=== PATIENT | male | born 1950 | race Caucasian/White ===

== ENCOUNTER 2018-06-22 08:58 | Emergency (ER) | payer MEDICARE ==
[~2018-06-22] VITALS: Ht 177.8 cm; Wt 89.4 kg
--- OUTSIDE RECORDS SUMMARY | ~2018-06-22 | XMS | Encounter Summary ---
Demographics + + + | Address | [address] | | | [place] [address] | + + + | Home Phone | | + + + | Preferred Language | Unknown | + + + | Marital Status | Single | + + + | Spiritism Affiliation | Unknown | + + + | Race | Unknown | + + + | Ethnic Group | Unknown | + + + Author + + + | Author | [facility] | | | and Jadenana | + + + | Organization | [facility] | | | and Jadenana | + + + | Address | Unknown | + + + | Phone | Unavailable | + + + Support + + +---------+ + | Name | Relationship | Address | Phone | + + +---------+ + | Triny Wu | ECON | Unknown | | + + +---------+ + Care Team Providers + +------+ + | Care Strap Cutter Name | Role | Phone | + +------+ + | Lexie Cagle | PCP | | | CHAINSTITCH FELLED SEAM OPERATOR | | | + +------+ + Reason for Visit Auth/Cert +--------+--------+ + + + + | Status | Reason | Specialty | Diagnoses / | Referred By | Referred To | | | | | Procedures | Contact | Contact | +--------+--------+ + + + + | | | | Diagnoses | | Dom, | | | | | Neurogenic | | Michael Tidwell, | | | | | bladder | | MD Padmini ARNOLD | | | | | (N31.9) | | [address] [place] | | | | | Procedures | | [place] | | | | | [place] | | [address] Phone: | | | | | INCISE/DRAIN | | [phone] | | | | | BLADDER | | Fax: | | | | | | | [phone] | +--------+--------+ + + + + Encounter Details +--------+ + + + + | Date | Type | Department | Care Team | Description | +--------+ + + + + | 06/20/ | Anesthesia | [facility] | Demarcus Veloz MD | | | 2019 | Event | [facility] | [address] | | | | | [address] | [place] | | | | | [place]CI[place] | [address] | | | | | [address] | | | | | | [phone] | | | +--------+ + + + + Anesthesia Record + + + + + | Procedure Name | Responsible | Anesthesia Start | Anesthesia Stop Time | | | Anesthesiologist | Time | | + + + + + | Cystoscopy, | Demarcus Veloz MD | 06/20/1816 | 06/20/18 0949 | | suprapubic catheter | | | | | placement (N/A | | | | | Bladder) | | | | + + + + + +----+---+ + + | Da | T | Event | Comment | | te | i | | | | | m | | | | | e | | | +----+---+ + + | 03 | 0 | An Checkout | Pre-use anesthesia machine/equipment checkout. | | /2 | 9 | | | | 7/ | 1 | | | | 20 | 6 | | | | 19 | | | | +----+---+ + + | | 0 | An Start | | | | 9 | Data | | | | 1 | | | | | 6 | | | +----+---+ + + | | 0 | An Start | Reassessment prior to anesthesia induction/procedure. | | | 9 | | | | | 1 | | | | | 6 | | | +----+---+ + + | | 0 | Antibiotic | | | | 9 | Given | | | | 1 | | | | | 6 | | | +----+---+ + + | | 0 | Preoxygenat | | | | 9 | ed | | | | 1 | | | | | 8 | | | +----+---+ + + | | 0 | An | | | | 9 | Induction | | | | 2 | | | | | 0 | | | +----+---+ + + | | 0 | An | | | | 9 | Intubation | | | | 2 | | | | | 1 | | | +----+---+ + + | | 0 | First | | | | 9 | Inc/Proc St | | | | 3 | | | | | 3 | | | +----+---+ + + | | 0 | Pre-Procedu | | | | 9 | ral Timeout | | | | 3 | Completed | | | | 5 | | | +----+---+ + + | | 0 | Breathing | | | | 9 | Spontaneous | | | | 3 | ly | | | | 8 | | | +----+---+ + + | | 0 | Extubated | | | | 9 | Deep | | | | 4 | | | | | 6 | | | +----+---+ + + | | 0 | an stop | | | | 9 | data | | | | 4 | | | | | 6 | | | +----+---+ + + | | 0 | An Stop | Patient handed off to recovery nurse. | | | 4 | | | | | 9 | | | +----+---+ + + +------+ | Meds | +------+ + +---------+ | Name | Total | + +---------+ | ondansetron | 4 mg | + +---------+ | dexamethasone | 10 mg | + +---------+ | fentaNYL injection (2 mL) | 100 mcg | + +---------+ | ceFAZolin | 2 g | + +---------+ | lactated ringers (LR) infusion | 0 mL | + +---------+ + + | Name | + + | N2O Flow Rate (L/Min) | + + | O2 Flow Rate (L/Min) | + + | Insp O2 | + + | Exp SEV | + + | Air Flow Rate (L/Min) | + + + + | No blood administrations on file. | + + +--------+ + + + | Type | Details | Placement | Removal | +--------+ + + + | Urethr | 04/19/18; 1338; indicated due to | 04/19/181338 by | | | al | specific surgical procedure; | Yaz Ayala RN | | | Cathet | Smallest Catheter, Perineum | | | | er | cleaned, Second person present; | | | | | All elements; Bag positioned | | | | | below the bladder; indwelling | | | | | single lumen catheter; latex; 18; | | | | | None; 1; 10; 10; other (see | | | | | comments) (Patient under general | | | | | anesthesia); drainage bag to | | | | | dependent drainage | | | +--------+ + + + | Urethr | 06/20/18; 924; indicated due to | 06/20/18924 by | | | al | specific surgical procedure; All | Misael Lee RN | | | Cathet | elements; All elements; All | | | | er | elements; indwelling double lumen | | | | | catheter; latex; 16; None; 1; | | | | | 10; 10; other (see comments); | | | | | drainage bag to dependent | | | | | drainage; GENERAL ANEST | | | +--------+ + + + | Wound | 06/20/18; 953; Incision; | 03/27/19 0954 by | | | | Bilateral; abdomen | Misael Lee RN | | +--------+ + + + | Periph | 06/20/18; 0837; Right; Forearm; | 06/20/18 0837 by | 06/20/18 1140 by | | eral | [id number]-mxc-[id number] catheter system; | Cate De Paz RN | Ramirez Hirsch RN | | IV | 20 gauge; 1; upper forearm; | | | | | distraction, intradermal | | | | | injection, tolerated well, | | | | | appears comfortable; 06/20/18; | | | | | 1140 | | | +--------+ + + + | Airway | Placement Date: 06/20/18; | 06/20/18920 by | 06/20/18945 by | | | Placement Time: 920 (created via | Demarcus Veloz MD | Demarcus Veloz MD | | | procedure documentation); | | | | | Attempts: 1; Airway Type: | | | | | laryngeal mask; Size: 4; Trauma: | | | | | none; Placement Check: exhaled | | | | | CO2 detection device, bilateral | | | | | chest rise; Removal Date: | | | | | 06/20/18; Removal Time: 945 | | | +--------+ + + + in this encounter Social History + +-------+ +--------+------+ | Tobacco [...] + +---------+ + | Alcohol Use | Drinks/We | oz/Week | Comments | | | ek | | | + + +---------+ + | No | | | | + + +---------+ + + + + | Sex Assigned at | Date Recorded | | | | + + + | Not on file | | + + + as of this encounter Plan of Treatment +--------+---------+ + + + | Date | Type | Specialty | Care Team | Description | +--------+---------+ + + + | 07/04/ | Office | Urology | Michael Fernandes | | | 2018 | Visit | | [address] | | | | | | [place] | | | | | | [id number] | | | | | | | | +--------+---------+ + + + | 07/04/ | Office | Internal Medicine | Lexie Cagle | | | 2018 | Visit | | [address] | | | | | | [place] [address] | | | | | | [place] [address] | | | | | | [phone] | | | | | | | | +--------+---------+ + + + as of this encounter Results Anesthesia Airway Note (06/20/2018 0929) + + + | Narrative | Performed At | + + + | Demarcus Veloz MD 06/20/2018 9:31 Anesthesia Airway | | | Placement 06/20/2018 9:21 Preprocedure check: patient identified, | | | oxygen, airway assessed, patient reassessment prior to induction, | | | airway equipment checked and suction Attempts: 1 Airway type: | | | laryngeal mask Size: 4 Cuffed: cuffed Trauma: none Tube placement | | | verification: bilateral chest rise and carbon dioxide detection | | | Performing provider: DEMARCUS VELOZ Electronically Signed by: | | | Demarcus Veloz | | | MD Esparzag | | | date/time: 06/20/2018 9:29 | | + + + + + | Procedure Note | + + | Demarcus Veloz MD - 06/20/2018 0929 PDT Anesthesia Airway Placement06/20/2018 | | 9:21Preprocedure check: patient identified, oxygen, airway assessed, patient | | reassessment prior to induction, airway equipment checked and suctionAttempts: 1Airway | | type: laryngeal maskSize: 4Cuffed: cuffedTrauma: noneTube placement verification: | | bilateral chest rise and carbon dioxide detectionPerforming provider: DEMARCUS VELOZ | | WElectronically Signed by: MD Sherice Mack date/time: | | 06/20/2018 9:29 | |Cuffed: cuffed | |Trauma: none | |Tube placement verification: bilateral chest rise and carbon dioxide detection | |Performing provider: DEMARCUS VELOZ | | | | | |Electronically Signed by: MD Sherice Mack date/time: 06/20 9:29 | | | + + in this encounter Visit Diagnoses Not on filein this encounter Administered Medications + +--------+ +------+------+------+ | Medication Order | MAR | Action | Dose | Rate | Site | | | Action | Date | | | | + +--------+ +------+------+------+ | ceFAZolin (ANCEF, KEFZOL) | Given | | 2 g | | | | injection Intravenous, PRN, | | 9 9:16 | | | | | Starting 06/20/18 at 0916, | | PDT | | | | | Anesthesia Intra-op | | | | | | + +--------+ +------+------+------+ +---+---+ | | | +---+---+ + +-------+ +-------+---+---+ | dexamethasone (PF) 10 mg/mL | Given | | 10 mg | | | | injection Intravenous, PRN, | | 9 9:28 | | | | | Starting 06/20/18 at 0928, | | PDT | | | | | Anesthesia Intra-op | | | | | | + +-------+ +-------+---+---+ +---+---+ | | | +---+---+ + +-------+ +---------+---+---+ | fentaNYL (PF) injection | Given | | 100 mcg | | | | Intravenous, PRN, Pain, Starting | | 9 9:27 | | | | | 06/20/18 at 0927, Anesthesia | | PDT | | | | | Intra-op | | | | | | + +-------+ +---------+---+---+ +---+---+ | | | +---+---+ + +---------+ +---+---+---+ | lactated ringers (LR) infusion | New Bag | | | | | | at 10-100 mL/hr, Intravenous, | | 9 9:16 | | | | | CONTINUOUS, Starting Mon06/20/18 | | PDT | | | | | at 0900, TKO. | | | | | | + +---------+ +---+---+---+ +---+---+ | | | +---+---+ + +-------+ +------+---+---+ | ondansetron (ZOFRAN) injection | Given | | 4 mg | | | | Intravenous, PRN, Nausea, | | 9 9:28 | | | | | Vomiting, Starting Mon06/20/18 at | | PDT | | | | | 0928, Anesthesia Intra-op | | | | | | + +-------+ +------+---+---+ +---+---+ | | | +---+---+ in this encounter"
--- OUTSIDE RECORDS SUMMARY | ~2018-06-22 | XMS | Encounter Summary ---
Demographics + + + | Address | [address] | | | [place] [address] | + + + | Home Phone | | + + + | Preferred Language | Unknown | + + + | Marital Status | Single | + + + | Worship Affiliation | Unknown | + + + | Race | Unknown | + + + | Ethnic Group | Unknown | + + + Author + + + | Author | [facility] | | | and Jadenana | + + + | Organization | [facility] | | | and Jadenana [...] Team Providers + +------+ + | Care Design Engineer Products Name | Role | Phone | + +------+ + | No, Physician | PCP | Unavailable | + +------+ + Encounter Details +--------+ + + + + | Date | Type | Department | Care Team | Description | +--------+ + + + + | 04/09/ | Episode | [facility] | Manju Mccartney | | | 2019 | Changes | [address] | | | | | [place] | | | | | | [address] | | | | | | [phone] | | | +--------+ + + + [...] [place] | | | | | | [id number] | | | | | | | | +--------+---------+ + + + | 07/04/ | Office | Internal Medicine | Lexie Cagle | | | 2018 | Visit | | [address] | | | | | | [place] | | | | | | [place] [address] | | | | | | [phone] | | | | | | | | +--------+---------+ + + + as of this encounter Visit Diagnoses Not on filein this encounter"
--- OUTSIDE RECORDS SUMMARY | ~2018-06-22 | XMS | Encounter Summary ---
Demographics + + + | Address | [address] | | | [place] [address] | + + + | Home Phone | | + + + | Preferred Language | Unknown | + + + | Marital Status | Single | + + + | Alevism Affiliation | Unknown | + + + | Race | Unknown | + + + | Ethnic Group | Unknown | + + + Author + + + | Author | [facility] | | | and Jadenana | + + + | Organization | [facility] | | | and Jadenana [...] Team Providers + +------+ + | Care Rolfer Name | Role | Phone | + +------+ + | Lexie Cagle | PCP | | | ENROLLMENT MANAGEMENT VICE PRESIDENT | | | + +------+ + Reason for Visit + + + | Reason | Comments | + + + | Surgery Appointment | | + + + Encounter Details +--------+ + + + + | Date | Type | Department | Care Team | Description | +--------+ + + + + | 05/02/ | Telephone | [facility] | Michael Fernandes | Surgery Appointment | | 2019 | | [address] | MD [address] | | | | | [place], [place] | [place], [place] | | | | | [address] | [address] | | | | | [phone] | | | +--------+ + + + [...] Description | +--------+---------+ + + + | // | Office | Urology | Spendlove, Michael | | | 2018 | Visit | | MD [address] | | | | | | [place] | | | | | | [address] | | | | | | | | +--------+---------+ + + + | 07/04/ | Office | Internal Medicine | Lexie Cagle | | | 2018 | Visit | | [address] | | | | | | [place] | | | | | | [place] [address] | | | | | | [phone] | | | | | | | | +--------+---------+ + + + as of this encounter Visit Diagnoses Not on filein this encounter"
--- OUTSIDE RECORDS SUMMARY | ~2018-06-22 | XMS | Encounter Summary ---
Demographics + + + | Address | [address] | | | [place] [address] | + + + | Home Phone | | + + + | Preferred Language | Unknown | + + + | Marital Status | Single | + + + | Spiritism Affiliation | Unknown | + + + | Race | Unknown | + + + | Ethnic Group | Unknown | + + + Author + + + | Author | [facility] | | | and Jadenana | + + + | Organization | [facility] | | | and Jadenana [...] Team Providers + +------+ + | Care Curing Room Worker Name | Role | Phone | + +------+ + | Lexie Cagle | PCP | | | SUPERINTENDENT LAUNDRY | | | + +------+ + Reason for Visit + + + | Reason | Comments | + + + | Post-op Question | | + + + Encounter Details +--------+ + + + + | Date | Type | Department | Care Team | Description | +--------+ + + + + | 04/23/ | Telephone | [facility] | Michael Fernandes | Post-op Question | | 2019 | | [address] | MD [address] | | | | | [place], [place] | [facility], [place] | | | | | [address] | [address] | | | | | [phone] | | | +--------+ + + + [...] Urology | Michael Fernandes | | | 2019 | Visit | | MD [address] | | | | | | [place] | | | | | | [address] | | | | | | | | +--------+---------+ + + + | 07/04/ | Office | Internal Medicine | Lexie Cagle | | | 2018 | Visit | | [address] | | | | | | [place] | | | | | | [place] [address] | | | | | | [phone] | | | | | | | | +--------+---------+ + + + as of this encounter Visit Diagnoses Not on filein this encounter"
--- OUTSIDE RECORDS SUMMARY | ~2018-06-22 | XMS | Encounter Summary ---
Demographics + + + | Address | [address] | | | [place] [address] | + + + | Home Phone | | + + + | Preferred Language | Unknown | + + + | Marital Status | Single | + + + | Voodoo Affiliation | CONFUCIANIST | + + + | Race | White | + + + | Ethnic Group | Not or | + + + Author + + + | Author | [facility] | + + + | Organization | [facility] | + + + | Address | Unknown | + + + | Phone | Unavailable | + + + Support + + +---------+ + | Name | Relationship | Address | Phone | + + +---------+ + | Theodore Marquez | ECON | Unknown | | + + +---------+ + Care Team Providers + +------+ + | Care Operations Support Manager Name | Role | Phone | + +------+ + | Jose Hameed MD | PCP | | + +------+ + Reason for Visit + + + | Reason | Comments | + + + | Scheduling | | + + + Encounter Details +--------+ + + + + | Date | Type | Department | Care Team | Description | +--------+ + + + + | 05/03/ | Telephone | Hematology/Medical | [place], | Scheduling | | 2019 | | [facility]cology at [place] | MD Colleen Nguyen | | | | | [facility] | [address] [place], | | | | | [address] | [place] [address] | | | | | Mailcode: [id number] | [phone] | | | | | [facility] | | | | | | and | | | | | | [place], [place] | | | | | | [address] | | | | | | [phone] | | | +--------+ + + + [...] | +--------+ + + + + | 07/25/ | Office | Neurology | Christian Maldonado MD | | | 2019 | Visit | | [address] | | | | | | [place], | | | | | | [place] [address] | | | | | | [phone] | | | | | | | | +--------+ + + + + | 09/21/ | Office | Ophthalmology | Ethel Romo MD | | | 2018 | Visit | | [address] | | | | | | [place] | | | | | | [address] | | | | | | [phone] | | | | | | | | +--------+ + + + + | 11/20/ | Appointment | Hematology & | Lucho Pittman [address] | | | 2019 | | Oncology | [place] | | | | | | [place] [address] | | +--------+ + + + + as of this encounter Visit Diagnoses Not on filein this encounter"
--- OUTSIDE RECORDS SUMMARY | ~2018-06-22 | XMS | Encounter Summary ---
Demographics + + + | Address | [address] | | | [place] [address] | + + + | Home Phone | | + + + | Preferred Language | Unknown | + + + | Marital Status | Single | + + + | Sikh Affiliation | Unknown | + + + | Race | Unknown | + + + | Ethnic Group | Unknown | + + + Author + + + | Author | [facility] | | | and Jadenana | + + + | Organization | [facility] | | | and [...] Team Providers + +------+ + | Care Sql Programmer Name | Role | Phone | + +------+ + | Lexie Cagle | PCP | | | PERSONAL SECRETARY | | | + +------+ + Reason for Visit + + + | Reason | Comments | + + + | Lab Order | | + + + Encounter Details +--------+ + + + + | Date | Type | Department | Care Team | Description | +--------+ + + + + | 06/01/ | Telephone | [facility] [place] [facility] | Lexie Cagle | Lab Order | | 2019 | | MEDICINE [address] | Arleen PERSONAL SECRETARY [address] | | | | | [address] [place] | [address] [place] | | | | | [place] [address] | [place] [address] | | | | | [phone] | [phone] | | | | | | | [...] | 2018 | Visit | | MD [address]admin[address] | | | | | | ST [place] | | | | | | [address] | | | | | | | | +--------+---------+ + + + | 07/04/ | Office | Internal Medicine | Lexie Cagle | | | 2019 | Visit | | [address] | | | | | | [place] | | | | | | [place] [address] | | | | | | [phone] | | | | | | | | +--------+---------+ + + + as of this encounter Visit Diagnoses Not on filein this encounter"
--- OUTSIDE RECORDS SUMMARY | ~2018-06-22 | XMS | Encounter Summary ---
Demographics + + + | Address | [address] | | | [place] [address] | + + + | Home Phone | | + + + | Preferred Language | Unknown | + + + | Marital Status | Single | + + + | Mu-Ism Affiliation | Unknown | + + + | Race | Unknown | + + + | Ethnic Group | Unknown | + + + Author + + + | Author | [facility] | | | and Jadenana | + + + | Organization | [facility] | | | and Jadenana [...] Team Providers + +------+ + | Care Logistics Engineering Manager Name | Role | Phone | + +------+ + | Lexie Cagle | PCP | | | LEAD JAVA SOFTWARE ENGINEER | | | + +------+ + Encounter Details +--------+ + + + + | Date | Type | Department | Care Team | Description | +--------+ + + + + | 06/20/ | Procedure | [facility] | | | | 2018 | Pass | [facility] | | | | | | [address] | | | | | | [place] | | | | | | [address] | | | | | | [phone] | | | +--------+ + + + [...] [place] | | | | | | [address] | | | | | | | | +--------+---------+ + + + | 07/04/ | Office | Internal Medicine | Lexie Cagle | | | 2018 | Visit | | [address] | | | | | | [place] | | | | | | [place] [address] | | | | | | [phone] | | | | | | | | +--------+---------+ + + + as of this encounter Visit Diagnoses Not on filein this encounter"
--- OUTSIDE RECORDS SUMMARY | ~2018-06-22 | XMS | Encounter Summary ---
Demographics + + + | Address | [address] | | | [place] [address] | + + + | Home Phone | | + + + | Preferred Language | Unknown | + + + | Marital Status | Single | + + + | Mandaen Affiliation | Unknown | + + + | Race | Unknown | + + + | Ethnic Group | Unknown | + + + Author + + + | Author | [facility] | | | and Jaden[place] | + + + | Organization | [facility] [...] Team Providers + +------+ + | Care Contracting Support Specialist Name | Role | Phone | + +------+ + | Lexie Cagle | PCP | | | CONCERT SINGER | | | + +------+ + Reason for Visit + + + | Reason | Comments | + + + | Follow-up | | + + + | Neurogenic Bladder | | + + + Encounter Details +--------+---------+ + + + | Date | Type | Department | Care Team | Description | +--------+---------+ + + + | 06/07/ | Office | [facility] UROLOGY | Michael Fernandes | Pyuria (Primary Dx); | | 2018 | Visit | [address] | MD Yaw [address] | Neurogenic bladder; | | | | [place], [place] | [place], [place] | Urinary | | | | [address] | [address] | incontinence without | | | | [phone] | | sensory awareness | +--------+---------+ + [...] + + + as of this encounter Last Filed Vital Signs + + + + | Vital Sign | Reading | Time Taken | + + + + | Blood Pressure | 122/60 | 06/07/2018 1352 PDT | + + + + | Pulse | - | - | + + + + | Temperature | - | - | + + + + | Respiratory Rate | - | - | + + + + | Oxygen Saturation | - | - | + + + + | Inhaled Oxygen | - | - | | Concentration | | | + + + + | Weight | 90.5 kg (199 lb 8.3 | 06/07/2018 1352 PDT | | | oz) | | + + + + | Height | 177.8 cm (5' 10") | 06/07/2018 1352 PDT | + + + + | Body Mass Index | 28.63 | 06/07/2018 1352 PDT | + + + + in this encounter Instructions Patient Instructions - Manju Mccartney RN - 06/07/2018 1330 PDTPreoperative Instruction s Your surgery with Dr. Fernandes has been scheduled for June 20, 2018 at 10:45 AM at [facility]. Please report to the Surgery and [...] you home after surgery. Call us at [phone] with any questions. [x] Pain management booklet provided to patient. in this encounter Progress Notes Michael Fernandes MD - 06/07/2018 1330 PDTFormatting of this note may be different fr om the original. Chief Complaint Patient presents with [...] bulking agent; Surgeon: Gina Fernandes MD; Location: [facility] MAIN OR GASTRIC BYPASS SURGERY 2001 2 x KNEE SURGERY Bilateral LAP BAND 2010 urinary stimulator 2005 Family History: Family History Problem Relation Age [...] UA, POC Negative Negative, 100 mg/dL Specific [place], UA, POC 1.020 1.001 - 1.030 Blood, [...] have not thoroughly proofread this note, and aitchbone breaker errors are very likely to occur. CC: Lexie Cagle APRN in this encounter Plan of Treatment +--------+---------+ + + + | Date | Type | Specialty | Care Team | Description | +--------+---------+ + + + | 07/04/ | Office | Urology | Michael Fernandes | | | 2018 | Visit | | MD Yaw [address] [place] [address] | | | | | | [place], [place] | | | | | | [address] | | | | | | | | +--------+---------+ + + + | 07/04/ | Office | Internal Medicine | Lexie Cagle | | | 2018 | Visit | | [address] | | | | | | [address] | | | | | | [place] [address] | | | | | | [phone] | | | | | | | | +--------+---------+ + + + as of this encounter Procedures + +--------+ + + + | Procedure Name | Priori | Date/Time | Associated Diagnosis | Comments | | | ty | | | | + +--------+ + + + | POCT URINALYSIS | Routin | 06/07/2018 | Pyuria | Results for this | | | e | 1354 PDT | | procedure are in the | | | | | | results section. | + +--------+ + + + | URINALYSIS, | AMPARO | 06/07/2018 | Pyuria | Results for this | | MICROSCOPIC ONLY, | | 1353 PDT | | procedure are in the | | WITH CULTURE IF | | | | results section. | | INDICATED | | | | | + +--------+ + + + in this encounter Results POCT Urinalysis Dipstick Automated (06/07/2018 1354) + + + + + | Component | Value | Ref Range | Performed At | + + + + + | Color, UA, POC | Dark Yellow (A) | Yellow, Light Yellow | | + + + + + | Clarity, UA, POC | Slightly Cloudy | | | + + + + + | Glucose, UA, POC | Negative | Negative | | + + + + + | Bilirubin, UA, POC | Negative | Negative | | + + + + + | Ketones, UA, POC | Negative | Negative, 100 mg/dL | | + + + + + | Specific [place], | 1.020 | 1.001 - 1.030 | | | UA, POC | | | | + + + + + | Blood, UA, POC | Negative | Negative | | + + + + + | pH, UA, POC | 5.5 | 5.0, 6.0, 7.0, 8.0, | | | | | 5.5, 6.5, 7.5 | | + + + + + | Protein, UA, POC | Negative | Negative | | + + + + + | Urobilinogen, UA, | 0.2 | 0.2, Negative, | | | POC | | Normal, < 0.2 mg/dL, | | | | | 1 mg/dL, < 0.2 | | | | | E.U./dl, 1.0 | | | | | E.U./dL, 0.2 mg/dL | | + + + + + | Nitrite, UA, POC | Positive (A) | Negative | | + + + + + | Leukocyte Esterase, | Trace (A) | Negative | | | UA, POC | | | | + + + + + | Reducing Substances, | | | | | Urine | | | | + + + + + | Ictotest | | Negative | | + + + + + | Remark | | | | + + + + + + + | Specimen | + + | Urine | + + Urinalysis, Microscopic Only, with Culture if Indicated (06/07/20181352) + + + + + | Component | Value | Ref Range | Performed At | + + + + + | WBC UA | 5-10 (A) | 0 - 2 /HPF | [facility] | | [facility] - | | | | | [facility] | + + + + + | RBC UA | 0-2 | 0 - 2 /HPF | [facility] | | | | | [facility] | + + + + + | SQUAMOUS EPITHELIAL | 0-2 | 0 - 2 /LPF | [facility] | | UA | | | [facility] | | | | | [facility] | + + + + + | BACTERIA UA | 4+ (A) | Negative /HPF | [facility] | | | | [facility] | [facility] | | | | | [facility] | + + + + + | HYALINE CASTS UA | 0-2 | 0 - 2 /LPF | [facility] - | | | | | [facility] | + + + + + | URINE COMMENT | Urine Culture Not | | [facility] | | | Indicated | | [facility] | [facility] - | | | | | [facility] | + + + + + + + | Specimen | + + | Urine - Urine, Clean | | Catch | + + + + + + + | Performing | Address | City/State/Zipcode | Phone Number | | Organization | | | | + + + + + | [facility] | [address] | [place] | [phone] | | [facility] | | [address] | | | - LABORATORY | | | | + + + + + in this encounter Visit Diagnoses + + | Diagnosis | + + | Pyuria - Primary | + + | Other nonspecific finding on examination of urine | + + | Neurogenic bladder | + + | Neurogenic bladder, NOS | + + | Urinary incontinence without sensory awareness | + + | Incontinence without sensory awareness | + +
--- OUTSIDE RECORDS SUMMARY | ~2018-06-22 | XMS | Encounter Summary ---
Demographics + + + | Address | [address] | | | [place] [address] | + + + | Home Phone | | + + + | Preferred Language | Unknown | + + + | Marital Status | Single | + + + | Amish Affiliation | DRUZE | + + + | Race | White | + + + | Ethnic Group | Not or | + + + Author + + + | Author | [facility] | + + + | Organization | [facility] | + + + | Address | Unknown | + + + | Phone | Unavailable | + + + Support + + +---------+ + | Name | Relationship | Address | Phone | + + +---------+ + | Theodore Marquez | ECON | Unknown | | + + +---------+ + Care Team Providers + +------+ + | Care Base Filler Operator Name | Role | Phone | + +------+ + | Jose Hameed MD | PCP | | + +------+ + Reason for Visit + + + | Reason | Comments | + + + | Immunotherapy | Ocrevus | + + + Encounter Details +--------+ + + + + | Date | Type | Department | Care Team | Description | +--------+ + + + + | 06/05/ | Hospital | Hematology/Medical | [address], [address] | | | 2019 | Encounter | Oncology at [facility] | Martín James [place], | | | | | [address] | [place] [address] | | | | | Mailcode: CH7M | | | | | | [facility] | | | | | | and Healing, 7th | | | | | | Floor [place], [place] | | | | | | [address] | | | | | | [phone] | | | +--------+ + + + [...] + + + | Blood Pressure | 136/90 | 06/05/2018 3:25 PM PDT | + + + + | Pulse | 78 | 06/05/2018 3:25 PM PDT | + + + + | Temperature | 37.3 C (99.2 F) | 06/05/2018 3:25 PM PDT | + + + + | Respiratory Rate | 14 | 06/05/2018 2:18 PM PDT | + + + + | Oxygen Saturation | 96% | 06/05/2018 3:25 PM PDT | + + + + | Inhaled Oxygen | - | - | | Concentration | | | + + + + | Weight | 88.6 kg (195 lb 4.8 | 06/05/2018 10:30 AM PDT | | | oz) | | + + + + | Height | - | - | + + + + | Body Mass Index | 28.02 | 06/05/2018 10:30 AM PDT | + + + + in this encounter Medications at Time of Discharge + + +---------+---------+ + + | Medication | Sig. | Disp. | Refills | Start | End Date | | | | | | Date | | + + +---------+---------+ + + | Cholecalciferol, | Take 5,000 Units by | | | | | | Vitamin D3, (VITAMIN | mouth once daily. | | | | | | D3) 5,000 unit oral | | | | | | | tablet | | | | | | + + +---------+---------+ + + | cyanocobalamin | Inject into the | | | 12/24/19 | | | 1,000 mcg/mL | muscle (IM). | | | 14 | | | injection solution | | | | | | + + +---------+---------+ + + | gabapentin 300 mg | Take 1 capsule by | 90 | 1 | 11/17/19 | | | oral | mouth three times | capsule | | 16 | | | capsuleIndications: | daily. Indications: | | | | | | Neuropathic Pain | NEUROPATHIC PAIN | | | | | + + +---------+---------+ + + | iron sucrose 100 | Every other month | | | 11/13/19 | | | mg iron/5 mL | | | | 15 | | | intravenous solution | | | | | | + + +---------+---------+ + + | metoprolol | Take by mouth two | | | 09/14/19 | | | tartrate 25 mg oral | times daily. | | | 18 | | | tablet | | | | | | + + +---------+---------+ + + | modafinil 200 mg | Take 1 tablet by | 60 | 5 | 05/10/19 | | | oral tablet | mouth two times | tablet | | 18 | | | | daily. | | | | | + + +---------+---------+ + + | NaCl 0.9 % solp | Inject into the | | | | | | 500 mL with iron | vein (IV) once. | | | | | | dextran 100 mg/2 mL | Every 2 months | | | | | | (50 mg/mL) soln | | | | | | + + +---------+---------+ + + | ONABOTULINUMTOXINA | by injection route | | | | | | (BOTOX INJ) | as needed | | | | | | | (neurogenic | | | | | | | bladder). | | | | | + + +---------+---------+ + + | oxyCODONE, | Take 5 mg by mouth | | | | | | immediate release, 5 | every six hours as | | | | | | mg oral tablet | needed. | | | | | + + +---------+---------+ + + | polyethylene | Mix in liquid and | | | 12/28/19 | | | glycol 17 gram/dose | drink. | | | 18 | | | oral powder | | | | | | + + +---------+---------+ + + | rOPINIRole 2 mg | Take 2 mg by mouth | | | 01/17/20 | | | oral tablet | once daily in the | | | 14 | | | | evening. | | | | | + + +---------+---------+ + + | senna (SENNA) 8.6 | Take by mouth. | | | 12/28/19 | | | mg oral tablet | | | | 18 | | + + +---------+---------+ + + | warfarin 5 mg oral | Take 5 mg by mouth | | | 12/13/19 | | | tablet | once daily. | | | 18 | | + + +---------+---------+ + + as of this encounter Progress Notes Екатерина Aldana RN - 06/05/2018 10:21 AM PDTPt here for Q 6 month Ocrevus infusion. Hep B not detected in lab draw 09/19/2016. PIV placed 22a in right forearm; no labs ordered or draw n. Pt reports no s/s of infection such as as fever, chills, antibiotic use. Pt premedicated with IV solumedrol, PO claritin and tylenol. Ocrevus infused with 0.2micron inline filter; t itrated per orders and protocol. VS monitored throughout. Pt tolerated without incident. PIV dc'd intact. Pt Alert & Oriented x3, No acute distress, Mood & affect appropriate and Rece nt & remote memory intact and discharged ambulatory and instructions have been provided. Refer to MAR and Onc Lines and Transfusions doc flowsheet for treatment details. in this encounter Plan of Treatment +--------+ + + + + | Date | Type | Specialty | Care Team | Description | +--------+ + + + + | 07/25/ | Office | Neurology | Mass, Christian, MD | | | 2019 | Visit | | [address] | | | | | | [place], | | | | | | [place] [address] | | | | | | [phone] | | | | | | | | +--------+ + + + + | 09/21/ | Office | Ophthalmology | Ethel Romo MD | | | 2019 | Visit | | [address] | | | | | | [place] | | | | | | [address] | | | | | | [phone] | | | | | | | | +--------+ + + + + | 11/20/ | Appointment | Hematology & | [address], Hem [address] | | | 2018 | | Oncology | [place], | | | | | | [place] [address] | | +--------+ + + + + as of this encounter Visit Diagnoses + + | Diagnosis | + + | Multiple sclerosis (HCC) | + + | Multiple sclerosis | + + Administered Medications + +--------+ +--------+------+------+ | Medication Order | MAR | Action | Dose | Rate | Site | | | Action | Date | | | | + +--------+ +--------+------+------+ | acetaminophen (TYLENOL) tablet | Given | | 650 mg | | | | 650 mg 650 mg, oral, ONCE, 1 | | 9 10:47 | | | | | dose, 06/05/18 at 1030 | | PDT | | | | + +--------+ +--------+------+------+ +---+---+ | | | +---+---+ + +-------+ +-------+---+---+ | loratadine (CLARITIN) tablet 10 | Given | | 10 mg | | | | mg 10 mg, oral, NEEDED, 1 | | 9 10:47 | | | | | dose, Starting Mon06/05/18 at | | PDT | | | | | 1024, Until Mon06/05/18 at 1047, | | | | | | | Give instead of diphenhydrAMINE | | | | | | | 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 | | | | | | + +-------+ +-------+---+---+ +---+---+ | | | +---+---+ + +-------+ +--------+---+---+ | methylPREDNISolone sod succ | Given | | 100 mg | | | | (PF) (SOLU-MEDROL) injection 100 | | 9 10:50 | | | | | mg 100 mg, intravenous, ONCE, 1 | | PDT | | | | | dose, Mon06/05/18 at 1030 | | | | | | + +-------+ +--------+---+---+ +---+---+ | | | +---+---+ + +---------+ +--------+ +---+ | ocrelizumab (OCREVUS) 600 mg in | New Bag | | 600 mg | 40 mL/hr | | | NaCl 0.9 % (NS) IV 600 mg, | | 9 11:34 | | | | | intravenous, ONCE, 1 dose, Tue | | PDT | | | | | 06/05/18 at 1030 | | | | | | + +---------+ +--------+ +---+ +---+---+ | | | +---+---+ in this encounter"
--- OUTSIDE RECORDS SUMMARY | ~2018-06-22 | XMS | Encounter Summary ---
Demographics + + + | Address | [address] | | | [place] [address] | + + + | Home Phone | | + + + | Preferred Language | Unknown | + + + | Marital Status | Single | + + + | Spiritism Affiliation | SPIRITISM | + + + | Race | White | + + + | Ethnic Group | Not or | + + + Author + + + | Author | [facility] | + + + | Organization | [facility] | + + + | Address | Unknown | + + + | Phone | Unavailable | + + + Support + + +---------+ + | Name | Relationship | Address | Phone | + + +---------+ + | Theodore Marquez | ECON | Unknown | | + + +---------+ + Care Team Providers + +------+ + | Care Shot Core Drill Operator Name | Role | Phone | + +------+ + | Jose Hameed MD | PCP | | + +------+ + Encounter Details +--------+ + + + + | Date | Type | Department | Care Team | Description | +--------+ + + + + | 05/03/ | Upset Welding Machine Operator | Hematology/Medical | [place], | | | 2019 | | Oncology at [place] | MD Colleen Nguyen | | | | | for [facility] & Healing | [address] [place], | | | | | [address] | [place] [address] | | | | | Mailcode: CHKatlyn | [phone] | | | | | [facility] | | | | | | and Healing, 7th | | | | | | Floor [place], [place] | | | | | | [address] | | | | | | [phone] | | | +--------+ + + + [...] | Christian Maldonado MD | | | 2018 | Visit | | [address] | | | | | | [place] | | | | | | [place] [address] | | | | | | [phone] | | | | | | | | +--------+ + + + + | 09/21/ | Office | Ophthalmology | Ethel Romo MD | | | 2019 | Visit | | [address] | | | | | | [place], [place] | | | | | | [address] | | | | | | [phone] | | | | | | | | +--------+ + + + + | 11/20/ | Appointment | Hematology & | Otu, Hem [address] | | | 2018 | | Oncology | [place] | | | | | | [place] [address] | | +--------+ + + + + as of this encounter Visit Diagnoses Not on filein this encounter"
--- OUTSIDE RECORDS SUMMARY | ~2018-06-22 | XMS | Encounter Summary ---
Demographics + + + | Address | [address] | | | [place] [address] | + + + | Home Phone | | + + + | Preferred Language | Unknown | + + + | Marital Status | Single | + + + | Christianity Affiliation | Unknown | + + + | Race | Unknown | + + + | Ethnic Group | Unknown | + + + Author + + + | Author | [facility] | | | and Jadenana | + + + | Organization | [facility] | | | and Jadenana [...] Team Providers + +------+ + | Care Shingler Name | Role | Phone | + +------+ + | Lexie Cagle | PCP | | | WELL SHOOTER | | | + +------+ + Reason for Visit + + + | Reason | Comments | + + + | Neurogenic Bladder | | + + + Encounter Details +--------+ + + + + | Date | Type | Department | Care Team | Description | +--------+ + + + + | 04/20/ | Clinical | [facility] | CalvinKendy parsonshua | Neurogenic bladder | | 2019 | Support | [address] | MD [address] | (Primary Dx) | | | | [address] | [facility] [address] | | | | | [address] | [address] | | | | | [phone] | | | +--------+ + + + [...] + + + as of this encounter Progress Rekha Banegas RN - 04/20/2018 1030 PSTPatient presents to clinic for catheter removal PO D #1. Dark yellow clear urine draining into bag. 18F chapa catheter removed without difficul ty. Patient self caths and will do so when he gets home to [place]. Patient denies pain at this time only some irritation of the tip of his penis. Pt will return for post op appointm ent and will call us with any questions or concerns in the meantime......................... ....................Rekha Wilson RN on 04/20/18 at 12:11 in this encounter Plan of Treatment +--------+---------+ + + + | Date | Type | Specialty | Care Team | Description | +--------+---------+ + + + | 07/04/ | Office | Urology | Michael Fernandes | | | 2018 | Visit | | [address] | | | | | [place] | | | | | | [address] | | | | | | | | +--------+---------+ + + + | 07/04/ | Office | Internal Medicine | Lexie Cagle | | | 2018 | Visit | | [address] | | | | | | [address] | | | | | | [place] [address] | | | | | | [phone] | | | | | | | | +--------+---------+ + + + as of this encounter Visit Diagnoses + + | Diagnosis | + + | Neurogenic bladder - Primary | + + | Neurogenic bladder, NOS | + +"
--- OUTSIDE RECORDS SUMMARY | ~2018-06-22 | XMS | Encounter Summary ---
Demographics + + + | Address | [address] | | | [place] [address] | + + + | Home Phone | | + + + | Preferred Language | Unknown | + + + | Marital Status | Single | + + + | Moravian Affiliation | BAPTISM | + + + | Race | White | + + + | Ethnic Group | Not or | + + + Author + + + | Author | [facility] | + + + | Organization | [facility] | + + + | Address | Unknown | + + + | Phone | Unavailable | + + + Support + + +---------+ + | Name | Relationship | Address | Phone | + + +---------+ + | Theodore Marquez | ECON | Unknown | | + + +---------+ + Care Team Providers + +------+ + | Care Professional Organizer Name | Role | Phone | + [...] | 2019 | Encounter | Oncology at [facility] | [address] [place], | | | | | [address] | [place] [address] | | | | | Mailcode: CH7M | | | | | | [facility] | | | | | | and Healing, 7th | | | | | | Floor [place], [place] | | | | | | [address] | | | | | | [phone] | | | +--------+ + + + [...] | | | | | | [place] [address] | | | | | | [phone] | | | | | | | | +--------+ + + + + | 09/21/ | Office | Ophthalmology | Ethel Romo MD | | | 2019 | Visit | | [address] | | | | | | [place] | | | | | | [address] | | | | | | [phone] | | | | | | | | +--------+ + + + + | 11/20/ | Appointment | Hematology & | [address], [address] | | | 2018 | | Oncology | [place], | | | | | | [place] [address] | | +--------+ + + + + [...] | 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
--- OUTSIDE RECORDS SUMMARY | ~2018-06-22 | XMS | Encounter Summary ---
Demographics + + + | Address | [address] | | | [place] [address] | + + + | Home Phone | | + + + | Preferred Language | Unknown | + + + | Marital Status | Single | + + + | Episcopal Affiliation | Unknown | + + + | Race | Unknown | + + + | Ethnic Group | Unknown | + + + Author + + + | Author | [facility] | | | and Jadenana | + + + | Organization | [facility] | | | and [...] Team Providers + +------+ + | Care Nematology Teacher Name | Role | Phone | + +------+ + | Lexie Cagle | PCP | | | TUBING SUPERVISOR | | | + +------+ + [...] [place] | | | | | [place] | | [address] Phone: | | | | | INCISE/DRAIN | | [phone] | | | | | BLADDER | | Fax: | | | | | | | [phone] | +--------+--------+ + + + + Encounter Details +--------+ + + + + | Date | Type | Department | Care Team | Description | +--------+ + + + + | 06/20/ | Hospital | [facility] | Michael Fernandes | Neurogenic bladder; | | 2019 | Encounter | MED CTR OR INTRA OP | MD [address] | Urge incontinence | | | | [address] | [place], [place] | | | | | [place], [place] | [address] | | | | | [address] | | | | | | [phone] | | | +--------+ + + + [...] | Blood Pressure | 127/77 | 06/20/2018 1030 PDT | + + + + | Pulse | 68 | 06/20/20180 PDT | + + + + | Temperature | 36.2 C (97.2 F) | 06/20/2018 0948 PDT | + + + + | Respiratory Rate | 14 | 06/20/20181029 PDT | + + + + | Oxygen Saturation | 97% | 06/20/20181029 PDT | + + + + | Inhaled Oxygen | - | - | | Concentration | | | + + + + | Weight | 90.6 kg (199 lb 11.8 | 06/20/2018731 PDT | | | oz) | | + + + + | Height | 177.8 cm (5' 10") | 06/20/2018731 PDT | + + + + | Body Mass Index | 28.66 | 06/20/2018731 PDT | + + + + in this encounter Discharge Instructions Ramirez Hirsch RN - 06/20/2018Anil/Ashley in the office July 04July shower tomorrow, replace sterile dressings if needed May use leg bagin this encounter Medications at Time of Discharge + + +--------+---------+ + + | Medication | Sig. | Disp. | Refills | Start | End Date | | | | | | Date | | + + +--------+---------+ + + | DULoxetine | Take 90 mg by mouth | | | 03/30/19 | | | (CYMBALTA) [address] | Daily. | | | 19 | | | capsule | | | | | | + + +--------+---------+ + + | Ergocalciferol | daily | | | | | | (VITAMIN D2) 2000 | | | | | | | units TABS | | | | | | + + +--------+---------+ + + | | Take 1-2 tablets by | 15 | 0 | 06/21/19 | | | HYDROcodone-acetamin | mouth every 4 hours | tablet | | 19 | 9 | | ophen (NORCO) 5-325 | as needed for Pain | | | | | | mg per tablet | for up to 3 days. | | | | | + + +--------+---------+ + + | rOPINIRole | Take 1 tablet by | 90 | 1 | 06/02/19 | | | (REQUIP) 2 MG | mouth nightly. | tablet | | 19 | | | tabletIndications: | | | | | | | RLS (restless legs | | | | | | | syndrome) | | | | | | + + +--------+---------+ + + | traZODone | Take 1 tablet by | 30 | 0 | 06/02/19 | | | (DESYREL) 100 mg | mouth nightly. | tablet | | 19 | | | tabletIndications: | | | | | | | Anxiety associated | | | | | | | with depression | | | | | | + + +--------+---------+ + + as of this encounter Plan [...] [place] | | | | | | [id number] | | | | | | | | +--------+---------+ + + + | 07/04/ | Office | Internal Medicine | Lexie Cagle | | | 2019 | Visit | | [address] | | | | | | [address] | | | | | | [place] [address] | | | | | | [phone] | | | | | | | | +--------+---------+ + + + as of this encounter Procedures + +--------+ + + + | Procedure Name | Priori | Date/Time | Associated Diagnosis | Comments | | | ty | | | | + +--------+ + + + | INSERT SUPRAPUBIC | | 06/20/2018 | Neurogenic bladder | | | CATHETER | | 0855 PDT | (N31.9) | | + +--------+ + + + in this encounter Visit Diagnoses + + | Diagnosis | + + | Neurogenic bladder | + + | Neurogenic bladder, NOS | + + | Urge incontinence | + + Admitting Diagnoses + + | Diagnosis | + + | Neurogenic bladder (N31.9) | + + Administered Medications + +--------+---------+------+------+------+ | Medication Order [...] 8 hours after | | | pre-op dose. | | + +---+ | | | [...] or COPD | | | or current smoking. | | + +---+ | | | + +---+ | atropine 0.1 mg/mL syringe 0.5 | | | mg 0.5 mg, Intravenous, PRN, | | | Bradycardia, For HR < 40, | | | Starting 06/20/18 at 0942, For | | | 2 doses, May repeat one time | | | after 1 min. | | + +---+ | | | [...] once | | | blood glucose > 70. | | + +---+ | | | [...] | | | once blood glucose > 70. | | + +---+ | | | + +---+ | ePHEDrine 50 mg/mL injection 5 | | | mg 5 mg, Intravenous, EVERY 5 | | | MIN PRN, if SBP <90., Starting | | | 06/20/18 at 0942, Hold if HR > | | | 100. Maximum total dose 20mg. | | + +---+ | | | + +---+ + +---------+ +-----+-------+---+ | ertapenem (INVanz) 1 g in | New Bag | | 1 g | 100 | | | sodium chloride 0.9% 50 mL IVPB | | 9 11:20 | | mL/hr | | | 1 g, Intravenous, Administer over | | PDT | | | | | 30 Minutes, ONCE, Mon06/20/18 at | | | | | | | 1130, For 1 dose, Activate | | | | | | | system and mix before use. | | | | | | + [...] | hydromorphone if morphine | | | ineffective. | | + +---+ | | | [...] interval. Use | | | Pasero Sedation Scale. | | + +---+ | | | [...] use hydromorphone if morphine | | | ineffective. | | + +---+ | | | [...] | | | Administer with food or snack | | + +---+ | | | [...] interval. Use Pasero | | | Sedation Scale. | | + +---+ | | | + +---+ in this encounter
--- OUTSIDE RECORDS SUMMARY | ~2018-06-22 | XMS | Encounter Summary ---
Demographics + + + | Address | [address] | | | [place] [address] | + + + | Home Phone | | + + + | Preferred Language | Unknown | + + + | Marital Status | Single | + + + | Anglican Affiliation | Unknown | + + + | Race | Unknown | + + + | Ethnic Group | Unknown | + + + Author + + + | Author | [facility] | | | and Jadenana | + + + | Organization | [facility] | | | and Jadenana [...] Team Providers + +------+ + | Care Servicing Manager Name | Role | Phone | + +------+ + | No, Physician | PCP | Unavailable | + +------+ + Encounter Details +--------+ + + + + | Date | Type | Department | Care Team | Description | +--------+ + + + + | 04/19/ | Anesthesia | [facility] | Parker Hendricks | | | 2019 | Event | MED CTR OR INTRA OP | MD Chuckie [address] | | | | | [address] | [address] [place] | | | | | [place] | [address] | | | | | [address] | | | | | | [phone] | | | +--------+ + + + + Anesthesia Record + + + + + | Procedure Name | Responsible | Anesthesia Start | Anesthesia Stop Time | | | Anesthesiologist | Time | | + + + + + | Cystoscopy, bladder | Parker Hendricks, | 04/19/18 1246 | 04/19/18 1353 | | Botox, injection of | MD | | | | urethral bulking | | | | | agent (N/A Bladder) | | | | + + + + + +----+---+ + + | Da | T | Event | Comment | | te | i | | | | | m | | | | | e | | | +----+---+ + + | 01 | 1 | An Checkout | Pre-use anesthesia machine/equipment checkout. | | /2 | 2 | | | | 4/ | 3 | | | | 20 | 1 | | | | 19 | | | | +----+---+ + + | | 1 | An Start | Versed 2 mg IV in SDS 7 then to OR 6 with sedated patient. | | | 2 | | Reassessment prior to anesthesia induction/procedure. | | | 4 | | | | | 6 | | | +----+---+ + + | | 1 | an eneida now | | | | 2 | | | | | 4 | | | | | 7 | | | +----+---+ + + | | 1 | Antibiotic | | | | 2 | Given | | | | 4 | | | | | 8 | | | +----+---+ + + | | 1 | Preoxygenat | | | | 2 | ed | | | | 5 | | | | | 2 | | | +----+---+ + + | | 1 | An | | | | 2 | Induction | | | | 5 | | | | | 5 | | | +----+---+ + + | | 1 | An | | | | 2 | Intubation | | | | 5 | | | | | 6 | | | +----+---+ + + | | 1 | AN Bite | | | | 2 | Block | | | | 5 | | | | | 6 | | | +----+---+ + + | | 1 | [place] | | | | 2 | 43-degrees | | | | 5 | | | | | 8 | | | +----+---+ + + | | 1 | Pre-Procedu | | | | 3 | ral Timeout | | | | 0 | Completed | | | | 1 | | | +----+---+ + + | | 1 | First | | | | 3 | Inc/Proc St | | | | 1 | | | | | 0 | | | +----+---+ + + | | 1 | [place] off | | | | 3 | | | | | 5 | | | | | 1 | | | +----+---+ + + | | 1 | Extubated | | | | 3 | Awake | | | | 5 | | | | | 1 | | | +----+---+ + + | | 1 | An Stop | Patient handed off to recovery nurse. | | | 5 | | | | | 3 | | | +----+---+ + + +------+ | Meds | +------+ + + + | Name | Total | + + + | midazolam | 2 mg | + + + | propofol | 150 mg | + + + | propofol | 196.51 mg | + + + | lidocaine 2% (PF) | 60 mg | + + + | HYDROmorphone | 1.5 mg | + + + | ertapenem (INVanz) 1 g in sodium | 1 g | | chloride 0.9% 50 mL IVPB | | + + + | ePHEDrine (AKOVAZ) injection 50 | 20 mg | | mg/mL | | + + + | lactated ringers (LR) infusion | 400 mL | + + + + + | Name | + + [...] + + + | Urethr | 04/19/18; 1339; indicated due to | 04/19/18 1339 by | | | al | specific [...] +--------+ + + + | Periph | 04/19/18; 1231; Right; | 04/19/18 1231 by | 04/19/18 1513 by Cricket | | eral | Antecubital; [id number] | Bernadette Holland, | Nik Kathleen RN | | IV | catheter system; 20 gauge; | RN | | | | Hematology; 2; left forearm, left | | | | | AC; distraction, intradermal | | | | | injection, tolerated well; | | | | | 04/19/18; 1513 | | | +--------+ + + + | Airway | Placement Date: 04/19/18; | 04/19/18 1256 by | 04/19/18 1351 by | | | Placement Time: 1256; Mask | Parker Hendricks, | Parker Hendricks, | | | Ventilation: EZ; Airway Type: | MD | MD | | | laryngeal mask, non-disposable; | | | | | Size: 5; Tube Reference Point: | | | | | secure and patent; Trauma: none; | | | | | Placement Check: breath sounds | | | | | equal bilaterally, bilateral | | | | | chest rise, exhaled CO2 detection | | | | | device; Removal Date: 04/19/18; | | | | | Removal Time: 1351 | | | +--------+ + + + | Wound | 04/19/18; 1307; Incision; | 04/19/18 1307 by | 04/19/18 1513 by Cricket | | | Bilateral; penis; 04/19/18; 1513 | Yaz Ayala RN | Nik Kathleen RN | +--------+ + + + in this [...] [place] | | | | | | [address] | | | | | | | | +--------+---------+ + + + | 07/04/ | Office | Internal Medicine | Lexie Cagle | | | 2018 | Visit | | [address] | | | | | | [address] | | | | | | [place] [address] | | | | | | [phone] | | | | | | | | +--------+---------+ + + + as of this encounter Visit Diagnoses Not on filein this encounter Administered Medications + +--------+ +-------+------+------+ | Medication Order | MAR | Action | Dose | Rate | Site | | | Action | Date | | | | + +--------+ +-------+------+------+ | ePHEDrine (AKOVAZ) 50 mg/mL | Given | | 10 mg | | | | injection Intravenous, PRN, | | 9 13:10 | | | | | Starting [facility] 04/19/18 at 1312, | | PST | | | | | Anesthesia Intra-op | | | | | | + +--------+ +-------+------+------+ +-------+ +-------+---+---+ | Given | | 10 mg | | | | | 9 13:12 | | | | | | PST | | | | +-------+ +-------+---+---+ +---+---+ | | | +---+---+ + +---------+ +-----+---+---+ | ertapenem (INVanz) 1 g in | New Bag | | 1 g | | | | sodium chloride 0.9% 50 mL IVPB | | 9 12:48 | | | | | 1 g, Intravenous, Administer over | | PST | | | | | 30 Minutes, Prior to Incision, | | | | | | | Starting [facility] 04/19/18 at 0319, For | | | | | | | 1 dose, Activate system and mix | | | | | | | before use. | | | | | | + +---------+ +-----+---+---+ +---+---+ | | | +---+---+ + +-------+ +--------+---+---+ | HYDROmorphone (DILAUDID) 2 | Given | | 0.5 mg | | | | mg/mL injection Intravenous, | | 9 13:00 | | | | | PRN, Pain, Starting [facility] 04/19/18 | | PST | | | | | at 1300, Anesthesia Intra-op | | | | | | + +-------+ +--------+---+---+ +-------+ +--------+---+---+ | Given | | 0.5 mg | | | | | 9 13:23 | | | | | | PST | | | | +-------+ +--------+---+---+ | Given | | 0.5 mg | | | | | 9 13:34 | | | | | | PST | | | | +-------+ +--------+---+---+ +---+---+ | | | +---+---+ + +-------+ +-------+---+---+ | lidocaine (PF) 2% injection | Given | | 60 mg | | | | PRN, Starting [facility] 04/19/18 at | | 9 12:55 | | | | | 1255, Anesthesia Intra-op | | PST | | | | + +-------+ +-------+---+---+ +---+---+ | | | +---+---+ + +-------+ +------+---+---+ | midazolam (VERSED) 1 mg/mL | Given | | 2 mg | | | | injection Intravenous, PRN, | | 9 12:45 | | | | | Anxiety, Starting Jemma 04/19/18 at | | PST | | | | | 1245, Anesthesia Intra-op | | | | | | + +-------+ +------+---+---+ +---+---+ | | | +---+---+ + +-------+ +--------+---+---+ | propofol (DIPRIVAN) injection | Given | | 150 mg | | | | Intravenous, PRN, Starting Jemma | | 9 12:55 | | | | | 04/19/18 at 1255, Anesthesia | | PST | | | | | Intra-op | | | | | | + +-------+ +--------+---+---+ +---+---+ | | | +---+---+ + +---------+ + +-------+---+ | propofol (DIPRIVAN) injection | New Bag | | 50 | 27.4 | | | Intravenous, CONTINUOUS PRN, | | 9 13:02 | mcg/kg/m | mL/hr | | | Starting Jemma 04/19/18 at 1302, | | PST | in | | | | Anesthesia Intra-op | | | | | | + +---------+ + +-------+---+ +---+---+ | | | +---+---+ in this encounter"
--- OUTSIDE RECORDS SUMMARY | ~2018-06-22 | XMS | Encounter Summary ---
Demographics + + + | Address | [address] | | | [place] [address] | + + + | Home Phone | | + + + | Preferred Language | Unknown | + + + | Marital Status | Single | + + + | Hinduism Affiliation | Unknown | + + + | Race | Unknown | + + + | Ethnic Group | Unknown | + + + Author + + + | Author | [facility] | | | and Jadenana | + + + | Organization | [facility] | | | and Jadenana [...] Team Providers + +------+ + | Care Dress Fitter Name | Role | Phone | + +------+ + | Lexie Cagle | PCP | | | FITNESS SALES CONSULTANT | | | + +------+ + Encounter Details +--------+ + + + + | Date | Type | Department | Care Team | Description | +--------+ + + + + | 06/01/ | Hospital | [facility] | Lexie Cagle | Acute pain of left | | 2019 | Encounter | [facility] [place] [facility] | [address] | knee; Chronic pain | | | | [address] [place] | [address] [place] | of right knee | | | | [place], [place] | [place] [address] | | | | | [address] | [phone] | | | | | [phone] | | | +--------+ + + + [...] + + + as of this encounter Medications at Time of Discharge + + +---------+---------+ + + | Medication | Sig. | Disp. | Refills | Start | End Date | | | | | | Date | | + + +---------+---------+ + + | DULoxetine | Take 90 mg by mouth | | | 03/30/19 | | | (CYMBALTA) [address] | Daily. | | | 19 | | | capsule | | | | | | + + +---------+---------+ + + | Ergocalciferol | daily | | | | | | (VITAMIN D2) 1999 | | | | | | | units TABS | | | | | | + + +---------+---------+ + + | | Take 1-2 tablets [...] + + +---------+---------+ + + | rOPINIRole | Take 1 tablet by | 90 | 1 | 06/02/19 | | | (REQUIP) 2 MG | mouth nightly. | tablet | | 19 | | | tabletIndications: | | | | | | | RLS (restless legs | | | | | | | syndrome) | | | | | | + + +---------+---------+ + + | traZODone | Take 1 tablet by | 30 | 0 | 06/02/19 | | | (DESYREL) 100 mg | mouth nightly. | tablet | | 19 | | | tabletIndications: | | | | | | | Anxiety associated | | | | | | | with depression | | | | | | + + +---------+---------+ + + | celecoxib | Take 1 [...] + +---------+---------+ + + | cyanocobalamin | 1,000 mcg. | | | | | | (VITAMIN B-12) 1,000 | | | | | 9 | | mcg/mL injection | | | | | | + + +---------+---------+ + + | OXYBUTYNIN | Take 1 tablet by | | | 07/05/19 | | | CHLORIDE PO | mouth. Patient | | | 15 | 9 | | | taking 15 mg daily | | | | | + + +---------+---------+ + + as of this encounter Plan of Treatment +--------+---------+ + + + | Date | Type | Specialty | Care Team | Description | +--------+---------+ + + + | 07/04/ | Office | Urology | Michael Fernandes | | | 2019 | Visit | | [address] | | | | | | [facility] [place] | | | | | | [address] | | | | | | | | +--------+---------+ + + + | 07/04/ | Office | Internal Medicine | Lexie Cagle | | | 2019 | Visit | | [address] | | | | | | [address] [place] | | | | | | [place] [address] | | | | | | [phone] | | | | | | | [...] this | | VW | e | 1509 PST | right knee | procedure are in the | | | | | | results section. | + +--------+ + + + | XR KNEE LEFT 1 - 2 | Routin | 06/01/2018 | Acute pain of left | Results for this | | VW | e | 1509 PST | knee | procedure are in the | | | | | | results section. | + +--------+ + + + in this encounter Results XR Knee Right 1 - 2 Vw (06/01/2018 1509) + + + | Narrative | Performed [...] | Meet, Rad Results In - 06/01/2018 1518 PST XR KNEE RIGHT 1 - 2 [...] Knee Left 1 - 2 Vw (06/01/2018 1509) + + + | Narrative | Performed [...] of left knee. Dictated and Signed by: | | | Damon Shore MD Electronically signed: 06/01/2018 3:15 PM | | + + + + + | Procedure Note | + + | Meet, Rad Results In - 06/01/2018 1518 PST XR KNEE LEFT 1 - 2 [...] | | | + +---------+ + + in this encounter Visit Diagnoses + + | Diagnosis | + + | Acute pain of left knee | + + | Chronic pain of right knee | + +"
--- OUTSIDE RECORDS SUMMARY | ~2018-06-22 | XMS | Clinical Summary ---
Demographics + + + | Address | [address] | | | [place] [address] | + + + | Home Phone | | + + + | Preferred Language | Unknown | + + + | Marital Status | Single | + + + | Congregation Affiliation | Unknown | + + + | Race | Unknown | + + + | Ethnic Group | Unknown | + + + Author + + + | Author | [facility] | | | and Jadenana | + + + | Organization | [facility] | | | and Jadenana [...] Team Providers + +------+ + | Care Marketing Services Coordinator Name | Role | Phone | + +------+ + | Lexie Cagle | PP | | | ACID CRANE OPERATOR | | | + +------+ + Allergies No Known Allergies Current Medications + + +---------+---------+------+------+-------+ | Prescription | Sig. | Disp. | Refills | Star | End | Statu | | | | | | t | Date | s | | | | | | Date | | | + + +---------+---------+------+------+-------+ | DULoxetine | Take 90 mg by mouth | | | 01/0 | | Activ | | (CYMBALTA) [address] | Daily. | | | 4/20 | | e | | capsule | | | | 19 | | | + + +---------+---------+------+------+-------+ | Ergocalciferol | daily | | | | | Activ | | (VITAMIN D2) 1999 | | | | | | e | | units TABS | | | | | | | + + +---------+---------+------+------+-------+ | traZODone | Take 1 tablet by | 30 | 0 | 03/0 | | Activ | | (DESYREL) 100 mg | mouth nightly. | tablet | | 11/13 | | e | | tabletIndications: | | | | 19 | | | | Anxiety associated | | | | | | | | with depression | | | | | | | + + +---------+---------+------+------+-------+ | rOPINIRole | Take 1 tablet by | 90 | 1 | 03/0 | | Activ | | (REQUIP) 2 MG | mouth nightly. | tablet | | 20 | | e | | tabletIndications: | | | | 19 | | | | RLS (restless legs | | | | | | | | syndrome) | | | | | | | + + +---------+---------+------+------+-------+ | | Take 1-2 tablets by | 15 | 0 | 03/2 | 03/3 | Activ | | HYDROcodone-acetamin | mouth every 4 hours | tablet | | /20 | 0/20 | e | | ophen (NORCO) 5-325 | as needed for Pain | | | 19 | 19 | | | mg per tablet | for up to 3 days. | | | | | | + + +---------+---------+------+------+-------+ | traZODone | Take 100 mg by mouth | | | 01/0 | 03/0 | Disco | | (DESYREL) 100 mg | nightly. | | | 07/14 | 8/20 | ntinu | | tablet | | | | 19 | 19 | ed | + + +---------+---------+------+------+-------+ | OXYBUTYNIN | Take 1 tablet by | | | 04/1 | 03/2 | Disco | | CHLORIDE PO | mouth. Patient | | | 0/20 | 6/20 | ntinu | | | taking 15 mg daily | | | 15 | 19 | ed | + + +---------+---------+------+------+-------+ | | Take 1-2 tablets by | 10 | 0 | 01/2 | 03/0 | Disco | | HYDROcodone-acetamin | mouth every 4 hours | tablet | | 4/20 | 8/20 | ntinu | | ophen (NORCO) 5-325 | as needed for Pain. | | | 19 | 19 | ed | | mg per tablet | | | | | | | + + +---------+---------+------+------+-------+ | cyanocobalamin | 1,000 mcg. | | | | 03/2 | Disco | | (VITAMIN B-12) 1,000 | | | | | 6/20 | ntinu | | mcg/mL injection | | | | | 19 | ed | + + +---------+---------+------+------+-------+ | econazole 1% cream | econazole 1 % | | | | 03/0 | Disco | | | topical cream | | | | 8/20 | ntinu | | | | | | | 19 | ed | + + +---------+---------+------+------+-------+ | rOPINIRole | Take 2 mg by mouth | | | | 03/0 | Disco | | (REQUIP) 2 MG tablet | as needed. | | | | 8/20 | ntinu | | | | | | | 19 | ed | + + +---------+---------+------+------+-------+ | celecoxib | Take 1 capsule by | 60 | 2 | 03/0 | 03/2 | Disco | | (CELEBREX) 100 mg | mouth Twice daily | capsule | | 8/20 | 6/20 | ntinu | | capsuleIndications: | as needed for Pain. | | | 19 | 19 | ed | | Acute pain of left | | | | | | | | knee, Chronic pain | | | | | | | | of right knee, Left | | | | | | | | hand pain | | | | | | | + + +---------+---------+------+------+-------+ Active Problems + + + | Problem | Noted Date | + + + | H/O Kidney stones | 04/03/2018 | + + + + + | Overview: Overview: Chronic; noted incidentally on 10/2017 | | ultrasound (also remote h/o kidney stone) | + + + + + | Disi (dorsal intercalated segment instability), left | 12/21/2017 | + + + + + | Overview: Overview: | | Added automatically from request for surgery [id number] | + + + + + | Scapholunate dissociation of left wrist | 12/21/2017 | + + + + + | Overview: Overview: | | Added automatically from request for surgery [id number] | + + + + + | RLQ abdominal pain | 12/07/2017 | + + + + + | Overview: Overview: History of Present Illness (12/07/2017)ER | | f/u after 2 -3 wks of recurring RLQ abd pain.Pt was asx'atic by | | time he was in ER 12/03/2017 but pain does get severe.Urinalysis & | | culture from ER grew 40,000 cfu/ml Streptococcus agalactiae, | | Group B, beta hemolytic He has been started on PCN(he was treated | | with PCN for same bacterial infection last month.He underwent | | abd CT a few days prior to ER visit as part of evaluation of | | hypoglycemia (where labs pointed towards concern for an | | insulinoma after a routine chem panel revealed a mid-30's | | glucose. CT revealed no pancrease pathology but did | | show:Nonobstructing calculus in the lower pole of the right | | kidney measuring 1.2 x 0.7 cm.PMH:--kidney stone--MS w/ | | neurogenic bladderLast Assessment & Plan: DDX includes | | intermittently obstructing kidney stone.Less likely: ischemic | | bowel.Recommendations include: --See urologist adele--Consider GI | | consult | | | |Last Assessment & Plan: | |DDX includes intermittently obstructing kidney stone. | |Less likely: ischemic bowel. | | | |Recommendations include: | |--See urologist adele | |--Consider GI consult | + + + + + | Acute cystitis without hematuria | 11/10/2017 | + + + + + | Overview: Overview: | | 11/10/2017 UTI: strep agalacticae | | PCN started | + + + + + | Opiate overdose (HCC) | 09/28/2017 | + + + + + | Overview: Overview: | | ER visit 09/13/2017 for intentional OD due to depression. | | | | Overview: | | ER visit 09/13/2017 for intentional OD due to depression. | + + + + + | Skin lesion | 09/28/2017 | + + + + + | Overview: Overview: History of Present Illness (09/28/2017)Skin | | lesion on left neck region x 2 yrsLast Assessment & Plan: Please | | make appointment for consultation with dermatology (call them in | | a week if you have not heard from them; see referral). | | | |Last Assessment & Plan: | |Please make appointment for consultation with dermatology | |(call them in a week if you have not heard from them; see referral). | + + + + + | Paroxysmal atrial fibrillation (HCC) | 09/18/2017 | + + + + + | Overview: Overview: Onset 08/2017Ris assessment: | | [id number] = 1; 08/2017Unaffordable treatment: Eliquis | | (fatigue)Past treatment: metoprolol for rate controlCurrent | | treatment:--rate control: No rx--stroke prevention meds: | | Warfarin--rhythm control:Followed by cardiologyHistory of Present | | Illness (12/07/2017)Pt is being transition from Eliquis to | | Warfarin. Pt states today the reason is cost.Last Assessment & | | Plan: Referral sent to ACCOverview: Onset 08/2017Risk assessment: | | [id number] = 1; 08/2017Unaffordable treatment: Eliquis | | (fatigue)Past treatment: metoprolol for rate controlCurrent | | treatment:--rate control: No rx--stroke prevention meds: | | Warfarin--rhythm control:Followed by cardiologyHistory of Present | | Illness (12/07/2017)Pt is being transition from Eliquis to | | Warfarin. Pt states today the reason is cost.Last Assessment & | | Plan: Referral sent to [facility] | |Referral sent to [facility] | | | |Overview: | |Onset 08/2017 | |Risk assessment: [id number] = 1; 08/2017 | |Unaffordable treatment: Eliquis (fatigue) | |Past treatment: metoprolol for rate control | |Current treatment: | |--rate control: No rx | |--stroke prevention meds: Warfarin | |--rhythm control: | |Followed by cardiology | | | |History of Present Illness (12/07/2017) | |Pt is being transition from Eliquis to Warfarin. Pt states today the reason is cost. | | | |Last Assessment & Plan: | |Referral sent to [facility] | + + + + + | Chronic right-sided low back pain without sciatica | 06/29/2017 | + + + + + | Overview: Overview: History of Present Illness | | (06/29/2017)Persisting low back painLast Assessment & Plan: Please | | make appointment for consultation with tube wrapper (call them in | | a week if you have not heard from them; see referral). | | | |Last Assessment & Plan: | |Please make appointment for consultation with tube wrapper | |(call them in a week if you have not heard from them; see referral). | + + + + + | History of pyelonephritis | 01/26/2017 | + + + | Recurrent UTI | 01/26/2017 | + + + + + | Overview: Overview: | | | | History of Present Illness (01/26/2017) | | Recent pyelonephritis. | | +neurogenic bladder from MS requiring self-cath | | +fatigue currently but no fever | | | | Last Assessment & Plan: | | R/O recurrent UTI | + + +-------+ + | Tired | 01/26/2017 | +-------+ + + + | Overview: Overview: History of Present Illness | | (06/29/2017)Chronic fatigue much worse over the last couple | | months.He relates it to - timing-vitale - the start of Eliquis.His | | machine sander has suggested trying to change to warfarin.His | | metoprolol has been stopped by cardiology (bradycardia)He had | | recent cbc done [facility] which ruled out anemiaHe went | | off his provigil (for chronic fatigue) several months ago (well | | before onset of this worsening of his fatigue).He does not feel | | his chronic depression is worse (and he just saw his psychiatrist | | who feels the same).Last Assessment & Plan: Possible causes | | include medication side effect (not common side effect with | | Eliquis thought), thyroid disorder or urinary tract | | infection.Recommendations include: Go ahead with plan to change | | anticoagulation regimen from Eliquis to WafarinI'll check labs | | today to look for other causesLet me know if not improving with | | the medicine change | |Let me know if not improving with the medicine change | + + + + + | Change in bowel habits | 07/20/2016 | + + + | Acute pain of left knee | 06/28/2016 | + + + + + | Overview: Last Assessment & Plan: | | Start straight leg raise exercises | | Please start physical therapy. | | Call them in a few days if you have not heard from them | | (see referral for contact information). | + + + + + | Hypoglycemia | 03/18/2016 | + + + + + | Overview: Overview: Recurring; likely due to poor eating and | | bariatric surgery.Glu = 30's; 10/2017; w/ elevated levels of | | insulin, c-peptide; neg insulin antibody.Abd CT negHistory of | | Present Illness (12/07/2017)Evaluation of spontaneous hypoglycemia | | pointed towards insulinoma but recent abd CT did not reveal any | | pancrease mass.I have recommended a glucometer to measureLast | | Assessment & Plan: Pt will monitor glucose, especially when | | feeling tired.Follow-up depends upon those results. | |I have recommended a glucometer to measure | | | |Last Assessment & Plan: | |Pt will monitor glucose, especially when feeling tired. | |Follow-up depends upon those results. | + + + + + | Left hand pain | 03/18/2016 | + + + + + | Overview: Overview: History of Present Illness | | (06/29/2017)Persisting left arm pain since 2015He has not wanted to | | do PT07/26/2017 Update: hand surgeon's note:I believe on his left | | wrist he appears to have findings consistent with de Quervain's | | disease as well as CMC joint arthritis. Primary concerning pain | | and discomfort as well as the symptoms all appear to be related | | to his de Quervain's tendinitis and I recommend a steroid | | injection and treatment of this area first. I then recommended | | follow-up in 1 month for reevaluation and consideration for trial | | steroid injection of the left thumb carpometacarpal joint. In | | addition I also recommended x-rays of both hands to help stage | | the degenerative conditions present in either hand.Last | | Assessment & Plan: Please make appointment for consultation with | | hand specialist (call them in a week if you have not heard from | | them; see referral). | + + + + + | Overweight (BMI 25.0-29.9) | 03/18/2016 | + + + + + | Overview: Overview: Formatting of this note may be different | | from the original.ChronicComorbidities: OSAPast treatment: | | bariatric surg x 2 (Benito-en-Y in 2001 in [place]; lap band in 2012 | | in [place], [place]; Dr. Fountain)History of Present | | Illness (11/09/2017)11/09/2017 Body mass index is 28.57 kg/m .Wt | | Readings from Last 3 Encounters: 11/09/17 90.3 kg (199 lb 1.6 oz) | | 10/11/17 89.8 kg (198 lb) 09/28/17 88.7 kg (195 lb 8 oz) | |11/09/2017 Body mass index is 28.57 kg/m . | | | |Wt Readings from Last 3 Encounters: | |11/09/17 90.3 kg (199 lb 1.6 oz) | |10/11/17 89.8 kg (198 lb) | |09/28/17 88.7 kg (195 lb 8 oz) | + + + + + | Vitamin D deficiency | 03/14/2016 | + + + | Psychophysiological insomnia | 01/19/2016 | + + + + + | Overview: Overview: | | Chronic | | Comorbidities: RLS, MS and chronic fatigue on Provigil | | Current treatment: Trazodone | + + + + + | Obstructive sleep apnea on CPAP | 12/29/2015 | + + + + + | Overview: Non-Compliant on CPAP, therefore, Untreated CHRISTEN | + + + + + | Macrocytosis | 10/06/2015 | + + + + + | Overview: Overview: | | Chronic | | Evaluation: Nl folate; B12; no alcohol | + + + + + | Chronic fatigue disorder | 10/05/2015 | + + + + + | Overview: Overview: Chronic (started 2014)Evaluation: Nl | | cbc, cmp, tsh, B12, testosterone, neg ACTH-stim | | testComorbidities: Depression, MS, sleep apneaUnaffordable | | treatment: Provigil Followed by Dr. Maldonado, neurologyLast | | Assessment & Plan: Let's rule out adrenal insufficiency | | (ACTH-stimulation test).Meanwhile, follow-up with:1) neurologist | | regarding MS, etc.2) psychiatrist and psychologist3) try to | | clarify timing-vitale whether the timing of the Ropinirole dose | | change | |Meanwhile, follow-up with: | |1) neurologist regarding MS, etc. | |2) psychiatrist and psychologist | |3) try to clarify timing-vitale whether the timing of the Ropinirole dose change | + + + + + | Neurogenic bladder | 06/17/2015 | + + + + + | Overview: MS as cause, treated with Botox injections | + + + + + | RLS (restless legs syndrome) | 06/17/2015 | + + + + + | Overview: Overview: ChronicEtiology: MS, iron defCurrent | | treatment: Requip, IronHistory of Present Illness | | (06/29/2017)Persisting but stableLast Assessment & Plan: This is | | well controlled. Please continue your Requip at 3mg nightly | | | |History of Present Illness (06/29/2017) | |Persisting but stable | | | |Last Assessment & Plan: | |This is well controlled. 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 | + + + | B12 deficiency | 11/12/2014 | + + + + + | Overview: Overview: ChronicEtiology: Gastric bypassCurrent | | treatment: B12 injections at [facility] once a month | |Etiology: Gastric bypass | |Current treatment: B12 injections at [facility] once a month | + + + + + | Intertriginous candidiasis | 07/03/2014 | + + + | LAP-BAND surgery status | 07/03/2014 | + + + | Color blindness, 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 | + + + | Senile nuclear sclerosis | 04/08/2014 | + + + | Backache | 03/12/2014 | + + + | Calculus of kidney | 03/10/2014 | + + + | Constipation | 03/10/2014 | + + + | Radiculopathy, lumbosacral region | 03/10/2014 | + + + + + | Overview: Overview: | | Chronic | | Comorbidities: MS | | Past treatment: lumbar surg 02/07 | | Spinal cord stimulator (2014; replaced 10/2016) | | Current treatment: Gabapentin | | | | 06/28/2016 (PCP OV Note) | | History of Present Illness | | Recent flare of pain due to fall; now back to baseline | | | | Assessment & Plan | | Stable now; continue gabapentin | | | | Last Assessment & Plan: | + + + + + | Nephrolithiasis | 03/10/2014 | + + + | Thoracic or lumbosacral neuritis or radiculitis | 03/10/2014 | + + + | Anxiety associated with depression | 02/19/2014 | + + + | Iron malabsorption | 12/30/2013 | + + + + + | Overview: Overview: | | Chronic | | Etiology: gastric bypass; 12/30/2013: | | Current treatment: iron infusions | | Followed by Dr. Lloyd, heme/onc | | | | Last Assessment & Plan: | | See above | + + + + + | Osteoporosis | 12/30/2013 | + + + + + | Overview: Overview: Chronic Etiology: gastric bypass, vit D | | defComorbidities: MSCurrent treatment: Reclast annual infusion | | starting 1999Surveillance DEXA t-score (-) 2.8; | | (PCP OV Note)History of Present Illness Pt reports new symptoms: | | NoTolerating above regimen: YesPt feels risk of falling is: | | ModerateLast Assessment & Plan: Pertinent history and current | | treatment plan Chronic Etiology: gastric bypass, vit D defCurrent | | treatment: Reclast annual infusion starting 1999History of | | Present Illness:Has been tolerating current regimen. He reports | | he has not had a DEXA in 6 yrs.No fragility fracturesAssessment & | | Plan:Asx'atic. Check surveillance DEXA.Consider Vit D level as | | well.Continue walking. | | | |Last Assessment & Plan: | |Pertinent history and current treatment plan | |Chronic | |Etiology: gastric bypass, vit D def | |Current treatment: Reclast annual infusion starting 1999 | | | |History of Present Illness: | |Has been tolerating current regimen. He reports he has not had a DEXA in 6 yrs. | |No fragility fractures | | | |Assessment & Plan: | |Asx'atic. Check surveillance DEXA. | |Consider Vit D level as well. | |Continue walking. | | | | | + + + + + | H/O Benito-en-Y gastric bypass | 12/23/2013 | + + + + + | Overview: Overview: Done x 2 (Benito-en-Y in 2001 in [facility]; and | | lap band in 2013 in [place], [place]; | | Essie)Complications: dumping syndromeCurrent treatment: | | B12 injection and iron infusion q2 mo'sFollow[address] by Dr. Wade at | | [facility] Assessment & Plan: | | | |Last Assessment & Plan: | + + + + + | Mild episode of recurrent major depressive disorder (HCC) | 12/23/2013 | + + + + + | Overview: Overview: Chronic Failed treatment: Mendoza, | | EffexorCurrent treatment: BupropionPreviously followed by | | Teena Mora, Dr. Joya De La O, PhDHistory of Present Illness | | (09/28/2017)Intentional opiate overdose 09/13/2017 for which he was | | taken to ER.He was under a lot of stress.No physical | | repercussions/complications of the ODHe had self-stopped his | | anti-depression regimen.He is feeling signifnicantly better and | | "want(s) to live". Has followed up with psychologistLast | | Assessment & Plan: Stabilized.Recommendations include: Please | | continue close follow-up with your psychologistOverview: Chronic | | Failed treatment: Cymbalta, EffexorCurrent treatment: | | BupropionPreviously followed by Dr. Morgan M.D., Dr. Hinosn | | Jairon, PhDHistory of Present Illness (09/28/2017)Intentional | | opiate overdose 09/13/2017 for which he was taken to ER.He was | | under a lot of stress.No physical repercussions/complications of | | the ODHe had self-stopped his anti-depression regimen.He is | | feeling signifnicantly better and "want(s) to live". Has | | followed up with psychologistLast Assessment & Plan: | | Stabilized.Recommendations include: Please continue close | | follow-up with your psychologist | |Chronic | |Failed treatment: Cymbalta, Effexor | |Current treatment: Bupropion | |Previously followed by Dr. Morgan M.D., Dr. Joya De La O, PhD | | | |History of Present Illness (09/28/2017) | |Intentional opiate overdose 09/13/2017 for which he was taken to ER. | |He was under a lot of stress. | |No physical repercussions/complications of the OD | |He had self-stopped his anti-depression regimen. | |He is feeling signifnicantly better and "want(s) to live". | |Has followed up with psychologist | | | |Last Assessment & Plan: | |Stabilized. | |Recommendations include: | |Please continue close follow-up with your psychologist | + + + + + | CHRISTEN (obstructive sleep apnea) | 12/23/2013 | + + + + + | Overview: Overview: | | Chronic | | Followed by Dr. Danelle Wing, sleep medicine | | | | Last Assessment & Plan: | | Defer to Dr. Wing | + + + + + | Persistent depressive disorder | 12/23/2013 | + + + + + | Overview: Overview: Overview: Pertinent history and current | | treatment plan : 12/23/2013: office visit (Trevin Delacruz, | | Teena)..... New pt: Pt on daily Zoloft and as needed Xanax; pt | | takes "at most" 10-15 tabs per month01/16/2014 Resume sertraline, | | working up to his prior dose of 150mg daily............Jose Hameed | | Sarah Assessment & Plan: Pertinent history and current | | treatment plan : 12/23/2013: office visit (Trevin Delacruz, | | MLeslie)..... New pt: Pt on daily Zoloft and as needed Xanax; pt | | takes "at most" 10-15 tabs per monthHistory of Present Illness:Pt | | ran out of his sertraline. Not clear why he has not made | | request for refills prior this appt but he is asking for that | | know.Assessment & Plan:Resume sertraline, working up to his prior | | dose of 150mg daily | | | |Resume sertraline, working up to his prior dose of 150mg daily | | | | | + + + + + | Multiple sclerosis (HCC) | 12/11/2013 | + + + + + | Overview: Overview: Chronic; dx'ed in 2004Complications: | | fatigue, GI side effects, neurogenic bladder, RLSPast MS | | treatment: --Avonex [id number] (treatment for 2 years)--Rebif for | | 2.5 years; discontinued for disease activity--Tysabri 2004- 2008; | | discontinued for positive SARAH virus Ab --Tecfidera for a couple | | months; discontinued secondary to side effects--Copaxone 2013 - | | November 2015Followed by Dr. Christian Maldonado, neuroLast Assessment | | & Plan: Please follow-up with neurologist | |--Copaxone 2013 - November 2015 | |Followed by Dr. Christian Maldonado, neuro | | | |Last Assessment & Plan: | |Please follow-up with neurologist | + + + + + | H/O PE (pulmonary embolism) | 03/26/1979 | + + + + + | Overview: Overview: | | 1978 | | He did have a provoked PE in 1976 following a surgery. | + + Resolved Problems + + + + | Problem | Noted | Resolved | | | Date | Date | + + + + | Bradycardia | 06/14/19 | | | | 17 | 9 | + + + + + + | Overview: Overview: 06/28/2016 (PCP OV Note)History of Present | | Illness Noted by his neurologist 05/2016.Subsequent evaluation | | included: 05/2016 Holter: Normal sinus rhythmNo long pause or | | profound bradycardiaFew PAC's, short bursts of atrial | | tachycardia, four beat wide QRS tachycardiaNo symptoms | | reportedAssessment & Plan No documented bradycardia on the | | holter. 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 | |Consider cardiology consult and/or echo to evaluate the bursts of atrial tachycardia and th e 4-beat wide-QRS tachycardia. | | | |Last Assessment & Plan: | + + + + + + | Hypertension | 05/23/19 | | | | 17 | 9 | + + + + | GERD (gastroesophageal reflux disease) | 07/04/19 | | | | 15 | 9 | + + + + | Influenza | 03/12/20 | | | | 14 | 9 | + + + + | Fever | 03/10/20 | | | | 14 | 9 | + + + + | Pulmonary embolism and infarction (HCC) | 03/10/20 | | | | 14 | 9 | + + + + + + | Overview: Overview: | | Overview: | | 1979 | + + Encounters +--------+ + + + + | Date | Type | Specialty | Care Team | Description | +--------+ + + + + | 06/20/ | Hospital | | Michael Fernandes | Neurogenic bladder; | | 2018 | Encounter | | MD Yaw | Urge incontinence | +--------+ + + + + | 06/20/ | Anesthesia | | Demarcus Veloz MD | | | 2018 | Event | | | | +--------+ + + + + | 06/20/ | Procedure | | | | | 2019 | Pass | | | | +--------+ + + + + | 06/20/ | Surgery | | Michael Fernandes | Cystoscopy, | | 2019 | | | MD Yaw | suprapubic catheter | | | | | | placement | +--------+ + + + + | 06/13/ | Telephone | | Michael Fernandes | Surgery Appointment | | 2018 | | | MD Yaw | | +--------+ + + + + | 06/07/ | Office | | Michael Fernandes | Pyuria (Primary Dx); | | 2018 | Visit | | MD Yaw | Neurogenic bladder; | | | | | | Urinary | | | | | | incontinence without | | | | | | sensory awareness | +--------+ + + + + | 06/01/ | Hospital | | Lexie Cagle | Acute pain of left | | 2018 | Encounter | | SOFIA Bacon | knee; Chronic pain | | | | | | of right knee | +--------+ + + + + | 06/01/ | Office | | Lexie Cagle | Chronic fatigue | | 2018 | Visit | | SOFIA Bacon | disorder (Primary | | | | | | Dx); B12 deficiency; | | | | | | Anxiety associated | | | | | | with depression; H/O | | | | | | Benito-en-Y gastric | | | | | | bypass; Iron | | | | | | malabsorption; | | | | | | Macrocytosis; | | | | | | Vitamin D | | | | | | deficiency; Skin | | | | | | eruption resembling | | | | | | psoriasis; Acute | | | | | | pain of left knee; | | | | | | Chronic pain of | | | | | | right knee; Left | | | | | | hand pain; RLS | | | | | | (restless legs | | | | | | syndrome) | +--------+ + + + + | 06/01/ | Telephone | | Lexie Cagle | Lab Order | | 2018 | | | SOFIA Bacon | | +--------+ + + + + | 05/21/ | Episode | | Manju Mccartney | | | 2018 | Changes | | RODNEY Frank | | +--------+ + + + + | 05/02/ | Telephone | | Michael Fernandes | Surgery Appointment | | 2018 | | | MD Yaw | | +--------+ + + + + | 04/30/ | Office | | Michael Fernandes | Neurogenic bladder | | 2018 | Visit | | MD Yaw | (Primary Dx); | | | | | | 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); | | | | | | Urge incontinence | +--------+ + + + + | 04/30/ | Telephone | | Michael Fernandes | Surgery Appointment | | 2019 | | | MD Yaw | | +--------+ + + + + | 04/23/ | Telephone | | Michael Fernandes | Post-op Question | | 2019 | | | MD Yaw | | +--------+ + + + + | 04/20/ | Office | | Lexie Cagle | Encounter for | | 2018 | Visit | | SOFIA Bacon | medical examination | | | | | | to establish care | | | | | | (Primary Dx); | | | | | | Hypoglycemia; RLS | | | | | | (restless legs | | | | | | syndrome); CHRISTEN | | | | | | (obstructive sleep | | | | | | apnea); Paroxysmal | | | | | | atrial fibrillation | | | | | | ([facility]); Iron | | | | | | malabsorption; | | | | | | Multiple sclerosis | | | | | | ([facility]); Acute pain of | | | | | | left knee; Chronic | | | | | | right-sided low back | | | | | | pain without | | | | | | sciatica; Disi | | | | | | (dorsal intercalated | | | | | | segment | | | | | | instability), left; | | | | | | Left hand pain; | | | | | | Neurogenic bladder; | | | | | | Calculus of kidney | +--------+ + + + + | 04/20/ | Clinical | | Michael Fernandes | Neurogenic bladder | | 2018 | Support | | MD Yaw | (Primary Dx) | +--------+ + + + + | 04/19/ | Hospital | | Michael Fernandes | Neurogenic bladder; | | 2018 | Encounter | | MD Yaw | Urge incontinence; | | | | | | 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) | +--------+ + + + + | 04/19/ | Procedure | | | | | 2018 | Pass | | | | +--------+ + + + 04/19/ | Surgery | | Michael Fernandes | Cystoscopy, bladder | | 2019 | | | MD Yaw | Botox, injection of | | | | | | urethral bulking | | | | | | agent | +--------+ + + + + | 04/18/ | Anesthesia | | Parker Hendricks | | | 2018 | Event | | MD Chuckie | | +--------+ + + + + | 04/17/ | Telephone | | Michael Fernandes | Surgery Appointment | | 2018 | | | MD Yaw | | +--------+ + + + + | 04/12/ | Episode | | Manju Mccartney | | 2018 | Changes | | RODNEY Frank | | +--------+ + + + + | 04/09/ | Episode | | Manju Mccartney | | 2019 | Changes | | RODNEY Frank | | +--------+ + + + + | 04/05/ | Telephone | | Michael Fernandes | Results, Critical | | 2019 | | | MD Yaw | | +--------+ + + + + | 04/03/ | Office | | Michael Fernandes | Neurogenic bladder | | 2018 | Visit | | MD Yaw | (Primary Dx); | | | | | | Intrinsic sphincter | | | | | | deficiency; | | | | | | Hematuria, | | | | | | unspecified type; | | | | | | Pyuria; Detrusor | | | | | | instability | +--------+ + + + + from Last 3 Months Immunizations + + + + | Name | Dates Previously Given | Next Due | + + + + | INFLUENZA 67 Y OR >, | 03/27/2015 | | | TRIVALENT HIGH-DOSE | | | + + + + | INFLUENZA PF | 01/26/2017, 12/10/2015 | | | QUAD(PED/ADOL/ADULT) | | | | ,PSKT or VIAL | | | + + + + | INFLUENZA, | 03/27/2017, 12/26/2015, 03/11/2014 | | | UNSPECIFIED | | | | FORMULATION | | | + + + + | PNEUMOCOCCAL | 06/29/2017, 12/26/2015, 03/27/2014 | | | CONJUGATE 13-VALENT | | | | (PCV13) | | | + + + + | PNEUMOCOCCAL | 09/01/2015, 03/27/2014 | | | POLYSACCHARIDE | | | | 23-VALENT (PPSV23) | | | + + + + | PNEUMOCOCCAL, | 03/27/2014 | | | UNSPECIFIED | | | | FORMULATION | | | + + + + Family History + + +------+ + | Medical History | Relation | Name | Comments | + + +------+ + | Cancer | Father | | bone cancer | + + +------+ + | Cancer | Mother | | | + + +------+ + | Prostate cancer | Neg Hx | | | + + +------+ + + +------+ + + | Relation | Name | Status | Comments | + +------+ + + | Father | | Alive | | + +------+ + + | Mother | | | | + +------+ + + Social History + +-------+ +--------+------+ [...] on file | | + + + Last Filed Vital Signs + + + + | Vital Sign | Reading | Time Taken | + + + + | Blood Pressure | 127/77 | 06/20/2018 1030 PDT | + + + + | Pulse | 68 | 06/20/2018 1030 PDT | + + + + | Temperature | 36.2 C (97.2 F) | 06/20/201848 PDT | + + + + | [...] 06/20/2018731 PDT | + + + + Plan of Treatment +--------+---------+ + + + | Date | Type | Specialty | Care Team | Description | +--------+---------+ + + + | 07/04/ | Office | | Michael Fernandes | | | 2018 | Visit | | MD Yaw [address] | | | | | [place] | | | | | | [id number] | | | | | | | | +--------+---------+ + + + | 07/04/ | Office | | Lexie Cagle | | | 2018 | Visit | | SOFIA Bacon [address] | | | | | | [address] [place] | | | | | | [place] [address] | | | | | | [phone] | | | | | | | | +--------+---------+ + + + + + + + + | Health Maintenance | Due Date | Last Done | Comments | + + + + + | Vaccine: | | | | | Dtap/Tdap/Td (1 - | 1 | | | | Tdap) | | | | + + + + + | Vaccine: Zoster (1 | | | | | of 2) | 2 | | | + + + + + | Vaccine: Influenza | | 03/27/2017, 01/26/2017, | | | (#1) | 8 | 12/26/2015, Additional history | | | | | exists | | + + + + + | Adult Annual | | | | | Wellness Visit | 9 | | | + + + + + | Vaccine: | | 06/29/2017, 12/26/2015, | | | Pneumococcal 65+ | 1 | 09/01/2015, Additional history | | | Low/Medium Risk (2 | | exists | | | of 2 - PPSV23) | | | | + + + + + | Colorectal Cancer | | 07/20/2016 | | | Screening | 7 | | | | (Colonoscopy) | | | | + + + + + | Hepatitis C | Completed | 07/22/2014 | | | Screening | | | | + + + + + Implants + +--------+--------+ +--------+--------+--------+ | Implanted | Type | Area | Manufacture | Device | Expira | Model | | | | | r | | tion | / | | | | | | Identi | Date | Serial | | | | | | fier | | / Lot | + +--------+--------+ +--------+--------+--------+ | Imp Uros Macroplastiqe - | Generi | N/A: | UROPLASTY | | 04/23/ | MPQ-2. | | Sn/AImplanted: Qty: 1 on | c | Bladde | INC - URPS | | 2019 | N/A | | 04/19/2018 by Dom, | | r | | | | | | Michael Tidwell MD | | | | | | /[id number] | | | | | | | | 207 | + +--------+--------+ +--------+--------+--------+ Procedures + +--------+ + + + | Procedure Name | Priori | Date/Time | Associated Diagnosis | Comments | | | ty | | | | + +--------+ + + + | ANE AIRWAY NOTE | Routin | 06/20/2018 | | Results for this | | | e | 0929 PDT | | procedure are in the [...] +--------+ + + + | URINALYSIS, | ADELE | 06/07/2018 | Pyuria | Results for [...] | + +--------+ + + + | FERRITIN | Routin | 06/01/2018 | Iron malabsorption | Results for this | | | e | 1452 PST | | procedure are in the | | | | | | results section. | + +--------+ + + + | CBC WITH | Routin | 06/01/2018 | Iron malabsorption | Results for this | | DIFFERENTIAL | e | 1452 PST | | procedure are in the | | | | | | results section. | + +--------+ + + + | COMPREHENSIVE | Routin | 06/01/2018 | Anxiety associated | Results for this | | METABOLIC PANEL | e | 1452 PST | with depression | procedure are in the | | | | | | results section. | + +--------+ + + + | IRON AND TRANSFERRIN | Routin | 06/01/2018 | Iron malabsorption | Results for this | | | e | 1452 PST | | procedure are in the | | | | | | results section. | + +--------+ + + + | VITAMIN D, | Routin | 06/01/2018 | Vitamin D | Results for this | | DEFICIENCY SCREEN | e | 1452 PST | deficiency | procedure are in the | | (25-HYDROXY) | | | | results section. | + +--------+ + + + | FOLATE | Routin | 06/01/2018 | B12 deficiency | Results for this | | | e | 1452 PST | Macrocytosis | procedure are in the | | | | | | results section. | + +--------+ + + + | VITAMIN B-12 | Routin | 06/01/2018 | B12 deficiency | Results for this | | | e | 1452 PST | Macrocytosis | procedure are in the | | | | | | results section. | + +--------+ + + + | T4, FREE | Routin | 06/01/2018 | Chronic fatigue | Results for this | | | e | 1452 PST | disorder | procedure are in the | | | | | | results section. | + +--------+ + + + | TSH | Routin | 06/01/2018 | Chronic fatigue | Results for this | | | e | 1452 PST | disorder | procedure are in the | | | | | | results section. | + +--------+ + + + | CYSTOSCOPY W/ BOTOX | | 04/19/2018 | Neurogenic bladder | | | INJECTION | | 1357 PST | (N31.9), Intrinsic | | | | | | sphincter deficiency | | | | [...] PER | | | | | | CHRISTAL | | | NIC'S | | | CHART | | | NOTES | +---+--------+ + +--------+ + + + | CBC NO DIFFERENTIAL | STAT | 04/19/2018 | | Results for this | | | | 1227 PST | | procedure are in the | | | | | | results section. | + +--------+ + + + | ECG 12 LEAD | Routin | 04/19/2018 | | Results for this | | | e | 1200 PST | | procedure are in the | | | | | | results section. | + +--------+ + + + | POCT URINALYSIS | Routin | 04/03/2018 | Hematuria, | Results for this | | | e | 1425 PST | unspecified type | procedure are in the | | | | | Pyuria | results section. | + +--------+ + + + | URINALYSIS, | Routin | 04/03/2018 | Hematuria, | Results for this | | MICROSCOPIC ONLY, | e | 1424 PST | unspecified type | procedure are in the | | WITH CULTURE IF | | | Pyuria | results section. | | INDICATED | | | | | + +--------+ + + + | CULTURE, URINE | Routin | 04/03/2018 | Hematuria, | Results for this | | | e | 1424 PST | unspecified type | procedure are in the | | | | | Pyuria | results section. | + +--------+ + + + from Last 3 Months Results Anesthesia Airway Note (06/20/201829) + + + | Narrative | Performed [...] | Demarcus Veloz | | | MD Smiley | | | date/time: 06/20/2018 9:29 | [...] carbon dioxide detectionPerforming provider: DEMARCUS VELOZ | WElectronically Signed by: MD Sherice Mack date/time: | | 06/20/2018 9:29 | |Cuffed: cuffed | |Trauma: none | |Tube placement verification: bilateral chest rise and carbon dioxide detection | |Performing provider: DEMARCUS VELOZ | | | | | |Electronically Signed by: Demarcus Veloz MD ESi date/time: 06/20 9:29 | | | + + POCT Urinalysis Dipstick Automated (06/07/2018 1354)Only the most recent of 2 results withi n the time period is included. + + + + + | Component [...] + + + + + | Specific [place], | 1.020 | 1.001 - 1.030 | [...] Microscopic Only, with Culture if Indicated (06/07/2018 6698)Only the most rece nt of 2 results within the time period is included. + + + + + | Component [...] + + | [facility] | [address] | [place] | [phone] | | [facility] | | [address] | | | - LABORATORY | | | | + + + + + XR Knee Right 1 - 2 Vw [...] + + | Performing | Address | City/State/[facility] Centercode | Phone Number | | Organization | [...] | | | + +---------+ + + Vitamin B-12 (06/01/20181451) + + + + + | Component | Value | Ref Range | Performed At | + + + + + | VITAMIN B-12 | 320Comment: | 180 - 914 pg/mL | [facility] | | | DEFICIENT: | | [facility] | | | <145 | | CENTER - | | | pg/mLINDETERMINATE: | | LABORATORY | | | 145-180 pg/mL | | | + + + + + + + | Specimen | + + | Blood | + + + + + + + | Performing | Address | City/State/Zipcode | Phone Number | | Organization | | | | + + + + + | [facility] | [address] | [place] | [phone] | | [facility] | | [address] | | | - LABORATORY | | | | + + + + + Vitamin D, Deficiency Screen (25-Hydroxy) (06/01/2018 9623) + +--------+ + + | Component | Value | Ref Range | Performed At | + +--------+ + + | Vitamin D, 25 | 11 (L) | 30 - 100 ng/mL | [facility] | | Hydroxy | | | [facility] | | | | | CENTER - | | | | | LABORATORY | + +--------+ + + + + | Specimen | + + | Blood | + + + + + + + | Performing | Address | City/State/Zipcode | Phone Number | | Organization | | | | + + + + + | [facility] | [address] | [place] | [phone] | | [facility] | | [address] | | | - LABORATORY | | | | + + + + + Iron and Transferrin (06/01/2018 1452) + + + + + | Component | Value | Ref Range | Performed At | + + + + + | Iron | 81 | 50 - 160 ug/dL | [facility] | | | | | [facility] | | | | | C[facility] - | | | | | LABORATORY | + + + + + | TRANSFERRIN | 198.8 (L) | 240.0 - 480.0 mg/dL | [facility] | | | | | [facility] | | | | | C[facility] - | | | | | LABORATORY | + + + + + | TIBC | 278 | 235 - 425 ug/dL | [facility] | | | | | [facility] | | | | | C[facility] - | | | | | LABORATORY | + + + + + | % SATURATION | 29.1 | 20.0 - 55.0 % | [facility] | | | | | [facility] | | | | | CENTER - | | | | | LABORATORY | + + + + + + + | Specimen | + + | Blood | + + + + + + + | Performing | Address | City/State/Zipcode | Phone Number | | Organization | | | | + + + + + | [facility] | [address] | [place] | [phone] | | [facility] | | [address] | | | - LABORATORY | | | | + + + + + CBC with Differential (06/01/20181451) + + + + + | Component | Value | Ref Range | Performed At | + + + + + | WBC | 5.8 | 4.0 - 11.0 K/uL | [facility] | | | | | [facility] | | | | | C[facility] - | | | | | LABORATORY | + + + + + | RBC | 4.60 | 4.30 - 5.70 M/uL | [facility] | | | | | [facility] | | | | | [facility] - | | | | | LABORATORY | + + + + + | Hemoglobin | 14.7 | 13.5 - 18.0 g/dL | [facility] | | | | | [facility] | | | | | C[facility] - | | | | | LABORATORY | + + + + + | Hematocrit | 44.4 | 40.0 - 51.0 % | [facility] | | | | | [facility] | | | | | C[facility] - | | | | | LABORATORY | + + + + + | MCV | 96.5 | 83.0 - 101.0 fL | [facility] | | | | | [facility] | | | | | [facility] - | | | | | LABORATORY | + + + + + | MCH | 32.0 | 28.0 - 35.0 pg | [facility] | | | | | [facility] | | | | | C[facility] - | | | | | LABORATORY | + + + + + | MCHC | 33.1 | 32.0 - 36.0 g/dL | [facility] | | | | | [facility] | | | | | C[facility] - | | | | | LABORATORY | + + + + + | RDW-CV | 13.4 | <15.0 % | [facility] | | | | | [facility] | | | | | C[facility] - | | | | | LABORATORY | + + + + + | RDW-SD | 47.9 (H) | 35.1 - 46.3 fL | [facility] | | | | | [facility] | | | | | C[facility] - | | | | | LABORATORY | + + + + + | Platelet Count | 209 | 140 - 440 K/uL | [facility] | | | | | [facility] | | | | | [facility] - | | | | | LABORATORY | + + + + + | MPV | 10.4 | 6.5 - 12.4 fL | [facility] | | | | | [facility] | | | | | [facility] - | | | | | LABORATORY | + + + + + | % Neutrophils | 63.2 | 45.0 - 82.0 % | [facility] | | | | | [facility] | | | | | C[facility] - | | | | | LABORATORY | + + + + + | % Lymphocytes | 19.7 (L) | 20.0 - 45.0 % | [facility] | | | | | [facility] | | | | | C[facility] - | | | | | LABORATORY | + + + + + | % Monocytes | 11.1 | 4.0 - 12.0 % | [facility] | | | | | [facility] | | | | | [facility] - | | | | | LABORATORY | + + + + + | % Eosinophils | 4.8 | 0.0 - 5.0 % | [facility] | | | | | [facility] | | | | | C[facility] - | | | | | LABORATORY | + + + + + | % Basophils | 1.0 | 0.0 - 1.0 % | [facility] | | | | | [facility] | | | | | C[facility] - | | | | | LABORATORY | + + + + + | % Immature | 0.2 | 0.0 - 0.4 % | [facility] | | Granulocytes | | | [facility] | | | | | CENTER - | | | | | LABORATORY | + + + + + | Absolute Neutrophils | 3.65 | 1.80 - 8.50 K/uL | [facility] | | | | | [facility] | | | | | C[facility] - | | | | | LABORATORY | + + + + + | Absolute Lymphocytes | 1.14 | 0.60 - 3.20 K/uL | [facility] | | | | | [facility] | | | | | [facility] - | | | | | LABORATORY | + + + + + | Absolute Monocytes | 0.64 | 0.00 - 1.00 K/uL | [facility] | | | | | [facility] | | | | | C[facility] - | | | | | LABORATORY | + + + + + | Absolute Eosinophils | 0.28 | 0.00 - 0.40 K/uL | [facility] | | | | | [facility] | | | | | C[facility] - | | | | | LABORATORY | + + + + + | Absolute Basophils | 0.06 | 0.00 - 0.10 K/uL | [facility] | | | | | [facility] | | | | | C[facility] - | | | | | LABORATORY | + + + + + | Absolute Immature | 0.01 | 0.00 - 0.03 K/uL | [facility] | | Granulocytes | | | [facility] | | | | | CENTER - | | | | | LABORATORY | + + + + + | % nRBC | 0 | 0 - 2 per 100 WBC's | [facility] | | | | | [facility] | | | | | C[facility] - | | | | | LABORATORY | + + + + + | Absolute nRBC | 0.00 | 0.00 - 0.01 K/uL | [facility] | | | | | [facility] | | | | | CENTER - | | | | | LABORATORY | + + + + + + + | Specimen | + + | Blood | + + + + + + + | Performing | Address | City/State/Zipcode | Phone Number | | Organization | | | | + + + + + | [facility] | [address] | [place] | [phone] | | [facility] | | [address] | | | - LABORATORY | | | | + + + + + TSH (06/01/20181451) + + + + + | Component | Value | Ref Range | Performed At | + + + + + | TSH | 2.08Comment: This is a | 0.45 - 5.33 uIU/mL | [facility] | | | third generation TSH | | [facility] | | | test. | | CENTER - | | | | | LABORATORY | + + + + + + + | Specimen | + + | Blood | + + + + + + + | Performing | Address | City/State/Zipcode | Phone Number | | Organization | | | | + + + + + | [facility] | [address] | [place] | [phone] | | [facility] | | [address] | | | - LABORATORY | | | | + + + + + T4, Free (06/01/2018 400) + +-------+ + + | Component | Value | Ref Range | Performed At | + +-------+ + + | FT4 | 0.8 | 0.6 - 1.1 ng/dL | [facility] | | | | | [facility] | | | | | CENTER - | | | | | LABORATORY | + +-------+ + + + + | Specimen | + + | Blood | + + + + + + + | Performing | Address | City/State/Zipcode | Phone Number | | Organization | | | | + + + + + | [facility] | [address] | [place] | [phone] | | [facility] | | [address] | | | - LABORATORY | | | | + + + + + Folate (06/01/2018 1452) + +-------+ + + | Component | Value | Ref Range | Performed At | + +-------+ + + | FOLATE | 19.4 | >5.8 ng/mL | [facility] | | | | | [facility] | | | | | CENTER - | | | | | LABORATORY | + +-------+ + + + + | Specimen | + + | Blood | + + + + + + + | Performing | Address | City/State/Zipcode | Phone Number | | Organization | | | | + + + + + | [facility] | [address] | [place] | [phone] | | [facility] | | [address] | | | - LABORATORY | | | | + + + + + Ferritin (06/01/2018 1452) + +-------+ + + | Component | Value | Ref Range | Performed At | + +-------+ + + | FERRITIN | 304 | 24 - 366 ng/mL | [facility] | | | | | [facility] | | | | | CENTER - | | | | | LABORATORY | + +-------+ + + + + | Specimen | + + | Blood | + + + + + + + | Performing | Address | City/State/[facility] | Phone Number | | Organization | | | | + + + + + | [facility] | [address] | [place] | [phone] | | [facility] | | [address] | | | - LABORATORY | | | | + + + + + Comprehensive Metabolic Panel (06/01/2018 6660) + + + + + | Component | Value | Ref Range | Performed At | + + + + + | Na | 138 | 136 - 149 mmol/L | [facility] | | | | | [facility] | | | | | C[facility] - | | | | | LABORATORY | + + + + + | K | 4.5 | 3.5 - 5.1 mmol/L | [facility] | | | | | [facility] | | | | | CENTER - | | | | | LABORATORY | + + + + + | Cl | 100 | 98 - 109 mmol/L | [facility] | | | | | [facility] | | | | | CENTER - | | | | | LABORATORY | + + + + + | CO2 | 27 | 24 - 31 mmol/L | [facility] | | | | | [facility] | | | | | CENTER - | | | | | LABORATORY | + + + + + | Anion Gap | 11 | 3 - 16 mmol/L | [facility] | | | | | [facility] | | | | | CENTER - | | | | | LABORATORY | + + + + + | Glucose | 63 (L) | 70 - 109 mg/dL | [facility] | | | | | [facility] | | | | | CENTER - | | | | | LABORATORY | + + + + + | BUN | 17 | 7 - 18 mg/dL | [facility] | | | | | [facility] | | | | | CENTER - | | | | | LABORATORY | + + + + + | Creatinine | 0.84 | 0.60 - 1.30 mg/dL | [facility] | [facility] | | | | | CENTER - | | | | | LABORATORY | + + + + + | eGFR if not | >60Comment: GLOMERULAR | >=60 mL/min/1.73m2 | [facility] | | NIGERIEN | FILTRATION | | [facility] | | | RATE,ESTIMATED mL/min | | CENTER - | | | /1.18p6Phzl than 60 | | LABORATORY | | | Chronic kidney | | | | | disease,if found over a | | | | | 3-month period.Less than | | | | | 15 Kidney | | | | | failureFor | | | | | Americans,multiply the | | | | | calculated GFR by 1.21. | | | | | | | | + + + + + | Ca | 9.1 | 8.3 - 10.5 mg/dL | [facility] | | | | | [facility] | | | | | CENTER - | | | | | LABORATORY | + + + + + | Albumin | 4.3 | 3.2 - 5.0 g/dL | [facility] | | | | | [facility] | | | | | C[facility] - | | | | | LABORATORY | + + + + + | Bilirubin Total | 1.0 | 0.1 - 1.5 mg/dL | [facility] | | | | | [facility] | | | | | C[facility] - | | | | | LABORATORY | + + + + + | Total Protein | 6.9 | 6.0 - 7.8 g/dL | [facility] | | | | | [facility] | | | | | CENTER - | | | | | LABORATORY | + + + + + | AST | 26 | 10 - 42 U/L | [facility] | | | | | [facility] | | | | | CENTER - | | | | | LABORATORY | + + + + + | ALT | 23 | 6 - 45 U/L | [facility] | | | | | [facility] | | | | | CENTER - | | | | | LABORATORY | + + + + + | Alkaline Phosphatase | 57 | 40 - 110 U/L | [facility] | | | [facility] - | | | | | [facility]ORY | + + + + + | Globulin | 2.6 | 2.1 - 3.8 g/dL | [facility] | [facility] - | | | | | [facility]ORY | + + + + + | Albumin/Globulin | 1.7 | 0.8 - 2.0 | [facility] | | Ratio | | | [facility] | | | | [facility] - | | | | | [facility]ORY | + + + + + | BUN/Creatinine Ratio | 20.2 | | [facility] | | | [facility] | | | | | [facility] - | | | | | [facility]ATORY | + + + + + + + | Specimen | + + | Blood | + + + + + + + | Performing | Address | City/State/Zipcode | Phone Number | | Organization | | | | + + + + + | [facility] | [address] | [place], [place] | [phone] | | [facility] | | [id number] | | | - LABORATORY | | | | + + + + + CBC no Differential (04/19/2018 1227) + + + + + | Component | Value | Ref Range | Performed At | + + + + + | WBC | 5.4 | 4.0 - 11.0 K/uL | [facility] | | | | | [facility] | | | | | [facility] - | | | | | LABORATORY | + + + + + | RBC | 4.24 (L) | 4.30 - 5.70 M/uL | [facility] | | | | | [facility] | | | | | CENTER - | | | | | LABORATORY | + + + + + | Hemoglobin | 13.4 (L) | 13.5 - 18.0 g/dL | [facility] | | | | | [facility] | | | | | [facility] - | | | | | LAB[facility]ATORY | + + + + + | Hematocrit | 41.0 | 40.0 - 51.0 % | [facility] | | | | | [facility] | | | | | [facility] - | | | | | LAB[facility]ATORY | + + + + + | MCV | 96.7 | 83.0 - 101.0 fL | [facility] | | | | | [facility] | | | [facility] - | | | | | LAB[facility]ATORY | + + + + + | MCH | 31.6 | 28.0 - 35.0 pg | [facility] | | | | | [facility] | | | | [facility] - | | | | | [facility]ATORY | + + + + + | MCHC | 32.7 | 32.0 - 36.0 g/dL | [facility] | | | | [facility] | | | | [facility] - | | | | | [facility]ATORY | + + + + + | RDW-CV | 13.3 | <15.0 % | [facility] | | | [facility] | [facility] - | | | | | [facility]ATORY | + + + + + | RDW-SD | 47.7 (H) | 35.1 - 46.3 fL | [facility] | | | [facility] | [facility] - | | | | | LAB[facility]ATORY | + + + + + | Platelet Count | 167 | 140 - 440 K/uL | [facility] | | [facility] | | [facility] - | | | | | [facility]ATORY | + + + + + | MPV | 10.7 | 6.5 - 12.4 fL | [facility] | [facility] - | | | | | [facility]ATORY | + + + + + | % nRBC | 0 | 0 - 2 per 100 WBC's | [facility] | [facility] - | | | | | [facility]ATORY | + + + + + | Absolute nRBC | 0.00 | 0.00 - 0.01 K/uL | [facility] | | | | [...] | + + + + + | [facility] | [address] | [place] | [phone] | | [facility] | | [address] | | | - LABORATORY | | | | + + + + + ECG 12 lead (04/19/2018 1200) + + + + + | Component | Value | Ref Range | Performed At | + + + + + | VENTRICULAR RATE EKG | 49 | BPM | [facility] | + + + + + | ATRIAL RATE | 49 | BPM | [facility] | + + + + + | P-R INTERVAL | 148 | ms | [facility] | + + + + + | QRS DURATION | 74 | ms | [facility] | + + + + + | Q-T INTERVAL | 436 | ms | [facility] | + + + + + | Q-T INTERVAL | 393 | ms | [facility] | | (CORRECTED) | | | | + + + + + | P WAVE AXIS | 47 | degrees | [facility] | + + + + + | QRS AXIS | 10 | degrees | [facility] | + + + + + | T AXIS | 39 | degrees | [facility] | + + + + + | INTERPRETATION TEXT | Sinus | | [facility] | | | bradycardiaOtherwise | | | | | normal ECGNo previous | | | | | ECGs availableConfirmed | | | | | by DEVIN BENITES MD | | | | | ([id number]) on 04/19/2018 | | | | | 7:54:42 PM | | | + + + + + + + + | Narrative | Performed At | + + + | | | + + + + +---------+ + + | Performing | Address | City/State/Zipcode | Phone Number | | Organization | | | | + +---------+ + + | [facility] | | | | + +---------+ + + Culture, Urine (04/03/2018 1424) + + + + + | Component | Value | Ref Range | Performed At | + + + + + | Culture | >100,000 CFU/ml | | [facility] | | | Escherichia coliComment: | | [facility] | | | *[facility] | | [facility] - | | | ALERT - | | LABORATORY | | | ESBL* ESBLs are | | | | | enzymes that mediate | | | | | resistance | | | | | to extended-spectrum | | | | | (third generation) | | | | | cephalosporins | | | | | (e.g.,ceftazidime, | | | | | cefotaxime, (aztreona | | | | | m) but do not affect | | | | | cephamycins(cefoxitin | | | | | and cefotetan) | | | | | orcarbapenems | | | | | (e.g.,meropenem or | | | | | imipenem). Patients who | | | | | are identified with | | | | | these organisms should | | | | | be placed into CONTACT | | | | | PRECAUTIONS. | | | + + + + + + + | Specimen | + + | Urine - Urine, Clean | | Catch | + + + + +--------+ + | Organism | Antibiotic | Method | Susceptibility | + + +--------+ + | Escherichia coli | Ampicillin | | >=32 ug/mL: | | | | | Resistant | + + +--------+ + | Escherichia coli | Cefazolin | | >=64 ug/mL: | | | | | Resistant | + + +--------+ + | Escherichia coli | Ciprofloxacin | | >=4 ug/mL: | | | | | Resistant | + + +--------+ + | Escherichia coli | Gentamicin | | >=16 ug/mL: | | | | | Resistant | + + +--------+ + | Escherichia coli | Nitrofurantoin | | <=16 ug/mL: | | | | | Sensitive | + + +--------+ + | Escherichia coli | Trimethoprim + | | >=320 ug/mL: | | | Sulfamethoxazole | | Resistant | + + +--------+ + | Escherichia coli | Cefoxitin | | 8 ug/mL: | | | | | Intermediate | + + +--------+ + | Escherichia coli | Ceftazidime | | Resistant | + + +--------+ + | Escherichia coli | Ceftriaxone | | >=64 ug/mL: | | | | | Resistant | + + +--------+ + | Escherichia coli | Ertapenem | | <=0.5 ug/mL: | | | | | Sensitive | + + +--------+ + | Escherichia coli | Meropenem | | <=0.25 ug/mL: | | | | | Sensitive | + + +--------+ + | Escherichia coli | Piperacillin + | | <=4 ug/mL: | | | Tazobactam | | Sensitive | + + +--------+ + | Escherichia coli | Tobramycin | | 8 ug/mL: | | | | | Intermediate | + + +--------+ + | Escherichia coli | Amikacin | | <=2 ug/mL: | | | | | Sensitive | + + +--------+ + + + + + + | Performing | Address | City/State/Zipcode | Phone Number | | Organization | | | | + + + + + | [facility] | [address] | [place] | [phone] | | [facility] | | [address] | | | - LABORATORY | | | | + + + + + from Last 3 Months Insurance + +--------+ +--------+ +---------+ | Payer | Benefi | Subscriber | Type | Phone | Address | | | t Plan | ID | | | | | | / | | | | | | | Group | | | | | + +--------+ +--------+ +---------+ | MEDICARE | MEDICA | [id number] | Medica | [phone] | | | RE | | re | [phone] | | | | PART A | | | | | | | AND B | | | | | + +--------+ +--------+ +---------+ | AARP | AARP | [id number] | Indemn | [phone] | | | MDCR | | ity | [phone] | | | | SUPPL | | | | | + +--------+ +--------+ +---------+ + +--------+ +--------+ + + | Guarantor Name | Accoun | Relation to | Date | Phone | Billing Address | | | t Type | Patient | of | | | | | | | | | | + +--------+ +--------+ + + | DEBBI MARQUEZ | Person | Self [birth year] Home: | [address] | | | al/Fam | | 1949 | [phone] | [place] [address] | | | starr | | | [phone] | | + +--------+ +--------+ + +
--- OUTSIDE RECORDS SUMMARY | ~2018-06-22 | XMS | Encounter Summary ---
Demographics + + + | Address | [address] | | | [place] [address] | + + + | Home Phone | | + + + | Preferred Language | Unknown | + + + | Marital Status | Single | + + + | Confucianist Affiliation | Unknown | + + + | Race | Unknown | + + + | Ethnic Group | Unknown | + + + Author + + + | Author | [facility] | | | and Jadenana | + + + | Organization | [facility] | | | and [...] Providers + +------+ + | Care Emergency Man Name | Role | Phone | + [...] [place] | | | | | | [address] | | | | | | [phone] | | | +--------+ + + + [...] [place] | | | | | | [address] | | | | | | | | +--------+---------+ + + + | 07/04/ | Office | Internal Medicine | Lexie Cagle | | | 2018 | Visit | | [address] | | | | | | [place] | | | | | | [place] [address] | | | | | | [phone] | | | | | | | | +--------+---------+ + + + as of this encounter Visit Diagnoses Not on filein this encounter"
--- OUTSIDE RECORDS SUMMARY | ~2018-06-22 | XMS | Encounter Summary ---
Demographics + + + | Address | [address] | | | [place] [address] | + + + | Home Phone | | + + + | Preferred Language | Unknown | + + + | Marital Status | Single | + + + | Rastafarian Affiliation | Unknown | + + + | Race | Unknown | + + + | Ethnic Group | Unknown | + + + Author + + + | Author | [facility] | | | and Jadenana | + + + | Organization | [facility] | | | and [...] Team Providers + +------+ + | Care Refrigerating Engineer Name | Role | Phone | + +------+ + | No, Physician | PCP | Unavailable | + +------+ + Encounter Details +--------+---------+ + + + | Date | Type | Department | Care Team | Description | +--------+---------+ + + + | 04/19/ | Surgery | [facility] | Michael Fernandes | Cystoscopy, bladder | | 2019 | | [facility] | MD [address] | Botox, injection of | | | | [address] | [address] [facility], [place] | urethral bulking | | | | [place], [place] | [address] | agent | | | | [address] | | | | | | [phone] | | | +--------+---------+ + + + [...] | Blood Pressure | 130/84 | 04/19/2018 1500 PST | + + + + | Pulse | 61 | 04/19/2018 1500 PST | + + + + | Temperature | 37.3 C (99.1 F) | 04/19/2018 1351 PST | + + + + | Respiratory Rate | 18 | 04/19/2018 1500 PST | + + + + | Oxygen Saturation | 95% | 04/19/2018 1500 PST | + + + + | Inhaled Oxygen | - | - | | Concentration | | | + + + + | Weight | 91.4 kg (201 lb 8 | 04/19/2018 114 PST | | | oz) | | + + + + | Height | 177.8 cm (5' 10") | 04/19/2018 1145 PST | + + + + | Body Mass Index | 28.91 | 04/19/2018 1145 PST | + + + + in this encounter Discharge Instructions Michael Fernandes MD - 04/19/2018Zia in the office in 6 weeks. in this encounter Medications at Time of [...] | + + +--------+---------+ + + | OXYBUTYNIN | Take 1 tablet by | | | 07/05/19 | | | CHLORIDE PO | mouth. Patient | | | 15 | 9 | | | taking 15 mg daily | | | | | + + +--------+---------+ + + | traZODone | Take 100 mg by mouth | | | 03/30/19 | | | (DESYREL) 100 [...] | 07/04/ | Office | Urology | CalvinMichael parson | | | 2018 | Visit | | MD [address] | | | | | | [place] | | | | | | [address] | | | | | | | | +--------+---------+ + + + | 07/04/ | Office | Internal Medicine | Lexie Cagle | | | 2018 | Visit | | [address] | | | | | | [place] | | | | | | [place] [address] | | | | | | [phone] | | | | | | | [...] | | | PER | | | DR. | | | SPENDL | | | OVE'S | | | CHART | | | [...] results section. | + +--------+ +---+ + in this encounter Results CBC no Differential (04/19/2018 1227) + + [...] (L) | 4.30 - 5.70 M/uL | [facility] + | [facility] | 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 | | + +---+ | | | + +---+ | albuterol 2.5 mg/3 mL nebulizer | | | solution 2.5 mg 2.5 mg, | | | Nebulization, ONCE PRN, Wheezing, | | | Starting [facility] 04/19/18 at 1150, | | | For 1 dose, RT will administer. | | + +---+ | | | + +---+ | albuterol 2.5 mg/3 mL nebulizer | | | solution 2.5 mg 2.5 mg, | | | Nebulization, ONCE PRN, Wheezing, | | | Starting [facility] 04/19/18 at 1340, | | | For [...] glucose < 50, | | | Starting [facility] 04/19/18 at 1150, | | | Repeat [...] | | | Max total dose 100 mcg. | | + +---+ | | | [...] day), | | | First dose on [facility] 04/19/18 at | | | 2200, For 9 doses, If urine | | | output is less than 240ml/8 hours | | | (30ml/hr) or if signs of | | | bleeding, contact MD and hold. | | | Administer with food or snack | | + +---+ | | | + +---+ + +-------+ +-------+---+---+ | ketorolac (TORADOL) injection | Given | | 15 mg | | | | 15 mg 15 mg, Intravenous, ONCE, | | 9 14:56 | | | | | [facility] 04/19/18 at 1445, For 1 dose, | | PST | | | | | If urine output is less than | | | | | | | 240ml/8 hours (30ml/hr) or if | | | | | | | signs of bleeding, contact MD and | | | | | | | hold. | | | | | | + +-------+ +-------+---+---+ +---+---+ | | | +---+---+ + +---------+ +--------+-------+---+ | lactated ringers (LR) infusion | New Bag | | 1,000 | 100 | | | at 10-100 mL/hr, Intravenous, | | 9 12:11 | mLs | mL/hr | | | CONTINUOUS, Starting [facility] 04/19/18 | | PST | | | | | at 1215, TKO. | | | | | | + +---------+ +--------+-------+---+ + +---+ | | | + +---+ | meperidine (DEMEROL) injection | | | 12.5-25 mg 12.5-25 mg, | | | Intravenous, PRN, Shivering, | | | Starting [facility] 04/19/18 at 1340, For | | | 2 doses, May Repeat once in 5 | | | min. | | + +---+ | | [...] | | | and surgical consent is obtained | | + +---+ | | | + +---+ + +-------+ +-------+---+ + | onabotulinumtoxinA (BOTOX) | Given | | 300 | | Surgical | | injection 300 Units 300 Units, | | 9 13:20 | Units | | Site | | Intradermal, ONCE, [facility] 04/19/18 at | | PST | | | | | 1215, For 1 dose, Pre-op | | | | | | + +-------+ +-------+---+ + +---+---+ | | | +---+---+ + +-------+ +------+---+---+ | ondansetron (ZOFRAN ODT) | Given | | 8 mg | | | | disintegrating tablet 8 mg 8 mg, | | 9 12:11 | | | | | Oral, ONCE, [facility] 04/19/18 at 1215, | | PST | | | | | For [...] +--------+---+---+ | phenazopyridine (PYRIDIUM) | Given | | 200 mg | | | | tablet 200 mg 200 mg, Oral, 3 | | 9 14:56 | | | | | TIMES DAILY PRN, Urinary | | PST | | | | | Symptoms, urinary burning., | | | | | | | Starting [facility] 04/19/18 at 1436, | | | | | | | Administer with meals. | | | | | | + +-------+ +--------+---+---+ +---+---+ | | | +---+---+ in this encounter
--- OUTSIDE RECORDS SUMMARY | ~2018-06-22 | XMS | Encounter Summary ---
Demographics + + + | Address | [address] | | | [place] [address] | + + + | Home Phone | | + + + | Preferred Language | Unknown | + + + | Marital Status | Single | + + + | Tenriism Affiliation | Unknown | + + + | Race | Unknown | + + + | Ethnic Group | Unknown | + + + Author + + + | Author | [facility] | | | and Jadenana | + + + | Organization | [facility] | | | and Jadenana [...] Team Providers + +------+ + | Care Carbonation Equipment Operator Name | Role | Phone | + +------+ + | Lexie Cagle | PCP | | | HOLTER TECHNICIAN | | | + +------+ + [...] | | | | | Chronic | HOLTER TECHNICIAN [address] | | | | | pain of | [address] | [place], | | | | | right knee | [place], | [place] | | | | | | [place] [address] | [address] | | | | | | Phone: | Phone: | | | | | | [phone] | [phone] | | | | | | Fax: | Fax: | | | | | | [phone] | [phone] | +--------+ + + + + + Evaluate & Treat (Routine) + + + + + + + | Status | Reason | Specialty | Diagnoses / | Referred By | Referred To | | | | | Procedures | Contact | Contact | + + + + + + + | Authorized | Specialty | Dermatology | Diagnoses | Cagle, | [facility] | | | Services | | Skin | Lexie | [place] | | | Required | | eruption | Arleen, | DERMATOLOGY | | | | | resembling | HOLTER TECHNICIAN [address] | [address] | | | | | psoriasis | [address] | [address] [place] | | | | | | [place], | [place], [place] | | | | | | [place] [address] | [address] | | | | | | Phone: | Phone: | | | | | | [phone] | [phone] | | | | | | Fax: | Fax: | | | | | | [phone] | [phone] | + + + + + + + Reason for Visit + + + | Reason | Comments | + + + | Fatigue | Chronic | + + + | Referral (Follow up) | Dermatology | + + + | Leg Pain | x2 weeks | + + + Encounter Details +--------+---------+ + + + | Date | Type | Department | Care Team | Description | +--------+---------+ + + + | 06/01/ | Office | [facility] | Lexie Cagle | Chronic fatigue | | 2019 | Visit | MEDICINE [address] | [address] | disorder (Primary | | | | [address] [place] | [address] [place] | Dx); B12 deficiency; | | | | [place] [address] | [place] [address] | Anxiety associated | | | | [phone] | [phone] | with depression; H/O | | | [...] | | | | | syndrome) | +--------+---------+ + + + Social History [...] + + + | Blood Pressure | 132/88 | 06/01/2018 1346 PST | + + + + | Pulse | 96 | 06/01/2018 1346 PST | + + + + | Temperature | 37.1 C (98.8 F) | 06/01/20186 PST | + + + + | Respiratory Rate | 16 | 06/01/2018 1346 PST | + + + + | Oxygen Saturation | 97% | 06/01/2018 1346 PST | + + + + | Inhaled Oxygen | - | - | | Concentration | | | + + + + | Weight | 90.3 kg (199 lb 1.2 | 06/01/2018 1346 PST | | | oz) | | + + + + | Height | 177.8 cm (5' 10") | 06/01/2018 1346 PST | + + + + | Body Mass Index | 28.56 | 06/01/2018 1346 PST | + + + + in this encounter Progress Notes Lexie Cagle, [place] - 06/01/2018 1500 PSTFormatting of this note may be differen t from the original. Subjective: Mian Marquez is a 68 y.o. male patient here for Fatigue (Chronic); Referral (Follow up) (De atology ); and Leg Pain (x2 weeks) Mian has many concerns today. He has noticed that he is much more profoundly fatigued ralph n normal which is very concerning for him. He states that he is sluggish. He has no desire to eat, but he is forcing himself to do so. As we discussed it further, he states that it's probably due to his depression, but he's worried as it continues to worsen. His psychiatrist has increased his duloxetine but has recommended he consider ECT as his de pression has been largely resistant to many many therapies. Mian has been considering it bu t is very hesitant. He is due for his next infusion for his MS this up coming week. Unfortunately, his neurolog ist is leaving the practice, so Mian is in need of a new MS specialist. Reports that his vision has become blurry. Denies any discharge or pain. Also c/o intermittent left knee pain that happens 1-2 times a day and "feels like something is ripping just under my knee cap". The pain resolves quickly and without intervention. H as had multiple surgeries to both knees. His right knee also irritates him as well. He is planning on having surgery on his left hand, but states that the pain is really bothe ring him during the interim. Requests a referral to derm for a dry, scaly/flaky patch of skin on his nose and his scalp. Requests refill on Requip and trazodone Outpatient Encounter Prescriptions as of 06/01/2018 Medication Sig Dispense Refill celecoxib (CELEBREX) 100 mg capsule Take 1 capsule by mouth Twice daily as needed for Pain. 60 capsule 2 cyanocobalamin (VITAMIN B-12) 1,000 mcg/mL injection 1,000 mcg. DULoxetine (CYMBALTA) [address] capsule Take 60 mg by mouth Daily. [DISCONTINUED] econazole 1% cream econazole 1 % topical cream Ergocalciferol (VITAMIN D2) 2000 units TABS Vitamin D2 50,000 unit capsule [DISCONTINUED] HYDROcodone-acetaminophen (NORCO) 5-325 mg per tablet Take 1-2 tablets b y mouth every 4 hours as needed for Pain. 10 tablet 0 OXYBUTYNIN CHLORIDE PO Take 1 tablet by mouth. Patient taking 15 mg daily rOPINIRole (REQUIP) 2 MG tablet Take 1 tablet by mouth nightly. 90 tablet 1 [DISCONTINUED] rOPINIRole (REQUIP) 2 MG tablet Take 2 mg by mouth as needed. traZODone (DESYREL) 100 mg tablet Take 1 tablet by mouth nightly. 30 tablet 0 [DISCONTINUED] traZODone (DESYREL) 100 mg tablet Take 100 mg by mouth nightly. No facility-administered encounter medications on file as of 06/01/2018. 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 Multiple sclerosis (HCC) Neurogenic bladder Past Surgical History: Procedure Laterality Date BACK SURGERY nerve stimulators CYSTOSCOPY N/A 04/19/2018 Procedure: Cystoscopy, bladder Botox, injection of urethral bulking agent; Surgeon: Gina Fernandes MD; Location: [facility] MAIN OR GASTRIC BYPASS SURGERY 2001 2 x KNEE SURGERY Bilateral LAP BAND 2010 urinary stimulator 2006 Family History Problem Relation Age of Onset Cancer Mother Cancer Father bone cancer Prostate cancer Neg Hx Social History Social History Marital status: Single Spouse name: N/A Number of children: N/A Years of education: N/A Occupational History Not on file. Social History Main Topics Smoking status: Never Smoker Smokeless tobacco: Never Used Alcohol use No Drug use: No Sexual activity: Yes Partners: Female control/ protection: Condom Other Topics Concern Not on file Social History Narrative No narrative on file Review of Systems Constitutional: Positive for malaise/fatigue. Negative for chills, fever and weight loss. Eyes: Positive for blurred vision. Musculoskeletal: Positive for joint pain. Negative for falls. Psychiatric/Behavioral: Positive for depression. Negative for suicidal ideas. Objective: BP 132/88 | Pulse 96 | Temp 37.1 C (98.8 F) (Temporal) | Resp 16 | Ht 1.778 m (5' 1 0") | Wt 90.3 kg (199 lb 1.2 oz) | SpO2 97% | BMI 28.56 kg/m Physical Exam Constitutional: He is oriented to person, place, and time and well-developed, well-nourishe d, and in no distress. HENT: Head: Normocephalic. Pulmonary/Chest: Effort normal. Musculoskeletal: Left wrist: He exhibits tenderness and swelling. Right knee: He exhibits normal range of motion, no swelling, no effusion, no deformity and no erythema. No tenderness found. Left knee: He exhibits normal range of motion, no swelling, no effusion, no deformity and no erythema. No tenderness found. Neurological: He is alert and oriented to person, place, and time. Skin: Skin is warm and dry. Psychiatric: Mood and affect normal. Assessment/Plan: Assessment: 1. Chronic fatigue disorder 2. B12 deficiency 3. Anxiety associated with depression 4. H/O Benito-en-Y gastric bypass 5. Iron malabsorption 6. Macrocytosis 7. Vitamin D deficiency 8. Skin eruption resembling psoriasis 9. Acute pain of left knee 10. Chronic pain of right knee 11. Left hand pain 12. RLS (restless legs syndrome) Plan: 1. Labs order for further evaluation of fatigue. 2. Discussed risks and benefits of ECT 3. Xrays of bilateral knees today. 4. Referral to [facility] Dermatology entered. 5. Refill on Requip and trazodone provided. - rOPINIRole (REQUIP) 2 MG tablet; Take 1 tablet by mouth nightly. Dispense: 90 tablet; Re fill: 1 - traZODone (DESYREL) 100 mg tablet; Take 1 tablet by mouth nightly. Dispense: 30 tablet; Refill: 0 6. Begin trial of celecoxib for knee and wrist pain. - celecoxib (CELEBREX) 100 mg capsule; Take 1 capsule by mouth Twice daily as needed for P ain. Dispense: 60 capsule; Refill: 2 Orders Placed This Encounter Procedures XR Knee Left 1 - 2 Vw XR Knee Right 1 - 2 Vw TSH T4, Free Vitamin B-12 Folate Vitamin D, Deficiency Screen (25-Hydroxy) Iron and Transferrin Comprehensive Metabolic Panel CBC with Differential Ferritin Referral to Dermatology [facility] Referral to [facility] Orthopedic Surgery Reviewed signs and symptoms that would warrant emergent evaluation. Patient verbalized unde rstanding. Return in about 4 weeks (around 06/29/2018). Patient understands, accepts, and agrees with this plan. Over 25 minuntes spent in face to face time with this patient today. > 50% of time consumer credit counselor ing regarding the listed conditions, options for treatment, and possible risks, and coordina ting care. Lexie Cagle, DNP, HOLTER TECHNICIAN, AGNP-Shalonda this encounter Plan of Treatment +--------+---------+ + + + | Date | Type | Specialty | Care Team | Description | +--------+---------+ + + + | 07/04/ | Office | Urology | Michael Fernandes | | | 2018 | Visit | | [address] | | | | | | [place] | | | | | | [address] | | | | | | | | +--------+---------+ + + + | 07/04/ | Office | Internal Medicine | Lexie Cagle | | | 2019 | Visit | | [address] | | | | | | [address] | | | | | | [place] [address] | | | | | | [phone] | | | | | | | | +--------+---------+ + + + + +--------+ + + | Name | Priori | Associated Diagnoses | Order Schedule | | | ty | | | + +--------+ + + | Referral to Dermatology [facility] | Routin | Skin eruption | Ordered: 06/01/2018 | | [place] | e | resembling psoriasis | | + +--------+ + + | Referral to [facility] Orthopedic | Routin | Acute pain of left | Ordered: 06/01/2018 | | Surgery | e | knee Chronic pain | | | | | of right knee | | + +--------+ + + as of this encounter Results XR Knee Right 1 [...] | | | + +---------+ + + Ferritin (06/01/2018 1452) + +-------+ + + | Component | Value | Ref Range | Performed At | + +-------+ + + | FERRITIN | 304 | 24 - 366 ng/mL | [facility] | | | | | [facility] | | | | | CENTER - | | | | | LABORATORY | + +-------+ + + + + | Specimen | + + | Blood | + + + + + + + | Performing | Address | City/State/Zipcode | Phone Number | | Organization | | | | + + + + + | [facility] | [address] | [place] | [phone] | | [facility] | | [address] | | | - LABORATORY | | | | + + + + + CBC with Differential (06/01/2018 1452) + + + + + | Component | Value | Ref Range | Performed At | + + + + + | WBC | 5.8 | 4.0 - 11.0 K/uL | [facility] | | | | | [facility] | | | | | [facility] [...] 0.00 | 0.00 - 0.01 K/uL | [facility] | | | | | [facility] | | | | | CENTER - | | | | | LABORATORY | + + + + + + + | Specimen | + + | Blood | + + + + + + + | Performing | Address | City/State/Zipcode | Phone Number | | Organization | | | | + + + + + | [facility] | [address] | [place] | [phone] | | [facility] | | [address] | | | - LABORATORY | | | | + + + + + Comprehensive Metabolic Panel (06/01/2018 1452) + + + + + [...] [facility] | | | | | [facility] | | | | | CENTER - | | | | | LABORATORY | + + + + + | Creatinine | 0.84 | 0.60 - 1.30 mg/dL | [facility]. | | | | | [facility] | | | | | CENTER - | | | | | LABORATORY | + + + + + | eGFR if not | >60Comment: GLOMERULAR | >=60 mL/min/1.73m2 | [facility] | | [place] | FILTRATION | | [facility] | | | RATE,ESTIMATED mL/min | | CENTER - | | | /1.03f9Hyur than 60 | | LABORATORY | | [...] 9.1 | 8.3 - 10.5 mg/dL | [facility] | | | | | [facility] | | | | | CENTER - | | | | | LABORATORY | + + + + + | Albumin | 4.3 | 3.2 - 5.0 g/dL | [facility] | | | | | [facility] | | | | | CENTER - | | | | | LABORATORY | + + + + + | Bilirubin Total | 1.0 | 0.1 - 1.5 mg/dL | [facility] | | | | | [facility] [...] | 1.7 | 0.8 - 2.0 | [facility] | | Ratio | | | [facility] | | | | | CENTER - | | | | | LABORATORY | + + + + + | BUN/Creatinine Ratio | 20.2 | | [facility] | | | | | [facility] [...] + | [facility] | [address] | [place] | [phone] | | [facility] | | [address] | | | - LABORATORY | | | | + + + + + Iron and Transferrin (06/01/20181451) + + + + + | Component | Value | Ref Range | Performed At | + + + + + | Iron | 81 | 50 - 160 ug/dL | [facility] | | | | | [facility] | | | | | CENTER - | | | | | LABORATORY | + + + + + | TRANSFERRIN | 198.8 (L) | 240.0 - 480.0 mg/dL | [facility] | | | | | [facility] | | | | | CENTER - [...] 29.1 | 20.0 - 55.0 % | [facility] | | | [...] + | [facility] | [address] | [place] | [phone] | | [facility] | | [address] | | | - LABORATORY | | | | + + + + + Vitamin D, Deficiency Screen (25-Hydroxy) (06/01/2018 1452) + +--------+ + + | Component | Value | Ref Range | Performed At | + +--------+ + + | Vitamin D, 25 | 11 (L) | 30 - 100 ng/mL | [facility] | | Hydroxy | | | [facility] | | | | | CENTER - | | | | | LABORATORY | + +--------+ + + + + | Specimen | + + | Blood | + + + + + + + | Performing | Address | City/State/Zipcode | Phone Number | | Organization | | | | + + + + + | [facility] | [address] | [place] | [phone] | | [facility] | | [address] | | | - LABORATORY | | | | + + + + + Folate (06/01/20182) + +-------+ + + | Component | Value | Ref Range | Performed At | + +-------+ + + | FOLATE | 19.4 | >5.8 ng/mL | [facility] | | | | | [facility] | | | | | CENTER - [...] [address] | [place] | [phone] | | [facility] | | [address] | | | - LABORATORY | | | | + + + + + Vitamin B-12 (06/01/2018 1452) + + + + + | Component | Value | Ref Range | Performed At | + + + + + | VITAMIN B-12 | 320Comment: | 180 - 914 pg/mL | [facility] | | | DEFICIENT: | | [facility] | | | <145 | | CENTER [...] [address] | [place] | [phone] | | [facility] | | [address] | | | - LABORATORY | | | | + + + + + T4, Free (06/01/2018 1452) + +-------+ + + | Component | Value | Ref Range | Performed At | + +-------+ + + | FT4 | 0.8 | 0.6 - 1.1 ng/dL | [facility] | | | | | [facility] | | | | | CENTER - | | | | | LABORATORY | + +-------+ + + + + | Specimen | + + | Blood | + + + + + + + | Performing | Address | City/State/Zipcode | Phone Number | | Organization | | | | + + + + + | [facility] | [address] | [place] | [phone] | | [facility] | | [address] | | | - LABORATORY | | | | + + + + + TSH (06/01/20181451) + + + + + | Component | Value | Ref Range | Performed At | + + + + + | TSH | 2.08Comment: This is a | 0.45 - 5.33 uIU/mL | [facility] | | | third generation TSH | | [facility] | | | test. | | CENTER [...] ST. | [address] | [place] | [phone] | | [facility] | | [address] | | | - LABORATORY | | | | + + + + + in this encounter Visit Diagnoses + + | Diagnosis | + + | Chronic fatigue disorder - Primary | + + | Chronic fatigue syndrome | + + | B12 deficiency | + + | Other B-complex deficiencies | + + | Anxiety associated with depression | + + | Dysthymic disorder | + + | H/O Benito-en-Y gastric bypass | + + | Bariatric surgery status | + + | Iron malabsorption | + + | Other specified intestinal malabsorption | + + | Macrocytosis | + + | Other specified diseases of blood and blood-forming organs | + + | Vitamin D deficiency | + + | Unspecified vitamin D deficiency | + + | Skin eruption resembling psoriasis | + + | Other psoriasis and similar disorders | + + | Acute pain of left knee | + + | Chronic pain of right knee | + + | Left hand pain | + + | Pain in limb | + + | RLS (restless legs syndrome) | + + | Restless legs syndrome (RLS) | + +
--- OUTSIDE RECORDS SUMMARY | ~2018-06-22 | XMS | Encounter Summary ---
Demographics + + + | Address | [address] | | | [place] [address] | + + + | Home Phone | | + + + | Preferred Language | Unknown | + + + | Marital Status | Single | + + + | Roman Catholic Affiliation | Unknown | + + + | Race | Unknown | + + + | Ethnic Group | Unknown | + + + Author + + + | Author | [facility] | | | and Jadenana | + + + | Organization | [facility] [...] Team Providers + +------+ + | Care Potline Monitor Name | Role | Phone | + +------+ + | Lexie Cagle | PCP | | | RESTAURANT ASSISTANT MANAGER | | | + +------+ + [...] [place] | | | | | [place] | | [address] Phone: | | | | | [facility]DRAIN | | [phone] | | | | | BLADDER | | Fax: | | | | | | | [phone] | +--------+--------+ + + + + Encounter Details +--------+ + + + + | Date | Type | Department | Care Team | Description | +--------+ + + + + | 06/20/ | Hospital | [facility] | Michael Fernandes | Neurogenic bladder; | | 2019 | Encounter | MED CTR OR INTRA OP | [address] | Urge incontinence | | | | [address] | [place], [place] | | | | | [place], [place] | [address] | | | | | [address] | | | | | | [phone] | | | +--------+ + + + [...] [place] | | | | | | [address] | | | | | | | | +--------+---------+ + + + | 07/04/ | Office | Internal Medicine | Lexie Cagle | | | 2019 | Visit | | [address] | | | | | | [address] | | | | | | [place] [address] | | | | | | [phone] | | | | | | | [...]
--- OUTSIDE RECORDS SUMMARY | ~2018-06-22 | XMS | Encounter Summary ---
Demographics + + + | Address | [address] | | | [place] [address] | + + + | Home Phone | | + + + | Preferred Language | Unknown | + + + | Marital Status | Single | + + + | Baptist Affiliation | Unknown | + + + | Race | Unknown | + + + | Ethnic Group | Unknown | + + + Author + + + | Author | [facility] | | | and Jadenana | + + + | Organization | [facility] [...] Team Providers + +------+ + | Care Construction Trench Digger Name | Role | Phone | + +------+ + | Lexie Cagle | PCP | | | DERMATOLOGY SALES REPRESENTATIVE | | | + +------+ + Encounter Details +--------+ + + + + | Date | Type | Department | Care Team | Description | +--------+ + + + + | 06/01/ | Hospital | [facility] | Lexie Cagle | Acute pain of left | | 2019 | Encounter | MED [facility] [address] [facility] | [address] | knee; Chronic pain | | | | [address] [place] | [address] [place] | of right knee | | | | [place], [place] | [place] [address] | | | | | [address] | [phone] | | | | | [phone] | | | +--------+ + + + [...] 07/04/ | Office | Urology | Michael Fernaneds | | | 2019 | Visit | | [address] | | | | | | [facility] [place] | | | | | | [address] | | | | | | | | +--------+---------+ + + + | 07/04/ | Office | Internal Medicine | Lexie Cagle | | | 2019 | Visit | | [address] | | | | | | [address] [place] | | | | | | [place] [address] | | | | | | [phone] | | | | | | | [...]
--- OUTSIDE RECORDS SUMMARY | ~2018-06-22 | XMS | Encounter Summary ---
Demographics + + + | Address | [address] | | | [place] [address] | + + + | Home Phone | | + + + | Preferred Language | Unknown | + + + | Marital Status | Single | + + + | Denominational Affiliation | Unknown | + + + | Race | Unknown | + + + | Ethnic Group | Unknown | + + + Author + + + | Author | [facility] | | | and Jadenana | + + + | Organization | [facility] [...] Team Providers + +------+ + | Care Ragman Name | Role | Phone | + +------+ + | Lexie Cagle | PCP | | | POOL TECHNICIAN | | | + +------+ + Reason for Visit + + + | Reason | Comments | + + + | Lab Order | | + + + Encounter Details +--------+ + + + + | Date | Type | Department | Care Team | Description | +--------+ + + + + | 06/01/ | Telephone | [facility] | Lexie Cagle | Lab Order | | 2019 | | MEDICINE [address] | [place] POOL TECHNICIAN [address] | | | | | [address] [place] | [address] [place] | | | | | [place] [address] | [place] [address] | | | | | [phone] | [phone] | | | | | | | [...] [place] | | | | | | [address] | | | | | | | | +--------+---------+ + + + | 07/04/ | Office | Internal Medicine | Lexie Cagle | | | 2019 | Visit | | [address] | | | | | | [address] | | | | | | [place] [address] | | | | | | [phone] | | | | | | | | +--------+---------+ + + + as of this encounter Visit Diagnoses Not on filein this encounter"
--- OUTSIDE RECORDS SUMMARY | ~2018-06-22 | XMS | Encounter Summary ---
Demographics + + + | Address | [address] | | | [place] [address] | + + + | Home Phone [...] + | Author | [facility] | | | and Jadenana | + + + | Organization | [facility] | | [...] Team Providers + +------+ + | Care Teaching Dietitian Name | Role | Phone | + +------+ + | Lexie Cagle | PCP | | | SHIM PLUG CUTTER | | | + +------+ + Reason for Visit + + + | Reason | Comments | + + + | Neurogenic Bladder | treatment options | + + + Encounter Details +--------+---------+ + + + | Date | Type | Department | Care Team | Description | +--------+---------+ + + + | 04/30/ | Office | [facility] | Michael Fernandes | Neurogenic bladder | | 2019 | Visit | [address] | MD [address] | (Primary Dx); | | | | [place], [place] | [place], [place] | Intrinsic sphincter | | | | [address] | [address] | deficiency (ISD); | | | | [phone] | | Urge incontinence | +--------+---------+ + [...] + | Blood Pressure | 140/80 | 04/30/2018845 PST | + + + + | Pulse | 72 | 04/30/2018845 PST | + + + + | Temperature | - | - | + + + + | Respiratory Rate | 18 | 04/30/2018845 PST | + + + + | Oxygen Saturation | - | - | + + + + | Inhaled Oxygen | - | - | | Concentration | | | + + + + | Weight | 89.5 kg (197 lb 5 | 04/30/2018845 PST | | | oz) | | + + + + | Height | 177.8 cm (5' 10") | 04/30/2018 0846 PST | + + + + | Body Mass Index | 28.31 | 04/30/2018 0846 PST | + + + + in this encounter Progress Notes Michael Fernandes MD - 04/30/2018 0900 PSTFormatting of this note may be different fr [...] bulking agent; Surgeon: Gina Fernandes MD; Location: [facility] MAIN OR GASTRIC BYPASS SURGERY 2001 [...] have not thoroughly proofread this note, and v belt finisher errors are very likely to occur. CC: Lexie Cagle APRN in this encounter Plan of Treatment +--------+---------+ + + + | Date | Type | Specialty | Care Team | Description | +--------+---------+ + + + | 07/04/ | Office | Urology | Michael Fernandes | | | 2019 | Visit | | MD Yaw [address] | | | | | | [place] | | | | | | [address] | | | | | | | | +--------+---------+ + + + | 07/04/ | Office | Internal Medicine | CagleLexie | | | 2018 | Visit | | [address] | | | | | | [address] | | | | | | [place] [address] | | | | | | [phone] | | | | | | | | +--------+---------+ + + + as of this encounter Visit Diagnoses + + | Diagnosis | + + | Neurogenic bladder - Primary | + + | Neurogenic bladder, NOS | + + | Intrinsic sphincter deficiency (ISD) | + + | Intrinsic (urethral) sphincter deficiency (ISD) | + + | Urge incontinence | + +
--- OUTSIDE RECORDS SUMMARY | ~2018-06-22 | XMS | Encounter Summary ---
Demographics + + + | Address | [address] | | | [place] [address] | + + + | Home Phone [...] | Author | [facility] | | | and Jadenana | + + + | Organization | [facility] | | [...] Team Providers + +------+ + | Care Solar Sales Consultant Name | Role | Phone | + +------+ + | No, Physician | PCP | Unavailable | + +------+ + Reason for Visit + + + | Reason | Comments | + + + | Surgery Appointment | | + + + Encounter Details +--------+ + + + + | Date | Type | Department | Care Team | Description | +--------+ + + + + | 04/17/ | Telephone | [facility] | Michael Fernandes | Surgery Appointment | | 2019 | | [address] | MD Y[address] | | | | | [place], [place] | [place], [place] | | | | | [address] | [address] | | | | | [phone] | | | +--------+ + + + [...] [place] | | | | | | [address] | | | | | | | | +--------+---------+ + + + | 07/04/ | Office | Internal Medicine | Lexie Cagle | | | 2019 | Visit | | [address] | | | | | | [address] | | | | | | [place] [address] | | | | | | [phone] | | | | | | | | +--------+---------+ + + + as of this encounter Visit Diagnoses Not on filein this encounter"
--- OUTSIDE RECORDS SUMMARY | ~2018-06-22 | XMS | Clinical Summary ---
Demographics + + + | Address | [address] | | | [place] [address] | + + + | Home Phone | | + + + | Preferred Language | Unknown | + + + | Marital Status | Single | + + + | Hindu Affiliation | PENTECOSTAL | + + + [...] Team Providers + +------+ + | Care Quarry Plug And Feather Driller Name | Role | Phone | + +------+ + | Jose Hameed MD | PP | | + +------+ + Source Comments TERRELL is fully live on both [facility] Allergies + + + + + [...] | + + + + + + Current Medications + + +---------+---------+------+------+-------+ | Prescription | Sig. | Disp. | Refills | Star | End | Statu | | | | | | t | Date | s | | | | | | Date | | | + + +---------+---------+------+------+-------+ | ONABOTULINUMTOXINA | by injection route | | | | | Activ | | (BOTOX INJ) | as needed | | | | | e | | | (neurogenic | | | | | | | | bladder). | | | | | | + + +---------+---------+------+------+-------+ | NaCl 0.9 % solp | Inject into the | | | | | Activ | | 500 mL with iron | vein (IV) once. | | | | | e | | dextran 100 mg/2 mL | Every 2 months | | | | | | | (50 mg/mL) soln | | | | | | | + + +---------+---------+------+------+-------+ | cyanocobalamin | Inject into the | | | 092 | | Activ | | 1,000 mcg/mL | muscle (IM). | | | 12/14 | | e | | injection solution | | | | 14 | | | + + +---------+---------+------+------+-------+ | rOPINIRole 2 mg | Take 2 mg by mouth | | | 10/ | | Activ | | oral tablet | once daily in the | | | 06/13 | | e | | | evening. | | | 14 | | | + + +---------+---------+------+------+-------+ | iron sucrose 100 | Every other month | | | 08/ | | Activ | | mg iron/5 mL | | | | 12/14 | | e | | intravenous solution | | | | 15 | | | + + +---------+---------+------+------+-------+ | gabapentin 300 mg | Take 1 capsule by | 90 | 1 | 08/ | | Activ | | oral | mouth three times | capsule | | 06/13 | | e | | capsuleIndications: | daily. Indications: | | | 16 | | | | Neuropathic Pain | NEUROPATHIC PAIN | | | | | | + + +---------+---------+------+------+-------+ | Cholecalciferol, | Take 5,000 Units by | | | | | Activ | | Vitamin D3, (VITAMIN | mouth once daily. | | | | | e | | D3) 5,000 unit oral | | | | | | | | tablet | | | | | | | + + +---------+---------+------+------+-------+ | oxyCODONE, | Take 5 mg by mouth | | | | | Activ | | immediate release, 5 | every six hours as | | | | | e | | mg oral tablet | needed. | | | | | | + + +---------+---------+------+------+-------+ | modafinil 200 mg | Take 1 tablet by | 60 | 5 | 04/27 | | Activ | | oral tablet | mouth two times | tablet | | 07/14 | | e | | | daily. | | | 18 | | | + + +---------+---------+------+------+-------+ | metoprolol | Take by mouth two | | | 06/ | | Activ | | tartrate 25 mg oral | times daily. | | | 0/20 | | e | | tablet | | | | 18 | | | + + +---------+---------+------+------+-------+ | warfarin 5 mg oral | Take 5 mg by mouth | | | 11/25 | | Activ | | tablet | once daily. | | | 8 | | e | | | | | | 18 | | | + + +---------+---------+------+------+-------+ | polyethylene | Mix in liquid and | | | 10/0 | | Activ | | glycol 17 gram/dose | drink. | | | 3/20 | | e | | oral powder | | | | 18 | | | + + +---------+---------+------+------+-------+ | senna (SENNA) 8.6 | Take by mouth. | | | 10/0 | | Activ | | mg oral tablet | | | | 3/20 | | e | | | | | | 18 | | | + + +---------+---------+------+------+-------+ | traZODone 100 mg | Take 2 tablets by | 60 | 2 | 03/2 | | Activ | | oral | mouth once daily at | tablet | | 2/20 | | e | | tabletIndications: | bedtime. Dispense 3 | | | 19 | | | | insomnia associated | months if possible | | | | | | | with depression | Indications: | | | | | | | | insomnia associated | | | | | | | | with depression | | | | | | + + +---------+---------+------+------+-------+ | DULoxetine 30 mg | Take 1 capsule by | 30 | 2 | 03/2 | | Activ | | oral capsule,delayed | mouth once daily. To | capsule | | 8/20 | | e | | | be taken with 60mg | | | 19 | | | | release(DR/EC)Indica | capsule daily for | | | | | | | tions: major | total dose of 90mg | | | | | | | depressive disorder | day. Indications: | | | | | | | | major depressive | | | | | | | | disorder | | | | | | + + +---------+---------+------+------+-------+ | DULoxetine 60 mg | Take 1 capsule by | 30 | 2 | 03/2 | | Activ | | oral capsule,delayed | mouth once daily. 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 | + + + | [...] | Pulmonary embolism and infarction (HCC) | 03/10/2014 | + + + + + | Overview: Overview: | | 1978 | + + + + + | Major depression | 02/19/2014 | + + + | Anxiety associated with depression | 02/19/2014 | + + + | Multiple sclerosis (HCC) | 02/19/2014 | + + + | [...] | | | | | + + Encounters +--------+ + + + + | Date | Type | Specialty | Care Team | Description | +--------+ + + + + | 06/05/ | Hospital | | Lucho Pittman | | | 2018 | Encounter | | | | +--------+ + + + + | 05/03/ | Telephone | Jhony Claire | Scheduling | | 2018 | | | MD Patrick | | +--------+ + + + + | 05/03/ | Connie Scratcher | | [place]ot[place], | | | 2018 | | | MD Patrick | | +--------+ + + + + from Last 3 Months Family History + + +------+ + | [...] Height | 177.8 cm (5' 10") | 10/31/2016 3:28 PM PDT | + + + + | Body Mass Index | 28.02 | 06/05/2018 10:30 AM PDT | + + + + Plan of Treatment +--------+ + + + + | Date | Type | Specialty | Care Team | Description | +--------+ + + + + | 07/25/ | Office | | Christian Maldonado MD | | | 2019 | Visit | | [address] | | | | | | [place], | | | | | | [place] [address] | | | | | | [phone] | | | | | | | | +--------+ + + + + | 09/21/ | Office | | Ethel Romo MD | | | 2019 | Visit | | [address] | | | | | | [place], [place] | | | | | | [address] | | | | | | [phone] | | | | | | | | +--------+ + + + + | 11/20/ | Appointment | | [address] | | | 2019 | | | [place], | | | | | | [place] [address] | | +--------+ + + + + + + + + + | Health Maintenance | Due Date | Last Done | Comments | + + + + + | ELECTROLYTES | | 09/19/2016, 03/15/2004, | | | | 8 | 09/15/2003, Additional history | | | | | exists | | + + + + + | LIVER FUNCTION TEST | | 09/19/2016, 02/03/2015, | | | | 8 | 03/15/2004, Additional history | | | | | exists | | + + + + + | CREATININE | | 06/01/2018, 09/19/2016, | | | | 0 | 03/15/2004, Additional history | | | | | exists | | + + + + + | Pneumococcal (Adult) | | 06/29/2017, 12/26/2015, | | | (2 of 2 - PPSV23) | 1 | 09/01/2015, Additional history | | | | | exists | | + + + + + | Influenza (Flu) | Completed | 02/07/2018, 03/27/2017, | | | vaccination | | 01/26/2017, Additional history | | | | | [...] fier | | / Lot | + +------+------+ +--------+--------+--------+ [...] by | | | | | | [id number] | | Diogo Fregoso [place] | | | | | | /[id number] | | | | | | | | [id number] | | | | | | | | / | + +------+------+ +--------+--------+--------+ + +------+-------+ +--------+--------+--------+ | Explanted | Type | Area | Manufacture | Device | Expira | Model | | | | | r | | tion | / | | | | | | Identi | Date | Serial | | | | | | fier | | / Lot | + +------+-------+ +--------+--------+--------+ [...] MD | | | | | | /[id number] | | | | | | | | | | | | | | | | /[id number] | | | | | | | | 13 | + +------+-------+ +--------+--------+--------+ | Lead Adaptor | | | | | | [id number] | | Kit-11/16/2016Implanted: | | | | | | [id number] | | 11/16/2016 by [employer], | | | | | | / | | Diogo Frank MD (Quantity not on | | | | | | /[id number] | | file) | | | | | | 795 | + +------+-------+ +--------+--------+--------+ Results Not on filefrom Last 3 Months Insurance + +--------+ +--------+ + + | Payer | Benefi | Subscriber | Type | Phone | Address | | | t Plan | ID | | | | | | / | | | | | | | Group | | | | | + +--------+ +--------+ + + | MEDICARE | MEDICA | xxxxxxxxxxx | Medica | [phone] [address] | | | RE A & | | re | [phone] | [place] [address] | | | B | | | | | + +--------+ +--------+ + + | [employer] | AARP | xxxxxxxxxxx | Indemn | [phone] | [address] | | RETIRED PEOPLE | | | ity | [phone] | [place] [address] | + +--------+ +--------+ + + + +--------+ +--------+ + + | Guarantor Name | Accoun | Relation to | Date | Phone | Billing Address | | | t Type | Patient | of | | | | | | | | | | + +--------+ +--------+ + + | DEBBI MARQUEZ | Person | Self [birth year] | Home: | [address] | | | al/Fam | | 1949 | [phone] | [place], [place] | | | starr | | | [phone] | [address] | + +--------+ +--------+ + + | DEBBI MARQUEZ | Psych | Self | [birth year] | Home: | [address] | | | | | 2 | [phone] | [place], [place] | | | | | | [address] | [address] | + +--------+ +--------+ + +
--- OUTSIDE RECORDS SUMMARY | ~2018-06-22 | XMS | Encounter Summary ---
Demographics + + + | Address | [address] | | | [place] [address] | + + + | Home Phone | | + + + | Preferred Language | Unknown | + + + | Marital Status | Single | + + + | Gnosticism Affiliation | Unknown | + + + | Race | Unknown | + + + | Ethnic Group | Unknown | + + + Author + + + | Author | [facility] | | | and Jadenana | + + + | Organization | [facility] | | | and Jadenana | [...] Providers + +------+ + | Care Vest Front Presser Name | Role | Phone | + +------+ + | No, Physician | PCP | Unavailable | + +------+ + Encounter Details +--------+---------+ + + + | Date | Type | Department | Care Team | Description | +--------+---------+ + + + | 04/19/ | Surgery | [facility] | Michael Fernandes | Cystoscopy, bladder | | 2019 | | [facility] | MD Y[address] | Botox, injection of | | | | [address] | [facility] [place] | urethral bulking | | | | [place], [place] | [address] | agent | | | | [address] | | | | | | [phone] | | | +--------+---------+ + + + [...] [place] | | | | | | [address] | | | | | | | | +--------+---------+ + + + | 07/04/ | Office | Internal Medicine | Lexie Cagle | | | 2018 | Visit | | [address] | | | | | | [address] | | | | | | [place] [address] | | | | | | [phone] | | | | | | | [...] + | [address] | [address] | [place] | [phone] | | [facility] | | [address] | | | - LABORATORY | | [...] BENITES MD | | | | | (12126) on 04/19/2018 | | | | | [...] day), First | | | dose on [facility] 04/19/18 at 1500, For | | | 3 days, Start 8 hours after | | | pre-op dose. | | + +---+ | | | + +---+ | albuterol 2.5 mg/3 mL nebulizer | | | solution 2.5 mg 2.5 mg, | | | Nebulization, ONCE PRN, Wheezing, | | | Starting [facility] 04/19/18 at 1150, | | | For 1 dose, RT will administer. | | + +---+ | | | + +---+ | albuterol 2.5 mg/3 mL nebulizer | | | solution 2.5 mg 2.5 mg, | | | Nebulization, ONCE PRN, Wheezing, | | | Starting [facility] 04/19/18 at 1340, | | | For [...] glucose < 50, | | | Starting [facility] 04/19/18 at 1150, | | | Repeat [...] day), | | | First dose on [facility] 04/19/18 at | | | 2200, For [...] 9 14:56 | | | | | [facility] 04/19/18 at 1445, For 1 dose, | [...] | | Site | | Intradermal, ONCE, [facility] 04/19/18 at | | PST | | [...] | | | | | | Starting [facility] 04/19/18 at 1436, | | | | | | | Administer with meals. | | | | | | + +-------+ +--------+---+---+ +---+---+ | | | +---+---+ in this encounter
--- OUTSIDE RECORDS SUMMARY | ~2018-06-22 | XMS | Encounter Summary ---
Demographics + + + | Address | [address] | | | [place] [address] | + + + | Home Phone | | + + + | Preferred Language | Unknown | + + + | Marital Status | Single | + + + | Orthodoxy Affiliation | Unknown | + + + | Race | Unknown | + + + | Ethnic Group | Unknown | + + + Author + + + | Author | [facility] | | | and Jadenana | + + + | Organization | [facility] | | | and Jadenana [...] Team Providers + +------+ + | Care Automotive Product Engineer Name | Role | Phone | + +------+ + | Lexie Cagle | PCP | | | SECURITY ASSURANCE ANALYST | | | + +------+ + Reason for Visit + + + | Reason | Comments | + + + | Surgery Appointment | | + + + Encounter Details +--------+ + + + + | Date | Type | Department | Care Team | Description | +--------+ + + + + | 06/13/ | Telephone | [facility] | Michael Fernandes | Surgery Appointment | | 2019 | | [address] | MD [address] | | | | | [place], [place] | [place], [place] | | | | | [address] | [address] | | | | | [phone] | | | +--------+ + + + [...] [place] | | | | | | [address] | | | | | | | | +--------+---------+ + + + | 07/04/ | Office | Internal Medicine | Lexie Cagle | | | 2018 | Visit | | [address] | | | | | | [address] | | | | | | [place] [address] | | | | | | [phone] | | | | | | | | +--------+---------+ + + + as of this encounter Visit Diagnoses Not on filein this encounter"
--- OUTSIDE RECORDS SUMMARY | ~2018-06-22 | XMS | Encounter Summary ---
Demographics + + + | Address | [address] | | | [place] [address] | + + + | Home Phone [...] | [facility] | | | and Jadenana | + + + | Organization | [facility] | | | and Jadenana | [...] Team Providers + +------+ + | Care Hull Sorter Name | Role | Phone | + +------+ + | Lexie Cagle | PCP | | | BRIDGE DESIGN ENGINEER | | | + +------+ + Reason for Visit + + + | Reason | Comments | + + + | Surgery Appointment | | + + + Encounter Details +--------+ + + + + | Date | Type | Department | Care Team | Description | +--------+ + + + + | 04/30/ | Telephone | [facility] | Michael Fernandes | Surgery Appointment | | 2019 | | [address] | MD [address] | | | | | [place], [place] | [place], [place] | | | | | [address] | [address] | | | | | [phone] | | | +--------+ + + + [...] [place] | | | | | | [id number] | | | | | | | | +--------+---------+ + + + | 07/04/ | Office | Internal Medicine | Lexie Cagle | | | 2018 | Visit | | [address] | | | | | | [address] | | | | | | [place] [address] | | | | | | [phone] | | | | | | | | +--------+---------+ + + + as of this encounter Visit Diagnoses Not on filein this encounter"
--- OUTSIDE RECORDS SUMMARY | ~2018-06-22 | XMS | Encounter Summary ---
Demographics + + + | Address | [address] | | | [place] [address] | + + + | Home Phone | | + + + | Preferred Language | Unknown | + + + | Marital Status | Single | + + + | Sikhism Affiliation | Unknown | + + + | Race | Unknown | + + + | Ethnic Group | Unknown | + + + Author + + + | Author | [facility] | | | and Jadenana | + + + | Organization | [facility] | | | and Jadenana | [...] Providers + +------+ + | Care Special Machine Stitcher Name | Role | Phone | + [...] + + | 01/10/ | Telephone | [facility] | Michael Fernandes | Results, Critical | | 2019 | | [address] | MD [address] | | | | | [place], [place] | [place], [place] | | | | | [address] | [address] | | | | | [phone] | | | +--------+ + + + [...] 2019 | Visit | | MD Yaw [facility] [address] | | | | | | [place] | | | | | | [address] | | | | | | | | +--------+---------+ + + + | 07/04/ | Office | Internal Medicine | Lexie Cagle | | | 2019 | Visit | | [address] | | | | | | [address] | | | | | | [place] [address] | | | | | | [phone] | | | | | | | | +--------+---------+ + + + as of this encounter Visit Diagnoses Not on filein this encounter"
--- OUTSIDE RECORDS SUMMARY | ~2018-06-22 | XMS | Encounter Summary ---
Demographics + + + | Address | [address] | | | [place] [address] | + + + | Home Phone | | + + + | Preferred Language | Unknown | + + + | Marital Status | Single | + + + | Moravian Affiliation | Unknown | + + + | Race | Unknown | + + + | Ethnic Group | Unknown | + + + Author + + + | Author | [facility] | | | and Jadenana | + + + | Organization | [facility] | | [...] Providers + +------+ + | Care Chemical Process Analyst Name | Role | Phone | + +------+ + | Lexie Cagle | PCP | | | ZINC MINER BLASTING | | | + +------+ + Reason [...] [address] | | | | | [place], [place] | [place], [place] | | | | | [address] | [address] | | | | | [phone] | | | +--------+ + + + [...] [place] | | | | | | [address] | | | | | | | | +--------+---------+ + + + | 07/04/ | Office | Internal Medicine | Lexie Cagle | | | 2018 | Visit | | [address] | | | | | | [address] | | | | | | [place] [address] | | | | | | [phone] | | | | | | | | +--------+---------+ + + + as of this encounter Visit Diagnoses Not on filein this encounter"
--- OUTSIDE RECORDS SUMMARY | ~2018-06-22 | XMS | Encounter Summary ---
Demographics + + + | Address | [address] | | | [place] [address] | + + + | Home Phone | | + + + | Preferred Language | Unknown | + + + | Marital Status | Single | + + + | Restorationism Affiliation | Unknown | + + + | Race | Unknown | + + + | Ethnic Group | Unknown | + + + Author + + + | Author | [facility] | | | and Jadenana | + + + | Organization | [facility] | | | and [...] Team Providers + +------+ + | Care Spinning Bath Person Name | Role | Phone | + +------+ + | Lexie Cagle | PCP | | | CERTIFIED RESIDENTIAL MEDICATION AIDE | | | + +------+ + [...] [address] | | | | | [place], [place] | [place], [place] | | | | | [address] | [address] | | | | | [phone] | | | +--------+ + + + [...] [place] | | | | | | [address] | | | | | | | | +--------+---------+ + + + | 07/04/ | Office | Internal Medicine | Lexie Cagle | | | 2018 | Visit | | [address] | | | | | | [address] | | | | | | [place] [address] | | | | | | [phone] | | | | | | | | +--------+---------+ + + + as of this encounter Visit Diagnoses Not on filein this encounter"
--- OUTSIDE RECORDS SUMMARY | ~2018-06-22 | XMS | Encounter Summary ---
Demographics + + + | Address | [address] | | | [place] [address] | + + + | Home Phone | | + + + | Preferred Language | Unknown | + + + | Marital Status | Single | + + + | Holiness Affiliation | Unknown | + + + | Race | Unknown | + + + | Ethnic Group | Unknown | + + + Author + + + | Author | [facility] | | | and Jadenana | + + + | Organization | [facility] | | | and [place] | + + + | Address | Unknown | + + + | Phone | Unavailable | + + + Support + + +---------+ + | Name | Relationship | Address | Phone | + + +---------+ + | Triny uW | ECON | Unknown | | + + +---------+ + Care Team Providers + +------+ + | Care Personal Lines Insurance Agent Name | Role | Phone | + [...] + | 04/17/ | Telephone | [facility] | Michael eFrnandes | Surgery Appointment | | 2019 | | [address] | MD [address] | | | | | [place], [place] | [place], [place] | | | | | [address] | [address] | | | | | [phone] | | | +--------+ + + + [...] [place] | | | | | | [address] | | | | | | | | +--------+---------+ + + + | 07/04/ | Office | Internal Medicine | Lexie Cagle | | | 2019 | Visit | | [address] | | | | | | [address] | | | | | | [place] [address] | | | | | | [phone] | | | | | | | | +--------+---------+ + + + as of this encounter Visit Diagnoses Not on filein this encounter"
--- OUTSIDE RECORDS SUMMARY | ~2018-06-22 | XMS | Encounter Summary ---
Demographics + + + | Address | [address] | | | [place] [address] | + + + | Home Phone [...] + | Author | [facility] | | | and Jadenana | + + + | Organization | [facility] | | | and Jadenana [...] Team Providers + +------+ + | Care Cylinder Die Machine Operator Name | Role | Phone | + +------+ + | Lexie Cagle | PCP | | | SUPERVISOR IN CHARGE | | | + +------+ + Reason [...] [address] | | | | | [place], [place] | [place], [place] | | | | | [address] | [address] | | | | | [phone] | | | +--------+ + + + [...] [place] | | | | | | [address] | | | | | | | | +--------+---------+ + + + | 07/04/ | Office | Internal Medicine | Lexie Cagle | | | 2018 | Visit | | [address] | | | | | | [address] | | | | | | [place] [address] | | | | | | [phone] | | | | | | | | +--------+---------+ + + + as of this encounter Visit Diagnoses Not on filein this encounter"
--- OUTSIDE RECORDS SUMMARY | ~2018-06-22 | XMS | Encounter Summary ---
Demographics + + + | Address | [address] | | | [place] [address] | + + + | Home Phone | | + + + | Preferred Language | Unknown | + + + | Marital Status | Single | + + + | Pentecostalism Affiliation | Unknown | + + + | Race | Unknown | + + + | Ethnic Group | Unknown | + + + Author + + + | Author | [facility] | | | and Jadenana | + + + | Organization | [facility] | | | and [...] Team Providers + +------+ + | Care Trimming Machine Operator Name | Role | Phone | + +------+ + | Lexie Cagle | PCP | | | EQUIPMENT SERVICE TECHNICIAN | | | + +------+ + [...] [address] | | | | | [place], [place] | [facility], [place] | | | | | [address] | [address] | | | | | [phone] | | | +--------+ + + + [...] [place] | | | | | | [id number] | | | | | | | | +--------+---------+ + + + | 07/04/ | Office | Internal Medicine | Lexie Cagle | | | 2018 | Visit | | [address] | | | | | | [address] | | | | | | [place] [address] | | | | | | [phone] | | | | | | | | +--------+---------+ + + + as of this encounter Visit Diagnoses Not on filein this encounter"
--- OUTSIDE RECORDS SUMMARY | ~2018-06-22 | XMS | Encounter Summary ---
Demographics + + + | Address | [address] | | | [place] [address] | + + + | Home Phone [...] Author | [facility] | | | and Jadenana | + + + | Organization | [facility] | | | and Jadenana [...] Team Providers + +------+ + | Care Second Rigger Name | Role | Phone | + +------+ + | Lexie Cagle | PCP | | | DATA INTEGRITY ANALYST | | | + +------+ + [...] [place] | | | | | [place] | | [address] Phone: | | | | | INCISE/DRAIN | | [phone] | | | | | BLADDER | | Fax: | | | | | | | [phone] | +--------+--------+ + + + + Encounter [...] | | | | | [address] | [place] | | | | | [place]CIOUS [place] | [address] | | | | | [address] | | | | | | [phone] | | | +--------+ + + + [...] 06/20/18 1140 by | | eral | qarr-hvu-kliish catheter system; | Cate De Paz RN [...] [place] | | | | | | [id number] | | | | | | | | +--------+---------+ + + + | 07/04/ | Office | Internal Medicine | Lexie Cagle | | | 2018 | Visit | | [address] | | | | | | [address] [address] | | | | | | [place] [address] | | | | | | [phone] | | | | | | | [...]
--- OUTSIDE RECORDS SUMMARY | ~2018-06-22 | XMS | Encounter Summary ---
Demographics + + + | Address | [address] | | | [place] [address] | + + + | Home Phone [...] | [facility] | | | and Jadenana | + + + | Organization | [facility] | | [...] Providers + +------+ + | Care Accounting Technician Name | Role | Phone | + +------+ + | Lexie Cagle | PCP | | | PAINT STRIPING MACHINE OPERATOR | | | + +------+ [...] + + | 06/07/ | Office | [facility] | Michael Fernandes | Pyuria (Primary Dx); | | 2018 | Visit | [address] | MD Yaw [address] | Neurogenic bladder; | | | | [place], [place] | [place], [place] | Urinary | | | | [address] | [address] | incontinence without | | | | [phone] | | sensory awareness | +--------+---------+ + [...] June 20, 2018 at 10:45 AM at [facility]. Please report to the Surgery and [...] you home after surgery. Call us at [phone] with any questions. [x] Pain management booklet [...] bulking agent; Surgeon: Gina Fernandes MD; Location: [facility] MAIN OR GASTRIC BYPASS SURGERY 2001 [...] UA, POC Negative Negative, 100 mg/dL Specific [place], UA, POC 1.020 1.001 - 1.030 Blood, [...] have not thoroughly proofread this note, and automatic print developer errors are very likely to occur. CC: Lexie Cagle APRN in this encounter Plan of Treatment +--------+---------+ + + + | Date | Type | Specialty | Care Team | Description | +--------+---------+ + + + | 07/04/ | Office | Urology | Michael Fernandes | | | 2018 | Visit | | MD Yaw [address] [place] [address] | | | | | | [place], [place] | | | | | | [address] | | | | | | | | +--------+---------+ + + + | 07/04/ | Office | Internal Medicine | Lexie Cagle | | | 2018 | Visit | | [address] | | | | | | [address] | | | | | | [place] [address] | | | | | | [phone] | | | | | | | [...] + + + + + | Specific [place], | 1.020 | 1.001 - 1.030 | [...] [address] | [place] | [phone] | | [facility] | | [address] | | | - LABORATORY | | [...]
--- OUTSIDE RECORDS SUMMARY | ~2018-06-22 | XMS | Encounter Summary ---
Demographics + + + | Address | [address] | | | [place] [address] | + + + | Home Phone | | + + + | Preferred Language | Unknown | + + + | Marital Status | Single | + + + | Restorationist Affiliation | Unknown | + + + [...] Team Providers + +------+ + | Care Sat Instructor Name | Role | Phone | + +------+ + | Lexie Cagle | PCP | | | LINK TRAINER TEACHER | | | + +------+ + Encounter Details +--------+ + + + + | Date | Type | Department | Care Team | Description | +--------+ + + + + | 05/21/ | Episode | [facility]CIOUS [facility] | Manju Mccartney | | | 2019 | Changes | [address] | | | | | [place] | | | | | | [address] | | | | | | [phone] | | | +--------+ + + + [...] [place] | | | | | | [address] | | | | | | | | +--------+---------+ + + + | 07/04/ | Office | Internal Medicine | Lexie Cagle | | | 2018 | Visit | | Arleen, LINK TRAINER TEACHER [address] | | | | | | [address] | | | | | | [place] [address] | | | | | | [phone] | | | | | | | | +--------+---------+ + + + as of this encounter Visit Diagnoses Not on filein this encounter"
--- OUTSIDE RECORDS SUMMARY | ~2018-06-22 | XMS | Encounter Summary ---
Demographics + + + | Address | [address] | | | [place] [address] | + + + | Home Phone [...] + + | Author | [facility] | | | and Jadenana | + + + | Organization | [facility] | | | and Jadenana [...] Providers + +------+ + | Care Supervisor Of Communications Name | Role | Phone | + [...] + + | 01/10/ | Telephone | [facility] | Michael Fernandes | Results, Critical | | 2019 | | [address] | MD Yaw [address] | | | | | [place], [place] | [place], [place] | | | | | [address] | [address] | | | | | [phone] | | | +--------+ + + + [...] 2019 | Visit | | MD Yaw [facility] [address] | | | | | | [place] | | | | | | [address] | | | | | | | | +--------+---------+ + + + | 07/04/ | Office | Internal Medicine | Lexie Cagle | | | 2019 | Visit | | [address] | | | | | | [address] [address] | | | | | | [place] [address] | | | | | | [phone] | | | | | | | | +--------+---------+ + + + as of this encounter Visit Diagnoses Not on filein this encounter"
--- OUTSIDE RECORDS SUMMARY | ~2018-06-22 | XMS | Encounter Summary ---
Demographics + + + | Address | [address] | | | [place] [address] | + + + | Home Phone | | + + + | Preferred Language | Unknown | + + + | Marital Status | Single | + + + | Pentecostalism Affiliation | UATSDIN | + + + [...] Team Providers + +------+ + | Care Liquefaction Plant Operator Name | Role | Phone | + +------+ + | Jose Hameed MD | PCP | | + +------+ + Encounter Details +--------+ + + + + | Date | Type | Department | Care Team | Description | +--------+ + + + + | 05/03/ | [facility] | Hematology/Medical | [place], | | | 2019 | | [facility] | MD Colleen Nguyen | | | | | for Health & Healing | [address] [place], | | | | | [address] | [place] [address] | | | | | Mailcode: CHKatlyn | [phone] | | | | | [facility] | | | | | | and Healing, 7th | | | | | | Floor [place], [place] | | | | | | [address] | | | | | | [phone] | | | +--------+ + + + [...] | | 2018 | Visit | | [address] | | | | | | [place] | | | | | | [place] [address] | | | | | | [phone] | | | | | | | | +--------+ + + + + | 09/21/ | Office | Ophthalmology | Ethel Romo MD | | | 2019 | Visit | | [address] | | | | | | [place], [place] | | | | | | [address] | | | | | | [phone] | | | | | | | | +--------+ + + + + | 11/20/ | Appointment | Hematology & | Otu, Hem [address] | | | 2018 | | Oncology | [place] | | | | | | [place] [address] | | +--------+ + + + + as of this encounter Visit Diagnoses Not on filein this encounter"
--- OUTSIDE RECORDS SUMMARY | ~2018-06-22 | XMS | Encounter Summary ---
Demographics + + + | Address | [address] | | | [place] [address] | + + + | Home Phone | | + + + | Preferred Language | Unknown | + + + | Marital Status | Single | + + + | Gnosticist Affiliation | Unknown | + + + | Race | Unknown | + + + | Ethnic Group | Unknown | + + + Author + + + | Author | [facility] | | | and Jadenana | + + + | Organization | [facility] | [...] Team Providers + +------+ + | Care Psych Nurse Name | Role | Phone | + [...] [place] | | | | | | [address] | | | | | | [phone] | | | +--------+ + + + [...] [place] | | | | | | [address] | | | | | | | | +--------+---------+ + + + | 07/04/ | Office | Internal Medicine | Lexie Cagle | | | 2018 | Visit | | [address] | | | | | | [place] | | | | | | [place] [address] | | | | | | [phone] | | | | | | | | +--------+---------+ + + + as of this encounter Visit Diagnoses Not on filein this encounter"
--- OUTSIDE RECORDS SUMMARY | ~2018-06-22 | XMS | Encounter Summary ---
Demographics + + + | Address | [address] | | | [place] [address] | + + + | Home Phone | | + + + | Preferred Language | Unknown | + + + | Marital Status | Single | + + + | Yazidi Affiliation | Unknown | + + + | Race | Unknown | + + + | Ethnic Group | Unknown | + + + Author + + + | Author | [facility] | | | and Jadenana | + + + | Organization | [facility] | | [...] Team Providers + +------+ + | Care Chocolate Molder Name | Role | Phone | + +------+ + | Lexie Cagle | PCP | | | [facility]ISTS | | | + +------+ + Encounter [...] [place] | | | | | | [address] | | | | | | [phone] | | | +--------+ + + + [...] [place] | | | | | | [address] | | | | | | | | +--------+---------+ + + + | 07/04/ | Office | Internal Medicine | Lexie Cagle | | | 2018 | Visit | | Arleen, [facility] [address] | | | | | | [address] | | | | | | [place] [address] | | | | | | [phone] | | | | | | | | +--------+---------+ + + + as of this encounter Visit Diagnoses Not on filein this encounter"
--- OUTSIDE RECORDS SUMMARY | ~2018-06-22 | XMS | Encounter Summary ---
Demographics + + + | Address | [address] | | | [place] [address] | + + + | Home Phone [...] | Author | [facility] | | | and Jadenana | + + + | Organization | [facility] | | | and Jadenana [...] Team Providers + +------+ + | Care Reroller Hand Name | Role | Phone | + +------+ + | Lexie Cagle | PCP | | | PATCHING MACHINE OPERATOR | | | + +------+ [...] | (Primary Dx) | | | | [place] | [facility] [place] | | | | | [address] | [address] | | | | | [phone] | | | +--------+ + + + [...] do so when he gets home to [place]. Patient denies pain at this time only [...] | | | | | | [place] [address] | | | | | | [phone] | | | | | | | | +--------+---------+ + + + as of this encounter Visit Diagnoses + + | Diagnosis | + + | Neurogenic bladder - Primary | + + | Neurogenic bladder, NOS | + +"
--- OUTSIDE RECORDS SUMMARY | ~2018-06-22 | XMS | Encounter Summary ---
Demographics + + + | Address | [address] | | | [place] [address] | + + + | Home Phone [...] Author | [facility] | | | and Jadenana | + + + | Organization | [facility] | | | and Jadenana [...] Providers + +------+ + | Care Digital Marketing Consultant Name | Role | Phone | + +------+ + | Lexie Cagle | PCP | | | CLINICAL BIOSTATISTICS DIRECTOR | | | + +------+ + [...] | | | (N31.9) | | [place] | | | | | Procedures | | [place] | | | | | [place] | | [address] Phone: | | | | | INCISE/DRAIN | | [phone] | | | | | BLADDER | | Fax: | | | | | | | [phone] | +--------+--------+ + + + + Encounter Details +--------+---------+ + + + | Date | Type | Department | Care Team | Description | +--------+---------+ + + + | 06/20/ | Surgery | [facility] | Michael Fernandes | Cystoscopy, | | 2019 | | [facility] | MD Yaw [address] | suprapubic catheter | | | | [address] | [place], [place] | placement | | | | [place] | [address] | | | | | [address] | | | | | | [phone] | | | +--------+---------+ + + + [...] encounter Discharge Instructions Ramirez Hirsch RN - 06/20/2018F/U in the office July 04July shower tomorrow, [...] [place] | | | | | | [id number] | | | | | | | | +--------+---------+ + + + | 07/04/ | Office | Internal Medicine | Lexie Cagle | | | 2019 | Visit | | [address] | | | | | | [address] | | | | | | [place] [address] | | | | | | [phone] | | | | | | | [...] | | 3 HOURS PRN, Pain, Starting Mon | | | 06/20/18 at 0951, First [...]
--- OUTSIDE RECORDS SUMMARY | ~2018-06-22 | XMS | Encounter Summary ---
Demographics + + + | Address | [address] | | | [place] [address] | + + + | Home Phone [...] Author | [facility] | | | and Jadenana | + + + | Organization | [facility] | | | and [...] Providers + +------+ + | Care Business Advisor Name | Role | Phone | + +------+ + | Lexie Cagle | PCP | | | BUNCH MAKER HAND | | | + +------+ + Reason for Visit + + + | Reason | Comments | + + + | Neurogenic Bladder | treatment options | + + + Encounter Details +--------+---------+ + + + | Date | Type | Department | Care Team | Description | +--------+---------+ + + + | 04/30/ | Office | [facility] | Michael Fernandes | Neurogenic bladder | | 2019 | Visit | [address] | MD Yaw [address] | (Primary Dx); | | | | [place], [place] | [place], [place] | 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 CC: [...] | | | | [place] | | | | | | [address] | | | | | | | | +--------+---------+ + + + | 07/04/ | Office | Internal Medicine | CagleLexie | | | 2018 | Visit | | [address] | | | | | | [address] [place] | | | | | | [place] [address] | | | | | | [phone] | | | | | | | [...]
--- OUTSIDE RECORDS SUMMARY | ~2018-06-22 | XMS | Encounter Summary ---
Demographics + + + | Address | [address] | | | [place] [address] | + + + | Home Phone [...] + + | Author | [facility] | | | and Jadenana | + + + | Organization | [facility] | | | and Jadenana [...] Providers + +------+ + | Care Special Skills Officer Name | Role | Phone | + +------+ + | Lexie Cagle | PCP | | | PROFESSOR OF SPANISH | | | + +------+ + Reason [...] | | | | | Chronic | PROFESSOR OF SPANISH [address] | | | | | pain of | [address] | [place], | | | | | right knee | [place], | [place] | | | | | | [place] [address] | [address] | | | | | | Phone: | Phone: | | | | | | [phone] | [phone] | | | | | | Fax: | Fax: | | | | | | [phone] | [phone] | +--------+ + + + + + [...] | | Skin | Lexie | [place] | | | Required | | eruption | Arleen, | DERMATOLOGY | | | | | resembling | PROFESSOR OF SPANISH [address] | [address] | | | | | psoriasis | [address] | [address] [place] | | | | | | [place], | [place], [place] | | | | | | [place] [address] | [address] | | | | | | Phone: | Phone: | | | | | | [phone] | [phone] | | | | | | Fax: | Fax: | | | | | | [phone] | [phone] | + + + + + + [...] + + | 06/01/ | Office | [facility] | Lexie Cagle | Chronic fatigue | | 2019 | Visit | MEDICINE [address] | [address] | disorder (Primary | | | | [address] [place] | [address] [place] | Dx); B12 deficiency; | | | | [place] [address] | [place] [address] | 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 4. Referral to [facility] Dermatology entered. 5. Refill on Requip and [...] CBC with Differential Ferritin Referral to Dermatology [facility] Referral to [facility] Orthopedic Surgery Reviewed signs and symptoms that would warrant emergent evaluation. Patient verbalized unde rstanding. Return in about 4 weeks (around 06/29/2018). Patient understands, accepts, and agrees with this plan. Over 25 minuntes spent in face to face time with this patient today. > 50% of time student counsellor ing regarding the listed conditions, options for treatment, and possible risks, and coordina ting care. Lexie Cagle, DNP, PROFESSOR OF SPANISH, AGNP-Shalonda this encounter Plan of Treatment +--------+---------+ + + + | Date | Type | Specialty | Care Team | Description | +--------+---------+ + + + | 07/04/ | Office | Urology | Michael Fernandes | | | 2018 | Visit | | MD [address] | | | | | | [place] | | | | | | [address] | | | | | | | | +--------+---------+ + + + | 07/04/ | Office | Internal Medicine | Lexie Cagle | | | 2019 | Visit | | [address] | | | | | | [address] | | | | | | [place] [address] | | | | | | [phone] | | | | | | | [...] + +--------+ + + | Referral to [facility] Orthopedic | Routin | Acute [...] [facility] | | | | [facility] | | | | | CENTER - | | | | | LABORATORY | + +-------+ + + + + | Specimen | + + | Blood | + + + + + + + | Performing | Address | City/State/Zipcode | Phone Number | | Organization | | | | + + + + + | [facility] | [address] | [place] | [phone] | | [facility] | | [address] | | | - LABORATORY | | | | + + + + + CBC with Differential (06/01/2018 1452) + + + + + | Component | Value | Ref Range | Performed At | + + + + + | WBC | 5.8 | 4.0 - 11.0 K/uL | [facility] | | | | | [facility] | | | | | CENTER [...] [address] | | | | | [facility] | | | | | CENTER - [...] [address] | [place] | [phone] | | [facility] | | [address] | | | - LABORATORY | | [...] [facility] | | | | | [facility] | | | | | CENTER - | | | | | LABORATORY | + + + + + | Creatinine | 0.84 | 0.60 - 1.30 mg/dL | [facility] | | | | | [facility] | | | | | CENTER - | | | | | LABORATORY | + + + + + | eGFR if not | >60Comment: GLOMERULAR | >=60 mL/min/1.73m2 | [facility] | | [place] | FILTRATION | | [facility] | | | RATE,ESTIMATED mL/min | | CENTER - | | | /1.91o8Adpy than 60 | | LABORATORY | | [...] [facility] | | | | | [facility] | | | | | CENTER [...] | 1.7 | 0.8 - 2.0 | [facility] | | Ratio | | | [facility] | | | | | CENTER - | | | | | LABORATORY | + + + + + | BUN/Creatinine Ratio | 20.2 | | [facility] | | | | | [facility] [...] + | [facility] | [address] | [place] | [phone] | | [facility] | | [address] | | | - LABORATORY | | | | + + + + + Iron and Transferrin (06/01/20181451) + + + + + | Component | Value | Ref Range | Performed At | + + + + + | Iron | 81 | 50 - 160 ug/dL | [facility] | | | | | [facility] | | | | | CENTER - | | | | | LABORATORY | + + + + + | TRANSFERRIN | 198.8 (L) | 240.0 - 480.0 mg/dL | [facility] | | | | | [facility] | | | | | CENTER - [...] + | [facility] | [address] | [place] | [phone] | | [facility] | | [address] | | | - LABORATORY | | | | + + + + + Vitamin D, Deficiency Screen (25-Hydroxy) (06/01/2018 1452) + +--------+ + + | Component | Value | Ref Range | Performed At | + +--------+ + + | Vitamin D, 25 | 11 (L) | 30 - 100 ng/mL | [facility] | | Hydroxy | | | [facility] | | | | | CENTER - | | | | | LABORATORY | + +--------+ + + + + | Specimen | + + | Blood | + + + + + + + | Performing | Address | City/State/Zipcode | Phone Number | | Organization | | | | + + + + + | [facility] | [address] | [place] | [phone] | | [facility] | | [address] | | | - LABORATORY | | | | + + + + + Folate (06/01/20182) + +-------+ + + | Component | Value | Ref Range | Performed At | + +-------+ + + | FOLATE | 19.4 | >5.8 ng/mL | [facility] | | | | | [facility] | | | | | CENTER - [...] [address] | [place] | [phone] | | [facility] | | [address] | | | - LABORATORY | | | | + + + + + Vitamin B-12 (06/01/2018 1452) + + + + + | Component | Value | Ref Range | Performed At | + + + + + | VITAMIN B-12 | 320Comment: | 180 - 914 pg/mL | [facility] | | | DEFICIENT: | | [facility] | | | <145 | | CENTER [...] [address] | [place] | [phone] | | [facility] | | [address] | | | - LABORATORY | | | | + + + + + T4, Free (06/01/2018 1452) + +-------+ + + | Component | Value | Ref Range | Performed At | + +-------+ + + | FT4 | 0.8 | 0.6 - 1.1 ng/dL | [facility] | | | | | [facility] | | | | | CENTER - | | | | | LABORATORY | + +-------+ + + + + | Specimen | + + | Blood | + + + + + + + | Performing | Address | City/State/Zipcode | Phone Number | | Organization | | | | + + + + + | [facility] | [address] | [place] | [phone] | | [facility] | | [address] | | | - LABORATORY | | | | + + + + + TSH (06/01/20181451) + + + + + | Component | Value | Ref Range | Performed At | + + + + + | TSH | 2.08Comment: This is a | 0.45 - 5.33 uIU/mL | [facility] | | | third generation TSH | | [facility] | | | test. | | CENTER [...] ST. | [address] | [place] | [phone] | | [facility] | | [address] | | | - LABORATORY | | [...]
--- OUTSIDE RECORDS SUMMARY | ~2018-06-22 | XMS | Encounter Summary ---
Demographics + + + | Address | [address] | | | [place] [address] | + + + | Home Phone | | + + + | Preferred Language | Unknown | + + + | Marital Status | Single | + + + | Mormon Affiliation | Unknown | + + + | Race | Unknown | + + + | Ethnic Group | Unknown | + + + Author + + + | Author | [facility] | | | and Jadenana | + + + | Organization | [facility] | | [...] Providers + +------+ + | Care Environmental Scientists Name | Role | Phone | + [...] Closed | | Urology | Diagnoses | Janoff, | Dom, | | | | | Kidney | Francisco J Carvalho MD | Michael Tidwell, | | | | | stone Acute | [address] | [address] | | | | | cystitis | Cece | [facility] | | | | | Recurrent | [address] | [place], [place] | | | | | UTI NEW/ | [place] | [address] Phone: | | | | | KIDNEY | [address] | [phone] | | | | | STONE/ ACUTE | Phone: | Fax: | | | | | CYSTITIS/ | [phone] | [phone] | | | | | RECURRENT | Fax: | | | | | | UTI/ JANOFF | [phone] | | | | | | Procedures | | | | | | | NEW PATIENT | | | +--------+--------+ + + + + Encounter Details +--------+---------+ + + + | Date | Type | Department | Care Team | Description | +--------+---------+ + + + | 04/03/ | Office | [facility] | Michael Fernandes | Neurogenic bladder | | 2019 | Visit | [address] | MD [address] | (Primary Dx); | | | | [place], [place] | [place], [place] | Intrinsic sphincter | | | | [address] | [address] | deficiency; | | | | [phone] | | Hematuria, | | | | [...] + | Blood Pressure | 148/80 | 04/03/20181457 PST | + + + + | Pulse | 72 | 04/03/20181457 PST | + + + + | Temperature | - | - | + + + + | Respiratory Rate | 16 | 04/03/20181457 PST | + + + + | Oxygen Saturation | - | - | + + + + | Inhaled Oxygen | - | - | | Concentration | | | + + + + | Weight | 90.1 kg (198 lb 10.2 | 04/03/2018 1458 PST | | | oz) | | + + + + | Height | 177.8 cm (5' 10") | 04/03/2018 1458 PST | + + + + | Body Mass Index | 28.5 | 04/03/2018 1458 PST | + + + + in this encounter Instructions Patient Instructions - Michael Fernandes MD - 04/03/2018 1515 PSTIleal conduit Right colon pouch Preoperative Instructions Your surgery with Dr. Fernandes has been scheduled for April 19, 2017 at 2:45 PM at [facility]. Please report to the Surgery [...] you home after surgery. Call us at [phone] with any questions. [x] Pain management booklet provided to patient. in this encounter Progress Notes Michael Fernandes MD - 04/03/2018 1515 PSTFormatting of this note may be different [...] years. Nephrolithiasis, has had ESWL in the Currently has 1cm stone in the lower [...] was discussed in detail with the patie nt. He states he would not be happy [...] kg (198 lb 10.2 oz) | B [place] 28.50 kg/m General Appearance: Alert, cooperative, no [...] UA, POC Negative Negative, 100 mg/dL Specific [place], UA, POC 1.015 1.001 - 1.030 Blood, [...] Ictotest Negative Remark No results found for: CASH No Physician on file's notes were reviewed in clinic today. No Follow-up on file.. This document was generated in part using voice recognition software. Frequent wrong word or sound-alike substitutions may have occurred due to the inherent limitations of the voice recognition software. Although I have attempted to edit the content, I have not thoroughly proofread this note, and dry chain offbearer errors are very likely to occur. CC: No Physician on file in this encounter Plan of Treatment +--------+---------+ + + + | Date | Type | Specialty | Care Team | Description | +--------+---------+ + + + | 07/04/ | Office | Urology | Michael Fernandes | | | 2019 | Visit | | MD Yaw [address] [place] [address] | | | | | | [place], [place] | | | | | | [address] | | | | | | | | +--------+---------+ + + + | 07/04/ | Office | Internal Medicine | Lexie Cagle | | | 2018 | Visit | | [address] | | | | | | [address] | | | | | | [place] [address] | | | | | | [phone] | | | | | | | [...] encounter Results POCT Urinalysis Dipstick Automated (04/03/2018 1425) + + + + + | Component | Value | Ref Range | Performed At | + + + + + | Color, UA, POC | Yellow | Yellow, Light Yellow | | + [...] + + + + + | Specific Clark[place], | 1.015 | 1.001 - 1.030 | | | UA, POC | | | | + + + + + | Blood, UA, POC | Small (A) | Negative | | + + + + + | pH, UA, POC | 5.0 | 5.0, 6.0, 7.0, 8.0, | | [...] + + | Nitrite, UA, POC | Negative | Negative | | + + + + + | Leukocyte Esterase, | Small (A) | Negative | | | UA, [...] Urine | + + Culture, Urine (04/03/2018 1424) + + + + + | Component | Value | Ref Range | Performed At | + + + + + | Culture | >100,000 CFU/ml | | [facility] | | | Escherichia coliComment: | | [...] ST. | [address] | [place] | [phone] | | [facility] | | [address] | | | - LABORATORY | | | | + + + + + Urinalysis, Microscopic Only, with Culture if Indicated (04/03/2018 1424) + + + + + | Component | Value | Ref Range | Performed At | + + + + + | WBC UA | 25-50 (A) | 0 - 2 /HPF | [facility] | | | | | [facility] | | | | CENTER - | | | | | LABORATORY | + + + + + | WBC CLUMPS UA | Few (A) | None Seen /HPF | [facility] | | | | | [facility] | | | | CENTER - | | | | | LABORATORY | + + + + + | RBC UA | 5-10 (A) | 0 - 2 /HPF | [facility] | | | | [facility] | | | | C[facility] - | | | | | LABORATORY | + + + + + | SQUAMOUS EPITHELIAL | 15-25 (A) | 0 - 2 [...] | + + + + + | BUDDING YEAST UA | Few (A) | Negative | [facility] | | | | [facility] | | | | CENTER - | | | | | LABORATORY | + + + + + | HYALINE CASTS UA | 2-5 (A) | 0 - 2 /LPF | [facility] | | | | [facility] | | | | CENTER - | | | | | LABORATORY | + + + + + | URINE COMMENT | Urine Culture Set Up | | [facility] | | | [...] [address] | [place] | [phone] | | [facility] | | [address] | | | - LABORATORY | | | | + + + + + in this encounter Visit Diagnoses + + | Diagnosis | + + | Neurogenic bladder - Primary | + + | Neurogenic bladder, NOS | + + | Intrinsic sphincter deficiency | + + | Intrinsic (urethral) sphincter deficiency (ISD) | + + | Hematuria, unspecified type | + + | Pyuria | + + | Other nonspecific finding on examination of urine | + + | Detrusor instability | + + | Other functional disorder of bladder | + +
--- OUTSIDE RECORDS SUMMARY | ~2018-06-22 | XMS | Clinical Summary ---
Demographics + + + | Address | [address] | | | [place] [address] | + + + | Home Phone | | + + + | Preferred Language | Unknown | + + + | Marital Status | Single | + + + | Protestant Affiliation | CATHOLIC | + + + [...] Providers + +------+ + | Care Public Health Training Assistant Name | Role | Phone | + +------+ + | Jose Hameed MD | PP | | + +------+ + Source Comments TERRELL is fully live on both [facility] and [facility] Allergies + + + + + + [...] + + + + | 05/03/ | Easement Man | | [place], | | | 2018 [...] | | 2019 | Visit | | [address] | | | | | | [place], | | | | | | [place] [address] | | | | | | [phone] | | | | | | | | +--------+ + + + + | 09/21/ | Office | | Ethel Romo MD | | | 2019 | Visit | | [address] | | | | | | [place], [place] | | | | | | [address] | | | | | | [phone] | | | | | | | | +--------+ + + + + | 11/20/ | Appointment | | Toya, [address] | | | 2019 | | | [place], | | | | | | [place] [address] | | +--------+ + + + + [...] by | | | | | | [address] | | Diogo Fregoso MD | | | | | | /[id number] | | | | | | | | [address] | | | | | | | [...] MD | | | | | | /[id number] | | | | | | | | | | | | | | | | /[id number] | | | | | | | | 13 | + +------+-------+ +--------+--------+--------+ | Lead Adaptor | | | | | | [id number] | | Kit-11/16/2016Implanted: | | | | | | 11-18B | | 11/16/2016 by [employer], | | | | | | / | | Diogo Frank MD (Quantity not on | | | | | | /[id number] | | file) | | | | [...] | re | [address] | [place] [address] | | | B | | | | | + +--------+ +--------+ + + | [employer] | AARP | [phone] | Indemn | [phone] | [address] | | [employer] | | | ity | [address] | [place] [address] | + +--------+ +--------+ + + + [...] | starr | | | [address] | [address] | + +--------+ +--------+ + + | DEBBI MARQUEZ | Psych | Self | [birth year] | Home: | [address] | | | | | 2 | [phone] | [place], [place] | | | | | | [address] | [address] | + +--------+ +--------+ + +
--- OUTSIDE RECORDS SUMMARY | ~2018-06-22 | XMS | Encounter Summary ---
Demographics + + + | Address | [address] | | | [place] [address] | + + + | Home Phone [...] + | Author | [facility] | | | and Jadenana | + + + | Organization | [facility] | | [...] Providers + +------+ + | Care Instructor Extension Work Name | Role | Phone | + +------+ + | Lexie Cagle | PCP | | | SPECIALTY TRIMMER | | | + +------+ + Reason for Visit + + + | Reason | Comments | + + + | Establish Care | | + + + Encounter Details +--------+---------+ + + + | Date | Type | Department | Care Team | Description | +--------+---------+ + + + | 04/20/ | Office | [facility] | Lexie Cagle | Encounter for | | 2018 | Visit | MEDICINE [address] | [address] | medical examination | | | | Street [address] | [facility] | to establish care | | | | [place] [address] | [place] [address] | (Primary Dx); | | | | [phone] | [phone] | Hypoglycemia; RLS | | | | [...] | | | Calculus of kidney | +--------+---------+ + + + Social History [...] + | Blood Pressure | 128/80 | 04/20/20181357 PST | + + + + | Pulse | 82 | 04/20/20181357 PST | + + + + | Temperature | 36.9 C (98.4 F) | 04/20/20181357 PST | + + + + | Respiratory Rate | 18 | 04/20/20181357 PST | + + + + | Oxygen Saturation | 96% | 04/20/2018 1358 PST | + + + + | Inhaled Oxygen | - | - | | Concentration | | | + + + + | Weight | 91.5 kg (201 lb 11.5 | 04/20/2018 1358 PST | | | oz) | | + + + + | Height | 177.8 cm (5' 10") | 04/20/2018 1358 PST | + + + + | Body Mass Index | 28.94 | 04/20/2018 1358 PST | + + + + in this encounter Progress Notes Lexie Cagle, SPECIALTY TRIMMER - 04/20/2018 1400 PSTFormatting of this note may be differen t from the original. Subjective: Mian Marquez is a 68 y.o. male here to Establish Care. He recently relocated from [place] to [place] to be closer to his daughter and grandchildren. Mian has a complex medical history including secondary progressive MS diagnosed in 1997, m anaged by Dr. Maldonado at [facility]. 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 He is established with a psychiatrist in [place] and a counselor in [place]. He states that he is not currently [...] left hand surgery with Dr. Sepulveda at [facility] in [place] for scapholunate dissociation of the left wrist. [...] or shower?: (!) Yes Fall Risk Screening ([facility]) 1. Have you fallen in the [...] bulking agent; Surgeon: Gina Fernandes MD; Location: [facility] MAIN OR GASTRIC BYPASS SURGERY 2001 [...] family history appropriate screening guidelines. Personalized hea lt advice including maintaining a healthy body weight, [...] hand pain Follows with Dr Sepulveda at [facility] 12. Neurogenic bladder 13. Calculus of kidney Continue to follow with Dr. Fernandes 14. Mild episode of recurrent major depressive disorder (HCC) 15. Psychophysiological insomnia Follows with psychiatry and counseling. Return in about 3 months (around 07/19/2018). Patient understands, accepts, and agrees with this plan. Over 60 minuntes spent in face to face time with this patient today. > 50% of time grief counsellor ing regarding the listed conditions, options for treatment, and possible risks, and coordina ting care. Lexie Cagle, DNP, SPECIALTY TRIMMER, AGNP-Shalonda this encounter Plan of Treatment +--------+---------+ + + + | Date | Type | Specialty | Care Team | Description | +--------+---------+ + + + | 07/04/ | Office | Urology | Micahel Fernandes | | | 2018 | Visit | | MD [address] | | | | | | [place] | | | | | | [id number] | | | | | | | | +--------+---------+ + + + | 07/04/ | Office | Internal Medicine | Lexie Cagle | | | 2019 | Visit | | [address] | | | | | | [address] | | | | | | [place] [address] | | | | | | [phone] | | | | | | | [...] this | | COLONOSCOPY | e | 0000 PDT | | procedure are in the | | | | | | results section. | + +--------+ + + + | EXTERNAL LAB: | Routin | 07/22/2014 | | Results for this | | HEPATITIS C AB | e | 0000 PDT | | procedure are in the | | | | | | results section. | + +--------+ + + + in this encounter Results EXTERNAL: COLONOSCOPY (07/20/2016) + + + + + | Component | Value | Ref Range | Performed At | + + + + + | Colonoscopy | adenomatous polyps, | | | | Impression, External | repeat 3 years | | | + + + + + External Lab: Hepatitis C Ab (07/22/2014) + + + + + | Component | Value | Ref Range | Performed At | + + + + + | HCV, External | Non-Reactive | Non-Reactive | | + + + + + in this encounter Visit Diagnoses + + | Diagnosis | + + | Encounter for medical examination to establish care - Primary | + + | Hypoglycemia | + + | Hypoglycemia, unspecified | + + | RLS (restless legs syndrome) | + + | Restless legs syndrome (RLS) | + + | CHRISTEN (obstructive sleep apnea) | + + | Obstructive sleep apnea (adult) (pediatric) | + + | Paroxysmal atrial fibrillation (HCC) | + + | Atrial fibrillation | + + | Iron malabsorption | + + | Other specified intestinal malabsorption | + + | Multiple sclerosis (HCC) | + + | Multiple sclerosis | + + | Acute pain of left knee | + + | Chronic right-sided low back pain without sciatica | + + | Disi (dorsal intercalated segment instability), left | + + | Left hand pain | + + | Pain in limb | + + | Neurogenic bladder | + + | Neurogenic bladder, NOS | + + | Calculus of kidney | + + | Mild episode of recurrent major depressive disorder (HCC) | + + | Psychophysiological insomnia | + + | Persistent disorder of initiating or maintaining sleep | + +
--- OUTSIDE RECORDS SUMMARY | ~2018-06-22 | XMS | Encounter Summary ---
Demographics + + + | Address | [address] | | | [place] [address] | + + + | Home Phone [...] Author | [facility] | | | and Jadenana | + + + | Organization | [facility] | | [...] Team Providers + +------+ + | Care Vision Teacher Name | Role | Phone | + +------+ + | No, Physician | PCP | Unavailable | + +------+ + Encounter Details +--------+ + + + + | Date | Type | Department | Care Team | Description | +--------+ + + + + | 04/19/ | Hospital | [facility] | Michael Fernandes | Neurogenic bladder; | | 2019 | Encounter | MED CTR OR INTRA OP | MD Yaw [address] | Urge incontinence; | | | | [address] | [address] [place], [place] | 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 | [place] | [phone] | | [facility] | | [address] | | | - LABORATORY | | [...] BENITES MD | | | | | ([id number]) on 04/19/2018 | | | | | [...] (urethral) sphincter deficiency (ISD) | + + Admitting Diagnoses + + [...] day), | | | First dose on [facility] 04/19/18 at | | | 2200, [...] 9 14:56 | | | | | [facility] 04/19/18 at 1445, For 1 dose, [...] [facility] 04/19/18 at 1215, | | PST | | | | | For 1 dose, Pre-op | | | | | | + +-------+ +------+---+---+ + +---+ | | | + +---+ | ondansetron (ZOFRAN) injection | | | 4 mg 4 mg, Intravenous, ONCE | | | PRN, Nausea, Starting [facility] 04/19/18 | | | at 1340, For [...]
--- OUTSIDE RECORDS SUMMARY | ~2018-06-22 | XMS | Encounter Summary ---
Demographics + + + | Address | [address] | | | [place] [address] | + + + | Home Phone [...] | Author | [facility] | | | and Jadenana | + + + | Organization | [facility] [...] Team Providers + +------+ + | Care Pole Frame Construction Worker Name | Role | Phone | + +------+ + | Lexie Cagle | PCP | | | REGISTERED RESPIRATORY TECHNICIAN | | | + +------+ + [...] [place] | | | | | [place] | | [address] Phone: | | | | | INCISE/DRAIN | | [phone] | | | | | BLADDER | | Fax: | | | | | | | [phone] | +--------+--------+ + + + + Encounter [...] catheter | | | | [address] | [address] [place], [place] | placement | | | | [place] | [address] | | | | | [address] | | | | | | [phone] | | | +--------+---------+ + + + [...] [place] | | | | | | [id number] | | | | | | | | +--------+---------+ + + + | 07/04/ | Office | Internal Medicine | Lexie Cagle | | | 2019 | Visit | | [address] | | | | | | [address] | | | | | | [place] [address] | | | | | | [phone] | | | | | | | [...]
--- OUTSIDE RECORDS SUMMARY | ~2018-06-22 | XMS | Encounter Summary ---
Demographics + + + | Address | [address] | | | [place] [address] | + + + | Home Phone [...] | Author | [facility] | | | and Jadenana | + + + | Organization | [facility] | [...] [place] | | | | | | [address] | | | | | | [phone] | | | +--------+ + + + [...] [place] | | | | | | [address] | | | | | | | | +--------+---------+ + + + | 07/04/ | Office | Internal Medicine | Lexie Cagle | | | 2018 | Visit | | [address] | | | | | | [place] [address] | | | | | | [place] [address] | | | | | | [phone] | | | | | | | | +--------+---------+ + + + as of this encounter Visit Diagnoses Not on filein this encounter"
--- OUTSIDE RECORDS SUMMARY | ~2018-06-22 | XMS | Encounter Summary ---
Demographics + + + | Address | [address] | | | [place] [address] [...] + | Author | [facility] | | | and Jadenana | + + + | Organization | [facility] | [...] Providers + +------+ + | Care Assistant Banquet Manager Name | Role | Phone | [...] | | | | stone Acute | [address] | [address] | | | | | cystitis | Cece | [facility] | | | | | Recurrent | [address] | [place], [place] | | | | | UTI NEW/ | [place], [place] | [address] Phone: | | | | | KIDNEY | [address] | [phone] | | | | | STONE/ ACUTE | Phone: | Fax: | | | | | CYSTITIS/ | [phone] | [phone] | | | | | RECURRENT | Fax: | | | | | | UTI/ JANOFF | [phone] | | | | | | Procedures | | | | | | | NEW PATIENT | | | +--------+--------+ + + + + Encounter Details +--------+---------+ + + + | Date | Type | Department | Care Team | Description | +--------+---------+ + + + | 04/03/ | Office | [facility] | Michael Fernandes | Neurogenic bladder | | 2019 | Visit | [address] | MD Yaw [address] | (Primary Dx); | | | | [place], [place] | [place], [place] | 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 Please report to the Surgery and Procedure [...] you home after surgery. Call us at [phone] with any questions. [x] Pain management booklet [...] kg (198 lb 10.2 oz) | B NM 28.50 kg/m General Appearance: Alert, cooperative, no [...] UA, POC Negative Negative, 100 mg/dL Specific Mcgill, UA, POC 1.015 1.001 - 1.030 Blood, [...] have not thoroughly proofread this note, and roping tender errors are very likely to occur. CC: No Physician on file in this encounter Plan of Treatment +--------+---------+ + + + | Date | Type | Specialty | Care Team | Description | +--------+---------+ + + + | 07/04/ | Office | Urology | Michael Fernandes | | | 2019 | Visit | | MD Yaw [address] [place] [address] | | | | | | [place], [place] | | | | | | [address] | | | | | | | | +--------+---------+ + + + | 07/04/ | Office | Internal Medicine | Lexie Cagle | | | 2018 | Visit | | [address] | | | | | | [address] | | | | | | [place] [address] | | | | | | [phone] | | | | | | | [...] + + + + + | Specific Mcgill, | 1.015 | 1.001 - 1.030 | [...] | Culture | >100,000 CFU/ml | | [facility] | | | Escherichia coliComment: | [...] ST. | [address] | [place] | [phone] | | [facility] | | [address] | | | - LABORATORY | | [...] [address] | [place] | [phone] | | [facility] | | [address] | | | - LABORATORY | | [...]
--- OUTSIDE RECORDS SUMMARY | ~2018-06-22 | XMS | Encounter Summary ---
Demographics + + + | Address | [address] | | | [place] [address] | + + + | Home Phone [...] | [facility] | | | and Jadenana | + + + | Organization | [facility] | | | and [...] Team Providers + +------+ + | Care Coach Operator Name | Role | Phone | + +------+ + | Lexie Cagle | PCP | | | CINDER DUMP CRANE OPERATOR | | | + +------+ + Encounter [...] [place] | | | | | | [address] | | | | | | [phone] | | | +--------+ + + + [...] | 2018 | Visit | | MD [address] | | | | | | [place] | | | | | | [address] | | | | | | | | +--------+---------+ + + + | 07/04/ | Office | Internal Medicine | Lexie Cagle | | | 2018 | Visit | | [address] | | | | | | [address] | | | | | | [place] [address] | | | | | | [phone] | | | | | | | | +--------+---------+ + + + as of this encounter Visit Diagnoses Not on filein this encounter"
--- OUTSIDE RECORDS SUMMARY | ~2018-06-22 | XMS | Encounter Summary ---
Demographics + + + | Address | [address] | | | [place] [address] | + + + | Home Phone [...] | [facility] | | | and Jadenana | + + + | Organization | [facility] | | | and [...] Team Providers + +------+ + | Care Door To Door Sales Representative Name | Role | Phone | + +------+ + | No, Physician | PCP | Unavailable | + +------+ + Encounter Details +--------+ + + + + | Date | Type | Department | Care Team | Description | +--------+ + + + + | 04/19/ | Anesthesia | [facility] | Parker Hendricks | | | 2019 | Event | MED CTR OR INTRA OP | MD Chuckie [address] | | | | | [address] | [address] [place] | | | | | [place] | [address] | | | | | [address] | | | | | | [phone] | | | +--------+ + + + [...] +----+---+ + + | | 1 | Mcdonough | | | | 2 | 43-degrees [...] +----+---+ + + | | 1 | Mcdonough off | | | | 3 | [...] by Cricket | | eral | Antecubital; [id number] | Bernadette Holland, | Nik Kathleen RN [...] 07/04/ | Office | Internal Medicine | Lexei Cagle | | | 2018 | Visit | | [address] | | | | | | [address] [address] | | | | | | [place] [address] | | | | | | [phone] | | | | | | | [...] 13:10 | | | | | Starting [facility] 04/19/18 at 1312, | | PST [...] | | | | | | Starting [facility] 04/19/18 at 0319, For | | [...] | | | | PRN, Pain, Starting [facility] 04/19/18 | | PST | | [...] mg | | | | PRN, Starting [facility] 04/19/18 at | | 9 12:55 [...]
--- OUTSIDE RECORDS SUMMARY | ~2018-06-22 | XMS | Encounter Summary ---
Demographics + + + | Address | [address] | | | [place] [address] | + + + | Home Phone [...] | [facility] | | | and Jadenana | + + + | Organization | [facility] | | [...] Team Providers + +------+ + | Care Cobbler Apprentice Name | Role | Phone | + +------+ + | Lexie Cagle | PCP | | | EARRING MAKER | | | + +------+ + Reason for Visit + + + | Reason | Comments | + + + | Establish Care | | + + + Encounter Details +--------+---------+ + + + | Date | Type | Department | Care Team | Description | +--------+---------+ + + + | 04/20/ | Office | [facility] | Lexie Cagle | Encounter for | | 2018 | Visit | MEDICINE [address] | [address] | medical examination | | | | Street [address] | [facility] | to establish care | | | | [place] [address] | [place] [address] | (Primary Dx); | | | | [phone] | [phone] | Hypoglycemia; RLS | | | | [...] in this encounter Progress Notes Lexie Cagle, EARRING MAKER - 04/20/2018 1400 PSTFormatting of this note may be differen t from the original. Subjective: Mian Marquez is a 68 y.o. male here to Establish Care. He recently relocated from [place] to [place] to be closer to his daughter and grandchildren. Mian has a complex medical history including secondary progressive MS diagnosed in 1997, m anaged by Dr. Maldonado at [facility]. Neurogenic badder with detrusor instability and [...] and he feels like his move from [facility] as made it much worse. He is established with a psychiatrist in [place] and a counselor in [place]. He states that he is not currently [...] on having left hand surgery with Dr. Sepulvead at [facility] in [place] for scapholunate dissociation of the left wrist. [...] or shower?: (!) Yes Fall Risk Screening ([facility]) 1. Have you fallen in the [...] hand pain Follows with Dr Sepulveda at [facility] 12. Neurogenic bladder 13. Calculus [...] this patient today. > 50% of time school counsellor ing regarding the listed conditions, options for treatment, and possible risks, and coordina ting care. Lexie Cagle, DNP, EARRING MAKER, AGNP-Shalonda this encounter Plan of Treatment +--------+---------+ + + + | Date | Type | Specialty | Care Team | Description | +--------+---------+ + + + | 07/04/ | Office | Urology | Michael Fernandes | | | 2018 | Visit | | MD [address] | | | | | | [place] | | | | | | [address] | | | | | | | | +--------+---------+ + + + | 07/04/ | Office | Internal Medicine | Lexie Cagle | | | 2019 | Visit | | [address] | | | | | | [place] | | | | | | [place] [address] | | | | | | [phone] | | | | | | | [...]
--- OUTSIDE RECORDS SUMMARY | ~2018-06-22 | XMS | Encounter Summary ---
Demographics + + + | Address | [address] | | | [place] [address] | + + + | Home Phone | | + + + | Preferred Language | Unknown | + + + | Marital Status | Single | + + + | Worship Affiliation | GNOSTICIST | + + + | Race | White | + + + | Ethnic Group | Not or | + + + Author + + + | Author | [facility] | + + + | Organization | [facility] | + + + | Address [...] | | 2019 | | [facility] [place] | MD Colleen Nguyen | | | | | [facility] | [address] [place], | | | | | [address] | [place] [address] | | | | | Mailcode: [id number] | [phone] | | | | | [facility] | | | | | | and | | | | | | [place], [place] | | | | | | [address] | | | | | | [phone] | | | +--------+ + + + [...] | | | | | [address] [place], | | | | | | [place] [address] | | | | | | [phone] | | | | | | | | +--------+ + + + + | 09/21/ | Office | Ophthalmology | Ethel Romo MD | | | 2018 | Visit | | [address] | | | | | | [place] | | | | | | [address] | | | | | | [phone] | | | | | | | | +--------+ + + + + | 11/20/ | Appointment | Hematology & | Lucho Pittman [address] | | | 2019 | | Oncology | [place] | | | | | | [place] [address] | | +--------+ + + + + as of this encounter Visit Diagnoses Not on filein this encounter"
--- OUTSIDE RECORDS SUMMARY | ~2018-06-22 | XMS | Encounter Summary ---
Demographics + + + | Address | [address] | | | [place] [address] | + + + | Home Phone [...] | Author | [facility] | | | and Jadenana | + + + | Organization | [facility] | | | and [...] Providers + +------+ + | Care Supervisor Riveting Name | Role | Phone | + +------+ + | Lexie Cagle | PCP | | | ECONOMIC ADVISER | | | + +------+ + Encounter Details +--------+ + + + + | Date | Type | Department | Care Team | Description | +--------+ + + + + | 04/19/ | Procedure | [facility] | | | | 2018 | Pass | MED CTR OR INTRA OP | | | | | | [address] | | | | | | [place] | | | | | | [address] | | | | | | [phone] | | | +--------+ + + + [...] [place] | | | | | | [id number] | | | | | | | | +--------+---------+ + + + | 07/04/ | Office | Internal Medicine | Lexie Cagle | | | 2018 | Visit | | [address] | | | | | | [place] | | | | | | [place] [address] | | | | | | [phone] | | | | | | | | +--------+---------+ + + + as of this encounter Visit Diagnoses Not on filein this encounter"
--- OUTSIDE RECORDS SUMMARY | ~2018-06-22 | XMS | Encounter Summary ---
Demographics + + + | Address | [address] | | | [place] [address] | + + + | Home Phone | | + + + | Preferred Language | Unknown | + + + | Marital Status | Single | + + + | Holiness Affiliation | Unknown | + + + | Race | Unknown | + + + | Ethnic Group | Unknown | + + + Author + + + | Author | [facility] | | | and Jadenana | + + + | Organization | [facility] | | | and Jaden[place] [...] Team Providers + +------+ + | Care Oil Treater Name | Role | Phone | + +------+ + | Lexie Cagle | PCP | | | DOWNSTREAM BIOMANUFACTURING TECHNICIAN | | | + +------+ + [...] [address] | | | | | | [place] | | | | | | [address] | | | | | | [phone] | | | +--------+ + + + [...] [place] | | | | | | [address] | | | | | | | | +--------+---------+ + + + | 07/04/ | Office | Internal Medicine | Lexie Cagle | | | 2018 | Visit | | [address] | | | | | | [place] | | | | | | [place] [address] | | | | | | [phone] | | | | | | | | +--------+---------+ + + + as of this encounter Visit Diagnoses Not on filein this encounter"
--- OUTSIDE RECORDS SUMMARY | ~2018-06-22 | XMS | Encounter Summary ---
Demographics + + + | Address | [address] | | | [place] [address] | + + + | Home Phone | | + + + | Preferred Language | Unknown | + + + | Marital Status | Single | + + + | Orthodoxy Affiliation | Unknown | + + + | Race | Unknown | + + + | Ethnic Group | Unknown | + + + Author + + + | Author | [facility] | | | and Jadenana | + + + | Organization | [facility] | | | and [...] Team Providers + +------+ + | Care Able Bodied Seaman Name | Role | Phone | + +------+ + | No, Physician | PCP | Unavailable | + +------+ + Encounter Details +--------+ + + + + | Date | Type | Department | Care Team | Description | +--------+ + + + + | 04/19/ | Hospital | [facility] | Michael Fernandes | Neurogenic bladder; | | 2019 | Encounter | MED CTR OR INTRA OP | MD [address] | Urge incontinence; | | | | [address] | [place], [place] | 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 | [place] | [phone] | | [facility] | | [address] | | | - LABORATORY | | [...] BENITES MD | | | | | ([id number]) on 04/19/2018 | | | | | [...] day), First | | | dose on [facility] 04/19/18 at 1500, For | | | 3 days, Start 8 hours after | | | pre-op dose. | | + +---+ | | | + +---+ | albuterol 2.5 mg/3 mL nebulizer | | | solution 2.5 mg 2.5 mg, | | | Nebulization, ONCE PRN, Wheezing, | | | Starting [facility] 04/19/18 at 1150, | | | [...] day), | | | First dose on [facility] 04/19/18 at | | | 2200, [...] 9 14:56 | | | | | [facility] 04/19/18 at 1445, For 1 dose, [...] | | | | | Oral, ONCE, [facility] 04/19/18 at 1215, | | PST | | | | | For 1 dose, Pre-op | | | | | | + +-------+ +------+---+---+ + +---+ | | | + +---+ | ondansetron (ZOFRAN) injection | | | 4 mg 4 mg, Intravenous, ONCE | | | PRN, Nausea, Starting [facility] 04/19/18 | | | at 1340, [...]
--- OUTSIDE RECORDS SUMMARY | ~2018-06-22 | XMS | Clinical Summary ---
Demographics + + + | Address | 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 Pt states today the reason is cost.Last Assessment & | | Plan: Referral sent to ACCOverview: Onset 08/2017Risk assessment: | | [id number] = 1; 08/2017Unaffordable treatment: Eliquis | | [...] |Overview: | |Onset 08/2017 | |Risk assessment: [id number] = 1; 08/2017 | |Unaffordable treatment: Eliquis [...] | | make appointment for consultation with laundry technician (call them in | | a week if you have not heard from them; see referral). | | | |Last Assessment & Plan: | |Please make appointment for consultation with laundry technician | |(call them in a week if [...] - the start of Eliquis.His | | harness installer has suggested trying to change to warfarin.His | | metoprolol has been stopped by cardiology (bradycardia)He had | | recent cbc done at [facility] which ruled out anemiaHe went | | [...] lap band in 2012 | | in [place], [place]; Dr. Fountain)History of Present | | [...] Done x 2 (Benito-en-Y in 2001 in [facility]; and | | lap band in 2013 in [place], [place]; | | Essie)Complications: dumping syndromeCurrent treatment: [...] BupropionPreviously followed by Dr. Morgan M.D., Dr. 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 | [place] | [phone] | | [facility] | | [address] | | | - LABORATORY | | [...] + + | Performing | Address | City/State/[facility] Cent[facility]ode | Phone Number | | Organization [...] 320Comment: | 180 - 914 pg/mL | [facility] | | | DEFICIENT: | [...] [address] | [place] | [phone] | | [facility] | | [address] | | | - LABORATORY | | | | + + + + + Vitamin D, Deficiency Screen (25-Hydroxy) (06/01/2018 9453) + +--------+ + + | Component | Value | Ref Range | Performed At | + +--------+ + + | Vitamin D, 25 | 11 (L) | 30 - 100 ng/mL | [facility] | | Hydroxy | | | [facility] | | | | | CENTER - | | | | | LABORATORY | + +--------+ + + + + | Specimen | + + | Blood | + + + + + + + | Performing | Address | City/State/Zipcode | Phone Number | | Organization | | | | + + + + + | [facility] | [address] | [place] | [phone] | | [facility] | | [address] | | | - LABORATORY | | [...] [address] | | | | | [facility] | | | | | CENTER [...] [address] | [place] | [phone] | | [facility] | | [address] | | | - LABORATORY | | [...] [facility] | | | | | [facility] | | | | | CENTER [...] [address] | | | | | [facility] | | | | | CENTER [...] [address] | [place] | [phone] | | [facility] | | [address] | | | - LABORATORY | | | | + + + + + TSH (06/01/20181451) + + + + + | Component | Value | Ref Range | Performed At | + + + + + | TSH | 2.08Comment: This is a | 0.45 - 5.33 uIU/mL | RENETTA DECKER. | | | third generation TSH | | [facility] | | | test. | | [...] + | [facility] | [address] | [place] | [phone] | | [facility] | | [address] | | | - LABORATORY | | | | + + + + + T4, Free (06/01/2018 863) + +-------+ + + | Component | Value | Ref Range | Performed At | + +-------+ + + | FT4 | 0.8 | 0.6 - 1.1 ng/dL | [facility] | | | | | [facility] | | | | | CENTER - | | | | | LABORATORY | + +-------+ + + + + | Specimen | + + | Blood | + + + + + + + | Performing | Address | City/State/Zipcode | Phone Number | | Organization | | | | + + + + + | [facility] | [address] | [place] | [phone] | | [facility] | | [address] | | | - LABORATORY | | | | + + + + + Folate (06/01/2018 1452) + +-------+ + + | Component | Value | Ref Range | Performed At | + +-------+ + + | FOLATE | 19.4 | >5.8 ng/mL | [facility] | | | | | [facility] | | | | | CENTER [...] [address] | [place] | [phone] | | [facility] | | [address] | | | - LABORATORY | | | | + + + + + Ferritin (06/01/2018 1452) + +-------+ + + | Component | Value | Ref Range | Performed At | + +-------+ + + | FERRITIN | 304 | 24 - 366 ng/mL | [facility] | | | | | [facility] | | | | | CENTER - | | | | | LABORATORY | + +-------+ + + + + | Specimen | + + | Blood | + + + + + + + | Performing | Address | City/State/[facility]ode | Phone Number | | Organization | | | | + + + + + | [facility] | [address] | [place] | [phone] | | [facility] | | [address] | | | - LABORATORY | | | | + + + + + Comprehensive Metabolic Panel (06/01/2018 0732) + + + + + | Component [...] [facility] | | | | | [facility] | | | | C[facility] - | | | | | LABORATORY | + + + + + | Creatinine | 0.84 | 0.60 - 1.30 mg/dL | [facility] | | | | | [facility] | | | | | CENTER - | | | | | LABORATORY | + + + + + | eGFR if not | >60Comment: GLOMERULAR | >=60 mL/min/1.73m2 | [facility] | | TRISTANIAN | FILTRATION | | [facility] | | | RATE,ESTIMATED mL/min | | CENTER - | | | /1.30l0Ogsk than 60 | | LABORATORY | | [...] 9.1 | 8.3 - 10.5 mg/dL | [facility] | | | | | [facility] | | | | | CENTER [...] [facility] | | | | | [facility] | | | | | CENTER [...] + | [facility] | [address] | [place], [place] | [phone] | | [facility] | | [address] | | | - LABORATORY | | | | + + + + + CBC no Differential (04/19/2018 1227) + + + + + | Component | Value | Ref Range | Performed At | + + + + + | WBC | 5.4 | 4.0 - 11.0 K/uL | [facility] | | | | | [facility] | | | | | CENTER - | | | | | LABORATORY | + + + + + | RBC | 4.24 (L) | 4.30 - 5.70 M/uL | [facility] | | | | | [facility] | | | | | CENTER [...] [facility] | | | | | [facility] | | | | | CENTER [...] + | [facility] | [address] | [place] | [phone] | | [facility] | | [address] | | | - LABORATORY | | [...] BENITES MD | | | | | ([id number]) on 04/19/2018 | | | | | [...] [address] | [place] | [phone] | | [facility] | | [address] | | | - LABORATORY | | [...] +--------+ +---------+ | MEDICARE | MEDICA | [id number] | Medica | [phone] | | | RE | | re | [phone] | | | | PART A | | | | | | | AND B | | | | | + +--------+ +--------+ +---------+ | AARP | AARP | [id number] | Indemn | [phone] | | [...] | [birth year] | Home: | [address] | | | al/Fam | | 1949 | [phone] | [place] [address] | | | starr | | | [phone] | | + +--------+ +--------+ + +
[~2018-06-22 08:58] MED LIST: CYMBALTA60 MG PO; REQUIP XL2 MG PO; TRAZODONE HCL100 MG PO; VITAMIN D31000 UNI1 PO
--- OUTSIDE RECORDS SUMMARY | 2018-06-22 09:02 | XMS ---
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 CARTER Security Slab Stripper Events No recent Security Events currently on file CRITERIA MET - FISH CARE PROVIDERS DELICIA COLON Nurse Practitioner Current PHONE: [phone] GERTRUDE ALLEN MD 09/19/2017-Current PHONE: Unknown ZAHRA HARRIS Primary Care Current PHONE: Unknown Branden has no Care Guidelines for this patient. E.D. VISIT COUNT (12 MO.) 4 Florencio Lerner 1 DIONI Garcia TOTAL 5 NOTE: Visits indicate total known visits. ED/UCC VISIT TRACKING (12 MO.) 06/22/2018 08:59 DIONI Hoyt [place] TYPE: Emergency COMPLAINT: - POST OP PROBLEM, DRAINAGE 12/03/2017 00:55 Jerryarnulfo Rivera Lopez [place] TYPE: Emergency DIAGNOSES: - Right lower quadrant pain - ABD PN 09/13/2017 11:57 Florencio Lopez [place] TYPE: Emergency DIAGNOSES: - Poisoning by unspecified narcotics, accidental (unintentional), initial encounter - Unspecified atrial fibrillation - Hypotension due to drugs - OD 07/04/2017 20:56 Florencio Lopez [place] TYPE: Emergency DIAGNOSES: - Multiple sclerosis - CONGESTION - Unspecified asthma with (acute) exacerbation 06/25/2017 18:30 Florencio Lopez [place] TYPE: Emergency DIAGNOSES: - Illness, unspecified - Chest Pain - Chest pain, unspecified - Personal history of other diseases of the nervous system and sense organs INPATIENT VISIT TRACKING (12 MO.) No inpatient visits to display in this time frame [email or web address]
== END 2018-06-22 11:22 | disposition home or self-care (01) ==
LOC: ED 08:58
DX: Z43.5 Encounter for attention to cystostomy (principal); E66.9 Obesity, unspecified; Z79.899 Other long term (current) drug therapy
CPT/HCPCS: 51798; 81001; 87088; 99283-25

== ENCOUNTER 2019-04-22 14:19 | Emergency (ER) | payer MEDICARE ==
[~2019-04-22] VITALS: Ht 177.8 cm; Wt 89.4 kg
--- OUTSIDE RECORDS SUMMARY | 2019-04-22 14:24 | XMS ---
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 CARTER Security Supervisor Shuttle Preparation Events No recent Security Events currently on file CRITERIA MET - PDMP CARE PROVIDERS AARON COLON Nurse Practitioner: Adult Health Current PHONE: [phone] DOCTOR BOWIE Primary Care Current PHONE: Unknown GERTRUDE ALLEN MD 09/19/2017-Current PHONE: Unknown ZAHRA HARRIS Primary Care Current PHONE: Unknown Branden has no Care Guidelines for this patient. Kuldeep VISIT COUNT (12 MO.) [address] [place] [address] DIONI Garcia TOTAL 3 NOTE: Visits indicate total known visits. 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
[2019-04-22] MEDS ORDERED: CEFUROXIME250 MG PO (17:23)
== END 2019-04-22 17:15 | disposition home or self-care (01) ==
LOC: ED 14:19
DX: Z46.6 Encounter for fitting and adjustment of urinary device (principal); N39.0 Urinary tract infection, site not specified; Z79.899 Other long term (current) drug therapy
CPT/HCPCS: 81001; 99283

== ENCOUNTER 2019-08-23 18:29 | Emergency (ER) | payer MEDICARE ==
[~2019-08-23] VITALS: Ht 177.8 cm; Wt 93.0 kg
--- OUTSIDE RECORDS SUMMARY | ~2019-08-23 | XMS | Encounter Summary ---
Demographics + + + | Address | [address] | | | [place] [address] | + + + | Home Phone | | + + + | Preferred Language | Unknown | + + + | Marital Status | | + + + | Mormonism Affiliation | Unknown | + + + | Race | Unknown | + + + | Ethnic Group | Unknown | + + + Author + + + | Author | [facility] | | | and Jadenana | + + + | Organization | [facility] | | | and Jadenana | + + + | Address | Unknown | + + + | Phone | Unavailable | + + + Support + + + + + | Name | Relationship | Address | Phone | + + + + + | Triny Hardin | ECON | Unknown | | + + + + + | Zuleyma Ayala | ECON | [address] | | | | | [place] [address] | | + + + + + Care Team Providers + +------+ + | Care Dump Motor Operator Name | Role | Phone | + +------+ + | Lexie Cagle | PCP | | | CHILLER TECHNICIAN | | | + +------+ + Encounter Details +--------+ + + + + | Date | Type | Department | Care Team | Description | +--------+ + + + + | 10/12/ | Anti-coag | [facility] | CagleLexie hankins | | | 2019 | Telephone | MEDICINE [address] | [address] | | | | | [address] [place] | [address] [place] | | | | | [place] [address] | [place] [address] | | | | | [phone] | [phone] | | | | | | | | +--------+ + + + + Social History + +-------+ +--------+------+ | Tobacco Use | Types | Packs/Day | Years | Date | | | | | Used | | + +-------+ +--------+------+ | Never Smoker | | | | | + +-------+ +--------+------+ + +---+---+---+ | Smokeless Tobacco: | | | | | Never Used | | | | + +---+---+---+ + + +---------+ + | Alcohol Use | Drinks/Week | oz/Week | Comments | + + +---------+ + | No | | | | + + +---------+ + + + + | Sex Assigned at | Date Recorded | | | | + + + | Not on file | | + + + + + + + | Job Start Date | Occupation | Industry | + + + + | Not on file | Not on file | Not on file | + + + + + + + + | Travel History | Travel Start | Travel End | + + + + + + | No recent travel history available. | + + documented as of this encounter Progress Notes Kerline Irizarry, Concrete Swimming Pool Installer - 10/12/2018 7:34 AM PDTCalled and spoke to patient, noti fied to increase warfarin 7.5mg on Fridays and continue with 5 mg the rest of the week. Pt v erbalized understandingElectronically signed by Kerline Irizarry Concrete Swimming Pool Installer at 10:54 AM Lexie Kathleen APRN - 10/12/2018 7:34 AM PDTPlease notify pt that his INR is not quite therapeutic. Increase warfarin to 7.5mg (1.5 tabs) on Fridays, continue with 5 mg the rest of the week, recheck INR in 2 weeks documented in this encounter Plan of Treatment +--------+---------+ + + + | Date | Type | Specialty | Care Team | Description | +--------+---------+ + + + | 11/12/ | Office | Sleep Medicine | Laith Sheffield PA | | | 2020 | Visit | | [address] | | | | | | [place] | | | | | | [address] | | | | | | | | +--------+---------+ + + + documented as of this encounter Visit Diagnoses Not on filedocumented in this encounter"
--- OUTSIDE RECORDS SUMMARY | ~2019-08-23 | XMS | Encounter Summary ---
Demographics + + + | Address | [address] | | | [place] [address] | + + + | Home Phone | | + + + | Preferred Language | Unknown | + + + | Marital Status | Single | + + + | Worship Affiliation | CATHOLIC | + + + | Race | White | + + + | Ethnic Group | Not or | + + + Author + + + | Author | [facility] | + + + | Organization | [facility] | + + + | Address | Unknown | + + + | Phone | Unavailable | + + + Support + + +---------+ + | Name | Relationship | Address | Phone | + + +---------+ + | Theodore Marquez | ECON | Unknown | | + + +---------+ + Care Team Providers + +------+ + | Care Fishing Gear Mechanic Name | Role | Phone | + +------+ + | Trevin Delacruz MD | PCP | | + +------+ + Reason for Visit + + + | Reason | Comments | + + + | Postoperative visit | panniculectomy | + + + Global Period - Transplant (Routine) +--------+--------+ + + + + | Status | Reason | Specialty | Diagnoses / | Referred By | Referred To | | | | | Procedures | Contact | Contact | +--------+--------+ + + + + | Closed | | Plastic | | Non-[facility] | Pls | | | | Surgery | | Epic Dept | Gen/Recon | | | | | | | [facility] [address] | | | | | | [address] | | | | | | | Mailcode: | | | | | | | [facility] [place] | | | | | | | [facility] | | | | | | | and Healing, | | | | | | | [address], | | | | | | | 5th Floor | | | | | | | [place], [place] | | | | | | | [address] | | | | | | | Phone: | | | | | | | [phone] | +--------+--------+ + + + + Encounter Details +--------+---------+ + + + | Date | Type | Department | Care Team | Description | +--------+---------+ + + + | 05/22/ | Office | Plastic and | Neto Lockhart, | 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 | [address] | | | | | Surgery at [facility] [address] | | | | | [address] | [place], [place] | | | | | Mailcode: CH5[facility] | [address] | | | | | [facility] | [phone] | | | | | and Healing, | | | | | | [facility] , | | | | | | Floor [place], [place] | | | | | | [address] | | | | | | [phone] | | | +--------+---------+ + + + Social History + +-------+ [...] + + documented as of this encounter Patient Instructions Patient Instructions Neto Lockhart MD - 05/22/2015 9:29 PM PSTScar massages documented in this encounter Progress Notes Neto Lockhart MD - 05/22/2015 9:27 PM PSTI was present with the resident during the his tory and exam. I discussed the case with the resident and agree with the findings and plan as documented in the resident s note. Mian Marquez is a 65 year old male status post panniculectomy, doing well. Sutures removed . Incisions are healing well. Follow-up PRN. Richy Duque MD PLASTIC [facility] RECONSTRUCTIVE [facility]GERY AT [place] [address] [address] Mail Code: [address] [address] eCorrie perry MD - 6:32 PM PSTPlastic Surgery Clinic Follow up ID: Mian Marquez is a 65 y.o.male status post panniculectomy on 03/03/15 Interval History: Doing well No complains Askin about " pouching" appearance of his upper abdomen, we recommend toning exercise to im prove his abdominal muscles PE: Gen:alert and oriented, NAD Abd: soft, NT, lower abdominal incision healing well, residual prolene sutures are in place , no signs of infection Extremities: able to move all four extremities Plan: Sutures were removed in clinic today Continue to wear compression garment as needed for comfort RTC PRN documented in this encounter Plan of Treatment +--------+ + + + + | Date | Type | Specialty | Care Team | Description | +--------+ + + + + | 10/31/ | Appointment | Hematology & | Onc, Gen [address] | | | 2020 | | Oncology | [place], | | | | | | [place] [address] | | +--------+ + + + + documented as of this encounter Visit Diagnoses + + | Diagnosis | + + | Lipodystrophy | + + documented in this encounter
--- OUTSIDE RECORDS SUMMARY | ~2019-08-23 | XMS | Encounter Summary ---
Demographics + + + | Address | [address] | | | [place] [address] | + + + | Home Phone | | + + + | Preferred Language | Unknown | + + + | Marital Status | Single | + + + | Christianity Affiliation | RELIGIOUS | + + + | Race | White | + + + | Ethnic Group | Not or | + + + Author + + + | Organization | Unknown | + + + | Address | Unknown | + + + | Phone | Unavailable | + + + Support + + +---------+ + | Name | Relationship | Address | Phone | + + +---------+ + | Theodore Marquez | ECON | Unknown | | + + +---------+ + Care Team Providers + +------+ + | Care Caramel Cutter Hand Name | Role | Phone | + +------+ + | Jose Hameed MD | PCP | | + +------+ + Encounter Details +--------+--------+ + + + | Date | Type | Department | Care Team | Description | +--------+--------+ + + + | 11/20/ | Travel | | | | | 2019 | | | | | +--------+--------+ + + + Social History + +-------+ [...] + + documented as of this encounter Plan of Treatment +--------+ + + + + | Date | Type | Specialty | Care Team | Description | +--------+ + + + + | 10/31/ | Appointment | Hematology & | Onc, Gen [address] | | | 2020 | | Oncology | [place], | | | | | | [place] [address] | | +--------+ + + + + documented as of this encounter Visit Diagnoses Not on filedocumented in this encounter"
--- OUTSIDE RECORDS SUMMARY | ~2019-08-23 | XMS | Encounter Summary ---
Demographics + + + | Address | [address] | | | [place] [address] | + + + | Home Phone | | + + + | Preferred Language | Unknown | + + + | Marital Status | Single | + + + | Lutheran Affiliation | WORSHIP | + + + | Race | [...] + +---------+ + | Theodore Marquez | BHARGAV | Unknown | | + + +---------+ + Care Team Providers + +------+ + | Care Internet Project Manager Name | Role | Phone | + +------+ + | Rudolph Lee MD | PCP | | + +------+ + Encounter Details +--------+ + + + + | Date | Type | Department | Care Team | Description | +--------+ + + + + | 02/18/ | Procedure - | | Record, Operation | Operative Report | | 2001 | | | | | | | Transcribed | | | | +--------+ + + + + Social History + +-------+ +--------+------+ | Tobacco Use | Types | Packs/Day | Years | Date | | | | | Used | | + +-------+ +--------+------+ | Never Assessed | | | | | + +-------+ +--------+------+ + + + | Sex Assigned at [...] | | 2020 | | Oncology | [place], | | | | | | [place] [address] | | +--------+ + + + + documented as of this encounter Procedures + +--------+ + + + | Procedure Name | Priori | Date/Time | Associated Diagnosis | Comments | | | ty | | | | + +--------+ + + + | OPERATION RECORD | | 02/19/2002 | | Results for this | | | | | | procedure are in the | | | | | | results section. | + +--------+ + + + documented in this encounter Results OPERATION RECORD (02/19/2002) + + | Transcriptions | + + | Interface, Pt Escort In - 10/28/2005 1:04 AM PDT | | [address] | | [place], [place] [address] [place] | | [facility]Med Rec No.: [id number] Date: | | 02/18/2002Name: Shola Marquez SURGEON: Leni Siddiqui, | | TeenaASSISTANTS: Kade Simmons M.D.POSTOPERATIVE | | DIAGNOSIS(ES):Morbid obesity.OPERATIONS PERFORMED:Thoracic epidural catheter placement | | for laparoscopic bariatric surgeryunder fluoroscopic guidance.ANESTHESIA:1% | | Lidocaine mixed with bicarbonate. Intravenous conscious sedationadministered by | | Keenan Naranjo R.N., under the direct supervision of JenniferVookles, M.D.IV FLUIDS:100 cc | | of lactated Ringer's.SPECIMEN(S) REMOVED:None.DRAINS:None.INDICATIONS:The patient is a | | 52-year-old morbidly obese gentleman who is scheduled forlaparoscopic bariatric surgery | | on February 19, 2002. He presents today forplacement of a thoracic epidural catheter | | for postoperative pain control.He has a history of hypertension, gout, and | | obstructive sleep apnea. Hedenies any history of taking opioid medications | | preoperatively.PROCEDURE:After a detailed PARQ discussion, the patient gave written | | consent forperformance of the procedure. An intravenous line was started in | | thepatient's left hand, and he was then escorted to the [facility] | | Fluoroscopy Suite where he was placed on the procedure table in aprone position. | | Appropriate hemodynamic monitors were applied, including anoninvasive blood pressure | | cuff, EKG, and pulse oximeter.Fluoroscopy was then used to identify the T10 | | vertebral body. Thepatient's back was sterilely cleansed with Betadine and draped | | with steriletowels. The skin was then anesthetized at the proposed site of | | needleentry over the T10 vertebral body.Next, a 17-gauge 5-inch epidural Tuohy needle | | was then advanced underdirect fluoroscopic guidance until contact was made with the | | lamina at theT10 vertebral body. The angle of the epidural Tuohy needle was | | thenadjusted slightly cephalad and medial and then further advanced underdirect | | intermittent fluoroscopic guidance until the ligaments of the spinewere engaged. The | | needle was then further advanced using a loss ofresistance to saline | | technique.Upon achieving a loss of resistance to saline, fluoroscopy was used | | toconfirm appropriate needle position in the AP and lateral views. Theepidural | | catheter was then primed with Omnipaque 300 contrast and advancedthrough the epidural | | Tuohy needle. The patient denied any paresthesiaduring needle or catheter | | placement. The catheter was then advanced underdirect fluoroscopic guidance until the | | tip was observed to be in themidline and resting at the level of T8.Following | | negative aspiration, 2 cc of Omnipaque 300 contrast was theninjected and adequate | | epidural spread visualized in both the AP and lateralviews. The skin was then further | | anesthetized with an additional 6 cc of1% Lidocaine mixed with bicarbonate so as to | | form a subcutaneous tract ofanesthetized skin prior to tunneling. Next, a second | | 17-gauge five-inchepidural Tuohy needle was then used to tunnel through the | | subcutaneoustissue. The epidural catheter was then tunneled beneath the skin to | | anexit site [id number] cm lateral of the midline to the left. Both epidural Tuohy | | needles wereremoved intact and adequate hemostasis observed. 2.0 silk was used | | toapproximate the skin in the midline after an incision had been made tofacilitate | | catheter tunneling. The epidural catheter was then flushed with3 cc of | | preservative-free normal saline to clear the contrast. Thecatheter was then | | secured in place using a sterile occlusive dressing.The patient tolerated the | | procedure well without complications. Uponcompletion of the procedure, the | | patient's back was cleansed with Betadinesoap and dried. He then returned to the | | [facility] PostAnesthesia Care Unit, where he denied any | | complications. He remainedstable until discharge. The patient will be discharged to | | home and returnfor his scheduled surgical procedure tomorrow.ATTENDING SURGEON | | ATTESTATION:Pursuant to Federal Medicare regulations, I certify that Leni | Jhony Siddiqui M.D. was present throughout the entire procedure.Kade Simmons M.D. | | Leni Siddiqui M.D.Pain Management Fellow Rack Puncher of | | Anesthesia [facility] CenterAC/ja2D: | | 02/18/2002T: 02/20/2002 12:35 [id number]:Colin Posada M.D. | | | |Next, a 17-gauge 5-inch epidural Tuohy needle was then advanced under | |direct fluoroscopic guidance until contact was made with the lamina at the | |T10 vertebral body. The angle of the epidural Tuohy needle was then | |adjusted slightly cephalad and medial and then further advanced under | |direct intermittent fluoroscopic guidance until the ligaments of the spine | |were engaged. The needle was then further advanced using a loss of | |resistance to saline technique. | | | |Upon achieving a loss of resistance to saline, fluoroscopy was used to | |confirm appropriate needle position in the AP and lateral views. The | |epidural catheter was then primed with Omnipaque 300 contrast and advanced | |through the epidural Tuohy needle. The patient denied any paresthesia | |during needle or catheter placement. The catheter was then advanced under | |direct fluoroscopic guidance until the tip was observed to be in the | |midline and resting at the level of T8. | | | |Following negative aspiration, 2 cc of Omnipaque 300 contrast was then | |injected and adequate epidural spread visualized in both the AP and lateral | |views. The skin was then further anesthetized with an additional 6 cc of | |1% Lidocaine mixed with bicarbonate so as to form a subcutaneous tract of | |anesthetized skin prior to tunneling. Next, a second 17-gauge five-inch | |epidural Tuohy needle was then used to tunnel through the subcutaneous | |tissue. The epidural catheter was then tunneled beneath the skin to an | |exit site approximately | |10 cm lateral of the midline to the left. Both epidural Tuohy needles were | |removed intact and adequate hemostasis observed. 2.0 silk was used to | |approximate the skin in the midline after an incision had been made to | |facilitate catheter tunneling. The epidural catheter was then flushed with | |3 cc of preservative-free normal saline to clear the contrast. The | |catheter was then secured in place using a sterile occlusive dressing. | | | |The patient tolerated the procedure well without complications. Upon | |completion of the procedure, the patient's back was cleansed with Betadine | |soap and dried. He then returned to the [facility] Post | |Anesthesia Care Unit, where he denied any complications. He remained | |stable until discharge. The patient will be discharged to home and return | |for his scheduled surgical procedure tomorrow. | | | |ATTENDING SURGEON ATTESTATION: | |Pursuant to Federal Medicare regulations, I certify that Leni Siddiqui | |Teena was present throughout the entire procedure. | | | | | | | |Kade Simmons M.D. Leni Siddiqui M.D. | |Pain Management Fellow Rack Puncher of Anesthesia | | [facility] | | | | | |AC/ja2 | | | | A | |[phone] | | | |cc: | | | | | | | |Colin Posada M.D. | + + | Interface, Pt Escort In - 10/28/2005 1:04 AM PDT | | [address] | | [place], [place] [address] | | [facility] RECORDMed Rec No.: | | [id number] Date: 02/19/2002Name: Shola Marquez SURGEONS: | | Teena Day, | | TeenaPREOPERATIVE DIAGNOSIS(ES):Super morbid obesity with body mass index equal to | | 50.POSTOPERATIVE DIAGNOSIS(ES):Super morbid obesity with body mass index equal to | | 50.OPERATIONS PERFORMED:Laparoscopic Aidan-en-Y divided gastric bypass.SPECIMEN(S) | | REMOVED:None dictated.ANESTHESIA:General endotracheal.ESTIMATED BLOOD LOSS:50 | | cc.DRAINS:None.COMPLICATIONS:None.SALIENT OPERATIVE DETAILS:A 30 cc gastric pouch | | created with 150 cm antecolic, antegastric aidan limbbrought via omental | | fenestration.PROCEDURE:Informed consent was obtained. The patient was brought to the | | operatingroom and placed supine on the operating table and intubated with | | generalendotracheal anesthesia. He did receive preoperative | | intravenousantibiotics, Escalona catheter, orogastric tube, attempts at a central | | lineplacement were unsuccessful and this was aborted. The abdomen was preppedand | | draped in the usual sterile fashion.Insufflation using a Veress needle at the | | umbilicus was without incidentand six ports were placed in standard laparoscopic | | positions. We weregreeted with multiple omental adhesions in the right upper | | quadrant from aprior Tomasa incision for cholecystectomy. These were taken down | | bluntlyand sharply. This eventually afforded access to the entire | | abdominalcavity.We flipped the omentum over the transverse colon, identified the | | ligamentof Treitz, traced 30 cm distally to this, transected the bowel with theblue | | load stapling device and transected the mesentery with a white load.We put a [place] | | drain on the distal staple line, traced 150 cm from thiscreating 150 cm aidan limb and | | brought this marked area up to the proximaltransected staple line where we created a | | azqe-ag-cvpw enteroenterostomyafter placing stay sutures. We were very careful to | | check this aidan limband make sure that it was oriented correctly without mesenteric | | twisting orkinking, and in fact, we had twisted the bowel prior to creation | | ofanastomosis. This was corrected prior to the anastomosis.Once satisfied that the | | bowel was set up correctly, we created uszrh-ku-radw stapled enterostomy with | | two-layer hand-sewn running closureof the ostomies required for the stapler insertion. | | The mesenteric defectwas closed with two interrupted sutures.We brought the Darrell | | drain tagged aidan limb into the antecolic,antegastric position, created a | | fenestration in the greater omentum justanterior to the transverse colon and brought | | the Darrell drain tagged limbthrough this into the antegastric position.We turned our | | attention to the left upper quadrant, placed a Nathansonliver retractor with some | | difficulty, creating a small tear in the leftlobe of the liver which created a | | little bit of troublesome bleeding whichwas eventually stopped. We dissected the | | angle of His and then the lessercurvature of the stomach, creating a retrogastric | | tunnel using a bluntdissecting device, and with multiple firings of a blue loaded | | endoscopicstapling device we created a 30 cc gastric pouch around a 30 cc | | balloonwhich was attached to the end of the orogastric tube and inflated prior tothis | | maneuver.With the stomach safely transected, the balloon was deflated and we broughtthe | | aidan limb up to this proximal pouch and secured it there with threeinterrupted | | sutures, creating a back wall from the staple line of thestomach to the | | antimesenteric border of the aidan limb. Enterostomies werecreated with cautery and a | | blue loaded 3 cm stapling device was insertedvia each one and fired, creating a | | gastrojejunostomy stapled onpx-td-[id number]. The orogastric tube with the balloon | | deflated was passed acrossthis and the enterostomies were closed with a running | | Vicryl sutureoversewn with interrupted silk suture in two layers in standard | | fashion.Then 200 cc of methylene blue dyed saline was passed down the orogastrictube | | with the proximal aidan limb clamped off. There was no evidence ofleak from the | | enterostomy or the suture line. This dye was suctioned out.We removed ports one by one | | under laparoscopic vision after removing thePenrose drain and double-checking our | | sponge and needle count. The skinwas closed with 4-0 absorbable suture. The patient | | tolerated the procedurewell, was extubated in the operating room and | | transported to thepostanesthesia care unit in good condition and will be cared for | | overnighton the nursing riley.Colin Posada M.D. Gary Yeager | | TeenaDM:xt4D: 02/19/2002T: 02/20/[id number] | |of Treitz, traced 30 cm distally to this, transected the bowel with the | |blue load stapling device and transected the mesentery with a white load. | |We put a Darrell drain on the distal staple line, traced 150 cm from this | |creating 150 cm aidan limb and brought this marked area up to the proximal | |transected staple line where we created a pngz-sv-ktrz enteroenterostomy | |after placing stay sutures. We were very careful to check this aidan limb | |and make sure that it was oriented correctly without mesenteric twisting or | |kinking, and in fact, we had twisted the bowel prior to creation of | |anastomosis. This was corrected prior to the anastomosis. | | | |Once satisfied that the bowel was set up correctly, we created a | |xber-vw-vabx stapled enterostomy with two-layer hand-sewn running closure | |of the ostomies required for the stapler insertion. The mesenteric defect | |was closed with two interrupted sutures. | | | |We brought the Darrell drain tagged aidan limb into the antecolic, | |antegastric position, created a fenestration in the greater omentum just | |anterior to the transverse colon and brought the [place]au drain tagged limb | |through this into the antegastric position. | | | |We turned our attention to the left upper quadrant, placed a Jessica | |liver retractor with some difficulty, creating a small tear in the left | |lobe of the liver which created a little bit of troublesome bleeding which | |was eventually stopped. We dissected the angle of His and then the lesser | |curvature of the stomach, creating a retrogastric tunnel using a blunt | |dissecting device, and with multiple firings of a blue loaded endoscopic | |stapling device we created a 30 cc gastric pouch around a 30 cc balloon | |which was attached to the end of the orogastric tube and inflated prior to | |this maneuver. | | | |With the stomach safely transected, the balloon was deflated and we brought | |the aidan limb up to this proximal pouch and secured it there with three | |interrupted sutures, creating a back wall from the staple line of the | |stomach to the antimesenteric border of the aidan limb. Enterostomies were | |created with cautery and a blue loaded 3 cm stapling device was inserted | |via each one and fired, creating a gastrojejunostomy stapled ddyk-sl-ydsj | |fashion. The orogastric tube with the balloon deflated was passed across | |this and the enterostomies were closed with a running Vicryl suture | |oversewn with interrupted silk suture in two layers in standard fashion. | | | |Then 200 cc of methylene blue dyed saline was passed down the orogastric | |tube with the proximal aidan limb clamped off. There was no evidence of | |leak from the enterostomy or the suture line. This dye was suctioned out. | |We removed ports one by one under laparoscopic vision after removing the | |Darrell drain and double-checking our sponge and needle count. The skin | |was closed with 4-0 absorbable suture. The patient tolerated the procedure | |well, was extubated in the operating room and transported to the | |postanesthesia care unit in good condition and will be cared for overnight | |on the nursing riley. | | | | | | | |Colin Posada M.D. Gary Yeager M.D. | |DM:xt4 | | | | | |[phone] | + + documented in this encounter Visit Diagnoses Not on filedocumented in this encounter"
--- OUTSIDE RECORDS SUMMARY | ~2019-08-23 | XMS | Encounter Summary ---
Demographics + + + | Address | [address] | | | [place] [address] | + + + | Home Phone | | + + + | Preferred Language | Unknown | + + + | Marital Status | | + + + | Evangelical Affiliation | Unknown | + + + | Race | Unknown | + + + | Ethnic Group | Unknown | + + + Author + + + | Author | [facility] | | | and [place] | + + + | Organization | [facility] | | | and [...] | | | | | [place] [address] | | + + + + + Care Team Providers + +------+ + | Care Antique Jewelry Repairer Name | Role | Phone | + +------+ + | Lexie Cagle | PCP | | | TELEVISION ENGINEER | | | + +------+ + Reason for Visit + + + | Reason | Comments | + + + | Neurogenic Bladder | | + + + Encounter Details +--------+ + + + + | Date | Type | Department | Care Team | Description | +--------+ + + + + | 08/08/ | Clinical | [facility] | Michael Fernandes | Neurogenic bladder | | 2019 | Support | [address] | MD [address] | | | | | [place] | [place] | | | | | [address] | [address] | | | | | [phone] | | | +--------+ + + + [...] + documented as of this encounter Progress Katerina Irizarry RN - 08/08/2018 4:00 PM PDTPatient presents for monthly catheter fraser e. He is a week early, but per Dr. Fernandes, we can change it today. 16 Fr suprapubic fol ey catheter discontinued intact without difficulty. After sterile prep, 16 Fr suprapubic fo chloe catheter inserted into bladder with a small amount of urine drained from bladder. Attac hed to leg bag and night bag also given to patient. Patient will return to clinic in 1 jaden h for next catheter change. documented in this encounter Plan of Treatment +--------+---------+ + + + | Date | Type | Specialty | Care Team | Description | +--------+---------+ + + + | 11/12/ | Office | Sleep Medicine | Laith Sheffield PA | | | 2019 | Visit | | [address] | | | | | | [place] | | | | | | [address] | | | | | | | | +--------+---------+ + + + documented as of this encounter Visit Diagnoses + + | Diagnosis | + + | Neurogenic bladder Neurogenic bladder, NOS | + + documented in this encounter"
--- OUTSIDE RECORDS SUMMARY | ~2019-08-23 | XMS | Encounter Summary ---
Demographics + + + | Address | [address] | | | [place] [address] | + + + | Home Phone | | + + + | Preferred Language | Unknown | + + + | Marital Status | Single | + + + | Cheondoism Affiliation | TENRIISM | + + + | Race | White | + + + | Ethnic Group | Not or | + + + Author + + + | Author | [facility] | + + + | Organization | [facility] | + + + | Address | Unknown | + + + | Phone | Unavailable | + + + Support + + +---------+ + | Name | Relationship | Address | Phone | + + +---------+ + | Theodore Marquez | ECON | Unknown | | + + +---------+ + Care Team Providers + +------+ + | Care Changeover Operator Name | Role | Phone | + +------+ + | Trevin Delacruz MD | PCP | | + +------+ + Reason for Visit + + + | Reason | Comments | + + + | Medical Eye | | | Examination | | + + + | MS - Multiple | | | sclerosis | | + + + Encounter Details +--------+---------+ + + + | Date | Type | Department | Care Team | Description | +--------+---------+ + + + | 04/28/ | Office | [facility] | Ethel Romo MD | Multiple sclerosis | | 2016 | Visit | [place]/[facility]hthalmol | [address] | ([facility]) (Primary Dx); | | | | ogy at [facility] [address] | [place], [place] | Senile nuclear | | | | [address] Mailcode: | [address] | sclerosis, bilateral | | | | [facility] | [phone] | | | | | Health and Healing, | | | | | | Building | | | | | | Floor [place], [place] | | | | | | [address] | | | | | | [phone] | | | +--------+---------+ + + + [...] documented as of this encounter Progress Notes JeanEthel del angel - 04/28/2015 1:03 PM PSTFormatting of this note might be different from t he original. COMPREHENSIVE OPHTHALMOLOGY PROGRESS NOTE Assessment and Plan: Exam Date: 04/28/2015 Patient:Mian Marquez ([id number]) Impression: Multiple Sclerosis With history of optic neuritis OS 1997. -C/o difficulty seeing right VF. Also difficulty with higher order processing of visual inf ormation. -Visual field testing supports history of optic neuritis OS, may have had subclinical event OD as well. No hemifield defect on exam. Color blindness Early cataracts OU. Plan: RTC 1 year Physician: Ethel Romo MD 04/28/2015 HPI: Mian Marquez ([id number]), 65 y.o. year old male from [place] : Patient presents with: Medical Eye Examination MS - Multiple sclerosis Pt with MS here for annual exam. Pt states eyes are more tired than they were last year. He needs to wear his glasses more often. Glasses are 2 months old. Tobacco use: reports that he has never smoked. He has never used smokeless tobacco. Prima ry Care Provider: Trevin Delacruz MD Past ocular history: Multiple Sclerosis With history of optic neuritis OS 1997. C/o difficulty seeing right VF . Also difficulty with higher order processing of visual information. Color blindness Early cataracts OU. Family ocular history: family history includes Glasses in his brother, father, and mother. See scanned intake form or preadmission data in EPIC for full Family ocular and medical his tory. Allergies: is allergic to latex; adhesive tape; and sulfa (sulfonamide antibiotics). Medications: Current Outpatient Prescriptions Medication Sig ARIPiprazole 5 mg oral tablet Take 1 tablet by mouth once daily. Calcium Citrate-Vitamin D3 (CITRACAL + D PETITES) 200 mg calcium -250 unit oral tablet Take 2 tablets by mouth three times daily. cholecalciferol, vitamin D3, 50,000 unit oral tablet Take 50,000 Units by mouth every s even days. Indications: VITAMIN D DEFICIENCY (HIGH DOSE THERAPY) cyanocobalamin 1,000 mcg/mL injection solution Inject into the muscle (IM). ECONAZOLE 1 % topical cream gabapentin 400 mg oral capsule Take 2 capsules by mouth two times daily. glatiramer (COPAXONE) 40 mg/mL subcutaneous syringe Inject 40 mg under the skin (SUBC) three times weekly (on Monday, Monday and Monday). iron sucrose 100 mg iron/5 mL intravenous solution Every other month modafinil 200 mg oral tablet NaCl 0.9 % solp 500 mL with iron dextran 100 mg/2 mL (50 mg/mL) soln Inject into the v ein (IV) once. Every 2 months nitrofurantoin monohydrate/macrocrystal 100 mg oral capsule ONABOTULINUMTOXINA (BOTOX INJ) by injection route as needed (neurogenic bladder). oxyCODONE, immediate release, 5 mg oral tablet Take 1-2 tablets by mouth every four briana rs as needed. rOPINIRole 2 mg oral tablet Take 2 mg by mouth once daily in the evening. traZODone 50 mg oral tablet Take 1-2 tablets by mouth once daily at bedtime as needed. trospium 20 mg oral tablet venlafaxine XR 150 mg oral capsule,extended release 24hr Take 1 capsule by mouth once d aily. No current facility-administered medications for this visit. 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 Reviewed systems for: fever, wt. loss, ENT, cardiovascular, pulmonary, GI, urinary, neurolo gic, endocrine, bleeding/blood disorders, AIDS/HIV, cancer/tumors, arthritis - all were nega tive except as noted above. EXAMINATION: Base Exam Visual Acuity (Snellen - Linear) Right Left Dist cc 20/20 20/20 Correction: Glasses Tonometry (Applanation, 1:14 PM) Right Left Pressure 12 12 Wearing Rx Sphere Cylinder [place] Add Right -0.25 +1.50 160 +2.00 Left -0.50 +1.50 150 +2.00 Age: 1m Type: Progressive Addition lens Dilation Both eyes: 2.5% Phenylephrine, 1.0% Mydriacyl @ 1:15 PM Pupils Pupils Right PERRL Left PERRL Visual Cedillo (Counting fingers) Left Right Result Full Full Extraocular Movement Right Left Result Full, Ortho Full, Ortho Neuro/Psych Oriented x3: Yes Mood/Affect: Normal Additional Tests Color Right Left Ishihara 3/10 1/10 Slit Lamp and Fundus Exam External Exam Right Left External Normal Normal Slit Lamp Exam Right Left Lids/Lashes Normal Normal Conjunctiva/Sclera White and quiet pinguecula Cornea All layers clear All layers clear Anterior Chamber Deep and quiet Deep and quiet Iris Normal Normal Lens 1+ NSC 1+ NSC Vitreous Normal Normal Fundus Exam Right Left Disc Normal temporal pallor C/D Ratio 0.3 0.4 Macula few drusen Normal Vessels Normal Normal Periphery Normal Normal Ethel Lowe, performed, reviewed or revised the above history, medications, allergie s, as well as performed elements noted in the Base Ophthalmology Exam, including visual acui ty, pupils, EOMs, CVF and IOP. See EPIC ophthalmology module for exam information. "I Aziza, COT, am functioning as scribe for Ethel Romo MD" Assessment and Plan is now at the top of the note. Physician: Ethel Romo MD documented in this enc ounter Plan of Treatment +--------+ + + + + | Date | Type | Specialty | Care Team | Description | +--------+ + + + + | 10/31/ | Appointment | Hematology & | Onc, Gen [address] | | | 2020 | | Oncology | [address] [place], | | | | | | [place] [address] | | +--------+ + + + + documented as of this encounter Visit Diagnoses + + | Diagnosis | + + | Multiple sclerosis (HCC) - Primary Multiple sclerosis | + + | Senile nuclear sclerosis, bilateral | + + documented in this encounter
--- OUTSIDE RECORDS SUMMARY | ~2019-08-23 | XMS | Encounter Summary ---
Demographics + + + | Address | [address] | | | [place] [address] | + + + | Home Phone | | + + + | Preferred Language | Unknown | + + + | Marital Status | | + + + | Lutheran Affiliation | Unknown | + + + | Race | Unknown | + + + | Ethnic Group | Unknown | + + + Author + + + | Author | [facility] | | | and [place] | + + + | Organization | [facility] | | | and [place] | [...] | | | | | [place] [address] | | + + + + + Care Team Providers + +------+ + | Care Veterinary Microbiologist Name | Role | Phone | + +------+ + | Lexie Cagle | PCP | | | CYBERATHLETE | | | + +------+ + Reason for Visit + + + | Reason | Comments | + + + | Back Pain | | + + + Encounter Details +--------+ + + + + | Date | Type | Department | Care Team | Description | +--------+ + + + + | 12/14/ | Telephone | [facility] | Lexie Cagle | Back Pain | | 2019 | | MEDICINE [address] | | | | | [address] [place] | [address] | | | | | [place] [address] | [place] [address] | | | | | [phone] | [phone] | | | | | | | [...] as of this encounter Plan of Treatment +--------+---------+ + + + | Date | Type | Specialty | Care Team | Description | +--------+---------+ + + + | 11/12/ | Office | Sleep Medicine | Laith Sheffield PA | | | 2020 | Visit | | [address] | | | | | | [place] | | | | | | [address] | | | | | | | | +--------+---------+ + + + documented as of this encounter Visit Diagnoses + + | Diagnosis | + + | Acute right-sided low back pain without sciatica - Primary | + + documented in this encounter"
--- OUTSIDE RECORDS SUMMARY | ~2019-08-23 | XMS | Encounter Summary ---
Demographics + + + | Address | [address] | | | [place] [address] | + + + | Home Phone | | + + + | Preferred Language | Unknown | + + + | Marital Status | | + + + | Judaism Affiliation | Unknown | + + + | Race | Unknown | + + + | Ethnic Group | Unknown | + + + Author + + + | Author | [facility] | | | and [place] | + + + | Organization | [facility] | | | and [place] [...] | | | | | [place] [address] | | + + + + + Care Team Providers + +------+ + | Care Chainstitch Tunnel Elastic Operator Name | Role | Phone | + +------+ + | eLxie Cagle | PCP | | | WARES SORTER | | | + +------+ + Reason for Visit +--------+ + | Reason | Comments | +--------+ + | Other | | +--------+ + Encounter Details +--------+ + + + + | Date | Type | Department | Care Team | Description | +--------+ + + + + | 01/17/ | Telephone | [facility] | Michael Fernandes | Georges | | 2019 | | [address] | MD [address] | | | | | [place] | [place] | | | | | [address] | [address] | | | | | [phone] | | | +--------+ + + + [...] 2020 | Visit | | [address] | | | | | | [place] | | | | | | [address] | | | | | | | | +--------+---------+ + + + + +---------+--------+ + + | Name | Type | Priori | Associated Diagnoses | Order Schedule | | | | ty | | | + +---------+--------+ + + | US Renal Complete | Imaging | Routin | Nephrolithiasis | Expected: 11/04/2019 | | | | e | | (Approximate), | | | | | | Expires: 01/18/2020 | + +---------+--------+ + + documented as of this encounter Visit Diagnoses + + | Diagnosis | + + | Nephrolithiasis - Primary Calculus of kidney | + + documented in this encounter"
--- OUTSIDE RECORDS SUMMARY | ~2019-08-23 | XMS | Encounter Summary ---
Demographics + + + | Address | [address] | | | [place] [address] | + + + | Home Phone | | + + + | Preferred Language | Unknown | + + + | Marital Status | | + + + | Orthodox Affiliation | Unknown | + + + | Race | Unknown | + + + | Ethnic Group | Unknown | + + + Author + + + | Author | [facility] | | | and [place] | + + + | Organization | [facility] | | | and [place] [...] | | | | | [place] [address] | | + + + + + Care Team Providers + +------+ + | Care Inspector Wire Rope Name | Role | Phone | + +------+ + | Lexie Cagle | PCP | | | KENNEL AIDE | | | + +------+ + Reason for Visit + + + | Reason | Comments | + + + | Catheter Problem | | | (Leaking) | | + + + Encounter Details +--------+ + + + + | Date | Type | Department | Care Team | Description | +--------+ + + + + | 07/04/ | Telephone | [facility] | Michael Fernandes | Catheter Problem | | 2019 | | [address] | MD [address] | (Leaking) | | | | [place] | [place] | | | | | [address] | [address] | | | | | [phone] | | | +--------+ + + + [...] 2019 | Visit | | [address] | | | | | | [place] | | | | | | [address] | | | | | | | | +--------+---------+ + + + documented as of this encounter Visit Diagnoses Not on filedocumented in this encounter"
--- OUTSIDE RECORDS SUMMARY | ~2019-08-23 | XMS | Encounter Summary ---
Demographics + + + | Address | [address] | | | [place] [address] | + + + | Home Phone | | + + + | Preferred Language | Unknown | + + + | Marital Status | | + + + | Taoist Affiliation | Unknown | + + + | Race | Unknown | + + + | Ethnic Group | Unknown | + + + Author + + + | Author | [facility] | | | and [place] | + + + | Organization | [facility] | | | and [place] [...] | | | | | [place] [address] | | + + + + + Care Team Providers + +------+ + | Care Architectural Representative Name | Role | Phone | + +------+ + | No Physician | PCP | Unavailable | + +------+ + Encounter Details +--------+ + + + + | Date | Type | Department | Care Team | Description | +--------+ + + + + | 04/12/ | Episode | [facility] [place] [facility] | Manju Mccartney | | | 2019 | Changes | [address] | | | | | [place], [place] | | | | | | [address] | | | | | | [phone] | | | +--------+ + + + [...] | Visit | | [address] | | | | | | [place] | | | | | | [address] | | | | | | | | +--------+---------+ + + + documented as of this encounter Visit Diagnoses Not on filedocumented in this encounter"
--- OUTSIDE RECORDS SUMMARY | ~2019-08-23 | XMS | Encounter Summary ---
Demographics + + + | Address | [address] | | | [place] [address] | + + + | Home Phone | | + + + | Preferred Language | Unknown | + + + | Marital Status | Single | + + + | Restorationism Affiliation | EPISCOPAL | + + + | Race | [...] Team Providers + +------+ + | Care Sorter Pricer Name | Role | Phone | + +------+ + PCP | Unavailable | + +------+ + Encounter Details +--------+ + + + + | Date | Type | Department | Care Team | Description | +--------+ + + + + | 08/24/ | Results | | Trevin Brown | | | 1999 | Only | | [address] | | | | | | [address] | | | | | | [place] [address] | | | | | | [phone] | | | | | | | [...] | | | | | | [place] [address] | | +--------+ + + + + documented as of this encounter Procedures + +--------+ + + + | Procedure Name | Priori | Date/Time | Associated Diagnosis | Comments | | | ty | | | | + +--------+ + + + | URINE, MICROSCOPIC | Routin | 11/17/1999 | | Results for this | | EXAM | e | 4:01 PM | | procedure are in the | | | | PDT | | results section. | + +--------+ + + + | URINE SCREEN FOR | Routin | 11/17/1999 | | Results for this | | CULTURE | e | 4:01 PM | | procedure are in the | | | | PDT | | results section. | + +--------+ + + + | X-RAY HYDRODYNAMIC | Routin | 08/25/1999 | | Results for this | | VOIDING | e | 2:00 PM | | procedure are in the | | CYSTOURETHROGRAM | | PDT | | results section. | | (VCUG) | | | | | + +--------+ + + + documented in this encounter Results CULT, URINE SCREEN (11/17/1999 4:01 PM PDT) + + + + + + | Component | Value | Ref Range | Performed | Pathologist | | | | | At | Signature | + + + + + + | CULT, URINE | Negative, culture not | | [facility] | | | SCREEN | indicated | | DEPARTMENT | | | | | | OF | | | | | | PATHOLOGY | | + + + + + + + + | Specimen | + + | | + + + + + + + | Performing | Address | City/State/Zipcode | Phone Number | | Organization | | | | + + + + + | [facility] DEPARTMENT OF | [address] | [place] [address] | | | PATHOLOGY | [address] | | | + + + + + | [facility] | [address] | [place] [address] | | | PATHOLOGY | [address] | | | + + + + + URINE, MICROSCOPIC EXAM (11/17/1999 4:01 PM PDT) + +-------+ + + + | Component | Value | Ref Range | Performed | Pathologist | | | | | At | Signature | + +-------+ + + + | SQUAMOUS | Few | /hpf | [facility] | | | EPITHELIAL | | | DEPARTMENT | | | | | | OF | | | | | | PATHOLOGY | | + +-------+ + + + | NON-SQUAMOU | None | /hpf | [facility] | | | S EPITH | | | DEPARTMENT | | | | | | OF | | | | | | PATHOLOGY | | + +-------+ + + + | RED CELLS | None | 0 - 3 /hpf | [facility] | | | | | | DEPARTMENT | | | | | | OF | | | | | | PATHOLOGY | | + +-------+ + + + | WHITE CELLS | None | 0 - 5 /hpf | [facility] | | | | | | DEPARTMENT | | | | | | OF | | | | | | PATHOLOGY | | + +-------+ + + + | BACTERIA | None | /hpf | [facility] | | | | | | DEPARTMENT | | | | | | OF | | | | | | PATHOLOGY | | + +-------+ + + + | MUCOUS | None | /lpf | [facility] | | | | | | DEPARTMENT | | | | | | OF | | | | | | PATHOLOGY | | + +-------+ + + + | HYALINE | None | 0 - 1 /lpf | [facility] | | | CASTS | | | DEPARTMENT | | | | | | OF | | | | | | PATHOLOGY | | + +-------+ + + + | GRANULAR | None | /lpf | [facility] | | | CASTS | | | DEPARTMENT | | | | | | OF | | | | | | PATHOLOGY | | + +-------+ + + + | CELLULAR | None | /lpf | [facility] | | | CASTS | | | DEPARTMENT | | | | | | OF | | | | | | PATHOLOGY | | + +-------+ + + + | CALCIUM | Few | /hpf | [facility] | | | OXALATE | | | DEPARTMENT | | | SUE | | | OF | | | | | | PATHOLOGY | | + +-------+ + + + + + | Specimen | + + | | + + + + + + + | Performing | Address | City/State/Zipcode | Phone Number | | Organization | | | | + + + + + | [facility] | [address] | [place] [address] | | | PATHOLOGY | [address] | | | + + + + + | [facility] | [address] | [place] [address] | | | PATHOLOGY | [address] | | | + + + + + CYSTOGRAM, VOIDING W/HYDRODYN (08/25/1999 2:00 PM PDT) + + + + + + | Component | Value | Ref Range | Performed | Pathologist | | | | | At | Signature | + + + + + + | HYDRODYNAMI | Radiologist 1: KAREN, | | | | | [facility] | SHERI Novak M.D.VOIDING | | | | | | CYSTOGRAM WITH | | | | | | HYDRODYNAMICS: | | | | | | 08/25/99 Dictated: | | | | | | 08/26/99 COMPARISON: | | | | | | None. FINDINGS: | | | | | | Fluoroscopy time was | | | | | | provided for Dr. Brown | | | | | | to perform | | | | | | theprocedure. A report | | | | | | to include | | | | | | hydrodynamics will be | | | | | | rendered by . | | | | + + + + + + + + | Specimen | + + | | + + + +---------+ + + | Performing | Address | City/State/Zipcode | Phone Number | | Organization | | | | + +---------+ + + | [facility] DEPARTMENT OF | | | | | RADIOLOGY | | | | + +---------+ + + documented in this encounter Visit Diagnoses Not on filedocumented in this encounter"
--- OUTSIDE RECORDS SUMMARY | ~2019-08-23 | XMS | Encounter Summary ---
Demographics + + + | Address | [address] | | | [place] [address] | + + + | Home Phone | | + + + | Preferred Language | Unknown | + + + | Marital Status | Single | + + + | Sikhism Affiliation | ALEVISM | + + + | Race | White | + + + | Ethnic Group | Not or | + + + Author + + + | Author | [facility] | + + + | Organization | [facility] | + + + | Address | Unknown | + + + | Phone | Unavailable | + + + Support + + +---------+ + | Name | Relationship | Address | Phone | + + +---------+ + | Theodore Marquez | ECON | Unknown | | + + +---------+ + Care Team Providers + +------+ + | Care Habilitative Interventionist Name | Role | Phone | + +------+ + PCP | Unavailable | + +------+ + Encounter Details +--------+ + + + + | Date | Type | Department | Care Team | Description | +--------+ + + + + | 06/07/ | Results | Neurology Multiple | Christian Maldonado MD | | | 1999 | Only | [facility] | [address] | | | | | [address] [place] | | | | | [place] Mailcode: | [place] [address] | | | | | [id number] | [phone] | | | | | Clinic Building | | | | | | [place] | | | | | | [address] | | | | | | [phone] | | | +--------+ + + + [...] | | | | | | [place] [address] | | +--------+ + + + + documented as of this encounter Procedures + +--------+ + + + | Procedure Name | Priori | Date/Time | Associated Diagnosis | Comments | | | ty | | | | + +--------+ + + + | MRI C-SPINE, 3 SEQ, | Routin | 06/08/1999 | | Results for this | | [facility] | e | 7:20 PM | | procedure are in the | | | | PST | | results section. | + +--------+ + + + | MRI BRAIN, 3 SEQ, [facility] | Routin | 06/08/1999 | | Results for this | | | e | 7:20 PM | | procedure are in the | | | | PST | | results section. | + +--------+ + + + documented in this encounter Results MRI C-SPINE, 3 SEQ, [facility] (06/08/1999 7:20 PM PST) + + + + + + | Component | Value | Ref Range | Performed | Pathologist | | | | | At | Signature | + + + + + + | MRI | Radiologist 1: DALILA, | | | | | C-SPINE, 3 | ROS Novak, | | | | | NAZANIN, [facility] | M.DNatalie-Radiologist 2: BENNIE | | | | | | HUYEN DODSON, | | | | | | M.D.[facility] | | | | | | IMAGING OF CERVICAL | | | | | | SPINE: 06/08/99 | | | | | | Dictated: 06/09/99 | | | | | | FINDINGS: There is | | | | | | normal alignment of the | | | | | | cervical spinal | | | | | | column.Vertebral body | | | | | | heights are grossly | | | | | | maintained. There is no | | | | | | evidencefor acute | | | | | | fracture. Mild | | | | | | multilevel degenerative | | | | | | disc disease is | | | | | | seen.Mild posterior disc | | | | | | bulges at C5-6 and | | | | | | C7-T1 levels are | | | | | | incidentlynoted. The | | | | | | neural foramina are | | | | | | patent. There is no | | | | | | evidence for abnormal | | | | | | signal within the | | | | | | visualized spinalcord or | | | | | | posterior fossa | | | | | | structures to suggests | | | | | | demylination. Note | | | | | | thatthis study was not | | | | | | done with contrast. If a | | | | | | contrast enhanced study | | | | | | isrequested the patient | | | | | | may return for those | | | | | | contrast | | | | | | enhancedsequences. | | | | | | IMPRESSION: 1. The | | | | | | visualized cervical cord | | | | | | is normal in signal, | | | | | | caliber andcontour | | | | | | without evidence for | | | | | | demyelinating lesion. 2. | | | | | | Minimal scattered | | | | | | degenerative changes. | | | | | | END OF IMPRESSION: | | | | + + + + + + + + | Specimen | + + | | + + + +---------+ + + | Performing | Address | City/State/Zipcode | Phone Number | | Organization | | | | + +---------+ + + | [place] [facility] | | | | | RADIOLOGY | | | | + +---------+ + + MRI BRAIN, 3 SEQ, (06/08/1999 7:20 PM PST) + + + + + + | Component | Value | Ref Range | Performed | Pathologist | | | | | At | Signature | + + + + + + | MRI BRAIN, | Radiologist 1: DALILA, | | | | | 3 SEQ, | ROS Novak, | | | | | | M.D.-Radiologist 2: BENNIE | | | | | | HUYEN DODSON, | | | | | | M.D.[facility] | | | | | | IMAGING STUDY OF THE | | | | | | BRAIN: 06/08/99 at | | | | | | 1920hours. Dictated | | | | | | 06/09/99. COMPARISONS: | | | | | | None. CLINICAL | | | | | | HISTORY: Multiple | | | | | | sclerosis. PROCEDURE: | | | | | | Sagittal T1, axial and | | | | | | coronal proton density | | | | | | and C2stuuxzif brain | | | | | | magnetic resonance | | | | | | imaging study. FINDINGS: | | | | | | Bilateral | | | | | | periventricular | | | | | | confluent areas of T2 | | | | | | signalabnormality are | | | | | | identified. Also seen | | | | | | are multiple discrete | | | | | | foci ofT2/PD signal | | | | | | abnormality distributed | | | | | | bilaterally in the deep | | | | | | whitematter of the | | | | | | cerebral hemispheres and | | | | | | in the periventricular | | | | | | regions.Some of these | | | | | | lesions are immediately | | | | | | adjacent to the | | | | | | lateralventricles and | | | | | | project perpendicularly | | | | | | from them. A 1.5 cm | | | | | | rounded discrete mass | | | | | | with high T2 and low T1 | | | | | | signal and mildmass | | | | | | effect is adjacent to | | | | | | the left anterior body | | | | | | of the corpuscallosum. | | | | | | IMPRESSION: Findings of | | | | | | multiple deep and | | | | | | periventricular white | | | | | | matterabnormalities in a | | | | | | pattern consistent with | | | | | | multiple sclerosis. | | | | | | Theleft frontal lobe | | | | | | lesion adjacent to the | | | | | | corpus callosum likely | | | | | | isactive. Contrast was | | | | | | not administered. If | | | | | | contrast enhanced | | | | | | magneticresonance | | | | | | imaging study is needed, | | | | | | the patient can return | | | | | | for thatportion of the | | | | | | exam. END OF | | | | | | IMPRESSION: | | | | + + + + + + + + | Specimen | + + | | + + + +---------+ + + | Performing | Address | City/State/Zipcode | Phone Number | | Organization | | | | + +---------+ + + | [facility] DEPARTMENT OF | | | | | RADIOLOGY | | | | + +---------+ + + documented in this encounter Visit Diagnoses Not on filedocumented in this encounter"
--- OUTSIDE RECORDS SUMMARY | ~2019-08-23 | XMS | Encounter Summary ---
Demographics + + + | Address | [address] | | | [place] [address] | + + + | Home Phone | | + + + | Preferred Language | Unknown | + + + | Marital Status | Single | + + + | Scientologist Affiliation | ZOROASTRIAN | + + + | Race | White | + + + | Ethnic Group | Not or | + + + Author + + + | Author | [facility] | + + + | Organization | [facility] | + + + | Address | Unknown | + + + | Phone | Unavailable | + + + Support + + +---------+ + | Name | Relationship | Address | Phone | + + +---------+ + | Theodore Marquez | ECON | Unknown | | + + +---------+ + Care Team Providers + +------+ + | Care Attic Fans Mechanic Name | Role | Phone | + +------+ + | Jose Hameed MD | PCP | | + +------+ + Reason for Referral PROC - Outpatient Surgery (Routine) +--------+--------+ + + + + | Status | Reason | Specialty | Diagnoses / | Referred By | Referred To | | | | | Procedures | Contact | Contact | +--------+--------+ + + + + | Closed | | Plastic | Diagnoses | Richy, | Richy, | | | | Surgery | | MD Neto | MD Neto | | | | | Neuromuscula | [address] | | | | | [address] | [address] | [address] | | | | | cj | Eduarda James | Jacob [place], | | | | | of bladder, | [place], [place] | [place] | | | | | unspecified | [address] | [address] | | | | | | Phone: | Phone: | | | | | Incontinence | [phone] | [phone] | | | | | without | Fax: | Fax: | | | | | sensory | [phone] | [phone] | | | | | awareness | | | | | | | Excessive | | | | | | | and | | | | | | | redundant | | | | | | | skin and | | | | | | | subcutaneous | | | | | | | tissue | | | | | | | Procedures | | | | | | | REQUEST TO | | | | | | | SURGERY | | | | | | | PROJECT ENG | | | | | | | PA EXCISE | | | | | | | EXCESS SKIN | | | | | | | TISSUE,OTHER | | | +--------+--------+ + + + + Reason for Visit + + + | Reason | Comments | + + + | 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 | + + + Encounter Details +--------+---------+ + + + | Date | Type | Department | Care Team | Description | +--------+---------+ + + + | 12/03/ | Office | Plastic and | Neto Lockhart, | Urinary | | 2019 | Visit | Reconstructive | MD London Duke | incontinence, | | | | Surgery at [facility] [address] | unspecified type | | | | [address] | [place], [place] | (Primary Dx); | | | | Mailcode: 5 | [phone] | Multiple sclerosis | | | | [facility] | [phone] | ([facility]); Chronic | | | | and Healing, | | fatigue syndrome; | | | | [address] | | Persistent | | | | Floor [place], [place] | | depressive disorder; | | | | [address] | | Essential | | | | [phone] | | hypertension; CHRISTEN on | | | | | | CPAP; Neurogenic | | | | | | bladder; | | | | | | Gastroesophageal | | | | | | reflux disease | | | | | | without esophagitis; | | | | | | Intertriginous | | | | | | candidiasis; | | | | | | LAP-BAND surgery | | | | | | status; BMI | | | | | | 29.0-29.9,adult | +--------+---------+ + + + Social History [...] + + documented as of this encounter Last Filed Vital Signs + + + + + | Vital Sign | Reading | Time Taken | Comments | + + + + + | Blood Pressure | 165/100 | 12/03/2018 10:59 AM | | | | | PDT | | + + + + + | Pulse | 82 | 12/03/2018 10:59 AM | | | | | PDT | | + + + + + | Temperature | - | - | | + + + + + | Respiratory Rate | 16 | 12/03/2018 10:59 AM | | | | | PDT | | + + + + + | Oxygen Saturation | 98% | 12/03/2018 10:59 AM | | | | | PDT | | + + + + + | Inhaled Oxygen | - | - | | | Concentration | | | | + + + + + | Weight | 92.4 kg (203 lb 12.8 | 12/03/2018 10:59 AM | | | | oz) | PDT | | + + + + + | Height | 177.8 cm (5' 10") | 12/03/2018 10:59 AM | | | | | PDT | | + + + + + | Body Mass Index | 29.24 | 12/03/2018 10:59 AM | | | | | PDT | | + + + + + documented in this encounter Patient Instructions Patient Instructions Neto Lockhart MD - 12/03/2018 11:15 AM PDTAvoid all NSAIDs, anticoa gulation medications, garlic, Vit E, fish oil, herbs and alcohol for a week prior to surgery . documented in this encounter Progress Notes Neto Lockhart MD - 12/03/2018 11:15 AM PDTFormatting of this note might be different fro m the original. Division of Plastic and Reconstructive Surgery REFERRING PROVIDER: Shukri Olivier MD HPI: Mian Marquez is a 68 year old male status post panniculectomy on 03/03/15. Patient returns to clinic today following a referral from Dr. Shukri Olivier in urology to address ongoing ur inary incontinence. Per Dr. Olivier, patient has a history of neurogenic bladder managed with intermittent catheterization. His urinary incontinence has been refractory to oxybutynin, t olterodine, trospium, InterStim, and Botox. He continues to perform intermittent catheteriza tion about 5 times a day. He has insensible urinary incontinence requiring 2-3 pull-ups per day. It remains a significant bother for him and his quality of life. He was suggested to pu rsue a condom catheter, but has problems with fit due to a lot of remaining suprapubic tissu e. Patient presents to clinic today to discuss options available to address excess tissue in the mons region that may allow for a better fit for a condom catheter. His weight has been relatively stable since his previous visit. Past Medical History: Diagnosis Date Back pain s/p surgery Depressive disorder, not elsewhere classified GERD (gastroesophageal reflux disease) severe 07/2014 Low ferritin iron infusions in past MS (multiple sclerosis) ([facility]) gait/ cognition issues Obesity CHRISTEN on CPAP Other and unspecified symptoms and signs involving general sensations and perceptions Restless legs Urinary retention self caths Past Surgical History Procedure Laterality Date Lap-band insertion 2011 standard/ in [place] Benito-en-y gastric bypass 2006 [facility]/ [place] Back surgery lumbar Cholecystectomy as above Social History Tobacco Use Smoking status: Never Smoker Smokeless tobacco: Never Used Substance Use Topics Alcohol use: No Social History Social History Narrative Not on file Family History Problem Relation Glasses Mother Glasses Father Glasses Brother Allergies Allergen Reactions Latex Rash Adhesive Tape Pruritus Current Medication List Name Sig AMANTADINE HCL 100 MG CAPSULE Take 1 capsule by mouth two times daily. Indications: fatigue associated with multiple sclerosis CHOLECALCIFEROL (VITAMIN D3) 5,000 UNIT TABLET Take 5,000 Units by mouth once daily. CYANOCOBALAMIN (VIT B-12) 1,000 MCG/ML INJECTION SOLUTION Inject into the muscle (IM). DULOXETINE 60 MG CAPSULE,DELAYED RELEASE Take 1 capsule by mouth once daily. To be taken wi th 30mg capsule for total daily dose of 90mg IRON SUCROSE 100 MG IRON/5 ML INTRAVENOUS SOLUTION Every other month IRON DEXTRAN IV Inject into the vein (IV) once. Every 2 months BOTOX INJ by injection route as needed (neurogenic bladder). OXYCODONE 5 MG TABLET Take 5 mg by mouth every six hours as needed. POLYETHYLENE GLYCOL 3350 17 GRAM/DOSE ORAL POWDER Mix in liquid and drink. ROPINIROLE 2 MG TABLET Take 2 mg by mouth once daily in the evening. SENNOSIDES 8.6 MG TABLET Take by mouth. TRAZODONE 100 MG TABLET Take 2 tablets by mouth once daily at bedtime. Dispense 3 months if possible Indications: insomnia associated with depression WARFARIN 5 MG TABLET Take 5 mg by mouth once daily. Physical Exam: BP (!) 165/100 (BP Location: Right upper arm, Patient Position: Sitting) | Pulse 82 | Res p 16 | Ht 1.778 m (5' 10") | Wt 92.4 kg (203 lb 12.8 oz) | SpO2 98% | BMI 29.24 kg/m | BSA 2.14 m General: A & O x 3, sitting in chair in NAD CV: RRR, heart murmur (4/6) Lung: CTA bilaterally, no wheezes Abdomen: soft, NT, ND, normoactive BS. Palpable port in the right abdomen for gastric band. A very protuberant abdomen. No active rashes in bilateral inguinal region. Previous pannicu lectomy scar is well healed. A well-healed suprapubic catheter. No gross abdominal hernia. Weak anterior abdominal wall muscle tone. A horizontal epigastric pannus of 6 cm and a 4 cm mons ptosis. Extremities: No edema to bilateral lower extremity. Varicose veins present bilaterally. Assessment and Plan: Mian Marquez is a 68 year old male about three and half years status post panniculectomy in 2014, overall doing well. Patient returned to clinic today to discuss options available for wedge monsplasty. 1. Mons ptosis - Patient has been following up with urology due to ongoing urinary incontin ence and has been unable to use a condom catheter due to the presence of excess suprapubic t issue. He was referred to plastic surgery to address this issue in attempts of creating a be tter fit with the condom catheter. Physical exam revealed moderate amount of mons ptosis and I recommended a wedge monsplasty. The details and risks of the procedure were explained to the patient. He voiced understanding and wished to proceed. We will submit his claim to [facility] [employer] and contact the patient regarding approval. 2. BMI 29.24 - Recommended healthy diet and exercise to decreased intraabdominal pressure. He may also benefit from increased strengthening of the abdominal wall muscles to address hi s protuberant abdomen. 3. Avoid all NSAIDs, anticoagulation medications, garlic, Vit E, fish oil, herbs and alcoho l for a week prior to surgery. 4. Hypertension - evaluation and management per his primary care physician. I am Jason Felder functioning as a scribe for Neto Lockhart MD at 8:37 AM on 12/03/2018. I spent 40 minutes with this patient, over 50% of which was in consultation. Neto Lockhart MD PLASTIC AND RECONSTRUCTIVE SURGERY AT [facility] [address] [facility] Mailcode: 5p [phone] documented in this en counter Plan of Treatment +--------+ + + + + | Date | Type | Specialty | Care Team | Description | +--------+ + + + + | 10/31/ | Appointment | Hematology & | Onc, Gen [address] | | | 2019 | | Oncology | [facility], | | | | | | [place] [address] | | +--------+ + + + + documented as of this encounter Visit Diagnoses + + | Diagnosis | + + | Urinary incontinence, unspecified type - Primary | + + | Multiple sclerosis (HCC) Multiple sclerosis | + + | Chronic fatigue syndrome | + + | Persistent depressive disorder | + + | Essential hypertension | + + | CHRISTEN on CPAP Obstructive sleep apnea (adult) (pediatric) | + + | Neurogenic bladder Neurogenic bladder, NOS | + + | Gastroesophageal reflux disease without esophagitis Esophageal reflux | + + | Intertriginous candidiasis Candidiasis of skin and nails | + + | LAP-BAND surgery status Bariatric surgery status | + + | BMI 29.0-29.9,adult Body Mass Index 29.0-29.9, adult | + + documented in this encounter
--- OUTSIDE RECORDS SUMMARY | ~2019-08-23 | XMS | Encounter Summary ---
Demographics + + + | Address | [address] | | | [place] [address] | + + + | Home Phone | | + + + | Preferred Language | Unknown | + + + | Marital Status | Single | + + + | Jehovah'S Witness Affiliation | TENRIISM | + + + | Race | White | + + + | Ethnic Group | Not or | + + + Author + + + | Author | [facility] | + + + | Organization | [facility] | + + + | Address | Unknown | + + + | Phone | Unavailable | + + + Support + + +---------+ + | Name | Relationship | Address | Phone | + + +---------+ + | Theodore Marquez | ECON | Unknown | | + + +---------+ + Care Team Providers + +------+ + | Care Alteration Manager Name | Role | Phone | + +------+ + | Rudolph Lee MD | PCP | | + +------+ + Encounter Details +--------+ + + + + | Date | Type | Department | Care Team | Description | +--------+ + + + + | 06/15/ | Office | [facility] | Note, Outpatient | Progress Note | | 2000 | Visit-Trans | MEDICINE | Clinic | | | | cribed | | | | +--------+ + + [...] documented as of this encounter Progress Notes Interface, Pediatric Dental Hygienist In - 02/20/2006 2:22 AM [facility] DATE: 06/16/1999 MULTIPLE SCLEROSIS CLINIC LAST VISIT: June 04, 1999 INTERVAL HISTORY: Mr. Marquez returns to clinic for followup of his laboratory evaluation and MRI scans which were performed following his last clinic visit. He reports that since his last visit he has restarted his Paxil for depression. He continues to have difficulties with dry mouth, which has not changed, irregardless of whether or not he takes his Paxil. He continues to note difficulties with stress, to which he states this is most apparent in that his blood pressure is elevated. I explained to him that his blood pressure problems were unlikely to be related to his multiple sclerosis. He had multiple questions regarding stress and its relationship to multiple sclerosis, as well as toxic exposures. He also questions whether or not he should be working as many hours as he currently works. CURRENT MEDICATIONS: Paxil two tablets a day. PHYSICAL EXAMINATION: GENERAL: Mr. Marquez is an obese white male appearing in no acute distress. VITAL SIGNS: Blood pressure is 160/110 measured with the large cuff. Pulse is 84 and weight is 317 pounds. NEUROLOGIC: A full neurologic examination was not performed today. DIAGNOSTIC STUDIES: MRI scan shows the development of a new lesion not noted on his previous scan. This lesion was located in the left frontal lobe adjacent to the corpus callosum. Unfortunately, gadolinium was not given; however, the lesion appears active. A cervical spine MRI revealed no demyelinating lesions. LABORATORY EVALUATION: A homocystine level that continues to be mildly elevated. B12 level was less than 300, but not overtly low. Thyroid testing revealed no evidence for hypothyroidism. LORENZO remained elevated at 1 to 40 in a speckled pattern. 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 Mr. Marquez has evidence for disease progression by magnetic resonance imaging when comparing his scan from February 1998 to his current magnetic resonance imaging scan. Historically, he may have had symptoms dating back as far as 15 years ago when he had episodic difficulties with balance. Today, I discussed with him the treatment options for his disease. We discussed Avonex, Betaseron, and Copaxone. In addition, he was given information to take with him and study regarding these three medications. I strongly encouraged him to consider treatment as these medications would likely slow development of additional lesions by magnetic resonance imaging over time. I did explain to him that these were medications that would need to be taken indefinitely. He had multiple work issues to discuss today, and I recommend that he discuss these with Dr. Vuong when he returns for ongoing care with him and discuss his decision regarding prophylactic medications. I also explained to him that it would be reasonable for him to contact the [employer] to discuss his work issues and to get help with regards to his concerns about inability to work 13 hour days. The visit lasted 30 minutes. RECOMMENDATIONS 1. The patient is to return to Dr. Vuong to discuss treatment options and to initiate treatment with either Avonex, Betaseron or Copaxone. 2. I would prefer initiating treatment with an interferon as his disease course is more suggestive of a secondary progressive form of multiple sclerosis. 3. I would consider neuropsychological testing to determine extent of his cognitive dysfunction. 4. I will have Martha Jj contact him regarding available services through the [employer] and also to discuss how to proceed with his concerns regarding work. 5. The patient may return to clinic for additional consultation as Dr. Vuong feels is necessary. Christian Maldonado M.D. MERARY / VICTOR M [id number] / [id number] / [id number] / [id number] cc: Colin Vuong M.D. [address] [place] [id number] Rudolph Lee M.D. [address] [id number] signed by Stacy, Pediatric Dental Hygienist In at 02/20/2006 2:22 AM PSTdocumented in this encounter Plan of Treatment +--------+ + + + + | Date | Type | Specialty | Care Team | Description | +--------+ + + + + | 10/31/ | Appointment | Hematology & | Onc, Gen [address] | | | 2020 | | Oncology | [place], | | | | | | [place] [address] | | +--------+ + + + + documented as of this encounter Visit Diagnoses Not on filedocumented in this encounter"
--- OUTSIDE RECORDS SUMMARY | ~2019-08-23 | XMS | Encounter Summary ---
Demographics + + + | Address | [address] | | | [place] [address] | + + + | Home Phone | | + + + | Preferred Language | Unknown | + + + | Marital Status | Single | + + + | Hindu Affiliation | JAINISM | + + + | Race | [...] Team Providers + +------+ + | Care Windows Infrastructure Engineer Name | Role | Phone | + +------+ + | Rudolph Lee MD | PCP | | + +------+ + Encounter Details +--------+ + + + + | Date | Type | Department | Care Team | Description | +--------+ + + + + | 09/05/ | Office | | Note, Outpatient | Progress Note | | 2003 | Visit-Trans | | Clinic | | | | cribed [...] as of this encounter Progress Notes Interface, Horseradish Maker In - 10/19/2005 3:01 AM PDTCLINIC DATE: 09/05/2002 CLINICAL HISTORY: Mr. Marquez returns 3 months after having a laparoscopic Benito-en-Y divided gastric bypass approximately 6-1/2 months ago. The patient's weight today is 235 pounds, and he has a lost a total of 128 pounds, down from a 120 pounds from his preoperative weight (preop weight was 355 pounds). The patient has done very well in terms of his weight loss but has had some issues with food desire. He has dealt with this through a support group and states that he is doing better. In terms of his surgery, he has no complaints. CURRENT MEDICATIONS: His multiple sclerosis medications and multivitamin, Tums, and ranitidine. PHYSICAL EXAMINATION LUNGS: Clear to auscultation bilaterally. HEART: Regular rate and rhythm. ABDOMEN: Soft and nontender. Wounds are well healed. No evidence of hernia. LABORATORY DATA: His CBC and complete metabolic panel are pending at this time. ASSESSMENT: Stable from his surgical procedure. PLAN 1. The patient will continue his current medications and vitamins. 2. He will be set up with a personalized living assistant in Physical Therapy. He will follow up in 1 year with labs at that time. The patient was seen and examined with Dr. Posada. Zach Nails MD General Surgery Resident Colin Posada M.D. / [id number] / [id number] / [id number] / Tdocumented in this encounter Plan of Treatment +--------+ + + + + | Date | Type | Specialty | Care Team | Description | +--------+ + + + + | 10/31/ | Appointment | Hematology & | Onc, Gen [address] | | | 2020 | | Oncology | [place], | | | | | | [place] [address] | | +--------+ + + + + documented as of this encounter Visit Diagnoses Not on filedocumented in this encounter"
--- OUTSIDE RECORDS SUMMARY | ~2019-08-23 | XMS | Encounter Summary ---
Demographics + + + | Address | [address] | | | [place] [address] | + + + | Home Phone | | + + + | Preferred Language | Unknown | + + + | Marital Status | | + + + | Scientology Affiliation | Unknown | + + + | Race | Unknown | + + + | Ethnic Group | Unknown | + + + Author + + + | Author | [facility] | | | and [place]aden[place] | + + + | Organization | [facility] | | | and [place]adenana [...] | | | | | [place] [address] | | + + + + + Care Team Providers + +------+ + | Care Roster Clerk Name | Role | Phone | + +------+ + | Lexie Cagle | PCP | | | MIRROR FABRICATION SUPERVISOR | | | + +------+ + Reason for Visit + + + | Reason | Comments | + + + | Surgery Appointment | | + + + Encounter Details +--------+ + + + + | Date | Type | Department | Care Team | Description | +--------+ + + + + | 04/30/ | Telephone | [facility] | Michael Fernandes | Surgery Appointment | | 2019 | | [address] | MD [address] | | | | | [place] | [place] | | | | | [address] | [address] | | | | | [phone] | | | +--------+ + + + [...] 2019 | Visit | | [address] | | | | | | [place] | | | | | | [address] | | | | | | | | +--------+---------+ + + + documented as of this encounter Visit Diagnoses Not on filedocumented in this encounter"
--- OUTSIDE RECORDS SUMMARY | ~2019-08-23 | XMS | Encounter Summary ---
Demographics + + + | Address | [address] | | | [place] [address] | + + + | Home Phone | | + + + | Preferred Language | Unknown | + + + | Marital Status | Single | + + + | Jainism Affiliation | HINDU | + + + | Race | White | + + + | Ethnic Group | Not or | + + + Author + + + | Author | [facility] | + + + | Organization | [facility] | + + + | Address | Unknown | + + + | Phone | Unavailable | + + + Support + + +---------+ + | Name | Relationship | Address | Phone | + + +---------+ + | Theodore Marquez | ECON | Unknown | | + + +---------+ + Care Team Providers + +------+ + | Care Pie Bottomer Name | Role | Phone | + +------+ + | Trevin Delacruz MD | PCP | | + +------+ + Reason for Visit + + + | Reason | Comments | + + + | Appointment | Outside Provider Appt Request | + + + Encounter Details +--------+ + + + + | Date | Type | Department | Care Team | Description | +--------+ + + + + | 11/14/ | Documentati | Digestive Health | Emilie Sanchez, | Appointment (Outside | | 2014 | on | Center at [facility] [address] | MD | Provider Appt | | | | Kayli Fitzpatrick | | Request) | | | | Mailcode: Center | | | | | | for Health and | | | | | | [facility], [facility] | | | | | | [place], [place] | | | | | | [address] | | | | | | [phone] | | | +--------+ + + + [...] | | | | | | [place] [address] | | +--------+ + + + + documented as of this encounter Visit Diagnoses Not on filedocumented in this encounter"
--- OUTSIDE RECORDS SUMMARY | ~2019-08-23 | XMS | Encounter Summary ---
Demographics + + + | Address | [address] | | | [place] [address] | + + + | Home Phone | | + + + | Preferred Language | Unknown | + + + | Marital Status | Single | + + + | Mormonism Affiliation | MORMON | + + + | Race | White | + + + | Ethnic Group | Not or | + + + Author + + + | Author | [facility] | + + + | Organization | [facility] | + + + | Address | Unknown | + + + | Phone | Unavailable | + + + Support + + +---------+ + | Name | Relationship | Address | Phone | + + +---------+ + | Theodore Marquez | ECON | Unknown | | + + +---------+ + Care Team Providers + +------+ + | Care Workforce Development Specialist Name | Role | Phone | + +------+ + | Jose Hameed MD | PCP | | + +------+ + Encounter Details +--------+ + + + + | Date | Type | Department | Care Team | Description | +--------+ + + + + | 10/28/ | Telephone | Neurology at | Christian Maldonado MD | | | 2017 | | [place] [facility] & | [address] | | | | | Healing [address] | [address] [place], | | | | | [place] Mailcode: [address] | [place] [address] | | | | | [facility] | [phone] | | | | | and Healing, | | | | | | | | | | | | [place], [place] | | | | | | [address] | | | | | | [phone] | | | +--------+ + + + [...] | | | | | | [place] [address] | | +--------+ + + + + documented as of this encounter Visit Diagnoses Not on filedocumented in this encounter"
--- OUTSIDE RECORDS SUMMARY | ~2019-08-23 | XMS | Encounter Summary ---
Demographics + + + | Address | [address] | | | [place] [address] | + + + | Home Phone | | + + + | Preferred Language | Unknown | + + + | Marital Status | | + + + | Christian Affiliation | Unknown | + + + | Race | Unknown | + + + | Ethnic Group | Unknown | + + + Author + + + | Author | [facility] | | | and [place]aden[place] | + + + | Organization | [facility] | | | and [place] | [...] | | | | | [place] [address] | | + + + + + Care Team Providers + +------+ + | Care Surveyor Instrument Assistant Name | Role | Phone | + +------+ + | Lexie Cagle | PCP | | | PATTERN CHAIN MAKER SUPERVISOR | | | + +------+ + Reason for Visit +--------+ + | Reason | Comments | +--------+ + | Other | | +--------+ + Encounter Details +--------+ + + + + | Date | Type | Department | Care Team | Description | +--------+ + + + + | 11/23/ | Telephone | [facility] | Lexie Cagle | Other | | 2019 | | MEDICINE [address] | [address] | | | | | [address] | [facility] | | | | | [place] [address] | [place] [address] | | | | | [phone] | [phone] | | | | | | | [...] 2020 | Visit | | [address] | | | | | | [place] | | | | | | [address] | | | | | | | | +--------+---------+ + + + documented as of this encounter Visit Diagnoses Not on filedocumented in this encounter"
--- OUTSIDE RECORDS SUMMARY | ~2019-08-23 | XMS | Encounter Summary ---
Demographics + + + | Address | [address] | | | [place] [address] | + + + | Home Phone | | + + + | Preferred Language | Unknown | + + + | Marital Status | Single | + + + | Caodaism Affiliation | TEMPLE | + + + | Race | White | + + + | Ethnic Group | Not or | + + + Author + + + | Author | [facility] | + + + | Organization | [facility] | + + + | Address | Unknown | + + + | Phone | Unavailable | + + + Support + + +---------+ + | Name | Relationship | Address | Phone | + + +---------+ + | Theodore Marquez | ECON | Unknown | | + + +---------+ + Care Team Providers + +------+ + | Care Provider Scribe Name | Role | Phone | + +------+ + | Trevni Delacruz MD | PCP | | + +------+ + Reason for Visit + + + | Reason | Comments | + + + | Return Patient | | + + + Encounter Details +--------+---------+ + + + | Date | Type | Department | Care Team | Description | +--------+---------+ + + + | 05/06/ | Office | Neurology at | Christian Maldonado MD | Multiple sclerosis | | 2016 | Visit | [facility] & | [address] | ([facility]) (Primary Dx); | | | | Healing [address] | [address] [place], | Major depressive | | | | Ave Mailcode: [address] | [place] [address] | disorder, recurrent | | | | [facility] | [phone] | episode, in partial | | | | and Healing, | | remission (HCC) | | | | [address], | | | | | | [facility], [place] | | | | | | [address] | | | | | | [phone] | | | +--------+---------+ + + + [...] + + + | Blood Pressure | 135/80 | 05/06/2015 9:02 AM | | | | | PST | | + + + + + | Pulse | 81 | 05/06/2015 9:02 AM | | | | | PST | | + + + + + | Temperature | - | - | | + + + + + | Respiratory Rate | - | - | | + + + + + | Oxygen Saturation | - | - | | + + + + + | Inhaled Oxygen | - | - | | | Concentration | | | | + + + + + | Weight | 89.4 kg (197 lb) | 05/06/2015 9:02 AM | | | | | PST | | + + + + + | Height | - | - | | + + + + + | Body Mass Index | 29.09 | 04/06/2015 12:11 PM | | | | | PST | | + + + + + documented in this encounter Patient Instructions Patient Instructions Christian Maldonado MD - 05/06/2015 9:25 AM PSTStop Copaxone Continue follow up with psychiatry. documented in this encounter Progress Notes Christian Maldonado MD - 05/06/2015 9:11 AM PST [facility] Medical Problems 1. Multiple sclerosis Avonex 4815-3617 (treatment for 2 years) Rebif for 2.5 years; discontinued for disease activity Tysabri 2004- 2008; discontinued for positive SARAH virus Ab Tecfidera for a couple months; discontinued secondary to side effects Copaxone since 2013 2. Hx of B12 deficiency 3. Neurogenic Bladder 4. GERD 5. Hx of Benito-en-Y for morbid obesity 6. Depression 7. S/P lumbar surgery for radiculopathy. 8. Chronic back pain with placement of spinal stimulator INTERVAL HISTORY: Mr. Marquez [facility] for follow up. Since his last visit he has had increased difficulties with depression. He reports Abilify has been added to his regimen with some i mprovement. He reports he did have discussion about possible ECT but this has not been done . He feels he has not noted any response to Copaxone noting he did best on Tysabri but that this was stopped due to his SARAH virus Ab status. I did discuss ocrelizumab with him and he would be interested in considering this medication in the future. He did bring additional medical records and MRI reports to clinic today which were reviewed . Current ongoing complaints are continued cognitive difficulties (reports he had neuropsych testing a couple years ago), right-sided weakness, neurogenic bladder currently requiring tr eatment with Botox injections, fatigue, GERD, chronic pain with spinal cord stimulator place ment and depression. REVIEW OF SYSTEMS: He reports ongoing difficulties with his depression and fatigue. Review of systems is otherwise negative. 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 ROS otherwise unre markable except for symptoms noted in history. PAST MEDICAL HISTORY: Significant for a knee surgery in 1968. He underwent gallbladder surg deanne in 1978 which was complicated by left DVT and pulmonary embolism which resulted in hospi talization for 45 days during which time he was treated with Coumadin. He underwent vein str ipping of his left leg in 1993. He reports he has rather prominent depression and had admitt ed himself for psychiatric here on two occasions. His first hospitalization was for two to t hree weeks in 1994 and his second one 1995. He has had psychiatric problems on and often for the past thirty-plus years and receiving various forms of medical therapy. Spinal cord sti mulator x 3 months. Bariatric surgery 2001 with Benito-en-Y, and lap band placed 4 years ago, Hx of sleep apnea on CPAP. Past Medical History Diagnosis Date MS (multiple sclerosis) ([facility]) gait/ cognition issues Back pain s/p surgery Obesity Restless legs Low ferritin iron infusions in past CHRISTEN on CPAP Urinary retention self caths GERD (gastroesophageal reflux disease) severe 07/2014 Depressive disorder, not elsewhere classified Other and unspecified symptoms and signs involving general sensations and perceptions Current Outpatient Prescriptions Medication Sig ARIPiprazole 5 [...] No current facility-administered medications for this visit. Allergies: Latex; Adhesive tape; and Sulfa (sulfonamide antibiotics) Family History: His mother at the age of 65 of lung cancer. He reports that she may h ave carried the diagnosis of multiple sclerosis, although he was not aware of any neurologic problems she may have had. His father age 91 after a GLF, had prostate cancer. He has two brothers, one aged 60 with heart disease secondary to rheumatic fever. His other brother is 58 and alive and well. He has one daughter aged 27, has obesity. Physical Examination: Vital Signs: BP 135/80 | Pulse 81 | Wt 89.359 kg (197 lb) | BMI 29.08 kg/(m^2) General: He is no apparent physical stress. He has no speech or language problems. Cardiac: Regular rate and rhythm. Lungs: Clear. Skin: Normal. Neurologic: Mental status: Patient is oriented and alert. He reports his mood has impro clint since he started Abilify. (last psych visit his [place] depression inventory was 38) Crani al Nerve 2: Pupils are equally reactive to light. Visual hebert are intact. Cranial nerves 3 , 4, and 6: Extraocular muscles are normal. Cranial nerve 5: Sensation is intact to V1 throu gh V3. Cranial nerve 7: Face is symmetric. Cranial nerve 10: Normal palate movement. Cranial nerve 12: Normal tongue movement. Motor examination: he has 5/5 strength throughout L UE an d LE. He has 4-4+/5 strength throughout the Right UE and LE. Tone is mildly increased R. Reflexes are 3 symmetrically throughout. Sensory exam is intact throughout to light touch al though decreased stronger on the left, proprio. Vibratory sensation in decrease distally, m ild at fingertips, and moderate left ankle. He has more impairment vib in R LE. Cerebellar testing shows slowed hirdoa-ig-lmdr and L hufw-ra-gmoj. He has difficulty with R heel-to-s hin. Gait: Walks 25 feet in 5.66 sec without aid. He has a normal casual gait. He is able to tandem but requires wall touches. He has a negative Romberg. Vitamin D level 07/2014: 17.2 Impression: 1. Multiple sclerosis 2. Depression. 3. Hx Benito-en-Y with hx of B12 deficiency. 4. Vitamin D deficiency. Mian is a 64 y.o. male with longstanding MS currently on Copaxone. He continues to deal w ith his depression. Feels Abilify has been helpful. He does not feel that Copaxone has bee n helpful for his MS. Discussed options for staying on versus stopping Copaxone and expecta tions of treatment. He wishes to discontinue medication at this time, however, he will cont act us for new symptoms. He will continue nutritional supplements. Plan: 1. RTC in 4 months. 2. Patient will stop Copaxone. I spent 25 minutes with the patient with >50% counseling on MS treatment and symptoms manag jonna. documented in this enco unter Plan of Treatment +--------+ + + + + | Date | Type | Specialty | Care Team | Description | +--------+ + + + + | 10/31/ | Appointment | Hematology & | Onc, Gen [address] | | | 2020 | | Oncology | [place], | | | | | | [place] [address] | | +--------+ + + + + documented as of this encounter Visit Diagnoses + + | Diagnosis | + + | Multiple sclerosis (HCC) - Primary Multiple sclerosis | + + | Major depressive disorder, recurrent episode, in partial remission (HCC) Major | | depressive disorder, recurrent episode, in partial or unspecified remission | + + documented in this encounter"
--- OUTSIDE RECORDS SUMMARY | ~2019-08-23 | XMS | Encounter Summary ---
Demographics + + + | Address | [address] | | | [place] [address] | + + + | Home Phone | | + + + | Preferred Language | Unknown | + + + | Marital Status | | + + + | Congregational Affiliation | Unknown | + + + | Race | Unknown | + + + | Ethnic Group | Unknown | + + + Author + + + | Author | [facility] | | | and [place] | + + + | Organization | [facility] | | | and [...] | | | | | [place] [address] | | + + + + + Care Team Providers + +------+ + | Care Jet Operator Name | Role | Phone | + +------+ + | Lexie Cagle | PCP | | | POTABLE WATER TREATMENT OPERATOR | | | + +------+ + Reason for Visit + + + | Reason | Comments | + + + | Surgery Appointment | | + + + Encounter Details +--------+ + + + + | Date | Type | Department | Care Team | Description | +--------+ + + + + | 06/13/ | Telephone | [facility] | Michael Fernandes | Surgery Appointment | | 2019 | | [address] | MD [address] | | | | | [place] | [place] | | | | | [address] | [address] | | | | | [phone] | | | +--------+ + + + [...] 2019 | Visit | | [address] | | | | | | [place] | | | | | | [id number] | | | | | | | | +--------+---------+ + + + documented as of this encounter Visit Diagnoses Not on filedocumented in this encounter"
--- OUTSIDE RECORDS SUMMARY | ~2019-08-23 | XMS | Encounter Summary ---
Demographics + + + | Address | [address] | | | [place] [address] | + + + | Home Phone | | + + + | Preferred Language | Unknown | + + + | Marital Status | Single | + + + | Hindu Affiliation | JEHOVAH'S WITNESS | + + + | Race | White | + + + | Ethnic Group | Not or | + + + Author + + + | Author | [facility] | + + + | Organization | [facility] | + + + | Address | Unknown | + + + | Phone | Unavailable | + + + Support + + +---------+ + | Name | Relationship | Address | Phone | + + +---------+ + | Theodore Marquez | ECON | Unknown | | + + +---------+ + Care Team Providers + +------+ + | Care Digital Retoucher Name | Role | Phone | + +------+ + | Trevin Delacruz MD | PCP | | + +------+ + Encounter Details +--------+------+ + + + | Date | Type | Department | Care Team | Description | +--------+------+ + + + | 02/03/ | Lab | Laboratory at [facility] | | Other and | | 2014 | | [address] | | unspecified general | | | | [place], [place] | | psychiatric | | | | [address] | | examination; MS | | | | [phone] | | (multiple sclerosis) | | | | | | ([facility]); History of | | | | | | Benito-en-Y gastric | | | | | | bypass | +--------+------+ + + + Social History + +-------+ [...] | | | | | | [place] [address] | | +--------+ + + + + documented as of this encounter Procedures + +--------+ + + + | Procedure Name | Priori | Date/Time | Associated Diagnosis | Comments | | | ty | | | | + +--------+ + + + | STRATIFY SARAH VIRUS | Routin | 02/03/2015 | MS (multiple | Results for this | | ANTIBODY W/ REFLEX | e | 3:49 PM | sclerosis) (HCC) | procedure are in the | | TO INHIBITION ASSAY, | | PST | | results section. | | SERUM | | | | | + +--------+ + + + | VITAMIN B1, WHOLE | Routin | 02/03/2015 | History of | Results for this | | BLOOD | e | 3:49 PM | Benito-en-Y gastric | procedure are in the | | | | PST | bypass | results section. | + +--------+ + + + | VITAMIN D, | Routin | 02/03/2015 | MS (multiple | Results for this | | 25-HYDROXY, SERUM | e | 3:49 PM | sclerosis) (HCC) | procedure are in the | | | | PST | History of Benito-en-Y | results section. | | | | | gastric bypass | | + +--------+ + + + | LIVER SET | Routin | 02/03/2015 | Other and | Results for this | | (AST,ALT,BILI | e | 3:49 PM | unspecified general | procedure are in the | | TOTAL,BILI | | PST | psychiatric | results section. | | DIRECT,ALK | | | examination | | | PHOS,ALB,PROT TOTAL) | | | | | + +--------+ + + + | LIPID SET (TRIG, T | Routin | 02/03/2015 | Other and | Results for this | | CHOL, HDL, CALC LDL) | e | 3:49 PM | unspecified general | procedure are in the | | | | PST | psychiatric | results section. | | | | | examination | | + +--------+ + + + | GLUCOSE, PLASMA | Routin | 02/03/2015 | Other and | Results for this | | | e | 3:49 PM | unspecified general | procedure are in the | | | | PST | psychiatric | results section. | | | | | examination | | + +--------+ + + + documented in this encounter Results VITAMIN B1, WHOLE BLOOD (02/03/2015 3:49 PM PST) + + + + + + | Component | Value | Ref Range | Performed | Pathologist | | | | | At | Signature | + + + + + + | VITAMIN B1, | 84Comment: INTERPRETIVE | 70 - 180 nmol/L | [facility] | | | WHOLE | INFORMATION: Vitamin B1, | | REG UNIV | | | BLOOD | Whole Blood This assay | | PTH - [facility] | | | | measures the | | | | | | concentration of | | | | | | thiamine diphosphate | | | | | | (TDP), the primary | | | | | | active form of vitamin | | | | | | B1. Approximately 90 | | | | | | percent of vitamin B1 | | | | | | present in whole blood | | | | | | is TDP. Thiamine and | | | | | | thiamine monophosphate, | | | | | | which comprise the | | | | | | remaining 10 percent, | | | | | | are not measured. Test | | | | | | developed and | | | | | | characteristics | | | | | | determined by [facility] | | | | | | Laboratories. See | | | | | | Compliance Statement B: | | | | | | [employer]ave[employer]/CSPerformed | | | | | | by [employer] [place],[address] | | | | | | [address] | | | | | | [phone] | | | | | | [phone].[employer]. | | | | | | com, Quoc Harris, | | | | | | MD Lab. Director | | | | + + + + + + + + | Specimen | + + | Blood - Blood | + + + + + + + | Performing | Address | City/State/Zipcode | Phone Number | | Organization | | | | + + + + + | [facility] | [address] | [place], [place] | | | UNIV PTH [facility] | | [id number] | | + + + + + VITAMIN D, 25-HYDROXY, SERUM (02/03/2015 3:49 PM PST) + + + + + + | Component | Value | Ref Range | Performed | Pathologist | | | | | At | Signature | + + + + + + | VITAMIN D | 14.1 (L) | 30 - 80 ng/mL | [facility] | | | 25 HYDROXY | | | LABORATORY | | | | | | SERVICES, | | | | | | SPECIAL IMM | | | | | | + COAG | | + + + + + + + + | Specimen | + + | Blood - Blood | | (substance) | + + + + + | Narrative | Performed At | + + + | REFERENCE INTERVAL: Vitamin D, 25-Hydroxy 0-17years: | [facility] | | Deficiency: less than 20 ng/mL Optimum level: | LABORATORY | | greater than or equal to 20 ng/mL* | SERVICES, | | *(Alejo CL et al. Pediatrics 2008; 122:1128-38.) 18 | SPECIAL IMM + | | years and older: Deficiency: less than 20 | COAG | | ng/mL Insufficiency: 20-29 ng/mL | | | Optimum Level: 30-80 ng/mL High: | | | 81-150 ng/ml Toxic: Greater than | | | 150 ng/mL This assay accurately quantifies the sum of Vitamin D3 | | | 25-hydroxy and Vitamin D2, 25-hydroxy. Reference range | | | change effective 10/18/2012. | | + + + + + + + + | Performing | Address | City/State/Zipcode | Phone Number | | Organization | | | | + + + + + | [facility] | [address] | [place] [address] | | | SERVICES, SPECIAL | [address] | | | | IMM + COAG | | | | + + + + + SARAH VIRUS ANTIBODY W/ REFLEX TO INHIBITION ASSAY, SERUM (02/03/2015 3:49 PM PST) + + + + + + | Component | Value | Ref Range | Performed | Pathologist | | | | | At | Signature | + + + + + + | STRATIFY | Please see scanned | | [facility] | | | JCV | report for result. | | REFERENCE | | | ANTIBODY | | | LAB | | | ASSAY | | | | | + + + + + + + + | Specimen | + + | Blood - Blood | + + + + + | Narrative | Performed At | + + + | Test performed | [facility] | | by: [employer] | REFERENCE LAB | | [address] [place] [address] | | |[place] [address] | | + + + + + + + + | Performing | Address | City/State/Zipcode | Phone Number | | Organization | | | | + + + + + | [facility] | | | | + + + + + | [facility] | see below | | | + + + + + GLUCOSE, PLASMA (02/03/2015 3:49 PM PST) + +--------+ + + + | Component | Value | Ref Range | Performed | Pathologist | | | | | At | Signature | + +--------+ + + + | GLUCOSE, | 55 (L) | 60 - 99 mg/dL | [facility] | | | PLASMA | | | LABORATORY | | | (LAB) | | | SERVICES, | | | | | | CORE | | + +--------+ + + + + + | Specimen | + + | Blood - Blood | | (substance) | + + + + + + + | Performing | Address | City/State/Zipcode | Phone Number | | Organization | | | | + + + + + | [facility] | [address] | [place] [address] | | | SERVICES, CORE | [address] | | | + + + + + LIVER SET (AST,ALT,BILI TOTAL,BILI DIRECT,ALK PHOS,ALB,PROT TOTAL) (02/03/2015 3:49 PM PST ) + +---------+ + + + | Component | Value | Ref Range | Performed | Pathologist | | | | | At | Signature | + +---------+ + + + | ALBUMIN, | 4.0 | 3.5 - 4.7 g/dL | [facility] | | | PLASMA | | | LABORATORY | | | (LAB) | | | SERVICES, | | | | | | CORE | | + +---------+ + + + | BILIRUBIN | 0.6 | 0.3 - 1.2 mg/dL | [facility] | | | TOTAL | | | LABORATORY | | | | | | SERVICES, | | | | | | CORE | | + +---------+ + + + | BILIRUBIN | <0.1 | 0.0 - 0.3 mg/dL | [facility] | | | DIRECT | | | LABORATORY | | | | | | SERVICES, | | | | | | CORE | | + +---------+ + + + | ALK PHOS | 73 | 56 - 119 U/L | [facility] | | | | | | LABORATORY | | | | | | SERVICES, | | | | | | CORE | | + +---------+ + + + | AST(SGOT) | 30 | <=41 U/L | [facility] | | | | | | LABORATORY | | | | | | SERVICES, | | | | | | CORE | | + +---------+ + + + | ALT (SGPT) | 20 | <=60 U/L | [facility] | | | | | | LABORATORY | | | | | | SERVICES, | | | | | | CORE | | + +---------+ + + + | TOTAL | 7.4 | 6.4 - 8.2 g/dL | [facility] | | | PROTEIN, | | | LABORATORY | | | PLASMA | | | SERVICES, | | | (LAB) | | | CORE | | + +---------+ + + + | AST CMNT | Sl Hemo | | [facility] | | | | | | LABORATORY | | | | | | SERVICES, | | | | | | CORE | | + +---------+ + + + + + | Specimen | + + | Blood - Blood | | (substance) | + + + + + | Narrative | Performed At | + + + | Sample hemolyzed. Results for K, Total Bili, Direct Bili, AST, | [facility] | | LDH, or HDL may be inaccurate. Refer to comment under test result. | LABORATORY | | | KAREN RODRIGUEZ | + + + + + + + + | Performing | Address | City/State/Zipcode | Phone Number | | Organization | | | | + + + + + | [facility] | [address] | [place] [address] | | | KAREN RODRIGUEZ | [address] | | | + + + + + LIPID SET (TRIG, T CHOL, HDL, CALC LDL) (02/03/2015 3:49 PM PST) + +---------+ + + + | Component | Value | Ref Range | Performed | Pathologist | | | | | At | Signature | + +---------+ + + + | CHOLESTEROL | 171 | <200 mg/dL | [facility] | | | (LAB) | | | LABORATORY | | | | | | SERVICES, | | | | | | CORE | | + +---------+ + + + | TRIGLYCERID | 72 | <150 mg/dL | [facility] | | | ES | | | LABORATORY | | | | | | SERVICES, | | | | | | CORE | | + +---------+ + + + | HDL | 65 | >40 mg/dL | [facility] | | | CHOLESTEROL | | | LABORATORY | | | | | | SERVICES, | | | | | | CORE | | + +---------+ + + + | HDL CMNT | No Hemo | | [facility] | | | | | | LABORATORY | | | | | | SERVICES, | | | | | | CORE | | + +---------+ + + + | LDL | 92 | <100 mg/dL | [facility] | | | CHOLESTEROL | | | LABORATORY | | | , | | | SERVICES, | | | CALCULATED | | | CORE | | + +---------+ + + + | VLDL | 14 | <31 mg/dL | [facility] | | | CHOLESTEROL | | | LABORATORY | | | , | | | SERVICES, | | | CALCULATED | | | CORE | | + +---------+ + + + | NON-HDL | 106 | <130 mg/dL | [facility] | | | CHOLESTEROL | | | LABORATORY | | | | | | SERVICES, | | | | | | CORE | | + +---------+ + + + + + | Specimen | + + | Blood - Blood | | (substance) | + + + + + | Narrative | Performed At | + + + | Cholesterol Reference Range: Desirable: <200 | [facility] | | mg/dL Borderline High: 200 - 239 mg/dL | LABORATORY | | High: >=240 mg/dL LDL Cholesterol | SERVICES, CORE | | Reference Range: Optimal: <100 mg/dL | | | Near Optimal: 100-129 mg/dL Borderline High: 130-159 | | | mg/dL High: 160-189 mg/dL | | | Very High: >=190 mg/dL non-HDL Cholesterol Reference Range: | | | Optimal: <130 mg/dL Near Optimal: | | | 130-159 mg/dL Borderline High: 160-189 mg/dL | | | High: 190-209 mg/dL Very High: | | | >=210 mg/dL Triglyceride Reference Range: | | | Normal: <150 mg/dL Borderline High: 150-199 mg/dL | | | High: 200-499 mg/dL Very High: >=500 mg/dL | | | HDL Reference Range: High Risk: <40 mg/dL | | | Desirable: >=60 mg/dL | | + + + + + + + + | Performing | Address | City/State/Zipcode | Phone Number | | Organization | | | | + + + + + | [facility] | [address] | [place] [address] | | | SERVICES, CORE | [address] | | | + + + + + documented in this encounter Visit Diagnoses + + | Diagnosis | + + | Other and unspecified general psychiatric examination | + + | MS (multiple sclerosis) (HCC) Multiple sclerosis | + + | History of Benito-en-Y gastric bypass Bariatric surgery status | + + documented in this encounter"
--- OUTSIDE RECORDS SUMMARY | ~2019-08-23 | XMS | Encounter Summary ---
Demographics + + + | Address | [address] | | | [place] [address] | + + + | Home Phone | | + + + | Preferred Language | Unknown | + + + | Marital Status | Single | + + + | Zoroastrian Affiliation | SABIANISM | + + + | Race | White | + + + | Ethnic Group | Not or | + + + Author + + + | Author | [facility] | + + + | Organization | [facility] | + + + | Address | Unknown | + + + | Phone | Unavailable | + + + Support + + +---------+ + | Name | Relationship | Address | Phone | + + +---------+ + | Theodore Marquez | ECON | Unknown | | + + +---------+ + Care Team Providers + +------+ + | Care Flat Optical Element Maker Name | Role | Phone | + +------+ + | Trevin Delacruz MD | PCP | | + +------+ + Reason for Referral PROC - Dept/Practice Procedure (Routine) +--------+--------+ + + + + | Status | Reason | Specialty | Diagnoses / | Referred By | Referred To | | | | | Procedures | Contact | Contact | +--------+--------+ + + + + | Closed | | Gastroenterol | Diagnoses | Mattar, | [facility] | | | | ogy | | Emilie Noguera MD | [address] | | | | | Gastroesopha | [address] | | | | | geal reflux | [address] | Mailcode: | | | | | disease | [place], [place] | [address] | | | | | without | [address] | for Health | | | | | esophagitis | | and Healing, | | | | | Procedures | | [address] | | | | | CONSULT TO | | [place], [place] | | | | | GI PROCEDURE | | [id number] | | | | | UNIT: EGD | | Phone: | | | | | CONSULT TO | | [phone] | | | | | GI PROCEDURE | | Fax: | | | | | UNIT: [address] | | [phone] | | | | | PH [facility] | | | | | | | UPPER GI | | | | | | | ENDOSCOPY,BI | | | | | | | OPSY [facility] | | | | | | | G-ESOPH | | | | | | | REFLX TST | | | | | | | W/ELECTROD | | | +--------+--------+ + + + + Consultation (Routine) + +--------+ + + + + | Status | Reason | Specialty | Diagnoses / | Referred By | Referred To | | | | | Procedures | Contact | Contact | + +--------+ + + + + | Canceled | | Gastroenterol | Diagnoses | [place], | [facility] | | | | ogy | | Eusebio Milan MD | [address] [address] | | | | | Gastroesopha | [address] | | | | | geal reflux | Nate | Erwin | | | | | disease | Eduarda James | [address] | | | | | without | [place], [place] | floor | | | | | esophagitis | [address] | [place], [place] | | | | | Procedures | Phone: | [phone] | | | | | CONSULT TO | [phone] | Phone: | | | | | GI PROCEDURE | Fax: | [phone] | | | | | UNIT: [address] | [phone] | Fax: | | | | | PH | | [phone] | + +--------+ + + + + Reason for Visit + + + | Reason | Comments | + + + | Consultation | | + + + Encounter Details +--------+---------+ + + + | Date | Type | Department | Care Team | Description | +--------+---------+ + + + | 09/25/ | Office | Digestive Health | Mattar, Samer G, | Gastroesophageal | | 2014 | Visit | Center at [facility] [address] | MD | reflux disease | | | | [address] | | without esophagitis | | | | Mailcode: Center | | (Primary Dx) | | | | for Health and | | | | | | Healing, [address] | | | | | | [place], [place] | | | | | | [address] | | | | | | [phone] | | | +--------+---------+ + + + [...] + + + | Blood Pressure | 152/96 | 09/25/2014 9:07 AM | Second BP reading | | | | PDT | was 145/93 | + + + + + | Pulse | 62 | 09/25/2014 9:07 AM | | | | | PDT | | + + + + + | Temperature | 36.7 C (98.1 F) | 09/25/2014 9:07 AM | | | | | PDT | | + + + + + | Respiratory Rate | 16 | 09/25/2014 9:07 AM | | | | | PDT | | + + + + + | Oxygen Saturation | 98% | 09/25/2014 9:07 AM | | | | | PDT | | + + + + + | Inhaled Oxygen | - | - | | | Concentration | | | | + + + + + | Weight | 90.7 kg (200 lb) | 09/25/2014 9:07 AM | | | | | PDT | | + + + + + | Height | 177.8 cm (5' 10") | 09/25/2014 9:07 AM | | | | | PDT | | + + + + + | Body Mass Index | 28.7 | 09/25/2014 9:07 AM | | | | | PDT | | + + + + + documented in this encounter Progress Notes Eusebio Kumar MD - 09/25/2014 11:35 AM PDTFormatting of this note might be different fro m the original. BARIATRIC SURGERY OFFICE VISIT DATE OF VISIT: 09/25/2014 REASON FOR VISIT: GERD HISTORY: Mian Marquez has a history of Benito en y Gastric Bypass at [facility] in 2006, moved to [place] and had a lap band laced for weight gain in 2011 (AP Standard). He's had pain at his port site and some issues vomiting. The vomiting is mostly with certai n fatty foods like fatty meats. He has gastric reflux symptoms of burning in his throat that is worse at night. He states that his symptoms persist even with Nexium 20mg BID. He has a history of non compliance and describes over eating at times which makes his vomiting and GE RD worse. He had an EGD on 08/21/14 that did not show erosive esophagitis but did show a larg e retained fundus. The band was in place. UGI at that time showed esophageal dysmotility wit h the band in proper place and near continuous spontaneous reflux. It was suggested at that time that he have some fluid removed from his band but he refused for fear of weight gain. Review of Systems Constitutional: Positive for malaise/fatigue. Negative for fever and chills. HENT: Negative for congestion and sore throat. Respiratory: Negative for cough, hemoptysis and wheezing. Cardiovascular: Negative for chest pain and palpitations. Gastrointestinal: Positive for heartburn and vomiting. Negative for diarrhea and constipati on. Skin: Negative for itching and rash. Neurological: Negative for focal weakness and seizures. Psychiatric/Behavioral: Positive for depression. The patient is nervous/anxious. All other systems reviewed and are negative. Past Medical History Diagnosis Date MS (multiple sclerosis) gait/ cognition issues Back pain s/p surgery Obesity Restless legs Low ferritin iron infusions in past CHRISTEN on CPAP Urinary retention self caths GERD (gastroesophageal reflux disease) severe 07/2014 Past Surgical History Procedure Laterality Date Lap-band insertion 2011 AP standard/ in [place] Benito-en-y gastric bypass 2006 [facility]/ [facility] Back surgery lumbar Cholecystectomy History Substance Use Topics Smoking status: Never Smoker Smokeless tobacco: Never Used Alcohol Use: No Social History Narrative None on file Current outpatient prescriptions:Calcium Citrate-Vitamin D3 (CITRACAL + D PETITES) 200 mg c alcium -250 unit oral tablet, Take 2 tablets by mouth three times daily., Disp: 180 tablet, Rfl: 2 cholecalciferol, Vitamin D3, (VITAMIN D3) 2,000 unit oral capsule, Take 1 capsule by mouth once daily., Disp: 30 capsule, Rfl: 2 cyanocobalamin 1,000 mcg/mL injection solution, Inject into the muscle (IM)., Disp: , Rfl: diphenhydrAMINE HCl 25 mg oral tablet, Take by mouth., Disp: , Rfl: docusate sodium 100 mg oral capsule, Take by mouth., Disp: , Rfl: DULoxetine 30 mg oral capsule,delayed release(DR/EC), Take 3 capsules by mouth once daily. Indications: MAJOR DEPRESSIVE DISORDER, Disp: 90 capsule, Rfl: 1 DULoxetine 30 mg oral capsule,delayed release(DR/EC), Take 3 capsules by mouth once daily f or 15 days. Indications: MAJOR DEPRESSIVE DISORDER, Disp: 42 capsule, Rfl: 0 [START ON 10/09/2014] DULoxetine 60 mg oral capsule,delayed release(DR/EC), Take 2 capsules by mouth once daily. Indications: MAJOR DEPRESSIVE DISORDER, Disp: 60 capsule, Rfl: 0 ECONAZOLE 1 % topical cream, , Disp: , Rfl: ergocalciferol (VITAMIN D2) 50,000 unit oral capsule, Take 1 capsule by mouth every seven d ays., Disp: 12 capsule, Rfl: 0 gabapentin 400 mg oral capsule, Take 2 capsules by mouth two times daily., Disp: 120 capsul e, Rfl: 1 HYDROcodone-acetaminophen 5-325 mg oral tablet, Take by mouth., Disp: , Rfl: linaclotide (LINZESS) 290 mcg oral capsule, Take by mouth., Disp: , Rfl: NaCl 0.9 % solp 500 mL with iron dextran 100 mg/2 mL (50 mg/mL) soln, Inject into the vein (IV) once. Every 2 months, Disp: , Rfl: NITROFURANTOIN MONOHYDRATE/MACROCRYSTAL 100 mg oral capsule, , Disp: , Rfl: omeprazole 20 mg oral capsule,delayed release(DR/EC), Take 1 capsule by mouth two times sylvia ly. Open capsule and sprinkle on food, Disp: 60 capsule, Rfl: 5 ONABOTULINUMTOXINA (BOTOX INJ), by injection route as needed (neurogenic bladder)., Disp: , Rfl: OXYBUTYNIN 5 mg oral tablet, , Disp: , Rfl: oxyCODONE, immediate release, 5 mg oral tablet, Take by mouth., Disp: , Rfl: rOPINIRole 2 mg oral tablet, Take by mouth., Disp: , Rfl: senna (SENNA LAX) 8.6 mg oral tablet, Take by mouth., Disp: , Rfl: traZODone 50 mg oral tablet, Take 1-2 tablets by mouth once daily at bedtime as needed., Di sp: 60 tablet, Rfl: 1 VESICARE 5 mg oral tablet, , Disp: , Rfl: PHYSICAL EXAMINATION: BP 152/96[Second BP reading was 145/93[ | Pulse 62 | Temp (Src) 36.7 C (98.1 F) (Oral) | RR 16 | Ht 1.778 m (5' 10") | Wt 90.719 kg (200 lb) | SpO2 98% | BMI 28.7 kg/(m^2) GENERAL: In no apparent distress, alert. HEENT: Grossly within normal limits. NECK: Supple, full range of motion. SKIN: No visible rashes. CHEST: Respirations even and unlabored. CARDIOVASCULAR: Extremities warm and well perfused. ABDOMEN: soft, non distended. Mild tenderness in LRQ. His port was easily felt in the RUQ. GROINS/: Deferred. EXTREMITIES: No edema, normal range of motion. NEUROLOGIC: Moves all extremities spontaneously. No apparent neurologic deficits. Cranial nerves 2-12 grossly intact. Gait symmetric and age appropriate. IMPRESSION: Mian Marquez has a history of Benito en y Gastric Bypass at [facility] in 2005, moved to [place] and had a lap band laced for weight gain in 2011 (AP Standard). He has presi stent GERD symptoms that have not improved with PPI therapy and he does not give a clear his tory actual acid reflux. PLAN: Will get Harris 48hr pH monitoring and have him return for follow up in the next 4-6weeks to discuss results and potential options for management. He could possibly benefit from deflat ing the band for a period of time or surgically removal, both of which the pt would rather a void to prevent weight gain. Emilie Medellin MD - 09/25/2014 10:56 AM PDTI saw and evaluated the patient and agree with the findings and plan as documented in the resident s note. I spent 20 minutes with the patient of which >50% of this time was in counseling and coordination of care. We discussed his ongoing "GERD" t hat is refractory to omeprazole therapy. He denies any dysphagia. He is adamant against empt dioni or indeed removing his gastric band (placed on top of bypass) at this point. I am proce eding with Harris placement to determine if he truly has GERD. EMILIE OTERO MD CHIEF, BARIATRIC SERVICES [facility] 6TH FLOOR [address] Mailcode: [place] [address] usebio Kumar MD - 09/25/2014 10:00 AM PDT documented in this en counter Plan of Treatment +--------+ + + + + | Date | Type | Specialty | Care Team | Description | +--------+ + + + + | 10/31/ | Appointment | Hematology & | Onc, Gen [address] | | | 2020 | | Oncology | [address] [place], | | | | | | [place] [address] | | +--------+ + + + + documented as of this encounter Visit Diagnoses + + | Diagnosis | + + | Gastroesophageal reflux disease without esophagitis - Primary Esophageal reflux | + + documented in this encounter
--- OUTSIDE RECORDS SUMMARY | ~2019-08-23 | XMS | Encounter Summary ---
Demographics + + + | Address | [address] | | | [place] [address] | + + + | Home Phone | | + + + | Preferred Language | Unknown | + + + | Marital Status | Single | + + + | Yarsanism Affiliation | EVANGELICAL | + + + | Race | [...] Team Providers + +------+ + | Care Accounting Associate Name | Role | Phone | + +------+ + | Trevin Delacruz MD | PCP | | + +------+ + Reason for Visit + + + | Reason | Comments | + + + | Visual field testing | | + + + Encounter Details +--------+ + + + + | Date | Type | Department | Care Team | Description | +--------+ + + + + | 05/01/ | Procedure | [facility] | | Visual field testing | | 2014 | | [place] [facility] | | | | | | [place] at [facility] [address] | | | | [address] | | | | | | Mailcode: [id number] | | | | | | [facility] | | | | | | roni [place], | | | | | | | | | | | | [place], [place] | | | | | | [address] | | | | | | [phone] | | | +--------+ + + + [...] + documented as of this encounter Progress Lucina Mchugh - 05/01/2014 10:04 AM PST Mian Marquez was seen in the [facility] [place] [facility] [place] today, 05/01/2014, for HVF 24-2 OU. documented in this encounter Plan of Treatment +--------+ + + + + | Date | Type | Specialty | Care Team | Description | +--------+ + + + + | 10/31/ | Appointment | Hematology & | Onc, Gen [address] | | | 2020 | | Oncology | [address] [place], | | | | | | [place] [address] | | +--------+ + + + + + + +--------+ + + | Name | Type | Priori | Associated Diagnoses | Order Schedule | | | | ty | | | + + +--------+ + + | [facility] | Procedures | Routin | Visual field | Expected: 10/19/2014 | | FIELD | | e | defect, unspecified | | + + +--------+ + + documented as of this encounter Visit Diagnoses + + | Diagnosis | + + | Visual field defect, unspecified - Primary | + + documented in this encounter"
--- OUTSIDE RECORDS SUMMARY | ~2019-08-23 | XMS | Encounter Summary ---
Demographics + + + | Address | [address] | | | [place] [address] | + + + | Home Phone | | + + + | Preferred Language | Unknown | + + + | Marital Status | Single | + + + | Sikh Affiliation | PENTECOSTALISM | + + + | Race | White | + + + | Ethnic Group | Not or | + + + Author + + + | Author | [facility] | + + + | Organization | [facility] | + + + | Address | Unknown | + + + | Phone | Unavailable | + + + Support + + +---------+ + | Name | Relationship | Address | Phone | + + +---------+ + | Theodore Marquez | ECON | Unknown | | + + +---------+ + Care Team Providers + +------+ + | Care Longwall Shearer Operator Name | Role | Phone | + +------+ + | Jose Hameed MD | PCP | | + +------+ + Reason for Visit + + + | Reason | Comments | + + + | Immunotherapy | Ocrevus | + + + Other (Routine) +--------+--------+ + + + + | Status | Reason | Specialty | Diagnoses / | Referred By | Referred To | | | | | Procedures | Contact | Contact | +--------+--------+ + + + + | Closed | | Hematology & | Diagnoses | | Hem | | | | Oncology | Multiple | [place], | Treatment | | | | | sclerosis | MD Patrick | [address] | | | | | Procedures | [address] | for Health | | | | | [place] | Ave | and Healing | | | | | UNCLASSIFIED | [place], [place] | [address] | | | | | [place] | [address] | Ave | | | | | BIOLOGICALS | Phone: | [place], [place] | | | | | [place] | [phone] | [address] | | | | | THR/PRPH/DX | Fax: | Phone: | | | | | IV INF,IN | [phone] | [phone] | | | | | [place] | | Fax: | | | | | THER/PROPH/D | | [phone] | | | | | IAG IV | | | +--------+--------+ + + + + Encounter Details +--------+ + + + + | Date | Type | Department | Care Team | Description | +--------+ + + + + | 11/17/ | Hospital | [facility] | Nurse2, Hem [address] | | | 2017 | Encounter | Clinics at S | [address] | | | | | [facility] | [place] [address] | | | | | for Health and | Chr9, Hem [address] | | | | | Healing [address] | [address] [place], | | | | | Ave [place], [place] | [place] [address] | | | | | [address] | | | | | | [phone] | | | +--------+ + + + [...] + + + | Blood Pressure | 148/88 | 11/17/2016 1:50 PM | | | | | PDT | | + + + + + | Pulse | 76 | 11/17/2016 1:50 PM | | | | | PDT | | + + + + + | Temperature | 36.9 C (98.5 F) | 11/17/2016 1:50 PM | | | | | PDT | | + + + + + | Respiratory Rate | 16 | 11/17/2016 1:50 PM | | | | | PDT | | + + + + + | Oxygen Saturation | 100% | 11/17/2016 8:25 AM | | | | | PDT | | + + + + + | Inhaled Oxygen | - | - | | | Concentration | | | | + + + + + | Weight | 93.4 kg (205 lb 12.8 | 11/17/2016 8:25 AM | | | | oz) | PDT | | + + + + + | Height | - | - | | + + + + + | Body Mass Index | 29.53 | 10/31/2016 3:28 PM | | | | | PDT | | + + + + + documented in this encounter Medications at Time of Discharge + + + +---------+ + + | Medication | Sig | Dispensed | Refills | Start | End Date | | | | | | Date | | + + + +---------+ + + | Cholecalciferol, | Take 5,000 Units by | | 0 | | | | Vitamin D3, (VITAMIN | mouth once daily. | | | | | | D3) 5,000 unit oral | | | | | | | tablet | | | | | | + + + +---------+ + + | cyanocobalamin | Inject into the | | 0 | 12/24/19 | | | 1,000 mcg/mL | muscle (IM). | | | 14 | | | injection solution | | | | | | + + + +---------+ + + | iron sucrose 100 | Every other month | | 0 | 11/13/19 | | | mg iron/5 mL | | | | 15 | | | intravenous solution | | | | | | + + + +---------+ + + | NaCl 0.9 % solp | Inject into the | | 0 | | | | 500 mL with iron | vein (IV) once. | | | | | | dextran 100 mg/2 mL | Every 2 months | | | | | | (50 mg/mL) soln | | | | | | + + + +---------+ + + | oxyCODONE, | Take 5 mg by mouth | | 0 | | | | immediate release, 5 | every six hours as | | | | | | mg oral tablet | needed. | | | | | + + + +---------+ + + | rOPINIRole 2 mg | Take 2 mg by mouth | | 0 | 01/17/20 | | | oral tablet | once daily in the | | | 14 | | | | evening. | | | | | + + + +---------+ + + documented as of this encounter Progress Notes Mary Carmen Clifton RN - 11/17/2016 7:45 AM PDTPt here for first infusion of Ocrevus. PIV place d and brisk blood return obtained. Pt reports having had a new spinal stimulator placed yest brent. Pt reorts site pain but denies needing anything for pain at this time. Pt reports bas nicole right sided weakness and unsteady gait. Pt ambulates independantly with a cane. Pt rep orts also having some cognitive deficits. Pt reports neurogenic bladder problems as well. P remeds given as ordered.Pt given Claritin instead of Benadryl as he is driving. Pt tolerated infusion well. BP elevated slightly but pt reports that he is having pain from his surgery yesterday. Pt denies wanting anything for pain at this time. Pt states that he will take madonna cotic when he gets home. PIV dc'd intact. Pt discharged home ambulatory.Electronically ulysses d by Mary Carmen Clifton RN at 11/17/2016 1:53 PM PDTdocumented in this encounter Plan of Treatment +--------+ + + + + | Date | Type | Specialty | Care Team | Description | +--------+ + + + + | 10/31/ | Appointment | Hematology & | Onc, Gen [address] | | | 2020 | | Oncology | [place], | | | | | | [place] [address] | | +--------+ + + + + documented as of this encounter Visit Diagnoses + + | Diagnosis | + + | Multiple sclerosis (HCC) Multiple sclerosis | + + documented in this encounter Administered Medications + +--------+ +--------+------+------+ | Medication Order | MAR | Action | Dose | Rate | Site | | | Action | Date | | | | + +--------+ +--------+------+------+ | acetaminophen (TYLENOL) tablet | Given | 11/18/19 | 650 mg | | | | 650 mg 650 mg, oral, ONCE, | | 17 9:14 | | | | | dose, [facility] 11/17/16 at 0915 | | AM PDT | | | | + +--------+ +--------+------+------+ +---+---+ | | | +---+---+ + +-------+ +-------+---+---+ | loratadine (CLARITIN) tablet 10 | Given | 11/18/19 | 10 mg | | | | mg 10 mg, oral, NEEDED, | | 17 9:14 | | | | | dose, Starting Mon11/17/16 at | | AM PDT | | | | | 0904, Until Mon11/17/16 at 0914, | | | | | | | Give instead of diphenhydrAMINE | | | | | | | if patient does not have a skidder driver | | | | | | + +-------+ +-------+---+---+ +---+---+ | | | +---+---+ + +-------+ +--------+---+---+ | methylPREDNISolone sod succ | Given | 11/18/19 | 100 mg | | | | (PF) (SOLU-MEDROL) injection 100 | | 17 9:15 | | | | | mg 100 mg, intravenous, ONCE, 1 | | AM PDT | | | | | dose, Jemma 11/17/16 at 0915 | | | | | | + +-------+ +--------+---+---+ +---+---+ | | | +---+---+ + +---------+ +--------+ +---+ | ocrelizumab (OCREVUS) 300 mg in | New Bag | 11/18/19 | 300 mg | 30 mL/hr | | | NaCl 0.9 % IV 300 mg, | | 17 9:59 | | | | | intravenous, ONCE, 1 dose, Jemma | | AM PDT | | | | | 11/17/16 at 0915 | | | | | | + +---------+ +--------+ +---+ +---+---+ | | | +---+---+ documented in this encounter"
--- OUTSIDE RECORDS SUMMARY | ~2019-08-23 | XMS | Encounter Summary ---
Demographics + + + | Address | [address] | | | [place] [address] | + + + | Home Phone | | + + + | Preferred Language | Unknown | + + + | Marital Status | Single | + + + | Mu-Ism Affiliation | YAZIDISM | + + + | Race | [...] Team Providers + +------+ + | Care Press Operator Assistant Name | Role | Phone | + +------+ + | Rudolph Lee MD | PCP | | + +------+ + Encounter Details +--------+ + + + + | Date | Type | Department | Care Team | Description | +--------+ + + + + | 08/02/ | Office | | Note, Outpatient | [...] as of this encounter Progress Notes Interface, Banquet Manager In - 10/14/2005 3:12 AM PDTCLINIC DATE: 08/02/2002 [facility] PHONE CONSULTATION SUBJECTIVE: Mr. Marquez is a 51-year-old gentleman who had a gastric bypass approximately 5 months ago. He had called Shelly Hamilton, the Registered Dietitian in the outpatient setting regarding difficulty with eating, an aversion to multiple foods, and fears with eating. When I talked with him, he had described multiple foods that he could not eat including chicken and tuna related to retching with these food substances. In addition, besides requesting a Psychology referral, the patient noted multiple mental and physical issues surrounding his multiple sclerosis and changes with cognitive thinking and concerns with multiple medications that he is on. MEDICATIONS: His medications include Ritalin twice a day, Flexeril, and the patient is also having problems with sleep. He notes some multiple other medications that we do not review at this time. He did state that he has not given his multiple sclerosis subcu injections for 3 weeks because he is totally disgusted with the total picture of his health at this time. The local support group is not meeting his needs as he would like additional time to discuss personal problems or to have a [employer] system to call some one when the support group is not meeting. ASSESSMENT: A 51-year-old gentleman who is status post Benito-en-Y gastric bypass with an aversion to the foods, 110 pound weight loss with initial weight of 355 pounds in January 2002, history of multiple sclerosis, and prior psychology assessment that listed diagnoses of generalized anxiety disorder, dependent personality trait, and multiple sclerosis. The conclusion of the report said that the patient may be particularly sensitive to pressure and demands and may frequently vacillate between being agreeable, solemn, self-pitying, as well as passive-aggressive. They noted irritable testing maneuvers that would exasperate and/or alienate those potentially on whom he depends. The patient is receiving multiple medications and notes that he may need a psychiatrist in order to sort out multiple pharmacy products. PLAN: He will contact his primary care physician to request his Psychology evaluation since there [place] [address] [address] in [place], phone number #[phone] on August 12, 2002. The patient will seek further resources as needed. He will call if any other further questions. Virginia Welch M.D. VJ / HS [id number] / [id number] / [id number] / [id number] cc: Shelly Hamilton R.D. Outpatient [facility] Colin Posada M.D. General Surgery documented in this encounter Plan of Treatment +--------+ + + + + | Date | Type | Specialty | Care Team | Description | +--------+ + + + + | 10/31/ | Appointment | Hematology & | Onc, Gen [address] | | | 2020 | | Oncology | [place], | | | | | | [place] [address] | | +--------+ + + + + documented as of this encounter Visit Diagnoses Not on filedocumented in this encounter"
--- OUTSIDE RECORDS SUMMARY | ~2019-08-23 | XMS | Encounter Summary ---
Demographics + + + | Address | [address] | | | [place] [address] | + + + | Home Phone | | + + + | Preferred Language | Unknown | + + + | Marital Status | Single | + + + | Gnosticist Affiliation | ADVENTIST | + + + | Race | White | + + + | Ethnic Group | Not or | + + + Author + + + | Author | [facility] | + + + | Organization | [facility] | + + + | Address | Unknown | + + + | Phone | Unavailable | + + + Support + + +---------+ + | Name | Relationship | Address | Phone | + + +---------+ + | Theodore Marquez | ECON | Unknown | | + + +---------+ + Care Team Providers + +------+ + | Care It Help Desk Manager Name | Role | Phone | + +------+ + | Jose Hameed MD | PCP | | + +------+ + Encounter Details +--------+ + + + + | Date | Type | Department | Care Team | Description | +--------+ + + + + | 11/07/ | Telephone | [facility] | Emilie Sanchez, | | | 2014 | | [facility] [address] | | | | | | [place] Mailcode: | | | | | | [address] [facility] | | | | | | Health and Healing, | | | | | | [address] | | | | | | [place], [place] | | | | | | [address] | | | | | | [phone] | | | +--------+ + + + [...] | | | | | | [place] [address] | | +--------+ + + + + documented as of this encounter Visit Diagnoses Not on filedocumented in this encounter"
--- OUTSIDE RECORDS SUMMARY | ~2019-08-23 | XMS | Encounter Summary ---
Demographics + + + | Address | [address] | | | [place] [address] | + + + | Home Phone | | + + + | Preferred Language | Unknown | + + + | Marital Status | | + + + | Buddhism Affiliation | Unknown | + + + | Race | Unknown | + + + | Ethnic Group | Unknown | + + + Author + + + | Author | [facility] | | | and Jadenana | + + + | Organization | [facility] | | | and Jadenana | [...] | | | | | [place] [address] | | + + + + + Care Team Providers + +------+ + | Care Special Collections Librarian Name | Role | Phone | + +------+ + | Lexie Cagle | PCP | | | [employer] | | | + +------+ + Reason for Visit Auth/Cert +--------+--------+ + + + + | Status | Reason | Specialty | Diagnoses / | Referred By | Referred To | | | | | Procedures | Contact | Contact | +--------+--------+ + + + + | | | | Diagnoses | | Dom, | | | | | Right | | Michael Tidwell, | | | | | nephrolithia | | [address] | | | | | sis Right | | [address] [place] | | | | | flank pain | | [place], [place] | | | | | Procedures | | [address] Phone: | | | | | [place] | | [phone] | | | | | CYSTO/URETER | | Fax: | | | | | O | | [phone] | | | | | W/LITHOTRIPS | | | | | | | Y &BETH | | | | | | | STENT INSRT | | | | | | | CYSTOSCOPY | | | | | | | Right | | | | | | | URETEROSCOPY | | | | | | | W/ LASER | | | | | | | lithotripsy | | | | | | | and stent | | | +--------+--------+ + + + + Encounter Details +--------+---------+ + + + | Date | Type | Department | Care Team | Description | +--------+---------+ + + + | 01/03/ | Surgery | [facility] | Michael Fernandes | CYSTOSCOPY Right | | 2019 | | [facility] | MD Yaw [address] | URETEROSCOPY W/ | | | | [address] | [address] [place], [place] | LASER lithotripsy | | | | [place], [place] | [address] | and stent | | | | [address] | | | | | | [phone] | | | +--------+---------+ + + + [...] + + + | Blood Pressure | 104/67 | 01/03/2019 11:30 AM | | | | | PDT | | + + + + + | Pulse | 110 | 01/03/2019 11:30 AM | | | | | PDT | | + + + + + | Temperature | 36.3 C (97.3 F) | 01/03/2019 9:01 AM | | | | | PDT | | + + + + + | Respiratory Rate | 16 | 01/03/2019 10:45 AM | | | | | PDT | | + + + + + | Oxygen Saturation | 96% | 01/03/2019 11:30 AM | | | | | PDT | | + + + + + | Inhaled Oxygen | - | - | | | Concentration | | | | + + + + + | Weight | 92.9 kg (204 lb 12.9 | 01/03/2019 6:41 AM | | | | oz) | PDT | | + + + + + | Height | 177.8 cm (5' 10") | 01/03/2019 6:41 AM | | | | | PDT | | + + + + + | Body Mass Index | 29.39 | 01/03/2019 6:41 AM | | | | | PDT | | + + + + + documented in this encounter Discharge Instructions Instructions Kristi Veloz RN - 01/03/2019 Recovery After Procedural Sedation (Adult) You have been given medicine by vein to make you sleep during your procedure. This may have included both a pain medicine and sleeping medicine. Most of the effects have worn off. But you may still have some drowsiness for the next 6 to 8 hours. Home care Follow these guidelines when you get home: For the next 8 hours, you should be watched by a responsible adult. This person should m jamila sure your condition is not getting worse. Don't drink any alcoholfor the next [address], operate dangerous machinery,make important business or personal decisions , or sign legal documentsduring the next 24 hours. Note: Your healthcare provider may tell you not to take any medicine by mouth for pain or s leep in the next 4 hours. These medicines may react with the medicines you were given in the hospital. This could cause a much stronger response than usual. Follow-up care Follow up with your healthcare provider if you are not alert and back to your usual level o f activity within 12 hours. When to seek medical advice Call your healthcare provider right away if any of these occur: Drowsiness gets worse Weakness or dizziness gets worse Repeated vomiting You can't be awakened Date Last Reviewed: 01/12/[id number] [employer]. [address] [place] [address], [place] [address]. All righ ts reserved. This information is not intended as a substitute for professional medical care. Always follow your healthcare professional's instructions. Follow-up in the office in 7 days for cystoscopy and stent removal. documented in this encounter Medications at Time of Discharge + + + +---------+ + + | Medication | Sig | Dispensed | Refills | Start | End Date | | | | | | Date | | + + + +---------+ + + | Blood Glucose | 1 kit by Does not | 1 each | 0 | 12/01/19 | | | Monitoring Suppl | apply route Daily. | | | 19 | | | KITIndications: | Daily and as needed | | | | | | Hypoglycemia | as directed by | | | | | | | provider | | | | | + + + +---------+ + + | cholecalciferol | Take 2,000 Units by | | 0 | | | | (VITAMIN D3) 50 mcg | mouth. | | | | | | (2,000 units) | | | | | | | capsule | | | | | | + + + +---------+ + + | UNKNOWN TO PATIENT | Inject into the | | 0 | | | | | vein. Infusion for | | | | | | | MS Twice a year | | | | | | | (patient doesn't | | | | | | | know name) | | | | | + + + +---------+ + + | amantadine | Take 100 mg by mouth | | 0 | 07/26/19 | | | (SYMMETREL) 100 mg | as needed. | | | 19 | 9 | | capsule | | | | | | + + + +---------+ + + | DULoxetine | Take 60 mg by mouth | | 0 | 12/18/19 | | | (CYMBALTA) [address] | nightly. | | | 19 | 0 | | capsule | | | | | | + + + +---------+ + + | gabapentin | Take 300 mg by mouth | | 0 | | | | (NEURONTIN) 300 mg | nightly as needed. | | | | 9 | | capsule | | | | | | + + + +---------+ + + | | Take 1-2 tablets by | 25 | 0 | 01/04/20 | | | HYDROcodone-acetamin | mouth every 4 hours | tablet | | 19 | 9 | | ophen (NORCO) 5-325 | as needed for Pain. | | | | | | mg per tablet | | | | | | + + + +---------+ + + | | Take 1-2 tablets by | 21 | 0 | 12/15/19 | | | HYDROcodone-acetamin | mouth every 6 hours | tablet | | 19 | 9 | | ophen (NORCO) 5-325 | as needed for Pain | | | | | | mg per | (severe back pain). | | | | | | tabletIndications: | | | | | | | Acute right-sided | | | | | | | low back pain | | | | | | | without sciatica | | | | | | + + + +---------+ + + | Iron Sucrose | Inject into the | | 0 | | | | (VENOFER IV) | vein Every 3 months. | | | | 0 | + + + +---------+ + + | oxybutynin | Take 1 tablet by | 60 | 3 | 10/31/19 | | | (DITROPAN-XL) 10 MG | mouth 2 times daily. | tablet | | 19 | 0 | | 24 hr tablet | | | | | | + + + +---------+ + + | oxyCODONE | Take 1 tablet by | 20 | 0 | 12/21/19 | | | (ROXICODONE) 5 mg | mouth every 8 hours | tablet | | 19 | 9 | | tablet | as needed for Pain. | | | | | + + + +---------+ + + | rOPINIRole | Take 1 tablet by | 90 | 1 | 06/02/19 | | | (REQUIP) 2 MG | mouth nightly. | tablet | | 19 | 9 | | tabletIndications: | | | | | | | RLS (restless legs | | | | | | | syndrome) | | | | | | + + + +---------+ + + | traZODone | Take 1 tablet by | 30 | 0 | 06/02/19 | | | (DESYREL) 100 mg | mouth nightly. | tablet | | 19 | 0 | | tabletIndications: | | | | | | | Anxiety associated | | | | | | | with depression | | | | | | + + + +---------+ + + | warfarin | 1 tab by mouth every | 30 | 1 | 11/15/19 | | | (COUMADIN) 5 mg | evening, or as | tablet | | 19 | 9 | | tabletIndications: | directed by provider | | | | | | Paroxysmal atrial | | | | | | | fibrillation (HCC), | | | | | | | Deep vein thrombosis | | | | | | | (DVT) of proximal | | | | | | | vein of right lower | | | | | | | extremity, | | | | | | | unspecified | | | | | | | chronicity (HCC) | | | | | | + + + +---------+ + + documented as of this encounter Plan of Treatment +--------+---------+ + + + | Date | Type | Specialty | Care Team | Description | +--------+---------+ + + + | 11/12/ | Office | Sleep Medicine | Laith Sheffield PA | | | 2020 | Visit | | [address] | | | | | | [place] | | | | | | [id number] | | | | | | | | +--------+---------+ + + + documented as of this encounter Procedures + +--------+ + + + | Procedure Name | Priori | Date/Time | Associated Diagnosis | Comments | | | ty | | | | + +--------+ + + + | FL PYELOGRAM | Routin | 01/03/2019 | | Results for this | | RETROGRADE | e | 9:07 AM | | procedure are in the | | | | PDT | | results section. | + +--------+ + + + | CYSTOSCOPY | | 01/03/2019 | Right | | | URETEROSCOPY W/ | | 7:42 AM | nephrolithiasis | | | LASER | | PDT | Right flank pain | | + +--------+ + + + | POCT FINGERSTICK INR | Routin | 01/03/2019 | | Results for this | | | e | 7:32 AM | | procedure are in the | | | | PDT | | results section. | + +--------+ + + + | ECG - EXTERNAL SCAN | | 12/21/2018 | | Results for this | | | | 12:00 AM | | procedure are in the | | | | PDT | | results section. | + +--------+ + + + documented in this encounter Results FL Pyelogram Retrograde (01/03/2019 9:07 AM PDT) + + | Specimen | + + | | + + + + + | Narrative | Performed At | + + + | This exam has been auto-finalized and the interpretation may exist | [facility] | | elsewhere in the chart. | | + + + + +---------+ + + | Performing | Address | City/State/Zipcode | Phone Number | | Organization | | | | + +---------+ + + | [facility] | | | | + +---------+ + + POC Fingerstick INR (01/03/2019 7:32 AM PDT) + +---------+ + + + | Component | Value | Ref Range | Performed | Pathologist | | | | | At | Signature | + +---------+ + + + | INR, POC | 1.3 (A) | 0.9 - 1.2 | [facility] | | | | | [facility] | | | | | | [facility] | | | | | | [facility] | | + +---------+ + + + | Instrument | [id number] | | [facility] | | | ID | | | [facility] | | | | | | [facility] | | | | | | LABORATORY | | + +---------+ + + + + + | Specimen | + + | Blood | + + + + + + + | Performing | Address | City/State/Zipcode | Phone Number | | Organization | | | | + + + + + | [facility] | [address] | [place] [address] | [phone] | | [facility] | | | | | [facility]ORAT[facility] | | | | + + + + + ECG - EXTERNAL SCAN (12/21/2018 12:00 AM PDT) + + + | Narrative | Performed At | + + + | Ordered by an | | | unspecified provider. | | + + + documented in this encounter Visit Diagnoses + + | Diagnosis | + + | Right nephrolithiasis | + + | Right flank pain Abdominal pain, unspecified site | + + documented in this encounter Admitting Diagnoses + + | Diagnosis | + + | Right nephrolithiasis | + + | Right flank pain Abdominal pain, unspecified site | + + documented in this encounter Administered Medications + +--------+---------+------+------+------+ | Medication Order | MAR | Action | Dose | Rate | Site | | | Action | Date | | | | + +--------+---------+------+------+------+ + +---+ | acetaminophen (TYLENOL) tablet | | | 1,000 mg 1,000 mg, Oral, EVERY 8 | | | HOURS (3 times per day), First | | | dose on Jemma 01/03/19 at 1400, | | | Start 8 hours after pre-op dose., | | | Post-op/Phase II | | + +---+ | | | + +---+ | albuterol 2.5 mg/3 mL nebulizer | | | solution 2.5 mg 2.5 mg, | | | Nebulization, ONCE PRN, Wheezing, | | | Starting Jemma 01/03/19 at 0859, | | | For 1 dose, Notify anesthesia if | | | patient is wheezing and does not | | | have a history of asthma or COPD | | | or current smoking., | | | Recovery/Phase I | | + +---+ | | | + +---+ | albuterol-ipratropium 2.5-0.5 | | | mg/3 mL nebulizer solution 3 mL | | | 3 mL, Nebulization, ONCE PRN, | | | Wheezing, Starting Jemma 01/03/19 | | | at 0655, For 1 dose, Pre-op | | + +---+ | | | + +---+ | dextrose 50% injection 12.5-25 | | | g 12.5-25 g, Intravenous, EVERY | | | 15 MIN PRN, Low Blood Sugar, Give | | | 12.5g (25 mL) IV if blood | | | glucose 50-69 mg/dL. Give 25g | | | (50 mL) IV if blood glucose < 50, | | | Starting [facility] 01/03/19 at 0655, | | | Repeat in 15 min if blood glucose | | | remains < 70 mg/dL. Repeat | | | blood glucose in 30 min once | | | blood glucose > 70., Pre-op | | + +---+ | | | + +---+ | dextrose 50% injection 12.5-25 | | | g 12.5-25 g, Intravenous, EVERY | | | 15 MIN PRN, Low Blood Sugar, For | | | hypoglycemia. Give 12.5g (25ml) | | | IV if blood glucose 50-69 | | | mg/dL. Give 25g (50ml) IV if | | | blood glucose < 50, Starting Jemma | | | 01/03/19 at 0859, Give over 2 | | | min. Repeat in 15 min if blood | | | glucose remains < 70 mg/dL. | | | Repeat blood glucose in 30 min | | | once blood glucose > 70., | | | Recovery/Phase I | | + +---+ | | | + +---+ | ePHEDrine (AKOVAZ) 50 mg/mL | | | injection 5 mg 5 mg, | | | Intravenous, EVERY 5 MIN PRN, if | | | SBP <90., Starting Jemma 01/03/19 | | | at 0859, Hold if HR > 100. | | | Maximum total dose 20mg., | | | Recovery/Phase I | | + +---+ | | | + +---+ + +-------+ +--------+---+---+ | fentaNYL (PF) injection 25-50 | Given | 01/04/20 | 25 mcg | | | | mcg 25-50 mcg, Intravenous, | | 19 9:21 | | | | | EVERY 5 MIN PRN, Pain, Initial | | AM PDT | | | | | postop urgent pain or escalating | | | | | | | pain, Starting Jemma 01/03/19 at | | | | | | | 0859, For 4 doses, Every 5 | | | | | | | minutes PRN for initial postop | | | | | | | urgent pain or escalating pain up | | | | | | | to 2 doses maximum. If patient | | | | | | | meets opioid tolerant definition, | | | | | | | can give up to 4 doses maximum. | | | | | | | First dose must be lowest dose. | | | | | | | Use Pasero Sedation Scale. | | | | | | | [Opioid tolerant = One week or | | | | | | | longer, [id number]-lai-[id number] use of | | | | | | | at least the following DAILY | | | | | | | dose: 60mg oral morphine, 60mg | | | | | | | oral hydrocodone, 30mg oral | | | | | | | oxycodone, 8mg oral | | | | | | | hydromorphone, fentanyl patch | | | | | | | 25mcg/hr, or equivalent dose of | | | | | | | another opioid], Recovery/Phase I | | | | | | + +-------+ +--------+---+---+ + +---+ | | | + +---+ | hydrALAZINE (APRESOLINE) | | | injection 5 mg 5 mg, | | | Intravenous, EVERY 20 MINUTES | | | PRN, For SBP > 180, DBP > 100, | | | Starting Jemma 01/03/19 at 0859, | | | Hold if HR > 100. Maximum total | | | dose 40 mg. Use labetalol first | | | if available., Recovery/Phase I | | + +---+ | | | + +---+ | HYDROmorphone (DILAUDID) | | | injection 0.2-0.4 mg 0.2-0.4 mg, | | | Intravenous, EVERY 1 HOUR PRN, | | | Pain, Starting [facility] 01/03/19 at | | | 1028, If oral route not an | | | option. Slow IV push, not faster | | | than 0.3mg/minute. First dose | | | must be lowest dose, titrate to | | | effective dose by repeat of | | | lowest dose every 30 minutes prn | | | pain, may not exceed maximum dose | | | ordered per interval. Use | | | Pasero Sedation Scale., | | | Post-op/Phase II | | + +---+ | | | + +---+ + +-------+ +--------+---+---+ | HYDROmorphone (DILAUDID) | Given | 01/04/20 | 0.2 mg | | | | injection 0.2-0.6 mg 0.2-0.6 mg, | | 19 9:41 | | | | | Intravenous, EVERY 5 MIN PRN, | | AM PDT | | | | | Pain, Starting Jemma 01/03/19 at | | | | | | | 0859, First dose must be lowest | | | | | | | dose, can increase subsequent | | | | | | | doses by 0.2mg within dosing | | | | | | | range. If patient meets opioid | | | | | | | tolerant definition, can start | | | | | | | with 0.4mg dose. [Maximum total | | | | | | | PACU dose 4mg] Use Pasero | | | | | | | Sedation Scale. [Opioid tolerant | | | | | | | = One week or longer, | | | | | | | yhlquz-ngg-bqwjs use of at least | | | | | | | the following DAILY dose: 60mg | | | | | | | oral morphine, 60mg oral | | | | | | | hydrocodone, 30mg oral oxycodone, | | | | | | | 8mg oral hydromorphone, fentanyl | | | | | | | patch 25mcg/hr, or equivalent | | | | | | | dose of another opioid], | | | | | | | Recovery/Phase I | | | | | | + +-------+ +--------+---+---+ +-------+ +--------+---+---+ | Given | 01/04/20 | 0.2 mg | | | | | 19 9:35 | | | | | | AM PDT | | | | +-------+ +--------+---+---+ | Given | 01/04/20 | 0.2 mg | | | | | 19 12:02 | | | | | | AM PDT | | | | +-------+ +--------+---+---+ + +---+ | | | + +---+ | ibuprofen (ADVIL, MOTRIN) | | | tablet 400 mg 400 mg, Oral, | | | EVERY 8 HOURS (3 times per day), | | | First dose on [facility] 01/03/19 at | | | 1515, If urine output is less | | | than 240ml/8 hours (30ml/hr) or | | | if signs of bleeding, contact MD | | | and hold. Administer with food | | | or snack, Post-op/Phase II | | + +---+ | | | + +---+ + +-------+ +-------+---+---+ | ketorolac (TORADOL) injection | Given | 01/04/20 | 15 mg | | | | 15 mg 15 mg, Intravenous, ONCE, | | 19 10:37 | | | | | [facility] 01/03/19 at 1030, For 1 dose, | | AM PDT | | | | | If urine output is less than | | | | | | | 240ml/8 hours (30ml/hr) or if | | | | | | | signs of bleeding, contact MD and | | | | | | | hold., Post-op/Phase II | | | | | | + +-------+ +-------+---+---+ + +---+ | | | + +---+ | labetalol (TRANDATE) 5 mg/mL | | | injection 5 mg 5 mg, | | | Intravenous, EVERY 5 MIN PRN, For | | | SBP > 180, DBP > 100, Starting | | | [facility] 01/03/19 at 0859, Hold if HR | | | < 60. Notify anesthesia if | | | patient requires more than 50mg., | | | Recovery/Phase I | | + +---+ | | | + +---+ + +---------+ +---+-------+---+ | lactated ringers (LR) infusion | New Bag | 01/04/20 | | 100 | | | at 10-100 mL/hr, Intravenous, | | 19 10:35 | | mL/hr | | | CONTINUOUS, Starting Jemma 01/03/19 | | AM PDT | | | | | at 0715, TKO., Pre-op | | | | | | + +---------+ +---+-------+---+ + + +--------+-------+---+ | Continued by Anesthesia | 01/04/20 | | | | | | 19 7:58 | | | | | | AM PDT | | | | + + +--------+-------+---+ | New Bag | 01/04/20 | 1,000 | 100 | | | | 19 7:41 | mLs | mL/hr | | | | AM PDT | | | | + + +--------+-------+---+ + +---+ | | | + +---+ | ondansetron (ZOFRAN) injection | | | 4 mg 4 mg, Intravenous, ONCE | | | PRN, Nausea, Starting Jemma | | | 01/03/19 at 0859, For 1 dose, | | | Recovery/Phase I | | + +---+ | | | + +---+ + +-------+ +-------+---+---+ | oxyCODONE (ROXICODONE) tablet | Given | 01/04/20 | 10 mg | | | | 2.5-10 mg 2.5-10 mg, Oral, EVERY | | 19 10:53 | | | | | 3 HOURS PRN, Pain, Starting Jemma | | AM PDT | | | | | 01/03/19 at 1028, First dose must | | | | | | | be the lowest dose, can titrate | | | | | | | to effective dose by repeat of | | | | | | | lowest dose every 60 minutes prn | | | | | | | pain, may not exceed maximum dose | | | | | | | ordered per interval. Use Pasero | | | | | | | Sedation Scale., Post-op/Phase | | | | | | | II | | | | | | + +-------+ +-------+---+---+ +---+---+ | | | +---+---+ documented in this encounter
--- OUTSIDE RECORDS SUMMARY | ~2019-08-23 | XMS | Encounter Summary ---
Demographics + + + | Address | [address] | | | [place] [address] | + + + | Home Phone | | + + + | Preferred Language | Unknown | + + + | Marital Status | Single | + + + | Uatsdin Affiliation | JEWISH | + + + | Race | White | + + + | Ethnic Group | Not or | + + + Author + + + | Author | [facility] | + + + | Organization | [facility] | + + + | Address | Unknown | + + + | Phone | Unavailable | + + + Support + + +---------+ + | Name | Relationship | Address | Phone | + + +---------+ + | Theodore Marquez | ECON | Unknown | | + + +---------+ + Care Team Providers + +------+ + | Care Hand Splitter Name | Role | Phone | + +------+ + | Trevin Delacruz MD | PCP | | + +------+ + Encounter Details +--------+ + + + + | Date | Type | Department | Care Team | Description | +--------+ + + + + | 08/22/ | Documentati | [facility] | Emilie Sanchez, | | | 2014 | on | [facility] [address] | | | | | | [address] | | | | | | Mailcode: [place] | | | | | | [facility] | | | | | | [facility], [address] | | | | | | [place], [place] | | | | | | [address] | | | | | | [phone] | | | +--------+ + + + + Social History + +-------+ +--------+------+ | Tobacco Use | Types | Packs/Day | Years | Date | | | | | Used | | + +-------+ +--------+------+ | Never Smoker | | | | | + +-------+ +--------+------+ + + +---------+ + | Alcohol Use [...] | | | | | | [place] [address] | | +--------+ + + + + documented as of this encounter Visit Diagnoses Not on filedocumented in this encounter"
--- OUTSIDE RECORDS SUMMARY | ~2019-08-23 | XMS | Encounter Summary ---
Demographics + + + | Address | [address] | | | [place] [address] | + + + | Home Phone | | + + + | Preferred Language | Unknown | + + + | Marital Status | Single | + + + | Taoist Affiliation | CHEONDOISM | + + + | Race | [...] Team Providers + +------+ + | Care Shallot Packer Name | Role | Phone | + +------+ + | Trevin Delacruz MD | PCP | | + +------+ + Reason for Visit + + + | Reason | Comments | + + + | Follow-up visit | | + + + Encounter Details +--------+---------+ + + + | Date | Type | Department | Care Team | Description | +--------+---------+ + + + | 09/07/ | Office | Neurology at | Christian Maldonado MD | Multiple sclerosis | | 2016 | Visit | [facility] & | [address] | ([facility]) (Primary Dx); | | | | Healing [address] [place], | Vitamin B12 | | | | Ave Mailcode: CH8C | [place] [address] | deficiency; Iron | | | | [facility] | [phone] | deficiency; Vitamin | | | | and Healing, | | D deficiency | | | | Building | | | | | | Floor [place], [place] | | | | | | [address] | | | | | | [phone] | | | +--------+---------+ + + + [...] + + + | Blood Pressure | 142/85 | 09/08/2015 3:53 PM | | | | | PDT | | + + + + + | Pulse | 78 | 09/08/2015 3:53 PM | | | | | PDT | | + + + + + | Temperature | - | - | | + + + + + | Respiratory Rate | 18 | 09/08/2015 3:53 PM | | | | | PDT | | + + + + + | Oxygen Saturation | - | - | | + + + + + | Inhaled Oxygen | - | - | | | Concentration | | | | + + + + + | Weight | 93.4 kg (205 lb 12.8 | 09/08/2015 3:53 PM | | | | oz) | PDT | | + + + + + | Height | - | - | | + + + + + | Body Mass Index | 30.39 | 04/06/2015 12:11 PM | | | | | PST | | + + + + + documented in this encounter Progress Notes Christian Maldonado MD - 09/08/2015 3:57 PM PDT [facility] Medical Problems 1. Multiple sclerosis Avonex [id number] (treatment for 2 years) Rebif for 2.5 [...] of spinal stimulator INTERVAL HISTORY: Mr. Marquez [facility] for follow up. He reports that he continues to have depr ession. He is no longer on Abilify (his insurance does not cover this medication). He will be seeing a new psychiatrist in September. He reports that ECT has been discussed but he is not ready to consider this therapy. He continues to have moderate fatigue symptoms. Reports carolina bello has stopped his Vitamin D although his last level was low. Current ongoing complaints are continued cognitive difficulties (reports he had neuropsych testing a couple years ago), right-sided weakness, neurogenic bladder currently requiring tr eatment with Botox injections, fatigue, GERD, chronic pain with spinal cord stimulator place ment and depression. Current Outpatient Prescriptions Medication Sig cyanocobalamin 1,000 mcg/mL injection solution Inject into the muscle (IM). dextroamphetamine-amphetamine (ADDERALL) 10 mg oral tablet Take 1 tablet by mouth three times daily as needed. Indications: ms associated fatigue iron sucrose 100 mg iron/5 mL intravenous solution Every other month NaCl 0.9 % solp 500 mL with iron dextran 100 mg/2 mL (50 mg/mL) soln Inject into the v ein (IV) once. Every 2 months nitrofurantoin monohydrate/macrocrystal 100 mg oral capsule ONABOTULINUMTOXINA (BOTOX INJ) by injection route as needed (neurogenic bladder). rOPINIRole 1 mg oral tablet Take 1 mg by mouth daily (to total 3 mg a day) rOPINIRole 2 mg oral tablet Take 2 mg by mouth once daily in the evening. traZODone 50 mg oral tablet Take 1-2 tablets by mouth once daily at bedtime as needed. venlafaxine XR 150 mg oral capsule,extended release 24hr Take 1 capsule by mouth once d aily. No current facility-administered medications for this visit. REVIEW OF SYSTEMS: He reports ongoing difficulties [...] ago, Hx of sleep apnea on CPAP. Allergies: Latex; Adhesive tape; and Sulfa (sulfonamide [...] has obesity. Physical Examination: Vital Signs: BP 142/85 | Pulse 78 | RR 18 | Wt 93.35 kg (205 lb 12.8 oz) | BMI 30.38 kg/(m^ 2) General: He is no apparent physical stress. He has no speech or language problems. Cardiac: Regular rate and rhythm. Lungs: Clear. Skin: Normal. Neurologic: Mental status: Patient is oriented and alert. He reports continued mood dif ficulties. Cranial Nerve 2: Pupils are equally reactive to light. Visual hebert are intact. Cranial nerves 3, 4, and 6: Extraocular muscles are normal. Cranial nerve 5: Sensation is i ntact to V1 through V3. Cranial nerve 7: Face is symmetric. Cranial nerve 10: Normal palate movement. Cranial nerve 12: Normal tongue movement. Motor examination: he has 5/5 strength t hroughout L UE and LE. He has 4-4+/5 strength throughout the Right UE and LE. Tone is mild ly increased R. Reflexes are 3 symmetrically throughout. Sensory exam is intact throughout to light touch although decreased stronger in the left leg. Vibratory sensation in decrease distally, mild at fingertips, and left ankle. He has more impairment vib in R LE. Cerebel lar testing shows slowed [id number]-rw-[id number] and L rhfn-zt-dcrc. He has difficulty with R heel-t o-liang. Gait: Walks 25 feet in 6.53 sec without aid. He has a normal casual gait. He is ab le to tandem but requires wall touches. He has a negative Romberg. Vitamin D level 01/2015: 14.1 Impression: 1. Multiple sclerosis 2. Depression. 3. Hx Benito-en-Y with hx of B12 deficiency. 4. Vitamin D deficiency. Mr. Marquez's exam is stable. He does report continued moderate fatigue (perhaps a little w orse) and depression. His psychiatrist has discussed ECT but he is not ready to proceed. I did discus with him the need to resume his Vitamin D as his last level was quite low. He w ill do so. We also discussed daclizumab as well as ocrelizumab today. Should ocrelizumab b e approved he may be a reasonable candidate. Plan: 1. RTC in 6 months. 2. Restart Vitamin D 50,000 units a week. I spent 25 minutes with the patient [...] | | | | | | [place] [address] | | +--------+ + + + + documented as of this encounter Visit Diagnoses + + | Diagnosis | + + | Multiple sclerosis (HCC) - Primary Multiple sclerosis | + + | Vitamin B12 deficiency Other B-complex deficiencies | + + | Iron deficiency Other disorders of iron metabolism | + + | Vitamin D deficiency | + + documented in this encounter"
--- OUTSIDE RECORDS SUMMARY | ~2019-08-23 | XMS | Encounter Summary ---
Demographics + + + | Address | [address] | | | [place] [address] | + + + | Home Phone | | + + + | Preferred Language | Unknown | + + + | Marital Status | Single | + + + | Voodoo Affiliation | TAOISM | + + + | Race | White | + + + | Ethnic Group | Not or | + + + Author + + + | Author | [facility] | + + + | Organization | [facility] | + + + | Address | Unknown | + + + | Phone | Unavailable | + + + Support + + +---------+ + | Name | Relationship | Address | Phone | + + +---------+ + | Theodore Marquez | ECON | Unknown | | + + +---------+ + Care Team Providers + +------+ + | Care Inside Technical Sales Representative Name | Role | Phone | + +------+ + | Jose Hameed MD | PCP | | + +------+ + Encounter Details +--------+ + + + + | Date | Type | Department | Care Team | Description | +--------+ + + + + | 12/06/ | Telephone | Urology at [facility] | Shukri Olivier MD | | | 2017 | | [address] | [address] | | | | | Mailcode: CH10U | [facility] [place] | | | | | [facility] | [address] | | | | | and [place], | [phone] | | | | | | | | | | | Floor [place], [place] | | | | | | [address] | | | | | | [phone] | | | +--------+ + + + [...] | | | | | | [place] [address] | | +--------+ + + + + documented as of this encounter Visit Diagnoses Not on filedocumented in this encounter"
--- OUTSIDE RECORDS SUMMARY | ~2019-08-23 | XMS | Encounter Summary ---
Demographics + + + | Address | [address] | | | [place] [address] | + + + | Home Phone [...] Author | [facility] | | | and Jadenana | + + + | Organization | [facility] | | | and Jadenana [...] | | | | | [place] [address] | | + + + + + Care Team Providers + +------+ + | Care Saturator Name | Role | Phone | + +------+ + | Lexie aCgle | PCP | | | MANAGER CREDIT RISK | | | + +------+ + Reason for Visit Auth/Cert +--------+--------+ + + + + | Status | Reason | Specialty | Diagnoses / | Referred By | Referred To | | | | | Procedures | Contact | Contact | +--------+--------+ + + + + | | | | Diagnoses | | Dom | | | | | Neurogenic | | Michael Tidwell, | | | | | bladder | | MD Padmini ARNOLD | | | | | (N31.9) | | [place] | | | | | Procedures | | [place] | | | | | [place] | | [address] Phone: | | | | | INCISE/DRAIN | | [phone] | | | | | BLADDER | | Fax: | | | | | | | [phone] | +--------+--------+ + + + + Encounter Details +--------+ + + + + | Date | Type | Department | Care Team | Description | +--------+ + + + + | 06/20/ | Hospital | [facility] | Michael Fernandes | Neurogenic bladder; | | 2019 | Encounter | [facility] | MD [address] | Urge incontinence | | | | [address] [place] | | | | | [place] | [address] | | | | | [address] | | | | | | [phone] | | | +--------+ + + + [...] + + + | Blood Pressure | 127/77 | 06/20/2018 10:30 AM | | | | | PDT | | + + + + + | Pulse | 68 | 06/20/2018 10:30 AM | | | | | PDT | | + + + + + | Temperature | 36.2 C (97.2 F) | 06/20/2018 9:48 AM | | | | | PDT | | + + + + + | Respiratory Rate | 14 | 06/20/2018 10:30 AM | | | | | PDT | | + + + + + | Oxygen Saturation | 97% | 06/20/2018 10:30 AM | | | | | PDT | | + + + + + | Inhaled Oxygen | - | - | | | Concentration | | | | + + + + + | Weight | 90.6 kg (199 lb 11.8 | 06/20/2018 7:32 AM | | | | oz) | PDT | | + + + + + | Height | 177.8 cm (5' 10") | 06/20/2018 7:32 AM | | | | | PDT | | + + + + + | Body Mass Index | 28.66 | 06/20/2018 7:32 AM | | | | | PDT | | + + + + + documented in this encounter Discharge Instructions Instructions Ramirez Hirsch RN - 06/20/2018Anil/Ashley in the office July 04July shower tomorrow, replace sterile dressings if needed May use leg bag documented in this encounter Medications at Time of Discharge + + + +---------+ + + | Medication | Sig | Dispensed | Refills | Start | End Date | | | | | | Date | | + + + +---------+ + + | DULoxetine | Take 90 mg by mouth | | 0 | 03/30/19 | | | (CYMBALTA) [address] | Daily. | | | 19 | 9 | | capsule | | | | | | + + + +---------+ + + | Ergocalciferol | daily | | 0 | | | | (VITAMIN D2) 1999 | | | | | 9 | | units TABS | | | | | | + + + +---------+ + + | | Take 1-2 tablets by | 15 | 0 | 06/21/19 | | | HYDROcodone-acetamin | mouth every 4 hours | tablet | | 19 | 9 | | ophen (NORCO) 5-325 | as needed for Pain | | | | | | mg per tablet | for up to 3 days. | | | | | + + + +---------+ + + | oxybutynin | Take 1 tablet by | | 0 | 07/05/19 | | | (DITROPAN) 5 mg | mouth as needed. | | | 15 | 9 | | tablet | | | | | | + + + +---------+ + + | oxyCODONE | Take 5-10 mg by | | 0 | 12/28/19 | | | (ROXICODONE) 5 mg | mouth as needed. | | | 18 | 9 | | tablet | | | | [...] [place] | | | | | | [id number] | | | | | | | | +--------+---------+ + + + documented as of this encounter Procedures + +--------+ + + + | Procedure Name | Priori | Date/Time | Associated Diagnosis | Comments | | | ty | | | | + +--------+ + + + | INSERT SUPRAPUBIC | | 06/20/2018 | Neurogenic bladder | | | CATHETER | | 9:16 AM | (N31.9) | | | | | PDT | | | + +--------+ + + + documented in this encounter Visit Diagnoses + + | Diagnosis | + + | Neurogenic bladder Neurogenic bladder, NOS | + + | Urge incontinence | + + documented in this encounter [...] day), First | | | dose on Mon06/20/18 at 1400, For | | | 3 days, Start 8 hours after | | | pre-op dose., Post-op/Phase II | | + +---+ | | | + +---+ | albuterol 2.5 mg/3 mL nebulizer | | | solution 2.5 mg 2.5 mg, | | | Nebulization, ONCE PRN, Wheezing, | | | Starting Mon06/20/18 at 0942, | | | For 1 dose, Notify anesthesia if | | | patient is wheezing and does not | | | have a history of asthma or COPD | | | or current smoking., | | | Recovery/Phase I | | + +---+ | | | + +---+ | atropine 0.1 mg/mL syringe 0.5 | | | mg 0.5 mg, Intravenous, PRN, | | | Bradycardia, For HR < 40, | | | Starting Mon06/20/18 at 0942, For | | | 2 doses, May repeat one time | | | after 1 min., Recovery/Phase I | | + +---+ | [...] glucose < 50, | | | Starting 06/20/18 at 0842, | | | Repeat in 15 min [...] | | blood glucose < 50, Starting Wed | | | 06/20/18 at 0942, Give over 2 min. | | | Repeat in 15 min if blood | | | glucose remains < 70 mg/dL. | | | Repeat blood glucose in 30 min | | | once blood glucose > 70., | | | Recovery/Phase I | | + +---+ | | | + +---+ | ePHEDrine 50 mg/mL injection 5 | | | mg 5 mg, Intravenous, EVERY 5 | | | MIN PRN, if SBP <90., Starting | | | Mon06/20/18 at 0942, Hold if HR > | | | 100. Maximum total dose 20mg., | | | Recovery/Phase I | | + +---+ | | | + +---+ + +---------+ +-----+-------+---+ | ertapenem (INVanz) 1 g in | New Bag | 06/21/19 | 1 g | 100 | | | sodium chloride 0.9% 50 mL IVPB | | 19 11:20 | | mL/hr | | | 1 g, Intravenous, Administer over | | AM PDT | | | | | 30 Minutes, ONCE, 06/20/18 at | | | | | | | 1130, For 1 dose, Activate | | | | | | | system and mix before use., | | | | | | | Indications: UTI - LOWER | | | | | | + +---------+ +-----+-------+---+ + +---+ | | | + +---+ | fentaNYL (PF) injection 25-50 | | | mcg 25-50 mcg, Intravenous, | | | EVERY 5 MIN PRN, Pain, Starting | | | Mon06/20/18 at 0942, Maximum | | | total dose 250 mcg. PACU IV | | | Narcotic Priority: Only use | | | fentanyl for immediate post-op | | | pain (one dose) or breakthrough | | | pain when any other IV narcotics | | | ordered have been ineffective (if | | | ordered). If both morphine and | | | hydromorphone are ordered, use | | | morphine first, and use | | | hydromorphone if morphine | | | ineffective., Recovery/Phase I | | + +---+ | | | + +---+ | HYDROmorphone (DILAUDID) | | | injection 0.2-0.4 mg 0.2-0.4 mg, | | | Intravenous, EVERY 1 HOUR PRN, | | | Pain, Starting Mon06/20/18 at | | | 0951, If oral route not an | | [...] | HYDROmorphone (DILAUDID) | | | injection 0.2-0.5 mg 0.2-0.5 mg, | | | Intravenous, EVERY 5 MIN PRN, | | | Pain, Starting Mon06/20/18 at | | | 0942, Maximum total dose 4 mg. | | | PACU IV Narcotic Priority: Only | | | use fentanyl for immediate | | | post-op pain (one dose) or | | | breakthrough pain when any other | | | IV narcotics ordered have been | | | ineffective (if ordered). If | | | both morphine and hydromorphone | | | are ordered, use morphine first, | | | and use hydromorphone if morphine | | | ineffective., Recovery/Phase I | | + +---+ | | | + +---+ | ibuprofen (ADVIL, MOTRIN) | | | tablet 400 mg 400 mg, Oral, | | | EVERY 8 HOURS (3 times per day), | | | First dose on Mon06/20/18 at | | | 1615, For 9 doses, If urine | | | output is less than 240ml/8 hours | | | (30ml/hr) or if signs of | | | bleeding, contact MD and hold. | | | Administer with food or snack, | | | Post-op/Phase II | | + +---+ | | | + +---+ + +---------+ +---+---+---+ | lactated ringers (LR) infusion | New Bag | 06/21/19 | | | | | at 10-100 mL/hr, Intravenous, | | 19 9:16 | | | | | CONTINUOUS, Starting Mon06/20/18 | | AM PDT | | | | | at 0900, TKO., Pre-op | | | | | | + +---------+ +---+---+---+ + +---+ | | | + +---+ | ondansetron (ZOFRAN) injection | | | 4 mg 4 mg, Intravenous, ONCE | | | PRN, Nausea, Starting Mon06/20/18 | | | at 0942, For 1 dose, | | | Recovery/Phase I | | + +---+ | | | + +---+ | oxyCODONE (ROXICODONE) tablet | | | 2.5-10 mg 2.5-10 mg, Oral, EVERY | | | 3 HOURS PRN, Pain, Starting Wed | | | 06/20/18 at 0951, First dose must | | | be the lowest dose, can titrate | | | to effective dose by repeat of | | | lowest dose every 60 minutes prn | | | pain, may not exceed maximum dose | | | ordered per interval. Use Pasero | | | Sedation Scale., Post-op/Phase | | | II | | + +---+ | | | + +---+ documented in this encounter
--- OUTSIDE RECORDS SUMMARY | ~2019-08-23 | XMS | Encounter Summary ---
Demographics + + + | Address | [address] | | | [place] [address] | + + + | Home Phone | | + + + | Preferred Language | Unknown | + + + | Marital Status | | + + + | Evangelical Affiliation | Unknown | + + + | Race | Unknown | + + + | Ethnic Group | Unknown | + + + Author + + + | Author | [facility] | | | and Jadenana | + + + | Organization | [facility] | | | and [...] | | | | | [place] [address] | | + + + + + Care Team Providers + +------+ + | Care Enrollment Services Vice President Name | Role | Phone | + +------+ + | Lexie Cagle | PCP | | | STEAM CONDITIONER FILLING | | | + +------+ + Encounter Details +--------+ + + + + | Date | Type | Department | Care Team | Description | +--------+ + + + + | 06/01/ | Hospital | [facility] | Cagle Lexie | Acute pain of left | | 2019 | Encounter | [facility] | Arleen, STEAM CONDITIONER FILLING [address] | knee; Chronic pain | | | | [address] [place] | [address] [place] | of right knee | | | | [place], [place] | [place] [address] | | | | | [address] | [phone] | | | | | [phone] | | | +--------+ + + + [...] + + documented as of this encounter Medications at Time of Discharge + + + +---------+ + + | Medication | Sig | Dispensed | Refills | Start | End Date | | | | | | Date | | + + + +---------+ + + | celecoxib | Take 1 capsule by | 60 | 2 | 06/02/19 | | | (CELEBREX) 100 mg | mouth Twice daily | capsule | | 19 | 9 | | capsuleIndications: | as needed for Pain. | | | | | | Acute pain of left | | | | | | | knee, Chronic pain | | | | | | | of right knee, Left | | | | | | | hand pain | | | | | | + + + +---------+ + + | cyanocobalamin | 1,000 mcg. | | 0 | | | | (VITAMIN B-12) 1,000 | | | | | 9 | | mcg/mL injection | | | | | | + [...] + + + +---------+ + + | OXYBUTYNIN | Take 1 tablet by | | 0 | 07/05/19 | | | CHLORIDE PO | mouth. Patient | | | 15 | 9 | | | taking 15 mg daily | | | | | + + [...] | Visit | | [address] | | | | | | [place] | | | | | | [id number] | | | | | | | | +--------+---------+ + + + documented as of this encounter Procedures + +--------+ + + + | Procedure Name | Priori | Date/Time | Associated Diagnosis | Comments | | | ty | | | | + +--------+ + + + | XR KNEE RIGHT 1 - 2 | Routin | 06/01/2018 | Chronic pain of | Results for this | | VW | e | 3:09 PM | right knee | procedure are in the | | | | PST | | results section. | + +--------+ + + + | XR KNEE LEFT 1 - 2 | Routin | 06/01/2018 | Acute pain of left | Results for this | | VW | e | 3:09 PM | knee | procedure are in the | | | | PST | | results section. | + +--------+ + + + documented in this encounter Results XR Knee Right 1 - 2 Vw (06/01/2018 3:09 PM PST) + + | Specimen | + + | | + + + + + | Narrative | Performed At | + + + | XR KNEE RIGHT 1 - 2 VW 06/01/2018 3:09 PM HISTORY: chronic right | [facility] | | knee pain. COMPARISON: None. FINDINGS: The right knee shows | | | mild lateral compartment joint space loss. There are tiny osteophytes | | | of the lateral and patellofemoral compartments. Bone mineralization | | | is decreased. There is no joint effusion. Chondrocalcinosis is present | | | of the medial and lateral menisci. Mild atherosclerosis is present. | | | The left knee shows peaking tibial spines. Tiny osteophytes are | | | noted of the medial and patellofemoral compartments. Bone | | | mineralization is decreased. There is no joint effusion. Mild | | | atherosclerosis is seen. There is chondrocalcinosis of the medial and | | | lateral menisci. IMPRESSION - Mild degenerative changes of right | | | knee. Minimal degenerative changes of left knee. Dictated and | | | Signed by: Damon Shore MD Electronically signed: 06/01/2018 3:14 | | | PM | | + + + + + | Procedure Note | + + | Meet, Rad Results In - 06/01/2018 3:18 PM PST XR KNEE RIGHT 1 - 2 VW 06/01/2018 3:09 PM | | | | HISTORY: chronic right knee pain. | | | | COMPARISON: None. | | | | FINDINGS: | | The right knee shows mild lateral compartment joint space loss. There are tiny | | osteophytes of the lateral and patellofemoral compartments. Bone mineralization | | is decreased. There is no joint effusion. Chondrocalcinosis is present of the | | medial and lateral menisci. Mild atherosclerosis is present. | | | | The left knee shows peaking tibial spines. Tiny osteophytes are noted of the | | medial and patellofemoral compartments. Bone mineralization is decreased. There | | is no joint effusion. Mild atherosclerosis is seen. There is chondrocalcinosis | | of the medial and lateral menisci. | | | | IMPRESSION - | | Mild degenerative changes of right knee. | | | | Minimal degenerative changes of left knee. | | | | Dictated and Signed by: Damon Shore MD | | Electronically signed: 06/01/2018 3:14 PM | + + + +---------+ + + | Performing | Address | City/State/Zipcode | Phone Number | | Organization | | | | + +---------+ + + | [facility] | | | | + +---------+ + + XR Knee Left 1 - 2 Vw (06/01/2018 3:09 PM PST) + + | Specimen | + + | | + + + + + | Narrative | Performed At | + + + | XR KNEE LEFT 1 - 2 VW 06/01/2018 3:09 PM HISTORY: acute left knee | [facility] | | pain. COMPARISON: None. FINDINGS: The right knee shows mild | | | lateral compartment joint space loss. There are tiny osteophytes of | | | the lateral and patellofemoral compartments. Bone mineralization is | | | decreased. There is no joint effusion. Chondrocalcinosis is present of | | | the medial and lateral menisci. Mild atherosclerosis is present. | | | The left knee shows peaking tibial spines. Tiny osteophytes are noted | | | of the medial and patellofemoral compartments. Bone mineralization | | | is decreased. There is no joint effusion. Mild atherosclerosis is | | | seen. There is chondrocalcinosis of the medial and lateral menisci. | | | IMPRESSION - Mild degenerative changes of right knee. Minimal | | | degenerative changes of left knee. Dictated and Signed by: Damon | | | MD Silviano Electronically signed: 06/01/2018 3:15 PM | | + + + + + | Procedure Note | + + | Meet, Rad Results In - 06/01/2018 3:18 PM PST XR KNEE LEFT 1 - 2 VW 06/01/2018 3:09 PM | | | | HISTORY: acute left knee pain. | | | | COMPARISON: None. | | | | FINDINGS: | | The right knee shows mild lateral compartment joint space loss. There are tiny | | osteophytes of the lateral and patellofemoral compartments. Bone mineralization | | is decreased. There is no joint effusion. Chondrocalcinosis is present of the | | medial and lateral menisci. Mild atherosclerosis is present. | | | | The left knee shows peaking tibial spines. Tiny osteophytes are noted of the | | medial and patellofemoral compartments. Bone mineralization is decreased. There | | is no joint effusion. Mild atherosclerosis is seen. There is chondrocalcinosis | | of the medial and lateral menisci. | | | | IMPRESSION - | | Mild degenerative changes of right knee. | | | | Minimal degenerative changes of left knee. | | | | Dictated and Signed by: Damon Shore MD | | Electronically signed: 06/01/2018 3:15 PM | + + + +---------+ + + | Performing | Address | City/State/Zipcode | Phone Number | | Organization | | | | + +---------+ + + | [facility] | | | | + +---------+ + + documented in this encounter Visit Diagnoses + + | Diagnosis | + + | Acute pain of left knee | + + | Chronic pain of right knee | + + documented in this encounter"
--- OUTSIDE RECORDS SUMMARY | ~2019-08-23 | XMS | Encounter Summary ---
Demographics + + + | Address | [address] | | | [place] [address] | + + + | Home Phone | | + + + | Preferred Language | Unknown | + + + | Marital Status | Single | + + + | Pentecostal Affiliation | WORSHIP | + + + [...] Team Providers + +------+ + | Care Cooler Tender Name | Role | Phone | + +------+ + | Rudolph Lee MD | PCP | | + +------+ + Encounter Details +--------+ + + + + | Date | Type | Department | Care Team | Description | +--------+ + + + + | 03/04/ | Office | | Note, Outpatient | Progress Note | | 2002 | Visit-Trans | | Clinic | | [...] as of this encounter Progress Notes Interface, Fitter Hand In - 10/23/2005 3:09 AM PDTCLINIC DATE: 03/04/2002 [facility] CLINICAL ISSUE: Mr. Marquez is 2 weeks status post laparoscopic Benito-en-Y divided gastric bypass. He is doing very well and is very happy. His weight today is measured at 323 pounds (preop 355) for a weight loss of 32 pounds. He has been eating essentially only liquids. He complains that he has not had a bowel movement in the last 3 days and is having some shooting tingling pain, it is down the right medial aspect of his arm. He also has a lesion on his scrotum which has been bleeding. Other than this, he has been doing well without nausea or vomiting, or other problems. PHYSICAL EXAMINATION ABDOMEN: The exam of his abdomen reveals nicely healing incisions all of which are closed. EXTERNAL GENITALIA: His scrotum has a small 2-mm lesion in the right aspect of it which I think is probably pinched or something during his hospitalization and requires local care. There is no evidence of infection or other problem. EXTREMITIES: Exam of his right arm demonstrates a pattern of high paresthesia along the medial aspect from the midportion of his elbow down to his 4th and 5th digits in the ulnar nerve distribution. He has normal strength with all 5 digits. He says that he has weakness of pinch between his index finger and thumb, but I cannot detect this on physical exam. He has mild swelling in his right wrist also. ASSESSMENT 1. Doing well overall perhaps too rapid a weight loss. 2. Question ulnar nerve injury from positioning in the Operating Room, but he is not disabled by this. 3. Scrotal wound, should heal with local care only, I am not sure about the origin of this. 4. Time to liberalize his diet. PLAN 1. We will follow up in 2 weeks with repeat set of labs. 2. I will follow up at that time and discuss possible ulnar neuropathy as well. The patient may benefit from Neurontin. He has been on this in the past. It is possible that his symptoms are secondary to multiple sclerosis and not because of positioning, and I would want a Neurology Consult if this persists. 3. Milk of magnesia 30 cc twice a day to assist with bowel movements. 4. He needs to meet with Shelly Hamilton our dietitian and I have given him a dietary sheet today and encouraged him to remain on high-protein low-calorie diet emphasizing high-protein foods such as eggs, chicken, well-cooked vegetables, and nutrition shakes 4 to 5 with protein powder. His seems to understand this, I am not sure if he does. We will see him in 2 weeks. Colin oPsada M.D. SHAWN / VICTOR M [id number] / [id number] / [id number] / Tdocumented in this encounter Plan of Treatment +--------+ + + + + | Date | Type | Specialty | Care Team | Description | +--------+ + + + + | 10/31/ | Appointment | Hematology & | Onc, Gen [address] | | | 2020 | | Oncology | [place], | | | | | | [place] [address] | | +--------+ + + + + documented as of this encounter Visit Diagnoses Not on filedocumented in this encounter"
--- OUTSIDE RECORDS SUMMARY | ~2019-08-23 | XMS | Encounter Summary ---
Demographics + + + | Address | [address] | | | [place] [address] | + + + | Home Phone | | + + + | Preferred Language | Unknown | + + + | Marital Status | Single | + + + | Druze Affiliation | HOLINESS | + + + | Race | White | + + + | Ethnic Group | Not or | + + + Author + + + | Author | [facility] | + + + | Organization | [facility] | + + + | Address | Unknown | + + + | Phone | Unavailable | + + + Support + + +---------+ + | Name | Relationship | Address | Phone | + + +---------+ + | Theodore Marquez | ECON | Unknown | | + + +---------+ + Care Team Providers + +------+ + | Care Shade Classifier Name | Role | Phone | + +------+ + | Trevin Delacruz MD | PCP | | + +------+ + Reason for Visit + + + | Reason | Comments | + + + | Medical Eye | | | Examination | | + + + | MS - Multiple | | | sclerosis | | + + + Consultation (Routine) +--------+ + + + + + | Status | Reason | Specialty | Diagnoses / | Referred By | Referred To | | | | | Procedures | Contact | Contact | +--------+ + + + + + | Closed | Specialty | Ophthalmology | Diagnoses | Keiser, | Cei Comp | | | Services | | Multiple | Delilah, | Oph Fac Chh1 | | | Required | | sclerosis | DO [place] | [address] | | | | | (HCC) | [address] [facility] | [address] | | | | | Procedures | [address] | Mailcode: | | | | | CONSULT TO | [address] | [facility] | | | | | OPHTHALMOLOG | [address] | for Health | | | | | Y | [place], [place] | and Healing, | | | | | | [address] | [address], | | | | | | Phone: | 11th Floor | | | | | | [phone] | [place], [place] | | | | | | Fax: | [address] | | | | | | [phone] | Phone: | | | | | | | [phone] | | | | | | | Fax: | | | | | | | [phone] | +--------+ + + + + + Encounter Details +--------+---------+ + + + | Date | Type | Department | Care Team | Description | +--------+---------+ + + + | 04/08/ | Office | [facility] | Thaddeus Romo MD | Multiple sclerosis | | 2015 | Visit | [place]/Ophthalmol | [address] | ([facility]) (Primary Dx); | | | | ogy at [facility] [address] | [place], [place] | Senile nuclear | | | | [address] Mailcode: | [address] | sclerosis, | | | | [facility] | [phone] | bilateral; Color | | | | Health and Healing, | | blindness, | | | | | | congenital | | | | Floor [facility] [place] | | | | | | [address] | | | | | | [phone] | | | +--------+---------+ + + + [...] documented as of this encounter Progress Notes Thaddeus Khalil - 04/08/2014 8:14 AM PSTFormatting of this note might be different from james amor. COMPREHENSIVE OPHTHALMOLOGY PROGRESS NOTE 04/08/2014 HPI: 64 y.o. year old male from [place] : Patient presents with: Medical Eye Examination MS - Multiple sclerosis New pt with MULTIPLE SCLEROSIS, diagnosed in 1997. Pt's vision is pretty good although he f eels he can't see cars in right periphery until they are right up next to him. Only using re aders. He does c/o dry eyes but is not using any gtts. History of optic neuritis OS in 1997. Received prednisone at that time. Has not recurred. Last MRI 3-4 months ago. Tobacco use: reports that he has never smoked. He does not have any smokeless tobacco hist ory on file. Primary Care Provider: Trevin Delacruz MD Past ocular history: No specialty comments on file. Family ocular history: family history includes Glasses in his brother, father, and mother. See scanned intake form for full Family ocular and medical history. Allergies: has No Known Allergies. Medications: Current Outpatient Prescriptions (Other) Medication Sig cyanocobalamin Inject 1,000 mcg under the skin (SUBC) every thirty days. Indications: V ITAMIN B12 DEFICIENCY dextroamphetamine-amphetamine Take 10 mg by mouth three times daily as needed. Indicati ons: chronic fatigue DULoxetine Take one capsule daily for one week; if tolerated, increase to two capsules daily Indications: MAJOR DEPRESSIVE DISORDER gabapentin Take 600mg (2 tablets) at bedtime for 3 nights, if tolerated, incrase to 900 mg (3 tablets) at bedtime glatiramer Inject 40 mg under the skin (SUBC) three times weekly (on Monday, Monday and Monday). Indications: secondary progressive HYDROcodone-acetaminophen Take 1 tablet by mouth every four hours as needed for moderat e pain or severe pain. Not to exceed 3250 mg of acetaminophen from all products per 24 hour period. iron polysaccharides Take 150 mg by mouth once daily. memantine Take 10 mg by mouth two times daily. ONABOTULINUMTOXINA (BOTOX INJ) by injection route as needed (neurogenic bladder). rOPINIRole Take 2 mg by mouth once daily in the evening. Indications: RLS Medical history/PMH/Review of systems: Patient Active Problem List Diagnosis Major depression Anxiety associated with depression Multiple sclerosis Iron deficiency Vitamin B12 deficiency Back pain, chronic Neurogenic bladder No past medical history on file. has no past surgical history on file. Reviewed systems for: fever, wt. loss, ENT, cardiovascular, pulmonary, GI, urinary, neurolo gic, endocrine, bleeding/blood disorders, AIDS/HIV, cancer/tumors, arthritis - all were nega tive except as noted above. EXAMINATION: Base Exam Visual Acuity Right Left Dist sc 20/20 20/20-1 Method: Snellen - Linear Tonometry Right Left Pressure 13 11 Method: Applanation Time: 8:31 AM Manifest Refraction Sphere Cylinder Perry Dist Right plano +0.50 005 20/15-1 Left plano +1.00 164 20/20 Manifest Refraction #2 (Auto) Sphere Cylinder Perry Dist Right -0.25 +0.50 005 20/20 Left -0.50 +1.00 064 20/20 Dilation Both eyes: 2.5% Phenylephrine, 1.0% Mydriacyl @ 8:32 AM Pupils Pupils Dark Light React APD Right PERRL 4 3 Slow None Left PERRL 4 3 Brisk None Visual Cedillo Left Right Result Full Full Method: Counting fingers Extraocular Movement Right Left Result Full, Ortho Full, Ortho Neuro/Psych Oriented x3: Yes Mood/Affect: Normal Additional Tests Color Right Left Color 05/06 04/05 Method: Ishihara Slit Lamp and Fundus Exam External Exam [...] Normal Vessels Normal Normal Periphery Normal Normal I, THADDEUS KHALIL, performed, reviewed or revised the above history, medications, allergie s, as well as performed elements noted in the Base Ophthalmology Exam, including visual acui ty, pupils, EOMs, CVF and IOP. See EPIC ophthalmology module for exam information. Impression: Multiple Sclerosis With history of optic neuritis OS 1997. C/o difficulty seeing right VF . Also difficulty with higher order processing of visual information. Last MRI 3-4 months ago Color blindness Early cataracts OU. Plan: Schedule [facility] 24-2 Call with result, likely f/u 1 year Thaddeus Romo MD Material Control Associate Comprehensive Ophthal[facility] [place] [facility] [employer] Physician: Thaddeus Romo MD, 04/08/2014 documented in this enc ounter Plan of Treatment +--------+ + + + + | Date | Type | Specialty | Care Team | Description | +--------+ + + + + | 10/31/ | Appointment | Hematology & | Onc, Gen [address] | | | 2020 | | Oncology | [address] [place], | | | | | | [place] [address] | | +--------+ + + + + documented as of this encounter Visit Diagnoses + + | Diagnosis | + + | Multiple sclerosis (HCC) - Primary Multiple sclerosis | + + | Senile nuclear sclerosis, bilateral | + + | Color blindness, congenital Other color vision deficiencies | + + documented in this encounter"
--- OUTSIDE RECORDS SUMMARY | ~2019-08-23 | XMS | Encounter Summary ---
Demographics + + + | Address | [address] | | | [place] [address] | + + + | Home Phone | | + + + | Preferred Language | Unknown | + + + | Marital Status | | + + + | Episcopalian Affiliation | Unknown | + + + | Race | Unknown | + + + | Ethnic Group | Unknown | + + + Author + + + | Author | [facility] | | | and Jadenana | + + + | Organization | [facility] | | | and Jadenana [...] | | | | | [place] [address] | | + + + + + Care Team Providers + +------+ + | Care Magnetic Grinder Operator Name | Role | Phone | + +------+ + | Lexie Cagle | PCP | | | MERCHANDISING INTERN | | | + +------+ + Encounter Details +--------+ + + + + | Date | Type | Department | Care Team | Description | +--------+ + + + + | 02/27/ | Abstract | [facility] | CagleLexie haknins | | | 2019 | | MEDICINE [address] | [address] | | | | | [address] [place] | [address] [place] | | | | | [place] [address] | [place] [address] | | | | | [phone] | [phone] | | | | | | | [...] [place] | | | | | | [address] | | | | | | | | +--------+---------+ + + + documented as of this encounter Procedures + +--------+ + + + | Procedure Name | Priori | Date/Time | Associated Diagnosis | Comments | | | ty | | | | + +--------+ + + + | EXTERNAL LAB: | Routin | 02/20/2019 | | Results for this | | PROTIME INR | e | | | procedure are in the | | | | | | results section. | + +--------+ + + + documented in this encounter Results External Lab: [facility] INR (02/20/2019) + +---------+ + + + | Component | Value | Ref Range | Performed | Pathologist | | | | | At | Signature | + +---------+ + + + | INR, | 2.1 (A) | 0.9 - 1.2 | | | | External | | | | | + +---------+ + + + + + | Specimen | + + | Blood | + + documented in this encounter Visit Diagnoses Not on filedocumented in this encounter"
--- OUTSIDE RECORDS SUMMARY | ~2019-08-23 | XMS | Encounter Summary ---
Demographics + + + | Address | [address] | | | [place] [address] | + + + | Home Phone | | + + + | Preferred Language | Unknown | + + + | Marital Status | | + + + | Caodaism Affiliation | Unknown | + + + | Race | Unknown | + + + | Ethnic Group | Unknown | + + + Author + + + | Author | [facility] | | | and [place] | + + + | Organization | [facility] | | | and [...] | | | | | [place] [address] | | + + + + + Care Team Providers + +------+ + | Care Loading Machine Operator Helper Name | Role | Phone | + +------+ + | Lexie Cagle | PCP | | | MULTIMEDIA INSTRUCTIONAL DESIGNER | | | + +------+ + Encounter Details +--------+ + + + + | Date | Type | Department | Care Team | Description | +--------+ + + + + | 02/01/ | Anti-coag | [facility] | CagleLexie hankins | | | 2019 | Telephone | MEDICINE [address] | [address] | | | | | [address] [place] | [address] [place] | | | | | [place] [address] | [place] [address] | | | | | [phone] | [phone] | | | | | | | [...] as of this encounter Progress Notes Kerline Irizarry Cardiopulmonary Supervisor - 02/01/2019 8:34 AM PSTPatient notified.Electronically s igned by Kerline Irizarry Cardiopulmonary Supervisor at 02/01/2019 9:33 AM KRISTENWoodLexie hankins APRN - 02/01/2019 8:34 AM PSTINR therapeutic, remain on 10 mg daily, recheck in 2 weeksEle ctronically signed by Lexie Cagle APRN at 02/01/2019 9:33 AM PSTdocumented in this encounter Plan of Treatment +--------+---------+ + + + | Date | Type | Specialty | Care Team | Description | +--------+---------+ + + + | 11/12/ | Office | Sleep Medicine | Laith Sheffield PA | | | 2020 | Visit | | [address] | | | | | | [place] | | | | | | [address] | | | | | | | | +--------+---------+ + + + documented as of this encounter Procedures + +--------+ + + + | Procedure Name | Priori | Date/Time | Associated Diagnosis | Comments | | | ty | | | | + +--------+ + + + | EXTERNAL LAB: | Routin | 01/31/2019 | | Results for this | | MAR INR | e | | | procedure are in the | | | | | | results section. | + +--------+ + + + documented in this encounter Results External Lab: Mar INR (01/31/2019) + +---------+ + + + | Component | Value | Ref Range | Performed | Pathologist | | | | | At | Signature | + +---------+ + + + | INR, | 2.0 (A) | 0.9 - 1.2 | REFERENCE | | | External | | | LAB | | | | | | [facility] | | | | | | [facility] | | + +---------+ + + + + + | Specimen | + + | Blood | + + + + + + + | Performing | Address | City/State/Zipcode | Phone Number | | Organization | | | | + + + + + | REFERENCE LAB | [address] | [place] | [phone] | | [facility] | | [address] | | + + + + + documented in this encounter Visit Diagnoses Not on filedocumented in this encounter"
--- OUTSIDE RECORDS SUMMARY | ~2019-08-23 | XMS | Encounter Summary ---
Demographics + + + | Address | [address] | | | [place] [address] | + + + | Home Phone | | + + + | Preferred Language | Unknown | + + + | Marital Status | Single | + + + | Confucianist Affiliation | NONDENOMINATIONAL | + + + | Race | [...] | + + +---------+ + | Theodore Mraquez | BHARGAV | Unknown | | + + +---------+ + Care Team Providers + +------+ + | Care Sneller Hand Name | Role | Phone | + +------+ + | Rudolph Lee MD | PCP | | + +------+ + Encounter Details +--------+ + + + + | Date | Type | Department | Care Team | Description | +--------+ + + + + | 02/06/ | Procedure - | | Lab, Vascular | Vascular | | 2001 | | | | [...] | | | | | | [place] [address] | | +--------+ + + + + documented as of this encounter Procedures + +--------+ + + + | Procedure Name | Priori | Date/Time | Associated Diagnosis | Comments | | | ty | | | | + +--------+ + + + | VASCULAR FLOW | | 02/06/2002 | | | | IMAGING, NONCARDIAC | | | | | | - VASC LAB | | | | | + +--------+ + + + documented in this encounter Visit Diagnoses Not on filedocumented in this encounter"
--- OUTSIDE RECORDS SUMMARY | ~2019-08-23 | XMS | Encounter Summary ---
Demographics + + + | Address | [address] | | | [place] [address] | + + + | Home Phone | | + + + | Preferred Language | Unknown | + + + | Marital Status | Single | + + + | Voodoo Affiliation | ROMAN CATHOLIC | + + + | Race | White | + + + | Ethnic Group | Not or | + + + Author + + + | Author | [facility] | + + + | Organization | [facility] | + + + | Address | Unknown | + + + | Phone | Unavailable | + + + Support + + +---------+ + | Name | Relationship | Address | Phone | + + +---------+ + | Theodore Marquez | ECON | Unknown | | + + +---------+ + Care Team Providers + +------+ + | Care Racking Machine Operator Name | Role | Phone | [...] sclerosis | | 2016 | Visit | [facility] & | [address] | ([facility]) (Primary Dx); | | | | Healing [address] | [address] [place], | Major depressive | | | | Ave Mailcode: CH8C | [place] [address] | disorder, recurrent | | | | [facility] | [phone] | episode, in partial | | | | and Healing, | | remission (HCC) | | | | [address], | | | | | | [place], [place] | | | | | | [address] | | | | | | [phone] | | | +--------+---------+ + + + [...] CLINIC Medical Problems 1. Multiple sclerosis Avonex 3843-3208 (treatment for 2 years) Rebif for 2.5 [...] of spinal stimulator INTERVAL HISTORY: Mr. Marquez [facility] for follow [facility]. Since his last visit [...] Medical History Diagnosis Date MS (multiple sclerosis) ([facility]) gait/ cognition issues Back pain [...] in R LE. Cerebellar testing shows slowed nmzbap-sc-llwr and L rmrg-bw-grcg. He has difficulty with R heel-to-s hin. [...] 2020 | | Oncology | [address] [place], | | | | | | [place] [address] | | +--------+ + + + + [...]
--- OUTSIDE RECORDS SUMMARY | ~2019-08-23 | XMS | Encounter Summary ---
Demographics + + + | Address | [address] | | | [place] [address] | + + + | Home Phone | | + + + | Preferred Language | Unknown | + + + | Marital Status | | + + + | Synagogue Affiliation | Unknown | + + + | Race | Unknown | + + + | Ethnic Group | Unknown | + + + Author + + + | Author | [facility] | | | and Jadenana | + + + | Organization | [facility] | | [...] | | | | | [place] [address] | | + + + + + Care Team Providers + +------+ + | Care Carpenter Refrigerator Name | Role | Phone | + +------+ + | Lexie Cagle | PCP | | | BALANCE AND HAIRSPRING ASSEMBLER | | | + +------+ + Reason [...] | | | | Procedures | | [address] Phone: | | | | | [place] | | [phone] | | | | | CYSTO/URETER | | Fax: | | | | | O | | [phone] | | | | | W/LITHOTRIPS | [...] W/ | | | | [address] | [address] [place], [place] | LASER lithotripsy | | | | [place], [place] | [address] | and stent | | | | [address] | | | | | | [phone] | | | +--------+---------+ + + + [...] You can't be awakened Date Last Reviewed: 01/12/201619996731-4978 [employer]. [address] [place] [address], [place] [address]. All righ ts reserved. This information is [...] [place] | | | | | | [id number] | | | | | | | [...] + + | RENETTA DECKER | [address] [place] | [place] [address] | [phone] | | MARIELA JONES | | | [...] glucose < 50, | | | Starting [facility] 01/03/19 at 0655, | | | [...] | | | | | | longer, qypuhs-yhb-sjdvw use of | | | | | [...] | | | | | | | dzawrf-uzz-klymd use of at least | | | [...] day), | | | First dose on [facility] 01/03/19 at | | | 1515, [...]
--- OUTSIDE RECORDS SUMMARY | ~2019-08-23 | XMS | Encounter Summary ---
Demographics + + + | Address | [address] | | | [place] [address] | + + + | Home Phone | | + + + | Preferred Language | Unknown | + + + | Marital Status | Single | + + + | Hoahaoism Affiliation | MANDAEISM | + + + | Race | White | + + + | Ethnic Group | Not or | + + + Author + + + | Author | [facility] | + + + | Organization | [facility] | + + + | Address | Unknown | + + + | Phone | Unavailable | + + + Support + + +---------+ + | Name | Relationship | Address | Phone | + + +---------+ + | Theodore Marquez | ECON | Unknown | | + + +---------+ + Care Team Providers + +------+ + | Care Conciliation Court Judge Name | Role | Phone | + +------+ + | Jose Hameed MD | PCP | | + +------+ + Reason for Visit Diagnostic Testing (Routine) +--------+--------+ + + + + | Status | Reason | Specialty | Diagnoses / | Referred By | Referred To | | | | | Procedures | Contact | Contact | +--------+--------+ + + + + | Closed | | Radiology | Diagnoses | Mass, | | | | | | Multiple | MD Christian | | | | | | sclerosis | [address] | | | | | | ([facility]) | Nate | | | | | | Mounika | [address] | | | | | | of [facility] | [place], [place] | | | | | | disturbance | [address] | | | | | | Procedures | Phone: | | | | | | MRI BRAIN | [phone] | | | | | | MULTIPLE | Fax: | | | | | | SCLEROSIS | [phone] | | | | | | WWO CONTRAST | | | +--------+--------+ + + + + Encounter Details +--------+ + + + + | Date | Type | Department | Care Team | Description | +--------+ + + + + | 01/05/ | Hospital | Diagnostic Imaging | | | | 2016 | Encounter | Services at [facility] | | | | | | [address] | | | | | | [address] | | | | | | [facility] | | | | | | [place], [place] | | | | | | [address] | | | | | | [phone] | | | +--------+ + + + [...] + + + +---------+ + + | cyclobenzaprine 10 | Take by mouth. | | 0 | 12/24/19 | | | mg oral tablet | | | | 16 | 6 | + + + +---------+ + + [...] | | | | | | [place] [address] | | +--------+ + + + + documented as of this encounter Procedures + +--------+ + + + | Procedure Name | Priori | Date/Time | Associated Diagnosis | Comments | | | ty | | | | + +--------+ + + + | MRI BRAIN MULTIPLE | Routin | 01/06/2016 | Multiple sclerosis | Results for this | | SCLEROSIS WWO | e | 8:36 AM | ([facility]) Complaints | procedure are in the | | CONTRAST | | PDT | of memory | results section. | | | | | disturbance | | + +--------+ + + + | CREATININE, POC | Routin | 01/06/2016 | | Results for this | | | e | 7:19 AM | | procedure are in the | | | | PDT | | results section. | + +--------+ + + + documented in this encounter Results CREATININE, POC (01/06/2016 7:19 AM PDT) + +-------+ + + + | Component | Value | Ref Range | Performed | Pathologist | | | | | At | Signature | + +-------+ + + + | CREATININE, | 1.1 | 0.7 - 1.3 mg/dL | [facility] - | | | POC | | | [facility] | | | | | | [facility] | | | | | | OF CARE | | | | | | TESTS | | + +-------+ + + + + + | Specimen | + + | | + + + + + + + | Performing | Address | City/State/Zipcode | Phone Number | | Organization | | | | + + + + + | [facility] | [address] | [place], [place] | | | [facility] | [facility] | [address] | | | TESTS | | | | + + + + + documented in this encounter Visit Diagnoses Not on filedocumented in this encounter"
--- OUTSIDE RECORDS SUMMARY | ~2019-08-23 | XMS | Encounter Summary ---
Demographics + + + | Address | [address] | | | [place] [address] | + + + | Home Phone | | + + + | Preferred Language | Unknown | + + + | Marital Status | Single | + + + | Anabaptism Affiliation | MU-ISM | + + + | Race | White | + + + | Ethnic Group | Not or | + + + Author + + + | Author | [facility] | + + + | Organization | [facility] | + + + | Address | Unknown | + + + | Phone | Unavailable | + + + Support + + +---------+ + | Name | Relationship | Address | Phone | + + +---------+ + | Theodore Marquez | ECON | Unknown | | + + +---------+ + Care Team Providers + +------+ + | Care Leg Assembler Name | Role | Phone | + +------+ + | Jose Hameed MD | PCP | | + +------+ + Reason for Visit + + + | Reason | Comments | + + + | Medical Eye | | | Examination | | + + + Encounter Details +--------+---------+ + + + | Date | Type | Department | Care Team | Description | +--------+---------+ + + + | 09/13/ | Office | [facility] | Ethel Romo MD | Multiple sclerosis | | 2017 | Visit | [place] | [address] | ([facility]) (Primary Dx); | | | | ogy at [facility] [address] | [facility] [place] | Color blindness, | | | | [place] Mailcode: | [id number] | congenital; Senile | | | | [address] [facility] | [phone] | nuclear sclerosis, | | | | [facility], | | bilateral; Decreased | | | | | | vision in both eyes | | | | Floor [place], [place] | | | | | | [address] | | | | | | [phone] | | | +--------+---------+ + + + [...] documented as of this encounter Progress Notes Lita Naqvi - 09/13/2016 3:10 PM PDT COMPREHENSIVE OPHTHALMOLOGY PROGRESS NOTE Assessment and Plan: Exam Date: 09/13/2016 Patient:Mian Marquez ([id number]) Impression: Multiple Sclerosis With history of optic neuritis OS 1997. -C/o difficulty seeing right VF. Also difficulty with higher order processing of visual inf ormation. -Visual field testing supports history of optic neuritis OS, may have had subclinical event OD as well. No hemifield defect on exam. Color blindness Early cataracts OU. meibomian gland dysfunction OU Plan: Discussed lid scrubs, warm compresses, flax/fish oil, ATs. RTC 1 year Physician: Ethel Romo MD 09/13/2016 HPI: Mian Marquez ([id number]), 66 y.o. year old male from [place] : Patient presents with: Medical Eye Examination Vision has changed. Vision is constantly blurry in both eyes for about 2 months. No pain. E yes feel fatigued. Tried Artificial tears with no relief. Was using tid. Does not wear dista nce glasses. OTC readers prn. Vision is blurry at all distances. H/o optic neuritis. Vision decreased. Can fall asleep anytime. Tobacco use: reports that he has never smoked. He has never used smokeless tobacco. Prima ry Care Provider: Jose Hameed MD Past ocular history: Multiple Sclerosis With history of optic neuritis OS 1997. C/o difficulty seeing right VF . Also difficulty with higher order processing of visual information. Color blindness Early cataracts OU. Family ocular history: Family history includes Glasses in his brother, father, and mother. See scanned intake form or preadmission data in [facility] for full Family ocular and medical his tory. Allergies: is allergic to latex and adhesive tape. Medications: Current Outpatient Prescriptions Medication Sig Cholecalciferol, Vitamin D3, (VITAMIN D3) 5,000 unit oral tablet Take 5,000 Units by mo uth once daily. cyanocobalamin 1,000 mcg/mL injection solution Inject into the muscle (IM). gabapentin 300 mg oral capsule Take 1 capsule by mouth three times daily. Indications: NEUROPATHIC PAIN iron sucrose 100 mg iron/5 mL intravenous solution Every other month NaCl 0.9 % solp 500 mL with iron dextran 100 mg/2 mL (50 mg/mL) soln Inject into the v ein (IV) once. Every 2 months ONABOTULINUMTOXINA (BOTOX INJ) by injection route as needed (neurogenic bladder). oxyCODONE, immediate release, 5 mg oral tablet Take 5 mg by mouth every six hours as ne eded. rOPINIRole 2 mg oral tablet Take 2 mg by mouth once daily in the evening. traZODone 100 mg oral tablet Take 1 tablet by mouth once daily at bedtime. venlafaxine 75 mg oral tablet Take 1 tablet by mouth once daily. Indications: major dep ressive disorder No current facility-administered medications for this visit. 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 Reviewed systems for: fever, wt. loss, ENT, cardiovascular, pulmonary, GI, urinary, neurolo gic, endocrine, bleeding/blood disorders, AIDS/HIV, cancer/tumors, arthritis - all were nega tive except as noted above. EXAMINATION: Base Exam Visual Acuity (Snellen - Linear) Right Left Dist sc 20/20-1 20/15-3 Tonometry (Applanation, 3:12 PM) Right Left Pressure 14 12 Manifest Refraction Sphere Cylinder [place] Dist Right [place] +0.50 005 20/20 Left [place] +0.75 165 20/15 Dilation Both eyes: 2.5% Phenylephrine, 1.0% Mydriacyl @ 3:12 PM Pupils Pupils Right PERRL Left PERRL Visual [place] Left Right Result Full Full Extraocular Movement Right Left Result Full Full No pain on EOM testing. Neuro/Psych Oriented x3: Yes Mood/Affect: Normal Slit Lamp and Fundus Exam External Exam [...] Vessels Normal Normal Periphery Normal Normal I, Lita Naqvi, COT, performed, reviewed or revised the above history, medications, aller gies, as well as performed elements noted in the Base Ophthalmology Exam, visual acuity, pup ils, EOMs, CVF and IOP. See EPIC ophthalmology module for exam information. Assessment and Plan is now at the top of the note. I, Liya Jaimes, am functioning as scribe for Ethel Romo MD. I have reviewed and edited history and composite technician documentation, and performed all other el ements to above examination documentation. I have reviewed and verified the above scribed note of my visit with this patient as record ed by the scribe indicated in the tech attestation above. Ethel Romo MD Radiator Cleaner Comprehensive Ophthalmology [facility] [place] Physician: Ethel Romo MD OCT Macula, 09/13/2016 Right Eye Left Eye --- --- Normal retinal anatomy documented in this encounter Plan of Treatment +--------+ + + + + | Date | Type | Specialty | Care Team | Description | +--------+ + + + + | 10/31/ | Appointment | Hematology & | Onc, Gen [address] | | | 2020 | | Oncology | [place], | | | | | | [place] [address] | | +--------+ + + + + + + +--------+ + + | Name | Type | Priori | Associated Diagnoses | Order Schedule | | | | ty | | | + + +--------+ + + | CMPTR OPHTH DX IMG | Procedures | Routin | Decreased vision | Expected: | | POST SEGMT | | e | in both eyes | 09/13/2016, Expires: | | | | | | 03/15/2018 | + + +--------+ + + documented as of this encounter Visit Diagnoses + + | Diagnosis | + + | Multiple sclerosis (HCC) - Primary Multiple sclerosis | + + | Color blindness, congenital Other color vision deficiencies | + + | Senile nuclear sclerosis, bilateral | + + | Decreased vision in both eyes Moderate or severe vision impairment, both eyes, | | impairment level not further specified | + + documented in this encounter"
--- OUTSIDE RECORDS SUMMARY | ~2019-08-23 | XMS | Encounter Summary ---
Demographics + + + | Address | [address] | | | [place] [address] | + + + | Home Phone | | + + + | Preferred Language | Unknown | + + + | Marital Status | | + + + | Catholic Affiliation | Unknown | + + + | Race | Unknown | + + + | Ethnic Group | Unknown | + + + Author + + + | Author | [facility] | | | and Jadenana | + + + | Organization | [facility] | | | and Jadenana | + + + | Address | Unknown | + + + | Phone | Unavailable | + + + Support + + + + + | Name | Relationship | Address | Phone | + + + + + | Triny Hradin | ECON | Unknown | | + + + + + | Zuleyma Ayala | ECON | [address] | | | | | [place] [address] | | + + + + + Care Team Providers + +------+ + | Care Enamel Sprayer Name | Role | Phone | + +------+ + | Lexie Cagle | PCP | | | CIRCUIT BOARD REPAIR TECHNICIAN | | | + +------+ + Reason for Referral Evaluate & Treat (Routine) +--------+ + + + + + | Status | Reason | Specialty | Diagnoses / | Referred By | Referred To | | | | | Procedures | Contact | Contact | +--------+ + + + + + | Closed | Specialty | Physical | Diagnoses | [place], | [facility] | | | Services | Therapy | | [facility] | | | Required | | Osteoarthrit | Phill, | PHYSICAL | | | | | is of both | MD [address] | | | | | knees, | [address] | [place] | | | | | unspecified | [place], | [place], [place] | | | | | osteoarthrit | [place] | [address] | | | | | is type | [address] | Phone: | | | | | Chondrocalci | Phone: | [phone] | | | | | nosis of | [phone] | Fax: | | | | | knee, left | Fax: | [phone] | | | | | Chondrocalci | [phone] | | | | | | nosis of | | | | | | | knee, right | | | +--------+ + + + + + Reason for Visit + + + | Reason | Comments | + + + | New Patient | | + + + | Knee Pain | Bilateral | + + + Evaluate & Treat (Routine) +--------+ + + + + + | Status | Reason | Specialty | Diagnoses / | Referred By | Referred To | | | | | Procedures | Contact | Contact | +--------+ + + + + + | Closed | Specialty | Orthopedic | Diagnoses | [place], | [facility] | | | Services | Surgery | Acute pain | Lexie | Orthopedic | | | Required | | of left knee | Arleen, | Surgery [address] | | | | | Chronic | CIRCUIT BOARD REPAIR TECHNICIAN [address] | | | | | pain of | [address] | [place], | | | | | right knee | [place], | [place] | | | | | | [place] [address] | [address] | | | | | | Phone: | Phone: | | | | | | [phone] | [phone] | | | | | | Fax: | Fax: | | | | | | [phone] | [phone] | +--------+ + + + + + Encounter Details +--------+---------+ + + + | Date | Type | Department | Care Team | Description | +--------+---------+ + + + | 07/04/ | Office | [facility] | Trevin Xiao | Osteoarthritis of | | 2018 | Visit | ORTHOPEDIC SURGERY | MD [address] | both knees, | | | | [address] [facility] | [facility] | unspecified | | | | [place], [place] | [place] [address] | osteoarthritis type | | | | [address] | [phone] | (Primary Dx); | | | | [phone] | | Chondrocalcinosis of | | | | | | knee, left; | | | | | | Chondrocalcinosis of | | | | | | knee, right | +--------+---------+ + + + Social History [...] + + + | Blood Pressure | - | - | | + + + + + | Pulse | - | - | | + [...] + + + + | Weight | 90.3 kg (199 lb) | 07/04/2018 8:53 AM | | | | | PDT | | + + + + + | Height | 177.8 cm (5' 10") | 07/04/2018 8:53 AM | | | | | PDT | | + + + + + | Body Mass Index | 28.55 | 07/04/2018 8:53 AM | | | | | PDT | | + + + + + documented in this encounter Patient Instructions Patient Instructions Trevin Xiao MD - 07/04/2018 9:00 AM PDT Osteoarthritis: Coping with Pain There are many ways to control your pain. You re making a good start by learning about os teoarthritis and its treatments. Knowing more about this condition helps you work with your healthcare provider to find answers to problems. Keeping a positive outlook can help you man age pain from day to day. And making time each day to relax and enjoy yourself may help you control osteoarthritis pain, instead of letting it control you. Try these methods to help yo u cope with, and even reduce, your pain. Take control Relaxingmay help relieve muscle aches that result from joint pain. To relax, try these te chniques: Breathe slowly and calmly and think of a peaceful scene. Meditate by focusing your mind on one word, object, or idea. Getting plenty of sleepcan help reduce pain and let you function better. If pain is makin g it hard for you to sleep, ask your healthcare providerabout ways to control pain and ens ure a good night s sleep. Cutting back on caffeine and alcohol can help you sleep better. So can going to bed and getting up at about the same time every day. Use distraction Getting your mind off the painmay seem hard to do. But it can actually help reduce pain. When you are in pain, try one of these ways of distracting yourself: Watch a funny movie with a friend. Listen to music you enjoy. Read a novel. Talk with friends or family. Go to a museum, park, or other favorite attraction. Arrange to do a regular activity, such as volunteer work. Heat and cold Using heat and cold treatments are simple ways to lessen arthritis symptoms: Heat soothes stiff joints and tired muscles. Heat works well before exercise, for exampl e. Heat treatments include: ? A warm shower or bath, or soak (for example, fill the sink with warm water and move your fingers, hands, and wrists around in the water) ? A moist heating pad ? A warm, moist wash cloth ? An electric blanket or throw Cold treatments help to numb painful areas and decrease swelling. Cold treatments includ e the following wrapped in a thin towel: ? An ice pack or bag of ice. To make an ice pack, put ice cubes in a plastic bag that seals at the top. ? A gel-filled cold pack Be careful when using heat or cold. You can injure your skin. Each treatment should only la st for 10 to 20 minutes. Your healthcare provider or therapist can give you specific instruc tions. Acupuncture Acupuncture is a [id number] practice. Providers insert thin needles in specific parts o f the body. Research shows that it can help to relieve the pain of arthritis. For more information or to find a providerin your area, contact the [place] [employer]. Its website is: www.medicalacupuncture.org/. Massage Therapeutic massage has many benefits. It may: Help you and your muscles relax Improve blood flow to muscles and joints Help joints stay more flexible Look for a certified massage therapist. Many are trained to treat sore muscles and joint pa in and stiffness. Vitamins, supplements, and herbs People with arthritis, or other long-term conditions that cause pain, often look for altern ative ways to lessen pain. Vitamins, supplements, and herbs may or may not help you to feel better. Before you try any vitamin, supplement, or herb, make sure you ask your healthcare p rovider or pharmacist. Physical therapy and occupational therapy Evaluation by a physical therapist and or occupational therapist for assessment for limitat ions in activities of daily living Help with developing an appropriate exercise routine for both muscle strengthening and card iovascular health Weight management Studies have shownthat weight loss in overweight peoplecan improve osteoarthritis sympt oms. Talk with your healthcare provider aboutyour optimal idealweight and weight management methodsif needed. Psychological treatments Research shows that many psychological therapies or those that deal with thinking and emoti ons, help people cope with arthritis pain. Therapies include cognitive behavioral therapy (C BT), pain coping skills training, biofeedback, stress management, and hypnosis. Ask your [facility] provider for more information about these therapies. For more information about many of these methods, contact the National [facility] for [facility] tary and Alternative Medicine ([facility]) at https://[facility].nih.gov. Date Last Reviewed: 08/25/201719992006-2547 [employer]. [address] [place] [address]. All righ ts reserved. This information is not intended as a substitute for professional medical care. Always follow your healthcare professional's instructions. documented in this encounter Progress Notes Trevin Xiao MD - 07/04/2018 9:00 AM PDTFormatting of this note might be dif ferent from the original. [facility] HISTORY AND PHYSICAL EXAMINATION Pt. Name/Age/: Mian Marquez 68 y.o. 1950 Primary Care Physician: Lexie Cagle Chief Complaint/Reason for Visit: New Patient and Knee Pain (Bilateral) History of Present Illness: The patient is a pleasant 68 y.o. male who presents with a history of chronic bilateral kne e pain. The right knee bothers him more than the left. He reports that he has had pain sin ce 1968. 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 He had at least 2 surgeries on each knee. These were performed open. The patient re ports that he has a burning pain below his knees and often loses balance. It has led to him falling or feeling like his knee gives out from time to time. He has a history of having a spinal stimulator placed in his spine. He reports that his biggest problem at this point i s a feeling of his knees giving out. His pain is a 3 out of 10 at baseline but can get up t o being an 8 out of 10. His pain has been the same over time. He is unable to do his amelia l daily activities. He does not use tobacco. He has a history of multiple sclerosis.. 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 MAIN OR CHOLECYCTOSTOMY CYSTOSCOPY N/A 04/19/2018 Procedure: Cystoscopy, bladder Botox, injection of urethral bulking agent; Surgeon: Gina Fernandes MD; Location: [facility] MAIN OR GASTRIC BYPASS SURGERY 2001 2 x KNEE SURGERY Bilateral LAP BAND 2010 urinary stimulator 2005 Allergies: No Known Allergies Current Medications: Current Outpatient Medications Medication Sig Dispense Refill cholecalciferol (CHOLECALCIFEROL) 5000 units TABS Take 5,000 Units by mouth Daily. DULoxetine (CYMBALTA) [address] capsule Take 90 mg by mouth Daily. DULoxetine (CYMBALTA) [address] capsule Take 60 mg by mouth Daily. Ergocalciferol (VITAMIN D2) 2000 units TABS daily oxybutynin (DITROPAN) 5 mg tablet Take 1 tablet by mouth as needed. oxyCODONE (ROXICODONE) 5 mg tablet Take 5-10 mg by mouth as needed. rOPINIRole (REQUIP) 2 MG tablet Take 1 tablet by mouth nightly. 90 tablet 1 traZODone (DESYREL) 100 mg tablet Take 1 tablet by mouth nightly. 30 tablet 0 No current facility-administered medications for this visit. Family History: Family History Problem Relation Age of Onset Cancer Mother Cancer Father bone cancer Prostate cancer Neg Hx Social History: Social History Socioeconomic History Marital status: Single Spouse name: Not on file Number of children: Not on file Years of education: Not on file Highest education level: Not on file Social Needs Financial resource strain: Not on file Food insecurity - worry: Not on file Food insecurity - inability: Not on file Transportation needs - medical: Not on file Transportation needs - non-medical: Not on file Occupational History Not on file Tobacco Use Smoking status: Never Smoker Smokeless tobacco: Never Used Substance and Sexual Activity Alcohol use: No Drug use: No Sexual activity: Yes Partners: Female control/protection: Condom Other Topics Concern Not on file Social History Narrative Not on file Review of Systems All of these are negative unless otherwise marked Eyes: [] Double vision [] Glasses/contacts [] Failing vision Respiratory: [] Asthma/Wheezing [] Pneumonia [] Night sweats [] Shortness of breath [] Chronic cough [] Coughing up blood [] Exposure to tuberculosis Cardiovascular: [] Heart Problems [] Hypertension [] Heart murmur [] Palpitations [] Rheumatic fever [x] Phlebitis [] Chest pain [] Ankle swelling [x] Leg cramps [] Raci ng heart [] Skipping beats [x] Blood clots Urinary Tract: [x] Painful urination [] Kidney Stones [x] Any urine leakage [x] Weak urine stream [x] Night urination [x] Urine infections [] Bedwetting [] Blood in urine Ear/Nose/Throat: [] Frequent Colds [] Sinus Disease [] Nose obstruction [] Sneezing Spells [] Change in taste [] Artificial teeth [] Ears ringing [] Ear pain [] Hearing loss [] Teeth problems [] Hoarseness [] Neck swelling [] Sore throat [] Congestion [] Nosebleeds [] Nasal allergies Gastrointestinal: [] Abdominal pain [] Heartburn [] Blood from rectum [] Colitis [] Gallbladder problems [] Troubl e swallowing [] Bloated stomach [] Change in stools [] Vomiting blood [] Nausea [] Hemorrhoids [] Jaundice [ ] Hepatitis [] Diarrhea [] Constipation [] Diverticulitis Musculoskeletal: [x] Physical handicaps [x] Back or shoulder pain []Rheumatoid disease [x] Osteoarthritis [x] Joint pain [] Joint swelling []Gout [] Leg cramps at night Skin: [] Skin rashes [] Itching/Burning [] Skin bruises easil y [] Artificial tanning [] Skin cancer [] Hair loss [] Changes in moles Psychiatric: [] Depression [] Suicidal thoughts [] Sleep pattern changes [] Appetite changes [] Recent counseling [] Nervousness/anxiety [] Physical violence [] Marital problems Neurological: [] Headaches [] Seizures [] Stroke/TIA [] Faintness [] Tremors [] Numbness [] Dizziness [] Changes in handwriting [] Memory loss [] Shooting pains Endocrine: [] Thyroid [] Diabetes Systemic: []Weight loss/gain (over 10 lbs) []Fever/chills []Fatigue [] Sleeping Difficulties [] Speech change [] Voice change Admission Weight: Weight: 90.3 kg (199 lb) BMI: Body mass index is 28.55 kg/m. Physical Examination: Ht 1.778 m (5' 10") | Wt 90.3 kg (199 lb) | BMI 28.55 kg/m General: Alert, oriented, no acute distress HEENT: Normocephalic, atraumatic Cardiovascular: Regular rate and rhythm Respiratory: Breathing normally at a regular rate Ortho Exam Bilateral Knee Exam Tenderness: Lateral joint line on the right and medial joint line on the left Right Knee Passive Range of Motion: 0/130 Left Knee Passive Range of Motion: 0/130 Right Knee Left Knee Anterior Drawer Negative Negative Posterior Drawer Negative Negative Geronimo's Test Negative Negative Varus Stress Negative Negative Valgus Stress Negative Negative Sensation intact to light touch in the first dorsal webspace, medial, lateral, dorsal and p lantar foot. Dorsalis pedis and posterior tibial pulses 2+. Able to plantarflex, dorsiflex, kalpesh and invert the ankle. Diagnostic Studies: Imaging AP weightbearing view obtained today in addition to prior left and right knee films from 06/01/2018. The patient does have moderate valgus osteoarthrosis of the right knee. There is m ild osteoarthrosis of the left knee. Labs- Lab Results Component Value Date NA 138 06/01/2018 K 4.5 06/01/2018 CL 100 06/01/2018 CO2 27 06/01/2018 ANIONGAP 11 06/01/2018 GLU 63 (L) 06/01/2018 BUN 17 06/01/2018 CREA 0.84 06/01/2018 GFRNONAA >60 06/01/2018 CALCIUM 9.1 06/01/2018 ALBUMIN 4.3 06/01/2018 BILITOT 1.0 06/01/2018 TOTALPROTEIN 6.9 06/01/2018 AST 26 06/01/2018 ALT 23 06/01/2018 ALKPHOS 57 06/01/2018 WBC 5.8 06/01/2018 HGB 14.7 06/01/2018 HCT 44.4 06/01/2018 MCV 96.5 06/01/2018 PLT 209 06/01/2018 Assessment and Plan: 1. Osteoarthritis of both knees, unspecified osteoarthritis type XR Knee Right 1 - 2 Vw XR Knee Left 1 - 2 Vw Physical Therapy - Ambulatory Referral 2. Chondrocalcinosis of knee, left Physical Therapy - Ambulatory Referral 3. Chondrocalcinosis of knee, right Physical Therapy - Ambulatory Referral The patient is a pleasant 68 y.o. male who presents with a history of bilateral knee pain. Treatment options were discussed with the patient including non-operative treatment modaliti es. Considering the nature of the patient's condition, decision was made to proceed with phy sical therapy. He complains a lot of the sensation of his knees giving out. I think therap y would help him by strengthening his quadriceps and hopefully getting rid of that feeling f or him. I worry about his description of pain as a burning pain not localized to the joint line. That does not strike me as normal osteoarthritic knee pain. He does have a history o f previous spinal issues and has a spinal stimulator placed. He also has a history of multi ple sclerosis. I think therapy is the best place to start for him at this time. If that fa ils, I have to give consideration to injections. Follow-up: Return in about 2 months (around 09/03/2018). with no x-ray Portions of this report were transcribed using voice recognition software. Every effort wa s made to ensure accuracy; however, inadvertent computerized transcriptionist errors may be pre sent. I appreciate the opportunity to help with the management of this patient. Trevin Xiao MD documented in this encounter Plan of Treatment +--------+---------+ + + + | Date | Type | Specialty | Care Team | Description | +--------+---------+ + + + | 11/12/ | Office | Sleep Medicine | Laith Sheffield PA | | | 2020 | Visit | | [address] | | | | | | [place] | | | | | | [address] | | | | | | | | +--------+---------+ + + + + +---------+--------+ + + | Name | Type | Priori | Associated Diagnoses | Order Schedule | | | | ty | | | + +---------+--------+ + + | XR Knee Right 1 - 2 | Imaging | Routin | Osteoarthritis of | Expected: | | Vw | | e | both knees, | 07/04/2018, Expires: | | | | | unspecified | 07/04/2019 | | | | | osteoarthritis type | | + +---------+--------+ + + + + +--------+ + + | Name | Type | Priori | Associated Diagnoses | Order Schedule | | | | ty | | | + + +--------+ + + | Physical Therapy - | Outpatient | Routin | Osteoarthritis of | Ordered: 07/04/2018 | | Ambulatory Referral | Referral | e | both knees, | | | | | | unspecified | | | | | | osteoarthritis type | | | | | | Chondrocalcinosis | | | | | | of knee, left | | | | | | Chondrocalcinosis of | | | | | | knee, right | | + + +--------+ + + documented as of this encounter Results XR Knee Left 1 - 2 Vw (07/04/2018 9:10 AM PDT) + + | Specimen | + + | | + + + + + | Narrative | Performed At | + + + | XR KNEE LEFT 1 - 2 VW 07/04/2018 9:10 AM HISTORY: BILATERAL KNEE | [facility] | | PAIN. COMPARISON: 06/01/2018 FINDINGS: There are no acute | | | osseous findings. Moderate right lateral compartment osteophytosis | | | and subtle articular surface cartilage irregularity. Bilateral knee | | | meniscal chondrocalcinosis. Mild diffuse osteopenia. Leg length | | | discrepancy with differing height of bilateral femur and tibial | | | osseous structures. Bone mineralization is normal. There is no | | | significant effusion. Soft tissue structures are unremarkable. | | | IMPRESSION - Bilateral knee meniscal chondrocalcinosis. Moderate | | | right lateral compartment osteoarthritis, suspect a prior right | | | lateral tibial plateau fracture. Otherwise, tricompartmental | | | prominently mild osteoarthritis. Leg length discrepancy with | | | differing heights of bilateral femur and tibial osseous structures. | | | Dictated and Signed by: Wm Batres MD Electronically | | | signed: 07/04/2018 9:56 AM | | + + + + + | Procedure Note | + + | Meet, Rad Results In - 07/04/2018 9:59 AM PDT XR KNEE LEFT 1 - 2 VW 07/04/2018 9:10 AM | | | | HISTORY: BILATERAL KNEE PAIN. | | | | COMPARISON: 06/01/2018 | | | | FINDINGS: | | There are no acute osseous findings. Moderate right lateral compartment | | osteophytosis and subtle articular surface cartilage irregularity. Bilateral | | knee meniscal chondrocalcinosis. Mild diffuse osteopenia. Leg length discrepancy | | with differing height of bilateral femur and tibial osseous structures. Bone | | mineralization is normal. There is no significant effusion. Soft tissue | | structures are unremarkable. | | | | IMPRESSION - | | Bilateral knee meniscal chondrocalcinosis. | | | | Moderate right lateral compartment osteoarthritis, suspect a prior right lateral | | tibial plateau fracture. | | | | Otherwise, tricompartmental prominently mild osteoarthritis. | | | | Leg length discrepancy with differing heights of bilateral femur and tibial | | osseous structures. | | | | Dictated and Signed by: Wm Batres MD | | Electronically signed: 07/04/2018 9:56 AM | + + + +---------+ + + | Performing | Address | City/State/Zipcode | Phone Number | | Organization | | | | + +---------+ + + | [facility] | | | | + +---------+ + + documented in this encounter Visit Diagnoses + + | Diagnosis | + + | Osteoarthritis of both knees, unspecified osteoarthritis type - Primary | + + | Chondrocalcinosis of knee, left | + + | Chondrocalcinosis of knee, right | + + documented in this encounter
--- OUTSIDE RECORDS SUMMARY | ~2019-08-23 | XMS | Encounter Summary ---
Demographics + + + | Address | [address] | | | [place] [address] | + + + | Home Phone | | + + + | Preferred Language | Unknown | + + + | Marital Status | Single | + + + | Buddhist Affiliation | CHURCH | + + + | Race | [...] Team Providers + +------+ + | Care Side Laster Staple Name | Role | Phone | + +------+ + | Trevin Delacruz MD | PCP | | + +------+ + Encounter Details +--------+ + + + + | Date | Type | Department | Care Team | Description | +--------+ + + + + | 08/26/ | Hospital | Radiology/Imaging | | | | 2014 | Encounter | Lab at [facility] [address] | | | | | | Martín Fitzpatrick Mailcode: | | | | | | [id number] | | | | | | [facility], | | | | | | [address] | | | | | | [place], [place] | | | | | | [address] | | | | | | [phone] | | | +--------+ + + + [...] 2020 | | Oncology | Martín Fitz[address] [place], | | | | | | [place] [address] | | +--------+ + + + + documented as of this encounter Visit Diagnoses + + | Diagnosis | + + | LAP-BAND surgery status Bariatric surgery status | + + | GERD (gastroesophageal reflux disease) Esophageal reflux | + + documented in this encounter"
--- OUTSIDE RECORDS SUMMARY | ~2019-08-23 | XMS | Encounter Summary ---
Demographics + + + | Address | [address] | | | [place] [address] | + + + | Home Phone | | + + + | Preferred Language | Unknown | + + + | Marital Status | Single | + + + | Mosque Affiliation | MANDAEN | + + + | Race | [...] Providers + +------+ + | Care Alteration Tailor Apprentice Name | Role | Phone | + +------+ + | Rudolph Lee MD | PCP | | + +------+ + Encounter Details +--------+ + + + + | Date | Type | Department | Care Team | Description | +--------+ + + + + | 12/17/ | Office | | Note, Outpatient | [...] as of this encounter Progress Notes Interface, Lab Director In - 09/14/2005 1:09 AM PDTCLINIC DATE: 12/17/2002 DIGESTIVE [facility] TELEPHONE CONVERSATION SUBJECTIVE: Mr. Marquez contacted the Surgery office with complaints regarding some incisional pain that he has been having since working out last week. He notes the pain is present with movement and when he eats. It is made somewhat better with ibuprofen which he is taking 200 mg twice daily. In assessing his pain, he notes that it is not tender to palpation along the incision, and he notes no bulges, redness, or warmth. He has not run any fevers. He has however had difficulty swallowing meats such as beef and chicken. He feels that this has been getting worse, and he would like to have a barium swallow done to see if he is developing a stricture. His surgery is nearly 11 months ago, and he has had no improvement in his ability to swallow, and in fact believes that it may be getting worse. The pain that he has been feeling in his incision is made worse while he is eating. IMPRESSION: The pain that he is experiencing is likely to be musculoskeletal strain given its proximity to the activity change. I asked him to ice the area and limit his ibuprofen intake due to the increased risk for gastrointestinal bleeding. There is also some concern that some of this pain may be related to a stricture, particularly in light of his continued intolerance to certain proteins. He is scheduled for an esophagram tomorrow at 3 o'clock which was the most convenient time for him. He is instructed to be NPO from the midnight prior as per Radiology, though I have allowed him to have some food and fluid with his pills in order to decrease the gastric irritation. He will follow up in clinic as scheduled next month for review of these results. Jacqueline Silva. / VICTOR M [id number] / [id number] / [id number] / Tdocumented in this encounter Plan of Treatment +--------+ + + + + | Date | Type | Specialty | Care Team | Description | +--------+ + + + + | 10/31/ | Appointment | Hematology & | Onc, [address] | | | 2020 | | Oncology | [place], | | | | | | [place] [address] | | +--------+ + + + + documented as of this encounter Visit Diagnoses Not on filedocumented in this encounter"
--- OUTSIDE RECORDS SUMMARY | ~2019-08-23 | XMS | Encounter Summary ---
Demographics + + + | Address | [address] | | | [place] [address] | + + + | Home Phone | | + + + | Preferred Language | Unknown | + + + | Marital Status | | + + + | Congregation Affiliation | Unknown | + + + | Race | Unknown | + + + | Ethnic Group | Unknown | + + + Author + + + | Author | [facility] | | | and Jadenana | + + + | Organization | [facility] | | | and [...] | | | | | [place] [address] | | + + + + + Care Team Providers + +------+ + | Care Nuclear Equipment Design Engineer Name | Role | Phone | + +------+ + | Lexie Cagle | PCP | | | TSA SCREENER | | | + +------+ + Reason for Visit + + + | Reason | Comments | + + + | Follow-up | | + + + | Neurogenic Bladder | | + + + Encounter Details +--------+---------+ + + + | Date | Type | Department | Care Team | Description | +--------+---------+ + + + | 06/07/ | Office | [facility] | Michael Fernandes | Pyuria (Primary Dx); | | 2018 | Visit | [address] | MD Yaw [address] | Neurogenic bladder; | | | | [place] | [place] | Urinary | | | | [id number] | [id number] | incontinence without | | | | [phone] | | sensory awareness | +--------+---------+ + + + Social History [...] + + + | Blood Pressure | 122/60 | 06/07/2018 1:52 PM | | | | | PDT [...] + + + + | Weight | 90.5 kg (199 lb 8.3 | 06/07/2018 1:52 PM | | | | oz) | PDT | | + + + + + | Height | 177.8 cm (5' 10") | 06/07/2018 1:52 PM | | | | | PDT | | + + + + + | Body Mass Index | 28.63 | 06/07/2018 1:52 PM | | | | | PDT | | + + + + + documented in this encounter Patient Instructions Patient Instructions Manju Mccartney RN - 06/07/2018 1:30 PM PDTPreoperative Instructi ons Your surgery with Dr. Fernandes has been scheduled for June 20, 2018 at 10:45 AM at [facility]. Please report to the [facility] no later than 9:15 AM. REMEMBER: NOTHING TO EAT OR DRINK AFTER MIDNIGHT June 19, 2018. Take all of your usual medications w ith a sip of water. NO ASPIRIN OR ASPIRIN PRODUCTS, NO FISH OIL OR VITAMIN E FOR ONE WEEK PRIOR TO SURGERY. Ty lenol (acetaminophen) and ibuprofen is OK. You will need someone to drive you home after surgery. Call us at [phone] with any questions. [x] Pain management booklet provided to patient. documented in this encounter Progress Notes Michael Fernandes MD - 06/07/2018 1:30 PM PDTFormatting of this note might be differ ent from the original. Chief Complaint Patient presents with Follow-up Neurogenic Bladder HPI Mian Marquez is a 68 y.o. male patient of Lexie Cagle APRN here today for a follow u p for neurogenic bladder. MS-diagnosed in 1997, symptoms have been relatively stable with the exception of the bladde r History of neurogenic bladder detrusor instability with impaired contractility ISD Nephrolithiasis Patient recently underwent injection of 300 units of bladder Botox and urethral bulking age nts. This appeared only mildly improved His urinary incontinence. Patient states he is al most wet entire day. Denies any fever chills other flulike symptoms. He denies any dysuri a or gross hematuria Assessment Mian was seen today for follow-up and neurogenic bladder. Diagnoses and all orders for this visit: Pyuria - POCT Urinalysis Dipstick Automated - Urinalysis, Microscopic Only, with Culture if Indicated Neurogenic bladder Urinary incontinence without sensory awareness Plan We discussed suprapubic tube placement in detail. Patient may still leak from the penis an d may require anticholinergic therapy. We discussed risks including incontinence, pain, ble eding, infection, injury to the bowel, fistula, hernia and need for further procedures. 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 Multiple sclerosis (HCC) Neurogenic bladder Past Surgical History Past Surgical History: Procedure Laterality Date BACK SURGERY nerve stimulators CYSTOSCOPY N/A 04/19/2018 Procedure: Cystoscopy, bladder Botox, injection of urethral bulking agent; Surgeon: Gina Fernandes MD; Location: [facility] MAIN OR GASTRIC BYPASS SURGERY 2001 2 x KNEE SURGERY Bilateral LAP BAND 2010 urinary stimulator 2006 Family History: Family History Problem Relation Age of Onset Cancer Mother Cancer Father bone cancer Prostate cancer Neg Hx Social History: Social History Social History Marital status: Single Spouse name: N/A Number of children: N/A Years of education: N/A Social History Main Topics Smoking status: Never Smoker Smokeless tobacco: Never Used Alcohol use No Drug use: No Sexual activity: Yes Partners: Female control/ protection: Condom Other Topics Concern None Social History Narrative None No Known Allergies Medications: Current Outpatient Prescriptions: celecoxib (CELEBREX) 100 mg capsule, Take 1 capsule by mouth Twice daily as needed fo r Pain., Disp: 60 capsule, Rfl: 2 cyanocobalamin (VITAMIN B-12) 1,000 mcg/mL injection, 1,000 mcg., Disp: , Rfl: DULoxetine (CYMBALTA) [address] capsule, Take 60 mg by mouth Daily., Disp: , Rfl: Ergocalciferol (VITAMIN D2) 2000 units TABS, Vitamin D2 50,000 unit capsule, Disp: , R fl: OXYBUTYNIN CHLORIDE PO, Take 1 tablet by mouth. Patient taking 15 mg daily, Disp: , Rf l: rOPINIRole (REQUIP) 2 MG tablet, Take 1 tablet by mouth nightly., Disp: 90 tablet, Rfl : 1 traZODone (DESYREL) 100 mg tablet, Take 1 tablet by mouth nightly., Disp: 30 tablet, R fl: 0 Review of Systems Constitutional: Negative for chills and fever. Respiratory: Negative for cough and wheezing. Cardiovascular: Negative for chest pain. Gastrointestinal: Negative for nausea and vomiting. Objective BP 122/60 | Ht 1.778 m (5' 10") | Wt 90.5 kg (199 lb 8.3 oz) | BMI 28.63 kg/m General Appearance: Alert, cooperative, no distress, appears stated age Head: Normocephalic, without obvious abnormality, atraumatic Lungs: Regular, unlabored breathing MS No CVA tenderness, no spinal tenderness, no scoliosis present Abdomen: Soft, non-tender, no masses Extremities: Extremities normal, atraumatic, no cyanosis, clubbing, or edema Pulses: Radial pulses 2+ and symmetric Skin: Warm and dry Lymph nodes: Cervical and supraclavicular nodes normal Neurologic: Gait normal, CN 2-12 grossly intact; Strength decreased in lower extremeties Data: Results for orders placed or performed in visit on 06/07/18 Urinalysis, Microscopic Only, with Culture if Indicated Result Value Ref Range WBC UA 5-10 (A) 0 - 2 /HPF RBC UA 0-2 0 - 2 /HPF SQUAMOUS EPITHELIAL UA 0-2 0 - 2 /LPF BACTERIA UA 4+ (A) Negative /HPF HYALINE CASTS UA 0-2 0 - 2 /LPF URINE COMMENT Urine Culture Not Indicated POCT Urinalysis Dipstick Automated Result Value Ref Range Color, UA, POC Dark Yellow (A) Yellow, Light Yellow Clarity, UA, POC Slightly Cloudy Glucose, UA, POC Negative Negative Bilirubin, UA, POC Negative Negative Ketones, UA, POC Negative Negative, 100 mg/dL Specific [place], UA, POC 1.020 1.001 - 1.030 Blood, UA, POC Negative Negative pH, UA, POC 5.5 5.0, 6.0, 7.0, 8.0, 5.5, 6.5, 7.5 Protein, UA, POC Negative Negative Urobilinogen, UA, POC 0.2 0.2, Negative, Normal, < 0.2 mg/dL, 1 mg/dL, < 0.2 E.U./dl, 1.0 E.U./dL, 0.2 mg/dL Nitrite, UA, POC Positive (A) Negative Leukocyte Esterase, UA, POC Trace (A) Negative Reducing Substances, Urine Ictotest Negative Remark Lab Results Component Value Date CREA 0.84 06/01/2018 Lexie Cagle APRN's notes were reviewed in clinic today. No Follow-up on file.. This document was generated in part using voice recognition software. Frequent wrong word or sound-alike substitutions may have occurred due to the inherent limitations of the voice recognition software. Although I have attempted to edit the content, I have not thoroughly proofread this note, and campus executive director errors are very likely to occur. CC: Lexie Cagle APRN documented in this encounter Plan of Treatment [...] [place] | | | | | | [address] | | | | | | | | +--------+---------+ + + + documented as of this encounter Procedures + +--------+ + + + | Procedure Name | Priori | Date/Time | Associated Diagnosis | Comments | | | ty | | | | + +--------+ + + + | POCT URINALYSIS, | Routin | 06/07/2018 | Pyuria | Results for this | | AUTO WITH CONF | e | 1:54 PM | | procedure are in the | | | | PDT | | results section. | + +--------+ + + + | URINALYSIS, | AMPARO | 06/07/2018 | Pyuria | Results for this | | MICROSCOPIC ONLY, | | 1:53 PM | | procedure are in the | | WITH CULTURE IF | | PDT | | results section. | | INDICATED | | | | | + +--------+ + + + documented in this encounter Results POCT Urinalysis Dipstick Automated (06/07/2018 1:54 PM PDT) + + + + + + | Component | Value | Ref Range | Performed | Pathologist | | | | | At | Signature | + + + + + + | Color, UA, | Dark Yellow (A) | Yellow, Light | | | | POC | | Yellow | | | + + + + + + | Clarity, | Slightly Cloudy | | | | | UA, POC | | | | | + + + + + + | Glucose, | Negative | Negative | | | | UA, POC | | | | | + + + + + + | Bilirubin, | Negative | Negative | | | | UA, POC | | | | | + + + + + + | Ketones, | Negative | Negative, 100 | | | | UA, POC | | mg/dL | | | + + + + + + | Specific | 1.020 | 1.001 - 1.030 | | | | [place], | | | | | | UA, POC | | | | | + + + + + + | Blood, UA, | Negative | Negative | | | | POC | | | | | + + + + + + | pH, UA, POC | 5.5 | 5.0, 6.0, 7.0, | | | | | | 8.0, 5.5, 6.5, | | | | | | 7.5 | | | + + + + + + | Protein, | Negative | Negative | | | | UA, POC | | | | | + + + + + + | Urobilinoge | 0.2 | 0.2, Negative, | | | | n, UA, POC | | Normal, < 0.2 | | | | | | mg/dL, 1 mg/dL, | | | | | | < 0.2 E.U./dl, | | | | | | 1.0 E.U./dL, | | | | | | 0.2 mg/dL | | | + + + + + + | Nitrite, | Positive (A) | Negative | | | | UA, POC | | | | | + + + + + + | Leukocyte | Trace (A) | Negative | | | | Esterase, | | | | | | UA, POC | | | | | + + + + + + | Reducing | | | | | | Substances, | | | | | | Urine | | | | | + + + + + + | Bilirubin | | Negative | | | | Confirmatio | | | | | | n by | | | | | | Ictotest, | | | | | | Urine | | | | | + + + + + + | Remark | | | | | + + + + + + + + | Specimen | + + | Urine | + + Urinalysis, Microscopic Only, with Culture if Indicated (06/07/2018 1:53 PM PDT) + + + + + + | Component | Value | Ref Range | Performed | Pathologist | | | | | At | Signature | + + + + + + | White Blood | 5-10 (A) | 0 - 2 /HPF | [facility] | | | Cells, | | | [facility] | | | Urine | | | MEDICAL | | | | | | CENTER - | | | | | | LABORATORY | | + + + + + + | Red Blood | 0-2 | 0 - 2 /HPF | [facility] | | | Cells, | | | [facility] | | | Urine | | | MEDICAL | | | | | | CENTER - | | | | | | LABORATORY | | + + + + + + | Squamous | 0-2 | 0 - 2 /LPF | [facility] | | | Epithelial | | | [facility] | | | Cells, | | | MEDICAL | | | Urine | | | CENTER - | | | | | | LABORATORY | | + + + + + + | Bacteria, | 4+ (A) | Negative /HPF | [facility] | | | Urine | | | [facility] | | | | | | MEDICAL | | | | | | CENTER - | | | | | | LABORATORY | | + + + + + + | Hyaline | 0-2 | 0 - 2 /LPF | [facility] | | | Casts, | | | [facility] | | | Urine | | | MEDICAL | | | | | | CENTER - | | | | | | LABORATORY | | + + + + + + | Urine | Urine Culture Not | | [facility] | | | Comment | Indicated | | [facility] | | | | | | [facility] | | | | | | CENTER - | | | | | | LABORATORY | | + + + + + + + + | Specimen | + + | Urine - Urine | | specimen obtained by | | clean catch | | procedure (specimen) | + + + + + + + | Performing | Address | City/State/Zipcode | Phone Number | | Organization | | | | + + + + + | [facility] | [address] | [place] | [phone] | | [facility] | | [address] | | | - LABORATORY | | | | + + + + + documented in this encounter Visit Diagnoses + + | Diagnosis | + + | Pyuria - Primary Other nonspecific finding on examination of urine | + + | Neurogenic bladder Neurogenic bladder, NOS | + + | Urinary incontinence without sensory awareness Incontinence without sensory awareness | + + documented in this encounter
--- OUTSIDE RECORDS SUMMARY | ~2019-08-23 | XMS | Encounter Summary ---
Demographics + + + | Address | [address] | | | [place] [address] | + + + | Home Phone | | + + + | Preferred Language | Unknown | + + + | Marital Status | | + + + | Protestant Affiliation | Unknown | + + + | Race | Unknown | + + + | Ethnic Group | Unknown | + + + Author + + + | Author | [facility] | | | and Jadenana | + + + | Organization | [facility]erged [facility] | | | and Jadenana [...] | | | | | [place] [address] | | + + + + + Care Team Providers + +------+ + | Care Special Service Officer Name | Role | Phone | + +------+ + | Lexie Cagle | PCP | | | NEWSPAPER DISTRIBUTOR SUPERVISOR | | | + +------+ + Reason for Referral Diagnostic/Screening (Emergency) +--------+--------+ + + + + | Status | Reason | Specialty | Diagnoses / | Referred By | Referred To | | | | | Procedures | Contact | Contact | +--------+--------+ + + + + | Closed | | Radiology | Diagnoses | Cagle, | [facility] | | | | | Swelling of | Lexie | Ultrasound | | | | | right lower | Arleen, | [address] | | | | | extremity | NEWSPAPER DISTRIBUTOR SUPERVISOR [address] | [place], | | | | | Paroxysmal | [address] | [place] | | | | | atrial | [place], | [address] | | | | | fibrillation | [place] [address] | Phone: | | | | | ([facility]) | Phone: | [phone] | | | | | Procedures | [phone] | Fax: | | | | | VAS Lower | Fax: | [phone] | | | | | Extremity | [phone] | | | | | | Venous Right | | | +--------+--------+ + + + + Evaluate & Treat (Routine) +--------+ + + + + + | Status | Reason | Specialty | Diagnoses / | Referred By | Referred To | | | | | Procedures | Contact | Contact | +--------+ + + + + + | Closed | Specialty | Sleep | Diagnoses | Cagle, | [facility] | | | Services | Medicine | CHRISTEN | Lexie | [facility] | | | Required | | (obstructive | Arleen, | Disorder [address] | | | | | sleep | NEWSPAPER DISTRIBUTOR SUPERVISOR [address] | [address] | | | | | apnea) | [address] | [place], | | | | | | [place], | [place] [address] | | | | | | [place] [address] | Phone: | | | | | | Phone: | [phone] | | | | | | [phone] | Fax: | | | | | | Fax: | [phone] | | | | | | [phone] | | +--------+ + + + + + Reason for Visit + + + | Reason | Comments | + + + | Leg Swelling | | + + + | Fatigue | | + + + Encounter Details +--------+---------+ + + + | Date | Type | Department | Care Team | Description | +--------+---------+ + + + | 09/12/ | Office | [facility] | Lexie Cagle | Chronic fatigue | | 2019 | Visit | MEDICINE [address] | SOFIA [address] | disorder (Primary | | | | Street [place] | [address] [place] | Dx); Persistent | | | | [place] [address] | [place] [address] | depressive disorder; | | | | [phone] | [phone] | Vitamin D | | | | | | deficiency; | | | | | | Hypoglycemia; | | | | | | Multiple sclerosis | | | | | | (HCC); CHRISTEN | | | | | | (obstructive sleep | | | | | | apnea); Poor | | | | | | nutrition; Swelling | | | | | | of right lower | | | | | | extremity; | | | | | | Paroxysmal atrial | | | | | | fibrillation (HCC); | | | | | | Deep vein thrombosis | | | | | | (DVT) of popliteal | | | | | | vein of right lower | | | | | | extremity, | | | | | | unspecified | | | | | | chronicity (HCC) | +--------+---------+ + + + Social History [...] + + + | Blood Pressure | 118/62 | 09/12/2018 8:25 AM | | | | | PDT | | + + + + + | Pulse | 89 | 09/12/2018 8:25 AM | | | | | PDT | | + + + + + | Temperature | 36.1 C (97 F) | 09/12/2018 8:25 AM | | | | | PDT | | + + + + + | Respiratory Rate | 16 | 09/12/2018 8:25 AM | | | | | PDT | | + + + + + | Oxygen Saturation | 99% | 09/12/2018 8:25 AM | | | | | PDT | | + + + + + | Inhaled Oxygen | - | - | | | Concentration | | | | + + + + + | Weight | 88.9 kg (195 lb 15.8 | 09/12/2018 8:25 AM | | | | oz) | PDT | | + + + + + | Height | 177.8 cm (5' 10") | 09/12/2018 8:25 AM | | | | | PDT | | + + + + + | Body Mass Index | 28.12 | 09/12/2018 8:25 AM | | | | | PDT | | + + + + + documented in this encounter Patient Instructions Patient Instructions Lexie Cagle, SOFIA - 09/12/2018 8:30 AM PDTRestart amanta dine 100mg daily for 7 days, then add 100mg twice a day. Increase your nutritional drink (boost, ensure) to 4-6 times per day at least Follow up with psych to discuss ECTElectronically signed by SOFIA Sky t 09/12/2018 8:57 AM PDT documented in this encounter Progress Notes Lexie Cagle, SOFIA - 09/12/2018 8:30 AM PDTFormatting of this note might be di fferent from the original. Subjective: Mian Marquez is a 68 y.o. male patient accompanied by his daughter here for Leg Swelling an d Fatigue Unfortunately, Mian continues to decline. He reports that he has no drive and no energy. H is urostomy bag is still very distressing for him and they are meeting with urology today to discuss going back to straight cathing regularly instead. He states that if he has to cathy nue with the leg bag, he doesn't want to keep living. Has not been taking amantadine regular ly. Still eats very little. He drinks about 10 cups of coffee per day. He does occasionally sup plement with ensure, but not regularly. He admits that he worries about gaining back too muc h weight if he eats/drinks too much. He recently saw his psychiatrist but no adjustments were made. His daughter reports that hi s mood is lower. Would like a referral to sleep medicine to go back on CPAP as he has noticed that he feels more relaxed and better overall when he uses the machine at night. He has not had a working CPAP in greater than 3 years. Reports right leg swelling for about 1 month without any pain. He has had a DVT in the past and states that it feels different. No other major trauma or injury. Outpatient Encounter Medications as of 09/12/2018 Medication Sig Dispense Refill amantadine (SYMMETREL) 100 mg capsule Take by mouth. cephalexin (KEFLEX) 500 mg capsule Take 500 mg by mouth. cholecalciferol (CHOLECALCIFEROL) 5000 units TABS Take 5,000 Units by mouth Daily. DULoxetine (CYMBALTA) [address] capsule Take 60 mg by mouth Daily. Nutritional Supplements (NUTRITIONAL DRINK) LIQD Take 237 mLs by mouth 6 times daily. 1 80 Can 5 oxybutynin (DITROPAN-XL) 10 MG 24 hr tablet Take 1 tablet by mouth Daily. 30 tablet 3 oxyCODONE (ROXICODONE) 5 mg tablet Take 5-10 mg by mouth as needed. rOPINIRole (REQUIP) 2 MG tablet Take 1 tablet by mouth nightly. 90 tablet 1 traZODone (DESYREL) 100 mg tablet Take 1 tablet by mouth nightly. 30 tablet 0 No facility-administered encounter medications on file as of 09/12/2018. Immunization History Administered Date(s) Administered INFLUENZA 65 Y OR >, TRIVALENT HIGH-DOSE 03/27/2015 INFLUENZA PF QUAD(PED/ADOL/ADULT),PSKT or VIAL 12/10/2015, 01/26/2017 INFLUENZA, UNSPECIFIED FORMULATION 03/11/2014, 12/26/2015, 03/27/2017 PNEUMOCOCCAL CONJUGATE 13-VALENT (PCV13) 03/27/2014, 12/26/2015, 06/29/2017 PNEUMOCOCCAL POLYSACCHARIDE 23-VALENT (PPSV23) 03/27/2014, 09/01/2015 PNEUMOCOCCAL, UNSPECIFIED FORMULATION 03/27/2014 Allergies Allergen Reactions Adhesive & Tape Rash,Other (See Comments) Paper tape OK Intolerance No active intolerances/contraindications Past Medical History: Diagnosis Date Hypertension patient denies ever having HTN; states had a one time occurance of A-fib 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 Multiple sclerosis (HCC) Neurogenic bladder Sleep apnea not using CPAP Past Surgical History: Procedure Laterality Date BACK SURGERY nerve stimulators BLADDER SURGERY N/A 06/20/2018 Procedure: Cystoscopy, suprapubic catheter placement; Surgeon: Michael Fernandes MD; Location: [facility] MAIN OR CHOLECYCTOSTOMY CYSTOSCOPY N/A 04/19/2018 Procedure: Cystoscopy, bladder Botox, injection of urethral bulking agent; Surgeon: Gina Fernandes MD; Location: [facility] MAIN OR GASTRIC BYPASS SURGERY 2001 2 x KNEE SURGERY Bilateral LAP BAND 2010 urinary stimulator 2006 Family History Problem Relation Age of Onset Cancer Mother Cancer Father bone cancer Prostate cancer Neg Hx Social History Socioeconomic History Marital status: Single [...] Narrative Not on file Review of Systems Constitutional: Positive for malaise/fatigue and weight loss. Cardiovascular: Positive for leg swelling. Neurological: Positive for dizziness (with hypoglycemic episodes). Endo/Heme/Allergies: Negative for polydipsia. Psychiatric/Behavioral: Positive for depression. Negative for substance abuse and suicidal ideas. The patient has insomnia. Objective: BP 118/62 | Pulse 89 | Temp 36.1 C (97 F) (Temporal) | Resp 16 | Ht 1.778 m (5' 10" ) | Wt 88.9 kg (195 lb 15.8 oz) | SpO2 99% | BMI 28.12 kg/m Physical Exam Constitutional: He is oriented to person, place, and time. He appears unhealthy. Non-toxic appearance. HENT: Head: Normocephalic. Pulmonary/Chest: Effort normal. Musculoskeletal: He exhibits edema (non pitting 1+ edema with mild erythema affecting entir e right leg. homans sign negative, no tenderness along deep veins). Neurological: He is alert and oriented to person, place, and time. Skin: Skin is warm and dry. Psychiatric: His affect is blunt. He exhibits a depressed mood. He expresses no suicidal id eation. He expresses no suicidal plans. Disheveled, with decreased grooming from baseline. Appears very fatigued with dark rings un ileana eyes. Assessment/Plan: Assessment: 1. Chronic fatigue disorder 2. Persistent depressive disorder 3. Vitamin D deficiency 4. Hypoglycemia 5. Multiple sclerosis (HCC) 6. CHRISTEN (obstructive sleep apnea) 7. Poor nutrition 8. Swelling of right lower extremity 9. Paroxysmal atrial fibrillation (HCC) Plan: 1. Will obtain stat doppler of right lower extremity given his h/o afib and dvt. 2. Referral to sleep medicine entered. 3. Discussed nutrition at length. His po intake is very low. Advised at least 4-6 ensure pe r day and to make every bit/drink count. Avoid intake without nutritional value. Focus on hi gh caloric or densely nutritious foods and beverages with some nutritional value. 4. Emphasized adherence to amantadine. 5. Follow up as family with psych for further discussion of treatment. 6. Discuss urostomy concerns with urology later today. Orders Placed This Encounter Procedures VAS Lower Extremity Venous Right Referral to [facility] [place] Reviewed signs and symptoms that would warrant emergent evaluation. Patient verbalized unde rstanding. Return in about 1 month (around 10/10/2018). Patient understands, accepts, and agrees with this plan. Over 25 minuntes spent in face to face time with this patient today. > 50% of time veterans rehabilitation counselor ing regarding the listed conditions, options for treatment, and possible risks, and coordina ting care. Please see assessment and plan for further details Lexie Cagle, DNP, NEWSPAPER DISTRIBUTOR SUPERVISOR, AGNP-C Addendum: received call report on US from analisa D aSilva. US positive for nonocclusive thrombu s of the right popliteal vein. Requested pt be sent back to my office to discuss starting on DOAC. Addendum #2: I spoke with Mian and his daughter about the results of the doppler and next steps at length. He was previously on Eliquis, but this was transitioned to warfarin due to cost issues. His anticoagulation was discontinued about 3 months ago by his lpn medical assistant. Pt was provided with #48 caps of Pradaxa 150 mg with samples and prescription was sent to his pharmacy. Calculated creatinine clearance is 108.77, full dose is appropriate. If we are casi ble to find a DOAC that is affordable, we will transition him to warfarin. At this time, iris en his distance from the clinic and difficulty with transportation, would prefer the DOAC du e to the decreased need for regular lab tests. Pt and daughter are agreeable to plan. They w ill notify me if the cost is too high. documented in this encounter Plan of Treatment +--------+---------+ + + + | Date | Type | Specialty | Care Team | Description | +--------+---------+ + + + | 11/12/ Office | Sleep Medicine | Laith Sheffield PA | | | 2019 | Visit | | [address] | | | | | | [place] | | | | | | [address] | | | | | | | | +--------+---------+ + + + + + +--------+ + + | Name | Type | Priori | Associated Diagnoses | Order Schedule | | | | ty | | | + + +--------+ + + | Referral to [facility] | Outpatient | Routin | CHRISTEN (obstructive | Ordered: 09/12/2018 | | [place] [facility] | Referral | e | sleep apnea) | | | Disorders | | | | | + + +--------+ + + documented as of this encounter Results VAS Lower Extremity Venous Right (09/12/2018 11:40 AM PDT) + + | Specimen | + + | | + + + + + | Narrative | Performed At | + + + | VAS LOWER EXTREMITY VENOUS RIGHT 09/12/2018 11:04 AM HISTORY: | [facility] | | right lower leg swelling, h/o dvt. COMPARISON: None. PROTOCOL: | | | Moser scale and Doppler images of the lower extremity veins. | | | FINDINGS: The right common femoral, greater saphenous, profunda | | | femoral, and superficial femoral veins demonstrate normal flow, | | | augmentation, and compression. Nonocclusive thrombus is noted in the | | | right popliteal vein. Nonspecific prominence of the collateral veins | | | at the level of the common femoral vein and greater saphenous veins. | | | IMPRESSION - Nonocclusive deep venous thrombus is noted in the | | | right popliteal vein. The preliminary findings were conveyed to | | | the ordering provider, by the windshield technician, immediately following the | | | exam. Dictated and Signed by: Wm Batres MD Electronically | | | signed: 09/12/2018 12:00 PM | | + + + + + | Procedure Note | + + | Meet, Rad Results In - 09/12/2018 12:03 PM PDT VAS LOWER EXTREMITY VENOUS RIGHT | | 09/12/2018 11:04 AM HISTORY: right lower leg swelling, h/o dvt.COMPARISON: None.PROTOCOL: | | Moser scale and Doppler images of the lower extremity veins.FINDINGS:The right common | | femoral, greater saphenous, profunda femoral, and superficialfemoral veins demonstrate | | normal flow, augmentation, and compression.Nonocclusive thrombus is noted in the right | | popliteal vein. Nonspecificprominence of the collateral veins at the level of the common | | femoral vein andgreater saphenous veins.IMPRESSION -Nonocclusive deep venous thrombus | | is noted in the right popliteal vein.The preliminary findings were conveyed to the | | ordering provider, by thesonographer, immediately following the exam.Dictated and Signed | | by: Wm Batres MD Electronically signed: 09/12/2018 12:00 PM | |femoral veins demonstrate normal flow, augmentation, and compression. | |Nonocclusive thrombus is noted in the right popliteal vein. Nonspecific | |prominence of the collateral veins at the level of the common femoral vein and | |greater saphenous veins. | | | | | |IMPRESSION - | |Nonocclusive deep venous thrombus is noted in the right popliteal vein. | | | |The preliminary findings were conveyed to the ordering provider, by the | |windshield technician, immediately following the exam. | | | |Dictated and Signed by: Wm Batres MD | | Electronically signed: 09/12/2018 12:00 PM | + + + +---------+ + + | Performing | Address | City/State/Zipcode | Phone Number | | Organization | | | | + +---------+ + + | [facility] | | | | + +---------+ + + documented in this encounter Visit Diagnoses + + | Diagnosis | + + | Chronic fatigue disorder - Primary Chronic fatigue syndrome | + + | Persistent depressive disorder | + + | Vitamin D deficiency Unspecified vitamin D deficiency | + + | Hypoglycemia Hypoglycemia, unspecified | + + | Multiple sclerosis (HCC) Multiple sclerosis | + + | CHRISTEN (obstructive sleep apnea) Obstructive sleep apnea (adult) (pediatric) | + + | Poor nutrition Unspecified protein-calorie malnutrition | + + | Swelling of right lower extremity Swelling of limb | + + | Paroxysmal atrial fibrillation (HCC) Atrial fibrillation | + + | Deep vein thrombosis (DVT) of popliteal vein of right lower extremity, unspecified | | chronicity (HCC) | + + documented in this encounter
--- OUTSIDE RECORDS SUMMARY | ~2019-08-23 | XMS | Encounter Summary ---
Demographics + + + | Address | [address] | | | [place] [address] | + + + | Home Phone | | + + + | Preferred Language | Unknown | + + + | Marital Status | Single | + + + | Jain Affiliation | WORSHIP | + + + | Race | White | + + + | Ethnic Group | Not or | + + + Author + + + | Author | [facility] | + + + | Organization | [facility] | + + + | Address | Unknown | + + + | Phone | Unavailable | + + + Support + + +---------+ + | Name | Relationship | Address | Phone | + + +---------+ + | Theodore Marquez | ECON | Unknown | | + + +---------+ + Care Team Providers + +------+ + | Care Counter Caser Name | Role | Phone | + +------+ + | Trevin Delacruz MD | PCP | | + +------+ + Encounter Details +--------+ + + + + | Date | Type | Department | Care Team | Description | +--------+ + + + + | 11/10/ | Hospital | [facility] | Nurse, G[address] | | | 2015 | Encounter | [facility] [address] [facility] | | | | | [address] [place] Mailcode: | [address] [facility] [place] | | | | | [address] | [address] | | | | | [facility], | | | | | | [address] | | | | | | [facility] [place] | | | | | | [address] | | | | | | [phone] | | | +--------+ + + + [...] | | | | | | [place] [address] | | +--------+ + + + + documented as of this encounter Visit Diagnoses Not on filedocumented in this encounter"
--- OUTSIDE RECORDS SUMMARY | ~2019-08-23 | XMS | Encounter Summary ---
Demographics + + + | Address | [address] | | | [place] [address] | + + + | Home Phone | | + + + | Preferred Language | Unknown | + + + | Marital Status | Single | + + + | Adventist Affiliation | CAODAISM | + + + | Race | White | + + + | Ethnic Group | Not or | + + + Author + + + | Author | [facility] | + + + | Organization | [facility] | + + + | Address | Unknown | + + + | Phone | Unavailable | + + + Support + + +---------+ + | Name | Relationship | Address | Phone | + + +---------+ + | Theodore Marquez | ECON | Unknown | | + + +---------+ + Care Team Providers + +------+ + | Care Juvenile Corrections Officer Name | Role | Phone | + +------+ + | Jose Hameed MD | PCP | | + +------+ + Reason for Visit +--------+ + | Reason | Comments | +--------+ + | Other | MRI Order | +--------+ + Encounter Details +--------+ + + + + | Date | Type | Department | Care Team | Description | +--------+ + + + + | 02/11/ | Documentati | Neurology at | [place], | Other (MRI Order) | | 2019 | on | [facility] & | Shiloh Mukherjee MD | | | | | Healing [address] | [address] | | | | | Ave Mailcode: [address] | [place], [place] | | | | | [facility] | [address] | | | | | and [place], | [phone] | | | | [facility] | | | | | | Floor [place], [place] | | | | | | [address] | | | | | | [phone] | | | +--------+ + + + [...] | | | | | | [place] [address] | | +--------+ + + + + documented as of this encounter Visit Diagnoses Not on filedocumented in this encounter"
--- OUTSIDE RECORDS SUMMARY | ~2019-08-23 | XMS | Encounter Summary ---
Demographics + + + | Address | [address] | | | [place] [address] | + + + | Home Phone | | + + + | Preferred Language | Unknown | + + + | Marital Status | | + + + | Holiness Affiliation | Unknown | + + + | Race | Unknown | + + + | Ethnic Group | Unknown | + + + Author + + + | Author | [facility] | | | and Jadenana | + + + | Organization | [facility] | | | and Jadenana [...] | | | | | [place] [address] | | + + + + + Care Team Providers + +------+ + | Care Machinist Helper Name | Role | Phone | + +------+ + | Lexie Cagle | PCP | | | PEDIATRIC DERMATOLOGIST | | | + +------+ + Reason for Visit + + + | Reason | Comments | + + + | Appointment Question | | + + + Encounter Details +--------+ + + + + | Date | Type | Department | Care Team | Description | +--------+ + + + + | 12/17/ | Telephone | [facility] | Michael Fernandes | Appointment Question | | 2019 | | [address] | MD Yaw [address] | | | | | [place] | PRECIOUS EM | | | | | [address] | [address] | | | | | [phone] | | | +--------+ + + + [...] 11/12/ | Office | Sleep Medicine | [place], Laith D, PA | | | 2019 | Visit | | [address] | | | | | | [place] | | | | | | [address] | | | | | | | | +--------+---------+ + + + documented as of this encounter Visit Diagnoses Not on filedocumented in this encounter"
--- OUTSIDE RECORDS SUMMARY | ~2019-08-23 | XMS | Encounter Summary ---
Demographics + + + | Address | [address] | | | [place] [address] | + + + | Home Phone | | + + + | Preferred Language | Unknown | + + + | Marital Status | Single | + + + | Druze Affiliation | ORTHODOXY | + + + | Race | White | + + + | Ethnic Group | Not or | + + + Author + + + | Author | [facility] | + + + | Organization | [facility] | + + + | Address | Unknown | + + + | Phone | Unavailable | + + + Support + + +---------+ + | Name | Relationship | Address | Phone | + + +---------+ + | Theodore Marquez | ECON | Unknown | | + + +---------+ + Care Team Providers + +------+ + | Care Split Leather Department Supervisor Name | Role | Phone | + [...] | 2014 | on | [facility] [address] | MD | Provider Appt | | | | Kayli Fitzpatrick | | Request) | | | | Mailcode: Center | | | | | | for Health and | | | | | | [facility] [address] | | | | | | [place], [place] | | | | | | [address] | | | | | | [phone] | | | +--------+ + + + [...] | | | | | | [place] [address] | | +--------+ + + + + documented as of this encounter Visit Diagnoses Not on filedocumented in this encounter"
--- OUTSIDE RECORDS SUMMARY | ~2019-08-23 | XMS | Encounter Summary ---
Demographics + + + | Address | [address] | | | [place] [address] | + + + | Home Phone | | + + + | Preferred Language | Unknown | + + + | Marital Status | | + + + | Holiness Affiliation | Unknown | + + + | Race | Unknown | + + + | Ethnic Group | Unknown | + + + Author + + + | Author | [facility] | | | and Jadenana | + + + | Organization | [facility] | | | and [...] | | | | | [place] [address] | | + + + + + Care Team Providers + +------+ + | Care Exchange Teller Name | Role | Phone | + +------+ + | Lexie Cagle | PCP | | | CHEMIST BIOLOGICAL | | | + +------+ + Reason for Visit + + + | Reason | Comments | + + + | Follow-up | | + + + | Neurogenic Bladder | | + + + Encounter Details +--------+---------+ + + + | Date | Type | Department | Care Team | Description | +--------+---------+ + + + | 06/07/ | Office | [facility] | Michael Fernandes | Pyuria (Primary Dx); | | 2018 | Visit | [address] | MD Yaw [address] | Neurogenic bladder; | | | | [place] | [place] | Urinary | | | | [address] | [address] | incontinence without | | | | [phone] | | sensory awareness | +--------+---------+ + [...] June 20, 2018 at 10:[address] [facility]. Please report to the Surgery and Procedure [...] you home after surgery. Call us at [phone] with any questions. [x] Pain management booklet [...] UA, POC Negative Negative, 100 mg/dL Specific [place], UA, POC 1.020 1.001 - 1.030 Blood, [...] have not thoroughly proofread this note, and power electronics engineer errors are very likely to occur. CC: [...] [place] | | | | | | [address] | | | | | | | [...] 1.001 - 1.030 | | | | [place], | | | | | | UA, [...] [address] | [place] | [phone] | | [facility] | | [address] | | | - LABORATORY | | [...]
--- OUTSIDE RECORDS SUMMARY | ~2019-08-23 | XMS | Encounter Summary ---
Demographics + + + | Address | [address] | | | [place] [address] | + + + | Home Phone | | + + + | Preferred Language | Unknown | + + + | Marital Status | | + + + | Anabaptism Affiliation | Unknown | + + + | Race | Unknown | + + + | Ethnic Group | Unknown | + + + Author + + + | Author | [facility] | | | and Jadenana | + + + | Organization | [facility] | | | and [...] | | | | | [place] [address] | | + + + + + Care Team Providers + +------+ + | Care Civil Design Specialist Name | Role | Phone | + +------+ + | Lexie Cagle | PCP | | | FICTION AND NONFICTION AUTHOR | | | + +------+ + Reason for Visit +--------+ + | Reason | Comments | +--------+ + | Other | protime | +--------+ + Encounter Details +--------+ + + + + | Date | Type | Department | Care Team | Description | +--------+ + + + + | 01/10/ | Telephone | [facility] | Lexie Cagle | Other (protime) | | 2019 | | MEDICINE [address] | [address] | | | | | [address] | [address] [facility] | | | | | [place] [address] | [place] [address] | | | | | [phone] | [phone] | | | | | | | [...] [place] | | | | | | [address] | | | | | | | | +--------+---------+ + + + documented as of this encounter Visit Diagnoses Not on filedocumented in this encounter"
--- OUTSIDE RECORDS SUMMARY | ~2019-08-23 | XMS | Encounter Summary ---
Demographics + + + | Address | [address] | | | [place] [address] | + + + | Home Phone | | + + + | Preferred Language | Unknown | + + + | Marital Status | Single | + + + | Buddhism Affiliation | MANDAEISM | + + + [...] Team Providers + +------+ + | Care Network Desktop Support Specialist Name | Role | Phone | [...] | | | | | disease | [place], [place] | [address] | | | | | without | [address] | for Health | | | | | esophagitis | | and Healing, | | | | | Procedures | | [address] | | | | | CONSULT TO | | [place], [place] | | | | | GI PROCEDURE | | [address] | | | | | UNIT: EGD | | Phone: | | | | | CONSULT TO | | [phone] | | | | | GI PROCEDURE | | Fax: | | | | | UNIT: [address] | | [phone] | | | | | [place] | | | | | | | UPPER GI | | | | | | | ENDOSCOPY,BI | | | | | | | [place] | | | | | | | [...] | | | | | without | [place], [place] | floor | | | | | esophagitis | [address] | [place], [place] | | | | | Procedures | Phone: | [address] | | | | | CONSULT TO | [phone] | Phone: | | | | | GI PROCEDURE | Fax: | [phone] | | | | | UNIT: [address] | [phone] | Fax: | | | | | PH | | [phone] | + +--------+ + + + + [...] | 2014 | Visit | Center at [facility] [address] | MD | reflux disease | | | | [address] | | without esophagitis | | | | Mailcode: Center | | (Primary Dx) | | | | for Health and | | | | | | Healing, [address] | | | | | | [place], [place] | | | | | | [address] | | | | | | [phone] | | | +--------+---------+ + + + [...] of Benito en y Gastric Bypass at [facility] in 2006, moved to [place] and [...] Date Lap-band insertion 2011 [facility]/ [place] Benito-en-y gastric bypass 2006 [facility]/ [facility] Back surgery lumbar Cholecystectomy History [...] of Benito en y Gastric Bypass at [facility] in 2005, moved to [place] and [...] CHIEF, BARIATRIC SERVICES [facility] 6TH FLOOR [address] Mailcode: [facility] [place] [address] usebio Kumar MD - 09/25/2014 10:00 AM PDT documented in this en counter Plan of Treatment +--------+ + + + + | Date | Type | Specialty | Care Team | Description | +--------+ + + + + | 10/31/ | Appointment | Hematology & | Onc, Gen [address] | | | 2020 | | Oncology | [address] [place], | | | | | | [place] [address] | | +--------+ + + + + documented as of this encounter Visit Diagnoses + + | Diagnosis | + + | Gastroesophageal reflux disease without esophagitis - Primary Esophageal reflux | + + documented in this encounter
--- OUTSIDE RECORDS SUMMARY | ~2019-08-23 | XMS | Encounter Summary ---
Demographics + + + | Address | [address] | | | [place] [address] | + + + | Home Phone | | + + + | Preferred Language | Unknown | + + + | Marital Status | | + + + | Yarsani Affiliation | Unknown | + + + | Race | Unknown | + + + | Ethnic Group | Unknown | + + + Author + + + | Author | [facility] | | | and Jadenana | + + + | Organization | [facility] | | | and [...] | | | | | [place] [address] | | + + + + + Care Team Providers + +------+ + | Care Stevedore Hold Name | Role | Phone | + +------+ + | Lexie Cagle | PCP | | | SOCIAL WORK PROGRAM COORDINATOR | | | + +------+ + Reason for Visit + + + | Reason | Comments | + + + | Medication Refill | | + + + Encounter Details +--------+--------+ + + + | Date | Type | Department | Care Team | Description | +--------+--------+ + + + | 02/02/ | Refill | [facility] | Lexie Cagle | Medication Refill | | 2019 | | [facility] [address] | [address] | | | | | [facility] | [facility] | | | | | [place] [address] | [place] [address] | | | | | [phone] | [phone] | | | | | | | | +--------+--------+ + [...] 2019 | Visit | | [address] | | | | | | [place] | | | | | | [id number] | | | | | | | | +--------+---------+ + + + documented as of this encounter Visit Diagnoses Not on filedocumented in this encounter"
--- OUTSIDE RECORDS SUMMARY | ~2019-08-23 | XMS | Encounter Summary ---
Demographics + + + | Address | [address] | | | [place] [address] | + + + | Home Phone | | + + + | Preferred Language | Unknown | + + + | Marital Status | | + + + | Lutheran Affiliation | Unknown | + + + | Race | Unknown | + + + | Ethnic Group | Unknown | + + + Author + + + | Author | [facility] | | | and Jadenana | + + + | Organization | [facility] | | | and [place]aden[place] [...] | | | | | [place] [address] | | + + + + + Care Team Providers + +------+ + | Care Citrix Lead Name | Role | Phone | + +------+ + | Lexie Cagle | PCP | | | UTILIZATION REVIEW NURSE | | | + +------+ + Reason for Visit + + + | Reason | Comments | + + + | Results, Critical | | + + + Encounter Details +--------+ + + + + | Date | Type | Department | Care Team | Description | +--------+ + + + + | 10/15/ | Telephone | [facility] | Michael Fernandes | Results, Critical | | 2019 | | [address] | MD [address] | | | | | [place] | [place] | | | | | [address] | [address] | | | | | [phone] | | | +--------+ + + + [...] 2020 | Visit | | [address] | | | | | | [place] | | | | | | [address] | | | | | | | | +--------+---------+ + + + documented as of this encounter Visit Diagnoses Not on filedocumented in this encounter"
--- OUTSIDE RECORDS SUMMARY | ~2019-08-23 | XMS | Encounter Summary ---
Demographics + + + | Address | [address] | | | [place] [address] | + + + | Home Phone | | + + + | Preferred Language | Unknown | + + + | Marital Status | | + + + | Scientology Affiliation | Unknown | + + + | Race | Unknown | + + + | Ethnic Group | Unknown | + + + Author + + + | Author | [facility] | | | and Jadenana | + + + | Organization | [facility] | | | and Jadenana [...] | | | | | [place] [address] | | + + + + + Care Team Providers + +------+ + | Care Ict Business Development Manager Name | Role | Phone | + +------+ + | Lexie Cagle | PCP | | | COMMERCIAL ESTIMATOR | | | + +------+ + Reason for Visit + + + | Reason | Comments | + + + | Lightheaded | | + + + Encounter Details +--------+ + + + + | Date | Type | Department | Care Team | Description | +--------+ + + + + | 11/12/ | Telephone | [facility] | Lexie Cagle | Lightheaded | | 2019 | | MEDICINE [address] | [address] | | | | | [address] | [address] [facility] | | | | | [place] [address] | [place] [address] | | | | | [phone] | [phone] | | | | | | | [...] [place] | | | | | | [address] | | | | | | | | +--------+---------+ + + + documented as of this encounter Visit Diagnoses Not on filedocumented in this encounter"
--- OUTSIDE RECORDS SUMMARY | ~2019-08-23 | XMS | Encounter Summary ---
Demographics + + + | Address | [address] | | | [place] [address] | + + + | Home Phone | | + + + | Preferred Language | Unknown | + + + | Marital Status | Single | + + + | Hinduism Affiliation | YAZIDISM | + + + [...] Team Providers + +------+ + | Care Title I Instructional Assistant Name | Role | Phone | + +------+ + | Jose Hameed MD | PCP | | + +------+ + Encounter Details +--------+--------+ + + + | Date | Type | Department | Care Team | Description | +--------+--------+ + + + | 08/17/ | Travel | | | | | [...] | | | | | | [place] [address] | | +--------+ + + + + documented as of this encounter Visit Diagnoses Not on filedocumented in this encounter"
--- OUTSIDE RECORDS SUMMARY | ~2019-08-23 | XMS | Encounter Summary ---
Demographics + + + | Address | [address] | | | [place] [address] | + + + | Home Phone | | + + + | Preferred Language | Unknown | + + + | Marital Status | Single | + + + | Sikh Affiliation | DRUZE | + + + | Race | White | + + + | Ethnic Group | Not or | + + + Author + + + | Author | [facility] | + + + | Organization | [facility] | + + + | Address | Unknown | + + + | Phone | Unavailable | + + + Support + + +---------+ + | Name | Relationship | Address | Phone | + + +---------+ + | Theodore Marquez | ECON | Unknown | | + + +---------+ + Care Team Providers + +------+ + | Care Music Pastor Name | Role | Phone | + +------+ + | Jose Hameed MD | PCP | | + +------+ + Reason for Referral Physical Therapy (Routine) + +--------+ + + + + | Status | Reason | Specialty | Diagnoses / | Referred By | Referred To | | | | | Procedures | Contact | Contact | + +--------+ + + + + | Authorized | | Physical | Diagnoses | [place], | | | | | Therapy | [place] | Sh[place]oh | | | | | | sclerosis | MD [address]ny [address] | | | | | | ([facility]) Gait | [address] | | | | | | disorder | [place], [place] | | | | | | Procedures | [address] | | | | | | PHYSICAL | Phone: | | | | | | THERAPY | [phone] | | | | | | REFERRAL | Fax: | | | | | | | [phone] | | + +--------+ + + + + Diagnostic Testing (Routine) + +--------+ + + + + | Status | Reason | Specialty | Diagnoses / | Referred By | Referred To | | | | | Procedures | Contact | Contact | + +--------+ + + + + | Authorized | | Non [facility] | Diagnoses | [place], | Non-[facility] | | | | Department | MS | [facility] | Epic Dept | | | | | (multiple | [facility] [address] | | | | | | sclerosis) | [address] | | | | | | (HCC) | [place], [place] | | | | | | Procedures | [address] | | | | | | MRI BRAIN | Phone: | | | | | | MULTIPLE | [phone] | | | | | | SCLEROSIS | Fax: | | | | | | WWO CONTRAST | [phone] | | + +--------+ + + + + Reason for Visit + + + | Reason | Comments | + + + | Follow-up visit | | + + + | MS - Multiple | | | sclerosis | | + + + | Return Patient | | + + + Encounter Details +--------+---------+ + + + | Date | Type | Department | Care Team | Description | +--------+---------+ + + + | 01/23/ | Office | Neurology at | [place], | Multiple sclerosis | | 2019 | Visit | [facility] & | Shiloh Mukherjee MD | ([facility]) (Primary Dx); | | | | Healing [address] | [address] | Familial | | | | Ave Mailcode: [id number] | [place], [place] | hypophosphatemia ; | | | | [facility] | [address] | MS (multiple | | | | and Healing, | [phone] | sclerosis) ([facility]); | | | | | | Gait disorder | | | | Floor [place], [place] | | | | | | [address] | | | | | | [phone] | | | +--------+---------+ + + + [...] + + + | Blood Pressure | 133/79 | 01/23/2019 11:58 AM | | | | | PDT | | + + + + + | Pulse | 74 | 01/23/2019 11:58 AM | | | | | PDT [...] + + + + | Weight | 93.2 kg (205 lb 8 | 01/23/2019 11:58 AM | | | | oz) | PDT | | + + + + + | Height | - | - | | + + + + + | Body Mass Index | 29.49 | 12/03/2018 10:59 AM | | | | | PDT | | + + + + + documented in this encounter Patient Instructions Patient Instructions Shiloh Shook MD - 01/23/2019 11:35 AM PDTPlease [facility] Physical Therapy Make a decision about bladder surgeryElectronically signed by Shiloh Shook MD at 1 1:07 PM PDT documented in this encounter Progress Notes Shiloh Shook MD - 01/23/2019 11:35 AM PDTFormatting of this note might be differe nt from the original. Clinic Date: 01/23/2019 Clinic: General Neurology Clinic Mian Marquez is a 68 y.o. male referred here by Dr. Hameed for Multiple sclerosis Avonex 7790-9221 (treatment for 2 years) Rebif for 2.5 years; discontinued for disease activity Tysabri 2004- 2008; discontinued for positive SARAH virus Ab Tecfidera for a couple months; discontinued secondary to side effects Copaxone 2013 - November 2015 Ocrevus 11/2016 - present 2. Hx of B12 deficiency 3. Neurogenic Bladder Interval history: Since seen 08/12, feels his condition is really changing. Has more fatigue, has been told he should have a urostomy. Last MRI brain 2017 showed no new changes compared to 2016. Is uns ure if wants to go with plastic surgery here or with a surgeon in [place]. Had Ocrevus A ugust 2018 and had no issues. Feels going downhill since. Feels his memory loss since seen. Past Medical History: Diagnosis Date Back pain s/p surgery Depressive disorder, not elsewhere classified GERD (gastroesophageal reflux disease) severe 07/2014 Low ferritin iron infusions in past MS (multiple sclerosis) ([facility]) gait/ cognition issues Obesity CHRISTEN on CPAP Other and unspecified symptoms and signs involving general sensations and perceptions Restless legs Urinary retention self caths Current Outpatient Medications Medication Sig amantadine HCl 100 mg oral capsule Take 1 capsule by mouth two times daily. Indications : fatigue associated with multiple sclerosis Cholecalciferol, Vitamin D3, (VITAMIN D3) 5,000 unit oral tablet Take 5,000 Units by [facility] once daily. cyanocobalamin 1,000 mcg/mL injection solution Inject into the muscle (IM). DULoxetine 60 mg oral capsule,delayed release(DR/EC) Take 1 capsule by mouth once daily . To be taken with 30mg capsule for total daily dose of 90mg iron sucrose 100 mg iron/5 mL intravenous [...] mouth every six hours as ne eded. polyethylene glycol 17 gram/dose oral powder Mix in liquid and drink. rOPINIRole 2 mg oral tablet Take 2 mg by mouth once daily in the evening. senna (SENNA) 8.6 mg oral tablet Take by mouth. traZODone 100 mg oral tablet Take 2 tablets by mouth once daily at bedtime. Dispense 3 months if possible Indications: insomnia associated with depression warfarin 5 mg oral tablet Take 5 mg by mouth once daily. No current facility-administered medications for this visit. Allergies: Latex and Adhesive tape Family History: No dementia Social History: Moved to [facility] to be near grandchildren Social History Socioeconomic History Marital status: Single Spouse name: Not on file Number of children: Not on file Years of education: Not on file Highest education level: Not on file Occupational History Not on file Social Needs Financial resource strain: Not on file Food insecurity: Worry: Not on file Inability: Not on file Transportation needs: Medical: Not on file Non-medical: Not on file Tobacco Use Smoking status: Never Smoker Smokeless tobacco: Never Used Substance and Sexual Activity Alcohol use: No Drug use: No Sexual activity: Not on file Lifestyle Physical activity: Days per week: Not on file Minutes per session: Not on file Stress: Not on file Relationships Social connections: Talks on phone: Not on file Gets together: Not on file Attends anabaptist service: Not on file Active member of club or organization: Not on file Attends meetings of clubs or organizations: Not on file Relationship status: Not on file Other Topics Concern Not on file Social History Narrative Not on file 14 point ROS was negative except as follows: Physical Examination: Vital Signs: BP 133/79 (BP Location: Right upper arm, Patient Position: Sitting) | Pulse 7 4 | Wt 93.2 kg (205 lb 8 oz) | BMI 29.49 kg/m | BSA 2.15 m t25FW is 7.25 seconds General: The patient looks her stated age. He is no apparent physical stress. He has no spe ech or language problems. Cardiac: Regular rate and rhythm. Lungs: Clear. Skin: Normal. BACK: tender right more than left paraspinous muscles Neurologic: M<S: alert. No dysarthria, STM 0/3 at 5 minutes, calculations intact MMSE 27/30 Cranial Nerve 2: Pupils are equally reactive to light. Visual hebert are intact. Cranial ne rves 3, 4, and 6: Extraocular muscles are normal. Cranial nerve 5: Sensation is intact to V1 through V3. Cranial nerve 7: Face is symmetric. Cranial nerve 10: Normal palate movement. C ranial nerve 12: Normal tongue movement. On motor examination,he has 5/5 strength bilaterally in the deltoid, triceps, biceps, inter ossei, opponens venetian blind mechanic and abductor pollicis brevis, 4/5 RIGHT iliopsoas, quadriceps, hamstri ngs, dorsiflexion, plantar flexion, eversion, and inversion. Reflexes are 1+ symmetrically throughout. Toes are downgoing. Sensory exam is intact throughout to light touch, temperature, pinprick, vibration, and pro prioception in her toes. Cerebellar testing shows normal dplznj-oa-zukg and msky-tt-lfvi. On gait testing, he has a mildly hemiparetic gait. He is NOT able to walk on his heels and toes in tandem. He has a negative Romberg. Ancillary Studies: Lab Results Lab Test Name Results Date/Time TSH 1.50 03/16/03 MRI BRAIN, 3 SEQ, [facility] (no units) Date Value 06/08/1999 Radiologist 1: ROS CONNER M.D.-Radiologist 2: HUYEN NAIR M.D. MAGNETIC RESONANCE IMAGING STUDY OF THE BRAIN: 06/08/99 at 1920 hours. Dictated 06/09/99. COMPARISONS: None. CLINICAL HISTORY: Multiple sclerosis. PROCEDURE: Sagittal T1, axial and coronal proton density and T2 weighted brain magnetic resonance imaging study. FINDINGS: Bilateral periventricular confluent areas of T2 signal abnormality are identified. Also seen are multiple discrete foci of T2/PD signal abnormality distributed bilaterally in the deep white matter of the cerebral hemispheres and in the periventricular regions. Some of these lesions are immediately adjacent to the lateral ventricles and project perpendicularly from them. A 1.5 cm rounded discrete mass with high T2 and low T1 signal and mild mass effect is adjacent to the left anterior body of the corpus callosum. IMPRESSION: Findings of multiple deep and periventricular white matter abnormalities in a pattern consistent with multiple sclerosis. The left frontal lobe lesion adjacent to the corpus callosum likely is active. Contrast was not administered. If contrast enhanced magnetic resonance imaging study is needed, the patient can return for that portion of the exam. END OF IMPRESSION: MR BRAIN MULTIPLE SCLEROSIS WWO CONTRAST (no units) Date Value 01/06/2016 EXAM: MRI brain without and with contrast, MS protocol HISTORY: MS COMPARISON: Outside brain MRI 12/10/13 TECHNIQUE: MS protocol multiplanar multi-sequence MRI of the brain without and with gadolinium based intravenous contrast. 1.5 La MRI. FINDINGS: Brain: Confluent from extensive T2/flair hyperintensity of the supratentorial white matter is unchanged compared to 2014 MRI. No new area of T2 hyperintensity is evident. There is no abnormal intracranial enhancement. T2 hyperintensity within basis toby is similar to prior. Generalized brain parenchymal volume loss is also similar to prior. No hydrocephalus or herniation or mass. No acute infarction. Soft tissues and marrow: Unremarkable Face and orbits: Visualized portions are unremarkable IMPRESSION: Unchanged confluent T2 hyperintensity of the supratentorial white matter as compared to 2014 MRI. No abnormal enhancement. Attending Radiologists: SENG BLANTON MD Author: SENG BLANTON MD I personally reviewed the images and, if necessary, edited the report. I agree with the report as now presented. Final/Electronically signed / SENG BLANTON 01/06/2016 20:16 PM Impression: Mian is a 68 y.o. 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 Plan: Mian is a 68 y.o. 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 Will continue this, and check labs including Vit D, but need PT and an updated MRI brain. documented in t his encounter Plan of Treatment +--------+ + + + + | Date | Type | Specialty | Care Team | Description | +--------+ + + + + | 10/31/ | Appointment | Hematology & | Onc, Gen [address] | | | 2020 | | Oncology | [address] [place], | | | | | | [place] [address] | | +--------+ + + + + + +---------+--------+ + + | Name | Type | Priori | Associated Diagnoses | Order Schedule | | | | ty | | | + +---------+--------+ + + | MRI BRAIN MULTIPLE | Imaging | Routin | MS (multiple | Expected: | | SCLEROSIS WWO | | e | sclerosis) (HCC) | 01/23/2019, Expires: | | CONTRAST | | | | 02/24/2020 | + +---------+--------+ + + documented as of this encounter Results VITAMIN D, 25-HYDROXY, SERUM (01/23/2019 1:20 PM PDT) + + + + + + | Component | Value | Ref Range | Performed | Pathologist | | | | | At | Signature | + + + + + + | VITAMIN D | 21.4 (L) | 30 - 80 ng/mL | [facility] | | | 25 HYDROXY | | | LABORATORY | | | | | | SERVICES, | | | | | | CORE | | + + + + + + + + | Specimen | + + | Blood - Blood | | (substance) | + + + + + | Narrative | Performed At | + + + | Reference Interval: 0-18years: Deficiency: <20 ng/mL | [facility] | | Optimum level: >or=20 ng/mL | LABORATORY | | >18years: Deficiency: <20 | SERVICES, CORE | | ng/mL Insufficiency: 20-29 ng/mL | | | Optimum Level: 30-80 ng/mL High: | | | 81-150 ng/ml Toxic: >150 ng/mL | | + + + + + + + + | Performing | Address | City/State/Zipcode | Phone Number | | Organization | | | | + + + + + | [facility] | [address] | [place] [address] | | | SERVICES, CORE | [address] | | | + + + + + VITAMIN B-12 (01/23/2019 1:20 PM PDT) + +-------+ + + + | Component | Value | Ref Range | Performed | Pathologist | | | | | At | Signature | + +-------+ + + + | VITAMIN B12 | 569 | 193 - 986 pg/mL | [facility] | | | | | | LABORATORY | | | | | | SERVICES, | | | | | | CORE | | + +-------+ + + + + + | Specimen | + + | Blood - Blood | | (substance) | + + + + + + + | Performing | Address | City/State/Zipcode | Phone Number | | Organization | | | | + + + + + | [facility] | [address] | [place] [address] | | | SERVICES, CORE | [address] | | | + + + + + COMPLETE METABOLIC SET (NA,K,CL,CO2,BUN,CREAT,GLUC,CA,AST,ALT,BILI TOTAL,ALK PHOS,ALB,PROT TOTAL) (01/23/2019 1:20 PM PDT) + +---------+ + + + | Component | Value | Ref Range | Performed | Pathologist | | | | | At | Signature | + +---------+ + + + | GLUCOSE, | 86 | 70 - 99 mg/dL | [facility] | | | PLASMA | | | LABORATORY | | | (LAB) | | | SERVICES, | | | | | | [facility] | [facility] + | | | | | | HEALING | | + +---------+ + + + | BUN, PLASMA | 20 | 6 - 20 mg/dL | [facility] | | | (LAB) | | | LABORATORY | | | | | | SERVICES, | | | | | | [facility] | [facility] + | | | | | | HEALING | | + +---------+ + + + | CREATININE | 1.07 | 0.70 - 1.30 | [facility] | | | PLASMA | | mg/dL | LABORATORY | | | (LAB) | | | SERVICES, | | | | | | [facility] | | | [facility] + | | | | | | HEALING | | + +---------+ + + + | EGFR | >60 | >60 mL/min | [facility] | | | - | | | LABORATORY | | | [facility] | | | SERVICES, | | | | | | [facility] | | | [facility] + | | | | | | HEALING | | + +---------+ + + + | EGFR NON | >60 | >60 mL/min | [facility] | | | -CHARLENE | | | LABORATORY | | | [facility] | | | SERVICES, | | | | | | [facility] | | | [facility] + | | | | | | HEALING | | + +---------+ + + + | SODIUM, | 143 | 136 - 145 | [facility] | | | PLASMA | | mmol/L | LABORATORY | | | (LAB) | | | SERVICES, | | | | | | [facility] | | | [facility] + | | | | | | HEALING | | + +---------+ + + + | POTASSIUM, | 4.3 | 3.4 - 5.0 | [facility] | | | PLASMA | | mmol/L | LABORATORY | | | (LAB) | | | SERVICES, | | | | | | [facility] | | | [facility] + | | | | | | HEALING | | + +---------+ + + + | CHLORIDE, | 105 | 97 - 108 mmol/L | [facility] | | | PLASMA | | | LABORATORY | | | (LAB) | | | SERVICES, | | | | | | [facility] | | | [facility] + | | | | | | HEALING | | + +---------+ + + + | TOTAL CO2, | 30 | 21 - 32 mmol/L | [facility] | | | PLASMA | | | LABORATORY | | | (LAB) | | | SERVICES, | | | | | | [facility] | | | [facility] + | | | | | | HEALING | | + +---------+ + + + | CALCIUM, | 9.0 | 8.6 - 10.2 | [facility] | | | PLASMA | | mg/dL | LABORATORY | | | (LAB) | | | SERVICES, | | | | | | [facility] | | [facility] + | | | | | | HEALING | | + +---------+ + + + | CALCIUM(ALB | 9.1 | 8.6 - 10.2 | [facility] | | | CORRECTED) | | mg/dL | LABORATORY | | | | | | SERVICES, | | | | | | [facility] | | [facility] + | | | | | | HEALING | | + +---------+ + + + | BILIRUBIN | 0.8 | 0.3 - 1.2 mg/dL | [facility] | | | TOTAL | | | LABORATORY | | | | | | SERVICES, | | | | | | [facility] | | | | [facility] + | | | | | | HEALING | | + +---------+ + + + | TOTAL | 7.4 | 6.4 - 8.2 g/dL | [facility] | | | PROTEIN, | | | LABORATORY | | | PLASMA | | | SERVICES, | | | (LAB) | | | [facility] | | | | [facility] + | | | | | | HEALING | | + +---------+ + + + | ALBUMIN, | 3.9 | 3.5 - 4.7 g/dL | [facility] | | | PLASMA | | | LABORATORY | | | (LAB) | | | SERVICES, | | | | | | [facility] | [facility] | | | [facility] + | | | | | | HEALING | | + +---------+ + + + | ALK PHOS | 83 | 56 - 119 U/L | [facility] | | | | | | LABORATORY | | | | | | SERVICES, | | | | | | [facility] | | | [facility] + | | | | | | HEALING | | + +---------+ + + + | AST(SGOT) | 17 | <=41 U/L | [facility] | | | | | | LABORATORY | | | | | | SERVICES, | | | | | | [facility] | | [facility] + | | | | | | HEALING | | + +---------+ + + + | ALT (SGPT) | 37 | <=60 U/L | [facility] | | | | | | LABORATORY | | | | | | SERVICES, | | | | | | [facility] | | | | [facility] + | | | | | | HEALING | | + +---------+ + + + | ANION GAP | 8 | 4 - 11 mmol/L | [facility] | | | | | | LABORATORY | | | | | | SERVICES, | | | | | | [facility] | | | | [facility] + | | | | | | HEALING | | + +---------+ + + + | ANION | 8 | 4 - 11 mmol/L | [facility] | | | GAP(ALB | | | LABORATORY | | | CORRECTED) | | | SERVICES, | | | | | | [facility] | | | | [facility] + | | | | | | HEALING | | + +---------+ + + + | POTASSIUM | No Hemo | | [facility] | | | CMNT | | | LABORATORY | | | | | | SERVICES, | | | | | | [facility] | | | | [facility] + | | | | | | HEALING | | + +---------+ + + + | BILI T CMNT | No Hemo | | [facility] | | | | | | LABORATORY | | | | | | SERVICES, | | | | | | [facility] | | | [facility] + | | | | | | HEALING | | + +---------+ + + + | AST CMNT | No Hemo | | [facility] | | | | | | LABORATORY | | | | | | SERVICES, | | | | | | [facility] | | | [facility] + | | | | | | HEALING | | + +---------+ + + + + + | Specimen | + + | Blood - Blood | | (substance) | + + + + + | Narrative | Performed At | + + + | GFR is estimated using the MDRD equation recommended by the National | [facility] | | Kidney Disease Education Program. Estimated GFR Interpretive | LABORATORY | | Information: <60 mL/min/1.73 sq m Chronic Kidney | SERVICES, | | Disease <15 mL/min/1.73 sq m Kidney Failure | CENTER FOR | | Estimated GFR greater than 60 mL/min/1.73 sq m is of limited clinical | HEALTH + | | value. The MDRD equation is not valid in the following situations: | HEALING | | - Patients under 18 years of age - Severe malnutrition or obesity | | | - Vegetarian diet - Rapidly changing kidney function - Amputees, | | | paraplegics, or other muscle-wasting diseases | | + + + + + + + + | Performing | Address | City/State/Zipcode | Phone Number | | Organization | | | | + + + + + | [facility] | [address] | [place] [address] | | | [facility] | | | | | HEALTH + HEALING | | | | + + + + + documented in this encounter Visit Diagnoses + + | Diagnosis | + + | Multiple sclerosis (HCC) - Primary Multiple sclerosis | + + | Familial hypophosphatemia Disorders of phosphorus metabolism | + + | MS (multiple sclerosis) (HCC) Multiple sclerosis | + + | Gait disorder Abnormality of gait | + + documented in this encounter"
--- OUTSIDE RECORDS SUMMARY | ~2019-08-23 | XMS | Encounter Summary ---
Demographics + + + | Address | [address] 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 Marquez returns today 3 months status post laparoscopic Benito-en-Y divided gastric bypass. His weight today is 284 pounds, down from a preoperative 355 pounds, giving him a 71-pound weight loss. He is very pleased with his weight loss but has some concerns and is asking for support group today because he is having issues with food desire and wants sympathetic people to talk about it with. CURRENT MEDICATIONS: His current medications include his multiple sclerosis medications and significant amounts of ibuprofen for his arthritis and possible gout. He stopped indomethacin and started ibuprofen. He also takes some stool softeners because he is only having one bowel movement a week. PHYSICAL EXAMINATION: His abdomen is benign. His wounds are well healed. He has no hernias. LABORATORY DATA: Labs from last month are all normal with a normal chemistry panel and LFTs. ASSESSMENT: Doing very well from a weight loss prospective. PLAN 1. He needs a referral to the [facility] Support [facility]. I have provided him with literature for this today, and we will call him to follow up. 2. He needs a Rheumatology referral. This has been orchestrated by his primary care physician, but it is going to 1-1/2 months. I am going to see if I can perform a referral up here at [facility] for a faster consultation. 3. Followup in this clinic in 1 month. Colin Posada M.D. [facility]AW[facility] / VICTOR M [id number] / [id number] / [id number] / Tdocumented in this encounter Plan of Treatment +--------+ + + + + | Date | Type | Specialty | Care Team | Description | +--------+ + + + + | 10/31/ | Appointment | Hematology & | Onc, Gen [address] | | | 2020 | | Oncology | [place], | | | | | | [place] [address] | | +--------+ + + + + documented as of this encounter Visit Diagnoses Not on filedocumented in this encounter"
--- OUTSIDE RECORDS SUMMARY | ~2019-08-23 | XMS | Encounter Summary ---
Demographics + + + | Address | [address] | | | [place] [address] | + + + | Home Phone | | + + + | Preferred Language | Unknown | + + + | Marital Status | | + + + | Anabaptist Affiliation | Unknown | + + + | Race | Unknown | + + + | Ethnic Group | Unknown | + + + Author + + + | Author | [facility] | | | and Jadenana | + + + | Organization | [facility] | | | and Jadenana [...] | | | | | [place] [address] | | + + + + + Care Team Providers + +------+ + | Care Business Administration Program Chair Name | Role | Phone | + +------+ + | Lexie Cagle | PCP | | | GUARD CAPTAIN | | | + +------+ + Reason for Referral Evaluate & Treat (Routine) +--------+ + + + + + | Status | Reason | Specialty | Diagnoses / | Referred By | Referred To | | | | | Procedures | Contact | Contact | +--------+ + + + + + | Closed | Specialty | Urology | Diagnoses | Harveyloblank, | Soy | | | Services | | Neurogenic | Michael | MD Shukri | | | Required | | bladder | MD [place] | [address] | | | | | Urge | [address] | [address] | | | | | incontinence | [address] [place] | [place], [place] | | | | | Intrinsic | [place] | [id number] | | | | | sphincter | [id number] | Phone: | | | | | deficiency | Phone: | [phone] | | | | | | [phone] | Fax: | | | | | | Fax: | [phone] | | | | | | [phone] | | +--------+ + + + + + Reason for Visit +--------+ + | Reason | Comments | +--------+ + | Other | | +--------+ + Encounter Details +--------+ + + + + | Date | Type | Department | Care Team | Description | +--------+ + + + + | 11/02/ | Telephone | [facility] | Michael Fernandes | Other | | 2019 | | [address] | MD Yaw [address] | | | | | [place] | [address] [place] | | | | | [address] | [address] | | | | | [phone] | | | +--------+ + + + [...] [place] | | | | | | [id number] | | | | | | | | +--------+---------+ + + + + + +--------+ + + | Name | Type | Priori | Associated Diagnoses | Order Schedule | | | | ty | | | + + +--------+ + + | Urology, External - | Outpatient | Routin | Neurogenic bladder | Ordered: 11/05/2018 | | AMB Referral | Referral | e | Urge incontinence | | | | | | Intrinsic sphincter | | | | | | deficiency | | + + +--------+ + + documented as of this encounter Visit Diagnoses + + | Diagnosis | + + | Urge incontinence - Primary | + + | Neurogenic bladder Neurogenic bladder, NOS | + + | 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
--- OUTSIDE RECORDS SUMMARY | ~2019-08-23 | XMS | Encounter Summary ---
Demographics + + + | Address | [address] | | | [place] [address] | + + + | Home Phone | | + + + | Preferred Language | Unknown | + + + | Marital Status | | + + + | Adventism Affiliation | Unknown | + + + | Race | Unknown | + + + | Ethnic Group | Unknown | + + + Author + + + | Author | [facility] | | | and Jadenana | + + + | Organization | [facility] | | | and [...] | | | | | [place] [address] | | + + + + + Care Team Providers + +------+ + | Care Geriatric Personal Care Aide Name | Role | Phone | + +------+ + | Lexie Cagle | PCP | | | WHEAT INSPECTOR | | | + +------+ + Encounter Details +--------+ + + + + | Date | Type | Department | Care Team | Description | +--------+ + + + + | 09/25/ | Anti-coag | [facility] | CagleLexie hankins | | | 2019 | Telephone | MEDICINE [address] | [address] | | | | | [address] [place] | [address] [place] | | | | | [place] [address] | [place] [address] | | | | | [phone] | [phone] | | | | | | | [...] 2019 | Visit | | [address] | | | | | | [place] | | | | | | [address] | | | | | | | | +--------+---------+ + + + documented as of this encounter Procedures + +--------+ + + + | Procedure Name | Priori | Date/Time | Associated Diagnosis | Comments | | | ty | | | | + +--------+ + + + | EXTERNAL LAB: | Routin | 09/24/2018 | | Results for this | | MAR INR | e | | | procedure are in the | | | | | | results section. | + +--------+ + + + documented in this encounter Results External Lab: Mar INR (09/24/2018) + +-------+ + + + | Component | Value | Ref Range | Performed | Pathologist | | | | | At | Signature | + +-------+ + + + | INR, | 1.8 | | REFERENCE | | | External | | | LAB | | | | | | [facility] | | + +-------+ + + + + + | Specimen | + + | Blood | + + + + + + + | Performing | Address | City/State/Zipcode | Phone Number | | Organization | | | | + + + + + | REFERENCE LAB | [address] | [place] | [phone] | | [facility] | | [address] | | + + + + + | REFERENCE LAB | [address] | [place] | [phone] | | [facility] | | [address] | | + + + + + documented in this encounter Visit Diagnoses Not on filedocumented in this encounter"
--- OUTSIDE RECORDS SUMMARY | ~2019-08-23 | XMS | Encounter Summary ---
Demographics + + + | Address | [address] | | | [place] [address] | + + + | Home Phone | | + + + | Preferred Language | Unknown | + + + | Marital Status | Single | + + + | Amish Affiliation | MORMONISM | + + + | Race | White | + + + | Ethnic Group | Not or | + + + Author + + + | Author | [facility] | + + + | Organization | [facility] | + + + | Address | Unknown | + + + | Phone | Unavailable | + + + Support + + +---------+ + | Name | Relationship | Address | Phone | + + +---------+ + | Theodore Marquez | ECON | Unknown | | + + +---------+ + Care Team Providers + +------+ + | Care Report Analyst Name | Role | Phone | + +------+ + | Rudolph Lee MD | PCP | | + +------+ + Encounter Details +--------+ + + + + | Date | Type | Department | Care Team | Description | +--------+ + + + + | 02/19/ | Hospital | Cardiac | [facility] | | | 2013 | Encounter | Non-Invasive Testing | [address] | | | | | at [address] [address] | [facility] | | | | | [address] | [place] [address] | | | | | [address] | | | | | | [place], [address] [place] [address] | | | | | | [place], [place] | | | | | | [address] | | | | | | [phone] | | | +--------+ + + + [...] | | | | | | [place] [address] | | +--------+ + + + + documented as of this encounter Procedures + +--------+ + + + | Procedure Name | Priori | Date/Time | Associated Diagnosis | Comments | | | ty | | | | + +--------+ + + + | 12 LEAD ECG | Routin | 02/19/2014 | Other and | Results for this | | | e | 10:21 AM | unspecified general | procedure are in the | | | | PST | psychiatric | results section. | | | | | examination | | + +--------+ + + + documented in this encounter Results 12 LEAD ECG (02/19/2014 10:21 AM PST) + + + + + + | Component | Value | Ref Range | Performed | Pathologist | | | | | At | Signature | + + + + + + | VENTRICULAR | 63 | bpm | [facility] | | | RATE | | | OF | | | | | | CARDIOLOGY | | + + + + + + | ATRIAL RATE | 63 | bpm | [facility] | | | | | | OF | | | | | | CARDIOLOGY | | + + + + + + | P-R | 140 | ms | [facility] | | | INTERVAL | | | OF | | | | | | CARDIOLOGY | | + + + + + + | P AXIS | 74 | deg | [facility] | | | | | | OF | | | | | | CARDIOLOGY | | + + + + + + | QRS | 90 | ms | [facility] | | | DURATION | | | OF | | | | | | CARDIOLOGY | | + + + + + + | QT | 396 | ms | [facility] | | | | | | OF | | | | | | CARDIOLOGY | | + + + + + + | QTC-JAKETT | 406 | ms | [facility] | | | | | | OF | | | | | | CARDIOLOGY | | + + + + + + | R AXIS | -24 | deg | [facility] | | | | | | OF | | | | | | CARDIOLOGY | | + + + + + + | T AXIS | 61 | deg | [facility] | | | | | | OF | | | | | | CARDIOLOGY | | + + + + + + | ECG | SINUS RHYTHM- NORMAL ECG | | [facility] | | | IMPRESSION | -Electronically signed | | OF | | | | by: CARROL SANDOVAL | | CARDIOLOGY | | | | 02-21-2014 00:19:56 | | | | + + + + + + + + | Specimen | + + | | + + + + + | Narrative | Performed At | + + + | | [facility] | | | CARDIOLOGY | + + + + + | Procedure Note | + + | Amos Su - 02/19/2014 10:37 AM PST | + + + + + + + | Performing | Address | City/State/Zipcode | Phone Number | | Organization | | | | + + + + + | [facility] | [address] | [place], [place] | | | CARDIOLOGY | [address] | [address] | | + + + + + documented in this encounter Visit Diagnoses Not on filedocumented in this encounter"
--- OUTSIDE RECORDS SUMMARY | ~2019-08-23 | XMS | Encounter Summary ---
Demographics + + + | Address | [address] | | | [place] [address] | + + + | Home Phone | | + + + | Preferred Language | Unknown | + + + | Marital Status | Single | + + + | Protestant Affiliation | BAHAI | + + + | Race | White | + + + | Ethnic Group | Not or | + + + Author + + + | Author | [facility] | + + + | Organization | [facility] | + + + | Address | Unknown | + + + | Phone | Unavailable | + + + Support + + +---------+ + | Name | Relationship | Address | Phone | + + +---------+ + | Theodore Marquez | ECON | Unknown | | + + +---------+ + Care Team Providers + +------+ + | Care Wire Harness Design Engineer Name | Role | Phone [...] Closed | | Gastroenterol | Diagnoses | Tilgner, | Gas Endo | | | | ogy | LAP-BAND | ILIANA Bynum | [address] [address] | | | | | surgery | [address] | | | | | status GERD | [address] | Mailcode: | | | | | | [place], [place] | [address] | | | | | (gastroesoph | [address] | for Health | | | | | ageal reflux | Phone: | and Healing, | | | | | disease) | [phone] | [address] | | | | | Procedures | Fax: | [place], [place] | | | | | CONSULT TO | [phone] | [address] | | | | | GI PROCEDURE | | Phone: | | | | | UNIT: EGD | | [phone] | | | | | ID UPPER GI | | Fax: | | | | | ENDOSCOPY,BI | | [phone] | | | | | OPSY | | | +--------+--------+ + + + + Reason for Visit + + + | Reason | Comments | + + + | New patient | | | consultation | | + + + Consultation (Routine) +--------+--------+ + + + + | Status | Reason | Specialty | Diagnoses / | Referred By | Referred To | | | | | Procedures | Contact | Contact | +--------+--------+ + + + + | Closed | | Surgery | Diagnoses | Non-[facility] | Bar | | | | | very | Epic Dept | Bariatri Surg | | | | | painful at | | [facility] [address] | | | | | port site | | [address] | | | | | lap band | | Mailcode: | | | | | after RYGB | | [place] for | | | | | Shob[address] | | Health and | | | | | | | Healing, | | | | | | | [address] | | | | | | | [place], [place] | | | | | | | [address] | | | | | | | Phone: | | | | | | | | | | | | | | Fax: | | | | | | | [phone] | +--------+--------+ + + + + Encounter Details +--------+---------+ + + + | Date | Type | Department | Care Team | Description | +--------+---------+ + + + | 07/03/ | Office | Digestive Health | Liliana Conteh, | LAP-BAND surgery | | 2015 | Visit | Center at [facility] [address] | [address] | status (Primary Dx); | | | | [address] | Ave [place], [place] | GERD | | | | Mailcode: Center | [address] | (gastroesophageal | | | | for Health and | | reflux disease); | | | | Healing, [address] | | Intertriginous | | | | [place], [place] | | candidiasis; | | | | [address] | | Osteoporosis; MS | | | | | | (congenital mitral | | | | | | stenosis); Low | | | | | | ferritin; Vitamin D | | | | | | deficiency disease; | | | | | | History of Benito-en-Y | | | | | | gastric bypass | +--------+---------+ + + + Social History [...] + + + | Blood Pressure | 123/76 | 07/03/2014 9:06 AM | | | | | PDT | | + + + + + | Pulse | 76 | 07/03/2014 9:06 AM | | | | | PDT | | + + + + + | Temperature | 36.8 C (98.3 F) | 07/03/2014 9:06 AM | | | | | PDT | | + + + + + | Respiratory Rate | 16 | 07/03/2014 9:06 AM | | | | | PDT | | + + + + + | Oxygen Saturation | 100% | 07/03/2014 9:06 AM | | | | | PDT | | + + + + + | Inhaled Oxygen | - | - | | | Concentration | | | | + + + + + | Weight | 93.8 kg (206 lb 12.8 | 07/03/2014 9:06 AM | | | | oz) | PDT | | + + + + + | Height | 175.3 cm (5' 9") | 07/03/2014 9:06 AM | | | | | PDT | | + + + + + | Body Mass Index | 30.54 | 07/03/2014 9:06 AM | | | | | PDT | | + + + + + documented in this encounter Patient Instructions Patient Instructions Liliana Berry ACNP - 07/03/2014 9:30 AM PDTI am ordering a ugi Rad iology will call you to schedule The EGD will be done on a afternoon By Dr. Sanchez Have someone drive you GI procedure unit will call you to schedule documented in this encounter Progress Notes Liliana Berry ACNP - 07/03/2014 9:07 AM PDTFormatting of this note might be different fro m the original. BARIATRIC INITIAL VISIT Provider: Liliana Berry DNP, MILANAP, CASING SEWER Referring Provider: Unknown Reason for Requested Consultation: Mian Marquez has a history of Benito en y Gastric Bypass at [facility] in 2005, moved to [facility] and had a lap band Placed for weight gain (AP Standard, 2012) placed over this prior surgery. He presents fo r assistance with management And symptoms of pain over the port, food intolerance (most meats tolerates very small amoun ts of deli meat, tolerates ice cream Protein shakes, no pasta, rice) he has chronic constipation, with daily treatment is not a issue. No vomiting, cramping, Pain is located around the epigastrium, and the presence or absence of food does not seem t o matter. The pain over the port site has been present for some time. Weight loss: His target weight is around 180 and he would like a fill to improve his sense of restriction. Lap Band; He doesn't know when his last fill was, but that it was sometime in 2011 before h e moved back to [place]. The port is midline. He has a issue with history as his MS affects his cognitive function. He has marked difficulty with reading and remembering. Does best with oral information he r emembers that better. Plastic surgery, he is now a and wants to start dating. He would like plastic surgery for his pannus related to Intermittent intertriginous candidiasis, and limits in activity. Social recently moved back to [place] Lives at his brothers house Has a dog (beagle) Non smoker Chart review: prior op note from his lap band is reviewed. No recent images are available. (nor done) ALLERGIES: No Known Allergies Current outpatient prescriptions:cyanocobalamin 1,000 mcg/mL injection solution, Inject 1,0 00 mcg under the skin (SUBC) every thirty days. Indications: VITAMIN B12 DEFICIENCY, Disp: , Rfl: DULoxetine 60 mg oral capsule,delayed release(DR/EC), Take 1 capsule by mouth once daily. T jamila one capsule daily Indications: MAJOR DEPRESSIVE DISORDER, Disp: 30 capsule, Rfl: 1 gabapentin 400 mg oral capsule, Take 2 capsules by mouth two times daily., Disp: 120 capsul e, Rfl: 1 glatiramer (COPAXONE) 40 mg/mL subcutaneous syringe, Inject 40 mg under the skin (SUBC) thr ee times weekly (on Monday, Monday and Monday). Indications: secondary progressive, Disp: , Rfl: ONABOTULINUMTOXINA (BOTOX INJ), by injection route as needed (neurogenic bladder)., Disp: , Rfl: rOPINIRole 2 mg oral tablet, Take 2 mg by mouth once daily in the evening. Indications: RLS , Disp: , Rfl: traZODone 50 mg oral tablet, Take 1-2 tablets by mouth once daily at bedtime as needed., Di sp: 60 tablet, Rfl: 1 History: History Social History Marital Status: Single Spouse Name: N/A Number of Children: N/A Years of Education: N/A Occupational History Not on file. Social History Main Topics Smoking status: Never Smoker Smokeless tobacco: Not on file Alcohol Use: Not on file Drug Use: Not on file Sexual Activity: Not on file Other Topics Concern Not on file Social History Narrative No narrative on file Family History Problem Relation Glasses Mother Glasses Father Glasses Brother Temp (Src) 36.8 C (98.3 F) (Oral) | RR 16 Physical exam: General: Alert and cooperative. Neuro: Oriented x 3. CN III-XII grossly intact. No focal deficits. HEENT: Oropharynx clear without lesion or exudate. Neck: Neck supple. No adenopathy. Abdomen: port is midline, and very prominent, no erythema, fluid collection around the site but it Is very superficial, surgery abd. Multiple areas of folded redundant tissue. Soft, no rebou nd no guarding . Skin: evidence of intermittent skin break down below pannus Psych: No problems noted. Neuro: He states he has marked memory issues with his MS. Verbal instruction is better than written. Laboratory Data: Impression: 1. Abdominal pain :in a 64 yo male with history of RYGB with overlying band for weight gain . Volume of fluid in the band is unknown, last fill in 2011. He Has evidence of restriction with food intolerance (meats) GERD and reflux (hoarse AM voice) . With associated focal pain over a very superficial Lap band port. To best address these issues: Plan: UGI without crystals to evaluate position, ephagus and motility EGD: By Dr. Sanchez to evaluate anatomy. Goal: Evaluate his current anatomy for the potential of a slipped band, eroded band, esopha geal dilatation, Benito pouch anatomy. These studies will assist in making the best recommendations for watermaster treatment. 2. Plastic surgery: I am recommending to him that we address the symptoms and anatomy at th is time, prior to placing this consult. 3. Bariatric Program: I have provided our book to him. 4. Bariatric Labs: I have reviewed labs available from care everywhere. I do not see evide nce of recent vitamin labs. Plan: will order for the next time he is here in clinic 5. Lap Band: current volume in the band is unknown. He is having restriction based on food history. Plan: No change, not accessed today. Evaluate anatomy first then discuss. At this point a f ill would not be indicated Once the above list is completed and copies have been received by our office, we will submi t for insurance authorization then schedule with the surgeon. Liliana Berry DNP, ACNP, CASING SEWER Nurse Practitioner for Bariatric Surgery [facility] | [address] | [place], [place] | [address] | Potential Contraindications to Bariatric Surgery Age over 69 BMI over 60 Oxygen dependence Immobility wheelchair or bed bound Cardiac issues such as ischemic heart disease as indicated on cardiac stress test or cardia c catheterization; severe or uncompensated heart failure which may be indicated by a decreas ed ejection fraction. Pulmonary issues such as untreated sleep apnea, obesity hypoventilation syndrome, severe CO PD or asthma. Liver disease such as cirrhosis, esophageal varices, or portal hypertension. Severe, untreated renal disease. Rheumatologic and other diseases requiring immune suppressant medications. Untreated or active cancer. Untreated psychological disability. If you have any of the above conditions, you may not be a candidate for bariatric surgery. Our program will perform a thorough evaluation prior to making such a determination. This evaluation may involve testing or consultations. We will make every effort to notify patien ts who are not candidates for surgery as early in the process as possible, but it is importa nt to realize that the surgeon may make that determination later in the process. Clearance for surgery by your PCP or other providers does not guarantee that the [facility] Bariatric Surger y program will deem you a surgical candidate. documented in this en counter Plan of Treatment +--------+ + + + + | Date | Type | Specialty | Care Team | Description | +--------+ + + + + | 10/31/ | Appointment | Hematology & | Onc, Gen [address] | | | 2020 | | Oncology | [place], | | | | | | [place] [address] | | +--------+ + + + + documented as of this encounter Procedures + +--------+ + + + | Procedure Name | Priori | Date/Time | Associated Diagnosis | Comments | | | ty | | | | + +--------+ + + + | X-RAY THEO TAVAREZ | Routin | 08/26/2014 | | Results for this | | | e | 11:45 AM | | procedure are in the | | | | PDT | | results section. | + +--------+ + + + documented in this encounter Results X-RAY THEO TAVAREZ (08/26/2014 11:45 AM PDT) + + + + + + | Component | Value | Ref Range | Performed | Pathologist | | | | | At | Signature | + + + + + + | THEO TAVAREZ | STUDY: THEO TAVAREZ | | | | | | 08/26/14 11:45:00 | | | | | | COMPARISON: None. | | | | | | HISTORY: Patient with | | | | | | symptoms of | | | | | | gastroesophageal reflux | | | | | | disease. The | | | | | | patienthas a history of | | | | | | Benito-en-Y gastric bypass | | | | | | in 2001 and lap band 2 | | | | | | years earlier. | | | | | | PROCEDURE: A grounds manager film | | | | | | was obtained. | | | | | | Esophagram and upper | | | | | | GI series wasperformed | | | | | | following the oral | | | | | | administration of 1 cup | | | | | | thick and 1 cup | | | | | | thinbarium sulfate. A | | | | | | 13 mm barium sizing | | | | | | tablet was also | | | | | | administered. | | | | | | Totalpulsed | | | | | | fluoroscopic time: 104 | | | | | | seconds. FINDINGS: The | | | | | | grounds manager film demonstrated | | | | | | surgical suture in the | | | | | | left upper abdomen. A | | | | | | lapband was evident. | | | | | | Thoracolumbar spinal | | | | | | hardware was noted from | | | | | | prior [id number]. | | | | | | Dorsal nerve root | | | | | | stimulator device was | | | | | | also evident. There | | | | | | was amoderate to large | | | | | | volume of stool observed | | | | | | within colonic bowel | | | | | | loops. The esophagus | | | | | | demonstrated appropriate | | | | | | distensibility and | | | | | | mucosal pattern.There | | | | | | was no focal stricture | | | | | | are evident. While the | | | | | | secondary | | | | | | peristalticstripping | | | | | | wave appropriately | | | | | | cleared the esophagus of | | | | | | contrast, tertiary | | | | | | waveswere evident. There | | | | | | was an expected gastric | | | | | | pouch noted above the | | | | | | lap band. There was | | | | | | widepatency across the | | | | | | gas esophageal junction | | | | | | and lap and with the 13 | | | | | | mm sizingtablet easily | | | | | | clearing both junctions. | | | | | | There was near | | | | | | continuous, | | | | | | spontaneousgastroesophag | | | | | | eal reflux to above the | | | | | | thoracic inlet. There | | | | | | was a small remnant | | | | | | stomach suggested with | | | | | | wide patency across | | | | | | thegastroenteric | | | | | | anastomosis. There was | | | | | | expected forward | | | | | | propagation of contrast. | | | | | | IMPRESSION: 1. Lap | | | | | | band appears in standard | | | | | | location.2. | | | | | | Esophageal | | | | | | dysmotility.3. Near | | | | | | continuous, spontaneous | | | | | | gastroesophageal reflux. | | | | | | Attending Radiologists: | | | | | | SANCHEZ HOFFMAN MDAuthor: | | | | | | SANCHEZ HOFFMAN MD I have | | | | | | personally viewed this | | | | | | procedure/exam, reviewed | | | | | | this report, and | | | | | | madechanges to it where | | | | | | appropriate. | | | | | | Final/Electronically | | | | | | signed / SANCHEZ HOFFMAN | | | | | | 08/26/2014 14:43 PM | | | | + + + + + + + + | Specimen | + + | | + + + +---------+ + + | Performing | Address | City/State/Zipcode | Phone Number | | Organization | | | | + +---------+ + + | [facility] | | | | | RADIOLOGY | | | | + +---------+ + + FERRITIN (07/29/2014 10:11 AM PDT) + + + + + + | Component | Value | Ref Range | Performed | Pathologist | | | | | At | Signature | + + + + + + | FERRITIN | 243 (H)Comment: Male | 50 - 200 ng/mL | [facility] | | | | and Female >18 years: | | LABORATORY | | | | <20 ng/mL: | | SERVICES, | | | | Consistant with iron | | CORE | | | | deficiency 21-50 | | | | | | ng/mL: Possible | | | | | | iron deficiency 51-99 | | | | | | ng/mL: Iron | | | | | | deficiency unlikely | | | | | | unless inflammation | | | | | | present or | | | | | | patient | | | | | | >65 years of age | | | | | | 100-200 ng/mL: | | | | | | Normal, not consistent | | | | | | with iron deficiency | | | | | | >200 ng/mL: If | | | | | | transferrin saturation | | | | | | >45%, consider | | | | | | hemochromatosis | | | | + + + + + + + + | Specimen | + + | Blood - Blood | + + + + + + + | Performing | Address | City/State/Zipcode | Phone Number | | Organization | | | | + + + + + | [facility] | [address] | [place] [address] | | | SERVICES, CORE | [address] | | | + + + + + VITAMIN B-12, SERUM (07/29/2014 10:11 AM PDT) + +-------+ + + + | Component | Value | Ref Range | Performed | Pathologist | | | | | At | Signature | + +-------+ + + + | VITAMIN B12 | 463 | 190 - 910 pg/ml | [facility] | | | | | | LABORATORY | | | | | | SERVICES, | | | | | | SPECIAL IMM | | | | | | + COAG | | + +-------+ + + + + + | Specimen | + + | Blood - Blood | + + + + + + + | Performing | Address | City/State/Zipcode | Phone Number | | Organization | | | | + + + + + | [facility] | [address] | [place] [address] | | | SERVICES, SPECIAL | [address] | | | | IMM + COAG | | | | + + + + + VITAMIN D, 25-HYDROXY, SERUM (07/29/2014 10:11 AM PDT) + + + + + + | Component | Value | Ref Range | Performed | Pathologist | | | | | At | Signature | + + + + + + | VITAMIN D | 17.2 (L) | 30 - 80 ng/mL | [...] | + + + + + | [facility] | [address] | [place] [address] | | | SERVICES, SPECIAL | [address] | | | | IMM + COAG | | | | + + + + + PTH, SERUM (07/29/2014 10:11 AM PDT) + + + + + + | Component | Value | Ref Range | Performed | Pathologist | | | | | At | Signature | + + + + + + | PTH, SERUM | 124 (H)Comment: | 15 - 65 pg/mL | [facility] | | | | | | REG UNIV | | | | +-------+-------+----- | | PTH - INTFC | | | | --+-------+--------+P | | | | | | 400 + . . . . . . S | | | | | | P. . | | | | | | . . . +T + . . | | | | | | . . . . .S | | | | | | P. . . . . .+H | | | | | | 300 + . . . . . . S | | | | | | P. . . . | | | | | | . .P+ + . . . | | | | | | . . . .S | | | | | | P. . . . . .P +I 200 | | | | | | +. . . . . . . S | | | | | | P. . . . . P | | | | | | +N + . . . . | | | | | | . . .S P . | | | | | | . . . P +T 100 | | | | | | +. . . . . . . S | | | | | | P . . . . P | | | | | | +A + . . . . . | | | | | | . .S P. . . | | | | | | .P +C 75 | | | | | | +. . . . . . . | | | | | | SDDDDDDDDDDP . .P | | | | | | +T +S S S | | | | | | S S F-P-U +P.P | | | | | | + | | | | | | 50 + + | | | | | | NORMAL + | | | | | | +p + | | | | | | + | | | | | | Ca/PTH + | | | | | | +g 30 + | | | | | | + | | | | | | + | | | | | | +/ | | | | | | +H H H H H | | | | | | H M M M M M | | | | | | M M M +m 10 +. . . | | | | | | . . .H H M | | | | | | . . . . . . . +L | | | | | | + . . . . . . H | | | | | | M . . . . . . | | | | | | .+ +. . . . | | | | | | . . . H M . | | | | | | . . . . . . + 0 | | | | | | ++---/--+-------+------- | | | | | | +-------+---/---++ | | | | | | 4 8 | | | | | | 9 10 | | | | | | 11 15 | | | | | | | | | | | | Total Calcium (mg/dL) | | | | | | | | | | | | | | | | | | | | | | | | | | | | | | Box = Reference | | | | | | Interval | | | | | | | | | | | | <*> = Patient Result | | | | | | | | | | | | P = | | | | | | Primary | | | | | | Hyperparathyroidism | | | | | | | | | | | | S = Secondary | | | | | | Hyperparathyroidism | | | | | | D = | | | | | | Renal Insufficiency or | | | | | | | | | | | | Vitamin D Deficiency | | | | | | H = | | | | | | Hypoparathyroidism | | | | | | | | | | | | M = | | | | | | Hypercalcemia of | | | | | | MalignancyPerformed by | | | | | | [address] | | | | | | [address], [facility] [place] | | | | | | [address] | | | | | | [phone][email or web address]. | | | | | | [place], | | | | | | , Lab. Director | | | | + + + + + + | CALCIUM, | Not Provided | mg/dL | [facility] | | | SERUM | | | REG UNIV | | | | | | PTH - INTFC | | + + + + + + + + | Specimen | + + | Blood - Blood | + + + + + + + | Performing | Address | City/State/Zipcode | Phone Number | | Organization | | | | + + + + + | [facility] | [address] | [place], [place] | | | UNIV PTH - INTFC | | [phone] | | + + + + + documented in this encounter Visit Diagnoses + + | Diagnosis | + + | LAP-BAND surgery status - Primary Bariatric surgery status | + + | GERD (gastroesophageal reflux disease) Esophageal reflux | + + | Intertriginous candidiasis Candidiasis of skin and nails | + + | Osteoporosis | + + | MS (congenital mitral stenosis) Congenital mitral stenosis | + + | Low ferritin Other nonspecific findings on examination of blood | + + | Vitamin D deficiency disease Unspecified vitamin D deficiency | + + | History of Benito-en-Y gastric bypass Bariatric surgery status | + + documented in this encounter
--- OUTSIDE RECORDS SUMMARY | ~2019-08-23 | XMS | Encounter Summary ---
Demographics + + + | Address | [address] | | | [place] [address] | + + + | Home Phone | | + + + | Preferred Language | Unknown | + + + | Marital Status | Single | + + + | Mandaen Affiliation | RELIGION | + + + | Race | [...] Team Providers + +------+ + | Care Nursing Program Coordinator Name | Role | Phone | + +------+ + | Trevin Delacruz MD | PCP | | + +------+ + Reason for Visit +--------+ + | Reason | Comments | +--------+ + | Other | [facility] Park[facility] Permit | +--------+ + Encounter Details +--------+ + + + + | Date | Type | Department | Care Team | Description | +--------+ + + + + | 04/08/ | Documentati | Neurology at | Christian Maldonado MD | Other ([facility] Parking | | 2016 | on | [facility] & | [address] | Permit) | | | | Healing [address] | [facility], | | | | | [place] Mailcode: [address] | [place] [address] | | | | | [facility] | [phone] | | | | | and Healing, | | | | | | [address] | | | | | | [facility], [place] | | | | | | [address] | | | | | | [phone] | | | +--------+ + + + [...] | | | | | | [place] [address] | | +--------+ + + + + documented as of this encounter Visit Diagnoses Not on filedocumented in this encounter"
--- OUTSIDE RECORDS SUMMARY | ~2019-08-23 | XMS | Encounter Summary ---
Demographics + + + | Address | [address] | | | [place] [address] | + + + | Home Phone | | + + + | Preferred Language | Unknown | + + + | Marital Status | | + + + | Zoroastrianism Affiliation | Unknown | + + + | Race | Unknown | + + + | Ethnic Group | Unknown | + + + Author + + + | Author | [facility] | | | and Jadenana | + + + | Organization | [facility] | | | and [...] | | | | | [place] [address] | | + + + + + Care Team Providers + +------+ + | Care Finance Clerk Name | Role | Phone | + +------+ + | Lexie Cagle | PCP | | | SUPERVISOR [employer] | | | + +------+ + Reason for Visit + + + | Reason | Comments | + + + | Medication Prior | Pradaxa | | Authorization | | + + + Encounter Details +--------+ + + + + | Date | Type | Department | Care Team | Description | +--------+ + + + + | 09/14/ | Telephone | [facility] | Lexie Cagle | Medication Prior | | 2019 | | [facility] [address] | [address] | Authorization | | | | [facility] | [facility] | (Pradaxa ) | | | | [place] [address] | [place] [address] | | | | | [phone] | [phone] | | | | | | | [...] 2019 | Visit | | [address] | | | | | | [place] | | | | | | [address] | | | | | | | | +--------+---------+ + + + documented as of this encounter Visit Diagnoses + + | Diagnosis | + + | Paroxysmal atrial fibrillation (HCC) - Primary Atrial fibrillation | + + | Deep vein thrombosis (DVT) of proximal vein of right lower extremity, unspecified | | chronicity (HCC) | + + documented in this encounter"
--- OUTSIDE RECORDS SUMMARY | ~2019-08-23 | XMS | Encounter Summary ---
Demographics + + + | Address | [address] | | | [place] [address] | + + + | Home Phone | | + + + | Preferred Language | Unknown | + + + | Marital Status | Single | + + + | Pentecostal Affiliation | MANDAEISM | + + + | Race | White | + + + | Ethnic Group | Not or | + + + Author + + + | Author | [facility] | + + + | Organization | [facility] | + + + | Address | Unknown | + + + | Phone | Unavailable | + + + Support + + +---------+ + | Name | Relationship | Address | Phone | + + +---------+ + | Theodore Marquez | ECON | Unknown | | + + +---------+ + Care Team Providers + +------+ + | Care Secretary Bookkeeper Name | Role | Phone | + [...] | | | | Mailcode: [id number] | [facility] [place] | | | | | [facility] | [address] | | | | | and [address], | [phone] | | | | | | | | | | | Floor [place], [place] | | | | | | [address] | | | | | | [phone] | | | +--------+ + + + [...] | | | | | | [place] [address] | | +--------+ + + + + documented as of this encounter Visit Diagnoses Not on filedocumented in this encounter"
--- OUTSIDE RECORDS SUMMARY | ~2019-08-23 | XMS | Encounter Summary ---
Demographics + + + | Address | [address] | | | [place] [address] | + + + | Home Phone | | + + + | Preferred Language | Unknown | + + + | Marital Status | Single | + + + | Roman Catholic Affiliation | EPISCOPALIAN | + + + | Race | White | + + + | Ethnic Group | Not or | + + + Author + + + | Author | [facility] | + + + | Organization | [facility] | + + + | Address | Unknown | + + + | Phone | Unavailable | + + + Support + + +---------+ + | Name | Relationship | Address | Phone | + + +---------+ + | Theodore Marquez | ECON | Unknown | | + + +---------+ + Care Team Providers + +------+ + | Care Shank Taper Name | Role | Phone | + +------+ + | Jose Hameed MD | PCP | | + +------+ + Reason for Referral Diagnostic Testing (Routine) +--------+--------+ + + + + | Status | Reason | Specialty | Diagnoses / | Referred By | Referred To | | | | | Procedures | Contact | Contact | +--------+--------+ + + + + | Closed | | Radiology | Diagnoses | [place], | | | | | | MS | MD Christian | | | | | | (multiple | [address] | | | | | | sclerosis) | Nate | | | | | | (HCC) | [address] | | | | | | Procedures | [place], [place] | | | | | | MRI BRAIN | [address] | | | | | | MULTIPLE | Phone: | | | | | | SCLEROSIS | [phone] | | | | | | WWO CONTRAST | Fax: | | | | | | | [phone] | | +--------+--------+ + + + + Reason for Visit + + + | Reason | Comments | + + + | Follow-up visit | | + + + Encounter Details +--------+---------+ + + + | Date | Type | Department | Care Team | Description | +--------+---------+ + + + | 09/25/ | Office | Neurology at | [place], MD Christian | MS (multiple | | 2018 | Visit | [facility] | [address] | sclerosis) ([facility]) | | | | Healing [address] | Eduarda [address] [place], | (Primary Dx); | | | | Ave Mailcode: CH8C | [place] [address] | Chronic low back | | | | [facility] | [phone] | pain without | | | | and Healing, | | sciatica, | | | | Building | | unspecified back | | | | Floor [place], [place] | | pain laterality; | | | | [address] | | Mild episode of | | | | [phone] | | recurrent major | | | | | | depressive disorder | | | | | | ([facility]) | +--------+---------+ + + + Social History [...] + + + | Blood Pressure | 124/85 | 09/25/2017 8:09 AM | | | | | PDT | | + + + + + | Pulse | 68 | 09/25/2017 8:09 AM | | | | | PDT [...] Weight | 89.4 kg (197 lb) | 09/25/2017 8:09 AM | | | | | PDT | | + + + + + | Height | - | - | | + + + + + | Body Mass Index | 28.27 | 10/31/2016 3:28 PM | | | | | PDT | | + + + + + documented in this encounter Progress Notes Christian Maldonado MD - 09/25/2017 8:20 AM PDT [facility] Medical Problems 1. Multiple sclerosis Avonex [id number] (treatment for 2 years) Rebif for 2.5 [...] Chronic back pain with placement of spinal stimulator, 2011, replaced with paddles and non- rechargeable battery (PharmAssistant stimulator) in spring 2016. 9. CHRISTEN INTERVAL HISTORY: Mr. Marquez RTC for follow up. He has been receiving Botox for his bladde r and cathing with some improvement in function. Still notes some leakage which he is worki ng on with his urologist, Dr. Nix. Since his last visit he has been started on a couple new medications due to the diagnosis o f A fib (apixaban and metoprolol). He also continues to have difficulties with depression. Is seen regularly by psych. He adair l be following up with them to discuss further treatment options. He continues to have forg etfulness, trouble focusing. He reports no further discussion of possible ECT for his sympt oms. Has continued back pain. He is currently getting DELPHINE for this problem (will be getting his next injection tomorrow). He does report he has been having more difficulties with his gait and balance. He is now u sing a cane on a regular basis. He is not sure if his LBP is contributing to this difficult y. Current Outpatient Prescriptions Medication Sig apixaban (ELIQUIS ORAL) Take by mouth. buPROPion XL 150 mg oral tablet extended release 24 hr Take 1 tablet by mouth once lois y in the morning. Indications: major depressive disorder Cholecalciferol, Vitamin D3, (VITAMIN D3) 5,000 unit oral tablet Take 5,[address] [facility] once daily. cyanocobalamin 1,000 mcg/mL injection solution Inject into the muscle (IM). gabapentin 300 mg oral capsule Take 1 capsule by mouth three times daily. Indications: NEUROPATHIC PAIN iron sucrose 100 mg iron/5 mL intravenous solution Every other month METOPROLOL SUCCINATE ORAL Take by mouth. modafinil 200 mg oral tablet Take 1 tablet by mouth two times daily. NaCl 0.9 % solp 500 mL with [...] Take 1 tablet by mouth once daily. . Indications: major d epressive disorder No current facility-administered medications for this visit. REVIEW OF SYSTEMS: He reports ongoing difficulties with his depression and fatigue. Review of systems is otherwise negative. PAST MEDICAL HISTORY: Significant for a knee [...] forms of medical therapy. Spinal cord sti mulator. 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 Allergies: Latex and Adhesive tape Physical Examination: Vital Signs: BP 124/85 | Pulse 68 | Wt 89.4 kg (197 lb) | BMI 28.27 kg/(m^2) General: He is no apparent physical stress. He has no speech or language problems. . Neurologic: Mental status: Patient is oriented and [...] hroughout L UE and LE. He has 4+/5 strength throughout the Right UE. He has 4-/5 HF, 4+/5 KE/KF and 4/5 ADF R LE. Tone is mildly increased R. Reflexes are 3 symmetrically througho ut. Sensory exam is intact throughout to light touch. Vibratory sensation in decrease dista lly, all 4 extremities. Cerebellar testing shows slowed [id number]-fh-hwqh. Gait: Antalgic ca sual gait, very difficult to tandem walk as he had to reach out for support. Walks 25 feet in 7.57 sec. Impression: 1. Multiple sclerosis 2. Depression. 3. Hx Benito-en-Y with hx of B12 deficiency. 4. Vitamin D deficiency. 5. Complaints of worsening cognitive function. 6. Fatigue 7. Low back pain Mian reports continued decline in function. He also has worsening mood. 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 I recommended we repeat his MRI given his complaint of worsening function. Plan: 1. RTC in 6 months. 2. Continue current medications. 3. Repeat MRI brain to assess for new disease activity. documented in this encounter Plan of Treatment +--------+ + + + + | Date | Type | Specialty | Care Team | Description | +--------+ + + + + | 10/31/ | Appointment | Hematology & | Onc, Gen [address] | | | 2020 | | Oncology | [address] [place], | | | | | | [place] [address] | | +--------+ + + + + + +---------+--------+ + + | Name | Type | Priori | Associated Diagnoses | Order Schedule | | | | ty | | | + +---------+--------+ + + | MRI BRAIN MULTIPLE | Imaging | Routin | MS (multiple | Expected: | | SCLEROSIS WWO | | e | sclerosis) ([facility]) | 09/25/2017, Expires: | | CONTRAST | | | | 10/26/2018 | + +---------+--------+ + + documented as of this encounter Visit Diagnoses + + | Diagnosis | + + | MS (multiple sclerosis) (HCC) - Primary Multiple sclerosis | + + | Chronic low back pain without sciatica, unspecified back pain laterality | + + | Mild episode of recurrent major depressive disorder (HCC) | + + documented in this encounter"
--- OUTSIDE RECORDS SUMMARY | ~2019-08-23 | XMS | Encounter Summary ---
Demographics + + + | Address | [address] | | | [place] [address] | + + + | Home Phone | | + + + | Preferred Language | Unknown | + + + | Marital Status | | + + + | Episcopal Affiliation | Unknown | + + + | Race | Unknown | + + + | Ethnic Group | Unknown | + + + Author + + + | Author | [facility] | | | and [place] | + + + | Organization | [facility] | | [...] | | | | | [place] [address] | | + + + + + Care Team Providers + +------+ + | Care Hardboard Panel Printer Name | Role | Phone | + +------+ + | Lexie Cagle | PCP | | | PIT AND AUXILIARIES SUPERVISOR | | | + +------+ + Reason for Visit + + + | Reason | Comments | + + + | Lab Order | | + + + Encounter Details +--------+ + + + + | Date | Type | Department | Care Team | Description | +--------+ + + + + | 09/24/ | Telephone | [facility] | Lexie Cagle | Lab Order | | 2019 | | MEDICINE [address] | [address] | | | | | [address] | [address] | | | | | [place] [address] | [place] [address] | | | | | [phone] | [phone] | | | | | | | [...] 2020 | Visit | | [address] | | | | | | [place] | | | | | | [address] | | | | | | | | +--------+---------+ + + + documented as of this encounter Visit Diagnoses Not on filedocumented in this encounter"
--- OUTSIDE RECORDS SUMMARY | ~2019-08-23 | XMS | Encounter Summary ---
Demographics + + + | Address | [address] | | | [place] [address] | + + + | Home Phone | | + + + | Preferred Language | Unknown | + + + | Marital Status | | + + + | Congregation Affiliation | Unknown | + + + | Race | Unknown | + + + | Ethnic Group | Unknown | + + + Author + + + | Author | [facility] | | | and [place] | + + + | Organization | [facility] | | | and [place] [...] | | | | | [place] [address] | | + + + + + Care Team Providers + +------+ + | Care Billing Associate Name | Role | Phone | + +------+ + | Lexie Cagle | PCP | | | ADJUSTO WRITER OPERATOR | | | + +------+ + Reason for Visit + + + | Reason | Comments | + + + | Medication Prior | | | Authorization | | + + + Encounter Details +--------+ + + + + | Date | Type | Department | Care Team | Description | +--------+ + + + + | 01/10/ | Telephone | [facility] | Michael Fernandes | Medication Prior | | 2019 | | [address] | MD Y[address] | Authorization | | | | [place] | [place] | | | | | [address] | [address] | | | | | [phone] | | | +--------+ + + + [...] 2019 | Visit | | [address] | | | | | | [place] | | | | | | [address] | | | | | | | | +--------+---------+ + + + documented as of this encounter Visit Diagnoses Not on filedocumented in this encounter"
--- OUTSIDE RECORDS SUMMARY | ~2019-08-23 | XMS | Encounter Summary ---
Demographics + + + | Address | [address] | | | [place] [address] | + + + | Home Phone | | + + + | Preferred Language | Unknown | + + + | Marital Status | Single | + + + | Buddhist Affiliation | SYNAGOGUE | + + + | Race | White | + + + | Ethnic Group | Not or | + + + Author + + + | Author | [facility] | + + + | Organization | [facility] | + + + | Address | Unknown | + + + | Phone | Unavailable | + + + Support + + +---------+ + | Name | Relationship | Address | Phone | + + +---------+ + | Theodore Marquez | ECON | Unknown | | + + +---------+ + Care Team Providers + +------+ + | Care Client Account Specialist Name | Role | Phone | + +------+ + | Jose Hameed MD | PCP | | + +------+ + Encounter Details +--------+ + + + + | Date | Type | Department | Care Team | Description | +--------+ + + + + | 11/09/ | Abstract | Urology at [facility] | Shukri Olivier MD | | | 2019 | | [address] | [address] | | | | | Mailcode: CH10U | [facility] [place] | | | | | [facility] | [address] | | | | | and [address], | [phone] | | | | | | | | | | | Floor [place], [place] | | | | | | [address] | | | | | | [phone] | | | +--------+ + + + [...] | | | | | | [place] [address] | | +--------+ + + + + documented as of this encounter Visit Diagnoses Not on filedocumented in this encounter"
--- OUTSIDE RECORDS SUMMARY | ~2019-08-23 | XMS | Encounter Summary ---
Demographics + + + | Address | [address] | | | [place] [address] | + + + | Home Phone | | + + + | Preferred Language | Unknown | + + + | Marital Status | Single | + + + | Pentecostalism Affiliation | RESTORATION | + + + | Race | [...] Team Providers + +------+ + | Care Climatologist Name | Role | Phone | + +------+ + | Trevin Delacruz MD | PCP | | + +------+ + Encounter Details +--------+ + + + + | Date | Type | Department | Care Team | Description | +--------+ + + + + | 08/27/ | Telephone | [facility] | Liliana Conteh, | | | 2014 | | [place] at [facility] [address] | [facility] [address] | | | | | [address] | [address] [facility] [place] | | | | | Mailcode: [place] | [address] | | | | | [facility] and | [phone] | | | | | [facility], [place] [address] | | | | | | [place], [place] | | | | | | [address] | | | | | | | [...] | | | | | | [place] [address] | | +--------+ + + + + documented as of this encounter Visit Diagnoses Not on filedocumented in this encounter"
--- OUTSIDE RECORDS SUMMARY | ~2019-08-23 | XMS | Encounter Summary ---
Demographics + + + | Address | [address] | | | [place] [address] | + + + | Home Phone | | + + + | Preferred Language | Unknown | + + + | Marital Status | | + + + | Congregational Affiliation | Unknown | + + + | Race | Unknown | + + + | Ethnic Group | Unknown | + + + Author + + + | Author | [facility] | | | and [place] | + + + | Organization | [facility] | | | and [...] | | | | | [place] [address] | | + + + + + Care Team Providers + +------+ + | Care Tiler'S Assistant Name | Role | Phone | + +------+ + | Shmuel Merrill | | + +------+ + Reason for Visit + + + | Reason | Comments | + + + | Lab Results | | + + + Encounter Details +--------+ + + + + | Date | Type | Department | Care Team | Description | +--------+ + + + + | 10/26/ | Telephone | [facility] | Lexie Cagle | Lab Results | | 2019 | | MEDICINE [address] | [address] | | | | | [address] | [address] [facility] | | | | | [place] [address] | [place] [address] | | | | | [phone] | [phone] | | | | | | | [...] 2020 | Visit | | [address] | | | | | | [place] | | | | | | [address] | | | | | | | | +--------+---------+ + + + documented as of this encounter Visit Diagnoses Not on filedocumented in this encounter"
--- OUTSIDE RECORDS SUMMARY | ~2019-08-23 | XMS | Encounter Summary ---
Demographics + + + | Address | [address] | | | [place] [address] | + + + | Home Phone | | + + + | Preferred Language | Unknown | + + + | Marital Status | Single | + + + | Nondenominational Affiliation | ANABAPTISM | + + + | Race | White | + + + | Ethnic Group | Not or | + + + Author + + + | Author | [facility] | + + + | Organization | [facility] | + + + | Address | Unknown | + + + | Phone | Unavailable | + + + Support + + +---------+ + | Name | Relationship | Address | Phone | + + +---------+ + | Theodore Marquez | ECON | Unknown | | + + +---------+ + Care Team Providers + +------+ + | Care Tufting Machine Fixer Name | Role | Phone | + +------+ + PCP | Unavailable | + +------+ + Encounter Details +--------+ + + + + | Date | Type | Department | Care Team | Description | +--------+ + + + + | 06/03/ | Results | Neurology Multiple | Christian Maldonado MD | | | 1999 | Only | [facility] | [address] | | | | | [address] [place] | | | | | [place] Mailcode: | [place] [address] | | | | | [facility] | [phone] | | | | | Clinic Building | | | | | | [place] | | | | | | [address] | | | | | | [phone] | | | +--------+ + + + [...] | | | | | | [place] [address] | | +--------+ + + + + documented as of this encounter Procedures + +--------+ + + + | Procedure Name | Priori | Date/Time | Associated Diagnosis | Comments | | | ty | | | | + +--------+ + + + | METHYLMALONIC ACID, | Routin | 06/04/1999 | | Results for this | | SERUM | e | 1:42 PM | | procedure are in the | | | | PST | | results section. | + +--------+ + + + | APT-LORENZO AB ON HEP 2, | Routin | 06/04/1999 | | Results for this | | SER | e | 1:41 PM | | procedure are in the | | | | PST | | results section. | + +--------+ + + + | HOMOCYSTEINE TOTAL, | Routin | 06/04/1999 | | Results for this | | PLASMA | e | 1:41 PM | | procedure are in the | | | | PST | | results section. | + +--------+ + + + | METHYLMALONIC ACID, | Routin | 06/04/1999 | | Results for this | | SERUM | e | 1:41 PM | | procedure are in the | | | | PST | | results section. | + +--------+ + + + | ANTI NUCLEAR AB | Routin | 06/04/1999 | | Results for this | | SCREEN, SERUM | e | 1:41 PM | | procedure are in the | | | | PST | | results section. | + +--------+ + + + | TSH | Routin | 06/04/1999 | | Results for this | | | e | 1:41 PM | | procedure are in the | | | | PST | | results section. | + +--------+ + + + | FOLATE, SERUM | Routin | 06/04/1999 | | Results for this | | | e | 1:41 PM | | procedure are in the | | | | PST | | results section. | + +--------+ + + + | VITAMIN B-12 | Routin | 06/04/1999 | | Results for this | | | e | 1:41 PM | | procedure are in the | | | | PST | | results section. | + +--------+ + + + documented in this encounter Results METHYLMALONIC ACID, SERUM (06/04/1999 1:42 PM PST) + +-------+ + + + | Component | Value | Ref Range | Performed | Pathologist | | | | | At | Signature | + +-------+ + + + | METHYLMALON | 0.2 | <0.4 umol/L | | | | IC ACID | | | | | + +-------+ + + + + + | Specimen | + + | | + + + + + + + | Performing | Address | City/State/Zipcode | Phone Number | | Organization | | | | + + + + + | [facility] | [address] | [place], [place] | | | [facility] | | [address] | | + + + + + APT-LORENZO AB ON HEP 2, SER (06/04/1999 1:41 PM PST) + + + + + + | Component | Value | Ref Range | Performed | Pathologist | | | | | At | Signature | + + + + + + | LORENZO PATTERN | Speckled 40 | | | | + + + + + + | ANTI-DNA | Not Indicated | | | | | ANTIBODY | | | | | + + + + + + + + | Specimen | + + | | + + + + + | Narrative | Performed At | + + + | LORENZO Ab on Hep2 Test performed by [facility] | | | Laboratories. | | + + + + + + + + | Performing | Address | City/State/Zipcode | Phone Number | | Organization | | | | + + + + + | [facility] | [address] | [place] [address] | | | LABORATORY | | | | + + + + + FOLATE, SERUM (06/04/1999 1:41 PM PST) + +-------+ + + + | Component | Value | Ref Range | Performed | Pathologist | | | | | At | Signature | + +-------+ + + + | FOLATE,SERU | 15.0 | 2.0 - 17.0 | | | | M | | ng/ml | | | + +-------+ + + + + + | Specimen | + + | | + + + + + + + | Performing | Address | City/State/Zipcode | Phone Number | | Organization | | | | + + + + + | [facility] | [address] | [place] [address] | | | LABORATORY | | | | + + + + + METHYLMALONIC ACID, SERUM (06/04/1999 1:41 PM PST) + + + + + + | Component | Value | Ref Range | Performed | Pathologist | | | | | At | Signature | + + + + + + | METHYLMALON | Quantity not Sufficient | umol/L | | | | IC ACID | for test. | | | | + + + + + + + + | Specimen | + + | | + + + + + + + | Performing | Address | City/State/Zipcode | Phone Number | | Organization | | | | + + + + + | [facility] | [address] | [place], [place] | | | [facility] | | [address] | | + + + + + ANTI NUCLEAR AB SCREEN (06/04/1999 1:41 PM PST) + + + + + + | Component | Value | Ref Range | Performed | Pathologist | | | | | At | Signature | + + + + + + | LORENZO SCREEN | Positive | Negative | | | | ON HEP | | | | | | 2,SERUM | | | | | + + + + + + + + | Specimen | + + | | + + + + + + + | Performing | Address | City/State/Zipcode | Phone Number | | Organization | | | | + + + + + | [facility] | [address] | [place] [address] | | | LABORATORY | | | | + + + + + VITAMIN B-12, SERUM (06/04/1999 1:41 PM PST) + +-------+ + + + | Component | Value | Ref Range | Performed | Pathologist | | | | | At | Signature | + +-------+ + + + | VITAMIN | 298 | 200 - 950 pg/ml | | | | B12, SERUM | | | | | + +-------+ + + + + + | Specimen | + + | | + + + + + + + | Performing | Address | City/State/Zipcode | Phone Number | | Organization | | | | + + + + + | [facility] | [address] | [place] [address] | | | LABORATORY | | | | + + + + + TSH-THYROID STIM HORMONE (06/04/1999 1:41 PM PST) + +-------+ + + + | Component | Value | Ref Range | Performed | Pathologist | | | | | At | Signature | + +-------+ + + + | TSH | 2.30 | 0.23 - 4.00 | | | | | | uIU/ml | | | + +-------+ + + + + + | Specimen | + + | | + + + + + + + | Performing | Address | City/State/Zipcode | Phone Number | | Organization | | | | + + + + + | [facility] | [address] | [place] [address] | | | LABORATORY | | | | + + + + + HOMOCYSTEINE, PLASMA, TOTAL (06/04/1999 1:41 PM PST) + + + + + + | Component | Value | Ref Range | Performed | Pathologist | | | | | At | Signature | + + + + + + | HOMOCYSTEIN | 12.4 (H)Comment: Plasma | 4.0 - 12.0 | | | | E,PLASMA,TO | total homocysteine | umol/L | | | | BRIELLE | (tHcy) is a graded risk | | | | | | factor forcardiovasc- | | | | | | ular disease. The risk | | | | | | increases progressively | | | | | | with homocysteineconcen- | | | | | | tration. Maintenance of | | | | | | homocysteine levels | | | | | | below 10 umol/L | | | | | | isrecommended plasma is | | | | | | not properly | | | | | | from the cells at the | | | | | | time ofcollection. This | | | | | | test is performed | | | | | | pursuant to a licensing | | | | | | agreement | | | | | | with[employer]etitive | | | | | | [employer] | | | | + + + + + + + + | Specimen | + + | | + + + + + + + | Performing | Address | City/State/Zipcode | Phone Number | | Organization | | | | + + + + + | [facility] | [address] | [place], [place] | | | [facility] | | [address] | | + + + + + documented in this encounter Visit Diagnoses Not on filedocumented in this encounter"
--- OUTSIDE RECORDS SUMMARY | ~2019-08-23 | XMS | Encounter Summary ---
Demographics + + + | Address | [address] | | | [place] [address] | + + + | Home Phone | | + + + | Preferred Language | Unknown | + + + | Marital Status | Single | + + + | Rastafari Affiliation | PRESYBETERIAN | + + + | Race | [...] Team Providers + +------+ + | Care Emergency Management Specialist Name | Role | Phone | + +------+ + | Trevin Delacruz MD | PCP | | + +------+ + Reason for Referral Consultation (Routine) +--------+--------+ + + + + | Status | Reason | Specialty | Diagnoses / | Referred By | Referred To | | | | | Procedures | Contact | Contact | +--------+--------+ + + + + | Closed | | Plastic | Diagnoses | Mattar, | Pls | | | | Surgery | S/P | Emilie Noguera MD | Gen/Recon | | | | | bariatric | [address] | [address] | | | | | surgery | [address] | [address] | | | | | Abdominal | [place], [place] | Mailcode: | | | | | pannus | [address] | [address] Center | | | | | Excess skin | | for Health | | | | | | | and Healing, | | | | | PANNICULECTO | | Building 1, | | | | | MY | | 5th Floor | | | | | Procedures | | [place], [place] | | | | | CONSULT TO | | [address] | | | | | SURGERY - | | Phone: | | | | | PLASTICS | | [phone] | +--------+--------+ + + + + Reason for Visit + + + | Reason | Comments | + + + | Follow-up visit | | + + + Consultation (Routine) [...] | | painful at | | [facility] [address] | | | | | port site | | [address] | | | | | lap band | | Mailcode: | | | | | after RYGB | | [facility] | | | | | Shob[address] 1999 | | Health and | | | | | | | Healing, | | | | | | | Building [address] | | | | | | | [place], [place] | | | | | | | [address] | | | | | | | Phone: | | | | | | | | | | | | | | Fax: | | | | | | | [phone] | +--------+--------+ + + + + Encounter Details +--------+---------+ + + + | Date | Type | Department | Care Team | Description | +--------+---------+ + + + | 11/13/ | Office | Dig[facility]ive [facility] | Emilie Otero, | S/P bariatric | | 2015 | Visit | Center at [facility] [address] | MD | surgery (Primary | | | | [address] | | Dx); Abdominal | | | | Mailcode: Center | | davidus; Excess skin | | | | for Health and | | | | | | Healing, Building [address] | | | | | | [facility] [place] | | | | | | [address] | | | | | | | [...] documented as of this encounter Progress Notes Emilie Otero MD - 12/30/2014 2:43 PM PDTFormatting of this note might be different fro m the original. BARIATRIC SURGERY FOLLOW UP REASON FOR VISIT: 1wk follow up, following EGD on 11/06/14 with alfaro placement HISTORY: Mian Marquez is a(n) 64 y.o. male with history of MS, prior morbid obesity with R YGB and lap band placement over bypass, here to discuss EGD and Alfaro results as well as nex t steps for continuing GERD and dysphagia. He had GERD sxs of delayed postprandial regurgitation of bile-like contents prior to his in itial RYGB RYGB in 2001 at a wit of 390lbs Band over bypass 2011 - with last volume increase 1+yrs ago Initially seen in our clinic 06/2014 with persistent GERD, new lap band port pain, and dysph agia (mild) -Subsequent UGI showed esophageal dysmotility -EGD normal post-op finding except for small amt retained fundus Seen again in 09/2014 with similar symptoms - increased GERD, notes that Reglan does not hel p -EGD 11/06/14 with Alfaro placement for quantification of reflux INTERVAL HISTORY: No changes - still with historical reflux sxs of delayed postprandial regurgitation of bile-like cont ents, approx 1 hour after he eats, 2/wk - still with dysphagia to solids (no particular type of food) feels it sticks behind his s ternum and takes a long time to go down Improved lap band port pain - states minimal now Bothered by his excess skin (post wt loss) in his abdomen but particularly in his scrotum -wt fairly stable x2+ years -Would like to lose more wt with goal of ~180 (220lbs now) OBJECTIVE: Filed Vitals 11/06/2014 2:47 PM Weight: 90.719 kg (200 lb) BP: 119/77 Pulse: 70 Resp: 14 SpO2: 96% WEIGHT: Wt Readings from Last 1 Encounters: 12/11/14 91.173 kg (201 lb) Physical Exam: General: Alert and oriented, NAD, walking with cane HEENT: Sclerae anicteric, EOMI Respiratory: Unlabored, CTA throughout CV: RRR, grade 2 systolic murmur with radiation to carotids; no JVD Abdomen: soft, ND/NT with excess skin (thin without apparent excess underlying fat), previo us incisions well healed, port sites for gastric band and spine stimulator nontender today. Extremities: Warm and well perfused, no peripheral edema Neuro: decreased strength and balance with poor reflexes - baseline per pt. Keenes antalgic w david cane. Meds: Current Inpatient Medications Medication ARIPiprazole 5 mg oral tablet Armodafinil (NUVIGIL) 150 mg oral tablet Calcium Citrate-Vitamin D3 (CITRACAL + D PETITES) 200 mg calcium -250 unit oral tablet cholecalciferol, Vitamin D3, (VITAMIN D3) 2,000 unit oral capsule cyanocobalamin 1,000 mcg/mL injection solution ECONAZOLE 1 % topical cream gabapentin 400 mg oral capsule glatiramer (COPAXONE) 40 mg/mL subcutaneous syringe NaCl 0.9 % solp 500 mL with iron dextran 100 mg/2 mL (50 mg/mL) soln ONABOTULINUMTOXINA (BOTOX INJ) OXYBUTYNIN 5 mg oral tablet rOPINIRole 2 mg oral tablet traZODone 50 mg oral tablet venlafaxine XR 75 mg oral capsule,extended release 24hr No current facility-administered medications for this visit. Imaging: STUDY: UGI W KUB 08/26/14 11:45:00 IMPRESSION: 1. Lap band appears in standard location. 2. Esophageal dysmotility. 3. Near continuous, spontaneous gastroesophageal reflux. EGD 11/06/14 - normal post-operative findings without ulcerations or esophagitis. Alfaro plac ed Alfaro placed 11/06/14 - no pathologic pH readings with Demeester Score in normal range - no evidence of acid reflux ASSESSMENT AND PLAN: This is Mian Marquez, a 64 y.o. Male with a history of MS, RYGB and lap band placement over bypass, experiencing persistent chronic GERD (x10+ years) and dysphagia (x8-9 months). 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 I spent 20 minutes with the patient of which >50% of this time was in counseling and coordination of care. We discussed chong fact that his Bra vo study appeared normal and that his persistent dysphagia may be related to his MS. I am as randy him to receive advice from his neurologist in this regard and we will see him again in a few months. I am also referring him to our plastic surgeons (Dr. Augustine) for consideratio n of panniculectomy. EMILIE OTERO MD CHIEF, BARIATRIC [facility] 6TH FLOOR [address] Mailcode: [place] [address] Eden Beckford - 10/26 9:03 AM PDT BARIATRIC SURGERY FOLLOW UP REASON FOR VISIT: 1wk follow up, following EGD on 11/06/14 with alfaro placement HISTORY: Mian Marquez is a(n) 64 y.o. male with history of MS, prior morbid obesity with R YGB and lap band placement over bypass, here to discuss EGD and Alfaro results as well as nex t steps for continuing GERD and dysphagia. He had GERD sxs of delayed postprandial regurgitation of bile-like contents prior to his in itial RYGB RYGB in 2001 at a wit of 390lbs Band over bypass 2011 - with last volume increase 1+yrs ago Initially seen in our clinic 06/2014 with persistent GERD, new lap band port pain, and dysph agia (mild) -Subsequent UGI showed esophageal dysmotility -EGD normal post-op finding except for small amt retained fundus Seen again in 09/2014 with similar symptoms - increased GERD, notes that Rosa does not hel p -EGD 11/06/14 with Alfaro placement for quantification of reflux INTERVAL HISTORY: No changes - still with historical reflux sxs of delayed postprandial regurgitation of bile-like cont ents, approx 1 hour after he eats, 2/wk - still with dysphagia to solids (no particular type of food) feels it sticks behind his s ternum and takes a long time to go down Improved lap band port pain - states minimal now Bothered by his excess skin (post wt loss) in his abdomen but particularly in his scrotum -wt fairly stable x2+ years -Would like to lose more wt with goal of ~180 (220lbs now) OBJECTIVE: Filed Vitals 08/21/2014 3:24 PM 09/25/2014 9:11 AM 11/06/2014 2:47 PM Height: 1.778 m (5' 10") Weight: 90.719 kg (200 lb) 90.719 kg (200 lb) BP: 123/83 152/96[Second BP reading was 145/93[ 119/77 Pulse: 62 62 70 Temp: 37.3 C (99.1 F) 36.7 C (98.1 F) TempSrc: Oral Oral Resp: 16 16 14 SpO2: 98% 98% 96% PainSc: 0 - Zero WEIGHT: Wt Readings from Last 1 Encounters: 11/06/14 90.719 kg (200 lb) Physical Exam: General: Alert and oriented, NAD, walking with cane HEENT: Sclerae anicteric, EOMI Respiratory: Unlabored, CTA throughout CV: RRR, grade 2 systolic murmur with radiation to carotids; no JVD Abdomen: soft, ND/NT with excess skin (thin without apparent excess underlying fat), previo us incisions well healed, port sites for gastric band and spine stimulator nontender today. Extremities: Warm and well perfused, no peripheral edema Neuro: decreased strength and balance with poor reflexes - baseline per pt. Keenes antalgic w ith cane. Meds: Current Inpatient Medications Medication Armodafinil (NUVIGIL) 150 mg oral tablet Calcium Citrate-Vitamin D3 (CITRACAL + D PETITES) 200 mg calcium -250 unit oral tablet cholecalciferol, Vitamin D3, (VITAMIN D3) 2,000 unit oral capsule cyanocobalamin 1,000 mcg/mL injection solution DULoxetine 30 mg oral capsule,delayed release(DR/EC) DULoxetine 60 mg oral capsule,delayed release(DR/EC) ECONAZOLE 1 % topical cream gabapentin 400 mg oral capsule HYDROcodone-acetaminophen 5-325 mg oral tablet NaCl 0.9 % solp 500 mL with iron dextran 100 mg/2 mL (50 mg/mL) soln NITROFURANTOIN MONOHYDRATE/MACROCRYSTAL 100 mg oral capsule omeprazole 20 mg oral capsule,delayed release(DR/EC) ONABOTULINUMTOXINA (BOTOX INJ) OXYBUTYNIN 5 mg oral tablet oxyCODONE, immediate release, 5 mg oral tablet rOPINIRole 2 mg oral tablet traZODone 50 mg oral tablet No current facility-administered medications for this visit. Imaging: STUDY: UGI W KUJay 08/26/14 11:45:00 IMPRESSION: 1. Lap band appears in standard location. 2. Esophageal dysmotility. 3. Near continuous, spontaneous gastroesophageal reflux. EGD 11/06/14 - normal post-operative findings without ulcerations or esophagitis. Alfaro plac ed Alfaro placed 11/06/14 - no pathologic pH readings with Demeester Score in normal range - no evidence of acid reflux ASSESSMENT AND PLAN: This is Mian Marquez, a 64 y.o. Male with a history of MS, RYGB and lap band placement over bypass, experiencing persistent chronic GERD (x10+ years) and dysphagia (x8-9 months). 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 Gurrola's not e. Please see my note as documented above. EMILIE OTERO MD CHIEF, BARIATRIC SERVICES [facility] 6TH FLOOR [address] Mailcode: [place] [address] documented in this en counter Plan of Treatment +--------+ + + + + | Date | Type | Specialty | Care Team | Description | +--------+ + + + + | 10/31/ | Appointment | Hematology & | Onc, Gen [address] | | | 2020 | | Oncology | [place], | | | | | | [place] [address] | | +--------+ + + + + documented as of this encounter Visit Diagnoses + + | Diagnosis | + + | S/P bariatric surgery - Primary Bariatric surgery status | + + | Abdominal pannus Localized adiposity | + + | Excess skin | + + documented in this encounter
--- OUTSIDE RECORDS SUMMARY | ~2019-08-23 | XMS | Encounter Summary ---
Demographics + + + | Address | [address] | | | [place] [address] | + + + | Home Phone | | + + + | Preferred Language | Unknown | + + + | Marital Status | | + + + | Confucianism Affiliation | Unknown | + + + | Race | Unknown | + + + | Ethnic Group | Unknown | + + + Author + + + | Author | [facility]erg[facility] With [facility] | | | and Jadenana | + + + | Organization | [facility]erged With [facility] [...] | | | | | [place] [address] | | + + + + + Care Team Providers + +------+ + | Care Letterset Press Set Up Operator Name | Role | Phone | + +------+ + | Lexie Cagle | PCP | | | POWER AND RECOVERY SUPERINTENDENT | | | + +------+ + Encounter Details +--------+ + + + + | Date | Type | Department | Care Team | Description | +--------+ + + + + | 01/10/ | Anti-coag | [facility] | CagleLexie hankins | | | 2019 | Telephone | MEDICINE [address] | [address] | | | | | [address] [place] | [address] [place] | | | | | [place] [address] | [place] [address] | | | | | [phone] | [phone] | | | | | | | [...] documented as of this encounter Progress Notes Madiha Nuno LPN - 01/10/2019 9:31 AM PDTPatient notified of providers orders. Patient u nderstands and accepts ASW Lexie garza APRN - 01/10/2019 9:31 AM PDTINR remains low. Was it held for his recent procedures? Has he missed any doses? Please increase warfarin to 10 mg today, then 7.5 mg MWF, 5 mg the other days of the week. Recheck in 1 week documented in this encounter Plan of Treatment +--------+---------+ + + + | Date | Type | Specialty | Care Team | Description | +--------+---------+ + + + | 11/12/ Office | Sleep Medicine | Laith Sheffield PA | | | 2020 | Visit | | [address] | | | | | | [place] | | | | | | [address] | | | | | | | | +--------+---------+ + + + documented as of this encounter Procedures + +--------+ + + + | Procedure Name | Priori | Date/Time | Associated Diagnosis | Comments | | | ty | | | | + +--------+ + + + | EXTERNAL LAB: | Routin | 01/10/2019 | | Results for this | | PROTIME INR | e | | | procedure are in the | | | | | | results section. | + +--------+ + + + documented in this encounter Results External Lab: [facility] (01/10/2019) + +---------+ + + + | Component | Value | Ref Range | Performed | Pathologist | | | | | At | Signature | + +---------+ + + + | INR, | 1.3 (A) | 0.9 - 1.2 | REFERENCE | | | External | | | LAB | | | | | | [facility] | | + +---------+ + + + + + | Specimen | + + | Blood | + + + + + + + | Performing | Address | City/State/Zipcode | Phone Number | | Organization | | | | + + + + + | REFERENCE LAB | [address] | [place] | [phone] | | [facility] | | [address] | | + + + + + | REFERENCE LAB | [address] | [place] | [phone] | | [facility] | | [address] | | + + + + + documented in this encounter Visit Diagnoses Not on filedocumented in this encounter"
--- OUTSIDE RECORDS SUMMARY | ~2019-08-23 | XMS | Encounter Summary ---
Demographics + + + | Address | [address] | | | [place] [address] | + + + | Home Phone | | + + + | Preferred Language | Unknown | + + + | Marital Status | | + + + | Mandaeism Affiliation | Unknown | + + + | Race | Unknown | + + + | Ethnic Group | Unknown | + + + Author + + + | Author | [facility] | | | and [place]aden[place] | + + + | Organization | [facility] | | | and [place] | [...] | | | | | [place] [address] | | + + + + + Care Team Providers + +------+ + | Care Art Objects Salesperson Name | Role | Phone | + [...] Frank RN | | | | | [place], [place] | | | | | | [address] | | | | | | [phone] | | | +--------+ + + + [...] [place] | | | | | | [address] | | | | | | | | +--------+---------+ + + + documented as of this encounter Visit Diagnoses Not on filedocumented in this encounter"
--- OUTSIDE RECORDS SUMMARY | ~2019-08-23 | XMS | Encounter Summary ---
Demographics + + + | Address | [address] | | | [place] [address] | + + + | Home Phone | | + + + | Preferred Language | Unknown | + + + | Marital Status | | + + + | Oriental Orthodox Affiliation | Unknown | + + + | Race | Unknown | + + + | Ethnic Group | Unknown | + + + Author + + + | Author | [facility] | | | and Jadenana | + + + | Organization | [facility] | | | and [...] | | | | | [place] [address] | | + + + + + Care Team Providers + +------+ + | Care Bank Teller Name | Role | Phone | + +------+ + | Lexie Cagle | PCP | | | CAMP[facility] AMBASSADOR | | | + +------+ + Reason for Referral Diagnostic/Screening (Urgent) +--------+--------+ + + + + | Status | Reason | Specialty | Diagnoses / | Referred By | Referred To | | | | | Procedures | Contact | Contact | +--------+--------+ + + + + | Closed | | Radiology | Diagnoses | [place], | [address] | | | | | Flank pain | Michael | [place] | | | | | Chronic | MD Yaw | [place], | | | | | right-sided | [address] | [place] [address] | | | | | low back | [address] [place] | Phone: | | | | | pain with | [place], [place] | [phone] | | | | | sciatica, | [address] | Fax: | | | | | sciatica | Phone: | [phone] | | | | | laterality | [phone] | | | | | | unspecified | Fax: | | | | | | Procedures | [phone] | | | | | | CT Renal | | | | | | | Stone Wo | | | | | | | Contrast | | | | | | | CHG CT | | | | | | | SCAN,ABDOMEN | | | | | | | AND | | | | | | | PELVIS,W/O | | | | | | | CONTRAST | | | +--------+--------+ + + + + Reason for Visit Diagnostic/Screening (Urgent) +--------+--------+ + + + + | Status | Reason | Specialty | Diagnoses / | Referred By | Referred To | | | | | Procedures | Contact | Contact | +--------+--------+ + + + + | Closed | | Radiology | Diagnoses | [place], | [address] | | | | | Flank pain | Michael | [place] | | | | | Chronic | MD aYw | [place], | | | | | right-sided | [address] | [place] [address] | | | | | low back | [address]VE [place] | Phone: | | | | | pain with | [place], [place] | [phone] | | | | | sciatica, | [address] | Fax: | | | | | sciatica | Phone: | [phone] | | | | | laterality | [phone] | | | | | | unspecified | Fax: | | | | | | Procedures | [phone] | | | | | | CT Renal | | | | | | | Stone Wo | | | | | | | Contrast | | | | | | | CHG CT | | | | | | | SCAN,ABDOMEN | | | | | | | AND | | | | | | | PELVIS,W/O | | | | | | | CONTRAST | | | +--------+--------+ + + + + Encounter Details +--------+ + + + + | Date | Type | Department | Care Team | Description | +--------+ + + + + | 12/14/ | Hospital | [facility] | Michael Fernandes | Flank pain; Chronic | | 2019 | Encounter | [facility] [address] | MD Yaw [address] | right-sided low back | | | | [place], | [place] [place], [place] | pain with sciatica, | | | | [place] [address] | [address] | sciatica laterality | | | | [phone] | | unspecified | +--------+ + + + + Social [...] [place] | | | | | | [id number] | | | | | | | | +--------+---------+ + + + documented as of this encounter Procedures + +--------+ + + + | Procedure Name | Priori | Date/Time | Associated Diagnosis | Comments | | | ty | | | | + +--------+ + + + | CT RENAL STONE WO | AMPARO | 12/14/2018 | Flank pain | Results for this | | CONTRAST | | 11:08 AM | Chronic right-sided | procedure are in the | | | | PDT | low back pain with | results section. | | | | | sciatica, sciatica | | | | | | laterality | | | | | | unspecified | | + +--------+ + + + documented in this encounter Results CT Renal Stone Wo Contrast (12/14/2018 11:08 AM PDT) + + | Specimen | + + | | + + + + + | Narrative | Performed At | + + + | EXAM: CT RENAL STONE WO CONTRAST dated 12/14/2018 11:04 AM | [facility] | | HISTORY:right back pain Comparison: None. TECHNIQUE: Imaging | | | is performed from the mid liver through the pubic symphysis without | | | contrast. DOSE: DLP 550.25 mGy-cm FINDINGS: LUNG BASES: | | | Probable scarring in the right lung base. Bilateral subpleural fat | | | deposition. No visible pleural effusions or pneumothorax. Small | | | hiatal hernia. LIVER: The visible unenhanced liver is | | | unremarkable. GALLBLADDER: The gallbladder is surgically absent. | | | The intrahepatic and extrahepatic biliary ducts are appropriate | | | given the postsurgical state. SPLEEN: The visible unenhanced | | | spleen is unremarkable. PANCREAS: The unenhanced pancreas is | | | unremarkable. No peripancreatic inflammatory change. ADRENALS: | | | No adrenal enlargement. No adrenal masses. KIDNEYS: There are | | | bilateral renal cysts. There is a cyst in the left kidney | | | associated with in peripheral calcifications. One of these in the | | | right kidney has a margin of measurable calcification. The | | | calcification measures just under 2 mm in thickness. There is a | | | large nephrolith is in the inferior pole of the right kidney and | | | measures about 11 x 15 mm. No ureterolith. No evidence for renal | | | obstruction. BOWEL: There are changes consistent with gastric | | | banding and probable partial gastrectomy. There are no dilated | | | loops of bowel no evidence for gastrointestinal tract obstruction. | | | No associated inflammation or evidence for perforation. The | | | appendix is visible. No evidence for appendicitis. VASCULATURE | | | AND LYMPH NODES: There is no aneurysmal dilatation of the abdominal | | | aorta. There is no pelvic or abdominal lymphadenopathy. | | | BLADDER: The bladder is unremarkable. BONES: There is levoconvex | | | scoliosis. There are posterior and interbody fusion changes at | | | L4-S1. Posterior fusion changes at L2-L3 and L3-L4. Anterior | | | fusion hardware is present at L4-L5. Sacroiliac joints | | | stabilization devices are present on the right . The hardware | | | appears to be intact. There is spondylosis through the | | | thoracolumbar junction. No compression deformities. Bone islands | | | are present in the right pelvis. No suspicious lytic or blastic bone | | | lesions. No visible acute osseous abnormalities. OTHER: There | | | is no free fluid. There is no free air. Partial visualization of | | | an implanted device and intraspinal catheters in the lower thoracic | | | spine. Extensive postsurgical changes through the anterior and lower | | | abdominal wall without distinct herniation. IMPRESSION - | | | Right nephrolithiasis without evidence of a ureterolith or obstruction | | | at this time. Cystic process in the right kidney with a partial | | | rim of 1 to 2 mm thick calcification. The entire process measures | | | about 2 cm. Consider additional imaging or comparison with priors | | | if any are available. Bilateral renal cysts. No evidence for | | | gastrointestinal tract obstruction. Extensive postsurgical changes | | | in the lumbar spine and right sacrum. Dictated and Signed by: | | | Hever Gonsalves MD Electronically signed: 12/14/2018 12:19 PM | | + + + + + | Procedure Note | + + | Meet, Rad Results In - 12/14/2018 12:22 PM PDT EXAM: CT RENAL STONE WO CONTRAST dated | | 12/14/2018 11:04 AMHISTORY:right back painComparison: None.TECHNIQUE: Imaging is | | performed from the mid liver through the pubic symphysiswithout contrast.DOSE: DLP | | 550.25 mGy-cmFINDINGS: LUNG BASES: Probable scarring in the right lung base. Bilateral | | subpleural fatdeposition. No visible pleural effusions or pneumothorax. Small hiatal | | hernia.LIVER: The visible unenhanced liver is unremarkable.GALLBLADDER: The gallbladder | | is surgically absent. The intrahepatic andextrahepatic biliary ducts are appropriate | | given the postsurgical state.SPLEEN: The visible unenhanced spleen is unremarkable. | | PANCREAS: The unenhanced pancreas is unremarkable. No peripancreaticinflammatory | | change.ADRENALS: No adrenal enlargement. No adrenal masses.KIDNEYS: There are bilateral | | renal cysts. There is a cyst in the left kidneyassociated with in peripheral | | calcifications. One of these in the right kidneyhas a margin of measurable | | calcification. The calcification measures just under2 mm in thickness. There is a | | large nephrolith is in the inferior pole of theright kidney and measures about 11 x 15 | | mm. No ureterolith. No evidence forrenal obstruction.BOWEL: There are changes | | consistent with gastric banding and probable partialgastrectomy. There are no dilated | | loops of bowel no evidence forgastrointestinal tract obstruction. No associated | | inflammation or evidence forperforation. The appendix is visible. No evidence for | | appendicitis.VASCULATURE AND LYMPH NODES: There is no aneurysmal dilatation of the | | abdominalaorta. There is no pelvic or abdominal lymphadenopathy.BLADDER: The bladder is | | unremarkable.BONES: There is levoconvex scoliosis. There are posterior and interbody | | fusionchanges at L4-S1. Posterior fusion changes at L2-L3 and L3-L4. Anterior | | fusionhardware is present at L4-L5. Sacroiliac joints stabilization devices arepresent | | on the right . The hardware appears to be intact. There is spondylosisthrough the | | thoracolumbar junction. No compression deformities. Bone islandsare present in the | | right pelvis. No suspicious lytic or blastic bone lesions. No visible acute osseous | | abnormalities.OTHER: There is no free fluid. There is no free air. Partial | | visualization ofan implanted device and intraspinal catheters in the lower thoracic | | spine. Extensive postsurgical changes through the anterior and lower abdominal | | wallwithout distinct herniation.IMPRESSION - Right nephrolithiasis without evidence of a | | ureterolith or obstruction at thistime.Cystic process in the right kidney with a | | partial rim of 1 to 2 mm thickcalcification. The entire process measures about 2 cm. | | Consider additionalimaging or comparison with priors if any are available.Bilateral | | renal cysts.No evidence for gastrointestinal tract obstruction.Extensive postsurgical | | changes in the lumbar spine and right sacrum. Dictated and Signed by: Hever Gonsalves, | | Electronically signed: 12/14/2018 12:19 PM | |gastrectomy. There are no dilated loops of bowel no evidence for | |gastrointestinal tract obstruction. No associated inflammation or evidence for | |perforation. The appendix is visible. No evidence for appendicitis. | | | |VASCULATURE AND LYMPH NODES: There is no aneurysmal dilatation of the abdominal | |aorta. There is no pelvic or abdominal lymphadenopathy. | | | |BLADDER: The bladder is unremarkable. | | | |BONES: There is levoconvex scoliosis. There are posterior and interbody fusion | |changes at L4-S1. Posterior fusion changes at L2-L3 and L3-L4. Anterior fusion | |hardware is present at L4-L5. Sacroiliac joints stabilization devices are | |present on the right . The hardware appears to be intact. There is spondylosis | |through the thoracolumbar junction. No compression deformities. Bone islands | |are present in the right pelvis. No suspicious lytic or blastic bone lesions. | |No visible acute osseous abnormalities. | | | |OTHER: There is no free fluid. There is no free air. Partial visualization of | |an implanted device and intraspinal catheters in the lower thoracic spine. | |Extensive postsurgical changes through the anterior and lower abdominal wall | |without distinct herniation. | | | |IMPRESSION - | | | |Right nephrolithiasis without evidence of a ureterolith or obstruction at this | |time. | | | |Cystic process in the right kidney with a partial rim of 1 to 2 mm thick | |calcification. The entire process measures about 2 cm. Consider additional | |imaging or comparison with priors if any are available. | | | |Bilateral renal cysts. | | | |No evidence for gastrointestinal tract obstruction. | | | |Extensive postsurgical changes in the lumbar spine and right sacrum. 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
--- OUTSIDE RECORDS SUMMARY | ~2019-08-23 | XMS | Encounter Summary ---
Demographics + + + | Address | [address] | | | [place] [address] | + + + | Home Phone | | + + + | Preferred Language | Unknown | + + + | Marital Status | | + + + | Anabaptist Affiliation | Unknown | + + + | Race | Unknown | + + + | Ethnic Group | Unknown | + + + Author + + + | Author | [facility] | | | and Jadenana | + + + | Organization | [facility] | | | and [...] | | | | | [place] [address] | | + + + + + Care Team Providers + +------+ + | Care Glass Fitter Name | Role | Phone | + +------+ + | No Physician | PCP | Unavailable | + +------+ + Encounter Details +--------+---------+ + + + | Date | Type | Department | Care Team | Description | +--------+---------+ + + + | 04/19/ | Surgery | [facility] | Michael Fernandes | Cystoscopy, bladder | | 2019 | | [facility] | MD Yaw [address] | Botox, injection of | | | | [address] | [address] [place] | urethral bulking | | | | [place], [place] | [address] | agent | | | | [address] | | | | | | [phone] | | | +--------+---------+ + + + [...] + + + | Blood Pressure | 130/84 | 04/19/2018 3:00 PM | | | | | PST | | + + + + + | Pulse | 61 | 04/19/2018 3:00 PM | | | | | PST | | + + + + + | Temperature | 37.3 C (99.1 F) | 04/19/2018 1:51 PM | | | | | PST | | + + + + + | Respiratory Rate | 18 | 04/19/2018 3:00 PM | | | | | PST | | + + + + + | Oxygen Saturation | 95% | 04/19/2018 3:00 PM | | | | | PST | | + + + + + | Inhaled Oxygen | - | - | | | Concentration | | | | + + + + + | Weight | 91.4 kg (201 lb 8 | 04/19/2018 11:45 AM | | | | oz) | PST | | + + + + + | Height | 177.8 cm (5' 10") | 04/19/2018 11:45 AM | | | | | PST | | + + + + + | Body Mass Index | 28.91 | 04/19/2018 11:45 AM | | | | | PST | | + + + + + documented in this encounter Discharge Instructions Michael Hatfield MD - 04/19/2018Anil/christian in the office in 6 weeks. documented in this encounter Medications at Time [...] | | Take 1-2 tablets by | 10 | 0 | 04/19/19 | | | HYDROcodone-acetamin | mouth every [...] +---------+ + + | traZODone | Take 100 mg by mouth | | 0 | 03/30/19 | | | (DESYREL) 100 mg | nightly. 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 | + +--------+ +---+ + | ECG 12 LEAD | Routin | 04/19/2018 | | Results for this | | | e | 12:00 PM | | procedure are in the | | | | PST | | results section. | + +--------+ +---+ + documented in this encounter Results CBC no Differential (04/19/2018 12:27 PM PST) + + + + + + | Component | Value | Ref Range | Performed | Pathologist | | | | | At | Signature | + + + + + + | WBC | 5.4 | 4.0 - 11.0 K/uL | [facility] | | | | | | [facility] | | | | | | [facility] | | | | [facility] - | | | | | | LAB[facility]ATORY | | + + + + + + | RBC | 4.24 (L) | 4.30 - 5.70 | [facility] | | | | | M/uL | [facility] | | | | | | [facility] | | | | | | [facility] - | | | | | | LABORATORY | | + + + + + + | Hemoglobin | 13.4 (L) | 13.5 - 18.0 | [facility] | | | | | g/dL | [facility] | | | | | | [facility] | | | | | | [facility] - | | | | | | LABORATORY | | + + + + + + | Hematocrit | 41.0 | 40.0 - 51.0 % | [facility] | | | | | | [facility] | | | | | | [facility] | | | | | | [facility] - | | | | | | LABORATORY | | + + + + + + | MCV | 96.7 | 83.0 - 101.0 fL | [facility] | | | | | | [facility] | | | | | | [facility] | | | | | | [facility] - | | | | | | LABORATORY | | + + + + + + | MCH | 31.6 | 28.0 - 35.0 pg | [facility] | | | | | | [facility] | | | | | | [facility] | | | | | | [facility] - | | | | | | LABORATORY | | + + + + + + | MCHC | 32.7 | 32.0 - 36.0 | [facility] | | | | | g/dL | [facility] | | | | | | [facility] | | | | | | [facility] - | | | | | | LABORATORY | | + + + + + + | RDW-CV | 13.3 | <15.0 % | [facility] | | | | | | [facility] | | | | | | [facility] | | | | | | [facility] - | | | | | | LABORATORY | | + + + + + + | RDW-SD | 47.7 (H) | 35.1 - 46.3 fL | [facility] | | | | | | [facility] | | | | | | [facility] | | | | | | [facility] - | | | | | | LABORATORY | | + + + + + + | Platelet | 167 | 140 - 440 K/uL | [facility] | | | Count | | | [facility] | | | | | | [facility] | | | | | | [facility] - | | | | | | LABORATORY | | + + + + + + | MPV | 10.7 | 6.5 - 12.4 fL | [facility] | | | | | | [facility] | | | | | | [facility] | | | | | | [facility] - | | | | | | LABORATORY | | + + + + + + | % nRBC | 0 | 0 - 2 per 100 | [facility] | | | | | WBC's | [facility] | | | | | | [facility] | | | | | | [facility] - | | | | | | LABORATORY | | + + + + + + | Absolute | 0.00 | 0.00 - 0.01 | [facility] | | | nRBC | | K/uL | [facility] | | | | [...] | + + + + + | [facility] | [address] | [place] | [phone] | | [facility] | | [address] | | | - LABORATORY | | | | + + + + + ECG 12 lead (04/19/2018 12:00 PM PST) + + + + + + | Component | Value | Ref Range | Performed | Pathologist | | | | | At | Signature | + + + + + + | VENTRICULAR | 49 | BPM | [facility] | | | RATE EKG | | | | | + + + + + + | ATRIAL RATE | 49 | BPM | [facility] | | + + + + + + | P-R | 148 | ms | [facility] | | | INTERVAL | | | | | + + + + + + | QRS | 74 | ms | [facility] | | | DURATION | | | | | + + + + + + | Q-T | 436 | ms | [facility] | | | INTERVAL | | | | | + + + + + + | Q-T | 393 | ms | [facility] | | | INTERVAL | | | | | | (CORRECTED) | | | | | + + + + + + | P WAVE AXIS | 47 | degrees | [facility] | | + + + + + + | QRS AXIS | 10 | degrees | [facility] | | + + + + + + | T AXIS | 39 | degrees | [facility] | | + + + + + + | INTERPRETAT | Sinus | | [facility] | | | ION TEXT | bradycardiaOtherwise | | | | | | normal ECGNo previous | | | | | | ECGs availableConfirmed | | | | | | by DEVIN BENITES MD | | | | | | [id number]) on 04/19/2018 | | | | | | 7:54:42 PM | | | | + + + + + + + + | Specimen | + + | | + + + + + | Narrative | Performed At | + + + | | | + + + + +---------+ + + | Performing | Address | City/State/Zipcode | Phone Number | | Organization | | | | + +---------+ + + | [facility] | | | | + +---------+ + + documented in this encounter Visit Diagnoses Not on filedocumented in this encounter Administered Medications + +--------+---------+------+------+------+ | Medication Order | MAR | Action | Dose | Rate | Site | | | Action | Date | | | | + +--------+---------+------+------+------+ + +---+ | acetaminophen (TYLENOL) tablet | | | 1,000 mg 1,000 mg, Oral, EVERY 8 | | | HOURS (3 times per day), First | | | dose on [facility] 04/19/18 at 1500, For | | | 3 days, Start 8 hours after | | | pre-op dose., Post-op/Phase II | | + +---+ | | | + +---+ | albuterol 2.5 mg/3 mL nebulizer | | | solution 2.5 mg 2.5 mg, | | | Nebulization, ONCE PRN, Wheezing, | | | Starting [facility] 04/19/18 at 1150, | | | For 1 dose, RT will administer., | | | Pre-op | | + +---+ | | | + +---+ | albuterol 2.5 mg/3 mL nebulizer | | | solution 2.5 mg 2.5 mg, | | | Nebulization, ONCE PRN, Wheezing, | | | Starting [facility] 04/19/18 at 1340, | | | For 1 dose, Notify [...] glucose < 50, | | | Starting [place]em[place] 04/19/18 at 1150, | | | Repeat in 15 min [...] < 50, Starting [facility] | | | 04/19/18 at 1340, Give over 2 min. | | | [...] 25-50 mcg, Intravenous, | | | EVERY 15 MIN PRN, Pain, Give on | | | direction of physician, Starting | | | [facility]em[facility] 04/19/18 at 1150, For 4 doses, | | | Max total dose 100 mcg., Pre-op | | + +---+ | | | + +---+ | fentaNYL (PF) injection 25-50 | | | mcg 25-50 mcg, Intravenous, | | | EVERY 5 MIN PRN, Pain, Starting | | | Jemma 04/19/18 at 1340, Maximum | | | total dose 250 [...] PRN, | | | Pain, Starting [facility]em[facility] 04/19/18 at | | | 1436, If oral route not an | | [...] MIN PRN, | | | Pain, Starting Jemma 04/19/18 at | | | 1340, Maximum total dose 4 mg. | | [...] day), | | | First dose on J[facility] 04/19/18 at | | | 2200, For 9 doses, If urine | | | output is less than 240ml/8 hours | | | (30ml/hr) or if signs of | | | bleeding, contact MD and hold. | | | Administer with food or snack, | | | Post-op/Phase II | | + +---+ | | | + +---+ + +-------+ +-------+---+---+ | ketorolac (TORADOL) injection | Given | 04/19/19 | 15 mg | | | | 15 mg 15 mg, Intravenous, ONCE, | | 19 2:56 | | | | | Jemma 04/19/18 at 1445, For 1 dose, | | PM PST | | | | | If urine output is less than | | | | | | | 240ml/8 hours (30ml/hr) or if | | | | | | | signs of bleeding, contact MD and | | | | | | | hold., Post-op/Phase II | | | | | | + +-------+ +-------+---+---+ +---+---+ | | | +---+---+ + +---------+ +--------+-------+---+ | lactated ringers (LR) infusion | New Bag | 04/19/19 | 1,000 | 100 | | | at 10-100 mL/hr, Intravenous, | | 19 12:11 | mLs | mL/hr | | | CONTINUOUS, Starting Jemma 04/19/18 | | PM PST | | | | | at 1215, TKO., Pre-op | | | | | | + +---------+ +--------+-------+---+ + +---+ | | | + +---+ | meperidine (DEMEROL) injection | | | 12.5-25 mg 12.5-25 mg, | | | Intravenous, PRN, Shivering, | | | Starting Jemma 04/19/18 at 1340, For | | | 2 doses, May Repeat once in 5 | | | min., Recovery/Phase I | | + +---+ | | | + +---+ | midazolam (VERSED) 1 mg/mL | | | injection 1 mg 1 mg, | | | Intravenous, PRN, Anxiety, May | | | repeat Q 5 minutes prn, Starting | | | Jemma 04/19/18 at 1150, For 2 doses, | | | May repeat once in 5min. Hold | | | anxiolytic until after anesthesia | | | and surgical consent is | | | obtained, Pre-op | | + +---+ | | | + +---+ + +-------+ +-------+---+ + | onabotulinumtoxinA (BOTOX) | Given | 04/19/19 | 300 | | Surgical | | injection 300 Units 300 Units, | | 19 1:20 | Units | | Site | | Intradermal, ONCE, Jemma 04/19/18 at | | PM PST | | | | | 1215, For 1 dose, Pre-op | | | | | | + +-------+ +-------+---+ + +---+---+ | | | +---+---+ + +-------+ +------+---+---+ | ondansetron (ZOFRAN ODT) | Given | 04/19/19 | 8 mg | | | | disintegrating tablet 8 mg 8 mg, | | 19 12:11 | | | | | Oral, ONCE, Jemma 04/19/18 at 1215, | | PM PST | | | | | For 1 dose, Pre-op | | | | | | + +-------+ +------+---+---+ + +---+ | | | + +---+ | ondansetron (ZOFRAN) injection | | | 4 mg 4 mg, Intravenous, ONCE | | | PRN, Nausea, Starting Jemma 04/19/18 | | | at 1340, For 1 dose, | | | Recovery/Phase I | | + +---+ | | | + +---+ | oxyCODONE (ROXICODONE) tablet | | | 2.5-10 mg 2.5-10 mg, Oral, EVERY | | | 3 HOURS PRN, Pain, Starting Jemma | | | 04/19/18 at 1436, First dose must | | | be [...] | + +---+ + +-------+ +--------+---+---+ | phenazopyridine (PYRIDIUM) | Given | 04/19/19 | 200 mg | | | | tablet 200 mg 200 mg, Oral, 3 | | 19 2:56 | | | | | TIMES DAILY PRN, Urinary | | PM PST | | | | | Symptoms, urinary burning., | | | | | | | Starting [facility] 04/19/18 at 1436, | | | | | | | Administer with meals., | | | | | | | Post-op/Phase II | | | | | | + +-------+ +--------+---+---+ +---+---+ | | | +---+---+ documented in this encounter
--- OUTSIDE RECORDS SUMMARY | ~2019-08-23 | XMS | Encounter Summary ---
Demographics + + + | Address | [address] | | | [place] [address] | + + + | Home Phone | | + + + | Preferred Language | Unknown | + + + | Marital Status | | + + + | Restorationism Affiliation | Unknown | + + + | Race | Unknown | + + + | Ethnic Group | Unknown | + + + Author + + + | Author | [facility] | | | and Jadenana | + + + | Organization | [facility] | | | and Jadenana | [...] | | | | | [place] [address] | | + + + + + Care Team Providers + +------+ + | Care Fur Buyer Name | Role | Phone | + +------+ + | Lexie Cagle | PCP | | | METAL FORGER'S ASSISTANT | | | + +------+ + Reason for Visit + + + | Reason | Comments | + + + | Anticoagulation | | + + + Encounter Details +--------+ + + + + | Date | Type | Department | Care Team | Description | +--------+ + + + + | 01/22/ | Anti-coag | [facility] | Lexie Cagle | | | 2019 | Telephone | MEDICINE [address] | [address] | | | | | [address] [facility] | [facility] | | | | | [place] [address] | [place] [address] | | | | | [phone] | [phone] | | | | | | | [...] documented as of this encounter Progress Notes Daisy Duran RN - 01/22/2019 9:53 AM PDTPhone call to patient. Advised per Dru AMANDA to increase warfarin to 10mg daily and recheck INR in 1 week. He verbalized underst anding. Lexie Kathleen APRN - 01/22/2019 9:53 AM PDTIncrease warfarin to 10 mg daily, recheck i n 1 week [facility] Daisy huggins RN - 01/22/2019 9:53 AM PDTPatient said he has been taking warfarin 5 m g alternating with 10mg every other day since previous INR check on 01/10. This is differen t than the dosing instructions he was given which were to take Warfarin 10mg x 1 dose and 7. 5mg M W F with 5mg all other days. He states he did not miss any doses and has had no dietary changes. Please advise Lexie Khan APRN - 01/22/2019 9:53 AM PDTHas he had any dietary changes or miss ed doses in the last week? If not, he should just increase to 7.5 mg on the weekdays, with 5 mg on Monday and Monday recheck in 1 week. Daisy Edmonds RN - 01/22/2019 9:53 AM PDTOn patient's warfarin dose was changed to 10mg x 1 dose and 7.5mg M W F with 5mg all other d ays. INR reported on 01/21/19 from [facility] is 1.3. documented in this encounter Plan of Treatment +--------+---------+ + + + | Date | Type | Specialty | Care Team | Description | +--------+---------+ + + + | 11/12/ | Office | Sleep Medicine | Laith Sheffield PA | | | 2020 | Visit | | [address] | | | | | | [place] | | | | | | [id number] | | | | | | | | +--------+---------+ + + + documented as of this encounter Procedures + +--------+ + + + | Procedure Name | Priori | Date/Time | Associated Diagnosis | Comments | | | ty | | | | + +--------+ + + + | EXTERNAL LAB: | Routin | 01/21/2019 | | Results for this | | MAR INR | e | | | procedure are in the | | | | | | results section. | + +--------+ + + + documented in this encounter Results External Lab: [facility] INR (01/21/2019) + +---------+ + + + | Component | Value | Ref Range | Performed | Pathologist | | | | | At | Signature | + +---------+ + + + | INR, | 1.3 (A) | 0.9 - 1.2 | | | | External | | | | | + +---------+ + + + + + | Specimen | + + | Blood | + + documented in this encounter Visit Diagnoses Not on filedocumented in this encounter"
--- OUTSIDE RECORDS SUMMARY | ~2019-08-23 | XMS | Encounter Summary ---
Demographics + + + | Address | [address] | | | [place] [address] | + + + | Home Phone | | + + + | Preferred Language | Unknown | + + + | Marital Status | Single | + + + | Uatsdin Affiliation | YARSANISM | + + + | Race | [...] Team Providers + +------+ + | Care Resident Care Technician Name | Role | Phone | + +------+ + | Jose Hameed MD | PCP | | + +------+ + Encounter Details +--------+--------+ + + + | Date | Type | Department | Care Team | Description | +--------+--------+ + + + | 12/03/ | Travel | | | | | [...] | | | | | | [place] [address] | | +--------+ + + + + documented as of this encounter Visit Diagnoses Not on filedocumented in this encounter"
--- OUTSIDE RECORDS SUMMARY | ~2019-08-23 | XMS | Encounter Summary ---
Demographics + + + | Address | [address] | | | [place] [address] | + + + | Home Phone [...] + | Author | [facility] | | | and Jadenana | + + + | Organization | [facility] | | | and Jadenana | [...] | | | | | [place] [address] | | + + + + + Care Team Providers + +------+ + | Care Conductor Road Freight Name | Role | Phone | + +------+ + | Lexie Cagle | PCP | | | MOLD TOOLER | | | + +------+ + Reason for Visit + + + | Reason | Comments | + + + | Medication Prior | Pradaxa | | Authorization | | + + + Encounter Details +--------+ + + + + | Date | Type | Department | Care Team | Description | +--------+ + + + + | 09/14/ | Telephone | [facility] | Lexie Cagle | Medication Prior | | 2019 | | [facility] [address] | [address] | Authorization | | | | [facility] | [facility] | (Pradaxa ) | | | | [place] [address] | [place] [address] | | | | | [phone] | [phone] | | | | | | | [...] 2019 | Visit | | [address] | | | | | | [place] | | | | | | [address] | | | | | | | [...]
--- OUTSIDE RECORDS SUMMARY | ~2019-08-23 | XMS | Encounter Summary ---
Demographics + + + | Address | [address] | | | [place] [address] | + + + | Home Phone | | + + + | Preferred Language | Unknown | + + + | Marital Status | Single | + + + | Taoism Affiliation | MANDAEISM | + + + | Race | White | + + + | Ethnic Group | Not or | + + + Author + + + | Author | [facility] | + + + | Organization | [facility] | + + + | Address | Unknown | + + + | Phone | Unavailable | + + + Support + + +---------+ + | Name | Relationship | Address | Phone | + + +---------+ + | Theodore Marquez | ECON | Unknown | | + + +---------+ + Care Team Providers + +------+ + | Care Paint Mixer Machine Name | Role | Phone | + [...] | | | | | sclerosis | [address] | | | | | | ([facility]) | Nate | | | | | | Mounika | [address] | | | | | | of [facility] | [place], [place] | | | | | | disturbance | [address] | | | | | | Procedures | Phone: | | | | | | MRI BRAIN | [phone] | | | | | | MULTIPLE | Fax: | | | | | | SCLEROSIS | [phone] | | | | | | WWO CONTRAST | | | +--------+--------+ + + + + Reason for Visit Diagnostic Testing (Routine) [...] | | | | | sclerosis | [address] | | | | | | ([facility]) | Nate | | | | | | Mounika | [address] | | | | | | of memory | [place], [place] | | | | | | disturbance | [address] | | | | | | Procedures | Phone: | | | | | | MRI BRAIN | [phone] | | | | | | MULTIPLE | Fax: | | | | | | SCLEROSIS | [phone] | | | | | | WWO CONTRAST | | | +--------+--------+ + + + + Encounter Details +--------+ + + + + | Date | Type | Department | Care Team | Description | +--------+ + + + + | 12/31/ | Hospital | Diagnostic Imaging | | Canceled (Provider | | 2016 | Encounter | Services at [facility] | | Request) | | | | [address] | | | | | | Edu[address] | | | | | | [facility] | | | | | | [place], [place] | | | | | | [address] | | | | | | [phone] | | | +--------+ + + + [...] | 2019 | | Oncology | [place], | | | | | | [place] [address] | | +--------+ + + + + [...] WWO | e | 8:36 AM | ([facility]) Complaints | procedure are in the | | CONTRAST | | PDT | of memory | results section. | | | | | disturbance | | + +--------+ + + + documented in this encounter Results MRI BRAIN MULTIPLE SCLEROSIS WWO CONTRAST (01/06/2016 8:36 AM PDT) + + + + + + | Component | Value | Ref Range | Performed | Pathologist | | | | | At | Signature | + + + + + + | MR BRAIN | EXAM: MRI brain without | | | | | MULTIPLE | and with contrast, MS | | | | | SCLEROSIS | protocol HISTORY: MS | | | | | WWO | COMPARISON: Outside | | | | | CONTRAST | brain MRI 12/10/13 | | | | | | TECHNIQUE: MS protocol | | | | | | multiplanar | | | | | | multi-sequence MRI of | | | | | | the brain without | | | | | | andwith gadolinium based | | | | | | intravenous contrast. | | | | | | 1.5 La MRI. | | | | | | FINDINGS: Brain: | | | | | | Confluent from extensive | | | | | | T2/flair hyperintensity | | | | | | of the | | | | | | supratentorialwhite | | | | | | matter is unchanged | | | | | | compared to 2014 MRI. No | | | | | | new area of | | | | | | [id number] is | | | | | | evident. There is no | | | | | | abnormal intracranial | | | | | | enhancement. | | | | | | [id number] within | | | | | | basis toby is similar to | | | | | | prior. Generalized | | | | | | brainparenchymal volume | | | | | | loss is also similar to | | | | | | prior. No hydrocephalus | | | | | | orherniation or mass. No | | | | | | acute infarction. Soft | | | | | | tissues and marrow: | | | | | | UnremarkableFace and | | | | | | orbits: Visualized | | | | | | portions are | | | | | | unremarkable | | | | | | IMPRESSION:Unchanged | | | | | | confluent T2 | | | | | | hyperintensity of the | | | | | | supratentorial white | | | | | | matter ascompared to | | | | | | 2014 MRI. No abnormal | | | | | | enhancement. Attending | | | | | | Radiologists: SENG | | | | | | RAYMUNDO BLANTONuthor: | | | | | | SENG BLANTON MD I | | | | | | personally reviewed the | | | | | | images and, if | | | | | | necessary, edited the | | | | | | report. I agreewith the | | | | | | report as now presented. | | | | | | | | | | | | Final/Electronically | | | | | | marissa / SENG | | | | | | HARVINDER 01/06/2016 | | | | | | 20:16 PM | | | | + + [...] (HCC) Multiple sclerosis | + + | Complaints of memory disturbance Memory loss | + + documented in this encounter"
--- OUTSIDE RECORDS SUMMARY | ~2019-08-23 | XMS | Encounter Summary ---
Demographics + + + | Address | [address] | | | [place] [address] | + + + | Home Phone | | + + + | Preferred Language | Unknown | + + + | Marital Status | Single | + + + | Christian Affiliation | BUDDHIST | + + + | Race | [...] Team Providers + +------+ + | Care Tram Driver Name | Role | Phone | + [...] | | | | | | [place] [address] | | +--------+ + + + + [...]
--- OUTSIDE RECORDS SUMMARY | ~2019-08-23 | XMS | Encounter Summary ---
Demographics + + + | Address | [address] | | | [place] [address] | + + + | Home Phone | | + + + | Preferred Language | Unknown | + + + | Marital Status | | + + + | Adventism Affiliation | Unknown | + + + | Race | Unknown | + + + | Ethnic Group | Unknown | + + + Author + + + | Author | [facility] | | | and Jadenana | + + + | Organization | [facility] [...] | | | | | [place] [address] | | + + + + + Care Team Providers + +------+ + | Care Corking Machine Operator Name | Role | Phone | + +------+ + | Lexie Cagle | PCP | | | PARTS RUNNER | | | + +------+ + Encounter Details +--------+ + + + + | Date | Type | Department | Care Team | Description | +--------+ + + + + | 09/28/ | Anti-coag | [facility] | CagleLexie hankins | | | 2019 | Telephone | MEDICINE [address] | [address] | | | | | [address] [place] | [address] [place] | | | | | [place] [address] | [place] [address] | | | | | [phone] | [phone] | | | | | | | [...] of this encounter Progress Notes Kerline Irizarry, Parboiler - 09/28/2018 3:20 PM PDTCalled and left message for pt re garding results. 1:3 3 PM PDTCoby Siddiqi - 09/28/2018 3:20 PM PDTPatient called back stating labs are done, carmelo gibbs advise. Sabine Kathleen APRN - 09/28/2018 3:20 PM PDTINR is within range. Stay on the same dose of warf heriberto (5mg nightly) and recheck in 2 weeks. Please remind him to call us once he has it done. documented in this encounter Plan of Treatment +--------+---------+ + + + | Date | Type | Specialty | Care Team | Description | +--------+---------+ + + + | 11/12/ | Office | Sleep Medicine | Laith Sheffield PA | | | 2019 | Visit | | [address] | | | | | | [place] | | | | | | [address] | | | | | | | | +--------+---------+ + + + documented as of this encounter Procedures + +--------+ + + + | Procedure Name | Priori | Date/Time | Associated Diagnosis | Comments | | | ty | | | | + +--------+ + + + | EXTERNAL LAB: | Routin | 09/28/2018 | | Results for this | | PROTIME INR | e | | | procedure are in the | | | | | | results section. | + +--------+ + + + documented in this encounter Results External Lab: [facility] (09/28/2018) + +-------+ + + + | Component | Value | Ref Range | Performed | Pathologist | | | | | At | Signature | + +-------+ + + + | INR, | 2.1 | | | | | External | | | | | + +-------+ + + + + + | Specimen | + + | Blood | + + documented in this encounter Visit Diagnoses Not on filedocumented in this encounter"
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
--- OUTSIDE RECORDS SUMMARY | ~2019-08-23 | XMS | Encounter Summary ---
Demographics + + + | Address | [address] | | | [place] [address] | + + + | Home Phone | | + + + | Preferred Language | Unknown | + + + | Marital Status | Single | + + + | Voodoo Affiliation | DRUZE | + + + [...] Team Providers + +------+ + | Care Vest Backer Name | Role | Phone | + +------+ + | Jose Hameed MD | PCP | | + +------+ + Reason for Visit +--------+ + | Reason | Comments | +--------+ + | Other | Scan Records | +--------+ + Encounter Details +--------+ + + + + | Date | Type | Department | Care Team | Description | +--------+ + + + + | 03/15/ | Abstract | Neurology at | Praful Sanchez, | Other (Scan Records) | | 2016 | | [place] [facility] & | DO | | | | | Healing [address] | | | | | | [place] Mailcode: [facility] | | | | | | [facility] | | | | | | and Healing, | | | | | | Building | | | | | | Floor [place], [place] | | | | | | [address] | | | | | | [phone] | | | +--------+ + + + [...] | | | | | | [place] [address] | | +--------+ + + + + documented as of this encounter Visit Diagnoses Not on filedocumented in this encounter"
--- OUTSIDE RECORDS SUMMARY | ~2019-08-23 | XMS | Encounter Summary ---
Demographics + + + | Address | [address] | | | [place] [address] | + + + | Home Phone | | + + + | Preferred Language | Unknown | + + + | Marital Status | Single | + + + | Zoroastrianism Affiliation | BAHAI | + + + | Race | White | + + + | Ethnic Group | Not or | + + + Author + + + | Author | [facility] | + + + | Organization | [facility] | + + + | Address | Unknown | + + + | Phone | Unavailable | + + + Support + + +---------+ + | Name | Relationship | Address | Phone | + + +---------+ + | Theodore Marquez | ECON | Unknown | | + + +---------+ + Care Team Providers + +------+ + | Care Tie Tape Machine Operator Name | Role | Phone | + +------+ + | Jose Hameed MD | PCP | | + +------+ + Encounter Details +--------+ + + + + | Date | Type | Department | Care Team | Description | +--------+ + + + + | 10/05/ | Telephone | Digestive Health | Ivonne Menezes, | | | 2016 | | [place] at [facility] [address] | [employer] ADMINISTRATOR [address] | | | | | [address] | , [facility] [address] | | | | | Mailcode: Center | [place], [place] | | | | | [facility] and | [address] | | | | | [facility], [facility] [address] | [phone] | | | | | [place], [place] | | | | | | [address] | | | | | | [phone] | | | +--------+ + + + [...] | | | | | | [place] [address] | | +--------+ + + + + documented as of this encounter Visit Diagnoses Not on filedocumented in this encounter"
--- OUTSIDE RECORDS SUMMARY | ~2019-08-23 | XMS | Encounter Summary ---
Demographics + + + | Address | [address] | | | [place] [address] | + + + | Home Phone | | + + + | Preferred Language | Unknown | + + + | Marital Status | Single | + + + | Druze Affiliation | HINDU | + + + [...] Team Providers + +------+ + | Care Temperature Regulator Pyrometer Name | Role | Phone | + [...] + + | 06/05/ | Hospital | [facility] | A, [address] | | | 2019 | Encounter | Clinics at S | [address] [place], | | | | | [facility] | [place] [address] | | | | | for Health and | | | | | | Healing [address] | | | | | | [place], [place] | | | | | | [address] | | | | | | [phone] | | | +--------+ + + + [...] Pressure | 136/90 | 06/05/2018 3:25 PM | | | | | PDT | | + + + + + | Pulse | 78 | 06/05/2018 3:25 PM | | | | | PDT | | + + + + + | Temperature | 37.3 C (99.2 F) | 06/05/2018 3:25 PM | | | | | PDT | | + + + + + | Respiratory Rate | 14 | 06/05/2018 2:18 PM | | | | | PDT | | + + + + + | Oxygen Saturation | 96% | 06/05/2018 3:25 PM | | | | | PDT | | + + + + + | Inhaled Oxygen | - | - | | | Concentration | | | | + + + + + | Weight | 88.6 kg (195 lb 4.8 | 06/05/2018 10:30 AM | | | | oz) | PDT | | + + + + + | Height | - | - | | + + + + + | Body Mass Index | 28.02 | 10/31/2016 3:28 PM | | | [...] Inject into the | | 0 | 09/29/20 | | | 1,000 mcg/mL | muscle [...] + + + +---------+ + + | polyethylene | Mix in liquid and | | 0 | 12/28/19 | | | glycol 17 [...] + + + +---------+ + + | senna (SENNA) 8.6 | Take by mouth. | | 0 | 12/28/19 | | | mg oral tablet | | | | 18 | | + + + +---------+ + + documented as of this encounter Progress Notes Екатерина [...] and Transfusions doc flowsheet for treatment details. documented in this en counter Plan of Treatment +--------+ + + + + | Date | Type | Specialty | Care Team | Description | +--------+ + + + + | 10/31/ | Appointment | Hematology & | Onc, Gen [address] | | | 2019 | | Oncology | [address] [place], | | | | | | [place] [address] | | +--------+ + + + + [...] | acetaminophen (TYLENOL) tablet | Given | 06/06/19 | 650 mg | | | | 650 mg 650 mg, oral, ONCE, 1 | | 19 10:47 | | | | | dose, 06/05/18 at 1030 | | AM PDT | | | | + +--------+ +--------+------+------+ +---+---+ | | | +---+---+ + +-------+ +-------+---+---+ | loratadine (CLARITIN) tablet 10 | Given | 06/06/19 | 10 mg | | | | mg 10 mg, oral, NEEDED, 1 | | 19 10:47 | | | | | dose, Starting e 06/05/18 at | | AM PDT | | | | | 1024, Until Mon06/05/18 at 1047, | | | | | | | Give instead of diphenhydrAMINE | | | | | | | 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 | | | | | | + +-------+ +-------+---+---+ +---+---+ | | | +---+---+ + +-------+ +--------+---+---+ | methylPREDNISolone sod succ | Given | 06/06/19 | 100 mg | | | | (PF) (SOLU-MEDROL) injection 100 | | 19 10:50 | | | | | mg 100 mg, intravenous, ONCE, 1 | | AM PDT | | | | | dose, Mon06/05/18 at 1030 | | | | | | + +-------+ +--------+---+---+ +---+---+ | | | +---+---+ + +---------+ +--------+ +---+ | ocrelizumab (OCREVUS) 600 mg in | New Bag | 06/06/19 | 600 mg | 40 mL/hr | | | NaCl 0.9 % (NS) IV 600 mg, | | 19 11:34 | | | | | intravenous, ONCE, 1 dose, Tue | | AM PDT | | | | | 06/05/18 at 1030 | | | | | | + +---------+ +--------+ +---+ +---+---+ | | | +---+---+ documented in this encounter"
--- OUTSIDE RECORDS SUMMARY | ~2019-08-23 | XMS | Encounter Summary ---
Demographics + + + | Address | [address] | | | [place] [address] | + + + | Home Phone | | + + + | Preferred Language | Unknown | + + + | Marital Status | | + + + | Confucianist Affiliation | Unknown | + + + | Race | Unknown | + + + | Ethnic Group | Unknown | + + + Author + + + | Author | [facility] | | | and Jadenana | + + + | Organization | [facility] | | | and [...] | | | | | [place] [address] | | + + + + + Care Team Providers + +------+ + | Care Health Education Teacher Name | Role | Phone | + +------+ + | Lexie Cagle | PCP | | | MENTAL HEALTH CLINICIAN | | | + +------+ + Reason for Visit + + + | Reason | Comments | + + + | Follow-up | chronic fatigue | + + + Encounter Details +--------+---------+ + + + | Date | Type | Department | Care Team | Description | +--------+---------+ + + + | 08/08/ | Office | [facility] | Lexie Cagle | Chronic fatigue | | 2019 | Visit | MEDICINE [address] | [address] | disorder (Primary | | | | [address] | [address] [facility] | Dx); Multiple | | | | [place] [address] | [place] [address] | sclerosis (HCC); | | | | [phone] | [phone] | Hypoglycemia; | | | | | | Neurogenic bladder; | | | | | | Persistent | | | | | | depressive disorder; | | | | | | Psychophysiological | | | | | | insomnia; B12 | | | | | | deficiency; H/O | | | | | | Benito-en-Y gastric | | | | | | bypass; Vitamin D | | | | | | deficiency | +--------+---------+ + + + Social History [...] + + + | Blood Pressure | 124/84 | 08/08/2018 2:58 PM | | | | | PDT | | + + + + + | Pulse | 80 | 08/08/2018 2:58 PM | | | | | PDT | | + + + + + | Temperature | 36.2 C (97.2 F) | 08/08/2018 2:58 PM | | | | | PDT | | + + + + + | Respiratory Rate | 16 | 08/08/2018 2:58 PM | | | | | PDT | | + + + + + | Oxygen Saturation | 96% | 08/08/2018 2:58 PM | | | | | PDT | | + + + + + | Inhaled Oxygen | - | - | | | Concentration | | | | + + + + + | Weight | 90.3 kg (199 lb) | 08/08/2018 2:58 PM | | | | | PDT | | + + + + + | Height | 177.8 cm (5' 10") | 08/08/2018 2:58 PM | | | | | PDT | | + + + + + | Body Mass Index | 28.55 | 08/08/2018 2:58 PM | | | | | PDT | | + + + + + documented in this encounter Progress Notes Lexie Cagle, MENTAL HEALTH CLINICIAN - 08/08/2018 3:00 PM PDTFormatting of this note might be di fferent from the original. Subjective: Mian Marquez is a 68 y.o. male patient here for Follow-up (chronic fatigue) Mian recently underwent a left wrist scaphoid excision and [address] Sepulveda at [facility]. His left hand is still significantly swollen and he has been having pa in that is moderately well controlled with oxycodone as prescribed by Dr Sepulveda. Wears his spli nt as directed. He was started on amantadine by his neurologist for treatment of his chronic fatigue. Mian reports that he does not take it regularly and understands that it will not work unless he takes it as directed. He reports that if a medication does not provide immediate relief, he usually wont take it. Continues to struggle significantly with fatigue. Scheduled to receive B12 and iron infusio n with [facility] in [place] this . He is having burning with his catheter and is worried that there is an infection. Is planni ng to stop by urology for eval after his appt today. Does not eat regularly and continues to have frequent hypoglycemic episodes. He drinks galina t when he remembers. Admits that he knows what to do, but has no desire at all to eat. Depression is not well controlled. His psychiatrist had recommended ECT, but he declined it due to transportation concerns (would need to be in [place] regularly). Admits to often th inking about and doesn't know why he continues to wake up every morning. He does not h ave any plans for self harm and states that his daughter and grandchildren help to keep him safe from self harm. I reviewed recent notes from neurology, urology, and surgery. Outpatient Encounter Medications as of 08/08/2018 Medication Sig Dispense Refill amantadine (SYMMETREL) 100 mg capsule Take by mouth. cephalexin (KEFLEX) 500 mg capsule Take 500 mg by mouth. cholecalciferol (CHOLECALCIFEROL) 5000 units TABS Take 5,000 Units by mouth Daily. [DISCONTINUED] DULoxetine (CYMBALTA) [address] capsule Take 90 mg by mouth Daily. DULoxetine (CYMBALTA) [address] capsule Take 60 mg by mouth Daily. oxybutynin (DITROPAN-XL) 10 MG 24 hr tablet [...] facility-administered encounter medications on file as of 08/08/2018. Immunization History Administered Date(s) Administered INFLUENZA 67 Y OR >, TRIVALENT HIGH-DOSE 03/27/2015 INFLUENZA PF QUAD(PED/ADOL/ADULT),PSKT or VIAL 12/10/2015, 01/26/2017 INFLUENZA, UNSPECIFIED FORMULATION 03/11/2014, 12/26/2015, 03/27/2017 PNEUMOCOCCAL CONJUGATE 13-VALENT (PCV13) 03/27/2014, 12/26/2015, 06/29/2017 PNEUMOCOCCAL POLYSACCHARIDE 23-VALENT (PPSV23) 03/27/2014, 09/01/2015 PNEUMOCOCCAL, UNSPECIFIED FORMULATION 03/27/2014 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 Multiple sclerosis (HCC) Neurogenic bladder Sleep apnea not using CPAP Past Surgical History: Procedure Laterality Date BACK SURGERY nerve stimulators BLADDER SURGERY N/A 06/20/2018 Procedure: Cystoscopy, suprapubic catheter placement; Surgeon: Michael Fernandes MD; Location: [facility] MAIN OR CHOLECYCTOSTOMY CYSTOSCOPY N/A 04/19/2018 Procedure: Cystoscopy, bladder Botox, injection of urethral bulking agent; Surgeon: Gina Fernandes MD; Location: [facility] MAIN OR GASTRIC BYPASS SURGERY 2001 [...] file Review of Systems Constitutional: Positive for malaise/fatigue. Genitourinary: Positive for dysuria. Musculoskeletal: Positive for joint pain. Psychiatric/Behavioral: Positive for depression. Negative for substance abuse. Objective: BP 124/84 | Pulse 80 | Temp 36.2 C (97.2 F) (Temporal) | Resp 16 | Ht 1.778 m (5' 1 0") | Wt 90.3 kg (199 lb) | SpO2 96% | BMI 28.55 kg/m Physical Exam Constitutional: He is oriented to person, place, and time and well-developed, well-nourishe d, and in no distress. HENT: Head: Normocephalic. Pulmonary/Chest: Effort normal. Neurological: He is alert and oriented to person, place, and time. Skin: Skin is warm and dry. Psychiatric: Mood and affect normal. Assessment/Plan: Assessment: 1. Chronic fatigue disorder 2. Multiple sclerosis (HCC) 3. Hypoglycemia 4. Neurogenic bladder 5. Persistent depressive disorder 6. Psychophysiological insomnia 7. B12 deficiency 8. H/O Benito-en-Y gastric bypass 9. Vitamin D deficiency Plan: Again reviewed dietary modification including small frequent meals throughout the day, sett ing an alarm to remind him to snack, and keeping quick sources of glucose with him at all ti mes. Advised taking amantidine as prescribed for improved energy. Continue to follow with ur ology for ongoing issues with neurogenic bladder. Recommended considering ECT again as his d epression has been treatment resistant and is likely contributing to his profound fatigue an d decreased appetite. Reviewed signs and symptoms that would warrant emergent evaluation. Patient verbalized unde rstanding. Return in about 3 months (around 11/08/2018). Patient understands, accepts, and agrees with this plan. Over 25 minuntes spent in face to face time with this patient today. > 50% of time academic counselor ing regarding the listed conditions, options for treatment, and possible risks, and coordina ting care. Please see assessment and plan for further details Lexie Cagle DNP, SOFIA, AGNP-CElectronically signed by SOFIA Sky 08/08/2018 3:47 PM PDTdocumented in this encounter Plan of Treatment +--------+---------+ + + + | Date | Type | Specialty | Care Team | Description | +--------+---------+ + + + | 11/12/ | Office | Sleep Medicine | Laith Sheffield PA | | | 2019 | Visit | | [address] | | | | | | [place] | | | | | | [id number] | | | | | | | | +--------+---------+ + + + documented as of this encounter Visit Diagnoses + + | Diagnosis | + + | Chronic fatigue disorder - Primary Chronic fatigue syndrome | + + | Multiple sclerosis (HCC) Multiple sclerosis | + + | Hypoglycemia Hypoglycemia, unspecified | + + | Neurogenic bladder Neurogenic bladder, NOS | + + | Persistent depressive disorder | + + | Psychophysiological insomnia Persistent disorder of initiating or maintaining sleep | + + | B12 deficiency Other B-complex deficiencies | + + | H/O Benito-en-Y gastric bypass Bariatric surgery status | + + | Vitamin D deficiency Unspecified vitamin D deficiency | + + documented in this encounter
--- OUTSIDE RECORDS SUMMARY | ~2019-08-23 | XMS | Encounter Summary ---
Demographics + + + | Address | [address] | | | [place] [address] | + + + | Home Phone | | + + + | Preferred Language | Unknown | + + + | Marital Status | Single | + + + | Gnosticist Affiliation | NONDENOMINATIONAL | + + + [...] Team Providers + +------+ + | Care Air Intelligence Specialist Name | Role | Phone | [...] | | Hematology & | Diagnoses | Mass, | [place], | | | | Oncology | Multiple | MD Christian | MD Patrick | | | | | sclerosis | [address] | [address] | | | | | (HCC) | [place] | Nanette | | | | | Procedures | [address] | [place], [place] | | | | | CONSULT TO | [place], [place] | [address] | | | | | HEMATOLOGY / | [address] | Phone: | | | | | ONCOLOGY | Phone: | [phone] | | | | | | [phone] | Fax: | | | | | | Fax: | [phone] | | | | | | [phone] | | +--------+--------+ + + + + Reason for Visit + + + | Reason | Comments | + + + | Return Patient | | + + + Office Visit - E/M Services (Routine) +--------+--------+ + + + + | Status | Reason | Specialty | Diagnoses / | Referred By | Referred To | | | | | Procedures | Contact | Contact | +--------+--------+ + + + + | Closed | | Neurology | | [facility] | | | | | | Epic Dept | [facility] | | | | | | | [address] | | | | | | | [address] | | | | | | | Mailcode: | | | | | | | [facility] | | | | | | | for [facility] | | | | | | | and Healing, | | | | | | | [address], | | | | | | | 8th Floor | | | | | | | [place], [place] | | | | | | | [address] | | | | | | | Phone: | | | | | | | [phone] | | | | | | | Fax: | | | | | | | [phone] | +--------+--------+ + + + + Encounter Details +--------+---------+ + + + | Date | Type | Department | Care Team | Description | +--------+---------+ + + + | 09/19/ | Office | Neurology at | Christian Maldonado MD | Multiple sclerosis | | 2017 | Visit | [facility] & | [address] | ([facility]) (Primary Dx); | | | | Healing [address] [place], | Chronic low back | | | | Ave Mailcode: [facility] | [place] [address] | pain without | | | | [facility] | [phone] | sciatica, | | | | and Healing, | | unspecified back | | | | | | pain laterality; | | | | Floor [place], [place] | | Neurogenic bladder | | | | [address] | | | | | | [phone] | | | +--------+---------+ + + + [...] + + + | Blood Pressure | 140/87 | 09/19/2016 8:34 AM | | | | | PDT | | + + + + + | Pulse | 62 | 09/19/2016 8:34 AM | | | | | PDT [...] + + + + | Weight | 91.2 kg (201 lb 1.6 | 09/19/2016 8:34 AM | | | | oz) | PDT | | + + + + + | Height | - | - | | + + + + + | Body Mass Index | 28.85 | 09/25/2015 9:58 AM | | | | | PDT | | + + + + + documented in this encounter Progress Notes Christian Maldonado MD - 09/19/2016 8:30 AM PDT [facility] Medical Problems 1. Multiple sclerosis Avonex [id number] (treatment for 2 years) Rebif for 2.5 years; discontinued for disease activity Tysabri 2004- 2008; discontinued for positive SARAH virus Ab Tecfidera for a couple months; discontinued secondary to side effects Copaxone 2013 - November 2015 2. Hx of B12 deficiency 3. Neurogenic Bladder 4. GERD 5. Hx of Benito-en-Y for morbid obesity 6. Depression 7. S/P lumbar surgery for radiculopathy. 8. Chronic back pain with placement of spinal stimulator, 2011, replaced last week with shanell singh and non- rechargeable battery ([employer] stimulator). 9. CHRISTEN INTERVAL HISTORY: Mr. Marquez RTC for follow up. He reports he is having increased difficul ties with his bladder function. Reports trouble with leakage with bladder. His urologist r ecommended Sudafed. He also reports increased difficulties with his pain. Will be having h is stimulator replaced. He continues to be bothered by significant fatigue and asks to rest art Adderall or Provigil. He reports he underwent neuropsych testing and he asked about the results( I explained that the results are pending). Interested in treatment with Ocrevus. Current Outpatient Prescriptions Medication Sig Cholecalciferol, Vitamin D3, (VITAMIN D3) 5,000 unit oral tablet Take 5,000 Units by [facility] once daily. cyanocobalamin 1,000 mcg/mL injection solution [...] Adhesive tape Physical Examination: Vital Signs: BP 140/87 | Pulse 62 | Wt 91.2 kg (201 lb 1.6 oz) | BMI 28.85 kg/(m^2) General: He is no apparent physical [...] intact throughout to light touch although decreased in the right leg compared to left. Vibratory sensation in decrease distally, all 4 extremities. Cerebellar testing shows slowed audqlc-ed-[id number]. Ga it: Antalgic casual gait, very difficult to tandem walk as he had to reach out for support. Walks 25 feet in 8.52 sec. Timed Walk (25'): 08.52 (09/19/16 0835) Impression: 1. Multiple sclerosis 2. Depression. 3. Hx Benito-en-Y with hx of B12 deficiency. 4. Vitamin D deficiency. 5. Complaints of worsening cognitive function. 6. Fatigue 7. Low back pain His MS is stable today. Will continue his Vitamin D supplements and gabapentin. Will rest art Provigil for his fatigue symptoms. Discussed Ocrevus treatment today. PAR re: Ocrevus . He will undergo screening labs today. Plan: 1. RTC in 3 months. 2. Continue current medications. 3. Labs today including Hep B panel. 4. Referral to Dr. Claire. 5. Restart Provigil 200 mg daily for fatigue. documented in this enco unter Plan of Treatment +--------+ + + + + | Date | Type | Specialty | Care Team | Description | +--------+ + + + + | 10/31/ | Appointment | Hematology & | Onc, Gen [address] | | | 2019 | | Oncology | [address] [place], | | | | | | [place] [address] | | +--------+ + + + + documented as of this encounter Results HEPATITIS B CORE AB, SERUM (09/19/2016 9:20 AM PDT) + + + + + + | Component | Value | Ref Range | Performed | Pathologist | | | | | At | Signature | + + + + + + | HEP B CORE | Not Detected | Not Detected | [facility] | | | AB | | | LABORATORY | | | | | | SERVICES, | | | | | | CORE | | + + + + + + + + | Specimen | + + | Blood - Blood | | (substance) | + + + + + | Narrative | Performed At | + + + | Giovani baldwin effective 2016. | [facility] | | [facility] | | | [place] | + + + + + + + + | Performing | Address | City/State/Zipcode | Phone Number | | Organization | | | | + + + + + | [facility] | [address] | [place] [address] | | | KAREN RODRIGUE[place] | [address] | | | + + + + + HEPATITIS B SURFACE AG W/REFLEX IF INDICATED (09/19/2016 9:20 AM PDT) + + + + + + | Component | Value | Ref Range | Performed | Pathologist | | | | | At | Signature | + + + + + + | HEPATITIS B | | | [facility] | | | SURFACE | | | LABORATORY | | | AG, SERUM | | | SERVICES, | | | | | | CORE | | + + + + + + | HEP B | Not Detected | Not Detected | [facility] | | | SURFACE AG | | | LABORATORY | | | | | | SERVICES, | | | | | | CORE | | + + + + + + + + | Specimen | + + | Blood - Blood | | (substance) | + + + + + | Narrative | Performed At | + + + | Giovani baldwin effective 2016. | [facility] | | [facility] | | | [place] | + + + + + + + + | Performing | Address | City/State/Zipcode | Phone Number | | Organization | | | | + + + + + | [facility] | [address] | [place] [address] | | | KAREN RODRIGUEZ | [address] | | | + + + + + HEPATITIS B SURFACE AB QUAL, SERUM (09/19/2016 9:20 AM PDT) + + + + + + | Component | Value | Ref Range | Performed | Pathologist | | | | | At | Signature | + + + + + + | HEP B | Not Detected | Not Detected | [facility] | | | SURFACE AB | | | LABORATORY | | | QUAL | | | SERVICES, | | | | | | CORE | | + + + + + + + + | Specimen | + + | Blood - Blood | | (substance) | + + + + + | Narrative | Performed At | + + + | Giovani reis lab effective 2016. | [facility] | | | LABORATORY | | | SERVICES, CORE | + + + + + + + + | Performing | Address | City/State/Zipcode | Phone Number | | Organization | | | | + + + + + | [facility] | [address] | [place] [address] | | | SERVICES, CORE | [address] | | | + + + + + COMPLETE METABOLIC SET (NA,K,CL,CO2,BUN,CREAT,GLUC,CA,AST,ALT,BILI TOTAL,ALK PHOS,ALB,PROT TOTAL) (09/19/2016 9:20 AM PDT) + +---------+ + + + | Component | Value | Ref Range | Performed | Pathologist | | | | | At | Signature | + +---------+ + + + | GLUCOSE, | 118 (H) | 60 - 99 mg/dL | [facility] | | | PLASMA | | | LABORATORY | | | (LAB) | | | SERVICES, | | | | | | CORE | | + +---------+ + + + | BUN, PLASMA | 22 (H) | 6 - 20 mg/dL | [facility] | | | (LAB) | | | LABORATORY | | | | | | SERVICES, | | | | | | CORE | | + +---------+ + + + | CREATININE | 0.91 | 0.70 - 1.30 | [facility] | | | PLASMA | | mg/dL | LABORATORY | | | (LAB) | | | SERVICES, | | | | | | CORE | | + +---------+ + + + | EGFR | >60 | >60 mL/min | [facility] | | | - | | | LABORATORY | | | [place] | | | SERVICES, | | | | | | CORE | | + +---------+ + + + | EGFR NON | >60 | >60 mL/min | [facility] | | | -CHARLENE | | | LABORATORY | | | RICAN | | | SERVICES, | | | | | | CORE | | + +---------+ + + + | SODIUM, | 144 | 136 - 145 | [facility] | | | PLASMA | | mmol/L | LABORATORY | | | (LAB) | | | SERVICES, | | | | | | CORE | | + +---------+ + + + | POTASSIUM, | 4.2 | 3.4 - 5.0 | [facility] | | | PLASMA | | mmol/L | LABORATORY | | | (LAB) | | | SERVICES, | | | | | | CORE | | + +---------+ + + + | CHLORIDE, | 108 | 97 - 108 mmol/L | [facility] | | | PLASMA | | | LABORATORY | | | (LAB) | | | SERVICES, | | | | | | CORE | | + +---------+ + + + | TOTAL CO2, | 32 | 21 - 32 mmol/L | [facility] | | | PLASMA | | | LABORATORY | | | (LAB) | | | SERVICES, | | | | | | CORE | | + +---------+ + + + | CALCIUM, | 8.7 | 8.6 - 10.2 | [facility] | | | PLASMA | | mg/dL | LABORATORY | | | (LAB) | | | SERVICES, | | | | | | CORE | | + +---------+ + + + | CALCIUM(ALB | 8.9 | 8.6 - 10.2 | [facility] | | | CORRECTED) | | mg/dL | LABORATORY | | | | | | SERVICES, | | | | | | CORE | | + +---------+ + + + | BILIRUBIN | 0.9 | 0.3 - 1.2 mg/dL | [facility] | | | TOTAL | | | LABORATORY | | | | | | SERVICES, | | | | | | CORE | | + +---------+ + + + | TOTAL | 6.8 | 6.4 - 8.2 g/dL | [facility] | | | PROTEIN, | | | LABORATORY | | | PLASMA | | | SERVICES, | | | (LAB) | | | CORE | | + +---------+ + + + | ALBUMIN, | 3.8 | 3.5 - 4.7 g/dL | [facility] | | | PLASMA | | | LABORATORY | | | (LAB) | | | SERVICES, | | | | | | CORE | | + +---------+ + + + | ALK PHOS | 67 | 56 - 119 U/L | [facility] | | | | | | LABORATORY | | | | | | SERVICES, | | | | | | CORE | | + +---------+ + + + | AST(SGOT) | 12 | <=41 U/L | [facility] | | | | | | LABORATORY | | | | | | SERVICES, | | | | | | CORE | | + +---------+ + + + | ALT (SGPT) | 18 | <=60 U/L | [facility] | | | | | | LABORATORY | | | | | | SERVICES, | | | | | | CORE | | + +---------+ + + + | ANION GAP | 4 | mmol/L | [facility] | | | | | | LABORATORY | | | | | | SERVICES, | | | | | | CORE | | + +---------+ + + + | ANION | 4 | 4 - 11 mmol/L | [facility] [...] using the MDRD equation recommended by the | [facility] | | National Kidney Disease Education Program. Estimated GFR | LABORATORY | | Interpretive Information: <60 mL/min/1.73 sq m | SERVICES, CORE | | Chronic Kidney Disease <15 mL/min/1.73 sq m | | | Kidney Failure Estimated GFR greater that 60 mL/min/1.73 sq m is of | | | limited clinical value. The MDRD equation is not valid in the | | | following situations: - Patients under 18 years of age - Severe | | | malnutrition or obesity - Vegetarian diet - Rapidly changing kidney | | | function | | + + + + + + + + | Performing | Address | City/State/Zipcode | Phone Number | | Organization | | | | + + + + + | [facility] | [address] | [place] [address] | | | SERVICES, CORE | [address] | | | + + + + + documented in this encounter Visit Diagnoses + + | Diagnosis | + + | Multiple sclerosis (HCC) - Primary Multiple sclerosis | + + | Chronic low back pain without sciatica, unspecified back pain laterality | + + | Neurogenic bladder Neurogenic bladder, NOS | + + documented in this encounter"
--- OUTSIDE RECORDS SUMMARY | ~2019-08-23 | XMS | Encounter Summary ---
Demographics + + + | Address | [address] | | | [place] [address] | + + + | Home Phone | | + + + | Preferred Language | Unknown | + + + | Marital Status | Single | + + + | Taoism Affiliation | MANDAEN | + + + [...] Team Providers + +------+ + | Care Grain Cleaner Name | Role | Phone | + +------+ + PCP | Unavailable | + +------+ + Encounter Details +--------+ + + + + | Date | Type | Department | Care Team | Description | +--------+ + + + + | 12/18/ | Results | Digestive Health | Jacquelyn Murguia, | | | 2002 | Only | [address] | [facility] | | | | | [address] | | | | | | Mailcode: [id number] | | | | | | [facility] | | | | | | [place], [place] | | | | | | [address] | | | | | | [phone] | | | +--------+ + + + [...] | | | | | | [place] [address] | | +--------+ + + + + documented as of this encounter Procedures + +--------+ + + + | Procedure Name | Priori | Date/Time | Associated Diagnosis | Comments | | | ty | | | | + +--------+ + + + | X-RAY ESOPHAGRAM | Routin | 12/18/2002 | | Results for this | | | e | 3:47 PM | | procedure are in the | | | | PDT | | results section. | + +--------+ + + + documented in this encounter Results ESOPHAGRAM (12/18/2002 3:47 PM PDT) + + + + + + | Component | Value | Ref Range | Performed | Pathologist | | | | | At | Signature | + + + + + + | ESOPHAGUS | Radiologist 1: GURVINDER, | | | | | | LUCIO Hughes JR., | | | | | | M.D.ESOPHAGRAM: | | | | | | 12/18/2002 | | | | | | Dictated: 12/18/2002 | | | | | | CLINICAL HISTORY: | | | | | | Status-post gastric | | | | | | stapling surgery and | | | | | | bypass,please evaluate | | | | | | for stricture. FINDINGS: | | | | | | The patient swallowed | | | | | | barium without | | | | | | difficulty. | | | | | | Goodswallowing | | | | | | mechanism, good | | | | | | esophageal transit is | | | | | | seen, and nosuggestion | | | | | | of obstruction is noted. | | | | | | At the gastroesophageal | | | | | | junction material | | | | | | passed through readily | | | | | | intoa small pouch. It | | | | | | also flowed readily into | | | | | | a proximal small | | | | | | bowelwithout marked | | | | | | obstruction. IMPRESSION: | | | | | | Esophagram failing to | | | | | | show suggestion of | | | | | | obstruction or mass. | | | | | | Nohiatal hernia was | | | | | | elicited. END OF | | | | | | IMPRESSION: | | | | + + + + + + + + | Specimen | + + | | + + + +---------+ + + | Performing | Address | City/State/Zipcode | Phone Number | | Organization | | | | + +---------+ + + | [facility] DEPARTMENT | | | | | RADIOLOGY | | | | + +---------+ + + documented in this encounter Visit Diagnoses Not on filedocumented in this encounter"
--- OUTSIDE RECORDS SUMMARY | ~2019-08-23 | XMS | Encounter Summary ---
Demographics + + + | Address | [address] | | | [place] [address] | + + + | Home Phone | | + + + | Preferred Language | Unknown | + + + | Marital Status | | + + + | Anabaptism Affiliation | Unknown | + + + | Race | Unknown | + + + | Ethnic Group | Unknown | + + + Author + + + | Author | [facility] | | | and Jadenana | + + + | Organization | [facility] | | | and [...] | | | | | [place] [address] | | + + + + + Care Team Providers + +------+ + | Care Community Organization Worker Name | Role | Phone | + +------+ + | Lexie Cagle | PCP | | | LINE COOK | | | + +------+ + Reason for Visit + + + | Reason | Comments | + + + | Referral | | + + + Encounter Details +--------+ + + + + | Date | Type | Department | Care Team | Description | +--------+ + + + + | 10/05/ | Telephone | [facility] | Trevin Xiao | Referral | | 2019 | | ORTHOPEDIC SURGERY | MD [address] | | | | | [address] | [facility] | | | | | [place], [place] | [place] [address] | | | | | [address] | [phone] | | | | | [phone] | | | +--------+ + + + [...] 2020 | Visit | | [address] | | | | | | [place] | | | | | | [address] | | | | | | | | +--------+---------+ + + + documented as of this encounter Visit Diagnoses Not on filedocumented in this encounter"
--- OUTSIDE RECORDS SUMMARY | ~2019-08-23 | XMS | Encounter Summary ---
Demographics + + + | Address | [address] | | | [place] [address] | + + + | Home Phone | | + + + | Preferred Language | Unknown | + + + | Marital Status | Single | + + + | Pentecostal Affiliation | ORTHODOXY | + + + | Race | White | + + + | Ethnic Group | Not or | + + + Author + + + | Author | [facility] | + + + | Organization | [facility] | + + + | Address | Unknown | + + + | Phone | Unavailable | + + + Support + + +---------+ + | Name | Relationship | Address | Phone | + + +---------+ + | Theodore Marquez | ECON | Unknown | | + + +---------+ + Care Team Providers + +------+ + | Care Plate Painter Name | Role | Phone | + [...] | | painful at | | [facility] [address] | | | | | port site | | [address] | | | | | lap band | | Mailcode: | | | | | after RYGB | | [facility] | | | | | [address] | | Health and | | | | | | | Healing, | | | | | | | [address] | | | | | | | [place], [place] | | | | | | | [address] | | | | | | | Phone: | | | | | | | [phone] | | | | | | | Fax: | | | | | | | [phone] | +--------+--------+ + + + + Encounter Details +--------+---------+ + + + | Date | Type | Department | Care Team | Description | +--------+---------+ + + + | 01/15/ | Office | Dig[facility]ive Health | Emilie Otero, | Morbid obesity (HCC) | | 2015 | Visit | Center at [facility] [address] | MD | (Primary Dx) | | | | [address] | | | | | | Mailcode: Center | | | | | | for Health and | | | | | | Healing, [address] | | | | | | [place], [place] | | | | | | [address] | | | | | | [phone] | | | +--------+---------+ + + + [...] + + + | Blood Pressure | 154/103 | 01/15/2015 10:10 AM | | | | | PDT | | + + + + + | Pulse | 65 | 01/15/2015 10:10 AM | | | | | PDT | | + + + + + | Temperature | 37.1 C (98.8 F) | 01/15/2015 10:10 AM | | | | | PDT | | + + + + + | Respiratory Rate | 14 | 01/15/2015 10:10 AM | | | | | PDT | | + + + + + | Oxygen Saturation | 100% | 01/15/2015 10:10 AM | | | | | PDT | | + + + + + | Inhaled Oxygen | - | - | | | Concentration | | | | + + + + + | Weight | 90.7 kg (200 lb) | 01/15/2015 10:10 AM | | | | | PDT | | + + + + + | Height | 177.8 cm (5' 10") | 01/15/2015 10:10 AM | | | | | PDT | | + + + + + | Body Mass Index | 28.7 | 01/15/2015 10:10 AM | | | | | PDT | | + + + + + documented in this encounter Progress Notes Emilie Otero MD - 01/15/2015 10:56 AM PDTI saw and evaluated the patient and agree with the findings and plan as documented in the resident s note. I spent 20 minutes with the patient of which >50% of this time was in counseling and coordination of care. We discussed his strong appetite and poor food choices. He is requesting an adjustment of his band which has not happened since it was placed on top of his bypass 3 years ago. He did not ave time for this today and will return next week. EMILIE OTERO MD CHIEF, BARIATRIC SERVICES [facility] 6TH FLOOR [address] Mailcode: [facility] [place] [address] Ailyn Senior MD - 01/15/2015 10:31 AM PDTBariatric Surgery Clinical Progress Note Author: Ailyn Andrade MD Attending Surgeon: Emilie Otero MD Date: 01/15/2015 IDENTIFICATION: Mian Marquez is a 64 y.o. Male with PMH 01/30/[address] Segura this was followed by 10 years of non-compliance and spotty follow-up; however on 10/24/11 he unde rwent lap band over bypass placement with Dr. Beauchamp. Since that time he has maintaine his w eight in the 170-200 lb range and has been doing well. He was most recently seen for follow up in this office on 11/14/2014 with complaints of GERD SUBJECTIVE: GERD is greatly improved. Followed up with his neurologist who referred him to speech patho logy. Overall eating is going well in terms of getting things down. He reports a history dep ression and is working with a new psychiatrist. He endorses that he does emotionally eat "bi nging on cake" but knows what he SHOULD be eating and is working with psychiatrist on stabil izing his mood to help with this. His ideal weight is 170-200. He is very motivated to have lap band tightened as he has noticed an increase in capacity for food. It has not been adjus leydi since it was placed 3 years ago. Also recently met with plastic surgery about skin reduction surgery. REVIEW OF SYSTEMS: A full 10 point review of systems was completed and is negative, except for the pertinent p ositives and negatives as noted above in the history of present illness. MEDICATIONS: Current outpatient prescriptions: ARIPiprazole 5 mg oral tablet, Take 1 tablet by mouth onc e daily., Disp: 30 tablet, Rfl: 1 Armodafinil (NUVIGIL) 150 mg oral tablet, Take 175 mg by mouth once daily as needed., Disp: , Rfl: Calcium Citrate-Vitamin D3 (CITRACAL + D PETITES) 200 mg calcium -250 unit oral tablet, Isacc e 2 tablets by mouth three times daily., Disp: 180 tablet, Rfl: 2 cholecalciferol, Vitamin D3, (VITAMIN D3) 2,000 unit oral capsule, Take 1 capsule by mouth once daily., Disp: 30 capsule, Rfl: 2 cyanocobalamin 1,000 mcg/mL injection solution, Inject into the muscle (IM)., Disp: , Rfl: DULoxetine 30 mg oral capsule,delayed release(DR/EC), Take by mouth., Disp: , Rfl: ECONAZOLE 1 % topical cream, , Disp: , Rfl: gabapentin 400 mg oral capsule, Take 2 capsules by mouth two times daily., Disp: 120 capsul e, Rfl: 1 glatiramer (COPAXONE) 40 mg/mL subcutaneous syringe, Inject 40 mg under the skin (SUBC) thr ee times weekly (on Monday, Monday and Monday)., Disp: , Rfl: iron sucrose 100 mg iron/5 mL intravenous solution, Every other month, Disp: , Rfl: methylphenidate 5 mg oral tablet, Take by mouth., Disp: , Rfl: NaCl 0.9 % solp 500 mL with iron dextran 100 mg/2 mL (50 mg/mL) soln, Inject into the vein (IV) once. Every 2 months, Disp: , Rfl: ONABOTULINUMTOXINA (BOTOX INJ), by injection route as needed (neurogenic bladder)., Disp: , Rfl: OXYBUTYNIN 5 mg oral tablet, Take 5 mg by mouth three times daily., Disp: , Rfl: rOPINIRole 2 mg oral tablet, Take 2 mg by mouth once daily in the evening., Disp: , Rfl: traZODone 50 mg oral tablet, Take 1-2 tablets by mouth once daily at bedtime as needed., Di sp: 60 tablet, Rfl: 1 venlafaxine XR 150 mg oral capsule,extended release 24hr, Take 1 capsule by mouth once lois y., Disp: 30 capsule, Rfl: 2 OBJECTIVE: Vital Signs: Ht 1.778 m (5' 10"), Wt 90.719 kg (200 lb), BP 154/103, Pulse 65, Temperature 37.1 C (98. 8 F), Temperature source Oral, RR 14, SpO2 100%, BMI 28.7 kg/(m^2). Physical Exam: General:A&Ox3, NAD, HEENT: MMM Chest: Nl WOB on RA Abdomen: Soft, non-tender, non-distended. Incisions c/d/i Skin: WWP ASSESSMENT and PLAN: Mian Marquez is a 64 y.o. man with history of 01/30/[address] Segura this was follo wed by 10 years of non-compliance and spotty follow-up; however on 10/24/11 he underwent lap band over bypass placement with Dr. Beauchamp. Since that time he has maintained his weight in the 170-200 lb range and has been doing well. He was most recently seen for follow up in thi s office on 11/14/2014 with complaints of GERD, now resolved As patient has increased capacity for food, no prior adjustments of lap band and GERD is resolved it is reasonable to schedule adjustment- 1 week with FERMENTER WINE Discussed risk of increased dysphagia, patient understands and wishes to proceed OK for skin reduction surgery, however would strongly advocate against any procedure that w ould require alteration of lap band. Continue working with psychiatrist on emotional eating/depression RTC 1 week with FERMENTER WINE; 6 months with This patient was seen and discussed with Dr.Mattar who agrees with the above plan. Ailyn Andrade MD General Surgery Pager# [phone] 10:32 AM 01/15/2015 documented in this en counter Plan of Treatment +--------+ + + + + | Date | Type | Specialty | Care Team | Description | +--------+ + + + + | 10/31/ | Appointment | Hematology & | Onc, Gen [address] | | | 2020 | | Oncology | [place], | | | | | | [place] [address] | | +--------+ + + + + documented as of this encounter Visit Diagnoses + + | Diagnosis | + + | Morbid obesity (HCC) - Primary Morbid obesity | + + documented in this encounter
--- OUTSIDE RECORDS SUMMARY | ~2019-08-23 | XMS | Encounter Summary ---
Demographics + + + | Address | [address] | | | [place] [address] | + + + | Home Phone | | + + + | Preferred Language | Unknown | + + + | Marital Status | | + + + | Confucianist Affiliation | Unknown | + + + | Race | Unknown | + + + | Ethnic Group | Unknown | + + + Author + + + | Author | [facility] | | | and Jadenana | + + + | Organization | [facility] | | | and Jadenana [...] | | | | | [place] [address] | | + + + + + Care Team Providers + +------+ + | Care Loaf Counter Name | Role | Phone | + +------+ + | Lexie Cagle | PCP | | | MERCURY CRACKING TESTER | | | + +------+ + Reason for Visit +---------+ + | Reason | Comments | +---------+ + | Results | | +---------+ + Encounter Details +--------+ + + + + | Date | Type | Department | Care Team | Description | +--------+ + + + + | 02/06/ | Telephone | [facility] | Lexie Cagle | Results | | 2019 | | MEDICINE [address] | | | | | [address] | [facility] | | | | | [place] [address] | [place] [address] | | | | | [phone] | [phone] | | | | | | | [...] 2020 | Visit | | [address] | | | | | | [place] | | | | | | [id number] | | | | | | | | +--------+---------+ + + + documented as of this encounter Visit Diagnoses Not on filedocumented in this encounter"
--- OUTSIDE RECORDS SUMMARY | ~2019-08-23 | XMS | Encounter Summary ---
Demographics + + + | Address | [address] | | | [place] [address] | + + + | Home Phone | | + + + | Preferred Language | Unknown | + + + | Marital Status | Single | + + + | Zoroastrianism Affiliation | RASTAFARIAN | + + + | Race | [...] Team Providers + +------+ + | Care Attorney General Name | Role | Phone | + [...] | | | | | | Mailcode: [place] | | | | | | [facility] and | | | | | | Healing, [address] | | | | | | [place], [place] | | | | | | [address] | | | | | | [phone] | | | +--------+ + + + [...] | | | | | | [place] [address] | | +--------+ + + + + documented as of this encounter Visit Diagnoses Not on filedocumented in this encounter"
--- OUTSIDE RECORDS SUMMARY | ~2019-08-23 | XMS | Encounter Summary ---
Demographics + + + | Address | [address] | | | [place] [address] | + + + | Home Phone | | + + + | Preferred Language | Unknown | + + + | Marital Status | | + + + | Rastafari Affiliation | Unknown | + + + | Race | Unknown | + + + | Ethnic Group | Unknown | + + + Author + + + | Author | [facility] | | | and Jadenana | + + + | Organization | [facility] | | | and [...] | | | | | [place] [address] | | + + + + + Care Team Providers + +------+ + | Care Overseamer Name | Role | Phone | + +------+ + | Lexie Cagle | PCP | | | VACUUM PAN TENDER | | | + +------+ + Reason [...] | | Services | Therapy | | [facility] | | | Required | | Osteoarthrit | Phill, | PHYSICAL | | | | | is of both | [address] | THERAPY [address] | | | | | knees, | [address] | [place]Y | | | | | unspecified | [place], | [place], [place] | | | | | osteoarthrit | [place] | [address] | | | | | is type | [address] | Phone: | | | | | | Phone: | [phone] | | | | | | [phone] | Fax: | | | | | | Fax: | [phone] | | | | | | [phone] | | +--------+ + + + + + Encounter Details +--------+ + + + + | Date | Type | Department | Care Team | Description | +--------+ + + + + | 10/08/ | Orders Only | [facility] | Trevin Xiao | Osteoarthritis of | | 2018 | | ORTHOPEDIC SURGERY | MD [address] | both knees, | | | | [address] | [address] | unspecified | | | | [place], [place] | [place] [address] | osteoarthritis type | | | | [address] | [phone] | (Primary Dx) | | | | [phone] | | | +--------+ + + + [...] [place] | | | | | | [address] | | | | | | | | +--------+---------+ + + + + + +--------+ + + | Name | Type | Priori | Associated Diagnoses | Order Schedule | | | | ty | | | + + +--------+ + + | [facility] | Outpatient | Routin | Osteoarthritis of | Ordered: 10/08/2018 | | Hospital Physical | Referral | e | both knees, | | | Therapy, External - | | | unspecified | | | AMB Referral | | | osteoarthritis type | | + + +--------+ + + documented as of this encounter Visit Diagnoses + + | Diagnosis | + + | Osteoarthritis of both knees, unspecified osteoarthritis type - Primary | + + documented in this encounter"
--- OUTSIDE RECORDS SUMMARY | ~2019-08-23 | XMS | Encounter Summary ---
Demographics + + + | Address | [address] | | | [place] [address] | + + + | Home Phone | | + + + | Preferred Language | Unknown | + + + | Marital Status | Single | + + + | Buddhist Affiliation | QUAKER | + + + | Race | White | + + + | Ethnic Group | Not or | + + + Author + + + | Author | [facility] | + + + | Organization | [facility] | + + + | Address | Unknown | + + + | Phone | Unavailable | + + + Support + + +---------+ + | Name | Relationship | Address | Phone | + + +---------+ + | Theodore Marquez | ECON | Unknown | | + + +---------+ + Care Team Providers + +------+ + | Care Tool Chaser Name | Role | Phone | + +------+ + | Jose Hameed MD | PCP | | + +------+ + Reason for Visit + + + | Reason | Comments | + + + | New Patient Visit | | + + + Consultation (Routine) +--------+--------+ + + + + | Status | Reason | Specialty | Diagnoses / | Referred By | Referred To | | | | | Procedures | Contact | Contact | +--------+--------+ + + + + | Closed | | Urology | Diagnoses | [place], | [place] | | | | | Neurogenic | Francisco J Carvalho MD | MD Shukri | | | | | bladder | [address] | | | | | [address] | [address] | | | | | | [place], | [place], [place] | | | | | | [place] [address] | [address] | | | | | | Phone: | Phone: | | | | | | [phone] | [phone] | | | | | | Fax: | Fax: | | | | | | [phone] | [phone] | +--------+--------+ + + + + Encounter Details +--------+---------+ + + + | Date | Type | Department | Care Team | Description | +--------+---------+ + + + | 11/23/ | Office | Urology at [facility] | Shukri Olivier MD | Neurogenic bladder | | 2017 | Visit | [address] | [address] | (Primary Dx) | | | | Mailcode: [facility] | [place], [place] | | | | | [place] [facility] | [address] | | | | | and Healing, | [phone] | | | | | | | | | | | Floor [place], [place] | | | | | | [address] | | | | | | [phone] | | | +--------+---------+ + + + [...] + + + | Blood Pressure | 137/81 | 11/23/2016 8:03 AM | | | | | PDT | | + + + + + | Pulse | 56 | 11/23/2016 8:03 AM | | | | | PDT [...] + | Weight | 91.2 kg (201 lb) | 11/23/2016 8:03 AM | | | | | PDT | | + + + + + | Height | - | - | | + + + + + | Body Mass Index | 28.84 | 10/31/2016 3:28 PM | | | | | PDT | | + + + + + documented in this encounter Progress Notes Monisha Lane MA - 11/23/2016 8:00 AM PDT Review of Systems Constitutional: Positive for malaise/fatigue. HENT: Positive for tinnitus. Eyes: Positive for blurred vision. Psychiatric/Behavioral: Positive for depression. The patient is nervous/anxious. All other systems reviewed and are negative. Physical Exam Shukri Lainez MD - 8:00 AM PDT 11/23/2016 Referring Physician: Francisco J Nix MD [facility] [address] [place] [address] History: CHIEF COMPLAINT: "leaking after urinating" HPI: 66yo with multiple sclerosis and resultant neurogenic bladder managed with clean intermitte nt self-catheterization for over 5 years who is being followed by Dr. Nix. He underwent u rodynamics showing large capacity (700cc), no neurogenic detrusor overactivity, and no urody namic stress urinary incontinence. He was diagnosed with intrinsic sphincter deficiency and tried on pseudoephedrine but has not noticed any difference. Botox continues to be very effe ctive for his urgency and frequency, last injection was 2 months ago, typically lasts 4-5 mo nths for him, but makes no difference in the urinary incontinence for which he presents toda y. He complains of insensible urinary incontinence occurring 30-60 minutes after catheterizi ng typically which requires 2-3 pull-ups per day and is quite bothersome. No sensation of ur gency with it, not worse with physical exertion or cough. He drinks 40oz of coffee during e day but does not notice it is worse with this. No change in this with the Botox at all. Previously tried therapies: oxybutynin, tolterodine, trospium, Botox (300 units); he also u nderwent an InterStim in [place] in the past but fell on it and broke it which has also caused a lot of back problems. He catheterizes 4-5 times daily with a 14Fr straight-tip catheter, single-use. He also has recurrent UTI. Allergies: Allergies Allergen Reactions Latex Rash Adhesive Tape Pruritus Medications: Current Outpatient Prescriptions: Cholecalciferol, Vitamin D3, (VITAMIN D3) 5,000 unit oral tablet, Take 5,000 Units by mouth once daily., Disp: , Rfl: cyanocobalamin 1,000 mcg/mL injection solution, Inject into the muscle (IM)., Disp: , Rfl: gabapentin 300 mg oral capsule, Take 1 capsule by mouth three times daily. Indications: ANUPAM ROPATHIC PAIN, Disp: 90 capsule, Rfl: 1 iron sucrose 100 mg iron/5 mL intravenous solution, Every other month, Disp: , Rfl: modafinil 200 mg oral tablet, Take 1 tablet by mouth two times daily., Disp: 60 tablet, Rfl : 5 NaCl 0.9 % solp 500 mL with iron dextran 100 mg/2 mL (50 mg/mL) soln, Inject into the vein (IV) once. Every 2 months, Disp: , Rfl: ONABOTULINUMTOXINA (BOTOX INJ), by injection route as needed (neurogenic bladder)., Disp: , Rfl: oxyCODONE, immediate release, 5 mg oral tablet, Take 5 mg by mouth every six hours as neede d., Disp: , Rfl: rOPINIRole 2 mg oral tablet, Take 2 mg by mouth once daily in the evening., Disp: , Rfl: traZODone 100 mg oral tablet, Take 1 tablet by mouth once daily at bedtime., Disp: 90 table t, Rfl: 0 venlafaxine 75 mg oral tablet, Take 1 tablet by mouth once daily. Indications: major depres sive disorder, Disp: 31 tablet, Rfl: 2 Past Medical History: No date: Back pain Comment: s/p surgery No date: Depressive disorder, not elsewhere classified No date: GERD (gastroesophageal reflux disease) Comment: severe 07/2014 No date: Low ferritin Comment: iron infusions in past No date: MS (multiple sclerosis) ([facility]) Comment: gait/ cognition issues No date: Obesity No date: CHRISTEN on CPAP No date: Other and unspecified symptoms and signs invol* No date: Restless legs No date: Urinary retention Comment: self caths Past Surgical History: No date: BACK SURGERY Comment: lumbar No date: CHOLECYSTECTOMY 2011: LAP-BAND INSERTION Comment: standard/ in [place] 2006: MAIRA-EN-Y GASTRIC BYPASS Comment: [facility]/ [place] Family History: Family History Problem Relation Glasses Mother Glasses Father Glasses Brother Social History: Tobacco: lifetime non-smoker Review of Systems: I have reviewed the review of systems as documented by the medical research tech. Physical Exam: BP 137/81 | Pulse 56 | Wt 91.2 kg (201 lb) | BMI 28.84 kg/(m^2) General: NAD Neuro: Gait: walks with cane HEENT: normocephalic Respiratory: normal effort, no retractions or purse-lip breathing. Cardiovascular: No extremity swelling varices, edema, pallor, or erythema. Skin: no rashes; good turgor Abdomen: soft Extremities: no deformities, clubbing, edema I bladder scanned him for 300mL currently in bladder Pelvic Exam (Male): Penis: circumcised Meatus: patent Standing up, vigorous cough, valsalva, no leakage demonstrated IMPRESSION: Mian Marquez is a 66 y.o. year-old with: Insensible urinary incontinence Neurogenic bladder Discussed difficult situation with patient - has urgency and frequency well-controlled with Botox, but has insensible urinary incontinence between catheterizations not reproducible on urodynamics. My suspicion is less likely that this is any stress urinary incontinence or in trinsic sphincter deficiency given no reproducible stress urinary incontinence and, addition ally, not reproduced today with 300mL in his bladder. Moreover, he has had a sufficient tria l of nearly all neurogenic bladder therapies (medications, Botox, Interstim...) PLAN: I discussed doing a 3 day fluid and bladder diary with him to assess the timing and severit y of his urinary incontinence with regards to the timing of his catheterizations and volumes . He will mail or fax me back the diary and I would like to review it and call him back for a discussion. documented in this enc ounter Plan of Treatment +--------+ + + + + | Date | Type | Specialty | Care Team | Description | +--------+ + + + + | 10/31/ | Appointment | Hematology & | Onc, Gen [address] | | | 2020 | | Oncology | [place], | | | | | | [place] [address] | | +--------+ + + + + documented as of this encounter Visit Diagnoses + + | Diagnosis | + + | Neurogenic bladder - Primary Neurogenic bladder, NOS | + + documented in this encounter
--- OUTSIDE RECORDS SUMMARY | ~2019-08-23 | XMS | Encounter Summary ---
Demographics + + + | Address | [address] | | | [place] [address] | + + + | Home Phone | | + + + | Preferred Language | Unknown | + + + | Marital Status | | + + + | Jain Affiliation | Unknown | + + + | Race | Unknown | + + + | Ethnic Group | Unknown | + + + Author + + + | Author | [facility] | | | and [place]aden[place] | + + + | Organization | [facility] | | | and [place]aden[place] [...] | | | | | [place] [address] | | + + + + + Care Team Providers + +------+ + | Care Consulting Property Manager Name | Role | Phone | + +------+ + | Lexie Cagle | PCP | | | ADJUNCT INSTRUCTOR | | | + +------+ + Encounter Details +--------+ + + + + | Date | Type | Department | Care Team | Description | +--------+ + + + + | 07/04/ | Hospital | [facility] | Trevin Xiao | Pain in both knees, | | 2019 | Encounter | [facility] | MD [address] | unspecified | | | | [address] [place] | [address] [place] | chronicity | | | | PRECIOUS [place] | [place] [address] | | | | | [address] | [phone] | | | | | [phone] | | | +--------+ + + + [...] mg by mouth | | 0 | 06/22/19 | | | (CYMBALTA) [address] | Daily. | | | [...] [place] | | | | | | [id number] | | | | | | | | +--------+---------+ + + + + +---------+--------+ + + | Name | Type | Priori | Associated Diagnoses | Order Schedule | | | | ty | | | + +---------+--------+ + + | XR Knee Right 1 - 2 | Imaging | Routin | Pain in both | 1 Occurrences | | Vw | | e | knees, unspecified | starting 07/04/2018 | | | | | chronicity | until 07/04/2018 | + +---------+--------+ + + documented as of this encounter Procedures + +--------+ + + + | Procedure Name | Priori | Date/Time | Associated Diagnosis | Comments | | | ty | | | | + +--------+ + + + | XR KNEE LEFT 1 - 2 | Routin | 07/04/2018 | Pain in both | Results for this | | VW | e | 9:10 AM | knees, unspecified | procedure are in the | | | | PDT | chronicity | results section. | + +--------+ + + + documented in this encounter Results XR Knee Left 1 [...] + | Diagnosis | + + | Pain in both knees, unspecified chronicity | + + documented in this encounter"
--- OUTSIDE RECORDS SUMMARY | ~2019-08-23 | XMS | Encounter Summary ---
Demographics + + + | Address | [address] | | | [place] [address] | + + + | Home Phone [...] | [facility] | | | and Jadenana | + + + | Organization | [facility] | | [...] | | | | | [place] [address] | | + + + + + Care Team Providers + +------+ + | Care Optometric Technician Name | Role | Phone | + +------+ + | Lexie Cagle | PCP | | | RESIDENCE SUPERVISOR | | | + +------+ + Encounter Details +--------+ + + + + | Date | Type | Department | Care Team | Description | +--------+ + + + + | 10/29/ | Anti-coag | [facility] | CagleLexie hankins | | | 2019 | Telephone | MEDICINE [address] | [address] | | | | | [address] [place] | [address] [place] | | | | | [place] [address] | [place] [address] | | | | | [phone] | [phone] | | | | | | | [...] of this encounter Progress Notes Kerline Irizarry Environmental Remediation Specialist - 10/29/2018 7:50 AM PDTCalled pt to notify. Left message regarding results. Lexie Kathleen APRN - 10/29/2018 7:50 AM PDTINR on 10/26 was 2.0. Pt to stay on same dose of warfarin (7.5 mg on Fridays, 5 mg the rest of the days of the week) and recheck INR in 3 weeks 19 2:53 PM PDTdocumented in this encounter Plan of Treatment +--------+---------+ + + + | Date | Type | Specialty | Care Team | Description | +--------+---------+ + + + | Office | Sleep Medicine | Laith Sheffield PA | | | 2019 | Visit | | [address] | | | | | | [place] | | | | | | [address] | | | | | | | | +--------+---------+ + + + documented as of this encounter Procedures + +--------+ + + + | Procedure Name | Priori | Date/Time | Associated Diagnosis | Comments | | | ty | | | | + +--------+ + + + | EXTERNAL LAB: | Routin | 10/26/2018 | | Results for this | | [facility] INR | e | | | procedure are in the | | | | | | results section. | + +--------+ + + + documented in this encounter Results External Lab: [facility] INR (10/26/2018) + +-------+ + + + | Component | Value | Ref Range | Performed | Pathologist | | | | | At | Signature | + +-------+ + + + | INR, | 2.0 | | | | | External | | | | | + +-------+ + + + + + | Specimen | + + | Blood | + + documented in this encounter Visit Diagnoses Not on filedocumented in this encounter"
--- OUTSIDE RECORDS SUMMARY | ~2019-08-23 | XMS | Encounter Summary ---
Demographics + + + | Address | [address] | | | [place] [address] | + + + | Home Phone | | + + + | Preferred Language | Unknown | + + + | Marital Status | Single | + + + | Anglican Affiliation | YARSANISM | + + + | Race | White | + + + | Ethnic Group | Not or | + + + Author + + + | Author | [facility] | + + + | Organization | [facility] | + + + | Address | Unknown | + + + | Phone | Unavailable | + + + Support + + +---------+ + | Name | Relationship | Address | Phone | + + +---------+ + | Theodore Marquez | ECON | Unknown | | + + +---------+ + Care Team Providers + +------+ + | Care Intermediate Project Manager Name | Role | Phone [...] + + + | Closed | | | Diagnoses | Laura | | | | | | Multiple | Praful Alberts DO | | | | | | sclerosis | [address] | | | | | | ([facility]) | [address] | | | | | | Procedures | [place], [place] | | | | | | CONSULT TO | [address] | | | | | | NEUROPSYCHOL | | | | | | | OGIST | | | | | | | (PSYCHIATRY) | | | +--------+--------+ + + + [...] Closed | | Neurology | Diagnoses | Non-[facility] | Mirian Ms | | | | | Multiple | Epic Dept | Center [facility] | | | | | sclerosis | | [address] | | [...] | | | | | | | [place], [place] | | | | | | | [address] | | | | | | | Phone: | | | | | | | [phone] | | | | | | | Fax: | | | | | | | [phone] | +--------+--------+ + + + + Encounter Details +--------+---------+ + + + | Date | Type | Department | Care Team | Description | +--------+---------+ + + + | 03/14/ | Office | Neurology at | Praful Sanchez, | Multiple sclerosis | | 2016 | Visit | [facility] & | DO | ([facility]) (Primary Dx); | | | | Healing [address] | | Vitamin B12 | | | | Ave Mailcode: CH8C | | deficiency; | | | | [facility] | | Neurogenic bladder; | | | | and Healing, | | Vitamin D deficiency | | | | Building | | | | | | Floor [place], [place] | | | | | | [address] | | | | | | [phone] | | | +--------+---------+ + + + [...] + + + | Blood Pressure | 142/91 | 03/14/2016 8:47 AM | | | | | PST | | + + + + + | Pulse | 91 | 03/14/2016 8:47 AM | | | | | PST [...] | Weight | 92.9 kg (204 lb 14.4 | 03/14/2016 8:47 AM | | | | oz) | PST | | + + + + + | Height | - | - | | + + + + + | Body Mass Index | 29.4 | 09/25/2015 9:58 AM | | | | | PDT | | + + + + + documented in this encounter Patient Instructions Patient Instructions Praful Sanchez DO - 03/14/2016 9:00 AM Jazielck to see if you have any vitamin D at home. If you still have the 50,000 (FIFTY thousand) tablets, take ONE table t a WEEK. If you do not have any left, buy Vitamin D 5,000 (FIVE thousand), and take ONE a DAYElectro nically signed by Praful Sanchez DO at 03/14/2016 9:35 AM PST documented in this encounter Progress Notes Christian Maldonado MD - 03/14/2016 9:00 AM PSTI personally interviewed the patient, duplicated the pertinent parts of the physical examination and personally formulated the plan with Dr. Sanchez. I have reviewed, entered my findings, and agree with the above documentation. Christian Maldonado M.D. [facility] itPraful Abebe - 03/14/2016 9:00 AM PSTFormatting of this note might be different from the orig inal. MULTIPLE SCLEROSIS CLINIC 03/14/16 Chief Complaint Patient presents with Return Patient Medical Problems 1. Multiple sclerosis Avonex 2218-0085 (treatment for 2 years) Rebif for 2.5 [...] spinal stimulator, 2011, replaced last week with pa ddles and non- rechargeable battery ([employer]tron[employer] stimulator). 9. CHRISTEN INTERVAL HISTORY: Mr. Marquez RTC for follow up. He denies any new MS symptoms, but reports that his chronic fatigue, cognitive problems, and low mood are stably bothersome. He is cur rently being treated for a UTI with Augmentin based on a positive culture. He reports he has not been taking the 50,000 international unit tablets of vitamin D. Reports he only takes t he Adderall once or twice a month for fatigue, because if he takes it too much it loses effe ctiveness. He brought in the papers of his prior neuropsych testing done in [place] thr ee years ago; we will upload them to his chart. Two weeks ago [place] with his girlfriend, and he is still getting settled. His updated MRI brain from Octobe r of this year was stable compared to November 2013. Current Outpatient Prescriptions Medication Sig AMOXICILLIN/POTASSIUM CLAV (AUGMENTIN ORAL) Take by mouth. cholecalciferol, vitamin D3, 50,000 unit oral tablet [...] immediate release, 5 mg oral tablet Take by mouth. rOPINIRole 1 mg oral tablet 3 mg once daily in the evening. Indications: Restless Legs Syndrome rOPINIRole 2 mg oral tablet Take 2 mg by mouth once daily in the evening. traZODone 50 mg oral tablet Take 1-2 tablets by mouth once daily at bedtime as needed. venlafaxine 37.5 mg oral tablet Take 1 tablet by mouth once daily. Please take 37.5mg ( 2 pills) daily for 1 week then increase to 75mg (2 pills) daily. Indications: MAJOR DEPRESS DERRICK DISORDER No current facility-administered medications for this visit. [...] Adhesive tape Physical Examination: Vital Signs: BP 142/91 | Pulse 91 | Wt 92.9 kg (204 lb 14.4 oz) | BMI 29.4 kg/(m^2) General: He is no apparent physical [...] all 4 extremities. Cerebellar testing shows slowed gnvome-nv-kzjz. Ga it: Antalgic casual gait, very difficult to tandem walk as he had to reach out for support. Timed Walk (25'): 05.32 (03/14/16 0850) Impression: 1. Multiple sclerosis 2. Depression. 3. Hx Benito-en-Y with hx of B12 deficiency. 4. Vitamin D deficiency. 5. Complaints of worsening cognitive function. 6. Fatigue We encouraged Mr Marquez to take his vitamin D supplementation, either as 50,000 internation al units weekly if he still has any left, or to buy 5,000 international units and take one d aily. Also entered an external order for him to get an updated neuropsychological exam if it can be scheduled sooner than his current internal referral for which he is on the wait list . He will return to clinic in 3 months to discuss starting ocrelizumab if it is available at that time. Plan: 1. RTC in 3 months. 2. Continue current medications 3. Neuropsych testing. Case staffed with Dr Christian Maldonado who agrees with my assessment and plan and also saw the p atient. Praful Sanchez DO Multiple Sclerosis and Neuroimmunology Fellow [facility] [place] documented in this encounter Plan of Treatment +--------+ + + + + | Date | Type | Specialty | Care Team | Description | +--------+ + + + + | 10/31/ | Appointment | Hematology & | Onc, Gen [address] | | | 2020 | | Oncology | [place], | | | | | | [place] [address] | | +--------+ + + + + documented as of this encounter Visit Diagnoses + + | Diagnosis | + + | Multiple sclerosis (HCC) - Primary Multiple sclerosis | + + | Vitamin B12 deficiency Other B-complex deficiencies | + + | Neurogenic bladder Neurogenic bladder, NOS | + + | Vitamin D deficiency | + + documented in this encounter"
--- OUTSIDE RECORDS SUMMARY | ~2019-08-23 | XMS | Encounter Summary ---
Demographics + + + | Address | [address] 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 year old male from [place] : Patient presents with: Medical Eye Examination [...] scanned intake form or preadmission data in [facility] for full Family ocular and medical his [...] Pressure 14 12 Manifest Refraction Sphere Cylinder [place] Dist Right [place] +0.50 005 20/20 Left [place] +0.75 165 20/15 Dilation Both eyes: 2.5% [...] I have reviewed and edited history and environmental health technician documentation, and performed all other el ements to above examination documentation. I have reviewed and verified the above scribed note of my visit with this patient as record ed by the scribe indicated in the tech attestation above. Ethel Romo MD Shipping Supervisor Comprehensive Ophthalmology [facility] [place] Physician: Ethel Romo MD OCT [place], 09/13/2016 [...] | | | | | | [place] [address] | | +--------+ + + + + [...]
--- OUTSIDE RECORDS SUMMARY | ~2019-08-23 | XMS | Encounter Summary ---
Demographics + + + | Address | [address] | | | [place] [address] | + + + | Home Phone | | + + + | Preferred Language | Unknown | + + + | Marital Status | Single | + + + | Islam Affiliation | MUSLIM | + + + | Race | White | + + + | Ethnic Group | Not or | + + + Author + + + | Author | [facility] | + + + | Organization | [facility] | + + + | Address | Unknown | + + + | Phone | Unavailable | + + + Support + + +---------+ + | Name | Relationship | Address | Phone | + + +---------+ + | Theodore Marquez | ECON | Unknown | | + + +---------+ + Care Team Providers + +------+ + | Care Chief Of Field Operations Name | Role | Phone | + +------+ + | Trevin Delacruz MD | PCP | | + +------+ + Encounter Details +--------+ + + + + | Date | Type | Department | Care Team | Description | +--------+ + + + + | 08/28/ | Telephone | Digestive Health | Lilaina Conteh, | | | 2014 | | [place] [facility] [address] | [facility] [address] | | | | | [address] | [address] [facility] [place] | | | | | Mailcode: [place] | [address] | | | | | [facility] and | [phone] | | | | | [facility] [place] [address] | | | | | | [place], [place] | | | | | | [address] | | | | | | | [...] | | | | | | [place] [address] | | +--------+ + + + + documented as of this encounter Visit Diagnoses Not on filedocumented in this encounter"
--- OUTSIDE RECORDS SUMMARY | ~2019-08-23 | XMS | Encounter Summary ---
Demographics + + + | Address | [address] | | | [place] [address] | + + + | Home Phone | | + + + | Preferred Language | Unknown | + + + | Marital Status | Single | + + + | Muslim Affiliation | LATTER DAY | + + + | Race | [...] Team Providers + +------+ + | Care Anchorer Name | Role | Phone | + +------+ + | Rudolph Lee MD | PCP | | + +------+ + Encounter Details +--------+ + + + + | Date | Type | Department | Care Team | Description | +--------+ + + + + | 04/17/ | Office | | Report, Outpatient | Progress Note | | 2002 | Visit-Trans | | Consultation | | | | cribed | | [...] as of this encounter Progress Notes Interface, Ux Architect In - 09/27/2005 1:04 AM PDT [place] [facility] OUTPATIENT CONSULTATION REPORT [address], [place] [address] or PHONE CONSULTATION Referred From and Faxed To:Did not dictate. Referred To: Shelly Hamilton R.D., L.D. CONSULTING PROVIDER: Shelly Hamilton R.D., L.D. 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 He has lost 53 pounds since the surgery date in the six-week time period. Stated he is bored, he doesn't know what to eat. He is taking in about 80 gm of protein a day and thinks he is taking in 300-400 calories/day. Stated he has been eating foods like lentils, beans, canned fruit, cottage cheese, yogurt and a protein that his gets for him at [employer] The reason for the call today is yesterday on the 09 of April, he ate some vegetarian lasagna and he stated that he had a problem with the lasagna getting stuck in the pouch that was left post Rouen-Y surgery. He feels that he maybe ate too much of it at one time. OBJECTIVE: Once again, patient has had the Rouen-Y surgery February 20, 2002. I provided the following education. As I have mentioned before, I have encouraged Mr. Marquez to significantly decrease his portion sizes, to eat about one-half of a cup of food at a time and that amount of food should take him at least 20 minutes. He needs to slow down his food intake, take very small bites of food and chew his food extremely well. He continues to eat too much food too fast. He realizes it but he is having a very difficult time making this behavior change. I provided a list of some additional foods that he could have because he is bored. That list includes soup, hummus, yogurt, a protein powder, milk, cottage cheese. I recommend that a size of that four-ounce container, that he gets a cup container such as the Glad disposable containers, that he could measure as four ounces, and that should take him 20 minutes to eat that amount of food. I encouraged Mr. Marquez to re-read the information that I had sent to him and e-mail him, and that he needs to set a kitchen timer and practice this behavior change technique. It needs a lot of practice. Again, as I mentioned before, encouraged him not to eat when he is at work. He would be better off with softer foods when he is at work. The protein shake from [employer], some yogurt, some cottage cheese and again, really encouraged he must eat very, very slowly or he will get into the same trouble that he has had with the chicken breast in February and the lasagna at this time. PLAN: Patient needs to continue to practice behavior change, take small bites of food, chew food extremely thoroughly and slow down his eating pattern. Shelly Hamilton R.D., L.D. Registered Dietitian /yash A [phone] cc: Colin Posada M.D. [id number] signed by Interface, Ux Architect In at 09/27/2005 1:04 AM PDTd ocumented in this encounter Plan of Treatment +--------+ + + + + | Date | Type | Specialty | Care Team | Description | +--------+ + + + + | 10/31/ | Appointment | Hematology & | Onc, Gen [address] | | | 2020 | | Oncology | [place], | | | | | | [place] [address] | | +--------+ + + + + documented as of this encounter Visit Diagnoses Not on filedocumented in this encounter"
--- OUTSIDE RECORDS SUMMARY | ~2019-08-23 | XMS | Encounter Summary ---
Demographics + + + | Address | [address] | | | [place] [address] | + + + | Home Phone [...] + | Author | [facility] | | | and [place] | + + + | Organization | [facility] | | | and [place] [...] | | | | | [place] [address] | | + + + + + Care Team Providers + +------+ + | Care Base Manager Name | Role | Phone | + +------+ + | Lexie Cagle | PCP | | | OLERICULTURIST | | | + +------+ + Reason for Visit + + + | Reason | Comments | + + + | Surgery Appointment | | + + + Encounter Details +--------+ + + + + | Date | Type | Department | Care Team | Description | +--------+ + + + + | 04/30/ | Telephone | [facility] [place] [place] [facility] | Michael Fernandes | Surgery Appointment | | 2019 | | [address] | MD [address] | | | | | [place] | [place] | | | | | [address] | [address] | | | | | [phone] | | | +--------+ + + + [...] 2019 | Visit | | [address] | | | | | | [place]CIOUS [place] | | | | | | [address] | | | | | | | | +--------+---------+ + + + documented as of this encounter Visit Diagnoses Not on filedocumented in this encounter"
--- OUTSIDE RECORDS SUMMARY | ~2019-08-23 | XMS | Encounter Summary ---
Demographics + + + | Address | [address] | | | [place] [address] | + + + | Home Phone | | + + + | Preferred Language | Unknown | + + + | Marital Status | Single | + + + | Methodist Affiliation | EPISCOPAL | + + + [...] Team Providers + +------+ + | Care Services Delivery Driver Name | Role | Phone | + +------+ + | Jose Hameed MD | PCP | | + +------+ + Encounter Details +--------+--------+ + + + | Date | Type | Department | Care Team | Description | +--------+--------+ + + + | 11/23/ | Travel | | | | | [...] | | | | | | [place] [address] | | +--------+ + + + + documented as of this encounter Visit Diagnoses Not on filedocumented in this encounter"
--- OUTSIDE RECORDS SUMMARY | ~2019-08-23 | XMS | Encounter Summary ---
Demographics + + + | Address | [address] | | | [place] [address] | + + + | Home Phone | | + + + | Preferred Language | Unknown | + + + | Marital Status | Single | + + + | Baptism Affiliation | SPIRITISM | + + + [...] Team Providers + +------+ + | Care Strategic Marketing Leader Name | Role | Phone | + [...] | | | | | | [place] [address] | | +--------+ + + + + documented as of this encounter Visit Diagnoses Not on filedocumented in this encounter"
--- OUTSIDE RECORDS SUMMARY | ~2019-08-23 | XMS | Encounter Summary ---
Demographics + + + | Address | [address] | | | [place] [address] | + + + | Home Phone | | + + + | Preferred Language | Unknown | + + + | Marital Status | Single | + + + | Restoration Affiliation | MORMON | + + + | Race | White | + + + | Ethnic Group | Not or | + + + Author + + + | Author | [facility] | + + + | Organization | [facility] | + + + | Address | Unknown | + + + | Phone | Unavailable | + + + Support + + +---------+ + | Name | Relationship | Address | Phone | + + +---------+ + | Theodore Marquez | ECON | Unknown | | + + +---------+ + Care Team Providers + +------+ + | Care Motor Coach Tour Operator Name | Role | Phone | [...] + + | 05/03/ | Telephone | [facility] | [place], | Scheduling | | 2019 | | Clinics at S | MD Patrick [address] | | | | | [facility] | [place], | | | | | for Health and | [place] [address] | | | | | Healing [address] | [phone] | | | | | [place], [place] | | | | | | [address] | | | | | | [phone] | | | +--------+ + + + [...] | | | | | | [place] [address] | | +--------+ + + + + documented as of this encounter Visit Diagnoses Not on filedocumented in this encounter"
--- OUTSIDE RECORDS SUMMARY | ~2019-08-23 | XMS | Encounter Summary ---
Demographics + + + | Address | [address] | | | [place] [address] | + + + | Home Phone | | + + + | Preferred Language | Unknown | + + + | Marital Status | Single | + + + | Baptism Affiliation | RESTORATION | + + + [...] Team Providers + +------+ + | Care Salesperson Shoes Name | Role | Phone | + +------+ + | Jose Hameed MD | PCP | | + +------+ + Encounter Details +--------+--------+ + + + | Date | Type | Department | Care Team | Description | +--------+--------+ + + + | 01/23/ | Travel | | | | | [...] | | | | | | [place] [address] | | +--------+ + + + + documented as of this encounter Visit Diagnoses Not on filedocumented in this encounter"
--- OUTSIDE RECORDS SUMMARY | ~2019-08-23 | XMS | Encounter Summary ---
Demographics + + + | Address | [address] | | | [place] [address] | + + + | Home Phone | | + + + | Preferred Language | Unknown | + + + | Marital Status | | + + + | Pentecostal Affiliation | Unknown | + + + | Race | Unknown | + + + | Ethnic Group | Unknown | + + + Author + + + | Author | [facility] | | | and Jadenana | + + + | Organization | [facility] | | | and Jadenana [...] | | | | | [place] [address] | | + + + + + Care Team Providers + +------+ + | Care Chemical Machine Tender Name | Role | Phone | + +------+ + | Lexie Cagle | PCP | | | REPAIR SPECIALIST | | | + +------+ + Reason for Visit Service/Procedure (Routine) +--------+--------+ + + + + | Status | Reason | Specialty | Diagnoses / | Referred By | Referred To | | | | | Procedures | Contact | Contact | +--------+--------+ + + + + | Closed | | Urology | Diagnoses | Spendlove, | Spendlove, | | | | | Neurogenic | Michael | Michael Tidwell, | | | | | bladder | MD Yaw | [address] | | | | | Urge | [address] | [address] [place] | | | | | incontinence | [address] | [place] | | | | | Procedures | [place] | [address] Phone: | | | | | [place] | [address] | [phone] | | | | | CYSTOURETHRO | Phone: | Fax: | | | | | SCOPY INJ | [phone] | [phone] | | | | | CHEMODENERVA | Fax: | | | | | | TION BLADDER | [phone] | | | | | | [place] | | | | | | | INJECTION,ON | | | | | | | ABOTULINUMTO | | | | | | | MITRA, 1 | | | | | | | UNITS | | | +--------+--------+ + + + + Encounter Details +--------+---------+ + + + | Date | Type | Department | Care Team | Description | +--------+---------+ + + + | 10/11/ | Office | [facility] | Michael Fernandes | Neurogenic bladder | | 2019 | Visit | [address] | MD Yaw [address] | (Primary Dx); Urge | | | | [place], [place] | [address]VE [place] | incontinence; Pyuria | | | | [address] | [address] | | | | | [phone] | | | +--------+---------+ + + + [...] + + + | Blood Pressure | 136/88 | 10/11/2018 2:00 PM | | | | | PDT | | + + + + + | Pulse | 56 | 10/11/2018 2:00 PM | | | | | PDT | | + + + + + | Temperature | - | - | | + + + + + | Respiratory Rate | 16 | 10/11/2018 2:00 PM | | | | | PDT | | + + + + + | Oxygen Saturation | - | - | | + + + + + | Inhaled Oxygen | - | - | | | Concentration | | | | + + + + + | Weight | 92.1 kg (203 lb 0.7 | 10/11/2018 2:00 PM | | | | oz) | PDT | | + + + + + | Height | 177.8 cm (5' 10") | 10/11/2018 2:00 PM | | | | | PDT | | + + + + + | Body Mass Index | 29.13 | 10/11/2018 2:00 PM | | | | | PDT | | + + + + + documented in this encounter Progress Michael Doyle MD - 10/11/2018 3:00 PM PDTFormatting of this note might be differ ent from the original. No chief complaint on file. BALJIT Marquez is a 68 y.o. male patient of Lexie Cagle APRN here today for a follow u p for neurogenic bladder. MS-diagnosed in 1997, symptoms have been relatively stable with the exception of the bladde r History of neurogenic bladder detrusor instability with impaired contractility ISD Nephrolithiasis After consent was obtained the patient was brought back to the procedure and placed in supi ne position. A preprocedure timeout was performed. Prior to the procedure the patient rece ived an instillation of 40 mL of 2% lidocaine into the bladder. She was in place in the bulmaro harjeet lithotomy position and her genitals were prepped and draped usual fashion. A 19 [place] cystoscope was advanced bladder via the urethra. The bladder was grossly normal. The Botox needle was then placed into the bladder and the needle length was adjusted to 4mm . we then began the injection the posterior wall the bladder approximately 1 cm from the ure teral orifice. We then injected 1 mL of Botox solution into the bladder. This was repeated to form a grid on the posterior wall the bladder. A total of 30 injections were made deliv ering 10 units of Botox with each injection. A total of 300 units of Botox was used. The b ladder isn't drained and this terminated the procedure. Assessment Diagnoses and all orders for this visit: Neurogenic bladder - lidocaine 2% injection 40 mL - onabotulinumtoxinA (BOTOX) injection 300 Units - sodium chloride 0.9% injection flush 31 mL Urge incontinence - lidocaine 2% injection 40 mL - onabotulinumtoxinA (BOTOX) injection 300 Units - sodium chloride 0.9% injection flush 31 mL Pyuria - Urinalysis, Microscopic Only, with Culture if Indicated - POCT Urinalysis Other orders - Culture, Urine Plan patient follow-up in 2 weeks for reevaluation. 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 Multiple sclerosis (HCC) Neurogenic bladder Sleep apnea not using CPAP Past Surgical History Past Surgical History: Procedure Laterality Date BACK SURGERY nerve stimulators BLADDER SURGERY N/A 06/20/2018 Procedure: Cystoscopy, suprapubic catheter placement; Surgeon: Michael Fernandes MD; Location: [facility] MAIN OR CHOLECYCTOSTOMY CYSTOSCOPY N/A 04/19/2018 Procedure: Cystoscopy, bladder Botox, injection of urethral bulking agent; Surgeon: Gina Fernandes MD; Location: [facility] MAIN OR GASTRIC BYPASS SURGERY 2001 2 x HAND SURGERY 07/2018 KNEE SURGERY Bilateral LAP BAND 2010 urinary stimulator 2005 Family History: Family History Problem Relation Age of Onset Cancer Mother Cancer Father bone cancer Prostate cancer Neg Hx Social History: Social History Socioeconomic History Marital status: Single Spouse name: Not on file Number of children: Not on file Years of education: Not on file Highest education level: Not on file Tobacco Use Smoking status: Never Smoker Smokeless tobacco: Never Used Substance and Sexual Activity Alcohol use: No Drug use: No Sexual activity: Yes Partners: Female control/protection: Condom Allergies Allergen Reactions Adhesive & Tape Rash and Other (See Comments) Paper tape OK Medications: Current Outpatient Medications: amantadine (SYMMETREL) 100 mg capsule, Take by mouth., Disp: , Rfl: cephalexin (KEFLEX) 500 mg capsule, Take 500 mg by mouth., Disp: , Rfl: cholecalciferol (CHOLECALCIFEROL) 5000 units TABS, Take 5,000 Units by mouth Daily., D isp: , Rfl: DULoxetine (CYMBALTA) [address] capsule, Take 60 mg by mouth Daily., Disp: , Rfl: HYDROcodone-acetaminophen (NORCO) 5-325 mg per tablet, Take 5 mg by mouth., Disp: , Rf l: Nutritional Supplements (NUTRITIONAL DRINK) LIQD, Take 237 mLs by mouth 6 times daily. , Disp: 180 Can, Rfl: 5 oxybutynin (DITROPAN-XL) 10 MG 24 hr tablet, Take 1 tablet by mouth Daily., Disp: 30 t ablet, Rfl: 3 oxyCODONE (ROXICODONE) 5 mg tablet, Take 5-10 mg by mouth as needed., Disp: , Rfl: rOPINIRole (REQUIP) 2 MG tablet, Take 1 tablet by mouth nightly., Disp: 90 tablet, Rfl : 1 traZODone (DESYREL) 100 mg tablet, Take 1 tablet by mouth nightly., Disp: 30 tablet, R fl: 0 warfarin (COUMADIN) 5 mg tablet, 1 tab by mouth every evening, or as directed by kaylie ileana, Disp: 30 tablet, Rfl: 1 No current facility-administered medications for this visit. ROS Objective BP 136/88 | Pulse 56 | Resp 16 | Ht 1.778 m (5' 10") | Wt 92.1 kg (203 lb 0.7 oz) | BM I 29.13 kg/m General Appearance: Alert, cooperative, no distress, [...] orders placed or performed in visit on 10/11/18 Culture, Urine Result Value Ref Range Culture >100,000 CFU/ml Escherichia coli Urinalysis, Microscopic Only, with Culture if Indicated Result Value Ref Range WBC UA 15-25 (A) 0 - 2 /HPF WBC CLUMPS UA Few (A) None Seen /HPF RBC UA 0-2 0 - 2 /HPF SQUAMOUS EPITHELIAL UA 50-100 (A) 0 - 2 /LPF BACTERIA UA 4+ (A) Negative /HPF AMORPHOUS CRYSTALS Few (A) None Seen /HPF HYALINE CASTS UA 5-10 (A) 0 - 2 /LPF URINE COMMENT Urine Culture Set Up POCT Urinalysis Result Value Ref Range Color, UA, POC Dark Yellow (A) Yellow, Light Yellow Clarity, UA, POC Clear Glucose, UA, POC Negative Negative Bilirubin, UA, POC Negative Negative Ketones, UA, POC Negative Negative, 100 mg/dL Specific [place], UA, POC 1.015 1.001 - 1.030 Blood, UA, POC Trace Intact (A) Negative pH, UA, POC 5.0 5.0, 6.0, 7.0, 8.0, 5.5, 6.5, 7.5 Protein, UA, POC Negative Negative Urobilinogen, UA, POC 0.2 0.2, Negative, Normal, < 0.2 mg/dL, 1 mg/dL, < 0.2 E.U./dl, 1.0 E.U./dL, 0.2 mg/dL Nitrite, UA, POC Positive (A) Negative Leukocyte Esterase, UA, POC Small (A) Negative Reducing Substances, Urine Ictotest Negative Remark Lab Results Component Value Date CREA 0.84 06/01/2018 Lexie Cagle APRN's notes were reviewed in clinic today. No follow-ups on file.. This document was generated in part using voice recognition software. Frequent wrong word or sound-alike substitutions may have occurred due to the inherent limitations of the voice recognition software. Although I have attempted to edit the content, I have not thoroughly proofread this note, and supervisor wool shearing errors are very likely to occur. CC: Lexie Cagle APRN Dru Baldwin RN - 10/11/2018 3:00 PM PDTFormatting of this note might be different from the origin al. Nurse note: after sterile prep, 2% lidocaine gel instilled into urethra for patient comfort then 15 fr catheter inserted into bladder and about 50 cc yellow urine drained from bladder . 40 mL 2% lidocaine instilled into bladder in preparation for bladder injections of Botox. ...........................................Manju Mccartney RN on 10/11/18 at 14:27 Administrations This Visit lidocaine 2% injection 40 mL Admin Date 10/11/2018 Action Given Dose 40 mL Route Other Administered By Manju Mccartney RN onabotulinumtoxinA (BOTOX) injection 300 Units Admin Date 10/11/2018 Action Given Dose 300 Units Route Bladder Instillation Administered By Manju Mccartney RN sodium chloride 0.9% injection flush 31 mL Admin Date 10/11/2018 Action Given Dose 31 mL Route Intracatheter Administered By Manju Mccartney RN documented in thi s encounter Plan of Treatment +--------+---------+ + + + | Date | Type | Specialty | Care Team | Description | +--------+---------+ + + + | 11/12/ | Office | Sleep Medicine | Laith Sheffield PA | | | 2020 | Visit | | [address] | | | | | | [place] | | | | | | [address] | | | | | | | | +--------+---------+ + + + documented as of this encounter Procedures + +--------+ + + + | Procedure Name | Priori | Date/Time | Associated Diagnosis | Comments | | | ty | | | | + +--------+ + + + | POCT URINALYSIS, | Routin | 10/11/2018 | Pyuria | Results for this | | AUTO WITH CONF | e | 1:46 PM | | procedure are in the | | | | PDT | | results section. | + +--------+ + + + | URINALYSIS, | STAT | 10/11/2018 | Pyuria | Results for this | | MICROSCOPIC ONLY, | | 1:45 PM | | procedure are in the | | WITH CULTURE IF | | PDT | | results section. | | INDICATED | | | | | + +--------+ + + + | CULTURE, URINE | STAT | 10/11/2018 | | Results for this | | | | 1:45 PM | | procedure are in the | | | | PDT | | results section. | + +--------+ + + + documented in this encounter Results POCT Urinalysis (10/11/2018 1:46 PM PDT) + + + + + [...] + + + + | Clarity, | Clear | | | | | UA, POC [...] + + + + | Specific | 1.015 | 1.001 - 1.030 | | | | [place], | | | | | | UA, POC | | | | | + + + + + + | Blood, UA, | Trace Intact (A) | Negative | | | | POC | | | | | + + + + + + | pH, UA, POC | 5.0 | 5.0, 6.0, 7.0, | | | [...] + + + + | Leukocyte | Small (A) | Negative | | | | [...] + + | Urine | + + Culture, Urine (10/11/2018 1:45 PM PDT) + + + + + + | Component | Value | Ref Range | Performed | Pathologist | | | | | At | Signature | + + + + + + | Culture | >100,000 CFU/ml | | [facility] | | | | Escherichia coli, | | [facility] | | | | ESBLComment: *INFECTION | | MEDICAL | | | | PREVENTION ALERT - ESBL* | | CENTER - | | | | ESBLs are enzymes | | LABORATORY | | | | that mediate resistance | | | | | | to extended-spectrum | | | | | | (third generation) | | | | | | cephalosporins | | | | | | (e.g.,ceftazidime, | | | | | | cefotaxime, | | | | | | (aztreonam) but do not | | | | | | affect | | | | | | cephamycins(cefoxitin | | | | | | and cefotetan) | | | | | | orcarbapenems | | | | | | (e.g.,meropenem or | | | | | | imipenem). Patients who | | | | | | are identified with | | | | | | these organisms should | | | | | | be placed into CONTACT | | | | | | PRECAUTIONS. | | | | + + + + + + + + | Specimen | + + | Urine - Urine | | specimen obtained by | | clean catch | | procedure (specimen) | + + + + +--------+ + | Organism | Antibiotic | Method | Susceptibility | + + +--------+ + | Escherichia coli, | Cefazolin | | >=64 ug/mL: | | ESBL | | | Resistant | + + +--------+ + | Escherichia coli, | Cefoxitin | | <=4 ug/mL: | | [facility] | | | Sensitive | + + +--------+ + | Escherichia coli, | Ceftazidime | | Resistant | | ESBL | | | | + + +--------+ + | Escherichia coli, | Ceftriaxone | | >=64 ug/mL: | | [facility] | | | Resistant | + + +--------+ + | Escherichia coli, | Ciprofloxacin | | >=4 ug/mL: | | [facility] | | | Resistant | + + +--------+ + | Escherichia coli, | Ertapenem | | <=0.5 ug/mL: | | [facility] | | | Sensitive | + + +--------+ + | Escherichia coli, | Gentamicin | | >=16 ug/mL: | | [facility] | | | Resistant | + + +--------+ + | Escherichia coli, | Meropenem | | <=0.25 ug/mL: | | [facility] | | | Sensitive | + + +--------+ + | Escherichia coli, | Nitrofurantoin | | <=16 ug/mL: | | [facility] | | | Sensitive | + + +--------+ + | Escherichia coli, | Tobramycin | | 8 ug/mL: | | [facility] | | | Intermediate | + + +--------+ + | Escherichia coli, | Trimethoprim + | | >=320 ug/mL: | | ESBL | Sulfamethoxazole | | Resistant | + + +--------+ + + + + + + | Performing | Address | City/State/Zipcode | Phone Number | | Organization | | | | + + + + + | [facility] | [address] | [place] | [phone] | | [facility] | | [address] | | | - LABORATORY | | | | + + + + + Urinalysis, Microscopic Only, with Culture if Indicated (10/11/2018 1:45 PM PDT) + + + + + + | Component | Value | Ref Range | Performed | Pathologist | | | | | At | Signature | + + + + + + | White Blood | 15-25 (A) | 0 - 2 /HPF | [facility] | | | Cells, | | | [facility] | | | Urine | | | MEDICAL | | | | | | CENTER - | | | | | | LABORATORY | | + + + + + + | White Blood | Few (A) | None Seen /HPF | [facility] | | | Cell | | | [facility] | | | Clumps, | | | MEDICAL | | | [...] + + + + | Squamous | 50-100 (A) | 0 - 2 /LPF | [facility] [...] + + + + + + | Amorphous | Few (A) | None Seen /HPF | [facility] | | | Crystals, | | | [facility] | | | Urine | | | MEDICAL | | | | | | CENTER - | | | | | | LABORATORY | | + + + + + + | Hyaline | 5-10 (A) | 0 - 2 /LPF | [facility] | | | Casts, | | | [facility] | | | Urine | | | MEDICAL | | | | | | CENTER - | | | | | | LABORATORY | | + + + + + + | Urine | Urine Culture Set Up | | [facility] | | | Comment | | | [facility] | | [...] ST. | [address] | [place] | [phone] | | [facility] | | [address] | | | - LABORATORY | | | | + + + + + documented in this encounter Visit Diagnoses + + | Diagnosis | + + | Neurogenic bladder - Primary Neurogenic bladder, NOS | + + | Urge incontinence | + + | Pyuria Other nonspecific finding on examination of urine | + + documented in this encounter Administered Medications + +--------+ +--------+------+---------+ | Medication Order | MAR | Action | Dose | Rate | Site | | | Action | Date | | | | + +--------+ +--------+------+---------+ | lidocaine 2% injection 40 mL | Given | 10/12/19 | 40 mLs | | Bladder | | 40 mL, Other, ONCE, Jemma 10/11/18 | | 19 2:24 | | | | | at 1445, For 1 dose | | PM PDT | | | | + +--------+ +--------+------+---------+ +---+---+ | | | +---+---+ + +-------+ +-------+---+---------+ | onabotulinumtoxinA (BOTOX) | Given | 10/12/19 | 300 | | Bladder | | injection 300 Units 300 Units, | | 19 3:20 | Units | | | | Bladder Instillation, ONCE, Jemma | | PM PDT | | | | | 10/11/18 at 1600, For 1 dose, | | | | | | | Bladder injections, | | | | | | + +-------+ +-------+---+---------+ +---+---+ | | | +---+---+ + +-------+ +--------+---+---------+ | sodium chloride 0.9% injection | Given | 10/12/19 | 31 mLs | | Bladder | | flush 31 mL 31 mL, | | 19 3:20 | | | | | Intracatheter, ONCE, [facility] 10/11/18 | | PM PDT | | | | | at 1600, For 1 dose, For Botox | | | | | | | reconstitution and | | | | | | | administration, | | | | | | + +-------+ +--------+---+---------+ +---+---+ | | | +---+---+ documented in this encounter
--- OUTSIDE RECORDS SUMMARY | ~2019-08-23 | XMS | Encounter Summary ---
Demographics + + + | Address | [address] | | | [place] [address] | + + + | Home Phone | | + + + | Preferred Language | Unknown | + + + | Marital Status | Single | + + + | Mu-Ism Affiliation | MOSQUE | + + + | Race | White | + + + | Ethnic Group | Not or | + + + Author + + + | Author | [facility] | + + + | Organization | [facility] | + + + | Address | Unknown | + + + | Phone | Unavailable | + + + Support + + +---------+ + | Name | Relationship | Address | Phone | + + +---------+ + | Theodore Marquez | ECON | Unknown | | + + +---------+ + Care Team Providers + +------+ + | Care Assistant Shift Supervisor Name | Role | Phone | + +------+ + | Trevin Delacruz MD | PCP | | + +------+ + Encounter Details +--------+ + + + + | Date | Type | Department | Care Team | Description | +--------+ + + + + | 02/24/ | Anesthesia | Preoperative | Lang, | | | 2015 | Event | Medicine Clinic at | Trevin Alberts NP [address] | | | | | [facility] 4th Floor [address] | JESS [address] | | | | | Kayli Fitzpatrick | [place], [place] | | | | | Mailcode: [facility] | [id number] | | | | | [facility] | [phone] | | | | | and Healing, | | | | | | Building [address]4th Floor | | | | | | [place], [place] | | | | | | [address] | | | | | | [phone] | | | +--------+ + + + + Anesthesia Record + + + + + | Procedure Name | Responsible | Anesthesia Start | Anesthesia Stop Time | | | Anesthesiologist | Time | | + + + + + | PREANESTHETIC | | | | | EVALUATION | | | | + + + + + + + | No events on file. | + + +------+ | Meds | +------+ + + + No medications | on file. | + + + + + | No agents on file. | + + + + | No blood administrations on file. | + + + + | No LDAs on file. | + + documented in this encounter Social History + +-------+ [...] | | | | | | [place] [address] | | +--------+ + + + + documented as of this encounter Visit Diagnoses Not on filedocumented in this encounter"
--- OUTSIDE RECORDS SUMMARY | ~2019-08-23 | XMS | Encounter Summary ---
Demographics + + + | Address | [address] | | | [place] [address] | + + + | Home Phone | | + + + | Preferred Language | Unknown | + + + | Marital Status | Single | + + + | Holiness Affiliation | BUDDHISM | + + + | Race | [...] Team Providers + +------+ + | Care Crate Maker Name | Role | Phone | + +------+ + | Jose Hameed MD | PCP | | + +------+ + Encounter Details +--------+--------+ + + + | Date | Type | Department | Care Team | Description | +--------+--------+ + + + | 05/16/ | Travel | | | | | 2020 | | | | | +--------+--------+ + [...] | | | | | | [place] [address] | | +--------+ + + + + documented as of this encounter Visit Diagnoses Not on filedocumented in this encounter"
--- OUTSIDE RECORDS SUMMARY | ~2019-08-23 | XMS | Encounter Summary ---
Demographics + + + | Address | [address] | | | [place] [address] | + + + | Home Phone | | + + + | Preferred Language | Unknown | + + + | Marital Status | | + + + | Worship Affiliation | Unknown | + + + | Race | Unknown | + + + | Ethnic Group | Unknown | + + + Author + + + | Author | [facility] | | | and Jaden[place] | + + + | Organization | [facility] | | | and [...] | | | | | [place] [address] | | + + + + + Care Team Providers + +------+ + | Care Prepared Foods Supervisor Name | Role | Phone | + +------+ + | Lexie Cagle | PCP | | | ASSEMBLER MUSICAL EQUIPMENT | | | + +------+ + Reason [...] | | [place] | [place] | | | | | [address] | [address] | | | | | [phone] | | | +--------+ + + + [...] 2020 | Visit | | [address] | | | | | | [place] | | | | | | [address] | | | | | | | | +--------+---------+ + + + documented as of this encounter Visit Diagnoses Not on filedocumented in this encounter"
--- OUTSIDE RECORDS SUMMARY | ~2019-08-23 | XMS | Encounter Summary ---
Demographics + + + | Address | [address] | | | [place] [address] | + + + | Home Phone | | + + + | Preferred Language | Unknown | + + + | Marital Status | | + + + | Yazdanism Affiliation | Unknown | + + + | Race | Unknown | + + + | Ethnic Group | Unknown | + + + Author + + + | Author | [facility] | | | and Jaden[place] | + + + | Organization | [facility] | | [...] | | | | | [place] [address] | | + + + + + Care Team Providers + +------+ + | Care Weaver Dobby Loom Name | Role | Phone | + +------+ + | Lexie Cagle | PCP | | | STAFF PSYCHIATRIST | | | + +------+ + Reason for Visit + + + | Reason | Comments | + + + | Lab Order | | + + + Encounter Details +--------+ + + + + | Date | Type | Department | Care Team | Description | +--------+ + + + + | 06/01/ | Telephone | [facility] | Lexie Cagle | Lab Order | | 2019 | | MEDICINE [address] | [address] | | [address] | [facility] | | | | | [place] [address] | [place] [address] | | | | | [phone] | [phone] | | | | | | | [...] 2020 | Visit | | [address] | | | | | | [place] | | | | | | [address] | | | | | | | | +--------+---------+ + + + documented as of this encounter Visit Diagnoses Not on filedocumented in this encounter"
--- OUTSIDE RECORDS SUMMARY | ~2019-08-23 | XMS | Encounter Summary ---
Demographics + + + | Address | [address] | | | [place] [address] | + + + | Home Phone | | + + + | Preferred Language | Unknown | + + + | Marital Status | | + + + | Pentecostalism Affiliation | Unknown | + + + | Race | Unknown | + + + | Ethnic Group | Unknown | + + + Author + + + | Author | [facility] | | | and [place]aden[place] | + + + | Organization | [facility] | | | and [...] | | | | | [place] [address] | | + + + + + Care Team Providers + +------+ + | Care Rn X Ray Name | Role | Phone | + +------+ + | Lexie Cagle | PCP | | | MANAGER DATABASE | | | + +------+ + Reason [...] | | | | ([address]) | | [address] | | | | | Procedures | | [place] | | | | | [place] | | [address] Phone: | | | | | INCISE/DRAIN | | [phone] | | | | | BLADDER | | Fax: | | | | | | | [phone] | +--------+--------+ + + + + Encounter Details +--------+---------+ + + + | Date | Type | Department | Care Team | Description | +--------+---------+ + + + | 06/20/ | Surgery | [facility] | Michael Fernandes | Cystoscopy, | | 2019 | | MED CTR OR INTRA OP | MD [address] | suprapubic catheter | | | | [address] | [address] [place] | placement | | | | [place]CI[place] | [address] | | | | | [address] | | | | | | [phone] | | | +--------+---------+ + + + [...] [place] | | | | | | [id number] | | | | | | | [...] glucose < 50, | | | Starting Mon06/20/18 at 0842, | | | Repeat in [...] MIN PRN, Pain, Starting | | | 06/20/18 at 0942, Maximum | | | total [...] ONCE | | | PRN, Nausea, Starting 06/20/18 | | | at 0942, For 1 [...]
--- OUTSIDE RECORDS SUMMARY | ~2019-08-23 | XMS | Encounter Summary ---
Demographics + + + | Address | [address] | | | [place] [address] | + + + | Home Phone | | + + + | Preferred Language | Unknown | + + + | Marital Status | Single | + + + | Uatsdin Affiliation | JUDAISM | + + + | Race | White | + + + | Ethnic Group | Not or | + + + Author + + + | Author | [facility] | + + + | Organization | [facility] | + + + | Address | Unknown | + + + | Phone | Unavailable | + + + Support + + +---------+ + | Name | Relationship | Address | Phone | + + +---------+ + | Theodore Marquez | ECON | Unknown | | + + +---------+ + Care Team Providers + +------+ + | Care Traveling Missionary Name | Role | Phone | + +------+ + | Jose Hameed MD | PCP | | + +------+ + Encounter Details +--------+ + + + + | Date | Type | Department | Care Team | Description | +--------+ + + + + | 01/16/ | Telephone | Neurology at | [place], | | | 2019 | | [facility] & | Shiloh Mukherjee MD | | | | | Healing [address] | [address] | | | | | Ave Mailcode: CH8C | [place], [place] | | | | | [facility] | [address] | | | | | and Healing, | [phone] | | | | | | | | | | | Floor [place], [place] | | | | | | [address] | | | | | | [phone] | | | +--------+ + + + [...] | | | | | | [place] [address] | | +--------+ + + + + documented as of this encounter Visit Diagnoses Not on filedocumented in this encounter"
--- OUTSIDE RECORDS SUMMARY | ~2019-08-23 | XMS | Encounter Summary ---
Demographics + + + | Address | [address] | | | [place] [address] | + + + | Home Phone | | + + + | Preferred Language | Unknown | + + + | Marital Status | Single | + + + | Yazdanism Affiliation | HINDU | + + + | Race | White | + + + | Ethnic Group | Not or | + + + Author + + + | Author | [facility] | + + + | Organization | [facility] | + + + | Address | Unknown | + + + | Phone | Unavailable | + + + Support + + +---------+ + | Name | Relationship | Address | Phone | + + +---------+ + | Theodore Marquez | ECON | Unknown | | + + +---------+ + Care Team Providers + +------+ + | Care Signal Helper Name | Role | Phone | + +------+ + | Trevin Delacruz MD | PCP | | + +------+ + Reason for Visit + + + | Reason | Comments | + + + | Discussion | | + + + Encounter Details +--------+ + + + + | Date | Type | Department | Care Team | Description | +--------+ + + + + | 08/22/ | Telephone | [facility] | Liliana Conteh, | Discussion | | 2014 | | Center at [facility] [address] | ACNP [address] | | | | | [address] | Ave [place], [place] | | | | | Mailcode: [place] | [address] | | | | | for Health and | [phone] | | | | | [facility] [address] | | | | | | [place], [place] | | | | | | [address] | | | | | | | [...] | | | | | | [place] [address] | | +--------+ + + + + documented as of this encounter Visit Diagnoses Not on filedocumented in this encounter"
--- OUTSIDE RECORDS SUMMARY | ~2019-08-23 | XMS | Encounter Summary ---
Demographics + + + | Address | [address] | | | [place] [address] | + + + | Home Phone | | + + + | Preferred Language | Unknown | + + + | Marital Status | Single | + + + | Mandaen Affiliation | MOSQUE | + + + [...] Team Providers + +------+ + | Care Psychologist Clinical Name | Role | Phone | + [...] | Specialty | Ophthalmology | Diagnoses | [place], | Cei Comp | | | Services | | Multiple | [place], | Oph Fac Chh1 | | | Required | | sclerosis | DO [place] | [address] | | | | | (HCC) | [address] | Ave | | | | | Procedures | [address] | Mailcode: | | | | | CONSULT TO | [address] | [facility] | | | | | OPHTHALMOLOG | [address] | for Health | | | | | Y | [place], [place] | and Healing, | | | | | | [address] | [address], | | | | | | Phone: | 11th Floor | | | | | | [phone] | [place], [place] | | | | | | Fax: | [address] | | | | | | [phone] | Phone: | | | | | | | [phone] | | | | | | | Fax: | | | | | | | [phone] | +--------+ + + + + + Encounter Details +--------+---------+ + + + | Date | Type | Department | Care Team | Description | +--------+---------+ + + + | 04/08/ | Office | [facility] | Thaddeus Romo MD | Multiple sclerosis | | 2015 | Visit | [place]/[facility]hthalmol | [address] | ([facility]) (Primary Dx); | | | | ogy at [facility] [address] | [place], [place] | Senile nuclear | | | | [address] Mailcode: | [address] | sclerosis, | | | | [facility] | [phone] | bilateral; Color | | | | Health and Healing, | | blindness, | | | | | | congenital | | | | Floor [facility] [place] | | | | | | [address] | | | | | | [phone] | | | +--------+---------+ + + + [...] HPI: 64 y.o. year old male from [place] : Patient presents with: Medical Eye Examination [...] Time: 8:31 AM Manifest Refraction Sphere Cylinder [place] Dist Right plano +0.50 005 20/15-1 Left plano +1.00 164 20/20 Manifest Refraction #2 (Auto) Sphere Cylinder [place] Dist Right -0.25 +0.50 005 20/20 Left [...] Color blindness Early cataracts OU. Plan: Schedule [facility] 24-2 Call with result, likely f/u 1 year Thaddeus Romo MD Core Analysis Operator Comprehensive Op[facility] [place] Physician: Thaddeus Romo MD, 04/08/2014 documented in this enc ounter Plan of Treatment +--------+ + + + + | Date | Type | Specialty | Care Team | Description | +--------+ + + + + | 10/31/ | Appointment | Hematology & | Onc, Gen [address] | | | 2020 | | Oncology | [address] [place], | | | | | | [place] [address] | | +--------+ + + + + documented as of this encounter Visit Diagnoses + + | Diagnosis | + + | Multiple sclerosis (HCC) - Primary Multiple sclerosis | + + | Senile nuclear sclerosis, bilateral | + + | Color blindness, congenital Other color vision deficiencies | + + documented in this encounter"
--- OUTSIDE RECORDS SUMMARY | ~2019-08-23 | XMS | Encounter Summary ---
Demographics + + + | Address | [address] | | | [place] [address] | + + + | Home Phone | | + + + | Preferred Language | Unknown | + + + | Marital Status | | + + + | Buddhist Affiliation | Unknown | + + + | Race | Unknown | + + + | Ethnic Group | Unknown | + + + Author + + + | Author | [facility] | | | and Jadenana | + + + | Organization | [facility] [...] | | | | | [place] [address] | | + + + + + Care Team Providers + +------+ + | Care Vaccine Specialist Name | Role | Phone | + +------+ + | Lexie Cagle | PCP | | | SILVER SOLDERER | | | + +------+ + Reason for Visit + + + | Reason | Comments | + + + | Neurogenic Bladder | treatment options | + + + Encounter Details +--------+---------+ + + + | Date | Type | Department | Care Team | Description | +--------+---------+ + + + | 04/30/ | Office | [facility] | Michael Fernandes | Neurogenic bladder | | 2019 | Visit | [address] | MD [address] | (Primary Dx); | | | | PRECIOUS [place] | PRECIOUS [place] | Intrinsic sphincter | | | | [address] | [address] | deficiency (ISD); | | | | [phone] | | Urge incontinence | +--------+---------+ + + + Social History [...] + + + | Blood Pressure | 140/80 | 04/30/2018 8:46 AM | | | | | PST | | + + + + + | Pulse | 72 | 04/30/2018 8:46 AM | | | | | PST | | + + + + + | Temperature | - | - | | + + + + + | Respiratory Rate | 18 | 04/30/2018 8:46 AM | | | | | PST | | + + + + + | Oxygen Saturation | - | - | | + + + + + | Inhaled Oxygen | - | - | | | Concentration | | | | + + + + + | Weight | 89.5 kg (197 lb 5 | 04/30/2018 8:46 AM | | | | oz) | PST | | + + + + + | Height | 177.8 cm (5' 10") | 04/30/2018 8:46 AM | | | | | PST | | + + + + + | Body Mass Index | 28.31 | 04/30/2018 8:46 AM | | | | | PST | | + + + + + documented in this encounter Progress Michael Doyle MD - 04/30/2018 9:00 AM PSTFormatting of this note might be differ ent from the original. Chief Complaint Patient presents with Neurogenic Bladder treatment options HPI Mian Marquez is a 68 y.o. male patient of Lexie Cagle APRN here today for a follow u p for neurogenic bladder to talk about treatment options. MS-diagnosed in 1997, symptoms have been relatively stable with the exception of the bladde r History of neurogenic bladder detrusor instability with impaired contractility ISD Nephrolithiasis Patient recently underwent cystoscopy with bladder Botox and injection of urethral bulking agent. Patient reports mild improvement in his symptoms however he is still leaking significantly. He feels like the urethral bulking agent did little to nothing for his symptoms. He denies any gross hematuria or dysuria. He continues using 3-4 depends per day and jordan terizes 8-12 times per day. Assessment Mian was seen today for neurogenic bladder. Diagnoses and all orders for this visit: Neurogenic bladder - Case request: Cystoscopy, suprapubic catheter placement; N/A Intrinsic sphincter deficiency (ISD) Urge incontinence Plan Possible suprapubic tube placement on May 31 Check urine culture at pre op visit 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 Multiple sclerosis (HCC) Neurogenic bladder Past Surgical History Past Surgical History: Procedure Laterality Date BACK SURGERY nerve stimulators CYSTOSCOPY N/A 04/19/2018 Procedure: Cystoscopy, bladder Botox, injection of urethral bulking agent; Surgeon: Gina Fernandes MD; Location: [facility] MAIN OR GASTRIC BYPASS SURGERY 2001 2 [...] No Known Allergies Medications: Current Outpatient Prescriptions: cyanocobalamin (VITAMIN B-12) 1,000 mcg/mL injection, 1,000 mcg., Disp: , Rfl: DULoxetine (CYMBALTA) [address] capsule, Take 60 mg by mouth Daily., Disp: , Rfl: econazole 1% cream, econazole 1 % topical cream, Disp: , Rfl: Ergocalciferol (VITAMIN D2) 2000 units TABS, Vitamin D2 50,000 unit capsule, Disp: , R fl: HYDROcodone-acetaminophen (NORCO) 5-325 mg per tablet, Take 1-2 tablets by mouth every 4 hours as needed for Pain., Disp: 10 tablet, Rfl: 0 OXYBUTYNIN CHLORIDE PO, Take 1 tablet by mouth. Patient taking 15 mg daily, Disp: , Rf l: rOPINIRole (REQUIP) 2 MG tablet, Take 2 mg by mouth as needed., Disp: , Rfl: traZODone (DESYREL) 100 mg tablet, Take 100 mg by mouth nightly., Disp: , Rfl: Review of Systems Constitutional: Negative for chills and fever. Respiratory: Negative for cough and wheezing. Cardiovascular: Negative for chest pain. Gastrointestinal: Negative for nausea and vomiting. Objective BP 140/80 | Pulse 72 | Resp 18 | Ht 1.778 m (5' 10") | Wt 89.5 kg (197 lb 5 oz) | BMI 28.31 kg/m General Appearance: Alert, cooperative, no distress, [...] orders placed or performed in visit on 04/20/18 External: Colonoscopy Result Value Ref Range Colonoscopy Impression, External adenomatous polyps, repeat 3 years External Lab: Hepatitis C Ab Result Value Ref Range HCV, External Non-Reactive Non-Reactive No results found for: CASH Cagle APRN's notes were reviewed in clinic today. Return in about 3 weeks (around 05/21/2018) for possible suprapubic tube placement.. This document was generated in part using voice recognition software. Frequent wrong word or sound-alike substitutions may have occurred due to the inherent limitations of the voice recognition software. Although I have attempted to edit the content, I have not thoroughly proofread this note, and personal care assistant errors are very likely to occur. 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
--- OUTSIDE RECORDS SUMMARY | ~2019-08-23 | XMS | Encounter Summary ---
Demographics + + + | Address | [address] | | | [place] [address] | + + + | Home Phone | | + + + | Preferred Language | Unknown | + + + | Marital Status | Single | + + + | Yazidism Affiliation | PROTESTANT | + + + | Race | White | + + + | Ethnic Group | Not or | + + + Author + + + | Author | [facility] | + + + | Organization | [facility] | + + + | Address | Unknown | + + + | Phone | Unavailable | + + + Support + + +---------+ + | Name | Relationship | Address | Phone | + + +---------+ + | Theodore Marquez | ECON | Unknown | | + + +---------+ + Care Team Providers + +------+ + | Care Varnishing Machine Operator Name | Role | Phone | + +------+ + | Jose Hameed MD | PCP | | + +------+ + Reason for Visit + + + | Reason | Comments | + + + | IV - Intravenous | | | infusion | | + + + Encounter Details +--------+ + + + + | Date | Type | Department | Care Team | Description | +--------+ + + + + | 11/20/ | Hospital | [facility] | Onc, Gen [address] | | | 2019 | Encounter | Clinics at S | [address] [place], | | | | | [facility] | [place] [address] | | | | | for Health and | | | | | | [facility] [address] | | | | | | [place], [place] | | | | | | [address] | | | | | | [phone] | | | +--------+ + + + [...] + + + | Blood Pressure | 145/85 | 11/20/2018 4:06 PM | | | | | PDT | | + + + + + | Pulse | 67 | 11/20/2018 4:06 PM | | | | | PDT | | + + + + + | Temperature | 36.4 C (97.5 F) | 11/20/2018 4:06 PM | | | | | PDT | | + + + + + | Respiratory Rate | 16 | 11/20/2018 4:06 PM | | | | | PDT | | + + + + + | Oxygen Saturation | 100% | 11/20/2018 10:58 AM | | | | | PDT | | + + + + + | Inhaled Oxygen | - | - | | | Concentration | | | | + + + + + | Weight | 93 kg (205 lb 1.6 | 11/20/2018 10:58 AM | | | | oz) | PDT | | + + + + + | Height | - | - | | + + + + + | Body Mass Index | 29.43 | 10/31/2016 3:28 PM | | | [...] + + +---------+ + + | warfarin 5 mg oral | Take 5 mg by mouth | | 0 | | | | tablet | once daily. | | | | | + + + +---------+ + + documented as of this encounter Progress Notes Elvie Huang RN - 11/20/2018 10:38 AM PDTINFUSION NURSING NOTE Medication/Infusion: Ocrevus 600 mg every 6 months. Physician: Dr. Cunha Subjective: Patient denies any current infections, fevers, cold or flu. Patient also reports no recent or upcoming surgeries. Pain: yes: location generalized/left wrist, intensity 3/10 Patient was pre-medicated Acetaminophen, Loratadine and Methylprednisolone. See MAR for det ails. 24g PIV placed to patient's right hand per protocol. Site dressed with sterile gauze and co ban. Patient tolerated well with no complaints. For infusion details, please see MAR and flowsheet. Patient tolerated well, with no complaints. PIV discontinued intact. Patient discharged home ambulatory from clinic. documented in this encounter Plan of Treatment +--------+ + + + + | Date | Type | Specialty | Care Team | Description | +--------+ + + + + | 10/31/ | Appointment | Hematology & | Onc, Gen [address] | | | 2019 | | Oncology | [address] [place], | | | | | | [place] [address] | | +--------+ + + + + documented as of this encounter Visit Diagnoses + + | Diagnosis | + + | Multiple sclerosis (HCC) - Primary Multiple sclerosis | + + documented in this encounter Administered Medications + +--------+ +--------+------+------+ | Medication Order | MAR | Action | Dose | Rate | Site | | | Action | Date | | | | + +--------+ +--------+------+------+ | acetaminophen (TYLENOL) tablet | Given | 11/21/19 | 650 mg | | | | 650 mg 650 mg, oral, ONCE, 1 | | 19 11:28 | | | | | dose, Tue 19 at 1115 | | AM PDT | | | | + +--------+ +--------+------+------+ +---+---+ | | | +---+---+ + +-------+ +-------+---+---+ | loratadine (CLARITIN) tablet 10 | Given | 11/21/19 | 10 mg | | | | mg 10 mg, oral, NEEDED, 1 | | 19 11:28 | | | | | dose, Starting Mon11/20/18 at | | AM PDT | | | | | 1103, Until Mon11/20/18 at 1128, | | | | | | | Give instead of diphenhydrAMINE | | | | | | | 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 | | | | | | + +-------+ +-------+---+---+ +---+---+ | | | +---+---+ + +-------+ +--------+---+---+ | methylPREDNISolone sod succ | Given | 11/21/19 | 100 mg | | | | (PF) (SOLU-MEDROL) injection 100 | | 19 11:28 | | | | | mg 100 mg, intravenous, ONCE, 1 | | AM PDT | | | | | dose, Ron 11/20/18 at 1115 | | | | | | + +-------+ +--------+---+---+ +---+---+ | | | +---+---+ + +---------+ +--------+ +---+ | ocrelizumab (OCREVUS) 600 mg in | New Bag | 11/21/19 | 600 mg | 30 mL/hr | | | NaCl 0.9 % (NS) IV 600 mg, | | 19 12:03 | | | | | intravenous, ONCE, 1 dose, Ron | | PM PDT | | | | | 11/20/18 at 1200 | | | | | | + +---------+ +--------+ +---+ +---+---+ | | | +---+---+ documented in this encounter"
--- OUTSIDE RECORDS SUMMARY | ~2019-08-23 | XMS | Encounter Summary ---
Demographics + + + | Address | [address] | | | [place] [address] | + + + | Home Phone | | + + + | Preferred Language | Unknown | + + + | Marital Status | | + + + | Methodist Affiliation | Unknown | + + + | Race | Unknown | + + + | Ethnic Group | Unknown | + + + Author + + + | Author | [facility] | | | and [place]aden[place] | + + + | Organization | [facility] | | | and [...] | | | | | [place] [address] | | + + + + + Care Team Providers + +------+ + | Care Corporate Bond Trader Name | Role | Phone | + +------+ + | Shmuel Merrill | | + +------+ + Reason for Visit +--------+ + | Reason | Comments | +--------+ + | Other | | +--------+ + Encounter Details +--------+ + + + + | Date | Type | Department | Care Team | Description | +--------+ + + + + | 06/18/ | Telephone | [facility] | Shmuel Merrill | Other | | 2019 | | MEDICINE [address] | [address] | | | | | [place] | [place] | | | | | [place] [address] | [address] | | | | | [phone] | | | +--------+ + + + [...] [place] | | | | | | [address] | | | | | | | | +--------+---------+ + + + documented as of this encounter Visit Diagnoses Not on filedocumented in this encounter"
--- OUTSIDE RECORDS SUMMARY | ~2019-08-23 | XMS | Encounter Summary ---
Demographics + + + | Address | [address] | | | [place] [address] | + + + | Home Phone [...] | [facility] | | | and [place] | + + + | Organization | [facility] [place] [facility] | | [...] | | | | | [place] [address] | | + + + + + Care Team Providers + +------+ + | Care Real Estate Instructor Name | Role | Phone | + +------+ + | Lexie Cagle | PCP | | | CUSTOMER SERVICE AND SALES CONSULTANT | | | + +------+ + Reason for Visit +--------+ + | Reason | Comments | +--------+ + | Other | blood pressure reading | +--------+ + Encounter Details +--------+ + + + + | Date | Type | Department | Care Team | Description | +--------+ + + + + | 02/01/ | Telephone | [facility] | Lexie Cagle | Other (blood | | 2019 | | MEDICINE [address] | [address] | pressure reading) | | | | [facility] | [facility] | | | | | [place] [address] | [place] [address] | | | | | [phone] | [phone] | | | | | | | [...] 2019 | Visit | | [address] | | | | | | [place] | | | | | | [address] | | | | | | | | +--------+---------+ + + + documented as of this encounter Visit Diagnoses + + | Diagnosis | + + | Flank pain - Primary Abdominal pain, unspecified site | + + documented in this encounter"
--- OUTSIDE RECORDS SUMMARY | ~2019-08-23 | XMS | Encounter Summary ---
Demographics + + + | Address | [address] | | | [place] [address] | + + + | Home Phone | | + + + | Preferred Language | Unknown | + + + | Marital Status | Single | + + + | Latter Day Affiliation | TENRIISM | + + + | Race | White | + + + | Ethnic Group | Not or | + + + Author + + + | Author | [facility] | + + + | Organization | [facility] | + + + | Address | Unknown | + + + | Phone | Unavailable | + + + Support + + +---------+ + | Name | Relationship | Address | Phone | + + +---------+ + | Theodore Marquez | ECON | Unknown | | + + +---------+ + Care Team Providers + +------+ + | Care Parts Picker Name | Role | Phone | + +------+ + | Trevin Delacruz MD | PCP | | + +------+ + Reason for Visit AUTH/CERT +--------+--------+ + + + + | Status | Reason | Specialty | Diagnoses / | Referred By | Referred To | | | | | Procedures | Contact | Contact | +--------+--------+ + + + + | Closed | | | | | | +--------+--------+ + + + + Encounter Details +--------+ + + + + | Date | Type | Department | Care Team | Description | +--------+ + + + + | 08/21/ | Hospital | [facility] GI PROCEDURE | Emilie Sanchez, | | | 2014 | Encounter | [address] | | | | | | [place] Mailcode: [facility] | | | | | | [facility] | | | | | | [facility], | | | | | | [address] | | | | | | [place], [place] | | | | | | [address] | | | | | | [phone] | | | +--------+ + + + [...] + + + | Blood Pressure | 123/83 | 08/21/2014 3:24 PM | | | | | PDT | | + + + + + | Pulse | 62 | 08/21/2014 3:24 PM | | | | | PDT | | + + + + + | Temperature | 37.3 C (99.1 F) | 08/21/2014 2:34 PM | | | | | PDT | | + + + + + | Respiratory Rate | 16 | 08/21/2014 3:24 PM | | | | | PDT | | + + + + + | Oxygen Saturation | 98% | 08/21/2014 3:24 PM | | | | | PDT | | + + + + + | Inhaled Oxygen | - | - | | | Concentration | | | | + + + + + | Weight | - | - | | + + + + + | Height | - | - | | + + + + + | Body Mass Index | - | - | | + + + + + documented in this encounter Discharge Instructions Instructions Sangeeta Gray RN - 08/21/2014 Home Care Instructions after EGD (Upper Endoscopy) You may resume your normal diet and medications unless told otherwise. Medications The medications you received for your procedure can cause you to be forgetful and drowsy an d will take the remainder of the day to wear off. DO NOT drink alcohol, drive, operate heavy machinery, sign legal documents, or make major d ecisions until tomorrow. Common After Effects Mild abdominal pain, bloating, and gas. Sore throat. You may treat it with throat lozenges and/or gargle with warm salt water. You may bruise at your IV site. If you have pain, redness, or swelling at your IV site, apply a warm compress. Complications Call your GI doctor if you have: Abnormal pain or any new unexplained symptoms. Shortness of breath, chest or neck pain. Vomiting blood or rectal bleeding. Fever above 101.5 Redness, pain, or swelling at your IV site that is not relieved with warm compress. For any questions related to your procedure, call Monday- Monday 8:00- 4:30 Endoscopy Toll Free ext [phone] or After business hours, or on weekends and holiday Hospital OperatorToll Free -[phone] ext. [phone] and have the GI doctor environmental aide paged. The provider who performed your procedure is: Dr. Sanchez Results of your exam: Normal Follow up Appointments with: Your primary care provider as needed Your primary care provider or Referring provider will receive copies of the procedure repo rt and all the pathology reports with recommendations for treatment if needed. documented in this encounter Medications at Time [...] | | | | | | [place] [address] | | +--------+ + + + + documented as of this encounter Procedures + +--------+ + + + | Procedure Name | Priori | Date/Time | Associated Diagnosis | Comments | | | ty | | | | + +--------+ + + + | EGD | | 08/21/2014 | | Results for this | | | | 12:00 AM | | procedure are in the | | | | PDT | | results section. | + +--------+ + + + documented in this encounter Results EGD (08/21/2014 12:00 AM PDT) + + + | Narrative | Performed At | + + + | | | + + + documented in this encounter Visit Diagnoses Not on filedocumented in this encounter Administered Medications + +--------+ +---------+------+------+ | Medication Order | MAR | Action | Dose | Rate | Site | | | Action | Date | | | | + +--------+ +---------+------+------+ | fentaNYL citrate (PF) | Given | 08/22/19 | 100 mcg | | | | (SUBLIMAZE) injection 1 dose, | | 15 2:57 | | | | | Starting [facility] 08/21/14 at 1431, | | PM PDT | | | | | Until [facility] 08/21/14 at 1457 | | | | | | + +--------+ +---------+------+------+ +---+---+ | | | +---+---+ + +-------+ +------+---+---+ | midazolam (PF) (VERSED) | Given | 08/22/19 | 3 mg | | | | injection 1 dose, Starting Jemma | | 15 2:57 | | | | | 08/21/14 at 1431, Until Jemma | | PM PDT | | | | | 08/21/14 at 1457 | | | | | | + +-------+ +------+---+---+ +---+---+ | | | +---+---+ + +---------+ + + +---+ | NaCl 0.9 % IV 50 mL/hr, | New Bag | 08/22/19 | 50 mL/hr | 50 mL/hr | | | intravenous, CONTINUOUS, Starting | | 15 2:57 | | | | | Jemma 08/21/14 at 1515, Until Jemma | | PM PDT | | | | | 08/21/14 at 2143 | | | | | | + +---------+ + + +---+ +---+---+ | | | +---+---+ documented in this encounter"
--- OUTSIDE RECORDS SUMMARY | ~2019-08-23 | XMS | Encounter Summary ---
Demographics + + + | Address | [address] | | | [place] [address] | + + + | Home Phone | | + + + | Preferred Language | Unknown | + + + | Marital Status | Single | + + + | Uatsdin Affiliation | ORTHODOX | + + + | Race | [...] Team Providers + +------+ + | Care Nurse Liaison Name | Role | Phone | + +------+ + PCP | Unavailable | + +------+ + Encounter Details +--------+ + + + + | Date | Type | Department | Care Team | Description | +--------+ + + + + | 09/01/ | Office | | Note, Outpatient | Progress Note | | 2005 | Visit-Trans | | Clinic | | [...] as of this encounter Progress Notes Interface, Process Supervisor In - 10/24/2004 6:13 AM PDT [id number] [facility] Date: 09/01/2004 Clinic: Neurology/Multiple Sclerosis/Neuroimmunology Clinic Mr. Marquez is here for screening for the memantine study. His Limon Depression Inventory today is 22. He denies suicidal ideation. Unfortunately, his Limon score is still too high to be able to participate in the study, but it is clearly better than last visit. He has started on the Lexapro besides the Wellbutrin; he is tolerating that fine. I discussed with him about the possibility of screening him again later on down the line and discussing with his neurologist or primary care physician and increasing the dose of the Lexapro. However, he was quite upset that he could not participate in the study at this time and did not want any further contact to be made with him, and he did not want to address his depression issues any further. Lei Huitron M.D. MYKE / VICTOR M [id number] / [id number] / [id number] / [id number] Electronically signed by Lei Huitron 09-07-2004 09:17:51 AM documented i n this encounter Plan of Treatment +--------+ + + + + | Date | Type | Specialty | Care Team | Description | +--------+ + + + + | 10/31/ | Appointment | Hematology & | Onc, [address] | | | 2020 | | Oncology | [place], | | | | | | [place] [address] | | +--------+ + + + + documented as of this encounter Visit Diagnoses Not on filedocumented in this encounter"
--- OUTSIDE RECORDS SUMMARY | ~2019-08-23 | XMS | Encounter Summary ---
Demographics + + + | Address | [address] | | | [place] [address] | + + + | Home Phone [...] + | Author | [facility] | | | and [place]aden[place] | + + + | Organization | [facility] | | | and [...] | | | | | [place] [address] | | + + + + + Care Team Providers + +------+ + | Care Spring Maker Name | Role | Phone | + +------+ + | Lexie Cagle | PCP | | | ADMINISTRATIVE ASSISTANT OFFICE MANAGER | | | + +------+ + Reason for Visit + + + | Reason | Comments | + + + | Lab Results | | + + + Encounter Details +--------+ + + + + | Date | Type | Department | Care Team | Description | +--------+ + + + + | 10/29/ | Telephone | [facility] | Lexie Cagle | Lab Results | | 2019 | | MEDICINE [address] | [address] | | | | | [address] | [facility] | | | | | [place] [address] | [place] [address] | | | | | [phone] | [phone] | | | | | | | [...] [place] | | | | | | [address] | | | | | | | | +--------+---------+ + + + documented as of this encounter Visit Diagnoses Not on filedocumented in this encounter"
--- OUTSIDE RECORDS SUMMARY | ~2019-08-23 | XMS | Encounter Summary ---
Demographics + + + | Address | [address] | | | [place] [address] | + + + | Home Phone | | + + + | Preferred Language | Unknown | + + + | Marital Status | Single | + + + | Advent Affiliation | BAPTISM | + + + | Race | White | + + + | Ethnic Group | Not or | + + + Author + + + | Author | [facility] | + + + | Organization | [facility] | + + + | Address | Unknown | + + + | Phone | Unavailable | + + + Support + + +---------+ + | Name | Relationship | Address | Phone | + + +---------+ + | Theodore Marquez | ECON | Unknown | | + + +---------+ + Care Team Providers + +------+ + | Care Toll Mechanic Name | Role | Phone | + +------+ + | Jose Hameed MD | PCP | | + +------+ + Encounter Details +--------+ + + + + | Date | Type | Department | Care Team | Description | +--------+ + + + + | 01/01/ | Procedure | Diagnostic Imaging | | | | 2017 | Pass | Services at [facility] | | | | | | [address] | | | | | | [address] | | | | | | [facility] | | | | | | [place], [place] | | | | | | [address] | | | | | | [phone] | | | +--------+ + + + [...] | | | | | | [place] [address] | | +--------+ + + + + documented as of this encounter Visit Diagnoses Not on filedocumented in this encounter"
--- OUTSIDE RECORDS SUMMARY | ~2019-08-23 | XMS | Encounter Summary ---
Demographics + + + | Address | [address] | | | [place] [address] | + + + | Home Phone [...] | Author | [facility] | | | and [place]aden[place] | + + + | Organization | [facility] | | | and [...] | | | | | [place] [address] | | + + + + + Care Team Providers + +------+ + | Care Beamer Helper Name | Role | Phone | + +------+ + | Lexie Cagle | PCP | | | [facility] | | | + +------+ + Reason for Visit + + + | Reason | Comments | + + + | Medication Prior | | | Authorization | | + + + Encounter Details +--------+ + + + + | Date | Type | Department | Care Team | Description | +--------+ + + + + | 01/10/ | Telephone | [facility] | Michael Fernandes | Medication Prior | | 2019 | | [address] | MD Y[address] | Authorization | | | | [place] | [place] | | | | | [address] | [address] | | | | | [phone] | | | +--------+ + + + [...] 2019 | Visit | | [address] | | | | | | [place] | | | | | | [address] | | | | | | | | +--------+---------+ + + + documented as of this encounter Visit Diagnoses Not on filedocumented in this encounter"
--- OUTSIDE RECORDS SUMMARY | ~2019-08-23 | XMS | Encounter Summary ---
Demographics + + + | Address | [address] | | | [place] [address] | + + + | Home Phone | | + + + | Preferred Language | Unknown | + + + | Marital Status | Single | + + + | Rastafari Affiliation | CONFUCIANISM | + + + | Race | [...] Team Providers + +------+ + | Care Cabin Furnishings Installer Name | Role | Phone | + +------+ + | Rudolph Lee MD | PCP | | + +------+ + Encounter Details +--------+ + + + + | Date | Type | Department | Care Team | Description | +--------+ + + + + | 02/23/ | Discharge | | Summary, Discharge | D/C Summary ODDS | | 2002 | Summary-Tra | | | | | | nscribed | | | | +--------+ + + [...] + + documented as of this encounter Discharge Summaries Interface, Manager Stars In - 10/23/2005 3:[address] [address] [facility] MEDICAL SUMMARY OF HOSPITALIZATION Med Rec No: [id number] Admission Date: 02/20/2002 Name: Mian Marquez Discharge Date: 02/23/2002 ATTENDING PHYSICIAN: Colin Posada M.D. PRINCIPAL FINAL DIAGNOSIS: Morbid obesity. ADDITIONAL DIAGNOSES: 1. Bladder spasm. 2. Obstructive sleep apnea. 3. Hypertension. 4. Bilateral knee osteoarthritis. 5. Multiple sclerosis. 6. Gout. 7. Venous varicosities. PRINCIPAL PROCEDURE: Laparoscopic gastric bypass surgery. ADDITIONAL PROCEDURES: 1. Occupational therapy / physical therapy consultations. 2. Evaluation with a Doppler ultrasound for deep venous thrombosis (DVT) of the extremities which was negative. 3. Straight catheterization for bladder outlet obstruction and bladder spasm. 4. Use of home C-PAP for obstructive sleep apnea. 5. Nutritional teaching of bariatric diet. 6. Nurse teaching of Lovenox and B12 injections. REASON FOR ADMISSION: This is a 51-year-old gentleman who is 5' 11" tall, weighing 355 lbs. giving him a body mass index of 50. Patient was previously evaluated by Dr. Gustavo Stern of [facility] but was transferred for insurance issues. The patient notes that he has been overweight since the age of 17. The patient has had unsuccessful attempts with dieting at a variety of weight loss centers. PAST MEDICAL HISTORY: As above. PAST SURGICAL HISTORY: Open cholecystectomy in 1978 which was complicated by a pulmonary embolism. MEDICATIONS: 1. Interferon p.o. q.d. 2. Detrol p.o. q.d. 3. Ativan p.o. p.r.n. anxiety. 4. Naprosyn p.o. p.r.n. osteoarthritis. 5. C-PAP machine at night for sleep apnea. ALLERGIES: No known drug allergies. REVIEW OF SYSTEMS: Patient reports a positive history of hypertension. Patient reports a positive history of pulmonary embolism. The patient denies any gastrointestinal or genitourinary symptoms. Patient reports a history of gout. Patient denies a history of diabetes. The patient reports a history of osteoarthritis and multiple sclerosis as above. All other systems are unremarkable. FAMILY HISTORY: Noncontributory. SOCIAL HISTORY: The patient denies using tobacco or alcohol. PHYSICAL EXAMINATION: VITAL SIGNS: Stable. Temperature: Afebrile. GENERAL: No acute distress. PULMONARY: Clear to auscultation bilaterally. CARDIAC: Regular rate and rhythm, no additional heart sounds. ABDOMEN: Soft, obese, no palpable masses, no umbilical hernia. HOSPITAL COURSE: The patient underwent his surgery on February 20, 2002 without complications. The patient's postoperative course was remarkable for a period of swelling of his right lower extremity. The patient had a vascular ultrasound that demonstrated no evidence of a deep venous thrombosis (DVT). The patient's history of gout suggested a recurrence, especially confirmed by the clinical examination with a warm right knee and mild effusion. The patient was placed on colchicine IV and then transitioned to p.o. medication for this gouty attack. At the time of discharge, the patient's abdominal examination was unremarkable. The patient was tolerating a regular bariatric diet. The patient was learning successfully how to use the Lovenox and B12 injections. The patient's pain was well controlled. The patient was urinating without difficulty after having been straight catheterized two days prior to discharge for adequate urination. CONDITION ON DISCHARGE: Stable. DISPOSITION: Home. MEDICATIONS: 1. Oxycodone p.r.n. pain. 2. Lovenox subcutaneous injections for 10 days. 3. Multivitamin p.o. q.d. 4. Colchicine 0.6 mg p.o. b.i.d. 5. Indocin. DISCHARGE INSTRUCTIONS: DIET: Soft, bariatric diet. ACTIVITY: No heavy lifting for one week. Okay to shower. No driving while on pain medications. FOLLOW UP: The patient is to follow up with Dr. Colin Posada of general surgery on a Monday two weeks from discharge. Cristina Clemente M.D. Colin Posada M.D. Attending Physician [id number] P [id number] signed by Stacy, Manager Stars In at 10/23/2005 3:09 AM [facility] umented in this encounter Plan of Treatment +--------+ + + + + | Date | Type | Specialty | Care Team | Description | +--------+ + + + + | 10/31/ | Appointment | Hematology & | Onc, [address] | | | 2020 | | Oncology | [place], | | | | | | [place] [address] | | +--------+ + + + + documented as of this encounter Visit Diagnoses Not on filedocumented in this encounter
--- OUTSIDE RECORDS SUMMARY | ~2019-08-23 | XMS | Encounter Summary ---
Demographics + + + | Address | [address] | | | [place] [address] | + + + | Home Phone | | + + + | Preferred Language | Unknown | + + + | Marital Status | | + + + | Gnosticism Affiliation | Unknown | + + + | Race | Unknown | + + + | Ethnic Group | Unknown | + + + Author + + + | Author | [facility] | | | and Jadenana | + + + | Organization | [facility] | | [...] | | | | | [place] [address] | | + + + + + Care Team Providers + +------+ + | Care Supervisor Show Operations Name | Role | Phone | + +------+ + | Lexie Cagle | PCP | | | PETAL SHAPER HAND | | | + +------+ + Reason for Visit +--------+ + | Reason | Comments | +--------+ + | Other | | +--------+ + Encounter Details +--------+ + + + + | Date | Type | Department | Care Team | Description | +--------+ + + + + | 10/03/ | Telephone | [facility] | Lexie Cagle | Other | | 2019 | | MEDICINE [address] | [address] | | | | | [address] | [facility] | | | | | [place] [address] | [place] [address] | | | | | [phone] | [phone] | | | | | | | [...] 2020 | Visit | | [address] | | | | | | [place] | | | | | | [address] | | | | | | | | +--------+---------+ + + + documented as of this encounter Visit Diagnoses Not on filedocumented in this encounter"
--- OUTSIDE RECORDS SUMMARY | ~2019-08-23 | XMS | Encounter Summary ---
Demographics + + + | Address | [address] | | | [place] [address] | + + + | Home Phone | | + + + | Preferred Language | Unknown | + + + | Marital Status | | + + + | Adventism Affiliation | Unknown | + + + | Race | Unknown | + + + | Ethnic Group | Unknown | + + + Author + + + | Author | [facility] | | | and [place]aden[place] | + + + | Organization | [facility] | | [...] | | | | | [place] [address] | | + + + + + Care Team Providers + +------+ + | Care Casino Cage Manager Name | Role | Phone | [...] + + | 10/26/ | Telephone | [facility] | Lexie Cagle | Lab Results | | 2019 | | MEDICINE [address] | [address] | | | | | [address] | [facility] | | | | | [place] [address] | [place] [address] | | | | | [phone] | | | | | | | [...] 2020 | Visit | | [address] | | | | | | [place] | | | | | | [address] | | | | | | | | +--------+---------+ + + + documented as of this encounter Visit Diagnoses Not on filedocumented in this encounter"
--- OUTSIDE RECORDS SUMMARY | ~2019-08-23 | XMS | Encounter Summary ---
Demographics + + + | Address | [address] | | | [place] [address] | + + + | Home Phone | | + + + | Preferred Language | Unknown | + + + | Marital Status | | + + + | Rastafari Affiliation | Unknown | + + + | Race | Unknown | + + + | Ethnic Group | Unknown | + + + Author + + + | Author | [facility] | | | and Jaden[place] | + + + | Organization | [facility] | | | and Jadenana [...] | | | | | [place] [address] | | + + + + + Care Team Providers + +------+ + | Care Animal Care Specialist Name | Role | Phone | + +------+ + | Lexie Cagle | PCP | | | ASSOCIATE PROFESSOR OF LAW | | | + +------+ + Reason for Visit + + + | Reason | Comments | + + + | Incontinence | | + + + Encounter Details +--------+ + + + + | Date | Type | Department | Care Team | Description | +--------+ + + + + | 02/04/ | Clinical | [facility] | Colin Brown, | Urinary incontinence | | 2019 | Support | [address] | MD [address] | without sensory | | | | [place] | [place] | awareness (Primary | | | | [address] | [address] | Dx); Neurogenic | | | | [phone] | | bladder; Urge | | | | | | incontinence | +--------+ + + + + Social [...] documented as of this encounter Progress Notes Manju Mccartney RN - 02/04/2019 4:00 PM PSTLarry presents to office with external cath eters and leg bag for instruction on their use. 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 Pubic hair is trim med away from base of penis then Mian is assisted in placing a size 1 external catheter ont o penis and attaching it to leg bag. He lacks some combination man strength in his left hand and said i t'll be in a full cast in a couple weeks when he has surgery. He assures me he has the abili ty to securely apply an external catheter and attach it to the leg bag. He will let us know if he has any problems. He will apply one male condom catheter once daily for urge incontine nce. documented in this encounter Plan of Treatment +--------+---------+ + + + | Date | Type | Specialty | Care Team | Description | +--------+---------+ + + + | 11/12/ | Office | Sleep Medicine | Laith Sheffield PA | | | 2019 | Visit | | [address] | | | | | | [place] | | | | | | [address] | | | | | | | | +--------+---------+ + + + documented as of this encounter Visit Diagnoses + + | Diagnosis | + + | Urinary incontinence without sensory awareness - Primary Incontinence without sensory | | awareness | + + | Neurogenic bladder Neurogenic bladder, NOS | + + | Urge incontinence | + + documented in this encounter"
--- OUTSIDE RECORDS SUMMARY | ~2019-08-23 | XMS | Encounter Summary ---
Demographics + + + | Address | [address] | | | [place] [address] | + + + | Home Phone | | + + + | Preferred Language | Unknown | + + + | Marital Status | Single | + + + | Yarsani Affiliation | RELIGION | + + + | Race | White | + + + | Ethnic Group | Not or | + + + Author + + + | Author | [facility] | + + + | Organization | [facility] | + + + | Address | Unknown | + + + | Phone | Unavailable | + + + Support + + +---------+ + | Name | Relationship | Address | Phone | + + +---------+ + | Theodore Marquez | ECON | Unknown | | + + +---------+ + Care Team Providers + +------+ + | Care Check Cashier Name | Role | Phone | + +------+ + | Joes Hameed MD | PCP | | + +------+ + Encounter Details +--------+---------+ + + + | Date | Type | Department | Care Team | Description | +--------+---------+ + + + | 06/13/ | Office | Neurology at | Christian Maldonado MD | Multiple sclerosis | | 2017 | Visit | [facility] & | [address] | ([facility]) (Primary Dx); | | | | Healing [address] | [address] [place], | Chronic low back | | | | Ave Mailcode: CH8C | [place] [address] | pain without | | | | Center for [facility] | [phone] | sciatica, | | | | and Healing, | | unspecified back | | | | Building | | pain laterality; | | | | Floor [place], [place] | | Bradycardia with | | | | [address] | | 41-50 beats per | | | | [phone] | | minute | +--------+---------+ + + + Social History [...] + + + | Blood Pressure | 150/81 | 06/13/2016 8:34 AM | | | | | PDT | | + + + + + | Pulse | 46 | 06/13/2016 8:34 AM | | | | | PDT | | + + + + + | Temperature | 36.4 C (97.6 F) | 06/13/2016 8:34 AM | | | | | [...] + + + + | Weight | 94.8 kg (209 lb) | 06/13/2016 8:34 AM | | | | | PDT | | + + + + + | Height | - | - | | + + + + + | Body Mass Index | 29.99 | 09/25/2015 9:58 AM | | | | | PDT | | + + + + + documented in this encounter Patient Instructions Patient Instructions Christian Maldonado MD - 06/13/2016 8:30 AM PDTMonitor pulse. If remains low please contact your PCP to discuss further. Your pulse is normally around 80 and today it was 42. Things that can cause low pulse include medications, heart conduction problems which may re quire additional treatment, or or athletes may have a low resting blood pressureElectronical ly signed by Christian Maldonado MD at 06/13/2016 9:13 AM PDT documented in this encounter Progress Notes Christian Maldonado MD - 06/13/2016 8:30 AM PDT [facility] Medical Problems 1. Multiple sclerosis Avonex [id number] (treatment for 2 years) Rebif for 2.5 [...] with shanell singh and non- rechargeable battery ([employer] stimulator). 9. CHRISTNE INTERVAL HISTORY: Mr. Marquez RTC for follow up. He denies any new MS symptoms. He does re port he had some increased back pain last evening and took a oxycodone tablet last evening. He reports that he discussed neuropsych testing with his psychiatrist who did not feel he n eeded follow up testing at this time. He has not been scheduled for this testing which we d iscussed at his last visit. states that he was told his cognitive problems were p robably related to his depression. He asks about new DMT's. I explained to him that ocrelizumab was still in FDA review. Current Outpatient Prescriptions Medication Sig cholecalciferol, vitamin D3, 50,000 unit oral tablet Take 50,000 Units by mouth every s even days. Indications: VITAMIN D DEFICIENCY (HIGH DOSE THERAPY) (Patient not taking: Report ed on 06/13/2016) cyanocobalamin 1,000 mcg/mL injection solution Inject into [...] Adhesive tape Physical Examination: Vital Signs: BP 150/81 | Pulse 46 | Temp (Src) 36.4 C (97.6 F) (Oral) | Wt 94.8 kg (209 lb) | BMI 29.99 kg/(m^2) General: He is no apparent physical [...] all 4 extremities. Cerebellar testing shows slowed nalavf-ll-qavq. Ga it: Antalgic casual gait, very difficult to tandem walk as he had to reach out for support. Walks 25 feet in 6.06 sec. Impression: 1. Multiple sclerosis 2. Depression. 3. Hx Benito-en-Y with hx of B12 deficiency. 4. Vitamin D deficiency. 5. Complaints of worsening cognitive function. 6. Fatigue 7. Low back pain 8. bradycardia His MS is stable today. Will continue his Vitamin D supplements and gabapentin. We discus sed his pulse rate today which was significantly lower than previously noted. I recommended he discuss this further with his PCP if pulse remains slow. We did discuss possible causes for bradycardia. Plan: 1. RTC in 3 months. 2. Continue current medications documented in this enco unter Plan of Treatment +--------+ + + + + | Date | Type | Specialty | Care Team | Description | +--------+ + + + + | 10/31/ | Appointment | Hematology & | Onc, Gen [address] | | | 2020 | | Oncology | [place], | | | | | | [place] [address] | | +--------+ + + + + documented as of this encounter Visit Diagnoses + + | Diagnosis | + + | Multiple sclerosis (HCC) - Primary Multiple sclerosis | + + | Chronic low back pain without sciatica, unspecified back pain laterality | + + | Bradycardia with 41-50 beats per minute | + + documented in this encounter"
--- OUTSIDE RECORDS SUMMARY | ~2019-08-23 | XMS | Encounter Summary ---
Demographics + + + | Address | [address] | | | [place] [address] | + + + | Home Phone [...] + + | Author | [facility] | | | and Jadenana | + + + | Organization | [facility] [...] | | | | | [place] [address] | | + + + + + Care Team Providers + +------+ + | Care Correctional Officer Captain Name | Role | Phone | + +------+ + | Lexie Cagle | PCP | | | AGRONOMIST | | | + +------+ + Reason for Visit + + + | Reason | Comments | + + + | Medication Refill | | + + + Encounter Details +--------+--------+ + + + | Date | Type | Department | Care Team | Description | +--------+--------+ + + + | 11/14/ | Refill | [facility] | Lexie Cagle | Medication Refill | | 2019 | | [facility] [address] | [address] | | | | | [facility] | [facility] | | | | | [place] [address] | [place] [address] | | | | | [phone] | [phone] | | | | | | | [...] 2019 | Visit | | [address] | | | | | | [place] | | | | | | [address] | | | | | | | [...]
--- OUTSIDE RECORDS SUMMARY | ~2019-08-23 | XMS | Encounter Summary ---
Demographics + + + | Address | [address] | | | [place] [address] | + + + | Home Phone | | + + + | Preferred Language | Unknown | + + + | Marital Status | | + + + | Alevism Affiliation | Unknown | + + + | Race | Unknown | + + + | Ethnic Group | Unknown | + + + Author + + + | Author | [facility] | | | and Jadenana | + + + | Organization | [facility] | | [...] | | | | | [place] [address] | | + + + + + Care Team Providers + +------+ + | Care Watcher Automat Long Goods Name | Role | Phone | + +------+ + | Lexie Cagle | PCP | | | BUFFER INFLATED PAD | | | + +------+ + Reason for Visit + + + | Reason | Comments | + + + | Lab Results | | + + + Encounter Details +--------+ + + + + | Date | Type | Department | Care Team | Description | +--------+ + + + + | 11/27/ | Telephone | [facility] | Lexie Cagle | Lab Results | | 2019 | | MEDICINE [address] | [address] | | | | | Street [address] | [address] | | | | | [place] [address] | [place] [address] | | | | | [phone] | [phone] | | | | | | | [...] [place] | | | | | | [address] | | | | | | | | +--------+---------+ + + + documented as of this encounter Visit Diagnoses Not on filedocumented in this encounter"
--- OUTSIDE RECORDS SUMMARY | ~2019-08-23 | XMS | Encounter Summary ---
Demographics + + + | Address | [address] | | | [place] [address] | + + + | Home Phone | | + + + | Preferred Language | Unknown | + + + | Marital Status | Single | + + + | Mandaeism Affiliation | YAZDANISM | + + + | Race | [...] Team Providers + +------+ + | Care Bit Setter Name | Role | Phone | + [...] | | | Epic Dept | Center [facility] | | | | | | | [address] | | | | | | | [address] | | | | | | | Mailcode: | | | | | | | [facility] | | | | | | | for Health | | | | | | | and Healing, | | | | | | | Building [address], | | | | | | | 8th Floor | | | | | | | [place], [place] | | | | | | | [address] | | | | | | | Phone: | | | | | | | [phone] | | | | | | | Fax: | | | | | | | [phone] | +--------+--------+ + + + + Encounter Details +--------+---------+ + + + | Date | Type | Department | Care Team | Description | +--------+---------+ + + + | 12/21/ | Office | Neurology at | Christian Maldonado MD | Multiple sclerosis | | 2017 | Visit | [facility] & | [address] | ([facility]) (Primary Dx); | | | | Healing [address] | [place], | Neurogenic bladder | | | | [place] Mailcode: CH8C | [place] [address] | | | | | [facility] | [phone] | | | | | and Healing, | | | | | | [facility] | | | | | | Floor [place], [place] | | | | | | [address] | | | | | | [phone] | | | +--------+---------+ + + + [...] + + + | Blood Pressure | 137/75 | 12/21/2016 8:50 AM | | | | | PDT | | + + + + + | Pulse | 63 | 12/21/2016 8:50 AM | | | | | PDT [...] + + + + | Weight | 91.6 kg (202 lb) | 12/21/2016 8:50 AM | | | | | PDT | | + + + + + | Height | - | - | | + + + + + | Body Mass Index | 28.98 | 10/31/2016 3:28 PM | | | | | PDT | | + + + + + documented in this encounter Progress Notes Christian Maldonado MD - 12/21/2016 9:10 AM PDT [facility]IPLE [facility]EROSIS [facility] Medical Problems 1. Multiple sclerosis Avonex [id number] (treatment for 2 years) Rebif for 2.5 years; discontinued for disease activity Tysabri 2004- 2008; discontinued for positive SARAH virus Ab Tecfidera for a couple months; discontinued secondary to side effects Copaxone 2013 - November 2015 Ocrevus 11/2016 2. Hx of B12 deficiency 3. Neurogenic Bladder 4. GERD 5. Hx of Benito-en-Y for morbid obesity 6. Depression 7. S/P lumbar surgery for radiculopathy. 8. Chronic back pain with placement of spinal stimulator, 2011, replaced with paddles and non- rechargeable battery ([employer] stimulator) in spring 2016. 9. CHRISTEN INTERVAL HISTORY: Mr. Marquez RTC for follow up. He reports he is having increased difficul ties with his bladder function. He has received Botox for his neurogenic bladder but report s continued leakage. Botox injection was performed by Dr. Nix. Due to continued problem s was referred to Dr. Olivier. Dr. Olivier was unable to identify a medical or surgical solut ion after review of urodynamics, testing and having Mr. Marquez keep a voiding diary. He has received his first course of Ocrevus and reports not difficulties with the infusions . He continues to follow with psychiatry. Recently started on Effexor. He ruvalcaba repot some im provement in his fatigue with Provigil. Current Outpatient Prescriptions Medication Sig Cholecalciferol, Vitamin D3, (VITAMIN D3) 5,000 unit oral tablet Take 5,000 Units by [facility] once daily. cyanocobalamin 1,000 mcg/mL injection solution Inject into the muscle (IM). gabapentin 300 mg oral capsule Take 1 capsule by mouth three times daily. Indications: NEUROPATHIC PAIN iron sucrose 100 mg iron/5 mL intravenous solution Every other month modafinil 200 mg oral tablet Take 1 [...] by mouth once daily at bedtime. venlafaxine 37.5 mg oral tablet Take 1 tablet by mouth once daily. Take 37.5mg (1 pill) every day for 1 week THEN increase to 75mg (2 pills) daily Indications: major depressive d isorder No current facility-administered medications for this visit. [...] Adhesive tape Physical Examination: Vital Signs: BP 137/75 | Pulse 63 | Wt 91.6 kg (202 lb) | BMI 28.98 kg/(m^2) General: He is no apparent physical [...] light touch although decreased in the right side compared to left. Vibratory sensation i n decrease distally, all 4 extremities. Temp sensation decreased on R. Cerebellar testing shows slowed hfkrpn-cd-ueae. Gait: Antalgic casual gait, very difficult to tandem walk as he had to reach out for support. Walks 25 feet in 7.12 sec. Timed Walk (25'): 7.12 (12/21/16 0851) Impression: 1. Multiple sclerosis 2. Depression. 3. Hx Benito-en-Y with hx of B12 deficiency. 4. Vitamin D deficiency. 5. Complaints of worsening cognitive function. 6. Fatigue 7. Low back pain His MS is stable today. Will continue treatment with Provigil for fatigue. He will contin ue follow up with psych. I recommended he discuss further treatment options for his bladder dysfunction with his urologist. Plan: 1. RTC in 3 months. 2. Continue current medications. 3. Recommended he discuss his ongoing urological complaints with his urologist. documented in this enco unter Plan of Treatment +--------+ + + + + | Date | Type | Specialty | Care Team | Description | +--------+ + + + + | 10/31/ | Appointment | Hematology & | Onc, Gen [address] | | | 2020 | | Oncology | [address] [place], | | | | | | [place] [address] | | +--------+ + + + + documented as of this encounter Visit Diagnoses + + | Diagnosis | + + | Multiple sclerosis (HCC) - Primary Multiple sclerosis | + + | Neurogenic bladder Neurogenic bladder, NOS | + + documented in this encounter"
--- OUTSIDE RECORDS SUMMARY | ~2019-08-23 | XMS | Encounter Summary ---
Demographics + + + | Address | [address] | | | [place] [address] | + + + | Home Phone | | + + + | Preferred Language | Unknown | + + + | Marital Status | Single | + + + | Buddhist Affiliation | CHRISTIAN | + + + | Race | White | + + + | Ethnic Group | Not or | + + + Author + + + | Author | [facility] | + + + | Organization | [facility] | + + + | Address | Unknown | + + + | Phone | Unavailable | + + + Support + + +---------+ + | Name | Relationship | Address | Phone | + + +---------+ + | Theodore Marquez | ECON | Unknown | | + + +---------+ + Care Team Providers + +------+ + | Care Supervisor Functional Testing Name | Role | Phone | + +------+ + | Jose Hameed MD | PCP | | + +------+ + Encounter Details +--------+ + + + + | Date | Type | Department | Care Team | Description | +--------+ + + + + | 02/01/ | Document-Sc | Health Information | Unknown . | | | 2002 | anned | Services [address] | | | | | | [address] | | | | | | Mailcode: OP17A | | | | | | [facility] | | | | | | [place], [place] | | | | | | [address] | | | | | | [phone] | | | +--------+ + + + [...] | | | | | | [place] [address] | | +--------+ + + + + documented as of this encounter Visit Diagnoses Not on filedocumented in this encounter"
--- OUTSIDE RECORDS SUMMARY | ~2019-08-23 | XMS | Encounter Summary ---
Demographics + + + | Address | [address] | | | [place] [address] | + + + | Home Phone | | + + + | Preferred Language | Unknown | + + + | Marital Status | | + + + | Spiritism Affiliation | Unknown | + + + | Race | Unknown | + + + | Ethnic Group | Unknown | + + + Author + + + | Author | [facility] | | | and Jadenana | + + + | Organization | [facility] | [...] | | | | | [place] [address] | | + + + + + Care Team Providers + +------+ + | Care School Lunch Monitor Name | Role | Phone | + +------+ + | Lexie Cagle | PCP | | | PRODUCE CLERK | | | + +------+ + Encounter Details +--------+ + + + + | Date | Type | Department | Care Team | Description | +--------+ + + + + | 12/14/ | Anti-coag | [facility] | CagleLexie hankins | | | 2019 | Telephone | MEDICINE [address] | [address] | | | | | [address] [place] | [address] [place] | | | | | [place] [address] | [place] [address] | | | | | [phone] | [phone] | | | | | | | [...] + documented as of this encounter Progress Lexie Jones APRN - 12/14/2018 11:22 AM PDTRemain on current dose of warfarin and recheck in 3 weeks 1 1:50 AM Ibis Alexander RN - 12/14/2018 11:22 AM PDTReceived INR of 2.0 today. Spoke with patient and advised to continue same Warfarin dose (5 mg 5 days a week and 7.5 m g on Mon and Mon.) and to recheck INR 01/04/19. Verbalizes understanding. documented in this encounter Plan of Treatment [...] [place] | | | | | | [address] | | | | | | | | +--------+---------+ + + + documented as of this encounter Visit Diagnoses Not on filedocumented in this encounter"
--- OUTSIDE RECORDS SUMMARY | ~2019-08-23 | XMS | Clinical Summary ---
Demographics + + + | Address | [address] [facility] [address] | | | [place] [address] | + + + | Home Phone [...] | [facility] | | | and Jadenana | + + + | Organization | [facility] | | | [...] | | | | | [place] [address] | | + + + + + Care Team Providers + +------+ + | Care Jailer/Training Officer Name | Role | Phone | + +------+ + | Shmuel Merrill | | + +------+ + Allergies + + + + + + | Active Allergy | Reactions | Severity | Noted | Comments | | | | | Date | | + + + + + + | Adhesive & Tape | Rash, Other (See | Low | 03/10/20 | Paper tape OK | | | Comments) | | 14 | | + + + + + + Medications + + + +---------+------+------+-------+ | Medication | Sig | Dispensed | Refills | Star | End | Statu | | | | | | t | Date | s | | | | | | Date | | | + + + +---------+------+------+-------+ | cholecalciferol | Take 2,000 Units by | | 0 | | | Activ | | (VITAMIN D3) 50 mcg | mouth. | | | | | e | | (2,000 units) | | | | | | | | capsule | | | | | | | + + + +---------+------+------+-------+ | Blood Glucose | 1 kit by Does not | 1 each | 0 | 09/0 | | Activ | | Monitoring Suppl | apply route Daily. | | | 09/13 | | e | | KITIndications: | Daily and as needed | | | 19 | | | | Hypoglycemia | as directed by | | | | | | | | provider | | | | | | + + + +---------+------+------+-------+ | UNKNOWN TO PATIENT | Inject into the | | 0 | | | Activ | | | vein. Infusion for | | | | | e | | | MS Twice a year | | | | | | | | (patient doesn't | | | | | | | | know name) | | | | | | + + + +---------+------+------+-------+ | sodium chloride | Inject into the | | 0 | | | Activ | | 0.9% QS Base with | vein. | | | | | e | | ocrelizumab 30 mg/mL | | | | | | | | SOLN | | | | | | | + + + +---------+------+------+-------+ | warfarin | Take 2 tablets by | 60 | 0 | 01/25 | | Activ | | (COUMADIN) 5 mg | mouth Daily. | tablet | | 04/15 | | e | | tablet | | | | 19 | | | + + + +---------+------+------+-------+ | rOPINIRole | Take 1 tablet by | 90 | 1 | 01/25 | | Activ | | (REQUIP) 2 MG | mouth nightly. | tablet | | 07/14 | | e | | tabletIndications: | | | | 19 | | | | RLS (restless legs | | | | | | | | syndrome) | | | | | | | + + + +---------+------+------+-------+ +---+ + | | Additional | | | InformationPatient | | | taking differently: | | | 3 mg Oral NIGHTLY, | | | Reported on | | | 06/05/2019 10:20 AM | +---+ + + + +---+---+------+---+-------+ | | | | 0 | 01/2 | | Activ | | oxyCODONE-acetaminop | | | | 1/20 | | e | | hen (PERCOCET) 5-325 | | | | 20 | | | | mg per tablet | | | | | | | + + +---+---+------+---+-------+ | | | | 0 | 01/2 | | Activ | | HYDROcodone-acetamin | | | | 8/20 | | e | | ophen (NORCO) 5-325 | | | | 20 | | | | mg per tablet | | | | | | | + + +---+---+------+---+-------+ | traZODone | Take 100 mg by mouth | | 0 | | | Activ | | (DESYREL) 100 mg | nightly. | | | | | e | | tablet | | | | | | | + + +---+---+------+---+-------+ | modafinil | Daily. | | 0 | | | Activ | | (PROVIGIL) 200 mg | | | | | | e | | tablet | | | | | | | + + +---+---+------+---+-------+ | UNABLE TO FIND | Med Name: Resmed | | 0 | | | Activ | | | AirSense 10 autoset | | | | | e | | | CPAP: 4-15cm | | | | | | + + +---+---+------+---+-------+ Active Problems + + + | Problem | Noted Date | + + + | Congestive heart failure | 05/01/2019 | + + + | Gout | 05/01/2019 | + + + | Pneumonia | 05/01/2019 | + + + | Pulmonary embolism | 05/01/2019 | + + + | Right flank pain | 12/24/2018 | + + + + + | Overview: Added automatically from request for surgery | | [id number] | + + + + + | Osteoarthritis of both knees | 07/04/2018 | + + + | Scapholunate dissociation of left wrist | 12/21/2017 | + + + + + | Overview: Overview: | | Added automatically from request for surgery [id number] | + + + + + | Paroxysmal atrial fibrillation | 09/18/2017 | + + + + + | Overview: Overview: Onset 08/2017Ris assessment: | | [id number] = 1; 08/2017Unaffordable treatment: Eliquis | | (fatigue)Past treatment: metoprolol for rate controlCurrent | | treatment:--rate control: No rx--stroke prevention meds: | | Warfarin--rhythm control:Followed by cardiologyHistory of Present | | Illness (12/07/2017)Pt is being transition from Eliquis to | | Warfarin. Pt states today the reason is cost.Last Assessment & | | Plan: Referral sent to ACCOverview: Onset 08/2017Ris assessment: | | [id number] = 1; 08/2017Unaffordable treatment: Eliquis | | [...] |Overview: | |Onset 08/2017 | |Risk assessment: [id number] = 1; 08/2017 | |Unaffordable treatment: Eliquis [...] 01/26/2017 | + + + | Recurrent urinary tract infection | 01/26/2017 | + + + + + | Overview: Overview: | | | | History of Present Illness (01/26/2017) | | Recent pyelonephritis. | | +neurogenic bladder from MS requiring self-cath | | +fatigue currently but no fever | | | | Last Assessment & Plan: | | R/O recurrent UTI | + + + + + | [...] | bariatric surg x 2 (Benito-en-Y in 2002 in [place]; lap band in 2012 | | in [place], [place]; Dr. Fountain)History of Present | | [...] bypassCurrent | | treatment: B12 injections at [facility] once a month | |Etiology: Gastric bypass | |Current treatment: B12 injections at [facility] once a month | + + + + + | Intertriginous candidiasis | 07/03/2014 | + + + | LAP-BAND surgery status | 07/03/2014 | + + + | Color blindness, 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 | + + + | Senile nuclear sclerosis | 04/08/2014 | + + + | Calculus of [...] | starting 1999Surveillance DEXA t-score (-) 2.8; 08/20159/ | | (PCP OV Note)History of Present [...] Done x 2 (Benito-en-Y in 2001 in [facility]; and | | lap band in 2013 in [place], [place]; | | Essie)Complications: dumping syndromeCurrent treatment: | | B12 injection and iron infusion q2 mo'sFollow[facility] Dr[facility]: | | | |Last [...] + + + + | History of gastric bypass | 12/23/2013 | + + + | Multiple sclerosis | 12/11/2013 | + + + + + | Overview: Overview: Chronic; dx'ed in 2004Complications: | | fatigue, GI side effects, neurogenic bladder, RLSPast MS | | treatment: --Avonex 0637-5506 (treatment for 2 years)--Rebif for | | [...] 1976 following a surgery. | + + + +---+ | Depression | | + +---+ Resolved Problems + + + + | Problem | Noted | Resolved | | | Date | Date | + + + + | Acute cystitis without hematuria | 11/11/19 | | | | 18 | 0 | + + + + + + | Overview: Overview: | | 11/10/2017 UTI: strep agalacticae | | PCN started | + + + + + + | Bradycardia | [...] 9 | + + + + | Macrocytosis | 10/06/19 | | | | 16 | 9 | + + + + + + | Overview: Overview: | | Chronic | | Evaluation: Nl folate; B12; no alcohol | + + + + + + | GERD (gastroesophageal reflux disease) | 07/04/19 | | | | 15 | 9 | + + + + | Influenza | 03/12/20 | | | | 14 | 9 | + + + + | Fever | 03/10/20 | | | | 14 | 9 | + + + + | Pulmonary embolism and infarction | 03/10/20 | | | | 14 | 9 | + + + + + + | Overview: Overview: | | Overview: | | 1979 | + + Encounters +--------+ + + + + | Date | Type | Specialty | Care Team | Description | +--------+ + + + + | 08/07/ | Office | Sleep Medicine | Laith Sheffield PA | CHRISTEN on CPAP (Primary | | 2020 | Visit | | | Dx) | +--------+ + + + + | 06/26/ | Virtual | Sleep Medicine | Abdoulaye Bauer | CHRISTEN (obstructive | | 2019 | Office | | MD Clif | sleep apnea) | | | Visit | | | (Primary Dx); RLS | | | | | | (restless legs | | | | | | syndrome); Organic | | | | | | insomnia | +--------+ + + + + | 06/19/ | Hospital | Sleep Medicine | Abdoulaye Bauer | CHRISTEN (obstructive | | 2019 - | Encounter | | MD Clif | sleep apnea) | | | | | | | | 06/20/ | | | | | | 2019 | | | | | +--------+ + + + + | 06/18/ | Telephone | Internal Medicine | Shmuel Merrill | Georges | | 2019 | | | | | +--------+ + + + + | 06/17/ | Documentati | Sleep Medicine | Abdoulaye Bauer | | | 2019 | on | | MD Clif | | +--------+ + + + + | 06/12/ | Imaging | Radiology | Provider, | | | 2019 | Exam | | MD Elena | | +--------+ + + + + | 06/04/ | Office | Sleep Medicine | Abdoulaye Bauer | CHRISTEN (obstructive | | 2019 | Visit | | MD Clif | sleep apnea) | | | | | | (Primary Dx); RLS | | | | | | (restless legs | | | | | | syndrome); Low | | | | | | ferritin; | | | | | | Psychophysiologic | | | | | | insomnia; | | | | | | Depression, | | | | | | unspecified | | | | | | depression type | +--------+ + + + + from Last 3 Months Immunizations + + + + | Name | Administration Dates | Next Due | + + + [...] + + + Family History + + +--------+ + | Medical History | Relation | Name | Comments | + + +--------+ + | Cancer | Brother | | | + + +--------+ + | No known problems | Daughter | Triny | | | | | Wilfred | | + + +--------+ + | Cancer | Father | | bone cancer | + + +--------+ + | No known problems | Maternal | | | | | Grandfath | | | | | er | | | + + +--------+ + | No known problems | Maternal | | | | | Grandmoth | | | | | er | | | + + +--------+ + | Lung cancer | Mother | | | + + +--------+ + | Tobacco Use | Mother | | | + + +--------+ + | No known problems | Paternal | | | | | Grandfath | | | | | er | | | + + +--------+ + | No known problems | Paternal | | | | | Grandmoth | | | | | er | | | + + +--------+ + | Prostate cancer | Neg Hx | | | + + +--------+ + + +--------+ + + | Relation | Name | Status | Comments | + +--------+ + + | Brother | | Alive | | + +--------+ + + | Brother | | Alive | | + +--------+ + + | Daughter | Triny | Alive | | | | Wilfred | | | + +--------+ + + | Father | | | | | | | (Age | | | | | 91) | | + +--------+ + + | Maternal Grandfather | | | | + +--------+ + + | Maternal Grandmother | | | | + +--------+ + + | Mother | | | | | | | (Age | | | | | 65) | | + +--------+ + + | Paternal Grandfather | | | | + +--------+ + + | Paternal Grandmother | | | | + +--------+ + + Social History + +-------+ +--------+------+ [...] recent travel history available. | + + Last Filed Vital Signs + + + + + | Vital Sign | Reading | Time Taken | Comments | + + + + + | Blood Pressure | 140/80 | 08/08/2019 10:49 AM | | | | | PDT | | + + + + + | Pulse | 90 | 08/08/2019 10:49 AM | | | | | PDT | | + + + + + | Temperature | 36.6 C (97.9 F) | 01/21/2019 10:03 AM | | | | | PDT | | + + + + + | Respiratory Rate | 16 | 08/08/2019 10:49 AM | | | | | PDT | | + + + + + | Oxygen Saturation | 90% | 08/08/2019 10:49 AM | | | | | PDT | | + + + + + | Inhaled Oxygen | - | - | | | Concentration | | | | + + + + + | Weight | 95.5 kg (210 lb 8.6 | 08/08/2019 10:49 AM | | | | oz) | PDT | | + + + + + | Height | 175.3 cm (5' 9") | 06/05/2019 10:20 AM | | | | | PDT | | + + + + + | Body Mass Index | 31.09 | 06/05/2019 10:20 AM | | | | | PDT | | + + + + + Plan of Treatment +--------+---------+ + + + | Date | Type | Specialty | Care Team | Description | +--------+---------+ + + + | 11/12/ | Office | Sleep Medicine | Laith Sheffield PA | | | 2019 | Visit | | [address] | | | | | | [place] | | | | | | [address] | | | | | | | | +--------+---------+ + + + + + + + + | Health Maintenance | Due Date | Last Done | Comments | + + + + + | Vaccine: | | | | | Dtap/Tdap/Td (1 - | 3 | | | | Tdap) | | | | + + + + + | Vaccine: Zoster (1 | | | | | of 2) | 2 | | | + + + + + | Adult Annual | | | | | Wellness Visit | 9 | | | + + + + + | Statin Therapy | | | | | (optimal intensity) | 9 | | | + + + + + | Vaccine: Influenza | | 03/27/2017, 01/26/2017, | | | (Season Ended) | 0 | 12/26/2015, Additional history | | | | | exists | | + + + + + | Vaccine: | | 06/29/2017, 12/26/2015, | | | Pneumococcal 65+ (2 | 1 | 09/01/2015, Additional history | | | of 2 - PPSV23) | | exists | | + + + + + | Colorectal Cancer | | 03/27/2017, 07/20/2016 | | | Screening | 8 | | | | (Colonoscopy) | | | | + + + + + | Hepatitis C | Completed | 07/22/2014 | | | Screening | | | | + + + + + Implants + +--------+--------+ +--------+--------+--------+ | Implanted | Type | Area | Manufacture | Device | Shelf | Model | | | | | r | | Expira | / | | | | | | Identi | tion | Serial | | | | | | fier | Date | / Lot | + +--------+--------+ +--------+--------+--------+ | Imp Uros Macroplastiqe - | Generi | N/A: | UROPLASTY | | 04/23/ | MPQ-2. | | Sn/AImplanted: Qty: 1 on | c | Bladde | INC - URPS | | 2020 | 5 /N/A | | 04/19/2018 by Dom, | | r | | | | | | Michael Tidwell MD at [facility] | | | | | | /[id number] | | [facility] | | | | | | [facility] | | [facility] | | | | | | | + +--------+--------+ +--------+--------+--------+ | Stent Uret W/Pstnr Frm 6 | Stent | Right: | COOK | | 11/15/ | [id number] | | - [id number]: | | | [employer]ICAL [employer] | | 2021 | / | | Qty: 1 on 01/03/2019 by | | Ureter | - KEIKO | | | /[id number] | | Michael Fernandes MD at | | | | | | 44 | | [facility] | | | | | | | | [facility] | | | | | | | + +--------+--------+ +--------+--------+--------+ Procedures + +--------+ + + + | Procedure Name | Priori | Date/Time | Associated Diagnosis | Comments | | | ty | | | | + +--------+ + + + | SLEEP STUDY HOME | Routin | 06/20/2019 | | Results for this | | SLEEP TEST | e | 3:00 PM | | procedure are in the | | | | PDT | | results section. | + +--------+ + + + | SLEEP STUDY HOME | Routin | 06/20/2019 | | Results for this | | SLEEP TEST | e | 3:00 PM | | procedure are in the | | | | PDT | | results section. | + +--------+ + + + | FERRITIN | Routin | 06/05/2019 | Low ferritin | Results for this | | | e | 11:54 AM | | procedure are in the | | | | PDT | | results section. | + +--------+ + + + | CT ABDOMEN PELVIS WO | Routin | 05/30/2019 | | Results for this | | CONTRAST | e | 12:00 AM | | procedure are in the | | | | PST | | results section. | + +--------+ + + + from Last 3 Months Results Sleep study home sleep test (06/20/2019 3:00 PM PDT) + + + | Narrative | Performed At | + + + | Abdoulaye Lima | | | Juancarlos Menezes MD 06/21/2019 1:18 PM [facility] | | | [place] [address] | | | Unattended, Multiparameter, Sleep Apnea Test (WATCH-PAT) for Mian | | | Jimmy performed on June 20, 2019. Identifying Information: Mian | | | Jimmy is a 69 y.o. male who is referred for unattended, | | | multi-parameter, sleep apnea test because of probable Obstructive | | | Sleep Apnea. Technical Information: The study was performed using the | | | WatchPat technology (C$ cMoney). This monitors referral | | | arterial tone (PAT) signal which is a proprietary signal acting as a | | | surrogate for sympathetic nervous system activation. Heart rate, | | | oxygen saturation, actigraphy, snoring, and body position are | | | monitored. Using a proprietary algorithms, sleep disordered | | | breathing parameters equivalent to an the Apnea Hypopnea Index and JAIME | | | aare determined. A reasonable assessment of sleep architecture | | | using a proprietary algorithm, is also be determined. Sensitivity | | | and specificity for the detection of sleep disordered breathing is in | | | the 90% range. Definitions: pRDI: All detected respiratory events | | | divided by sleep time. pAHI: Detected respiratory events which | | | occasion oxygen desaturation of 4% or greater divided by total sleep | | | time. PAHIc: Detected central apneas which occasion oxygen | | | desaturation of 4% or greater divided by the total sleep time. JAIME: | | | All oxygen desaturations of 4% or greater divided by total sleep time. | | | Results: The study started at 2206 on June 20, 2019 and the study | | | ended at 0545 on June 21, 2019. Of the 7 hours and 38 minutes of | | | study time it is estimated that the patient slept for hours and 21 | | | minutes. The pRDI was elevated at 15.4; the pAHI was elevated at 14.1, | | | and the pODI was elevated at 14.1, the pAHIc normal at 0.2. The jose | | | oxygen desaturation was 79% and the patient 17 minutes with an oxygen | | | saturation of less than or equal to 88%. The mean pulse rate was 56 | | | beats per minute. The events were significantly positional (the events | | | were primarily seen in the supine position (supine pAHI was 39.9 and | | | the nonsupine pAHI was 0.5). Snoring was noted throughout the evening. | | | Interpretation:Obstructive sleep apnea is diagnosed and this is | | | associated with significant oxygen desaturation. Suggestions:Treatment | | | of Obstructive Sleep Apnea is advised. Abdoulaye Bauer Jr., MD, | | | FAASMMedical DirectorPinnacle Pointe Hospital Sleep Disorders | | | [employer]Pro[employer]ates, WAClinical | | | Senior Ter[employer] Developer of MedicineJones, [place] | | |elevated at 14.1, and the pODI was elevated at 14.1, the pAHIc | | |normal at 0.2. The jose oxygen desaturation was 79% and the | | |patient 17 minutes with an oxygen saturation of less than or | | |equal to 88%. The mean pulse rate was 56 beats per minute. The | | |events were significantly positional (the events were primarily | | |seen in the supine position (supine pAHI was 39.9 and the | | |nonsupine pAHI was 0.5). Snoring was noted throughout the | | |evening. | | | | | |Interpretation: | | |Obstructive sleep apnea is diagnosed and this is associated with | | |significant oxygen desaturation. | | | | | |Suggestions: | | |Treatment of Obstructive Sleep Apnea is advised. | | | | | | | | |Abdoulaye Bauer Jr., MD, [facility] | | |Gamma Facilities Operator | | |[facility] | | |[facility] | | |PRE[place] | | |Clinical cash application clerk | | |[facility] | | |[place], [place] | | + + + + + | Procedure Note | + + | Abdoulaye Bauer Jr., MD - 06/20/2019 3:00 PM PDT [facility] | | Disorders [place], [place] [id number], | | Multiparameter, Sleep Apnea Test (WATCH-PAT) for Mian Marquez performed on June 19 | | 2019.Identifying Information: Mian Marquez is a 69 y.o. male who is referred for | | unattended, multi-parameter, sleep apnea test because of probable Obstructive Sleep | | Apnea.Technical Information: The study was performed using the ZoomSystemsPat technology | | (C$ cMoney). This monitors referral arterial tone (PAT) signal which is a | | proprietary signal acting as a surrogate for sympathetic nervous system activation. | | Heart rate, oxygen saturation, actigraphy, snoring, and body position are monitored. | | Using a proprietary algorithms, sleep disordered breathing parameters equivalent to an | | the Apnea Hypopnea Index and JAIME aare determined. A reasonable assessment of sleep | | architecture using a proprietary algorithm, is also be determined. Sensitivity and | | specificity for the detection of sleep disordered breathing is in the 90% | | range.Definitions: pRDI: All detected respiratory events divided by sleep time. pAHI: | | Detected respiratory events which occasion oxygen desaturation of 4% or greater divided | | by total sleep time. PAHIc: Detected central apneas which occasion oxygen desaturation | | of 4% or greater divided by the total sleep time. JAIME: All oxygen desaturations of 4% or | | greater divided by total sleep time.Results: The study started at 2206 on June 19 | | 2019 and the study ended at 0545 on June 21, 2019. Of the 7 hours and 38 minutes of | | study time it is estimated that the patient slept for hours and 21 minutes. The pRDI was | | elevated at 15.4; the pAHI was elevated at 14.1, and the pODI was elevated at 14.1, the | | pAHIc normal at 0.2. The jose oxygen desaturation was 79% and the patient 17 minutes | | with an oxygen saturation of less than or equal to 88%. The mean pulse rate was 56 beats | | per minute. The events were significantly positional (the events were primarily seen in | | the supine position (supine pAHI was 39.9 and the nonsupine pAHI was 0.5). Snoring was | | noted throughout the evening.Interpretation:Obstructive sleep apnea is diagnosed and | | this is associated with significant oxygen desaturation.Suggestions:Treatment of | | Obstructive Sleep Apnea is advised.Abdoulaye Bauer Jr., MD, [facility] | | DirectorPinnacle Pointe [facility] Sleep Disorders [facility] | | [employer] Senior Teradata Developer of MedicineHighland Ridge Hospital | | [place], [place] | |Abdoulaye Bauer Jr., MD, [facility] | |Gamma Facilities Operator | |[facility] [place] | |[facility] | |[place], [place] | |Clinical cash application clerk | |[facility] | |[place], [place] | + + Ferritin (06/05/2019 11:54 AM PDT) + +---------+ + + + | Component | Value | Ref Range | Performed | Pathologist | | | | | At | Signature | + +---------+ + + + | FERRITIN | 356 (H) | 11 - 307 ng/mL | [facility] | | | | | | [facility] | | | | | | MEDICAL [...] [address] | [place] | [phone] | | [facility] | | [id number] | | | - LABORATORY | | | | + + + + + CT Abdomen Pelvis wo Contrast (05/30/2019 12:00 AM PST) + + | Specimen | + + | | + + + + + | Narrative | Performed At | + + + | External films for comparison only | [facility] | | | | | No results will be in the chart. | | + + + + +---------+ + + | Performing | Address | City/State/Zipcode | Phone Number | | Organization | | | | + +---------+ + + | [facility] | | | | + +---------+ + + from Last 3 Months Insurance + +--------+ +--------+ +---------+--------+ | Payer | Benefi | Subscriber | Effect | Phone | Address | Type | | | t Plan | ID | amaury | | | | | | / | | Dates | | | | | | Group | | | | | | + +--------+ +--------+ +---------+--------+ | MEDICARE | MEDICA | [id number] | 09/25/19 | [phone] | | Medica | | | RE | | 08-Pre | 5 | | re | | | PART A | | sent | | | | | | AND B | | | | | | + +--------+ +--------+ +---------+--------+ | AARP | AARP | [id number] | 03/27/19 | [phone] | | Indemn | | | MDCR | | 19-Pre | 0 | | ity | | | SUPPL | | sent | | | | + +--------+ +--------+ +---------+--------+ + +--------+ +--------+ + + | Guarantor Name | Accoun | Relation to | Date | Phone | Billing Address | | | t Type | Patient | of | | | | | | | | | | + +--------+ +--------+ + + | JimmyMian | Person | Self [birth year] | [address] | | | al/Fam | | 1950 | [phone] | [place] [address] | | | starr | | | 9 (Home) | | + +--------+ +--------+ + + Advance Directives + + + + + | Type | Date Recorded | Patient | Explanation | | | | Shotgun Shell Assembly Machine Operator | | + + + + + | Power of | | | | | Hurl Shaker | | | | + + + + + | Advance | 01/03/2019 | | | | Directive | 6:30 AM | | | + + + + + + + + + + | Code Status | Date | Date | Comments | | | Activated | Inactivated | | + + + + + | Full Code | 01/03/2019 | 01/03/2019 | | | | 10:28 AM | 2:42 PM | | + + + + + + + + +---+ | | | | | + + + +---+ | Full Code | 06/20/2018 | 06/20/2018 | | | | 9:52 AM | 1:45 PM | | + + + +---+ + + + +---+ | | | | | + + + +---+ | Full Code | 04/19/2018 | 04/19/2018 | | | | 2:36 PM | 5:30 PM | | + + + +---+
--- OUTSIDE RECORDS SUMMARY | ~2019-08-23 | XMS | Encounter Summary ---
Demographics + + + | Address | [address] | | | [place] [address] | + + + | Home Phone | | + + + | Preferred Language | Unknown | + + + | Marital Status | Single | + + + | Sabianist Affiliation | LATTER-DAY | + + + | Race | [...] Team Providers + +------+ + | Care Sales Financial Analyst Name | Role | Phone | [...] | | | | | | [place] [address] | | +--------+ + + + + documented as of this encounter Visit Diagnoses Not on filedocumented in this encounter"
--- OUTSIDE RECORDS SUMMARY | ~2019-08-23 | XMS | Encounter Summary ---
Demographics + + + | Address | [address] | | | [place] [address] | + + + | Home Phone [...] | [facility] | | | and Jadenana | + + + | Organization | [facility] | [...] | | | | | [place] [address] | | + + + + + Care Team Providers + +------+ + | Care Farmworker [employer] Name | Role | Phone | + +------+ + | Lexie Cagle | PCP | | | SYNCHRONIZER | | | + +------+ + Encounter Details +--------+ + + + + | Date | Type | Department | Care Team | Description | +--------+ + + + + | 12/13/ | Imaging | [facility] | Provider, | | | 2019 | Exam | [facility] | MD Elena [address] | | | | | IMAGING [address] | | | | | [address] | [place] [address] | | | | | [place] [address] | | | | | | [phone] | | | +--------+ + + + [...] [place] | | | | | | [address] | | | | | | | | +--------+---------+ + + + documented as of this encounter Procedures + +--------+ + + + | Procedure Name | Priori | Date/Time | Associated Diagnosis | Comments | | | ty | | | | + +--------+ + + + | XR LUMBAR SPINE 4 + | Routin | 12/12/2018 | | Results for this | | VW | e | 12:00 AM | | procedure are in the | | | | PDT | | results section. | + +--------+ + + + documented in this encounter Results XR Lumbar Spine 4 + Vw (12/12/2018 12:00 AM PDT) + + | Specimen | [...]
--- OUTSIDE RECORDS SUMMARY | ~2019-08-23 | XMS | Encounter Summary ---
Demographics + + + | Address | [address] | | | [place] [address] | + + + | Home Phone | | + + + | Preferred Language | Unknown | + + + | Marital Status | Single | + + + | Spiritism Affiliation | CONFUCIANIST | + + + | Race | White | + + + | Ethnic Group | Not or | + + + Author + + + | Author | [facility] | + + + | Organization | [facility] | + + + | Address | Unknown | + + + | Phone | Unavailable | + + + Support + + +---------+ + | Name | Relationship | Address | Phone | + + +---------+ + | Theodore Marquez | ECON | Unknown | | + + +---------+ + Care Team Providers + +------+ + | Care Workforce Consultant Name | Role | Phone | + +------+ + | Jose Hameed MD | PCP | | + +------+ + Reason for Visit + + + | Reason | Comments | + + + | Infusion | | + + + Encounter Details +--------+ + + + + | Date | Type | Department | Care Team | Description | +--------+ + + + + | 05/16/ | Hospital | [facility] | Onc, Gen [address] | | | 2020 | Encounter | [facility] | [address] [place], | | | | | [facility] | [place] [address] | | | | | for Health and | | | | | | Healing [address] | | | | | | [place], [place] | | | | | | [address] | | | | | | [phone] | | | +--------+ + + + [...] + + + | Blood Pressure | 148/93 | 05/16/2019 1:50 PM | | | | | PST | | + + + + + | Pulse | 73 | 05/16/2019 1:50 PM | | | | | PST | | + + + + + | Temperature | 36.6 C (97.9 F) | 05/16/2019 1:50 PM | | | | | PST | | + + + + + | Respiratory Rate | 16 | 05/16/2019 1:50 PM | | | | | PST | | + + + + + | Oxygen Saturation | 99% | 05/16/2019 1:50 PM | | | | | PST | | + + + + + | Inhaled Oxygen | - | - | | | Concentration | | | | + + + + + | Weight | 92.2 kg (203 lb 4.2 | 05/16/2019 8:30 AM | | | | oz) | PST | | + + + + + | Height | - | - | | + + + + + | Body Mass Index | 29.17 | 12/03/2018 10:59 AM | | | [...] + + +---------+ + + | DULoxetine 60 mg | Take 1 capsule by | 30 | 2 | 12/18/19 | | | oral capsule,delayed | mouth once daily. To | capsule | | 19 | | | release(DR/EC) | be taken with 30mg | | | | | | | capsule for total | | | | | | | daily dose of 90mg | | | | | + + [...] + + + +---------+ + + | ocrelizumab | Inject into the vein | | 0 | | | | (OCREVUS IV) | (IV). | | | | | + + [...] + + +---------+ + + | traZODone 100 mg | Take 2 tablets by | 60 | 2 | 05/10/19 | | | oral | mouth once daily at | tablet | | 20 | | | tabletIndications: | bedtime. Dispense 3 | | | | | | insomnia associated | months if possible | | | | | | with depression | Indications: | | | | | | | insomnia associated | | | | | | | with depression | | | | | + + + +---------+ + + | warfarin 5 mg oral | Take 5 mg by mouth | | 0 | | | | tablet | once daily. | | | | | + + + +---------+ + + documented as of this encounter Progress Notes Adrianna Timmons RN - 05/16/2019 8:30 AM PSTPatient here for Q6 month Ocrevus. No signs or s ymptoms of infections. Patient did have surgery on left wrist due to repeated break, it is c asted at this time. PIV placed in left AC per protocol. Premedicated with 650mg Tylenol, 10m g PO Claritin, and 100mg IV Solumedrol. Ocrevus titrated and infused per protocol and tolera leydi without issue. VSS. PIV removed intact. Pt discharged ambulatory and in stable condition . documented in this enc ounter Plan of Treatment +--------+ + + + + | Date | Type | Specialty | Care Team | Description | +--------+ + + + + | 10/31/ | Appointment | Hematology & | Onc, Gen [address] | | 2019 | | Oncology | [place], | | | | | | [place] [address] | | +--------+ + + + + [...] | acetaminophen (TYLENOL) tablet | Given | 05/16/19 | 650 mg | | | | 650 mg 650 mg, oral, ONCE, | | 20 8:50 | | | | | dose, Jemma 05/16/19 at 0830 | | AM PST | | | | + +--------+ +--------+------+------+ +---+---+ | | | +---+---+ + +-------+ +-------+---+---+ | loratadine (CLARITIN) tablet 10 | Given | 05/16/19 | 10 mg | | | | mg 10 mg, oral, NEEDED, 1 | | 20 8:50 | | | | | dose, Starting Jemma 05/16/19 at | | AM PST | | | | | 0816, Until Jemma 05/16/19 at 0850, | | | | | | | Give instead of diphenhydrAMINE | | | | | | | if patient does not have a mobile lounge driver or operator | | | | | | + +-------+ +-------+---+---+ +---+---+ | | | +---+---+ + +-------+ +--------+---+---+ | methylPREDNISolone sod succ | Given | 05/16/19 | 100 mg | | | | (PF) (SOLU-MEDROL) injection 100 | | 20 8:52 | | | | | mg 100 mg, intravenous, ONCE, 1 | | AM PST | | | | | dose, Jemma 05/16/19 at 0830 | | | | | | + +-------+ +--------+---+---+ +---+---+ | | | +---+---+ + +---------+ +--------+-------+---+ | ocrelizumab (OCREVUS) 600 mg in | New Bag | 05/16/19 | 600 mg | 200 | | | sodium chloride (NS) 0.9 % IV | | 20 9:36 | | mL/hr | | | 600 mg, intravenous, ONCE, 1 | | AM PST | | | | | dose, Jemma 05/16/19 at 0830 | | | | | | + +---------+ +--------+-------+---+ +---+---+ | | | +---+---+ documented in this encounter"
--- OUTSIDE RECORDS SUMMARY | ~2019-08-23 | XMS | Encounter Summary ---
Demographics + + + | Address | [address] | | | [place] [address] | + + + | Home Phone | | + + + | Preferred Language | Unknown | + + + | Marital Status | Single | + + + | Religion Affiliation | ORTHODOX | + + + [...] Team Providers + +------+ + | Care Test Operator Name | Role | Phone | [...] field testing | | 2014 | | [facility] | | | | | | [facility] [address] | | | | | [address] | | | | | | Mailcode: [id number] | | | | | | [facility] | | | | | | [place], | | | | | | | | | | | | [place], [place] | | | | | | [address] | | | | | | [phone] | | | +--------+ + + + [...] Marquez was seen in the [facility] today, 05/01/2014, for HVF [...] | | | | | | [place] [address] | | +--------+ + + + + + + +--------+ + + | Name | Type | Priori | Associated Diagnoses | Order Schedule | | | | ty | | | + + +--------+ + + | [facility] | Procedures | Routin | Visual field | Expected: 10/19/2014 | | FIELD | | e | defect, unspecified | | + + +--------+ + + documented as of this encounter Visit Diagnoses + + | Diagnosis | + + | Visual field defect, unspecified - Primary | + + documented in this encounter"
--- OUTSIDE RECORDS SUMMARY | ~2019-08-23 | XMS | Encounter Summary ---
Demographics + + + | Address | [address] | | | [place] [address] | + + + | Home Phone | | + + + | Preferred Language | Unknown | + + + | Marital Status | Single | + + + | Samaritan Affiliation | SAMARITAN | + + + [...] Team Providers + +------+ + | Care Operator Maintainer Name | Role | Phone | + +------+ + | Rudolph Lee MD | PCP | | + +------+ + Encounter Details +--------+ + + + + | Date | Type | Department | Care Team | Description | +--------+ + + + + | 02/20/ | Documentati | Anesthesiology | Unknown . | | | 2001 | on | [address] | | | | | | [place], | | | | | | [place] [address] | | | +--------+ + + + [...] | | | | | | [place] [address] | | +--------+ + + + + documented as of this encounter Procedures + +--------+ + + + | Procedure Name | Priori | Date/Time | Associated Diagnosis | Comments | | | ty | | | | + +--------+ + + + | ANESTHESIA/SEDATION | | 02/20/2002 | | Results for this | | | | 11:01 AM | | procedure are in the | | | | PST | | results section. | + +--------+ + + + documented in this encounter Results ANESTHESIA/SEDATION (02/20/2002 11:01 AM PST) + + + | Narrative | Performed At | + + + | Ordered by an unspecified provider. | | + + + + + | Transcriptions | + + | 02/20/2002 11:01 AM [facility] Anesthesia PostOp Report | | | | Patient: MIAN MARQUEZ [facility] Rec: [id number] Sex M Bdate: 1950 | | Date/Time Data | | Entered Into [facility] | | Anesth PostOp | | Surgery Date [id number] 02/20/02 11:01 | | Anesthesiologist JOYA GIRARD 02/20/02 11:01 | | Resident Anesthesiolog KRZYSZTOF MOORE 02/20/02 11:01 | | | + + documented in this encounter Visit Diagnoses Not on filedocumented in this encounter"
--- OUTSIDE RECORDS SUMMARY | ~2019-08-23 | XMS | Encounter Summary ---
Demographics + + + | Address | [address] | | | [place] [address] | + + + | Home Phone | | + + + | Preferred Language | Unknown | + + + | Marital Status | Single | + + + | Hindu Affiliation | METHODIST | + + + | Race | White | + + + | Ethnic Group | Not or | + + + Author + + + | Author | [facility] | + + + | Organization | [facility] | + + + | Address | Unknown | + + + | Phone | Unavailable | + + + Support + + +---------+ + | Name | Relationship | Address | Phone | + + +---------+ + | Theodore Marquez | ECON | Unknown | | + + +---------+ + Care Team Providers + +------+ + | Care Music Department Chair Name | Role | Phone | + +------+ + | Jose Hameed MD | PCP | | + +------+ + Reason for Referral Consultation (Routine) + +--------+ + + + + | Status | Reason | Specialty | Diagnoses / | Referred By | Referred To | | | | | Procedures | Contact | Contact | + +--------+ + + + + | New Request | | Plastic | Diagnoses | Soy | Pls | | | | Surgery | Abdominal | MD Shukri | Gen/Recon | | | | | pannus | [address] | [address] | | | | | Procedures | [address] | [address] | | | | | CONSULT TO | [place], [place] | Mailcode: | | | | | SURGERY - | [address] | [facility] | | | | | PLASTICS | Phone: | for Health | | | | | | [phone] | and Healing, | | | | | | Fax: | Building [address], | | | | | | [phone] | 5th Floor | | | | | | | [facility] [place] | | | | | | | [address] | | | | | | | Phone: | | | | | | | [phone] | + +--------+ + + + + Reason for Visit Benefits Check (Routine) +--------+--------+ + + + + | Status | Reason | Specialty | Diagnoses / | Referred By | Referred To | | | | | Procedures | Contact | Contact | +--------+--------+ + + + + | Closed | | Urology | Diagnoses | Soy, | Soy, | | | | | Neurogenic | MD Shukri | MD Shukri | | | | | bladder | [address] | [address] | | | | | | Ave | Ave | | | | | | [place], [place] | [facility] [place] | | | | | | [address] | [address] | | | | | | Phone: | Phone: | | | | | | [phone] | [phone] | | | | | | Fax: | Fax: | | | | | | [phone] | [phone] | +--------+--------+ + + + + Encounter Details +--------+---------+ + + + | Date | Type | Department | Care Team | Description | +--------+---------+ + + + | 11/21/ | Office | Urology at [facility] | Shukri Olivier MD | Neurogenic bladder | | 2019 | Visit | [address] | [address] | (Primary Dx); | | | | Mailcode: [id number] | [place], [place] | Incontinence without | | | | [facility] | [address] | sensory awareness; | | | | and Healing, | [phone] | Abdominal pannus | | | | | | | | | | Floor [place], [place] | | | | | | [address] | | | | | | [phone] | | | +--------+---------+ + + + [...] + + + | Blood Pressure | 146/85 | 11/21/2018 11:42 AM | | | | | PDT | | + + + + + | Pulse | 77 | 11/21/2018 11:42 AM | | | | | PDT | | + + + + + | Temperature | - | - | | + + + + + | Respiratory Rate | 16 | 11/21/2018 11:42 AM | | | | | PDT | | + + + + + | Oxygen Saturation | 96% | 11/21/2018 11:42 AM | | | | | PDT | | + + + + + | Inhaled Oxygen | - | - | | | Concentration | | | | + + + + + | Weight | 93.4 kg (206 lb) | 11/21/2018 11:42 AM | | | | | PDT | | + + + + + | Height | - | - | | + + + + + | Body Mass Index | 29.56 | 10/31/2016 3:28 PM | | | | | PDT | | + + + + + documented in this encounter Patient Instructions Patient Instructions Shukri Olivier MD - 11/21/2018 11:40 AM PDTCystectomy with Urinary Di version The information in this handout is provided to help you prepare for your upcoming Cystectom y with Ileal Conduit. It provides information about what will happen during your hospitaliza tion and what to expect when you go home. It also addresses some of our patients most fr equently asked questions. Pictures of the Urinary System Why is the surgery done? The most common reason Dr. Olivier removes a bladder is due to a severe bladder damage from a neurologic problem (multiple sclerosis, spinal cord injury, etc), or from severe radiation damage, usually from radiation treatment for cancer. In very rare cases, the bladder is rem mack for other problems such as interstitial cystitis. The information in here applies to pa tients having their bladder removed for these reasons, and does not apply to patients with b ladder cancer. A cystectomy removes the bladder, and sometimes the urethra. In men, the prostate is usuall y left behind unless you have a urethral stricture, in which case the prostate should be rem mack as the prostatic secretions will not be able to drain. In women, the uterus, ovaries, a nd fallopian tubes, if still present, are usually not removed and the vagina can be preserve d. The surgery is usually performed through a small incision in the mid-lower abdomen (from just above the belly button down to the pubic hairline). What are the risks? Cystectomy is a major surgical procedure. The risks include blood loss and while most patie nts do not require a blood transfusion, it is not unusual to need one. There are many struct ures in close proximity to the bladder which can be compromised, including the intestine and the rectum, the vagina in women, and some nerves. Men may have problems with erections and ejaculation after surgery, and rarely are able to father children. Women can usually have in tercourse if they were able to before surgery, but sensation may be different. There are oth er risks involved that Dr. Olivier will discuss with you. Urinary Diversion When the bladder is removed, a new way to store and pass urine is required. This is called urinary diversion . Dr. Olivier plans to do an ileal conduit or "urostomy." Dr. Olivier makes every effort to remove the bladder. In some cases, the tissue damage from radiation is too severe and the risk of injury to the rectum or significantly bleeding is to o great, and the bladder cannot be removed. In this case, there is a risk of pyocystis. Pyoc ystis occurs when the bladder no longer has urine passing through it. Urine normally washes shed cells and secretions out of the bladder, and when urine no longer passes through, build up of infectious material in the bladder (pyocystis) can occur, and can cause difficult prob lems. Ileal Conduit (Urostomy): A short piece of the small intestine is removed from the rest of the small intestine, which is rejoined. This short piece forms a tube through which urine can pass. The ureters (tubes draining from the kidneys to the bladder) are attached to one end of the piece of intestine , and the other end is brought through an opening in the wall of the abdomen. This opening i s called a stoma (see picture above). Urine passes freely through the stoma and drips contin uously into a urostomy bag (ostomy appliance) that is kept attached to the skin. The bag is drained into the toilet every few hours through a spigot in the bottom. At nighttime, a larg er collection device may be used to allow the patient to sleep through the night. Sometimes, especially if you have significant radiation damage, a segment of colon is used instead of small intestine. What are the risks? Because this requires removal of a segment of intestine, the remaining intestines have to b e put back together, which carries a risk of intestinal blockage, or leakage of intestinal c ontents. Both these risks are small but they can be serious, although the risks are higher i f you have had radiation. In the long-term, there may be some vitamin deficiency from the lo ss of part of the intestine, and this will be watched for. A urostomy is not a natural opening, but a surgically-created one, and there are risks of i t scarring down, developing a hernia, or other problems. Over the course of your lifetime, t here is about a 30% chance of needing a surgery to correct such a problem. In addition, your ureters (kidney tubes) are reconnected to the ileal conduit, and since th thalia are surgically-created, not natural, they can scar down and cause kidney blockage. The r isk of this is less than 5%, but you need to have your kidneys periodically monitored for th is. The risk is higher if you have had radiation. Where to Learn More: Even if you do not have bladder cancer, the Bladder Cancer Advocacy Network has excellent r esources for learning to live with a urinary diversion. http://www.bcan.org/learn/dqynvw-dvhptlyl-ggtydbi/ Click on The New Normal: Living with a Urinary Diversion YouTube: Go to www.youtube.com and search for ileal conduit care. Many brave patients share in timate videos of how they change their ostomy appliances and care for their stoma. What will I need to do to prepare for surgery? ? Discontinue Blood Thinning Medications If you take medicines that can affect the clot ting of blood and thus result in bleeding during surgery, such as Coumadin (warfarin), Plavi x (clopidogrel), aspirin, any nonsteroidal anti-inflammatory medication (e.g., Motrin, Aleve , Naprosyn, Advil, ibuprofen), fish oil or vitamin E, you will need to stop these, usually 7 days prior to surgery. Please contact your primary care physician or the physician who pre scribed these medications to make sure that it is safe for you to stop taking these medicine s. ? Bowel Preparation and Diet This allows decompression of the bowel to give your surgeo n more space in which to operate at the time of surgery and to clean the intestines. Dr. Humberto bassett will let you know what you need to do for your bowel prep, as it depends on the specific s of your medical history. After Surgery ? Tubes and drains o There will be a drain in your abdomen connected to a small bulb that accumulates fluid. T his allows us to drain excess fluid from your abdomen and watch for certain complications. I t is usually removed before you leave the hospital. o You will wake up from surgery with an ostomy appliance on your urostomy. You will meet wi th one or more stoma nurses in the hospital who will teach you and your family how to change the appliance and care for your stoma. o There are two small plastic-like tubes sticking out of the stoma after surgery. These are stents that help the new connection between your urinary tract and your intestine heal. Dr. Olivier will remove these 2-3 [address] o [address] Olivier will see you about a month after the stent removal with an ultrasound of your kidneys to ensure they are draining well. Pictures of the Urinary System Urinary Diversion When the bladder is removed, a new way to store and pass urine is required. This is called urinary diversion . Dr. Olivier plans to do a Continent Cutaneous Diversion (most commonly an Virginie pouc h). Continent Cutaneous Diversion (various names, most commonly [place] pouch) A reservoir is also made out of small or large intestine. The most common one performed by Dr. Olivier is an Virginie Pouch, named for [facility] where it was first done in the . The ureters are connected to the reservoir on one end, but the other end of the reservoir i s connected via a tube to a small stoma ( opening ) on the abdominal wall, often placed at the belly button. This creates a new bladder for your urine. Your appendix will be removed at the same time to prevent problems or, in some cases, the appendix will be used t o create your stoma (the opening) and the channel (the passageway between your pouch a nd the stoma). How you urinate: Instead of going to the bathroom and urinating into the toilet through your urethra, in the bathroom you will place a small catheter into your stoma. The catheter will pass into your pouch, and urine will drain out of the catheter and into the toilet. Initially, you will hav e to catheterize every 2 to 3 hours during the daytime and twice at night, but after several weeks this should improve to every 3-4 hours during the daytime and once at night. You will not have a normal sensation to urinate, you will know it is time to urinate if you have ful lness in the belly or start to leak from the stoma that means your pouch is too full. Yo u will wear a small bandage over the stoma to prevent mucous from getting onto your clothes. You will also learn how to irrigate your pouch. Since it is made from intestine, ther e will be mucous in there and this should be washed periodically to prevent infection and st ones. What are the risks? Because this requires removal of a segment of intestine, the remaining intestines have to b e put back together, which carries a risk of intestinal blockage, or leakage of intestinal c ontents. Both these risks are small but they can be serious. In addition, your ureters (kidney tubes) are reconnected to the ileal conduit, and since th thalia are surgically-created, not natural, they can scar down and cause kidney blockage. The r isk of this is less than 5%, but you need to have your kidneys periodically monitored for th is. Sometimes due to previous surgery or radiation, a pouch is not an option for you. This may not be realized until during the operation. In this case you will have an ileal conduit inst ead, which Dr. Olivier will discuss with you. While the majority of people do very well with this diversion, it is not as good as the rufina dder you were born with. Sometimes there are problems passing the catheter. Sometimes there is too much leakage from the stoma. However, over 90% of patients who have an Virginie Pouch are satisfied with their continence. Over the rest of your life, there is about a 30% risk o f needing another surgery to revise the pouch. Because of the mixture of urine in the intest ine, there is also a small chance of tumor formation in the pouch, so Dr. Olivier begins look ing in your pouch with a camera in the office (like a cystoscopy) once a year starting about 5 years after surgery. Colon cancer is the 2nd most common cancer in women and 3rd most common in men, and so you must have had a recent colonoscopy before Dr. Olivier will consider this surgery in order to ensure there are no tumors in the colon. Part of what keeps the pouch from leaking urine is the use of the ileocecal valve, a valve that normally exists between your small intestine and large intestine (colon). With this james e, some patients get diarrhea. In the majority, this improves over the next several months, but some patients need to be on a medication for the diarrhea. What else should I watch for? If you are not able to get a catheter into your stoma to drain your pouch, stop, and wait a few minutes and try again. Most of the time, this will solve the problem. These stomas and channels each have a personality that you will get to know over time, and as you becom e more familiar with it you will know exactly how to pass your catheter. If you are ever com pletely unable to get a catheter in, this is an emergency and you must be seen right away so a doctor can put a catheter in for you. If your pouch gets too full it could perforate or r upture, which can be life-threatening and often requires surgery to repair. Where to Learn More: Even if you do not have bladder cancer, the Bladder Cancer Advocacy Network has excellent r esources for learning to live with a urinary diversion. http://www.bcan.org/learn/aqcgia-qpuqbrpn-otxhttq/ Click on The New Normal: Living with a Urinary Diversion YouTube: Go to www.youtube.com and search for [place] Pouch. Many brave patients share intimat e videos of how they catheterize their stoma and care for their pouch. Most of Dr. Olivier s patients have found these videos helpful. What will I need to do to prepare for surgery? ? Discontinue Blood Thinning Medications If you take medicines that can affect the clot ting of blood and thus result in bleeding during surgery, such as Coumadin (warfarin), Plavi x (clopidogrel), aspirin, any nonsteroidal anti-inflammatory medication (e.g., Motrin, Aleve , Naprosyn, Advil, ibuprofen), fish oil or vitamin E, you will need to stop these, usually 7 days prior to surgery. Please contact your primary care physician or the physician who pre scribed these medications to make sure that it is safe for you to stop taking these medicine s. ? Bowel Preparation and Diet I want you to do a bowel prep the day before surgery. Shopping List For this preparation, you will need: One 238 gram bottle of Miralax (or generic equivalent), available over the counter Four tablets of Bisacodyl (Dulcolax), available over the counter 64 oz of Gatorade, water or other clear liquid THE DAY BEFORE YOUR SURGERY Start a clear liquid diet, see list below. No solids. You may have clear liquids up until midnight. You may take regular medication with a sip of water. Laxative Instructions Please follow instructions below closely, an inadequate bowel cleansing may result in a cancellation of the procedure. 1:00 pm: take two (2) Bisacodyl (Dulcolax) tablets. Mix all of the Miralax with 64oz of water, Ryan-aid, Gatorade, etc. Refrigerate. 4:00 pm: start drinking the Miralax solution. Drink 1 (8 oz) glass quickly, every 10 min utes until the solution is finished. 7:00 pm: take two (2) more Bisacodyl (Dulcolax) tablets. Clear liquids are those you can see through . Examples include: Water Strained fruit juice without the pulp (apple, white grape) Tea or coffee without milk or creamer Clear broth or bouillon Odalys sriram Lemon-st. croix soda Lemonade Sports drink (e.g., Gatorade) Ryan-Aid or other fruit flavored drinks Plain Jell-O without added fruit or toppings Ice Popsicles Hard Candies After Surgery Tubes and drains ? There will be a drain in your abdomen connected to a small bulb that accumulates fluid. T his allows us to drain excess fluid from your abdomen and watch for certain complications. I t is usually removed before you leave the hospital. ? You will have a suprapubic catheter after surgery. The pouch needs to heal after surgery so a large catheter will be in the pouch to allow the urine to continually drain. Another, s maller catheter will be in your stoma and channel to allow those to heal, but this catheter will be plugged and will not drain. In the first few weeks after surgery, you will learn how to irrigate your pouch through the suprapubic catheter. ? About 2-3 weeks after surgery, Dr. Olivier will do an X-ray in his office to ensure the po uch has healed. At that point, he will remove the catheter from your stoma and you will lear n how to catheterize yourself. The suprapubic catheter will be plugged and disconnected from the bag. You will get catheter supplies and go home. The suprapubic catheter is a safety ne t; if you have difficulty catheterizing yourself during that first week, you can always unpl ug the suprapubic catheter and drain the pouch into the toilet using that, then put the cap back in and try again later. ? If you are successful at catheterizing yourself independently for that week, at the next visit your suprapubic catheter will be removed. When it is removed, you will see two rubbery tubes attached to it that were inside your pouch. These were stents that were in place to h elp the connection between your urinary tract and pouch heal. documented in this encounter Progress Notes Shukri Olivier MD - 11/21/2018 11:40 AM [id number] with multiple sclerosis and neurogenic rufina dder managed with intermittent catheterization. He was referred to me in 2017 for insensible urinary incontinence occurring 30-60 minutes after catheterization and refractory to oxybut ynin, tolterodine, trospium, InterStim, and Botox. Outside urodynamics showed large capacity (700mL) with no detrusor overactivity and no stress urinary incontinence. He now lives in [facility] and has been following with Dr. Fernandes. Dr. Fernandes has kindly referred him for consideration of augmentation or diversion. He has a history of pul monary embolism, and developed a right calf deep venous thrombosis about a month ago for whi ch he is on warfarin. He continues to perform intermittent catheterization about 5 times a d ay. He has insensible urinary incontinence requiring 2-3 pull-ups per day. It remains a sign ificant bother for him and his quality of life. Mian reports Dr. Fernandes has suggested to him a condom catheter, but has problems with f it due to a lot of remaining suprapubic tissue. Mian reminds me that he used to be 400 lbs, and had a lap band procedure and has a lot of residual abdominopelvic tissue that precludes easy access to his penis. He also underwent a suprapubic catheter placement, but he continu ed to have urethral incontinence and did not like being attached to the catheter. He moved to [facility] to be closer to his grandchildren, which has been a difficult ad justment to him as [place]. BP 146/85 (BP Location: Left upper arm, Patient Position: Sitting) | Pulse 77 | Resp 16 | Wt 93.4 kg (206 lb) | SpO2 96% | BMI 29.56 kg/m | BSA 2.15 m General: NAD Neuro: Gait: normal HEENT: normocephalic Respiratory: normal effort, no retractions or purse-lip breathing. Cardiovascular: No extremity swelling varices, edema, pallor, or erythema. Skin: no rashes; good turgor Abdomen: palpable lap band in right upper quadrant; Tomasa scar; absent umbilicus; abdomino plasty scar Extremities: right tense calf edema Pelvic Exam (Male): Penis: normal, patent meatus; the penis is not buried but there is significant prepubic tis keith Diaper is dry; patient reports he just changed it. Impression: Neurogenic bladder Insensible urinary incontinence He has urinary incontinence which has not been reproducible. He has a very large bladder ca pacity with normal compliance and no detrusor overactivity. That said, his urinary incontine nce is quite large and significantly impairing his quality of life. It has not responded to multiple interventions, including behavioral management, antimuscarinics, InterStim, Botox, increased frequency of catheterization. He does not have stress urinary incontinence. I reviewed with Mian that based on his lack of detrusor overactivity and very large bladde r capacity on urodynamics, I do not think he would improve with augmentation cystoplasty and this would be a morbid undertaking. I discussed that cystectomy and urinary diversion would be an option, but with considerable risk. It would treat the urinary incontinence regardless of etiology. I discussed catheteri zable pouch as an option, but he was definitely not interested in this. I then discussed ile al conduit. Based on his abdominal exam, I am concerned about the ability to get a good stom a appliance fit, given the changes after his drastic weight loss, but it could be attempted. I reviewed surgical logistics and life with a urostomy. The risks and benefits of cystectomy and urinary diversion were discussed in detail. The ri sks include but are not limited to bowel obstruction or leak, urinary obstruction or leak, u reteral stricture, stomal complications including prolapse/stenosis/retraction/hernia, ventr al hernia, injury to bowel / blood vessels / nerves / surrounding structures, complications from the admixture of intestine and urinary tract, sexual dysfunction, deep venous thrombosi s and/or pulmonary embolism, pneumonia, heart attack, stroke, and . In contemporary ser ies, the complication rate of cystectomy with ileal conduit is about 40%. I do not recommend diversion without cystectomy due to the risk of pyocystis. Plan: Mian will consider this. I also discussed use of a Jay clamp, which he can order on line. He asked for my honest assessment, and I told him I thought urinary diversion was not in hi s best interest. He has struggled with his excessive skin and tissue after significant weight loss, and this poses a problem for catheterization and basic hygiene for him. As such, he requests a refer ral to plastic surgery at [facility] to consider his options. I spent 45 minutes with the patient today, more than half was spent in counseling the patie nt. documented in this enc ounter Plan of Treatment +--------+ + + + + | Date | Type | Specialty | Care Team | Description | +--------+ + + + + | 10/31/ | Appointment | Hematology & | Onc, Gen [address] | | | 2020 | | Oncology | [place], | | | | | | [place] [address] | | +--------+ + + + + documented as of this encounter Visit Diagnoses + + | Diagnosis | + + | Neurogenic bladder - Primary Neurogenic bladder, NOS | + + | Incontinence without sensory awareness | + + | Abdominal pannus Localized adiposity | + + documented in this encounter
--- OUTSIDE RECORDS SUMMARY | ~2019-08-23 | XMS | Encounter Summary ---
Demographics + + + | Address | [address] | | | [place] [address] | + + + | Home Phone | | + + + | Preferred Language | Unknown | + + + | Marital Status | | + + + | Rastafarian Affiliation | Unknown | + + + | Race | Unknown | + + + | Ethnic Group | Unknown | + + + Author + + + | Author | [facility] | | | and Jadenana | + + + | Organization | [facility] | | | and [...] | | | | | [place] [address] | | + + + + + Care Team Providers + +------+ + | Care Stars Specialist Name | Role | Phone | + +------+ + | Lexie Cagle | PCP | | | R&D ENGINEER | | | + +------+ + Reason for Visit + + + | Reason | Comments | + + + | Follow-up | | + + + Encounter Details +--------+---------+ + + + | Date | Type | Department | Care Team | Description | +--------+---------+ + + + | 10/17/ | Office | [facility] | Lexie Cagle | Paroxysmal atrial | | 2019 | Visit | MEDICINE [address] | [address] | fibrillation (HCC) | | | | [facility] | [facility] | (Primary Dx); | | | | [place] [address] | [place] [address] | Hypoglycemia; | | | | [phone] | [phone] | Multiple sclerosis | | | | | | (HCC); Chronic | | | | | | fatigue disorder; | | | | | | Persistent | | | | | | depressive disorder; | | | | | | B12 deficiency; H/O | | | | | [...] + + + | Blood Pressure | 130/74 | 10/17/2018 10:26 AM | | | | | PDT | | + + + + + | Pulse | 72 | 10/17/2018 10:26 AM | | | | | PDT | | + + + + + | Temperature | 36.4 C (97.5 F) | 10/17/2018 10:26 AM | | | | | PDT | | + + + + + | Respiratory Rate | 16 | 10/17/2018 10:26 AM | | | | | PDT | | + + + + + | Oxygen Saturation | 100% | 10/17/2018 10:26 AM | | | | | PDT | | + + + + + | Inhaled Oxygen | - | - | | | Concentration | | | | + + + + + | Weight | 91 kg (200 lb 9.9 | 10/17/2018 10:26 AM | | | | oz) | PDT | | + + + + + | Height | 177.8 cm (5' 10") | 10/17/2018 10:26 AM | | | | | PDT | | + + + + + | Body Mass Index | 28.79 | 10/17/2018 10:26 AM | | | | | PDT | | + + + + + documented in this encounter Progress Notes Lexie Cagle APRN - 10/17/2018 10:30 AM PDTFormatting of this note might be di fferent from the original. Subjective: Mian Marquez is a 68 y.o. male patient here for Follow-up Mian continues to be very bothered and worried about his chronic fatigue. He has not been taking amantadine as he was told it was making him more irritable. After a long discussion w ith his psychiatrist, he has decided to decline ECT due to the time commitment. Has been attending OT for his right wrist pain and swelling following surgery. Would be int erested in going to PT for gait changes and instability secondary to his MS. Has been tolerating warfarin without any GI bleeding or abnormal bruising. He did have some bleeding when he underwent bladder botox, but this has since stopped. Denies any hypoglycemic episodes, but does not eat regularly. He does try to supplement wit h boost/ensure whenever he remembers. Current Outpatient Medications on File Prior to Visit Medication Sig Dispense Refill amantadine (SYMMETREL) 100 mg capsule Take by mouth. cephalexin (KEFLEX) 500 mg capsule Take 500 mg by mouth. cholecalciferol (CHOLECALCIFEROL) 5000 units TABS Take 5,000 Units by mouth Daily. DULoxetine (CYMBALTA) [address] capsule Take 60 mg by mouth Daily. HYDROcodone-acetaminophen (NORCO) 5-325 mg per tablet Take 5 mg by mouth. Nutritional Supplements (NUTRITIONAL DRINK) LIQD Take 237 [...] tablet by mouth nightly. 30 tablet 0 warfarin (COUMADIN) 5 mg tablet 1 tab by mouth every evening, or as directed by provide r 30 tablet 1 No current facility-administered medications on file prior to visit. Immunization History Administered Date(s) Administered INFLUENZA 67 [...] catheter placement; Surgeon: Michael Fernandes MD; Location: [facility] OR CHOLECYCTOSTOMY CYSTOSCOPY N/A 04/19/2018 Procedure: Cystoscopy, bladder Botox, injection of urethral bulking agent; Surgeon: Gina Fernandes MD; Location: [facility] MA[facility] OR GASTRIC BYPASS SURGERY 2001 2 x HAND SURGERY 07/2018 KNEE SURGERY Bilateral LAP BAND 2010 urinary stimulator 2005 Social and family history reviewed with the patient and updated in the chart. Review of Systems Constitutional: Positive for malaise/fatigue. Musculoskeletal: Positive for joint pain. Psychiatric/Behavioral: Positive for depression. Negative for suicidal ideas. Objective: BP 130/74 | Pulse 72 | Temp 36.4 C (97.5 F) (Temporal) | Resp 16 | Ht 1.778 m (5' 1 0") | Wt 91 kg (200 lb 9.9 oz) | SpO2 100% | BMI 28.79 kg/m Physical Exam Constitutional: He is oriented to person, place, and time and well-developed, well-nourishe d, and in no distress. HENT: Head: Normocephalic. Pulmonary/Chest: Effort normal. Neurological: He is alert and oriented to person, place, and time. Skin: Skin is warm and dry. Psychiatric: Mood and affect normal. Assessment/Plan: Assessment: 1. Paroxysmal atrial fibrillation (HCC) 2. Hypoglycemia 3. Multiple sclerosis (HCC) 4. Chronic fatigue disorder 5. Persistent depressive disorder 6. B12 deficiency 7. H/O Benito-en-Y gastric bypass 8. Vitamin D deficiency Plan: 1. Will order PT when pt has completing OT. 2. Order for A1C printed to be done next week with his INR. 3. Continue to follow with psychiatry, neurology, and surgery at [facility]. 4. Dietary counseling reinforced to prevent further hypoglycemic episode. Continue with vit carias D replacement. Orders Placed This Encounter Procedures Hemoglobin A1C Reviewed signs and symptoms that would warrant emergent evaluation. Patient verbalized unde rstanding. Return in about 3 months (around 01/17/2019). Patient understands, accepts, and agrees with this plan. Over 20 minuntes spent in face to face time with this patient today. > 50% of time prison classification counselor ing regarding the listed conditions, options for treatment, and possible risks, and coordina ting care. Please see assessment and plan for further details Lexie Cagle DNP, SOFIA, BROOKEP-CElectronically signed by SOFIA Sky 10/17/2018 12:05 PM PDTdocumented in this encounter Plan of [...] [place] | | | | | | [id number] | | | | | | | | +--------+---------+ + + + documented as of this encounter Results Hemoglobin A1C (12/14/2018 10:04 AM PDT) + +-------+ + + + | Component | Value | Ref Range | Performed | Pathologist | | | | | At | Signature | + +-------+ + + + | Hemoglobin | 5.5 | 4.3 - 6.0 % | [facility] | | | A1c | | | [facility] | | | | | | [facility] | | | | | | [facility] - | | | | | | LABORATORY | | + +-------+ + + + | Estimated | 111 | mg/dL | [facility] | | | Average | | | [facility] | | | Glucose | | | MEDICAL | | | | | | CENTER - | | | | | | LABORATORY | | + +-------+ + + + + + | Specimen | + + | Blood | + + + + + + + | Performing | Address | City/State/Zipcode | Phone Number | | Organization | | | | + + + + + | [facility] | [address] | [place], [place] | [phone] | | [facility] | | [address] | | | - LABORATORY | | | | + + + + + documented in this encounter Visit Diagnoses + + | Diagnosis | + + | Paroxysmal atrial fibrillation (HCC) - Primary Atrial fibrillation | + + | Hypoglycemia Hypoglycemia, unspecified | + + | Multiple sclerosis (HCC) Multiple sclerosis | + + | Chronic fatigue disorder Chronic fatigue syndrome | + + | Persistent depressive disorder | + + | B12 deficiency Other B-complex deficiencies | + + | H/O Benito-en-Y gastric bypass Bariatric surgery status | + + | Vitamin D deficiency Unspecified vitamin D deficiency | + + documented in this encounter
--- OUTSIDE RECORDS SUMMARY | ~2019-08-23 | XMS | Encounter Summary ---
Demographics + + + | Address | [address] | | | [place] [address] | + + + | Home Phone | | + + + | Preferred Language | Unknown | + + + | Marital Status | Single | + + + | Buddhism Affiliation | SCIENTOLOGIST | + + + | Race | White | + + + | Ethnic Group | Not or | + + + Author + + + | Author | [facility] | + + + | Organization | [facility] | + + + | Address | Unknown | + + + | Phone | Unavailable | + + + Support + + +---------+ + | Name | Relationship | Address | Phone | + + +---------+ + | Theodore Marquez | ECON | Unknown | | + + +---------+ + Care Team Providers + +------+ + | Care Instructor Trainer Canine Service Name | Role | Phone | + [...] | Radiology | Diagnoses | Mass, | Rad Mri | | | | | Multiple | MD Christian | [facility] [address] | | | | | sclerosis | [address] | [place] | | | | | (HCC) | Nate | Mailcode: | | | | | Procedures | [address] | [facility] | | | | | MRI BRAIN | [place], [place] | for Health | | | | | MULTIPLE | [address] | and Healing, | | | | | SCLEROSIS | Phone: | [address], | | | | | [address] CONTRAST | [phone] | 3rd Floor | | | | | | Fax: | [facility] [place] | | | | | | [phone] | [address] | | | | | | | Phone: | | | | | | | [phone] | | | | | | | Fax: | | | | | | | [phone] | +--------+--------+ + + + + Reason [...] Description | +--------+---------+ + + + | 01/01/ | Office | Neurology at | Christian Maldonado MD | Multiple sclerosis | | 2018 | Visit | [facility] | [address] | ([facility]) (Primary Dx); | | | | Healing [address] | [address] [place], | Chronic low back | | | | [place] Mailcode: CH8C | [place] [address] | pain without | | | | [place] for [facility] | [phone] | sciatica, | | | | and Healing, | | unspecified back | | | | Building | | pain laterality | | | | Floor [place], [place] | | | | | | [address] | | | | | | [phone] | | | +--------+---------+ + + + [...] this encounter Last Filed Vital Signs + +---------+ + + | Vital Sign | Reading | Time Taken | Comments | + +---------+ + + | Blood Pressure | 132/70 | 01/01/2018 8:04 AM | | | | | PDT | | + +---------+ + + | Pulse | 60 | 01/01/2018 8:04 AM | | | | | PDT | | + +---------+ + + | Temperature | - | - | | + +---------+ + + | Respiratory Rate | - | - | | + +---------+ + + | Oxygen Saturation | - | - | | + +---------+ + + | Inhaled Oxygen | - | - | | | Concentration | | | | + +---------+ + + | Weight | - | - | | + +---------+ + + | Height | - | - | | + +---------+ + + | Body Mass Index | - | - | | + +---------+ + + documented in this encounter Progress Notes Christian Maldonado MD - 01/01/2018 8:20 AM PDT MULTIPLE SCLEROSIS CLINIC Medical Problems 1. Multiple sclerosis Avonex [id number] (treatment for 2 years) Rebif for 2.5 [...] replaced with paddles and non- rechargeable battery (Motobuykerss stimulator) in spring 2016. Battery replaced with MRI compatible battery Dec 2017 per patient report. 9. CHRISTEN 10.s/p Right SI joint fusion Dec 2017. INTERVAL HISTORY: Mr. Marquez RTC for follow up. He reports he had his R SI joint fused la . Also had his spinal cord stimulator battery replaced with one that is MRI compatib le. He reports he will be moving to [place]. His daughter lives in [place]. He plans to drake prajapati seeing docs in the [place] area for his specialty care. He has been receiving Botox for his bladder and cathing with some improvement in function. Still notes some leakage which he is working on with his urologist, Dr. Nix. He asks to day about an iliostomy for his bladder. I suggested he discuss this with his urologist. Current Outpatient Prescriptions Medication Sig buPROPion XL 300 mg oral tablet extended release 24 hr Take 1 tablet by mouth once lois y in the morning. Indications: major depressive disorder Cholecalciferol, Vitamin D3, (VITAMIN D3) 5,000 unit oral tablet Take 5,000 Units by [facility] once daily. cyanocobalamin 1,000 mcg/mL injection solution Inject into the muscle (IM). gabapentin 300 mg oral capsule Take 1 capsule by mouth three times daily. Indications: NEUROPATHIC PAIN iron sucrose 100 mg iron/5 mL intravenous solution Every other month metoprolol tartrate 25 mg oral tablet Take by mouth two times daily. modafinil 200 mg oral tablet Take 1 [...] mouth. traZODone 100 mg oral tablet Take 1 tablet by mouth once daily at bedtime. venlafaxine 75 mg oral tablet Take 1 tablet by mouth once daily. . Indications: major d epressive disorder warfarin 5 mg oral tablet Take 5 [...] Adhesive tape Physical Examination: Vital Signs: BP 132/70 | Pulse 60 | Wt 0 kg (0 lb) General: He is no apparent physical stress. [...] 5/5 strength t hroughout L UE and LE except 4/5 HF. He has 4+/5 strength throughout the Right UE. He has 4-/5 HF, 4+/5 KE/KF and 4/5 ADF R LE. Tone is mildly increased R. Reflexes are 2 UE 3 LE symmetrically throughout. Sensory exam: light touch reports slightly decreased throughout R compared to L. Vibratory sensation in decrease distally, all 4 extremities. Cerebellar te sting shows slowed [id number]-gv-koto. Gait: Antalgic casual gait, very difficult to tandem wa lk as he had to reach out for support. Declined 25 ft walk due to recent surgery. Impression: 1. Multiple sclerosis 2. Depression. 3. Hx Benito-en-Y with hx of B12 deficiency. 4. Vitamin D deficiency. 5. Complaints of worsening cognitive function. 6. Fatigue 7. Low back pain Mian reports he has been stable. He is interested in undergoing an MRI now that he has fish d changes to his SCS made that would allow for imaging. He would like to have this done bef ore moving in 2 weeks. He will continue his current medications. Plan: 1. RTC in 6 months. 2. Continue current medications. 3. Repeat MRI brain to assess for new disease activity. 4. Follow up with urology to discuss surgical options for his ongoing bladder dysfunction. I spent 25 minutes with the patient [...] | | | | | | [place] [address] | | +--------+ + + + + documented as of this encounter Results MRI BRAIN MULTIPLE SCLEROSIS WWO CONTRAST (01/24/2018 8:46 PM PDT) + + | Specimen | + + | | + + + + + | Narrative | Performed At | + + + | EXAM: MRI BRAIN WWO MULTIPLE SCLEROSIS HISTORY: assess for | [facility] | | disease progression. COMPARISON: 01/06/2016 TECHNIQUE: | RADIOLOGY VOICE | | Multiplanar multi-sequence MRI of the brain without and with | RECOGNITION 2 | | gadolinium based intravenous contrast: GADOTERATE MEGLUMINE 0.5 | | | MMOL/ML (376.9 MG/ML) INTRAVENOUS SOLUTION 18 mL FINDINGS: | | | BRAIN: Confluent T2/FLAIR hyperintensity of the supratentorial white | | | matter is unchanged compared to 2016 without new lesions. Pontine T2 | | | hyperintensity is unchanged. No abnormal enhancement evident. Global | | | volume loss is unchanged. No abnormal enhancement. No evidence of | | | hemorrhage, mass, or acute infarction. The ventricles are normal in | | | size and morphology. SOFT TISSUES AND MARROW: Unremarkable. FACE | | | AND ORBITS: Visualized portions are unremarkable. IMPRESSION: | | | No change in confluent T2/FLAIR hyperintensity of the supratentorial | | | white matter and mild hyperintensity of the toby. No abnormal | | | enhancement or reduced diffusion. I have personally reviewed the | | | images and, if necessary, edited the report. I agree with the report | | | as now presented. Final signature: Jose Gaxiola MD 01/24/2018 | | | 9:35 PM Preliminary: Jose Gaxiola MD Dictation initiated: Jose Gaxiola MD 01/24/2018 9:30 PM | | + + + + + | Procedure Note | + + | Service Account, Radiant Res In Interface - 01/24/2018 9:36 PM PDT EXAM: MRI BRAIN | | [facility] MULTIPLE SCLEROSIS HISTORY: assess for disease progression. COMPARISON: 01/06/2016 | | TECHNIQUE: Multiplanar multi-sequence MRI of the brain without and with gadolinium | | based intravenous contrast: GADOTERATE MEGLUMINE 0.5 MMOL/ML (376.9 MG/ML) INTRAVENOUS | | SOLUTION 18 mL FINDINGS: BRAIN: Confluent T2/FLAIR hyperintensity of the supratentorial | | white matter is unchanged compared to 2016 without new lesions. Pontine T2 | | hyperintensity is unchanged. No abnormal enhancement evident. Global volume loss is | | unchanged. No abnormal enhancement. No evidence of hemorrhage, mass, or acute | | infarction. The ventricles are normal in size and morphology. SOFT TISSUES AND MARROW: | | Unremarkable.FACE AND ORBITS: Visualized portions are unremarkable. IMPRESSION: No | | change in confluent T2/FLAIR hyperintensity of the supratentorial white matter and mild | | hyperintensity of the toby. No abnormal enhancement or reduced diffusion. I have | | personally reviewed the images and, if necessary, edited the report. I agree with the | | report as now presented. Final signature: Jose Gaxiola MD 01/24/2018 9:35 PM | | Preliminary: Jose Gaxiola MD Dictation initiated: Jose Gaxiola MD 01/24/2018 9:30 | | PM | | | |IMPRESSION: | | | |No change in confluent T2/FLAIR hyperintensity of the supratentorial white matter and mild hyperintensity of the toby. No abnormal enhancement or reduced diffusion. | | | |I have personally reviewed the images and, if necessary, edited the report. I agree with th e report as now presented. | | | |Final signature: Jose Gaxiola MD 01/24/2018 9:35 PM | |Preliminary: Jose Gaxiola MD | |Dictation initiated: Jose Gaxiola MD 01/24/2018 9:30 PM | + + + +---------+ + + | Performing | Address | City/State/Zipcode | Phone Number | | Organization | | | | + +---------+ + + | [facility] | | | | | VOICE RECOGNITION 2 | | | | + +---------+ + + documented in this encounter Visit Diagnoses + + | Diagnosis | + + | Multiple sclerosis (HCC) - Primary Multiple sclerosis | + + | Chronic low back pain without sciatica, unspecified back pain laterality | + + documented in this encounter"
--- OUTSIDE RECORDS SUMMARY | ~2019-08-23 | XMS | Encounter Summary ---
Demographics + + + | Address | [address] | | | [place] [address] | + + + | Home Phone | | + + + | Preferred Language | Unknown | + + + | Marital Status | Single | + + + | Yazidism Affiliation | SCIENTOLOGY | + + + | Race | [...] Team Providers + +------+ + | Care Hearing Aid Fitter Name | Role | Phone | + +------+ + PCP | Unavailable | + +------+ + Encounter Details +--------+ + + + + | Date | Type | Department | Care Team | Description | +--------+ + + + + | 03/15/ | Letter-Rosa | | Letter, Clinic | Letters | | 2004 | scribed | | | | +--------+ + + [...] as of this encounter Progress Notes Interface, Meat Pumper In - 10/24/2004 8:57 AM PDT [id number] 03/15/2004 03/15/2004 [id number] RAUL WERNER [address] [id number] or March 15, 2004 Claudy Junior M.D. [address] [facility] [place] [address] RE: MIAN MARQUEZ MR #: [id number] Dear Dr. Junior: Thank you for referring Mr. Mian Marquez for memantine for cognitive impairment trial. Unfortunately, Mr. Marquez has a very high depression score. He scored 30 on his BDI which makes him not eligible for this study at this point. If his depression is under better control and stable, he would be eligible in a few months, then we anticipate to continue enrollment then. He is not suicidal at this time, and he has no ideation about harming himself or others. However, he is quite depressed and thinks that the Wellbutrin has not been particularly helpful. He briefly told me that he has been on multiple antidepressants in the past with very low success. He may benefit from a combination trial of the Wellbutrin with an additional antidepressant like an SSRI. You may want to consider referring him to Psychiatry as he seems to have depression that is refractory to treatment. Sincerely, Lei Huitron M.D. MYKE / VICTOR M [id number] / [id number] / [id number] / documented i n this encounter Plan of Treatment +--------+ + + + + | Date | Type | Specialty | Care Team | Description | +--------+ + + + + | 10/31/ | Appointment | Hematology & | Onc, Gen [address] | | | 2020 | | Oncology | [address] [place], | | | | | | [place] [address] | | +--------+ + + + + documented as of this encounter Visit Diagnoses Not on filedocumented in this encounter"
--- OUTSIDE RECORDS SUMMARY | ~2019-08-23 | XMS | Encounter Summary ---
Demographics + + + | Address | [address] | | | [place] [address] | + + + | Home Phone | | + + + | Preferred Language | Unknown | + + + | Marital Status | Single | + + + | Cheondoism Affiliation | RELIGIOUS | + + + | Race | White | + + + | Ethnic Group | Not or | + + + Author + + + | Author | [facility] | + + + | Organization | [facility] | + + + | Address | Unknown | + + + | Phone | Unavailable | + + + Support + + +---------+ + | Name | Relationship | Address | Phone | + + +---------+ + | Theodore Marquez | ECON | Unknown | | + + +---------+ + Care Team Providers + +------+ + | Care Merchandising Intern Name | Role | Phone | + +------+ + | Jose Hameed MD | PCP | | + +------+ + Encounter Details +--------+ + + + + | Date | Type | Department | Care Team | Description | +--------+ + + + + | 11/09/ | Telephone | Neurology at | Christian Maldonado MD | | | 2016 | | [place] [facility] & | [address] | | | | | Healing [address] | [address] [place], | | | | | [place] Mailcode: CH8C | [place] [address] | | | | | [facility] | [phone] | | | | | and Healing, | | | | | | | | | | | | [place], [place] | | | | | | [address] | | | | | | [phone] | | | +--------+ + + + [...] | | | | | | [place] [address] | | +--------+ + + + + documented as of this encounter Visit Diagnoses + + | Diagnosis | + + | Cognitive complaints - Primary Other signs and symptoms involving cognition | + + documented in this encounter"
--- OUTSIDE RECORDS SUMMARY | ~2019-08-23 | XMS | Encounter Summary ---
Demographics + + + | Address | [address] | | | [place] [address] | + + + | Home Phone | | + + + | Preferred Language | Unknown | + + + | Marital Status | Single | + + + | Gnosticist Affiliation | ALEVISM | + + + [...] Team Providers + +------+ + | Care Customer Advisor Specialist Name | Role | Phone | [...] as of this encounter Progress Notes Interface, Machine Tack Puller In - 10/19/2005 3:01 AM PDTCLINIC DATE: [...] He will be set up with a personal injury litigation paralegal in Physical Therapy. He will follow up in 1 year with labs at that time. The patient was seen and examined with Dr. Posada. Zach Nails MD General Surgery Resident Colin Posada M.D. / [id number] / [id number] / [id number] / Tdocumented in this encounter Plan of Treatment +--------+ + + + + | Date | Type | Specialty | Care Team | Description | +--------+ + + + + | 10/31/ | Appointment | Hematology & | Onc, Gen [address] | | | 2020 | | Oncology | [place], | | | | | | [place] [address] | | +--------+ + + + + documented as of this encounter Visit Diagnoses Not on filedocumented in this encounter"
--- OUTSIDE RECORDS SUMMARY | ~2019-08-23 | XMS | Encounter Summary ---
Demographics + + + | Address | [address] | | | [place] [address] | + + + | Home Phone | | + + + | Preferred Language | Unknown | + + + | Marital Status | Single | + + + | Presybeterian Affiliation | CHURCH | + + + | Race | White | + + + | Ethnic Group | Not or | + + + Author + + + | Author | [facility] | + + + | Organization | [facility] | + + + | Address | Unknown | + + + | Phone | Unavailable | + + + Support + + +---------+ + | Name | Relationship | Address | Phone | + + +---------+ + | Theodore Marquez | ECON | Unknown | | + + +---------+ + Care Team Providers + +------+ + | Care Steamfitter Name | Role | Phone | + +------+ + | Jose Hameed MD | PCP | | + +------+ + Reason for Visit + + + | Reason | Comments | + + + | OCT - Macula | OU | + + + Encounter Details +--------+ + + + + | Date | Type | Department | Care Team | Description | +--------+ + + + + | 09/13/ | Diagnostic | [facility] | | OCT - Macula (OU) | | 2016 | Visit | [place] | | | | | | Photography at [facility] | | | | | | [address] | | | | | | Mailcode: CH11P | | | | | | [facility] | | | | | | and Healing, | | | | | | Building | | | | | | Floor [place], [place] | | | | | | [address] | | | | | | [phone] | | | +--------+ + + + [...] + + documented as of this encounter Amina Su - 09/13/2016 5:15 PM PDTThe interpretation for the following study: Dec can be found on physician encounter on 09/13/2016. documented in this e ncounter Plan of Treatment +--------+ + + + + | Date | Type | Specialty | Care Team | Description | +--------+ + + + + | 10/31/ | Appointment | Hematology & | Onc, [address] | | | 2020 | | Oncology | [place], | | | | | | [place] [address] | | +--------+ + + + + documented as of this encounter Visit Diagnoses + + | Diagnosis | + + | Decreased vision in both eyes Moderate or severe vision impairment, both eyes, | | impairment level not further specified | + + documented in this encounter"
--- OUTSIDE RECORDS SUMMARY | ~2019-08-23 | XMS | Encounter Summary ---
Demographics + + + | Address | [address] | | | [place] [address] | + + + | Home Phone [...] Author | [facility] | | | and Jadenana | + + + | Organization | [facility] | | | and [...] | | | | | [place] [address] | | + + + + + Care Team Providers + +------+ + | Care Plasma Processing Technician Name | Role | Phone | + +------+ + | Lexie Cagle | PCP | | | TOOTH INSPECTOR | | | + +------+ + Reason for Visit +--------+ + | Reason | Comments | +--------+ + | Pain | | +--------+ + Encounter Details +--------+ + + + + | Date | Type | Department | Care Team | Description | +--------+ + + + + | 02/01/ | Telephone | [facility] | Lexie Cagle | Pain | | 2019 | | MEDICINE [address] | [address] | | | | | [address] | [address] | | | | | [place] [address] | [place] [address] | | | | | [phone] | [phone] | | | | | | | [...] 2020 | Visit | | [address] | | | | | | [place] | | | | | | [id number] | | | | | | | | +--------+---------+ + + + documented as of this encounter Visit Diagnoses Not on filedocumented in this encounter"
--- OUTSIDE RECORDS SUMMARY | ~2019-08-23 | XMS | Encounter Summary ---
Demographics + + + | Address | [address] | | | [place] [address] | + + + | Home Phone | | + + + | Preferred Language | Unknown | + + + | Marital Status | Single | + + + | Oriental Orthodox Affiliation | RESTORATIONIST | + + + | Race | [...] Team Providers + +------+ + | Care Aerial Tram Operator Name | Role | Phone | + +------+ + | Rudolph Lee MD | PCP | | + +------+ + Encounter Details +--------+ + + + + | Date | Type | Department | Care Team | Description | +--------+ + + + + | 05/09/ | Letter-Rosa | | Letters, Other | Letters | | 2003 | scribed | | | | +--------+ [...] as of this encounter Progress Notes Interface, Weekend Caregiver In - 10/01/2005 1:10 AM [place] [facility] [place] [address] [place], [place] [address] or May 09, 2002 Og Novak M.D. [facility] [address] [address] RE: MIAN MARQUEZ MR #: [id number] Dear Dr. Novak: This is a letter to introduce you to my patient, Mr. Mian Marquez, who has recently undergone gastric bypass surgery for weight loss. This was accomplished laparoscopically, and he has done very well losing more than 70 pounds in the last 1-1/2 month. Unfortunately, Mian suffers from arthritis and gout which we discovered after the operation when he had a flare which was brought under control with colchicine. He has taken nonsteroidals in the form of indomethacin and ibuprofen for a quite long time and is unfortunately still requiring these for pain control. Unfortunately, his operation predisposes him to get any gastric or marginal ulcer at his gastrojejunostomy anastomosis, and I am fearful that he could destroy the benefit of his operation with an ulcer if we are unable to get him off the nonsteroidals rapidly. I have been trying to taper him off using narcotics instead, but I wonder if we should not be using more effective antiarthritis or gout medications. For this reason, I am sending him to you for consultation, and I hope that you will be able to come up with an more appropriate medication regimen for him. I am sending you his history, physical examination, operative notes, and discharge summary, and you should have these by the time you see him. Thank you for your consideration with these matters. Yours truly, Colin Posada M.D. [facility] General Pattern Stamperbutcher assistant SHAWN / VICTOR M [id number] / [id number] / [id number] / Tdocumented in this encounter Plan of Treatment +--------+ + + + + | Date | Type | Specialty | Care Team | Description | +--------+ + + + + | 10/31/ | Appointment | Hematology & | Onc, [address] | | | 2020 | | Oncology | [place], | | | | | | [place] [address] | | +--------+ + + + + documented as of this encounter Visit Diagnoses Not on filedocumented in this encounter"
--- OUTSIDE RECORDS SUMMARY | ~2019-08-23 | XMS | Encounter Summary ---
Demographics + + + | Address | [address] | | | [place] [address] | + + + | Home Phone | | + + + | Preferred Language | Unknown | + + + | Marital Status | | + + + | Mormon Affiliation | Unknown | + + + | Race | Unknown | + + + | Ethnic Group | Unknown | + + + Author + + + | Author | [facility] | | | and Jadenana | + + + | Organization | [facility] | | | and [...] | | | | | [place] [address] | | + + + + + Care Team Providers + +------+ + | Care Reservations Manager Name | Role | Phone | + +------+ + | Lexie Cagle | PCP | | | RESTAURANT AREA DIRECTOR | | | + +------+ + Reason [...] [place] | | | | | [place] | | [address] Phone: | | | | | INCISE/DRAIN | | [phone] | | | | | BLADDER | | Fax: | | | | | | | [phone] | +--------+--------+ + + + + Encounter Details +--------+---------+ + + + | Date | Type | Department | Care Team | Description | +--------+---------+ + + + | 06/20/ | Surgery | [facility] | Michael Fernandes | Cystoscopy, | | 2019 | | MED CTR [facility]TRA OP | MD Yaw [address] | suprapubic catheter | | | | [address] [place] | placement | | | | [place] | [address] | | | | | [address] | | | | | | [phone] | | | +--------+---------+ + + + [...] [place] | | | | | | [id number] | | | | | | | [...]
--- OUTSIDE RECORDS SUMMARY | ~2019-08-23 | XMS | Encounter Summary ---
Demographics + + + | Address | [address] | | | [place] [address] | + + + | Home Phone | | + + + | Preferred Language | Unknown | + + + | Marital Status | Single | + + + | Quaker Affiliation | CHRISTIANITY | + + + | Race | [...] Team Providers + +------+ + | Care Jigger Crown Pouncing Machine Operator Name | Role | Phone [...] as of this encounter Progress Notes Interface, Fine Grader In - 10/01/2005 1:10 AM PDTCLINIC DATE: [...] 1. He needs a referral to the [facility] Support Group. I have provided him with literature for this today, and we will call him to follow up. 2. He needs a Rheumatology referral. This has been orchestrated by his primary care physician, but it is going to 1-1/2 months. I am going to see if I can perform a referral up here at [facility] for a faster consultation. 3. Followup in this clinic in 1 month. Colin Posada M.D. SHAWN / VICTOR M [id number] / [id number] / [id number] / Tdocumented in this encounter Plan of Treatment +--------+ + + + + | Date | Type | Specialty | Care Team | Description | +--------+ + + + + | 10/31/ | Appointment | Hematology & | Onc, [address] | | | 2020 | | Oncology | [place], | | | | | | [place] [address] | | +--------+ + + + + documented as of this encounter Visit Diagnoses Not on filedocumented in this encounter"
--- OUTSIDE RECORDS SUMMARY | ~2019-08-23 | XMS | Encounter Summary ---
Demographics + + + | Address | [address] | | | [place] [address] | + + + | Home Phone | | + + + | Preferred Language | Unknown | + + + | Marital Status | Single | + + + | Uatsdin Affiliation | DRUZE | + + + | Race | White | + + + | Ethnic Group | Not or | + + + Author + + + | Author | [facility] | + + + | Organization | [facility] | + + + | Address | Unknown | + + + | Phone | Unavailable | + + + Support + + +---------+ + | Name | Relationship | Address | Phone | + + +---------+ + | Theodore Marquez | ECON | Unknown | | + + +---------+ + Care Team Providers + +------+ + | Care Chute Tender Name | Role | Phone | + +------+ + | Rudolph Lee MD | PCP | | + +------+ + Encounter Details +--------+ + + + + | Date | Type | Department | Care Team | Description | +--------+ + + + + | 11/24/ | Office | [facility] | Note, [...] as of this encounter Progress Notes Interface, Recruiting Coordinator In - 02/06/2006 5:01 AM PSTCLINIC DATE: 11/25/1999 UROLOGY CLINIC SUBJECTIVE: The patient returns in followup of his 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 He has, of course, associated urge syndrome with urge incontinence and relative discoordination between the bladder and bladder outlet. He also has large volume urine production at night. Since his last visit, he has been placed on hydrochlorothiazide at, what he believes is, a low dose at 25 mg in the morning. He does not even know that it actually produces a diuresis. He has also been on Detrol, but he is only taking it once a day in the evening and has noticed some improvement in the nighttime frequency. Upper tract ultrasound was completed today showing a left lower pole renal cyst but no evidence of hydronephrosis, calculi, or other renal lesions. OBJECTIVE: VITAL SIGNS: Blood pressure 142/98, heart rate 88, and respiratory rate 16. BACK: No CVA tenderness to percussion. ABDOMEN: Marked obesity, no peritoneal signs, no masses per se, and no suprapubic distention. GENITOURINARY: No urethral discharge. No acute intrascrotal process. There is some staining of the underclothing consistent with leakage of urine during urge episodes. By uroflowmetry, the patient is only able to void 35 mL with a slow flow rate which is uninterpretable. He did have postvoid ultrasound of his bladder up in Radiology earlier today and was found to have no significant postvoid residual urine. 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 Contributing to the problem is large volume urine production at night. RECOMMENDATIONS 1. Increase hydrochlorothiazide to 50 mg and take it about approximately 3 o'clock in the afternoon and observe for a genuine response. 2. Banana once a day which is for potassium replacement as needed. 3. Increase Detrol to one tablet p.o. b.i.d. with potential need to go even higher. 4. Watch fluid intake in the evening. 5. Call office with the results in the next week or two so that further observations of his medication dosages can be made. 6. In the future, he may consider a referral for consideration of CPAP at night in the event that part of the diuretic problem in the evening is related to increased atrial natriuretic factor. 7. Plan Urology followup six months. Trevin Brown M.D. ML / HS [id number] / [id number] / [id number] / [id number] signed by Stacy, Recruiting Coordinator In at 02/06/2006 5:01 AM Princess dorsey in this encounter Plan of Treatment +--------+ + + + + | Date | Type | Specialty | Care Team | Description | +--------+ + + + + | 10/31/ | Appointment | Hematology & | Onc, [address] | | | 2019 | | Oncology | [place], | | | | | | [place] [address] | | +--------+ + + + + documented as of this encounter Visit Diagnoses Not on filedocumented in this encounter"
--- OUTSIDE RECORDS SUMMARY | ~2019-08-23 | XMS | Encounter Summary ---
Demographics + + + | Address | [address] | | | [place] [address] | + + + | Home Phone | | + + + | Preferred Language | Unknown | + + + | Marital Status | Single | + + + | Voodoo Affiliation | GNOSTICISM | + + + | Race | White | + + + | Ethnic Group | Not or | + + + Author + + + | Author | [facility] | + + + | Organization | [facility] | + + + | Address | Unknown | + + + | Phone | Unavailable | + + + Support + + +---------+ + | Name | Relationship | Address | Phone | + + +---------+ + | Theodore Marquez | ECON | Unknown | | + + +---------+ + Care Team Providers + +------+ + | Care Pediatric Dental Hygienist Name | Role | Phone | + +------+ + | Trevin Delacruz MD | PCP | | + +------+ + Encounter Details +--------+ + + + + | Date | Type | Department | Care Team | Description | +--------+ + + + + | 08/26/ | Hospital | Radiology/Imaging | | | | 2014 | Encounter | Lab at [facility] [address] | | | | | | [address] Mailcode: | | | | | | [facility] | | | | | | Health and Healing, | | | | | | [address] | | | | | | [place], [place] | | | | | | [address] | | | | | | [phone] | | | +--------+ + + + [...] 2020 | | Oncology | [address] [place], | | | | | | [place] [address] | | +--------+ + + + + documented as of this encounter Visit Diagnoses + + | Diagnosis | + + | LAP-BAND surgery status Bariatric surgery status | + + | GERD (gastroesophageal reflux disease) Esophageal reflux | + + documented in this encounter"
--- OUTSIDE RECORDS SUMMARY | ~2019-08-23 | XMS | Encounter Summary ---
Demographics + + + | Address | [address] | | | [place] [address] | + + + | Home Phone | | + + + | Preferred Language | Unknown | + + + | Marital Status | | + + + | Jainism Affiliation | Unknown | + + + | Race | Unknown | + + + | Ethnic Group | Unknown | + + + Author + + + | Author | [facility] | | | and Jadenana | + + + | Organization | [facility] | | | and [...] | | | | | [place] [address] | | + + + + + Care Team Providers + +------+ + | Care Mexican Food Cook Name | Role | Phone | + +------+ + | Lexie Cagle | PCP | | | INSURANCE UNDERWRITING ASSISTANT | | | + +------+ + Encounter [...] [place] | | | | | [place] [address] | [place] [address] | | | | | [phone] | [phone] | | | | | | | [...] of this encounter Progress Notes Kerline Irizarry Big Data Lead - 10/29/2018 7:50 AM PDTCalled pt to [...] [place] | | | | | | [address] | | | | | | | [...]
--- OUTSIDE RECORDS SUMMARY | ~2019-08-23 | XMS | Encounter Summary ---
Demographics + + + | Address | [address] | | | [place] [address] | + + + | Home Phone | | + + + | Preferred Language | Unknown | + + + | Marital Status | Single | + + + | Hinduism Affiliation | PENTECOSTAL | + + + | Race | [...] Providers + +------+ + | Care Health Center Manager Name | Role | Phone | + +------+ + | Jose Hameed MD | PCP | | + +------+ + Encounter Details +--------+ + + + + | Date | Type | Department | Care Team | Description | +--------+ + + + + | 01/01/ | Procedure | Diagnostic Imaging | | | | 2017 | Pass | Services at [facility] | | | | | | [address] | | | | | | [place] | | | | | | [facility] | | | | | | [place], [place] | | | | | | [address] | | | | | | [phone] | | | +--------+ + + + [...] | | | | | | [place] [address] | | +--------+ + + + + documented as of this encounter Visit Diagnoses Not on filedocumented in this encounter"
--- OUTSIDE RECORDS SUMMARY | ~2019-08-23 | XMS | Encounter Summary ---
Demographics + + + | Address | [address] | | | [place] [address] | + + + | Home Phone | | + + + | Preferred Language | Unknown | + + + | Marital Status | Single | + + + | Judaism Affiliation | VOODOO | + + + | Race | [...] Team Providers + +------+ + | Care Industrial Hygiene Technician Name | Role | Phone | + +------+ + | Jose Hameed MD | PCP | | + +------+ + Encounter Details +--------+ + + + + | Date | Type | Department | Care Team | Description | +--------+ + + + + | 10/04/ | Telephone | Neurology at | Christian Maldonado MD | | | 2018 | | [place] [facility] & | [address] | | | | | Healing [address] | [address] [place], | | | | | [place] Mailcode: CH8C | [place] [address] | | | | | [facility] | [phone] | | | | | and Healing, | | | | | | | | | | | | [place], [place] | | | | | | [address] | | | | | | [phone] | | | +--------+ + + + [...] | | | | | | [place] [address] | | +--------+ + + + + documented as of this encounter Visit Diagnoses Not on filedocumented in this encounter"
--- OUTSIDE RECORDS SUMMARY | ~2019-08-23 | XMS | Encounter Summary ---
Demographics + + + | Address | [address] | | | [place] [address] | + + + | Home Phone [...] [facility] | | | and [place] | + + + | Organization | [facility] [...] | | | | | [place] [address] | | + + + + + Care Team Providers + +------+ + | Care Pump Tester Name | Role | Phone | + +------+ + | Lexie Cagle | PCP | | | COMPOSING MACHINE OPERATOR | | | + +------+ + Reason for Referral Evaluate & Treat (Routine) +--------+ + + + + + | Status | Reason | Specialty | Diagnoses / | Referred By | Referred To | | | | | Procedures | Contact | Contact | +--------+ + + + + + | Closed | Specialty | Orthopedic | Diagnoses | Cagle, | [facility] | | | Services | Surgery | Acute pain | Lexie | Orthopedic | | | Required | | of left knee | Arleen, | Surgery [address] | | | | | Chronic | COMPOSING MACHINE OPERATOR [address] | | | | | pain of | [address] | [place], | | | | | right knee | [place], | [place] | | | | | | [place] [address] | [address] | | | | | | Phone: | Phone: | | | | | | [phone] | [phone] | | | | | | Fax: | Fax: | | | | | | [phone] | [phone] | +--------+ + + + + + Evaluate & Treat (Routine) +--------+ + + + + + | Status | Reason | Specialty | Diagnoses / | Referred By | Referred To | | | | | Procedures | Contact | Contact | +--------+ + + + + + | Closed | Specialty | Dermatology | Diagnoses | Cagle, | [facility] | | | Services | | Skin | Lexie | YO | | | Required | | eruption | Arleen, | DERMATOLOGY | | | | | resembling | COMPOSING MACHINE OPERATOR [address] | [address] | | | | | psoriasis | [address] | [place] | | | | | | [place], | [place], [place] | | | | | | [place] [address] | [address] | | | | | | Phone: | Phone: | | | | | | [phone] | [phone] | | | | | | Fax: | Fax: | | | | | | [phone] | [phone] | +--------+ + + + + + [...] + + | 06/01/ | Office | [facility] | Lexie Cagle | Chronic fatigue | | 2019 | Visit | MEDICINE [address] | SOFIA [address] | disorder (Primary | | | | [facility] | [facility] | Dx); B12 deficiency; | | | | [place] [address] | [place] [address] | Anxiety associated | | | | [phone] | [phone] | with depression; H/O | | | [...] | Blood Pressure | 132/88 | 06/01/2018 1:46 PM | | | | | PST | | + + + + + | Pulse | 96 | 06/01/2018 1:46 PM | | | | | PST | | + + + + + | Temperature | 37.1 C (98.8 F) | 06/01/2018 1:46 PM | | | | | PST | | + + + + + | Respiratory Rate | 16 | 06/01/2018 1:46 PM | | | | | PST | | + + + + + | Oxygen Saturation | 97% | 06/01/2018 1:46 PM | | | | | PST | | + + + + + | Inhaled Oxygen | - | - | | | Concentration | | | | + + + + + | Weight | 90.3 kg (199 lb 1.2 | 06/01/2018 1:46 PM | | | | oz) | PST | | + + + + + | Height | 177.8 cm (5' 10") | 06/01/2018 1:46 PM | | | | | PST | | + + + + + | Body Mass Index | 28.56 | 06/01/2018 1:46 PM | | | | | PST | | + + + + + documented in this encounter Progress Notes Lexie Cagle, SOFIA - 06/01/2018 3:00 PM PSTFormatting of this note might be di fferent from the original. Subjective: Mian Marquez is a 68 y.o. male patient here for Fatigue (Chronic); Referral (Follow up) (De rmatology ); and Leg Pain (x2 weeks) Mian [...] bulking agent; Surgeon: Gina Fernandes MD; Location: [facility] MAIN OR GASTRIC BYPASS SURGERY 2001 [...] of bilateral knees today. 4. Referral to [facility] Dermatology entered. 5. Refill on [...] CBC with Differential Ferritin Referral to Dermatology [facility] Referral to [facility] Orthopedic Surgery Reviewed signs and symptoms that would warrant emergent evaluation. Patient verbalized unde rstanding. Return in about 4 weeks (around 06/29/2018). Patient understands, accepts, and agrees with this plan. Over 25 minuntes spent in face to face time with this patient today. > 50% of time domestic violence counselor ing regarding the listed conditions, options for treatment, and possible risks, and coordina ting care. Lexie Cagle DNP, SOFIA, AGNP-CElectronically signed by SOFIA Sky 06/01/2018 4:50 PM PSTdocumented in this encounter Plan of Treatment [...] [place] | | | | | | [address] | | | | | | | | +--------+---------+ + + + + + +--------+ + + | Name | Type | Priori | Associated Diagnoses | Order Schedule | | | | ty | | | + + +--------+ + + | Referral to | Outpatient | Routin | Skin eruption | Ordered: 06/01/2018 | | [facility] | Referral | e | resembling psoriasis | | | [place] | | | | | + + +--------+ + + | Referral to [facility] | Outpatient | Routin | Acute pain of left | Ordered: 06/01/2018 | | [place] [facility]opedic | Referral | e | knee Chronic pain | | | Surgery | | | of right knee | | + + +--------+ + + [...] | + +---------+ + + Ferritin (06/01/2018 2:52 PM PST) + +-------+ + + + | Component | Value | Ref Range | Performed | Pathologist | | | | | At | Signature | + +-------+ + + + | FERRITIN | 304 | 24 - 366 ng/mL | [facility] | | | | | [...] + | [facility] | [address] | [place] | [phone] | | [facility] | | [address] | | | - LABORATORY | | | | + + + + + CBC with Differential (06/01/2018 2:52 PM PST) + + + + + + | Component | Value | Ref Range | Performed | Pathologist | | | | | At | Signature | + + + + + + | WBC | 5.8 | 4.0 - 11.0 K/uL | [facility] | | | | | | [facility] | | | | | MED[facility] | | | | | | CENTER - | | | | | | LABORATORY | | + + + + + + | RBC | 4.60 | 4.30 - 5.70 | [facility] | | | | | M/uL | [facility] | | | | | | MEDICAL | | | | | | CENTER - | | | | | | LABORATORY | | + + + + + + | Hemoglobin | 14.7 | 13.5 - 18.0 | [facility] | [...] MCHC | 33.1 | 32.0 - 36.0 | [facility] | | | | | g/dL | [facility] | | | | | | MEDICAL | | | | | | CENTER - | | | | | | LABORATORY | | + + + + + + | RDW-CV | 13.4 | <15.0 % | [facility] | | [...] + + + + | Platelet | 209 | 140 - 440 K/uL [...] + + + + + | % | 63.2 | 45.0 - 82.0 % | [facility] | | | Neutrophils | | | [facility] | | | | | | MEDICAL | | | | | | CENTER - | | | | | | LABORATORY | | + + + + + + | % | 19.7 (L) | 20.0 - 45.0 % | [facility] | | | Lymphocytes | | | [facility] | | | | | | MEDICAL | | | | | | CENTER - | | | | | | LABORATORY | | + + + + + + | % Monocytes | 11.1 | 4.0 - 12.0 % | [facility] | | | | | | [facility] | | | | | | MEDICAL | | | | | | CENTER - | | | | | | LABORATORY | | + + + + + + | % | 4.8 | 0.0 - 5.0 % | [facility] | | | Eosinophils | | | [facility] | | | | | | MEDICAL | | | | | | CENTER - | | | | | | LABORATORY | | + + + + + + | % Basophils | 1.0 | 0.0 - 1.0 % | [facility] | | | | | | [facility] | | | | | | MEDICAL | | | | | | CENTER - | | | | | | LABORATORY | | + + + + + + | % Immature | 0.2 | 0.0 - 0.4 % | [facility] | | | Granulocyte | | | [facility] | | | s | | | MEDICAL | | | | | | CENTER - | | | | | | LABORATORY | | + + + + + + | Absolute | 3.65 | 1.80 - 8.50 | [facility] | | | Neutrophils | | K/uL | [facility] | | | | | | MEDICAL | | | | | | CENTER - | | | | | | LABORATORY | | + + + + + + | Absolute | 1.14 | 0.60 - 3.20 | [facility] | | | Lymphocytes | | K/uL | [facility] | | | | | | MEDICAL | | | | | | CENTER - | | | | | | LABORATORY | | + + + + + + | Absolute | 0.64 | 0.00 - 1.00 | [facility] | | | Monocytes | | K/uL | [facility] | | | | | | MEDICAL | | | | | | CENTER - | | | | | | LABORATORY | | + + + + + + | Absolute | 0.28 | 0.00 - 0.40 | [facility] | | | Eosinophils | | K/uL | [facility] | | | | | | MEDICAL | | | | | | CENTER - | | | | | | LABORATORY | | + + + + + + | Absolute | 0.06 | 0.00 - 0.10 | [facility] | | | Basophils | | K/uL | [facility] | | | | | | MEDICAL | | | | | | CENTER - | | | | | | LABORATORY | | + + + + + + | Absolute | 0.01 | 0.00 - 0.03 | [facility] | | | Immature | | K/uL | [facility] | | | Granulocyte | | | MEDICAL | | | s | | | CENTER - | | [...] | | nRBC | | K/uL | [facility] | | | | | | MEDICAL [...] [address] | [place] | [phone] | | [facility] | | [address] | | | - LABORATORY | | | | + + + + + Comprehensive Metabolic Panel (06/01/2018 2:52 PM PST) + + + + + + | Component | Value | Ref Range | Performed | Pathologist | | | | | At | Signature | + + + + + + | Na | 138 | 136 - 149 | [facility] | | | | | mmol/L | [facility] | | | | | | MEDICAL | | | | | | CENTER - | | | | | | LABORATORY | | + + + + + + | K | 4.5 | 3.5 - 5.1 | [facility] | | | | | mmol/L | [facility] | | | | | | MEDICAL | | | | | | CENTER - | | | | | | LABORATORY | | + + + + + + | Cl | 100 | 98 - 109 mmol/L | [facility] | | | | | | [facility] | | | | | | MEDICAL | | | | | | CENTER - | | | | | | LABORATORY | | + + + + + + | CO2 | 27 | 24 - 31 mmol/L | [facility] | | | | | | [facility] | | | | | | MEDICAL | | | | | | CENTER - | | | | | | LABORATORY | | + + + + + + | Anion Gap | 11 | 3 - 16 mmol/L | [facility] | | | | | | [facility] | | | | | | MEDICAL | | | | | | CENTER - | | | | | | LABORATORY | | + + + + + + | Glucose | 63 (L) | 70 - 109 mg/dL | [facility] | | | | | | [facility] | | | | | | MEDICAL | | | | | | CENTER - | | | | | | LABORATORY | | + + + + + + | BUN | 17 | 7 - 18 mg/dL | [facility] | | | | | | [facility] | | | | | | MEDICAL | | | | | | CENTER - | | | | | | LABORATORY | | + + + + + + | Creatinine | 0.84 | 0.60 - 1.30 | [facility] | | | | | mg/dL | [facility] | | | | | | MEDICAL | | | | | | CENTER - | | | | | | LABORATORY | | + + + + + + | eGFR if not | >60Comment: GLOMERULAR | >=60 | [facility] | | | | FILTRATION | mL/min/1.73m2 | [facility] | | | UGANDAN | RATE,ESTIMATED | | MEDICAL | | | | mL/min/1.52i8Vdbo than | | CENTER - | | | | 60 Chronic kidney | | LABORATORY | | | | disease,if found over a | | | | | | 3-month period.Less than | | | | | | 15 Kidney failureFor | | | | | | | | | | | | Americans,multiply the | | | | | | calculated GFR by 1.21. | | | | | | | | | | + + + + + + | Calcium | 9.1 | 8.3 - 10.5 | [facility] | | | | | mg/dL | [facility] | | | | | | MEDICAL | | | | | | CENTER - | | | | | | LABORATORY | | + + + + + + | Albumin | 4.3 | 3.2 - 5.0 g/dL | [facility] | | | | | | [facility] | | | | | | MEDICAL | | | | | | CENTER - | | | | | | LABORATORY | | + + + + + + | Bilirubin | 1.0 | 0.1 - 1.5 mg/dL | [facility] | | | Total | | | [facility] | | | | | | MEDICAL | | | | | | CENTER - | | | | | | LABORATORY | | + + + + + + | Total | 6.9 | 6.0 - 7.8 g/dL | [facility] | | | Protein | | | [facility] | | | | | | MEDICAL | | | | | | CENTER - | | | | | | LABORATORY | | + + + + + + | AST | 26 | 10 - 42 U/L | [facility] | | | | | | [facility] | | | | | | MEDICAL | | | | | | CENTER - | | | | | | LABORATORY | | + + + + + + | ALT | 23 | 6 - 45 U/L | [facility] | | | | | | [facility] | | | | | | MEDICAL | | | | | | CENTER - | | | | | | LABORATORY | | + + + + + + | Alkaline | 57 | 40 - 110 U/L | [facility] | | | Phosphatase | | | [facility] | | | | | | MEDICAL | | | | | | CENTER - | | | | | | LABORATORY | | + + + + + + | Globulin | 2.6 | 2.1 - 3.8 g/dL | [facility] | | | | | | [facility] | | | | | | MEDICAL | | | | | | CENTER - | | | | | | LABORATORY | | + + + + + + | Albumin/Lulu | 1.7 | 0.8 - 2.0 | [facility] | | | bulin Ratio | | | [facility] | | | | | | MEDICAL | | | | | | CENTER - | | | | | | LABORATORY | | + + + + + + | BUN/Creatin | 20.2 | | [facility] | | | ine Ratio | | | [facility] | | [...] + | [facility] | [address] | [place] | [phone] | | [facility] | | [address] | | | - LABORATORY | | | | + + + + + Iron and Transferrin (06/01/2018 2:52 PM PST) + + + + + + | Component | Value | Ref Range | Performed | Pathologist | | | | | At | Signature | + + + + + + | Iron | 81 | 50 - 160 ug/dL | [facility] | | | | | | [facility] | | | | | | MEDICAL | | | | | | CENTER - | | | | | | LABORATORY | | + + + + + + | TRANSFERRIN | 198.8 (L) | 240.0 - 480.0 | [facility] | | | | | mg/dL | [facility] | | | | | | MEDICAL | | | | | | CENTER - | | | | | | LABORATORY | | + + + + + + | TIBC | 278 | 235 - 425 ug/dL | [facility] | | | | | | [facility] | | | | | | MEDICAL | | | | | | CENTER - | | | | | | LABORATORY | | + + + + + + | % | 29.1 | 20.0 - 55.0 % | [facility] | | | SATURATION | | | [facility] | | [...] [address] | [place] | [phone] | | [facility] | | [address] | | | - LABORATORY | | | | + + + + + Vitamin D, Deficiency Screen (25-Hydroxy) (06/01/2018 2:52 PM PST) + +--------+ + + + | Component | Value | Ref Range | Performed | Pathologist | | | | | At | Signature | + +--------+ + + + | Vitamin D, | 11 (L) | 30 - 100 ng/mL | [facility] | | | 25 Hydroxy | | | [facility] | | | | | | MEDICAL | | | | | | CENTER - | | | | | | LABORATORY | | + +--------+ + + + + + | Specimen | + + | Blood | + + + + + + + | Performing | Address | City/State/Zipcode | Phone Number | | Organization | | | | + + + + + | [facility] | [address] | [place] | [phone] | | [facility] | | [address] | | | - LABORATORY | | | | + + + + + Folate (06/01/2018 2:52 PM PST) + +-------+ + + + | Component | Value | Ref Range | Performed | Pathologist | | | | | At | Signature | + +-------+ + + + | FOLATE | 19.4 | >5.8 ng/mL | [facility] | | | | | [...] + | [facility] | [address] | [place] | [phone] | | [facility] | | [address] | | | - LABORATORY | | | | + + + + + Vitamin B-12 (06/01/2018 2:52 PM PST) + + + + + + | Component | Value | Ref Range | Performed | Pathologist | | | | | At | Signature | + + + + + + | VITAMIN | 320Comment: DEFICIENT: | 180 - 914 pg/mL | [facility] | | | B-12 | <145 | | [facility] | | | | pg/mLINDETERMINATE: | | MEDICAL | | | | 145-180 pg/mL | | CENTER - | | | [...] ST. | [address] | [place], [place] | [phone] | | [facility] | | [address] | | | - LABORATORY | | | | + + + + + T4, Free (06/01/2018 2:52 PM PST) + +-------+ + + + | Component | Value | Ref Range | Performed | Pathologist | | | | | At | Signature | + +-------+ + + + | FT4 | 0.8 | 0.6 - 1.1 ng/dL | [facility] | | | | | | [facility]. [address] | [place] | [phone] | | [facility] | | [address] | | | - LABORATORY | | | | + + + + + TSH (06/01/2018 2:52 PM PST) + + + + + + | Component | Value | Ref Range | Performed | Pathologist | | | | | At | Signature | + + + + + + | TSH | 2.08Comment: This is a | 0.45 - 5.33 | [facility] | | | | third generation TSH | uIU/mL | [facility] | | | | test. | | MEDICAL | | | | [...] + + + + + | [facility] | [address] | [place] | [phone] | | [facility] | | [address] | | | - LABORATORY | | | | + + + + + documented in this encounter Visit Diagnoses + + | Diagnosis | + + | Chronic fatigue disorder - Primary Chronic fatigue syndrome | + + | B12 deficiency Other B-complex deficiencies | + + | Anxiety associated with depression Dysthymic disorder | + + | H/O Benito-en-Y gastric bypass Bariatric surgery status | + + | Iron malabsorption Other specified intestinal malabsorption | + + | Macrocytosis Other specified diseases of blood and blood-forming organs | + + | Vitamin D deficiency Unspecified vitamin D deficiency | + + | Skin eruption resembling psoriasis Other psoriasis and similar disorders | + + | Acute pain of left knee | + + | Chronic pain of right knee | + + | Left hand pain Pain in limb | + + | RLS (restless legs syndrome) Restless legs syndrome (RLS) | + + documented in this encounter
--- OUTSIDE RECORDS SUMMARY | ~2019-08-23 | XMS | Encounter Summary ---
Demographics + + + | Address | [address] | | | [place] [address] | + + + | Home Phone | | + + + | Preferred Language | Unknown | + + + | Marital Status | Single | + + + | Evangelical Affiliation | MORMONISM | + + + | Race | White | + + + | Ethnic Group | Not or | + + + Author + + + | Author | [facility] | + + + | Organization | [facility] | + + + | Address | Unknown | + + + | Phone | Unavailable | + + + Support + + +---------+ + | Name | Relationship | Address | Phone | + + +---------+ + | Theodore Marquez | ECON | Unknown | | + + +---------+ + Care Team Providers + +------+ + | Care Benchroom Shop Optician Name | Role | Phone | + [...] | | 2014 | | [facility] at [facility] [address] | [facility] [address] | | | | | [address] | [address] [place], [place] | | | | | Mailcode: [place] | [address] | | | | | for Health and | [phone] | | | | | [facility] [address] | | | | | | [place], [place] | | | | | | [address] | | | | | | | [...] | | | | | | [place] [address] | | +--------+ + + + + documented as of this encounter Visit Diagnoses Not on filedocumented in this encounter"
--- OUTSIDE RECORDS SUMMARY | ~2019-08-23 | XMS | Encounter Summary ---
Demographics + + + | Address | [address] | | | [place] [address] | + + + | Home Phone | | + + + | Preferred Language | Unknown | + + + | Marital Status | | + + + | Presybeterian Affiliation | Unknown | + + + | Race | Unknown | + + + | Ethnic Group | Unknown | + + + Author + + + | Author | and [facility] | | | and [place] | + + + | Organization | and [facility] | | [...] | | | | | [place] [address] | | + + + + + Care Team Providers + +------+ + | Care Coin Teller Name | Role | Phone | + +------+ + | Lexie Cagle | PCP | | | FIRE HYDRANT MECHANIC | | | + +------+ + Reason [...] | | [place] | [place] | | | | | [address] | [address] | | | | | [phone] | | | +--------+ + + + [...] 2020 | Visit | | [address] | | | | | | [place] | | | | | | [id number] | | | | | | | [...]
--- OUTSIDE RECORDS SUMMARY | ~2019-08-23 | XMS | Encounter Summary ---
Demographics + + + | Address | [address] | | | [place] [address] | + + + | Home Phone | | + + + | Preferred Language | Unknown | + + + | Marital Status | Single | + + + | Jewish Affiliation | CHRISTIANITY | + + + | Race | White | + + + | Ethnic Group | Not or | + + + Author + + + | Author | [facility] | + + + | Organization | [facility] | + + + | Address | Unknown | + + + | Phone | Unavailable | + + + Support + + +---------+ + | Name | Relationship | Address | Phone | + + +---------+ + | Theodore Marquez | ECON | Unknown | | + + +---------+ + Care Team Providers + +------+ + | Care Neurology Physician Assistant Name | Role | Phone | + +------+ + | Rudolph Lee MD | PCP | | + +------+ + Encounter Details +--------+ + + + + | Date | Type | Department | Care Team | Description | +--------+ + + + + | 08/24/ | Office | [facility] | Note, [...] as of this encounter Progress Notes Interface, International Coordinator In - 02/12/2006 3:07 AM PSTCLINIC DATE: 08/25/1999 DIAGNOSTIC URODYNAMICS REPORT PREPROCEDURE DIAGNOSIS: Voiding dysfunction with incontinence. POSTPROCEDURE DIAGNOSES 1. 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 a. Secondary urge syndrome and urge incontinence. b. Impaired coordination between bladder and bladder outlet with a mild degree of dysfunctional voiding. 2. Clinical history suggestive of large volume urine production at night. 3. Possibility of pelvic lipomatosis. PROCEDURES: Calibrated cystometrography, pelvic floor electromyography, fluoroscopic cystourethrography, and voiding pressure study. INDICATIONS: This is a 49-year-old man with diagnosis of multiple sclerosis affecting mainly cognitive functions, but with some lower extremity pain symptoms. He has had persistence of voiding difficulties with associated urgency and an episodic urge incontinence worsening over the past couple of months. He did not perform a voiding log, but reported to us that he has been up several times at night and added up the volume and predicts that it is in the region of 1 gallon. He has been evaluated for possible sleep apnea, but has not been treated. FINDINGS: The patient was unable to void into the uroflow commode, but was able to pass some in private in a normal bathroom. The residual urine was 60 mL. There is no obstruction to passage of urethral catheter. During bladder filling, there appeared to be displacement of the bladder slightly to the left and upward displacement of the pelvis. As his bladder progressively filled, most of his bladder was protruding out above the pubic rim. He did not have first sensation until 205 mL with multiple prompts. He did not report an urge until 550 mL when he was experiencing an involuntary detrusor contraction. Close inspection of the uroflow curve revealed evidence of small magnitude suppressed contractions occurring at much lower volumes, but it was the high volume contractions that were associated with urgency and strong reaction which suppressed the contractions. In the upright position, he was able to perform a voiding pressure study with highly irregular flow and pressure maintenance associated with spiking activity in the pelvic floor and anatomic narrowing at the level of the external sphincter. All this was consistent with the impairment of coordination between the bladder and the bladder outlet with flow variability. In private, he was able to empty his bladder essentially completely. The voiding pressures fluctuated the most between 25 and 35 cm of water. PROCEDURE: The patient was identified and brought to the urodynamic suite where he was allowed to attempt voiding into the calibrated uroflow commode, but was unable to do so even with accessory stimulation. He was therefore allowed to void in a private bathroom, and then placed on a table in a supine position. External genitalia prepped with Betadine and a 14-Ivorian catheter was used to drain the bladder. This was replaced with a 7-Ivorian dual-lumen urodynamics catheter. Electromyography pads were placed perianally, and a rectal balloon catheter was inserted. After making appropriate connections and calibrations, the bladder was filled with Cystografin at a rate 50 mL per minute. Findings are reported above. Infusion was stopped at approximately 575 mL after clearcut involuntary detrusor activity was detected and suppressed. He was then brought to an upright position and the instrumentation was re-calibrated and a voiding pressure study was performed. After removal of all catheters and wires, he was allowed to void in private and then a postvoid film was obtained. He tolerated the procedure well with no complications. He will take Cipro 250 mg for 2 doses prophylactically. We will give him the opportunity to try Detrol 2 mg p.o. b.i.d. to see if it helps with the symptoms. He was advised that because of the impairment of his bladder sensation that he should void more by the clock, and consider voiding when he has even very mild urge. He also needs to have his primary care physician look into the problem of excessive nighttime volume production. Diuretics during the daytime are sometimes helpful. Also, if he has any significant degree of reduced oxygen supply during sleep, he might be assisted by CPAP which can cut down on the secretion of atrial natriuretic factor, and thereby decrease nighttime diuresis in some cases. Follow up with us will be in three months with flow and postvoid residual on his new medication regimen. He will also need renal ultrasound for baseline purposes. Trevin Brown M.D. ML / HS [id number] / [id number] / [id number] / [id number] cc: Christian Maldonado M.D. Neurology, [id number] signed by Interface, International Coordinator In at 02/12/2006 3:07 AM PSTdocume nted in this encounter Plan of Treatment +--------+ + + + + | Date | Type | Specialty | Care Team | Description | +--------+ + + + + | 10/31/ | Appointment | Hematology & | Onc, Gen [address] | | | 2020 | | Oncology | [place], | | | | | | [place] [address] | | +--------+ + + + + documented as of this encounter Visit Diagnoses Not on filedocumented in this encounter"
--- OUTSIDE RECORDS SUMMARY | ~2019-08-23 | XMS | Encounter Summary ---
Demographics + + + | Address | [address] | | | [place] [address] | + + + | Home Phone | | + + + | Preferred Language | Unknown | + + + | Marital Status | Single | + + + | Pentecostalism Affiliation | ANABAPTIST | + + + | Race | [...] 08/28/ | Telephone | [facility] | Liliana Conteh, | | | 2014 | | [place] at [facility] [address] | [facility] [address] | | | | | [address] | Ave [facility] [place] | | | | | Mailcode: [place] | [address] | | | | | [facility] and | [phone] | | | | | [facility], [place] [address] | | | | | | [place], [place] | | | | | | [address] | | | | | | | [...] | | | | | | [place] [address] | | +--------+ + + + + documented as of this encounter Visit Diagnoses Not on filedocumented in this encounter"
--- OUTSIDE RECORDS SUMMARY | ~2019-08-23 | XMS | Encounter Summary ---
Demographics + + + | Address | [address] | | | [place] [address] | + + + | Home Phone | | + + + | Preferred Language | Unknown | + + + | Marital Status | | + + + | Methodist Affiliation | Unknown | + + + | Race | Unknown | + + + | Ethnic Group | Unknown | + + + Author + + + | Author | [facility] | | | and [place]aden[place] | + + + | Organization | [facility] | | | and [...] | | | | | [place] [address] | | + + + + + Care Team Providers + +------+ + | Care Hematology Oncology Consultant Name | Role | Phone | + +------+ + | Lexie Cagle | PCP | | | RECOVERY AUDITOR | | | + +------+ + Encounter [...] [place] | | | | | [place] [address] | [place] [address] | | | | | [phone] | [phone] | | | | | | | [...] | | | | | [place] | | | | | | [address] | | | | | | | [...] this encounter Results External Lab: Mar INR (01/10/2019) + +---------+ + + + [...] + + | REFERENCE LAB | [address] | [place] | [phone] | | [facility] | | [address] | | + + + + + | REFERENCE LAB | [address] [facility] [facility] | [place] | [phone] | | [facility] | | [address] | | + + + + + documented in this encounter Visit Diagnoses Not on filedocumented in this encounter"
--- OUTSIDE RECORDS SUMMARY | ~2019-08-23 | XMS | Encounter Summary ---
Demographics + + + | Address | [address] | | | [place] [address] | + + + | Home Phone | | + + + | Preferred Language | Unknown | + + + | Marital Status | | + + + | Episcopalian Affiliation | Unknown | + + + | Race | Unknown | + + + | Ethnic Group | Unknown | + + + Author + + + | Author | [facility] | | | and Jaden[place] | + + + | Organization | [facility] | | | and [...] | | | | | [place] [address] | | + + + + + Care Team Providers + +------+ + | Care Lithograph Designer Name | Role | Phone | + +------+ + | Shmuel Merrill | | + +------+ + Encounter Details +--------+ + + + + | Date | Type | Department | Care Team | Description | +--------+ + + + + | 06/12/ | Imaging | [facility] | Provider, | | | 2020 | Exam | [facility] | MD Elena [address] | | | | | IMAGING [address] | [address] | | | | | [address] [place] | [place] [address] | | | | | [place] [address] | | | | | | [phone] | | | +--------+ + + + [...] [place] | | | | | | [address] [...] + documented in this encounter Results CT Abdomen Pelvis wo Contrast (05/30/2019 12:00 [...]
--- OUTSIDE RECORDS SUMMARY | ~2019-08-23 | XMS | Encounter Summary ---
Demographics + + + | Address | [address] | | | [place] [address] | + + + | Home Phone | | + + + | Preferred Language | Unknown | + + + | Marital Status | | + + + | Islam Affiliation | Unknown | + + + | Race | Unknown | + + + | Ethnic Group | Unknown | + + + Author + + + | Author | [facility] | | | and [place] | + + + | Organization | [facility] [...] | | | | | [place] [address] | | + + + + + Care Team Providers + +------+ + | Care Drill Sharpener Name | Role | Phone | + +------+ + | Lexie Cagle | PCP | | | RESEARCH LAB ASSISTANT | | | + +------+ + Reason for Visit + + + | Reason | Comments | + + + | Follow-up | urge incontinence | + + + Encounter Details +--------+---------+ + + + | Date | Type | Department | Care Team | Description | +--------+---------+ + + + | 10/30/ | Office | [facility] | Michael Fernandes | Neurogenic bladder | | 2019 | Visit | [address] | MD Yaw [address] | (Primary Dx); Urge | | | | [place] | [address] [place] | incontinence; | | | | [address] | [address] | Intrinsic sphincter | | | | [phone] | | deficiency (ISD) | +--------+---------+ + + + Social History [...] + + + | Blood Pressure | 130/78 | 10/30/2018 9:54 AM | | | | | PDT | | + + + + + | Pulse | 66 | 10/30/2018 9:54 AM | | | | | PDT | | + + + + + | Temperature | - | - | | + + + + + | Respiratory Rate | 16 | 10/30/2018 9:54 AM | | | | | PDT | | + + + + + | Oxygen Saturation | - | - | | + + + + + | Inhaled Oxygen | - | - | | | Concentration | | | | + + + + + | Weight | 92 kg (202 lb 13.2 | 10/30/2018 9:54 AM | | | | oz) | PDT | | + + + + + | Height | 177.8 cm (5' 10") | 10/30/2018 9:54 AM | | | | | PDT | | + + + + + | Body Mass Index | 29.1 | 10/30/2018 9:54 AM | | | | | PDT | | + + + + + documented in this encounter Patient Instructions Patient Instructions Michael Fernandes MD - 10/30/2018 10:00 AM PDTIleal conduit documented in this encounter Progress Notes Michael Fernandes MD - 10/30/2018 10:00 AM PDTFormatting of this note might be differ ent from the original. Chief Complaint Patient presents with Follow-up urge incontinence HPI Mian Gelber is a 68 y.o. male patient of Lexie Cagle APRN here today for a follow u p for urge incontinence. MS-diagnosed in 1997, symptoms have been relatively stable with the exception of the bladde r History of neurogenic bladder detrusor instability with impaired contractility ISD Nephrolithiasis Patient is colonized with ESBL Patient recently underwent bladder Botox with 300 units administered. Patient states he has had no real improvement in either the incontinence nor the number of voids. He continues to suffer from significant large volume incontinence. He denies any gr oss hematuria as well as any flank pain, fever or chills. Assessment Mian was seen today for follow-up. Diagnoses and all orders for this visit: Neurogenic bladder Urge incontinence Intrinsic sphincter deficiency (ISD) Other orders - oxybutynin (DITROPAN-XL) 10 MG 24 hr tablet; Take 1 tablet by mouth 2 times daily. Plan Patient is failed multiple efforts to try and control his incontinence. We discussed [facility] surgical options including bladder augmentation with possible bladder neck closure as wel l as ileal conduit. These procedures were discussed in detail as well as the many possible complications and side effects. Greater than 15 minutes was spent [id number] with the patient and greater than 50% of the time was spent counseling the patient. Past Medical History Past Medical History: Diagnosis [...] catheter placement; Surgeon: Michael Fernandes MD; Location: [facility] MAIN OR CHOLECYCTOSTOMY CYSTOSCOPY N/A 04/19/2018 Procedure: Cystoscopy, bladder Botox, injection of urethral bulking agent; Surgeon: Gina Fernandes MD; Location: [facility] MAIN OR GASTRIC BYPASS SURGERY 2001 [...] capsule, Take by mouth., Disp: , Rfl: cholecalciferol (CHOLECALCIFEROL) 5000 units TABS, Take 5,000 Units by mouth Daily., D isp: , Rfl: oxybutynin (DITROPAN-XL) 10 MG 24 hr tablet, Take 1 tablet by mouth 2 times daily., Di sp: 60 tablet, Rfl: 3 oxyCODONE (ROXICODONE) 5 mg tablet, [...] mouth every evening, or as directed by provi ileana, Disp: 30 tablet, Rfl: 1 ROS Objective BP 130/78 | Pulse 66 | Resp 16 | Ht 1.778 m (5' 10") | Wt 92 kg (202 lb 13.2 oz) | BMI 29.10 kg/m General Appearance: Alert, cooperative, no distress, [...] orders placed or performed in visit on 10/29/18 External Lab: [facility] INR Result Value Ref Range INR, External 2.0 Lab Results Component Value Date CREA 0.84 [...] have not thoroughly proofread this note, and econometrician errors are very likely to occur. CC: Lexie Cagle APRN documented in this encounter Plan of Treatment +--------+---------+ + + + | Date | Type | Specialty | Care Team | Description | +--------+---------+ + + + | 11/12/ | Office | Sleep Medicine | Laith Sheffield PA | | | 2019 | Visit | | [address] | | | | | | [place] | | | | | | [address] | | | | | | | | +--------+---------+ + + + documented as of this encounter Visit Diagnoses + + | Diagnosis | + + | Neurogenic bladder - Primary Neurogenic bladder, NOS | + + | Urge incontinence | + + | Intrinsic sphincter deficiency (ISD) Intrinsic (urethral) sphincter deficiency (ISD) | + + documented in this encounter
--- OUTSIDE RECORDS SUMMARY | ~2019-08-23 | XMS | Encounter Summary ---
Demographics + + + | Address | [address] | | | [place] [address] | + + + | Home Phone | | + + + | Preferred Language | Unknown | + + + | Marital Status | Single | + + + | Religion Affiliation | TEMPLE | + + + [...] Team Providers + +------+ + | Care Knapsack Sprayer Name | Role | Phone | + +------+ + | Trevin Delacruz MD | PCP | | + +------+ + Reason for Visit +---------+ + | Reason | Comments | +---------+ + | Post Op | 03/03 Panniculectomy,new concern: none | +---------+ + Encounter Details +--------+---------+ + + + | Date | Type | Department | Care Team | Description | +--------+---------+ + + + | 03/23/ | Office | Plastic and | Neto Lockhart, | Intertriginous | | 2015 | Visit | Reconstructive | [address] | candidiasis (Primary | | | | Surgery at [facility] [address] | Dx); [facility] | | | | [address] | [place], [place] | surgery status | | | | Mailcode: [facility] | [address] | | | | | [facility] | [phone] | | | | | and Healing, | | | | | | Building [address], 5th | | | | | | Floor [place], [place] | | | | | | [address] | | | | | | [phone] | | | +--------+---------+ + + + [...] + + + | Blood Pressure | 144/76 | 03/23/2015 9:30 AM | | | | | PST | | + + + + + | Pulse | 61 | 03/23/2015 9:30 AM | | | | | PST | | + + + + + | Temperature | - | - | | + + + + + | Respiratory Rate | - | - | | + + + + + | Oxygen Saturation | 100% | 03/23/2015 9:30 AM | | | | | PST | | + + + + + | Inhaled Oxygen | - | - | | | Concentration | | | | + + + + + | Weight | 88 kg (193 lb 14.4 | 03/23/2015 9:30 AM | | | | oz) | PST | | + + + + + | Height | - | - | | + + + + + | Body Mass Index | 27.82 | 03/03/2015 6:00 AM | | | | | PST | | + + + + + documented in this encounter Patient Instructions Patient Instructions Neto Lockhart MD - 03/23/2015 4:15 PM PSTScar massages Continue to wear compression garment documented in this encounter Progress Notes Neto Lockhart MD - 03/23/2015 3:53 PM PSTI was present with the resident during the his tory and exam. I discussed the case with the resident and agree with the findings and plan as documented in the resident s note. Mian Marquez is a 65 year old male status post panniculectomy on 03/03/2015. Doing well. D rain removed. Start scar massages. Continue to wear compression garment. Follow-up in 2 w eeks for suture removal. Richy Duque MD PLASTIC AND RECONSTRUCTIVE SURGERY AT [facility] [address] Mail Code: [address] [place] [id number] Nasrin Arroyo MD - 03/23/2015 9:32 AM PST PLASTIC SURGERY POSTOPERATIVE NOTE Procedure: s/p panniculectomy on 03/03/2015 Attending Physician: Neto oLckhart MD Patient reports he is doing well. He is eating well, drinking well, getting around OK. He is having regular bowel movements, and pain is well controlled. Physical Exam: Last Vitals: BP 144/76 | Pulse 61 | Wt 87.952 kg (193 lb 14.4 oz) | SpO2 100% | BMI 27.82 k g/(m^2) APRYL output: serous. Patient reports only a small amount per day (~20 mL) PE: Alert, NAD Incision intact, clean dry, no erythema, no drainage, no dehiscence, with nylon sutures int act. No palpable fluid collections. Assessment and Plan: Mian Marquez is a 65 y.o. male s/p panniculectomy on 03/03/2015, doing well. Drain x [address], with small amount of serous output per day. Drain removed in clinic today Continue wearing compression garment through 6 weeks Nylons to remain in place, return to clinic for removal in 2 weeks. Nasrin Becerra MD Community Planner Department of Plastic Surgery [facility] 03/23/2015 9:32 AM documented in this e ncounter Plan of Treatment +--------+ + + + + | Date | Type | Specialty | Care Team | Description | +--------+ + + + + | 10/31/ | Appointment | Hematology & | Onc, Gen [address] | | | 2019 | | Oncology | [address] [place], | | | | | | [place] [address] | | +--------+ + + + + documented as of this encounter Visit Diagnoses + + | Diagnosis | + + | Intertriginous candidiasis - Primary Candidiasis of skin and nails | + + | [facility] surgery status Bariatric surgery status | + + documented in this encounter"
--- OUTSIDE RECORDS SUMMARY | ~2019-08-23 | XMS | Encounter Summary ---
Demographics + + + | Address | [address] | | | [place] [address] | + + + | Home Phone | | + + + | Preferred Language | Unknown | + + + | Marital Status | Single | + + + | Zoroastrianism Affiliation | AMISH | + + + | Race | [...] Team Providers + +------+ + | Care Circle Beveler Name | Role | Phone | + +------+ + | Trevin Dealcruz MD | PCP | | + +------+ [...] Parking | | 2016 | on | [facility] & | [address] | Permit) | | | | Healing [address] | [address] [facility], | | | | | [place] Mailcode: CH8C | [place] [address] | | | | | [facility] | [phone] | | | | | and Healing, | | | | | | Building [address] | | | | | | [facility], [place] | | | | | | [address] | | | | | | [phone] | | | +--------+ + + + [...] | | | | | | [place] [address] | | +--------+ + + + + documented as of this encounter Visit Diagnoses Not on filedocumented in this encounter"
--- OUTSIDE RECORDS SUMMARY | ~2019-08-23 | XMS | Encounter Summary ---
Demographics + + + | Address | [address] | | | [place] [address] | + + + | Home Phone [...] Author | [facility] | | | and Jadenana | + + + | Organization | [facility] | | | and aJdenana | + + + | Address | [...] | | | | | [place] [address] | | + + + + + Care Team Providers + +------+ + | Care Public Services Assistant Name | Role | Phone | + +------+ + | Lexie Cagle | PCP | | | GLOBAL COORDINATOR | | | + +------+ + Encounter Details +--------+ + + + + | Date | Type | Department | Care Team | Description | +--------+ + + + + | 05/21/ | Episode | [facility] | Manju Mccartney | | | 2018 | Changes | [address] | | | | | [place] | | | | | | [address] | | | | | | [phone] | | | +--------+ + + + [...]
--- OUTSIDE RECORDS SUMMARY | ~2019-08-23 | XMS | Encounter Summary ---
Demographics + + + | Address | [address] | | | [place] [address] | + + + | Home Phone | | + + + | Preferred Language | Unknown | + + + | Marital Status | | + + + | Mu-Ism Affiliation | Unknown | + + + | Race | Unknown | + + + | Ethnic Group | Unknown | + + + Author + + + | Author | [facility] | | | and Jadenana | + + + | Organization | [facility] | [...] | | | | | [place] [address] | | + + + + + Care Team Providers + +------+ + | Care Software Designer Name | Role | Phone | + +------+ + | Lexie Cagle | PCP | | | PAINTER RAILROAD CAR | | | + +------+ + Encounter Details +--------+ + + + + | Date | Type | Department | Care Team | Description | +--------+ + + + + | 10/26/ | Orders Only | [facility] | Lexie Cagle | Paroxysmal atrial | | 2019 | | MEDICINE [address] | [address] | fibrillation (HCC) | | | | [address] [place] | [address] [place] | (Primary Dx) | | | | [place] [address] | [place] [address] | | | | | [phone] | [phone] | | | | | | | [...] [place] | | | | | | [address] | | | | | | | | +--------+---------+ + + + documented as of this encounter Visit Diagnoses + + | Diagnosis | + + | Paroxysmal atrial fibrillation (HCC) - Primary Atrial fibrillation | + + documented in this encounter"
--- OUTSIDE RECORDS SUMMARY | ~2019-08-23 | XMS | Encounter Summary ---
Demographics + + + | Address | [address] | | | [place] [address] | + + + | Home Phone | | + + + | Preferred Language | Unknown | + + + | Marital Status | Single | + + + | Amish Affiliation | HINDU | + + + [...] Team Providers + +------+ + | Care Slurry Man Name | Role | Phone | + +------+ + | Jose Hameed MD | PCP | | + +------+ + Reason for Visit +--------+ + | Reason | Comments | +--------+ + | Other | MRI Results | +--------+ + Encounter Details +--------+ + + + + | Date | Type | Department | Care Team | Description | +--------+ + + + + | 01/07/ | Telephone | Neurology at | Christian Maldonado MD | Other (MRI Results) | | 2016 | | [place] for [facility] & | [address] | | | | | Healing [address] [place], | | | | | [place] Mailcode: MK8C | [place] [address] | | | | | [facility] | [phone] | | | | | and [place], | | | | | | [facility] | | | | | | [place], [place] | | | | | | [address] | | | | | | [phone] | | | +--------+ + + + [...] | | | | | | [place] [address] | | +--------+ + + + + documented as of this encounter Visit Diagnoses Not on filedocumented in this encounter"
--- OUTSIDE RECORDS SUMMARY | ~2019-08-23 | XMS | Encounter Summary ---
Demographics + + + | Address | [address] | | | [place] [address] | + + + | Home Phone | | + + + | Preferred Language | Unknown | + + + | Marital Status | Single | + + + | Bahai Affiliation | MOSQUE | + + + [...] Team Providers + +------+ + | Care Graduate Advisor Name | Role | Phone | + +------+ + | Trevin Delacruz MD | PCP | | + +------+ + Encounter Details +--------+ + + + + | Date | Type | Department | Care Team | Description | +--------+ + + + + | 06/02/ | Telephone | Digestive Health | Emilie Sanchez, | | | 2014 | | [place] at [facility] [address] | | | | | | [address] | | | | | | Mailcode: [place] | | | | | | [facility] Health and | | | | | | [facility], [facility] [address] | | | | | | [place], [place] | | | | | | [address] | | | | | | [phone] | | | +--------+ + + + [...] | | | | | | [place] [address] | | +--------+ + + + + documented as of this encounter Visit Diagnoses Not on filedocumented in this encounter"
--- OUTSIDE RECORDS SUMMARY | ~2019-08-23 | XMS | Encounter Summary ---
Demographics + + + | Address | [address] | | | [place] [address] | + + + | Home Phone | | + + + | Preferred Language | Unknown | + + + | Marital Status | Single | + + + | Oriental Orthodox Affiliation | MOSQUE | + + + | Race | White | + + + | Ethnic Group | Not or | + + + Author + + + | Author | [facility] | + + + | Organization | [facility] | + + + | Address | Unknown | + + + | Phone | Unavailable | + + + Support + + +---------+ + | Name | Relationship | Address | Phone | + + +---------+ + | Theodore Marquez | ECON | Unknown | | + + +---------+ + Care Team Providers + +------+ + | Care Continuous Absorption Process Operator Name | Role | Phone | [...] sclerosis | | 2016 | Visit | [facility] & | [address] | ([facility]) (Primary Dx); | | | | Healing [address] | [address] [place], | Vitamin B12 | | | | Ave Mailcode: CH8C | [place] [address] | deficiency; Iron | | | | [facility] | [phone] | deficiency; Vitamin | | | | and Healing, | | D deficiency | | | | Building | | | | | | Floor [place], [place] | | | | | | [address] | | | | | | [phone] | | | +--------+---------+ + + + [...] CLINIC Medical Problems 1. Multiple sclerosis Avonex 2997-5119 (treatment for 2 years) Rebif for 2.5 [...] of spinal stimulator INTERVAL HISTORY: Mr. Marquez [facility] for follow up. He reports that [...] R LE. Cerebel lar testing shows slowed fpnekm-sr-bjju and L hsis-rn-yxsl. He has difficulty with R heel-t o-liang. [...] | | | | | | [place] [address] | | +--------+ + + + + [...]
--- OUTSIDE RECORDS SUMMARY | ~2019-08-23 | XMS | Encounter Summary ---
Demographics + + + | Address | [address] | | | [place] [address] | + + + | Home Phone | | + + + | Preferred Language | Unknown | + + + | Marital Status | | + + + | Episcopal Affiliation | Unknown | + + + | Race | Unknown | + + + | Ethnic Group | Unknown | + + + Author + + + | Author | [facility] | | | and [place] | + + + | Organization | [facility] | | | and [...] | | | | | [place] [address] | | + + + + + Care Team Providers + +------+ + | Care Search Engine Optimization Specialist Name | Role | Phone | [...] + + + + | 02/20/ | Telephone | [facility] | Lexie Cagle | Lab Results | | 2019 | | MEDICINE [address] | [address] | | | | | Street [place] | [facility] | | | | | [place] [address] | [place] [address] | | | | | [phone] | [phone] | | | | | | | [...] 2020 | Visit | | [address] | | | | | | [place]CI[place] | | | | | | [address] | | | | | | | | +--------+---------+ + + + documented as of this encounter Visit Diagnoses Not on filedocumented in this encounter"
--- OUTSIDE RECORDS SUMMARY | ~2019-08-23 | XMS | Encounter Summary ---
Demographics + + + | Address | [address] | | | [place] [address] | + + + | Home Phone | | + + + | Preferred Language | Unknown | + + + | Marital Status | | + + + | Muslim Affiliation | Unknown | + + + | Race | Unknown | + + + | Ethnic Group | Unknown | + + + Author + + + | Author | [facility] | | | and [place]aden[place] | + + + | Organization | [facility] | | | and [...] | | | | | [place] [address] | | + + + + + Care Team Providers + +------+ + | Care Urban Designer Name | Role | Phone | + +------+ + | Lexie Cagle | PCP | | | DRIER FEEDER | | | + +------+ + Reason for Visit + + + | Reason | Comments | + + + | Confirmation | | + + + Encounter Details +--------+ + + + + | Date | Type | Department | Care Team | Description | +--------+ + + + + | 07/03/ | Telephone | [facility] | Lexie Cagle | Confirmation | | 2019 | | MEDICINE [address] | [address] | | | | | [address] | [facility] | | | | | [place] [address] | [place] [address] | | | | | [phone] | [phone] | | | | | | | [...] [place] | | | | | | [address] | | | | | | | | +--------+---------+ + + + documented as of this encounter Visit Diagnoses Not on filedocumented in this encounter"
--- OUTSIDE RECORDS SUMMARY | ~2019-08-23 | XMS | Encounter Summary ---
Demographics + + + | Address | [address] | | | [place] [address] | + + + | Home Phone | | + + + | Preferred Language | Unknown | + + + | Marital Status | Single | + + + | Mosque Affiliation | YARSANISM | + + + | Race | White | + + + | Ethnic Group | Not or | + + + Author + + + | Author | [facility] | + + + | Organization | [facility] | + + + | Address | Unknown | + + + | Phone | Unavailable | + + + Support + + +---------+ + | Name | Relationship | Address | Phone | + + +---------+ + | Theodore Marquez | ECON | Unknown | | + + +---------+ + Care Team Providers + +------+ + | Care Curb Setter Name | Role | Phone | + +------+ + | Trevin Delacruz MD | PCP | | + +------+ + Encounter Details +--------+ + + + + | Date | Type | Department | Care Team | Description | +--------+ + + + + | 08/27/ | Telephone | Digestive Health | Liliana Conteh, | | | 2014 | | [place] [facility] [address] | [facility] [address] | | | | | [address] | Ave [facility] [place] | | | | | Mailcode: [place] | [address] | | | | | [facility] and | [phone] | | | | | [facility], [place] [address] | | | | | | [place], [place] | | | | | | [address] | | | | | | | [...] | | | | | | [place] [address] | | +--------+ + + + + documented as of this encounter Visit Diagnoses Not on filedocumented in this encounter"
--- OUTSIDE RECORDS SUMMARY | ~2019-08-23 | XMS | Encounter Summary ---
Demographics + + + | Address | [address] | | | [place] [address] | + + + | Home Phone | | + + + | Preferred Language | Unknown | + + + | Marital Status | Single | + + + | Pentecostalism Affiliation | MORAVIAN | + + + | Race | [...] Team Providers + +------+ + | Care Astrophysics Teacher Name | Role | Phone | + +------+ + | Jose Hameed MD | PCP | | + +------+ + Encounter Details +--------+ + + + + | Date | Type | Department | Care Team | Description | +--------+ + + + + | 11/11/ | Abstract | Urology at [facility] | Shukri Olivier MD | | | 2017 | | [address] | [address] | | | | | Mailcode: CH10U | [facility] [place] | | | | | [facility] | [address] | | | | | and [place], | [phone] | | | | | | | | | | | Floor [place], [place] | | | | | | [address] | | | | | | [phone] | | | +--------+ + + + [...] | | | | | | [place] [address] | | +--------+ + + + + documented as of this encounter Visit Diagnoses Not on filedocumented in this encounter"
--- OUTSIDE RECORDS SUMMARY | ~2019-08-23 | XMS | Encounter Summary ---
Demographics + + + | Address | [address] | | | [place] [address] | + + + | Home Phone | | + + + | Preferred Language | Unknown | + + + | Marital Status | Single | + + + | Adventism Affiliation | EVANGELICAL | + + + | Race | White | + + + | Ethnic Group | Not or | + + + Author + + + | Author | [facility] | + + + | Organization | [facility] | + + + | Address | Unknown | + + + | Phone | Unavailable | + + + Support + + +---------+ + | Name | Relationship | Address | Phone | + + +---------+ + | Theodore Marquez | ECON | Unknown | | + + +---------+ + Care Team Providers + +------+ + | Care Turret Press Operator Name | Role | Phone | [...] as of this encounter Progress Notes Interface, Analyst Business Analysis In - 02/12/2006 3:07 AM PSTCLINIC DATE: [...] External genitalia prepped with Betadine and a 14-[place]izen [place] catheter was used to drain the bladder. This was replaced with a 7-[place]izen [place] dual-lumen urodynamics catheter. Electromyography pads were placed [...] purposes. Trevin Brown M.D. ML / HS [id number] / [id number] / [id number] / [id number] cc: Christian Maldonado M.D. Neurology, [id number] signed by Interface, Analyst Business Analysis In at 02/12/2006 3:07 AM PSTdocume nted [...] | | | | | | [place] [address] | | +--------+ + + + + documented as of this encounter Visit Diagnoses Not on filedocumented in this encounter"
--- OUTSIDE RECORDS SUMMARY | ~2019-08-23 | XMS | Encounter Summary ---
Demographics + + + | Address | [address] | | | [place] [address] | + + + | Home Phone [...] + | Author | [facility] | | | and Jadenana | + + + | Organization | [facility] | | [...] | | | | | [place] [address] | | + + + + + Care Team Providers + +------+ + | Care Hood Fitter Name | Role | Phone | + +------+ + | Lexie Cagle | PCP | | | BRASS BURNISHER | | | + +------+ + Reason for Visit +--------+ + | Reason | Comments | +--------+ + | Other | | +--------+ + Encounter Details +--------+ + + + + | Date | Type | Department | Care Team | Description | +--------+ + + + + | 06/22/ | Telephone | [facility] | Michael Fernandes | Georges | | 2019 | | [address] | MD [address] | | | | | PRECIOUS [place] | [place] | | | | | [address] | [address] | | | | | [phone] | | | +--------+ + + + [...] 2020 | Visit | | [address] | | | | | | [place]CIOUS [place] | | | | | | [address] | | | | | | | | +--------+---------+ + + + documented as of this encounter Visit Diagnoses Not on filedocumented in this encounter"
--- OUTSIDE RECORDS SUMMARY | ~2019-08-23 | XMS | Encounter Summary ---
Demographics + + + | Address | [address] | | | [place] [address] | + + + | Home Phone | | + + + | Preferred Language | Unknown | + + + | Marital Status | | + + + | Restorationism Affiliation | Unknown | + + + | Race | Unknown | + + + | Ethnic Group | Unknown | + + + Author + + + | Author | [facility] | | | and Jadenana | + + + | Organization | [facility] | | | and [...] | | | | | [place] [address] | | + + + + + Care Team Providers + +------+ + | Care Front Office Help Name | Role | Phone | + +------+ + | Lexie Cagle | PCP | | | RANGE MANAGEMENT SPECIALIST | | | + +------+ + Reason for Visit +--------+ + | Reason | Comments | +--------+ + | Other | | +--------+ + Encounter Details +--------+ + + + + | Date | Type | Department | Care Team | Description | +--------+ + + + + | 04/05/ | Telephone | [facility] | Michael Fernandes | Other | | 2020 | | [address] | MD [address] | | | | | PRECIOUS [place] | PRECIOUS [place] | | | | | [address] | [address] | | | | | [phone] | | | +--------+ + + + [...] 2020 | Visit | | [address] | | | | | | [place] | | | | | | [address] | | | | | | | | +--------+---------+ + + + documented as of this encounter Visit Diagnoses Not on filedocumented in this encounter"
--- OUTSIDE RECORDS SUMMARY | ~2019-08-23 | XMS | Encounter Summary ---
Demographics + + + | Address | [address] | | | [place] [address] | + + + | Home Phone | | + + + | Preferred Language | Unknown | + + + | Marital Status | Single | + + + | Mosque Affiliation | PROTESTANT | + + + [...] Team Providers + +------+ + | Care Serology Technician Name | Role | Phone | [...] | | | sclerosis | MD [address] | | | | | | ([facility]) Gait | [address] | | | | | | disorder | [place], [place] | | | | | | Procedures | [address] | | | | | | PHYSICAL | Phone: | | | | | | THERAPY | [phone] | | | | | | REFERRAL | Fax: | | | | | | | [phone] | | + +--------+ + + + [...] | | | | (multiple | [address] | | | | | | sclerosis) | [address] | | | | | | (HCC) | [place], [place] | | | | | | Procedures | [address] | | | | | | MRI BRAIN | Phone: | | | | | | MULTIPLE | [phone] | | | | | | SCLEROSIS | Fax: | | | | | | WWO CONTRAST | [phone] | | + +--------+ + + + [...] sclerosis | | 2019 | Visit | [facility] & | Shiloh Mukherjee MD | ([facility]) (Primary Dx); | | | | Healing [address] | [address] | 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 brain Physical Therapy Make a [...] by Dr. Hameed for Multiple sclerosis Avonex 2569-7986 (treatment for 2 years) Rebif for 2.5 [...] surgery here or with a surgeon in [place]. Had Ocrevus A ugust 2018 and had no issues. Feels going downhill since. Feels his memory loss since seen. Past Medical History: Diagnosis Date Back pain s/p surgery Depressive disorder, not elsewhere classified GERD (gastroesophageal reflux disease) severe 07/2014 Low ferritin iron infusions in past MS (multiple sclerosis) ([facility]) gait/ cognition issues Obesity CHRISTEN on CPAP Other and unspecified symptoms and signs involving general sensations and perceptions Restless legs Urinary retention self caths Current Outpatient Medications Medication Sig amantadine HCl 100 mg oral capsule Take 1 capsule by mouth two times daily. Indications : fatigue associated with multiple sclerosis Cholecalciferol, Vitamin D3, (VITAMIN D3) 5,000 unit oral tablet Take 5,000 Units by [facility] once daily. cyanocobalamin 1,000 [...] History: No dementia Social History: Moved to [facility] to be near grandchildren Social History Socioeconomic [...] file Gets together: Not on file Attends restorationism service: Not on file Active member of [...] the deltoid, triceps, biceps, inter ossei, opponens onsite health coach and abductor pollicis brevis, 4/5 RIGHT iliopsoas, quadriceps, hamstri ngs, dorsiflexion, plantar flexion, eversion, and inversion. Reflexes are 1+ symmetrically throughout. Toes are downgoing. Sensory exam is intact throughout to light touch, temperature, pinprick, vibration, and pro prioception in her toes. Cerebellar testing shows normal gxuerx-bs-fnak and zrwo-tz-yifx. On gait testing, he has a mildly [...] | | | | | | [place] [address] | | +--------+ + + + + [...] [facility] | [address] | [place] [address] | | | SERVICES, CORE | PARK [...] | + + + + + | [facility] | [address] | [place] [address] | | | SERVICES, CORE | [place] [...] | | | LABORATORY | | | [facility] | | | SERVICES, | | | [...] MDRD equation recommended by the National | [facility] | | Kidney Disease Education Program. Estimated [...] | + + + + + | [facility] | [address] | [place] [address] | | | [facility] | | | | | HEALTH + [...]
--- OUTSIDE RECORDS SUMMARY | ~2019-08-23 | XMS | Encounter Summary ---
Demographics + + + | Address | [address] | | | [place] [address] | + + + | Home Phone | | + + + | Preferred Language | Unknown | + + + | Marital Status | Single | + + + | Synagogue Affiliation | SABIANISM | + + + [...] Team Providers + +------+ + | Care Electric Motorman Name | Role | Phone | + +------+ + | Jose Hameed MD | PCP | | + +------+ + Reason for Visit + + + | Reason | Comments | + + + | Treatment Question | | + + + Encounter Details +--------+ + + + + | Date | Type | Department | Care Team | Description | +--------+ + + + + | 08/26/ | Telephone | Digestive Health | Emilie Sanchez, | Treatment Question | | 2015 | | [place] [address] [address] | | | | | | [address] | | | | | | Mailcode: [place] | | | | | | [facility] Health and | | | | | | [facility] [address] | | | | | | [place], [place] | | | | | | [address] | | | | | | [phone] | | | +--------+ + + + [...] | | | | | | [place] [address] | | +--------+ + + + + documented as of this encounter Visit Diagnoses Not on filedocumented in this encounter"
--- OUTSIDE RECORDS SUMMARY | ~2019-08-23 | XMS | Encounter Summary ---
Demographics + + + | Address | [address] | | | [place] [address] | + + + | Home Phone | | + + + | Preferred Language | Unknown | + + + | Marital Status | | + + + | Latter Day Affiliation | Unknown | + + + | Race | Unknown | + + + | Ethnic Group | Unknown | + + + Author + + + | Author | [facility] | | | and Jadenana | + + + | Organization | [facility] | | | [...] + + + + + | Zuleyma Aylaa | ECON | [address] | | | | | [place] [address] | | + + + + + Care Team Providers + +------+ + | Care Manager Card Name | Role | Phone | + +------+ + | Lexie Cagle | PCP | | | MANAGER MACHINE | | | + +------+ + Reason for Visit +--------+ + | Reason | Comments | +--------+ + | Other | | +--------+ + Encounter Details +--------+ + + + + | Date | Type | Department | Care Team | Description | +--------+ + + + + | 11/23/ | Telephone | [facility] | Lexie Cagle | Other | | 2019 | | MEDICINE [address] | [address] | | | | | [address] | [facility] | | | | | [place] [address] | [place] [address] | | | | | [phone] | [phone] | | | | | | | [...] 2020 | Visit | | [address] | | | | | | [place]CIOUS [place] | | | | | | [address] | | | | | | | | +--------+---------+ + + + documented as of this encounter Visit Diagnoses Not on filedocumented in this encounter"
--- OUTSIDE RECORDS SUMMARY | ~2019-08-23 | XMS | Encounter Summary ---
Demographics + + + | Address | [address] | | | [place] [address] | + + + | Home Phone | | + + + | Preferred Language | Unknown | + + + | Marital Status | | + + + | Samaritan Affiliation | Unknown | + + + | Race | Unknown | + + + | Ethnic Group | Unknown | + + + Author + + + | Author | [facility] | | | and Jadenana | + + + | Organization | [facility] | | | and [...] | | | | | [place] [address] | | + + + + + Care Team Providers + +------+ + | Care Lawn Mower Repairer Name | Role | Phone | + +------+ + | Shmuel Merrill PCP | | + +------+ + Reason for Visit + + + | Reason | Comments | + + + | CPAP Follow Up | | + + + Encounter Details +--------+ + + + + | Date | Type | Department | Care Team | Description | +--------+ + + + + | 06/26/ | Virtual | [facility] | Abdoulaye Bauer | CHRISTEN (obstructive | | 2020 | Office | SLEEP DISORDER [address] | MD [address] | sleep apnea) | | | Visit | [address] [place] | [address] [facility] | (Primary Dx); RLS | | | | [place] [address] | [place] [address] | (restless legs | | | | [phone] | [phone] | syndrome); 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 This is a telephone follow-up. Because of the COVID-19 Pandemic we are not doing any face to face visits. Apnea testing was performed June 20, 2019 using the WATCH-PAT technology which revealed a pAHI that was elevated at 14.1. The jose oxygen saturation was 79% of the patient spent 17 minutes with an oxygen saturation of less than or equal to 88%. The respiratory events were much more frequently seen in the supine position. Lab Results Component Value Date FERRITIN 356 (H) 06/05/2019 A: CHRISTEN: The patient clearly has significant obstructive sleep apnea. I reviewed the pathop hysiology of this with him again. I am advising trial of CPAP therapy. I discussed this wi th him in detail also. He is willing to do so. RLS: Patient's ferritin level was actually somewhat high. He should not receive iron therapy. I would like to see if his symptoms of restlessness in the legs might not improve with CPAP therapy thus at the present time I am not going to offer specific therapy for RLS . Insomnia: I have encouraged a regular wake time. I discourage napping in the daytime . I have encouraged him to go to bed at night only when sleepy. I am hopeful that treating his obstructive apnea with CPAP will help with his sleep fragmentation also. P: Resmed AirSense 10 autoset CPAP: 4-15cm while sleeping is faxed to in-home medical in [facility]. We will arrange for a telephone follow-up in 1 week with our clinical sleep educator. Like to see the patient in follow-up in 6 weeks at which time I am hopeful that we wi ll be doing bqgg-qx-fmej visits again. Clinical discussion length: 11-20 min ([id number]) Patient has not been seen in office within the past 7 days, and outcome of this call is not to recommend soonest available office visit. Participants: Patient Parts of this note were dictated using i4.ms voice recognition software. Occasional wrong - word or sound-alike substitutions may have occurred due to the inherent limitations of voi ce recognition software. Please read the chart carefully and recognize, using context, kade bello these substitutions have occurred. documented in th is encounter Plan of Treatment +--------+---------+ + + + | Date | Type | Specialty | Care Team | Description | +--------+---------+ + + + | 08/19/ | Office | Sleep Medicine | Laith Sheffield PA | | | 2019 | Visit | | [address] | | | | | | [place] | | | | | | [address] | | | | | | | | +--------+---------+ + + + documented as of this encounter Visit Diagnoses + + | Diagnosis | + + | CHRISTEN (obstructive sleep apnea) - Primary Obstructive sleep apnea (adult) (pediatric) | + + | RLS (restless legs syndrome) Restless legs syndrome (RLS) | + + | Organic insomnia Organic insomnia, unspecified | + + documented in this encounter"
--- OUTSIDE RECORDS SUMMARY | ~2019-08-23 | XMS | Encounter Summary ---
Demographics + + + | Address | [address] | | | [place] [address] | + + + | Home Phone | | + + + | Preferred Language | Unknown | + + + | Marital Status | | + + + | Restoration Affiliation | Unknown | + + + | Race | Unknown | + + + | Ethnic Group | Unknown | + + + Author + + + | Author | [facility] | | | and Jadenana | + + + | Organization | [facility] | | [...] | | | | | [place] [address] | | + + + + + Care Team Providers + +------+ + | Care Illuminator Name | Role | Phone | + +------+ + | Lexie Cagle | PCP | | | SECONDARY TEACHER | | | + +------+ + Reason [...] [place] | | | | | [place] | | [address] Phone: | | | | | INCISE/DRAIN | | [phone] | | | | | BLADDER | | Fax: | | | | | | | [phone] | +--------+--------+ + + + + Encounter Details +--------+ + + + + | Date | Type | Department | Care Team | Description | +--------+ + + + + | 06/20/ | Anesthesia | [facility] | Demarcus Veloz MD | | | 2019 | Event | MED CTR OR INTRA OP | [address] | | | | | [address] | [place], [place] | | | | | [place], [place] | [address] | | | | | [address] | | | | | | [phone] | | | +--------+ + + + + Anesthesia Record + + + + + | Procedure Name | Responsible | Anesthesia Start | Anesthesia Stop Time | | | Anesthesiologist | Time | | + + + + + | Cystoscopy, | Demarcus Veloz MD | 06/20/18915 | 06/20/18948 | | suprapubic catheter | | | [...] + + | 03 | 0 | | | | /2 | 9 | | | | 7/ | 0 | | | | 20 | 1 | | | | 19 | | | | +----+---+ + + | | 0 | An Checkout | Pre-use anesthesia machine/equipment checkout. | | | 9 | | | [...] | Wound | 06/20/18; 953; Incision; | 06/20/18953 by | | | | Bilateral; abdomen | Misael Lee RN | | +--------+ + + + | Periph | 06/20/18; 0837; Right; Forearm; | 06/20/18 0837 by | 06/20/18 1140 by | | eral | [id number]-[id number] catheter system; | Cate De Paz RN [...] | | | +--------+ + + + documented in this encounter Social [...] 11/12/ | Office | Sleep Medicine | Demarcus Sheffield PA | | | 2019 | Visit | | [address] | | | | | | [place] | | | | | | [address] | | | | | | | [...] for this | | | e | 9:29 AM | | procedure are in the | | | | PDT | | results section. | + +--------+ + + + documented in this encounter Results Anesthesia Airway Note (06/20/2018 9:29 AM PDT) + + + | Narrative | Performed At | + + + | Demarcus Veloz MD 06/20/2018 9:31 Anesthesia Airway Placement | | | 06/20/2018 9:21 Preprocedure check: patient identified, oxygen, | | | airway assessed, patient reassessment prior to induction, airway | | | equipment checked and suction Attempts: 1 Airway type: laryngeal | | | mask Size: 4 Cuffed: cuffed Trauma: none Tube placement | | | verification: bilateral chest rise and carbon dioxide detection | | | Performing provider: DEMARCUS VELOZ Electronically Signed by: | | | Demarcus Veloz MD ESig | | | date/time: 06/20/2018 9:29 | | + + + + + | Procedure Note | + + | Demarcus Veloz MD - 06/20/2018 9:29 AM PDT Anesthesia Airway Placement06/20/2018 | | 9:21Preprocedure check: patient identified, oxygen, airway assessed, patient | | reassessment prior to induction, airway equipment checked and suctionAttempts: 1Airway | | type: laryngeal maskSize: 4Cuffed: cuffedTrauma: noneTube placement verification: | | bilateral chest rise and carbon dioxide detectionPerforming provider: DEMARCUS VELOZ | | WElectronically Signed by: Demarcus Veloz MD ESi date/time: | | 06/20/2018 9:29 | |Cuffed: cuffed | |Trauma: none | |Tube placement verification: bilateral chest rise and carbon dioxide detection | |Performing provider: DEMARCUS VELOZ | | | | | |Electronically Signed by: Demarcus Veloz MD ESi date/time: 06/20 9:29 | | | + + documented in this encounter Visit Diagnoses Not on filedocumented in this encounter Administered Medications + +--------+ +------+------+------+ | Medication Order | MAR | Action | Dose | Rate | Site | | | Action | Date | | | | + +--------+ +------+------+------+ | ceFAZolin (ANCEF, KEFZOL) | Given | 06/21/19 | 2 g | | | | injection Intravenous, PRN, | | 19 9:16 | | | | | Starting Mon06/20/18 at 0916, | | AM PDT | | | | | Anesthesia Intra-op | | | | | | + +--------+ +------+------+------+ +---+---+ | | | +---+---+ + +-------+ +-------+---+---+ | dexamethasone (PF) 10 mg/mL | Given | 06/21/19 | 10 mg | | | | injection Intravenous, PRN, | | 19 9:28 | | | | | Starting Mon06/20/18 at 0928, | | AM PDT | | | | | Anesthesia Intra-op | | | | | | + +-------+ +-------+---+---+ +---+---+ | | | +---+---+ + +-------+ +---------+---+---+ | fentaNYL (PF) injection | Given | 06/21/19 | 100 mcg | | | | Intravenous, PRN, Pain, Starting | | 19 9:27 | | | | | 06/20/18 at 0927, Anesthesia | | AM PDT | | | | | Intra-op | | | | | | + +-------+ +---------+---+---+ +---+---+ | | | +---+---+ + +---------+ +---+---+---+ | lactated ringers (LR) infusion | New Bag | 06/21/19 | | | | | at 10-100 mL/hr, Intravenous, | | 19 9:16 | | | | | CONTINUOUS, Starting 06/20/18 | | AM PDT | | | | | at 0900, TKO., Pre-op | | | | | | + +---------+ +---+---+---+ +---+---+ | | | +---+---+ + +-------+ +------+---+---+ | ondansetron (ZOFRAN) injection | Given | 06/21/19 | 4 mg | | | | Intravenous, PRN, Nausea, | | 19 9:28 | | | | | Vomiting, Starting 06/20/18 at | | AM PDT | | | | | 0928, Anesthesia Intra-op | | | | | | + +-------+ +------+---+---+ +---+---+ | | | +---+---+ documented in this encounter"
--- OUTSIDE RECORDS SUMMARY | ~2019-08-23 | XMS | Encounter Summary ---
Demographics + + + | Address | [address] | | | [place] [address] | + + + | Home Phone | | + + + | Preferred Language | Unknown | + + + | Marital Status | Single | + + + | Denominational Affiliation | CHRISTIANITY | + + + [...] Team Providers + +------+ + | Care Cofferdam Construction Supervisor Name | Role | Phone | + +------+ + | Trevin Delacruz MD | PCP | | + +------+ + Reason for Visit + + + | Reason | Comments | + + + | Refill Request | | + + + Encounter Details +--------+--------+ + + + | Date | Type | Department | Care Team | Description | +--------+--------+ + + + | 10/20/ | Refill | Digestive Health | Liliana Conteh, | Refill Request | | 2014 | | Center at [facility] [address] | ACNP [address] | | | | | [address] | [address] [place], [place] | | | | | Mailcode: Center | [address] | | | | | [facility] and | | | | | | [facility] [address] | | | | | | [place], [place] | | | | | | [address] | | | | | | | [...] | | | | | | [place] [address] | | +--------+ + + + + documented as of this encounter Visit Diagnoses Not on filedocumented in this encounter"
--- OUTSIDE RECORDS SUMMARY | ~2019-08-23 | XMS | Encounter Summary ---
Demographics + + + | Address | [address] | | | [place] [address] | + + + | Home Phone | | + + + | Preferred Language | Unknown | + + + | Marital Status | Single | + + + | Yazidi Affiliation | BUDDHISM | + + + | Race | White | + + + | Ethnic Group | Not or | + + + Author + + + | Author | [facility] | + + + | Organization | [facility] | + + + | Address | Unknown | + + + | Phone | Unavailable | + + + Support + + +---------+ + | Name | Relationship | Address | Phone | + + +---------+ + | Theodore Marquez | ECON | Unknown | | + + +---------+ + Care Team Providers + +------+ + | Care Erosion Control Specialist Name | Role | Phone | + +------+ + | Trevin Delacruz MD | PCP | | + +------+ + Encounter Details +--------+ + + + + | Date | Type | Department | Care Team | Description | +--------+ + + + + | 04/01/ | Hospital | Registration HOV | | | | 2014 | Encounter | [address] | | | | | | [place] | | | | | | [place] [address] | | | +--------+ + + + [...] | | | | | | [place] [address] | | +--------+ + + + + documented as of this encounter Visit Diagnoses Not on filedocumented in this encounter"
--- OUTSIDE RECORDS SUMMARY | ~2019-08-23 | XMS | Encounter Summary ---
Demographics + + + | Address | [address] | | | [place] [address] | + + + | Home Phone | | + + + | Preferred Language | Unknown | + + + | Marital Status | | + + + | Advent Affiliation | Unknown | + + + | Race | Unknown | + + + | Ethnic Group | Unknown | + + + Author + + + | Author | [facility] | | | and Jadenana | + + + | Organization | [facility] | | | and Jadenana | [...] | | | | | [place] [address] | | + + + + + Care Team Providers + +------+ + | Care Area Manager Name | Role | Phone | + +------+ + | Lexie Cagle | PCP | | | LAP[place] | | | + +------+ + Reason for Referral Evaluate & Treat (Routine) +--------+ + + + + + | Status | Reason | Specialty | Diagnoses / | Referred By | Referred To | | | | | Procedures | Contact | Contact | +--------+ + + + + + | Closed | Specialty | Physical | Diagnoses | [place], | [facility] | | | Services | Therapy | | [facility] | | | Required | | Osteoarthrit | Phill, | PHYSICAL | | | | | is of both | [address]Y [address] | | | | | knees, | [address] | [place] | | | | | unspecified | [place], | [place], [place] | | | | | osteoarthrit | [place] | [address] | | | | | is type | [address] | Phone: | | | | | | Phone: | [phone] | | | | | | [phone] | Fax: | | | | | | Fax: | [phone] | | | | | | [phone] | | +--------+ + + + + [...] [place] | unspecified | | | | [place], [place] | [place] [address] | osteoarthritis type | | | | [address] | [phone] | (Primary Dx) | | | | [phone] | | | +--------+ + + + [...] [place] | | | | | | [address] | | | | | | | [...]
--- OUTSIDE RECORDS SUMMARY | ~2019-08-23 | XMS | Encounter Summary ---
Demographics + + + | Address | [address] | | | [place] [address] | + + + | Home Phone | | + + + | Preferred Language | Unknown | + + + | Marital Status | | + + + | Restoration Affiliation | Unknown | + + + | Race | Unknown | + + + | Ethnic Group | Unknown | + + + Author + + + | Author | [facility] | | | and Jadenana | + + + | Organization | [facility] [...] | | | | | [place] [address] | | + + + + + Care Team Providers + +------+ + | Care Well Logging Captain Mud Analysis Name | Role | Phone | + +------+ + | Lexie Cagle | PCP | | | EQUALIZING SAW OPERATOR | | | + +------+ + Reason for Visit + + + | Reason | Comments | + + + | Lab Results | | + + + Encounter Details +--------+ + + + + | Date | Type | Department | Care Team | Description | +--------+ + + + + | 01/22/ | Telephone | [facility] | Lexie Cagle | Lab Results | | 2019 | | MEDICINE [address] | [address] | | | | | [address] | [facility] | | | | | [place] [address] | [place] [address] | | | | | [phone] | [phone] | | | | | | | [...] [place] | | | | | | [address] | | | | | | | | +--------+---------+ + + + documented as of this encounter Visit Diagnoses Not on filedocumented in this encounter"
--- OUTSIDE RECORDS SUMMARY | ~2019-08-23 | XMS | Clinical Summary ---
Demographics + + + | Address | [address] | | | [place] [address] | + + + | Home Phone | | + + + | Preferred Language | Unknown | + + + | Marital Status | Single | + + + | Religion Affiliation | SYNAGOGUE | + + + | Race | White | + + + | Ethnic Group | Not or | + + + Author + + + | Author | [facility] | + + + | Organization | [facility] | + + + | Address | Unknown | + + + | Phone | Unavailable | + + + Support + + +---------+ + | Name | Relationship | Address | Phone | + + +---------+ + | Theodore Marquez | ECON | Unknown | | + + +---------+ + Care Team Providers + +------+ + | Care Manager Games Name | Role | Phone | + +------+ + | Jose Hameed MD | PCP | | + +------+ + Source Comments [facility] is fully live on both [facility] Allergies + + + + + + | Active Allergy | Reactions | Severity | Noted | Comments | | | | | Date | | + + + + + + | Adhesive Tape | Pruritus | | 11/07/19 | | | | | | 15 | | + + + + + + | Latex | Rash | High | 03/03/20 | | | | | | 15 | | + + + + + + Medications + + + +---------+------+------+-------+ | Medication | Sig | Dispensed | Refills | Star | End | Statu | | | | | | t | Date | s | | | | | | Date | | | + + + +---------+------+------+-------+ | NaCl 0.9 % solp | Inject into the | | 0 | | | Activ | | 500 mL with iron | vein (IV) once. | | | | | e | | dextran 100 mg/2 mL | Every 2 months | | | | | | | (50 mg/mL) soln | | | | | | | + + + +---------+------+------+-------+ | cyanocobalamin | Inject into the | | 0 | 09/2 | | Activ | | 1,000 mcg/mL | muscle (IM). | | | 9/20 | | e | | injection solution | | | | 14 | | | + + + +---------+------+------+-------+ | rOPINIRole 2 mg | Take 2 mg by mouth | | 0 | 10/2 | | Activ | | oral tablet | once daily in the | | | 320 | | e | | | evening. | | | 14 | | | + + + +---------+------+------+-------+ | iron sucrose 100 | Every other month | | 0 | 08 | | Activ | | mg iron/5 mL | | | | 12/14 | | e | | intravenous solution | | | | 15 | | | + + + +---------+------+------+-------+ | Cholecalciferol, | Take 5,000 Units by | | 0 | | | Activ | | Vitamin D3, (VITAMIN | mouth once daily. | | | | | e | | D3) 5,000 unit oral | | | | | | | | tablet | | | | | | | + + + +---------+------+------+-------+ | oxyCODONE, | Take 5 mg by mouth | | 0 | | | Activ | | immediate release, 5 | every six hours as | | | | | e | | mg oral tablet | needed. | | | | | | + + + +---------+------+------+-------+ | polyethylene | Mix in liquid and | | 0 | 10/0 | | Activ | | glycol 17 gram/dose | drink. | | | 3/20 | | e | | oral powder | | | | 18 | | | + + + +---------+------+------+-------+ | senna (SENNA) 8.6 | Take by mouth. | | 0 | 10/0 | | Activ | | mg oral tablet | | | | 3/20 | | e | | | | | | 18 | | | + + + +---------+------+------+-------+ | warfarin 5 mg oral | Take 5 mg by mouth | | 0 | | | Activ | | tablet | once daily. | | | | | e | + + + +---------+------+------+-------+ | DULoxetine 60 mg | Take 1 capsule by | 30 | 2 | 09/2 | | Activ | | oral capsule,delayed | mouth once daily. To | capsule | | 3/20 | | e | | release(DR/EC) | be taken with 30mg | | | 19 | | | | | capsule for total | | | | | | | | daily dose of 90mg | | | | | | + + + +---------+------+------+-------+ | ocrelizumab | Inject into the vein | | 0 | | | Activ | | (OCREVUS IV) | (IV). | | | | | e | + + + +---------+------+------+-------+ | traZODone 100 mg | Take 2 tablets by | 60 | 2 | 02/1 | | Activ | | oral | mouth once daily at | tablet | | 4/20 | | e | | tabletIndications: | bedtime. 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 | + + + | LAP-BAND surgery status | 07/03/2014 | + + + | GERD (gastroesophageal reflux disease) | 07/03/2014 | + + + | Intertriginous candidiasis | 07/03/2014 | + + + | Senile nuclear sclerosis | 04/08/2014 | + + + | Color blindness, 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 | + + + | Backache | 03/12/2014 | + + + | Chronic fatigue syndrome | 03/10/2014 | + + + | Low back pain | 03/10/2014 | + + + + + | Overview: Overview: | | S/p surgery 01/2013 | + + + + + | Thoracic or lumbosacral neuritis or radiculitis | 03/10/2014 | + + + | Pulmonary embolism and infarction | 03/10/2014 | + + + + + | Overview: Overview: | | 1979 | + + + + + | Major depression | 02/19/2014 | + + + | Anxiety associated with depression | 02/19/2014 | + + + | Multiple sclerosis | 02/19/2014 | + + + | Iron deficiency | 02/19/2014 | + + + | Vitamin B12 deficiency | 02/19/2014 | + + + | Back pain, chronic | 02/19/2014 | + + + | Neurogenic bladder | 02/19/2014 | + + + | Persistent depressive disorder | 12/23/2013 | + + + + + | Overview: Overview: Pertinent history and current treatment | | plan : 12/23/2013: office visit (Trevin Delacruz M.D.)..... | | New pt: Pt on daily Zoloft and as needed Xanax; pt takes "at | | most" 10-15 tabs per month01/16/2014 Resume sertraline, working | | up to his prior dose of 150mg daily............Jose Smith | | Assessment & Plan: Pertinent history and current treatment plan : | | 12/23/2013: office visit (Trevin Delacruz M.D.)..... New pt: | | Pt on daily Zoloft and as needed Xanax; pt takes "at most" | | 10-15 tabs per monthHistory of Present Illness:Pt ran out of his | | sertraline. Not clear why he has not made request for refills | | prior this appt but he is asking for that know.Assessment & | | Plan:Resume sertraline, working up to his prior dose of 150mg | | daily | |Resume sertraline, working up to his prior dose of 150mg daily | | | | | + + Family History + + +------+ + | Medical History | Relation | Name | Comments | + + +------+ + | Glasses | Brother | | | + + +------+ + | Glasses | Father | | | + + +------+ + | Glasses | Mother | | | + + +------+ + + +------+--------+ + | Relation | Name | Status | Comments | + +------+--------+ + | Brother | | | | + +------+--------+ + | Father | | | | + +------+--------+ + | Mother | | | | + +------+--------+ + Social History + +-------+ +--------+------+ | [...] + + + + Plan of Treatment +--------+ + + + + | Date | Type | Specialty | Care Team | Description | +--------+ + + + + | 10/31/ | Appointment | Hematology & | Onc, [address] | | | 2020 | | Oncology | [place], | | | | | | [place] [address] | | +--------+ + + + + + + + + + | Health Maintenance | Due Date | Last Done | Comments | + + + + + | Pneumococcal | | 06/29/2017, 12/26/2015, | | | vaccination (2 | 7 | 09/01/2015, Additional history | | | - PPSV23) | | exists | | + + + + + | Influenza (Flu) | | 02/07/2018, 03/27/2017, | | | vaccination (Season | 0 | 01/26/2017, Additional history | | | Ended) | | exists | | + + + + + | Creatinine | | 01/23/2019, 09/19/2016, | | | | 0 | 01/06/2016, Additional history | | | | | exists | | + + + + + | ELECTROLYTES | | 01/23/2019, 09/19/2016, | | | | 0 | 03/15/2004, Additional history | | | | | exists | | + + + + + | LIVER FUNCTION TEST | | 01/23/2019, 09/19/2016, | | | | 0 | 02/03/2015, Additional history | | | | | exists | | + + + + + Implants + +------+------+ +--------+--------+--------+ | Implanted | Type | Area | Manufacture | Device | Shelf | Model | | | | | r | | Expira | / | | | | | | Identi | tion | Serial | | | | | | fier | Date | / Lot | + +------+------+ +--------+--------+--------+ | Lead-12/27/2017Implanted: | LEAD | | | | | [id number] | | 12/27/2017 by [employer], | | | | | | 5 / | | Diogo Frank MD (Quantity not on | | | | | | /[id number] | | file) | | | | | | [id number] | + +------+------+ +--------+--------+--------+ | Spinal Cord | | | MEDTRONIC | | | INTELL | | Stimulator-12/27/2017Implanted | | | | | | IS | | : Qty: 1 on 12/27/2017 by | | | | | | [id number] | | Diogo Fregoso MD | | | | | | /[id number] | | | | | | | | [id number] | | | | | | | | / | + +------+------+ +--------+--------+--------+ + + | Description:Spinal cord | | stimulator, MRI conditional | | 1.5T. Verified full-body | | eligible per Medtronic rep. | | </=2.0W/kg whole body DEANGELO, | | head DEANGELO </=3.2W/kg. Spatial | | gradient 19T/m maximum. Scan | | duration should not exceed 30 | | minutes of active scan time | | within a 90-minute window. | + + + +------+-------+ +--------+--------+--------+ | Explanted | Type | Area | Manufacture | Device | Shelf | Model | | | | | r | | Expira | / | | | | | | Identi | tion | Serial | | | | | | fier | Date | / Lot | + +------+-------+ +--------+--------+--------+ | Lead Kit-11/16/2016Implanted: | LEAD | Spine | | | | [id number] | | 11/16/2016 by [employer], | | | | | | 5 / | | Diogo Frank MD (Quantity not on | | | | | | /[id number] | | file) | | | | | | [id number] | + +------+-------+ +--------+--------+--------+ | Spinal Cord | | | | | | NEVRO | | Stimulator-11/16/2016Implanted | | | | | | [id number] | | : Qty: 1 on 11/16/2016 by | | | | | | 00 | | Diogo Fregoso MD | | | | | | /[id number] | | | | | | | | | | | | | | | | /[id number] | | | | | | | | 13 | + +------+-------+ +--------+--------+--------+ | Lead Adaptor | | | | | | [id number] | | Kit-11/16/2016Implanted: | | | | | | [id number] | | 11/16/2016 by [employer], | | | | | | / | | Diogo Frank MD (Quantity not on | | | | | | /[id number] | | file) | | | | | | 795 | + +------+-------+ +--------+--------+--------+ + + | Description:Adaptor | | connecting Medtronic leads to | | IPG Nevro spinal cord | | stimulator. Per Nevro | | pharmacy sales representative, this is NOT | | MRI compatible. | + + Results Not on filefrom Last 3 Months Insurance + +--------+ +--------+ + +--------+ | Payer | Benefi | Subscriber | Effect | Phone | Address | Type | | | t Plan | ID | amaury | | | | | | / | | Dates | | | | | | Group | | | | | | + +--------+ +--------+ + +--------+ | MEDICARE | MEDICA | xxxxxxxxxxx | 09/25/19 | [phone] | [address] | Medica | | | RE A & | | 08-Pre | 1 | [phone] | [address] | | | B | | sent | | [place] | | | | | | | | [address] | | + +--------+ +--------+ + +--------+ | [employer] | AARP | xxxxxxxxxxx | 09/25/19 | [phone] | [address] | Indemn | | RETIRED PEOPLE | | | 18-Pre | [phone] [id number] | ity | | | | | sent | | [place], [place] | | | | | | | | [address] | | + +--------+ +--------+ + +--------+ + +--------+ +--------+ + + | Guarantor Name | Accoun | Relation to | Date | Phone | Billing Address | | | t Type | Patient | of | | | | | | | | | | + +--------+ +--------+ + + | Mian Marquez | Person | Self | [birth year] | [address] | | | al/Fam | | 1950 | [phone] | [place] | | | [place] | | | 9 (Home) | [address] | + +--------+ +--------+ + + | Mian Marquez | Psych | Self | [birth year] | [address] . | | | | | 1950 | [phone] | [place] | | | | | | 9 ([place]) | [address] | + +--------+ +--------+ + + Advance Directives + + + + + | Code Status | Date | Date | Comments | | | Activated | Inactivated | | + + + + + | Full Code | 03/03/2015 | 03/03/2015 | | | | 6:08 AM | 6:23 PM | | + + + + + + + + +---+ | | | | | + + + +---+ | Full Code | 11/06/2014 | 11/06/2014 | | | | 1:32 PM | 8:57 PM | | + + + +---+ + + + +---+ | | | | | + + + +---+ | Full Code | 11/06/2014 | 11/06/2014 | | | | 1:28 PM | 1:32 PM | | + + + +---+ + + + +---+ | | | | | + + + +---+ | Full Code | 08/21/2014 | 08/21/2014 | | | | 2:46 PM | 9:44 PM | | + + + +---+
--- OUTSIDE RECORDS SUMMARY | ~2019-08-23 | XMS | Encounter Summary ---
Demographics + + + | Address | [address] | | | [place] [address] | + + + | Home Phone | | + + + | Preferred Language | Unknown | + + + | Marital Status | | + + + | Sabianism Affiliation | Unknown | + + + | Race | Unknown | + + + | Ethnic Group | Unknown | + + + Author + + + | Author | [facility] | | | and Jadenana | + + + | Organization | [facility] | | [...] | | | | | [place] [address] | | + + + + + Care Team Providers + +------+ + | Care Housekeeping Manager Name | Role | Phone | + +------+ + | Lexie Cagle | PCP | | | ORACLE DISTRIBUTION CONSULTANT | | | + +------+ + Reason for Visit + + + | Reason | Comments | + + + | Referral | | + + + Encounter Details +--------+ + + + + | Date | Type | Department | Care Team | Description | +--------+ + + + + | 10/05/ | Telephone | [facility] | Trevin Xiao | Referral | | 2019 | | ORTHOPEDIC SURGERY | [address] | | | | | [address] | [facility] | | | | | [place], [place] | [place] [address] | | | | | [address] | [phone] | | | | | [phone] | | | +--------+ + + + [...] 2020 | Visit | | [address] | | | | | | [place] | | | | | | [address] | | | | | | | | +--------+---------+ + + + documented as of this encounter Visit Diagnoses Not on filedocumented in this encounter"
--- OUTSIDE RECORDS SUMMARY | ~2019-08-23 | XMS | Encounter Summary ---
Demographics + + + | Address | [address] | | | [place] [address] | + + + | Home Phone [...] | Author | [facility] | | | and Jadenana | + + + | Organization | [facility] [...] | | | | | [place] [address] | | + + + + + Care Team Providers + +------+ + | Care Corporate Legal Manager Name | Role | Phone | + +------+ + | Lexie Cagle | PCP | | | RECOVERY RN | | | + +------+ + Reason for Visit +--------+ + | Reason | Comments | +--------+ + | LABS | | +--------+ + Encounter Details +--------+ + + + + | Date | Type | Department | Care Team | Description | +--------+ + + + + | 10/11/ | Telephone | [facility] | Lexie Cagle | LABS | | 2019 | | MEDICINE [address] | [address] | [address] | | | [address] | [facility] | | | | | [place] [address] | [place] [address] | | | | | [phone] | [phone] | | | | | | | [...] 2020 | Visit | | [address] | | | | | | [place] | | | | | | [address] | | | | | | | | +--------+---------+ + + + documented as of this encounter Visit Diagnoses Not on filedocumented in this encounter"
--- OUTSIDE RECORDS SUMMARY | ~2019-08-23 | XMS | Encounter Summary ---
Demographics + + + | Address | [address] | | | [place] [address] | + + + | Home Phone | | + + + | Preferred Language | Unknown | + + + | Marital Status | Single | + + + | Muslim Affiliation | PENTECOSTALISM | + + + | Race | White | + + + | Ethnic Group | Not or | + + + Author + + + | Author | [facility] | + + + | Organization | [facility] | + + + | Address | Unknown | + + + | Phone | Unavailable | + + + Support + + +---------+ + | Name | Relationship | Address | Phone | + + +---------+ + | Theodore Marquez | ECON | Unknown | | + + +---------+ + Care Team Providers + +------+ + | Care Director Investment Banking Name | Role | Phone | + +------+ + | Jose Hameed MD | PCP | | + +------+ + Encounter Details +--------+------+ + + + | Date | Type | Department | Care Team | Description | +--------+------+ + + + | 01/23/ | Lab | Laboratory at [facility] | | Multiple sclerosis | | 2019 | | [address] | | [facility] Familial | | | | [place], [place] | | hypophosphatemia | | | | [address] | | | | | | [phone] | | | +--------+------+ + + + Social History [...] | | 2020 | | Oncology | [place], | | | | | | [place] [address] | | +--------+ + + + + documented as of this encounter Procedures + +--------+ + + + | Procedure Name | Priori | Date/Time | Associated Diagnosis | Comments | | | ty | | | | + +--------+ + + + | CBC AND AUTO DIFF | Routin | 01/23/2019 | Multiple sclerosis | Results for this | | | e | 1:20 PM | (HCC) | procedure are in the | | | | PDT | | results section. | + +--------+ + + + | CBC, WITH | Routin | 01/23/2019 | Multiple sclerosis | Results for this | | DIFFERENTIAL | e | 1:20 PM | (HCC) | procedure are in the | | | | PDT | | results section. | + +--------+ + + + | VITAMIN D, | Routin | 01/23/2019 | Familial | Results for this | | 25-HYDROXY, SERUM | e | 1:20 PM | hypophosphatemia | procedure are in the | | | | PDT | Multiple sclerosis | results section. | | | | | (HCC) | | + +--------+ + + + | COMPLETE METABOLIC | Routin | 01/23/2019 | Multiple sclerosis | Results for this | | SET | e | 1:20 PM | (HCC) | procedure are in the | | (NA,K,CL,CO2,BUN,CRE | | PDT | | results section. | | AT,GLUC,CA,AST,ALT,B | | | | | | LILY TOTAL,ALK | | | | | | PHOS,ALB,PROT TOTAL) | | | | | + +--------+ + + + | VITAMIN B-12 | Routin | 01/23/2019 | Multiple sclerosis | Results for this | | | e | 1:20 PM | (HCC) | procedure are in the | | | | PDT | | results section. | + +--------+ + + + documented in this encounter Results CBC AND AUTO DIFF (01/23/2019 1:20 PM PDT) + + + + + + | Component | Value | Ref Range | Performed | Pathologist | | | | | At | Signature | + + + + + + | WHITE CELL | 7.65 | 3.50 - 10.80 | [facility] | | | COUNT | | K/cu mm | LABORATORY | | | | | | SERVICES, | | | | | | [facility] | | | | | | [facility] | | + + + + + + | RED CELL | 4.35 (L) | 4.50 - 6.00 | [facility] | | | COUNT | | M/cu mm | LABORATORY | | | | | | SERVICES, | | | | | | [facility] + | | | | | | [facility] | | + + + + + + | HEMOGLOBIN | 13.9 | 13.5 - 17.5 | [facility] | | | | | g/dL | LABORATORY | | | | | | SERVICES, | | | | | | [facility] + | | | | | | [facility] | | + + + + + + | HEMATOCRIT | 43.4 | 41.0 - 53.0 % | [facility] | | | | | | LABORATORY | | | | | | SERVICES, | | | | | | [facility] + | | | | | | [facility] | | + + + + + + | MCV | 99.8 | 80.0 - 100.0 fL | [facility] | | | | | | LABORATORY | | | | | | SERVICES, | | | | | | [facility] + | [facility] | | | | [facility] | | + + + + + + | MCHC | 32.0 | 32.0 - 36.0 | [facility] | | | | | g/dL | LABORATORY | | | | | | SERVICES, | | | | | | [facility] + | | | | | | [facility] | | + + + + + + | RDW SD | 49.6 (H) | 35.1 - 46.3 fL | [facility] | | | | | | LABORATORY | | | | | | SERVICES, | | | | | | [facility] + | | | | | | [facility] | | + + + + + + | PLATELET | 272 | 150 - 400 K/cu | [facility] | | | COUNT | | mm | LABORATORY | | | | | | SERVICES, | | | | | | [facility] + | | | | | | [facility] | | + + + + + + | MPV | 10.3 | 9.7 - 12.3 fL | [facility] | | | | | | LABORATORY | | | | | | SERVICES, | | | | | | [facility] + | | | | | | [facility] | | + + + + + + | NRBC% | 0.0 | 0.0 - 0.3 % | [facility] | | | | | | LABORATORY | | | | | | SERVICES, | | | | | | [facility] + | | | | | | [facility] | | + + + + + + | NRBC# | 0.00 | 0.00 - 0.02 | [facility] | | | | | K/cu mm | LABORATORY | | | | | | SERVICES, | | | | | | [facility] + | | | | | | [facility] | | + + + + + + | NEUTROPHIL | 66.5 | 50.0 - 70.0 % | [facility] | | | % | | | LABORATORY | | | | | | SERVICES, | | | | | | [facility] + | | | | | | [facility] | | + + + + + + | LYMPHOCYTE | 14.6 (L) | 18.0 - 42.0 % | [facility] | | | % | | | LABORATORY | | | | | | SERVICES, | | | | | | [facility] + | | | | | | [facility] | | + + + + + + | MONOCYTE % | 13.5 (H) | 3.5 - 9.0 % | [facility] | | | | | | LABORATORY | | | | | | SERVICES, | | | | | | [facility] + | | | | | | [facility]AL[facility] | | + + + + + + | EOS % | 3.7 (H) | 1.0 - 3.0 % | [facility] | | | | | | LABORATORY | | | | | | SERVICES, | | | | | | [facility] + | | | | | | [facility]AL[facility] | | + + + + + + | BASO % | 1.0 | 0.0 - 2.0 % | [facility] | | | | | | LABORATORY | | | | | | SERVICES, | | | | | | [facility] + | | | | | | [facility] | | + + + + + + | IG% | 0.7 | 0.0 - 1.0 % | [facility] | | | | | | LABORATORY | | | | | | SERVICES, | | | | | | [facility] + | | | | | | [facility]ALING | | + + + + + + | NEUTROPHIL | 5.09 | 1.80 - 7.70 | [facility] | | | # | | K/cu mm | LABORATORY | | | | | | SERVICES, | | | | | | [facility] + | | | | | | [facility]AL[facility] | | + + + + + + | NEUTROPHIL | 5.09Comment: Preliminary | 1.80 - 7.70 | [facility] | | | # Prelim | automated neutrophil | K/cu mm | LABORATORY | | | | result. Refer to | | SERVICES, | | | | Neutrophil # for final | | [facility] | | | | neutrophil result, which | | HEALTH + | | | | may differ from this | | HEALING | | | | preliminary value. | | | | + + + + + + | LYMPHOCYTE | 1.12 | 1.00 - 4.80 | [facility] | | | # | | K/cu mm | LABORATORY | | | | | | SERVICES, | | | | | | [facility] | [facility] + | | | | | | [facility]ALING | | + + + + + + | MONOCYTE # | 1.03 (H) | 0.10 - 0.90 | [facility] | | | | | K/cu mm | LABORATORY | | | | | | SERVICES, | | | | | | [facility] | [facility] + | | | | | | [facility]ALING | | + + + + + + | EOS # | 0.28 | 0.00 - 0.50 | [facility] | | | | | K/cu mm | LABORATORY | | | | | | SERVICES, | | | | | | [facility] | [facility] + | | | | | | [facility]ALING | | + + + + + + | BASO # | 0.08 | 0.00 - 0.10 | [facility] | | | | | K/cu mm | LABORATORY | | | | | | SERVICES, | | | | | | [facility] | | | | [facility] + | | | | | | HEALING | | + + + + + + | IG# | 0.05 | 0.00 - 0.10 | [facility] | | | | | K/cu mm | LABORATORY | | | | | | SERVICES, | | | | | | [facility] | | [facility] + | | | | | | HEALING | | + + + + + + + + | Specimen | + + | Blood - Blood | | (substance) | + + + + + | Narrative | Performed At | + + + | Increased immature granulocytes (IG) define a left shift. Immature | [facility] | | granulocytes (IG) are an automated count of metamyelocytes, myelocytes | LABORATORY | | and promyelocytes. Bands are not included in the IG count. Bands are | SERVICES, | | included in the neutrophil count. | [facility] + | | | [facility]ALING | + + + + + + + + | Performing | Address | City/State/Zipcode | Phone Number | | Organization | | | | + + + + + | [facility] | [address] | [place] [address] | | | [facility] | | | | | HEALTH + HEALING | | | | + + + + + VITAMIN D, 25-HYDROXY, SERUM (01/23/2019 1:20 PM [...] LABORATORY | | | | | | [facility], | | | | | | CORE [...] [facility] | [address] | [place] [address] | | | SERVICES, CORE | PARK [...] | + + + + + | [facility] | [address] | [place] [address] | | | SERVICES, CORE | PARK [...] | | | LABORATORY | | | [facility] | | | SERVICES, | | | [...] MDRD equation recommended by the National | [facility] | | Kidney Disease Education Program. Estimated [...] | + + + + + | [facility] | [address] | [place] [address] | | | [facility] | | | | | HEALTH + HEALING | | | | + + + + + documented in this encounter Visit Diagnoses + + | Diagnosis | + + | Multiple sclerosis (HCC) Multiple sclerosis | + + | Familial hypophosphatemia Disorders of phosphorus metabolism | + + documented in this encounter"
--- OUTSIDE RECORDS SUMMARY | ~2019-08-23 | XMS | Encounter Summary ---
Demographics + + + | Address | [address] | | | [place] [address] | + + + | Home Phone | | + + + | Preferred Language | Unknown | + + + | Marital Status | Single | + + + | Denominational Affiliation | RELIGIOUS | + + + [...] Team Providers + +------+ + | Care Benefits Clerk Name | Role | Phone | [...] Mailcode: | | | | | | [place], [place] | [address] | | | | | (gastroesoph | [address] | for Health | | | | | ageal reflux | Phone: | and Healing, | | | | | disease) | [phone] | [address] | | | | | Procedures | Fax: | [place], [place] | | | | | CONSULT TO | [phone] | [address] | | | | | GI PROCEDURE | | Phone: | | | | | UNIT: EGD | | [phone] | | | | | NM UPPER GI | | Fax: | | | | | ENDOSCOPY,BI | | [phone] | | | | | OPSY | [...] | | | after RYGB | | [place] for | | | | | [address]ob[address] | | Health and | | | | | | | Healing, | | | | | | | Building [address] | | | | | | | [place], [place] | | | | | | | [address] | | | | | | | Phone: | | | | | | | | | | | | | | Fax: | | | | | | | [phone] | +--------+--------+ + + + + Encounter Details +--------+---------+ + + + | Date | Type | Department | Care Team | Description | +--------+---------+ + + + | 07/03/ | Office | Digestive Health | Liliana Conteh, | LAP-BAND surgery | | 2015 | Visit | Center at [facility] [address] | [address] | status (Primary Dx); | | | | [address] | Ave [place], [place] | GERD | | | | Mailcode: Center | [address] | (gastroesophageal | | | | for Health and | | reflux disease); | | | | Healing, Building 2 | | Intertriginous | | | | [place], [place] | | candidiasis; | | | | [address] | | Osteoporosis; MS | | | [...] INITIAL VISIT Provider: Liliana Berry DNP, MILANAP, CANE FEEDER Referring Provider: Unknown Reason for Requested Consultation: Mian Marquez has a history of Benito en y Gastric Bypass at [facility] in 2005, moved to [facility] and had a lap band Placed for [...] 2011 before h e moved back to [place]. The port is midline. He has a [...] in activity. Social recently moved back to [place] Lives at his brothers house Has a [...] assist in making the best recommendations for buttermilk drier operator treatment. 2. Plastic surgery: I am recommending [...] with the surgeon. Liliana Berry DNP, ACNP, CANE FEEDER Nurse Practitioner for Bariatric Surgery [facility] | [address] | [place], [place] | [address] | Potential Contraindications to Bariatric Surgery Age [...] other providers does not guarantee that the [facility] Bariatric Surger y program will deem you [...] | | | | | | [place] [address] | | +--------+ + + + + [...] | | | | | PROCEDURE: A accounts payable bookkeeper film | | | | | | [...] The | | | | | | accounts payable bookkeeper film demonstrated | | | | | | surgical suture in the | | | | | | left upper abdomen. A | | | | | | lapband was evident. | | | | | | Thoracolumbar spinal | | | | | | hardware was noted from | | | | | | prior [id number]. | | | | | | Dorsal [...] | | | | | signed / SNACHEZ HOFFMAN | | | | | | [...] | + + + + + | [facility] | [address] | [place] [address] | | | SERVICES, CORE | [address] [...] [facility] | [address] | [place] [address] | | | SERVICES, SPECIAL | PARK [...] | + + + + + | [facility] | [address] | [place] [address] | | | SERVICES, SPECIAL | EULALIA [...] | | | | | S S I-J-[id number] +P.P | | | | | | [...] by | | | | | | [address] | | | | | | Fabi Alfonso, [facility] | | | | | | [address] | | | | | | [phone].[email or web address]. | | | | | | Quoc [...] [facility] | [address] | [place], [place] | | | [facility] | | [address] | | + + + + + [...]
--- OUTSIDE RECORDS SUMMARY | ~2019-08-23 | XMS | Encounter Summary ---
Demographics + + + | Address | [address] | | | [place] [address] | + + + | Home Phone | | + + + | Preferred Language | Unknown | + + + | Marital Status | | + + + | Hoahaoism Affiliation | Unknown | + + + | Race | Unknown | + + + | Ethnic Group | Unknown | + + + Author + + + | Author | [facility] | | | and Jadenana | + + + | Organization | [facility] | | [...] | | | | | [place] [address] | | + + + + + Care Team Providers + +------+ + | Care Shrinker Name | Role | Phone | + +------+ + | Lexie Cagle | PCP | | | ORDER PROCESSOR | | | + +------+ + Reason [...] right lower | Ar[place], | [address] | | | | | extremity | ORDER PROCESSOR [address] | [place], | | | | | Paroxysmal | [address] | [place] | | | | | atrial | [place], | [address] | | | | | fibrillation | [place] [address] | Phone: | | | | | ([facility]) | Phone: | [phone] | | | | | Procedures | [phone] | Fax: | | | | | VAS Lower | Fax: | [phone] | | | | | Extremity | [phone] | | | | | | Venous Right | | | +--------+--------+ + + + + Encounter Details +--------+ + + + + | Date | Type | Department | Care Team | Description | +--------+ + + + + | 09/12/ | Hospital | [facility] | Lexie Cagle | Swelling of right | | 2019 | Encounter | [facility] | [address] | lower extremity; | | | | [address] [place] | [address] [place] | Paroxysmal atrial | | | | [place], [place] | [place] [address] | fibrillation (HCC) | | | | [address] | [phone] | | | | | [phone] | | | +--------+ + + + [...] + + + +---------+ + + | cephalexin | Take 500 mg by | | 0 | 07/10/19 | | | (KEFLEX) 500 mg | mouth. | | | 19 | 9 | | capsule | | | | | | + + + +---------+ + + | dabigatran | Take 1 capsule by | 60 | 3 | 09/13/19 | | | (PRADAXA) 150 mg | mouth 2 times daily. | capsule | | 19 | 9 | | capsule | | | | | | + + + +---------+ + + | dabigatran | Take 1 capsule by | 48 | 0 | 09/13/19 | | | (PRADAXA) 150 mg | mouth 2 times daily. | capsule | | 19 | 9 [...] + + + +---------+ + + | Nutritional | Take 237 mLs by | 180 Can | 5 | 09/13/19 | | | Supplements | mouth 6 times daily. | | | 19 | 9 | | (NUTRITIONAL DRINK) | | | | | | | LIQDIndications: | | | | | | | Hypoglycemia, Poor | | | | | | | nutrition | | | | | | + + + +---------+ + + | oxybutynin | Take 1 tablet by | 30 | 3 | 07/19/19 | | | (DITROPAN-XL) 10 MG | mouth Daily. | tablet | | 19 | 9 | | 24 hr tablet | | [...] [place] | | | | | | [address] | | | | | | | | +--------+---------+ + + + documented as of this encounter Procedures + +--------+ + + + | Procedure Name | Priori | Date/Time | Associated Diagnosis | Comments | | | ty | | | | + +--------+ + + + | VAS LOWER EXTREMITY | STAT | 09/12/2018 | Swelling of right | Results for this | | VENOUS RIGHT | | 11:40 AM | lower extremity | procedure are in the | | | | PDT | Paroxysmal atrial | results section. | | | | | fibrillation (HCC) | | + +--------+ + + + documented in this encounter Results VAS Lower Extremity Venous [...] | | the ordering provider, by the buckle strap drum operator, immediately following the | | | exam. [...] to the ordering provider, by the | |buckle strap drum operator, immediately following the exam. | | | |Dictated and Signed by: mW Batres MD | | Electronically signed: 09/12/2018 12:00 PM | + + + +---------+ + + | Performing | Address | City/State/Zipcode | Phone Number | | Organization | | | | + +---------+ + + | [facility] | | | | + +---------+ + + documented in this encounter Visit Diagnoses + + | Diagnosis | + + | Swelling of right lower extremity Swelling of limb | + + | Paroxysmal atrial fibrillation (HCC) Atrial fibrillation | + + documented in this encounter"
--- OUTSIDE RECORDS SUMMARY | ~2019-08-23 | XMS | Encounter Summary ---
Demographics + + + | Address | [address] | | | [place] [address] | + + + | Home Phone | | + + + | Preferred Language | Unknown | + + + | Marital Status | Single | + + + | Religion Affiliation | [employer] | + + [...] Team Providers + +------+ + | Care Systems Coordinator Name | Role | Phone | + +------+ + PCP | Unavailable | + +------+ + Encounter Details +--------+ + + + + | Date | Type | Department | Care Team | Description | +--------+ + + + + | 02/03/ | Results | General Surgery | Gary Yeager, | | | 2002 | Only | [address] | [address] | | | | | Loop Mailcode: | [address] | | | | | [address] Physician's | [place], [place] | | | | | [address] | [address] | | | | | [place], [place] | [phone] | | | | | [address] | | | | | | [phone] | | | +--------+ + + + [...] | | | | | | [place] [address] | | +--------+ + + + + documented as of this encounter Procedures + +--------+ + + + | Procedure Name | Priori | Date/Time | Associated Diagnosis | Comments | | | ty | | | | + +--------+ + + + | COMPLETE METABOLIC | Routin | 02/03/2003 | | Results for this | | SET | e | 4:37 PM | | procedure are in the | | (NA,K,CL,CO2,BUN,CRE | | PST | | results section. | | AT,GLUC,CA,AST,ALT,B | | | | | | LILY TOTAL,ALK | | | | | | PHOS,ALB,PROT TOTAL) | | | | | + +--------+ + + + | CBC ONLY | Routin | 02/03/2003 | | Results for this | | | e | 4:37 PM | | procedure are in the | | | | PST | | results section. | + +--------+ + + + documented in this encounter Results CBC ONLY WITH PLATELET (02/03/2003 4:37 PM PST) + +-------+ + + + | Component | Value | Ref Range | Performed | Pathologist | | | | | At | Signature | + +-------+ + + + | WHITE CELL | 6.3 | 4.4 - 11.0 K/cu | [facility] | | | COUNT | | mm | DEPARTMENT | | | | | | OF | | | | | | PATHOLOGY | | + +-------+ + + + | RED CELL | 4.22 | 4.20 - 5.90 | [facility] | | | COUNT | | M/cu mm | DEPARTMENT | | | | | | OF | | | | | | PATHOLOGY | | + +-------+ + + + | HEMOGLOBIN | 13.5 | 13.0 - 17.5 | [facility] | | | | | g/dL | DEPARTMENT | | | | | | OF | | | | | | PATHOLOGY | | + +-------+ + + + | HEMATOCRIT | 40.4 | 38.0 - 50.4 % | [facility] | | | | | | DEPARTMENT | | | | | | OF | | | | | | PATHOLOGY | | + +-------+ + + + | MCV | 95.8 | 80.0 - 96.0 fL | [facility] | | | | | | DEPARTMENT | | | | | | OF | | | | | | PATHOLOGY | | + +-------+ + + + | MCH | 32.0 | 28.5 - 32.3 pg | [facility] | | | | | | DEPARTMENT | | | | | | OF | | | | | | PATHOLOGY | | + +-------+ + + + | MCHC | 33.4 | 33.4 - 35.5 | [facility] | | | | | g/dL | DEPARTMENT | | | | | | OF | | | | | | PATHOLOGY | | + +-------+ + + + | RDW | 13.8 | 11.5 - 15.0 % | [facility] | | | | | | DEPARTMENT | | | | | | OF | | | | | | PATHOLOGY | | + +-------+ + + + | PLATELET | 179 | 150 - 400 K/cu | [facility] | | | COUNT | | mm | DEPARTMENT | | | | | | OF | | | | | | PATHOLOGY | | + +-------+ + + + | MPV | 8.8 | 7.4 - 10.4 fL | [facility] | | | | [...] + + + + + | [facility] DEPARTMENT OF | [address] | [place] [address] | | | PATHOLOGY | [address] | | | + + + + + | [facility] DEPARTMENT OF | [address] [facility] | [place] [address] | | | PATHOLOGY | [address] | | | + + + + + COMP METABOLIC SET (02/03/2003 4:37 PM PST) + +--------+ + + + | Component | Value | Ref Range | Performed | Pathologist | | | | | At | Signature | + +--------+ + + + | GLUCOSE, | 102 | 65 - 110 mg/dL | [facility] | | | PLASMA | | | DEPARTMENT | | | (LAB) | | | OF | | | | | | PATHOLOGY | | + +--------+ + + + | BUN, PLASMA | 18 | 6 - 20 mg/dL | [facility] | | | (LAB) | | | DEPARTMENT | | | | | | OF | | | | | | PATHOLOGY | | + +--------+ + + + | CREATININE | 0.9 | 0.7 - 1.3 mg/dL | [facility] | | | PLASMA | | | DEPARTMENT | | | (LAB) | | | OF | | | | | | PATHOLOGY | | + +--------+ + + + | TOTAL | 6.8 | 6.1 - 7.9 g/dL | [facility] | | | PROTEIN, | | | DEPARTMENT | | | PLASMA | | | OF | | | (LAB) | | | PATHOLOGY | | + +--------+ + + + | ALBUMIN, | 4.0 | 3.5 - 4.7 g/dL | [facility] | | | PLASMA | | | DEPARTMENT | | | (LAB) | | | OF | | | | | | PATHOLOGY | | + +--------+ + + + | CALCIUM, | 9.1 | 8.5 - 10.5 | [facility] | | | PLASMA | | mg/dL | DEPARTMENT | | | (LAB) | | | OF | | | | | | PATHOLOGY | | + +--------+ + + + | BILIRUBIN | 0.9 | 0.3 - 1.2 mg/dL | [facility] | | | TOTAL | | | DEPARTMENT | | | | | | OF | | | | | | PATHOLOGY | | + +--------+ + + + | ALK PHOS | 55 | 53 - 128 U/L | [facility] | | | | | | DEPARTMENT | | | | | | OF | | | | | | PATHOLOGY | | + +--------+ + + + | AST(SGOT) | 21 | 15 - 41 U/L | [facility] | | | | | | DEPARTMENT | | | | | | OF | | | | | | PATHOLOGY | | + +--------+ + + + | SODIUM, | 143 | 136 - 145 | [facility] | | | PLASMA | | mmol/L | DEPARTMENT | | | (LAB) | | | OF | | | | | | PATHOLOGY | | + +--------+ + + + | POTASSIUM, | 3.9 | 3.5 - 5.1 | [facility] | | | PLASMA | | mmol/L | DEPARTMENT | | | (LAB) | | | OF | | | | | | PATHOLOGY | | + +--------+ + + + | CHLORIDE, | 105 | 98 - 107 mmol/L | [facility] | | | PLASMA | | | DEPARTMENT | | | (LAB) | | | OF | | | | | | PATHOLOGY | | + +--------+ + + + | TOTAL CO2, | 31 (H) | 23 - 29 mmol/L | [facility] | | | PLASMA | | | DEPARTMENT | | | (LAB) | | | OF | | | | | | PATHOLOGY | | + +--------+ + + + | ALT (SGPT) | 24 | 13 - 48 U/L | [facility] | | | | | | DEPARTMENT | | | | | | OF | | | | | | PATHOLOGY | | + +--------+ + + + + + | Specimen | + + | | + + + + + + + | Performing | Address | City/State/Zipcode | Phone Number | | Organization | | | | + + + + + | [facility] | [facility] [facility] | [place] [address] | | | PATHOLOGY | [address] | | | + + + + + | [facility] | [facility] [facility] | [place] [address] | | | PATHOLOGY | [address] | | | + + + + + documented in this encounter Visit Diagnoses Not on filedocumented in this encounter"
--- OUTSIDE RECORDS SUMMARY | ~2019-08-23 | XMS | Encounter Summary ---
Demographics + + + | Address | [address] | | | [place] [address] | + + + | Home Phone | | + + + | Preferred Language | Unknown | + + + | Marital Status | Single | + + + | Gnosticist Affiliation | WORSHIP | + + + | Race | White | + + + | Ethnic Group | Not or | + + + Author + + + | Author | [facility] | + + + | Organization | [facility] | + + + | Address | Unknown | + + + | Phone | Unavailable | + + + Support + + +---------+ + | Name | Relationship | Address | Phone | + + +---------+ + | Theodore Marquez | ECON | Unknown | | + + +---------+ + Care Team Providers + +------+ + | Care Sugar Sampler Name | Role | Phone | + +------+ + | Jose Hameed MD | PCP | | + +------+ + Reason for Visit + + + | Reason | Comments | + + + | Infusion | Ocrevus | + + + Other (Routine) +--------+--------+ + + + + | Status | Reason | Specialty | Diagnoses / | Referred By | Referred To | | | | | Procedures | Contact | Contact | +--------+--------+ + + + + | Closed | | Hematology & | Diagnoses | | Hem | | | | Oncology | 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, | Treatment | | | | | sclerosis | MD Patrick | [facility] | | | | | Procedures | [address] | for Health | | | | | [place] | Ave | and Healing | | | | | THR/PRPH/DX | [place], [place] | [address] | | | | | IV INF,IN | [address] | Ave | | | | | [place] | Phone: | [place], [place] | | | | | THER/PROPH/D | [phone] | [address] | | | | | [place]AG [place] | Fax: | Phone: | | | | | INJ, | [phone] | [phone] | | | | | OCRELIZUMAB, | | Fax: | | | | | 1 MG | | [phone] | | | | | Ocrevus | | | +--------+--------+ + + + + Encounter Details +--------+ + + + + | Date | Type | Department | Care Team | Description | +--------+ + + + + | 05/18/ | Hospital | [facility] | Nurse2, Hem [address] | | | 2018 | Encounter | Clinics at S | [address] | | | | | [facility] | [place] [address] | | | | | for Health and | [address], Hem [address] | | | | | Healing [address] | [address] [place], | | | | | Ave [place], [place] | [place] [address] | | | | | [address] | | | | | | [phone] | | | +--------+ + + + [...] + + + | Blood Pressure | 144/80 | 05/18/2017 1:45 PM | | | | | PST | | + + + + + | Pulse | 87 | 05/18/2017 1:45 PM | | | | | PST | | + + + + + | Temperature | 36.7 C (98 F) | 05/18/2017 1:45 PM | | | | | PST | | + + + + + | Respiratory Rate | 16 | 05/18/2017 1:45 PM | | | | | PST | | + + + + + | Oxygen Saturation | 97% | 05/18/2017 1:45 PM | | | | | PST | | + + + + + | Inhaled Oxygen | - | - | | | Concentration | | | | + + + + + | Weight | 93.7 kg (206 lb 9.6 | 05/18/2017 8:29 AM | | | | oz) | PST | | + + + + + | Height | - | - | | + + + + + | Body Mass Index | 29.64 | 10/31/2016 3:28 PM | | | [...] documented as of this encounter Progress Notes Varsha Lennon RN - 05/18/2017 8:20 AM PSTPatient here for first 6 month 600mg Ocrev us infusion. Patient denies: fever, s/s infection. Patient reports maintaining baseline fun ctionality. Patient was premedicated per orders. Ocrevus 600 was infused per orders and pro tocol with 250ml NS sidearm. Vital signs monitored per Protocol; VSS. Patient tolerated wit hout incident. PIV d/c'd and intact.. Pt Alert & Oriented x3, No acute distress, Mood & af fect appropriate and Recent & remote memory intact and discharged ambulatory. Refer to MAR and Onc Lines and Transfusions doc flowsheet for treatment details. documented in thi s encounter Plan of Treatment +--------+ + + + + | Date | Type | Specialty | Care Team | Description | +--------+ + + + + | 10/31/ | Appointment | Hematology & | Onc, Gen [address] | | | 2020 | | Oncology | [address] [place], | | | | | | [place] [address] | | +--------+ + + + + [...] | acetaminophen (TYLENOL) tablet | Given | 05/18/19 | 650 mg | | | | 650 mg 650 mg, oral, ONCE, 1 | | 18 9:20 | | | | | dose, [facility] 05/18/17 at 0900 | | AM PST | | | | + +--------+ +--------+------+------+ +---+---+ | | | +---+---+ + +-------+ +-------+---+---+ | loratadine (CLARITIN) tablet 10 | Given | 05/18/19 | 10 mg | | | | mg 10 mg, oral, NEEDED, 1 | | 18 9:20 | | | | | dose, Starting [facility] 05/18/17 at | | AM PST | | | | | 0845, Until [facility] 05/18/17 at 0920, | | | | | | | Give instead of diphenhydrAMINE | | | | | | | 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 | | | | | | + +-------+ +-------+---+---+ +---+---+ | | | +---+---+ + +-------+ +--------+---+---+ | methylPREDNISolone sod succ | Given | 05/18/19 | 100 mg | | | | (PF) (SOLU-MEDROL) injection 100 | | 18 9:20 | | | | | mg 100 mg, intravenous, ONCE, 1 | | AM PST | | | | | dose, Jemma 05/18/17 at 0900 | | | | | | + +-------+ +--------+---+---+ +---+---+ | | | +---+---+ + +---------+ +--------+ +---+ | ocrelizumab (OCREVUS) 600 mg in | New Bag | 05/18/19 | 600 mg | 40 mL/hr | | | NaCl 0.9 % IV 600 mg, | | 18 9:57 | | | | | intravenous, ONCE, 1 dose, Jemma | | AM PST | | | | | 05/18/17 at 0900 | | | | | | + +---------+ +--------+ +---+ +---+---+ | | | +---+---+ documented in this encounter"
--- OUTSIDE RECORDS SUMMARY | ~2019-08-23 | XMS | Encounter Summary ---
Demographics + + + | Address | [address] | | | [place] [address] | + + + | Home Phone | | + + + | Preferred Language | Unknown | + + + | Marital Status | | + + + | Adventism Affiliation | Unknown | + + + | Race | Unknown | + + + | Ethnic Group | Unknown | + + + Author + + + | Author | [facility] | | | and [place]aden[place] | + + + | Organization | [facility] | | | and [place] | + + + | Address | Unknown | + + + | Phone | Unavailable | + + + Support + + + + + | Name | Relationship | Address | Phone | + + + + + | Triny Hardni | ECON | Unknown | | + + + + + | Zuleyma Ayala | ECON | [address] | | | | | [place] [address] | | + + + + + Care Team Providers + +------+ + | Care Industrial Roof Plumber Name | Role | Phone | + [...] + + | 04/17/ | Telephone | [facility] | Michael Fernandes | Surgery Appointment | | 2019 | | [address] | MD Yaw [address] | | | | | [place] | PRECIOUS EM | | | | | [address] | [address] | | | | | [phone] | | | +--------+ + + + [...] [place] | | | | | | [address] | | | | | | | | +--------+---------+ + + + documented as of this encounter Visit Diagnoses Not on filedocumented in this encounter"
--- OUTSIDE RECORDS SUMMARY | ~2019-08-23 | XMS | Clinical Summary ---
Demographics + + + | Address | [address] | | | [place] [address] | + + + | Home Phone | | + + + | Preferred Language | Unknown | + + + | Marital Status | | + + + | Latter-Day Affiliation | Unknown | + + + | Race | Unknown | + + + | Ethnic Group | Unknown | + + + Author + + + | Author | [facility] | | | and Jadenana | + + + | Organization | [facility] | | | and [...] | | | | | [place] [address] | | + + + + + Care Team Providers + +------+ + | Care Extension Work Director Name | Role | Phone | + [...] automatically from request for surgery | | [id number] | + + + + + | Osteoarthritis of both knees | 07/04/2018 | + + + | Scapholunate dissociation of left wrist | 12/21/2017 | + + + + + | Overview: Overview: | | Added automatically from request for surgery [id number] | + + + + + | Paroxysmal atrial fibrillation | 09/18/2017 | + + + + + | Overview: Overview: Onset 08/2017Ris assessment: | | [id number] = 1; 08/2017Unaffordable treatment: Eliquis | | (fatigue)Past treatment: metoprolol for rate controlCurrent | | treatment:--rate control: No rx--stroke prevention meds: | | Warfarin--rhythm control:Followed by cardiologyHistory of Present | | Illness (12/07/2017)Pt is being transition from Eliquis to | | Warfarin. Pt states today the reason is cost.Last Assessment & | | Plan: Referral sent to ACCOverview: Onset 08/2017Ris assessment: | | [id number] = 1; 08/2017Unaffordable treatment: Eliquis | | [...] |Overview: | |Onset 08/2017 | |Risk assessment: [id number] = 1; 08/2017 | |Unaffordable treatment: Eliquis [...] lap band in 2012 | | in [place], [place]; Dr. Fountain)History of Present | | [...] bypassCurrent | | treatment: B12 injections at [facility] once a month | |Etiology: Gastric bypass | |Current treatment: B12 injections at [facility] once a month | + + [...] Done x 2 (Benito-en-Y in 2001 in [facility]; and | | lap band in 2013 in [place], [place]; | | Essie)Complications: dumping syndromeCurrent treatment: [...] bladder, RLSPast MS | | treatment: --Avonex 3182-5450 (treatment for 2 years)--Rebif for | | [...] 2019 | Visit | | [address] | | | | | | [place] | | | | | | [address] | | | | | | | [...] | | | Michael Tidwell MD at [facility] | | | | | | /[id number] | | [facility] | | | | | | [facility] | | CENTER | | | | | | | + +--------+--------+ +--------+--------+--------+ | Stent Uret W/Pstnr Frm 6 | Stent | Right: | COOK | | 11/15/ | [id number] | | - [id number]: | | | [employer] | | 2021 | / | | Qty: 1 on 01/03/2019 by | | Ureter | - KEIKO | | | /[id number] | | Michael Fernandes MD at | | | | | | 44 | | [facility] | | | | | | | | [facility] | | | | | | [...] [facility] | | | [place] [address] | | | Unattended, Multiparameter, Sleep Apnea [...] using the | | | WatchPat technology ([employer]). This monitors referral | | | arterial [...] Bauer Jr., MD, | | | FAASMMedical DirectorJohnson Regional Medical Center Sleep Disorders | | | CenterPro[place], WAClinical | | | Electrical Systems Designer of MedicineO[place], [place] | | |elevated at 14.1, and [...] | | | |Abdoulaye Bauer Jr., MD, [facility] | | |Tool And Fixture Repairer | | |[facility] | | |[facility] | | |[place] | | |Clinical structural steel painter | | |[facility] | | |[place], [place] | | + + + + + | Procedure Note | + + | Abdoulaye Bauer Jr., MD - 06/20/2019 3:00 PM PDT [facility] | | Disorders [place], [place] [address]Gciclulrmu, | | Multiparameter, Sleep Apnea Test (WATCH-PAT) for Mian Marquez performed on June 19 | | 2019.Identifying Information: Mian Marquez is a 69 y.o. male who is referred for | | unattended, multi-parameter, sleep apnea test because of probable Obstructive Sleep | | Apnea.Technical Information: The study was performed using the One CodexPat technology | | ([employer]). This monitors referral arterial tone (PAT) signal [...] Sleep Apnea is advised.Abdoulaye Bauer Jr., MD, [facility] [facility] SP[facility]TS MEDICINEMedical | | DirectorJohnson Regional Medical Center Sleep Disorders [facility] | | [facility] Centerinical Electrical Systems Designer of MedicineSanpete [facility] | | [place], [place] | |Abdoulaye Bauer Jr., MD, [employer] | |Tool And Fixture Repairer | |[facility] [place] | |[facility] | |[place], [place] | |Clinical structural steel painter | |[facility] | |[place], [place] | + + Ferritin (06/05/2019 11:54 AM PDT) + +---------+ + + + | Component | Value | Ref Range | Performed | Pathologist | | | | | At | Signature | + +---------+ + + + | FERRITIN | 356 (H) | 11 - 307 ng/mL | [facility] | | | | | | [facility] | | | | | | [...] [address] | [place] | [phone] | | [facility] | | [address] | | | - LABORATORY | | [...] +--------+ +---------+--------+ | MEDICARE | MEDICA | [id number] | 09/25/19 | [phone] | | Medica | | | RE | | 08-Pre | 5 | | re | | | PART A | | sent | | | | | | AND B | | | | | | + +--------+ +--------+ +---------+--------+ | AARP | AARP | [id number] | 03/27/19 | [phone] | | Indemn [...] | 1950 | [phone] | [place] [address] | | | [place]arr | | | 9 (Home) | | + +--------+ +--------+ + + Advance Directives + + + + + | Type | Date Recorded | Patient | Explanation | | | | Public Welfare Worker | | + + + + + | Power of | | | | | Heading Machine Operator | | | | + + + [...]
--- OUTSIDE RECORDS SUMMARY | ~2019-08-23 | XMS | Encounter Summary ---
Demographics + + + | Address | [address] | | | [place] [address] | + + + | Home Phone | | + + + | Preferred Language | Unknown | + + + | Marital Status | Single | + + + | Hoahaoism Affiliation | HOLINESS | + + + [...] Team Providers + +------+ + | Care Sign Maintenance Name | Role | Phone | + +------+ + | Trevin Delacruz MD | PCP | | + +------+ + Reason for Referral PROC - Outpatient Surgery (Routine) +--------+ + + + + + | Status | Reason | Specialty | Diagnoses / | Referred By | Referred To | | | | | Procedures | Contact | Contact | +--------+ + + + + + | Closed | PLE: Need | Plastic | Diagnoses | Baltrusch, | Pls | | | Estimate | Surgery | Localized | Pranav Carvalho MD | Gen/Recon | | | | | adiposity | [address] | [facility] [address] | | | | | Cutis laxa | [address] | [address] | | | | | senilis | [address] | Mailcode: | | | | | Rash and | [address] | [facility] | | | | | other | [place] | for Health | | | | | nonspecific | [address] | and Healing, | | | | | skin | [place], [place] | [address], | | | | | eruption | [address] | 5th Floor | | | | | Bariatric | Phone: | [place], [place] | | | | | surgery | [phone] | [address] | | | | | status | Fax: | Phone: | | | | | Procedures | [phone] | [phone] | | | | | REQUEST TO | | | | | | | SURGERY | | | | | | | INSPECTOR MATERIAL DISPOSITION | | | | | | | UT SUCT | | | | | | | ADA | | | | | | | LIPECTOMY,TR | | | | | | | UNK UT | | | | | | | EXCISE | | | | | | | EXCESS SKIN | | | | | | | TISSUE,OTHER | | | | | | | UT EXC | | | | | | | SKIN ABD | | | | | | | ADD-ON UT | | | | | | | EXC SKIN ABD | | | | | | | | | | | | | | [id number] | | | | | | | noplasty | | | | | | | [id number] | | | | | | | [id number]-[id number] | | | | | | | asty | | | | | | | [id number]-[id number] | | | | | | | ction E65 | | | | | | | L57.4 R21 | | | | | | | Z98.84 | | | +--------+ + + + + + Reason for Visit + + + | Reason | Comments | + + + | New patient | pannicuectomy | | consultation | | + + [...] | | | | | Abdominal | [place], [place] | Mailcode: | | | | | pannus | [address] | [address] | | | | | Excess skin | | for Health | | | | | | | and Healing, | | | | | PANNICULECTO | | Building [address], | | | | | MY | | 5th Floor | | | | | Procedures | | [place], [place] | | | | | CONSULT TO | | [address] | | | | | SURGERY - | | Phone: | | | | | PLASTICS | | [phone] | +--------+--------+ + + + + Encounter Details +--------+---------+ + + + | Date | Type | Department | Care Team | Description | +--------+---------+ + + + | 01/12/ | Office | Plastic and | Neto Lockhart, | 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 | [address] | | | | | [facility] | [phone] | | | | | and Healing, | | | | | | [facility] 1 | | | | | | Floor [place], [place] | | | | | | [address] | | | | | | [phone] | | | +--------+---------+ + + + [...] + + + | Blood Pressure | 144/86 | 01/12/2015 1:40 PM | | | | | PDT | | + + + + + | Pulse | 72 | 01/12/2015 1:40 PM | | | | | PDT | | + + + + + | Temperature | - | - | | + + + + + | Respiratory Rate | 18 | 01/12/2015 1:40 PM | | | | | PDT | | + + + + + | Oxygen Saturation | 100% | 01/12/2015 1:40 PM | | | | | PDT | | + + + + + | Inhaled Oxygen | - | - | | | Concentration | | | | + + + + + | Weight | 90.9 kg (200 lb 8 | 01/12/2015 1:40 PM | | | | oz) | PDT | | + + + + + | Height | 176.5 cm (5' 9.5") | 01/12/2015 1:40 PM | | | | | PDT | | + + + + + | Body Mass Index | 29.18 | 01/12/2015 1:40 PM | | | | | PDT | | + + + + + documented in this encounter Patient Instructions Patient Instructions Pranav Patel MD - 01/12/2015 2:13 PM PDT.2009 [employer]. Purchasers of the Patient Consultation Resource Book are given a l imited license to modify documents contained herein and reproduce the modified version for u se in the Color Printer Operator's own practice only. All other rights are reserved by [employer]. Purchasers may not sell or allow any other democrat to use any version of the Patient Consultation Resource Book, any of the documents contained herein or any joanne fied version of such documents. INFORMED CONSENT - MEDIAL THIGH INSTRUCTIONS This is an informed-consent document that has been prepared to help inform you concerning m edial thigh lift surgery, its risks, as well as alternative treatment(s). It is important that you read this information carefully and completely. Please initial ea ch page, indicating that you have read the page and sign the consent for surgery as proposed by your plastic surgeon and agreed upon by you. GENERAL INFORMATION A medial thigh lift is a surgical procedure to remove excess skin and fatty tissue from the medial thighs. A medial thigh lift is not a surgical treatment for being overweight. Obes e individuals who intend to lose weight should postpone all forms of body contouring surgery until they have reached a stable weight. There are a variety of different techniques used by plastic surgeons for a medial thigh lif t. A medial thigh lift can be combined with other forms of body-contouring surgery, includi ng suction-assisted lipectomy, or performed at the same time with other elective surgeries. Your surgery may require the transfusion of blood products; however, this varies on a case-b y-case basis. ALTERNATIVE TREATMENTS A medial thigh lift is an elective surgical operation. Alternative forms of management con sist of not treating the areas of loose skin and fatty deposits. Suction-assisted lipectomy surgery may be a surgical alternative to a medial thigh lift if there is good skin tone and localized fatty deposits in an individual of normal weight. Diet and exercise regimens may be of benefit in the overall reduction of excess body fat and contour improvement. Risks a nd potential complications are also associated with alternative surgical forms of treatment. RISKS OF MEDIAL THIGH LIFT SURGERY Every surgical procedure involves a certain amount of risk and it is important that you und erstand these risks and the possible complications associated with them. In addition, every procedure has limitations. An individual s choice to undergo a surgical procedure is bas ed on the comparison of the risk to potential benefit. Although the majority of patients do not experience these complications, you should discuss each of them with your plastic surge on to make sure you understand all possible consequences of a medial thigh lift. Specific Risks of Medial Thigh Lift Surgery Sensation of Thigh Tightness: After lifting the thigh skin, there can be a sensation of the thigh skin being tight. Usually this feeling subsides over time. Additional surgery may b e required to correct this problem. Pubic Region Distortion: It is possible, though unusual, for women to develop distortion of their labia or public area. Should this occur, additional treatment including surgery may be necessary. General Risks of Surgery Healing Issues: Certain medical conditions, dietary supplements and medications may delay a nd interfere with healing. Patients with massive weight loss may have a healing delay that c ould result in the incisions coming apart, infection, and tissue changes resulting in the ne ed for additional medical care, surgery, and prolonged hospitalizations. Patients with diabe slade or those taking medications such as steroids on an extended basis may have prolonged hea ling issues. Smoking will cause a delay in the healing process, often resulting in the need for additional surgery. There are general risks associated with healing such as swelling, bl eeding, and the length of surgery and anesthesia that include a longer recovery and the poss ibility of additional surgery, prolonged recovery, color changes, shape changes, infection, not meeting goals and expectations, and added expense to the patient. Patients with signific ant skin laxity (patients seeking facelifts, breast lifts, abdominoplasty, and body lifts) w ill continue to have the same lax skin after surgery. The quality or elasticity of skin will not change and recurrence of skin looseness will occur at some time in the future, quicker for some than others. There are nerve endings that may become involved with healing scars du ring surgery such as suction-assisted lipectomy, abdominoplasty, facelifts, body lifts, and extremity surgery. While there may not be a major nerve injury, the small nerve endings duri ng the healing period may become too active producing a painful or oversensitive area due to the small sensory nerve involved with scar tissue. Often massage and early non-surgical int ervention resolves this. It is important to discuss post-surgical pain with your surgeon. Bleeding: It is possible, though unusual, to experience a bleeding episode during or after surgery. Should post-operative bleeding occur, it may require emergency treatment to drain accumulated blood or you may require a blood transfusion, though such occurrences are rare. Increased activity too soon after surgery can lead to increased chance of bleeding and be tional surgery. It is important to follow postoperative instructions and limit exercise and strenuous activity for the instructed time. Do not take any aspirin or anti-inflammatory med ications for at least ten days before or after surgery, as this may increase the risk of ble eding. Non-prescription herbs and dietary supplements can increase the risk of surgic al bleeding. Hematoma can occur at any time, usually in the first three weeks following inj ury to the operative area. If blood transfusions are necessary to treat blood loss, there i s the risk of blood-related infections such as hepatitis and HIV (AIDS). Heparin medication s that are used to prevent blood clots in veins can produce bleeding and decreased blood rios telets. Infection: Infection is unusual after surgery. Should an infection occur, additional treat ment including antibiotics, hospitalization, or additional surgery may be necessary. It is important to tell your surgeon of any other infections, such as ingrown toenail, insect bite , or urinary tract infection. Remote infections, infections in other parts of the body, may lead to an infection in the operated area. Scarring: All surgery leaves scars, some more visible than others. Although good wound hea ling after a surgical procedure is expected, abnormal scars may occur within the skin and de eper tissues. Scars may be unattractive and of different color than the surrounding skin to ne. Scar appearance may also vary within the same scar. Scars may be asymmetrical (appear different on the right and left side of the body). There is the possibility of visible eneida s in the skin from sutures. In some cases scars may require surgical revision or treatment. Firmness: Excessive firmness can occur after surgery due to internal scarring. The occurre nce of this is not predictable. Additional treatment including surgery may be necessary. Change in Skin Sensation: It is common to experience diminished (or loss) of skin sensation in areas that have had surgery. Diminished (or complete loss of skin sensation) may not to tally resolve. Skin Contour Irregularities: Contour and shape irregularities may occur. Visible and palpa ble wrinkling of skin may occur. Residual skin irregularities at the ends of the incisions or dog ears are always a possibility when there is excessive redundant skin. This may improve with time, or it can be surgically corrected. Skin Discoloration / Swelling: Some bruising and swelling normally occur. The skin in or n ear the surgical site can appear either sterilization technician or darker than surrounding skin. Although u ncommon, swelling and skin discoloration may persist for long periods of time and, in rare s ituations, may be permanent. Skin Sensitivity: Itching, tenderness, or exaggerated responses to hot or cold temperatures may occur after surgery. Usually this resolves during healing, but in rare situations it m ay be chronic. General Risks of Surgery Healing Issues: Certain medical conditions, dietary supplements and medications may delay a nd interfere with healing. Patients with massive weight loss may have a healing delay that c ould result in the incisions coming apart, infection, and tissue changes resulting in the ne ed for additional medical care, surgery, and prolonged hospitalizations. Patients with diabe slade or those taking medications such as steroids on an extended basis may have prolonged hea ling issues. Smoking will cause a delay in the healing process, often resulting in the need for additional surgery. There are general risks associated with healing such as swelling, bl eeding, and the length of surgery and anesthesia that include a longer recovery and the poss ibility of additional surgery, prolonged recovery, color changes, shape changes, infection, not meeting goals and expectations, and added expense to the patient. Patients with signific ant skin laxity (patients seeking facelifts, breast lifts, abdominoplasty, and body lifts) w ill continue to have the same lax skin after surgery. The quality or elasticity of skin will not change and recurrence of skin looseness will occur at some time in the future, quicker for some than others. There are nerve endings that may become involved with healing scars du ring surgery such as suction-assisted lipectomy, abdominoplasty, facelifts, body lifts, and extremity surgery. While there may not be a major nerve injury, the small nerve endings duri ng the healing period may become too active producing a painful or oversensitive area due to the small sensory nerve involved with scar tissue. Often massage and early non-surgical int ervention resolves this. It is important to discuss post-surgical pain with your surgeon. Bleeding: It is possible, though unusual, to experience a bleeding episode during or after surgery. Should post-operative bleeding occur, it may require emergency treatment to drain accumulated blood or you may require a blood transfusion, though such occurrences are rare. Increased activity too soon after surgery can lead to increased chance of bleeding and be tional surgery. It is important to follow postoperative instructions and limit exercise and strenuous activity for the instructed time. Do not take any aspirin or anti-inflammatory med ications for at least ten days before or after surgery, as this may increase the risk of ble eding. Non-prescription herbs and dietary supplements can increase the risk of surgic al bleeding. Hematoma can occur at any time, usually in the first three weeks following inj ury to the operative area. If blood transfusions are necessary to treat blood loss, there i s the risk of blood-related infections such as hepatitis and HIV (AIDS). Heparin medication s that are used to prevent blood clots in veins can produce bleeding and decreased blood rios telets. Infection: Infection is unusual after surgery. Should an infection occur, additional treat ment including antibiotics, hospitalization, or additional surgery may be necessary. It is important to tell your surgeon of any other infections, such as ingrown toenail, insect bite , or urinary tract infection. Remote infections, infections in other parts of the body, may lead to an infection in the operated area. Scarring: All surgery leaves scars, some more visible than others. Although good wound hea ling after a surgical procedure is expected, abnormal scars may occur within the skin and de eper tissues. Scars may be unattractive and of different color than the surrounding skin to ne. Scar appearance may also vary within the same scar. Scars may be asymmetrical (appear different on the right and left side of the body). There is the possibility of visible eneida s in the skin from sutures. In some cases scars may require surgical revision or treatment. Firmness: Excessive firmness can occur after surgery due to internal scarring. The occurre nce of this is not predictable. Additional treatment including surgery may be necessary. Change in Skin Sensation: It is common to experience diminished (or loss) of skin sensation in areas that have had surgery. Diminished (or complete loss of skin sensation) may not to tally resolve. Skin Contour Irregularities: Contour and shape irregularities may occur. Visible and palpa ble wrinkling of skin may occur. Residual skin irregularities at the ends of the incisions or dog ears are always a possibility when there is excessive redundant skin. This may improve with time, or it can be surgically corrected. Skin Discoloration / Swelling: Some bruising and swelling normally occur. The skin in or n ear the surgical site can appear either sterilization technician or darker than surrounding skin. Although u ncommon, swelling and skin discoloration may persist for long periods of time and, in rare s ituations, may be permanent. Skin Sensitivity: Itching, tenderness, or exaggerated responses to hot or cold temperatures may occur after surgery. Usually this resolves during healing, but in rare situations it m ay be chronic. Persistent Swelling (Lymphedema): Persistent swelling in the legs can occur following surge ry. Unsatisfactory Result: Although good results are expected, there is no guarantee or warrant y expressed or implied, on the results that may be obtained. You may be disappointed with t he results of surgery. Asymmetry, unanticipated shape and size, loss of function, wound dis ruption, poor healing, and loss of sensation may occur after surgery. Size may be incorrect . Unsatisfactory surgical scar location or appearance may occur. It may be necessary to pe rform additional surgery to improve your results. ADDITIONAL ADVISORIES Smoking, Second-Hand Smoke Exposure, Nicotine Products (Patch, Gum, Nasal Nubieber): Patients who are currently smoking or use tobacco or nicotine products (patch, gum, or nasa l spray) are at a greater risk for significant surgical complications of skin dying, delayed healing and additional scarring. Individuals exposed to second-hand smoke are also at pote ntial risk for similar complications attributable to nicotine exposure. Additionally, smoki ng may have a significant negative effect on anesthesia and recovery from anesthesia, with c oughing and possibly increased bleeding. Individuals who are not exposed to tobacco smoke o r nicotine-containing products have a significantly lower risk of this type of complication. Please indicate your current status regarding these items below: I am a non-smoker and do not use nicotine products. I understand the potential risk of se cond-hand smoke exposure causing surgical complications. I am a smoker or use tobacco / nicotine products. I understand the risk of surgical compl ications due to smoking or use of nicotine products. I have smoked and stopped approximately ago. I understand I may still have the e ffects and therefore risks from smoking in my system, if not enough time has lapsed. It is important to refrain from smoking at least 6 weeks before surgery and until your phys ician states it is safe to return, if desired. I acknowledge that I will inform my physician if I continue to smoke within this time frame, and understand that for my safety, the surge ry, if possible, may be delayed. Off-Label FDA Issues: There are many devices, medications and injectable fillers and botulinum toxins that are ap proved for specific use by the FDA, but this proposed use is Off-Label , that is not sp ecifically approved by the FDA. It is important that you understand this proposed use is not experimental and your physician believes it to be safe and effective. Examples of commonly accepted Off-Label use of drugs or devices include the use of aspirin for prevention of heart disease, retinoids for skin care, and injection of botulinum toxin for wrinkles tali und the eyes. ____ I acknowledge that I have been informed about the Off-Label FDA status of , and I understand it is not experimental and accept its use. Medications and Herbal Dietary Supplements: There are potential adverse reactions that occu r as the result of taking [id number]-xtbalkc, herbal, and/or prescription medications. Aspirin and medications that contain aspirin interfere with clotting and can cause more bleeding. T hese include non-steroidal anti-inflammatories such as Motrin, Advil, and Alleve. It is very important not to stop drugs that interfere with platelets, such as Plavix, which is used af ter a stent. It is important if you have had a stent and are taking Plavix that you inform t he plastic surgeon. Stopping Plavix may result in a heart attack, stroke and even . Be sure to check with your physician about any drug interactions that may exist with medication s which you are already taking. If you have an adverse reaction, stop the drugs immediately and call your plastic surgeon for further instructions. If the reaction is severe, go imme diately to the nearest emergency room. When taking the prescribed pain medications after washburn rgery, realize that they can affect your thought process and coordination. Do not drive, do not operate complex equipment, do not make any important decisions and do not drink any alc ohol while taking these medications. Be sure to take your prescribed medication only as dir ected. Sun Exposure Direct or Tanning Salon: The effects of the sun are damaging to the skin. Exposing the treated areas to sun may result in increased scarring, color changes, and poor healing. Patients who ceron, either outdoors or in a salon, should inform their surgeon and ei ther delay treatment, or avoid tanning until the surgeon says it is safe to resume. The liane ging effect of sun exposure occurs even with the use sun block or clothing coverage. Travel Plans: Any surgery holds the risk of complications that may delay healing and delay your return to normal life. Please let the surgeon know of any travel plans, important commi tments already scheduled or planned, or time demands that are important to you, so that appr opriate timing of surgery can occur. There are no guarantees that you will be able to resume all activities in the desired time frame. Long-Term Results: Subsequent alterations in the appearance of your body may occur as the r esult of aging, sun exposure, weight loss, weight gain, , menopause or other circum stances not related to your surgery. Body-Piercing Procedures: Individuals who currently wear body-piercing jewelry in the surgi liu region are advised that an infection could develop from this activity. Female Patient Information: It is important to inform your plastic surgeon if you use control pills, estrogen replacement, or if you suspect you may be . Many medicatio ns including antibiotics may neutralize the preventive effect of control pills, allowi ng for conception and . Intimate Relations After Surgery: Surgery involves coagulating of blood vessels and increas ed activity of any kind may open these vessels leading to a bleed, or hematoma. Activity th at increases your pulse or heart rate may cause additional bruising, swelling, and the need for return to surgery and control bleeding. It is vitale to refrain from intimate physical ac tivities until your physician states it is safe. Mental Health Disorders and Elective Surgery: It is important that all patients seeking to undergo elective surgery have realistic expectations that focus on improvement rather than p erfection. Complications or less than satisfactory results are sometimes unavoidable, may r equire additional surgery and often are stressful. Please openly discuss with your surgeon, prior to surgery, any history that you may have of significant emotional depression or ment al health disorders. Although many individuals may benefit psychologically from the results of elective surgery, effects on mental health cannot be accurately predicted. Metabolic Status Of Massive Weight Loss Patients: Your personal metabolic status of blood c hemistry and protein levels may be abnormal following massive weight loss and surgical proce dures to make a patient loose weight. Individuals with abnormalities may be a risk for seri ous medical and surgical complications, including delayed wound healing, infection or even i n rare cases, . ADDITIONAL SURGERY NECESSARY (Re-Operations) Should complications occur additional surgery or other treatments may be necessary. Second susie surgery may be necessary to obtain optimal results. Even though risks and complications occur infrequently, the risks cited are particularly associated with a medial thigh lift. Other complications and risks can occur but are even more uncommon. The practice of medicin e and surgery is not an exact science. Although good results are expected, there is no guar antee or warranty expressed or implied, on the results that may be obtained. With medial th igh lift surgery, it may not be possible to achieve optimal results with a single surgical p rocedure. This may require multiple surgical sessions to produce a final outcome. PATIENT COMPLIANCE Follow all physician instructions carefully; this is essential for the success of your outc ome. It is important that the surgical incisions are not subjected to excessive force, swel ling, abrasion, or motion during the time of healing. Personal and vocational activity need s to be restricted. Protective dressings and drains should not be removed unless instructed by your plastic surgeon. Successful post-operative function depends on both surgery and [place] bsequent care. Physical activity that increases your pulse or heart rate may cause bruising , swelling, fluid accumulation and the need for return to surgery. It is vitale to refrain fr om intimate physical activities after surgery until your physician states it is safe. It is important that you participate in follow-up care, return for aftercare, and promote your re covery after surgery. HEALTH INSURANCE Most health insurance companies exclude coverage for cosmetic surgical operations or any re sulting complications. Please carefully review your health insurance subscriber-information pamphlet. Most insurance plans exclude coverage for secondary or revisionary surgery due t o complications of cosmetic surgery. FINANCIAL RESPONSIBILITIES The cost of surgery involves several charges for the services provided. The total includes fees charged by your surgeon, the cost of surgical supplies, anesthesia, laboratory tests, and possible outpatient hospital charges, depending on where the surgery is performed. Depe nding on whether the cost of surgery is covered by an insurance plan, you will be responsibl e for necessary co-payments, deductibles, and charges not covered. The fees charged for thi s procedure do not include any potential future costs for additional procedures that you cam ct to have or require in order to revise, optimize, or complete your outcome. Additional co sts may occur should complications develop from the surgery. Secondary surgery or hospital day-surgery charges involved with revision surgery will also be your responsibility. In sig maximus the consent for this surgery/procedure, you acknowledge that you have been informed abo ut its risks and consequences and accept responsibility for the clinical decisions that were made along with the financial costs of all future treatments. ___I understand that with cosmetic surgery, I am responsible for the surgical fees quoted t o me, as well as additional fees for anesthesia, facility (OR), and possibly laboratory, X-r ay, and pathology fees. Surgicenters, Outpatient Centers, and Hospitals often have rules that certain tissue/implan ts removed during surgery must be sent for evaluation which may result in additional fees. Alyssa gibbs check with your surgeon to receive an estimate of any additional costs that you may be charged. ___I understand that there will be a non-refundable fee for booking and scheduling my surge ry of $ , which is a part of the overall surgical fee. Should I cancel my surgery without an approved medically acceptable reason, submitted in wr iting and acceptable to the practice, within weeks of the scheduled surgery, this fee is forfeited. While this may appear to be a charge for services which were not provided, thi s fee is necessary to reserve time in the OR and in the practice, which are done when I sche dule. ___ I understand and unconditionally and irrevocably accept this. DISCLAIMER Informed-consent documents are used to communicate information about the proposed surgical treatment of a disease or condition along with disclosure of risks and alternative forms of treatment(s), including no surgery. The informed-consent process attempts to define princip les of risk disclosure that should generally meet the needs of most patients in most [facility]. However, informed-consent documents should not be considered all-inclusive in defining othe r methods of care and risks encountered. Your plastic surgeon may provide you with addition al or different information which is based on all the facts in your particular case and the current state of medical knowledge. Informed-consent documents are not intended to define or serve as the standard of medical c are. Standards of medical care are determined on the basis of all of the facts involved in an individual case and are subject to change as scientific knowledge and technology advance and as practice patterns evolve. It is important that you read the above information carefully and have all of your question s answered before signing the consent on the next page. CONSENT FOR SURGERY / PROCEDURE or TREATMENT 1. I hereby authorize and such assistants as may be selecte d to perform the following procedure or treatment: MEDIAL THIGH LIFT I have received the following information sheet: INFORMED CONSENT MEDIAL THIGH LIFT SURGERY 2. I recognize that during the course of the operation and medical treatment or anesthesia, unforeseen conditions may necessitate different procedures than those above. I therefore a uthorize the above physician and assistants or designees to perform such other procedures th at are in the exercise of his or her professional judgment necessary and desirable. The aut hority granted under this paragraph shall include all conditions that require treatment and are not known to my physician at the time the procedure is begun. 3. I consent to the administration of such anesthetics considered necessary or advisable. I understand that all forms of anesthesia involve risk and the possibility of complications, injury, and sometimes . 4. I understand what my surgeon can and cannot do, and I understand there are no warranties or guarantees, implied or specific about my outcome. I have had the opportunity to explain my goals and understand which desired outcomes are realistic and which are not. All of my qu estions have been answered, and I understand the inherent (specific) risks of the procedure s I seek, as well as those additional risks and complications, benefits, and alternatives. U nderstanding all of this, I elect to proceed. 5. I consent to be photographed or televised before, during, and after the operation(s) or procedure(s) to be performed, including appropriate portions of my body, for medical, scient ifi or educational purposes, provided my identity is not revealed by the pictures. 6. For purposes of advancing medical education, I consent to the admittance of observers to the operating room. 7. I consent to the disposal of any tissue, medical devices or body parts which may be cassi clint. 8. I consent to the utilization of blood products should they be deemed necessary by my israel geon and/or his/her appointees, and I am aware that there are potential significant risks to my health with their utilization. 9. I authorize the release of my Social Security number to appropriate agencies for legal r eporting and medical-device registration, if applicable. 10. I understand that the surgeon s fees are separate from the anesthesia and hospital ch arg, and the fees are agreeable to me. If a secondary procedure is necessary, further exp enditure will be required. 11. I realize that not having the operation is an option. 12. IT HAS BEEN EXPLAINED TO ME IN A WAY THAT I UNDERSTAND: a. THE ABOVE TREATMENT OR PROCEDURE TO BE UNDERTAKEN b. THERE MAY BE ALTERNATIVE PROCEDURES OR METHODS OF TREATMENT c. THERE ARE RISKS TO THE PROCEDURE OR TREATMENT PROPOSED I CONSENT TO THE TREATMENT OR PROCEDURE AND THE ABOVE LISTED ITEMS (1-12). I AM SATISFIED WITH THE EXPLANATION. Patient or Person Authorized to Sign for Patient Date Witness 2008 [employer]. Purchasers of the Patient Consultation Reso urce Book are given a limited license to modify documents contained herein and reproduce the modified version for use in the Color Printer Operator's own practice only. All other rights are reserve d by [employer]. Purchasers may not sell or allow any other democrat to use any version of the Patient Consultation Resource Book, any of the documents containe d herein or any modified version of such documents. INFORMED CONSENT - ABDOMINOPLASTY SURGERY INSTRUCTIONS This is an informed-consent document that has been prepared to help your plastic surgeon in form you of abdominoplasty surgery, its risks, as well as alternative treatments. It is important that you read this information carefully and completely. Please initial ea ch page, indicating that you have read the page and sign the consent for surgery as proposed by your plastic surgeon and agreed upon by you. GENERAL INFORMATION Abdominoplasty is a surgical procedure to remove excess skin and fatty tissue from the midd le and lower abdomen and to tighten muscles of the abdominal wall. Abdominoplasty is not a surgical treatment for being overweight. Obese individuals who intend to lose weight should postpone all forms of body contouring surgery until they have reached a stable weight. There are a variety of different techniques used by plastic surgeons for abdominoplasty. A bdominoplasty can be combined with other forms of body-contouring surgery, including suction -assisted lipectomy, or performed at the same time with other elective surgeries. ALTERNATIVE TREATMENTS Alternative forms of management consist of not treating the areas of loose skin and fatty d eposits. Liposuction may be a surgical alternative to abdominoplasty if there is good skin tone and localized abdominal fatty deposits in an individual of normal weight. Diet and exe rcise programs may be of benefit in the overall reduction of excess body fat and contour imp rovement. Risks and potential complications are associated with alternative surgical forms of treatment. RISKS OF ABDOMINOPLASTY SURGERY Every surgical procedure involves a certain amount of risk and it is important that you und erstand these risks and the possible complications associated with them. In addition, every procedure has limitations. An individual s choice to undergo a surgical procedure is bas ed on the comparison of the risk to potential benefit. Although the majority of patients do not experience these complications, you should discuss each of them with your plastic surge on to make sure you completely understand all possible consequences of a abdominoplasty. Specific Risks of Abdominoplasty Surgery Change in Skin Sensation: It is common to experience diminished (or loss) of skin sensation in areas that have had surgery. Diminished (or complete loss of skin sensation) may not to tally resolve after an abdominoplasty. Skin Contour Irregularities: Contour and shape irregularities and depressions may occur aft er abdominoplasty. Visible and palpable wrinkling of skin can occur. Residual skin irregula rities at the ends of the incisions or dog ears are always a possibility as is skin pl eating when there is excessive redundant skin. This may improve with time, or it can be israel gically corrected. Major Wound Separation: Wounds may separate after surgery. Should this occur, additional t reatment including surgery may be necessary. Umbilicus: Malposition, scarring, unacceptable appearance or loss of the umbilicus (navel) may occur. Pubic Distortion: It is possible, though unusual, for women to develop distortion of their labia and pubic area. Should this occur, additional treatment including surgery may be nece ssary. General Risks of Surgery Healing Issues: Certain medical conditions, dietary supplements and medications may delay a nd interfere with healing. Patients with massive weight loss may have a healing delay that c ould result in the incisions coming apart, infection, and tissue changes resulting in the ne ed for additional medical care, surgery, and prolonged hospitalizations. Patients with diabe slade or those taking medications such as steroids on an extended basis may have prolonged hea ling issues. Smoking will cause a delay in the healing process, often resulting in the need for additional surgery. There are general risks associated with healing such as swelling, bl eeding, and the length of surgery and anesthesia that include a longer recovery and the poss ibility of additional surgery, prolonged recovery, color changes, shape changes, infection, not meeting goals and expectations, and added expense to the patient. Patients with signific ant skin laxity (patients seeking facelifts, breast lifts, abdominoplasty, and body lifts) w ill continue to have the same lax skin after surgery. The quality or elasticity of skin will not change and recurrence of skin looseness will occur at some time in the future, quicker for some than others. There are nerve endings that may become involved with healing scars du ring surgery such as suction-assisted lipectomy, abdominoplasty, facelifts, body lifts, and extremity surgery. While there may not be a major nerve injury, the small nerve endings duri ng the healing period may become too active producing a painful or oversensitive area due to the small sensory nerve involved with scar tissue. Often massage and early non-surgical int ervention resolves this. It is important to discuss post-surgical pain with your surgeon. Bleeding: It is possible, though unusual, to experience a bleeding episode during or after surgery. Should post-operative bleeding occur, it may require emergency treatment to drain accumulated blood or you may require a blood transfusion, though such occurrences are rare. Increased activity too soon after surgery can lead to increased chance of bleeding and be tional surgery. It is important to follow postoperative instructions and limit exercise and strenuous activity for the instructed time. Do not take any aspirin or anti-inflammatory med ications for at least ten days before or after surgery, as this may increase the risk of ble eding. Non-prescription herbs and dietary supplements can increase the risk of surgic al bleeding. Hematoma can occur at any time, usually in the first three weeks following inj ury to the operative area. If blood transfusions are necessary to treat blood loss, there i s the risk of blood-related infections such as hepatitis and HIV (AIDS). Heparin medication s that are used to prevent blood clots in veins can produce bleeding and decreased blood rios telets. Infection: Infection is unusual after surgery. Should an infection occur, additional treat ment including antibiotics, hospitalization, or additional surgery may be necessary. It is important to tell your surgeon of any other infections, such as ingrown toenail, insect bite , or urinary tract infection. Remote infections, infections in other parts of the body, may lead to an infection in the operated area. Scarring: All surgery leaves scars, some more visible than others. Although good wound hea ling after a surgical procedure is expected, abnormal scars may occur within the skin and de eper tissues. Scars may be unattractive and of different color than the surrounding skin to ne. Scar appearance may also vary within the same scar. Scars may be asymmetrical (appear different on the right and left side of the body). There is the possibility of visible eneida s in the skin from sutures. In some cases scars may require surgical revision or treatment. Firmness: Excessive firmness can occur after surgery due to internal scarring. The occurre nce of this is not predictable. Additional treatment including surgery may be necessary. Skin Discoloration / Swelling: Some bruising and swelling normally occur. The skin in or n ear the surgical site can appear either sterilization technician or darker than surrounding skin. Although u ncommon, swelling and skin discoloration may persist for long periods of time and, in rare s ituations, may be permanent. Skin Sensitivity: Itching, tenderness, or exaggerated responses to hot or cold temperatures may occur after surgery. Usually this resolves during healing, but in rare situations it m ay be chronic. Major Wound Separation: Wounds may separate after surgery. Should this occur, additional t reatment including surgery may be necessary. Sutures: Most surgical techniques use deep sutures. You may notice these sutures after you r surgery. Sutures may spontaneously poke through the skin, become visible or produce irrit ation that requires suture removal. Delayed Healing: Wound disruption or delayed wound healing is possible. Some areas of the skin may not heal normally and may take a long time to heal. Areas of skin may . This m ay require frequent dressing changes or further surgery to remove the non-healed tissue. In dividuals who have decreased blood supply to tissue from past surgery or radiation therapy m ay be at increased risk for wound healing and poor surgical outcome. Smokers have a greater risk of skin loss and wound healing complications. Damage to Deeper Structures: There is the potential for injury to deeper structures includi ng nerves, blood vessels, muscles, and lungs (pneumothorax) during any surgical procedure. The potential for this to occur varies according to the type of procedure being performed. Injury to deeper structures may be temporary or permanent. Fat Necrosis: Fatty tissue found deep in the skin might . This may produce areas of fir mness within the skin. Additional surgery to remove areas of fat necrosis may be necessary. There is the possibility of contour irregularities in the skin that may result from fat ne crosis. Seroma: Infrequently, fluid may accumulate between the skin and the underlying tissues foll owing surgery, trauma or vigorous exercise. Should this problem occur, it may require addit ional procedures for drainage of fluid. Surgical Anesthesia: Both local and general anesthesia involve risk. There is the possibil ity of complications, injury, and even from all forms of surgical anesthesia or sedati on. Shock: In rare circumstances, your surgical procedure can cause severe trauma, particularly when multiple or extensive procedures are performed. Although serious complications are in frequent, infections or excessive fluid loss can lead to severe illness and even . If surgical shock occurs, hospitalization and additional treatment would be necessary. Pain: You will experience pain after your surgery. Pain of varying intensity and duration may occur and persist after surgery. Chronic pain may occur very infrequently from nerves b ecoming trapped in scar tissue or due to tissue stretching. Cardiac and Pulmonary Complications: Pulmonary complications may occur secondarily to both blood clots (pulmonary emboli), fat deposits (fat emboli) or partial collapse of the lungs a fter general anesthesia. Pulmonary emboli can be life-threatening or fatal in some circumst ances. Inactivity and other conditions may increase the incidence of blood clots traveling to the lungs causing a major blood clot that may result in . It is important to discus s with your physician any past history of swelling in your legs or blood clots that may cont ribute to this condition. Cardiac complications are a risk with any surgery and anesthesia, even in patients without symptoms. If you experience shortness of breath, chest pain, or un usual heart beats, seek medical attention immediately. Should any of these complications oc cur, you may require hospitalization and additional treatment. Allergic Reactions: In rare cases, local allergies to tape, suture material and glues, bloo d products, topical preparations or injected agents have been reported. Serious systemic re actions including shock (anaphylaxis) may occur in response to drugs used during surgery and prescription medicines. Allergic reactions may require additional treatment. Asymmetry: Symmetrical body appearance may not result after surgery. Factors such as skin tone, fatty deposits, skeletal prominence, and muscle tone may contribute to normal asymmetr y in body features. Most patients have differences between the right and left side of their bodies before any surgery is performed. Additional surgery may be necessary to attempt to diminish asymmetry. Surgical Wetting Solutions: There is the possibility that large volumes of fluid containing dilute local anesthetic drugs and epinephrine that is injected into fatty deposits during s urgery may contribute to fluid overload or systemic reaction to these medications. Addition al treatment including hospitalization may be necessary. Persistent Swelling (Lymphedema): Persistent swelling in the legs can occur following surge ry. Unsatisfactory Result: Although good results are expected, there is no guarantee or warrant y expressed or implied, on the results that may be obtained. You may be disappointed with t he results of surgery. Asymmetry, unanticipated shape and size, loss of function, wound dis ruption, poor healing, and loss of sensation may occur after surgery. Size may be incorrect . Unsatisfactory surgical scar location or appearance may occur. It may be necessary to pe rform additional surgery to improve your results. ADDITIONAL ADVISORIES Smoking, Second-Hand Smoke Exposure, Nicotine Products (Patch, Gum, Nasal Nubieber): Patients who are currently smoking or use tobacco or nicotine products (patch, gum, or nasa l spray) are at a greater risk for significant surgical complications of skin dying, delayed healing and additional scarring. Individuals exposed to second-hand smoke are also at pote ntial risk for similar complications attributable to nicotine exposure. Additionally, smoki ng may have a significant negative effect on anesthesia and recovery from anesthesia, with c oughing and possibly increased bleeding. Individuals who are not exposed to tobacco smoke o r nicotine-containing products have a significantly lower risk of this type of complication. Please indicate your current status regarding these items below: I am a non-smoker and do not use nicotine products. I understand the potential risk of se cond-hand smoke exposure causing surgical complications. I am a smoker or use tobacco / nicotine products. I understand the risk of surgical compl ications due to smoking or use of nicotine products. I have smoked and stopped approximately ago. I understand I may still have the e ffects and therefore risks from smoking in my system, if not enough time has lapsed. It is important to refrain from smoking at least 6 weeks before surgery and until your phys ician states it is safe to return, if desired. I acknowledge that I will inform my physician if I continue to smoke within this time frame, and understand that for my safety, the surge ry, if possible, may be delayed. Medications and Herbal Dietary Supplements: There are potential adverse reactions that occu r as the result of taking [id number], herbal, and/or prescription medications. Aspirin and medications that contain aspirin interfere with clotting and can cause more bleeding. T hese include non-steroidal anti-inflammatories such as Motrin, Advil, and Alleve. It is very important not to stop drugs that interfere with platelets, such as Plavix, which is used af ter a stent. It is important if you have had a stent and are taking Plavix that you inform t he plastic surgeon. Stopping Plavix may result in a heart attack, stroke and even . Be sure to check with your physician about any drug interactions that may exist with medication s that you are already taking. If you have an adverse reaction, stop the drugs immediately and call your plastic surgeon for further instructions. If the reaction is severe, go immed iately to the nearest emergency room. When taking the prescribed pain medications after [place], realize that they can affect your thought process and coordination. Do not drive, do not operate complex equipment, do not make any important decisions and do not drink any alco hol while taking these medications. Be sure to take your prescribed medication only as dire cted. Sun Exposure Direct or Tanning Salon: The effects of the sun are damaging to the skin. Exposing the treated areas to sun may result in increased scarring, color changes, and poor healing. Patients who ceron, either outdoors or in a salon, should inform their surgeon and ei ther delay treatment, or avoid tanning until the surgeon says it is safe to resume. The liane ging effect of sun exposure occurs even with the use sun block or clothing coverage. Travel Plans: Any surgery holds the risk of complications that may delay healing and delay your return to normal life. Please let the surgeon know of any travel plans, important commi tments already scheduled or planned, or time demands that are important to you, so that appr opriate timing of surgery can occur. There are no guarantees that you will be able to resume all activities in the desired time frame. Long-Term Results: Subsequent alterations in the appearance of your body may occur as the r esult of aging, sun exposure, weight loss, weight gain, , menopause or other circum stances not related to your surgery. Body-Piercing Procedures: Individuals who currently wear body-piercing jewelry in the [facility] region are advised that an infection could develop from this activity. Future and Breast Feeding: This surgery is not known to interfere with . If you are planning a , your breast skin may stretch and offset the results of washburn rgery. You may have more difficulty breast feeding after this operation. Female Patient Information: It is important to inform your plastic surgeon if you use control pills, estrogen replacement, or if you suspect you may be . Many medicati ons including antibiotics may neutralize the preventive effect of control pills, allow ing for conception and . Intimate Relations After Surgery: Surgery involves coagulating of blood vessels and increas ed activity of any kind may open these vessels leading to a bleed, or hematoma. Activity th at increases your pulse or heart rate may cause additional bruising, swelling, and the need for return to surgery and control bleeding. It is vitael to refrain from intimate physical ac tivities until your physician states it is safe. Mental Health Disorders and Elective Surgery: It is important that all patients seeking to undergo elective surgery have realistic expectations that focus on improvement rather than p erfection. Complications or less than satisfactory results are sometimes unavoidable, may r equire additional surgery and often are stressful. Please openly discuss with your surgeon, prior to surgery, any history that you may have of significant emotional depression or ment al health disorders. Although many individuals may benefit psychologically from the results of elective surgery, effects on mental health cannot be accurately predicted. Metabolic Status of Massive Weight Loss Patients: Your personal metabolic status of blood c hemistry and protein levels may be abnormal following massive weight loss and surgical proce dures to make a patient loose weight. Individuals with abnormalities may be at risk for seri ous medical and surgical complications, including delayed wound healing, infection or even i n rare cases, . ADDITIONAL SURGERY NECESSARY (Re-Operations) There are many variable conditions that may influence the long-term result of surgery. It i s unknown how your tissue may respond or how wound healing will occur after surgery. Second susie surgery may be necessary to perform additional tightening or repositioning of body struc tures. Should complications occur, additional surgery or other treatments may be necessary. Even though risks and complications occur infrequently, the risks cited are particularly a ssociated with this surgery. Other complications and risks can occur but are even more unco mmon. The practice of medicine and surgery is not an exact science. Although good results are expected, there is no guarantee or warranty expressed or implied, on the results that ma y be obtained. In some situations, it may not be possible to achieve optimal results with a single surgical procedure. PATIENT COMPLIANCE Follow all physician instructions carefully; this is essential for the success of your outc ome. It is important that the surgical incisions are not subjected to excessive force, swel ling, abrasion, or motion during the time of healing. Personal and vocational activity need s to be restricted. Protective dressings and drains should not be removed unless instructed by your plastic surgeon. Successful post-operative function depends on both surgery and washburn bsequent care. Physical activity that increases your pulse or heart rate may cause bruising , swelling, fluid accumulation and the need for return to surgery. It is vitale to refrain fr om intimate physical activities after surgery until your physician states it is safe. It is important that you participate in follow-up care, return for aftercare, and promote your re covery after surgery. HEALTH INSURANCE Most health insurance companies exclude coverage for cosmetic surgical operations or any re sulting complications. Please carefully review your health insurance subscriber-information pamphlet. Most insurance plans exclude coverage for secondary or revisionary surgery due t o complications of cosmetic surgery. FINANCIAL RESPONSIBILITIES The cost of surgery involves several charges for the services provided. The total includes fees charged by your surgeon, the cost of surgical supplies, anesthesia, laboratory tests, and possible outpatient hospital charges, depending on where the surgery is performed. Depe nding on whether the cost of surgery is covered by an insurance plan, you will be responsibl e for necessary co-payments, deductibles, and charges not covered. The fees charged for thi s procedure do not include any potential future costs for additional procedures that you cam ct to have or require in order to revise, optimize, or complete your outcome. Additional co sts may occur should complications develop from the surgery. Secondary surgery or hospital day-surgery charges involved with revision surgery will also be your responsibility. In sig maximus the consent for this surgery/procedure, you acknowledge that you have been informed abo ut its risks and consequences and accept responsibility for the clinical decisions that were made along with the financial costs of all future treatments. ___I understand that with cosmetic surgery, I am responsible for the surgical fees quoted t o me, as well as additional fees for anesthesia, facility (OR), and possibly laboratory, X-r ay, and pathology fees. Surgicenters, Outpatient Centers, and Hospitals often have rules that certain tissue/implan ts removed during surgery must be sent for evaluation which may result in additional fees. P sai check with your surgeon to receive an estimate of any additional costs that you may be charged. ___I understand that there will be a non-refundable fee for booking and scheduling my surge ry of $ , which is a part of the overall surgical fee. Should I cancel my surgery without an approved medically acceptable reason, submitted in wr iting and acceptable to the practice, within weeks of the scheduled surgery, this fee is forfeited. While this may appear to be a charge for services which were not provided, thi s fee is necessary to reserve time in the OR and in the practice, which are done when I sche dule. ___ I understand and unconditionally and irrevocably accept this. DISCLAIMER Informed-consent documents are used to communicate information about the proposed surgical treatment of a disease or condition along with disclosure of risks and alternative forms of treatment(s), including no surgery. The informed-consent process attempts to define princip les of risk disclosure that should generally meet the needs of most patients in most [facility]. However, informed-consent documents should not be considered all-inclusive in defining othe r methods of care and risks encountered. Your plastic surgeon may provide you with addition al or different information which is based on all the facts in your particular case and the current state of medical knowledge. Informed-consent documents are not intended to define or serve as the standard of medical c are. Standards of medical care are determined on the basis of all of the facts involved in an individual case and are subject to change as scientific knowledge and technology advance and as practice patterns evolve. It is important that you read the above information carefully and have all of your question s answered before signing the consent on the next page. CONSENT FOR SURGERY / PROCEDURE or TREATMENT 1. I hereby authorize and such assistants as may be selected to perform the following procedure or treatment: ABDOMINOPLASTY I have received the following information sheet: INFORMED CONSENT ABDOMINOPLASTY SURGERY 2. I recognize that during the course of the operation and medical treatment or anesthesia, unforeseen conditions may necessitate different procedures than those above. I therefore au thorize the above physician and assistants or designees to perform such other procedures ralph t are in the exercise of his or her professional judgment necessary and desirable. The auth ority granted under this paragraph shall include all conditions that require treatment and a re not known to my physician at the time the procedure is begun. 3. I consent to the administration of such anesthetics considered necessary or advisable. I understand that all forms of anesthesia involves risk and the possibility of complications , injury, and sometimes . 4. I understand what my surgeon can and cannot do, and I understand there are no warranties or guarantees, implied or specific about my outcome. I have had the opportunity to explain my goals and understand which desired outcomes are realistic and which are not. All of my qu estions have been answered, and I understand the inherent (specific) risks of the procedures I seek, as well as those additional risks and complications, benefits, and alternatives. Un derstanding all of this, I elect to proceed. 5. I consent to be photographed or televised before, during, and after the operation(s) or procedure(s) to be performed, including appropriate portions of my body, for medical, scient ific or educational purposes, provided my identity is not revealed by the pictures. 6. For purposes of advancing medical education, I consent to the admittance of observers to the operating room. 7. I consent to the disposal of any tissue, medical devices or body parts which may be cassi clint. 8. I consent to the utilization of blood products should they be deemed necessary by my israel geon and/or his/her appointees, and I am aware that there are potential significant risks to my health with their utilization. 9. I authorize the release of my Social Security number to appropriate agencies for legal r eporting and medical-device registration, if applicable. 10. I understand that the surgeon s fees are separate from the anesthesia and hospital ch arg, and the fees are agreeable to me. If a secondary procedure is necessary, further exp enditure will be required. 11. I realize that not having the operation is an option. 12. IT HAS BEEN EXPLAINED TO ME IN A WAY THAT I UNDERSTAND: a. THE ABOVE TREATMENT OR PROCEDURE TO BE UNDERTAKEN b. THERE MAY BE ALTERNATIVE PROCEDURES OR METHODS OF TREATMENT c. THERE ARE RISKS TO THE PROCEDURE OR TREATMENT PROPOSED I CONSENT TO THE TREATMENT OR PROCEDURE AND THE ABOVE LISTED ITEMS (1-12). I AM SATISFIED WITH THE EXPLANATION. Patient or Person Authorized to Sign for Patient Date Witness Avoid all NSAIDs, fish oil, Vit E, and garlic for a week prior to surgery. Electronically s igned by Neto Lockhart MD at 01/12/2015 7:51 PM PDT documented in this encounter Progress Notes Neto Lockhart MD - 01/12/2015 7:44 PM PDTI was present with the resident during the his tory and exam. I discussed the case with the resident and agree with the findings and plan as documented in the resident s note. Mian Marquez is a 64 year old male with past medical history significant for MS status post weight loss surgeries with over 200 pounds weight loss. He complained of recurrent skin ra shes along his abdominal skin folds. His weight has been stable for the last 6 months. Phy sical exam showed both vertical and horizontal abdominal skin laxity and a ptotic mons. He also has rashes around his umbilicus. Recommend [id number] abdominoplasty with removal of umbilicus, monsplasty and liposuction. He also has excess medial thigh skin and subcutaneo us tissues. Recommend bilateral medial thigh lift at a later day after his abdominoplasty. Will submit to his insurance for approval. Neto Lockhart MD PLASTIC AND RECONSTRUCTIVE SURGERY AT [facility] [address] [place] Mail Code: [address] [place] [address] ranav Patel MD - 01/12/2015 1:56 PM PDT PLASTIC & RECONSTRUCTIVE SURGERY HISTORY & PHYSICAL Chief Complaint: Excess abdominal skin, pannus History of Present Illness: Mian Marquez is a 64 y.o. male with history of MS and morbid ob esity s/p RYGB in 2001 and lap band placement over bypass in 2011 with total weight loss tali und 200 lbs which has left him with excessive abdominal skin laxity. His weight loss has be en fairly stable now for the past two years. He describes discomfort with his pannus in ralph t the intertriginous tissue causes rashes which he uses ointment for, never hospitalized wit h infection. He also takes botox for his MS which causes him some urinary issues, but he is able to spontaneously void. He recently met someone of interest and feels some embarrassme nt when intimate. He denies recent fevers, CP or SOB. PMH: Multiple Sclerosis PSH: 2001: RYGB 2012: Lap band placement over RYBG Medications: ARIPiprazole 5 mg oral tablet, Take 1 tablet by mouth once daily. Armodafinil (NUVIGIL) 150 mg oral tablet, Take 175 mg by mouth once daily as needed. Calcium Citrate-Vitamin D3 (CITRACAL + D PETITES) 200 mg calcium -250 unit oral tablet, Isacc e 2 tablets by mouth three times daily. cholecalciferol, Vitamin D3, (VITAMIN D3) 2,000 unit oral capsule, Take 1 capsule by mouth once daily. cyanocobalamin 1,000 mcg/mL injection solution, Inject into the muscle (IM). ECONAZOLE 1 % topical cream, gabapentin 400 mg oral capsule, Take 2 capsules by mouth two times daily. glatiramer (COPAXONE) 40 mg/mL subcutaneous syringe, Inject 40 mg under the skin (SUBC) thr ee times weekly (on Monday, Monday and Monday). NaCl 0.9 % solp 500 mL with iron dextran 100 mg/2 mL (50 mg/mL) soln, Inject into the vein (IV) once. Every 2 months ONABOTULINUMTOXINA (BOTOX INJ), by injection route as needed (neurogenic bladder). OXYBUTYNIN 5 mg oral tablet, Take 5 mg by mouth three times daily. rOPINIRole 2 mg oral tablet, Take 2 mg by mouth once daily in the evening. traZODone 50 mg oral tablet, Take 1-2 tablets by mouth once daily at bedtime as needed. venlafaxine XR 150 mg oral capsule,extended release 24hr, Take 1 capsule by mouth once lois y. Allergies: Allergies Allergen Reactions Adhesive Tape Pruritis Sulfa (Sulfonamide Antibiotics) Pruritis SH: Smoking: Never FH: Mother with history of lung cancer, previous smoker Father with history of bone cancer Has son in [place] Review of Systems: A complete review of systems is as per the HPI above, but is otherwise n egative. OBJECTIVE: Vitals: BP 144/86 | Pulse 72 | RR 18 | Ht 1.765 m (5' 9.5") | Wt 90.946 kg (200 lb 8 oz) | SpO2 100 % | BMI 29.19 kg/(m^2) Physical Exam: General: Alert and oriented, NAD, pleasant and conversant Psych: Appropriate affect Neuro: Grossly intact, sensation intact, 5/5 strength throughout HEENT: EOMI, no scleral icterus Cardiovascular: RRR without m/g/r Respiratory: CTAB without wheezing, unlabored breathing on room air Abd: Soft, Nontender and nondistended, no abdominal hernia present, excess abdominal skin/p annus measuring 9 cm on the right, 11 cm on the left, 3 cm horizontal skin laxity, RUQ well healed scar from previous cholecystectomy Skin: Vericose veins present bilaterally Ext: WWP, no edema, medial thigh pannus measures 5 cm on the right and 5 cm on the left ASSESSMENT: Mian Marquez is a 64 y.o. male with history of MS and morbid obesity s/p RYGB in 2001 and l ap band placement over bypass in 2011 with stable total weight loss around 200 lbs which has left him with excessive abdominal skin laxity, interested in excess skin removal. PLAN: 1. Recommend stage procedure; first procedure to be yannick cifuentes abdominoplasty, monsplasty , liposuction, patient is okay with loss of umbilicus 2. Second procedure would be bilateral thigh lift 3. PARQ conducted, alternatives discussed, risks addressed including infection, bleeding, h ematoma, seroma, damage to surrounding structures, need for further surgery, wound complicat ions, lymphedema 3. Will send to insurance for approval 4. Pictures obtained today Pranav Patel MD PGY-1, Plastic Surgery Pager [phone] signed by Pranav Patel MD at 01/12/2015 7:54 PM PDTdocument ed in this encounter Plan of Treatment +--------+ + + + + | Date | Type | Specialty | Care Team | Description | +--------+ + + + + | 10/31/ | Appointment | Hematology & | Onc, [address] | | | 2019 | | Oncology | [address] [place], | | | | | | [place] [address] | | +--------+ + + + + documented as of this encounter Visit Diagnoses + + | Diagnosis | + + | Lipodystrophy - Primary | + + | Intertriginous candidiasis Candidiasis of skin and nails | + + documented in this encounter
--- OUTSIDE RECORDS SUMMARY | ~2019-08-23 | XMS | Encounter Summary ---
Demographics + + + | Address | [address] | | | [place] [address] | + + + | Home Phone | | + + + | Preferred Language | Unknown | + + + | Marital Status | Single | + + + | Worship Affiliation | MANDAEISM | + + + [...] Team Providers + +------+ + | Care Pcu Rn Name | Role | Phone | + +------+ + | Jose Hameed MD | PCP | | + +------+ + Reason for Visit + + + | Reason | Comments | + + + | Infusion | Ocrevus | + + + Encounter Details +--------+ + + + + | Date | Type | Department | Care Team | Description | +--------+ + + + + | 11/02/ | Hospital | [facility] | Nurse2, Hem [address] | | | 2018 | Encounter | Clinics at S | [address] | | | | | [facility] | [place] [address] | | | | | for Health and | [address], [address] | | | | | Healing [address] [place], | | | | | [place], [place] | [place] [address] | | | | | [address] | | | | | | [phone] | | | +--------+ + + + [...] + + + | Blood Pressure | 137/86 | 11/02/2017 2:30 PM | | | | | PDT | | + + + + + | Pulse | 73 | 11/02/2017 2:30 PM | | | | | PDT | | + + + + + | Temperature | 36.5 C (97.7 F) | 11/02/2017 2:30 PM | | | | | PDT | | + + + + + | Respiratory Rate | 16 | 11/02/2017 2:30 PM | | | | | PDT | | + + + + + | Oxygen Saturation | 100% | 11/02/2017 2:30 PM | | | | | PDT | | + + + + + | Inhaled Oxygen | - | - | | | Concentration | | | | + + + + + | Weight | 88 kg (193 lb 14.4 | 11/02/2017 8:45 AM | | | | oz) | PDT | | + + + + + | Height | - | - | | + + + + + | Body Mass Index | 27.82 | 10/31/2016 3:28 PM | | | [...] documented as of this encounter Progress Notes Tianna Mancilla RN - 11/02/2017 8:25 AM PDTPatient here for 600mg Ocrevus infusion. Joycelyn ent denies: fever, s/s infection. Lab draw from 09/19/16 not detected. Patient reports maint emilyning baseline functionality. Patient was premedicated per orders. Ocrevus 600mg was infus ed per orders and protocol with 250ml NS sidearm. Vital signs monitored per Protocol; VSS. Patient tolerated without incident. PIV d/c'd and intact. Pt Alert & Oriented x3, No acute distress, Mood & affect appropriate and Recent & remote memory intact and discharged ambula tory. Refer to MAR and Onc Lines and Transfusions doc flowsheet for treatment details.Electronica lly signed by Tianna Mancilla RN at 11/02/2017 2:39 PM PDTdocumented in this encounter Plan of Treatment +--------+ + + + + | Date | Type | Specialty | Care Team | Description | +--------+ + + + + | 10/31/ | Appointment | Hematology & | Onc, Gen [address] | | | 2020 | | Oncology | [address] [place], | | | | | | [place] [address] | | +--------+ + + + + [...] | acetaminophen (TYLENOL) tablet | Given | 11/03/19 | 650 mg | | | | 650 mg 650 mg, oral, ONCE, | | 18 9:22 | | | | | dose, [facility] 11/02/17 at 0915 | | AM PDT | | | | + +--------+ +--------+------+------+ +---+---+ | | | +---+---+ + +-------+ +-------+---+---+ | loratadine (CLARITIN) tablet 10 | Given | 11/03/19 | 10 mg | | | | mg 10 mg, oral, NEEDED, 1 | | 18 9:21 | | | | | dose, Starting [facility] 11/02/17 at | | AM PDT | | | | | 0904, Until [facility] 11/02/17 at 0921, | | | | | | | Give instead of diphenhydrAMINE | | | | | | | if patient does not have a roll off driver | | | | | | + +-------+ +-------+---+---+ +---+---+ | | | +---+---+ + +-------+ +--------+---+---+ | methylPREDNISolone sod succ | Given | 11/03/19 | 100 mg | | | | (PF) (SOLU-MEDROL) injection 100 | | 18 9:21 | | | | | mg 100 mg, intravenous, ONCE, 1 | | AM PDT | | | | | dose, [facility] 11/02/17 at 15 | | | | | | + +-------+ +--------+---+---+ +---+---+ | | | +---+---+ + +---------+ +--------+ +---+ | ocrelizumab (OCREVUS) 600 mg in | New Bag | 11/03/19 | 600 mg | 40 mL/hr | | | NaCl 0.9 % (NS) IV 600 mg, | | 18 10:06 | | | | | intravenous, ONCE, 1 dose, [facility] | | AM PDT | | | | | 11/02/17 at 0915 | | | | | | + +---------+ +--------+ +---+ +---+---+ | | | +---+---+ documented in this encounter"
--- OUTSIDE RECORDS SUMMARY | ~2019-08-23 | XMS | Encounter Summary ---
Demographics + + + | Address | [address] | | | [place] [address] | + + + | Home Phone | | + + + | Preferred Language | Unknown | + + + | Marital Status | Single | + + + | Oriental Orthodox Affiliation | JAINISM | + + + | Race | White | + + + | Ethnic Group | Not or | + + + Author + + + | Author | [facility] | + + + | Organization | [facility] | + + + | Address | Unknown | + + + | Phone | Unavailable | + + + Support + + +---------+ + | Name | Relationship | Address | Phone | + + +---------+ + | Theodore Marquez | ECON | Unknown | | + + +---------+ + Care Team Providers + +------+ + | Care Career Technical Supervisor Name | Role | Phone | + +------+ + | Jose Hameed MD | PCP | | + +------+ + Encounter Details +--------+---------+ + + + | Date | Type | Department | Care Team | Description | +--------+---------+ + + + | 06/13/ | Office | Neurology at | Christian Maldonado MD | Multiple sclerosis | | 2017 | Visit | [facility] & | [address] | ([facility]) (Primary Dx); | | | | Healing [address] | [place], | Chronic low back | | | | Ave Mailcode: CH8C | [place] [address] | pain without | | | | Center for [facility] | [phone] | sciatica, | | | | and Healing, | | unspecified back | | | | Building | | pain laterality; | | | | Floor [place], [place] | | Bradycardia with | | | | [address] | | 41-50 beats per | | | | [phone] | | minute | +--------+---------+ + + [...] CLINIC Medical Problems 1. Multiple sclerosis Avonex 4518-1448 (treatment for 2 years) Rebif for 2.5 [...] with shanell singh and non- rechargeable battery ([employer] stimulator). 9. CHRISTEN INTERVAL HISTORY: Mr. Marquez [...] all 4 extremities. Cerebellar testing shows slowed [id number]-wwpn. Ga it: Antalgic casual gait, very difficult [...] | | | | | | [place] [address] | | +--------+ + + + + [...]
--- OUTSIDE RECORDS SUMMARY | ~2019-08-23 | XMS | Encounter Summary ---
Demographics + + + | Address | [address] | | | [place] [address] | + + + | Home Phone | | + + + | Preferred Language | Unknown | + + + | Marital Status | Single | + + + | Yarsani Affiliation | CHURCH | + + + [...] Providers + +------+ + | Care Animal Assistant Name | Role | Phone | + +------+ + | Jose Hameed MD | PCP | | + +------+ + Encounter Details +--------+ + + + + | Date | Type | Department | Care Team | Description | +--------+ + + + + | 11/18/ | Floodplain Manager | [facility] | [place], | | | 2019 | | Clinics at | MD Patrick [address] | | | | | [facility] | [place], | | | | | for Health and | [place] [address] | | | | | Healing [address] | [phone] | | | | | [place] | | | | | | [address] | | | | | | [phone] | | | +--------+ + + + [...] | | | | | | [place] [address] | | +--------+ + + + + documented as of this encounter Visit Diagnoses Not on filedocumented in this encounter"
--- OUTSIDE RECORDS SUMMARY | ~2019-08-23 | XMS | Encounter Summary ---
Demographics + + + | Address | [address] | | | [place] [address] | + + + | Home Phone | | + + + | Preferred Language | Unknown | + + + | Marital Status | Single | + + + | Advent Affiliation | YAZIDISM | + + + | Race | White | + + + | Ethnic Group | Not or | + + + Author + + + | Author | [facility] | + + + | Organization | [facility] | + + + | Address | Unknown | + + + | Phone | Unavailable | + + + Support + + +---------+ + | Name | Relationship | Address | Phone | + + +---------+ + | Theodore Marquez | ECON | Unknown | | + + +---------+ + Care Team Providers + +------+ + | Care Transmission Calibration Engineer Name | Role | Phone | + +------+ + | Jose Hameed MD | PCP | | + +------+ + Encounter Details +--------+ + + + + | Date | Type | Department | Care Team | Description | +--------+ + + + + | 02/01/ | Document-Sc | Health Information | Unknown . | | | 2002 | anned | Services [address] | | | | [address] | | | | | | Mailcode: OP17A | | | | | | [facility] | | | | | | [place], [place] | | | | | | [address] | | | | | | [phone] | | | +--------+ + + + [...] | | | | | | [place] [address] | | +--------+ + + + + documented as of this encounter Visit Diagnoses Not on filedocumented in this encounter"
--- OUTSIDE RECORDS SUMMARY | ~2019-08-23 | XMS | Encounter Summary ---
Demographics + + + | Address | [address] | | | [place] [address] | + + + | Home Phone | | + + + | Preferred Language | Unknown | + + + | Marital Status | Single | + + + | Sikh Affiliation | LUTHERAN | + + + | Race | [...] Team Providers + +------+ + | Care Archivist Name | Role | Phone | + [...] + + + | | | | | | | +--------+--------+ + + + + Encounter Details +--------+---------+ + + + | Date | Type | Department | Care Team | Description | +--------+---------+ + + + | 03/03/ | Surgery | [id number] | Neto Lockhart, | PANNICULECTOMY | | 2015 | | [address] | [address] | | | | | [facility] | [facility] | | | | | Hospital Admitting | [place], [place] | | | | | Desk Located on the | [address] | | | | | 9th floor | [phone] | | | | | [place], [place] | | | | | | [address] | | | +--------+---------+ + + + [...] + + + | Blood Pressure | 114/78 | 03/03/2015 11:45 AM | | | | | PST | | + + + + + | Pulse | 73 | 03/03/2015 11:45 AM | | | | | PST | | + + + + + | Temperature | 36.5 C (97.7 F) | 03/03/2015 10:06 AM | | | | | PST | | + + + + + | Respiratory Rate | 10 | 03/03/2015 11:45 AM | | | | | PST | | + + + + + | Oxygen Saturation | 98% | 03/03/2015 11:45 AM | | | | | PST | | + + + + + | Inhaled Oxygen | - | - | | | Concentration | | | | + + + + + | Weight | 89.3 kg (196 lb 13.9 | 03/03/2015 6:00 AM | | | | oz) | PST | | + + + + + | Height | 177.8 cm (5' 10") | 03/03/2015 6:00 AM | | | | | PST | | + + + + + | Body Mass Index | 28.25 | 03/03/2015 6:00 AM | | | | | PST | | + + + + + documented in this encounter Discharge Instructions Instructions Manju Morales RN - 03/03/2015General Discharge Instructions for Same-Day [facility] dure Patients: ? Remember that you are under the influence of medications. Do not stay alone. A responsible person should be with you. Do not drive, drink alcohol or make important personal or business decisions for 24 hour s. ? Resume normal activity and return to work when advised by your Doctor. Pain Management: Your last oral pain medication was given at: 10:30 AM oxycodone 10 mg ? Please follow your Doctor s instructions on the medication bottle. ? Do not take pain medication on an empty stomach, as this may cause nausea and vomiting. ? Do not drive or drink alcohol while on narcotic pain medication. ? If you received a Peripheral Nerve Block, please take pain medication when numbing begins to wear off or when you go to bed. This will allow for pain coverage when your nerve block wears off during the night. ? If pain is not relieved or increases despite following these instructions, please call yo ur Doctor. Diet: ? If you do not experience nausea or vomiting resume your regular diet. Eat lightly and av oid large, high fat or highly spiced meals for 24-48 hours. ? Constipation can be a side effect of narcotic pain medication. Take stool softeners, inc rease dietary fiber and drink plenty of water to prevent this. Wound/Dressing/Drain Care: ? Call your Doctor if there is excessive bleeding, redness, swelling or drainage at the ope rative site. Urination: ? Please contact your Doctor or proceed to the nearest Emergency Room if you have not urina leydi/voided in 8 hours after discharge. IV Site Care Instructions: ? Monitor IV site for pain, redness, swelling and/or drainage. If present, call your Docto r immediately. ? Minor redness and/or tenderness may be treated with warm, moist compresses for 24-48 hour s. If the area is still red and/or tender after this, notify your Doctor. Call your Doctor if you experience: ? Persistent nausea or vomiting. ? Fever ?101F or chills. ? Increased or uncontrolled pain despite taking pain medications. Call 911 if you experience difficulty breathing or unusual shortness of breath. Additional Home Care Instructions: See attached instructions for drain care Follow-up Appointment: After arriving home you may receive a patient satisfaction survey from "Ana Paula Vega". Vazquez gay appreciate your feedback on the survey to help us provide excellent service to you and your family. AttachmentsThe following attachments cannot be sent through Care Everywhere.SURGICAL DRAIN CARE (CUBAN)documented in this encounter Medications at Time of [...] | | | | | | [place] [address] | | +--------+ + + + + documented as of this encounter Procedures + +--------+ + + + | Procedure Name | Priori | Date/Time | Associated Diagnosis | Comments | | | ty | | | | + +--------+ + + + | OPERATION RECORD | | 03/04/2015 | | Results for this | | | | 11:16 AM | | procedure are in the | | | | PST | | results section. | + +--------+ + + + | PANNICULECTOMY | Electi | 03/03/2015 | E88.1 | | | (PLASTICS) | ve | 7:28 AM | | | | | Surgic | PST | | | | | al | | | | + +--------+ + + + +---+--------+ | | | | | Specia | | | l | | | Needs | | | HIGH | | | RISK - | | | DAY | | | SURGER | | | Y | +---+--------+ + +--------+ +---+ + | ANTIBODY SCREEN | Routin | 03/03/2015 | | Results for this | | | e | 6:24 AM | | procedure are in the | | | | PST | | results section. | + +--------+ +---+ + | ABO & RH TYPE | Urgent | 03/03/2015 | | Results for this | | | | 6:24 AM | | procedure are in the | | | | PST | | results section. | + +--------+ +---+ + documented in this encounter Results OPERATION RECORD (03/04/2015 11:16 AM PST) + + | Transcriptions | + + | Neto Lockhart MD - 03/03/2015 1:44 PM PST Date of Service: 03/03/2015 | | Attending Surgeon: Neto Lockhart MD Piping Designer(s): Nasrin | | Tiesha Becerra MD Anesthesia: General endotracheal tube | | anesthesia.Anesthesiologist: Fredrick Pizarro MD, PHDPreoperative Diagnoses: 1. Excess | | abdominal skin, status post weight loss surgery. 2. Multiple sclerosis.3. Depression.4. | | History of intertriginous candidiasis.Postoperative Diagnoses: Same as aboveProcedure: | | Panniculectomy.Findings: Total weight of tissue removed from his abdominal wall was | | 1500 g.Pathology: None.Intravenous Fluids: 1700 mL crystalloid.Urine Output: 200 | | mL.Estimated Blood Loss: 50 mL.Drains: Two 19-Slovak Chito drains - one drain along | | each gutter.Complications: None.Surgical Time: Start time at 08:18 am; end time at | | 09:53 amIndication: The patient is a 64-year-old male status post weight loss surgery. | | He has excess abdominal skin and subcutaneous tissue. The patient complained of | | recurrent skin rashes along his abdominal skin fold. The patient has lost over 200 | | pounds since his weight loss surgery. His weight has been stable for the last 6 months. | | He has excess abdominal skin both vertically and horizontally with a ptotic mons. The | | patient has significant amount of rash around his umbilicus. A [id number] | | abdominoplasty with monsplasty and liposuction were proposed to the patient's insurance | | and patient to correct his contour deformities. However, his insurance only approved | | for a panniculectomy. Informed patient that we will be able to remove more excess skin | | if his umbilicus is removed at the time of panniculectomy. The patient wishes to have | | more skin removed and was fine for us to remove his umbilicus. Therefore, a | | panniculectomy with removal of umbilicus was proposed to the patient. The surgical | | benefits, risks, complications, expected results, and alternatives were discussed with | | the patient in great detail. Informed patient that he will still have some excess skin | | in his bilateral flank region due to his excess skin and body habitus. He voiced | | understanding and wished to proceed with surgery.Detailed Operative Report: The patient | | was marked in a standing position in the preoperative holding area. All questions and | | concerns were answered. He was then transferred to the operating room and placed supine | | on the operating table. He had sequential compression devices to his bilateral lower | | extremities which were started prior to induction. After adequate general endotracheal | | tube anesthesia, the patient's abdomen was then prepped and draped in the standard | | surgical fashion with ChloraPrep. A timeout was then performed with the surgical team | | including the correct patient, correct procedure, and correct surgical site. He | | received Ancef as his preoperative antibiotic. The attention was turned to patient's | | abdomen. A #10-blade was used to make an incision along his inferior abdominal marking. | | Electrocautery was then used to take the incision down to his abdominal fascia. | | Larger vessels were clipped and divided. His abdominal flap was then advanced | | inferiorly. The patient's superior abdominal marking was confirmed. A #10 blade was | | then used to make an incision along his superior abdominal marking. Electrocautery was | | then used to take the incision down to the abdominal fascia. Excess abdominal skin and | | subcutaneous tissue was excised and passed off the field. The surgical field was then | | irrigated with normal saline. Adequate hemostasis was obtained with electrocautery. | | Local anesthesia with 1% lidocaine with epinephrine mixed with 0.5% Marcaine in a 50:50 | | mixture was then injected to patient's abdominal wall as regional blocks. Two 19-Slovak | | Blakes were then placed in the abdominal wall with one drain along each gutter. The | | incision was then closed in layers with 2-0 Maxon for Tamara's in a buried interrupted | | fashion, 3-0 V-Loc for dermis in a simple running fashion and 3-0 Prolene for skin in a | | running subcuticular fashion. The drains were secured to the skin with 2-0 nylon | | sutures. The total weight of tissue removed from his abdominal wall was 1500 g. All | | drains were shortened and connected to bulb suction. Biopatch was placed around each | | drain site. Bacitracin was then applied along the incision, covered with Xeroform, | | gauze, and secured in place with a compression garment. The patient tolerated the | | procedure well without any complications. At the end of the case, all instrument counts | | were complete and correct. The patient was then awakened from anesthesia, extubated, | | and transferred to the recovery room in stable condition. The patient was informed of | | the operating findings. The patient's friend was not in the waiting room.Neto | | BERNADETTE Lockhart/KAILEYLDD: 03/03/2015 12:30:41DT: 03/03/2015 13:44:15Job #: [id number] | | | |At the end of the case, all instrument counts were complete and correct. The patient was t hen awakened from anesthesia, extubated, and transferred to the recovery room in stable cond ition. The patient was informed of the | |operating findings. The patient's friend was not in the waiting room. | | | |Neto Lockhart MD | |SC/MODL | | | | | | /[id number] | + + ANTIBODY SCREEN (03/03/2015 6:24 AM PST) + + + + + + | Component | Value | Ref Range | Performed | Pathologist | | | | | At | Signature | + + + + + + | Antibody | Negative | | [facility] | | | Screen | | | LABORATORY | | | | | | SERVICES, | | | | | | TRANSFUSION | | | | | | MEDICINE | | + + + + + + + + | Specimen | + + | Blood - Blood | + + + + + + + | Performing | Address | City/State/Zipcode | Phone Number | | Organization | | | | + + + + + | [facility] | [address] | [place] [address] | | | SERVICES, | [address] | | | | TRANSFUSION MEDICINE | | | | + + + + + ABO & RH TYPE (03/03/2015 6:24 AM PST) + + + + + + | Component | Value | Ref Range | Performed | Pathologist | | | | | At | Signature | + + + + + + | ABO Group | A | | [facility] | | | | | | LABORATORY | | | | | | SERVICES, | | | | | | TRANSFUSION | | | | | | MEDICINE | | + + + + + + | Rh Type | Positive | | [facility] | | | | | | LABORATORY | | | | | | SERVICES, | | | | | | TRANSFUSION | | | | | | MEDICINE | | + + + + + + + + | Specimen | + + | Blood - Blood | + + + + + + + | Performing | Address | City/State/Zipcode | Phone Number | | Organization | | | | + + + + + | [facility] | [address] | [place] [address] | | | SERVICES, | [address] | | | | TRANSFUSION MEDICINE | | | | + + + + + documented in this encounter Visit Diagnoses Not on filedocumented in this encounter Administered Medications + +--------+ +-------+------+ + | Medication Order | MAR | Action | Dose | Rate | Site | | | Action | Date | | | | + +--------+ +-------+------+ + | bupivacaine | Given | 03/03/20 | 20 mL | | Surgical | | (MARCAINE,SENSORCAINE) 0.5 % (5 | | 15 9:06 | | | Site | | mg/mL) injection INTRAPROCEDURE | | AM PST | | | | | PRN, Starting Mon03/03/15 at | | | | | | | 0906, Until Mon03/03/15 at 1003 | | | | | | + +--------+ +-------+------+ + +---+---+ | | | +---+---+ + +---------+ + + +---+ | lactated ringers IV 10 mL/hr, | New Bag | 03/03/20 | 10 mL/hr | 10 mL/hr | | | intravenous, PROCEDURE | | 15 7:32 | | | | | CONTINUOUS, Starting 03/03/15 | | AM PST | | | | | at 0615, Until 03/03/15 at | | | | | | | 1823 | | | | | | + +---------+ + + +---+ +---+---+ | | | +---+---+ + +-------+ +-------+---+ + | lidocaine 1% w/ EPI | Given | 03/03/20 | 40 mL | | Surgical | | 1:100K-bupivacaine 0.5% w/ EPI | | 15 8:46 | | | Site | | 1:100K injection INTRAPROCEDURE | | AM PST | | | | | PRN, Starting Mon03/03/15 at | | | | | | | 0846, Until Mon03/03/15 at 1003 | | | | | | + +-------+ +-------+---+ + +---+---+ | | | +---+---+ + +-------+ +-------+---+---+ | oxyCODONE (immediate release) | Given | 03/03/20 | 10 mg | | | | (ROXICODONE) tablet 5-10 mg 5-10 | | 15 10:35 | | | | | mg, oral, EVERY 4 HOURS | | AM PST | | | | | NEEDED, Starting Mon03/03/15 at | | | | | | | 0657, Until Mon03/03/15 at 1823, | | | | | | | severe pain | | | | | | + +-------+ +-------+---+---+ + +---+ | | | + +---+ | oxyCODONE (immediate release) | | | (ROXICODONE) tablet 1 dose, | | | Starting 03/03/15 at 1034, | | | Until e 03/03/15 at 1035 | | + +---+ | | | + +---+ documented in this encounter
--- OUTSIDE RECORDS SUMMARY | ~2019-08-23 | XMS | Encounter Summary ---
Demographics + + + | Address | [address] | | | [place] [address] | + + + | Home Phone | | + + + | Preferred Language | Unknown | + + + | Marital Status | | + + + | Anglican Affiliation | Unknown | + + + | Race | Unknown | + + + | Ethnic Group | Unknown | + + + Author + + + | Author | [facility] | | | and Jadenana | + + + | Organization | [facility] | | | and [...] | | | | | [place] [address] | | + + + + + Care Team Providers + +------+ + | Care Adjudication Specialist Name | Role | Phone | + +------+ + | Shmuel Merrill | | + +------+ + Reason for Visit +--------+ + | Reason | Comments | +--------+ + | Other | | +--------+ + Encounter Details +--------+ + + + + | Date | Type | Department | Care Team | Description | +--------+ + + + + | 03/18/ | Telephone | [facility] | Lexie Cagle | Other | | 2019 | | MEDICINE [address] | [address] | | | | | [address] [place] | [facility] | | | | | [place] [address] | [place] [address] | | | | | [phone] | [phone] | | | | | | | [...] 2019 | Visit | | [address] | | | | | | [place] | | | | | | [address] | | | | | | | | +--------+---------+ + + + documented as of this encounter Visit Diagnoses Not on filedocumented in this encounter"
--- OUTSIDE RECORDS SUMMARY | ~2019-08-23 | XMS | Encounter Summary ---
Demographics + + + | Address | [address] | | | [place] [address] | + + + | Home Phone | | + + + | Preferred Language | Unknown | + + + | Marital Status | Single | + + + | Protestant Affiliation | ADVENTIST | + + + [...] Team Providers + +------+ + | Care Wellness Manager Name | Role | Phone | [...] (OU) | | 2016 | Visit | [place] | | | | | | Photography at [facility] | | | | | | [address] | | | | | | Mailcode: CH11P | | | | | | [facility] | | | | | | and Healing, | | | | | | Building | | | | | | Floor [place], [place] | | | | | | [address] | | | | | | [phone] | | | +--------+ + + + [...] | | | | | | [place] [address] | | +--------+ + + + + documented as of this encounter Visit Diagnoses + + | Diagnosis | + + | Decreased vision in both eyes Moderate or severe vision impairment, both eyes, | | impairment level not further specified | + + documented in this encounter"
--- OUTSIDE RECORDS SUMMARY | ~2019-08-23 | XMS | Encounter Summary ---
Demographics + + + | Address | [address] | | | [place] [address] | + + + | Home Phone | | + + + | Preferred Language | Unknown | + + + | Marital Status | Single | + + + | Orthodox Affiliation | JEHOVAH'S WITNESS | + + [...] Team Providers + +------+ + | Care Snowblower Mechanic Name | Role | Phone | [...] | +--------+ + + + + | 07/31/ | Telephone | [facility] | Liliana Conteh, | Lab Results | | 2014 | | Center at [facility] [address] | [facility] [address] | | | | | [address] | [place], [place] | | | | | Mailcode: [place] | [address] | | | | | for Health and | | | | | | [facility] [address] | | | | | | [place], [place] | | | | | | [address] | | | | | | | [...] | | | | | | [place] [address] | | +--------+ + + + + documented as of this encounter Visit Diagnoses Not on filedocumented in this encounter"
--- OUTSIDE RECORDS SUMMARY | ~2019-08-23 | XMS | Encounter Summary ---
Demographics + + + | Address | [address] | | | [place] [address] | + + + | Home Phone | | + + + | Preferred Language | Unknown | + + + | Marital Status | Single | + + + | Pentecostalism Affiliation | HINDU | + + + [...] Team Providers + +------+ + | Care Box Builder Name | Role | Phone | + +------+ + | Rudolph Lee MD | PCP | | + +------+ + Encounter Details +--------+ + + + + | Date | Type | Department | Care Team | Description | +--------+ + + + + | 03/19/ | Office | | Report, Outpatient | Progress Note | | 2001 | Visit-Trans | | Consultation | | [...] as of this encounter Progress Notes Interface, Alarm Investigator In - 10/23/2005 3:09 AM PDT [place] [facility] OUTPATIENT CONSULTATION REPORT [id number] [place], [place] [address] or Referred From and Faxed To:Colin Posada M.D., Surgeon. Referred To: Phone Consult Outpatient Nutrition Clinic. CONSULTING PHYSICIAN: Shelly Hamilton R.D., L.D. MR#: [id number] Patient: Mian Marquez CONSULTATION DATE: 03/17/2002 SUBJECTIVE: This patient has called four times. He called on March 05 requesting post gastric bypass information. I E-mailed him the information. He could not open it when he received it on March 08. He called back and requested hard-copy information of diet materials. I sent that information to him on March 08 encouraging him to read the materials and to be careful not to push the progression of his diet too fast. He stated that he was eating toast at this point and doing okay. Also answered questions about a protein drink that his purchased for him. The drink is fine. I told him it is a fine thing to drink, convenient to have at work as long as he tolerates milk, that milk would be less expensive, perhaps taste better. I encouraged him to take his multivitamin and calcium. On March 14, I called him to confirm that he received the diet information sent to him. He had not read it yet. I encouraged him to read the information. March 15, Mr. Marquez called for two reasons. One, he called in his medical record number that I had requested three times. Also, he said he had a problem with chicken on March 14. He had called and talked to Virginia Mccauley, and he basically said his chicken had gotten stuck. He was requesting diet information and wanted to make sure that this did not happen again. I provided the information as follows: Encouraged him to read the package of information that I both E-mailed and sent the hard copy to him which addresses chewing foods very thoroughly and eating very slowly. For example: A 2- to 3-ounce portion of chicken, boneless skinless chicken, should take him approximately 15 minutes to eat. I suggested that he keeps very strict portion controls, and when he is eating his meals, perhaps set a kitchen timer to really slow down his pace. I feel that he was eating too large a portion and ate it too quickly. When he answers his phone at his work place, he seems to be in a real fast-pace mode. 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 So, therefore, I suggested liquids. At this point, I feel that he needs to practice slowing down his food intake in a much more relaxed environment at home and then gradually, once he has established those eating habits, he could start adding foods at work. Reconfirmed the importance of protein in his diet. PLAN: 1. Suggested that he read the material sent to him. 2. Slow down his eating. 3. Prioritize protein. 4. Continue with his vitamin and calcium supplement. Shelly Hamilton R.D., LNatalieD. /alvaro P [phone] Fax copy to Colin Posada M.D.Electronically signed by Interface, Alarm Investigator In at 3:09 AM PDTdocumented in this encounter Plan of Treatment +--------+ + + + + | Date | Type | Specialty | Care Team | Description | +--------+ + + + + | 10/31/ | Appointment | Hematology & | Onc, Gen [address] | | | 2019 | | Oncology | [address] [place], | | | | | | [place] [address] | | +--------+ + + + + documented as of this encounter Visit Diagnoses Not on filedocumented in this encounter"
--- OUTSIDE RECORDS SUMMARY | ~2019-08-23 | XMS | Encounter Summary ---
Demographics + + + | Address | [address] | | | [place] [address] | + + + | Home Phone | | + + + | Preferred Language | Unknown | + + + | Marital Status | Single | + + + | Methodist Affiliation | MORAVIAN | + + + [...] Team Providers + +------+ + | Care Janitor Helper Name | Role | Phone | + +------+ + PCP | Unavailable | + +------+ + Encounter Details +--------+ + + + + | Date | Type | Department | Care Team | Description | +--------+ + + + + | 03/15/ | Results | General Surgery | Gary Yeager, | | | 2003 | Only | [address] | [address] | | | | | Loop Mailcode: | [address] | | | | | [id number] Physician's | [place], [place] | | | | | [address] | [address] | | | | | [place], [place] | [phone] | | | | | [address] | | | | | | [phone] | | | +--------+ + + + [...] | | | | | | [place] [address] | | +--------+ + + + + documented as of this encounter Procedures + +--------+ + + + | Procedure Name | Priori | Date/Time | Associated Diagnosis | Comments | | | ty | | | | + +--------+ + + + | COMPLETE METABOLIC | Routin | 03/15/2004 | | Results for this | | SET | e | 2:56 PM | | procedure are in the | | (NA,K,CL,CO2,BUN,CRE | | PST | | results section. | | AT,GLUC,CA,AST,ALT,B | | | | | | LILY TOTAL,ALK | | | | | | PHOS,ALB,PROT TOTAL) | | | | | + +--------+ + + + | CBC ONLY | Routin | 03/15/2004 | | Results for this | | | e | 2:56 PM | | procedure are in the | | | | PST | | results section. | + +--------+ + + + documented in this encounter Results CBC ONLY WITH PLATELET (03/15/2004 2:56 PM PST) + +-------+ + + + | Component | Value | Ref Range | Performed | Pathologist | | | | | At | Signature | + +-------+ + + + | WHITE CELL | 7.5 | 4.4 - 11.0 K/cu | [facility] | | | COUNT | | mm | DEPARTMENT | | | | | | OF | | | | | | PATHOLOGY | | + +-------+ + + + | RED CELL | 4.77 | 4.20 - 5.90 | [facility] | | | COUNT | | M/cu mm | DEPARTMENT | | | | | | OF | | | | | | PATHOLOGY | | + +-------+ + + + | HEMOGLOBIN | 15.4 | 13.0 - 17.5 | [facility] | | | | | g/dL | DEPARTMENT | | | | | | OF | | | | | | PATHOLOGY | | + +-------+ + + + | HEMATOCRIT | 45.1 | 38.0 - 50.4 % | [facility] | | | | | | DEPARTMENT | | | | | | OF | | | | | | PATHOLOGY | | + +-------+ + + + | MCV | 94.5 | 80.0 - 96.0 fL | [facility] | | | | | | DEPARTMENT | | | | | | OF | | | | | | PATHOLOGY | | + +-------+ + + + | MCH | 32.3 | 28.5 - 32.3 pg | [facility] | | | | | | DEPARTMENT | | | | | | OF | | | | | | PATHOLOGY | | + +-------+ + + + | MCHC | 34.2 | 33.4 - 35.5 | [facility] | | | | | g/dL | DEPARTMENT | | | | | | OF | | | | | | PATHOLOGY | | + +-------+ + + + | RDW | 13.1 | 11.5 - 15.0 % | [facility] | | | | | | DEPARTMENT | | | | | | OF | | | | | | PATHOLOGY | | + +-------+ + + + | PLATELET | 206 | 150 - 400 K/cu | [facility] | | | COUNT | | mm | DEPARTMENT | | | | | | OF | | | | | | PATHOLOGY | | + +-------+ + + + | MPV | 8.7 | 7.4 - 10.4 fL | [facility] [...] | + + + + + | [facility] DEPARTMENT OF | [address] [facility] | [place] [address] | | | PATHOLOGY | [address] | | | + + + + + | [place] DEPARTMENT OF | [address] [facility] | [place] [address] | | | PATHOLOGY | [address] | | | + + + + + COMP METABOLIC SET (03/15/2004 2:56 PM PST) + +--------+ + + + | Component | Value | Ref Range | Performed | Pathologist | | | | | At | Signature | + +--------+ + + + | GLUCOSE, | 103 | 65 - 110 mg/dL | [facility] | | | PLASMA | | | DEPARTMENT | | | (LAB) | | | OF | | | | | | PATHOLOGY | | + +--------+ + + + | BUN, PLASMA | 16 | 6 - 20 mg/dL | [facility] [...] +--------+ + + + | TOTAL | 7.1 | 6.1 - 7.9 g/dL | [facility] [...] +--------+ + + + | CALCIUM, | 9.4 | 8.5 - 10.5 | [facility] | | | PLASMA | | mg/dL | DEPARTMENT | | | (LAB) | | | OF | | | | | | PATHOLOGY | | + +--------+ + + + | BILIRUBIN | 0.6 | 0.3 - 1.2 mg/dL | [facility] | | | TOTAL | | | DEPARTMENT | | | | | | OF | | | | | | PATHOLOGY | | + +--------+ + + + | ALK PHOS | 65 | 53 - 128 U/L | [facility] | | | | | | DEPARTMENT | | | | | | OF | | | | | | PATHOLOGY | | + +--------+ + + + | AST(SGOT) | 25 | 15 - 41 U/L | [facility] [...] +--------+ + + + | POTASSIUM, | 4.1 | 3.5 - 5.1 | [facility] | | | PLASMA | | mmol/L | DEPARTMENT | | | (LAB) | | | OF | | | | | | PATHOLOGY | | + +--------+ + + + | CHLORIDE, | 104 | 98 - 107 mmol/L | [facility] | | | PLASMA | | | DEPARTMENT | | | (LAB) | | | OF | | | | | | PATHOLOGY | | + +--------+ + + + | TOTAL CO2, | 32 (H) | 23 - 29 mmol/L | [facility] | | | PLASMA | | | DEPARTMENT | | | (LAB) | | | OF | | | | | | PATHOLOGY | | + +--------+ + + + | ALT (SGPT) | 28 | 13 - 48 U/L | [facility] [...] | + + + + + | [facility] | [facility] | [place] [address] | | | PATHOLOGY | [address] | | | + + + + + | [facility] | [facility] | [place] [address] | | | PATHOLOGY | [address] | | | + + + + + documented in this encounter Visit Diagnoses Not on filedocumented in this encounter"
--- OUTSIDE RECORDS SUMMARY | ~2019-08-23 | XMS | Encounter Summary ---
Demographics + + + | Address | [address] | | | [place] [address] | + + + | Home Phone | | + + + | Preferred Language | Unknown | + + + | Marital Status | Single | + + + | Restoration Affiliation | BAPTIST | + + + | Race | [...] Team Providers + +------+ + | Care Lens Blocker Name | Role | Phone | + +------+ + | Jose Hameed MD | PCP | | + +------+ + Encounter Details +--------+ + + + + | Date | Type | Department | Care Team | Description | +--------+ + + + + | 10/31/ | Demolition Expert | [facility] | [place], | | | 2018 | | Clinics at | MD [address] | | | | | [facility] | [address], | | | | | for Health and | [place] [address] | | | | | Healing [address] | [phone] | | | | | [place] | | | | | | [address] | | | | | | [phone] | | | +--------+ + + + [...] | | | | | | [place] [address] | | +--------+ + + + + documented as of this encounter Visit Diagnoses Not on filedocumented in this encounter"
--- OUTSIDE RECORDS SUMMARY | ~2019-08-23 | XMS | Encounter Summary ---
Demographics + + + | Address | [address] | | | [place] [address] | + + + | Home Phone | | + + + | Preferred Language | Unknown | + + + | Marital Status | Single | + + + | Zoroastrian Affiliation | ADVENTIST | + + + [...] Team Providers + +------+ + | Care Broiler Manager Name | Role | Phone | + +------+ + | Trevin Delacruz MD | PCP | | + +------+ + Encounter Details +--------+ + + + + | Date | Type | Department | Care Team | Description | +--------+ + + + + | 08/26/ | Telephone | Digestive Health | Liliana Conteh, | | | 2014 | | [place] [facility] [address] | [facility] [address] | | | | | [address] | [address] [facility] [place] | | | | | Mailcode: [place] | [address] | | | | | [facility] and | [phone] | | | | | [facility] [place] [address] | | | | | | [place], [place] | | | | | | [address] | | | | | | | [...] | | | | | | [place] [address] | | +--------+ + + + + documented as of this encounter Visit Diagnoses Not on filedocumented in this encounter"
--- OUTSIDE RECORDS SUMMARY | ~2019-08-23 | XMS | Encounter Summary ---
Demographics + + + | Address | [address] | | | [place] [address] | + + + | Home Phone | | + + + | Preferred Language | Unknown | + + + | Marital Status | | + + + | Zoroastrianism Affiliation | Unknown | + + + | Race | Unknown | + + + | Ethnic Group | Unknown | + + + Author + + + | Author | [facility] | | | and [place] | + + + | Organization | [facility] | | | and [place] [...] | | | | | [place] [address] | | + + + + + Care Team Providers + +------+ + | Care Environmental Health Technician Name | Role | Phone | + +------+ + | Lexie Cagle | PCP | | | BREAKER MACHINE OPERATOR | | | + +------+ + Reason for Visit +---------+ + | Reason | Comments | +---------+ + | Post-Op | Cystoscopy with stent removal for nephrolithiasis | +---------+ + Encounter Details +--------+---------+ + + + | Date | Type | Department | Care Team | Description | +--------+---------+ + + + | 01/11/ | Office | [facility] | Michael Fernandes | Nephrolithiasis | | 2019 | Visit | [address] | MD [address] | (Primary Dx) | | | | PRECIOUS [place] | PRECIOUS EM | | | | | [address] | [address] | | | | | [phone] | | | +--------+---------+ + + + [...] + + + | Blood Pressure | 130/72 | 01/11/2019 11:24 AM | | | | | PDT | | + + + + + | Pulse | 80 | 01/11/2019 11:24 AM | | | | | PDT | | + + + + + | Temperature | - | - | | + + + + + | Respiratory Rate | 16 | 01/11/2019 11:24 AM | | | | | PDT | | + + + + + | Oxygen Saturation | - | - | | + + + + + | Inhaled Oxygen | - | - | | | Concentration | | | | + + + + + | Weight | 93.3 kg (205 lb 11 | 01/11/2019 11:24 AM | | | | oz) | PDT | | + + + + + | Height | 177.8 cm (5' 10") | 01/11/2019 11:24 AM | | | | | PDT | | + + + + + | Body Mass Index | 29.51 | 01/11/2019 11:24 AM | | | | | PDT | | + + + + + documented in this encounter Progress Notes Michael Fernandes MD - 01/11/2019 11:15 AM PDTFormatting of this note might be differ ent from the original. Chief Complaint Patient presents with Post-Op Cystoscopy with stent removal for nephrolithiasis HPI Mian Marquez is a 68 y.o. male patient of Lexie Cagle APRN here today for a Post-Op Cystoscopy with stent removal for nephrolithiasis. Consent form signed & time out form completed MS-diagnosed in 1997, symptoms have been relatively stable with the exception of the bladde r History of neurogenic bladder detrusor instability with impaired contractility ISD Nephrolithiasis Patient is colonized with ESBL Patient presents today to discuss CT scan results. He continues to complain of significant right-sided back and flank pain. He states that time this pain can be almost immobilizing. The pain is described as constant and is made worse by laying down for significant periods of time. Standing and walking tends to help alleviate the pain. Recent CT scan results sh ow a large stone in the lower pole of the right kidney however no signs of obstruction. Cystoscopy Preprocedure timeout was performed. The patient's genitals were then prepped and draped us ual fashion. 10 mL's of viscous lidocaine was instilled per urethra. The scope was then in troduced into the urethra. The anterior urethra was grossly normal. Upon entering the blad ileana the right ureteral stent was visualized and using a pair of graspers was removed. The p atient tolerated the procedure well. Assessment Mian was seen today for post-op. 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 Multiple sclerosis (HCC) Neurogenic bladder intermittment catheterizes Pulmonary emboli (HCC) 1979 Right flank pain 12/20/2018 Right nephrolithiasis 12/20/2018 Sleep apnea not using CPAP Past Surgical History Past Surgical History: Procedure Laterality Date ANKLE FRACTURE SURGERY BACK SURGERY nerve stimulators BLADDER SURGERY N/A 06/20/2018 Procedure: Cystoscopy, suprapubic catheter placement; Surgeon: Michael Fernandes MD; Location: [facility] MAIN OR CHOLECYCTOSTOMY CYSTOSCOPY N/A 04/19/2018 Procedure: Cystoscopy, bladder Botox, injection of urethral bulking agent; Surgeon: Gina Fernandes MD; Location: [facility] MAIN OR GASTRIC BYPASS SURGERY 2001 2 x HAND SURGERY 07/2018 KNEE SURGERY Bilateral LAP BAND 2010 URETEROSCOPY Right 01/03/2019 Procedure: CYSTOSCOPY Right URETEROSCOPY W/ LASER lithotripsy and stent; Surgeon: Michael Fernandes MD; Location: [facility] MAIN OR urinary stimulator 2005 VARICOSE VEIN SURGERY Family History: Family History Problem Relation Age [...] Medications: amantadine (SYMMETREL) 100 mg capsule, Take 100 mg by mouth as needed., Disp: , Rfl: Blood Glucose Monitoring Suppl KIT, 1 kit by Does not apply route Daily. Daily and as needed as directed by provider, Disp: 1 each, Rfl: 0 cholecalciferol (CHOLECALCIFEROL) 5000 units TABS, Take 5,000 Units by mouth Daily., D isp: , Rfl: DULoxetine (CYMBALTA) [address] capsule, Take 60 mg by mouth nightly., Disp: , Rfl: gabapentin (NEURONTIN) 300 mg capsule, Take 300 mg by mouth nightly as needed., Disp: , Rfl: HYDROcodone-acetaminophen (NORCO) 5-325 mg per tablet, Take 1-2 tablets by mouth every 4 hours as needed for Pain., Disp: 25 tablet, Rfl: 0 HYDROcodone-acetaminophen (NORCO) 5-325 mg per tablet, Take 1-2 tablets by mouth every 6 hours as needed for Pain (severe back pain)., Disp: 21 tablet, Rfl: 0 Iron Sucrose (VENOFER IV), Inject into the vein Every 3 months., Disp: , Rfl: oxybutynin (DITROPAN-XL) 10 MG 24 hr tablet, Take 1 tablet by mouth 2 times daily., Di sp: 60 tablet, Rfl: 3 oxyCODONE (ROXICODONE) 5 mg tablet, Take 1 tablet by mouth every 8 hours as needed for Pain., Disp: 20 tablet, Rfl: 0 rOPINIRole (REQUIP) 2 MG tablet, Take 1 tablet by mouth nightly., Disp: 90 tablet, Rfl : 1 traZODone (DESYREL) 100 mg tablet, Take 1 tablet by mouth nightly., Disp: 30 tablet, R fl: 0 UNKNOWN TO PATIENT, Inject into the vein. Infusion for MS Twice a year (patient doesn 't know name), Disp: , Rfl: warfarin (COUMADIN) 5 mg tablet, 1 tab by mouth every evening, or as directed by kaylie tejeda, Disp: 30 tablet, Rfl: 1 Review of Systems Constitutional: Negative for chills and fever. Cardiovascular: Negative for chest pain and leg swelling. Gastrointestinal: Negative for nausea and vomiting. Objective BP 130/72 | Pulse 80 | Resp 16 | Ht 1.778 m (5' 10") | Wt 93.3 kg (205 lb 11 oz) | BMI 29.51 kg/m General Appearance: Alert, cooperative, no distress, appears stated age Head: Normocephalic, without obvious abnormality, atraumatic Lungs: Regular, unlabored breathing MS No CVA tenderness, tenderness noted at the right SI joint and sacrum, tenderness extends to the buttock and lateral hip. Abdomen: Soft, non-tender, no masses Extremities: Extremities normal, atraumatic, no cyanosis, clubbing, or edema Pulses: Radial pulses 2+ and symmetric Skin: Warm and dry Lymph nodes: Cervical and supraclavicular nodes normal Neurologic: Gait normal, CN 2-12 grossly intact; Strength decreased in lower extremeties Data: CT scan the abdomen pelvis November 2018 I personally viewed and interpreted CT scan images. Significant for approximately [address] one in the lower pole of the right kidney. There are no other stones present. The stone is nonobstructing and there is no evidence of hydronephrosis or mass. Left kidney appears rel atively normal. There is no evidence of hydronephrosis stone or mass. Plain film x-rays of the lumbar spine November 2018 Personally viewed and interpreted x-ray images. Significant for approximately 1 cm x 1.5 cm calcification seen in what is likely the lower pole of the right kidney. Results for orders placed or performed in visit on 01/10/19 External Lab: [facility] INR Result Value Ref Range INR, External 1.3 (A) 0.9 - 1.2 Lab Results Component Value Date CREA 1.02 12/20/2018 Lexie Cagle APRN's notes were reviewed in clinic today. No follow-ups on file.. This document was generated in part using voice recognition software. Frequent wrong word or sound-alike substitutions may have occurred due to the inherent limitations of the voice recognition software. Although I have attempted to edit the content, I have not thoroughly proofread this note, and community educator errors are very likely to occur. CC: [...] [place] | | | | | | [id number] | | | | | | | | +--------+---------+ + + + documented as of this encounter Procedures + +--------+ + + + | Procedure Name | Priori | Date/Time | Associated Diagnosis | Comments | | | ty | | | | + +--------+ + + + | IMAGING REPORT - | | 01/18/2019 | | Results for this | | EXTERNAL SCAN | | 12:00 AM | | procedure are in the | | | | PDT | | results section. | + +--------+ + + + | IMAGING REPORT - | | 01/18/2019 | | Results for this | | EXTERNAL SCAN | | 12:00 AM | | procedure are in the | | | | PDT | | results section. | + +--------+ + + + documented in this encounter Results IMAGING REPORT - EXTERNAL SCAN (01/18/2019 12:00 AM PDT) + + + | Narrative | Performed At | + + + | Ordered by an | | | unspecified provider. | | + + + IMAGING REPORT - EXTERNAL SCAN (01/18/2019 12:00 AM PDT) + + + | Narrative | Performed At | + + + | Ordered by an | | | unspecified provider. | | + + + documented in this encounter Visit Diagnoses + + | Diagnosis | + + | Nephrolithiasis - Primary Calculus of kidney | + + documented in this encounter
--- OUTSIDE RECORDS SUMMARY | ~2019-08-23 | XMS | Encounter Summary ---
Demographics + + + | Address | [address] | | | [place] [address] | + + + | Home Phone | | + + + | Preferred Language | Unknown | + + + | Marital Status | Single | + + + | Mosque Affiliation | ROMAN CATHOLIC | + + [...] Team Providers + +------+ + | Care Sap Treasury Consultant Name | Role | Phone | + +------+ + | Jose Hameed MD | PCP | | + +------+ + Encounter Details +--------+ + + + + | Date | Type | Department | Care Team | Description | +--------+ + + + + | 05/03/ | Clinical Laboratory Medical Director | [facility] | [place], | | | 2019 | | Clinics at | MD [address] | | | | | [facility] | [place], | | | | | for Health and | [place] [address] | | | | | Healing [address] | [phone] | | | | | [place] | | | | | | [address] | | | | | | [phone] | | | +--------+ + + + [...] | | | | | | [place] [address] | | +--------+ + + + + documented as of this encounter Visit Diagnoses Not on filedocumented in this encounter"
--- OUTSIDE RECORDS SUMMARY | ~2019-08-23 | XMS | Encounter Summary ---
Demographics + + + | Address | [address] | | | [place] [address] | + + + | Home Phone | | + + + | Preferred Language | Unknown | + + + | Marital Status | Single | + + + | Catholic Affiliation | TAOIST | + + + | Race | [...] Team Providers + +------+ + | Care Biztalk Architect Name | Role | Phone | + [...] Treatment Question | | 2015 | | [place] [address] [address] | | | | | | [address] | | | | | | Mailcode: [place] | | | | | | [facility] | | | | | | [facility] [address] | | | | | | [place], [place] | | | | | | [address] | | | | | | [phone] | | | +--------+ + + + [...] | | | | | | [place] [address] | | +--------+ + + + + documented as of this encounter Visit Diagnoses Not on filedocumented in this encounter"
--- OUTSIDE RECORDS SUMMARY | ~2019-08-23 | XMS | Encounter Summary ---
Demographics + + + | Address | [address] | | | [place] [address] | + + + | Home Phone | | + + + | Preferred Language | Unknown | + + + | Marital Status | Single | + + + | Islam Affiliation | MORMON | + + + [...] Team Providers + +------+ + | Care Billet Sawyer Name | Role | Phone | + [...] | | | | CONSULT TO | [place], [place] | Mailcode: | | | | | SURGERY - | [address] | [facility] | | | | | PLASTICS | Phone: | for Health | | | | | | [phone] | and Healing, | | | | | | Fax: | Building 1, | | | | | | [phone] | 5th Floor | | | | | | | [facility] [place] | | | | | | | [address] | | | | | | | Phone: | | | | | | | [phone] | + +--------+ + + + + [...] Ave | | | | | | [place], [place] | [facility] [place] | | | | | | [address] | [address] | | | | | | Phone: | Phone: | | | | | | [phone] | [phone] | | | | | | Fax: | Fax: | | | | | | [phone] | [phone] | +--------+--------+ + + + + Encounter Details +--------+---------+ + + + | Date | Type | Department | Care Team | Description | +--------+---------+ + + + | 11/21/ | Office | Urology at [place] | Shukri Olivier MD | Neurogenic bladder | | 2019 | Visit | [address] | [address] | (Primary Dx); | | | | Mailcode: CH10U | [place], [place] | Incontinence without | | | | [facility] | [address] | sensory awareness; | | | | and Healing, | [phone] | Abdominal pannus | | | | | | | | | | Floor [place], [place] | | | | | | [address] | | | | | | [phone] | | | +--------+---------+ + + + [...] learning to live with a urinary diversion. http://www.bcan.org/learn/bjnrpb-eronwcio-kuqtnaf/ Click on The New Normal: Living with [...] Continent Cutaneous Diversion (various names, most commonly Burleson pouch) A reservoir is also made out of small or large intestine. The most common one performed by Dr. Olivier is an Virginie Pouch, named for [facility] where it was first done in the [...] learning to live with a urinary diversion. http://www.bcan.org/learn/zztrnp-zzzhhmhs-bnneeuu/ Click on The New Normal: Living with a Urinary Diversion YouTube: Go to www.youtube.com and search for Burleson Pouch. Many brave patients share intimat e [...] creamer Clear broth or bouillon Odalys sriram Lemon-[place] soda Lemonade Sports drink (e.g., Gatorade) Ryan-Aid [...] Shukri Olivier MD - 11/21/2018 11:40 AM HMI06wm with multiple sclerosis and neurogenic rufina dder managed with intermittent catheterization. He was referred to me in 2017 for insensible urinary incontinence occurring 30-60 minutes after catheterization and refractory to oxybut ynin, tolterodine, trospium, InterStim, and Botox. Outside urodynamics showed large capacity (700mL) with no detrusor overactivity and no stress urinary incontinence. He now lives in [facility] and has been following with Dr. [...] attached to the catheter. He moved to [facility] to be closer to his grandchildren, which has been a difficult ad justment to him as a [place]. BP 146/85 (BP Location: Left [...] a refer ral to plastic surgery at [facility] to consider his options. I spent 45 [...] | | | | | | [place] [address] | | +--------+ + + + + documented as of this encounter Visit Diagnoses + + | Diagnosis | + + | Neurogenic bladder - Primary Neurogenic bladder, NOS | + + | Incontinence without sensory awareness | + + | Abdominal pannus Localized adiposity | + + documented in this encounter
--- OUTSIDE RECORDS SUMMARY | ~2019-08-23 | XMS | Encounter Summary ---
Demographics + + + | Address | [address] | | | [place] [address] | + + + | Home Phone | | + + + | Preferred Language | Unknown | + + + | Marital Status | | + + + | Yazidism Affiliation | Unknown | + + + | Race | Unknown | + + + | Ethnic Group | Unknown | + + + Author + + + | Author | [facility] | | | and Jadenana | + + + | Organization | [facility] | | | and Jadenana [...] | | | | | [place] [address] | | + + + + + Care Team Providers + +------+ + | Care Surveillance Technician Name | Role | Phone | + +------+ + | Lexie Cagle | PCP | | | IMAGE EDITOR | | | + +------+ + Encounter Details +--------+ + + + + | Date | Type | Department | Care Team | Description | +--------+ + + + + | 11/28/ | Anti-coag | [facility] | CagleLexie hankins | | | 2019 | Telephone | MEDICINE [address] | [address] | | | | | [address] [place] | [address] [place] | | | | | [place] [address] | [place] [address] | | | | | [phone] | [phone] | | | | | | | [...] as of this encounter Progress Notes Madiha uNno LPN - 11/28/2018 2:08 PM Hero KEENAN notified of protime resultsElectronica lly signed by Madiha Nuno LPN at 11/30/2018 10:46 AM Madiha Solorio LPN - 11/28/2018 2 :08 PM PDTLMTCB Lexie Kathleen APRN - 11/28/2018 2:08 PM PDTPt's INR is slightly low. Please check to se e if he missed any doses of warfarin. If he has not missed any doses, he should take 7.5mg t odilia (1.5 tabs) and increase his dose weekly to 7.5mg on Mon and Fri, 5 mg the rest of the w t[place]ak. Recheck INR in 2 weeks. Electronically signed by Lexie Cagle APRN at 11/30 5:23 PM PDTdocumented in this encounter Plan of Treatment +--------+---------+ + + + | Date | Type | Specialty | Care Team | Description | +--------+---------+ + + + | 11/12/ | Office | Sleep Medicine | Laith Sheffield PA | | | 2019 | Visit | | [address] | | | | | | [place] | | | | | | [address] | | | | | | | | +--------+---------+ + + + documented as of this encounter Procedures + +--------+ + + + | Procedure Name | Priori | Date/Time | Associated Diagnosis | Comments | | | ty | | | | + +--------+ + + + | EXTERNAL LAB: | Routin | 11/27/2018 | | Results for this | | PROTIME INR | e | | | procedure are in the | | | | | | results section. | + +--------+ + + + documented in this encounter Results External Lab: Protime INR (11/27/2018) + +-------+ + + + | Component [...] + + | REFERENCE LAB | [address] [facility] | [place] | [phone] | | [facility] | | [address] | | + + + + + | REFERENCE LAB | [address] [facility] [facility] | [place] | [phone] | | [facility] | | [address] | | + + + + + documented in this encounter Visit Diagnoses Not on filedocumented in this encounter"
--- OUTSIDE RECORDS SUMMARY | ~2019-08-23 | XMS | Encounter Summary ---
Demographics + + + | Address | [address] | | | [place] [address] | + + + | Home Phone | | + + + | Preferred Language | Unknown | + + + | Marital Status | Single | + + + | Christianity Affiliation | HOAHAOISM | + + + | Race | White | + + + | Ethnic Group | Not or | + + + Author + + + | Author | [facility] | + + + | Organization | [facility] | + + + | Address | Unknown | + + + | Phone | Unavailable | + + + Support + + +---------+ + | Name | Relationship | Address | Phone | + + +---------+ + | Theodore Marquez | ECON | Unknown | | + + +---------+ + Care Team Providers + +------+ + | Care Flash Welding Machine Operator Name | Role | Phone | + +------+ + | Rudolph Lee MD | PCP | | + +------+ + Encounter Details +--------+ + + + + | Date | Type | Department | Care Team | Description | +--------+ + + + + | 02/20/ | DELETED | Preoperative | Consult, | ANESTHESIA/SEDATION | | 2001 | TRANSCRIPTI | Medicine Clinic at | Anesthesia [address] | | | | ON | [facility] 4th Floor [address] | [facility] | | | | [address] [place], [place] | | | | | Mailcode: [facility] | [address] | | | | | [facility] | | | | | | and Healing, | | | | | | Building 1,4th Floor | | | | | | [place], [place] | | | | | | [address] | | | | | | [phone] | | | +--------+ + + + [...] | | | | | | [place] [address] | | +--------+ + + + + [...]
--- OUTSIDE RECORDS SUMMARY | ~2019-08-23 | XMS | Encounter Summary ---
Demographics + + + | Address | [address] | | | [place] [address] | + + + | Home Phone | | + + + | Preferred Language | Unknown | + + + | Marital Status | Single | + + + | Nondenominational Affiliation | ANABAPTIST | + + + [...] Team Providers + +------+ + | Care Plow Shaker Name | Role | Phone | + +------+ + | Trevin Delacruz MD | PCP | | + +------+ + Encounter Details +--------+ + + + + | Date | Type | Department | Care Team | Description | +--------+ + + + + | 05/01/ | Results/Int | [facility] | Ethel Romo MD | Multiple sclerosis | | 2015 | erpretation | [place]/Ophthalmol | [address] | ([facility]) (Primary Dx) | | | | ogy at [facility] [address] | [facility] [place] | | | | | [address] Mailcode: | [address] | | | | | [address] | [phone] | | | | | Health and Healing, | | | | | | | | | | | | Floor [place], [place] | | | | | | [address] | | | | | | [phone] | | | +--------+ + + + [...] documented as of this encounter Progress Notes Ethel Romo MD - 05/07/2014 12:25 PM PST Visual Field Interpretation, 05/01/2014 Study: HVF 24-2 Right Eye Left Eye Reliability: fair Pattern: patchy nasal depression Reliability: excellent Pattern: patchy nonspecific depression, more notable inferiorly. Impression: will serve as baseline. Multiple Sclerosis With history of optic neuritis OS 1997. C/o difficulty seeing right VF. Also difficulty with higher order processing of visual information. Last MRI 3-4 months ago. Visual field testing supports history of optic neuritis OS, may have had subclinical event OD as well. No hemifield defect on exam Color blindness Early cataracts OU. Plan: Called to discuss results with patient. Visual difficulties sound like higher order proces sing issue, recommend discussing with his neurologist. F/u 1 year Ethel Romo MD [facility] Ethel Romo MD [facility] [place] [facility] documented in this enc ounter Plan of Treatment +--------+ + + + + | Date | Type | Specialty | Care Team | Description | +--------+ + + + + | 10/31/ | Appointment | Hematology & | Onc, Gen [address] | | | 2020 | | Oncology | [place], | | | | | | [place] [address] | | +--------+ + + + + documented as of this encounter Procedures + +--------+ + + + | Procedure Name | Priori | Date/Time | Associated Diagnosis | Comments | | | ty | | | | + +--------+ + + + | LA VISUAL FIELD | Routin | 05/07/2014 | Multiple sclerosis | | | EXAM,EXTENDED | e | 12:25 PM | (HCC) | | | | | PST | | | + +--------+ + + + documented in this encounter Visit Diagnoses + + | Diagnosis | + + | Multiple sclerosis (HCC) - Primary Multiple sclerosis | + + documented in this encounter"
--- OUTSIDE RECORDS SUMMARY | ~2019-08-23 | XMS | Encounter Summary ---
Demographics + + + | Address | [address] | | | [place] [address] | + + + | Home Phone | | + + + | Preferred Language | Unknown | + + + | Marital Status | Single | + + + | Shinto Affiliation | BAHAI | + + + [...] Team Providers + +------+ + | Care Transportation Refrigeration Technician Name | Role | Phone | + +------+ + | Jose Hameed MD | PCP | | + +------+ + Reason for Visit Consultation (Routine) +--------+--------+ + + + + [...] | sclerosis | [address] | [address] | | | | | (HCC) | Nate | [place] | | | | | Procedures | Eduarda James | [place], [place] | | | | | CONSULT TO | [place] | [address] | | | | | HEMATOLOGY / | [address] | Phone: | | | | | ONCOLOGY | Phone: | [phone] | | | | | | [phone] | Fax: | | | | | | Fax: | [phone] | | | | | | [phone] | | +--------+--------+ + + + + Encounter Details +--------+---------+ + + + | Date | Type | Department | Care Team | Description | +--------+---------+ + + + | 10/31/ | Office | [facility] | [facility], | Multiple sclerosis | | 2017 | Visit | Clinics at S | MD Patrick [address] | (HCC) (Primary Dx) | | | | [facility] | [place] | | | | | for Health and | [place] [address] | | | | | Healing [address] | [phone] | | | | | [place] | | | | | | [address] | | | | | | [phone] | | | +--------+---------+ + + + [...] + + + | Blood Pressure | 141/89 | 10/31/2016 3:28 PM | | | | | PDT | | + + + + + | Pulse | 79 | 10/31/2016 3:28 PM | | | | | PDT | | + + + + + | Temperature | 37.2 C (99 F) | 10/31/2016 3:28 PM | | | | | PDT | | + + + + + | Respiratory Rate | 18 | 10/31/2016 3:28 PM | | | | | PDT | | + + + + + | Oxygen Saturation | 98% | 10/31/2016 3:28 PM | | | | | PDT | | + + + + + | Inhaled Oxygen | - | - | | | Concentration | | | | + + + + + | Weight | 92.5 kg (203 lb 14.4 | 10/31/2016 3:28 PM | | | | oz) | PDT | | + + + + + | Height | 177.8 cm (5' 10") | 10/31/2016 3:28 PM | | | | | PDT | | + + + + + | Body Mass Index | 29.26 | 10/31/2016 3:28 PM | | | | | PDT | | + + + + + documented in this encounter Progress Notes Patrick Huff MD - 10/31/2016 3:30 PM PDT Hematology Clinic Problem List Multiple sclerosis Chief Complaint: ocrelizumab Impression 1. Multiple sclerosis There is increasing data for the benefit of anti-CD20 therapy in orion ents with multiple sclerosis including several positive clinic trials showing decreasing in lesions and relapses. Randomized clinical trials do shows ocrelizumab can be effective in t his situation. PARQ ocrelizumab - especially risk of infusion reactions, infections, and the very rare risk of progressive multifocal leukoencephalopathy. WIll proceed with therapy on ce authorized and will give 300mg days 1 and 14 then 600mg every 24 weeks Subjective Mian Marquez is a 66 year old male kindly referred for ocrelizumab. Patient with long hist ory of multiple sclerosis - multiple treatments - avonex then rebif. On natalizumab from 13 08- but developed JCV antibodies. Then tecfidera and then copaxone. Also with [place] b ariatric surgery. Past history of venous thromboembolic disease. Has back pain and has sti mulator. Patient reports a pain level of 6 today. Social History Substance Use Topics Smoking status: Never Smoker Smokeless tobacco: Never Used Alcohol use No Please see scanned questionnaire for SH, FH, PMH, and ROS which I have reviewed in detail. I have reviewed the available radiology results which are notable for MRI consistent with m ultiple sclerosis I have reviewed all the available laboratory results which are notable for Hepatitis B nega tive Current Outpatient Prescriptions: Cholecalciferol, Vitamin D3, (VITAMIN [...] sive disorder, Disp: 31 tablet, Rfl: 2 Allergies Allergen Reactions Latex Rash Adhesive Tape Pruritus Today's height is 1.778 m (5' 10") and weight is 92.5 kg (203 lb 14.4 oz). His oral tempera ture is 37.2 C (99 F). His blood pressure is 141/89 and his pulse is 79. His respiration is 18 and oxygen saturation is 98%. Gen: Appears non-toxic SHEENT: NC/AT No Scleral icterus Neck: No JVD No nodes Lungs: Good Resp movement. Clear to A&P Cor: RRR without R,G,M EXT: No C/C/E Psy: Appropriate Patrick Huff MD, VELASQUEZ SHOEMAKER community health agent, Pathology, and Pediatrics [facility] [place] documented in this encounter Plan of Treatment +--------+ + + + + | Date | Type | Specialty | Care Team | Description | +--------+ + + + + | 10/31/ | Appointment | Hematology & | Onc, Gen [address] | | | 2020 | | Oncology | [place], | | | | | | [place] [address] | | +--------+ + + + + documented as of this encounter Visit Diagnoses + + | Diagnosis | + + | Multiple sclerosis (HCC) - Primary Multiple sclerosis | + + documented in this encounter
--- OUTSIDE RECORDS SUMMARY | ~2019-08-23 | XMS | Encounter Summary ---
Demographics + + + | Address | [address] | | | [place] [address] | + + + | Home Phone | | + + + | Preferred Language | Unknown | + + + | Marital Status | | + + + | Rastafarian Affiliation | Unknown | + + + | Race | Unknown | + + + | Ethnic Group | Unknown | + + + Author + + + | Author | [facility] | | | and Jadenana | + + + | Organization | [facility] | | | and [...] | | | | | [place] [address] | | + + + + + Care Team Providers + +------+ + | Care Health And Safety Technician Name | Role | Phone | [...] | +--------+ + + + + | 03/22/ | Telephone | [facility] | Brock Leonard, | Appointment Question | | 2018 | | MEDICINE [place] | DO [address] | | | | | [address] | [place] | | | | | [place] | [address] | | | | | [address] | | | | | | [phone] | | | +--------+ + + + [...] [place] | | | | | | [place] | | | | | | [address] | | | | | | | | +--------+---------+ + + + documented as of this encounter Visit Diagnoses Not on filedocumented in this encounter"
--- OUTSIDE RECORDS SUMMARY | ~2019-08-23 | XMS | Encounter Summary ---
Demographics + + + | Address | [address] | | | [place] [address] | + + + | Home Phone [...] | Author | [facility] | | | and Jadenana | + + + | Organization | [facility] | | | and Jadenana [...] | | | | | [place] [address] | | + + + + + Care Team Providers + +------+ + | Care Ornamental Metal Erector Apprentice Name | Role | Phone | [...] + + | 06/18/ | Telephone | [facility] | Shmuel Merrill | Other | | 2019 | | MEDICINE [address] | [address] | | | | | [place] | [place] | | | | | [place] [address] | [address] | | | | | [phone] | | | +--------+ + + + [...] [place] | | | | | | [address] | | | | | | | | +--------+---------+ + + + documented as of this encounter Visit Diagnoses Not on filedocumented in this encounter"
--- OUTSIDE RECORDS SUMMARY | ~2019-08-23 | XMS | Encounter Summary ---
Demographics + + + | Address | [address] | | | [place] [address] | + + + | Home Phone | | + + + | Preferred Language | Unknown | + + + | Marital Status | | + + + | Anglican Affiliation | Unknown | + + + | Race | Unknown | + + + | Ethnic Group | Unknown | + + + Author + + + | Author | [facility] | | | and Jadenana | + + + | Organization | [facility] | | | and [...] | | | | | [place] [address] | | + + + + + Care Team Providers + +------+ + | Care Degreasing Solution Reclaimer Name | Role | Phone | + +------+ + | Lexie Cagle | PCP | | | CASTING MACHINE OPERATOR | | | + +------+ + Reason for Visit + + + | Reason | Comments | + + + | Neurogenic Bladder | treatment options | + + + Encounter Details +--------+---------+ + + + | Date | Type | Department | Care Team | Description | +--------+---------+ + + + | 04/30/ | Office | [facility] | Michael Fernandes | Neurogenic bladder | | 2019 | Visit | [address] | MD Yaw [address] | (Primary Dx); | | | | PRECIOUS [place] | PRECIOUS EM | 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 CC: [...] [place] | | | | | | [address] | | | | | | | [...]
--- OUTSIDE RECORDS SUMMARY | ~2019-08-23 | XMS | Encounter Summary ---
Demographics + + + | Address | [address] | | | [place] [address] | + + + | Home Phone | | + + + | Preferred Language | Unknown | + + + | Marital Status | Single | + + + | Mosque Affiliation | EPISCOPALIAN | + + + [...] Team Providers + +------+ + | Care Laborer Chemical Processing Name | Role | Phone | + +------+ + | Jose Hameed MD | PCP | | + +------+ + Reason for Visit + + + | Reason | Comments | + + + | Return Patient | | + + + Consultation (Routine) [...] | | | after RYGB | | [facility] | | | | | [address] 1999 | | Health and | | | | | | | Healing, | | | | | | | [address] | | | | | | | [place], [place] | | | | | | | [address] | | | | | | | Phone: | | | | | | | [phone] | | | | | | | Fax: | | | | | | | [phone] | +--------+--------+ + + + + Encounter Details +--------+---------+ + + + | Date | Type | Department | Care Team | Description | +--------+---------+ + + + | 09/24/ | Office | Digestive Health | Ivonne Menezes, | Weight gain (Primary | | 2016 | Visit | Center at [facility] [address] | [address] [address] | Dx); Gastric | | | | [address] | , [address] | banding status; H/O | | | | Mailcode: Center | [place], [place] | gastric bypass | | | | for [facility] and | [address] | | | | | Healing, [address] | [phone] | | | | | [place], [place] | | | | | | [address] | | | | | | [phone] | | | +--------+---------+ + + + [...] + + + | Blood Pressure | 153/89 | 09/25/2015 9:58 AM | | | | | PDT | | + + + + + | Pulse | 63 | 09/25/2015 9:58 AM | | | | | PDT | | + + + + + | Temperature | 36.6 C (97.8 F) | 09/25/2015 9:58 AM | | | | | PDT | | + + + + + | Respiratory Rate | 16 | 09/25/2015 9:58 AM | | | | | PDT | | + + + + + | Oxygen Saturation | - | - | | + + + + + | Inhaled Oxygen | - | - | | | Concentration | | | | + + + + + | Weight | 94.2 kg (207 lb 9.6 | 09/25/2015 9:58 AM | | | | oz) | PDT | | + + + + + | Height | 177.8 cm (5' 10") | 09/25/2015 9:58 AM | | | | | PDT | | + + + + + | Body Mass Index | 29.79 | 09/25/2015 9:58 AM | | | | | PDT | | + + + + + documented in this encounter Patient Instructions Patient Instructions Ivonne Menezes NP - 09/25/2015 10:23 AM PDTKeep doing what you are doing, you are doing great! Stay hydrated, stay active, get enough protein. You now have ~5.25 ml in your band. Please stay on liquids for the next 24 hours. If you are concerned about dehydration because water will not go down, call us and we will have you come in right away. If we are not available, go to the ER. Residual swelling that occurs during an adjustment may last 3-5 days. If you have vomiting or food sticking, please chew more, and eat slowly. Avoid drinking within 30 min of a meal. Spend 20-30 min eating 1/2-1 cup of food. Eat 5-6 times a day with 3 small meals and 2-3 snacks per day. If you have vomiting more than 1-2 times per month, please make an appt with me for a band adjustment. If your band feels too loose, please wait at least 2-4 weeks between fills. Calcium citrate 1500 mg per day (take calcium 2 hours away from any iron containing supplem ents) Vitamin D 1000 IU per day, minimum (this will be in your calcium and multivitamins) chewable multivitamin with iron Exercise, walking, elliptical, swimming Calories approx. 1062-4110 per day when 3 mos or more out from surgery. [employer]Keas Protein 60-100+ gms per day Water: 64 oz per day, your urine should be light yellow. Please let up know if you would like a referral to see the Laborer Tanbark. I would be happy to put in referrals to [facility], medical membership is $198 for 3 mos. If you are 12 mos or more out from surgery and would like referral for excess skin removal please let us know. Call us if you have any questions or concerns, or send [employer] message for non-urgent issue sNatalie Menezes RN, [facility]- Nurse Practitioner for Bariatric Surgery [facility] | [address] | [place], [place] | [address] | documented in this encounter Progress Notes Ivonne Meneezs NP - 09/25/2015 10:33 AM PDTFormatting of this note might be different fr om the original. Display Progress Note in [employer]: Yes 09/25/2015 Gastric Band FOLLOW-UP Mian Marquez is a 65 y.o. male who underwent a Lap band procedure in 2011, RYGB in 2001. I have reviewed the last office visit note and op-report. There is some restriction in portion size but no foods are sticking. Denies reflux or vomiting. Pt would like a band fill today. He is able to eat eggs, cheese, fish and ground beef, along with vegetables and fruits. 350-->207 (total 143 lb weight loss) BP 153/89 | Pulse 63 | Temp (Src) 36.6 C (97.8 F) (Oral) | RR 16 | Ht 1.778 m (5' 10") | Wt 94.167 kg (207 lb 9.6 oz) | BMI 29.79 kg/(m^2) ALLERGIES: Allergies Allergen Reactions Latex Rash Adhesive Tape Pruritis Current outpatient prescriptions: cholecalciferol, vitamin D3, 50,000 unit oral tablet, Isacc e 50,000 Units by mouth every seven days. Indications: VITAMIN D DEFICIENCY (HIGH DOSE THERA PY), Disp: 12 tablet, Rfl: 3 cyanocobalamin 1,000 mcg/mL injection solution, Inject into the muscle (IM)., Disp: , Rfl: dextroamphetamine-amphetamine (ADDERALL) 10 mg oral tablet, Take 1 tablet by mouth three ti mes daily as needed. Indications: ms associated fatigue, Disp: 90 tablet, Rfl: 0 iron sucrose 100 mg iron/5 mL intravenous solution, Every other month, Disp: , Rfl: NaCl 0.9 % solp 500 mL with iron dextran 100 mg/2 mL (50 mg/mL) soln, Inject into the vein (IV) once. Every 2 months, Disp: , Rfl: nitrofurantoin monohydrate/macrocrystal 100 mg oral capsule, , Disp: , Rfl: ONABOTULINUMTOXINA (BOTOX INJ), by injection route as needed (neurogenic bladder)., Disp: , Rfl: rOPINIRole 1 mg oral tablet, , Disp: , Rfl: rOPINIRole 2 mg oral tablet, Take 2 mg by mouth once daily in the evening., Disp: , Rfl: traZODone 50 mg oral tablet, Take 1-2 tablets by mouth once daily at bedtime as needed., Di sp: 60 tablet, Rfl: 2 venlafaxine XR 150 mg oral capsule,extended release 24hr, Take 1 capsule by mouth once lois y., Disp: 30 capsule, Rfl: 2 History: Past Medical History Diagnosis Date MS (multiple sclerosis) (HCC) gait/ cognition issues Back pain s/p surgery Obesity Restless legs Low ferritin iron infusions in past CHRISTEN on CPAP Urinary retention self caths GERD (gastroesophageal reflux disease) severe 07/2014 Depressive disorder, not elsewhere classified Other and unspecified symptoms and signs involving general sensations and perceptions Past Surgical History Procedure Laterality Date Lap-band insertion 2011 [facility]/ [place]-en-y gastric bypass 2006 [facility]/ [place] Back surgery lumbar Cholecystectomy Social History Social History Marital Status: Single Spouse Name: N/A Number of Children: N/A Years of Education: N/A Occupational History Not on file. Social History Main Topics Smoking status: Never Smoker Smokeless tobacco: Never Used Alcohol Use: No Drug Use: No Sexual Activity: Not on file Other Topics Concern Not on file Social History Narrative Family History Problem Relation Glasses Mother Glasses Father Glasses Brother Symptoms: Nausea: None Dysphagia: None Vomiting: None Heartburn: None Abd Pain: None Constipation: None Diarrhea: None Nocturnal GERD, regurgitation, or cough: None Physical exam: General appearance: healthy, alert and cooperative Well hydrated. Moist mucous membranes. Abdomen:obese, soft, nontender, nondistended, no masses Incision: Well Healed. Port palpable. Impression/Plan: 1. S/P Lap band with moderate Band effect. Small fill today. The patient was advised regarding dietary management and physical activity. We discussed di et choices, types of exercise, increasing proteins, decreasing carbs and sugars, counting gr ams of protein and calories. Offered RD visit. Offered [facility] referral. LapBand port access: The site over the port was prepped steriley in the standard fashion. 2cc of 1% lidocaine wa s infiltrated over the port, and the band accessed with an Inamed port access needle. 5 cc o f fluid was withdrawn from the port, and 0.25 cc of normal saline was added representing a 5 .25 cc increase in the band volume. Pt tolerated the procedure well. Was able to drink water after the procedure without diffic ulty. Will stay on a liquid diet today and soft foods tomorrow. Call or RTC for AP, dysphagi a, n/v, heartburn, or nocturnal sx of GERD, regurgitation or cough. F/U 2-4 weeks if not prashant quately restricted. Or PRN at least once yearly. Pt agrees to POC, will call or send a [employer] message if any issues. Follow-up in 1-2 mos. Start time 1000, end time 1025. I spent a total of 25 minutes face to face with this patien t. Over 50% spent in counseling. ~ 5 Minutes of additional time was spent reviewing chart prior to visit and documenting aft er the visit. Ivonne Menezes RN, [facility]- Nurse Practitioner for Bariatric Surgery [facility] | [address] | [place] | [address] | documented in this e ncounter Plan of Treatment +--------+ + + + + | Date | Type | Specialty | Care Team | Description | +--------+ + + + + | 10/31/ | Appointment | Hematology & | Onc, Gen [address] | | | 2020 | | Oncology | [address] [place] [place], | | | | | | [place] [address] | | +--------+ + + + + documented as of this encounter Procedures + +--------+ + + + | Procedure Name | Priori | Date/Time | Associated Diagnosis | Comments | | | ty | | | | + +--------+ + + + | LA ADJUST OF GASTRIC | Routin | 09/25/2015 | Weight gain | | | BAND DIAMETER VIA | e | 10:34 AM | Gastric banding | | | SUBCUTANEOUS PORT | | PDT | status H/O gastric | | | INJ | | | bypass | | + +--------+ + + + documented in this encounter Visit Diagnoses + + | Diagnosis | + + | Weight gain - Primary Abnormal weight gain | + + | Gastric banding status Bariatric surgery status | + + | H/O gastric bypass Bariatric surgery status | + + documented in this encounter
--- OUTSIDE RECORDS SUMMARY | ~2019-08-23 | XMS | Encounter Summary ---
Demographics + + + | Address | [address] | | | [place] [address] | + + + | Home Phone | | + + + | Preferred Language | Unknown | + + + | Marital Status | Single | + + + | Rastafarian Affiliation | ADVENT | + + + | Race | [...] Providers + +------+ + | Care Spring Repairer Helper Hand Name | Role | Phone | + +------+ + | Jose Hameed MD | PCP | | + +------+ + Encounter Details +--------+------+ + + + | Date | Type | Department | Care Team | Description | +--------+------+ + + + | 01/23/ | Lab | Laboratory at [facility] | | Multiple sclerosis | | 2019 | | [address] | | ([facility]); Familial | | | | [place], [place] | | hypophosphatemia | | | | [address] | | | | | | [phone] | | | +--------+------+ + + + [...] | | | | | | [place] [address] | | +--------+ + + + + [...] LABORATORY | [address] | [place] [address] | | | [facility] | | | | | HEALTH + [...] LABORATORY | | | | | | [facility], | | | | | | CORE [...] [facility] | [address] | [place] [address] | | | SERVICES, CORE | PARK [...] | + + + + + | [facility] | [address] | [place] [address] | | | SERVICES, CORE | PARK [...] | | | LABORATORY | | | [facility] | | | SERVICES, | | | [...] | + + + + + | [facility] | [address] | [place] [address] | | | [facility] | | | | | HEALTH + HEALING | | | | + + + + + documented in this encounter Visit Diagnoses + + | Diagnosis | + + | Multiple sclerosis (HCC) Multiple sclerosis | + + | Familial hypophosphatemia Disorders of phosphorus metabolism | + + documented in this encounter"
--- OUTSIDE RECORDS SUMMARY | ~2019-08-23 | XMS | Encounter Summary ---
Demographics + + + | Address | [address] | | | [place] [address] | + + + | Home Phone | | + + + | Preferred Language | Unknown | + + + | Marital Status | Single | + + + | Jew Affiliation | NONDENOMINATIONAL | + + + [...] Team Providers + +------+ + | Care Fine Grader Name | Role | Phone | + +------+ + | Trevin Delacruz MD | PCP | | + +------+ + Reason for Visit +--------+ + | Reason | Comments | +--------+ + | Other | | +--------+ + Encounter Details +--------+ + + + + | Date | Type | Department | Care Team | Description | +--------+ + + + + | 02/09/ | Telephone | Plastic and | Neto Lockhart, | Other | | 2014 | | Reconstructive | [address] | | | | | Surgery at [facility] [address] | | | | | [address] | [place], [place] | | | | | Mailcode: [facility] | [address] | | | | | [facility] | [phone] | | | | | and Healing, | | | | | | [facility] [address] | | | | | | [place], [place] | | | | | | [address] | | | | | | [phone] | | | +--------+ + + + [...] | 2019 | | Oncology | [address], | | | | | | [place] [address] | | +--------+ + + + + documented as of this encounter Visit Diagnoses Not on filedocumented in this encounter"
--- OUTSIDE RECORDS SUMMARY | ~2019-08-23 | XMS | Encounter Summary ---
Demographics + + + | Address | [address] | | | [place] [address] | + + + | Home Phone | | + + + | Preferred Language | Unknown | + + + | Marital Status | Single | + + + | Worship Affiliation | [employer]NABAPTIST | + + + [...] Team Providers + +------+ + | Care High School Art Teacher Name | Role | Phone | [...] | | sclerosis | MD Patrick | [address] | | | | | Procedures | [address] | for Health | | | | | [place] | Ave | and Healing | | | | | UNCLASSIFIED | [place], [place] | [address] | | | | | [place] | [address] | [address] | | | | | BIOLOGICALS | Phone: | [place], [place] | | | | | [place] | [phone] | [address] | | | | | THR/PRPH/DX | Fax: | Phone: | | | | | IV INF,IN | [phone] | [phone] | | | | | [place] | | Fax: | | | | | THER/PROPH/D | | [phone] | | | | | IAG IV | | | +--------+--------+ + + + + Encounter Details +--------+ + + + + | Date | Type | Department | Care Team | Description | +--------+ + + + + | 12/01/ | Hospital | [facility] | Nurse3, Hem [address] | | | 2017 | Encounter | Clinics at S | [address] | | | | | [facility] | [place] [address] | | | | | for Health and | Chr9, Hem [address] | | | | | Healing [address] | [address] [place], | | | | | Ave [place], [place] | [place] [address] | | | | | [address] | | | | | | [phone] | | | +--------+ + + + [...] + + + | Blood Pressure | 129/71 | 12/01/2016 12:25 PM | | | | | PDT | | + + + + + | Pulse | 69 | 12/01/2016 12:25 PM | | | | | PDT | | + + + + + | Temperature | 36.6 C (97.9 F) | 12/01/2016 12:25 PM | | | | | PDT | | + + + + + | Respiratory Rate | 16 | 12/01/2016 12:25 PM | | | | | PDT | | + + + + + | Oxygen Saturation | 97% | 12/01/2016 12:25 PM | | | | | PDT | | + + + + + | Inhaled Oxygen | - | - | | | Concentration | | | | + + + + + | Weight | 90.8 kg (200 lb 1.6 | 12/01/2016 8:44 AM | | | | oz) | PDT | | + + + + + | Height | - | - | | + + + + + | Body Mass Index | 28.71 | 10/31/2016 3:28 PM | | | [...] encounter Progress Notes Екатерина Aldana RN - 12/01/2016 8:13 AM PDTPt here for second Ocrevus infusion. No new co mplaints noted since first infusion. Pt denies fever, chills; or other s/s of infection; pt complains of 4/10 pain in back from spinal stimulator placement ~ 3 weeks ago, but pt states is improving and has follow up appt to check on stimulator settings. Peripheral Left forear m 24g with excellent blood return accessed per protocol. No labs ordered or drawn today. Pre medicated with PO acetaminophen, loratidine as pt is driving himself and IV solumedrol. Ocre vus infused with rate changes per protocol with 250mL NS sidearm for flushing with 0.2 micro n filter on IV line. VS monitored per protocol; VSS throughout. Patient tolerated without in cident during infusion and 1hr observation after infusion completed. PIV d/c'd and intact. Pt Alert & Oriented x3, No acute distress, Mood & affect appropriate and Recent & remote me manuel intact and discharged ambulatory with cane and instructions have been provided. Refer to [...] | | | | | | [place] [address] | | +--------+ + + + + [...] | acetaminophen (TYLENOL) tablet | Given | 12/02/19 | 650 mg | | | | 650 mg 650 mg, oral, ONCE, | | 17 9:09 | | | | | dose, Jemma 12/01/16 at 0900 | | AM PDT | | | | + +--------+ +--------+------+------+ +---+---+ | | | +---+---+ + +-------+ +-------+---+---+ | loratadine (CLARITIN) tablet 10 | Given | 12/02/19 | 10 mg | | | | mg 10 mg, oral, NEEDED, 1 | | 17 9:09 | | | | | dose, Starting Mon12/01/16 at | | AM PDT | | | | | 0849, Until Mon12/01/16 at 0909, | | | | | | | Give instead of diphenhydrAMINE | | | | | | | if patient does not have a electric train driver | | | | | | + +-------+ +-------+---+---+ +---+---+ | | | +---+---+ + +-------+ +--------+---+---+ | methylPREDNISolone sod succ | Given | 12/02/19 | 100 mg | | | | (PF) (SOLU-MEDROL) injection 100 | | 17 9:11 | | | | | mg 100 mg, intravenous, ONCE, 1 | | AM PDT | | | | | dose, Jemma 12/01/16 at 0900 | | | | | | + +-------+ +--------+---+---+ +---+---+ | | | +---+---+ + +---------+ +--------+ +---+ | ocrelizumab (OCREVUS) 300 mg in | New Bag | 12/02/19 | 300 mg | 30 mL/hr | | | NaCl 0.9 % IV 300 mg, | | 17 9:50 | | | | | intravenous, ONCE, 1 dose, Jemma | | AM PDT | | | | | 12/01/16 at 0900 | | | | | | + +---------+ +--------+ +---+ +---+---+ | | | +---+---+ documented in this encounter"
--- OUTSIDE RECORDS SUMMARY | ~2019-08-23 | XMS | Encounter Summary ---
Demographics + + + | Address | [address] | | | [place] [address] | + + + | Home Phone | | + + + | Preferred Language | Unknown | + + + | Marital Status | Single | + + + | Judaism Affiliation | CONFUCIANISM | + + + [...] Providers + +------+ + | Care Wire Stitcher Operator Name | Role | Phone | [...] as of this encounter Progress Notes Interface, Lamp Assembler In - 08/25/2005 1:01 AM PDTClinic Date: 03/04/2003 Clinic: Dermatology Chief Complaint: Itching. History of Present Illness: This 52-year-old white male was seen by myself and Dr. Chris Ro at the Dermatology Clinic at [facility] on March 04, 2003. The patient presented with a 9-month history of generalized pruritus which he stated began subsequent to his gastric bypass surgery one year ago. The patient reports that his pruritus has no accompanying rash. He has tried treatment with qdqo-kmo-eiatjfo topical medications including Gold [address]endiz, 1% hydrocortisone cream, and Aloe vera with minimal relief. He has also taken ueye-zcn-metcgyy Benadryl in order to sleep at night. He gives increased ambient temperature as an exacerbating factor. He denies a prior difficulty with pruritus. Past Medical History: The patient's past medical history is significant for asthma, hay fever, multiple sclerosis, hypertension, and gout. Medications: The patient's medications include Detrol, Wellbutrin, verapamil, Ritalin, allopurinol, lisinopril, and interferon for the treatment of multiple sclerosis. The patient reports no changes in his drug regimen over the past year. Allergies: The patient reports no known drug allergies. Family History: The patient denies any family history of skin cancer or other skin diseases. Social History: The patient denies tobacco or alcohol use. 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 Review of Systems: The patient's review of systems is positive for weight change status post his gastric bypass surgery (the patient has lost 150 pounds), and the patient experiences fatigue due to his multiple sclerosis. The review of systems is otherwise negative. Physical Examination Vital Signs: The patient's blood pressure is 138/78, his pulse is 68, and his respirations are 12 per minute. General: The patient appears well developed, well nourished, in no acute distress, and oriented to person, place, and time. Skin: The patient is noted to have widespread lax skin which can be attributed to his weight loss from gastric bypass surgery. Over the patient's back, is noted a diffuse, patchy, erythema on a background of xerosis. The patient's chest also demonstrates mild erythema. The patient's abdomen displays well-healed scars from laparoscopy as well as diffuse striae. Generalized xerosis and mild lichenification is noted over the patient's upper and lower extremities. The patient's lower extremities also demonstrate significant stasis changes, trace edema, and large varicosities in the legs. 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 Other possibilities include pruritus due to abnormal thyroid function as well as possible atopic dermatitis. Plan 1. The patient was instructed regarding appropriate skin care to minimize his xerosis. He was instructed to moisturize with Cetaphil or Eucerin creams within a few minutes of bathing each day and to use these creams throughout the day. 2. We sent the patient to the lab for evaluation of his TSH to exclude thyroid cause or component to his pruritus. 3. We will reevaluate the patient in 3 weeks at which time we may add topical steroids if he reports no improvement. 4. The patient will return to the clinic in 3 weeks for followup. Kurtis Torres M.D. Department of Dermatology Chris Ro M.D. / [id number] / [id number] / [id number] / cc: Rudolph Lee M.D. [address] [id number] signed by Interface, Lamp Assembler In at 08/25/2005 1:01 AM PDTdocumented in this encounter Plan of Treatment +--------+ + + + + | Date | Type | Specialty | Care Team | Description | +--------+ + + + + | 10/31/ | Appointment | Hematology & | Onc, Gen [address] | | | 2019 | | Oncology | [address] [place], | | | | | | [place] [address] | | +--------+ + + + + documented as of this encounter Visit Diagnoses Not on filedocumented in this encounter"
--- OUTSIDE RECORDS SUMMARY | ~2019-08-23 | XMS | Encounter Summary ---
Demographics + + + | Address | [address] | | | [place] [address] | + + + | Home Phone | | + + + | Preferred Language | Unknown | + + + | Marital Status | Single | + + + | Denominational Affiliation | QUAKER | + + + [...] Team Providers + +------+ + | Care Armored Machine Operator Name | Role | Phone [...] | | | | | sclerosis | [address] | | | | | | ([facility]) | [place] Fitzpatrick | | | | | | Procedures | [place], [place] | | | | | | CONSULT TO | [address] | | | | | | NEUROPSYCHOL [...] | Neurology | Diagnoses | Non-[facility] | Imrian Ms | | | | | Multiple | Epic Dept | Center [facility] | | | | | sclerosis | [...] | | | | | | | [place], [place] | | | | | | | [address] | | | | | | | Phone: | | | | | | | [phone] | | | | | | | Fax: | | | | | | | [phone] | +--------+--------+ + + + + Encounter Details +--------+---------+ + + + | Date | Type | Department | Care Team | Description | +--------+---------+ + + + | 03/14/ | Office | Neurology at | Praful Sanchez, | Multiple sclerosis | | 2016 | Visit | [facility] & | DO | ([facility]) (Primary Dx); | | | | Healing [address] | | Vitamin B12 | | | | [address] Mailcode: CH8C | | deficiency; | | | | [facility] | | Neurogenic bladder; | | | | and Healing, | | Vitamin D deficiency | | | | Building | | | | | | Floor [place], [place] | | | | | | [address] | | | | | | [phone] | | | +--------+---------+ + + + [...] Patient Medical Problems 1. Multiple sclerosis Avonex [phone] (treatment for 2 years) Rebif for 2.5 [...] of his prior neuropsych testing done in [place] thr ee years ago; we will upload them to his chart. Two weeks ago he moved from [place] with his girlfriend, and [...] all 4 extremities. Cerebellar testing shows slowed [id number]. Ga it: Antalgic casual gait, very difficult [...] Sanchez DO Multiple Sclerosis and Neuroimmunology Fellow [facility] documented in this encounter Plan of Treatment +--------+ + + + + | Date | Type | Specialty | Care Team | Description | +--------+ + + + + | 10/31/ | Appointment | Hematology & | Onc, [address] | | | 2020 | | Oncology | [place], | | | | | | [place] [address] | | +--------+ + + + + [...]
--- OUTSIDE RECORDS SUMMARY | ~2019-08-23 | XMS | Encounter Summary ---
Demographics + + + | Address | [address] | | | [place] [address] | + + + | Home Phone | | + + + | Preferred Language | Unknown | + + + | Marital Status | | + + + | Muslim Affiliation | Unknown | + + + | Race | Unknown | + + + | Ethnic Group | Unknown | + + + Author + + + | Author | [facility] | | | and Jadenana | + + + | Organization | [facility] | | | and [...] | | | | | [place] [address] | | + + + + + Care Team Providers + +------+ + | Care Landscape Maintenance Internship Name | Role | Phone | + +------+ + | Lexie Cagle | PCP | | | RE EXAMINER | | | + +------+ + Reason for Visit + + + | Reason | Comments | + + + | Follow-up | chronic fatigue | + + + Encounter Details +--------+---------+ + + + | Date | Type | Department | Care Team | Description | +--------+---------+ + + + | 08/08/ | Office | [facility] | Lexie Cagle | Chronic fatigue | | 2019 | Visit | MEDICINE [address] | [address] | disorder (Primary | | | | [address] [place] | [address] [facility] | Dx); Multiple | | | | [place] [address] | [place] [address] | sclerosis (HCC); | | | | [phone] | [phone] | Hypoglycemia; | | | | | [...] in this encounter Progress Notes Lexie Cagle, RE EXAMINER - 08/08/2018 3:00 PM PDTFormatting of this note might be di fferent from the original. Subjective: Mian Marquez is a 68 y.o. male patient here for Follow-up (chronic fatigue) Mian recently underwent a left wrist scaphoid excision and [address]a at [facility]. His left hand is still significantly [...] and iron infusio n with [facility] in [place] this . He is having burning with [...] transportation concerns (would need to be in [place] regularly). Admits to often th inking about [...] catheter placement; Surgeon: Michael Fernandes MD; Location: [facility] MAIN OR CHOLECYCTOSTOMY CYSTOSCOPY N/A 04/19/2018 Procedure: Cystoscopy, bladder Botox, injection of urethral bulking agent; Surgeon: Gina Fernandes MD; Location: [facility] MAIN OR GASTRIC BYPASS SURGERY 2001 [...] this patient today. > 50% of time youth counselor ing regarding the listed conditions, options [...] [place] | | | | | | [id number] | | | | | | | [...]
--- OUTSIDE RECORDS SUMMARY | ~2019-08-23 | XMS | Encounter Summary ---
Demographics + + + | Address | [address] | | | [place] [address] | + + + | Home Phone | | + + + | Preferred Language | Unknown | + + + | Marital Status | Single | + + + | Caodaism Affiliation | LATTER-DAY | + + + [...] Team Providers + +------+ + | Care Diesel Power Mechanic Name | Role | Phone | + +------+ + | Jose Hameed MD | PCP | | + +------+ + Reason for Visit + + + | Reason | Comments | + + + | Medical Records | | | Review | | + + + Encounter Details +--------+ + + + + | Date | Type | Department | Care Team | Description | +--------+ + + + + | 09/25/ | Documentati | [facility] | Lab, Gi Procedure | Medical Records | | 2014 | on | [address] | | Review | | | | [place] Fitz[place] Mailcode: | | | | | | [address] | | | | | | Health and Healing, | | | | | | [address] | | | | | | [place], [place] | | | | | | [address] | | | | | | [phone] | | | +--------+ + + + [...] | | | | | | [place] [address] | | +--------+ + + + + documented as of this encounter Visit Diagnoses Not on filedocumented in this encounter"
--- OUTSIDE RECORDS SUMMARY | ~2019-08-23 | XMS | Encounter Summary ---
Demographics + + + | Address | [address] | | | [place] [address] | + + + | Home Phone | | + + + | Preferred Language | Unknown | + + + | Marital Status | Single | + + + | Presybeterian Affiliation | SABIANIST | + + + | Race | [...] Team Providers + +------+ + | Care Wagon Washer Name | Role | Phone | + +------+ + | Rudolph Lee MD | PCP | | + +------+ + Encounter Details +--------+ + + + + | Date | Type | Department | Care Team | Description | +--------+ + + + + | 02/03/ | Office | | Note, Outpatient | [...] as of this encounter Progress Notes Interface, Pony Ride Attendant In - 08/31/2005 3:00 AM PDTClinic Date: 02/03/2003 Clinic: [facility] History of Present Illness: Mr. Marquez presents for a 1-year followup status post laparoscopic Benito-en-Y gastric bypass. He had a preoperative weight of 355 pounds. His weight today 215 pounds. His blood pressure is 160/84. He reports difficulty swallowing meats, and he is complaining of dry skin and itching for the last 6 months. His swallowing was evaluated with barium swallow which showed no obstruction mass or hiatal hernia. The patient reports that he is still fatigued. He does have multiple sclerosis, and this is unchanged. He states that his bowel movements are normal, and he denies any nausea or vomiting. Physical Examination: His abdomen is soft, nontender, and nondistended. His wounds are well healed. He has no evidence of a hernia. Assessment: Doing well after a gastric bypass. Plan 1. We will refer him to Dermatology for itching and dry skin. 2. We will check a CBC and CMP today. 3. He will follow up in our clinic again in 6 months. Trinh Partida M.D. Gary Yeager M.D. MERARY / VICTOR M [id number] / [id number] / [id number] / Tdocumented in this encounter Plan of Treatment +--------+ + + + + | Date | Type | Specialty | Care Team | Description | +--------+ + + + + | 10/31/ | Appointment | Hematology & | Onc, Gen [address] | | | 2020 | | Oncology | [place], | | | | | | [place] [address] | | +--------+ + + + + documented as of this encounter Visit Diagnoses Not on filedocumented in this encounter"
--- OUTSIDE RECORDS SUMMARY | ~2019-08-23 | XMS | Encounter Summary ---
Demographics + + + | Address | [address] | | | [place] [address] | + + + | Home Phone | | + + + | Preferred Language | Unknown | + + + | Marital Status | Single | + + + | Congregation Affiliation | MORAVIAN | + + + [...] Team Providers + +------+ + | Care Beef Ribber Name | Role | Phone | + [...] | | | | | | [place] [address] | | +--------+ + + + + documented as of this encounter Visit Diagnoses Not on filedocumented in this encounter"
--- OUTSIDE RECORDS SUMMARY | ~2019-08-23 | XMS | Encounter Summary ---
Demographics + + + | Address | [address] | | | [place] [address] | + + + | Home Phone [...] + | Author | [facility] | | | and Jadenana | + + + | Organization | [facility] | | | and Jadenana [...] | | | | | [place] [address] | | + + + + + Care Team Providers + +------+ + | Care Procurement Clerk Name | Role | Phone | + +------+ + | Shmuel Merrill | PCP | | + +------+ + Reason for Referral Diagnostic/Screening (Routine) +--------+--------+ + + + + | Status | Reason | Specialty | Diagnoses / | Referred By | Referred To | | | | | Procedures | Contact | Contact | +--------+--------+ + + + + | Closed | | Radiology | Diagnoses | [place], | [facility] | | | | | S/P lumbar | Rekha | [address] | | | | | fusion | FLORI Carranza | [place], | | | | | Chronic low | [address] | [place] | | | | | back pain | [place] | [address] | | | | | without | [address]RE[address] | Phone: | | | | | sciatica, | [address] | [phone] | | | | | unspecified | [place], | Fax: | | | | | back pain | [place] [address] | [phone] | | | | | laterality | Phone: | | | | | | Multiple | [phone] | | | | | | sclerosis | Fax: | | | | | | ([facility]) | [phone] | | | | | | Procedures | | | | | | | MRI Lumbar | | | | | | | Spine wo | | | | | | | Contrast | | | +--------+--------+ + + + + Reason for Visit + + + | Reason | Comments | + + + | New Patient | | + + + | Back Pain | | + + + Evaluate & Treat (Routine) + +--------+ + + + + | Status | Reason | Specialty | Diagnoses / | Referred By | Referred To | | | | | Procedures | Contact | Contact | + +--------+ + + + + | Authorized | | Physical | Diagnoses | [place], | Stew, | | | | Medicine and | Lumbar | Shmuel Noguera | Randy Mukherjee MD | | | | Rehabilitatio | spondylosis | [address] | [address] | | | | n | | [address] | [address] | | | | | | [place], | [place] | | | | | | [place] [address] | [address] Phone: | | | | | | Phone: | [phone] | | | | | | [phone] | Fax: | | | | | | Fax: | [phone] | | | | | | [phone] | | + +--------+ + + + + Encounter Details +--------+---------+ + + + | Date | Type | Department | Care Team | Description | +--------+---------+ + + + | 04/12/ | Office | [facility] [place] | Rekha Conte | S/P lumbar fusion | | 2020 | Visit | PHYSIATRY [address] | [place] [address]ranza [address] | (Primary Dx); | | | | [address] | [facility] | Chronic low back | | | | [place] | [address] [place] | pain without | | | | [address] | [address] | sciatica, | | | | [phone] | | unspecified back | | | | | | pain laterality; | | | | | | Multiple sclerosis | | | | | | ([facility]); Myalgia | +--------+---------+ + + + Social History [...] + + + | Blood Pressure | 134/85 | 04/12/2019 10:02 AM | | | | | PST | | + + + + + | Pulse | 70 | 04/12/2019 10:02 AM | | | | | PST | | + + + + + | Temperature | - | - | | + + + + + | Respiratory Rate | 16 | 04/12/2019 10:02 AM | | | | | PST | | + + + + + | Oxygen Saturation | - | - | | + + + + + | Inhaled Oxygen | - | - | | | Concentration | | | | + + + + + | Weight | 93 kg (205 lb) | 04/12/2019 10:02 AM | | | | | PST | | + + + + + | Height | 177.8 cm (5' 10") | 04/12/2019 10:02 AM | | | | | PST | | + + + + + | Body Mass Index | 29.41 | 04/12/2019 10:02 AM | | | | | PST | | + + + + + documented in this encounter Patient Instructions Patient Instructions Rekha Conte PA-C - 04/12/2019 10:00 AM PSTFormatting of thi s note might be different from the original. I placed an MRI request to be done at [facility] of your low back. Results w ill be called to you with treatment options. Trigger Point Injection What is a trigger point? A trigger point is a tight, painful knot of muscle fiber. It can form where a muscle is strained or injured. The knot can sometimes be felt under the skin. A trigger point is ve ry tender to the touch. Pain may also spread to other parts of the affected muscle. Muscles around a knee, shoulder blade, or other bones are prone to trigger points. This is because t hese muscles are more likely to be injured. The cause of your muscle pain or spasms may be one or more trigger points. Your healthcare provider may decide to inject the painful spots to relax the muscle. This can help relieve y our pain. Relaxing the muscle can also make movement easier. You may then be able to exercis e to strengthen the muscle and help it heal. Injecting a trigger point can help relax the affected muscle and relieve pain. About the injections Any muscle in the body can have one or more trigger points. Several injections may be neede d in each trigger point to best relieve pain. These injections may be given in sessions abou t 2weeks apart, depending on the preference of your healthcare provider. In some cases, yo u may not feel much change in your symptoms until after the third injection. Risks and possible complications Risks and complications are very rare, but may include: Infection Bleeding Lung puncture (pneumothorax) Nerve damage Date Last Reviewed: 06/25/[id number] [employer]. [address] [place] [address]. All righ ts reserved. This information is not intended as a substitute for professional medical care. Always follow your healthcare professional's instructions. documented in this encounter Progress Notes Rekha Conte PA-C - 04/12/2019 10:00 AM PSTFormatting of this note might be diffe rent from the original. Satnam Conte PA-C [address] [facility] [place] [address] PHONE: FAX: PHYSIATRY HISTORY AND PHYSICAL EXAMINATION CHIEF COMPLAINT: Chief Complaint Patient presents with New Patient Back Pain HISTORY OF PRESENT ILLNESS: The patient is a 69 y.o. male with the complaint of back sympt oms that began 2 years ago. The patient has a prior history of L2-S1 fusion in 2010 with ri ght SI joint fusion. The patient describes symptom onset following no particular incident bu t he associates right low back pain with a known kidney stone. He reports having had treatm ent by Dr. Fernandes for this kidney stone but his pain did not resolve. Subsequent CT scan s have shown persistence of kidney stone. The symptoms have been gradually worsening. The patient currently has a [employer] Spinal Cord Stimulator. It was placed by Dr. Diogo santiago in [place]. He reports that his SCS is MRI compatible. He rates the pain as moderate. The symptoms are continuous. He describes the pain as achi ng and throbbing. The patient denies any lower extremity radiation of pain. He reports having had this in past however epidural steroid injections done about a year ago seem to help. The patient also describes right low back pain for the last 2 to 3 months. The patient does report any change in bowel or bladder function recently. His symptoms improve with sitting. His symptoms worsen with sitting. He has tried PT and Steroids. He has had prior epidural steroid injections possibly at [facility]. He has recently started physical therapy. 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 Lumbago Lumbar spondylosis Moderate recurrent major depression (HCC) Multiple sclerosis (HCC) Neurogenic bladder intermittment catheterizes Pulmonary emboli (HCC) 1978 Pyelonephritis, acute Right flank pain 12/20/2018 Right nephrolithiasis 12/20/2018 Sleep apnea not using CPAP Urinary tract infection, site not specified PAST SURGICAL HISTORY: Past Surgical History: Procedure Laterality Date ANKLE FRACTURE SURGERY Right 2009 Plate BACK SURGERY 2013 Spinal Cord Stimulator - nerve stimulators BLADDER SURGERY N/A 06/20/2018 Procedure: Cystoscopy, suprapubic catheter placement; Surgeon: Michael Fernandes MD; Location: [facility] MAIN OR CHOLECYCTOSTOMY 1978 COLONOSCOPY 2017 Normal, Dr Arroyo CYSTOSCOPY N/A 04/19/2018 Procedure: Cystoscopy, bladder Botox, injection of urethral bulking agent; Surgeon: Gina Fernandes MD; Location: [facility] MAIN OR GASTRIC BYPASS SURGERY 2001 2 x HAND SURGERY 07/2018 KNEE SURGERY Bilateral LAP BAND 2010 LUMBAR FUSION 2011 URETEROSCOPY Right 01/03/2019 Procedure: CYSTOSCOPY Right URETEROSCOPY W/ LASER lithotripsy and stent; Surgeon: Michael Fernandes MD; Location: [facility] MAIN OR urinary stimulator 2005 VARICOSE VEIN SURGERY CURRENT MEDICATIONS: Current Outpatient Medications Medication Sig Dispense Refill Blood Glucose Monitoring Suppl KIT 1 kit by Does not apply route Daily. Daily and as ne eded as directed by provider 1 each 0 cholecalciferol (VITAMIN D3) 50 mcg (2,000 units) capsule Take 2,000 Units by mouth. Iron Sucrose (VENOFER IV) Inject into the vein Every 3 months. rOPINIRole (REQUIP) 2 MG tablet Take 1 tablet by mouth nightly. 90 tablet 1 sodium chloride 0.9% QS Base with ocrelizumab 30 mg/mL SOLN Inject into the vein. traZODone (DESYREL) 100 mg tablet Take 1 tablet by mouth nightly. 30 tablet 0 UNKNOWN TO PATIENT Inject into the vein. Infusion for MS Twice a year (patient doesn't know name) warfarin (COUMADIN) 5 mg tablet Take 2 tablets by mouth Daily. 60 tablet 0 No current facility-administered medications for this visit. ALLERGIES: Allergies Allergen Reactions Adhesive & Tape Rash and Other (See Comments) Paper tape [place] SOCIAL HISTORY: The patient reports that he has never smoked. He has never used smokeless tobacco. He repo rts that he does not drink alcohol or use drugs. FAMILY HISTORY: Family History Problem Relation Age of Onset Lung cancer Mother Tobacco Use Mother Cancer Father bone cancer No known problems Maternal Grandmother No known problems Maternal Grandfather No known problems Paternal Grandmother No known problems Paternal Grandfather No known problems Daughter Prostate cancer Neg Hx REVIEW OF SYSTEMS: GENERALLY: No fever, no night sweats, no anemia, + fatigue, no recent profound weight risa nges. EYES: No eye problems, no impaired sight, no use of corrective lenses, no eye injury, no d ouble vision, no transient blindness. EARS, NOSE, AND THROAT: No changes in taste or smell, no hearing difficulty, + ringing in the ears, no ear drainage, no ear injury, no dizziness, no voice changes, no difficulty swal lowing, no significant snoring, + sleep apnea/CPAP, no sinus problems, no major dental work. NEUROLOGICALLY: Please see the review of systems discussed above in the history of present illness. In addition, He has weakness, change in walk, back injury, pain in back. PSYCHIATRIC: + depression, no difficulty sleeping, no anxiety, no bipolar disorder. CARDIOVASCULAR: No heart attacks, no heart murmur, no heart fluttering, no chest pain, no ankle swelling. LUNG DISEASE: No shortness of breath, no cough, no tuberculosis, no bloody cough, no asthm a, no emphysema/COPD. GASTROINTESTINAL: No bowel disease, no nausea or vomiting, no rectal bleeding, no constipa tion, no fecal stool incontinence, no liver/gallbladder disease, no abdominal pain, no ulcer s. KIDNEY DISEASE: + urinary frequency, no painful or difficult urination, + urinary incontin ence, no bladder problems, no impotence. ENDOCRINE: No diabetes, no thyroid disease, + osteopenia or osteoporosis, no breast draina ge. SKIN: No breast lumps, no skin disease or skin changes, no rashes/itches. HEMATOLOGIC/LYMPHATIC: No enlarged lymph nodes, no easy or unusual bleeding, no personal h istory of cancer. RHEUMATOLOGIC: No joint pain/arthritis, no rheumatoid arthritis. PHYSICAL EXAMINATION: Blood pressure 134/85, pulse 70, resp. rate 16, height 1.778 m (5' 10"), weight 93 kg (205 lb). Body mass index is 29.41 kg/m. GENERAL: Mian Marquez is in no acute distress with unlabored respirations. He does not lola ear uncomfortable throughout the exam today. HEENT: Head: Normocephalic/atraumatic with no areas of recent trauma. Eyes: Normal sclerae without icterus. Ears: No drainage or tenderness. Nasopharynx: Clear without drainage. Oropharynx: Clear without erythema. NECK (ANTERIOR): Supple and without palpable masses. CHEST: Unlabored respirations HEART: No lower extremity edema noted ABDOMEN: Soft, non-tender, non-distended, and without palpable masses. The patient is not obese. NEUROLOGICAL: The patient is awake, alert, and oriented to time, place, person. He follows simple and complex commands. His speech is fluent. He comprehends speech well. He has no apparent deficits with short or moth exterminator memory. Cranial nerves 2-12 appear grossly intact. Sensory exam does not show diminished sensation to light touch in the bilateral lower extr emities. EXTREMITIES: No cyanosis, clubbing, or edema. Distal pulses are palpable. PHYSICAL EXAM: MENTAL STATUS: He is awake, alert, and oriented. He follows simple and complex commands. His speech is fluent, he comprehends speech well, and he repeats well. He has no apparent deficits with short or moth exterminator memory. CRANIAL NERVES: II: Acuity is intact. [place] are full to confrontation. III, IV, : The pupils are reactive. Extraocular movements are intact. No ptosis is note d. V: Facial sensation is intact and symmetric. VII: Facial movements are symmetric. VIII: Hearing is intact bilaterally. IX, X: The uvula and palate move appropriately. XI: Shrug is equal bilaterally. XII: Tongue protrusion is midline. MOTOR EXAM: (5 IS NORMAL) * Indicates pain limited MUSCLE/ MOVEMENT: RIGHT LEFT Hip Flexion 5 5 Hip Extension 5 5 Knee Flexion 4 5 Knee Extension 5 5 Dorsiflexion 5 4 Extensor Hallicus Longus 5 4 Plantarflexion 5 5 REFLEXES: (2 OR 2+ IS NORMAL) REFLEX: RIGHT LEFT PATELLAR 2 2 ACHILLES 2 2 GAIT: Gait is unsteady with an antalgic gait favoring his right leg. Is unable to tiptoe or heel walk. Lumbar flexion produces low back pain in the right L4-S1 lateral region. The patien t denies any tenderness over bilateral SI joint or trochanteric bursa. PERIPHERAL NERVE/MISC: Straight leg raise is negative bilaterally. Nathaniel's test of the hips is negative bilaterally. TEST AND RADIOGRAPHIC REVIEW: His imaging was reviewed in detail today during the visit. I do not have any lumbar MRI im ages to review. Lumbar x-rays from 12/12/2018 shows Mike and screw fixation from L2-S1 with right SI joint do wels. SCS leads in the T9-10 interspace. ASSESSMENT: NEUROSURGICAL DIAGNOSES: Encounter Diagnoses Name Primary? 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 Patient's descri ption of symptoms, physical exam, and imaging suggest this diagnosis at this time. 2) I counseled patient on treatment options which included conservative self management usi ng OTC NSAIDs/Ice and heat packs, physical therapy, prescription medications, epidural stero id injection, neuromodulation therapies, as well as possible surgical intervention. 3) Imaging: As descibed above in radiology review. Lumbar MRI was ordered to assess lumbar spine for herniation, disc pathology, and/or nerve root impingement that may be contributing to patient's symptoms. Results we called the orion ent with treatment options 4) The patient has had significant conservative care including medications (NSAIDS and narc otics), PT (multiple sessions over the years) and pharmacy care coordinator. Unfortunately Mian adler continues to have significant discomfort. It appears to me that the pain is primarily c oming from muscle tension from muscular dysfunction related to extensive lumbar fusion. I did feel that Mian Marquez would be a good candidate for interventional procedures and I offered a trigger point injection today to be done. After the patient gave consent for the procedure the trigger point injections were performe d using sterile no-touch technique and a 25 gauge 1.5 inch needle. The areas were prepped w ith alcohol. The needle was then advanced into 10 different trigger points and a total of 5 mL each of 0.5% bupivicaine and 1% lidocaine was injected divided between the 10 sites. T he patient was instructed to ice the areas and to watch for signs of infection. 5) Patient will follow up with me as needed after MRI results and recommendations. 6) If current treatment plan is insufficient for symptom relief we could try repeat TPI, co ntinuation of PT and injections pending MRI results as the next therapy option. I spent 30 minutes in visit with Mian Marquez today with the majority of time spent ip counsel ling the patient on his diagnosis, options for his care, and coordinating his care. 04/12/19 ELECTRONICALLY SIGNED BY: Satnam Conte PA-C, 04/12/2019 10:37 AM documented in this encounter Plan of Treatment +--------+---------+ + + + | Date | Type | Specialty | Care Team | Description | +--------+---------+ + + + | 11/12/ | Office | Sleep Medicine | Laith Sheffeild PA | | | 2019 | Visit | | [address] | | | | | | [place] | | | | | | [address] | | | | | | | | +--------+---------+ + + + + +---------+--------+ + + | Name | Type | Priori | Associated Diagnoses | Order Schedule | | | | ty | | | + +---------+--------+ + + | MRI Lumbar Spine wo | Imaging | Routin | S/P lumbar fusion | Expected: | | Contrast | | e | Chronic low back | 04/12/2019, Expires: | | | | | pain without | 04/12/2020 | | | | | sciatica, | | | | | | unspecified back | | | | | | pain laterality | | | | | | Multiple sclerosis | | | | | | ([facility]) | | + +---------+--------+ + + documented as of this encounter Visit Diagnoses + + | Diagnosis | + + | S/P lumbar fusion - Primary Arthrodesis status | + + | Chronic low back pain without sciatica, unspecified back pain laterality | + + | Multiple sclerosis (HCC) Multiple sclerosis | + + | Myalgia Mylagia and myositis, unspecified | + + documented in this encounter Administered Medications + + + +-------+------+------+ | Medication Order | MAR | Action | Dose | Rate | Site | | | Action | Date | | | | + + + +-------+------+------+ | lidocaine 1% injection 5 mL 5 | Given by | 04/12/19 | 5 mLs | | | | mL, Other, ONCE, 04/12/19 at | Other | 20 11:08 | | | | | 1115, For 1 dose | | AM PST | | | | + + + +-------+------+------+ +---+---+ | | | +---+---+ + + + +-------+---+---+ | ropivacaine (NAROPIN) 5 mg/mL | Given by | 04/12/19 | 5 mLs | | | | (0.5%) injection 5 mL 5 mL, | Other | 20 11:08 | | | | | Other, ONCE, 04/12/19 at 1115, | | AM PST | | | | | For 1 dose | | | | | | + + + +-------+---+---+ +---+---+ | | | +---+---+ documented in this encounter
--- OUTSIDE RECORDS SUMMARY | ~2019-08-23 | XMS | Encounter Summary ---
Demographics + + + | Address | [address] | | | [place] [address] | + + + | Home Phone [...] + | Author | [facility] | | | and Jadenana | + + + | Organization | [facility] | | | and Jadenana [...] | | | | | [place] [address] | | + + + + + Care Team Providers + +------+ + | Care Tenoner Operator Name | Role | Phone | + +------+ + | Lexie Cagle | PCP | | | LABORER [employer] | | | + +------+ + Encounter Details +--------+ + + + + | Date | Type | Department | Care Team | Description | +--------+ + + + + | 01/22/ | Imaging | [facility] | Provider, | | | 2019 | Exam | [facility] | MD [address] | | | | | IMAGING [address] | | | | | [address] [place] | [place] [address] | | | | | [facility] [place] [place] [address] | | | | | | [phone] | | | +--------+ + + + [...] [place] | | | | | | [address] | | | | | | | | +--------+---------+ + + + documented as of this encounter Procedures + +--------+ + + + | Procedure Name | Priori | Date/Time | Associated Diagnosis | Comments | | | ty | | | | + +--------+ + + + | US RENAL COMPLETE | Routin | 01/18/2019 | | Results for this | | | e | 12:00 AM | | procedure are in the | | | | PDT | | results section. | + +--------+ + + + documented in this encounter Results Renal Complete (01/18/2019 12:00 AM PDT) + + | Specimen [...]
--- OUTSIDE RECORDS SUMMARY | ~2019-08-23 | XMS | Encounter Summary ---
Demographics + + + | Address | [address] | | | [place] [address] | + + + | Home Phone | | + + + | Preferred Language | Unknown | + + + | Marital Status | | + + + | Cheondoism Affiliation | Unknown | + + + | Race | Unknown | + + + | Ethnic Group | Unknown | + + + Author + + + | Author | [facility] | | | and Jadenana | + + + | Organization | [facility] | | [...] | | | | | [place] [address] | | + + + + + Care Team Providers + +------+ + | Care Canvas Cutter Hand Name | Role | Phone | + +------+ + | Lexie Cagle | PCP | | | KEY FILER | | | + +------+ + Reason for Visit + + + | Reason | Comments | + + + | Confirmation | | + + + Encounter Details +--------+ + + + + | Date | Type | Department | Care Team | Description | +--------+ + + + + | 07/03/ | Telephone | [facility] | Lexie Cagle | Confirmation | | 2019 | | MEDICINE [address] | [address] | [address] | | | [address] | [address] [facility] | | | | | [place] [address] | [place] [address] | | | | | [phone] | [phone] | | | | | | | [...] [place] | | | | | | [address] | | | | | | | | +--------+---------+ + + + documented as of this encounter Visit Diagnoses Not on filedocumented in this encounter"
--- OUTSIDE RECORDS SUMMARY | ~2019-08-23 | XMS | Encounter Summary ---
Demographics + + + | Address | [address] | | | [place] [address] | + + + | Home Phone | | + + + | Preferred Language | Unknown | + + + | Marital Status | | + + + | Jehovah'S Witness Affiliation | Unknown | + + + | Race | Unknown | + + + | Ethnic Group | Unknown | + + + Author + + + | Author | [facility] | | | and Jadenana | + + + | Organization | [facility] | | | and [...] | Zuleyma Ayala | ECON | [address] | | | | | [place] [address] | | + + + + + Care Team Providers + +------+ + | Care Night Time Babysitter Name | Role | Phone | + +------+ + | Lexie Cagle | PCP | | | IMPREGNATOR ELECTROLYTIC CAPACITORS | | | + +------+ + Reason [...] | | Procedures | PRE[place]OUS [place] | [address] Phone: | | | | | [place] | [address] | [phone] | | | | | CYSTOURETHRO | Phone: | Fax: | | | | | SCOPY INJ | [phone] | [phone] | | | | | CHEMODENERVA | Fax: | | | | | | TION BLADDER | [phone] | | | | | | [place] | | | | | | | [...] + + | 10/11/ | Office | [facility] | Michael Fernandes | Neurogenic bladder | | 2019 | Visit | [address] | MD Yaw [address] | (Primary Dx); Urge | | | | [place], [place] | AVE [place]CI[place] | incontinence; Pyuria | | | | [address] | [address] | | | | | [phone] | | | +--------+---------+ + + + [...] prepped and draped usual fashion. A 17 Mosotho cystoscope was advanced bladder via the urethra. [...] catheter placement; Surgeon: Michael Fernandes MD; Location: [facility] MAIN OR CHOLECYCTOSTOMY CYSTOSCOPY N/A 04/19/2018 Procedure: Cystoscopy, bladder Botox, injection of urethral bulking agent; Surgeon: Gina Fernandes MD; Location: [facility] MAIN OR GASTRIC BYPASS SURGERY [...] UA, POC Negative Negative, 100 mg/dL Specific [place], UA, POC 1.015 1.001 - 1.030 Blood, [...] have not thoroughly proofread this note, and garden implement mechanic errors are very likely to occur. CC: [...] [place] | | | | | | [address] | | | | | | | [...] 1.001 - 1.030 | | | | [place], | | | | | | UA, [...] + | [facility] | [address] | [place] | [phone] | | [facility] | | [address] | | | - LABORATORY | | [...] ST. | [address] | [place] | [phone] | | [facility] | | [address] | | | - LABORATORY | | [...] | | | | | Intracatheter, ONCE, [facility] 10/11/18 | | PM PDT | | | | | at 1600, For 1 dose, For Botox | | | | | | | reconstitution and | | | | | | | administration, | | | | | | + +-------+ +--------+---+---------+ +---+---+ | | | +---+---+ documented in this encounter
--- OUTSIDE RECORDS SUMMARY | ~2019-08-23 | XMS | Encounter Summary ---
Demographics + + + | Address | [address] | | | [place] [address] | + + + | Home Phone | | + + + | Preferred Language | Unknown | + + + | Marital Status | Single | + + + | Islam Affiliation | LUTHERAN | + + + [...] Team Providers + +------+ + | Care Water Plant Maintenance Mechanic Name | Role | Phone | [...] as of this encounter Progress Notes Interface, Lining Ironer In - 10/24/2004 6:13 AM PDT [id number] [facility] Date: 09/01/2004 Clinic: Neurology/Multiple Sclerosis/Neuroimmunology Clinic [...] Lei Huitron M.D. MYKE / VICTOR M [id number] / [id number] / [id number] / [id number] Electronically signed by Lei Huitron 09-07-2004 09:17:51 [...] | | | | | | [place] [address] | | +--------+ + + + + documented as of this encounter Visit Diagnoses Not on filedocumented in this encounter"
--- OUTSIDE RECORDS SUMMARY | ~2019-08-23 | XMS | Encounter Summary ---
Demographics + + + | Address | [address] | | | [place] [address] | + + + | Home Phone | | + + + | Preferred Language | Unknown | + + + | Marital Status | Single | + + + | Yarsani Affiliation | DENOMINATIONAL | + + + | Race | [...] Providers + +------+ + | Care Manager Mountain Name | Role | Phone | + +------+ + | Jose Hameed MD | PCP | | + +------+ + Encounter Details +--------+ + + + + | Date | Type | Department | Care Team | Description | +--------+ + + + + | 01/18/ | Telephone | Neurology at | Christian Maldonado MD | | | 2018 | | [place] for [facility] & | [address] | | | | | Healing [address] | [place], | | | | | [place] Mailcode: CH8C | [place] [address] | | | | | [facility] | [phone] | | | | | and Healing, | | | | | | | | | | | | [place], [place] | | | | | | [address] | | | | | | [phone] | | | +--------+ + + + [...] | | | | | | [place] [address] | | +--------+ + + + + documented as of this encounter Visit Diagnoses Not on filedocumented in this encounter"
--- OUTSIDE RECORDS SUMMARY | ~2019-08-23 | XMS | Encounter Summary ---
Demographics + + + | Address | [address] | | | [place] [address] | + + + | Home Phone [...] + + | Author | [facility] | | | and Jadenana | + + + | Organization | [facility] | [...] | | | | | [place] [address] | | + + + + + Care Team Providers + +------+ + | Care Automobile Glass Technician Name | Role | Phone | + +------+ + | Lexie Cagle | PCP | | | STATE HISTORICAL SOCIETY DIRECTOR | | | + +------+ + Reason for Visit +---------+ + | Reason | Comments | +---------+ + | Imaging | | +---------+ + Encounter Details +--------+ + + + + | Date | Type | Department | Care Team | Description | +--------+ + + + + | 01/31/ | Telephone | [facility] | Lexie Cagle | Imaging | | 2019 | | MEDICINE [address] | [address] | | | | | [address] | [address] [facility] | | | | | [place] [address] | [place] [address] | | | | | [phone] | [phone] | | | | | | | [...] 2020 | Visit | | [address] | | | | | | [place] | | | | | | [address] | | | | | | | | +--------+---------+ + + + documented as of this encounter Visit Diagnoses Not on filedocumented in this encounter"
--- OUTSIDE RECORDS SUMMARY | ~2019-08-23 | XMS | Encounter Summary ---
Demographics + + + | Address | [address] | | | [place] [address] | + + + | Home Phone | | + + + | Preferred Language | Unknown | + + + | Marital Status | Single | + + + | Nondenominational Affiliation | SPIRITISM | + + + [...] Providers + +------+ + | Care Quarry Equipment Operator Name | Role | Phone | + +------+ + | Jose Hameed MD | PCP | | + +------+ + Encounter Details +--------+ + + + + | Date | Type | Department | Care Team | Description | +--------+ + + + + | 11/18/ | Telephone | [facility] | [place], | | | 2017 | | Clinics at S | MD Patrick [address] | | | | | [facility] | [place], | | | | | for Health and | [place] [address] | | | | | Healing [address] | [phone] | | | | | [place] | | | | | | [address] | | | | | | [phone] | | | +--------+ + + + [...] | | | | | | [place] [address] | | +--------+ + + + + documented as of this encounter Visit Diagnoses Not on filedocumented in this encounter"
--- OUTSIDE RECORDS SUMMARY | ~2019-08-23 | XMS | Encounter Summary ---
Demographics + + + | Address | [address] | | | [place] [address] | + + + | Home Phone [...] + + | Author | [facility] | | | and Jadenana | + + + | Organization | [facility] | | | and [...] | | | | | [place] [address] | | + + + + + Care Team Providers + +------+ + | Care Inspector Shells Name | Role | Phone | + +------+ + | Lexie Cagle | PCP | | | PROTEOMICS SCIENTIST | | | + +------+ + Reason for Visit + + + | Reason | Comments | + + + | Incontinence | condom caths | | Supplies | | + + + Encounter Details +--------+ + + + + | Date | Type | Department | Care Team | Description | +--------+ + + + + | 01/15/ | Documentati | [facility] | Michael Fernandes | Incontinence | | 2019 | on | [address] | MD Yaw [address] | Supplies (condom | | | | PRECIOUS [place] | [place] | caths) | | | | [address] | [address] | | | | | [phone] | | | +--------+ + + + [...] encounter Progress Notes Manju Mccartney RN - 01/15/2019 1:11 PM PDTHe would like to try the condom caths. Can you order some and he can try them out? Faxed order to [facility] with insurance cards and demographics. documented in this encounter Plan of Treatment [...] [place] | | | | | | [address] | | | | | | | | +--------+---------+ + + + documented as of this encounter Visit Diagnoses Not on filedocumented in this encounter"
--- OUTSIDE RECORDS SUMMARY | ~2019-08-23 | XMS | Encounter Summary ---
Demographics + + + | Address | [address] | | | [place] [address] | + + + | Home Phone | | + + + | Preferred Language | Unknown | + + + | Marital Status | Single | + + + | Anabaptist Affiliation | EVANGELICAL | + + + | Race | White | + + + | Ethnic Group | Not or | + + + Author + + + | Author | [facility] | + + + | Organization | [facility] | + + + | Address | Unknown | + + + | Phone | Unavailable | + + + Support + + +---------+ + | Name | Relationship | Address | Phone | + + +---------+ + | Theodore Marquez | ECON | Unknown | | + + +---------+ + Care Team Providers + +------+ + | Care Echometer Engineer Name | Role | Phone | + +------+ + | Trevin Delacruz MD | PCP | | + +------+ + Encounter Details +--------+ + + + + | Date | Type | Department | Care Team | Description | +--------+ + + + + | 06/24/ | Document-Sc | UNKNOWN DEPARTMENT | Unknown . | | | 2015 | anned | [address] | | | | | | [address] | | | | | | [place], [place] | | | | | | [address] | | | +--------+ + + + [...] | | | | | | [place] [address] | | +--------+ + + + + documented as of this encounter Visit Diagnoses Not on filedocumented in this encounter"
--- OUTSIDE RECORDS SUMMARY | ~2019-08-23 | XMS | Encounter Summary ---
Demographics + + + | Address | [address] | | | [place] [address] | + + + | Home Phone | | + + + | Preferred Language | Unknown | + + + | Marital Status | Single | + + + | Rastafari Affiliation | ADVENT | + + + [...] Team Providers + +------+ + | Care X Ray Service Technician Name | Role | Phone | + +------+ + | Rudolph Lee MD | PCP | | + +------+ + Encounter Details +--------+ + + + + | Date | Type | Department | Care Team | Description | +--------+ + + + + | 02/13/ | Document-Sc | UNKNOWN DEPARTMENT | Unknown . | | | 2013 | anned | [address] | | | | | | [address] | | | | | | [place], [place] | | | | | | [address] | | | +--------+ + + + [...] | | | | | | [place] [address] | | +--------+ + + + + documented as of this encounter Visit Diagnoses Not on filedocumented in this encounter"
--- OUTSIDE RECORDS SUMMARY | ~2019-08-23 | XMS | Encounter Summary ---
Demographics + + + | Address | [address] | | | [place] [address] | + + + | Home Phone | | + + + | Preferred Language | Unknown | + + + | Marital Status | Single | + + + | Orthodox Affiliation | CONFUCIANIST | + + + [...] Providers + +------+ + | Care Business Case Analyst Name | Role | Phone | [...] + + | 11/20/ | Hospital | [facility] | Onc, Gen [address] | | | 2019 | Encounter | Clinics at S | [address] [place], | | | | | [facility] | [place] [address] | | | | | for Health and | | | | | | [facility] [address] | | | | | | [place], [place] | | | | | | [address] | | | | | | [phone] | | | +--------+ + + + [...] 2019 | | Oncology | [address] [place], | | | | | | [place] [address] | | +--------+ + + + + [...] | if patient does not have a p d driver | | | | | | [...]
--- OUTSIDE RECORDS SUMMARY | ~2019-08-23 | XMS | Encounter Summary ---
Demographics + + + | Address | [address] | | | [place] [address] | + + + | Home Phone | | + + + | Preferred Language | Unknown | + + + | Marital Status | Single | + + + | Rastafarian Affiliation | SHINTO | + + + | Race | [...] Team Providers + +------+ + | Care Mash Tub Cooker Name | Role | Phone | + [...] as of this encounter Progress Notes Interface, Insole Tack Puller Hand In - 10/01/2005 1:10 AM [place] [facility] [place] [address] [place], [place] [address] or May 09, 2002 Og Novak M.D. [facility] [address] [address] RE: MIAN MARQUEZ MR #: [id number] Dear Dr. Novak: This is a letter [...] these matters. Yours truly, Colin Posada M.D. [facility] General Rollout Managerautomotive accessory installer SHAWN / VICTOR M [id number] / [id number] / [id number] / Tdocumented in this encounter Plan of Treatment +--------+ + + + + | Date | Type | Specialty | Care Team | Description | +--------+ + + + + | 10/31/ | Appointment | Hematology & | Onc, Gen [address] | | | 2020 | | Oncology | [place], | | | | | | [place] [address] | | +--------+ + + + + documented as of this encounter Visit Diagnoses Not on filedocumented in this encounter"
--- OUTSIDE RECORDS SUMMARY | ~2019-08-23 | XMS | Encounter Summary ---
Demographics + + + | Address | [address] | | | [place] [address] | + + + | Home Phone | | + + + | Preferred Language | Unknown | + + + | Marital Status | Single | + + + | Denominational Affiliation | CONFUCIANIST | + + + [...] Team Providers + +------+ + | Care Practical Nurse Clinical Coordinator Name | Role | Phone | + +------+ + | Rudolph Lee MD | PCP | | + +------+ + Encounter Details +--------+ + + + + | Date | Type | Department | Care Team | Description | +--------+ + + + + | 02/06/ | H&P-Transcr | | Physical, History | Hstry & Physical | | 2002 | ibed | | & | | +--------+ + + + + [...] | | | | | | [place] [address] | | +--------+ + + + + documented as of this encounter Visit Diagnoses Not on filedocumented in this encounter"
--- OUTSIDE RECORDS SUMMARY | ~2019-08-23 | XMS | Encounter Summary ---
Demographics + + + | Address | [address] | | | [place] [address] | + + + | Home Phone | | + + + | Preferred Language | Unknown | + + + | Marital Status | | + + + | Church Affiliation | Unknown | + + + | Race | Unknown | + + + | Ethnic Group | Unknown | + + + Author + + + | Author | [facility] | | | and Jadenana | + + + | Organization | [facility] [...] | | | | | [place] [address] | | + + + + + Care Team Providers + +------+ + | Care Monument Letterer Name | Role | Phone | + +------+ + | Lexie Cagle | PCP | | | ENVIRONMENTAL PROGRAMS SPECIALIST | | | + +------+ + [...] | Flank pain | Michael | [address] | | | | | Chronic | MD Yaw | [place], | | | | | right-sided | [address] | [place] [address] | | | | | low back | AVE [place] | Phone: | | | | | pain with | [place], [place] | [phone] | | | | | sciatica, | [address] | Fax: | | | | | sciatica | Phone: | [phone] | | | | | laterality | [phone] | | | | | | unspecified | Fax: | | | | | | Procedures | [phone] | | | | | | CT [...] | + + + | Follow-up | Flank pain | + + + Encounter Details +--------+---------+ + + + | Date | Type | Department | Care Team | Description | +--------+---------+ + + + | 12/14/ | Office | [facility] | Michael Fernandes | Flank pain (Primary | | 2019 | Visit | [address] | MD Yaw [address] | Dx); Chronic | | | | [place] | [address] [place] | right-sided low back | | | | [address] | [address] | pain with sciatica, | | | | [phone] | | sciatica laterality | | | | | | unspecified; Acute | | | | | | right-sided low back | | | | | | pain with | | | | | | right-sided sciatica | +--------+---------+ + + + Social History [...] + | Blood Pressure | 118/62 | 12/14/2018 8:59 AM | | | | | PDT | | + + + + + | Pulse | 72 | 12/14/2018 8:59 AM | | | | | PDT | | + + + + + | Temperature | - | - | | + + + + + | Respiratory Rate | 16 | 12/14/2018 8:59 AM | | | | | PDT | | + + + + + | Oxygen Saturation | - | - | | + + + + + | Inhaled Oxygen | - | - | | | Concentration | | | | + + + + + | Weight | 91.2 kg (201 lb) | 12/14/2018 8:59 AM | | | | | PDT | | + + + + + | Height | 177.8 cm (5' 10") | 12/14/2018 8:59 AM | | | | | PDT | | + + + + + | Body Mass Index | 28.84 | 12/14/2018 8:59 AM | | | | | PDT | | + + + + + documented in this encounter Progress Michael Doyle MD - 12/14/2018 9:15 AM PDTFormatting of this note might be differ ent from the original. Chief Complaint Patient presents with Follow-up Flank pain HPI Mian Marquez is a 68 y.o. male patient of Lexie Cagle APRN here today for a follow u p for flank pain. MS-diagnosed in 1997, symptoms have been relatively stable with the exception of the bladde r History of neurogenic bladder detrusor instability with impaired contractility ISD Nephrolithiasis Patient is colonized with ESBL Presented to urgent care with worsening right low back pain where xrays were performed. A possible kidney stone was found on the right. Pain is described as sharp, standing makes the pain better, laying down flat makes the pain worse. Pain involves the right side of his low back and can radiate into his right buttock as well as the lateral part of the leg. At times he can become so severe that he can even move. No nausea or vomiting, no fever or chills, no gross hematuria. Assessment Mian was seen today for follow-up. 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 It appears the pain is more likely rel ated to his back with radicular symptoms. Will order CT scan. If the kidney stone is indee d found it will likely need treatment however again I do not believe this is the source of h is acute pain. Patient asked about pain medicine for his back pain. I discussed that is a policy I generally do not write narcotic pain medication for patients that I have not operat ed on. It is also better that the patient obtain all of his pain medicine from one source. 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 The plastic surgeon james coronado he saw also recommended a scrotal reduction surgery. His plastic surgeon stated that [place] [facility] does not perform scrotectomy and asked whether I could perform surgery here at [facility]. That is something that I can perform however it would require a second procedure. The eas iest thing for the patient would be to undergo the scrotal resection at the same time as his panniculectomy. Another urologist at [facility] could perform this aspect of the surgery and all ow the patient to have everything done at once. Past Medical History Past Medical History: Diagnosis [...] catheter placement; Surgeon: Michael Fernandes MD; Location: [facility] MAIN OR CHOLECYCTOSTOMY CYSTOSCOPY N/A 04/19/2018 Procedure: Cystoscopy, bladder Botox, injection of urethral bulking agent; Surgeon: Gina Fernandes MD; Location: [facility] MAIN OR GASTRIC BYPASS SURGERY 2001 [...] capsule, Take by mouth., Disp: , Rfl: Blood Glucose Monitoring Suppl KIT, 1 kit by Does not apply route Daily. Daily and as needed as directed by provider, Disp: 1 each, Rfl: 0 cholecalciferol (CHOLECALCIFEROL) 5000 units TABS, Take 5,000 Units by mouth Daily., D isp: , Rfl: gabapentin (NEURONTIN) 300 mg capsule, Take 300 mg by mouth nightly., Disp: , Rfl: HYDROcodone-acetaminophen (NORCO) 5-325 mg per tablet, Take 1-2 tablets by mouth every 6 hours as needed for Pain (severe back pain)., Disp: 21 tablet, Rfl: 0 oxybutynin (DITROPAN-XL) 10 MG 24 hr tablet, Take 1 tablet by mouth 2 times daily., Di sp: 60 tablet, Rfl: 3 rOPINIRole (REQUIP) 2 MG tablet, Take 1 [...] Negative for nausea and vomiting. Objective BP 118/62 | Pulse 72 | Resp 16 | Ht 1.778 m (5' 10") | Wt 91.2 kg (201 lb) | BMI 28.84 kg/m General Appearance: Alert, cooperative, no distress, [...] intact; Strength decreased in lower extremeties Data: Plain film x-rays of the lumbar spine November 2018 Personally viewed and interpreted x-ray images. Significant for approximately 1 cm x 1.5 cm calcification seen in what is likely the lower pole of the right kidney. Results for orders placed or performed in visit on 11/28/18 External Lab: [facility] INR Result Value Ref Range INR, External 1.8 Lab Results Component Value Date CREA 0.84 [...] have not thoroughly proofread this note, and newspaper clipper errors are very likely to occur. CC: [...] [place] | | | | | | [address] | | | | | | | | +--------+---------+ + + + documented as of this encounter Procedures + +--------+ + + + | Procedure Name | Priori | Date/Time | Associated Diagnosis | Comments | | | ty | | | | + +--------+ + + + | IMAGING REPORT - | | 12/12/2018 | | Results for this [...] | | | + +---------+ + + IMAGING REPORT - EXTERNAL SCAN (12/12/2018 12:00 AM PDT) + + + | [...] sciatica, sciatica laterality unspecified | + + | Acute right-sided low back pain with right-sided sciatica | + + documented in this encounter
--- OUTSIDE RECORDS SUMMARY | ~2019-08-23 | XMS | Encounter Summary ---
Demographics + + + | Address | [address] | | | [place] [address] | + + + | Home Phone | | + + + | Preferred Language | Unknown | + + + | Marital Status | Single | + + + | Congregation Affiliation | UATSDIN | + + + | Race | White | + + + | Ethnic Group | Not or | + + + Author + + + | Author | [facility] | + + + | Organization | [facility] | + + + | Address | Unknown | + + + | Phone | Unavailable | + + + Support + + +---------+ + | Name | Relationship | Address | Phone | + + +---------+ + | Theodore Marquez | ECON | Unknown | | + + +---------+ + Care Team Providers + +------+ + | Care Live Source Operator Name | Role | Phone | [...] | | | | | unspecified | [address] | [address] | | | | | | Phone: | Phone: | | | | | Incontinence | [phone] | [phone] | | | | | without | Fax: | Fax: | | | | | sensory | [phone] | [phone] | | | | | awareness | [...] | | | | | | | HOUSE CALLS NURSE | | | | | | | MI EXCISE | | | | | | [...] incontinence, | | | | Surgery at [facility] [address] | unspecified type | | | | [address] | [place], [place] | (Primary Dx); | | | | Mailcode: 5 | [id number] | Multiple sclerosis | | | | [facility] | [phone] | ([facility]); Chronic | | | | and Healing, | | fatigue syndrome; | | | | Building [address]th | | Persistent | | | | Floor [place], [place] | | depressive disorder; | | | | [address] | | Essential | | | | [phone] | | hypertension; CHRISTEN on | | [...] iron infusions in past MS (multiple sclerosis) ([facility]) gait/ cognition issues Obesity CHRISTEN on CPAP Other and unspecified symptoms and signs involving general sensations and perceptions Restless legs Urinary retention self caths Past Surgical History Procedure Laterality Date Lap-band insertion 2011 standard/ [place] gastric bypass 2006 [facility]/ [place] Back surgery lumbar Cholecystectomy as above [...] Lockhart MD PLASTIC AND RECONSTRUCTIVE SURGERY AT [facility] [address] [facility] Mailcode: 5p [place] [phone] documented in this en counter Plan of Treatment +--------+ + + + + | Date | Type | Specialty | Care Team | Description | +--------+ + + + + | 10/31/ | Appointment | Hematology & | Onc, Gen [address] | | | 2019 | | Oncology | [facility], | | | | | | [place] [address] | | +--------+ + + + + [...]
--- OUTSIDE RECORDS SUMMARY | ~2019-08-23 | XMS | Encounter Summary ---
Demographics + + + | Address | [address] | | | [place] [address] | + + + | Home Phone [...] | Author | [facility] | | | and Jadenana | + + + | Organization | [facility] | | [...] | | | | | [place] [address] | | + + + + + Care Team Providers + +------+ + | Care Spareribs Trimmer Name | Role | Phone | + +------+ + | Lexie Cagle | PCP | | | FREIGHT ELEVATOR OPERATOR | | | + +------+ + [...] | Flank pain | Michael | [address] [place] | | | | | Chronic | MD Yaw | [place], | | | | | right-sided | [address] | [place] [address] | | | | | low back | AVE [place] | Phone: | | | | | pain with | [place], [place] | [phone] | | | | | sciatica, | [address] | Fax: | | | | | sciatica | Phone: | [phone] | | | | | laterality | [phone] | | | | | | unspecified | Fax: | | | | | | Procedures | [phone] | | | | | | CT [...] | Flank pain | Michael | [place] | | | | | Chronic | MD Yaw | [place], | | | | | right-sided | [address] | [place] [address] | | | | | low back | AVE [place] | Phone: | | | | | pain with | [place], [place] | [phone] | | | | | sciatica, | [address] | Fax: | | | | | sciatica | Phone: | [phone] | | | | | laterality | [phone] | | | | | | unspecified | Fax: | | | | | | Procedures | [phone] | | | | | | CT [...] + + | 12/14/ | Hospital | [facility] | Michael Fernandes | Flank pain; Chronic | | 2019 | Encounter | [address] | MD Yaw [address] | right-sided low back | | | | [place], | [place], [place] | pain with sciatica, | | | | [place] [address] | [address] | sciatica laterality | | | | [phone] | | unspecified | +--------+ + + [...] [place] | | | | | | [id number] | | | | | | | [...]
--- OUTSIDE RECORDS SUMMARY | ~2019-08-23 | XMS | Encounter Summary ---
Demographics + + + | Address | [address] | | | [place] [address] | + + + | Home Phone [...] + + | Author | [facility] | | | and Jadenana | + + + | Organization | [facility] | | | and [...] | | | | | [place] [address] | | + + + + + Care Team Providers + +------+ + | Care Supervisor Travel Information Center Name | Role | Phone | + [...] [facility] | Michael Fernandes | Results, Critical | | 2019 | | [address] | MD Yaw [address] | | | | | [place] | [place] | | | | | [address] | [address] | | | | | [phone] | | | +--------+ + + + [...] 2020 | Visit | | [address] | | | | | | [place] | | | | | | [address] | | | | | | | | +--------+---------+ + + + documented as of this encounter Visit Diagnoses Not on filedocumented in this encounter"
--- OUTSIDE RECORDS SUMMARY | ~2019-08-23 | XMS | Encounter Summary ---
Demographics + + + | Address | [address] | | | [place] [address] | + + + | Home Phone | | + + + | Preferred Language | Unknown | + + + | Marital Status | | + + + | Muslim Affiliation | Unknown | + + + | Race | Unknown | + + + | Ethnic Group | Unknown | + + + Author + + + | Author | [facility] | | | and Jadenana | + + + | Organization | [facility] | | | and [...] | | | | | [place] [address] | | + + + + + Care Team Providers + +------+ + | Care Manager Child Name | Role | Phone | + +------+ + | Lexie Cagle | PCP | | | ENDO TECH | | | + +------+ + Reason for Visit +---------+ + | Reason | Comments | +---------+ + | Results | | +---------+ + Encounter Details +--------+ + + + + | Date | Type | Department | Care Team | Description | +--------+ + + + + | 09/25/ | Telephone | [facility] | Lexie Cagle | Results | | 2019 | | MEDICINE [address] | [address] | | | | | [address] [place] | [facility] | | | | | [place] [address] | [place] [address] | | | | | [phone] | [phone] | | | | | | | [...] 2020 | Visit | | [address] | | | | | | [place] | | | | | | [address] | | | | | | | | +--------+---------+ + + + documented as of this encounter Results Protime INR (10/11/2018 1:51 PM PDT) + + + + + + | Component | Value | Ref Range | Performed | Pathologist | | | | | At | Signature | + + + + + + | Prothrombin | 20.5 (H) | 11.3 - 13.9 | [facility] | | | Time | | seconds | [facility] | | | | | | MEDICAL | | | | | | CENTER - | | | | | | LABORATORY | | + + + + + + | INR | 1.8 (H)Comment: Usual | 0.9 - 1.1 | [facility] | | | | Oral Anticoagulation | | [facility] | | | | Range: 2.0 - | | MEDICAL | | | | 3.0High Level Oral | | CENTER - | | | | Anticoagulation Range: | | LABORATORY | | | | 2.5 - 3.5 | | | | + + + + + + + + | Specimen | + + | Blood | + + + + + + + | Performing | Address | City/State/Zipcode | Phone Number | | Organization | | | | + + + + + | RENETTA DECKER. | [address] | [place] | [phone] | | [facility] | | [address] | | | - LABORATORY | | | | + + + + + documented in this encounter Visit Diagnoses + + | Diagnosis | + + | Paroxysmal atrial fibrillation (HCC) - Primary Atrial fibrillation | + + | Acute deep vein thrombosis (DVT) of proximal vein of right lower extremity (HCC) | + + documented in this encounter"
--- OUTSIDE RECORDS SUMMARY | ~2019-08-23 | XMS | Encounter Summary ---
Demographics + + + | Address | [address] | | | [place] [address] | + + + | Home Phone [...] + | Author | [facility] | | | and Jadenana | + + + | Organization | [facility] | | | and [...] | | | | | [place] [address] | | + + + + + Care Team Providers + +------+ + | Care Timber Mill Worker Name | Role | Phone | + +------+ + | Lexie Cagle | PCP | | | MOTORS ASSEMBLER | | | + +------+ + [...] PRECIOUS EM | | | | | [address] | [address] | | | | | [phone] | | | +--------+ + + + [...] 2020 | Visit | | [address] | | | | | | [place] | | | | | | [address] | | | | | | | | +--------+---------+ + + + documented as of this encounter Visit Diagnoses Not on filedocumented in this encounter"
--- OUTSIDE RECORDS SUMMARY | ~2019-08-23 | XMS | Encounter Summary ---
Demographics + + + | Address | [address] | | | [place] [address] | + + + | Home Phone | | + + + | Preferred Language | Unknown | + + + | Marital Status | Single | + + + | Rastafarian Affiliation | TENRIISM | + + + [...] Team Providers + +------+ + | Care Mrp Controller Name | Role | Phone | + +------+ + PCP | Unavailable | + +------+ + Encounter Details +--------+ + + + + | Date | Type | Department | Care Team | Description | +--------+ + + + + | 12/18/ | Results | Digestive Health | Jacquelyn Murguia, | | | 2002 | Only | [address] | [facility] | | | | | [address] | | | | | | Mailcode: [id number] | | | | | | [facility] | | | | | | [place], [place] | | | | | | [address] | | | | | | [phone] | | | +--------+ + + + [...] | | | | | | [place] [address] | | +--------+ + + + + [...] | | + +---------+ + + | [facility] | | | | | RADIOLOGY | | | | + +---------+ + + documented in this encounter Visit Diagnoses Not on filedocumented in this encounter"
--- OUTSIDE RECORDS SUMMARY | ~2019-08-23 | XMS | Encounter Summary ---
Demographics + + + | Address | [address] | | | [place] [address] | + + + | Home Phone | | + + + | Preferred Language | Unknown | + + + | Marital Status | Single | + + + | Scientology Affiliation | ALEVISM | + + + [...] Providers + +------+ + | Care Corporate Travel Coordinator Name | Role | Phone | + +------+ + | Jose Hameed MD | PCP | | + +------+ + Reason for Visit +--------+ + | Reason | Comments | +--------+ + | Other | Parking Permit | +--------+ + Encounter Details +--------+ + + + + | Date | Type | Department | Care Team | Description | +--------+ + + + + | 11/11/ | Documentati | Neurology at | Christian Maldonado MD | Other (Parking | | 2016 | on | [facility] | [address] | Permit) | | | | Healing [address] | Park [facility], | | | | | [place] Mailcode: CH8C | [place] [address] | | | | | [facility] | [phone] | | | | | and [place], | | | | | | [facility] | | | | | | [facility], [place] | | | | | | [address] | | | | | | [phone] | | | +--------+ + + + [...] | | | | | | [place] [address] | | +--------+ + + + + documented as of this encounter Visit Diagnoses Not on filedocumented in this encounter"
--- OUTSIDE RECORDS SUMMARY | ~2019-08-23 | XMS | Encounter Summary ---
Demographics + + + | Address | [address] | | | [place] [address] | + + + | Home Phone | | + + + | Preferred Language | Unknown | + + + | Marital Status | Single | + + + | Uatsdin Affiliation | CHRISTIANITY | + + + [...] Providers + +------+ + | Care Sales Department Supervisor Name | Role | Phone [...] | | | | | eruption | [address] | 5th Floor | | | | | Bariatric | Phone: | [place], [place] | | | | | surgery | [phone] | [address] | | | | | status | Fax: | Phone: | | | | | Procedures | [phone] | [phone] | | | | | REQUEST TO | | | | | | | SURGERY | | | | | | | WELDER GAS TUNGSTEN ARC | | | | | | | DE SUCT | | | | | | | ADA | | | | | | | LIPECTOMY,TR | | | | | | | UNK DE | | | | | | | EXCISE | | | | | | | EXCESS SKIN | | | | | | | TISSUE,OTHER | | | | | | | DE EXC | | | | | | | SKIN ABD | | | | | | | ADD-ON DE | | | | | | | EXC SKIN ABD | | | | | | | | | | | | | | [id number] | | | | | | | noplasty | | | | | | | [address] | | | | | | | [id number] | | | | | | | asty | | | | | | | [id number] | | | | | | | [...] | | | | | Abdominal | [place], [place] | Mailcode: | | | | | pannus | [address] | [address] | | | | | Excess skin | | for [facility] | | | | | | | and Healing, | | | | | PANNICULECTO | | Building 1, | | | | | MY | | 5th Floor | | | | | Procedures | | [place], [place] | | | | | CONSULT TO | | [address] | | | | | SURGERY - | | Phone: | | | | | PLASTICS | | [phone] | +--------+--------+ + + + + Encounter Details +--------+---------+ + + + | Date | Type | Department | Care Team | Description | +--------+---------+ + + + | 01/12/ | Office | Plastic and | Neto Lockhart, | 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 [address] | Intertriginous | | | | Kayli Fitzpatrick | [place], [place] | [facility] | | | | Mailcode: [facility] | [address] | | | | | [facility] | [phone] | | | | | and Healing, | | | | | | [facility] 1 | | | | | | Floor [place], [place] | | | | | | [address] | | | | | | [phone] | | | +--------+---------+ + + + [...] Patel MD - 01/12/2015 2:13 PM PDT.2009 [employer]. Purchasers of the Patient Consultation Resource Book are given a l imited license to modify documents contained herein and reproduce the modified version for u se in the [employer]el[employer] Stenographer's own practice only. All other rights are reserved by [employer]. Purchasers may not sell or allow any other green party to use any version of the Patient [...] ear the surgical site can appear either supervisor model making or darker than surrounding skin. Although u [...] ear the surgical site can appear either supervisor model making or darker than surrounding skin. Although u [...] Smoke Exposure, Nicotine Products (Patch, Gum, Nasal [place]): Patients who are currently smoking or use [...] occu r as the result of taking mjnc-ixl-jirjfre, herbal, and/or prescription medications. Aspirin and medications [...] the needs of most patients in most nemours foundation. However, informed-consent documents should not be considered [...] to Sign for Patient Date Witness 2008 [employer]. Purchasers of the Patient Consultation Reso urce Book are given a limited license to modify documents contained herein and reproduce the modified version for use in the Freel[employer] Stenographer's own practice only. All other rights are reserve d by [employer]. Purchasers may not sell or allow any other green party to use any version of the Patient [...] ear the surgical site can appear either supervisor model making or darker than surrounding skin. Although u [...] Smoke Exposure, Nicotine Products (Patch, Gum, Nasal [place]): Patients who are currently smoking or use [...] occu r as the result of taking utuw-eus-bzcwbxq, herbal, and/or prescription medications. Aspirin and medications [...] who currently wear body-piercing jewelry in the [place] region are advised that an infection could [...] the needs of most patients in most nemours foundation. However, informed-consent documents should not be considered [...] also has rashes around his umbilicus. Recommend Jbmbe-hy-jpt abdominoplasty with removal of umbilicus, monsplasty and liposuction. He also has excess medial thigh skin and subcutaneo us tissues. Recommend bilateral medial thigh lift at a later day after his abdominoplasty. Will submit to his insurance for approval. Neto Lockhart MD PLASTIC AND RECONSTRUCTIVE SURGERY AT [facility] [address] [place]: [place] [address] ranav Patel MD - 01/12/2015 1:56 PM [...] Pranav Patel MD PGY-1, Plastic Surgery Pager [phone] signed by Pranav Patel MD at 01/12/2015 7:54 PM PDTdocument ed in this encounter Plan of Treatment +--------+ + + + + | Date | Type | Specialty | Care Team | Description | +--------+ + + + + | 10/31/ | Appointment | Hematology & | Onc, Gen [address] | | | 2019 | | Oncology | [address] [place], | | | | | | [place] [address] | | +--------+ + + + + documented as of this encounter Visit Diagnoses + + | Diagnosis | + + | Lipodystrophy - Primary | + + | Intertriginous candidiasis Candidiasis of skin and nails | + + documented in this encounter
--- OUTSIDE RECORDS SUMMARY | ~2019-08-23 | XMS | Encounter Summary ---
Demographics + + + | Address | [address] | | | [place] [address] | + + + | Home Phone | | + + + | Preferred Language | Unknown | + + + | Marital Status | | + + + | Buddhist Affiliation | Unknown | + + + | Race | Unknown | + + + | Ethnic Group | Unknown | + + + Author + + + | Author | [facility] | | | and Jadenana | + + + | Organization | [facility] | | | and Jadenana [...] | | | | | [place] [address] | | + + + + + Care Team Providers + +------+ + | Care Learning Facilitator Name | Role | Phone | + +------+ + | Shmuel Merrill | PCP | | + +------+ + Reason for Visit Evaluate & Treat (Routine) +--------+ + + + + + | Status | Reason | Specialty | Diagnoses / | Referred By | Referred To | | | | | Procedures | Contact | Contact | +--------+ + + + + + | Closed | Specialty | Sleep | Diagnoses | Juancarlos, | [facility] | | | Services | Medicine | CHRISTEN | Abdoulaye Lima | [place] [address] | | | Required | | (obstructive | MD [address] | | | | | sleep | [place] | [place], | | | | | apnea) | [address] [place] | [place] [address] | | | | | Procedures | [place], [place] | Phone: | | | | | [place] SLEEP | [address] | [phone] | | | | | STUDY, | Phone: | Fax: | | | | | UNATTENDED, | [phone] | [phone] | | | | | RECORD HEART | Fax: | | | | | | RATE/O2 | [phone] | | | | | | SAT/RESP | | | | | | | ANAL/SLEEP | | | | | | | TIME | | | | | | | WATCH-PAT | | | | | | | with CSA | | | | | | | monitoring | | | +--------+ + + + + + Encounter Details +--------+ + + + + | Date | Type | Department | Care Team | Description | +--------+ + + + + | 06/19/ | Hospital | [facility] | Abdoulaye Bauer | CHRISTEN (obstructive | | 2019 - | Encounter | MED CTR SLEEP | MD [address] [place] | sleep apnea) | | | | [place] [address] | [address] [facility] | | | 06/20/ | | [place], [place] | [place] [address] | | | 2019 | | [address] | [phone] | | | | | [phone] | | | +--------+ + + + [...] + + +---------+ + + | | | | 0 | //20 | | | HYDROcodone-acetamin | | | | 20 | | | ophen (NORCO) 5-325 | | | | | | | mg per tablet | | | | | | + + + +---------+ + + | | | | 0 | /20 | | | oxyCODONE-acetaminop | | | | 20 | | | hen (PERCOCET) 5-325 | | | | | | | mg per tablet | | | | | | + + + +---------+ + + | rOPINIRole | Take 1 tablet by | 90 | 1 | 02/08/20 | | | (REQUIP) 2 MG | mouth nightly. | tablet | | 19 | | | tabletIndications: | | | | | | | RLS (restless legs | | | | | | | syndrome) | | | | | | + + + +---------+ + + | sodium chloride | Inject into the | | 0 | | | | 0.9% QS Base with | vein. | | | | | | ocrelizumab 30 mg/mL | | | | | | | SOLN | | | | | | + + + +---------+ + + | traZODone | Take 100 mg by mouth | | 0 | | | | (DESYREL) 100 mg | nightly. | | | | | | tablet [...] + +---------+ + + | warfarin | Take 2 tablets by | 60 | 0 | 02/05/20 | | | (COUMADIN) 5 mg | mouth Daily. | tablet | | 19 | | | tablet | | | [...] 2020 | Visit | | [address] | | | | | | [place] | | | | | | [address] | | | | | | | [...] + + documented in this encounter Results Sleep study home sleep test (06/20/2019 3:00 PM PDT) + + + | Narrative | Performed At | + + + | Abdoulaye Lima | | | Juancarlos Menezes MD 06/21/2019 1:18 PM [facility] | | | [place] [address] | | | Unattended, Multiparameter, Sleep Apnea [...] using the | | | WatchPat technology (Food52). This monitors referral | | | arterial [...] | of Obstructive Sleep Apnea is advised. Abodulaye Bauer Jr., MD, | | | FAASMMedical DirectorCornerstone Specialty Hospital Sleep Disorders | | | [place], [place] | | | It Training Specialist of [place], [place] | | |elevated at 14.1, and [...] | | | |Abdoulaye Bauer Jr., MD, [facility] | | |Salon/Spa Manager | | |[facility] | | |[facility] | | |[place] | | |Clinical junior accounting clerk | | |[facility] | | |[place], [place] | | + + + + + | Procedure Note | + + | Abdoulaye Bauer Jr., MD - 06/20/2019 3:00 PM [facility] | | Disorders [place], [place] [address]Kpirblqtuq, | | Multiparameter, Sleep Apnea Test (WATCH-PAT) for Mian Marquez performed on June 19 | | 2019.Identifying Information: Mian Marquez is a 69 y.o. male who is referred for | | unattended, multi-parameter, sleep apnea test because of probable Obstructive Sleep | | Apnea.Technical Information: The study was performed using the WatchPat technology | | (Food52). This monitors referral arterial tone (PAT) signal [...] Sleep Apnea is advised.Abdoulaye Bauer Jr., MD, [facility]ENTERMedical | | DirectorCorner[facility] Sleep Disorders [facility] | | [facility] It Training Specialist of MedicineCentral [facility] Medical Center | | [place], [place] | |Abdoulaye Bauer Jr., MD, [facility] | |Salon/Spa Manager | |[facility] Sleep Disorders [place] | |[facility] | |[place], [place] | |Clinical junior accounting clerk | |[facility] | |[place], [place] | + + documented in this encounter Visit Diagnoses + + | Diagnosis | + + | CHRISTEN (obstructive sleep apnea) Obstructive sleep apnea (adult) (pediatric) | + + documented in this encounter"
--- OUTSIDE RECORDS SUMMARY | ~2019-08-23 | XMS | Encounter Summary ---
Demographics + + + | Address | [address] | | | [place] [address] | + + + | Home Phone | | + + + | Preferred Language | Unknown | + + + | Marital Status | Single | + + + | Orthodox Affiliation | RESTORATIONIST | + + + | Race | White | + + + | Ethnic Group | Not or | + + + Author + + + | Author | [facility] | + + + | Organization | [facility] | + + + | Address | Unknown | + + + | Phone | Unavailable | + + + Support + + +---------+ + | Name | Relationship | Address | Phone | + + +---------+ + | Theodore Marquez | ECON | Unknown | | + + +---------+ + Care Team Providers + +------+ + | Care Automatic Bow Maker Machine Tender Name | Role | Phone [...] [facility] [place] | | | [facility] | [address] | | | | | and [place], | [phone] | | | | | | | | | | | Floor [place], [place] | | | | | | [address] | | | | | | [phone] | | | +--------+ + + + [...] | | | | | | [place] [address] | | +--------+ + + + + documented as of this encounter Visit Diagnoses Not on filedocumented in this encounter"
--- OUTSIDE RECORDS SUMMARY | ~2019-08-23 | XMS | Encounter Summary ---
Demographics + + + | Address | [address] | | | [place] [address] | + + + | Home Phone | | + + + | Preferred Language | Unknown | + + + | Marital Status | Single | + + + | Restorationism Affiliation | LUTHERAN | + + + | Race | White | + + + | Ethnic Group | Not or | + + + Author + + + | Author | [facility] | + + + | Organization | [facility] | + + + | Address | Unknown | + + + | Phone | Unavailable | + + + Support + + +---------+ + | Name | Relationship | Address | Phone | + + +---------+ + | Theodore Marquez | ECON | Unknown | | + + +---------+ + Care Team Providers + +------+ + | Care Street Light Servicer Supervisor Name | Role | Phone | + +------+ + | Trevin Delacruz MD | PCP | | + +------+ + Encounter Details +--------+ + + + + | Date | Type | Department | Care Team | Description | +--------+ + + + + | 06/02/ | Telephone | Digestive Health | Emilie Sanchez, | | | 2014 | | [place] at [facility] [address] | | | | | | [address]li [address] | | | | | | Mailcode: [place] | | | | | | [facility] Health and | | | | | | [facility] 2 | | | | | | [place], [place] | | | | | | [address] | | | | | | [phone] | | | +--------+ + + + [...] | | | | | | [place] [address] | | +--------+ + + + + documented as of this encounter Visit Diagnoses Not on filedocumented in this encounter"
--- OUTSIDE RECORDS SUMMARY | ~2019-08-23 | XMS | Encounter Summary ---
Demographics + + + | Address | [address] | | | [place] [address] | + + + | Home Phone | | + + + | Preferred Language | Unknown | + + + | Marital Status | Single | + + + | Episcopal Affiliation | SPIRITISM | + + + [...] Team Providers + +------+ + | Care Biology Adjunct Instructor Name | Role | Phone | [...] + + | 05/16/ | Hospital | [facility] | Onc, Gen [address] | | | 2020 | Encounter | Clinics at S | [address] [place], | | | | | [facility] | [place] [address] | | | | | for Health and | | | | | | Healing [address] | | | | | | [place], [place] | | | | | | [address] | | | | | | [phone] | | | +--------+ + + + [...] | | | | | | [place] [address] | | +--------+ + + + + [...] | if patient does not have a driver's education instructor | | | | | | + [...]
--- OUTSIDE RECORDS SUMMARY | ~2019-08-23 | XMS | Encounter Summary ---
Demographics + + + | Address | [address] | | | [place] [address] | + + + | Home Phone | | + + + | Preferred Language | Unknown | + + + | Marital Status | Single | + + + | Anglican Affiliation | PENTECOSTAL | + + + [...] Team Providers + +------+ + | Care Speech Teacher Name | Role | Phone | [...] as of this encounter Progress Notes Interface, Aircraft Sheet Metal Mechanic In - 09/14/2005 1:09 AM PDTCLINIC DATE: 12/17/2002 [facility]IVE [facility] TELEPHONE CONVERSATION SUBJECTIVE: Mr. Marquez contacted [...] these results. Jacqueline Silva. / VICTOR M [id number] / [id number] / [id number] / Tdocumented in this encounter Plan of Treatment +--------+ + + + + | Date | Type | Specialty | Care Team | Description | +--------+ + + + + | 10/31/ | Appointment | Hematology & | Onc, Gen [address] | | | 2020 | | Oncology | [place], | | | | | | [place] [address] | | +--------+ + + + + documented as of this encounter Visit Diagnoses Not on filedocumented in this encounter"
--- OUTSIDE RECORDS SUMMARY | ~2019-08-23 | XMS | Encounter Summary ---
Demographics + + + | Address | [address] | | | [place] [address] | + + + | Home Phone | | + + + | Preferred Language | Unknown | + + + | Marital Status | | + + + | Denominational Affiliation | Unknown | + + + | Race | Unknown | + + + | Ethnic Group | Unknown | + + + Author + + + | Author | [facility] | | | and Jadenana | + + + | Organization | [facility] | | [...] | | | | | [place] [address] | | + + + + + Care Team Providers + +------+ + | Care Evp Chief Exploration Officer Name | Role | Phone | [...] + + | 02/20/ | Telephone | [facility] | Lexie Cagle | Lab Results | | 2019 | | MEDICINE [address] | [address] | | | | | Street [place] | [facility] | | | | | [place] [address] | [place] [address] | | | | | [phone] | [phone] | | | | | | | [...] 2020 | Visit | | [address] | | | | | | [place] | | | | | | [address] | | | | | | | | +--------+---------+ + + + documented as of this encounter Visit Diagnoses Not on filedocumented in this encounter"
--- OUTSIDE RECORDS SUMMARY | ~2019-08-23 | XMS | Encounter Summary ---
Demographics + + + | Address | [address] | | | [place] [address] | + + + | Home Phone | | + + + | Preferred Language | Unknown | + + + | Marital Status | Single | + + + | Zoroastrian Affiliation | EPISCOPAL | + + + | Race | White | + + + | Ethnic Group | Not or | + + + Author + + + | Author | [facility] | + + + | Organization | [facility] | + + + | Address | Unknown | + + + | Phone | Unavailable | + + + Support + + +---------+ + | Name | Relationship | Address | Phone | + + +---------+ + | Theodore Marquez | ECON | Unknown | | + + +---------+ + Care Team Providers + +------+ + | Care Doctor'S Assistant Name | Role | Phone | + +------+ + | Jose Hameed MD | PCP | | + +------+ + Encounter Details +--------+ + + + + | Date | Type | Department | Care Team | Description | +--------+ + + + + | 10/28/ | Telephone | Neurology at | Christian Maldonado MD | | | 2017 | | [place] for [facility] & | [address] | | | | | Healing [address] | [address] [place], | | | | | [place] Mailcode: CH8C | [place] [address] | | | | | [facility] | [phone] | | | | | and Healing, | | | | | | | | | | | | [place], [place] | | | | | | [address] | | | | | | [phone] | | | +--------+ + + + [...] | | | | | | [place] [address] | | +--------+ + + + + documented as of this encounter Visit Diagnoses Not on filedocumented in this encounter"
--- OUTSIDE RECORDS SUMMARY | ~2019-08-23 | XMS | Encounter Summary ---
Demographics + + + | Address | [address] | | | [place] [address] | + + + | Home Phone | | + + + | Preferred Language | Unknown | + + + | Marital Status | Single | + + + | Orthodox Affiliation | VOODOO | + + + [...] Team Providers + +------+ + | Care Bumper Operator Name | Role | Phone | [...] | | | | | | [place] [address] | | +--------+ + + + + documented as of this encounter Visit Diagnoses Not on filedocumented in this encounter"
--- OUTSIDE RECORDS SUMMARY | ~2019-08-23 | XMS | Encounter Summary ---
Demographics + + + | Address | [address] | | | [place] [address] | + + + | Home Phone | | + + + | Preferred Language | Unknown | + + + | Marital Status | | + + + | Zoroastrian Affiliation | Unknown | + + + | Race | Unknown | + + + | Ethnic Group | Unknown | + + + Author + + + | Author | [facility] | | | and Jadenana | + + + | Organization | [facility] | [...] | | | | | [place] [address] | | + + + + + Care Team Providers + +------+ + | Care Neonatal Icu Coordinator Name | Role | Phone | [...] S/P lumbar | Rekha | [address] | | | | | fusion | FLOR[place] Carranza | [place], | | | | | Chronic low | [address] | [place] | | | | | back pain | [place] | [address] | | | | | without | STREET | Phone: | | | | | sciatica, | [address] | [phone] | | | | | unspecified | [place], | Fax: | | | | | back pain | [place] [address] | [phone] | | | | | laterality | Phone: | | | | | | Multiple | [phone] | | | | | | sclerosis | Fax: | | | | | | ([facility]) | [phone] | | | | | | Procedures [...] | | | | [place], | [place] | | | | | | [place] [address] | [address] Phone: | | | | | | Phone: | [phone] | | | | | | [phone] | Fax: | | | | | | Fax: | [phone] | | | | | | [phone] | | + +--------+ + + + + Encounter Details +--------+---------+ + + + | Date | Type | Department | Care Team | Description | +--------+---------+ + + + | 04/12/ | Office | [facility] [place] | Rekha Conte | S/P lumbar fusion | | 2020 | Visit | PHYSIATRY [address] | [address] | (Primary Dx); | | | | [address] | [employer] [facility] | Chronic low back | | | | [place] | [address] [place] | pain without | | | | [address] | [address] | sciatica, | | | | [phone] | | unspecified back | | | | | | pain laterality; | | | | | | Multiple sclerosis | | | | | | ([facility]); Myalgia | +--------+---------+ + + + [...] an MRI request to be done at [facility] of your low back. Results w [...] puncture (pneumothorax) Nerve damage Date Last Reviewed: 06/25/201719990684-0241 [employer]. [address] [place] [address]. All righ ts reserved. This information is not intended as a substitute for professional medical care. Always follow your healthcare professional's instructions. documented in this encounter Progress Notes Rekha Conte PA-C - 04/12/2019 10:00 AM PSTFormatting of this note might be diffe rent from the original. Satnam Conte PA-C [address] [facility] [address] [place] [address] PHONE: FAX: PHYSIATRY HISTORY AND PHYSICAL EXAMINATION [...] was placed by Dr. Diogo santiago in [place]. He reports that his SCS is MRI [...] catheter placement; Surgeon: Michael Fernandes MD; Location: [facility] MA[facility] OR CHOLECYCTOSTOMY 1978 COLONOSCOPY 2017 Normal, Dr Arroyo CYSTOSCOPY N/A 04/19/2018 Procedure: Cystoscopy, bladder Botox, injection of urethral bulking agent; Surgeon: Gina Fernandes MD; Location: [facility] MA[facility] OR GASTRIC BYPASS SURGERY 2001 2 x HAND SURGERY 07/2018 KNEE SURGERY Bilateral LAP BAND 2010 LUMBAR FUSION 2011 URETEROSCOPY Right 01/03/2019 Procedure: CYSTOSCOPY Right URETEROSCOPY W/ LASER lithotripsy and stent; Surgeon: Michael Fernandes MD; Location: [facility] MA[facility] OR urinary stimulator 2005 VARICOSE VEIN [...] has no apparent deficits with short or middle or intermediate school principal memory. Cranial nerves 2-12 appear grossly intact. [...] has no apparent deficits with short or middle or intermediate school principal memory. CRANIAL NERVES: II: Acuity is intact. 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 Unfortunately Mian adler continues to have significant [...] today with the majority of time spent senior counsel commercial ling the patient on his diagnosis, options [...] 2019 | Visit | | [address] | | | | | | [place] | | | | | | [address] | | | | | | | [...] sclerosis | | | | | | ([facility]) | | + +---------+--------+ + + [...]
--- OUTSIDE RECORDS SUMMARY | ~2019-08-23 | XMS | Encounter Summary ---
Demographics + + + | Address | [address] | | | [place] [address] | + + + | Home Phone | | + + + | Preferred Language | Unknown | + + + | Marital Status | Single | + + + | Taoism Affiliation | EPISCOPALIAN | + + + [...] Team Providers + +------+ + | Care Event Coordinator Marketing And Sales Name | Role | Phone | + +------+ + PCP | Unavailable | + +------+ + Encounter Details +--------+ + + + + | Date | Type | Department | Care Team | Description | +--------+ + + + + | 09/05/ | Results | | Colin Posada | | | 2002 | Only | | General Surgery | | | | | | [address] | | | | | | [place], | | | | | | [place] [address] | | +--------+ + + + + [...] | | | | | | [place] [address] | | +--------+ + + + + documented as of this encounter Procedures + +--------+ + + + | Procedure Name | Priori | Date/Time | Associated Diagnosis | Comments | | | ty | | | | + +--------+ + + + | COMPLETE METABOLIC | Routin | 09/05/2002 | | Results for this | | SET | e | 1:36 PM | | procedure are in the | | (NA,K,CL,CO2,BUN,CRE | | PDT | | results section. | | AT,GLUC,CA,AST,ALT,B | | | | | | LILY TOTAL,ALK | | | | | | PHOS,ALB,PROT TOTAL) | | | | | + +--------+ + + + | CBC ONLY | Routin | 09/05/2002 | | Results for this | | | e | 1:36 PM | | procedure are in the | | | | PDT | | results section. | + +--------+ + + + documented in this encounter Results CBC ONLY WITH PLATELET (09/05/2002 1:36 PM PDT) + + + + + + | Component | Value | Ref Range | Performed | Pathologist | | | | | At | Signature | + + + + + + | WHITE CELL | 7.0 | 4.4 - 11.0 K/cu | [facility] | | | COUNT | | mm | DEPARTMENT | | | | | | OF | | | | | | PATHOLOGY | | + + + + + + | RED CELL | 4.26 | 4.20 - 5.90 | [facility] | | | COUNT | | M/cu mm | DEPARTMENT | | | | | | OF | | | | | | PATHOLOGY | | + + + + + + | HEMOGLOBIN | 13.9 | 13.0 - 17.5 | [facility] | | | | | g/dL | DEPARTMENT | | | | | | OF | | | | | | PATHOLOGY | | + + + + + + | HEMATOCRIT | 39.9 | 38.0 - 50.4 % | [facility] | | | | | | DEPARTMENT | | | | | | OF | | | | | | PATHOLOGY | | + + + + + + | MCV | 93.6 | 80.0 - 96.0 fL | [facility] | | | | | | DEPARTMENT | | | | | | OF | | | | | | PATHOLOGY | | + + + + + + | MCH | 32.5 (H) | 28.5 - 32.3 pg | [facility] | | | | | | DEPARTMENT | | | | | | OF | | | | | | PATHOLOGY | | + + + + + + | MCHC | 34.7 | 33.4 - 35.5 | [facility] | | | | | g/dL | DEPARTMENT | | | | | | OF | | | | | | PATHOLOGY | | + + + + + + | RDW | 14.6 | 11.5 - 15.0 % | [facility] | | | | | | DEPARTMENT | | | | | | OF | | | | | | PATHOLOGY | | + + + + + + | PLATELET | 235 | K/cu mm | [facility] | | | COUNT | | | DEPARTMENT | | | | | | OF | | | | | | PATHOLOGY | | + + + + + + | MPV | 8.5 | 7.4 - 10.4 fL | [facility] [...] + | [facility] DEPART[facility] | [address] | [place] [address] | | | PATHOLOGY | [address] | | | + + + + + | [facility] DE[facility] | [address] | [place] [address] | | | PATHOLOGY | [address] | | | + + + + + COMP METABOLIC SET (09/05/2002 1:36 PM PDT) + +---------+ + + + | Component | Value | Ref Range | Performed | Pathologist | | | | | At | Signature | + +---------+ + + + | GLUCOSE, | 121 (H) | 65 - 110 mg/dL | [facility] | | | PLASMA | | | DEPARTMENT | | | (LAB) | | | OF | | | | | | PATHOLOGY | | + +---------+ + + + | BUN, PLASMA | 15 | 6 - 20 mg/dL | [facility] | | | (LAB) | | | DEPARTMENT | | | | | | OF | | | | | | PATHOLOGY | | + +---------+ + + + | CREATININE | 0.9 | 0.7 - 1.3 mg/dL | [facility] | | | PLASMA | | | DEPARTMENT | | | (LAB) | | | OF | | | | | | PATHOLOGY | | + +---------+ + + + | TOTAL | 6.7 | 6.1 - 7.9 g/dL | [facility] | | | PROTEIN, | | | DEPARTMENT | | | PLASMA | | | OF | | | (LAB) | | | PATHOLOGY | | + +---------+ + + + | ALBUMIN, | 3.9 | 3.5 - 4.7 g/dL | [facility] | | | PLASMA | | | DEPARTMENT | | | (LAB) | | | OF | | | | | | PATHOLOGY | | + +---------+ + + + | CALCIUM, | 9.2 | 8.5 - 10.5 | [facility] | | | PLASMA | | mg/dL | DEPARTMENT | | | (LAB) | | | OF | | | | | | PATHOLOGY | | + +---------+ + + + | BILIRUBIN | 1.1 | 0.3 - 1.2 mg/dL | [facility] | | | TOTAL | | | DEPARTMENT | | | | | | OF | | | | | | PATHOLOGY | | + +---------+ + + + | ALK PHOS | 69 | 53 - 128 U/L | [facility] | | | | | | DEPARTMENT | | | | | | OF | | | | | | PATHOLOGY | | + +---------+ + + + | AST(SGOT) | 19 | 15 - 41 U/L | [facility] | | | | | | DEPARTMENT | | | | | | OF | | | | | | PATHOLOGY | | + +---------+ + + + | SODIUM, | 139 | 136 - 145 | [facility] | | | PLASMA | | mmol/L | DEPARTMENT | | | (LAB) | | | OF | | | | | | PATHOLOGY | | + +---------+ + + + | POTASSIUM, | 3.9 | 3.5 - 5.1 | [facility] | | | PLASMA | | mmol/L | DEPARTMENT | | | (LAB) | | | OF | | | | | | PATHOLOGY | | + +---------+ + + + | CHLORIDE, | 97 (L) | 98 - 107 mmol/L | [facility] | | | PLASMA | | | DEPARTMENT | | | (LAB) | | | OF | | | | | | PATHOLOGY | | + +---------+ + + + | TOTAL CO2, | 30 (H) | 23 - 29 mmol/L | [facility] | | | PLASMA | | | DEPARTMENT | | | (LAB) | | | OF | | | | | | PATHOLOGY | | + +---------+ + + + | ALT (SGPT) | 24 | 13 - 48 U/L | [facility] | | | | | | DEPARTMENT | | | | | | OF | | | | | | PATHOLOGY | | + +---------+ + + + + + | Specimen | + + | | + + + + + + + | Performing | Address | City/State/Zipcode | Phone Number | | Organization | | | | + + + + + | [facility] | [address] | [place] [address] | | | PATHOLOGY | [address] | | | + + + + + | [facility] | [address] | [place] [address] | | | PATHOLOGY | [address] | | | + + + + + documented in this encounter Visit Diagnoses Not on filedocumented in this encounter"
--- OUTSIDE RECORDS SUMMARY | ~2019-08-23 | XMS | Encounter Summary ---
Demographics + + + | Address | [address] | | | [place] [address] | + + + | Home Phone | | + + + | Preferred Language | Unknown | + + + | Marital Status | Single | + + + | Episcopalian Affiliation | CAODAISM | + + + [...] + +------+ + | Care Nuclear Equipment Sales Engineer Name | Role | Phone | + +------+ + | Jose Hameed MD | PCP | | + +------+ + Encounter Details +--------+ + + + + | Date | Type | Department | Care Team | Description | +--------+ + + + + | 10/05/ | Telephone | Digestive Health | Ivonne Menezes, | | | 2016 | | [place] at [facility] [address] | PAPER BAG MAKING MACHINIST [address] | | | | | [address] | , [facility] [address] | | | | | Mailcode: Center | [place], [place] | | | | | [facility] and | [address] | | | | | [facility] [address] | [phone] | | | | | [place], [place] | | | | | | [address] | | | | | | [phone] | | | +--------+ + + + [...] | | | | | | [place] [address] | | +--------+ + + + + documented as of this encounter Visit Diagnoses Not on filedocumented in this encounter"
--- OUTSIDE RECORDS SUMMARY | ~2019-08-23 | XMS | Encounter Summary ---
Demographics + + + | Address | [address] | | | [place] [address] | + + + | Home Phone | | + + + | Preferred Language | Unknown | + + + | Marital Status | Single | + + + | Spiritism Affiliation | MORMONISM | + + + [...] Team Providers + +------+ + | Care Training Technician Name | Role | Phone | [...] | | | | | sclerosis | [address] | | | | | | ([facility]) | Nate | | | | | | Mounika | [address] | | | | | | of [facility] | [place], [place] | | | | | | disturbance | [address] | | | | | | Procedures | Phone: | | | | | | MRI BRAIN | [phone] | | | | | | MULTIPLE | Fax: | | | | | | SCLEROSIS | [phone] | | | | | | WWO [...] | | | | | sclerosis | [address] | | | | | | ([facility]) | Nate | | | | | | Mounika | [address] | | | | | | of memory | [place], [place] | | | | | | disturbance | [address] | | | | | | Procedures | Phone: | | | | | | MRI BRAIN | [phone] | | | | | | MULTIPLE | Fax: | | | | | | SCLEROSIS | [phone] | | | | | | WWO CONTRAST | | | +--------+--------+ + + + + Encounter Details +--------+ + + + + | Date | Type | Department | Care Team | Description | +--------+ + + + + | 12/31/ | Hospital | Diagnostic Imaging | | Canceled (Provider | | 2016 | Encounter | Services at [facility] | | Request) | | | | [address] | | | | | | [place] | | | | | | [facility] | | | | | | [place], [place] | | | | | | [address] | | | | | | [phone] | | | +--------+ + + + [...] | | | | | | [place] [address] | | +--------+ + + + + [...] e | 8:36 AM | ([facility]) Complaints | procedure are in the [...] of | | | | | | [id number] is | | | | | | evident. There is no | | | | | | abnormal intracranial | | | | | | enhancement. | | | | | | [id number] within | | | | | | [...]
--- OUTSIDE RECORDS SUMMARY | ~2019-08-23 | XMS | Encounter Summary ---
Demographics + + + | Address | [address] | | | [place] [address] | + + + | Home Phone [...] Author | [facility] | | | and Jadenana | + + + | Organization | [facility] | | | and Jadenana [...] | | | | | [place] [address] | | + + + + + Care Team Providers + +------+ + | Care Oyster Fisherman Name | Role | Phone | + +------+ + | Lexie Cagle | PCP | | | BOW MAKER GIFT WRAPPING | | | + +------+ + Reason for Visit + + + | Reason | Comments | + + + | Medication Refill | | + + + Encounter Details +--------+--------+ + + + | Date | Type | Department | Care Team | Description | +--------+--------+ + + + | 02/07/ | Refill | [facility] [place] [facility] | Lexie Cagle | Medication Refill | | 2019 | | [facility] [address] | [address] | | | | | [facility] | [facility] | | | | | [place] [address] | [place] [address] | | | | | [phone] | [phone] | | | | | | | [...] 2019 | Visit | | [address] | | | | | | [place] | | | | | | [address] | | | | | | | | +--------+---------+ + + + documented as of this encounter Visit Diagnoses + + | Diagnosis | + + | RLS (restless legs syndrome) Restless legs syndrome (RLS) | + + documented in this encounter"
--- OUTSIDE RECORDS SUMMARY | ~2019-08-23 | XMS | Encounter Summary ---
Demographics + + + | Address | [address] | | | [place] [address] | + + + | Home Phone | | + + + | Preferred Language | Unknown | + + + | Marital Status | | + + + | Moravian Affiliation | Unknown | + + + | Race | Unknown | + + + | Ethnic Group | Unknown | + + + Author + + + | Author | [facility] | | | and Jadenana | + + + | Organization | [facility] | | | and Jadenana [...] | | | | | [place] [address] | | + + + + + Care Team Providers + +------+ + | Care Rigging Up Worker Name | Role | Phone | [...] PRECIOUS EM | | | | | [address] | [address] | | | | | [phone] | | | +--------+ + + + [...] [place] | | | | | | [address] | | | | | | | | +--------+---------+ + + + documented as of this encounter Visit Diagnoses Not on filedocumented in this encounter"
--- OUTSIDE RECORDS SUMMARY | ~2019-08-23 | XMS | Encounter Summary ---
Demographics + + + | Address | [address] | | | [place] [address] | + + + | Home Phone | | + + + | Preferred Language | Unknown | + + + | Marital Status | | + + + | Islam Affiliation | Unknown | + + + | Race | Unknown | + + + | Ethnic Group | Unknown | + + + Author + + + | Author | [facility] | | | and Jadenana | + + + | Organization | [facility] | | | and Jadenana [...] | | | | | [place] [address] | | + + + + + Care Team Providers + +------+ + | Care Anode Machine Operator Name | Role | Phone | + +------+ + | Lexie Cagle | PCP | | | AUTOS DISASSEMBLER | | | + +------+ + Reason [...] | | | | Procedures | | [address] Phone: | | | | | [place] | | [phone] | | | | | CYSTO/URETER | | Fax: | | | | | O | | [phone] | | | | | W/LITHOTRIPS | [...] | +--------+ + + + + | 01/03/ | Hospital | [facility] | Michael Fernandes | Right | | 2019 | Encounter | MED CTR OR INTRA OP | MD Yaw [address] | nephrolithiasis; | | | | [address] | [address] [place] | Right flank pain | | | | [place], [place] | [address] | | | | | [address] | | | | | | [phone] | | | +--------+ + + + [...] You can't be awakened Date Last Reviewed: 01/12/201619993454-7557 [employer]. [address] [place] [address], [place] [address]. All righ ts reserved. This information is [...] [place] | | | | | | [id number] | | | | | | | [...] | | | | | | [facility] | | | | | | CORE [...] + + | RENETTA DECKER | [address] [address] [address] | [place] [address] | [phone] | | MARIELA JONES | | | [...] pain, unspecified site | + + | Paroxysmal atrial fibrillation (HCC) Atrial fibrillation | + + | Osteoporosis Osteoporosis, unspecified | + + | RLS (restless legs [...] day), First | | | dose on [facility] 01/03/19 at 1400, | | | Start 8 hours after pre-op dose., | | | Post-op/Phase II | | + +---+ | | | + +---+ | albuterol 2.5 mg/3 mL nebulizer | | | solution 2.5 mg 2.5 mg, | | | Nebulization, ONCE PRN, Wheezing, | | | Starting [facility] 01/03/19 at 0859, | | | For [...] ONCE PRN, | | | Wheezing, Starting [facility] 01/03/19 | | | at 0655, For [...] | | | Starting [facility] 01/03/19 at 0655, | | | Repeat [...] | | | | | | longer, [id number]-[id number] use of | | | | | [...] DBP > 100, | | | Starting [facility] 01/03/19 at 0859, | | | Hold if HR > 100. Maximum total | | | dose 40 mg. Use labetalol first | | | if available., Recovery/Phase I | | + +---+ | | | + +---+ | HYDROmorphone (DILAUDID) | | | injection 0.2-0.4 mg 0.2-0.4 mg, | | | Intravenous, EVERY 1 HOUR PRN, | | | Pain, Starting [facility] 01/03/19 at | | | 1028, If [...] | | | | | | | lzqylv-gzn-domcq use of at least | | | [...] | | | First dose on Jemma 01/03/19 at | | | 1515, If [...]
--- OUTSIDE RECORDS SUMMARY | ~2019-08-23 | XMS | Encounter Summary ---
Demographics + + + | Address | [address] | | | [place] [address] | + + + | Home Phone [...] | Author | [facility] | | | and Jadenana | + + + | Organization | [facility] | [...] | | | | | [place] [address] | | + + + + + Care Team Providers + +------+ + | Care Ultrasonic Seaming Machine Operator Name | Role | Phone | + +------+ + | Lexie Cagle | PCP | | | PACKAGING MANAGER | | | + +------+ + Reason for Visit +--------+ + | Reason | Comments | +--------+ + | Other | Question about taking chapa catheter out | +--------+ + Encounter Details +--------+ + + + + | Date | Type | Department | Care Team | Description | +--------+ + + + + | 09/14/ | Telephone | [facility] | Michael Fernandes | Other (Question | | 2019 | | [address] | MD Yaw [address] | about taking chapa | | | | PRECIOUS [place] | PRECIOUS EM | catheter out) | | | | [address] | [address] | | | | | [phone] | | | +--------+ + + + [...]
--- OUTSIDE RECORDS SUMMARY | ~2019-08-23 | XMS | Encounter Summary ---
Demographics + + + | Address | [address] | | | [place] [address] | + + + | Home Phone [...] Author + + + | Author | [facility] | + + + | Organization | [facility] | + + + | Address | Unknown | + + + | Phone | Unavailable | + + + Support + + +---------+ + | Name | Relationship | Address | Phone | + + +---------+ + | Theodore Marquez | ECON | Unknown | | + + +---------+ + Care Team Providers + +------+ + | Care Senior Data Scientist Name | Role | Phone | + +------+ + | Jose Hameed MD | PCP | | + +------+ + Reason for Visit + + + | Reason | Comments | + + + | Lab findings, | MRI | | teaching, guidance, | | | and counseling | | + + + Encounter Details +--------+ + + + + | Date | Type | Department | Care Team | Description | +--------+ + + + + | 01/26/ | Telephone | Neurology at | Christian Maldonado MD | Lab findings, | | 2018 | | [facility] & | [address] | teaching, guidance, | | | | Healing [address] | Eduarda James [place], | and counseling (MRI) | | | | Nanette Mailcode: CH8C | [place] [address] | | | | | [facility] | [phone] | | | | | and Healing, | | | | | | [facility] | | | | | | [place], [place] | | | | | | [address] | | | | | | [phone] | | | +--------+ + + + [...] | | | | | | [place] [address] | | +--------+ + + + + documented as of this encounter Visit Diagnoses Not on filedocumented in this encounter"
--- OUTSIDE RECORDS SUMMARY | ~2019-08-23 | XMS | Encounter Summary ---
Demographics + + + | Address | [address] | | | [place] [address] | + + + | Home Phone | | + + + | Preferred Language | Unknown | + + + | Marital Status | | + + + | Sikhism Affiliation | Unknown | + + + | Race | Unknown | + + + | Ethnic Group | Unknown | + + + Author + + + | Author | [facility] | | | and Jadenana | + + + | Organization | [facility] [...] | | | | | [place] [address] | | + + + + + Care Team Providers + +------+ + | Care Operator Weapon Locating Radar Name | Role | Phone | + +------+ + | No Physician | PCP | Unavailable | + +------+ + Reason for Visit + + + | Reason | Comments | + + + | New Patient | nephrolithiasis and recurrent urinary tract infection | + + + Evaluate & Treat (Routine) +--------+--------+ + + + + | Status | Reason | Specialty | Diagnoses / | Referred By | Referred To | | | | | Procedures | Contact | Contact | +--------+--------+ + + + + | Closed | | Urology | Diagnoses | Dianh, | Dom, | | | | | Kidney | Francisco J Carvalho MD | Michael Tidwell, | | | | | stone Acute | [address] | [address] [place] [address] | | | | | cystitis | Cece James | [place]IE [place] | | | | | Recurrent | [address] | [place] | | | | | UTI NEW/ | [place] | [address] Phone: | | | | | KIDNEY | [address] | [phone] | | | | | STONE/ ACUTE | Phone: | Fax: | | | | | CYSTITIS/ | [phone] | [phone] | | | | | RECURRENT | Fax: | | | | | | UTI/ JANOFF | [phone] | | | | | | Procedures | | | | | | | NEW PATIENT | | | +--------+--------+ + + + + Encounter Details +--------+---------+ + + + | Date | Type | Department | Care Team | Description | +--------+---------+ + + + | 04/03/ | Office | [facility] | Michael Fernandes | Neurogenic bladder | | 2019 | Visit | [address] | MD Yaw [address] | (Primary Dx); | | | | [place] | [place] | Intrinsic sphincter | | | | [address] | [id number] | deficiency; | | | | [phone] | | Hematuria, | | | | | | unspecified type; | | | | | | Pyuria; Detrusor | | | | | | instability | +--------+---------+ + + + Social History [...] + + + | Blood Pressure | 148/80 | 04/03/2018 2:58 PM | | | | | PST | | + + + + + | Pulse | 72 | 04/03/2018 2:58 PM | | | | | PST | | + + + + + | Temperature | - | - | | + + + + + | Respiratory Rate | 16 | 04/03/2018 2:58 PM | | | | | PST | | + + + + + | Oxygen Saturation | - | - | | + + + + + | Inhaled Oxygen | - | - | | | Concentration | | | | + + + + + | Weight | 90.1 kg (198 lb 10.2 | 04/03/2018 2:58 PM | | | | oz) | PST | | + + + + + | Height | 177.8 cm (5' 10") | 04/03/2018 2:58 PM | | | | | PST | | + + + + + | Body Mass Index | 28.5 | 04/03/2018 2:58 PM | | | | | PST | | + + + + + documented in this encounter Patient Instructions Patient Instructions Michael Fernandes MD - 04/03/2018 3:15 PM PSTIleal conduit Right colon pouch Preoperative Instructions Your surgery with Dr. Fernandes has been scheduled for April 19, 2017 at 2:[address] [facility]. Please report to the [facility] Procedure [facility] no later than 1:15 PM. REMEMBER: NOTHING TO EAT OR DRINK AFTER MIDNIGHT April 18, 2017. Take all of your usual medications with a sip of water. NO ASPIRIN OR ASPIRIN PRODUCTS, NO FISH OIL OR VITAMIN E FOR ONE WEEK PRIOR TO SURGERY. Ty lenol (acetaminophen) and ibuprofen is OK. You will need someone to drive you home after surgery. Call us at [phone] with any questions. [x] Pain management booklet provided to patient. documented in this encounter Progress Notes Michael Fernandes MD - 04/03/2018 3:15 PM PSTFormatting of this note might be differ ent from the original. Chief Complaint Patient presents with New Patient nephrolithiasis and recurrent urinary tract infection HPI Mian Marquez is a 68 y.o. male patient of No Physician on file here today for an evaluation for nephrolithiasis and recurrent urinary tract infection. MS-diagnosed in 1997, symptoms have been relatively stable with the exception of the bladde r History of neurogenic bladder detrusor instability with impaired contractility ISD Dosed with bladder botox 4-5 months ago, received 300 units Performs CIC 8-12 times per day Reports leakage with bowel movement, bending over coughing Recurrent UTI's Symptoms of UTI: foul smelling urine Goes through 2 depends per day, also wakes up wet Does not have to perform bowel regiment History of morbid obesity, s/p gastric bypass and lap band surgery Also takes oxybutynin 15mg daily Overall incontinence has been worsening over the last 3 years. Nephrolithiasis, has had ESWL in the 90's Currently has 1cm stone in the lower pole of the right kidney Notes were reviewed from Dr. Nix Patient with a history of MS and neurogenic bladder characterized by detrusor instability w ith impaired contractility. Patient has had extremely large doses of bladder Botox and cont inues to have urge incontinence. 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 Assessment Mian was seen today for new patient. Diagnoses and all orders for this visit: Neurogenic bladder - Case request: Cystoscopy, bladder Botox, injection of urethral bulking agent; N/A Intrinsic sphincter deficiency - Case request: Cystoscopy, bladder Botox, injection of urethral bulking agent; N/A Hematuria, unspecified type - POCT Urinalysis Dipstick Automated - Urinalysis, Microscopic Only, with Culture if Indicated - Culture, Urine; Future Pyuria - POCT Urinalysis Dipstick Automated - Urinalysis, Microscopic Only, with Culture if Indicated - Culture, Urine; Future Detrusor instability Plan We'll plan for cystoscopy with bladder Botox. The patient's last dose of bladder Botox was 300 units. We'll plan for the same. We had a long discussion regarding treatment of the b ladder outlet. With intrinsic sphincter deficiency sphincter is unable to close adequately. This will lead to severe incontinence. This is demonstrated by the patient's history of l eakage with coughing as well as bending over. After bladder Botox is performed we'll admini ster urethral bulking agents. We discussed that this is only a temporary measure and will n eed multiple procedures in the future to maintain continence. Patient had questions regarding ileal conduit. This was discussed in detail with the patie felipe. He states he would not be happy with the bag outside the body. We then briefly discuss ed alternatives such as a right colon pouch. We discussed that these surgeries are associat ed with significant risk of morbidity and given his prior surgical history would likely need to be done at a tertiary referral center. Past Medical History Past Medical History: Diagnosis Date Hypertension Multiple sclerosis (HCC) Past Surgical History Past Surgical History: Procedure Laterality Date BACK SURGERY nerve stimulators GASTRIC BYPASS SURGERY 2001 2 x KNEE [...] No Known Allergies Medications: Current Outpatient Prescriptions: DULoxetine (CYMBALTA) [address] capsule, Take 30 mg by mouth Daily., Disp: , Rfl: OXYBUTYNIN CHLORIDE PO, Take 1 tablet by mouth. Patient taking 15 mg daily, Disp: , Rf l: traZODone (DESYREL) 100 mg tablet, Take 100 mg by mouth nightly., Disp: , Rfl: ROS Objective BP 148/80 | Pulse 72 | Resp 16 | Ht 1.778 m (5' 10") | Wt 90.1 kg (198 lb 10.2 oz) | B LA 28.50 kg/m General Appearance: Alert, cooperative, no distress, appears stated age Head: Normocephalic, without obvious abnormality, atraumatic Eyes: conjunctiva/corneas clear, EOM's intact Throat: Lips, mucosa, and tongue normal; no gross deformities, mmm Neck: Supple, symmetrical, no adenopathy Lungs: Regular, unlabored breathing MS No CVA tenderness, no spinal tenderness, no scoliosis present Normal external genitalia, no erythema, edema or rash Abdomen: Soft, non-tender, no masses Extremities: Extremities normal, atraumatic, no cyanosis, clubbing, or edema Pulses: Radial pulses 2+ and symmetric Skin: Warm and dry Lymph nodes: Cervical and supraclavicular nodes normal Neurologic: Gait normal, CN 2-12 grossly intact; Strength decreased in lower extremeties Data: REVIEW OF SYSTEMS: [] Marked All Negative Constitutional Symptoms: [] Fever [] Chills [] Headache [] Change in appetite [] Change in weight [] Change in energy [] Other: Neurological: [] Tremors [] Dizzy Spells [] Numbness/Tingling [] Seizures [] Other: Endocrine: [] Excessive thirst [] Too hot [] Too cold [x] Tired/Sluggish Gastrointestinal: [] Abdominal pain [] Nausea/Vomiting [] Indigestion/heartburn [] Change in stoo l size [] Change in stool shape [] Change in stool color [] Pain with swallowing [] Other: Cardiovascular: [] Chest Pain [] Rapid heart rate [] High blood pressure [] Other: Integumentary: [] Skin rash [] Boils [] Persistent itch [] Other: Musculoskeletal: [] Neck Pain [] Joint swelling/pain [x] Back pain [] Bone pain [] Other: Respiratory: [] Wheezing [] Frequent cough [] Shortness of breath [] Other: Hematologic/Lymphatic: [] Swollen glands [] Blood clotting issues [] Prior blood transfusions []Other: Psychologic: Are you generally satisfied with your life? no Do you feel severely depressed? yes Have you considered suicide? no Habits: Do you smoke? yes Results for orders placed or performed in visit on 04/03/18 Urinalysis, Microscopic Only, with Culture if Indicated Result Value Ref Range WBC UA 25-50 (A) 0 - 2 /HPF WBC CLUMPS UA Few (A) None Seen /HPF RBC UA 5-10 (A) 0 - 2 /HPF SQUAMOUS EPITHELIAL UA 15-25 (A) 0 - 2 /LPF BACTERIA UA 4+ (A) Negative /HPF BUDDING YEAST UA Few (A) Negative HYALINE CASTS UA 2-5 (A) 0 - 2 /LPF URINE COMMENT Urine Culture Set Up POCT Urinalysis Dipstick Automated Result Value Ref Range Color, UA, POC Yellow Yellow, Light Yellow Clarity, UA, POC Slightly Cloudy Glucose, UA, POC Negative Negative Bilirubin, UA, POC Negative Negative Ketones, UA, POC Negative Negative, 100 mg/dL Specific [place], UA, POC 1.015 1.001 - 1.030 Blood, UA, POC Small (A) Negative pH, UA, POC 5.0 5.0, 6.0, 7.0, 8.0, 5.5, 6.5, 7.5 Protein, UA, POC Negative Negative Urobilinogen, UA, POC 0.2 0.2, Negative, Normal, < 0.2 mg/dL, 1 mg/dL, < 0.2 E.U./dl, 1.0 E.U./dL, 0.2 mg/dL Nitrite, UA, POC Negative Negative Leukocyte Esterase, UA, POC Small (A) Negative Reducing Substances, Urine Ictotest Negative Remark No results found for: CREA No Physician on file's notes were reviewed in clinic today. No Follow-up on file.. This document was generated in part using voice recognition software. Frequent wrong word or sound-alike substitutions may have occurred due to the inherent limitations of the voice recognition software. Although I have attempted to edit the content, I have not thoroughly proofread this note, and audiovisual librarian errors are very likely to occur. CC: No Physician on file documented in this encounter Plan of Treatment +--------+---------+ + + + | Date | Type | Specialty | Care Team | Description | +--------+---------+ + + + | 11/12/ | Office | Sleep Medicine | Laith Sheffield PA | | | 2020 | Visit | | [address] | | | | | | [place] | | | | | | [id number] | | | | | | | | +--------+---------+ + + + documented as of this encounter Procedures + +--------+ + + + | Procedure Name | Priori | Date/Time | Associated Diagnosis | Comments | | | ty | | | | + +--------+ + + + | POCT URINALYSIS, | Routin | 04/03/2018 | Hematuria, | Results for this | | AUTO WITH CONF | e | 2:25 PM | unspecified type | procedure are in the | | | | PST | Pyuria | results section. | + +--------+ + + + | URINALYSIS, | Routin | 04/03/2018 | Hematuria, | Results for this | | MICROSCOPIC ONLY, | e | 2:24 PM | unspecified type | procedure are in the | | WITH CULTURE IF | | PST | Pyuria | results section. | | INDICATED | | | | | + +--------+ + + + | CULTURE, URINE | Routin | 04/03/2018 | Hematuria, | Results for this | | | e | 2:24 PM | unspecified type | procedure are in the | | | | PST | Pyuria | results section. | + +--------+ + + + documented in this encounter Results POCT Urinalysis Dipstick Automated (04/03/2018 2:25 PM PST) + + + + + + | Component | Value | Ref Range | Performed | Pathologist | | | | | At | Signature | + + + + + + | Color, UA, | Yellow | Yellow, Light | | | | [...] 1.001 - 1.030 | | | | [place], | | | | | | UA, POC | | | | | + + + + + + | Blood, UA, | Small (A) | Negative | | [...] + + + + | Nitrite, | Negative | Negative | | | [...] | Urine | + + Culture, Urine (04/03/2018 2:24 PM PST) + + + + + + | Component | Value | Ref Range | Performed | Pathologist | | | | | At | Signature | + + + + + + | Culture | >100,000 CFU/ml | | [facility] | | | | Escherichia coliComment: | | [facility] | | | | *INFECTION PREVENTION | | MEDICAL | | | | ALERT - ESBL* ESBLs | | CENTER - | | | | are enzymes that | | LABORATORY | | | | mediate resistance to | | | | | | extended-spectrum | | | | | | [...] + | [facility] | [address] | [place] | [phone] | | [facility] | | [address] | | | - LABORATORY | | | | + + + + + Urinalysis, Microscopic Only, with Culture if Indicated (04/03/2018 2:24 PM PST) + + + + + + | Component | Value | Ref Range | Performed | Pathologist | | | | | At | Signature | + + + + + + | White Blood | 25-50 (A) | 0 - 2 /HPF | [...] + + + | Red Blood | 5-10 (A) | 0 - 2 /HPF | [facility] | | | Cells, | | | [facility] | | | Urine | | | MEDICAL | | | | | | CENTER - | | | | | | LABORATORY | | + + + + + + | Squamous | 15-25 (A) | 0 - 2 /LPF | [...] + + + + + + | Budding | Few (A) | Negative | [facility] | | | Yeast, | | | [facility] | | | Urine | | | MEDICAL | | | | | | CENTER - | | | | | | LABORATORY | | + + + + + + | Hyaline | 2-5 (A) | 0 - 2 /LPF | [...] DECKER. | [address] | [place] | [phone] | | [facility] | | [address] | | | - LABORATORY | | | | + + + + + documented in this encounter Visit Diagnoses + + | Diagnosis | + + | Neurogenic bladder - Primary Neurogenic bladder, NOS | + + | Intrinsic sphincter deficiency Intrinsic (urethral) sphincter deficiency (ISD) | + + | Hematuria, unspecified type | + + | Pyuria Other nonspecific finding on examination of urine | + + | Detrusor instability Other functional disorder of bladder | + + documented in this encounter
--- OUTSIDE RECORDS SUMMARY | ~2019-08-23 | XMS | Encounter Summary ---
Demographics + + + | Address | [address] | | | [place] [address] | + + + | Home Phone | | + + + | Preferred Language | Unknown | + + + | Marital Status | | + + + | Pentecostal Affiliation | Unknown | + + + | Race | Unknown | + + + | Ethnic Group | Unknown | + + + Author + + + | Author | [facility] | | | and Jadenana | + + + | Organization | [facility] | | | and Jadenana [...] | | | | | [place] [address] | | + + + + + Care Team Providers + +------+ + | Care Director Marketing Analytics Name | Role | Phone | + +------+ + | Lexie Cagle | PCP | | | CRM DYNAMICS DEVELOPER | | | + +------+ + Reason [...] | | | | Procedures | | [address] Phone: | | | | | [place] | | [phone] | | | | | CYSTO/URETER | | Fax: | | | | | O | | [phone] | | | | | W/LITHOTRIPS | [...] + + | 01/03/ | Hospital | [facility] | Michael Fernandes | Right | | 2019 | Encounter | MED CTR OR INTRA OP | MD Yaw [address] | nephrolithiasis; | | | | [address] | [address] [place] | Right flank pain | | | | [place], [place] | [address] | | | | | [address] | | | | | | [phone] | | | +--------+ + + + [...] You can't be awakened Date Last Reviewed: 01/12/201619990239-3077 [employer]. [address] [place] [address], [place] [address]. All righ ts reserved. This information is [...] [place] | | | | | | [id number] | | | | | | | [...] + + | RENETTA DECKER | [address] | [place] [address] | [phone] | | [place]IEL[place] JONES | | | [...] day), First | | | dose on [facility] 01/03/19 at 1400, | | | Start 8 hours after pre-op dose., | | | Post-op/Phase II | | + +---+ | | | + +---+ | albuterol 2.5 mg/3 mL nebulizer | | | solution 2.5 mg 2.5 mg, | | | Nebulization, ONCE PRN, Wheezing, | | | Starting [facility] 01/03/19 at 0859, | | | For [...] ONCE PRN, | | | Wheezing, Starting [facility] 01/03/19 | | | at 0655, For [...] glucose < 50, | | | Starting [facility] 01/03/19 at 0655, | | | [...] | | | | | | longer, hiyvmr-umj-xgwsj use of | | | | | [...] DBP > 100, | | | Starting [facility] 01/03/19 at 0859, | | | Hold if HR > 100. Maximum total | | | dose 40 mg. Use labetalol first | | | if available., Recovery/Phase I | | + +---+ | | | + +---+ | HYDROmorphone (DILAUDID) | | | injection 0.2-0.4 mg 0.2-0.4 mg, | | | Intravenous, EVERY 1 HOUR PRN, | | | Pain, Starting [facility] 01/03/19 at | | | 1028, If [...] | | | | | | | hqtska-fxs-ctofy use of at least | | | [...]
--- OUTSIDE RECORDS SUMMARY | ~2019-08-23 | XMS | Encounter Summary ---
Demographics + + + | Address | [address] | | | [place] [address] | + + + | Home Phone | | + + + | Preferred Language | Unknown | + + + | Marital Status | Single | + + + | Caodaism Affiliation | MUSLIM | + + + [...] Team Providers + +------+ + | Care Product Steward Name | Role | Phone | + [...] | | | [address] [place] | | | | | [place] Mailcode: | [place] [address] | | | | | [id number] | [phone] | | | | | Clinic Building | | | | | | [place] | | | | | | [address] | | | | | | [phone] | | | +--------+ + + + [...] | | | | | | [place] [address] | | +--------+ + + + + [...] [facility] | [address] | [place], [place] | | | [facility] | | [address] | | + + + + + [...] LORENZO Ab on Hep2 Test performed by [facility] | | | Laboratories. | | + + + + + + + + | Performing | Address | City/State/Zipcode | Phone Number | | Organization | | | | + + + + + | [facility] | [address] | [place] [address] | | | LABORATORY | | | [...] + + + | [facility] | [address] | [place] [address] | | | LABORATORY | | | [...] [facility] | [address] | [place], [place] | | | [facility] | | [address] | | + + + + + [...] | + + + + + | [facility] | [address] | [place] [address] | | | LABORATORY | | | [...] + + + | [facility] | [address] | [place] [address] | | | LABORATORY | | | [...] + + + | [facility] | [address] | [place] [address] | | | LABORATORY | | | [...] withCompetitive | | | | | | [facility] | | | | + + + + + + + + | Specimen | + + | | + + + + + + + | Performing | Address | City/State/Zipcode | Phone Number | | Organization | | | | + + + + + | [facility] | [address] | [place], [place] | | | [facility] | | [address] | | + + + + + documented in this encounter Visit Diagnoses Not on filedocumented in this encounter"
--- OUTSIDE RECORDS SUMMARY | ~2019-08-23 | XMS | Encounter Summary ---
Demographics + + + | Address | [address] | | | [place] [address] | + + + | Home Phone | | + + + | Preferred Language | Unknown | + + + | Marital Status | Single | + + + | Alevism Affiliation | JAINISM | + + + [...] Providers + +------+ + | Care Farmworker Livestock Name | Role | Phone | + +------+ + | Jose Hameed MD | PCP | | + +------+ + Encounter Details +--------+ + + + + | Date | Type | Department | Care Team | Description | +--------+ + + + + | 05/03/ | Superintendent Fish Hatchery | [facility] | [place], | | | 2019 | | Clinics at | MD Patrick [address] | | | | | [facility] | [place], | | | | | for Health and | [place] [address] | | | | | Healing [address] | [phone] | | | | | [place] | | | | | | [address] | | | | | | [phone] | | | +--------+ + + + [...] | | | | | | [place] [address] | | +--------+ + + + + documented as of this encounter Visit Diagnoses Not on filedocumented in this encounter"
--- OUTSIDE RECORDS SUMMARY | ~2019-08-23 | XMS | Encounter Summary ---
Demographics + + + | Address | [address] | | | [place] [address] | + + + | Home Phone | | + + + | Preferred Language | Unknown | + + + | Marital Status | Single | + + + | Shinto Affiliation | MANDAEISM | + + + [...] Team Providers + +------+ + | Care Intel Recruiter Name | Role | Phone | + [...] | | | | | | [place] [address] | | +--------+ + + + + documented as of this encounter Visit Diagnoses Not on filedocumented in this encounter"
--- OUTSIDE RECORDS SUMMARY | ~2019-08-23 | XMS | Encounter Summary ---
Demographics + + + | Address | [address] | | | [place] [address] | + + + | Home Phone | | + + + | Preferred Language | Unknown | + + + | Marital Status | Single | + + + | Rastafari Affiliation | BUDDHIST | + + + [...] Providers + +------+ + | Care Inspector Health Care Facilities Name | Role | Phone | + [...] | +--------+ + + + + | 03/03/ | Hospital | [facility] [address] | Neto Lockhart, | | | 2015 | Encounter | [address] | [address] | | | | | [id number]/[id number] | [address] | | | | | [place], | [place], [place] | | | | | [place] [address] | [address] | | | | | [phone] | [phone] | | | | | | | [...] RN - 03/03/2015General Discharge Instructions for Same-Day Proce dure Patients: ? Remember that you are [...] patient satisfaction survey from "Ana Paula Vega". We w lateshald appreciate your feedback on the survey to help us provide excellent service to you and your family. AttachmentsThe following attachments cannot be sent through Care Everywhere.SURGICAL DRAIN CARE (MACANESE)documented in this encounter Medications at Time of [...] | | | | | | [place] [address] | | +--------+ + + + + [...] | | Attending Surgeon: Neto Lockhart MD Golf Cart Repairer(s): Nasrin | | Tiesha Becerra MD Anesthesia: [...] | mL.Estimated Blood Loss: 50 mL.Drains: Two 19-Italian Chito drains - one drain along | [...] amount of rash around his umbilicus. A Iwruy-sr-wue | | abdominoplasty with monsplasty and liposuction [...] patient's abdominal wall as regional blocks. Two 19-Italian | | Blakes were then placed in [...] BERNADETTE Lockhart/KAILEYLDD: 03/03/2015 12:30:41DT: 03/03/2015 13:44:15Job #: [id number] | | | |At the end of [...] |SC/MODL | | | | | | /[id number] | + + ANTIBODY SCREEN (03/03/2015 6:24 [...] | + + + + + | [facility] | [address] | [place] [address] | | | SERVICES, | [address] [...] | + + + + + | [facility] | [address] | [place] [address] | | | MICHAEL | [address] | | | | TRANSFUSION MEDICINE | | | | + + + + + documented in this encounter Visit Diagnoses Not on filedocumented in this encounter Administered Medications + +---------+ + + +------+ | Medication Order | MAR | Action | Dose | Rate | Site | | | Action | Date | | | | + +---------+ + + +------+ | lactated ringers IV 10 mL/hr, | New Bag | 03/03/20 | 10 mL/hr | 10 mL/hr | | | intravenous, PROCEDURE | | 15 7:32 | | | | | CONTINUOUS, Starting 03/03/15 | | AM PST | | | | | at 0615, Until Mon03/03/15 at | | | | | | | 1823 | | | | | | + +---------+ + + +------+ +---+---+ | | | +---+---+ + +-------+ +-------+---+---+ | oxyCODONE (immediate release) | Given | 03/03/20 | 10 mg | | | | (ROXICODONE) tablet 5-10 mg 5-10 | | 15 10:35 | | | | | mg, oral, EVERY 4 HOURS | | AM PST | | | | | NEEDED, Starting 03/03/15 at | | | | | | | 0657, Until Mon03/03/15 at 1823, | | | | | | | severe pain | | | | | | + +-------+ +-------+---+---+ + +---+ | | | + +---+ | oxyCODONE (immediate release) | | | (ROXICODONE) tablet 1 dose, | | | Starting 03/03/15 at 1034, | | | Until 03/03/15 at 1035 | | + +---+ | | | + +---+ documented in this encounter
--- OUTSIDE RECORDS SUMMARY | ~2019-08-23 | XMS | Encounter Summary ---
Demographics + + + | Address | [address] | | | [place] [address] | + + + | Home Phone | | + + + | Preferred Language | Unknown | + + + | Marital Status | | + + + | Sabianism Affiliation | Unknown | + + + | Race | Unknown | + + + | Ethnic Group | Unknown | + + + Author + + + | Author | [facility] | | | and [place] | + + + | Organization | [facility] [...] | | | | | [place] [address] | | + + + + + Care Team Providers + +------+ + | Care Building Cleaner Name | Role | Phone | + +------+ + | Lexie Cagle | PCP | | | PHYSICIAN VICE PRESIDENT | | | + +------+ + Reason for Visit + + + | Reason | Comments | + + + | Follow-up | review CT image results | + + + Encounter Details +--------+---------+ + + + | Date | Type | Department | Care Team | Description | +--------+---------+ + + + | 12/20/ | Office | [facility] | Michael Fernandes | Right | | 2019 | Visit | [address] | MD Yaw [address] | nephrolithiasis | | | | [place]CI[place] | PRECIOUS EM | (Primary Dx); Right | | | | [address] | [address] | flank pain; CHRISTEN | | | | [phone] | | (obstructive sleep | | | | | | apnea) | +--------+---------+ + + + Social History [...] + + + | Blood Pressure | 144/84 | 12/20/2018 3:47 PM | | | | | PDT | | + + + + + | Pulse | 58 | 12/20/2018 3:47 PM | | | | | PDT | | + + + + + | Temperature | - | - | | + + + + + | Respiratory Rate | 16 | 12/20/2018 3:47 PM | | | | | PDT | | + + + + + | Oxygen Saturation | - | - | | + + + + + | Inhaled Oxygen | - | - | | | Concentration | | | | + + + + + | Weight | 93.8 kg (206 lb 12.7 | 12/20/2018 3:47 PM | | | | oz) | PDT | | + + + + + | Height | 177.8 cm (5' 10") | 12/20/2018 3:47 PM | | | | | PDT | | + + + + + | Body Mass Index | 29.67 | 12/20/2018 3:47 PM | | | | | PDT | | + + + + + documented in this encounter Patient Instructions Patient Instructions Manju Mccartney RN - 12/20/2018 4:00 PM PDTPreoperative Instructi ons Your surgery with Dr. Fernandes has been scheduled for January 03, 2019 at 7:45AM at [facility]. Please report to the [facility] no later than 6:15 AM. REMEMBER: NOTHING TO EAT OR DRINK AFTER MIDNIGHT January 02, 2019. Take all of your usual medications with a sip of water except WARFARIN. STOP WARFARIN 5 DAYS PRIOR TO SURGERY NO ASPIRIN OR ASPIRIN PRODUCTS, NO FISH OIL OR VITAMIN E FOR ONE WEEK PRIOR TO SURGERY. Ty lenol (acetaminophen) and ibuprofen is OK. You will need someone to drive you home after surgery. Pre Admissions Clinic appointment now for EKG, CBC and BMP. Call us at [phone] with any questions. [x] Pain management booklet provided to patient. documented in this encounter Progress Notes Michael Fernandes MD - 12/20/2018 4:00 PM PDTFormatting of this note might be differ ent from the original. Chief Complaint Patient presents with Follow-up review CT image results HPI Mian Marquez is a 68 y.o. male patient of Lexie Cagle APRN here today for a follow u p to review CT results. MS-diagnosed in 1997, symptoms have been relatively [...] right kidney however no signs of obstruction. Assessment Mian was seen today for follow-up. Diagnoses and all orders for this visit: Right nephrolithiasis - Case Request - OR/ENDO/ASC/OB: CYSTOSCOPY Right URETEROSCOPY W/ LASER lithotripsy and stent - ECG 12 lead; Future - CBC w/ Auto Differential; Future - Basic Metabolic Panel; Future Right flank pain - Case Request - OR/ENDO/ASC/OB: CYSTOSCOPY Right URETEROSCOPY W/ LASER lithotripsy and stent - ECG 12 lead; Future - CBC w/ Auto Differential; Future - Basic Metabolic Panel; Future CHRISTEN (obstructive sleep apnea) - ECG 12 lead; Future Other orders - oxyCODONE (ROXICODONE) 5 mg tablet; Take 1 tablet by mouth every 8 hours as needed fo r Pain. Plan The etiology for the patient's right-sided back and flank pain is still unknown. The stone seen on CT scan is not causing obstruction and there is no evidence of hydronephrosis. I d iscussed with the patient that it is unlikely treating the stone will have any significant i mpact on the patient's pain however I do recommend treating the stone as it is quite large a nd the patient would be unlikely to pass this on his own. It can also lead to future proble ms such as recurrent infections and even loss of the kidney. We will schedule patient for ureteroscopy laser lithotripsy and stent. We discussed risks including pain, bleeding, infection, bladder injury, ureteral perforation, ureteral strictur e, renal hematoma, continued right back and flank pain and need for possible future procedur es. Past Medical History Past Medical History: Diagnosis [...] catheter placement; Surgeon: Michael Fernandes MD; Location: [facility] MAIN OR CHOLECYCTOSTOMY CYSTOSCOPY N/A 04/19/2018 Procedure: Cystoscopy, bladder Botox, injection of urethral bulking agent; Surgeon: Gina Fernandes MD; Location: [facility] MAIN OR GASTRIC BYPASS SURGERY [...] mg DR capsule, Take 60 mg by mouth., Disp: , Rfl: gabapentin (NEURONTIN) 300 mg [...] Negative for nausea and vomiting. Objective BP 144/84 | Pulse 58 | Resp 16 | Ht 1.778 m (5' 10") | Wt 93.8 kg (206 lb 12.7 oz) | B CT 29.67 kg/m General Appearance: Alert, cooperative, no distress, [...] orders placed or performed in visit on 12/14/18 Hemoglobin A1C Result Value Ref Range Hemoglobin A1c 5.5 4.3 - 6.0 % Estimated Average Glucose 111 mg/dL Protime INR Result Value Ref Range Prothrombin Time 22.4 (H) 11.3 - 13.9 seconds INR 2.0 (H) 0.9 - 1.1 Lab Results Component Value Date CREA 1.02 [...] have not thoroughly proofread this note, and check writer salesperson errors are very likely to occur. CC: Lexie Cagle APRN documented in this encounter Plan of Treatment +--------+---------+ + + + | Date | Type | Specialty | Care Team | Description | +--------+---------+ + + + | 11/12/ | Office | Sleep Medicine | Laith Sheffield PA | | | 2019 | Visit | | [address] | | | | | | [place] | | | | | | [address] | | | | | | | | +--------+---------+ + + + + +------+--------+ + + | Name | Type | Priori | Associated Diagnoses | Order Schedule | | | | ty | | | + +------+--------+ + + | ECG 12 lead | ECG | Routin | Right | Expected: 12/20/2018 | | | | e | nephrolithiasis | (Approximate), | | | | | Right flank pain | Expires: 12/21/2019 | | | | | CHRISTEN (obstructive | | | | | | sleep apnea) | | + +------+--------+ + + documented as of this encounter Results Basic Metabolic Panel (12/20/2018 5:01 PM PDT) + + + + + + | Component | Value | Ref Range | Performed | Pathologist | | | | | At | Signature | + + + + + + | Na | 142 | 136 - 145 | [facility] | | | | | mmol/L | [facility] | | | | | | MEDICAL | | | | | | CENTER - | | | | | | LABORATORY | | + + + + + + | K | 4.3 | 3.4 - 5.1 | [facility] | | | | | mmol/L | [facility] | | | | | | MEDICAL | | | | | | CENTER - | | | | | | LABORATORY | | + + + + + + | Cl | 107 | 98 - 107 mmol/L | [facility] | | | | | | [facility] | | | | | | MEDICAL | | | | | | CENTER - | | | | | | LABORATORY | | + + + + + + | CO2 | 28 | 20 - 31 mmol/L | [facility] | | | | | | [facility] | | | | | | MEDICAL | | | | | | CENTER - | | | | | | LABORATORY | | + + + + + + | Anion Gap | 7 | 3 - 16 mmol/L | [facility] | | | | | | [facility] | | | | | | MEDICAL | | | | | | CENTER - | | | | | | LABORATORY | | + + + + + + | Glucose | 105 | 60 - 106 mg/dL | [facility] | | | | | | [facility] | | | | | | MEDICAL | | | | | | CENTER - | | | | | | LABORATORY | | + + + + + + | BUN | 20 | 9 - 23 mg/dL | [facility] | | | | | | [facility] | | | | | | MEDICAL | | | | | | CENTER - | | | | | | LABORATORY | | + + + + + + | Creatinine | 1.02 | 0.70 - 1.30 | [facility] | | | | | mg/dL | [facility] | | | | | | MEDICAL | | | | | | CENTER - | | | | | | LABORATORY | | + + + + + + | eGFR if not | >60Comment: GLOMERULAR | >=60 | [facility] | | | | FILTRATION | mL/min/1.73m2 | [facility] | | | [facility] | RATE,ESTIMATED | | MEDICAL | | | | mL/min/1.85s8Aeql than | | CENTER - | | [...] + + + + | Calcium | 9.7 | 8.7 - 10.4 | [facility] | | | | | mg/dL | [facility] | | | | | | MEDICAL | | | | | | CENTER - | | | | | | LABORATORY | | + + + + + + | BUN/Creatin | 19.6 | | [facility] | | | ine [...] ST. | [address] | [place] | [phone] | | [facility] | | [address] | | | - LABORATORY | | | | + + + + + CBC w/ Auto Differential (12/20/2018 5:01 PM PDT) + + + + + + | Component | Value | Ref Range | Performed | Pathologist | | | | | At | Signature | + + + + + + | WBC | 6.1 | 4.0 - 11.0 K/uL | [facility] | | | | | | [facility] | | | | | | MEDICAL | | | | | | CENTER - | | | | | | LABORATORY | | + + + + + + | RBC | 4.38 | 4.30 - 5.70 | [facility] | | | | | M/uL | [facility] | | | | | | MEDICAL | | | | | | CENTER - | | | | | | LABORATORY | | + + + + + + | Hemoglobin | 14.0 | 13.5 - 18.0 | [facility] | | | | | g/dL | [facility] | | | | | | MEDICAL | | | | | | CENTER - | | | | | | LABORATORY | | + + + + + + | Hematocrit | 42.7 | 40.0 - 51.0 % | [facility] | | | | | | [facility] | | | | | | MEDICAL | | | | | | CENTER - | | | | | | LABORATORY | | + + + + + + | MCV | 97.5 | 83.0 - 101.0 fL | [facility] [...] + + + + | MCHC | 32.8 | 32.0 - 36.0 | [facility] | | | | | g/dL | [facility] | | | | | | MEDICAL | | | | | | CENTER - | | | | | | LABORATORY | | + + + + + + | RDW-CV | 13.5 | <15.0 % | [facility] | | | | | | [facility] | | | | | | MEDICAL | | | | | | CENTER - | | | | | | LABORATORY | | + + + + + + | RDW-SD | 49.6 (H) | 35.1 - 46.3 fL | [facility] | | | | | | [facility] | | | | | | MEDICAL | | | | | | CENTER - | | | | | | LABORATORY | | + + + + + + | Platelet | 189 | 140 - 440 K/uL | [facility] | | | Count | | | [facility] | | | | | | MEDICAL | | | | | | CENTER - | | | | | | LABORATORY | | + + + + + + | MPV | 10.0 | 6.5 - 12.4 fL | [facility] | | | | | | [facility] | | | | | | MEDICAL | | | | | | CENTER - | | | | | | LABORATORY | | + + + + + + | % | 66.4 | 45.0 - 82.0 % | [facility] | | | Neutrophils | | | [facility] | | | | | | MEDICAL | | | | | | CENTER - | | | | | | LABORATORY | | + + + + + + | % | 14.5 (L) | 20.0 - 45.0 % | [facility] | | | Lymphocytes | | | [facility] | | | | | | MEDICAL | | | | | | CENTER - | | | | | | LABORATORY | | + + + + + + | % Monocytes | 11.4 | 4.0 - 12.0 % | [facility] | | | | | | [facility] | | | | | | MEDICAL | | | | | | CENTER - | | | | | | LABORATORY | | + + + + + + | % | 6.4 (H) | 0.0 - 5.0 % | [facility] | | | Eosinophils | | | [facility] | | | | | | MEDICAL | | | | | | CENTER - | | | | | | LABORATORY | | + + + + + + | % Basophils | 0.8 | 0.0 - 1.0 % | [facility] | | | | | | [facility] | | | | | | MEDICAL | | | | | | CENTER - | | | | | | LABORATORY | | + + + + + + | % Immature | 0.5 (H)Comment: | 0.0 - 0.4 % | [facility] | | | Granulocyte | Preliminary studies have | | [facility] | | | s | indicated the IG% | | MEDICAL | | | | and/or IG# show promise | | CENTER - | | | | as an early indicator | | LABORATORY | | | | for infection. | | | | + + + + + + | Absolute | 4.01 | 1.80 - 8.50 | [facility] | | | Neutrophils | | K/uL | [facility] | | | | | | MEDICAL | | | | | | CENTER - | | | | | | LABORATORY | | + + + + + + | Absolute | 0.88 | 0.60 - 3.20 | [facility] | | | Lymphocytes | | K/uL | [facility] | | | | | | MEDICAL | | | | | | CENTER - | | | | | | LABORATORY | | + + + + + + | Absolute | 0.69 | 0.00 - 1.00 | [facility] | | | Monocytes | | K/uL | [facility] | | | | | | MEDICAL | | | | | | CENTER - | | | | | | LABORATORY | | + + + + + + | Absolute | 0.39 | 0.00 - 0.40 | [facility] | | | Eosinophils | | K/uL | [facility] | | | | | | MEDICAL | | | | | | CENTER - | | | | | | LABORATORY | | + + + + + + | Absolute | 0.05 | 0.00 - 0.10 | [facility] | | | Basophils | | K/uL | [facility] | | | | | | MEDICAL | | | | | | CENTER - | | | | | | LABORATORY | | + + + + + + | Absolute | 0.03 | 0.00 - 0.03 | [facility] | | | Immature | | K/uL | [facility] | | | Granulocyte | | | MEDICAL | | | s | | | CENTER - | | | | | | LABORATORY | | + + + + + + | % nRBC | 0 | 0 - 2 per 100 | [facility] | | | | | WBCs | [facility] | | | | | | MEDICAL | | | | | | CENTER - | | | | | | LABORATORY | | + + + + + + | Absolute | 0.00 | 0.00 - 0.01 | [facility] | | | nRBC | | K/uL | [facility] | | | | [...] + | [facility] | [address] | [place] | [phone] | | [facility] | | [address] | | | - LABORATORY | | | | + + + + + documented in this encounter Visit Diagnoses + + | Diagnosis | + + | Right nephrolithiasis - Primary | + + | Right flank pain Abdominal pain, unspecified site | + + | CHRISTEN (obstructive sleep apnea) Obstructive sleep apnea (adult) (pediatric) | + + documented in this encounter
--- OUTSIDE RECORDS SUMMARY | ~2019-08-23 | XMS | Encounter Summary ---
Demographics + + + | Address | [address] | | | [place] [address] | + + + | Home Phone [...] | [facility] | | | and Jadenana | + + + | Organization | [facility] | | [...] | | | | | [place] [address] | | + + + + + Care Team Providers + +------+ + | Care Identity Access Management Architect Name | Role | Phone | + +------+ + | Lexie Cagle | PCP | | | CISTERN ROOM WORKING SUPERVISOR | | | + +------+ + Reason for Visit + + + | Reason | Comments | + + + | Incontinence | | + + + Encounter Details +--------+ + + + + | Date | Type | Department | Care Team | Description | +--------+ + + + + | 02/04/ | Clinical | [facility] | Colin Brown, | Urinary incontinence | | 2019 | Support | [address] | MD [address] | without sensory | | | | [place] | [place]CIOUS [place] | awareness (Primary | | | | [address] | [address] | Dx); 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 He lacks some leguillon debeader strength in his left hand and said [...] [place] | | | | | | [address] | | | | | | | [...]
--- OUTSIDE RECORDS SUMMARY | ~2019-08-23 | XMS | Encounter Summary ---
Demographics + + + | Address | [address] | | | [place] [address] | + + + | Home Phone [...] Author | [facility] | | | and Jadenana | + + + | Organization | [facility] | | | and [...] | | | | | [place] [address] | | + + + + + Care Team Providers + +------+ + | Care Supervisor Cutting And Boning Name | Role | Phone | + +------+ + | Lexie Cagle | PCP | | | BROWNING PROCESSOR | | | + +------+ + [...] Medication Refill | | 2019 | | [facility] [address] | [address] | | | | | [facility] | [facility] | | | | | [place] [address] | [place] [address] | | | | | [phone] | [phone] | | | | | | | [...] 2019 | Visit | | [address] | | | | | | [place]OUS [place] | | | | | | [address] | | | | | | | [...]
--- OUTSIDE RECORDS SUMMARY | ~2019-08-23 | XMS | Encounter Summary ---
Demographics + + + | Address | [address] | | | [place] [address] | + + + | Home Phone | | + + + | Preferred Language | Unknown | + + + | Marital Status | | + + + | Sabianist Affiliation | Unknown | + + + | Race | Unknown | + + + | Ethnic Group | Unknown | + + + Author + + + | Author | [facility] | | | and [place] | + + + | Organization | [facility] | | | [...] | | | | | [place] [address] | | + + + + + Care Team Providers + +------+ + | Care Online Marketing Coordinator Name | Role | Phone | + +------+ + | Lexie Cagle | PCP | | | TRUCK RENTAL SERVICE ATTENDANT | | | + +------+ + Reason for Visit + + + | Reason | Comments | + + + | Lab Results | | + + + Encounter Details +--------+ + + + + | Date | Type | Department | Care Team | Description | +--------+ + + + + | 11/27/ | Telephone | [facility] | Lexie Cagle | Lab Results | | 2019 | | MEDICINE [address] | [address] | | | | | [address] | [facility] | | | | | [place] [address] | [place] [address] | | | | | [phone] | [phone] | | | | | | | [...] [place] | | | | | | [address] | | | | | | | | +--------+---------+ + + + documented as of this encounter Visit Diagnoses Not on filedocumented in this encounter"
--- OUTSIDE RECORDS SUMMARY | ~2019-08-23 | XMS | Encounter Summary ---
Demographics + + + | Address | [address] | | | [place] [address] | + + + | Home Phone | | + + + | Preferred Language | Unknown | + + + | Marital Status | Single | + + + | Presybeterian Affiliation | JAINISM | + + + [...] Providers + +------+ + | Care Health Coordinator Name | Role | Phone | + +------+ + | Rudolph Lee MD | PCP | | + +------+ + Encounter Details +--------+ + + + + | Date | Type | Department | Care Team | Description | +--------+ + + + + | 02/21/ | Procedure - | | Lab, Vascular [...] | | | | | | [place] [address] | | +--------+ + + + + documented as of this encounter Procedures + +--------+ + + + | Procedure Name | Priori | Date/Time | Associated Diagnosis | Comments | | | ty | | | | + +--------+ + + + | VASCULAR FLOW | | 02/21/2002 | | | | IMAGING, NONCARDIAC | | | | | | - VASC LAB | | | | | + +--------+ + + + documented in this encounter Visit Diagnoses Not on filedocumented in this encounter"
--- OUTSIDE RECORDS SUMMARY | ~2019-08-23 | XMS | Encounter Summary ---
Demographics + + + | Address | [address] | | | [place] [address] | + + + | Home Phone [...] | Author | [facility] | | | and Jadenana | + + + | Organization | [facility] | | | and Jadenana | [...] | | | | | [place] [address] | | + + + + + Care Team Providers + +------+ + | Care Bingo Clerk Name | Role | Phone | + +------+ + | Lexie Cagle | PCP | | | POCKET CREASER | | | + +------+ + Reason for Visit + + + | Reason | Comments | + + + | Lab Results | | + + + Encounter Details +--------+ + + + + | Date | Type | Department | Care Team | Description | +--------+ + + + + | 01/22/ | Telephone | [facility] | Lexie Cagle | Lab Results | | 2019 | | MEDICINE [address] | [address] | | | | | Street Jill[address] | [address] | | | | | [place] [address] | [place] [address] | | | | | [phone] | [phone] | | | | | | | [...] [place] | | | | | | [address] | | | | | | | | +--------+---------+ + + + documented as of this encounter Visit Diagnoses Not on filedocumented in this encounter"
--- OUTSIDE RECORDS SUMMARY | ~2019-08-23 | XMS | Encounter Summary ---
Demographics + + + | Address | [address] | | | [place] [address] | + + + | Home Phone | | + + + | Preferred Language | Unknown | + + + | Marital Status | Single | + + + | Restorationist Affiliation | SABIANISM | + + + [...] Team Providers + +------+ + | Care Quality Control Checker Name | Role | Phone | + [...] Srikanth | | | | | [facility] | [facility] | | | | | Hospital Admitting | [place], [place] | | | | | Desk Located on the | [address] | | | | | 9th floor | [phone] | | | | | [place], [place] | | | | | | [address] | | | +--------+---------+ + + + [...] RN - 03/03/2015General Discharge Instructions for Same-Day [facility] dure Patients: ? Remember that you [...] be sent through Care Everywhere.SURGICAL DRAIN CARE (BERMUDIAN)documented in this encounter Medications at Time of [...] | | | | | | [place] [address] | | +--------+ + + + + [...] | | Attending Surgeon: Neto Lockhart MD Contour Band Saw Operator Vertical(s): Nasrin | | Tiesha Becerra MD Anesthesia: [...] | mL.Estimated Blood Loss: 50 mL.Drains: Two 19-Kittitian Chito drains - one drain along | [...] amount of rash around his umbilicus. A Xzyfq-ib-pny | | abdominoplasty with monsplasty and liposuction [...] patient's abdominal wall as regional blocks. Two 19-Kittitian | | Blakes were then placed in [...] BERNADETTE Lockhart/KAILEYLDD: 03/03/2015 12:30:41DT: 03/03/2015 13:44:15Job #: [id number] | | | |At the end of [...] |SC/MODL | | | | | | /[id number] | + + ANTIBODY SCREEN (03/03/2015 6:24 [...] | + + + + + | [facility] | [address] | [place] [address] | | | SERVICES, | [address] [...] | + + + + + | [facility] | [address] | [place] [address] | | | SERVICES, | [address] [...]
--- OUTSIDE RECORDS SUMMARY | ~2019-08-23 | XMS | Encounter Summary ---
Demographics + + + | Address | [address] | | | [place] [address] | + + + | Home Phone | | + + + | Preferred Language | Unknown | + + + | Marital Status | | + + + | Presybeterian Affiliation | Unknown | + + + | Race | Unknown | + + + | Ethnic Group | Unknown | + + + Author + + + | Author | [facility] | | | and Jadenana | + + + | Organization | [facility] | | | and [...] | | | | | [place] [address] | | + + + + + Care Team Providers + +------+ + | Care Arabic Teacher Name | Role | Phone | + +------+ + | Lexie Cagle | PCP | | | AGRICULTURAL EQUIPMENT TEST ENGINEER | | | + +------+ + Reason for Visit + + + | Reason | Comments | + + + | Follow-up | review CT image results | + + + Encounter Details +--------+---------+ + + + | Date | Type | Department | Care Team | Description | +--------+---------+ + + + | 12/20/ | Office | [facility] UROLOGY | Michael Fernandes | Right | | 2019 | Visit | [address] | MD Yaw [address] | nephrolithiasis | | | | PRECIOUS [place] | PRECIOUS EM | (Primary Dx); Right | | | | [address] | [address] | flank pain; CHRISTEN | | | | [phone] | | (obstructive sleep | | | [...] for January 03, 2019 at 7:45AM at [facility]. Please report to the Surgery and [...] EKG, CBC and BMP. Call us at [phone] with any questions. [x] Pain management booklet [...] catheter placement; Surgeon: Michael Fernandes MD; Location: [facility] MAIN OR CHOLECYCTOSTOMY CYSTOSCOPY N/A 04/19/2018 Procedure: Cystoscopy, bladder Botox, injection of urethral bulking agent; Surgeon: Gina Fernandes MD; Location: [facility] MAIN OR GASTRIC BYPASS SURGERY [...] kg (206 lb 12.7 oz) | B MA 29.67 kg/m General Appearance: Alert, cooperative, no [...] have not thoroughly proofread this note, and shift boss errors are very likely to occur. CC: Lexie Cagle APRN documented in this encounter Plan of Treatment +--------+---------+ + + + | Date | Type | Specialty | Care Team | Description | +--------+---------+ + + + | 11/12/ | Office | Sleep Medicine | Laith Sheffield PA | | | 2019 | Visit | | [address] | | | | | | [place] | | | | | | [address] | | | | | | | [...] | 1.02 | 0.70 - 1.30 | [facility] | | | | | mg[facility]dL | [facility] | | | | | | [facility]ICAL | | | | | | CENTER - | | | | | | LABORATORY | | + + + + + + | eGFR if not | >60Comment: GLOMERULAR | >=60 | [facility] | | | | FILTRATION | mL/min/1.73m2 | [facility] | | | TUNISIAN | RATE,ESTIMATED | | MEDICAL | | | | mL/min/1.66u5Iivv than | | CENTER - | | [...] [address] | [place] | [phone] | | [facility] | | [address] | | | - LABORATORY | | [...] | [address] | [place] | [phone] | | [facility] | | [address] | | | - LABORATORY | | [...]
--- OUTSIDE RECORDS SUMMARY | ~2019-08-23 | XMS | Encounter Summary ---
Demographics + + + | Address | [address] | | | [place] [address] | + + + | Home Phone | | + + + | Preferred Language | Unknown | + + + | Marital Status | | + + + | Scientologist Affiliation | Unknown | + + + | Race | Unknown | + + + | Ethnic Group | Unknown | + + + Author + + + | Author | [facility] | | | and Jadenana | + + + | Organization | [facility] | | | and Jadenana [...] | | | | | [place] [address] | | + + + + + Care Team Providers + +------+ + | Care Human Resources Executive Name | Role | Phone | + [...] Description | +--------+---------+ + + + | 08/07/ | Office | [facility] | Laith Sheffield PA | CHRISTEN on CPAP (Primary | | 2020 | Visit | SLEEP DISORDER [address] | [address] | Dx) | | | | [address] [place] | [place] | | | | | [place] [address] | [address] | | | | | [phone] | | | +--------+---------+ + + + [...] + documented in this encounter Progress Notes Laith Sheffield PA - 08/08/2019 10:30 AM PDT Subjective: Patient ID: last office visit: 06/27/2019 date of HST (Watch-Pat): 06/20/2019 AHI: 14.1 RDI: 15.4 O2%: 79% with 17.0 minutes below 88% Machine type: ResMed AirSense 10 Mask type: ResMed F20 full face mask DME: [employer] in [place] pressure: 4-15 cm Median: 12.0 cm 95%: 14.9 cm maximum: 15.0 cm Nights using CPAP: 30/30 % of nights >4 hours: 90% average usage (all nights): 6:06 average usage (nights used): 6:06 AHI: 4.1 Mian comes in for CPAP compliance. He is doing well with his CPAP, wearing it regularly f or the duration of his sleep. He is doing well with his CPAP, but his sleep has been disrup leydi multiple times during the night by his mask. He says his mask is leaking off and on thr oughout the night. We discussed the fact that we sleep in ninety minute sleep cycles throug hout the night. We briefly wake up after each of these cycles, but it is usually a subconsc ious period. We discussed the fact that CPAP can disrupt these cycles and cause it to be a conscious wakeup. For others, this remains a subconscious wakeup and the take off their mas k and go back to sleep without remembering it. As the CPAP becomes more familiar, it return s to being a subconscious wakeup. I had him work with a electromedical equipment technician on his mask fit. His st raps were very loose. He was not using water in his humidifier or the heated tube. I have discussed the download in detail. This shows that his sleep apnea is controlled, wi th an AHI of 4.1. It also shows that his leaks are controlled. It shows that he is wearing his CPAP >4 hours for 90% of the nights during 30 consecutive nights. Objective: Physical Exam BP 140/80 | Pulse 90 | Resp 16 | Wt 95.5 kg (210 lb 8.6 oz) | SpO2 90% | BMI 31.09 kg/ m Assessment: Problem #1: OBSTRUCTIVE SLEEP APNEA ([id number]) He has mild apnea. This is controlled with CPAP. He is doing well with his CPAP usage. Adalberto bello has used his CPAP >4 hours for 90% of the nights for 30 consecutive nights. Plan: 1. He is to continue with CPAP indefinitely. I will follow up again in 3 months, sooner prn. At that time we will reassess with all lola ropriate paperwork. Twenty-five minutes were spent dosy-xa-rsfg, with the majority of time spent in counseling. Laith Sheffield PA-C cc: Shmuel Merrill MD d ocumented in this encounter Plan of Treatment +--------+---------+ + + + | Date | Type | Specialty | Care Team | Description | +--------+---------+ + + + | 11/12/ | Office | Sleep Medicine | Laith Sheffield PA | | | 2019 | Visit | | [address] | | | | | | [place]CI[place] | | | | | | [id number] | | | | | | | | +--------+---------+ + + + documented as of this encounter Visit Diagnoses + + | Diagnosis | + + | CHRISTEN on CPAP - Primary Obstructive sleep apnea (adult) (pediatric) | + + documented in this encounter"
--- OUTSIDE RECORDS SUMMARY | ~2019-08-23 | XMS | Encounter Summary ---
Demographics + + + | Address | [address] | | | [place] [address] | + + + | Home Phone | | + + + | Preferred Language | Unknown | + + + | Marital Status | Single | + + + | Baptist Affiliation | YARSANI | + + + | Race | [...] Team Providers + +------+ + | Care Massage Therapist Name | Role | Phone | + [...] | sclerosis | [address] | [address] | | | | | (HCC) | Nate | Nanette | | | | | Procedures | [address] | [place], [place] | | | | | CONSULT TO | [place], [place] | [address] | | | | | HEMATOLOGY / | [address] | Phone: | | | | | ONCOLOGY | Phone: | [phone] | | | | | | [phone] | Fax: | | | | | | Fax: | [phone] | | | | | | [phone] | | +--------+--------+ + + + + [...] | | | | | | | [place], [place] | | | | | | | [address] | | | | | | | Phone: | | | | | | | [phone] | | | | | | | Fax: | | | | | | | [phone] | +--------+--------+ + + + + Encounter Details +--------+---------+ + + + | Date | Type | Department | Care Team | Description | +--------+---------+ + + + | 09/19/ | Office | Neurology at | Christian Maldonado MD | Multiple sclerosis | | 2017 | Visit | [facility] & | [address] | ([facility]) (Primary Dx); | | | | Healing [address] | [address] [place], | Chronic low back | | | | Ave Mailcode: CH8C | [place] [address] | pain without | | | | [facility] | [phone] | sciatica, | | | | and Healing, | | unspecified back | | | | | | pain laterality; | | | | Floor [place], [place] | | Neurogenic bladder | | | | [address] | | | | | | [phone] | | | +--------+---------+ + + + [...] CLINIC Medical Problems 1. Multiple sclerosis Avonex 1379-3901 (treatment for 2 years) Rebif for 2.5 [...] with shanell singh and non- rechargeable battery (Digital Harbor stimulator). 9. CHRISETN INTERVAL HISTORY: Mr. Marquez RTC for follow [...] unit oral tablet Take 5,000 Units by [facility] once daily. cyanocobalamin 1,000 mcg/mL injection [...] all 4 extremities. Cerebellar testing shows slowed rauhgb-oy-hpcx. Ga it: Antalgic casual gait, very difficult [...] 2019 | | Oncology | Martín Fitz[address] [place], | | | | | | [place] [address] | | +--------+ + + + + [...] [facility] | [address] | [place] [address] | | | KAREN RODRIGUEZ | [address] [...] [facility] | [address] | [place] [address] | | | KAREN RODRIGUEZ | PARK [...] | + + + + + | [facility] | [address] [facility] [address] | [place] [address] | | | SERVICES, CORE | [address] [...] | | | LABORATORY | | | ZAMBIAN | | | SERVICES, | | | [...] [facility] | [address] | [place] [address] | | | SERVICES, CORE | [address] [...]
--- OUTSIDE RECORDS SUMMARY | ~2019-08-23 | XMS | Encounter Summary ---
Demographics + + + | Address | [address] | | | [place] [address] | + + + | Home Phone | | + + + | Preferred Language | Unknown | + + + | Marital Status | Single | + + + | Congregation Affiliation | AMISH | + + + [...] Team Providers + +------+ + | Care Triage Technician Name | Role | Phone | [...] + + | 09/25/ | Documentati | [facility] | Lab, Gi Procedure | Medical Records | | 2014 | on | [address] | | Review | | | | Martín Fitzpatrick Mailcode: | | | | | | [facility] | | | | | | Health and Healing, | | | | | | [address] | | | | | | [place], [place] | | | | | | [address] | | | | | | [phone] | | | +--------+ + + + [...] | | | | | | [place] [address] | | +--------+ + + + + documented as of this encounter Visit Diagnoses Not on filedocumented in this encounter"
--- OUTSIDE RECORDS SUMMARY | ~2019-08-23 | XMS | Encounter Summary ---
Demographics + + + | Address | [address] | | | [place] [address] | + + + | Home Phone | | + + + | Preferred Language | Unknown | + + + | Marital Status | Single | + + + | Taoism Affiliation | RELIGION | + + + [...] Team Providers + +------+ + | Care Patternmaker Plastics Name | Role | Phone | + [...] | | | | | [address] [place], | | | | | | [place] [address] | | +--------+ + + + + [...] | | | | | | [place] [address] | | +--------+ + + + + [...] | + + + + + | [facility] DEPARTMENT OF | [address] | [place] [address] | | | PATHOLOGY | [address] | | | + + + + + | [facility] DEPARTMENT OF | [address] | [place] [address] | | | PATHOLOGY | [address] [...] + + + + | [facility] | [address] | [place] [address] | | | PATHOLOGY | [address] | | | + + + + + | [facility] | [address] | [place] [address] | | | PATHOLOGY | [address] | | | + + + + + documented in this encounter Visit Diagnoses Not on filedocumented in this encounter"
--- OUTSIDE RECORDS SUMMARY | ~2019-08-23 | XMS | Encounter Summary ---
Demographics + + + | Address | [address] | | | [place] [address] | + + + | Home Phone | | + + + | Preferred Language | Unknown | + + + | Marital Status | | + + + | Mosque Affiliation | Unknown | + + + | Race | Unknown | + + + | Ethnic Group | Unknown | + + + Author + + + | Author | [facility] | | | and Jadenana | + + + | Organization | [facility] | [...] | | | | | [place] [address] | | + + + + + Care Team Providers + +------+ + | Care Ship Worker Name | Role | Phone | + +------+ + | Lexie Cagle | PCP | | | SUPERVISOR ASSEMBLY ROOM | | | + +------+ + Reason for Visit +--------+ + | Reason | Comments | +--------+ + | LABS | | +--------+ + Encounter Details +--------+ + + + + | Date | Type | Department | Care Team | Description | +--------+ + + + + | 10/11/ | Telephone | [facility] | Lexie Cagle | LABS | | 2019 | | MEDICINE [address] | [address] | | | | | [address] | [facility] [facility] | | | | | [place] [address] | [place] [address] | | | | | [phone] | [phone] | | | | | | | [...] 2020 | Visit | | [address] | | | | | | [place]CIOUS [place] | | | | | | [address] | | | | | | | | +--------+---------+ + + + documented as of this encounter Visit Diagnoses Not on filedocumented in this encounter"
--- OUTSIDE RECORDS SUMMARY | ~2019-08-23 | XMS | Encounter Summary ---
Demographics + + + | Address | [address] | | | [place] [address] | + + + | Home Phone | | + + + | Preferred Language | Unknown | + + + | Marital Status | | + + + | Baptist Affiliation | Unknown | + + + | Race | Unknown | + + + | Ethnic Group | Unknown | + + + Author + + + | Author | [facility] | | | and Jadenana | + + + | Organization | [facility] | | | and Jadenana [...] | | | | | [place] [address] | | + + + + + Care Team Providers + +------+ + | Care Vacuum Cleaner Assembler Name | Role | Phone | + +------+ + | Lexie Cagle | PCP | | | ROVING DEPARTMENT END FINDER | | | + +------+ + Reason for Visit + + + | Reason | Comments | + + + | Neurogenic Bladder | | + + + Encounter Details +--------+ + + + + | Date | Type | Department | Care Team | Description | +--------+ + + + + | 08/08/ | Clinical | [facility] | Michael Fernandes | Neurogenic bladder | | 2019 | Support | [address] | MD [address] | | | | | PRECIOUS [place] | PRECIOUS [place] | | | | | [address] | [address] | | | | | [phone] | | | +--------+ + + + [...] [place] | | | | | | [address] | | | | | | | | +--------+---------+ + + + documented as of this encounter Visit Diagnoses + + | Diagnosis | + + | Neurogenic bladder Neurogenic bladder, NOS | + + documented in this encounter"
--- OUTSIDE RECORDS SUMMARY | ~2019-08-23 | XMS | Encounter Summary ---
Demographics + + + | Address | [address] | | | [place] [address] | + + + | Home Phone | | + + + | Preferred Language | Unknown | + + + | Marital Status | Single | + + + | Latter Day Affiliation | ADVENTISM | + + + | Race | [...] Team Providers + +------+ + | Care Plastic Surgery Specialist Name | Role | Phone | + +------+ + | Trevin Delacruz MD | PCP | | + +------+ + Encounter Details +--------+------+ + + + | Date | Type | Department | Care Team | Description | +--------+------+ + + + | 07/29/ | Lab | Laboratory at [facility] | | LAP-BAND surgery | | 2014 | | [address] | | status; History of | | | | Loop Physician's | | Benito-en-Y gastric | | | | Pavilion, 3rd floor | | bypass | | | | [place], [place] | | | | | | [address] | | | | | | [phone] | | | +--------+------+ + + + [...] | | | | | | [place] [address] | | +--------+ + + + + documented as of this encounter Procedures + +--------+ + + + | Procedure Name | Priori | Date/Time | Associated Diagnosis | Comments | | | ty | | | | + +--------+ + + + | VITAMIN D, | Routin | 07/29/2014 | LAP-BAND surgery | Results for this | | 25-HYDROXY, SERUM | e | 10:11 AM | status History of | procedure are in the | | | | PDT | Benito-en-Y gastric | results section. | | | | | bypass | | + +--------+ + + + | FERRITIN | Routin | 07/29/2014 | LAP-BAND surgery | Results for this | | | e | 10:11 AM | status History of | procedure are in the | | | | PDT | Benito-en-Y gastric | results section. | | | | | bypass | | + +--------+ + + + | PTH, SERUM | Routin | 07/29/2014 | LAP-BAND surgery | Results for this | | | e | 10:11 AM | status History of | procedure are in the | | | | PDT | Beniot-en-Y gastric | results section. | | | | | bypass | | + +--------+ + + + | VITAMIN B-12 | Routin | 07/29/2014 | LAP-BAND surgery | Results for this | | | e | 10:11 AM | status History of | procedure are in the | | | | PDT | Benito-en-Y gastric | results section. | | | | | bypass | | + +--------+ + + + documented in this encounter Results FERRITIN (07/29/2014 10:11 AM PDT) + + [...] + + + + + | [facility] | [address] | [place] [address] | | | SERVICES, CORE | [address] [...] | + + + + + | [facility] | [address] | [place] [address] | | | SERVICES, SPECIAL | PARK [...] | + + + + + | [facility] | [address] | [place] [address] | | | SERVICES, SPECIAL | [address] [...] | | | | | S S [facility]T +P.P | | | | | | [...] by | | | | | | [facility],[address] | | | | | | [address], [facility] | | | | | | [address] | | | | | | [phone]. | | | | | | Quoc [...] [facility] | [address] | [place], [place] | | | [facility] | | [address] | | + + + + + documented in this encounter Visit Diagnoses + + | Diagnosis | + + | LAP-BAND surgery status Bariatric surgery status | + + | History of Benito-en-Y gastric bypass Bariatric surgery status | + + documented in this encounter"
--- OUTSIDE RECORDS SUMMARY | ~2019-08-23 | XMS | Encounter Summary ---
Demographics + + + | Address | [address] | | | [place] [address] | + + + | Home Phone | | + + + | Preferred Language | Unknown | + + + | Marital Status | Single | + + + | Worship Affiliation | SIKH | + + + | Race | [...] Team Providers + +------+ + | Care Metal Pourer Name | Role | Phone | + [...] | | Multiple | Kristan Barrios, | [place] [address] | | | | | sclerosis, | DO [address] | [address] | | | | | secondary | [address] [facility] | Ave | | | | | progressive | [address] | Mailcode: | | | | | (HCC) | [address] | [facility] | | | | | Procedures | [address] | for Health | | | | | CONSULT TO | [place], [place] | and Healing, | | | | | NEUROLOGY | [address] | Building [address], | | | | | | Phone: | 8th Floor | | | | | | [phone] | [place], [place] | | | | | | Fax: | [address] | | | | | | [phone] | Phone: | | | | | | | [phone] | | | | | | | Fax: | | | | | | | [phone] | +--------+--------+ + + + + Encounter Details +--------+---------+ + + + | Date | Type | Department | Care Team | Description | +--------+---------+ + + + | 02/03/ | Office | Neurology at | Christian Maldonado MD | MS (multiple | | 2015 | Visit | [place] [facility] & | [address] | sclerosis) (HCC) | | | | Healing [address] | Eul[place] Jernigan, | (Primary Dx); | | | | Ave Mailcode: [facility] | [place] [address] | History of [place] | | | | [facility] | [phone] | gastric bypass; | | | | and Healing, | | Neurogenic bladder; | | | | Building | | Iron deficiency; | | | | Floor [place], [place] | | Major depressive | | | | [address] | | disorder, recurrent | | | | [phone] | | episode, in partial | | [...] sclerosis. Medical Problems 1. Multiple sclerosis Avonex 0504-2560 (treatment for 2 years) Rebif for 2.5 [...] eye. He was recently seen by an drilling superintendent who failed to find any abnormalities of [...] in R LE. Cerebellar testing shows slowed lcmhqm-fr-hlst and L yhml-ch-rrtn. He has difficulty with R yaqz-ay-thwo. Gait: Walks 25 feet in 5 sec [...] | | | | | | [place] [address] | | +--------+ + + + + [...] B: | | | | | | BetterLesson/CSPerformed | | | | | | by [place],[address] | | | | | | [address], [facility] | | | | | | [address] | | | | | | [phone].[email or web address]. | | | | | | [facility], | | | | | | Siomara [...] [facility] | [address] | [place], [place] | | | [facility] | | [address] | | + + + + + [...] | + + + + + | [facility] | [address] | [place] [address] | | | MICHAEL, SPECIAL | EULALIA [...] Test performed | [facility] | | by: [employer] | REFERENCE LAB | | [address] [place] [address] | | |[place] [address] | | + + + + + [...]
--- OUTSIDE RECORDS SUMMARY | ~2019-08-23 | XMS | Encounter Summary ---
Demographics + + + | Address | [address] | | | [place] [address] | + + + | Home Phone | | + + + | Preferred Language | Unknown | + + + | Marital Status | Single | + + + | Temple Affiliation | [employer]AP[employer]IST | + + + [...] Team Providers + +------+ + | Care Subsorter Name | Role | Phone | + +------+ + | Jose Hameed MD | PCP | | + +------+ + Reason for Visit + + + | Reason | Comments | + + + | Comprehensive eye | | | examination | | + + + | Medical Eye | | | Examination | | + + + Encounter Details +--------+---------+ + + + | Date | Type | Department | Care Team | Description | +--------+---------+ + + + | 09/20/ | Office | [facility] | Ethel Romo MD | Dry eyes, bilateral | | 2018 | Visit | [facility] | [address] | (Primary Dx); Color | | | | ogy at [facility] [address] | [place], [place] | blindness, | | | | [address] Mailcode: | [address] | congenital; Multiple | | | | [address] for | [phone] | sclerosis (HCC); | | | | Health and Healing, | | Senile nuclear | | | | | | sclerosis, bilateral | | | | Floor [place], [place] | | | | | | [address] | | | | | | [phone] | | | +--------+---------+ + + + [...] documented as of this encounter Progress Notes Liya Jaimes - 09/20/2017 3:30 PM PDTFormatting of this note might be different from t zakia original. COMPREHENSIVE OPHTHALMOLOGY PROGRESS NOTE Assessment and Plan: Exam Date: 09/20/2017 Patient:Mian Marquez ([id number]) Impression: Multiple Sclerosis With history of optic neuritis OS 1997. -C/o difficulty seeing right VF. Also difficulty with higher order processing of visual inf ormation. -Visual field testing supports history of optic neuritis OS, may have had subclinical event OD as well. No hemifield defect on exam. Color blindness Incipient cataracts OU Meibomian gland dysfunction OU Plan: Discussed lid scrubs, warm compresses, flax/fish oil, ATs. RTC 1 year DFE Physician: Ethel Romo MD 09/20/2017 HPI: Mian Marquez ([id number]), 67 y.o. year old male from [place] : Patient presents with: Comprehensive eye examination Medical Eye Examination Vision getting a little blurry. Feels like vision is more blurry, fluctuates. Tobacco use: reports that he has never [...] scanned intake form or preadmission data in [facility] for full Family ocular and medical his tory. Allergies: is allergic to latex and adhesive tape. Medications: Current Outpatient Prescriptions Medication Sig apixaban (ELIQUIS ORAL) Take by mouth. buPROPion XL 150 mg oral tablet extended release 24 hr Take 1 tablet by mouth once lois y in the morning. Indications: major depressive disorder Cholecalciferol, Vitamin D3, (VITAMIN D3) 5,000 unit oral tablet Take 5,000 Units by [facility] once daily. cyanocobalamin 1,000 mcg/mL injection [...] (Snellen - Linear) Right Left Dist sc 20/20-2 20/20 Tonometry (Applanation, 3:03 PM) Right Left Pressure 10 10 Manifest Refraction Sphere Cylinder [place] Dist VA Right +0.50 +0.50 030 20/15 Left +0.25 +0.75 178 20/15 Dilation Both eyes: 2.5% Phenylephrine, 1.0% Mydriacyl @ 3:03 PM Pupils Pupils APD Right PERRL None Left PERRL None Visual [place] Left Right Full Full Extraocular Movement Right Left Full Full Neuro/Psych Oriented x3: Yes Mood/Affect: Normal Slit Lamp and Fundus Exam External Exam Right Left External Normal Normal Slit Lamp Exam Right Left Lids/Lashes 1+ MGD 1+ MGD Conjunctiva/Sclera White and quiet pinguecula Cornea All layers clear All layers clear Anterior Chamber Deep and quiet Deep and quiet Iris Normal Normal Lens 1+ NSC 1+ NSC Fundus Exam Right Left Vitreous Normal Normal Disc Normal temporal pallor C/D Ratio 0.3 0.4 Macula few drusen Normal Vessels Normal Normal Periphery Normal Normal I, Liya Jaimes, COT, performed, reviewed or revised the above history, medications, aller gies, as well as performed elements noted in the Base Ophthalmology Exam. See EPIC ophthalmology module for exam information. Assessment and Plan is now at the top of the note. I, Zeina Roblero, COA, am functioning as a scribe for Ethel Romo MD. I have reviewed and edited history and coil repair technician documentation, and performed all other el ements to above examination documentation. I have reviewed and verified the above scribed note of my visit with this patient as record ed by the scribe indicated in the tech attestation above. Ethel Romo MD Spice Cleaner Comprehensive Ophthalmology [facility] Physician: Ethel Romo MD documented in this enc ounter Plan of Treatment +--------+ + + + + | Date | Type | Specialty | Care Team | Description | +--------+ + + + + | 10/31/ | Appointment | Hematology & | Onc, Gen [address] | | | 2020 | | Oncology | [address] [place], | | | | | | [place] [address] | | +--------+ + + + + documented as of this encounter Visit Diagnoses + + | Diagnosis | + + | Dry eyes, bilateral - Primary Tear film insufficiency, unspecified | + + | Color blindness, congenital Other color vision deficiencies | + + | Multiple sclerosis (HCC) Multiple sclerosis | + + | Senile nuclear sclerosis, bilateral | + + documented in this encounter"
--- OUTSIDE RECORDS SUMMARY | ~2019-08-23 | XMS | Encounter Summary ---
Demographics + + + | Address | [address] | | | [place] [address] | + + + | Home Phone | | + + + | Preferred Language | Unknown | + + + | Marital Status | | + + + | Quaker Affiliation | Unknown | + + + | Race | Unknown | + + + | Ethnic Group | Unknown | + + + Author + + + | Author | [facility] | | | and Jadenana | + + + | Organization | [facility] | | [...] | | | | | [place] [address] | | + + + + + Care Team Providers + +------+ + | Care Metal Cnc Operator Name | Role | Phone | + +------+ + | Lexie Cagle | PCP | | | ROLL TENDER | | | + +------+ + [...] | | [place] | [place] | | | | | [address] | [address] | | | | | [phone] | | | +--------+ + + + [...] 2019 | Visit | | [address] | | | | | | [place] | | | | | | [address] | | | | | | | | +--------+---------+ + + + documented as of this encounter Visit Diagnoses Not on filedocumented in this encounter"
--- OUTSIDE RECORDS SUMMARY | ~2019-08-23 | XMS | Encounter Summary ---
Demographics + + + | Address | [address] | | | [place] [address] | + + + | Home Phone | | + + + | Preferred Language | Unknown | + + + | Marital Status | Single | + + + | Zoroastrianism Affiliation | SAMARITAN | + + + [...] Team Providers + +------+ + | Care Gauntlet Pairer Name | Role | Phone | + [...] | | | Epic Dept | [facility] | | | | | | | [...] | | | | | | | [place], [place] | | | | | | | [address] | | | | | | | Phone: | | | | | | | [phone] | | | | | | | Fax: | | | | | | | [phone] | +--------+--------+ + + + + Encounter Details +--------+---------+ + + + | Date | Type | Department | Care Team | Description | +--------+---------+ + + + | 12/21/ | Office | Neurology at | Christian Maldonado MD | Multiple sclerosis | | 2017 | Visit | [facility] & | [address] | ([facility]) (Primary Dx); | | | | Healing [address] | Eduarda James [place], | Neurogenic bladder | | | | [place] Mailcode: [facility] | [place] [address] | | | | | [facility] | [phone] | | | | | and Healing, | | | | | | [facility] | | | | | | Floor [place], [place] | | | | | | [address] | | | | | | [phone] | | | +--------+---------+ + + + [...] CLINIC Medical Problems 1. Multiple sclerosis Avonex 2001-9067 (treatment for 2 years) Rebif for 2.5 [...] replaced with paddles and non- rechargeable battery ([employer] stimulator) in spring 2016. 9. CHRISTEN INTERVAL [...] unit oral tablet Take 5,000 Units by [facility] once daily. cyanocobalamin 1,000 mcg/mL injection solution [...] decreased on R. Cerebellar testing shows slowed pqzfkg-mb-kcsz. Gait: Antalgic casual gait, very difficult to [...] | | | | | | [place] [address] | | +--------+ + + + + documented as of this encounter Visit Diagnoses + + | Diagnosis | + + | Multiple sclerosis (HCC) - Primary Multiple sclerosis | + + | Neurogenic bladder Neurogenic bladder, NOS | + + documented in this encounter"
--- OUTSIDE RECORDS SUMMARY | ~2019-08-23 | XMS | Encounter Summary ---
Demographics + + + | Address | [address] | | | [place] [address] | + + + | Home Phone | | + + + | Preferred Language | Unknown | + + + | Marital Status | | + + + | Uatsdin Affiliation | Unknown | + + + | Race | Unknown | + + + | Ethnic Group | Unknown | + + + Author + + + | Author | [facility] | | | and Jadenana | + + + | Organization | [facility] | | [...] | | | | | [place] [address] | | + + + + + Care Team Providers + +------+ + | Care Quantometer Operator Name | Role | Phone | + +------+ + | Lexie Cagle | PCP | | | INCOME AUDITOR | | | + +------+ + Encounter Details +--------+---------+ + + + | Date | Type | Department | Care Team | Description | +--------+---------+ + + + | 09/12/ | Office | [facility] | Michael Fernandes | Neurogenic bladder | | 2019 | Visit | [address] | MD Yaw [address] | (Primary Dx); Urge | | | | [place] | [address]VE [place] | incontinence; | | | | [address] | [address] | Intrinsic sphincter | | | | [phone] | | deficiency (ISD) | +--------+---------+ + [...] + + + | Blood Pressure | 134/68 | 09/12/2018 3:20 PM | | | | | PDT | | + + + + + | Pulse | 60 | 09/12/2018 3:20 PM | | | | | PDT | | + + + + + | Temperature | - | - | | + + + + + | Respiratory Rate | 18 | 09/12/2018 3:20 PM | | | | | PDT | | + + + + + | Oxygen Saturation | - | - | | + + + + + | Inhaled Oxygen | - | - | | | Concentration | | | | + + + + + | Weight | 88.5 kg (195 lb) | 09/12/2018 3:20 PM | | | | | PDT | | + + + + + | Height | 177.8 cm (5' 10") | 09/12/2018 3:20 PM | | | | | PDT | | + + + + + | Body Mass Index | 27.98 | 09/12/2018 3:20 PM | | | | | PDT | | + + + + + documented in this encounter Progress Notes Michael Fernandes MD - 09/12/2018 3:30 PM PDTFormatting of this note might [...] impaired contractility ISD Nephrolithiasis Patient recently underwent suprapubic tube placement in hopes that this might allow him to remain dry however he has continued to have leakage around the suprapubic tube at site as we ll as from the penis. At this time he requests that the suprapubic tube be removed and that he go back to [facility]. Assessment Diagnoses and all orders for this visit: Neurogenic bladder Urge incontinence Intrinsic sphincter deficiency (ISD) Plan Suprapubic tube removed today. [place]alona catheter was placed to help with wound closure. Patient to follow-up PRN Greater than 15 minutes was spent agcu-pe-ahic with the patient and greater than 50% of the time was spent counseling the patient. We discussed that due to his severe neurogenic blad ileana he would likely need major reconstruction surgery. We discussed options such as bladder augment with bladder neck closure or cystectomy with ileal conduit. Each of these procedur es were discussed in detail. Patient will follow-up as needed. Past Medical History Past Medical History: Diagnosis [...] catheter placement; Surgeon: Michael Fernandes MD; Location: [facility] MAIN OR CHOLECYCTOSTOMY CYSTOSCOPY N/A 04/19/2018 Procedure: Cystoscopy, bladder Botox, injection of urethral bulking agent; Surgeon: Gina Fernandes MD; Location: [facility] MAIN OR GASTRIC BYPASS SURGERY 2001 [...] by mouth Daily., D isp: , Rfl: dabigatran (PRADAXA) 150 mg capsule, Take 1 capsule by mouth 2 times daily., Disp: 60 capsule, Rfl: 3 dabigatran (PRADAXA) 150 mg capsule, Take 1 capsule by mouth 2 times daily., Disp: 48 capsule, Rfl: 0 DULoxetine (CYMBALTA) [address] capsule, Take 60 mg by mouth Daily., Disp: , Rfl: Nutritional Supplements (NUTRITIONAL DRINK) LIQD, Take 237 [...] nightly., Disp: 30 tablet, R fl: 0 ROS Objective BP 134/68 | Pulse 60 | Resp 18 | Ht 1.778 m (5' 10") | Wt 88.5 kg (195 lb) | BMI 27.98 kg/m General Appearance: Alert, cooperative, no distress, [...] UA, POC Negative Negative, 100 mg/dL Specific [place], UA, POC 1.020 1.001 - 1.030 Blood, [...] have not thoroughly proofread this note, and clerk analyst errors are very likely to occur. CC: Lexie Cagle APRN Dru Baldwin RN - 09/12/2018 3:30 PM [place] Note: Patient presented to office earlier this roselyn jimenez as he was scheduled for a "Nurse Visit" for a monthly suprapubic catheter change. After b ringing patient to exam room, accompanied by his daughter, he said he'd like the catheter re moved and to return to clean intermittent catheterization. His goal in having suprapubic cat heter placed was to resolve urine leakage. He continues to have urine leakage in spite of fish ving suprapubic catheter. We discussed that it may in part be because the urinary drainage b ag is on his thigh and if his clothing presses on the bag it will impede the flow of urine t o the bag and the urine will leave his body by the path of least resistance, such as leaking from his penis or around the catheter. He continues taking oxybutynin but it doesn't help with leakage. He suffers from severe depression to the point he's going to [place] for "sepideh ck treatment" and the constant odor of urine only adds to his depression. Also, he'd like to pursue a relationship and the urinary catheter equipment and odor are deterrents. He asked if there is anything else that could be tried. I told him that perhaps plugging his catheter and draining it regularly may be an option to try but really he needs to discuss this all w ith Dr Fernandes. He was added to the doctor's office schedule and will come back this after noon. ...........................................Manju Mccartney RN on 09/12/18 at 0945Elec tronically signed by Manju Mccartney RN at 09/13/2018 5:40 PM PDTdocumented in this enco unter Plan of Treatment +--------+---------+ + + + | Date | Type | Specialty | Care Team | Description | +--------+---------+ + + + | 11/12/ | Office | Sleep Medicine | Laith Sheffield PA | | | 2019 | Visit | | [address] | | | | | | [place] | | | | | | [id number] | | | | | | | [...]
--- OUTSIDE RECORDS SUMMARY | ~2019-08-23 | XMS | Encounter Summary ---
Demographics + + + | Address | [address] | | | [place] [address] | + + + | Home Phone | | + + + | Preferred Language | Unknown | + + + | Marital Status | | + + + | Mandaen Affiliation | Unknown | + + + | Race | Unknown | + + + | Ethnic Group | Unknown | + + + Author + + + | Author | [facility] | | | and Jadenana | + + + | Organization | [facility] | | [...] | | | | | [place] [address] | | + + + + + Care Team Providers + +------+ + | Care Custodial Foreman Name | Role | Phone | + +------+ + | Lexie Cagle | PCP | | | ELECTRIC MOTOR TESTER ASSEMBLER | | | + +------+ + [...] | | | | Procedures | | [address] Phone: | | | | | [place] | | [phone] | | | | | CYSTO/URETER | | Fax: | | | | | O | | [phone] | | | | | W/LITHOTRIPS | [...] + + + + | 01/03/ | Anesthesia | [facility] | [place], | | | 2018 | Event | [facility] | Lazaro Zaragoza MD | | | | | [address] | [address] | | | | | [place], [place] | [place] | | | | | [address] | [address] | | | | | [phone] | | | +--------+ + + + + Anesthesia Record + + + + + | Procedure Name | Responsible | Anesthesia Start | Anesthesia Stop Time | | | Anesthesiologist | Time | | + + + + + | CYSTOSCOPY Right | Lazaro Zaragoza | 01/03/19741 | 01/03/19903 | | URETEROSCOPY W/ | MD [place] | | | | LASER lithotripsy | | | | | and stent (Right | | | | | Ureter) | | | | + + + + + +----+---+ + + | Da | T | Event | Comment | | te | i | | | | | m | | | | | e | | | +----+---+ + + | 10 | 0 | | | | /1 | 7 | | | | 0/ | 3 | | | | 20 | 8 | | | | 19 | | | | +----+---+ + + | | 0 | An Checkout | Pre-use anesthesia machine/equipment checkout. | | | 7 | | | | | 3 | | | | | 8 | | | +----+---+ + + | | 0 | An Start | Reassessment prior to anesthesia induction/procedure. | | | 7 | | | | | 4 | | | | | 2 | | | +----+---+ + + | | 0 | Preoxygenat | | | | 7 | ed | | | | 4 | | | | | 7 | | | +----+---+ + + | | 0 | An | | | | 7 | Induction | | | | 4 | | | | | 9 | | | +----+---+ + + | | 0 | An | | | | 7 | Intubation | | | | 5 | | | | | 0 | | | +----+---+ + + | | 0 | AN Bite | | | | 7 | Block | | | | 5 | | | | | 8 | | | +----+---+ + + | | 0 | Antibiotic | | | | 7 | Given | | | | 5 | | | | | 8 | | | +----+---+ + + | | 0 | Godwin | | | | 7 | 43-degrees | | | | 5 | | | | | 8 | | | +----+---+ + + | | 0 | Pre-Procedu | | | | 7 | ral Timeout | | | | 5 | Completed | | | | 8 | | | +----+---+ + + | | 0 | First | | | | 7 | Inc/Proc St | | | | 5 | | | | | 8 | | | +----+---+ + + | | 0 | Godwin off | | | | 8 | | | | | 5 | | | | | 7 | | | +----+---+ + + | | 0 | Breathing | | | | 8 | Spontaneous | | | | 5 | ly | | | | 7 | | | +----+---+ + + | | 0 | An Stop | Patient handed off to recovery nurse. | | | 0 | | | | | 4 | | | +----+---+ + + +------+ | Meds | +------+ + + + | Name | Total | + + + | Fentanyl | 100 mcg | + + + | lidocaine 2% (PF) | 40 mg | + + + | propofol | 200 mg | + + + | propofol | 205.54 mg | + + + | dexamethasone | 4 mg | + + + | ondansetron | 4 mg | + + + | ertapenem (INVanz) 1 g in sodium | 1 g | | chloride 0.9% 50 mL IVPB | | + + + | lactated ringers (LR) infusion | 1,250 mL | + + + + + [...] + + + | Wound | 06/20/18; 0954; Incision; | 06/20/18 0954 by | | | | Bilateral; abdomen | Misael Lee RN | | +--------+ + + + | Periph | 01/03/19; 0726; Right; Hand; | 01/03/19 07 by | 01/03/19 1220 by | | eral | [id number] catheter system; | Kamila Law RN | Kristi Veloz RN | | IV | 20 gauge, 1 1/4 in length; 0; | | | | | distraction, tolerated well; no | | | | | longer indicated, removed per | | | | | physician, catheter/device | | | | | intact; short term use; 01/03/19; | | | | | 1220 | | | +--------+ + + + | Airway | Placement Date: 01/03/19; | 01/03/19 075 by | 01/03/19 09 by | | | Placement Time: 0750 (created via | Lazaro Zaragoza | Stoney Nunez RN | | | procedure documentation); Mask | MD [place] | | | | Ventilation: EZ; Attempts: 1; | | | | | Airway Type: laryngeal mask; | | | | | Size: 4; Trauma: none; Placement | | | | | Check: bilateral chest rise, | | | | | breath sounds equal bilaterally; | | | | | Removal: per protocol, removed by | | | | | RODNEY; Removal Date: 01/03/19; | | | | | Removal Time: 0909 | | | +--------+ + + + | Urethr | 01/03/19; 0853; indicated due to | 01/03/19 0853 by | 01/03/19 1215 by | | al | specific surgical procedure; All | Misael Lee RN | Kristi Veloz RN | | Cathet | elements; All elements; All | | | | er | elements; latex; 22; Hematuria; | | | | | 1; 30; 10; tolerated well; | | | | | urethral catheter removed; short | | | | | term use; 01/03/19; 1215 | | | +--------+ + + + [...] 11/12/ | Office | Sleep Medicine | [place], Laith D, PA | | | 2020 | Visit | | [address] | | | | | | [place] | | | | | | [address] | | | | | | | | +--------+---------+ + + + documented as of this encounter Procedures + +--------+ + + + | Procedure Name | Priori | Date/Time | Associated Diagnosis | Comments | | | ty | | | | + +--------+ + + + | ANE AIRWAY NOTE | Routin | 01/03/2019 | | Results for this | | | e | 8:01 AM | | procedure are in the | | | | PDT | | results section. | + +--------+ + + + documented in this encounter Results Airway (01/03/2019 8:01 AM PDT) + + + | Narrative | Performed At | + + + | Lazaro Brar MD 01/03/2019 8:01 Anesthesia Airway | | | Placement 01/03/2019 7:50 Preprocedure check: patient | | | identified, suction, airway equipment checked, oxygen, airway | | | assessed and patient reassessment prior to induction Mask | | | ventilation: easy Attempts: 1 Airway type: laryngeal mask Size: 4 | | | Cuffed: cuffed Route, reference point: center of mouth Tube | | | secured with: adhesive tape Trauma: none Tube placement | | | verification: bilateral chest rise and equal bilateral breath sounds | | | Performing provider: Lazaro Brar MD Please see | | | intraoperative grid for any additional medication documentation. | | + + + + + | Procedure Note | + + | Lazaro Brar MD - 01/03/2019 8:01 AM PDT Anesthesia Airway | | Khoeudzry59/10/2019 7:50Preprocedure check: patient identified, suction, airway | | equipment checked, oxygen, airway assessed and patient reassessment prior to | | inductionMask ventilation: easyAttempts: 1Airway type: laryngeal maskSize: 4Cuffed: | | cuffedRoute, reference point: center of mouthTube secured with: adhesive tapeTrauma: | | noneTube placement verification: bilateral chest rise and equal bilateral breath | | soundsPerforming provider: Ashly Barron see intraoperative grid for | | any additional medication documentation. | |Cuffed: cuffed | |Route, reference point: center of mouth | |Tube secured with: adhesive tape | |Trauma: none | |Tube placement verification: bilateral chest rise and equal bilateral breath sounds | |Performing provider: Lazaro Brar MD | | | | | | | |Please see intraoperative grid for any additional medication documentation. | + + documented in this encounter Visit Diagnoses Not on filedocumented in this encounter Administered Medications + +--------+ +------+------+------+ | Medication Order | MAR | Action | Dose | Rate | Site | | | Action | Date | | | | + +--------+ +------+------+------+ | dexamethasone (PF) 10 mg/mL | Given | 01/04/20 | 4 mg | | | | injection Intravenous, PRN, | | 19 7:54 | | | | | Starting Jemma 01/03/19 at 0754, | | AM PDT | | | | | Anesthesia Intra-op | | | | | | + +--------+ +------+------+------+ +---+---+ | | | +---+---+ + +---------+ +-----+---+---+ | ertapenem (INVanz) 1 g in | New Bag | 01/04/20 | 1 g | | | | sodium chloride 0.9% 50 mL IVPB | | 19 7:58 | | | | | 1 g, Intravenous, Administer over | | AM PDT | | | | | 30 Minutes, Prior to Incision, | | | | | | | Starting Jemma 01/03/19 at 0243, | | | | | | | For 1 dose, Activate system and | | | | | | | mix before use., Pre-op, | | | | | | | Indications: Surgical Prophylaxis | | | | | | + +---------+ +-----+---+---+ +---+---+ | | | +---+---+ + +-------+ +--------+---+---+ | fentaNYL (PF) injection PRN, | Given | 01/04/20 | 25 mcg | | | | Starting Jemma 01/03/19 at 0749, | | 19 8:48 | | | | | Anesthesia Intra-op | | AM PDT | | | | + +-------+ +--------+---+---+ +-------+ +--------+---+---+ | Given | 01/04/20 | 25 mcg | | | | | 19 8:00 | | | | | | AM PDT | | | | +-------+ +--------+---+---+ | Given | 01/04/20 | 50 mcg | | | | | 19 7:49 | | | | | | AM PDT | | | | +-------+ +--------+---+---+ +---+---+ | | | +---+---+ + +---------+ +---+-------+---+ | lactated ringers (LR) [...] | | | | + + +--------+-------+---+ +---+---+ | | | +---+---+ + +-------+ +-------+---+---+ | lidocaine (PF) 2% injection | Given | 01/04/20 | 40 mg | | | | PRN, Starting [facility] 01/03/19 at | | 19 7:49 | | | | | 0749, Anesthesia Intra-op | | AM PDT | | | | + +-------+ +-------+---+---+ +---+---+ | | | +---+---+ + +-------+ +------+---+---+ | ondansetron (ZOFRAN) injection | Given | 01/04/20 | 4 mg | | | | PRN, Starting Jemma 01/03/19 at | | 19 8:48 | | | | | 0848, Anesthesia Intra-op | | AM PDT | | | | + +-------+ +------+---+---+ +---+---+ | | | +---+---+ + +-------+ +--------+---+---+ | propofol (DIPRIVAN) injection | Given | 01/04/20 | 200 mg | | | | Intravenous, PRN, Starting Jemma | | 19 7:49 | | | | | 01/03/19 at 0749, Anesthesia | | AM PDT | | | | | Intra-op | | | | | | + +-------+ +--------+---+---+ +---+---+ | | | +---+---+ + +---------+ + +-------+---+ | propofol (DIPRIVAN) injection | New Bag | 01/04/20 | 37.5 | 20.9 | | | Intravenous, CONTINUOUS PRN, | | 19 7:54 | mcg/kg/m | mL/hr | | | Starting Jemma 01/03/19 at 0754, | | AM PDT | in | | | | Anesthesia Intra-op | | | | | | + +---------+ + +-------+---+ +---+---+ | | | +---+---+ documented in this encounter"
--- OUTSIDE RECORDS SUMMARY | ~2019-08-23 | XMS | Encounter Summary ---
Demographics + + + | Address | [address] | | | [place] [address] | + + + | Home Phone [...] | Author | [facility] | | | and Jadenana | + + + | Organization | [facility] [...] | | | | | [place] [address] | | + + + + + Care Team Providers + +------+ + | Care Production Control Expediter Name | Role | Phone | + +------+ + | Lexie Cagle | PCP | | | FERMENTER HELPER | | | + +------+ + Reason for Visit + + + | Reason | Comments | + + + | Back Pain | | + + + Encounter Details +--------+ + + + + | Date | Type | Department | Care Team | Description | +--------+ + + + + | 12/14/ | Telephone | [facility] | Lexie Cagle | Back Pain | | 2019 | | MEDICINE [address] | [address] | | | [address] [place] | [address] [place] | | | | | [place] [address] | [place] [address] | | | | | [phone] | [phone] | | | | | | | [...] | Visit | | [address] | | | | | | [place] | | | | | | [address] | | | | | | | | +--------+---------+ + + + documented as of this encounter Visit Diagnoses + + | Diagnosis | + + | Acute right-sided low back pain without sciatica - Primary | + + documented in this encounter"
--- OUTSIDE RECORDS SUMMARY | ~2019-08-23 | XMS | Encounter Summary ---
Demographics + + + | Address | [address] | | | [place] [address] | + + + | Home Phone | | + + + | Preferred Language | Unknown | + + + | Marital Status | Single | + + + | Voodoo Affiliation | ORTHODOX | + + + [...] Team Providers + +------+ + | Care Group Director Experience Name | Role | Phone | + +------+ + | Jose Hameed MD | PCP | | + +------+ + Encounter Details +--------+ + + + + | Date | Type | Department | Care Team | Description | +--------+ + + + + | 12/16/ | Telephone | Neurology at | Christian Maldonado MD | | | 2016 | | [place] [facility] & | [address] | | | | | Healing [address] | [place], | | | | | [place] Mailcode: CH8C | [place] [address] | | | | | [facility] | [phone] | | | | | and Healing, | | | | | | | | | | | | [place], [place] | | | | | | [address] | | | | | | [phone] | | | +--------+ + + + [...] | | | | | | [place] [address] | | +--------+ + + + + documented as of this encounter Visit Diagnoses Not on filedocumented in this encounter"
--- OUTSIDE RECORDS SUMMARY | ~2019-08-23 | XMS | Encounter Summary ---
Demographics + + + | Address | [address] | | | [place] [address] | + + + | Home Phone | | + + + | Preferred Language | Unknown | + + + | Marital Status | | + + + | Jehovah'S Witness Affiliation | Unknown | + + + | Race | Unknown | + + + | Ethnic Group | Unknown | + + + Author + + + | Author | [facility] | | | and Jadenana | + + + | Organization | [facility] | [...] | | | | | [place] [address] | | + + + + + Care Team Providers + +------+ + | Care Environmental Director Name | Role | Phone | + +------+ + | Lexie Cagle | PCP | | | HI TEACHER | | | + +------+ + Reason for Visit + + + | Reason | Comments | + + + | Surgery Appointment | | + + + Encounter Details +--------+ + + + + | Date | Type | Department | Care Team | Description | +--------+ + + + + | 06/13/ | Telephone | [facility] | Michael Fernandes | Surgery Appointment | | 2019 | | [address] | MD [address] | | | | | [place] | [place] | | | | | [address] | [address] | | | | | [phone] | | | +--------+ + + + [...] 2019 | Visit | | [address] | | | | | | [place] | | | | | | [address] | | | | | | | | +--------+---------+ + + + documented as of this encounter Visit Diagnoses Not on filedocumented in this encounter"
--- OUTSIDE RECORDS SUMMARY | ~2019-08-23 | XMS | Encounter Summary ---
Demographics + + + | Address | [address] | | | [place] [address] | + + + | Home Phone [...] [facility] | | | and Jadenana | + + + | Organization | [facility] | [...] | | | | | [place] [address] | | + + + + + Care Team Providers + +------+ + | Care Treater Name | Role | Phone | + +------+ + | Lexie Cagle | PCP | | | GROUNDS MAINTENANCE WORKER | | | + +------+ + Reason for Visit + + + | Reason | Comments | + + + | Establish Care | | + + + Encounter Details +--------+---------+ + + + | Date | Type | Department | Care Team | Description | +--------+---------+ + + + | 04/20/ | Office | [facility] | Lexie Cagle | Encounter for | | 2019 | Visit | MEDICINE [address] | [address] | medical examination | | | | [facility] | [facility] | to establish care | | | | [place] [address] | [place] [address] | (Primary Dx); | | | | [phone] | [phone] | Hypoglycemia; RLS | | | | | | (restless legs | | | | | | syndrome); CHRISTEN | | | | | | (obstructive sleep | | | | | | apnea); Paroxysmal | | | | | | atrial fibrillation | | | | | | (HCC); Iron | | | | | | malabsorption; | | | | | | Multiple sclerosis | | | | | | (HCC); Acute pain of | | | | [...] | | | | | Calculus of kidney; | | | | | | Mild episode of | | | | | | recurrent major | | | | | | depressive disorder | | | | | | ([facility]); | | | | | | Psychophysiological | | | | | | insomnia | +--------+---------+ + + + Social History [...] + + + | Blood Pressure | 128/80 | 04/20/2018 1:58 PM | | | | | PST | | + + + + + | Pulse | 82 | 04/20/2018 1:58 PM | | | | | PST | | + + + + + | Temperature | 36.9 C (98.4 F) | 04/20/2018 1:58 PM | | | | | PST | | + + + + + | Respiratory Rate | 18 | 04/20/2018 1:58 PM | | | | | PST | | + + + + + | Oxygen Saturation | 96% | 04/20/2018 1:58 PM | | | | | PST | | + + + + + | Inhaled Oxygen | - | - | | | Concentration | | | | + + + + + | Weight | 91.5 kg (201 lb 11.5 | 04/20/2018 1:58 PM | | | | oz) | PST | | + + + + + | Height | 177.8 cm (5' 10") | 04/20/2018 1:58 PM | | | | | PST | | + + + + + | Body Mass Index | 28.94 | 04/20/2018 1:58 PM | | | | | PST | | + + + + + documented in this encounter Progress Notes Lexie Cagle, SOFIA - 04/20/2018 2:00 PM PSTFormatting of this note might be di fferent from the original. Subjective: Mian Marquez is a 68 y.o. male here to Establish Care. He recently relocated from [place] to [place] to be closer to his daughter and grandchildren. Mian has a complex medical history including secondary progressive MS diagnosed in 1997, m anaged by Dr. Maldonado at [facility]. Neurogenic badder with detrusor instability and incontinence-has established with Dr. Fernandes. Chronic back pain with implanted medtronic spinal stimulato r, history of gastric bypass as well as lap band with associated nutritional deficiencies (r eceives every 2 month infusions of venofer with IM B12), and depression with one failed suic maribel attempt (attempted to OD on oxycodone). He is planning on continuing to follow up with his specialists, but would like a PCP closer to his homebase. His depression is poorly controlled at this time and he feels like his move from [place] h as made it much worse. He is established with a psychiatrist in [place] and a counselor in [place]. He states that he is not currently suicidal but feels like he is "on the edge". His dog keeps him safe from self harm. His medications are currently being titrated, but he has failed effexor and wellbutirin. He started cymbalta just 2 weeks ago. He is scheduled to see psychiatry on 04/27/18. He would like to try to find a job, as he feels like he ruvalcaba s a lot better mentally when he is busy. 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 He has a history of sleep apnea but is not currently using his CPAP. Has been having intermittent issues with hypoglycemia because he reports that he never feel s like eating. Glucose has been in the 30s but responds quickly to glucose administration. He keeps candy with him to ensure that he can manage any symptoms he has. Does not check gl ucose regularly. Had one transient episode of Afib following his attempted OD with oxycodone. He was starte d on eliquis, then transitioned to warfarin for cost reasons, but has discontinued any antic oagulation as he does not feel that he needs it since he has not had any further issues with afib. He did have a provoked PE in 1976 following a surgery. Is planning on having left hand surgery with Dr. Sepulveda at [facility] in [place] for scapholunate dissociation of the left wrist. Surgery is not yet scheduled. Health maintenance: Immunizations: influenza 03/27/17, PCV13 12/26/15, PPSV23 03/27/14 Last CRCS: 06/2016 "Normal" Next due: 06/2019 PSA: per uro The patient or their surrogate filled out the HRA and the responses were incorporated into the notes below. GENERAL HEALTH 1. How would you describe your general health? : Fair 2. How would you rate your health compared to others your age?: Same HEARING AND VISION 1. Do you feel that a hearing or vision difficulty limits or hampers your personal life?: N o 2. Do you wear hearing aids?: No 3. Do you wear glasses?: No FUNCTIONAL AND ACTIVITIES OF DAILY LIVING 1. Do you need help with dressing, eating, bathing or going to the bathroom?: No 2. Do you need help with preparing meals, transportation, shopping, managing your finances, or taking your medicine?: No 3. Do you drive?: Yes 4. Have you ever been told that you should stop driving?: No HOME SAFETY SCREENING: Does your home have throw rugs, poor lighting, or a slippery bathtub or shower?: (!) Yes Fall Risk Screening ([facility]) 1. Have you fallen in the past year?: No 2. Do you feel unsteady when standing or walking?: No 3. Do you worry about falling?: (!) Yes 4. Do you use (or were you told to use) a cane or walker to get around safely?: (!) Yes 5. Do you have to steady yourself by holding onto furniture when moving about your home?: ( !) Yes 6. Do you need to push with your hands to stand up from a chair?: No 7. Do you have trouble stepping up onto a curb?: No 8. Do you often have to beckman to the toilet?: No 9. Have you lost some of the feeling in your feet?: No 10. Do you take any medicine that makes you feel light-headed or tired?: No 11. Do you take medicine to help you sleep or improve your mood?: No 12. Do you often feel sad or depressed?: No STEADI Fall risk questionnaire score: 4 DIET AND EXERCISE HISTORY 1. How is your appetite ? : (!) Fair 2. Do you eat fewer than two times a day? : (!) Yes 3. Do you eat at least 2 serving of fruits and vegetables per day?: (!) No 4. How many times per week do you exercise? : (!) 0-1 INCONTINENCE SCREENING Do you have trouble holding your bowels or bladder?: (!) Yes ADVANCED CARE PLANNING 1. Do you have an Advanced Directive?: No 2. Have you completed a POLST form?: (!) No DEPRESSION SCREENING PHQ2 Screening: Negative (04/20/181409) 1. Little interest/pleasure in doing things? : Several days (04/20/181409) 2. Feeling down, depressed/hopeless?: Several days (04/20/181409) Outpatient Encounter Prescriptions as of 04/20/2018 Medication Sig Dispense Refill cyanocobalamin (VITAMIN B-12) 1,000 mcg/mL injection 1,000 mcg. DULoxetine (CYMBALTA) [address] capsule Take 30 mg by mouth Daily. econazole 1% cream econazole 1 % topical cream Ergocalciferol (VITAMIN D2) 2000 units TABS Vitamin D2 50,000 unit capsule HYDROcodone-acetaminophen (NORCO) 5-325 mg per tablet Take 1-2 tablets by mouth every 4 hours as needed for Pain. 10 tablet 0 [DISCONTINUED] nitrofurantoin (MACROBID) 100 mg capsule Macrobid 100 mg capsule Take 1 capsule twice a day by oral route for 7 days. OXYBUTYNIN CHLORIDE PO Take 1 tablet by mouth. Patient taking 15 mg daily rOPINIRole (REQUIP) 2 MG tablet Take 2 mg by mouth as needed. traZODone (DESYREL) 100 mg tablet Take 100 mg by mouth nightly. No facility-administered encounter medications on file as of 04/20/2018. Allergies No active allergies Intolerance No active intolerances/contraindications Past Medical History: Diagnosis Date Hypertension patient denies ever having HTN; states had a one time occurance of A-fib Multiple sclerosis (HCC) Past Surgical History: Procedure Laterality Date BACK SURGERY nerve stimulators CYSTOSCOPY N/A 04/19/2018 Procedure: Cystoscopy, bladder Botox, injection of urethral bulking agent; Surgeon: Gina Fernandes MD; Location: [facility] MAIN OR GASTRIC BYPASS SURGERY 2001 2 x KNEE SURGERY Bilateral LAP BAND 2010 urinary stimulator 2005 Family History Problem Relation Age of Onset [...] narrative on file Review of Systems Constitutional: Negative for chills, fever and malaise/fatigue. HENT: Negative for tinnitus. Eyes: Negative for blurred vision and double vision. Respiratory: Negative for cough, shortness of breath and wheezing. Cardiovascular: Negative for chest pain, palpitations, orthopnea and leg swelling. Gastrointestinal: Negative for abdominal pain, constipation, diarrhea, heartburn and nausea . Genitourinary: Negative for dysuria and urgency. Musculoskeletal: Positive for back pain. Skin: Negative for itching and rash. Neurological: Negative for dizziness, tingling and headaches. Psychiatric/Behavioral: Positive for depression. Negative for suicidal ideas. The patient i s not nervous/anxious and does not have insomnia. Objective: PHYSICAL EXAM VITAL SIGNS: BP 128/80 | Pulse 82 | Temp 36.9 C (98.4 F) (Temporal) | Resp 18 | Ht 1.778 m (5' 10") | Wt 91.5 kg (201 lb 11.5 oz) | SpO2 96% | BMI 28.94 kg/m Constitutional: Well developed, casually and appropriately dressed man in no acute distress , Non-toxic appearance. HENT: Normocephalic, Atraumatic, Bilateral external ears normal, TMs normal. Oropharynx mo ist, No oral exudates, Nose normal. Eyes: PERRLA, EOMI, Conjunctiva normal, No discharge. Neck: No tenderness, Supple, No laryngeal stridor. No thyromegaly or carotid bruit. Lymphatic: No lymphadenopathy noted. Cardiovascular: Normal heart rate, Normal rhythm, No murmurs, No rubs, No gallops. JVP not elevated. Thorax & Lungs: Clear to auscultation and percussion, respirations unlabored, No chest tend erness. Abdomen: Bowel sounds normal, Soft, No tenderness, No masses, No hepatosplenomegaly. Skin: Warm, Dry, No erythema, No rash. Back: No tenderness, No CVA tenderness. Extremities: Intact distal pulses, No edema, No tenderness, No cyanosis, No clubbing. Neurologic: Alert & oriented x 3, Normal motor function, No focal deficits noted. Psychiatric: Affect normal, Mood normal. Assessment/Plan: 1. Encounter for medical examination to establish care Discussed age, gender and family history appropriate screening guidelines. Personalized hea lth advice including maintaining a healthy body weight, physical activity, smoking cessation , fall prevention and nutrition discussed. 2. Hypoglycemia Recommended eating 5-6 small meals throughout the day to maintain stable glucose levels as well as keeping snacks with him as he travels. 3. RLS (restless legs syndrome) Well controlled with requip. 4. CHRISTEN (obstructive sleep apnea) Nonadherent with CPAP. Briefly counseled patient on the importance of nightly use. 5. Paroxysmal atrial fibrillation (HCC) Likely caused by opioid OD as he has not had any further sx. He is declining anticoagulati on but remains on daily ASA. 6. Iron malabsorption S/p gastric bypass, maintained with bimonthly venofer infusions. 7. Multiple sclerosis (HCC) Continue to follow with neurology. 8. Acute pain of left knee 9. Chronic right-sided low back pain without sciatica Continue to follow with pain specialist. 10. Disi (dorsal intercalated segment instability), left 11. Left hand pain Follows with Dr Sepulveda at [facility] 12. Neurogenic bladder 13. Calculus of kidney Continue to follow with Dr. Fernandes 14. Mild episode of recurrent major depressive disorder (HCC) 15. Psychophysiological insomnia Follows with psychiatry and counseling. Return in about 3 months (around 07/19/2018). Patient understands, accepts, and agrees with this plan. Over 60 minuntes spent in face to face time with this patient today. > 50% of time alcohol and drug counselor ing regarding the listed conditions, options for treatment, and possible risks, and coordina ting care. Lexie Cagle DNP, SOFIA, AGNP-CElectronically signed by SOFIA Sky 04/20/2018 5:38 PM PSTdocumented in this encounter Plan of [...] | + +--------+ + + + | EXTERNAL: | Routin | 07/20/2016 | | Results for this | | COLONOSCOPY | e | | | procedure are in the | | | | | | results section. | + +--------+ + + + | EXTERNAL LAB: | Routin | 07/22/2014 | | Results for this | | HEPATITIS C AB | e | | | procedure are in the | | | | | | results section. | + +--------+ + + + documented in this encounter Results EXTERNAL: COLONOSCOPY (07/20/2016) + + + + + + | Component | Value | Ref Range | Performed | Pathologist | | | | | At | Signature | + + + + + + | Colonoscopy | adenomatous polyps, | | | | | | repeat 3 years | | | | | Impression, | | | | | | External | | | | | + + + + + + External Lab: Hepatitis C Ab (07/22/2014) + + + + + + | Component | Value | Ref Range | Performed | Pathologist | | | | | At | Signature | + + + + + + | HCV, | Non-Reactive | Non-Reactive | | | | External | | | | | + + + + + + documented in this encounter Visit Diagnoses + + | Diagnosis | + + | Encounter for medical examination to establish care - Primary | + + | Hypoglycemia Hypoglycemia, unspecified | + + | RLS (restless legs syndrome) Restless legs syndrome (RLS) | + + | CHRISTEN (obstructive sleep apnea) Obstructive sleep apnea (adult) (pediatric) | + + | Paroxysmal atrial fibrillation (HCC) Atrial fibrillation | + + | Iron malabsorption Other specified intestinal malabsorption | + + | Multiple sclerosis (HCC) Multiple sclerosis | + + | Acute pain of left knee | + + | Chronic right-sided low back pain without sciatica | + + | Disi (dorsal intercalated segment instability), left | + + | Left hand pain Pain in limb | + + | Neurogenic bladder Neurogenic bladder, NOS | + + | Calculus of kidney | + + | Mild episode of recurrent major depressive disorder (HCC) | + + | Psychophysiological insomnia Persistent disorder of initiating or maintaining sleep | + + documented in this encounter
--- OUTSIDE RECORDS SUMMARY | ~2019-08-23 | XMS | Encounter Summary ---
Demographics + + + | Address | [address] | | | [place] [address] | + + + | Home Phone | | + + + | Preferred Language | Unknown | + + + | Marital Status | Single | + + + | Yazdanism Affiliation | WORSHIP | + + + | Race | White | + + + | Ethnic Group | Not or | + + + Author + + + | Author | [facility] | + + + | Organization | [facility] | + + + | Address | Unknown | + + + | Phone | Unavailable | + + + Support + + +---------+ + | Name | Relationship | Address | Phone | + + +---------+ + | Theodore Marquez | ECON | Unknown | | + + +---------+ + Care Team Providers + +------+ + | Care Inletter Name | Role | Phone | + +------+ + PCP | Unavailable | + +------+ + Encounter Details +--------+ + + + + | Date | Type | Department | Care Team | Description | +--------+ + + + + | 03/16/ | Results | Medical | Chris Ro MD | | | 2002 | Only | Dermatology [address] | [address] | | | | | [address] | [place], [place] | | | | | Mailcode: [id number] | [address] | | | | | Outpatient Clinic | [phone] | | | | | [facility], Room [address] | | | | | | [place], [place] | | | | | | [address] | | | | | | [phone] | | | +--------+ + + + [...] | | | | | | [place] [address] | | +--------+ + + + + documented as of this encounter Procedures + +--------+ + + + | Procedure Name | Priori | Date/Time | Associated Diagnosis | Comments | | | ty | | | | + +--------+ + + + | TSH | Routin | 03/16/2003 | | Results for this | | | e | 8:35 AM | | procedure are in the | | | | PST | | results section. | + +--------+ + + + documented in this encounter Results TSH-THYROID STIM HORMONE (03/16/2003 8:35 AM PST) + + + + + + | Component | Value | Ref Range | Performed | Pathologist | | | | | At | Signature | + + + + + + | TSH | 1.50Comment: Test | 0.28 - 5.00 | | | | | performed by [facility] | [facility] | | | | | [facility] | | | | | | Laboratories. | | | | + + + + + + + + | Specimen | + + | | + + + + + + + | Performing | Address | City/State/Zipcode | Phone Number | | Organization | | | | + + + + + | [facility] | [address] | [place] [address] | | | LABORATORY | | | | + + + + + documented in this encounter Visit Diagnoses Not on filedocumented in this encounter"
--- OUTSIDE RECORDS SUMMARY | ~2019-08-23 | XMS | Encounter Summary ---
Demographics + + + | Address | [address] | | | [place] [address] | + + + | Home Phone [...] | Author | [facility] | | | and Jadenana | + + + | Organization | [facility] | | | and Jadenana [...] | | | | | [place] [address] | | + + + + + Care Team Providers + +------+ + | Care Decision Science Analyst Name | Role | Phone | + +------+ + | Lexie Cagle | PCP | | | PERFORMANCE IMPROVEMENT ANALYST | | | + +------+ + [...] Medication Refill | | 2019 | | [facility] [address] | [address] | | | | | [facility] | [facility] | | | | | [place] [address] | [place] [address] | | | | | [phone] | [phone] | | | | | | | [...] 2019 | Visit | | [address] | | | | | | [place] | | | | | | [address] | | | | | | | | +--------+---------+ + + + documented as of this encounter Visit Diagnoses Not on filedocumented in this encounter"
--- OUTSIDE RECORDS SUMMARY | ~2019-08-23 | XMS | Encounter Summary ---
Demographics + + + | Address | [address] | | | [place] [address] | + + + | Home Phone [...] | Author | [facility] | | | and Jadenana | + + + | Organization | [facility] | | | and [...] | | | | | [place] [address] | | + + + + + Care Team Providers + +------+ + | Care Volcanology Teacher Name | Role | Phone | + +------+ + | Lexie Cagle | PCP | | | COUNTER HELP | | | + +------+ + Reason for Visit +--------+ + | Reason | Comments | +--------+ + | Other | blood pressure reading | +--------+ + Encounter Details +--------+ + + + + | Date | Type | Department | Care Team | Description | +--------+ + + + + | 02/01/ | Telephone | [facility] | Lexie Cagle | Other (blood | | 2019 | | MEDICINE [address] | [address] | pressure reading) | | | | [facility] | [facility] | | | | | [place] [address] | [place] [address] | | | | | [phone] | [phone] | | | | | | | [...] 2019 | Visit | | [address] | | | | | | [place] | | | | | | [address] | | | | | | | | +--------+---------+ + + + documented as of this encounter Visit Diagnoses + + | Diagnosis | + + | Flank pain - Primary Abdominal pain, unspecified site | + + documented in this encounter"
--- OUTSIDE RECORDS SUMMARY | ~2019-08-23 | XMS | Encounter Summary ---
Demographics + + + | Address | [address] | | | [place] [address] | + + + | Home Phone [...] | Author | [facility] | | | and Jadenana | + + + | Organization | [facility] | | | and [...] | | | | | [place] [address] | | + + + + + Care Team Providers + +------+ + | Care Senior Systems Developer Name | Role | Phone | + +------+ + | Lexie Cagle | PCP | | | WILDLIFE AND GAME PROTECTOR | | | + +------+ + Reason for Visit + + + | Reason | Comments | + + + | Neurogenic Bladder | | + + + Encounter Details +--------+ + + + + | Date | Type | Department | Care Team | Description | +--------+ + + + + | 04/20/ | Clinical | [facility] | Michael Fernandes | Neurogenic bladder | | 2019 | Support | [address] | MD Yaw [address] | (Primary Dx) | | | | [place] | PRECIOUS [place] | | | | | [address] | [address] | | | | | [phone] | | | +--------+ + + + [...] documented as of this encounter Progress Notes Rekha Wilson RN - 04/20/2018 10:30 AM PSTPatient presents to clinic for catheter remova l POD #1. Dark yellow clear urine draining into bag. 18F chapa catheter removed without diff iculty. Patient self caths and will do so when he gets home to [place]. Patient denies rose mary n at this time only some irritation of the tip of his penis. Pt will return for post op appo intment and will call us with any questions or concerns in the meantime..................... ........................Rekha Wilson RN on 04/20/18 at 12:11 documented in this en counter Plan of Treatment +--------+---------+ + + + | Date | Type | Specialty | Care Team | Description | +--------+---------+ + + + | 11/12/ | Office | Sleep Medicine | Laith Sheffield PA | | | 2019 | Visit | | [address] | | | | | | [place] | | | | | | [id number] | | | | | | | | +--------+---------+ + + + documented as of this encounter Visit Diagnoses + + | Diagnosis | + + | Neurogenic bladder - Primary Neurogenic bladder, NOS | + + documented in this encounter"
--- OUTSIDE RECORDS SUMMARY | ~2019-08-23 | XMS | Encounter Summary ---
Demographics + + + | Address | [address] | | | [place] [address] | + + + | Home Phone | | + + + | Preferred Language | Unknown | + + + | Marital Status | Single | + + + | Rastafari Affiliation | MORAVIAN | + + + | Race | White | + + + | Ethnic Group | Not or | + + + Author + + + | Author | [facility] | + + + | Organization | [facility] | + + + | Address | Unknown | + + + | Phone | Unavailable | + + + Support + + +---------+ + | Name | Relationship | Address | Phone | + + +---------+ + | Theodore Marquez | ECON | Unknown | | + + +---------+ + Care Team Providers + +------+ + | Care Centrifugal Operator Name | Role | Phone | [...] | | | at [facility] | [facility] | | | | | [address] | [place] [address] | | | | | [address] | | | | | | [place], [address] [place] [address] | | | | | | [place], [place] | | | | | | [address] | | | | | | [phone] | | | +--------+ + + + [...] | | | | | | [place] [address] | | +--------+ + + + + [...] + + | [facility] | [address] | [place], [place] | | | CARDIOLOGY | [address] | [address] | | + + + + + documented in this encounter Visit Diagnoses Not on filedocumented in this encounter"
--- OUTSIDE RECORDS SUMMARY | ~2019-08-23 | XMS | Encounter Summary ---
Demographics + + + | Address | [address] | | | [place] [address] | + + + | Home Phone | | + + + | Preferred Language | Unknown | + + + | Marital Status | Single | + + + | Christianity Affiliation | MORAVIAN | + + + | Race | White | + + + | Ethnic Group | Not or | + + + Author + + + | Author | [facility] | + + + | Organization | [facility] | + + + | Address | Unknown | + + + | Phone | Unavailable | + + + Support + + +---------+ + | Name | Relationship | Address | Phone | + + +---------+ + | Theodore Marquez | ECON | Unknown | | + + +---------+ + Care Team Providers + +------+ + | Care Senior Health Physics Technician Name | Role | Phone | + +------+ + | Jose Hameed MD | PCP | | + +------+ + Reason for Visit + + + | Reason | Comments | + + + | Follow-up visit | 1 yr follow-up : concerns : no | + + + Office Visit - [...] | | | | | | | [facility] | | | [facility] | [facility] | | | | | | | and Healing, | | | | | | | Building 1, | | | | | | | 5th Floor | | | | | | | [place], [place] | | | | | | | [address] | | | | | | | Phone: | | | | | | | [phone] | +--------+--------+ + + + + Encounter Details +--------+---------+ + + + | Date | Type | Department | Care Team | Description | +--------+---------+ + + + | 05/23/ | Office | Plastic and | Neto Lockhart, | 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 [place] Duke | (Primary Dx); BMI | | | | Surgery at [facility] [address] | 29.0-29.9,adult; | | | | [address] | [place], [place] | Essential | | | | Mailcode: [facility] | [address] | hypertension | | | | [facility] | [phone] | | | | | and Healing, | | | | | | Building 1, | | | | | | Floor [place], [place] | | | | | | [address] | | | | | | [phone] | | | +--------+---------+ + + + [...] + + + | Blood Pressure | 158/87 | 05/23/2016 9:40 AM | | | | | PST | | + + + + + | Pulse | 69 | 05/23/2016 9:40 AM | | | | | PST | | + + + + + | Temperature | - | - | | + + + + + | Respiratory Rate | - | - | | + + + + + | Oxygen Saturation | 100% | 05/23/2016 9:40 AM | | | | | PST | | + + + + + | Inhaled Oxygen | - | - | | | Concentration | | | | + + + + + | Weight | 93 kg (205 lb) | 05/23/2016 9:40 AM | | | | | PST | | + + + + + | Height | - | - | | + + + + + | Body Mass Index | 29.41 | 09/25/2015 9:58 AM | | | | | PDT | | + + + + + documented in this encounter Patient Instructions Patient Instructions Neto Lockhart MD - 05/23/2016 9:30 AM PSTScar massages. Please follow-up with your PCP for evaluation and management of your high blood pressure. E lectronically signed by Neto Lockhart MD at 05/23/2016 5:33 PM PST documented in this encounter Progress Notes Neto Lockhart MD - 05/23/2016 9:30 AM PSTI was present with the resident during the his tory and exam. I discussed the case with the resident and agree with the findings and plan as documented in the resident s note. Mian Marquez is a 66 year old male status post panniculectomy more than a year ago presente d to clinic complaining of "very unhappy" with the outcome. He stated that his abdomen is b ulging out. The patient stated that he was expecting a flat abdomen. He denied any recurre nt skin rashes along his abdominal skin fold after surgery. BP 158/87 | Pulse 69 | Wt 93 kg (205 lb) | SpO2 100% | BMI 29.41 kg/(m^2) Abdominal incisions are well healed. No gross hernia or seroma. I informed the patient that panniculectomy is to remove excess infraumbilical abdominal ski n and subcutaneous tissue. The goal for panniculectomy is to prevent recurrent intertrigino us skin rashes along his abdominal skin fold. It is not a cosmetic abdominoplasty surgery. Only diet and exercise will help decrease his intra-abdominal volume to help him obtain a "f lat" abdomen. Recommend evaluation and management of his hypertension per his PCP. 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 No longer getting rashes Physical Exam: Last Vitals: BP 158/87 | Pulse 69 | Wt 93 kg (205 lb) | SpO2 100% | BMI 29.41 kg/(m^2) Well appearing male in NAD Lower abdominal incision is well healed, small lateral dog ears present Protuberant abdomen above incision due to intra-abdominal fat present Assessment and Plan: 14 months out from panniculectomy, doing well Intra-abdominal fat more evident without panniculus - instructed on diet/exercise as weight loss is the only way to address this issue Follow up PRN Yue Hernandez MD PGY-4 Plastic and Reconstructive Surgery [facility] pager [phone] documented in this enc ounter Plan of Treatment +--------+ + + + + | Date | Type | Specialty | Care Team | Description | +--------+ + + + + | 10/31/ | Appointment | Hematology & | Onc, Gen [address] | | | 2019 | | Oncology | [address] [place], | | | | | | [place] [address] | | +--------+ + + + + documented as of this encounter Visit Diagnoses + + | Diagnosis | + + | Lipodystrophy - Primary | + + | BMI 29.0-29.9,adult Body Mass Index 29.0-29.9, adult | + + | Essential hypertension | + + documented in this encounter
--- OUTSIDE RECORDS SUMMARY | ~2019-08-23 | XMS | Encounter Summary ---
Demographics + + + | Address | [address] | | | [place] [address] | + + + | Home Phone [...] | [facility] | | | and [place] | + + + | Organization | [facility] | | | and [...] | | | | | [place] [address] | | + + + + + Care Team Providers + +------+ + | Care Poll Clerk Name | Role | Phone | + +------+ + | Lexie Cagle | PCP | | | OPERATIONS ADVISOR | | | + +------+ + Reason for Visit + + + | Reason | Comments | + + + | Surgery Appointment | | + + + Encounter Details +--------+ + + + + | Date | Type | Department | Care Team | Description | +--------+ + + + + | 05/02/ | Telephone | [facility] | Michael Fernandes | Surgery Appointment | | 2019 | | [address] | MD Yaw [address] | | | | | [place] | [place] | | | | | [address] | [address] | | | | | [phone] | | | +--------+ + + + [...] 2019 | Visit | | [address] | | | | | | [place] | | | | | | [address] | | | | | | | | +--------+---------+ + + + documented as of this encounter Visit Diagnoses Not on filedocumented in this encounter"
--- OUTSIDE RECORDS SUMMARY | ~2019-08-23 | XMS | Encounter Summary ---
Demographics + + + | Address | [address] | | | [place] [address] | + + + | Home Phone | | + + + | Preferred Language | Unknown | + + + | Marital Status | Single | + + + | Denominational Affiliation | MANDAEISM | + + + [...] Team Providers + +------+ + | Care Narcotics Detective Name | Role | Phone | + +------+ + PCP | Unavailable | + +------+ + Encounter Details +--------+ + + + + | Date | Type | Department | Care Team | Description | +--------+ + + + + | 02/21/ | Results | | Cristina Stout | | | 2001 | Only | | | | +--------+ + + [...] | | | | | | [place] [address] | | +--------+ + + + + documented as of this encounter Procedures + +--------+ + + + | Procedure Name | Priori | Date/Time | Associated Diagnosis | Comments | | | ty | | | | + +--------+ + + + | BASIC METABOLIC SET | Routin | 02/23/2002 | | Results for this | | (NA, K, CL, TCO2, | e | 5:55 AM | | procedure are in the | | BUN, CR, GLU, CA) | | PST | | results section. | + +--------+ + + + | BASIC METABOLIC SET | Routin | 02/22/2002 | | Results for this | | (NA, K, CL, TCO2, | e | 6:03 AM | | procedure are in the | | BUN, CR, GLU, CA) | | PST | | results section. | + +--------+ + + + | UAFLAVIOSTICK ONLY | Routin | 02/21/2002 | | Results for this | | | e | 8:30 PM | | procedure are in the | | | | PST | | results section. | + +--------+ + + + | BASIC METABOLIC SET | Routin | 02/21/2002 | | Results for this | | (NA, K, CL, TCO2, | e | 7:05 AM | | procedure are in the | | BUN, CR, GLU, CA) | | PST | | results section. | + +--------+ + + + documented in this encounter Results BASIC METABOLIC SET (02/23/2002 5:55 AM PST) + +---------+ + + + | Component | Value | Ref Range | Performed | Pathologist | | | | | At | Signature | + +---------+ + + + | GLUCOSE, | 135 (H) | 65 - 110 mg/dL | [...] +---------+ + + + | POTASSIUM, | 3.6 | 3.5 - 5.1 | [facility] | | | PLASMA | | mmol/L | DEPARTMENT | | | (LAB) | | | OF | | | | | | PATHOLOGY | | + +---------+ + + + | CHLORIDE, | 103 | 98 - 107 mmol/L | [facility] | | | PLASMA | | | DEPARTMENT | | | (LAB) | | | OF | | | | | | PATHOLOGY | | + +---------+ + + + | TOTAL CO2, | 29 | 23 - 29 mmol/L | [facility] | | | PLASMA | | | DEPARTMENT | | | (LAB) | | | OF | | | | | | PATHOLOGY | | + +---------+ + + + | CALCIUM, | 8.6 | 8.5 - 10.5 | [facility] | [...] | + + + + + | [facility] | [address] [facility] [address] | [place] [address] | | | PATHOLOGY | [address] | | | + + + + + | [facility] | [address] [facility] | [place] [address] | | | PATHOLOGY | [address] | | | + + + + + BASIC METABOLIC SET (02/22/2002 6:03 AM PST) + +---------+ + + + | Component | Value | Ref Range | Performed | Pathologist | | | | | At | Signature | + +---------+ + + + | GLUCOSE, | 135 (H) | 65 - 110 mg/dL | [facility] | | | PLASMA | | | DEPARTMENT | | | (LAB) | | | OF | | | | | | PATHOLOGY | | + +---------+ + + + | BUN, PLASMA | 11 | 6 - 20 mg/dL | [facility] | | | (LAB) | | | DEPARTMENT | | | | | | OF | | | | | | PATHOLOGY | | + +---------+ + + + | CREATININE | 1.0 | 0.7 - 1.3 mg/dL | [facility] | | | PLASMA | | | DEPARTMENT | | | (LAB) | | | OF | | | | | | PATHOLOGY | | + +---------+ + + + | SODIUM, | 138 | 136 - 145 | [facility] | | | PLASMA | | mmol/L | DEPARTMENT | | | (LAB) | | | OF | | | | | | PATHOLOGY | | + +---------+ + + + | POTASSIUM, | 3.7 | 3.5 - 5.1 | [facility] | | | PLASMA | | mmol/L | DEPARTMENT | | | (LAB) | | | OF | | | | | | PATHOLOGY | | + +---------+ + + + | CHLORIDE, | 99 | 98 - 107 mmol/L | [facility] | | | PLASMA | | | DEPARTMENT | | | (LAB) | | | OF | | | | | | PATHOLOGY | | + +---------+ + + + | TOTAL CO2, | 29 | 23 - 29 mmol/L | [facility] | | | PLASMA | | | DEPARTMENT | | | (LAB) | | | OF | | | | | | PATHOLOGY | | + +---------+ + + + | CALCIUM, | 8.7 | 8.5 - 10.5 | [facility] | [...] DEPARTMENT OF | [address] | [place] [address] | | | PATHOLOGY | [address] | | | + + + + + | [facility] DEPARTMENT | [address] | [place] [address] | | | PATHOLOGY | [address] | | | + + + + + AP GREEN ONLY (02/21/2002 8:30 PM PST) + + + + + + | Component | Value | Ref Range | Performed | Pathologist | | | | | At | Signature | + + + + + + | COLOR(UR) | Yellow | | [facility] | | | | | | DEPARTMENT | | | | | | OF | | | | | | PATHOLOGY | | + + + + + + | APPEARANCE | Clear | | [facility] | | | | | | DEPARTMENT | | | | | | OF | | | | | | PATHOLOGY | | + + + + + + | GLUCOSE(UR) | Negative | mg/dL | [facility] | | | | | | DEPARTMENT | | | | | | OF | | | | | | PATHOLOGY | | + + + + + + | BILIRUBIN | Negative | | [facility] | | | | | | DEPARTMENT | | | | | | OF | | | | | | PATHOLOGY | | + + + + + + | KETONES | >=80 | mg/dL | [facility] | | | | | | DEPARTMENT | | | | | | OF | | | | | | PATHOLOGY | | + + + + + + | SPECIFIC | 1.020 | 1.005 - 1.030 | [facility] | | | GRAVITY | | | DEPARTMENT | | | | | | OF | | | | | | PATHOLOGY | | + + + + + + | BLOOD | Large | | [facility] | | | | | | DEPARTMENT | | | | | | OF | | | | | | PATHOLOGY | | + + + + + + | PH(UR) | 6.0 | 5.0 - 8.0 | [facility] | | | | | | DEPARTMENT | | | | | | OF | | | | | | PATHOLOGY | | + + + + + + | PROTEIN(LAB | 30 | mg/dL | [facility] | | | ) | | | DEPARTMENT | | | | | | OF | | | | | | PATHOLOGY | | + + + + + + | UROBILINOGE | 1.0 | 0 - 0.2 ABBY | [facility] | | | N | | UNITS | DEPARTMENT | | | | | | OF | | | | | | PATHOLOGY | | + + + + + + | NITRITES | Negative | Negative | [facility] | | | | | | DEPARTMENT | | | | | | OF | | | | | | PATHOLOGY | | + + + + + + | LEUKOCYTE | Negative | Negative | [facility] | | | ESTERASE | | | DEPARTMENT | | | [...] DEPARTMENT OF | [address] | [place], [place] [address] | | | PATHOLOGY | [address] | | | + + + + + | [facility] DEPARTMENT OF | [address] | [place] [address] | | | PATHOLOGY | [address] | | | + + + + + BASIC METABOLIC SET (02/21/2002 7:05 AM PST) + +---------+ + + + | Component | Value | Ref Range | Performed | Pathologist | | | | | At | Signature | + +---------+ + + + | GLUCOSE, | 145 (H) | 65 - 110 mg/dL | [facility] | | | PLASMA | | | DEPARTMENT | | | (LAB) | | | OF | | | | | | PATHOLOGY | | + +---------+ + + + | BUN, PLASMA | 13 | 6 - 20 mg/dL | [facility] | | | (LAB) | | | DEPARTMENT | | | | | | OF | | | | | | PATHOLOGY | | + +---------+ + + + | CREATININE | 1.0 | 0.7 - 1.3 mg/dL | [facility] | | | PLASMA | | | DEPARTMENT | | | (LAB) | | | OF | | | | | | PATHOLOGY | | + +---------+ + + + | SODIUM, | 138 | 136 - 145 | [facility] | | | PLASMA | | mmol/L | DEPARTMENT | | | (LAB) | | | OF | | | | | | PATHOLOGY | | + +---------+ + + + | POTASSIUM, | 4.4 | 3.5 - 5.1 | [facility] | | | PLASMA | | mmol/L | DEPARTMENT | | | (LAB) | | | OF | | | | | | PATHOLOGY | | + +---------+ + + + | CHLORIDE, | 101 | 98 - 107 mmol/L | [facility] [...] +---------+ + + + | CALCIUM, | 8.9 | 8.5 - 10.5 | [facility] | [...] | + + + + + | [facility] | [address] | [place] [address] | | | PATHOLOGY | [address] | | | + + + + + | [facility] | [address] | [place] [address] | | | PATHOLOGY | [address] | | | + + + + + documented in this encounter Visit Diagnoses Not on filedocumented in this encounter"
--- OUTSIDE RECORDS SUMMARY | ~2019-08-23 | XMS | Clinical Summary ---
Demographics + + + | Address | [address] | | | [place] [address] | + + + | Home Phone | | + + + | Preferred Language | Unknown | + + + | Marital Status | Single | + + + | Rastafarian Affiliation | CAODAISM | + + + [...] Team Providers + +------+ + | Care Finishing Pan Operator Name | Role | Phone | + +------+ + | Jose Hameed MD | PCP | | + +------+ + Source Comments TERRELL is fully live on both [facility] and [facility] InPatient.[facility] & [facility] Allergies + + + + + + [...] | | | | | | [place] [address] | | +--------+ + + + + [...] by | | | | | | [address] | | Diogo Fregoso MD | | | | | | /[id number] | | | | | | | | [address] | | | | | | | [...] MD | | | | | | /[id number] | | | | | | | | | | | | | | | | /[id number] | | | | | | | | 13 | + +------+-------+ +--------+--------+--------+ | Lead Adaptor | | | | | | [id number] | | Kit-11/16/2016Implanted: | | | | | | 08-25B | | 11/16/2016 by [employer], | | | | | | / | | Diogo Frank MD (Quantity not on | | | | | | /[id number] | | file) | | | | | | 795 | + +------+-------+ +--------+--------+--------+ + + | Description:Adaptor | | connecting Medtronic leads to | | IPG Nevro spinal cord | | stimulator. Per [employer] | | bank representative, this is NOT | | MRI [...] | MEDICA | xxxxxxxxxxx | 09/25/19 | [phone] | [address] | Medica | | | RE A & | | 08-Pre | 1 | [phone] | re | | | B | | sent | | [place] | | | | | | | | [address] | | + +--------+ +--------+ + +--------+ | [employer] | AARP | xxxxxxxxxxx | 09/25/19 | [phone] | [address] | Indemn | | RETIRED PEOPLE | | | 18-Pre | 9 | [phone] | ity | | | | | sent | | [place], [place] | | | | | | | | [address] | | + +--------+ +--------+ + +--------+ [...] starr | | | 9 (Home) | [address] | + +--------+ +--------+ + + | Mian Marquez | Psych | Self | [birth year] | [address] | | | | | 1950 | [phone] | [place] | | | | | | 9 (Adger) | [address] | + +--------+ +--------+ + + Advance [...]
--- OUTSIDE RECORDS SUMMARY | ~2019-08-23 | XMS | Encounter Summary ---
Demographics + + + | Address | [address] | | | [place] [address] | + + + | Home Phone | | + + + | Preferred Language | Unknown | + + + | Marital Status | | + + + | Congregation Affiliation | Unknown | + + + | Race | Unknown | + + + | Ethnic Group | Unknown | + + + Author + + + | Author | [facility] | | | and [place] | + + + | Organization | [facility] | | | [...] | | | | | [place] [address] | | + + + + + Care Team Providers + +------+ + | Care Learning And Development Administrator Name | Role | Phone | + +------+ + | Lexie Cagle | PCP | | | GUM ROLLING MACHINE TENDER | | | + +------+ + Reason for Visit + + + | Reason | Comments | + + + | Medication Refill | | + + + Encounter Details +--------+--------+ + + + | Date | Type | Department | Care Team | Description | +--------+--------+ + + + | 09/13/ | Refill | [facility] | Lexie Cagle | Medication Refill | | 2019 | | [facility] [address] | [address] | | | | | [facility] | [facility] | | | | | [place] [address] | [place] [address] | | | | | [phone] | [phone] | | | | | | | [...] 2019 | Visit | | [address] | | | | | | [place] | | | | | | [address] | | | | | | | | +--------+---------+ + + + documented as of this encounter Visit Diagnoses Not on filedocumented in this encounter"
--- OUTSIDE RECORDS SUMMARY | ~2019-08-23 | XMS | Encounter Summary ---
Demographics + + + | Address | [address] | | | [place] [address] | + + + | Home Phone | | + + + | Preferred Language | Unknown | + + + | Marital Status | | + + + | Uatsdin Affiliation | Unknown | + + + | Race | Unknown | + + + | Ethnic Group | Unknown | + + + Author + + + | Author | [facility] | | | and [place] | + + + | Organization | [facility] | [...] | | | | | [place] [address] | | + + + + + Care Team Providers + +------+ + | Care Cognos Administrator Name | Role | Phone | + +------+ + | Lexie Cagle | PCP | | | POWER CHISEL OPERATOR | | | + +------+ + [...] right lower | [place], | [address] | | | | | extremity | POWER CHISEL OPERATOR [address] | [place], | | | | | Paroxysmal | [address] | [place] | | | | | atrial | [place], | [address] | | | | | fibrillation | [place] [address] | Phone: | | | | | ([facility]) | Phone: | [phone] | | | | | Procedures | [phone] | Fax: | | | | | VAS Lower | Fax: | [phone] | | | | | Extremity | [phone] | | | | | | Venous Right | | | +--------+--------+ + + + + Encounter Details +--------+ + + + + | Date | Type | Department | Care Team | Description | +--------+ + + + + | 09/12/ | Hospital | [facility] | Lexie Cagle | Swelling of right | | 2019 | Encounter | [facility] | [address] | lower extremity; | | | | [address] [place] | [address] [place] | Paroxysmal atrial | | | | [place], [place] | [place] [address] | fibrillation (HCC) | | | | [address] | [phone] | | | | | [phone] | | | +--------+ + + + [...] [place] | | | | | | [id number] | | | | | | | [...] | | the ordering provider, by the group contract analyst, immediately following the | | | exam. [...] to the ordering provider, by the | |group contract analyst, immediately following the exam. | | | [...]
--- OUTSIDE RECORDS SUMMARY | ~2019-08-23 | XMS | Encounter Summary ---
Demographics + + + | Address | [address] | | | [place] [address] | + + + | Home Phone | | + + + | Preferred Language | Unknown | + + + | Marital Status | Single | + + + | Gnosticist Affiliation | FAITH | + + + | Race | [...] Team Providers + +------+ + | Care Rope Walker Name | Role | Phone | + +------+ + | Trevin Delacruz MD | PCP | | + +------+ + Encounter Details +--------+---------+ + + + | Date | Type | Department | Care Team | Description | +--------+---------+ + + + | 02/24/ | Office | Preoperative | Lang, | Major depressive | | 2015 | Visit | Medicine Clinic at | Trevin Alberts NP [address] | disorder, recurrent | | | | [facility] 4th Floor [address] | [facility] | episode, in partial | | | | [address] [place], [place] | remission ([facility]) | | | | Mailcode: CH4S | [address] | (Primary Dx); | | | | [place] [facility] | [phone] | Anxiety associated | | | | and Healing, | | with depression; | | | | Building 1,4th Floor | | Pre-op evaluation | | | | [place], [place] | | | | | | [address] | | | | | | [phone] | | | +--------+---------+ + + + Anesthesia Record + + [...] + + + | Blood Pressure | 138/80 | 02/24/2015 3:10 PM | | | | | PST | | + + + + + | Pulse | 71 | 02/24/2015 3:10 PM | | | | | PST | | + + + + + | Temperature | 36.7 C (98 F) | 02/24/2015 3:10 PM | | | | | PST | | + + + + + | Respiratory Rate | 15 | 02/24/2015 3:10 PM | | | | | PST | | + + + + + | Oxygen Saturation | 99% | 02/24/2015 3:10 PM | | | | | PST | | + + + + + | Inhaled Oxygen | - | - | | | Concentration | | | | + + + + + | Weight | 89.3 kg (196 lb 12.8 | 02/24/2015 3:10 PM | neck 40cm | | | oz) | PST | | + + + + + | Height | 175.3 cm (5' 9") | 02/24/2015 3:10 PM | | | | | PST | | + + + + + | Body Mass Index | 29.06 | 02/24/2015 3:10 PM | | | | | PST | | + + + + + documented in this encounter Patient Instructions Patient Instructions Trevin Croft, PARTS PERSON - 02/24/2015 3:30 PM PST PREOPERATIVE INSTRUCTIONS Empty stomach before surgery On the day BEFORE your surgery, drink plenty of fluids and stay well hydrated NOTHING to eat or drink after midnight the night before surgery. This includes water, coffee, candy, mints, gum. Medications Instructions On the evening before your surgery, take ALL your usual evening medications Do NOT take the following medications on the morning of surgery: Iron pill Vitamins Modafinil Other medications not specifically mentioned are at your discretion as to taking or not taking on the morning of surgery. Unless otherwise directed by your surgeon, do not take any Aspirin, vitamin E or non-ottoniel roidal anti-inflammatory (NSAIDs i.e. Advil, Aleve, Ibuprofen) or herbal supplements 7-14 da ys prior to your surgery. These drugs may interfere with normal blood clotting and may cause excessive bleeding and bruising during or after the surgery. If you are taking Coumadin (warfarin), Plavix or any other blood thinners please let you r surgical team know as medication changes may be necessary. If you need a pain medication for general purposes, use Tylenol as directed. OK to take it even on the morning of surgery, if needed. If you are in doubt about any medications that you are taking, please contact our office . Skin preparation to help avoid surgical site infections HIBICLENS GUIDE TO GENERAL SKIN CLEANSING AT HOME BEFORE SURGERY Before you bathe or shower: ? Read the instructions given to you by your healthcare practitioner, and begin your genera l skin cleansing protocol as directed. ? Carefully read all directions on the product label. ? Hibiclens is not to be used on the head or face, keep out of the eyes, ears and mouth. ? Hibiclens is not to be used in the genital area. ? Hibiclens should not be used if you are allergic to chlorhexidine gluconate or any other ingredients in this preparation. *See Hibiclens label for full product information and precautions. When you bathe or shower the night before your surgery: ? If you plan to wash your hair, do so with your regular shampoo. Then rinse hair and body thoroughly to remove any shampoo residue. ? Wash your face with your regular soap or water only. ? Thoroughly rinse your body with warm water from neck down. ? Use Hibiclens as you would any other liquid soap. Please do not put the Hibiclens on a wa sh cloth, apply directly to the skin and wash gently. Apply the minimum amount of Hibiclens necessary to cover the skin. Leave the Hibiclens on your skin for 1 minute, then rinse off. ? Rinse thoroughly with warm water. ? Do not use your regular soap after applying and rinsing Hibiclens. When using Hibiclens for a second day in a row (morning of surgery, as soon as you wake up) : ? Shower/bathe again using Hibiclens in the same method as described above. ? Do not apply any lotions, deodorants, powders or perfumes to the body areas that have been cleaned with Hibiclens. Other Important Guidelines ? Do not shave the surgical area Do not smoke, drink alcohol or use recreational drugs for 24 hours before your surgery Watch for any change in your health condition. Let your surgeon know right away if you do not feel well. ? Do not wear makeup, perfume, lotions, deodorant, powder or hairspray. Do not wear any jewelry to the hospital. Wear loose, comfortable clothing. Leave all your valuables at home. Allow enough travel time so you re not late for your check in for surgery. ? Take a bath or shower and remember to shampoo your hair using your usual hair product bef ore your arrival at the hospital. Please remember to brush your teeth the night before and the morning of your procedure. Preventing post op complications while you are in the hospital Use an incentive spirometer or peep breathe to keep your lungs working properly an d to help prevent respiratory complications. It helps you take long, deep breaths. Use it at least once every hour while you are awake. Leg and feet exercises will maintain good circulation and help prevent blood clots in yo ur legs. Sometimes your doctor will order air compression stockings. Compressed air helps the circulation in your legs. Walking and moving will help stimulate normal circulation and deep breathing. After you r surgery, your nurse may ask you to sit, stand or walk. Surgery check-in location: Admitting - [facility], ninth floor [facility] Surgery Check in Time: The Preoperative Medicine Clinic is not in the position to give you accurate information regarding surgical check in time. We refer you back to your surgical office regarding this important information. Going Home Your surgical team will decide when you are medically ready to go home. If you are released to go home on the same day as your procedure/surgery please note the following: You will not be able to drive. You will be required to have a competent person drive you or accompany you by taxi or pu blic transportation on the day of discharge. It is also recommended that you have a competent person assist you and look after you on the first night after you have undergone regional blocks (72 hours for patients going home with regional block pump), deep sedation, and/or general anesthesia. If you stayed in the hospital after surgery, please arrange for your ride to come for yo u around 9AM on the day your doctor says you can go home. If you have questions or concerns after you go home, call your doctor s office. If it is after office hours, call the [facility] expanding machine operator at [phone] and ask them to page him or h er. Preparing For Your Surgery Video - 7 minutes of instructions! Access this [facility] video site : [email or web address] -->Healthcare --> Patient and Visitor Guide --> Preparing for your Visit or Surgery --> Click on the "Preparing for Your Surgery" video sp leonides documented in this encounter Progress Notes Trevin Croft NP - 02/24/2015 3:55 PM PSTFormatting of this note might be differe nt from the original. PREOPERATIVE CONSULT NOTE Author: Trevin Croft NP Referring Physician: MD Richy Primary Care Provider: Trevin Delacruz MD Reason for Consult: Preoperative evaluation and risk assessment Proposed Procedure/Date: panniculectomy/03-03-2015 HISTORY OF PRESENT ILLNESS: Mian Marquez is a 64 y.o. male here for preoperative evaluation for above procedure. Pt has dx of significant weight loss secondary to gastric bypass surg deanne. Symptoms related to the diagnosis: none Pertinent medical history: Depression Anxiety H/o multiple sclerosis CHRISTEN, uses CPAP Perioperative cardiac risks: None Functional Capacity: Moderate (4-10 mets) Prior complications of anesthesia: none ROS: Pertinent HPI: Mian Marquez is a pleasant 64 y.o. male seen in [facility] clinic today for pre-op evaluation prior to panniculectomy Pulmonary: Within Defined Limits except as noted below no cough no rhinorrhea no URI no whe ezing Pt. Has no asthma no COPD Dx of sleep apnea Uses BiPap/CPAP Cardiovascular: Within Defined Limits except as noted below Functional Capacity: Moderate n o CAD no CHF no hypertension no pacemaker GI/Hepatic: Within Defined Limits except as noted below no GI Bleed no GERD No liver diseas e no hepatitis no OTHER GI : Within Defined Limits except as noted below no renal failure no dialysis Endo: Within Defined Limits except as noted below no Diabetes: Neurological: Within Defined limits except as noted below no seizures no HX CORTICOSTEROID psychiatric problem (Effexor and abilify) depression no dementia pain (Neurontin 300 mg x 1- 2 tabs per day) Current Pain Level: Current pain level: 3 MS: Within Defined Limits except as noted below arthritis (radiculopathy) Other MS (multipl e sclerosis), Heme/Onc: Within Defined Limits except as noted below Pt. has: no active bleeding Bleeding diathesis / thrombotic bleeding (PE in 1978 after cholecystectomy) Previous Transfusions: no transfusion hx Hx: no other heme, Malignancy: no cancer, Location: Metastasis: no HIV/AIDS, Skin: Within Defined Limits except as noted below No open wounds or sores No hx MRSA/VRE/Ac tive skin infection Current medications reviewed / updated Current Medication List Name Sig ARIPIPRAZOLE 5 MG TABLET Take 1 tablet by mouth once daily. CALCIUM CITRATE-VITAMIN D3 200 MG CALCIUM-250 UNIT TABLET Take 2 tablets by mouth three teddy es daily. CHOLECALCIFEROL (VITAMIN D3) 50,000 UNIT TABLET Take 50,000 Units by mouth every seven days . Indications: VITAMIN D DEFICIENCY (HIGH DOSE THERAPY) CYANOCOBALAMIN (VIT B-12) 1,000 MCG/ML INJECTION SOLUTION Inject into the muscle (IM). ECONAZOLE 1 % TOPICAL CREAM GABAPENTIN 400 MG CAPSULE Take 2 capsules by mouth two times daily. GLATIRAMER 40 MG/ML SUBCUTANEOUS SYRINGE Inject 40 mg under the skin (SUBC) three times wee kly (on Monday, Monday and Monday). IRON SUCROSE 100 MG IRON/5 ML INTRAVENOUS SOLUTION Every other month MODAFINIL 200 MG TABLET IRON DEXTRAN IV INFUSION Inject into the vein (IV) once. Every 2 months NITROFURANTOIN MONOHYDRATE/MACROCRYSTALS 100 MG CAPSULE BOTOX INJ by injection route as needed (neurogenic bladder). ROPINIROLE 2 MG TABLET Take 2 mg by mouth once daily in the evening. TRAZODONE 50 MG TABLET Take 1-2 tablets by mouth once daily at bedtime as needed. VENLAFAXINE ER 150 MG CAPSULE,EXTENDED RELEASE 24 HR Take 1 capsule by mouth once daily. Allergies reviewed / updated Allergies Allergen Reactions Adhesive Tape Pruritis Sulfa (Sulfonamide Antibiotics) Pruritis Past medical history reviewed / updated Past Medical History Diagnosis Date MS (multiple sclerosis) ([facility]) gait/ cognition issues Back pain s/p surgery Obesity Restless legs Low ferritin iron infusions in past CHRISTEN on CPAP Urinary retention self caths GERD (gastroesophageal reflux disease) severe 07/2014 Depressive disorder, not elsewhere classified Other and unspecified symptoms and signs involving general sensations and perceptions Past surgery reviewed and updated Past Surgical History Procedure Date Lap-band insertion 2011 standard/ in [place] Ben[place]-en-y gastric bypass 2006 [facility]/ [place] Back surgery lumbar Cholecystectomy Family history reviewed / updated Family History Problem Relation Glasses Mother Glasses Father Glasses Brother Social history reviewed / updated History Substance Use Topics Smoking status: Never Smoker Smokeless tobacco: Never Used Alcohol Use: No PHYSICAL EXAM: Last Vitals: BP 138/80 | Pulse 71 | Temp (Src) 36.7 C (98 F) (Oral) | RR 15 | Ht 1.753 m (5' 9") | Wt 89.268 kg (196 lb 12.8 oz) | SpO2 99% | BMI 29.05 kg/(m^2) Body mass index is 29.05 kg/(m^2). General: Patients general appearance: Healthy, Alert, No distress, Cooperative, Smiling and Age appropriate Head & Neck/Airway: Neck ROM: full Neck Circumference: 40 cm. Dentition: dentition is normal Dentition Comments: crawn Sharpe: No Mallampati: II Mouth Ope maximus: unable to assess C-Spine: normal Neck Anatomy: Normal Jaw Protrusion: Normal, lower in cisors can protrude past upper incisors Lung Exam: breath sounds normal Cardiac: Rhythm: regular Rate: normal murmur Abdominal: Musculoskeletal: Findings: tone normal and normal strength Neuro/Psych: alert Findings: Normal gait and station, No tremor, Alert, oriented to person, place, time, Normal affect and Motor 5/5 strength globally with normal tone Integument: - lesion, rash and open wounds Color: pink Texture: Skin texture - normal Turgor: turgor normal Implants: Comments: muscle stimulator implanted left flank LABS & DATA REVIEWED/ORDERED Lab Results Component Value Date WBC 7.5 03/15/2004 HB 15.4 03/15/2004 HCT 45.1 03/15/2004 PLT 206 03/15/2004 MCV 94.5 03/15/2004 RDW 13.1 03/15/2004 Lab Results Component Value Date NA 143 03/15/2004 K 4.1 03/15/2004 CL 104 03/15/2004 BICARB 32 03/15/2004 BUN 16 03/15/2004 CR 0.9 03/15/2004 GLU 55 02/03/2015 CA Not Provided 07/29/2014 AST 30 02/03/2015 ALT 20 02/03/2015 AP 73 02/03/2015 TBILI 0.6 02/03/2015 TP 7.4 02/03/2015 ALB 4.0 02/03/2015 DIRBILI 0.2 04/10/2002 Lab Results Component Value Date ABO A 02/06/2002 RH POS 02/06/2002 No results found for: A1C EKG: Not needed MEDICAL DECISION MAKIN ACC/AHA Perioperative Cardiac Risk Stratification (assumes non-emergent, non-cardiac p rocedure) Are active cardiac conditions present? No Calculate the combined surgical and patient-specific risk: using the Ulrich perioperative ca rdiac risk calculator, the risk of major adverse cardiac event (MACE) is: less than 1%. No further risk stratification for coronary disease is indicated. ASSESSMENT and RECOMMENDATIONS: Surgical/anesthesia risk assessment: Mian Marquez is a 64 y.o. male with diagnosis of s /p significant weight loss secondary to gastric bypass, scheduled for panniculectomy. Accor ding to ACC/AHA guidelines, the patient does not meet criteria for additional testing. Medication management recommendations: The patient was advised to continue all usual med ications except as noted in Patient Instructions (After Visit Summary given to pt) Pre-procedure antibiotic recommendation: Cefazolin 2 gm IV (no PCN allergy; no hx MRSA) Depression Anxiety H/o multiple sclerosis CHRISTEN, uses CPAP The patient is stable / optimized for surgery. Additional testing/optimization is not nee ded. Thank you for the opportunity to contribute to this patient's care. Trevin Croft NP [facility] PREOPERATIVE MEDICINE CLINIC AT [facility] 4TH FLOOR [address] [facility] [place] [address] I spent time (45 minutes, >50% of the visit) counseling the pt regarding perioperative risk (cardiac/bleeding/ DVT/ respiratory failure/ infection, etc) and methods to mitigate risk. I advised the patient regarding NPO requirements, hydration before surgery, showering, gen eral body hygiene. All pre-procedure instructions given to the patient (after-visit summary ). All of patient's questions were addressed. The patient verbalized understanding of the instructions given. documented in t his encounter Plan of Treatment +--------+ + + + + | Date | Type | Specialty | Care Team | Description | +--------+ + + + + | 10/31/ | Appointment | Hematology & | Onc, Gen [address] | | | 2019 | | Oncology | [place], | | | | | | [place] [address] | | +--------+ + + + + documented as of this encounter Visit Diagnoses + + | Diagnosis | + + | Major depressive disorder, recurrent episode, in partial remission (HCC) - Primary | | Major depressive disorder, recurrent episode, in partial or unspecified remission | + + | Anxiety associated with depression Dysthymic disorder | + + | Pre-op evaluation Preoperative examination, unspecified | + + documented in this encounter
--- OUTSIDE RECORDS SUMMARY | ~2019-08-23 | XMS | Encounter Summary ---
Demographics + + + | Address | [address] | | | [place] [address] | + + + | Home Phone | | + + + | Preferred Language | Unknown | + + + | Marital Status | Single | + + + | Muslim Affiliation | METHODIST | + + + [...] Providers + +------+ + | Care Electric Track Switch Maintainer Name | Role | Phone | [...] | | | Epic Dept | Center [facility] | | | | | | [...] | | | | | | | [place], [place] | | | | | | | [address] | | | | | | | Phone: | | | | | | | [phone] | | | | | | | Fax: | | | | | | | [phone] | +--------+--------+ + + + + Encounter Details +--------+---------+ + + + | Date | Type | Department | Care Team | Description | +--------+---------+ + + + | 03/13/ | Office | Neurology at | Christian Maldonado MD | Multiple sclerosis | | 2017 | Visit | [facility] & | [address] | ([facility]) (Primary Dx); | | | | Healing [address] | [address] [place], | Mild episode of | | | | Ave Mailcode: CH8C | [place] [address] | recurrent major | | | | [facility] | [phone] | depressive disorder | | | | and Healing, | | ([facility]); Neurogenic | | | | Building | | bladder | | | | Floor [place], [place] | | | | | | [address] | | | | | | [phone] | | | +--------+---------+ + + + [...] + + + | Blood Pressure | 134/84 | 03/13/2017 8:50 AM | | | | | PST | | + + + + + | Pulse | 83 | 03/13/2017 8:50 AM | | | | | PST [...] Weight | 93 kg (205 lb) | 03/13/2017 8:50 AM | | | | | PST | | + + + + + | Height | - | - | | + + + + + | Body Mass Index | 29.41 | 10/31/2016 3:28 PM | | | | | PDT | | + + + + + documented in this encounter Progress Notes Christian Maldonado MD - 03/13/2017 8:50 AM PST [facility] Medical Problems 1. Multiple sclerosis Avonex [id number] (treatment for 2 years) Rebif for 2.5 [...] replaced with paddles and non- rechargeable battery ([employer] stimulator) in spring 2016. 9. CHRISTEN INTERVAL HISTORY: Mr. Marquez RTC for follow up. He again has questions about treatment for his bladder dysfunction. He has seen 2 urologists for this problem. He has leakage even w ith treatment with Botox and cathing himself. This has worsened the past 6 months. [facility] [address]. Nix has discussed the options available but Mian is not sure what to do. Plans to make a follow up appointment with Dr. Nix. He also continues to have difficulties with depression. Is se regularly by psych. Reports some of this is Due to his brothers illness. He denies any new MS symptoms. Has continued back pain. Current Outpatient Prescriptions Medication Sig buPROPion XL 150 mg oral tablet extended [...] mouth once daily. Take 37.5mg (1 pill) daily for 1 week, then take 75mg (2 pills) daily. Indications: major depressive disorder No current facility-administered medications for this [...] Adhesive tape Physical Examination: Vital Signs: BP 134/84 | Pulse 83 | Wt 93 kg (205 lb) | BMI 29.41 kg/(m^2) General: He is no apparent physical [...] decreased on R. Cerebellar testing shows slowed [id number]. Gait: Antalgic casual gait, very difficult to tandem walk as he had to reach out for support. Walks 25 feet in 7.34 sec. Impression: 1. Multiple sclerosis 2. Depression. [...] for his bladder dysfunction with his urologist. I also encouraged him to exercise as this will help his ba ck and mood. Plan: 1. RTC in 6 months. 2. Continue current medications. 3. Recommended [...] | 2020 | | Oncology | [address] [place], | | | | | | [place] [address] | | +--------+ + + + + documented as of this encounter Visit Diagnoses + + | Diagnosis | + + | Multiple sclerosis (HCC) - Primary Multiple sclerosis | + + | Mild episode of recurrent major depressive disorder (HCC) | + + | Neurogenic bladder Neurogenic bladder, NOS | + + documented in this encounter"
--- OUTSIDE RECORDS SUMMARY | ~2019-08-23 | XMS | Encounter Summary ---
Demographics + + + | Address | [address] | | | [place] [address] | + + + | Home Phone | | + + + | Preferred Language | Unknown | + + + | Marital Status | | + + + | Nondenominational Affiliation | Unknown | + + + | Race | Unknown | + + + | Ethnic Group | Unknown | + + + Author + + + | Author | [facility] | | | and Jadenana | + + + | Organization | [facility] [...] | | | | | [place] [address] | | + + + + + Care Team Providers + +------+ + | Care Cloth Handler Name | Role | Phone | + +------+ + | Lexie Cagle | PCP | | | AUTOMATIC SPREADER OPERATOR | | | + +------+ + Reason for Visit +---------+ + | Reason | Comments | +---------+ + | Imaging | | +---------+ + Encounter Details +--------+ + + + + | Date | Type | Department | Care Team | Description | +--------+ + + + + | 01/31/ | Telephone | [facility] | Lexie Cagle | Imaging | | 2019 | | MEDICINE [address] | [address] | | | [address] | [address] [facility] | | | | | [place] [address] | [place] [address] | | | | | [phone] | [phone] | | | | | | | [...] 2020 | Visit | | [address] | | | | | | [place] | | | | | | [address] | | | | | | | | +--------+---------+ + + + documented as of this encounter Visit Diagnoses Not on filedocumented in this encounter"
--- OUTSIDE RECORDS SUMMARY | ~2019-08-23 | XMS | Encounter Summary ---
Demographics + + + | Address | [address] | | | [place] [address] | + + + | Home Phone [...] Author | [facility] | | | and Jadenana | + + + | Organization | [facility] | [...] | | | | | [place] [address] | | + + + + + Care Team Providers + +------+ + | Care Supervisor [employer] Name | Role | Phone | + +------+ + | Lexie Cagle | PCP | | | FIELD SPECIALIST | | | + +------+ + Encounter [...] [place] | | | | | [place] [address] | [place] [address] | | | | | [phone] | [phone] | | | | | | | [...] 2019 | Visit | | [address] | | | | | | [place] | | | | | | [address] | | | | | | | [...] + + | REFERENCE LAB | [address] | [place] | [phone] | | [facility] | | [address] | | + + + + + | REFERENCE LAB | [address] | [place] | [phone] | | [facility] | | [address] | | + + + + + documented in this encounter Visit Diagnoses Not on filedocumented in this encounter"
--- OUTSIDE RECORDS SUMMARY | ~2019-08-23 | XMS | Encounter Summary ---
Demographics + + + | Address | [address] | | | [place] [address] | + + + | Home Phone | | + + + | Preferred Language | Unknown | + + + | Marital Status | Single | + + + | Quaker Affiliation | YAZIDISM | + + + [...] Providers + +------+ + | Care Salesperson Parts Name | Role | Phone | + [...] as of this encounter Progress Notes Interface, Director Of Financial Planning In - 10/23/2005 3:09 AM PDTCLINIC DATE: 03/04/[address] [facility] CLINICAL ISSUE: Mr. Marquez is 2 weeks [...] will see him in 2 weeks. Colin Posada M.D. SHAWN / VICTOR M [id number] / [id number] / [id number] / Tdocumented in this encounter Plan of Treatment +--------+ + + + + | Date | Type | Specialty | Care Team | Description | +--------+ + + + + | 10/31/ | Appointment | Hematology & | Onc, [address] | | | 2020 | | Oncology | [place], | | | | | | [place] [address] | | +--------+ + + + + documented as of this encounter Visit Diagnoses Not on filedocumented in this encounter"
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
--- OUTSIDE RECORDS SUMMARY | ~2019-08-23 | XMS | Encounter Summary ---
Demographics + + + | Address | [address] | | | [place] [address] | + + + | Home Phone | | + + + | Preferred Language | Unknown | + + + | Marital Status | Single | + + + | Adventism Affiliation | MU-ISM | + + + [...] Team Providers + +------+ + | Care Rock Star Name | Role | Phone | + +------+ + | Jose Hameed MD | PCP | | + +------+ + Encounter Details +--------+------+ + + + | Date | Type | Department | Care Team | Description | +--------+------+ + + + | 09/19/ | Lab | Laboratory at [facility] | | Multiple sclerosis | | 2017 | | [address] | | ([facility]) | | | | [place], [place] | | | | | | [address] | | | | | | [phone] | | | +--------+------+ + + + [...] | | | | | | [place] [address] | | +--------+ + + + + documented as of this encounter Procedures + +--------+ + + + | Procedure Name | Priori | Date/Time | Associated Diagnosis | Comments | | | ty | | | | + +--------+ + + + | HEPATITIS B SURFACE | Routin | 09/19/2016 | Multiple sclerosis | Results for this | | AG W/REFLEX IF | e | 9:20 AM | (HCC) | procedure are in the | | INDICATED | | PDT | | results section. | + +--------+ + + + | CBC AND AUTO DIFF | Routin | 09/19/2016 | Multiple sclerosis | Results for this | | | e | 9:20 AM | (HCC) | procedure are in the | | | | PDT | | results section. | + +--------+ + + + | CBC, WITH | Routin | 09/19/2016 | Multiple sclerosis | Results for this | | DIFFERENTIAL | e | 9:20 AM | (HCC) | procedure are in the | | | | PDT | | results section. | + +--------+ + + + | COMPLETE METABOLIC | Routin | 09/19/2016 | Multiple sclerosis | Results for this | | SET | e | 9:20 AM | (HCC) | procedure are in the | | (NA,K,CL,CO2,BUN,CRE | | PDT | | results section. | | AT,GLUC,CA,AST,ALT,B | | | | | | LILY TOTAL,ALK | | | | | | PHOS,ALB,PROT TOTAL) | | | | | + +--------+ + + + | HEPATITIS B SURFACE | Routin | 09/19/2016 | Multiple sclerosis | Results for this | | AB QUAL, SERUM | e | 9:20 AM | (HCC) | procedure are in the | | | | PDT | | results section. | + +--------+ + + + | HEPATITIS B CORE AB, | Routin | 09/19/2016 | Multiple sclerosis | Results for this | | SERUM | e | 9:20 AM | (HCC) | procedure are in the | | | | PDT | | results section. | + +--------+ + + + documented in this encounter Results CBC AND AUTO DIFF (09/19/2016 9:20 AM PDT) + + + + + + | Component | Value | Ref Range | Performed | Pathologist | | | | | At | Signature | + + + + + + | WHITE CELL | 4.46 | 3.50 - 10.80 | [facility] | | | COUNT | | K/cu mm | LABORATORY | | | | | | SERVICES, | | | | | | [facility] | | | | | | [facility] | | + + + + + + | RED CELL | 4.47 (L) | 4.50 - 6.00 | [facility] | | | COUNT | | M/cu mm | LABORATORY | | | | | | SERVICES, | | | | | | [facility] + | | | | | | [facility] | | + + + + + + | HEMOGLOBIN | 14.3 | 13.5 - 17.5 | [facility] | | | | | g/dL | LABORATORY | | | | | | SERVICES, | | | | | | [facility] + | | | | | | [facility] | | + + + + + + | HEMATOCRIT | 44.1 | 41.0 - 53.0 % | [facility] | | | | | | LABORATORY | | | | | | SERVICES, | | | | | | [facility] + | | | | | | [facility] | | + + + + + + | MCV | 98.7 (H) | 80.0 - 96.0 fL | [facility] | | | | | | LABORATORY | | | | | | SERVICES, | | | | | | [facility] + | | | | | | [facility] | | + + + + + + | MCHC | 32.4 | 33.0 - 35.5 | [facility] | | | | | g/dL | LABORATORY | | | | | | SERVICES, | | | | | | [facility] + | | | | | | [facility] | | + + + + + + | RDW SD | 46.9 (H) | 35.1 - 46.3 fL | [facility] | | | | | | LABORATORY | | | | | | SERVICES, | | | | | | [facility] + | | | | | | [facility] | | + + + + + + | PLATELET | 151 | 150 - 400 K/cu | [facility] | | | COUNT | | mm | LABORATORY | | | | | | SERVICES, | | | | | | [facility] + | | | | | | [facility] | | + + + + + + | MPV | 9.9 | 9.7 - 12.3 fL | [facility] | | | | | | LABORATORY | | | | | | SERVICES, | | | | | | [facility] + | | | | | | [facility] | | + + + + + + | NEUTROPHIL | 70.0 | 50.0 - 70.0 % | [facility] | | | % | | | LABORATORY | | | | | | SERVICES, | | | | | | [facility] + | | | | | | [facility] | | + + + + + + | LYMPHOCYTE | 16.6 (L) | 18.0 - 42.0 % | [facility] | | | % | | | LABORATORY | | | | | | SERVICES, | | | | | | [facility] + | | | | | | [facility] | | + + + + + + | MONOCYTE % | 8.7 | 3.5 - 9.0 % | [facility] | | | | | | LABORATORY | | | | | | SERVICES, | | | | | | [facility] + | | | | | | [facility] | | + + + + + + | EOS % | 4.0 (H) | 1.0 - 3.0 % | [facility] | | | | | | LABORATORY | | | | | | SERVICES, | | | | | | [facility] + | | | | | | [facility] | | + + + + + + | BASO % | 0.7 | 0.0 - 2.0 % | [facility] | | | | | | LABORATORY | | | | | | SERVICES, | | | | | | [facility] | [facility] + | | | | | | [facility]ALING | | + + + + + + | NEUTROPHIL | 3.12 | 1.80 - 7.70 | [facility] | | | # | | K/cu mm | LABORATORY | | | | | | SERVICES, | | | | | | [facility] | [facility] + | | | | | | [facility]ALING | | + + + + + + | LYMPHOCYTE | 0.74 (L) | 1.00 - 4.80 | [facility] | | | # | | K/cu mm | LABORATORY | | | | | | SERVICES, | | | | | | [facility] | [facility] + | | | | | | [facility] | | + + + + + + | MONOCYTE # | 0.39 | 0.10 - 0.90 | [facility] | | | | | K/cu mm | LABORATORY | | | | | | SERVICES, | | | | | | [facility] | [facility] + | | | | | | [facility]ALING | | + + + + + + | EOS # | 0.18 | 0.00 - 0.50 | [facility] | | | | | K/cu mm | LABORATORY | | | | | | SERVICES, | | | | | | [facility] | [facility] + | | | | | | [facility]ALING | | + + + + + + | BASO # | 0.03 | 0.00 - 0.10 | [facility] | [...] + + + + + | [facility] | [address] | [place] [address] | | | SERVICES, [facility] | | | | | HEALTH + HEALING | | | | + + + + + HEPATITIS B CORE AB, SERUM (09/19/2016 9:20 [...] + | Giovani baldwin effective 2016. | [facility] | | | LABORATORY | | | SERVICES, CORE | + + + + + + + + | Performing | Address | City/State/Zipcode | Phone Number | | Organization | | | | + + + + + | [facility] | [address] | [place] [address] | | | SERVICES, CORE | [address] [...] + | Giovani baldwin effective 2016. | [facility] | | | LABORATORY | | | SERVICES, CORE | + + + + + + + + | Performing | Address | City/State/Zipcode | Phone Number | | Organization | | | | + + + + + | [facility] | [address] | [place] [address] | | | SERVICES, CORE | [address] [...] + | Giovani baldwin effective 2016. | [facility] | | | LABORATORY | | | SERVICES, CORE | + + + + + + + + | Performing | Address | City/State/Zipcode | Phone Number | | Organization | | | | + + + + + | [facility] | [address] | [place] [address] | | | SERVICES, CORE | PARK [...] | | | LABORATORY | | | LAO | | | SERVICES, | | | [...] | + + + + + | [facility] | [address] | [place] [address] | | | SERVICES, CORE | [address] | | | + + + + + documented in this encounter Visit Diagnoses + + | Diagnosis | + + | Multiple sclerosis (HCC) Multiple sclerosis | + + documented in this encounter"
--- OUTSIDE RECORDS SUMMARY | ~2019-08-23 | XMS | Encounter Summary ---
Demographics + + + | Address | [address] | | | [place] [address] | + + + | Home Phone | | + + + | Preferred Language | Unknown | + + + | Marital Status | | + + + | Tenriism Affiliation | Unknown | + + + | Race | Unknown | + + + | Ethnic Group | Unknown | + + + Author + + + | Author | [facility] | | | and Jadenana | + + + | Organization | [facility] | | | and Jadenana [...] | | | | | [place] [address] | | + + + + + Care Team Providers + +------+ + | Care Latent Fingerprint Examiner Name | Role | Phone | + +------+ + | Lexie Cagle | PCP | | | CONTRACT ADMINISTRATION MANAGER | | | + +------+ + Reason for Visit + + + | Reason | Comments | + + + | Lab Results | | + + + Encounter Details +--------+ + + + + | Date | Type | Department | Care Team | Description | +--------+ + + + + | 11/29/ | Telephone | [facility] | Lexie Cagle | Lab Results | | 2019 | | MEDICINE [address] | [address] | | | | | [address] | [address] [facility] [address] | | | | | [place] [address] | [place] [address] | | | | | [phone] | [phone] | | | | | | | [...] [place] | | | | | | [address] | | | | | | | | +--------+---------+ + + + documented as of this encounter Visit Diagnoses + + | Diagnosis | + + | Hypoglycemia - Primary Hypoglycemia, unspecified | + + documented in this encounter"
--- OUTSIDE RECORDS SUMMARY | ~2019-08-23 | XMS | Encounter Summary ---
Demographics + + + | Address | [address] | | | [place] [address] | + + + | Home Phone | | + + + | Preferred Language | Unknown | + + + | Marital Status | Single | + + + | Jain Affiliation | ANGLICAN | + + + | Race | [...] Team Providers + +------+ + | Care Operational Meteorologist Name | Role | Phone | + +------+ + | Jose Hameed MD | PCP | | + +------+ + Encounter Details +--------+ + + + + | Date | Type | Department | Care Team | Description | +--------+ + + + + | 11/11/ | Abstract | Urology at [facility] | Shukri Oliiver MD | | | 2017 | | [address] | [address] | | | | | Mailcode: [id number] | [facility] [place] | | | | | [facility] | [address] | | | | | and [address], | [phone] | | | | | | | | | | | Floor [place], [place] | | | | | | [address] | | | | | | [phone] | | | +--------+ + + + [...] | | | | | | [place] [address] | | +--------+ + + + + documented as of this encounter Visit Diagnoses Not on filedocumented in this encounter"
--- OUTSIDE RECORDS SUMMARY | ~2019-08-23 | XMS | Encounter Summary ---
Demographics + + + | Address | [address] | | | [place] [address] | + + + | Home Phone | | + + + | Preferred Language | Unknown | + + + | Marital Status | Single | + + + | Jehovah'S Witness Affiliation | EPISCOPALIAN | + + + [...] Team Providers + +------+ + | Care Ticker Installer Name | Role | Phone | + +------+ + | Jose Hameed MD | PCP | | + +------+ + Encounter Details +--------+ + + + + | Date | Type | Department | Care Team | Description | +--------+ + + + + | 01/17/ | Hospital | Radiology/Imaging | Christian Maldonado MD | | | 2018 | Encounter | Lab at [facility] [address] | | | | | Martín Fitzpatrick Mailcode: | Eduarda [place], | | | | | [facility] | [place] [address] | | | | | Health and Healing, | [phone] | | | | | [place] [address] [facility] | | | | | | [place], [place] | | | | | | [address] | | | | | | [phone] | | | +--------+ + + + [...] | | | | | | [place] [address] | | +--------+ + + + + documented as of this encounter Procedures + +--------+ + + + | Procedure Name | Priori | Date/Time | Associated Diagnosis | Comments | | | ty | | | | + +--------+ + + + | X-RAY ABDOMEN 1 VIEW | Routin | 01/17/2018 | Chronic low back | Results for this | | | e | 4:03 PM | pain without | procedure are in the | | | | PDT | sciatica, | results section. | | | | | unspecified back | | | | | | pain laterality | | + +--------+ + + + documented in this encounter Results X-RAY ABDOMEN 1 VIEW (01/17/2018 4:03 PM PDT) + + | Specimen | + + | | + + + + + | Narrative | Performed At | + + + | EXAM: ABDOMEN 1 VIEW History: verify lead placement | [facility] | | Comparison: KUB from upper GI 08/26/14 FINDINGS/IMPRESSION: Left | RADIOLOGY VOICE | | abdominal generator with 2 intact appearing leads terminating over | RECOGNITION 2 | | the mid thoracic spine. The bowel gas pattern is unremarkable. | | | Extensive postsurgical changes of the lumbar spine. I have | | | personally reviewed the images and, if necessary, edited the report. I | | | agree with the report as now presented. Final signature: Cyrus Alberts | | | MD Donis 01/17/2018 4:17 PM Preliminary: Cyrus Dykes MD | | | Dictation initiated: Cyrus Dykes MD 01/17/2018 4:14 PM | | + + + + ----+ | Procedure Note | + ----+ | Service Account, Radiant Res In Interface - 01/17/2018 4:18 PM PDT EXAM: ABDOMEN 1 | | VIEW History: verify lead placement Comparison: KUB from upper GI 08/26/14 | | FINDINGS/IMPRESSION: Left abdominal generator with 2 intact appearing leads terminating | | over the mid thoracic spine. The bowel gas pattern is unremarkable. Extensive | | postsurgical changes of the lumbar spine. I have personally reviewed the images and, if | | necessary, edited the report. I agree with the report as now presented. Final | | signature: Cyrus Dykes MD 01/17/2018 4:17 PM Preliminary: Cyrus Dykes MD | | Dictation initiated: Cyrus Dykes MD 01/17/2018 4:14 PM | |Left abdominal generator with 2 intact appearing leads terminating over the mid thoracic sp ine. The bowel gas pattern is unremarkable. Extensive postsurgical changes of the lumbar spi ne. | | | |I have personally reviewed the images and, if necessary, edited the report. I agree with e report as now presented. | | | |Final signature: Cyrus Dykes MD 01/17/2018 4:17 PM | |Preliminary: Cyrus Dykes MD | |Dictation initiated: Cyrus Dykes MD 01/17/2018 4:14 PM | + ----+ + +---------+ + + | Performing | Address | City/State/Zipcode | Phone Number | | Organization | | | | + +---------+ + + | [facility] | | | | | VOICE RECOGNITION 2 | | | | + +---------+ + + documented in this encounter Visit Diagnoses + + | Diagnosis | + + | Chronic low back pain without sciatica, unspecified back pain laterality | + + documented in this encounter"
--- OUTSIDE RECORDS SUMMARY | ~2019-08-23 | XMS | Encounter Summary ---
Demographics + + + | Address | [address] | | | [place] [address] | + + + | Home Phone | | + + + | Preferred Language | Unknown | + + + | Marital Status | Single | + + + | Faith Affiliation | CONFUCIANIST | + + + [...] Team Providers + +------+ + | Care Burr Mill Operator Name | Role | Phone | + +------+ + | Jose Hameed MD | PCP | | + +------+ + Reason for Visit + + + | Reason | Comments | + + + | Bladder control | | + + + Encounter Details +--------+ + + + + | Date | Type | Department | Care Team | Description | +--------+ + + + + | 12/02/ | Telephone | Urology at [facility] | Shukri Olivier MD | Bladder control | | 2017 | | [address] | [address] | | | | | Mailcode: CH10U | [place], [place] | | | | | [facility] | [address] | | | | | and [place], | [phone] | | | | | [facility] | | | | | | Floor [facility] [place] | | | | | | [address] | | | | | | [phone] | | | +--------+ + + + [...] | | | | | | [place] [address] | | +--------+ + + + + documented as of this encounter Visit Diagnoses Not on filedocumented in this encounter"
--- OUTSIDE RECORDS SUMMARY | ~2019-08-23 | XMS | Encounter Summary ---
Demographics + + + | Address | [address] | | | [place] [address] | + + + | Home Phone | | + + + | Preferred Language | Unknown | + + + | Marital Status | Single | + + + | Yarsanism Affiliation | JAIN | + + + | Race | [...] Providers + +------+ + | Care Tool And Production Planner Name | Role | Phone | + [...] | | | | | | [place] [address] | | +--------+ + + + + documented as of this encounter Visit Diagnoses Not on filedocumented in this encounter"
--- OUTSIDE RECORDS SUMMARY | ~2019-08-23 | XMS | Encounter Summary ---
Demographics + + + | Address | [address] | | | [place] [address] | + + + | Home Phone | | + + + | Preferred Language | Unknown | + + + | Marital Status | Single | + + + | Jehovah'S Witness Affiliation | CONFUCIANIST | + + + | Race | White | + + + | Ethnic Group | Not or | + + + Author + + + | Author | [facility] | + + + | Organization | [facility] | + + + | Address | Unknown | + + + | Phone | Unavailable | + + + Support + + +---------+ + | Name | Relationship | Address | Phone | + + +---------+ + | Theodore Marquez | ECON | Unknown | | + + +---------+ + Care Team Providers + +------+ + | Care Candle Maker Name | Role | Phone | [...] | | | | | Surgery at [facility] [address] | | | | | Kayli Fitz[place] | [place], [place] | | | | | Mailcode: [facility] | [address] | | | | | [facility] | [phone] | | | | | and Healing, | | | | | | [facility] | | | | | | [place], [place] | | | | | | [address] | | | | | | [phone] | | | +--------+ + + + [...] | | | | | | [place] [address] | | +--------+ + + + + documented as of this encounter Visit Diagnoses Not on filedocumented in this encounter"
--- OUTSIDE RECORDS SUMMARY | ~2019-08-23 | XMS | Encounter Summary ---
Demographics + + + | Address | [address] 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 London Duke | (Primary Dx); BMI | | | | Surgery at [facility] [address] | 29.0-29.9,adult; | | | | [address] | [place], [place] | Essential | | | | Mailcode: [facility] | [address] | hypertension | | | | [facility] | [phone] | | | | | and Healing, | | | | | | Building [address], | | | | | | Floor [place], [place] | | | | | | [address] | | | | | | [phone] | | | +--------+---------+ + + + [...] Duque MD PLASTIC AND RECONSTRUCTIVE SURGERY AT [facility] [address] Mail Code: [address] [address] Yue Cast MD - 05/23/2016 [...] Hernandez MD PGY-4 Plastic and Reconstructive Surgery [facility] pager [phone] documented in this enc ounter Plan of Treatment +--------+ + + + + | Date | Type | Specialty | Care Team | Description | +--------+ + + + + | 10/31/ | Appointment | Hematology & | Onc, Gen [address] | | | 2019 | | Oncology | Martín Fitzpatrick [place], | | | | | | [place] [address] | | +--------+ + + + + documented as of this encounter Visit Diagnoses + + | Diagnosis | + + | Lipodystrophy - Primary | + + | BMI 29.0-29.9,adult Body Mass Index 29.0-29.9, adult | + + | Essential hypertension | + + documented in this encounter
--- OUTSIDE RECORDS SUMMARY | ~2019-08-23 | XMS | Encounter Summary ---
Demographics + + + | Address | [address] | | | [place] [address] | + + + | Home Phone | | + + + | Preferred Language | Unknown | + + + | Marital Status | Single | + + + | Shinto Affiliation | AMISH | + + + [...] Team Providers + +------+ + | Care Crop Or Grain Farmworker Name | Role | Phone | + +------+ + | Trevin Delacruz MD | PCP | | + +------+ + Encounter Details +--------+ + + + + | Date | Type | Department | Care Team | Description | +--------+ + + + + | 11/10/ | Hospital | [facility] | Nurse, [address] | | | 2015 | Encounter | [facility] [address] [facility] [address] | | | | | [address] [place] Mailcode: | Road [facility] [place] | | | | | [address] | [address] | | | | | Health and Healing, | | | | | | [address] | | | | | | [facility] [place] | | | | | | [address] | | | | | | [phone] | | | +--------+ + + + [...] | | | | | | [place] [address] | | +--------+ + + + + documented as of this encounter Visit Diagnoses Not on filedocumented in this encounter"
--- OUTSIDE RECORDS SUMMARY | ~2019-08-23 | XMS | Encounter Summary ---
Demographics + + + | Address | [address] | | | [place] [address] | + + + | Home Phone | | + + + | Preferred Language | Unknown | + + + | Marital Status | | + + + | Jewish Affiliation | Unknown | + + + | Race | Unknown | + + + | Ethnic Group | Unknown | + + + Author + + + | Author | [facility] | | | and Jadenana | + + + | Organization | [facility] | | [...] | | | | | [place] [address] | | + + + + + Care Team Providers + +------+ + | Care Forging Machine Hand Name | Role | Phone | + +------+ + | Lexie Cagle | PCP | | | LINE CLOSER | | | + +------+ + Reason for Visit + + + | Reason | Comments | + + + | Urinary Tract | | | Infection | | + + + Encounter Details +--------+ + + + + | Date | Type | Department | Care Team | Description | +--------+ + + + + | 02/04/ | Telephone | [facility] | Lexie Cagle | Urinary Tract | | 2018 | | MEDICINE [address] | [address] | Infection | | | | [address] [facility] | [facility] | | | | | [place] [address] | [place] [address] | | | | | [phone] | [phone] | | | | | | | [...] | | | | | [place] | | | | | | [address] | | | | | | | | +--------+---------+ + + + documented as of this encounter Visit Diagnoses + + | Diagnosis | + + | Acute pyelonephritis - Primary Acute pyelonephritis without lesion of renal medullary | | necrosis | + + documented in this encounter"
--- OUTSIDE RECORDS SUMMARY | ~2019-08-23 | XMS | Encounter Summary ---
Demographics + + + | Address | [address] | | | [place] [address] | + + + | Home Phone | | + + + | Preferred Language | Unknown | + + + | Marital Status | Single | + + + | Voodoo Affiliation | ISLAM | + + + [...] Providers + +------+ + | Care Construction Equipment Mechanic Helper Name | Role | Phone | [...] Lab findings, | | 2018 | | [facility] & | [address] | teaching, guidance, | | | | Healing [address] | [address] [place], | and counseling (MRI) | | | | [place] Mailcode: CH8C | [place] [address] | | | | | [facility] | [phone] | | | | | and Healing, | | | | | | [facility] | | | | | | [place], [place] | | | | | | [address] | | | | | | [phone] | | | +--------+ + + + [...]
--- OUTSIDE RECORDS SUMMARY | ~2019-08-23 | XMS | Encounter Summary ---
Demographics + + + | Address | [address] | | | [place] [address] | + + + | Home Phone [...] Author | [facility] | | | and Jadenana | + + + | Organization | [facility] | | [...] | | | | | [place] [address] | | + + + + + Care Team Providers + +------+ + | Care Musculoskeletal Physician Name | Role | Phone | + +------+ + | Lexie Cagle | PCP | | | SLOOP CAPTAIN | | | + +------+ + [...] | | PRECI[place] | [place] | | | | | [address] | [address] | | | | | [phone] | | | +--------+ + + + [...] 2020 | Visit | | [address] | | | | | | [place] | | | | | | [address] | | | | | | | | +--------+---------+ + + + documented as of this encounter Visit Diagnoses Not on filedocumented in this encounter"
--- OUTSIDE RECORDS SUMMARY | ~2019-08-23 | XMS | Encounter Summary ---
Demographics + + + | Address | [address] | | | [place] [address] | + + + | Home Phone [...] Author | [facility] | | | and Jadenana | + + + | Organization | [facility] [...] | | | | | [place] [address] | | + + + + + Care Team Providers + +------+ + | Care Materials Scientist Name | Role | Phone | + +------+ + | Lexie Cagle | PCP | | | HARVEST FIELD TICKETER | | | + +------+ + Reason for Visit + + + | Reason | Comments | + + + | Lab Results | | + + + Encounter Details +--------+ + + + + | Date | Type | Department | Care Team | Description | +--------+ + + + + | 10/29/ | Telephone | [facility] | Lexie Cagle | Lab Results | | 2019 | | MEDICINE [address] | [address] | | | | | [address] | [address] | | | | | [place] [address] | [place] [address] | | | | | [phone] | [phone] | | | | | | | [...] [place] | | | | | | [address] | | | | | | | | +--------+---------+ + + + documented as of this encounter Visit Diagnoses Not on filedocumented in this encounter"
--- OUTSIDE RECORDS SUMMARY | ~2019-08-23 | XMS | Encounter Summary ---
Demographics + + + | Address | [address] | | | [place] [address] | + + + | Home Phone [...] Author | [facility] | | | and Jadenana | + + + | Organization | [facility] | | [...] | | | | | [place] [address] | | + + + + + Care Team Providers + +------+ + | Care Video Game Animator Name | Role | Phone | + +------+ + | Lexie Cagle | PCP | | | RECESSING MACHINE OPERATOR | | | + +------+ + Reason for Visit + + + | Reason | Comments | + + + | Catheter Problem | | | (Leaking) | | + + + Encounter Details +--------+ + + + + | Date | Type | Department | Care Team | Description | +--------+ + + + + | 08/08/ | Telephone | [facility] | Michael Fernandes | Catheter Problem | | 2019 | | [address] | MD [address] | (Leaking) | | | | [place] | [place] | | | | | [address] | [address] | | | | | [phone] | | | +--------+ + + + [...] 2019 | Visit | | [address] | | | | | | [place] | | | | | | [address] | | | | | | | | +--------+---------+ + + + documented as of this encounter Visit Diagnoses Not on filedocumented in this encounter"
--- OUTSIDE RECORDS SUMMARY | ~2019-08-23 | XMS | Encounter Summary ---
Demographics + + + | Address | [address] | | | [place] [address] | + + + | Home Phone [...] | Author | [facility] | | | and Jadenana | + + + | Organization | [facility] | | | [...] | | | | | [place] [address] | | + + + + + Care Team Providers + +------+ + | Care Radio Tower Technician Name | Role | Phone | + +------+ + | Lexie Cagle | PCP | | | DECK CADET | | | + +------+ + Encounter [...] | | | | | [place] [address] | [place] [address] | | | | | [phone] | [phone] | | | | | | | [...] [place] | | | | | | [address] | | | | | | | | +--------+---------+ + + + documented as of this encounter Visit Diagnoses Not on filedocumented in this encounter"
--- OUTSIDE RECORDS SUMMARY | ~2019-08-23 | XMS | Encounter Summary ---
Demographics + + + | Address | [address] | | | [place] [address] | + + + | Home Phone | | + + + | Preferred Language | Unknown | + + + | Marital Status | | + + + | Christianity Affiliation | Unknown | + + + | Race | Unknown | + + + | Ethnic Group | Unknown | + + + Author + + + | Author | [facility] | | | and Jadenana | + + + | Organization | [facility] | | | and [...] | | | | | [place] [address] | | + + + + + Care Team Providers + +------+ + | Care Stranding Machine Operator Name | Role | Phone | + +------+ + | Lexie Cagle | PCP | | | SHAREPOINT TRAINER | | | + +------+ + Reason for Visit +--------+ + | Reason | Comments | +--------+ + | Other | Question about taking chapa catheter out | +--------+ + Encounter Details +--------+ + + + + | Date | Type | Department | Care Team | Description | +--------+ + + + + | 09/14/ | Telephone | [facility] [place] [place] [facility] | Michael Fernandes | Other (Question | | 2019 | | [address] | MD [address] | about taking chapa | | | | [place] | PRECIOUS [place] | catheter out) | | | | [address] | [address] | | | | | [phone] | | | +--------+ + + + [...]
--- OUTSIDE RECORDS SUMMARY | ~2019-08-23 | XMS | Encounter Summary ---
Demographics + + + | Address | [address] | | | [place] [address] | + + + | Home Phone | | + + + | Preferred Language | Unknown | + + + | Marital Status | Single | + + + | Judaism Affiliation | SYNAGOGUE | + + + [...] Providers + +------+ + | Care Assistant Professor Of Dietetics Name | Role | Phone | + +------+ + | Trevin Delacruz MD | PCP | | + +------+ + Reason for Visit + + + | Reason | Comments | + + + | Postoperative | | | Questions | | + + + Encounter Details +--------+ + + + + | Date | Type | Department | Care Team | Description | +--------+ + + + + | 03/11/ | Telephone | Plastic and | Neto Lockhart, | Postoperative | | 2014 | | Reconstructive | [address] | Questions | | | | Surgery at [facility] [address] | | | | | Kayli Fitzpatrick | [place], [place] | | | | | Mailcode: [place]one | [address] | | | | | [facility] | [phone] | | | | | and [place], | | | | | | Building | | | | | | Floor [place], [place] | | | | | | [address] | | | | | | [phone] | | | +--------+ + + + [...] | | | | | | [place] [address] | | +--------+ + + + + documented as of this encounter Visit Diagnoses Not on filedocumented in this encounter"
--- OUTSIDE RECORDS SUMMARY | ~2019-08-23 | XMS | Encounter Summary ---
Demographics + + + | Address | [address] | | | [place] [address] | + + + | Home Phone | | + + + | Preferred Language | Unknown | + + + | Marital Status | | + + + | Mandaeism Affiliation | Unknown | + + + | Race | Unknown | + + + | Ethnic Group | Unknown | + + + Author + + + | Author | [facility] | | | and Jadenana | + + + | Organization | [facility] | | | and [...] | | | | | [place] [address] | | + + + + + Care Team Providers + +------+ + | Care Research Worker Encyclopedia Name | Role | Phone | + +------+ + | Lexie Cagle | PCP | | | HAND ENDBAND CUTTER | | | + +------+ + Reason for Referral Evaluate & Treat (Routine) +--------+ + + + + + | Status | Reason | Specialty | Diagnoses / | Referred By | Referred To | | | | | Procedures | Contact | Contact | +--------+ + + + + + | Closed | Specialty | Infectious | Diagnoses | Tsering, | Bambi, | | | Services | Diseases | Chronic | Lexie | MD Misael | | | Required | | fatigue | Arleen, | [address] | | | | | disorder | HAND ENDBAND CUTTER [address] | [address] | | | | | | [address] | [place], | | | | | | [place], | [place] | | | | | | [place] [address] | [address] | | | | | | Phone: | Phone: | | | | | | [phone] | [phone] | | | | | | Fax: | Fax: | | | | | | [phone] | [phone] | +--------+ + + + + + Reason for Visit + + + | Reason | Comments | + + + | Follow-up | Chronic Fatigue | + + + Encounter Details +--------+---------+ + + + | Date | Type | Department | Care Team | Description | +--------+---------+ + + + | 07/04/ | Office | [facility] | Lexie Cagle | Chronic fatigue | | 2019 | Visit | MEDICINE [address] | [address] | disorder (Primary | | | | Street [place] | [address] [place] | Dx); Anxiety | | | | [place] [address] | [place] [address] | associated with | | | | [phone] | [phone] | depression; Vitamin | | | | | | D deficiency; | | | | | | Persistent | | | | | | depressive disorder; | | | | | | Hypoglycemia | +--------+---------+ + + + Social History [...] + + + | Blood Pressure | 112/80 | 07/04/2018 1:38 PM | | | | | PDT | | + + + + + | Pulse | 92 | 07/04/2018 1:38 PM | | | | | PDT | | + + + + + | Temperature | 36.5 C (97.7 F) | 07/04/2018 1:38 PM | | | | | PDT | | + + + + + | Respiratory Rate | 18 | 07/04/2018 1:38 PM | | | | | PDT | | + + + + + | Oxygen Saturation | 97% | 07/04/2018 1:38 PM | | | | | PDT | | + + + + + | Inhaled Oxygen | - | - | | | Concentration | | | | + + + + + | Weight | 89.8 kg (197 lb 15.6 | 07/04/2018 1:38 PM | | | | oz) | PDT | | + + + + + | Height | 177.8 cm (5' 10") | 07/04/2018 1:38 PM | | | | | PDT | | + + + + + | Body Mass Index | 28.41 | 07/04/2018 1:38 PM | | | | | PDT | | + + + + + documented in this encounter Progress Lexie Jones APRN - 07/04/2018 3:00 PM PDTFormatting of this note might be di fferent from the original. Subjective: Mian Marquez is a 68 y.o. male patient here for Follow-up (Chronic Fatigue) Mian continues to be very fatigued, lethargic, and lightheaded. He was feeling so poorly yesterday that he went to the Urgent Care at [facility] in [facility]. While there, he had labs done and was told that they "don't look good" and advised to have further evaluation. T odilia, he feels slightly better, but reports that he just wants to be admitted to the the orthopedic specialty hospital to try to figure out what is wrong with him. He is miserable and fatigued and feels like n o one appreciates the impact his symptoms have on his life. Does mention that he has noticed his symptoms have worsened since stopping his regular B12 and iron infusions. He admits that he is not eating well still, but is trying to force himself to eat. His mood continues to be very depressed. Recently had a suprapubic catheter placed with Dr Fernandes. He has been having a lot of issues with leakage and smell and states that it fish s made his mood much worse. He has declined ECT with his psychiatrist, next f/u is in 3 week s. Scheduled for carpal tunnel release next week. Reviewed recent lab results with the patient. He confirms that he started the vitamin D3 washburn pplement as instructed. Outpatient Encounter Medications as of 07/04/2018 Medication Sig Dispense Refill cholecalciferol (CHOLECALCIFEROL) 5000 units TABS Take 5,000 Units by mouth Daily. DULoxetine (CYMBALTA) [address] capsule Take 90 mg by mouth Daily. DULoxetine (CYMBALTA) [address] capsule Take 60 mg by mouth Daily. [DISCONTINUED] Ergocalciferol (VITAMIN D2) 2000 units TABS daily [...] facility-administered encounter medications on file as of 07/04/2018. Allergies No active allergies Intolerance No active [...] catheter placement; Surgeon: Michael Fernandes MD; Location: [facility] MAIN OR CHOLECYCTOSTOMY CYSTOSCOPY N/A 04/19/2018 Procedure: Cystoscopy, bladder Botox, injection of urethral bulking agent; Surgeon: Gina Fernandes MD; Location: [facility] MAIN OR GASTRIC BYPASS SURGERY 2002 2 x KNEE SURGERY Bilateral LAP BAND [...] Systems Constitutional: Positive for malaise/fatigue. Negative for chills and fever. Musculoskeletal: Negative for falls. Neurological: Positive for weakness and headaches. Psychiatric/Behavioral: Positive for depression. Negative for suicidal ideas. Objective: BP 112/80 | Pulse 92 | Temp 36.5 C (97.7 F) (Temporal) | Resp 18 | Ht 1.778 m (5' 1 0") | Wt 89.8 kg (197 lb 15.6 oz) | SpO2 97% | BMI 28.41 kg/m Physical Exam Constitutional: He is oriented to person, place, and time and well-developed, well-nourishe d, and in no distress. No distress. Chronically ill appearing HENT: Head: Normocephalic. Pulmonary/Chest: Effort normal. Neurological: He is alert and oriented to person, place, and time. Skin: Skin is warm and dry. Psychiatric: Mood and affect normal. Reviewed [facility] progress note, it appears that his UA dip stick was abnormal, but wh en compared to his previous exams, is actually improved. Assessment/Plan: Assessment: 1. Chronic fatigue disorder 2. Anxiety associated with depression 3. Vitamin D deficiency 4. Persistent depressive disorder 5. Hypoglycemia Plan: Discussed patient case with Dr. Basilio. I think that the patient's profound fatigue and weak ness is likely multifactorial, but he does have a diagnosis of chronic fatigue disorder that has not had further work up. Will provide referral to [facility] infectious disease for further e valuation. He is already scheduled to return to [facility] on Monday for his surgery and will reac h out to his previous infusion MD to see if he can get in there. We had a long discussion ab out planning small frequent snacks to prevent further hypoglycemia and how to plan for rest periods during activity. Reviewed signs and symptoms that would warrant emergent evaluation. Patient verbalized unde rstanding. Return in about 1 month (around 08/01/2018), or if symptoms worsen or fail to improve. Patient understands, accepts, and agrees with this plan. Over 25 minuntes spent in face to face time with this patient today. > 50% of time chemical dependency counselor ing regarding the listed conditions, options for treatment, and possible risks, and coordina ting care. Please see assessment and plan for further details Lexie Cagle DNP, SOFIA, FELICITAS-CElectronically signed by SOFIA Sky 07/04/2018 3:40 PM PDTdocumented in this encounter Plan of [...] [place] | | | | | | [address] | | | | | | | | +--------+---------+ + + + + + +--------+ + + | Name | Type | Priori | Associated Diagnoses | Order Schedule | | | | ty | | | + + +--------+ + + | Infectious Disease, | Outpatient | Routin | Chronic fatigue | Ordered: 07/04/2018 | | External - AMB | Referral | e | disorder | | | Referral | | | | | + + +--------+ + + documented as of this encounter Visit Diagnoses + + | Diagnosis | + + | Chronic fatigue disorder - Primary Chronic fatigue syndrome | + + | Anxiety associated with depression Dysthymic disorder | + + | Vitamin D deficiency Unspecified vitamin D deficiency | + + | Persistent depressive disorder | + + | Hypoglycemia Hypoglycemia, unspecified | + + documented in this encounter
--- OUTSIDE RECORDS SUMMARY | ~2019-08-23 | XMS | Encounter Summary ---
Demographics + + + | Address | [address] | | | [place] [address] | + + + | Home Phone | | + + + | Preferred Language | Unknown | + + + | Marital Status | Single | + + + | Sikhism Affiliation | CONFUCIANISM | + + + [...] Team Providers + +------+ + | Care Golf Club Facer Name | Role | Phone | + [...] | +--------+ + + + + | 03/10/ | Telephone | Plastic and | Neto Lockhart, | Postoperative | | 2014 | | Reconstructive | [address] | Questions | | | | Surgery at [facility] [address] | | | | | [address] | [place], [place] | | | | | Mailcode: [place] | [address] | | | | | [facility] | [phone] | | | | | and [address], | | | | | | Building | | | | | | Floor [place], [place] | | | | | | [address] | | | | | | [phone] | | | +--------+ + + + [...] | | | | | | [place] [address] | | +--------+ + + + + documented as of this encounter Visit Diagnoses Not on filedocumented in this encounter"
--- OUTSIDE RECORDS SUMMARY | ~2019-08-23 | XMS | Encounter Summary ---
Demographics + + + | Address | [address] | | | [place] [address] | + + + | Home Phone | | + + + | Preferred Language | Unknown | + + + | Marital Status | Single | + + + | Congregational Affiliation | MU-ISM | + + + [...] Team Providers + +------+ + | Care Airplane Gas Tank Liner Assembler Name | Role | Phone | [...] Medicine Clinic at | Trevin Alberts NP [address] | | | | | [facility] 4th Floor [address] | | | | | [address] | [place], [place] | | | | | Mailcode: [facility] | [address] | | | | | [facility] | [phone] | | | | | and Healing, | | | | | | Building 1,4th Floor | | | | | | [place], [place] | | | | | | [address] | | | | | | [phone] | | | +--------+ + + + [...] | | | | | | [place] [address] | | +--------+ + + + + documented as of this encounter Visit Diagnoses Not on filedocumented in this encounter"
--- OUTSIDE RECORDS SUMMARY | ~2019-08-23 | XMS | Encounter Summary ---
Demographics + + + | Address | [address] | | | [place] [address] | + + + | Home Phone [...] [facility] | | | and Jadenana | + + + | Organization | [facility] | | | and [...] | | | | | [place] [address] | | + + + + + Care Team Providers + +------+ + | Care Motel Front Desk Attendant Name | Role | Phone | + +------+ + | Lexie Cagle | PCP | | | VEGETABLE THINNER | | | + +------+ + Encounter Details +--------+ + + + + | Date | Type | Department | Care Team | Description | +--------+ + + + + | 02/07/ | Anti-coag | [facility] | CagleLexie hankins | | | 2019 | Telephone | MEDICINE [address] | [address]IA [address] | | | | | Street [place] | [address] [place] | | | | | [place] [address] | [place] [address] | | | | | [phone] | [phone] | | | | | | | [...] of this encounter Progress Notes Kerline Irizarry, Online Facilitator - 02/07/2019 7:49 AM PSTCalled and spoke to patient and a dvised on INR results and the dosages to take during the week. Re check INR in 1 week. Prabha wang verbalized understanding.Electronically signed by Kerline Irizarry Online Facilitator at 01/25 8:24 AM Kerline Jerry Medical Assistant - 02/07/2019 7:49 AM PSTLeft message to call back Lexie Thompson APRN - 02/07/2019 7:49 AM PSTINR slightly elevated as expected d ue to antibiotic use. He should take 5 mg today, then change to 5 mg MWF, 10 mg //Mon/Mon . Recheck INR in 1 week documented in this encounter [...] [place] | | | | | | [address] | | | | | | | | +--------+---------+ + + + documented as of this encounter Procedures + +--------+ + + + | Procedure Name | Priori | Date/Time | Associated Diagnosis | Comments | | | ty | | | | + +--------+ + + + | EXTERNAL LAB: | Routin | 02/06/2019 | | Results for this | | PROTIME INR | e | | | procedure are in the | | | | | | results section. | + +--------+ + + + documented in this encounter Results External Lab: Mar INR (02/06/2019) + +---------+ + + + | Component | Value | Ref Range | Performed | Pathologist | | | | | At | Signature | + +---------+ + + + | INR, | 3.4 (A) | 0.9 - 1.2 | | | | External | | | | | + +---------+ + + + + + | Specimen | + + | Blood | + + documented in this encounter Visit Diagnoses Not on filedocumented in this encounter"
--- OUTSIDE RECORDS SUMMARY | ~2019-08-23 | XMS | Encounter Summary ---
Demographics + + + | Address | [address] | | | [place] [address] | + + + | Home Phone | | + + + | Preferred Language | Unknown | + + + | Marital Status | Single | + + + | Taoism Affiliation | CATHOLIC | + + + [...] Team Providers + +------+ + | Care Scrap Crane Operator Name | Role | Phone | + +------+ + | Jose Hameed MD | PCP | | + +------+ + Encounter Details +--------+------+ + + + | Date | Type | Department | Care Team | Description | +--------+------+ + + + | 09/19/ | Lab | Laboratory at [facility] | | Multiple sclerosis | | 2017 | | [address] | | ([facility]) | | | | [place], [place] | | | | | | [address] | | | | | | [phone] | | | +--------+------+ + + + [...] | | | | | | [place] [address] | | +--------+ + + + + [...] + + + + + | [facility] | [address] | [place] [address] | | | SERVICES, [place] [facility] | | | | | HEALTH [...] | + + + + + | [facility] | [address] | [place] [address] | | | SERVICES, CORE | [address] [...] | + + + + + | [facility] | [address] | [place] [address] | | | SERVICES, CORE | PARK [...] + + + + + | [facility] | [address] | [place] [address] | | | SERVICES, CORE | PARK [...] | | | LABORATORY | | | [facility] | | | SERVICES, | | | [...] | + + + + + | [facility] | [address] | [place] [address] | | | SERVICES, CORE | [address] | | | + + + + + documented in this encounter Visit Diagnoses + + | Diagnosis | + + | Multiple sclerosis (HCC) Multiple sclerosis | + + documented in this encounter"
--- OUTSIDE RECORDS SUMMARY | ~2019-08-23 | XMS | Encounter Summary ---
Demographics + + + | Address | [address] | | | [place] [address] | + + + | Home Phone | | + + + | Preferred Language | Unknown | + + + | Marital Status | Single | + + + | Yarsani Affiliation | CATHOLIC | + + + | Race | White | + + + | Ethnic Group | Not or | + + + Author + + + | Author | [facility] | + + + | Organization | [facility] | + + + | Address | Unknown | + + + | Phone | Unavailable | + + + Support + + +---------+ + | Name | Relationship | Address | Phone | + + +---------+ + | Theodore Marquez | ECON | Unknown | | + + +---------+ + Care Team Providers + +------+ + | Care Corrections Specialist Name | Role | Phone | [...] (MRI Results) | | 2016 | | [place] [facility] & | [address] | | | | | Healing [address] [place], | | | | | [place] Mailcode: MK8C | [place] [address] | | | | | [facility] | [phone] | | | | | and [address], | | | | | | [facility] | | | | | | [place], [place] | | | | | | [address] | | | | | | [phone] | | | +--------+ + + + [...] | | | | | | [place] [address] | | +--------+ + + + + documented as of this encounter Visit Diagnoses Not on filedocumented in this encounter"
--- OUTSIDE RECORDS SUMMARY | ~2019-08-23 | XMS | Encounter Summary ---
Demographics + + + | Address | [address] | | | [place] [address] | + + + | Home Phone | | + + + | Preferred Language | Unknown | + + + | Marital Status | Single | + + + | Baptist Affiliation | MU-ISM | + + + | Race | White | + + + | Ethnic Group | Not or | + + + Author + + + | Author | [facility] | + + + | Organization | [facility] | + + + | Address | Unknown | + + + | Phone | Unavailable | + + + Support + + +---------+ + | Name | Relationship | Address | Phone | + + +---------+ + | Theodore Marquez | ECON | Unknown | | + + +---------+ + Care Team Providers + +------+ + | Care Store Mgr Name | Role | Phone | + +------+ + | Trevin Delacruz MD | PCP | | + +------+ + Reason for Visit + + + | Reason | Comments | + + + | Postoperative visit | Eval drain tube blockage OP 03/03, Panniculectomy, global thru | | | 06/01/15-mks | + + + Encounter Details +--------+---------+ + + + | Date | Type | Department | Care Team | Description | +--------+---------+ + + + | 03/11/ | Office | Plastic and | Cate Bright, | 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 | FLORI [address] [facility] | (Primary Dx); S/P | | | | Surgery at [facility] [address] | panniculectomy | | | | [address] | [place], [place] | | | | | Mailcode: [facility] | [address] | | | | | [facility] | [phone] | | | | | and Healing, | | | | | | [facility] | | | | | | Floor [place], [place] | | | | | | [address] | | | | | | [phone] | | | +--------+---------+ + + + [...] + | Blood Pressure | 137/81 | 03/11/2015 12:59 PM | | | | | PST | | + + + + + | Pulse | 76 | 03/11/2015 12:59 PM | | | | | PST | | + + + + + | Temperature | - | - | | + + + + + | Respiratory Rate | 16 | 03/11/2015 12:59 PM | | | | | PST | | + + + + + | Oxygen Saturation | 99% | 03/11/2015 12:59 PM | | | | | PST | | + + + + + | Inhaled Oxygen | - | - | | | Concentration | | | | + + + + + | Weight | 88.5 kg (195 lb) | 03/11/2015 12:59 PM | | | | | PST | | + + + + + | Height | - | - | | + + + + + | Body Mass Index | 27.98 | 03/03/2015 6:00 AM | | | | | PST | | + + + + + documented in this encounter Progress Notes Cate Bright PA-C - 03/11/2015 1:04 PM [facility] Division of Plastic and Reconstructive Surgery Post operative note POD# 8 s/p Panniculectomy. Findings: Total weight of tissue removed from his abdominal wall was 1500 g. HPI: Mian Marquez is a 65 y.o. male who presents today with concern for drains not functioning p roperly. Patient states his drains are not holding suction. He has had minimal output from h is right drain. He is otherwise doing well and without complaint. patient states he is weari ng his compression garment but it rolls down. He's not sure if he's wearing it high enough. PE: Vitals: BP 137/81 | Pulse 76 | RR 16 | Wt 88.451 kg (195 lb) | SpO2 99% | BMI 27.98 kg/(m^2 ) General Appearance: Well-developed, well-nourished male in no apparent distress. abd incision healing well. No dehiscence. Running nylon suture intact. No seroma. No hemato ma. Minimal swelling. Drains- right drain pushing out of body beyond black dot. No negative pressure in bulb. Ser osang output. Left drain with serosang output. Holds suction, but inflates after few minutes . Impression: S/P: panniculectomy Doing well Right drain removed. Left drain stripped and emptied. Plan: Continue compression garment. Maintain negative pressure in drain as best as possible. RTC as scheduled. I answered all questions and discussed all examination findings and plan with the patient. The patient indicates understanding of these issues and agrees to the plan. Cate Bright PA-C Division of Plastic & Reconstructive Surgery [facility] 03/11/2015 1:04 PM documented in this en counter Plan of Treatment +--------+ + + + + | Date | Type | Specialty | Care Team | Description | +--------+ + + + + | 10/31/ | Appointment | Hematology & | Onc, Gen [address] | | | 2019 | | Oncology | [address] [place], | | | | | | [place] [address] | | +--------+ + + + + documented as of this encounter Visit Diagnoses + + | Diagnosis | + + | Lipodystrophy - Primary | + + | S/P panniculectomy | + + documented in this encounter"
--- OUTSIDE RECORDS SUMMARY | ~2019-08-23 | XMS | Encounter Summary ---
Demographics + + + | Address | [address] | | | [place] [address] | + + + | Home Phone | | + + + | Preferred Language | Unknown | + + + | Marital Status | | + + + | Jainism Affiliation | Unknown | + + + | Race | Unknown | + + + | Ethnic Group | Unknown | + + + Author + + + | Author | [facility] | | | and Jadenana | + + + | Organization | [facility] | [...] | | | | | [place] [address] | | + + + + + Care Team Providers + +------+ + | Care Research Hydraulic Engineer Name | Role | Phone | + +------+ + | Lexie Cagle | PCP | | | MACHINE ADJUSTER | | | + +------+ + Reason for Visit + + + | Reason | Comments | + + + | Appointment Question | | + + + Encounter Details +--------+ + + + + | Date | Type | Department | Care Team | Description | +--------+ + + + + | 12/17/ | Telephone | [facility] | Michael Fernandes | Appointment Question | | 2019 | | [address] | MD Yaw [address] | | | | | PRECIOUS [place] | PRECIOUS EM | | | | | [address] | [address] | | | | | [phone] | | | +--------+ + + + [...] 11/12/ | Office | Sleep Medicine | [place], Laith D, PA | | | 2019 | Visit | | [address] | | | | | | PRECIOUS [place] | | | | | | [address] | | | | | | | | +--------+---------+ + + + documented as of this encounter Visit Diagnoses Not on filedocumented in this encounter"
--- OUTSIDE RECORDS SUMMARY | ~2019-08-23 | XMS | Encounter Summary ---
Demographics + + + | Address | [address] | | | [place] [address] | + + + | Home Phone | | + + + | Preferred Language | Unknown | + + + | Marital Status | Single | + + + | Caodaism Affiliation | ANGLICAN | + + + [...] Team Providers + +------+ + | Care Garnett Room Worker Name | Role | Phone [...] | Clinics at S | MD Patrick [address] | | | | | [facility] | [address], | | | | | for Health and | [place] [address] | | | | | Healing [address] | [phone] | | | | | [place] | | | | | | [address] | | | | | | [phone] | | | +--------+ + + + [...] | | | | | | [place] [address] | | +--------+ + + + + documented as of this encounter Visit Diagnoses Not on filedocumented in this encounter"
--- OUTSIDE RECORDS SUMMARY | ~2019-08-23 | XMS | Encounter Summary ---
Demographics + + + | Address | [address] | | | [place] [address] | + + + | Home Phone | | + + + | Preferred Language | Unknown | + + + | Marital Status | | + + + | Voodoo Affiliation | Unknown | + + + | Race | Unknown | + + + | Ethnic Group | Unknown | + + + Author + + + | Author | [facility] | | | and Jadenana | + + + | Organization | [facility] | [...] | | | | | [place] [address] | | + + + + + Care Team Providers + +------+ + | Care Mechanical Laboratory Technician Name | Role | Phone | + +------+ + | Lexie Cagle | PCP | | | ELECTRIC MOTOR TESTER | | | + +------+ + Reason for Visit + + + | Reason | Comments | + + + | Follow-up | urge incontinence | + + + Encounter Details +--------+---------+ + + + | Date | Type | Department | Care Team | Description | +--------+---------+ + + + | 10/30/ | Office | [facility] | Michael Fernandes | Neurogenic bladder | | 2019 | Visit | [address] | MD Yaw [address] | (Primary Dx); Urge | | | | [place] | [address] [place] | incontinence; | | | | [address] | [address] | 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 We discussed [facility] surgical options including bladder augmentation with possible bladder neck closure as wel l as ileal conduit. These procedures were discussed in detail as well as the many possible complications and side effects. Greater than 15 minutes was spent wiuh-kr-zdnu with the patient and greater than 50% [...] catheter placement; Surgeon: Michael Fernandes MD; Location: [facility] MAIN OR CHOLECYCTOSTOMY CYSTOSCOPY N/A 04/19/2018 Procedure: Cystoscopy, bladder Botox, injection of urethral bulking agent; Surgeon: Gina Fernandes MD; Location: [facility] MAIN OR GASTRIC BYPASS SURGERY 2001 2 [...] have not thoroughly proofread this note, and electric motor fitter errors are very likely to occur. CC: Lexie Cagle APRN documented in this encounter Plan of Treatment +--------+---------+ + + + | Date | Type | Specialty | Care Team | Description | +--------+---------+ + + + | 11/12/ | Office | Sleep Medicine | Laith Sheffield PA | | | 2019 | Visit | | [address] | | | | | | [place] | | | | | | [address] [...]
--- OUTSIDE RECORDS SUMMARY | ~2019-08-23 | XMS | Encounter Summary ---
Demographics + + + | Address | [address] | | | [place] [address] | + + + | Home Phone [...] Team Providers + +------+ + | Care Dental Detail Representative Name | Role | Phone | [...] (Primary | | | | Surgery at [facility] [address] | Dx); [facility] | | | | [address] | [place], [place] | surgery status | | | | Mailcode: [facility] | [address] | | | | | [facility] | [phone] | | | | | and Healing, | | | | | | Building [address], 5th | | | | | | Floor [place], [place] | | | | | | [address] | | | | | | [phone] | | | +--------+---------+ + + + [...] Duque MD PLASTIC AND RECONSTRUCTIVE SURGERY AT [facility] [address] Mail Code: [place] [id number] Nasrin Arroyo MD - 03/23/2015 9:32 AM PST PLASTIC SURGERY POSTOPERATIVE NOTE Procedure: s/p panniculectomy on 03/03/2015 Attending Physician: Neto Lockhart MD Patient reports he is doing well. [...] removal in 2 weeks. Nasrin Becerra MD Draw In Hand Department of Plastic Surgery [facility] 03/23/2015 9:32 AM documented in this e ncounter Plan of Treatment +--------+ + + + + | Date | Type | Specialty | Care Team | Description | +--------+ + + + + | 10/31/ | Appointment | Hematology & | Onc, Gen [address] | | | 2019 | | Oncology | [address] [place], | | | | | | [place] [address] | | +--------+ + + + + documented as of this encounter Visit Diagnoses + + | Diagnosis | + + | Intertriginous candidiasis - Primary Candidiasis of skin and nails | + + | LAP-[facility] surgery status Bariatric surgery status | + + documented in this encounter"
--- OUTSIDE RECORDS SUMMARY | ~2019-08-23 | XMS | Encounter Summary ---
Demographics + + + | Address | [address] | | | [place] [address] | + + + | Home Phone | | + + + | Preferred Language | Unknown | + + + | Marital Status | Single | + + + | Zoroastrianism Affiliation | TENRIISM | + + + [...] Team Providers + +------+ + | Care Medical Certification Specialist Name | Role | Phone | + +------+ + | Jose Hameed MD | PCP | | + +------+ + Encounter Details +--------+ + + + + | Date | Type | Department | Care Team | Description | +--------+ + + + + | 12/16/ | Telephone | Neurology at | Christian Maldonado MD | | | 2016 | | [facility] & | [address] | | | | | Healing [address] | [address] [place], | | | | | [place] Mailcode: CH8C | [place] [address] | | | | | [facility] | [phone] | | | | | and Healing, | | | | | | | | | | | | [place], [place] | | | | | | [address] | | | | | | [phone] | | | +--------+ + + + [...] | | | | | | [place] [address] | | +--------+ + + + + documented as of this encounter Visit Diagnoses Not on filedocumented in this encounter"
--- OUTSIDE RECORDS SUMMARY | ~2019-08-23 | XMS | Encounter Summary ---
Demographics + + + | Address | [address] | | | [place] [address] | + + + | Home Phone [...] + | Author | [facility] | | | and Jadenana | + + + | Organization | [facility] | | | and Jadenana [...] | | | | | [place] [address] | | + + + + + Care Team Providers + +------+ + | Care Biomedical Engineering Technologist Name | Role | Phone | + +------+ + | Lexie Cagle | PCP | | | COLOR BLENDER | | | + +------+ + Encounter [...] [place] | | | | | [place] [address] | [place] [address] | | | | | [phone] | [phone] | | | | | | | [...] of this encounter Progress Notes Kerline Irizarry, Day Trader - 09/28/2018 3:20 PM PDTCalled and left [...] 2019 | Visit | | [address] | | | | | | [place] | | | | | | [address] | | | | | | | [...]
--- OUTSIDE RECORDS SUMMARY | ~2019-08-23 | XMS | Encounter Summary ---
Demographics + + + | Address | [address] | | | [place] [address] | + + + | Home Phone | | + + + | Preferred Language | Unknown | + + + | Marital Status | | + + + | Caodaism Affiliation | Unknown | + + + | Race | Unknown | + + + | Ethnic Group | Unknown | + + + Author + + + | Author | [facility] | | | and Jadenana | + + + | Organization | [facility] [...] | | | | | [place] [address] | | + + + + + Care Team Providers + +------+ + | Care Raw Material Handler Name | Role | Phone | [...] + | 06/26/ | Virtual | [facility] | Abdoulaye Bauer | CHRISTEN (obstructive | | 2020 | Office | SLEEP DISORDER [address] | MD [address] | sleep apnea) | | | Visit | [address] [place] | [address] [facility] | (Primary Dx); RLS | | | | [place] [address] | [place] [address] | (restless legs | | | | [phone] | [phone] | syndrome); Organic | | | | [...] sleeping is faxed to in-home medical in [facility]. We will arrange for a telephone follow-up in 1 week with our clinical sleep educator. Like to see the patient in follow-up in 6 weeks at which time I am hopeful that we wi ll be doing cgrz-zc-[id number] visits again. Clinical discussion length: 11-20 min (20157) Patient has not been seen in office within the past 7 days, and outcome of this call is not to recommend soonest available office visit. Participants: Patient Parts of this note were dictated using [employer] voice recognition software. Occasional wrong - word [...] 2019 | Visit | | [address] | | | | | | [place] | | | | | | [address] | | | | | | | [...]
--- OUTSIDE RECORDS SUMMARY | ~2019-08-23 | XMS | Encounter Summary ---
Demographics + + + | Address | [address] | | | [place] [address] | + + + | Home Phone | | + + + | Preferred Language | Unknown | + + + | Marital Status | Single | + + + | Hoahaoism Affiliation | VOODOO | + + + | Race | White | + + + | Ethnic Group | Not or | + + + Author + + + | Author | [facility] | + + + | Organization | [facility] | + + + | Address | Unknown | + + + | Phone | Unavailable | + + + Support + + +---------+ + | Name | Relationship | Address | Phone | + + +---------+ + | Theodore Marquez | ECON | Unknown | | + + +---------+ + Care Team Providers + +------+ + | Care Manager Of Drilling Name | Role | Phone | + [...] | | | | [address] | [place], [place] | | | | | Mailcode: OP06 | [address] | | | | | Outpatient Clinic | [phone] | | | | | [facility], Room 4300 | | | | | | [place], [place] | | | | | | [address] | | | | | | [phone] | | | +--------+ + + + [...] | | | | | | [place] [address] | | +--------+ + + + + [...] | Kaity/landry | | | | | [facility] | | | | | | Laboratories. | | | | + + + + + + + + | Specimen | + + | | + + + + + + + | Performing | Address | City/State/Zipcode | Phone Number | | Organization | | | | + + + + + | [facility] | [address] | [place] [address] | | | LABORATORY | | | | + + + + + documented in this encounter Visit Diagnoses Not on filedocumented in this encounter"
--- OUTSIDE RECORDS SUMMARY | ~2019-08-23 | XMS | Encounter Summary ---
Demographics + + + | Address | [address] | | | [place] [address] | + + + | Home Phone | | + + + | Preferred Language | Unknown | + + + | Marital Status | | + + + | Yarsanism Affiliation | Unknown | + + + | Race | Unknown | + + + | Ethnic Group | Unknown | + + + Author + + + | Author | [facility] | | | and Jadenana | + + + | Organization | [facility] | | [...] | | | | | [place] [address] | | + + + + + Care Team Providers + +------+ + | Care Glove Cuffer Name | Role | Phone | + +------+ + | Lexie Cagle | PCP | | | PRODUCT DEVELOPMENT SPECIALIST | | | + +------+ + [...] | | | | | disorder | PRODUCT DEVELOPMENT SPECIALIST [address] | | | | | | [address] | [place], | | | | | | [place], | [place] | | | | | | [place] [address] | [address] | | | | | | Phone: | Phone: | | | | | | [phone] | [phone] | | | | | | Fax: | Fax: | | | | | | [phone] | [phone] | +--------+ + + + + + Reason for Visit + + + | Reason | Comments | + + + | Follow-up | Chronic Fatigue | + + + Encounter Details +--------+---------+ + + + | Date | Type | Department | Care Team | Description | +--------+---------+ + + + | 07/04/ | Office | [facility] | Lexie Cagle | Chronic fatigue | | 2019 | Visit | MEDICINE [address] | [address] | disorder (Primary | | | | Street [place] | [address] [place] | Dx); Anxiety | | | | [place] [address] | [place] [address] | associated with | | | | [phone] | [phone] | depression; Vitamin | | | | [...] he went to the [facility] [place] in [facility]. While there, he had labs done and was told that they "don't look good" and advised to have further evaluation. T odilia, he feels slightly better, but reports that he just wants to be admitted to the [facility] to try to figure out what is [...] catheter placement; Surgeon: Michael Fernandes MD; Location: [facility] MAIN OR CHOLECYCTOSTOMY CYSTOSCOPY N/A 04/19/2018 Procedure: Cystoscopy, bladder Botox, injection of urethral bulking agent; Surgeon: Gina Fernandes MD; Location: [facility] MAIN OR GASTRIC BYPASS SURGERY 2002 2 [...] dry. Psychiatric: Mood and affect normal. Reviewed [facility] progress note, it appears that his UA [...] further work up. Will provide referral to [facility] infectious disease for further e valuation. He is already scheduled to return to [facility] on Monday for his surgery and [...] this patient today. > 50% of time certified addiction counselor ing regarding the listed conditions, options [...] [place] | | | | | | [address] | | | | | | | [...]
--- OUTSIDE RECORDS SUMMARY | ~2019-08-23 | XMS | Encounter Summary ---
Demographics + + + | Address | [address] | | | [place] [address] | + + + | Home Phone | | + + + | Preferred Language | Unknown | + + + | Marital Status | Single | + + + | Hoahaoism Affiliation | SIKH | + + + [...] Team Providers + +------+ + | Care Gas Appliance Servicer Name | Role | Phone | + +------+ + | Jose Hameed MD | PCP | | + +------+ + Reason for Visit +--------+ + | Reason | Comments | +--------+ + | Other | PA Request modafinil | +--------+ + Encounter Details +--------+ + + + + | Date | Type | Department | Care Team | Description | +--------+ + + + + | 09/23/ | Documentati | Neurology at | Christian Maldonado MD | Other (PA Request | | 2017 | on | [facility] & | [address] | modafinil) | | | | Healing [address] | [address] [facility], | | | | | [place] Mailcode: CH8C | [place] [address] | | | | | [facility] | [phone] | | | | | and Healing, | | | | | | Building | | | | | | Floor [place], [place] | | | | | | [address] | | | | | | [phone] | | | +--------+ + + + [...] | | | | | | [place] [address] | | +--------+ + + + + documented as of this encounter Visit Diagnoses Not on filedocumented in this encounter"
--- OUTSIDE RECORDS SUMMARY | ~2019-08-23 | XMS | Encounter Summary ---
Demographics + + + | Address | [address] | | | [place] [address] | + + + | Home Phone | | + + + | Preferred Language | Unknown | + + + | Marital Status | Single | + + + | Yazidi Affiliation | FAITH | + + + [...] Team Providers + +------+ + | Care Professor Of Biological Sciences Name | Role | Phone | + [...] Questions | | | | Surgery at [facility] [address] | | | | | [address] | [place], [place] | | | | | Mailcode: [place] | [address] | | | | | [facility] | [phone] | | | | | and [address], | | | | | | Building | | | | | | Floor [place], [place] | | | | | | [address] | | | | | | [phone] | | | +--------+ + + + [...] | | | | | | [place] [address] | | +--------+ + + + + documented as of this encounter Visit Diagnoses Not on filedocumented in this encounter"
--- OUTSIDE RECORDS SUMMARY | ~2019-08-23 | XMS | Encounter Summary ---
Demographics + + + | Address | [address] | | | [place] [address] | + + + | Home Phone | | + + + | Preferred Language | Unknown | + + + | Marital Status | Single | + + + | Caodaism Affiliation | RESTORATIONIST | + + + [...] Team Providers + +------+ + | Care Copper Tapper Name | Role | Phone | + [...] | | | | | [address] [place], | | | | | | [place] [address] | | | +--------+ + + + [...] | | | | | | [place] [address] | | +--------+ + + + + [...] | + + | 02/20/2002 11:01 AM [facility] Anesthesia PostOp Report | | | | Patient: MIAN MARQUEZ [facility] Rec: [id number] Sex M Bdate: 1950 | | Date/Time Data | | Entered Into [facility] | | Anesth PostOp | | Surgery Date [id number] 02/20/02 11:01 | | Anesthesiologist JOYA GIRARD 02/20/02 11:01 | | Resident Anesthesiolog KRZYSZTOF MOORE 02/20/02 11:01 | | | + + documented in this encounter Visit Diagnoses Not on filedocumented in this encounter"
--- OUTSIDE RECORDS SUMMARY | ~2019-08-23 | XMS | Encounter Summary ---
Demographics + + + | Address | [address] | | | [place] [address] | + + + | Home Phone [...] | Author | [facility] | | | and Jadenana | + + + | Organization | [facility] | [...] | | | | | [place] [address] | | + + + + + Care Team Providers + +------+ + | Care Straw Hat Brusher Name | Role | Phone | + +------+ + | Lexie Cagle | PCP | | | SYSTEM DEVELOPMENT MANAGER | | | + +------+ + [...] | | | | [place] | | [address] Phone: | | | | | [address] | | [phone] | | | | | BLADDER | | Fax: | | | | | | | [phone] | +--------+--------+ + + + + Encounter [...] | | | | | [address] | [place], [place] | | | | | [place], [place] | [address] | | | | | [address] | | | | | | [phone] | | | +--------+ + + + [...] 06/20/18 1140 by | | eral | [id number] catheter system; | Cate De Paz RN [...] 2019 | Visit | | [address] | | | | | | [place] | | | | | | [address] | | | | | | | [...]
--- OUTSIDE RECORDS SUMMARY | ~2019-08-23 | XMS | Encounter Summary ---
Demographics + + + | Address | [address] | | | [place] [address] | + + + | Home Phone | | + + + | Preferred Language | Unknown | + + + | Marital Status | Single | + + + | Adventism Affiliation | PENTECOSTAL | + + + [...] Team Providers + +------+ + | Care Vibrator Equipment Tester Name | Role | Phone | + +------+ + | Jose Hameed MD | PCP | | + +------+ + Encounter Details +--------+---------+ + + + | Date | Type | Department | Care Team | Description | +--------+---------+ + + + | 07/25/ | Office | Neurology at | Christian Maldonado MD | Multiple sclerosis | | 2019 | Visit | [facility] & | [address] | ([facility]) (Primary Dx); | | | | Healing [address] | [address] [place], | Vitamin B12 | | | | Ave Mailcode: CH8C | [place] [address] | deficiency; Vitamin | | | | [place] [facility] | [phone] | D deficiency; | | | | and Healing, | | Persistent | | | | Building | | depressive disorder | | | | Floor [place], [place] | | | | | | [address] | | | | | | [phone] | | | +--------+---------+ + + + [...] + + + | Blood Pressure | 136/73 | 07/25/2018 9:01 AM | | | | | PDT | | + + + + + | Pulse | 64 | 07/25/2018 9:01 AM | | | | | [...] + + + + | Weight | 90.2 kg (198 lb 14.4 | 07/25/2018 9:01 AM | | | | oz) | PDT | | + + + + + | Height | - | - | | + + + + + | Body Mass Index | 28.54 | 10/31/2016 3:28 PM | | | | | PDT | | + + + + + documented in this encounter Patient Instructions Patient Instructions Christian Maldonado MD - 07/25/2018 9:10 AM PDTSYMMETREL (AMANTADINE) Amantadine is used to treat Parkinson's disease and to prevent the flu. It was discovered accidentally that it helps the fatigue that troubles many people with multiple sclerosis. W e still do not know why it helps fatigue in multiple sclerosis. DOSE AND TREATMENT INFORMATION Amantadine comes in a red 100mg tablet. You will begin by taking one tablet a day at morning. Continue this dose for one week. If you do not see any improvement in one week AND you have no side effects, you may increas e the dose by one tablet per day. You will take one tablet at AM and a second tablet at noon . Continue the drug at two tablets a day for one month to see if it will be effective for you . Call us some time during the month to report on how you are doing. Amantadine can make some medical conditions worse. These include: Glaucoma Ulcerative colitis Heart disease Hypertension (high blood pressure) If you have any of these diseases, tell us BEFORE taking amantadine. POSSIBLE SIDE EFFECTS AND WHAT YOU SHOULD DO Inability to pass urine - Stop the medicine and call us. Skin rashes and other allergic reactions - Stop the medicine and call us. Swelling of the legs or discoloration of legs - Stop the medicine and call us. Anxiety, irritability, sedation, depression, or insomnia - These should improve in 1 to 2 w eeks. If you are concerned about your symptoms, call us. Dry mouth, blurred vision, light headedness - These should improve in 1 to 2 weeks. If you are concerned about your symptoms, call us. Constipation - Increase the amount of liquids you drink and add bulk (fiber) to your diet. If you are concerned about your symptoms, call us. If you have any questions or problems, call between 8:30 am and 4:30 pm through Monday. For EMERGENCIES on weekends and evenings, call and ask for the staff neurolo gist motion picture set up worker. 1989, [facility] documented in this encounter Progress Notes Christian Maldonado MD - 07/25/2018 9:10 AM PDT MULTIPLE SCLEROSIS CLINIC Medical Problems 1. Multiple sclerosis Avonex 2150-5588 (treatment for 2 years) Rebif for 2.5 [...] replaced with paddles and non- rechargeable battery ([employer] stimulator) in spring 2016. Battery replaced with MRI compatible battery Dec 2017 per patient report. 9. CHRISTEN 10.s/p Right SI joint fusion Dec 2017. 11. Suprapubic catheter placed 04/2018 INTERVAL HISTORY: Mr. Marquez RTC for follow up. He reports he had a suprapubic catheter p laced a couple months ago. Does not like it. He had surgery on his left wrist for a saphol unate dislocation. He reports continued fatigue and gait difficulties. He is no longer on Provigil as he gaby ot afford it. He continues to have significant depression. His psychiatrist has discussed ECT but he does not feel he can do this living in [place]. He has no other complaints today. Current Outpatient Prescriptions Medication Sig Cholecalciferol, Vitamin D3, (VITAMIN D3) 5,000 unit oral tablet Take 5,000 Units by [facility] once daily. cyanocobalamin 1,000 mcg/mL injection solution Inject into the muscle (IM). DULoxetine 30 mg oral capsule,delayed release(DR/EC) Take 1 capsule by mouth once daily . To be taken with 60mg capsule daily for total dose of 90mg day. Indications: major depress amaury disorder DULoxetine 60 mg oral capsule,delayed release(DR/EC) Take 1 capsule by mouth once daily . To be taken with 30mg capsule for total daily dose of 90mg gabapentin 300 mg oral capsule Take 1 [...] Adhesive tape Physical Examination: Vital Signs: BP 136/73 (BP Location: Left upper arm, Patient Position: Sitting) | Pulse 64 | Wt 90.2 kg (198 lb 14.4 oz) | BMI 28.54 kg/m | BSA 2.11 m General: He is no apparent physical stress. [...] He has 4+/5 strength throughout the Right UE (except d istally which is casted). He has 4-/5 HF, 4+/5 KE/KF and 4/5 ADF R LE. Tone is mildly inc reased R. Reflexes are 2 UE 3 LE symmetrically throughout. Sensory exam: light touch repor ts slightly decreased throughout R compared to L. Vibratory sensation in decrease distally, all 4 extremities. Cerebellar testing shows slowed nyqbwi-le-dsuh. Gait: Antalgic casual gait, very difficult to tandem walk as he had to reach out for support. 25 ft walk perform ed in 7.88 sec without aid. Vitamin D: 11 (05/2018) monitored by PCP Vitamin B12 320 Impression: 1. Multiple sclerosis 2. Depression. 3. Hx Benito-en-Y with hx of B12 deficiency. 4. Vitamin D deficiency. 5. Complaints of worsening cognitive function. 6. Fatigue 7. Low back pain Mian reports he has been stable. He is recovering from wrist surgery. He continues to wo rk with psychiatry regarding his depression. Plan: 1. RTC in 6 months with 2. Continue current medications. I spent 25 minutes with the patient with >50% counseling on MS treatment and symptoms manag ement. Christian Wright MD - 03/2018 9:10 AM PDT MULTIPLE SCLEROSIS CLINIC Medical Problems 1. Multiple sclerosis Avonex 1696-7954 (treatment for 2 years) Rebif for 2.5 [...] replaced with paddles and non- rechargeable battery ([employer] stimulator) in spring 2016. Battery replaced with MRI compatible battery Dec 2017 per patient report. 9. CHRISTEN 10.s/p Right SI joint fusion Dec 2017. 11. Suprapubic catheter placed 04/2018 INTERVAL HISTORY: Mr. Marquez [facility] for follow up. He reports he had a suprapubic catheter p laced a couple months ago. Does not like it. He had surgery on his left wrist for a saphol unate dislocation. He reports continued fatigue and gait difficulties. He is no longer on Provigil as he agby ot afford it. He continues to have significant depression. His psychiatrist has discussed ECT but he does not feel he can do this living in [place]. Current Outpatient Prescriptions Medication Sig Cholecalciferol, Vitamin D3, (VITAMIN D3) 5,000 unit oral tablet Take 5,000 Units by [facility] once daily. cyanocobalamin 1,000 mcg/mL injection solution Inject into the muscle (IM). DULoxetine 30 mg oral capsule,delayed release(DR/EC) Take 1 capsule by mouth once daily . To be taken with 60mg capsule daily for total dose of 90mg day. Indications: major depress amaury disorder DULoxetine 60 mg oral capsule,delayed release(DR/EC) Take 1 capsule by mouth once daily . To be taken with 30mg capsule for total daily dose of 90mg gabapentin 300 mg oral capsule Take 1 [...] Adhesive tape Physical Examination: Vital Signs: BP 136/73 (BP Location: Left upper arm, Patient Position: Sitting) | Pulse 64 | Wt 90.2 kg (198 lb 14.4 oz) | BMI 28.54 kg/m | BSA 2.11 m General: He is no apparent physical stress. [...] 4 extremities. Cerebellar te sting shows slowed hqnxuh-fe-wljk. Gait: Antalgic casual gait, very difficult to tandem wa lk as he had to reach out for support. 25 ft walk performed in 7.88 sec without aid. Vitamin D: 11 (05/2018) monitored by PCP Vitamin B12 320 Impression: 1. Multiple sclerosis 2. Depression. 3. Hx Ebnito-en-Y with hx of B12 deficiency. 4. Vitamin D deficiency. 5. Complaints of worsening cognitive function. 6. Fatigue 7. Low back pain Mian reports he has been stable. He is interested in undergoing an MRI now that he has fish d changes to his SCS made that would allow for imaging. He would like to have this done bef [employer] (formerly known [facility] [employer]) moving in 2 weeks. He will continue his current medications. Plan: 1. RTC in 6 months. 2. Continue current medications. I spent 25 minutes with the patient [...] | | | | | | [place] [address] | | +--------+ + + + + documented as of this encounter Visit Diagnoses + + | Diagnosis | + + | Multiple sclerosis (HCC) - Primary Multiple sclerosis | + + | Vitamin B12 deficiency Other B-complex deficiencies | + + | Vitamin D deficiency | + + | Persistent depressive disorder | + + documented in this encounter"
--- OUTSIDE RECORDS SUMMARY | ~2019-08-23 | XMS | Encounter Summary ---
Demographics + + + | Address | [address] | | | [place] [address] | + + + | Home Phone | | + + + | Preferred Language | Unknown | + + + | Marital Status | Single | + + + | Jew Affiliation | SABIANIST | + + + [...] Team Providers + +------+ + | Care Openstack Developer Name | Role | Phone | [...] as of this encounter Progress Notes Interface, Appliance Adjuster In - 10/24/2004 8:57 AM PDT [id number] 03/15/2004 03/15/2004 [id number] RAUL WERNER [address] [id number] or March 15, 2004 Claudy Junior M.D. [address] [facility] [place] [address] RE: MIAN MARQUEZ MR #: [id number] Dear Dr. Junior: Thank you for referring [...] depression that is refractory to treatment. Sincerely, eLi Huitron M.D. MYKE / VICTOR M [id number] / [id number] / [id number] / documented i n this encounter Plan of Treatment +--------+ + + + + | Date | Type | Specialty | Care Team | Description | +--------+ + + + + | 10/31/ | Appointment | Hematology & | Onc, Gen [address] | | | 2020 | | Oncology | [address] [place], | | | | | | [place] [address] | | +--------+ + + + + documented as of this encounter Visit Diagnoses Not on filedocumented in this encounter"
--- OUTSIDE RECORDS SUMMARY | ~2019-08-23 | XMS | Encounter Summary ---
Demographics + + + | Address | [address] | | | [place] [address] | + + + | Home Phone | | + + + | Preferred Language | Unknown | + + + | Marital Status | | + + + | Jew Affiliation | Unknown | + + + | Race | Unknown | + + + | Ethnic Group | Unknown | + + + Author + + + | Author | [facility] | | | and Jadenana | + + + | Organization | [facility] [...] | | | | | [place] [address] | | + + + + + Care Team Providers + +------+ + | Care Bridge Engineer Name | Role | Phone | + +------+ + | Lexie Cagle | PCP | | | CLINICAL CYTOGENETICS DIRECTOR | | | + +------+ + Encounter [...] [place] | | | | | [place] [address] | [place] [address] | | | | | [phone] | [phone] | | | | | | | [...] encounter Progress Notes Madiha Nuno LPN - 11/28/2018 2:08 PM Hero KEENAN [...] 5 mg the rest of the w shinnecock. Recheck INR in 2 weeks. Electronically signed [...] | | | | | [place] | | | | | | [address] | | | | | | | [...] + + | REFERENCE LAB | [address] | [place] | [phone] | | [facility] | | [address] | | + + + + + | REFERENCE LAB | [address] | [place] | [phone] | | [facility] | | [address] | | + + + + + documented in this encounter Visit Diagnoses Not on filedocumented in this encounter"
--- OUTSIDE RECORDS SUMMARY | ~2019-08-23 | XMS | Encounter Summary ---
Demographics + + + | Address | [address] | | | [place] [address] | + + + | Home Phone | | + + + | Preferred Language | Unknown | + + + | Marital Status | Single | + + + | Jewish Affiliation | CATHOLIC | + + + [...] Providers + +------+ + | Care Director Clinical Research Name | Role | Phone | + [...] | | painful at | | [facility] [address] | | | | | port [...] | | | | | | | [place], [place] | | | | | | | [address] | | | | | | | Phone: | | | | | | | [phone] | | | | | | | Fax: | | | | | | | [phone] | +--------+--------+ + + + + Encounter Details +--------+---------+ + + + | Date | Type | Department | Care Team | Description | +--------+---------+ + + + | 01/15/ | Office | Digestive Health | Emilie Otero, | Morbid obesity (HCC) | | 2015 | Visit | Center at [facility] [address] | MD | (Primary Dx) | | | | [address] | | | | | | Mailcode: Center | | | | | | for Health and | | | | | | Healing, Building [address] | | | | | | [place], [place] | | | | | | [address] | | | | | | [phone] | | | +--------+---------+ + + + [...] EMILIE OTERO MD CHIEF, BARIATRIC SERVICES DIGESTIVE [facility] 6TH FLOOR [address] [place] Mailcode: [facility] [place] [address] Ailyn Senior MD - 01/15/2015 [...] 24hr, Take 1 capsule by mouth once losi y., Disp: 30 capsule, Rfl: 2 OBJECTIVE: [...] reasonable to schedule adjustment- 1 week with MIDDLEWARE SYSTEMS ARCHITECT Discussed risk of increased dysphagia, patient understands and wishes to proceed OK for skin reduction surgery, however would strongly advocate against any procedure that w ould require alteration of lap band. Continue working with psychiatrist on emotional eating/depression RTC 1 week with MIDDLEWARE SYSTEMS ARCHITECT; 6 months with This patient was seen and discussed with Dr.Mattar who agrees with the above plan. Ailyn Andrade MD General Surgery Pager# [phone] 10:32 AM 01/15/2015 documented in this en counter Plan of Treatment +--------+ + + + + | Date | Type | Specialty | Care Team | Description | +--------+ + + + + | 10/31/ | Appointment | Hematology & | Onc, Gen [address] | | | 2020 | | Oncology | [place], | | | | | | [place] [address] | | +--------+ + + + + documented as of this encounter Visit Diagnoses + + | Diagnosis | + + | Morbid obesity (HCC) - Primary Morbid obesity | + + documented in this encounter
--- OUTSIDE RECORDS SUMMARY | ~2019-08-23 | XMS | Encounter Summary ---
Demographics + + + | Address | [address] | | | [place] [address] | + + + | Home Phone | | + + + | Preferred Language | Unknown | + + + | Marital Status | | + + + | Shinto Affiliation | Unknown | + + + | Race | Unknown | + + + | Ethnic Group | Unknown | + + + Author + + + | Author | [facility] | | | and Jadenana | + + + | Organization | [facility] [...] | | | | | [place] [address] | | + + + + + Care Team Providers + +------+ + | Care Coat Agent Name | Role | Phone | + +------+ + PCP | Unavailable | + +------+ + Encounter Details +--------+ + + + + | Date | Type | Department | Care Team | Description | +--------+ + + + + | 07/26/ | Hospital | [facility] | Conversion | | | 1998 | Encounter | SYSTEM EMR | Transaction, | | | | | CONVERSION [address] | Provider Unknown | | | | | [address] [place], [place] | [phone] | | | | | [address] | | | | | | [phone] | | | +--------+ + + + [...] [place] | | | | | | [address] | | | | | | | | +--------+---------+ + + + documented as of this encounter Visit Diagnoses Not on filedocumented in this encounter"
--- OUTSIDE RECORDS SUMMARY | ~2019-08-23 | XMS | Encounter Summary ---
Demographics + + + | Address | [address] | | | [place] [address] | + + + | Home Phone | | + + + | Preferred Language | Unknown | + + + | Marital Status | Single | + + + | Quaker Affiliation | CONFUCIANISM | + + + [...] Team Providers + +------+ + | Care Fire Engine Pump Operator Name | Role | Phone | [...] as of this encounter Progress Notes Interface, Winery Cellar Hand In - 10/14/2005 3:12 AM PDTCLINIC DATE: [...] discuss personal problems or to have a Integ[employer]Chain system to call some one when the [...] early [place] [address] [address] [facility] [address] in [place], phone number #[phone] on August 12, 2002. The patient will seek further resources as needed. He will call if any other further questions. Virginia Welch M.D. VJ / HS [id number] / [id number] / [id number] / [id number] cc: Shelly Hamilton R.D. Outpatient Clinic Colin [...] | | | | | | [place] [address] | | +--------+ + + + + documented as of this encounter Visit Diagnoses Not on filedocumented in this encounter"
--- OUTSIDE RECORDS SUMMARY | ~2019-08-23 | XMS | Encounter Summary ---
Demographics + + + | Address | [address] | | | [place] [address] | + + + | Home Phone | | + + + | Preferred Language | Unknown | + + + | Marital Status | Single | + + + | Jew Affiliation | JEWISH | + + + | Race | White | + + + | Ethnic Group | Not or | + + + Author + + + | Author | [facility] | + + + | Organization | [facility] | + + + | Address | Unknown | + + + | Phone | Unavailable | + + + Support + + +---------+ + | Name | Relationship | Address | Phone | + + +---------+ + | Theodore Marquez | ECON | Unknown | | + + +---------+ + Care Team Providers + +------+ + | Care Forming Yardage Control Operator Name | Role | Phone | [...] | | | | | sclerosis | [address] | | | | | | ([facility] | Nate | | | | | | Mounika | [address] | | | | | | of [facility] | [place], [place] | | | | | | disturbance | [address] | | | | | | Procedures | Phone: | | | | | | MRI BRAIN | [phone] | | | | | | MULTIPLE | Fax: | | | | | | SCLEROSIS | [phone] | | | | | | WWO CONTRAST | | | +--------+--------+ + + + + Consultation (Routine) +--------+--------+ + + + + | Status | Reason | Specialty | Diagnoses / | Referred By | Referred To | | | | | Procedures | Contact | Contact | +--------+--------+ + + + + | Closed | | Psychiatry | Diagnoses | Mass, | Walker, | | | | | Multiple | MD Christian | Yue Armenta, PhD | | | | | sclerosis | [address] | [address] | | | | | (HCC) | Nate | Nate Lerner | | | | | Complaints | [place] [address] | [place], | | | | | of memory | [place], [place] | [place] | | | | | disturbance | [address] | [address] | | | | | Depression, | Phone: | Phone: | | | | | unspecified | [phone] | [phone] | | | | | depression | Fax: | Fax: | | | | | type | [phone] | [phone] | | | | | Procedures | | | | | | | CONSULT TO | | | | | | | BEHAVIORAL | | | | | | | HEALTH/PSYCH | | | | | | | IATRY - | | | | | | | ADULT | | | +--------+--------+ + + + [...] | Multiple | Epic Dept | Center [facility] | | | | | sclerosis | | [address] | | | | | [...] | | | | | | | [facility] [place] | | | | | | | [address] | | | | | | | Phone: | | | | | | | [phone] | | | | | | | Fax: | | | | | | | [phone] | +--------+--------+ + + + + Encounter Details +--------+---------+ + + + | Date | Type | Department | Care Team | Description | +--------+---------+ + + + | 12/28/ | Office | Neurology at | Christian Maldonado MD | Multiple sclerosis | | 2016 | Visit | [facility] & | [address] [facility] | ([facility]) (Primary Dx); | | | | Healing [address] | [address] [place], | Complaints of memory | | | | Ave Mailcode: CH8C | [place] [address] | disturbance; | | | | [facility] | [phone] | Depression, | | | | and Healing, | | unspecified | | | | Building | | depression type; CHRISTEN | | | | Floor [place], [place] | | on CPAP | | | | [address] | | | | | | [phone] | | | +--------+---------+ + + + [...] + + + | Blood Pressure | 156/89 | 12/29/2015 1:30 PM | | | | | PDT | | + + + + + | Pulse | 79 | 12/29/2015 1:30 PM | | | | | PDT [...] + + + + | Weight | 95.7 kg (211 lb) | 12/29/2015 1:30 PM | | | | | PDT | | + + + + + | Height | - | - | | + + + + + | Body Mass Index | 30.28 | 09/25/2015 9:58 AM | | | | | PDT | | + + + + + documented in this encounter Patient Instructions Patient Instructions Christian Maldonado MD - 12/29/2015 2:08 PM PDTContinue to use CPAP every night. We will order neuropsych testing to assess cognition. Will order MRI brain. documented in this encounter Progress Notes Christian Maldonado MD - 12/29/2015 1:34 PM PDT MULTIPLE SCLEROSIS CLINIC Medical Problems 1. Multiple sclerosis Avonex [id number] (treatment for 2 years) Rebif for 2.5 [...] with pa ddles and non- rechargeable battery ([employer] stimulator). 9. CHRISTEN INTERVAL HISTORY: Mr. Marquez RTC for follow up. He reports that he had A new spinal cord stimulator placed as the old one needed a new battery. He continues to note significant fa tigue. All studies have come back normal (thyroid and vitamin levels). We discussed the po ssible causes for his symptoms including his depression, CHRISTEN and multiple sclerosis. He reports that he uses his CPAP every night. His June sleep medicine visit was notable f or poor compliance due to broken equipment. He reports he can now get MRI scan with his new spinal cord stimulator. Current Outpatient Prescriptions Medication Sig cholecalciferol, vitamin D3, 50,000 unit oral tablet Take 50,000 Units by mouth every s even days. Indications: VITAMIN D DEFICIENCY (HIGH DOSE THERAPY) cyanocobalamin 1,000 mcg/mL injection solution Inject into the muscle (IM). cyclobenzaprine 10 mg oral tablet Take by mouth. gabapentin 300 mg oral capsule Take 1 [...] Adhesive tape Physical Examination: Vital Signs: BP 156/89 | Pulse 79 | Wt 95.709 kg (211 lb) | BMI 30.28 kg/(m^2) General: He is no apparent physical [...] all 4 extremities. Cerebellar testing shows slowed srxpiw-wr-pwgu. Ga it: Walks with aid today due to recent back surgery. Timed walk not performed. Impression: 1. Multiple sclerosis 2. Depression. 3. Hx Benito-en-Y with hx of B12 deficiency. 4. Vitamin D deficiency. 5. Complaints of worsening cognitive function. 6. Fatigue Mr. Costello is seen for worsening symptoms. He reports continued moderate fatigue, worsen ing cognition and depression. He is interested in follow up MRI now that he has a stimulato r that is MRI compatible (per his report). I also discussed obtaining neuropsych testing to assess his cognitive function and whether or not his mood disturbance is impacting his symptoms. Plan: 1. RTC in 3 months. 2. Continue current medications 3. Neuropsych testing. 4. MRI brain to assess for disease activity/progression. I spent 40 minutes with the patient with >50% counseling [...] 2019 | | Oncology | [address] [place], | | | | | | [place] [address] | | +--------+ + + + + [...] of | | | | | | [id number] is | | | | | | evident. There is no | | | | | | abnormal intracranial | | | | | | enhancement. | | | | | | [id number] within | | | | | | [...] to | | | | | | 2013 MRI. No abnormal | | | | [...] | | | | | signed / SENG | | | | | [...] Primary Multiple sclerosis | + + | Complaints of memory disturbance Memory loss | + + | Depression, unspecified depression type | + + | CHRISTEN on CPAP Obstructive sleep apnea (adult) (pediatric) | + + documented in this encounter"
--- OUTSIDE RECORDS SUMMARY | ~2019-08-23 | XMS | Encounter Summary ---
Demographics + + + | Address | [address] | | | [place] [address] | + + + | Home Phone | | + + + | Preferred Language | Unknown | + + + | Marital Status | Single | + + + | Orthodox Affiliation | WORSHIP | + + + [...] Team Providers + +------+ + | Care Tail Edger Name | Role | Phone | + [...] Request | | 2017 | on | [facility] & | [address] | modafinil) | | | | Healing [address] | Eduarda [facility], | | | | | [place] Mailcode: CH8C | [place] [address] | | | | | [facility] | [phone] | | | | | and Healing, | | | | | | Building | | | | | | Floor [place], [place] | | | | | | [address] | | | | | | [phone] | | | +--------+ + + + [...] | | | | | | [place] [address] | | +--------+ + + + + documented as of this encounter Visit Diagnoses Not on filedocumented in this encounter"
--- OUTSIDE RECORDS SUMMARY | ~2019-08-23 | XMS | Encounter Summary ---
Demographics + + + | Address | [address] | | | [place] [address] | + + + | Home Phone | | + + + | Preferred Language | Unknown | + + + | Marital Status | Single | + + + | Yazidism Affiliation | BAHAI | + + + [...] Team Providers + +------+ + | Care Junior Systems Analyst Name | Role | Phone | [...] Medicine Clinic at | Trevin Alberts NP [address] | disorder, recurrent | | | | [facility] 4th Floor [address] | [facility] | episode, in partial | | | | [address] | [address] [place], [place] | remission ([facility]) | | | | Mailcode: CH4S | [address] | (Primary Dx); | | | | [place] for [facility] | [phone] | Anxiety associated | | | | and Healing, | | with depression; | | | | Building 1,4th Floor | | Pre-op evaluation | | | | [place], [place] | | | | | | [address] | | | | | | [phone] | | | +--------+---------+ + + + [...] encounter Patient Instructions Patient Instructions Trevin Croft, LITHOGRAPHIC PLATE MAKER APPRENTICE - 02/24/2015 3:30 PM PST PREOPERATIVE INSTRUCTIONS [...] or walk. Surgery check-in location: Admitting - [facility], ninth floor [facility] Surgery Check in Time: The Preoperative Medicine [...] it is after office hours, call the [facility] roll forming machine operator at [phone] and ask them to page him or h er. Preparing For Your Surgery Video - 7 minutes of instructions! Access this [facility] video site : [email or web address] -->[email or web address] --> Patient and Visitor Guide --> [...] Medical History Diagnosis Date MS (multiple sclerosis) ([facility]) gait/ cognition issues Back pain s/p surgery Obesity Restless legs Low ferritin iron infusions in past CHRISTEN on CPAP Urinary retention self caths GERD (gastroesophageal reflux disease) severe 07/2014 Depressive disorder, not elsewhere classified Other and unspecified symptoms and signs involving general sensations and perceptions Past surgery reviewed and updated Past Surgical History Procedure Date Lap-band insertion 2011 [place] Ben[place]-en-y gastric bypass 2006 [facility]/ Deveney Back [...] to this patient's care. Trevin Croft NP [facility] PREADMIT CLINIC [facility] PREOPERATIVE MEDICINE CLINIC AT [facility] 4TH FLOOR [address] [facility] [place] [address] I spent time (45 minutes, [...] | | | | | | [place] [address] | | +--------+ + + + + [...]
--- OUTSIDE RECORDS SUMMARY | ~2019-08-23 | XMS | Encounter Summary ---
Demographics + + + | Address | [address] | | | [place] [address] | + + + | Home Phone [...] Author | [facility] | | | and Jadenana | + + + | Organization | [facility] | | [...] | | | | | [place] [address] | | + + + + + Care Team Providers + +------+ + | Care Resistance Welder Name | Role | Phone | + +------+ + | Lexie Cagle | PCP | | | DOG WARDEN | | | + +------+ + Reason for Visit +---------+ + | Reason | Comments | +---------+ + | Results | | +---------+ + Encounter Details +--------+ + + + + | Date | Type | Department | Care Team | Description | +--------+ + + + + | 09/25/ | Telephone | [facility] | Lexie Cagle | Results | | 2019 | | MEDICINE [address] | [address] | | | | | [address] | [facility] | | | | | [place] [address] | [place] [address] | | | | | [phone] | [phone] | | | | | | | [...] 2020 | Visit | | [address] | | | | | | [place]CIOUS [place] | | | | | | [address] | | | | | | | [...] [address] | [place] | [phone] | | [facility] | | [address] | | | - LABORATORY | | [...]
--- OUTSIDE RECORDS SUMMARY | ~2019-08-23 | XMS | Encounter Summary ---
Demographics + + + | Address | [address] | | | [place] [address] | + + + | Home Phone [...] | Author | [facility] | | | and Jadenana | + + + | Organization | [facility] | | | and Jadenana | [...] | | | | | [place] [address] | | + + + + + Care Team Providers + +------+ + | Care Roll Out Manager Name | Role | Phone | + +------+ + | Lexie Cagle | PCP | | | SUPERVISOR MECHANIC BOILERMAKING | | | + +------+ + Reason [...] | | | | Procedures | | [address] Phone: | | | | | [place] | | [phone] | | | | | CYSTO/URETER | | Fax: | | | | | O | | [phone] | | | | | W/LITHOTRIPS | [...] | | | | | [address] | [address] | | | | | [place], [place] | [place] | | | | | [address] | [address] | | | | | [phone] | | | +--------+ + + + [...] +----+---+ + + | | 0 | [place] | | | | 7 | 43-degrees [...] +----+---+ + + | | 0 | [place] off | | | | 8 | [...] 01/03/19 1220 by | | eral | hkfu-cda-avquhm catheter system; | Kamila Law RN | [...] 11/12/ | Office | Sleep Medicine | [place], [place]ith D, [place] | | | 2020 | Visit | | [address] | | | | | | [place] | | | | | | [address] | | | | | | | [...] 8:01 AM PDT Anesthesia Airway | | Wezzvgmxt74/10/2019 7:50Preprocedure check: patient identified, suction, airway | [...] mg | | | | PRN, Starting [facility] 01/03/19 at | | 19 7:49 | [...]
--- OUTSIDE RECORDS SUMMARY | ~2019-08-23 | XMS | Encounter Summary ---
Demographics + + + | Address | [address] | | | [place] [address] | + + + | Home Phone | | + + + | Preferred Language | Unknown | + + + | Marital Status | | + + + | Sikh Affiliation | Unknown | + + + | Race | Unknown | + + + | Ethnic Group | Unknown | + + + Author + + + | Author | [facility] | | | and Jadenana | + + + | Organization | [facility] | | | and Jadenana [...] | | | | | [place] [address] | | + + + + + Care Team Providers + +------+ + | Care Productivity Engineer Name | Role | Phone | + +------+ + | Lexie Cagle | PCP | | | SCHOOL PSYCHOMETRIST | | | + +------+ + Encounter [...] [place] | | | | | [place] [address] | [place] [address] | | | | | [phone] | [phone] | | | | | | | [...] of this encounter Progress Notes Kerline Irizarry, Fiberglass Container Winding Operator - 02/07/2019 7:49 AM PSTCalled and spoke to patient and a dvised on INR results and the dosages to take during the week. Re check INR in 1 week. Prabha wang verbalized understanding.Electronically signed by Kerline Irizarry Fiberglass Container Winding Operator at 01/25 8:24 AM Kerline [facility] [...] [place] | | | | | | [address] | | | | | | | [...]
--- OUTSIDE RECORDS SUMMARY | ~2019-08-23 | XMS | Encounter Summary ---
Demographics + + + | Address | [address] | | | [place] [address] | + + + | Home Phone | | + + + | Preferred Language | Unknown | + + + | Marital Status | | + + + | Baptism Affiliation | Unknown | + + + | Race | Unknown | + + + | Ethnic Group | Unknown | + + + Author + + + | Author | [facility] | | | and Jadenana | + + + | Organization | [facility] | [...] | | | | | [place] [address] | | + + + + + Care Team Providers + +------+ + | Care Coder Operator Name | Role | Phone | + +------+ + | No Physician | PCP | Unavailable | + +------+ + Encounter Details +--------+ + + + + | Date | Type | Department | Care Team | Description | +--------+ + + + + | 04/19/ | Hospital | [facility] | Michael Fernandes | Neurogenic bladder; | | 2019 | Encounter | MED CTR OR INTRA OP | MD Y[address] | Urge incontinence; | | | | [address] | [address] [place] | 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 documented [...] 1 tablet by | | 0 | 04/10/20 | | | CHLORIDE PO | mouth. [...] [place] | | | | | | [address] | | | | | | | [...] | | | SPENDL | | | OVChilo'S | | | CHART | | | [...] | | | | | M/uL | HELDER | | | | | | [...] + | [address] | [address] | [place] | [phone] | | [facility] | | [address] | | | - LABORATORY | | [...] MD | | | | | | ([id number]) on 04/19/2018 | | | | | [...] day), First | | | dose on [facility] 04/19/18 at 1500, For | | | 3 days, Start 8 hours after | | | pre-op dose., Post-op/Phase II | | + +---+ | | | + +---+ | albuterol 2.5 mg/3 mL nebulizer | | | solution 2.5 mg 2.5 mg, | | | Nebulization, ONCE PRN, Wheezing, | | | Starting [facility] 04/19/18 at 1150, | | | [...] | | | + +---+ + +-------+ +------+---+---+ | ondansetron (ZOFRAN ODT) | Given | 04/19/19 | 8 mg | | | | disintegrating tablet 8 mg 8 mg, | | 19 12:11 | | | | | Oral, ONCE, [facility] 04/19/18 at 1215, | | PM PST [...] | | | | | Starting Jemma 04/19/18 at 1436, | | | | | | | Administer with meals., | | | | | | | Post-op/Phase II | | | | | | + +-------+ +--------+---+---+ +---+---+ | | | +---+---+ documented in this encounter
--- OUTSIDE RECORDS SUMMARY | ~2019-08-23 | XMS | Encounter Summary ---
Demographics + + + | Address | [address] | | | [place] [address] | + + + | Home Phone | | + + + | Preferred Language | Unknown | + + + | Marital Status | Single | + + + | Hinduism Affiliation | JEWISH | + + + [...] Providers + +------+ + | Care Golf Ball Winder Name | Role | Phone | + +------+ + | Jose Hameed MD | PCP | | + +------+ + Encounter Details +--------+ + + + + | Date | Type | Department | Care Team | Description | +--------+ + + + + | 01/18/ | Telephone | Neurology at | Christian Maldonado MD | | | 2018 | | [place] for [facility] & | [address] | | | | | Healing [address] | [address], | | | | | [place] Mailcode: CH8C | [place] [address] | | | | | [facility] | [phone] | | | | | and Healing, | | | | | | | | | | | | [place], [place] | | | | | | [address] | | | | | | [phone] | | | +--------+ + + + [...] | | | | | | [place] [address] | | +--------+ + + + + documented as of this encounter Visit Diagnoses Not on filedocumented in this encounter"
--- OUTSIDE RECORDS SUMMARY | ~2019-08-23 | XMS | Encounter Summary ---
Demographics + + + | Address | [address] | | | [place] [address] | + + + | Home Phone | | + + + | Preferred Language | Unknown | + + + | Marital Status | Single | + + + | Druze Affiliation | ANABAPTIST | + + + [...] Team Providers + +------+ + | Care Nailing Machine Feeder Name | Role | Phone | + +------+ + | Jose Hameed MD | PCP | | + +------+ + Encounter Details +--------+ + + + + | Date | Type | Department | Care Team | Description | +--------+ + + + + | 01/17/ | Sociology Instructor | Neurology at | Christian Maldonado MD | Chronic low back | | 2018 | | [place] for [facility] & | [address] | pain without | | | | Healing [address] | [place], | sciatica, | | | | [place] Mailcode: CH8C | [place] [address] | unspecified back | | | | [facility] | [phone] | pain laterality | | | | and Healing, | | (Primary Dx) | | | | | | | | | | Floor [place], [place] | | | | | | [address] | | | | | | [phone] | | | +--------+ + + + [...] | | 2020 | | Oncology | [place], | | | | | | [place] [address] | | +--------+ + + + + documented as of this encounter Results X-RAY ABDOMEN 1 VIEW [...] pain without sciatica, unspecified back pain laterality - Primary | + + documented in this encounter"
--- OUTSIDE RECORDS SUMMARY | ~2019-08-23 | XMS | Encounter Summary ---
Demographics + + + | Address | [address] | | | [place] [address] | + + + | Home Phone | | + + + | Preferred Language | Unknown | + + + | Marital Status | Single | + + + | Baptism Affiliation | CONGREGATION | + + + | Race | [...] Team Providers + +------+ + | Care Take Up Operator Name | Role | Phone [...] | | sclerosis | MD Patrick | [address] | | | | | Procedures | [address] | for Health | | | | | [place] | Ave | and Healing | | | | | UNCLASSIFIED | [place], [place] | [address] | | | | | [place] | [address] | Ave | | | | | BIOLOGICALS | Phone: | [place], [place] | | | | | [place] | [phone] | [address] | | | | | THR/PRPH/DX | Fax: | Phone: | | | | | IV INF,IN | [phone] | [phone] | | | | | [place] | | Fax: | | | | | THER/PROPH/D | | [phone] | | | | | IAG IV | | | +--------+--------+ + + + + Encounter Details +--------+ + + + + | Date | Type | Department | Care Team | Description | +--------+ + + + + | 12/01/ | Hospital | [facility] | Nurse3, Hem [address] | | | 2017 | Encounter | Clinics at S | [address] | | | | | [facility] | [place] [address] | | | | | for Health and | Chr9, Hem [address] | | | | | Healing [address] | [address] [place], | | | | | Ave [place], [place] | [place] [address] | | | | | [address] | | | | | | [phone] | | | +--------+ + + + [...] | | | | | | [place] [address] | | +--------+ + + + + [...] | if patient does not have a certified driver examiner | | | | | | + [...]
--- OUTSIDE RECORDS SUMMARY | ~2019-08-23 | XMS | Encounter Summary ---
Demographics + + + | Address | [address] | | | [place] [address] | + + + | Home Phone | | + + + | Preferred Language | Unknown | + + + | Marital Status | Single | + + + | Holiness Affiliation | RASTAFARIAN | + + + [...] Team Providers + +------+ + | Care Packaging Supervisor Name | Role | Phone | [...] Rd | | | | | | [place], [place] | | | | | | [address] | | | +--------+ + + + [...] | | | | | | [place] [address] | | +--------+ + + + + documented as of this encounter Visit Diagnoses Not on filedocumented in this encounter"
--- OUTSIDE RECORDS SUMMARY | ~2019-08-23 | XMS | Encounter Summary ---
Demographics + + + | Address | [address] | | | [place] [address] | + + + | Home Phone [...] | Author | [facility] | | | and Jadenana | + + + | Organization | [facility] | | | and Jadenana | [...] | | | | | [place] [address] | | + + + + + Care Team Providers + +------+ + | Care Sports Agent Name | Role | Phone | + +------+ + | Lexie Cagle | PCP | | | COMPRESSED AIR PILE DRIVER OPERATOR | | | + +------+ + Reason for Visit + + + | Reason | Comments | + + + | Lightheaded | | + + + Encounter Details +--------+ + + + + | Date | Type | Department | Care Team | Description | +--------+ + + + + | 11/12/ | Telephone | [facility] | Lexie Cagle | Lightheaded | | 2019 | | MEDICINE [address] | [address] | | | | | [address] | [facility] | | | | | [place] [address] | [place] [address] | | | | | [phone] | [phone] | | | | | | | [...] [place] | | | | | | [address] | | | | | | | | +--------+---------+ + + + documented as of this encounter Visit Diagnoses Not on filedocumented in this encounter"
--- OUTSIDE RECORDS SUMMARY | ~2019-08-23 | XMS | Encounter Summary ---
Demographics + + + | Address | [address] | | | [place] [address] | + + + | Home Phone | | + + + | Preferred Language | Unknown | + + + | Marital Status | Single | + + + | Hinduism Affiliation | ADVENTISM | + + + [...] Team Providers + +------+ + | Care Stock Handler Name | Role | Phone | + +------+ + PCP | Unavailable | + +------+ + Encounter Details +--------+ + + + + | Date | Type | Department | Care Team | Description | +--------+ + + + + | 09/14/ | Results | General Surgery | Gary Yeager, | | | 2003 | Only | [address] | [address] | | | | | Loop Mailcode: | [address] | | | | | L[address]A Physician's | [place], [place] | | | | | [address] | [address] | | | | | [place], [place] | [phone] | | | | | [address] | | | | | | [phone] | | | +--------+ + + + [...] | | | | | | [place] [address] | | +--------+ + + + + documented as of this encounter Procedures + +--------+ + + + | Procedure Name | Priori | Date/Time | Associated Diagnosis | Comments | | | ty | | | | + +--------+ + + + | COMPLETE METABOLIC | Routin | 09/15/2003 | | Results for this | | [...] + | CBC ONLY | Routin | 09/15/2003 | | Results for this | | | e | 4:37 PM | | procedure are in the | | | | PDT | | results section. | + +--------+ + + + documented in this encounter Results CBC ONLY WITH PLATELET (09/15/2003 4:37 PM PDT) + + + + + + | Component | Value | Ref Range | Performed | Pathologist | | | | | At | Signature | + + + + + + | WHITE CELL | 5.8 | 4.4 - 11.0 K/cu | [facility] | | | COUNT | | mm | DEPARTMENT | | | | | | OF | | | | | | PATHOLOGY | | + + + + + + | RED CELL | 3.68 (L) | 4.20 - 5.90 | [facility] | | | COUNT | | M/cu mm | DEPARTMENT | | | | | | OF | | | | | | PATHOLOGY | | + + + + + + | HEMOGLOBIN | 12.4 (L) | 13.0 - 17.5 | [facility] | | | | | g/dL | DEPARTMENT | | | | | | OF | | | | | | PATHOLOGY | | + + + + + + | HEMATOCRIT | 35.3 (L) | 38.0 - 50.4 % | [facility] | | | | | | DEPARTMENT | | | | | | OF | | | | | | PATHOLOGY | | + + + + + + | MCV | 95.9 | 80.0 - 96.0 fL | [facility] | | | | | | DEPARTMENT | | | | | | OF | | | | | | PATHOLOGY | | + + + + + + | MCH | 33.6 (H) | 28.5 - 32.3 pg | [facility] | | | | | | DEPARTMENT | | | | | | OF | | | | | | PATHOLOGY | | + + + + + + | MCHC | 35.0 | 33.4 - 35.5 | [facility] | | | | | g/dL | DEPARTMENT | | | | | | OF | | | | | | PATHOLOGY | | + + + + + + | RDW | 13.6 | 11.5 - 15.0 % | [facility] | | | | | | DEPARTMENT | | | | | | OF | | | | | | PATHOLOGY | | + + + + + + | PLATELET | 173 | 150 - 400 K/cu | [facility] | | | COUNT | | mm | DEPARTMENT | | | | | | OF | | | | | | PATHOLOGY | | + + + + + + | MPV | 7.5 | 7.4 - 10.4 fL | [facility] [...] | + + + + + | [facility] | [address] | [place] [address] | | | PATHOLOGY | [address] | | | + + + + + | [facility] | [address] | [place] [address] | | | PATHOLOGY | [address] | | | + + + + + COMP METABOLIC SET (09/15/2003 4:37 PM PDT) + +--------+ + + + | Component | Value | Ref Range | Performed | Pathologist | | | | | At | Signature | + +--------+ + + + | GLUCOSE, | 108 | 65 - 110 mg/dL | [facility] [...] +--------+ + + + | CREATININE | 1.0 | 0.7 - 1.3 mg/dL | [facility] | | | PLASMA | | | DEPARTMENT | | | (LAB) | | | OF | | | | | | PATHOLOGY | | + +--------+ + + + | TOTAL | 6.1 | 6.1 - 7.9 g/dL | [facility] | | | PROTEIN, | | | DEPARTMENT | | | PLASMA | | | OF | | | (LAB) | | | PATHOLOGY | | + +--------+ + + + | ALBUMIN, | 3.6 | 3.5 - 4.7 g/dL | [facility] [...] +--------+ + + + | BILIRUBIN | 0.5 | 0.3 - 1.2 mg/dL | [facility] | | | TOTAL | | | DEPARTMENT | | | | | | OF | | | | | | PATHOLOGY | | + +--------+ + + + | ALK PHOS | 58 | 53 - 128 U/L | [facility] [...] +--------+ + + + | SODIUM, | 140 | 136 - 145 | [facility] | | | PLASMA | | mmol/L | DEPARTMENT | | | (LAB) | | | OF | | | | | | PATHOLOGY | | + +--------+ + + + | POTASSIUM, | 3.8 | 3.5 - 5.1 | [facility] | [...] | + + + + + | [facility] DEPARTMENT OF | [address] | [place] [address] | | | PATHOLOGY | [address] | | | + + + + + | [facility] DEPARTMENT OF | [address] | [place] [address] | | | PATHOLOGY | [address] | | | + + + + + documented in this encounter Visit Diagnoses Not on filedocumented in this encounter"
--- OUTSIDE RECORDS SUMMARY | ~2019-08-23 | XMS | Encounter Summary ---
Demographics + + + | Address | [address] | | | [place] [address] | + + + | Home Phone | | + + + | Preferred Language | Unknown | + + + | Marital Status | Single | + + + | Taoist Affiliation | SIKHISM | + + + | Race | [...] Team Providers + +------+ + | Care Parachute Taper Name | Role | Phone | + +------+ + PCP | Unavailable | + +------+ + Encounter Details +--------+ + + + + | Date | Type | Department | Care Team | Description | +--------+ + + + + | 03/15/ | Office | | Note, Outpatient | Progress Note | | 2004 | Visit-Trans | | Clinic | | [...] as of this encounter Progress Notes Interface, Roastmaster In - 10/24/2004 6:13 AM PDT [id number] [facility] Date: 03/15/2004 Clinic: Mr. Marquez is about 3 years post laparoscopic gastric bypass. His weight today is 231 pounds. His blood pressure is 140/70. His co-morbidities of arthritis and sleep apnea are improved. He is still depressed and has some urinary incontinence and venous stasis disease. He is taking B12. I set him up with out support group here so that he can be better informed about diet. Gary Yeager M.D. CD / HS [id number] / [id number] / [id number] / [id number] Electronically signed by Gary Yeager 09-22-2004 10:15:18 AM documented carol stone this encounter Plan of Treatment +--------+ + + + + | Date | Type | Specialty | Care Team | Description | +--------+ + + + + | 10/31/ | Appointment | Hematology & | Onc, Gen [address] | | | 2020 | | Oncology | [address] [place], | | | | | | [place] [address] | | +--------+ + + + + documented as of this encounter Visit Diagnoses Not on filedocumented in this encounter"
--- OUTSIDE RECORDS SUMMARY | ~2019-08-23 | XMS | Encounter Summary ---
Demographics + + + | Address | [address] | | | [place] [address] | + + + | Home Phone | | + + + | Preferred Language | Unknown | + + + | Marital Status | Single | + + + | Jainism Affiliation | MUSLIM | + + + [...] Team Providers + +------+ + | Care Creative/Art Director Name | Role | Phone | [...] | | | | | Procedures | [place], [place] | | | | | | MRI BRAIN | [address] | | | | | | MULTIPLE | Phone: | | | | | | SCLEROSIS | [phone] | | | | | | WWO CONTRAST | Fax: | | | | | | | [phone] | | +--------+--------+ + + + + Encounter Details +--------+ + + + + | Date | Type | Department | Care Team | Description | +--------+ + + + + | 09/29/ | Hospital | Diagnostic Imaging | Mass, MD Christian | Canceled (Short | | 2018 | Encounter | Services at [facility] | [address] | Notice <24 | | | | [address] | Edu[place], | Hours-Provider) | | | | Eduarda [place] | [place] [address] | | | | | [facility] | [phone] | | | | | [place], [place] | | | | | | [address] | | | | | | [phone] | | | +--------+ + + + [...] documented as of this encounter Progress Notes Ailyn Carias, RT - 09/29/2017 7:26 PM Myrtle Marquez has been advised by the IPG Denzel fischer presentative and myself that the combination of leads and nerve stimulator device is NOT MRI safe. Per the rep, independently, the leads and the stimulator are MRI conditional, however , the adaptor kit that was used to connect the Medtronic leads to the IPG Nevro generator is NOT MRI safe. Mr. Marquez understood and will pursue other imaging options.Electronically si gned by RT Mark at 09/29/2017 7:36 PM PDTdocumented in this encounter Plan of Treatment +--------+ + + + + | Date | Type | Specialty | Care Team | Description | +--------+ + + + + | 10/31/ | Appointment | Hematology & | Onc, Gen [address] | | | 2019 | | Oncology | [place], | | | | | | [place] [address] | | +--------+ + + + + documented as of this encounter Visit Diagnoses + + | Diagnosis | + + | MS (multiple sclerosis) (HCC) Multiple sclerosis | + + documented in this encounter"
--- OUTSIDE RECORDS SUMMARY | ~2019-08-23 | XMS | Encounter Summary ---
Demographics + + + | Address | [address] | | | [place] [address] | + + + | Home Phone | | + + + | Preferred Language | Unknown | + + + | Marital Status | | + + + | Holiness Affiliation | Unknown | + + + | Race | Unknown | + + + | Ethnic Group | Unknown | + + + Author + + + | Author | [facility] | | | and [place]aden[place] | + + + | Organization | [facility] | | | and Jaden[place] [...] | | | | | [place] [address] | | + + + + + Care Team Providers + +------+ + | Care Motor Installer Name | Role | Phone | + +------+ + | Lexie Cagle | PCP | | | ORGANIZATIONAL EFFECTIVENESS CONSULTANT | | | + +------+ + Reason for Visit + + + | Reason | Comments | + + + | Medication Question | | + + + | Other | returning call | + + + Encounter Details +--------+ + + + + | Date | Type | Department | Care Team | Description | +--------+ + + + + | 10/30/ | Telephone | [facility] | Lexie Cagle | Medication Question; | | 2018 | | MEDICINE [address] | [address] | Other (returning | | | | Street [place] | [address] [facility] | call) | | | | [place] [address] | [place] [address] | | | | | [phone] | [phone] | | | | | | | [...]
--- OUTSIDE RECORDS SUMMARY | ~2019-08-23 | XMS | Encounter Summary ---
Demographics + + + | Address | [address] | | | [place] [address] | + + + | Home Phone | | + + + | Preferred Language | Unknown | + + + | Marital Status | | + + + | Hindu Affiliation | Unknown | + + + | Race | Unknown | + + + | Ethnic Group | Unknown | + + + Author + + + | Author | [facility] | | | and [place]aden[place] | + + + | Organization | [facility] | [...] | | | | | [place] [address] | | + + + + + Care Team Providers + +------+ + | Care Supervisor [place] Name | Role | Phone | + +------+ + | Lexie Cagle | PCP | | | TIME STUDY TECHNOLOGIST | | | + +------+ + Reason [...] | Flank pain | Michael | [address] | | | | | Chronic | MD Yaw | [place], | | | | | right-sided | [address] | [place] [address] | | | | | low back | AVE [place] | Phone: | | | | | pain with | [place] | [phone] | | | | | sciatica, | [address] | Fax: | | | | | sciatica | Phone: | [phone] | | | | | laterality | [phone] | | | | | | unspecified | Fax: | | | | | | Procedures | [phone] | | | | | | CT [...] + + | 12/14/ | Office | [facility] | Michael Fernandes | Flank pain (Primary | | 2019 | Visit | [address] | MD Yaw [address] | Dx); Chronic | | | | [place] | [address] [place] | right-sided low back | | | | [address] | [address] | pain with sciatica, | | | | [phone] | | sciatica laterality | | | [...] whether I could perform surgery here at [place]. That is something that I can perform however it would require a second procedure. The eas iest thing for the patient would be to undergo the scrotal resection at the same time as his panniculectomy. Another urologist at [facility] could perform this aspect of the surgery [...] catheter placement; Surgeon: Michael Fernandes MD; Location: [facility] OR CHOLECYCTOSTOMY CYSTOSCOPY N/A 04/19/2018 Procedure: Cystoscopy, bladder Botox, injection of urethral bulking agent; Surgeon: Gina Fernandes MD; Location: [facility] OR GASTRIC BYPASS SURGERY 2001 [...] have not thoroughly proofread this note, and utility worker forge errors are very likely to occur. CC: [...] [place] | | | | | | [address] | | | | | | | [...]
--- OUTSIDE RECORDS SUMMARY | ~2019-08-23 | XMS | Encounter Summary ---
Demographics + + + | Address | [address] | | | [place] [address] | + + + | Home Phone [...] Author | [facility] | | | and Jadenana | + + + | Organization | [facility] | [...] | | | | | [place] [address] | | + + + + + Care Team Providers + +------+ + | Care Senior Accounting Associate Name | Role | Phone | + +------+ + | Lexie Cagle | PCP | | | MAGAZINE DESIGNER | | | + +------+ + Reason for Visit +---------+ + | Reason | Comments | +---------+ + | Results | xrays | +---------+ + Encounter Details +--------+ + + + + | Date | Type | Department | Care Team | Description | +--------+ + + + + | 12/13/ | Telephone | [facility] | Lexie Cagle | Results (xrays) | | 2019 | | MEDICINE [address] | [address] | | | | | Street [address] | [address] [facility] | | | | | [place] [address] | [place] [address] | | | | | [phone] | [phone] | | | | | | | [...] [place] | | | | | | [address] | | | | | | | | +--------+---------+ + + + documented as of this encounter Visit Diagnoses Not on filedocumented in this encounter"
--- OUTSIDE RECORDS SUMMARY | ~2019-08-23 | XMS | Encounter Summary ---
Demographics + + + | Address | [address] | | | [place] [address] | + + + | Home Phone | | + + + | Preferred Language | Unknown | + + + | Marital Status | Single | + + + | Sabianism Affiliation | RELIGIOUS | + + + [...] Team Providers + +------+ + | Care Blower Blast Furnace Name | Role | Phone | + [...] | | | Epic Dept | Center [facility] | | | | [...] | | | | | | | [place], [place] | | | | | | | [address] | | | | | | | Phone: | | | | | | | [phone] | | | | | | | Fax: | | | | | | | [phone] | +--------+--------+ + + + + Encounter Details +--------+---------+ + + + | Date | Type | Department | Care Team | Description | +--------+---------+ + + + | 03/13/ | Office | Neurology at | Christian Maldonado MD | Multiple sclerosis | | 2017 | Visit | [facility] & | [address] | ([facility]) (Primary Dx); | | | | Healing [address] | Edu[place], | 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 Multiple sclerosis Avonex 1331-1622 (treatment for 2 years) Rebif for 2.5 [...] replaced with paddles and non- rechargeable battery ([employer] stimulator) in spring 2016. 9. CHRISTEN INTERVAL HISTORY: Mr. Marquez RTC for follow up. He again has questions about treatment for his bladder dysfunction. He has seen 2 urologists for this problem. He has leakage even w ith treatment with Botox and cathing himself. This has worsened the past [address] [facility] Dr. Nix has discussed the [...] unit oral tablet Take 5,000 Units by the rehabilitation institute once daily. cyanocobalamin 1,000 mcg/mL injection solution [...] decreased on R. Cerebellar testing shows slowed [id number]. Gait: Antalgic casual gait, very difficult to [...] 2020 | | Oncology | [place] [place], | | | | | | [place] [address] | | +--------+ + + + + [...]
--- OUTSIDE RECORDS SUMMARY | ~2019-08-23 | XMS | Encounter Summary ---
Demographics + + + | Address | [address] | | | [place] [address] | + + + | Home Phone | | + + + | Preferred Language | Unknown | + + + | Marital Status | Single | + + + | Roman Catholic Affiliation | FAITH | + + + [...] Providers + +------+ + | Care Supervisor Operations Name | Role | Phone | + +------+ + | Jose Hameed MD | PCP | | + +------+ + Reason for Visit + + + | Reason | Comments | + + + | Refill Request | modafinil | + + + Encounter Details +--------+--------+ + + + | Date | Type | Department | Care Team | Description | +--------+--------+ + + + | 05/08/ | Refill | Neurology at | Christian Maldonado MD | Refill Request | | 2018 | | [place] for [facility] & | [address] | (modafinil) | | | | Healing [address] | [facility], | | | | | [place] Mailcode: CH8C | [place] [address] | | | | | [facility] | [phone] | | | | | and Healing, | | | | | | [facility] | | | | | | [facility], [place] | | | | | | [address] | | | | | | [phone] | | | +--------+--------+ + + + [...] 2020 | | Oncology | [address] [place], | | | | | | [place] [address] | | +--------+ + + + + documented as of this encounter Visit Diagnoses Not on filedocumented in this encounter"
--- OUTSIDE RECORDS SUMMARY | ~2019-08-23 | XMS | Encounter Summary ---
Demographics + + + | Address | [address] | | | [place] [address] | + + + | Home Phone | | + + + | Preferred Language | Unknown | + + + | Marital Status | | + + + | Hinduism Affiliation | Unknown | + + + | Race | Unknown | + + + | Ethnic Group | Unknown | + + + Author + + + | Author | [facility] | | | and Jadenana | + + + | Organization | [facility] | | | [...] | | | | | [place] [address] | | + + + + + Care Team Providers + +------+ + | Care Client Relations Associate Name | Role | Phone | + +------+ + | Lexie Cagle | PCP | | | SURGICAL SPECIALIST | | | + +------+ + Encounter Details +--------+ + + + + | Date | Type | Department | Care Team | Description | +--------+ + + + + | 10/26/ | Orders Only | [facility] | Lexie Cagle | Paroxysmal atrial | | 2019 | | MEDICINE [address] | Arleen SURGICAL SPECIALIST [address] | fibrillation (HCC) | | | | Street [place] | [address] [place] | (Primary Dx) | | | | [place] [address] | [place] [address] | | | | | [phone] | [phone] | | | | | | | [...] [place] | | | | | | [address] | | | | | | | | +--------+---------+ + + + documented as of this encounter Visit Diagnoses + + | Diagnosis | + + | Paroxysmal atrial fibrillation (HCC) - Primary Atrial fibrillation | + + documented in this encounter"
--- OUTSIDE RECORDS SUMMARY | ~2019-08-23 | XMS | Encounter Summary ---
Demographics + + + | Address | [address] | | | [place] [address] | + + + | Home Phone | | + + + | Preferred Language | Unknown | + + + | Marital Status | Single | + + + | Uatsdin Affiliation | AMISH | + + + [...] Team Providers + +------+ + | Care Color Print Inspector Name | Role | Phone | + +------+ + PCP | Unavailable | + +------+ + Encounter Details +--------+ + + + + | Date | Type | Department | Care Team | Description | +--------+ + + + + | 09/14/ | Office | | Note, Outpatient | [...] as of this encounter Progress Notes Interface, Teacher Asst In - 10/24/2004 6:39 AM PDTClinic Date: 09/15/2003 Clinic: The patient is at least a year post laparoscopic gastric bypass. He began with a weight of 355, and his weight is now 222.9 pounds. He feels like he is gaining all of the weight. He is depressed and does see a psychiatrist every 2 weeks. His blood pressure is 144/78. He has no other complaints. I will get a complete blood count, complete metabolic panel, and I have encouraged him to join a gym and start exercising. Gary Yeager M.D. CD / HS [id number] / [id number] / [id number] / Tdocumented in this encounter Plan of Treatment +--------+ + + + + | Date | Type | Specialty | Care Team | Description | +--------+ + + + + | 10/31/ | Appointment | Hematology & | Onc, Gen [address] | | | 2020 | | Oncology | [place], | | | | | | [place] [address] | | +--------+ + + + + documented as of this encounter Visit Diagnoses Not on filedocumented in this encounter"
--- OUTSIDE RECORDS SUMMARY | ~2019-08-23 | XMS | Encounter Summary ---
Demographics + + + | Address | [address] | | | [place] [address] | + + + | Home Phone [...] | Author | [facility] | | | and Jadenana | + + + | Organization | [facility] | | | [...] | | | | | [place] [address] | | + + + + + Care Team Providers + +------+ + | Care Sectional Belt Mold Assembler Name | Role | Phone | + +------+ + | Lexie Cagle | PCP | | | HISTOPATHOLOGIST | | | + +------+ + Reason [...] Medication Refill | | 2019 | | [facility] [address] | [address] | | | | | [facility] | [facility] | | | | | [place] [address] | [place] [address] | | | | | [phone] | [phone] | | | | | | | [...] 2019 | Visit | | [address] | | | | | | [place] | | | | | | [address] | | | | | | | | +--------+---------+ + + + documented as of this encounter Visit Diagnoses Not on filedocumented in this encounter"
--- OUTSIDE RECORDS SUMMARY | ~2019-08-23 | XMS | Encounter Summary ---
Demographics + + + | Address | [address] | | | [place] [address] | + + + | Home Phone [...] Author | [facility] | | | and Jadenana | + + + | Organization | [facility] | | | and Jdaenana | + + + | Address | [...] | | | | | [place] [address] | | + + + + + Care Team Providers + +------+ + | Care Brake Drum Lathe Operator Name | Role | Phone | [...] + + | 03/22/ | Telephone | [facility] | Brock Leonard, | Appointment Question | | 2018 | | MEDICINE [place] | DO [address] | | | | | [address] | [place] | | | | | [place] | [address] | | | | | [address] | | | | | | [phone] | | | +--------+ + + + [...] | | | | | [place] | | | | | | [address] | | | | | | | | +--------+---------+ + + + documented as of this encounter Visit Diagnoses Not on filedocumented in this encounter"
--- OUTSIDE RECORDS SUMMARY | ~2019-08-23 | XMS | Encounter Summary ---
Demographics + + + | Address | [address] | | | [place] [address] | + + + | Home Phone | | + + + | Preferred Language | Unknown | + + + | Marital Status | | + + + | Jainism Affiliation | Unknown | + + + | Race | Unknown | + + + | Ethnic Group | Unknown | + + + Author + + + | Author | [facility] | | | and Jadenana | + + + | Organization | [facility] | | | and Jaden[place] | [...] | | | | | [place] [address] | | + + + + + Care Team Providers + +------+ + | Care Child Development Director Name | Role | Phone | + +------+ + | Lexie Cagle | PCP | | | BRIDGE MANAGER | | | + +------+ + Encounter [...] [place] | | | | | [place] [address] | [place] [address] | | | | | [phone] | [phone] | | | | | | | [...] of this encounter Progress Notes Kerline Irizarry, Data Management Specialist - 10/12/2018 7:34 AM PDTCalled and spoke to patient, noti fied to increase warfarin 7.5mg on Fridays and continue with 5 mg the rest of the week. Pt v erbalized understandingElectronically signed by Kerline Irizarry Data Management Specialist at 10:54 AM Lexie Kathleen APRN - [...] [place] | | | | | | [id number] | | | | | | | | +--------+---------+ + + + documented as of this encounter Visit Diagnoses Not on filedocumented in this encounter"
--- OUTSIDE RECORDS SUMMARY | ~2019-08-23 | XMS | Encounter Summary ---
Demographics + + + | Address | [address] | | | [place] [address] | + + + | Home Phone | | + + + | Preferred Language | Unknown | + + + | Marital Status | | + + + | Restorationist Affiliation | Unknown | + + + | Race | Unknown | + + + | Ethnic Group | Unknown | + + + Author + + + | Author | [facility] | | | and Jadenana | + + + | Organization | [facility] | | | [...] | | | | | [place] [address] | | + + + + + Care Team Providers + +------+ + | Care Gut Carrier Name | Role | Phone | + +------+ + | Lexie Cagle | PCP | | | HEALTH PLAN SPECIALIST | | | + +------+ + Reason for Visit +--------+ + | Reason | Comments | +--------+ + | Other | | +--------+ + Encounter Details +--------+ + + + + | Date | Type | Department | Care Team | Description | +--------+ + + + + | 10/03/ | Telephone | [facility] | Lexie Cagle | Other | | 2019 | | MEDICINE [address] | [address] | | | | | Street [place] | [address] [facility] | | | | | [place] [address] | [place] [address] | | | | | [phone] | [phone] | | | | | | | [...] 2020 | Visit | | [address] | | | | | | [place] | | | | | | [address] | | | | | | | | +--------+---------+ + + + documented as of this encounter Visit Diagnoses Not on filedocumented in this encounter"
--- OUTSIDE RECORDS SUMMARY | ~2019-08-23 | XMS | Encounter Summary ---
Demographics + + + | Address | [address] | | | [place] [address] | + + + | Home Phone | | + + + | Preferred Language | Unknown | + + + | Marital Status | Single | + + + | Mormonism Affiliation | SCIENTOLOGY | + + + [...] Team Providers + +------+ + | Care Television Installer Helper Name | Role | Phone | + +------+ + PCP | Unavailable | + +------+ + Encounter Details +--------+ + + + + | Date | Type | Department | Care Team | Description | +--------+ + + + + | 02/06/ | Results | | Colin Posada | | | 2001 | Only | | General Surgery | | | | | | [address] | | | | | | [place], | | | | | | [place] [address] | | +--------+ + + + + [...] | | | | | | [place] [address] | | +--------+ + + + + documented as of this encounter Procedures + +--------+ + + + | Procedure Name | Priori | Date/Time | Associated Diagnosis | Comments | | | ty | | | | + +--------+ + + + | COMPLETE METABOLIC | Routin | 04/10/2002 | | Results for this | | SET | e | 2:14 PM | | procedure are in the | | (NA,K,CL,CO2,BUN,CRE | | PST | | results section. | | AT,GLUC,CA,AST,ALT,B | | | | | | LILY TOTAL,ALK | | | | | | PHOS,ALB,PROT TOTAL) | | | | | + +--------+ + + + | BILIRUBIN DIRECT | Routin | 04/10/2002 | | Results for this | | | e | 2:14 PM | | procedure are in the | | | | PST | | results section. | + +--------+ + + + | BASIC METABOLIC SET | Routin | 02/20/2002 | | Results for this | | (NA, K, CL, TCO2, | e | 6:57 AM | | procedure are in the | | BUN, CR, GLU, CA) | | PST | | results section. | + +--------+ + + + | X-RAY CHEST 1 VIEW | Urgent | 02/19/2002 | | Results for this | | | | 1:48 PM | | procedure are in the | | | | PST | | results section. | + +--------+ + + + | X-RAY CHEST 2 VIEW | Routin | 02/06/2002 | | Results for this | | | e | 3:10 PM | | procedure are in the | | | | PST | | results section. | + +--------+ + + + | COAG MASTER PANEL | Routin | 02/06/2002 | | Results for this | | | e | 2:30 PM | | procedure are in the | | | | PST | | results section. | + +--------+ + + + | INR | Routin | 02/06/2002 | | Results for this | | | e | 2:30 PM | | procedure are in the | | | | PST | | results section. | + +--------+ + + + | BASIC METABOLIC SET | Routin | 02/06/2002 | | Results for this | | (NA, K, CL, TCO2, | e | 2:30 PM | | procedure are in the | | BUN, CR, GLU, CA) | | PST | | results section. | + +--------+ + + + | APTT (ACT. PART. | Routin | 02/06/2002 | | Results for this | | THROMBO TIME) | e | 2:30 PM | | procedure are in the | | | | PST | | results section. | + +--------+ + + + | TYPE AND SCREEN | Routin | 02/06/2002 | | Results for this | | | e | 2:30 PM | | procedure are in the | | | | PST | | results section. | + +--------+ + + + documented in this encounter Results COMP METABOLIC SET (04/10/2002 2:14 PM PST) + +-------+ + + + | Component | Value | Ref Range | Performed | Pathologist | | | | | At | Signature | + +-------+ + + + | GLUCOSE, | 104 | 65 - 110 mg/dL | [facility] | | | PLASMA | | | DEPARTMENT | | | (LAB) | | | OF | | | | | | PATHOLOGY | | + +-------+ + + + | BUN, PLASMA | 11 | 6 - 20 mg/dL | [facility] | | | (LAB) | | | DEPARTMENT | | | | | | OF | | | | | | PATHOLOGY | | + +-------+ + + + | CREATININE | 1.0 | 0.7 - 1.3 mg/dL | [facility] | | | PLASMA | | | DEPARTMENT | | | (LAB) | | | OF | | | | | | PATHOLOGY | | + +-------+ + + + | TOTAL | 7.1 | 6.1 - 7.9 g/dL | [facility] | | | PROTEIN, | | | DEPARTMENT | | | PLASMA | | | OF | | | (LAB) | | | PATHOLOGY | | + +-------+ + + + | ALBUMIN, | 4.4 | 3.5 - 4.7 g/dL | [facility] | | | PLASMA | | | DEPARTMENT | | | (LAB) | | | OF | | | | | | PATHOLOGY | | + +-------+ + + + | CALCIUM, | 9.9 | 8.5 - 10.5 | [facility] | | | PLASMA | | mg/dL | DEPARTMENT | | | (LAB) | | | OF | | | | | | PATHOLOGY | | + +-------+ + + + | BILIRUBIN | 0.9 | 0.3 - 1.2 mg/dL | [facility] | | | TOTAL | | | DEPARTMENT | | | | | | OF | | | | | | PATHOLOGY | | + +-------+ + + + | ALK PHOS | 70 | 53 - 128 U/L | [facility] | | | | | | DEPARTMENT | | | | | | OF | | | | | | PATHOLOGY | | + +-------+ + + + | AST(SGOT) | 29 | 15 - 41 U/L | [facility] | | | | | | DEPARTMENT | | | | | | OF | | | | | | PATHOLOGY | | + +-------+ + + + | SODIUM, | 140 | 136 - 145 | [facility] | | | PLASMA | | mmol/L | DEPARTMENT | | | (LAB) | | | OF | | | | | | PATHOLOGY | | + +-------+ + + + | POTASSIUM, | 4.4 | 3.5 - 5.1 | [facility] | | | PLASMA | | mmol/L | DEPARTMENT | | | (LAB) | | | OF | | | | | | PATHOLOGY | | + +-------+ + + + | CHLORIDE, | 102 | 98 - 107 mmol/L | [facility] | | | PLASMA | | | DEPARTMENT | | | (LAB) | | | OF | | | | | | PATHOLOGY | | + +-------+ + + + | TOTAL CO2, | 28 | 23 - 29 mmol/L | [facility] | | | PLASMA | | | DEPARTMENT | | | (LAB) | | | OF | | | | | | PATHOLOGY | | + +-------+ + + + | ALT (SGPT) | 40 | 13 - 48 U/L | [facility] [...] | [facility] DEPARTMENT OF | [address] | [place] [address] | | | PATHOLOGY | [address] | | | + + + + + | [facility] DEPARTMENT OF | [address] | [place] [address] | | | PATHOLOGY | [address] | | | + + + + + BILIRUBIN, DIRECT (04/10/2002 2:14 PM PST) + +-------+ + + + | Component | Value | Ref Range | Performed | Pathologist | | | | | At | Signature | + +-------+ + + + | BILIRUBIN | 0.2 | <0.4 mg/dL | [facility] | | | DIRECT | | | DEPARTMENT | | | [...] + + + | [facility] | [facility] | [place] [address] | | | PATHOLOGY | [address] | | | + + + + + | [facility] | [address] [place] [address] | [place] [address] | | | PATHOLOGY | [address] | | | + + + + + BASIC METABOLIC SET (02/20/2002 6:57 AM PST) + +---------+ + + + | Component | Value | Ref Range | Performed | Pathologist | | | | | At | Signature | + +---------+ + + + | GLUCOSE, | 129 (H) | 65 - 110 mg/dL | [facility] | | | PLASMA | | | DEPARTMENT | | | (LAB) | | | OF | | | | | | PATHOLOGY | | + +---------+ + + + | BUN, PLASMA | 19 | 6 - 20 mg/dL | [facility] | | | (LAB) | | | DEPARTMENT | | | | | | OF | | | | | | PATHOLOGY | | + +---------+ + + + | CREATININE | 1.2 | 0.7 - 1.3 mg/dL | [facility] [...] +---------+ + + + | CHLORIDE, | 102 | 98 - 107 mmol/L | [facility] | | | PLASMA | | | DEPARTMENT | | | (LAB) | | | OF | | | | | | PATHOLOGY | | + +---------+ + + + | TOTAL CO2, | 27 | 23 - 29 mmol/L | [facility] | | | PLASMA | | | DEPARTMENT | | | (LAB) | | | OF | | | | | | PATHOLOGY | | + +---------+ + + + | CALCIUM, | 8.8 | 8.5 - 10.5 | [facility] | [...] | + + + + + | [facility] DEPARTMENT OF | [address] | [place] [address] | | | PATHOLOGY | [address] | | | + + + + + | [facility] DEPARTMENT OF | [facility] [facility] | [place] [address] | | | PATHOLOGY | [address] | | | + + + + + CHEST 1 VIEW (02/19/2002 1:48 PM PST) + + + + + + | Component | Value | Ref Range | Performed | Pathologist | | | | | At | Signature | + + + + + + | CHEST, 1 | Radiologist 1: JOSE L, | | | | | CRYSTAL | YESSI GAINES CHEST: | | | | | | 02/19/2002 | | | | | | Dictated: 02/19/2002 | | | | | | COMPARISON: | | | | | | 02/06/2002. | | | | | | INDICATION: | | | | | | Respiratory distress. | | | | | | FINDINGS: Scattered | | | | | | areas of atelectasis are | | | | | | present in the | | | | | | rightlower lobe and | | | | | | right upper lobe. | | | | | | Cardiac silhouette is | | | | | | borderlinenormal. No | | | | | | evidence for pulmonary | | | | | | edema or pneumothorax. | | | | | | IMPRESSION: Status post | | | | | | surgery. Increased | | | | | | areas of band like | | | | | | atelectasisinvolving the | | | | | | right upper and right | | | | | | lower lobe. END OF | | | | | [...] | | | + +---------+ + + CHEST 2 VIEW (02/06/2002 3:10 PM PST) + + + + + + | Component | Value | Ref Range | Performed | Pathologist | | | | | At | Signature | + + + + + + | CHEST, 2 | Radiologist 1: PRIMACK, | | | | | VIEWS [place] | Teena DIMAS-Radiologist | | | | | STEREO | 2: JUDIE FLOWERS, | | | | | | M.D.PA AND LATERAL CHEST | | | | | | RADIOGRAPH: | | | | | | 02/06/2002 Dictated | | | | | | 02/06/2002 COMPARISON: | | | | | | None available. | | | | | | FINDINGS: The lungs | | | | | | are clear. There is no | | | | | | pulmonary edema | | | | | | orconsolidation. The | | | | | | cardiomediastinal | | | | | | contours, pulmonary | | | | | | vasculature,and luke are | | | | | | normal. Multilevel | | | | | | degenerative disc | | | | | | disease is | | | | | | notedthroughout the | | | | | | thoracic spine with | | | | | | prominent endplate | | | | | | osteophytes.There is no | | | | | | pleural effusion. | | | | | | IMPRESSION: No | | | | | | consolidation or edema. | | | | | | END [...] | | | + +---------+ + + TYPE AND SCREEN (02/06/2002 2:30 PM PST) + +-------+ + + + | Component | Value | Ref Range | Performed | Pathologist | | | | | At | Signature | + +-------+ + + + | ABO GROUP | A | | [facility] | | | | | | DEPARTMENT | | | | | | OF | | | | | | PATHOLOGY | | + +-------+ + + + | RH TYPE | POS | | [facility] | | | | | | DEPARTMENT | | | | | | OF | | | | | | PATHOLOGY | | + +-------+ + + + | ANTIBODY | NEG | | [facility] | | | SCREEN | | | DEPARTMENT | | | | | | OF | | | | | | PATHOLOGY | | + +-------+ + + + + + | Specimen | + + | | + + + + + | Narrative | Performed At | + + + | SPEC EXPIRES 02/20/02@0700 | [facility] | | | DEPARTMENT OF | | | PATHOLOGY | + + + + + + + + | Performing | Address | City/State/Zipcode | Phone Number | | Organization | | | | + + + + + | [facility] DEPARTMENT OF | [address] | [place] [address] | | | PATHOLOGY | [address] | | | + + + + + | [facility] DEPARTMENT OF | [address] | [place] [address] | | | PATHOLOGY | [address] | | | + + + + + PROTHROMBIN TIME (02/06/2002 2:30 PM PST) + + + + + + | Component | Value | Ref Range | Performed | Pathologist | | | | | At | Signature | + + + + + + | INR | 0.89Comment: | INR | [facility] | | | | PT INR Therapeutic | | DEPARTMENT | | | | ranges for full | | OF | | | | anticoagulation: | | PATHOLOGY | | | | INR for | | | | | | Venous Thromboembolism | | | | | | | | | | | | (2.0-3.0)INR | | | | | | INR for most | | | | | | patients with mech. | | | | | | valves (2.5-3.5)INR | | | | | | New INR | | | | | | Reference Ranges in | | | | | | effect 01/16/02 | | | | + + + + + + + + | Specimen | + + | | + + + + + + + | Performing | Address | City/State/Zipcode | Phone Number | | Organization | | | | + + + + + | [facility] | [address] | [place] [address] | | | PATHOLOGY | [address] | | | + + + + + | [facility] DEPARTMENT | [address] | [place] [address] | | | PATHOLOGY | [address] | | | + + + + + APTT (ACT. PART. THROMBO TIME) (02/06/2002 2:30 PM PST) + + + + + + | Component | Value | Ref Range | Performed | Pathologist | | | | | At | Signature | + + + + + + | APTT | 28.2Comment: | 27.0 - 35.0 | [facility] | | | | APTT Therapeutic Range | seconds | DEPARTMENT | | | | | | OF | | | | | | PATHOLOGY | | | | (70-110)sec | | | | | | Heparin levels | | | | | | of 0.35-0.7 U/mL | | | | + + + + + + + + | Specimen | + + | | + + + + + + + | Performing | Address | City/State/Zipcode | Phone Number | | Organization | | | | + + + + + | [facility] DEPARTMENT | [address] [facility] [address] [address] | [place] [address] | | | PATHOLOGY | [address] | | | + + + + + | [facility] DEPARTMENT | [facility] [facility] | [place] [address] | | | PATHOLOGY | [address] | | | + + + + + SHERITA HERNANDEZ (02/06/2002 2:30 PM PST) + + + + + + | Component | Value | Ref Range | Performed | Pathologist | | | | | At | Signature | + + + + + + | INR | 0.89Comment: | INR | [facility] | | | | PT INR Therapeutic | | DEPARTMENT | | | | ranges for full | | OF | | | | anticoagulation: | | PATHOLOGY | | | | INR for | | | | | | Venous Thromboembolism | | | | | | | | | | | | (2.0-3.0)INR | | | | | | INR for most | | | | | | patients with mech. | | | | | | valves (2.5-3.5)INR | | | | | | New INR | | | | | | Reference Ranges in | | | | | | effect 01/16/02 | | | | + + + + + + | APTT | 28.2Comment: | 27.0 - 35.0 | [facility] | | | | APTT Therapeutic Range | seconds | DEPARTMENT | | | | | | OF | | | | | | PATHOLOGY | | | | (70-110)sec | | | | | | Heparin levels | | | | | | of 0.35-0.7 U/mL | | | | + + + + + + + + | Specimen | + + | | + + + + + + + | Performing | Address | City/State/Zipcode | Phone Number | | Organization | | | | + + + + + | [facility] DEPARTMENT OF | [address] [address] | [place] [address] | | | PATHOLOGY | [address] | | | + + + + + | [facility] DEPARTMENT OF | [address] [facility] [address] | [place] [address] | | | PATHOLOGY | [address] | | | + + + + + BASIC METABOLIC SET (02/06/2002 2:30 PM PST) + +--------+ + + + | Component | Value | Ref Range | Performed | Pathologist | | | | | At | Signature | + +--------+ + + + | GLUCOSE, | 107 | 65 - 110 mg/dL | [facility] [...] +--------+ + + + | SODIUM, | 138 [...] +--------+ + + + | CHLORIDE, | 102 | 98 - 107 mmol/L | [facility] [...] +--------+ + + + | CALCIUM, | 9.9 | 8.5 - 10.5 | [facility] | [...] + + | [facility] DEPARTMENT OF | [address] | [place] [address] | | | PATHOLOGY | [address] | | | + + + + + | [facility] | [address] | [place] [address] | | | PATHOLOGY | [address] | | | + + + + + documented in this encounter Visit Diagnoses Not on filedocumented in this encounter"
--- OUTSIDE RECORDS SUMMARY | ~2019-08-23 | XMS | Encounter Summary ---
Demographics + + + | Address | [address] | | | [place] [address] | + + + | Home Phone [...] [facility] | | | and [place] | + + + | Organization | [facility] | | | and [...] | | | | | [place] [address] | | + + + + + Care Team Providers + +------+ + | Care Concrete Conveyor Operator Name | Role | Phone | + +------+ + | Lexie Cagle | PCP | | | TALENT SOLUTIONS MANAGER | | | + +------+ + [...] | | | [address] | [place] [address] | | | | | [place] [address] | | | | | | [phone] | | | +--------+ + + + [...] [place] | | | | | | [address] | | | | | | | [...]
--- OUTSIDE RECORDS SUMMARY | ~2019-08-23 | XMS | Encounter Summary ---
Demographics + + + | Address | [address] | | | [place] [address] | + + + | Home Phone | | + + + | Preferred Language | Unknown | + + + | Marital Status | | + + + | Rastafarian Affiliation | Unknown | + + + | Race | Unknown | + + + | Ethnic Group | Unknown | + + + Author + + + | Author | [facility] | | | and [place] | + + + | Organization | [facility] | | [...] | | | | | [place] [address] | | + + + + + Care Team Providers + +------+ + | Care Instructor Watch Assembly Name | Role | Phone | + +------+ + | Lexie Cagle | PCP | | | CONSTRUCTION ADMINISTRATOR | | | + +------+ + Encounter Details +--------+ + + + + | Date | Type | Department | Care Team | Description | +--------+ + + + + | 04/02/ | Abstract | [facility] [place] | Provider, | | | 2019 | | PHYSIATRY [address] | [address] | | | | | [address] | [address] | | | | | [address] | [place] [address] | | | | | [address] | | | | | | [phone] | | | +--------+ + + + [...] [place] | | | | | | [address] | | | | | | | | +--------+---------+ + + + documented as of this encounter Visit Diagnoses Not on filedocumented in this encounter"
--- OUTSIDE RECORDS SUMMARY | ~2019-08-23 | XMS | Encounter Summary ---
Demographics + + + | Address | [address] | | | [place] [address] | + + + | Home Phone | | + + + | Preferred Language | Unknown | + + + | Marital Status | Single | + + + | Buddhism Affiliation | YAZDANISM | + + + [...] Team Providers + +------+ + | Care Accreditation Manager Name | Role | Phone | + +------+ + | Jose Hameed MD | PCP | | + +------+ + Encounter Details +--------+ + + + + | Date | Type | Department | Care Team | Description | +--------+ + + + + | 11/11/ | Abstract | [facility] | Clinic, Surgery | | | 2015 | | [facility] [address] | | | | | | [address] | | | | | | Mailcode: [facility] | | | | | | for [facility] and | | | | | | Healing, [address] | | | | | | [place], [place] | | | | | | [address] | | | | | | [phone] | | | +--------+ + + + [...] 2020 | | Oncology | [address] [place], | | | | | | [place] [address] | | +--------+ + + + + documented as of this encounter Visit Diagnoses Not on filedocumented in this encounter"
--- OUTSIDE RECORDS SUMMARY | ~2019-08-23 | XMS | Encounter Summary ---
Demographics + + + | Address | [address] | | | [place] [address] | + + + | Home Phone | | + + + | Preferred Language | Unknown | + + + | Marital Status | Single | + + + | Zoroastrianism Affiliation | CONGREGATION | + + + [...] Team Providers + +------+ + | Care Auricular Acupuncturist Name | Role | Phone | + [...] | | | | | | [place] [address] | | +--------+ + + + + [...] | Transcriptions | + + | Interface, Tanning Wheel Filler In - 10/28/2005 1:04 AM PDT | | [address] | | [place], [place] [address] [place] | | [facility] Rec No.: [id number] Date: | [...] and he was then [facility] | | Fluoroscopy Suite where [...] the skin to | | anexit site [id number] cm lateral of the midline to the [...] He then returned to the | | [facility] PostAnesthesia Care Unit, where [...] | | Leni Siddiqui M.D.Pain Management Fellow Insurance Follow Up Specialist of | | Anesthesia [facility]/ja2D: | | 02/18/2002T: 02/20/2002 12:35 [id number]:Colin Posada M.D. | | | |Next, a [...] and dried. He then returned to the [facility] Post | |Anesthesia Care [...] Leni Siddiqui M.D. | |Pain Management Fellow Insurance Follow Up Specialist of Anesthesia | | [facility] | | | | | |AC/ja2 | | | | A | |[id number] | | | |cc: | | | | | | | |Colin Posada M.D. | + + | Interface, Tanning Wheel Filler In - 10/28/2005 1:04 AM PDT | | [address] | | [place], [place] [address] | | [facility] | | [id number] Date: [...] mesentery with a white load.We put a [place] | | drain on the distal staple line, traced 150 cm from thiscreating 150 cm aidan limb and | | brought this marked area up to the proximaltransected staple line where we created a | | lgqc-hd-efye enteroenterostomyafter placing stay sutures. We were very careful to | | check this aidan limband make sure that it was oriented correctly without mesenteric | | twisting orkinking, and in fact, we had twisted the bowel prior to creation | | ofanastomosis. This was corrected prior to the anastomosis.Once satisfied that the | | bowel was set up correctly, we created axzpv-ps-wjae stapled enterostomy with | | two-layer hand-sewn [...] fired, creating a | | gastrojejunostomy stapled yxoq-pj-witrifowajv. The orogastric tube with the balloon | [...] M.D. Gary Yeager | | TeenaDM:xt4D: 02/19/2002T: 02/20/[id number] | |of [place], traced 30 cm distally [...] |transected staple line where we created a vdrd-vp-xrwy enteroenterostomy | |after placing stay sutures. We [...] set up correctly, we created a | |ngvw-no-euas stapled enterostomy with two-layer hand-sewn running closure | |of the ostomies required for the stapler insertion. The mesenteric defect | |was closed with two interrupted sutures. | | | |We brought the [place] drain tagged aidan limb into the antecolic, | |antegastric position, created a fenestration in the greater omentum just | |anterior to the transverse colon and brought the [place] drain tagged limb | |through this into [...] one and fired, creating a gastrojejunostomy stapled fnjd-eg-awfp | |fashion. The orogastric tube with the [...] | |DM:xt4 | | | | | |[id number] | + + documented in this encounter Visit Diagnoses Not on filedocumented in this encounter"
--- OUTSIDE RECORDS SUMMARY | ~2019-08-23 | XMS | Encounter Summary ---
Demographics + + + | Address | [address] | | | [place] [address] | + + + | Home Phone [...] + | Author | [facility] | | | and [place]aden[place] | + + + | Organization | [facility] | | | [...] | | | | | [place] [address] | | + + + + + Care Team Providers + +------+ + | Care Telephone Lines Repairer Name | Role | Phone | + +------+ + | Lexie Cagle | PCP | | | BASIN TENDER | | | + +------+ + Reason for Visit + + + | Reason | Comments | + + + | Urology Appointment | | + + + Encounter Details +--------+ + + + + | Date | Type | Department | Care Team | Description | +--------+ + + + + | 09/17/ | Telephone | [facility] | Michael Fernandes | Urology Appointment | | 2019 | | [address] | [address] | | | | | [place] | [place] | | | | | [address] | [address] | | | | | [phone] | | | +--------+ + + + [...] [place] | | | | | | [id number] | | | | | | | | +--------+---------+ + + + documented as of this encounter Visit Diagnoses Not on filedocumented in this encounter"
--- OUTSIDE RECORDS SUMMARY | ~2019-08-23 | XMS | Encounter Summary ---
Demographics + + + | Address | [address] | | | [place] [address] | + + + | Home Phone [...] + | Author | [facility] | | | and [place] | + + + | Organization | [facility] | | | and [place] [...] | | | | | [place] [address] | | + + + + + Care Team Providers + +------+ + | Care Machine Filler Name | Role | Phone | + +------+ + | No Physician | PCP | Unavailable | + +------+ + Encounter Details +--------+---------+ + + + | Date | Type | Department | Care Team | Description | +--------+---------+ + + + | 04/19/ | Surgery | [facility] | Michael Fernandes | Cystoscopy, bladder | | 2019 | | [facility] | MD [address] | Botox, injection of | | | | [address] | [address] [place] | urethral bulking | | | | [place], [place] | [address] | agent | | | | [address] | | | | | | [phone] | | | +--------+---------+ + + + [...] | | | | | [place] | | | | | | [address] | | | | | | | [...] + | [address] | [address] | [place] | [phone] | | [facility] | | [address] | | | - LABORATORY | | [...] MD | | | | | | [id number]) on 04/19/2018 | | | | | [...] day), First | | | dose on [facility] 04/19/18 at 1500, For | | | 3 days, Start 8 hours after | | | pre-op dose., Post-op/Phase II | | + +---+ | | | + +---+ | albuterol 2.5 mg/3 mL nebulizer | | | solution 2.5 mg 2.5 mg, | | | Nebulization, ONCE PRN, Wheezing, | | | Starting [facility] 04/19/18 at 1150, | | | For [...] | | | | | | Starting [facility] 04/19/18 at 1436, | | | | | | | Administer with meals., | | | | | | | Post-op/Phase II | | | | | | + +-------+ +--------+---+---+ +---+---+ | | | +---+---+ documented in this encounter
--- OUTSIDE RECORDS SUMMARY | ~2019-08-23 | XMS | Encounter Summary ---
Demographics + + + | Address | [address] | | | [place] [address] | + + + | Home Phone | | + + + | Preferred Language | Unknown | + + + | Marital Status | Single | + + + | Episcopal Affiliation | RESTORATIONIST | + + + [...] Team Providers + +------+ + | Care Staff Nuclear Weapons Officer Name | Role | Phone | + +------+ + | Jose Hameed MD | PCP | | + +------+ + Encounter Details +--------+ + + + + | Date | Type | Department | Care Team | Description | +--------+ + + + + | 02/03/ | Documentati | LAB CORE [address] | Christian Maldonado MD | | | 2015 | on | [address] | [address] | | | | | [place], [place] | [place], | | | | | [address] | [place] [address] | | | | | [phone] | [phone] | | | | | | | [...] | | | | | | [place] [address] | | +--------+ + + + + documented as of this encounter Visit Diagnoses Not on filedocumented in this encounter"
--- OUTSIDE RECORDS SUMMARY | ~2019-08-23 | XMS | Encounter Summary ---
Demographics + + + | Address | [address] | | | [place] [address] | + + + | Home Phone | | + + + | Preferred Language | Unknown | + + + | Marital Status | | + + + | Bahai Affiliation | Unknown | + + + | Race | Unknown | + + + | Ethnic Group | Unknown | + + + Author + + + | Author | [facility] | | | and [place]aden[place] | + + + | Organization | [facility] | | | and Jadenana | [...] | | | | | [place] [address] | | + + + + + Care Team Providers + +------+ + | Care Motocross Racer Name | Role | Phone | + +------+ + | Lexie Cagle | PCP | | | DELIVERY RECRUITER | | | + +------+ + Reason for Visit + + + | Reason | Comments | + + + | Urology Appointment | | + + + Encounter Details +--------+ + + + + | Date | Type | Department | Care Team | Description | +--------+ + + + + | 09/17/ | Telephone | [facility] | Michael Fernandes | Urology Appointment | | 2019 | | [address] | MD [address] | | | | | [place] | PRECIOUS [place] | | | | | [address] | [address] | | | | | [phone] | | | +--------+ + + + [...] [place] | | | | | | [address] | | | | | | | | +--------+---------+ + + + documented as of this encounter Visit Diagnoses Not on filedocumented in this encounter"
--- OUTSIDE RECORDS SUMMARY | ~2019-08-23 | XMS | Encounter Summary ---
Demographics + + + | Address | [address] | | | [place] [address] | + + + | Home Phone | | + + + | Preferred Language | Unknown | + + + | Marital Status | Single | + + + | Moravian Affiliation | YARSANI | + + + [...] Team Providers + +------+ + | Care Ground Intelligence Officer Name | Role | Phone | [...] as of this encounter Progress Notes Interface, Pet Ambassador In - 08/31/2005 3:00 AM PDTClinic Date: [...] Gary Yeager M.D. MERARY / VICTOR M [id number] / [id number] / [id number] / Tdocumented in this encounter Plan of Treatment +--------+ + + + + | Date | Type | Specialty | Care Team | Description | +--------+ + + + + | 10/31/ | Appointment | Hematology & | Onc, Gen [address] | | | 2020 | | Oncology | [address] [place], | | | | | | [place] [address] | | +--------+ + + + + documented as of this encounter Visit Diagnoses Not on filedocumented in this encounter"
--- OUTSIDE RECORDS SUMMARY | ~2019-08-23 | XMS | Encounter Summary ---
Demographics + + + | Address | [address] | | | [place] [address] | + + + | Home Phone | | + + + | Preferred Language | Unknown | + + + | Marital Status | Single | + + + | Latter Day Affiliation | YAZIDI | + + + | Race | White | + + + | Ethnic Group | Not or | + + + Author + + + | Author | [facility] | + + + | Organization | [facility] | + + + | Address | Unknown | + + + | Phone | Unavailable | + + + Support + + +---------+ + | Name | Relationship | Address | Phone | + + +---------+ + | Theodore Marquez | ECON | Unknown | | + + +---------+ + Care Team Providers + +------+ + | Care Car Checker Name | Role | Phone | + +------+ + | Jose Hameed MD | PCP | | + +------+ + Encounter Details +--------+ + + + + | Date | Type | Department | Care Team | Description | +--------+ + + + + | 11/09/ | Telephone | Neurology at | Christian Maldonado MD | | | 2016 | | [place] for [facility] & | [address] | | | | | Healing [address] | [place], | | | | | [place] Mailcode: CH8C | [place] [address] | | | | | [facility] | [phone] | | | | | and Healing, | | | | | | | | | | | | [place], [place] | | | | | | [address] | | | | | | [phone] | | | +--------+ + + + [...] | | | | | | [place] [address] | | +--------+ + + + + documented as of this encounter Visit Diagnoses + + | Diagnosis | + + | Cognitive complaints - Primary Other signs and symptoms involving cognition | + + documented in this encounter"
--- OUTSIDE RECORDS SUMMARY | ~2019-08-23 | XMS | Encounter Summary ---
Demographics + + + | Address | [address] | | | [place] [address] | + + + | Home Phone | | + + + | Preferred Language | Unknown | + + + | Marital Status | | + + + | Gnosticist Affiliation | Unknown | + + + | Race | Unknown | + + + | Ethnic Group | Unknown | + + + Author + + + | Author | [facility] | | | and Jadenana | + + + | Organization | [facility] | | [...] | | | | | [place] [address] | | + + + + + Care Team Providers + +------+ + | Care Hog Grader Name | Role | Phone | + +------+ + | Lexie Cagle | PCP | | | ACCORDION MAKER | | | + +------+ + Reason for Visit + + + | Reason | Comments | + + + | Surgery Appointment | | + + + Encounter Details +--------+ + + + + | Date | Type | Department | Care Team | Description | +--------+ + + + + | 12/10/ | Telephone | [facility] | Michael Fernandes | Surgery Appointment | | 2019 | | [address] | MD [address] | | | | | [place] | [place] | | | | | [address] | [address] | | | | | [phone] | | | +--------+ + + + [...] 2019 | Visit | | [address] | | | | | | [place] | | | | | | [address] | | | | | | | | +--------+---------+ + + + documented as of this encounter Visit Diagnoses Not on filedocumented in this encounter"
--- OUTSIDE RECORDS SUMMARY | ~2019-08-23 | XMS | Encounter Summary ---
Demographics + + + | Address | [address] | | | [place] [address] | + + + | Home Phone | | + + + | Preferred Language | Unknown | + + + | Marital Status | | + + + | Faith Affiliation | Unknown | + + + | Race | Unknown | + + + | Ethnic Group | Unknown | + + + Author + + + | Author | [facility] | | | and [place]adenana | + + + | Organization | [facility] | [...] | | | | | [place] [address] | | + + + + + Care Team Providers + +------+ + | Care Staple Side Laster Name | Role | Phone | + +------+ + | Lexie Cagle | PCP | | | CESSPOOL CLEANER | | | + +------+ + Reason for Visit + + + | Reason | Comments | + + + | Catheter Problem | | | (Leaking) | | + + + Encounter Details +--------+ + + + + | Date | Type | Department | Care Team | Description | +--------+ + + + + | 08/08/ | Telephone | [facility] | Michael Fernandes | Catheter Problem | | 2019 | | [address] | MD [address] | (Leaking) | | | | [place] | [place] | | | | | [address] | [address] | | | | | [phone] | | | +--------+ + + + [...] [place] | | | | | | [address] | | | | | | | | +--------+---------+ + + + documented as of this encounter Visit Diagnoses Not on filedocumented in this encounter"
--- OUTSIDE RECORDS SUMMARY | ~2019-08-23 | XMS | Encounter Summary ---
Demographics + + + | Address | [address] | | | [place] [address] | + + + | Home Phone | | + + + | Preferred Language | Unknown | + + + | Marital Status | Single | + + + | Sikh Affiliation | SCIENTOLOGIST | + + + [...] Team Providers + +------+ + | Care Linux Server Engineer Name | Role | Phone | [...] Refill Request | | 2018 | | [place] for [facility] & | [address] | (modafinil) | | | | Healing [address] | [place] [facility], | | | | | [place] Mailcode: CH8C | [place] [address] | | | | | [facility] | [phone] | | | | | and Healing, | | | | | | [facility] | | | | | | [facility], [place] | | | | | | [address] | | | | | | [phone] | | | +--------+--------+ + + + [...] 2020 | | Oncology | [address] [place], | | | | | | [place] [address] | | +--------+ + + + + documented as of this encounter Visit Diagnoses Not on filedocumented in this encounter"
--- OUTSIDE RECORDS SUMMARY | ~2019-08-23 | XMS | Encounter Summary ---
Demographics + + + | Address | [address] | | | [place] [address] | + + + | Home Phone | | + + + | Preferred Language | Unknown | + + + | Marital Status | Single | + + + | Samaritan Affiliation | LATTER-DAY | + + + [...] Team Providers + +------+ + | Care Supplemental Nurse Name | Role | Phone | [...] [address] | | | | | | [address] | Ave | | | | | | [place], | [place], [place] | | | | | | [place] [address] | [address] | | | | | | Phone: | Phone: | | | | | | [phone] | [phone] | | | | | | Fax: | Fax: | | | | | | [phone] | [phone] | +--------+--------+ + + + + Encounter [...] | | | | Mailcode: CH10U | [place], [place] | | | | | [place] for [facility] | [address] | | | | | and Healing, | [phone] | | | | | | | | | | | Floor [place], [place] | | | | | | [address] | | | | | | [phone] | | | +--------+---------+ + + + [...] Physician: Francisco J Nix MD [facility] [address] [place] [address] History: CHIEF COMPLAINT: "leaking after urinating" HPI: [...] he also u nderwent an [employer] in [place] in the past but fell on it [...] past No date: MS (multiple sclerosis) ([facility]) Comment: gait/ cognition issues No date: Obesity No date: CHRISTEN on CPAP No date: Other and unspecified symptoms and signs invol* No date: Restless legs No date: Urinary retention Comment: self caths Past Surgical History: No date: BACK SURGERY Comment: lumbar No date: CHOLECYSTECTOMY 2011: LAP-BAND INSERTION Comment: standard/ in [place] 2006: MAIRA-EN-Y GASTRIC BYPASS Comment: [facility]/ [place] Family History: Family History Problem Relation Glasses Mother Glasses Father Glasses Brother Social History: Tobacco: lifetime non-smoker Review of Systems: I have reviewed the review of systems as documented by the clinical laboratory medical director. Physical Exam: BP 137/81 | Pulse 56 [...] | | | | | | [place] [address] | | +--------+ + + + + documented as of this encounter Visit Diagnoses + + | Diagnosis | + + | Neurogenic bladder - Primary Neurogenic bladder, NOS | + + documented in this encounter
--- OUTSIDE RECORDS SUMMARY | ~2019-08-23 | XMS | Encounter Summary ---
Demographics + + + | Address | [address] | | | [place] [address] | + + + | Home Phone [...] + | Author | [facility] | | | and Jadenana | + + + | Organization | [facility] | | | and [...] | | | | | [place] [address] | | + + + + + Care Team Providers + +------+ + | Care Toy Designer Name | Role | Phone | + +------+ + | Lexie Cagle | PCP | | | RECYCLING ASSISTANT | | | + +------+ + Reason for Visit + + + | Reason | Comments | + + + | Follow-up | | + + + Encounter Details +--------+---------+ + + + | Date | Type | Department | Care Team | Description | +--------+---------+ + + + | 10/17/ | Office | [facility] | Lexie Cagle | Paroxysmal atrial | | 2019 | Visit | MEDICINE [address] | [address] | fibrillation (HCC) | | | | [facility] | [facility] | (Primary Dx); | | | | [place] [address] | [place] [address] | Hypoglycemia; | | | | [phone] | [phone] | Multiple sclerosis | | | | [...] catheter placement; Surgeon: Michael Fernandes MD; Location: [facility] MAIN OR CHOLECYCTOSTOMY CYSTOSCOPY N/A 04/19/2018 Procedure: Cystoscopy, bladder Botox, injection of urethral bulking agent; Surgeon: Gina Fernandes MD; Location: [facility] MAIN OR GASTRIC BYPASS SURGERY [...] follow with psychiatry, neurology, and surgery at [facility]. 4. Dietary counseling reinforced to prevent [...] this patient today. > 50% of time automobile travel club counselor ing regarding the listed conditions, options [...] [place] | | | | | | [place] | | | | | | [id number] | | | | | | | [...] ST. | [address] | [place], [place] | [phone] | | [facility] | | [address] | | | - LABORATORY | | [...]
--- OUTSIDE RECORDS SUMMARY | ~2019-08-23 | XMS | Encounter Summary ---
Demographics + + + | Address | [address] | | | [place] [address] | + + + | Home Phone | | + + + | Preferred Language | Unknown | + + + | Marital Status | Single | + + + | Yarsani Affiliation | CAODAISM | + + + [...] Team Providers + +------+ + | Care Neon Sign Worker Name | Role | Phone | + +------+ + | Jose Hameed MD | PCP | | + +------+ + Encounter Details +--------+ + + + + | Date | Type | Department | Care Team | Description | +--------+ + + + + | 09/13/ | Ancillary | Registration [address] | | | | 2004 | [address] | [address] | | | | | [address] | [address] Mailcode: [id number] | | | | | | [place], [place] | | | | | | [address] | | | | | | [phone] | | | +--------+ + + + [...] | | | | | | [place] [address] | | +--------+ + + + + documented as of this encounter Visit Diagnoses Not on filedocumented in this encounter"
--- OUTSIDE RECORDS SUMMARY | ~2019-08-23 | XMS | Encounter Summary ---
Demographics + + + | Address | [address] | | | [place] [address] | + + + | Home Phone | | + + + | Preferred Language | Unknown | + + + | Marital Status | Single | + + + | Latter Day Affiliation | ALEVISM | + + + [...] Team Providers + +------+ + | Care Tile Shader Name | Role | Phone | + [...] as of this encounter Progress Notes Interface, Consumer Insight Manager In - 10/24/2004 6:13 AM PDT [id number] 03/15/2004 03/15/[id number] [facility] Date: 03/15/2004 Clinic: Neurology Multiple Sclerosis Neuroimmunology Clinic Mr. Marquez is here for his screening visit of the Memantine study for cognitive impairment. Mr. Marquez scored 30 on his back depression inventory, which is compatible with severe depression. I discussed this in detail with him. He has no suicidal thoughts or suicidal plan. He has no weapons at home and has not been considering harming himself or harming others. He has had no prior suicidal attempts. He was hospitalized six years ago because of uncontrolled depression. He has been on multiple antidepressants (Wellbutrin 150 mg a day for the last year). He does not think he has responded to the Wellbutrin. He may benefit from adding on a second antidepressant to his regimen. Assessment: 1. Multiple sclerosis. 2. Major depression. Plan: I will contact Dr. Claudy Reynolds for recommendations regarding increasing his antidepressants. Lei Huitron M.D. Michelle P [phone] cc: Electronically signed by Lei Huitron 09-07-2004 09:18:28 AM documented i n this encounter Plan of Treatment +--------+ + + + + | Date | Type | Specialty | Care Team | Description | +--------+ + + + + | 10/31/ | Appointment | Hematology & | Onc, Gen [address] | | | 2020 | | Oncology | [place] [place], | | | | | | [place] [address] | | +--------+ + + + + documented as of this encounter Visit Diagnoses Not on filedocumented in this encounter"
--- OUTSIDE RECORDS SUMMARY | ~2019-08-23 | XMS | Encounter Summary ---
Demographics + + + | Address | [address] | | | [place] [address] | + + + | Home Phone | | + + + | Preferred Language | Unknown | + + + | Marital Status | Single | + + + | Amish Affiliation | CONFUCIANISM | + + + [...] Providers + +------+ + | Care Business Lawyer Name | Role | Phone | + +------+ + | rTevin Delacruz MD | PCP | | + +------+ + Encounter Details +--------+ + + + + | Date | Type | Department | Care Team | Description | +--------+ + + + + | 04/01/ | Hospital | Registration HOV | | | | 2014 | Encounter | [address] | | | | | | [place] | | | | | | [place] [address] | | | +--------+ + + + [...] | | | | | | [place] [address] | | +--------+ + + + + documented as of this encounter Visit Diagnoses Not on filedocumented in this encounter"
--- OUTSIDE RECORDS SUMMARY | ~2019-08-23 | XMS | Encounter Summary ---
Demographics + + + | Address | [address] | | | [place] [address] | + + + | Home Phone | | + + + | Preferred Language | Unknown | + + + | Marital Status | Single | + + + | Jain Affiliation | SABIANISM | + + + [...] Phone | + + +---------+ + | Tehodore Marquez | ECON | Unknown | | + + +---------+ + Care Team Providers + +------+ + | Care Electronic Parts Salesperson Name | Role | Phone | + +------+ + | Trevin Delacruz MD | PCP | | + +------+ + Encounter Details +--------+ + + + + | Date | Type | Department | Care Team | Description | +--------+ + + + + | 09/02/ | Document-Sc | Health Information | Unknown . | | | 2014 | anned | Services [address] | | | | | [address] | | | | | | Mailcode: [id number] | | | | | | [facility] | | | | | | [place], [place] | | | | | | [address] | | | | | | [phone] | | | +--------+ + + + [...] + + + + | 08/07/ | Appointment | Hematology & | Onc, [address] | | | 2020 | | Oncology | [address] [place], | | | | | | [place] [address] | | +--------+ + + + + documented as of this encounter Procedures + +--------+ + + + | Procedure Name | Priori | Date/Time | Associated Diagnosis | Comments | | | ty | | | | + +--------+ + + + | ORDERS OTHER | | 09/02/2014 | | Results for this | | | | 12:00 AM | | procedure are in the | | | | PDT | | results section. | + +--------+ + + + documented in this encounter Results ORDERS OTHER (09/02/2014 12:00 AM PDT) + + + | Narrative | Performed At | + + + | | | + + + documented in this encounter Visit Diagnoses Not on filedocumented in this encounter"
--- OUTSIDE RECORDS SUMMARY | ~2019-08-23 | XMS | Encounter Summary ---
Demographics + + + | Address | [address] | | | [place] [address] | + + + | Home Phone | | + + + | Preferred Language | Unknown | + + + | Marital Status | Single | + + + | Confucianist Affiliation | HINDU | + + + [...] Team Providers + +------+ + | Care Dedicated Regional Driver Name | Role | Phone | + +------+ + PCP | Unavailable | + +------+ + Encounter Details +--------+ + + + + | Date | Type | Department | Care Team | Description | +--------+ + + + + | 11/24/ | Results | | Trevin Brown | | | 2000 | Only | | [address] | | | | | | [address] | | | | | | [place] [address] | | | | | | [phone] | | | | | | | [...] | | | | | | [place] [address] | | +--------+ + + + + documented as of this encounter Procedures + +--------+ + + + | Procedure Name | Priori | Date/Time | Associated Diagnosis | Comments | | | ty | | | | + +--------+ + + + | US KIDNEY BILATERAL | Routin | 11/25/1999 | | Results for this | | | e | 10:12 AM | | procedure are in the | | | | PDT | | results section. | + +--------+ + + + documented in this encounter Results US KIDNEY BILATERAL (11/25/1999 10:12 AM PDT) + + + + + + | Component | Value | Ref Range | Performed | Pathologist | | | | | At | Signature | + + + + + + | US KIDNEY | Radiologist 1: | | | | | BILATERAL | GERTRUDIS CRAFT | | | | | | TeenaRENAL ULTRASOUND: | | | | | | 11/25/99 DICTATED: | | | | | | 11/25/99 FINDINGS: | | | | | | The right kidney | | | | | | measures 11.1 cm long. | | | | | | The left | | | | | | kidneymeasures 13.4 cm | | | | | | long. There is no | | | | | | hydronephrosis. A 4.5 | | | | | | x 6.1 cmlower pole | | | | | | cortical cyst is noted | | | | | | in the left kidney. No | | | | | | other focalrenal mass | | | | | | is visible. The | | | | | | bladder appears within | | | | | | normal limits.There is | | | | | | no post-void residual. | | | | | | IMPRESSION: Left lower | | | | | | pole renal simple cyst. | | | | | | Otherwise unremarkable | | | | | | renalultrasound. END | | | | | | OF IMPRESSION: | | | | + + + + + + + + | Specimen | + + | | + + + +---------+ + + | Performing | Address | City/State/Zipcode | Phone Number | | Organization | | | | + +---------+ + + | [facility] DEPARTMENT OF | | | | | RADIOLOGY | | | | + +---------+ + + documented in this encounter Visit Diagnoses Not on filedocumented in this encounter"
--- OUTSIDE RECORDS SUMMARY | ~2019-08-23 | XMS | Encounter Summary ---
Demographics + + + | Address | [address] | | | [place] [address] | + + + | Home Phone [...] | Author | [facility] | | | and Jadenana | + + + | Organization | [facility] | | | and [...] | | | | | [place] [address] | | + + + + + Care Team Providers + +------+ + | Care Welder Setter Resistance Machine Name | Role | Phone | [...] | Sleep | Diagnoses | Juancarlos, | [facility] | | | Services | Medicine | CHRISTEN | Abdoulaye Lima | [place] [address] | | | Required | | (obstructive | MD [address] | [address] | | | | | sleep | [place] | [place], | | | | | apnea) | [facility] | [place] [address] | | | | | [phone] | [place], [place] | Phone: | | | | | (ICD-10-CM) | [address] | [phone] | | | | | - [phone] | Phone: | Fax: | | | | | (ICD-9-CM) - | [phone] | [phone] | | | | | RLS | Fax: | | | | | | (restless | [phone] | | | | | | legs | | | | | | | syndrome) | | | | | | | Procedures | | | | | | | [place] POLYSOM | | | | | | | 6/>YRS SLEEP | | | | | | | 4/> ADDL | | | | | | | SENA ATTND | | | | | | | [place] POLYSOM | | | | | | | 6/>YRS SLEEP | | | | | | | W/CPAP 4/> | | | | | | | ADDL SENA | | | | | | | ATTND NPSG | | | | | | | (06/24/19@ | | | | | | | 9pm) CX LIST | | | | | | | *FALL RISK | | | +--------+ + + + + + Reason for Visit +---------+ + | Reason | Comments | +---------+ + | Consult | | +---------+ + | Snoring | | +---------+ + Evaluate & Treat (Routine) +--------+--------+ + + + + | Status | Reason | Specialty | Diagnoses / | Referred By | Referred To | | | | | Procedures | Contact | Contact | +--------+--------+ + + + + | Closed | | Internal | Diagnoses | [place] | Juancarlos, | | | | Medicine - | Obstructive | Shmuel Noguera | Abdoulaye Lima | | | | Sleep | sleep apnea | [address] | [address] | | | | Medicine / | (adult) | Ileana Fitzpatrikc | Adalid Aguilera | | | | Sleep | (pediatric) | ANNA | [facility] [place] | | | | Medicine | CONSULT [place] | [place] [address] | PRECIOUS [place] | | | | | [address] [place] | Phone: | [address] Phone: | | | | | CHRISTAL ESPINAL | [phone] | [phone] | | | | | EQUIP | Fax: | Fax: | | | | | Procedures | [phone] | [phone] | | | | | NEW PATIENT | | | +--------+--------+ + + + + Encounter Details +--------+---------+ + + + | Date | Type | Department | Care Team | Description | +--------+---------+ + + + | 06/04/ | Office | [facility] | Abdoulaye Bauer | CHRISTEN (obstructive | | 2020 | Visit | SLEEP DISORDER [address] | MD [address] | sleep apnea) | | | | [address] [place] | [address] [place] | (Primary Dx); RLS | | | | [place] [address] | [place] [address] | (restless legs | | | | [phone] | [phone] | syndrome); Low | | | | | | ferritin; | | | | | | Psychophysiologic | | | | | | insomnia; | | | | | | Depression, | | | | | | unspecified | | | | | | depression type | +--------+---------+ + + + Social History [...] + + + | Blood Pressure | 130/80 | 06/05/2019 10:20 AM | | | | | PDT | | + + + + + | Pulse | 63 | 06/05/2019 10:20 AM | | | | | PDT | | + + + + + | Temperature | - | - | | + + + + + | Respiratory Rate | 16 | 06/05/2019 10:20 AM | | | | | PDT | | + + + + + | Oxygen Saturation | 92% | 06/05/2019 10:20 AM | | | | | PDT | | + + + + + | Inhaled Oxygen | - | - | | | Concentration | | | | + + + + + | Weight | 90.5 kg (199 lb 8.3 | 06/05/2019 10:20 AM | | | | oz) | PDT | | + + + + + | Height | 175.3 cm (5' 9") | 06/05/2019 10:20 AM | | | | | PDT | | + + + + + | Body Mass Index | 29.46 | 06/05/2019 10:20 AM | | | | | PDT | | + + + + + documented in this encounter Patient Instructions Patient Instructions Abdoulaye Bauer Jr., MD - 06/05/2019 10:00 AM PDTFormatting of this n ote might be different from the original. Continuous Positive Air Pressure (CPAP) A mask over the nose gently directs air into the throat to keep the airway open. Continuous positive air pressure (CPAP)uses gentle air pressure to hold the airway open. CPAP is often the most effective treatment for sleep apnea and severe snoring. It works very well for many people. But keep in mind that it can take several adjustments before the setu p is right for you. How CPAP works The CPAP machine is asmall portable pump that sits beside the bed. The pumpsends air through a hose, which is held over your nose alone, or nose and mouthby a mask.Mild air pressureis gently pushed through your airway. The air pressure nudges sagging tissues asid e. This widens the airway so you can breathe better. CPAP may be combined with other kinds o f therapy for sleep apnea. Types of air pressure treatments There are different types of CPAP. Your doctor or CPAP mobile home technician will help you decide whic h type is best for you: Basic CPAPkeeps the pressure constant all night long. A bilevel device(BiPAP)providesmore pressure when you breathe in and less when you breathe out.A BiPAP machine also may be set to provide automatic breaths to maintain kaila thing if you stop breathing while sleeping. An autoCPAP deviceautomatically adjusts pressure throughout the night and in response to changes such as body position, sleep stage, and snoring. Date Last Reviewed: 10/25/201619998590-9828 [employer] [place] [address], [place] [address]. All righ ts reserved. This information is not intended as a substitute for professional medical care. Always follow your healthcare professional's instructions. documented in this encounter Progress Notes Abdoulaye Bauer Jr., MD - 06/05/2019 10:00 AM PDTFormatting of this note might be differen t from the original. 03/11/20 1000 [place]on Depression Inventory-II Depression Score 18 - Mild depression Insomnia Severity Index Insomnia Severity Index 17 Rogers Sleepiness Scale 1. Sitting and reading 1 2. Watching TV 2 3. Sitting, inactive in a public place (e.g. a theatre or a meeting) 3 4. As a passenger in a car for an hour without a break 0 5. Lying down to rest in the afternoon when circumstances permit 1 6. Sitting and talking to someone 0 7. Sitting quietly after a lunch without alcohol 0 8. In a car, while stopped for a few minutes in traffic 0 Total score 7 SF-36v2 Score PF 42.23 RP 45.93 BP 46.68 GH 42.73 VT 40.72 SF 37.29 RE 45.72 MH 43.02 PCS 44.6 MCS 41.88 documented in th is encounter Plan of Treatment +--------+---------+ + + + | Date | Type | Specialty | Care Team | Description | +--------+---------+ + + + | 11/12/ | Office | Sleep Medicine | Laith Sheffield PA | | 2019 | Visit | | [...] | + + +--------+ + + | * [facility] - | Outpatient | Routin | CHRISTEN (obstructive | Ordered: 06/05/2019 | | AMB Referral | Referral | e | sleep apnea) RLS | | | | | | (restless legs | | | | | | syndrome) | | + + +--------+ + + documented as of this encounter Procedures + +--------+ + + + | Procedure Name | Priori | Date/Time | Associated Diagnosis | Comments | | | ty | | | | + +--------+ + + + | DIAGNOSTIC REPORT - | | 01/01/2014 | | Results for this | | EXTERNAL SCAN | | 12:00 AM | | procedure are in the | | | | PDT | | results section. | + +--------+ + + + | DIAGNOSTIC REPORT - | | 09/19/2013 | | Results for this | | EXTERNAL SCAN | | 12:00 AM | | procedure are in the | | | | PDT | | results section. | + +--------+ + + + | DIAGNOSTIC REPORT - | | 09/19/2013 | | Results for this | | EXTERNAL SCAN | | 12:00 AM | | procedure are in the | | | | PDT | | results section. | + +--------+ + + + | DIAGNOSTIC REPORT - | | 09/12/2013 | | Results for this | | EXTERNAL SCAN | | 12:00 AM | | procedure are in the | | | | PDT | | results section. | + +--------+ + + + | DIAGNOSTIC REPORT - | | 05/06/2013 | | Results for this | | EXTERNAL SCAN | | 12:00 AM | | procedure are in the | | | | PST | | results section. | + +--------+ + + + documented in this encounter Results Ferritin (06/05/2019 11:54 AM PDT) + +---------+ + + + | Component | Value | Ref Range | Performed | Pathologist | | | | | At | Signature | + +---------+ + + + | FERRITIN | 356 (H) | 11 - 307 ng/mL | [facility] | | | | [...] ST. | [address] | [place] | [phone] | | [facility] | | [address] | | | - LABORATORY | | | | + + + + + DIAGNOSTIC REPORT - EXTERNAL SCAN (01/01/2014 12:00 AM PDT) + + + | Narrative | Performed At | + + + | Ordered by an | | | unspecified provider. | | + + + DIAGNOSTIC REPORT - EXTERNAL SCAN (09/19/2013 12:00 AM PDT) + + + | Narrative | Performed At | + + + | Ordered by an | | | unspecified provider. | | + + + DIAGNOSTIC REPORT - EXTERNAL SCAN (09/19/2013 12:00 AM PDT) + + + | Narrative | Performed At | + + + | Ordered by an | | | unspecified provider. | | + + + DIAGNOSTIC REPORT - EXTERNAL SCAN (09/12/2013 12:00 AM PDT) + + + | Narrative | Performed At | + + + | Ordered by an | | | unspecified provider. | | + + + DIAGNOSTIC REPORT - EXTERNAL SCAN (05/06/2013 12:00 AM PST) + + + | Narrative [...] legs syndrome (RLS) | + + | Low ferritin Other nonspecific findings on examination of blood | + + | Psychophysiologic insomnia Persistent disorder of initiating or maintaining sleep | + + | Depression, unspecified depression type | + + documented in this encounter
--- OUTSIDE RECORDS SUMMARY | ~2019-08-23 | XMS | Encounter Summary ---
Demographics + + + | Address | [address] | | | [place] [address] | + + + | Home Phone [...] | [facility] | | | and Jadenana | + + + | Organization | [facility] | | [...] | + + + + + | uZleyma Ayala | ECON | [address] | | | | | [place] [address] | | + + + + + Care Team Providers + +------+ + | Care Performance Specialist Name | Role | Phone | + +------+ + | Lexie Cagle | PCP | | | COMMUNITY SUPPORT PROFESSIONAL | | | + +------+ + Reason for Visit +---------+ + | Reason | Comments | +---------+ + | Post-Op | Cystoscopy with stent removal for nephrolithiasis | +---------+ + Encounter Details +--------+---------+ + + + | Date | Type | Department | Care Team | Description | +--------+---------+ + + + | 01/11/ | Office | [facility] | Michael Fernandes | Nephrolithiasis | | 2019 | Visit | [address] | MD [address] | (Primary Dx) | | | | PRECIOUS [place] | PRECIOUS EM | | | | | [address] | [address] | | | | | [phone] | | | +--------+---------+ + + + [...] catheter placement; Surgeon: Michael Fernandes MD; Location: [facility] MAIN OR CHOLECYCTOSTOMY CYSTOSCOPY N/A 04/19/2018 Procedure: Cystoscopy, bladder Botox, injection of urethral bulking agent; Surgeon: Gina Fernandes MD; Location: [facility] MAIN OR GASTRIC BYPASS SURGERY 2001 2 x HAND SURGERY 07/2018 KNEE SURGERY Bilateral LAP BAND 2010 URETEROSCOPY Right 01/03/2019 Procedure: CYSTOSCOPY Right URETEROSCOPY W/ LASER lithotripsy and stent; Surgeon: Michael Fernandes MD; Location: [facility] MAIN OR urinary stimulator 2005 VARICOSE VEIN [...] have not thoroughly proofread this note, and alliances consultant errors are very likely to occur. CC: [...] [place] | | | | | | [id number] | | | | | | | [...]
--- OUTSIDE RECORDS SUMMARY | ~2019-08-23 | XMS | Encounter Summary ---
Demographics + + + | Address | [address] | | | [place] [address] | + + + | Home Phone [...] + | Author | [facility] | | | and Jadenana | + + + | Organization | [facility] | | | [...] | | | | | [place] [address] | | + + + + + Care Team Providers + +------+ + | Care Associate Account Manager Name | Role | Phone | + +------+ + | Lexie Cagle | PCP | | | INJECTION OPERATOR | | | + +------+ + Reason for Visit + + + | Reason | Comments | + + + | Post-op Question | | + + + Encounter Details +--------+ + + + + | Date | Type | Department | Care Team | Description | +--------+ + + + + | 04/23/ | Telephone | [facility] | Michael Fernandes | Post-op Question | | 2019 | | [address] | MD [address] | | | | | PRECI[place] | [place] | | | | | [address] | [address] | | | | | [phone] | | | +--------+ + + + [...] 2019 | Visit | | [address] | | | | | | [place] | | | | | | [address] | | | | | | | | +--------+---------+ + + + documented as of this encounter Visit Diagnoses Not on filedocumented in this encounter"
--- OUTSIDE RECORDS SUMMARY | ~2019-08-23 | XMS | Encounter Summary ---
Demographics + + + | Address | [address] | | | [place] [address] | + + + | Home Phone | | + + + | Preferred Language | Unknown | + + + | Marital Status | Single | + + + | Muslim Affiliation | QUAKER | + + + [...] Providers + +------+ + | Care Crate Icer Name | Role | Phone | + [...] | | | | | Procedures | [place], [place] | | | | | | MRI BRAIN | [address] | | | | | | MULTIPLE | Phone: | | | | | | SCLEROSIS | [phone] | | | | | | WWO CONTRAST | Fax: | | | | | | | [phone] | | +--------+--------+ + + + + Encounter Details +--------+ + + + + | Date | Type | Department | Care Team | Description | +--------+ + + + + | 09/29/ | Hospital | Diagnostic Imaging | Mass, MD Christian | Canceled (Short | | 2018 | Encounter | Services at [facility] | [address] | Notice <24 | | | | [address] | Eduarda James Eakly, | Hours-Provider) | | | | Eduarda James Sobieski | [place] [address] | | | | | [facility] | [phone] | | | | | [place], [place] | | | | | | [address] | | | | | | [phone] | | | +--------+ + + + [...] | | | | | | [place] [address] | | +--------+ + + + + documented as of this encounter Visit Diagnoses + + | Diagnosis | + + | MS (multiple sclerosis) (HCC) Multiple sclerosis | + + documented in this encounter"
--- OUTSIDE RECORDS SUMMARY | ~2019-08-23 | XMS | Encounter Summary ---
Demographics + + + | Address | [address] | | | [place] [address] | + + + | Home Phone [...] + | Author | [facility] | | | and Jadenana | + + + | Organization | [facility] | | [...] | | | | | [place] [address] | | + + + + + Care Team Providers + +------+ + | Care Financial Services Education Consultant Name | Role | Phone | [...] Medicine | CHRISTEN | Abdoulaye Lima | [place] [address] | | | Required | | (obstructive | MD [address] | [place] | | | | | sleep | [place] | [place], | | | | | apnea) | [place] | [place] [address] | | | | | Procedures | [place], [place] | Phone: | | | | | ID SLEEP | [id number] | [phone] | | | | | STUDY, | Phone: | Fax: | | | | | UNATTENDED, | [phone] | [phone] | | | | | RECORD HEART | Fax: | | | | | | RATE/O2 | [phone] | | | | | | SAT/RESP [...] + + | 06/17/ | Documentati | [facility] | Abdoulaye Bauer | | | 2019 | on | SLEEP DISORDER [address] | MD [address] | | | | | [address] [place] | [address] [place] | | | | | [place] [address] | [place] [address] | | | | | [phone] | [phone] | | | | | | | [...] Progress Notes Abdoulaye Bauer Jr., MD - 06/18/2019 11:50 AM PDTBecause of the COVID19 pandemic, the [place] has cancelled in-house polysomnography and PAP titrations for the fore seeable future. [facility], this patients scheduled PSG will be changed to a home sleep test (WATCH-PAT). Remote f/u will be scheduled for results. documented in [facility] encounter Plan of Treatment +--------+---------+ + + + | Date | Type | Specialty | Care Team | Description | +--------+---------+ + + + | 11/12/ | Office | Sleep Medicine | Laith Sheffield PA | | 2019 | Visit | | [address] | | | | | | [place] | | | | | | [address] | | | | | | | | +--------+---------+ + + + + + +--------+ + + | Name | Type | Priori | Associated Diagnoses | Order Schedule | | | | ty | | | + + +--------+ + + | * [facility] - | Outpatient | Routin | CHRISTEN (obstructive | Ordered: 06/18/2019 | | AMB Referral | Referral | e | sleep apnea) | | + + +--------+ + + documented as of this encounter Visit Diagnoses + + | Diagnosis | + + | CHRISTEN (obstructive sleep apnea) - Primary Obstructive sleep apnea (adult) (pediatric) | + + documented in this encounter"
--- OUTSIDE RECORDS SUMMARY | ~2019-08-23 | XMS | Encounter Summary ---
Demographics + + + | Address | [address] | | | [place] [address] | + + + | Home Phone | | + + + | Preferred Language | Unknown | + + + | Marital Status | Single | + + + | Jainism Affiliation | JEWISH | + + + [...] Team Providers + +------+ + | Care Extruding Press Operator Name | Role | Phone [...] [id number] | | | | | | [place], [place] | | | | | | [address] | | | | | | [phone] | | | +--------+ + + + [...] | | | | | | [place] [address] | | +--------+ + + + + documented as of this encounter Visit Diagnoses Not on filedocumented in this encounter"
--- OUTSIDE RECORDS SUMMARY | ~2019-08-23 | XMS | Encounter Summary ---
Demographics + + + | Address | [address] | | | [place] [address] | + + + | Home Phone | | + + + | Preferred Language | Unknown | + + + | Marital Status | Single | + + + | Baptist Affiliation | JAIN | + + + [...] Team Providers + +------+ + | Care Link And Link Knitting Machine Operator Name | Role | Phone | + +------+ + | Jose Hameed MD | PCP | | + +------+ + Reason for Visit +--------+ + | Reason | Comments | +--------+ + | Other | Adderall | +--------+ + Encounter Details +--------+ + + + + | Date | Type | Department | Care Team | Description | +--------+ + + + + | 07/15/ | Telephone | Neurology at | Christian Maldonado MD | Other (Adderall) | | 2017 | | [facility] | [address] | | | | | Healing [address] | Eduarda James [place], | | | | | [place] Mailcode: CH8C | [place] [address] | | | | | [facility] | [phone] | | | | | and Healing, | | | | | | [facility] | | | | | | [place], [place] | | | | | | [address] | | | | | | [phone] | | | +--------+ + + + [...] | | | | | | [place] [address] | | +--------+ + + + + documented as of this encounter Visit Diagnoses Not on filedocumented in this encounter"
--- OUTSIDE RECORDS SUMMARY | ~2019-08-23 | XMS | Encounter Summary ---
Demographics + + + | Address | [address] | | | [place] [address] | + + + | Home Phone | | + + + | Preferred Language | Unknown | + + + | Marital Status | Single | + + + | Religion Affiliation | SAMARITAN | + + + [...] Team Providers + +------+ + | Care Manufacturer Name | Role | Phone | + [...] [address] | | | | | [place], [place] | Eduarda James [place], | | | | | [address] | [place] [address] | | | | | [phone] | [phone] | | | | | | | [...] | | | | | | [place] [address] | | +--------+ + + + + documented as of this encounter Visit Diagnoses Not on filedocumented in this encounter"
--- OUTSIDE RECORDS SUMMARY | ~2019-08-23 | XMS | Encounter Summary ---
Demographics + + + | Address | [address] | | | [place] [address] | + + + | Home Phone [...] | Author | [facility] | | | and Jadenana | + + + | Organization | [facility] [...] | | | | | [place] [address] | | + + + + + Care Team Providers + +------+ + | Care Talcer Name | Role | Phone | + [...] | Urology | Diagnoses | Dinah, | Dom, | | | | | Kidney | Francisco J Carvalho MD | Michael Tidwell, | | | | | stone Acute | [address] | [address] [place] [address] | | | | | cystitis | Cece James | [place] | | | | | Recurrent | [address] | [place] | | | | | UTI NEW/ | [place] | [address] Phone: | | | | | KIDNEY | [address] | [phone] | | | | | STONE/ ACUTE | Phone: | Fax: | | | | | CYSTITIS/ | [phone] | [phone] | | | | | RECURRENT | Fax: | | | | | | UTI/ JANOFF | [phone] | | | | | | Procedures | | | | | | | NEW PATIENT | | | +--------+--------+ + + + + Encounter Details +--------+---------+ + + + | Date | Type | Department | Care Team | Description | +--------+---------+ + + + | 04/03/ | Office | [facility] | Michael Fernandes | Neurogenic bladder | | 2019 | Visit | [address] | MD [address] | (Primary Dx); | | | | PRECI[place] | AVPRECIOUS [place] | 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 Please report to the Surgery and [...] you home after surgery. Call us at [phone] with any questions. [x] Pain management booklet [...] kg (198 lb 10.2 oz) | B SC 28.50 kg/m General Appearance: Alert, cooperative, no [...] UA, POC Negative Negative, 100 mg/dL Specific [place], UA, POC 1.015 1.001 - 1.030 Blood, [...] have not thoroughly proofread this note, and sales and operations trainee errors are very likely to occur. CC: [...] [place] | | | | | | [id number] | | | | | | | [...] 1.001 - 1.030 | | | | [place], | | | | | | UA, [...] + | [facility] | [address] | [place] | [phone] | | [facility] | | [address] | | | - LABORATORY | | [...] DECKER. | [address] | [place] | [phone] | | [facility] | | [address] | | | - LABORATORY | | [...]
--- OUTSIDE RECORDS SUMMARY | ~2019-08-23 | XMS | Encounter Summary ---
Demographics + + + | Address | [address] | | | [place] [address] | + + + | Home Phone | | + + + | Preferred Language | Unknown | + + + | Marital Status | | + + + | Religion Affiliation | Unknown | + + + [...] | + + + + + | Zuelyma Ayala | ECON | [address] | | | | | [place] [address] | | + + + + + Care Team Providers + +------+ + | Care Cyber Defense Forensics Analyst Name | Role | Phone | + +------+ + | Lexie Cagle | PCP | | | ENVIRONMENTAL HEALTH SPECIALIST | | | + +------+ + Encounter Details +--------+ + + + + | Date | Type | Department | Care Team | Description | +--------+ + + + + | 02/27/ | Abstract | [facility] | CagleLexie hankins | | | 2019 | | MEDICINE [address] | [address] | | | | | [address] [place] | [address] [place] | | | | | [place] [address] | [place] [address] | | | | | [phone] | [phone] | | | | | | | [...] [place] | | | | | | [address] | | | | | | | [...]
--- OUTSIDE RECORDS SUMMARY | ~2019-08-23 | XMS | Encounter Summary ---
Demographics + + + | Address | [address] | | | [place] [address] | + + + | Home Phone | | + + + | Preferred Language | Unknown | + + + | Marital Status | Single | + + + | Confucianist Affiliation | CHRISTIAN | + + + [...] Team Providers + +------+ + | Care Iron Worker Apprentice Name | Role | Phone | [...] | | | | Mailcode: [id number] | [facility] [place] | | | | | [facility] | [address] | | | | | and [place], | [phone] | | | | | | | | | | | Floor [place], [place] | | | | | | [address] | | | | | | [phone] | | | +--------+ + + + [...] | | | | | | [place] [address] | | +--------+ + + + + documented as of this encounter Visit Diagnoses Not on filedocumented in this encounter"
--- OUTSIDE RECORDS SUMMARY | ~2019-08-23 | XMS | Encounter Summary ---
Demographics + + + | Address | [address] | | | [place] [address] | + + + | Home Phone [...] | [facility] | | | and Jadenana | + + + | Organization | [facility] [...] | | | | | [place] [address] | | + + + + + Care Team Providers + +------+ + | Care Medical Screener Name | Role | Phone | + +------+ + | Lexie Cagle | PCP | | | MEDICAL DOCTOR NUCLEAR MEDICINE | | | + +------+ + Reason [...] Medication Refill | | 2019 | | [facility] [address] | [address] | | | | | [facility] | [facility] | | | | | [place] [address] | [place] [address] | | | | | [phone] | [phone] | | | | | | | [...] 2019 | Visit | | [address] | | | | | | [place] | | | | | | [address] | | | | | | | | +--------+---------+ + + + documented as of this encounter Visit Diagnoses + + | Diagnosis | + + | RLS (restless legs syndrome) Restless legs syndrome (RLS) | + + documented in this encounter"
--- OUTSIDE RECORDS SUMMARY | ~2019-08-23 | XMS | Encounter Summary ---
Demographics + + + | Address | [address] | | | [place] [address] | + + + | Home Phone [...] + | Author | [facility] | | | and Jaden[place] | + + + | Organization | [facility] | [...] | | | | | [place] [address] | | + + + + + Care Team Providers + +------+ + | Care Senior Oracle Dba Name | Role | Phone | + [...] Provider Unknown | | | | | [address] [place], [place] | [phone] | | | | | [address] | | | | | | [phone] | | | +--------+ + + + [...] [place] | | | | | | [address] | | | | | | | | +--------+---------+ + + + documented as of this encounter Visit Diagnoses Not on filedocumented in this encounter"
--- OUTSIDE RECORDS SUMMARY | ~2019-08-23 | XMS | Encounter Summary ---
Demographics + + + | Address | [address] | | | [place] [address] | + + + | Home Phone | | + + + | Preferred Language | Unknown | + + + | Marital Status | | + + + | Yazidi Affiliation | Unknown | + + + | Race | Unknown | + + + | Ethnic Group | Unknown | + + + Author + + + | Author | [facility] | | | and Jaden[place] | + + + | Organization | [facility] | [...] | | | | | [place] [address] | | + + + + + Care Team Providers + +------+ + | Care Retail Business Manager Name | Role | Phone | + +------+ + | Lexie Cagle | PCP | | | GRIND OPERATOR | | | + +------+ + Reason for Visit + + + | Reason | Comments | + + + | Flank Pain | | + + + | Fatigue | | + + + Encounter Details +--------+---------+ + + + | Date | Type | Department | Care Team | Description | +--------+---------+ + + + | 01/21/ | Office | [facility] | Lexie Cagle | Flank pain (Primary | | 2019 | Visit | MEDICINE [address] | [address] | Dx); Paroxysmal | | | | [address] [place] | [facility] | atrial fibrillation | | | | [place] [address] | [place] [address] | ([facility]); Chronic | | | | [phone] | [phone] | fatigue disorder; | | | | | | Chronic right-sided | | | | | | low back pain | | | | | | without sciatica; | | | | | | Radiculopathy, | | | | | | lumbosacral region; | | | | | | Right | | | | | | nephrolithiasis; | | | | | | Neurogenic bladder | +--------+---------+ + + + Social History [...] + + + | Blood Pressure | 138/88 | 01/21/2019 10:03 AM | | | | | PDT | | + + + + + | Pulse | 69 | 01/21/2019 10:03 AM | | | | | PDT | | + + + + + | Temperature | 36.6 C (97.9 F) | 01/21/2019 10:03 AM | | | | | PDT | | + + + + + | Respiratory Rate | 16 | 01/21/2019 10:03 AM | | | | | PDT | | + + + + + | Oxygen Saturation | 100% | 01/21/2019 10:03 AM | | | | | PDT | | + + + + + | Inhaled Oxygen | - | - | | | Concentration | | | | + + + + + | Weight | 94.7 kg (208 lb 12.4 | 01/21/2019 10:03 AM | | | | oz) | PDT | | + + + + + | Height | 177.8 cm (5' 10") | 01/21/2019 10:03 AM | | | | | PDT | | + + + + + | Body Mass Index | 29.96 | 01/21/2019 10:03 AM | | | | | PDT | | + + + + + documented in this encounter Progress Notes Tsering Lexie Esteshleen, GRIND OPERATOR - 01/21/2019 10:00 AM PDTFormatting of this note might be di fferent from the original. Subjective: Mian Marquez is a 68 y.o. male patient here for Flank Pain and Fatigue Unfortunately, Mian continues to struggle with severe right-sided flank and back pain. He reports that this feels very different from his chronic low back pain for which he has an i mplanted stimulator device. States that when he lays down flat he is unable to get up due t o pain. Walking and movement seem to alleviate pain. He underwent a CT scan which showed a large stone in the right kidney, and underwent ureterscopy with laser lithotripsy and sten t with Dr. Fernandes on 01/03. He does report that he had some mild improvement in his pain for a day or 2 after, but sinc e then the pain has returned and is as bad as ever. Underwent imaging at [facility] on Thursday 01/18, but has not yet heard any results about this. Wonders if he should have a PE T scan to see if we can get to the bottom of what is causing his pain. He did reach out to the [employer] team, who told him that his stimulator is working fine and they do not feel th at this is causing or contributing to his pain Pain is moderately well controlled with very occasional hydrocodone. He takes no more than 2 tabs per day, and reports that he never takes it before driving. He only uses it to "narciso e the edge off". He is scheduled to meet with his new neurologist at [facility] on Monday. He feels like overa ll he is 50% worse in the last time I saw him. Has not had any further hypoglycemic episodes, but he has been eating better. He has gaine d a few pounds, which is very distressing to him. Reports that his mood is very depressed. Denies any thoughts of suicide or self injury. He struggles with neurogenic bladder. Recently received a shipment of condom catheters, bu t admits that he is too intimidated to ask for help for how to fit this. 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 This i s planned at [facility], but is not yet scheduled and he admits that he has not followed up on thi s. Current Outpatient Medications on File Prior to Visit Medication Sig Dispense Refill Blood Glucose Monitoring Suppl KIT 1 kit by Does not apply route Daily. Daily and as ne eded as directed by provider 1 each 0 cholecalciferol (CHOLECALCIFEROL) 5000 units TABS Take 5,000 Units by mouth Daily. DULoxetine (CYMBALTA) [address] capsule Take 60 mg by mouth nightly. Iron Sucrose (VENOFER IV) Inject into the vein Every 3 months. oxybutynin (DITROPAN-XL) 10 MG 24 hr tablet Take 1 tablet by mouth 2 times daily. 60 ta blet 3 rOPINIRole (REQUIP) 2 MG tablet Take 1 tablet by mouth nightly. 90 tablet 1 traZODone (DESYREL) 100 mg tablet Take 1 tablet by mouth nightly. 30 tablet 0 UNKNOWN TO PATIENT Inject into the vein. Infusion for MS Twice a year (patient doesn't know name) warfarin (COUMADIN) 5 mg tablet 1 tab [...] tape OK Intolerance No active intolerances/contraindications Past medical, surgical, social, and family history reviewed with the patient and updated as approriate in the chart. Review of Systems Constitutional: Positive for fatigue and unexpected weight change (increase). Negative for appetite change, chills and diaphoresis. Respiratory: Negative for shortness of breath and wheezing. Genitourinary: Positive for flank pain. Musculoskeletal: Positive for back pain. Neurological: Positive for weakness. Psychiatric/Behavioral: Positive for dysphoric mood. Negative for self-injury and suicidal ideas. Objective: BP 138/88 | Pulse 69 | Temp 36.6 C (97.9 F) (Temporal) | Resp 16 | Ht 1.778 m (5' 1 0") | Wt 94.7 kg (208 lb 12.4 oz) | SpO2 100% | BMI 29.96 kg/m Physical Exam Constitutional: He is oriented to person, place, and time and well-developed, well-nourishe d, and in no distress. HENT: Head: Normocephalic. Pulmonary/Chest: Effort normal. Musculoskeletal: Back: Neurological: He is alert and oriented to person, place, and time. Skin: Skin is warm and dry. Psychiatric: Mood and affect normal. Assessment/Plan: Assessment: 1. Flank pain 2. Paroxysmal atrial fibrillation (HCC) 3. Chronic fatigue disorder 4. Chronic right-sided low back pain without sciatica 5. Radiculopathy, lumbosacral region 6. Right nephrolithiasis 7. Neurogenic bladder Plan: 1. We will follow-up with imaging done at [facility] to see if we can get results. 2. Refill provided on hydrocodone to be used for severe subacute flank and back pain. Ris ks associated with opioid medications reviewed with patient, he verbalized understanding. 3. He will follow-up with urology in regards to his neurogenic bladder 4. Keep appointment scheduled this Monday with neurology as well as psychiatry. 5. [facility]R [facility] as [facility]. Reviewed signs and symptoms that would warrant emergent evaluation. Patient verbalized unde rstanding. Return in about 6 weeks (around 03/04/2019). Patient understands, accepts, and agrees with this plan. Over 23 minuntes spent in face to face time with this patient today. > 50% of time counselor manager ing regarding the listed conditions, options for treatment, and possible risks, and coordina ting care. Please see assessment and plan for further details Lexie Cagle, DNP, GRIND OPERATOR, AGNP-C This note was dictated using [employer] voice recognition software. Occasional wrong- word or sound-alike substitutions may have occurred due to the inherent limitations of voice recogni tion software. Please read the chart carefully and recognize, using context, where these [place] bstitutions have occurred. Electronically signed by Lexie Cagle APRN at 019 12:18 PM PDTdocumented in this encounter Plan of Treatment +--------+---------+ + + + | Date | Type | Specialty | Care Team | Description | +--------+---------+ + + + | 11/12/ | Office | Sleep Medicine | Laith Sheffield PA | | | 2020 | Visit | | [address] | | | | | | [place], [place] | | | | | | [id number] | | | | | | | | +--------+---------+ + + + documented as of this encounter Procedures + +--------+ + + + | Procedure Name | Priori | Date/Time | Associated Diagnosis | Comments | | | ty | | | | + +--------+ + + + | LABS - EXTERNAL SCAN | | 02/20/2019 | | Results for this | | | | 12:00 AM | | procedure are in the | | | | PST | | results section. | + +--------+ + + + | LABS - EXTERNAL SCAN | | 02/12/2019 | | Results for this | | | | 12:00 AM | | procedure are in the | | | | PST | | results section. | + +--------+ + + + | LABS - EXTERNAL SCAN | | 02/12/2019 | | Results for this | | | | 12:00 AM | | procedure are in the | | | | PST | | results section. | + +--------+ + + + | LABS - EXTERNAL SCAN | | 01/21/2019 | | Results for this | | | | 12:00 AM | | procedure are in the | | | | PDT | | results section. | + +--------+ + + + documented in this encounter Results LABS - EXTERNAL SCAN (02/20/2019 12:00 AM PST) + + + | Narrative | Performed At | + + + | Ordered by an | | | unspecified provider. | | + + + LABS - EXTERNAL SCAN (02/12/2019 12:00 AM PST) + + + | Narrative | Performed At | + + + | Ordered by an | | | unspecified provider. | | + + + LABS - EXTERNAL SCAN (02/12/2019 12:00 AM PST) + + + | Narrative | Performed At | + + + | Ordered by an | | | unspecified provider. | | + + + LABS - EXTERNAL SCAN (01/21/2019 12:00 AM PDT) + + + | [...] (HCC) Atrial fibrillation | + + | Chronic fatigue disorder Chronic fatigue syndrome | + + | Chronic right-sided low back pain without sciatica | + + | Radiculopathy, lumbosacral region Thoracic or lumbosacral neuritis or radiculitis, | | unspecified | + + | Right nephrolithiasis | + + | Neurogenic bladder Neurogenic bladder, NOS | + + documented in this encounter
--- OUTSIDE RECORDS SUMMARY | ~2019-08-23 | XMS | Encounter Summary ---
Demographics + + + | Address | [address] | | | [place] [address] | + + + | Home Phone [...] Author | [facility] | | | and Jadenana | + + + | Organization | [facility] | [...] | | | | | [place] [address] | | + + + + + Care Team Providers + +------+ + | Care Primary Care Provider Name | Role | Phone | + +------+ + | Lexie Cagle | PCP | | | MACHINE FEEDER FLOORPERSON | | | + +------+ + Reason for Visit +---------+ + | Reason | Comments | +---------+ + | Results | | +---------+ + Encounter Details +--------+ + + + + | Date | Type | Department | Care Team | Description | +--------+ + + + + | 01/25/ | Telephone | [facility] | Michael Fernandes | Results | | 2019 | | [address] | MD Y[address] | | | | | [place] | [place] | | | | | [address] | [address] | | | | | [phone] | | | +--------+ + + + [...] 2020 | Visit | | [address] | | | | | | [place] | | | | | | [id number] | | | | | | | | +--------+---------+ + + + documented as of this encounter Visit Diagnoses Not on filedocumented in this encounter"
--- OUTSIDE RECORDS SUMMARY | ~2019-08-23 | XMS | Encounter Summary ---
Demographics + + + | Address | [address] | | | [place] [address] | + + + | Home Phone [...] | Author | [facility] | | | and [place]aden[place] | + + + | Organization | [facility] | | | and [place] | [...] | | | | | [place] [address] | | + + + + + Care Team Providers + +------+ + | Care Link Trainer Maintenance Man Name | Role | Phone | [...] Medicine | CHRISTEN | Abdoulaye Lima | [place] [address] | | | Required | | (obstructive | [address] [place] | | | | | sleep | [place] | [place], | | | | | apnea) | [address] [place] | [place] [address] | | | | | Procedures | [place], [place] | Phone: | | | | | [place] [facility] | [address] | [phone] | | | | | STUDY, | Phone: | Fax: | | | | | UNATTENDED, | [phone] | [phone] | | | | | RECORD HEART | Fax: | | | | | | RATE/O2 | [phone] | | | | | | SAT/RESP [...] + | 06/17/ | Documentati | [facility] | Abdoulaye Bauer | | | 2019 | on | SLEEP DISORDER [address] | [address] | | | | | [address] [place] | [address] [place] | | | | | [place] [address] | [place] [address] | | | | | [phone] | [phone] | | | | | | | [...] PAP titrations for the fore seeable future. [facility], this patients scheduled PSG will be changed to a home sleep test (WATCH-PAT). Remote f/u will be scheduled for results. documented in [facility] encounter Plan of Treatment +--------+---------+ + + + | Date | Type | Specialty | Care Team | Description | +--------+---------+ + + + | 11/12/ | Office | Sleep Medicine | Laith Sheffield PA | | 2019 | Visit | | [address] | | | | | | [place] | | | | | | [address] | | | | | | | | +--------+---------+ + + + + + +--------+ + + | Name | Type | Priori | Associated Diagnoses | Order Schedule | | | | ty | | | + + +--------+ + + | * [facility] - | Outpatient | Routin [...]
--- OUTSIDE RECORDS SUMMARY | ~2019-08-23 | XMS | Encounter Summary ---
Demographics + + + | Address | [address] | | | [place] [address] | + + + | Home Phone | | + + + | Preferred Language | Unknown | + + + | Marital Status | Single | + + + | Yazdanism Affiliation | ALEVISM | + + + | Race | White | + + + | Ethnic Group | Not or | + + + Author + + + | Author | [facility] | + + + | Organization | [facility] | + + + | Address | Unknown | + + + | Phone | Unavailable | + + + Support + + +---------+ + | Name | Relationship | Address | Phone | + + +---------+ + | Theodore Marquez | ECON | Unknown | | + + +---------+ + Care Team Providers + +------+ + | Care Masticator Name | Role | Phone | + [...] Order) | | 2019 | on | [facility] & | Shiloh Mukherjee MD | | | | | Healing [address] | [address] | | | | | Ave Mailcode: CH8C | [place], [place] | | | | | [facility] | [address] | | | | | and [place], | [phone] | | | | | [facility] | | | | | | Floor [place], [place] | | | | | | [address] | | | | | | [phone] | | | +--------+ + + + [...] | | | | | | [place] [address] | | +--------+ + + + + documented as of this encounter Visit Diagnoses Not on filedocumented in this encounter"
--- OUTSIDE RECORDS SUMMARY | ~2019-08-23 | XMS | Encounter Summary ---
Demographics + + + | Address | [address] | | | [place] [address] | + + + | Home Phone | | + + + | Preferred Language | Unknown | + + + | Marital Status | Single | + + + | Bahai Affiliation | ANABAPTISM | + + + [...] Providers + +------+ + | Care Stock Lifter Name | Role | Phone | + [...] | | | | MRI BRAIN | [place], [place] | for Health | | | | | MULTIPLE | [address] | and Healing, | | | | | SCLEROSIS | Phone: | [address], | | | | | W[address] CONTRAST | [phone] | 3rd Floor | | | | | | Fax: | [facility] [place] | | | | | | [phone] | [address] | | | | | | | Phone: | | | | | | | [phone] | | | | | | | Fax: | | | | | | | [phone] | +--------+--------+ + + + + Reason [...] Martín Fitzpatrick | | | | | ([facility]) | Nate | Mailcode: | | | | | Procedures | Eduarda James | [facility] | | | | | MRI BRAIN | [place], [place] | for Health | | | | | MULTIPLE | [address] | and Healing, | | | | | SCLEROSIS | Phone: | [address], | | | | | [address] | [phone] | 3rd Floor | | | | | | Fax: | [place], [place] | | | | | | [phone] | [address] | | | | | | | Phone: | | | | | | | [phone] | | | | | | | Fax: | | | | | | | [phone] | +--------+--------+ + + + + Encounter Details +--------+ + + + + | Date | Type | Department | Care Team | Description | +--------+ + + + + | 01/24/ | Hospital | Diagnostic Imaging | Christian Maldonado MD | | | 2018 | Encounter | Services at [facility] | [address] | | | | | [address] | [address] [facility] | | | | | [address] [place] | [place] [address] | | | | | [facility] | [phone] | | | | | [place], [place] | | | | | | [address] | | | | | | [phone] | | | +--------+ + + + [...] | | | | | | [place] [address] | | +--------+ + + + + documented as of this encounter Procedures + +--------+ + + + | Procedure Name | Priori | Date/Time | Associated Diagnosis | Comments | | | ty | | | | + +--------+ + + + | MRI BRAIN MULTIPLE | Routin | 01/24/2018 | Multiple sclerosis | Results for this | | SCLEROSIS WWO | e | 8:46 PM | (HCC) | procedure are in the | | CONTRAST | | PDT | | results section. | + +--------+ + + + documented in this encounter Results MRI BRAIN MULTIPLE SCLEROSIS WWO CONTRAST (01/24/2018 8:46 PM PDT) + + | Specimen | + + | | + + + + + | Narrative | Performed At | + + + | EXAM: MRI BRAIN [facility] MULTIPLE SCLEROSIS HISTORY: assess for | [facility] [...] white matter and mild hyperintensity of the otby. No abnormal | | | enhancement or reduced diffusion. I have personally reviewed the | | | images and, if necessary, edited the report. I agree with the report | | | as now presented. Final signature: Jose Gaxiola MD 01/24/2018 | | | 9:35 PM Preliminary: Jose Gaxiola MD Dictation initiated: Jose Booker | Jhony Gaxiola MD 01/24/2018 9:30 PM | | + + + + + | Procedure Note | + + | Service Account, Radiant Res In Interface - 01/24/2018 9:36 PM PDT EXAM: MRI BRAIN | | WWO MULTIPLE SCLEROSIS HISTORY: assess for disease progression. [...] documented in this encounter Administered Medications + +---------+ +-------+------+------+ | Medication Order | MAR | Action | Dose | Rate | Site | | | Action | Date | | | | + +---------+ +-------+------+------+ | gadoterate meglumine (DOTAREM) | IV Push | 01/25/20 | 18 mL | | | | 0.5 mmol/mL (376.9 mg/mL) | | 18 8:38 | | | | | injection 18 mL 18 mL (rounded | | PM PDT | | | | | from 17.96 mL = 0.2 mL/kg | | | | | | | 89.8 kg Dosing weight), | | | | | | | intravenous, ONCE, 1 dose, Wed | | | | | | | 01/24/18 at 2115 | | | | | | + +---------+ +-------+------+------+ +---+---+ | | | +---+---+ documented in this encounter"
--- OUTSIDE RECORDS SUMMARY | ~2019-08-23 | XMS | Encounter Summary ---
Demographics + + + | Address | [address] | | | [place] [address] | + + + | Home Phone [...] | | | | | [place] [address] | | + + + + + Care Team Providers + +------+ + | Care Shot Man Name | Role | Phone | + +------+ + | Lexie Cagle | PCP | | | STILL PUMP OPERATOR | | | + +------+ + Reason for Visit + + + | Reason | Comments | + + + | Urinary Tract | | | Infection | | + + + Encounter Details +--------+ + + + + | Date | Type | Department | Care Team | Description | +--------+ + + + + | 02/04/ | Telephone | [facility] | Lexie Cagle | Urinary Tract | | 2018 | | MEDICINE [address] | [address] | Infection | | | | [facility] | [facility] | | | | | [place] [address] | [place] [address] | | | | | [phone] | [phone] | | | | | | | [...] PRECIOUS | | | | | | [address] | | | | | | | | +--------+---------+ + + + documented as of this encounter Visit Diagnoses + + | Diagnosis | + + | Acute pyelonephritis - Primary Acute pyelonephritis without lesion of renal medullary | | necrosis | + + documented in this encounter"
--- OUTSIDE RECORDS SUMMARY | ~2019-08-23 | XMS | Encounter Summary ---
Demographics + + + | Address | [address] | | | [place] [address] | + + + | Home Phone | | + + + | Preferred Language | Unknown | + + + | Marital Status | | + + + | Scientology Affiliation | Unknown | + + + | Race | Unknown | + + + | Ethnic Group | Unknown | + + + Author + + + | Author | [facility] | | | and Jadenana | + + + | Organization | [facility] | | | and Jadenana [...] | | | | | [place] [address] | | + + + + + Care Team Providers + +------+ + | Care Language Arts Teacher Name | Role | Phone | [...] Medicine | CHRISTEN | Abdoulaye Lima | [place] [address] | | | Required | | (obstructive | MD [address] | | | | | sleep | [address] | [place], | | | | | apnea) | [address] | [place] [address] | | | | | Procedures | [place], [place] | Phone: | | | | | [place] SLEEP | [address] | [phone] | | | | | STUDY, | Phone: | Fax: | | | | | UNATTENDED, | [phone] | [phone] | | | | | RECORD HEART | Fax: | | | | | | RATE/O2 | [phone] | | | | | | SAT/RESP [...] + + | 06/19/ | Hospital | [facility] | Abdoulaye Bauer | CHRISTEN (obstructive | | 2019 - | Encounter | MED CTR SLEEP | [address] | sleep apnea) | | | | [place] [address] | [address] [facility] | | | 06/20/ | | [place], [place] | [facility] [place] [place] [address] | | | 2019 | | [address] | [phone] | | | | | [phone] | | | +--------+ + + + [...] 2020 | Visit | | [address] | | | | | | [place] | | | | | | [address] | | | | | | | [...] Alla Cash Sleep | | | [place] [address] | | | Unattended, Multiparameter, Sleep Apnea [...] using the | | | WatchPat technology ([employer]). This monitors referral | | | arterial [...] Bauer Jr., MD, | | | FAASMMedical DirectorNational Park Medical Center Sleep Disorders | | | [place], [place] | | | Armature Straight[place] | | |elevated at 14.1, and [...] | | | |Abdoulaye Bauer Jr., MD, [facility] | | |Watch Repairer | | |Allapaul Sosa [facility] | | |[facility] | | |PRECIOUS [place] | | |Clinical glassworker | | |[facility] | | |[place], [place] | | + + + + + | Procedure Note | + + | Abdoulaye Bauer Jr., MD - 06/20/2019 3:00 PM THOMAS Cash Sleep | | Disorders [place], [place] [address]Sywcaundfb, | | Multiparameter, Sleep Apnea Test (WATCH-PAT) for Mian Marquez performed on June 19 | | 2019.Identifying Information: Mian Marquez is a 69 y.o. male who is referred for | | unattended, multi-parameter, sleep apnea test because of probable Obstructive Sleep | | Apnea.Technical Information: The study was performed using the WatchPat technology | | ([employer]). This monitors referral arterial tone (PAT) signal [...] Sleep Apnea is advised.Abdoulaye Bauer Jr., MD, [facility] INSTITUTEMedical | | DirectorNational Park Medical Center Sleep Disorders [facility] | | [facility] Armature Straightener [facility] MedicineIn[facility] | | [place], [place] | |Abdoulaye Bauer Jr., MD, [facility] | |Watch Repairer | |[facility] Sleep Disorders [place] | |[facility] | |[place], [place] | |Clinical glassworker | |[facility] | |[place], [place] | + + documented in this encounter Visit Diagnoses + + | Diagnosis | + + | CHRISTEN (obstructive sleep apnea) Obstructive sleep apnea (adult) (pediatric) | + + documented in this encounter"
--- OUTSIDE RECORDS SUMMARY | ~2019-08-23 | XMS | Encounter Summary ---
Demographics + + + | Address | [address] | | | [place] [address] | + + + | Home Phone | | + + + | Preferred Language | Unknown | + + + | Marital Status | Single | + + + | Samaritan Affiliation | RASTAFARI | + + + | Race | White | + + + | Ethnic Group | Not or | + + + Author + + + | Author | [facility] | + + + | Organization | [facility] | + + + | Address | Unknown | + + + | Phone | Unavailable | + + + Support + + +---------+ + | Name | Relationship | Address | Phone | + + +---------+ + | Theodore Marquez | ECON | Unknown | | + + +---------+ + Care Team Providers + +------+ + | Care Housing Liaison Name | Role | Phone | [...] sclerosis | | 2015 | erpretation | [place]/Ophthalmol | [address] | ([facility]) (Primary Dx) | | | | ogy at [facility] [address] | [facility] [place] | | | | | [address] Mailcode: | [address] | | | | | [address] | [phone] | | | | | Health and Healing, | | | | | | | | | | | | Floor [place], [place] | | | | | | [address] | | | | | | [phone] | | | +--------+ + + + [...] neurologist. F/u 1 year Ethel Romo MD [facility] [place] [facility] Ethel Romo MD [facility] [place] [facility] documented in this enc ounter Plan of Treatment +--------+ + + + + | Date | Type | Specialty | Care Team | Description | +--------+ + + + + | 10/31/ | Appointment | Hematology & | Onc, Gen [address] | | | 2020 | | Oncology | [place], | | | | | | [place] [address] | | +--------+ + + + + documented as of this encounter Procedures + +--------+ + + + | Procedure Name | Priori | Date/Time | Associated Diagnosis | Comments | | | ty | | | | + +--------+ + + + | IA VISUAL FIELD | Routin | 05/07/2014 | [...]
--- OUTSIDE RECORDS SUMMARY | ~2019-08-23 | XMS | Encounter Summary ---
Demographics + + + | Address | [address] | | | [place] [address] | + + + | Home Phone [...] | Author | [facility] | | | and Jadenana | + + + | Organization | [facility] | | | and Jadenana [...] | | | | | [place] [address] | | + + + + + Care Team Providers + +------+ + | Care Medication Technician Name | Role | Phone | + +------+ + | Lexie Cagle | PCP | | | RN ON SITE | | | + +------+ + Reason [...] | | | | | Chronic | RN ON [address] | [address] | | | | | pain of | [address] | [place], | | | | | right knee | [place], | [place] | | | | | | [place] [address] | [address] | | | | | | Phone: | Phone: | | | | | | [phone] | [phone] | | | | | | Fax: | Fax: | | | | | | [phone] | [phone] | +--------+ + + + + + [...] | | | | | resembling | RN ON [address] | [address] | | | | | psoriasis | [address] | [place] | | | | | | [place], | [place], [place] | | | | | | [place] [address] | [address] | | | | | | Phone: | Phone: | | | | | | [phone] | [phone] | | | | | | Fax: | Fax: | | | | | | [phone] | [phone] | +--------+ + + + + + [...] + + | 06/01/ | Office | [facility] | Lexie Cagle | Chronic fatigue | | 2019 | Visit | MEDICINE [address] | [address] | disorder (Primary | | | | [facility] | [facility] | Dx); B12 deficiency; | | | | [place] [address] | [place] [address] | Anxiety associated | | | | [phone] | [phone] | with depression; H/O | | | [...] bulking agent; Surgeon: Gina Fernandes MD; Location: [facility] MAIN OR GASTRIC BYPASS SURGERY [...] of bilateral knees today. 4. Referral to [facility] Dermatology entered. 5. Refill on Requip and [...] CBC with Differential Ferritin Referral to Dermatology [facility] Referral to [facility] Orthopedic Surgery Reviewed signs and symptoms that would warrant emergent evaluation. Patient verbalized unde rstanding. Return in about 4 weeks (around 06/29/2018). Patient understands, accepts, and agrees with this plan. Over 25 minuntes spent in face to face time with this patient today. > 50% of time addictions counselor ing regarding the listed conditions, options [...] + | [facility] | [address] | [place] | [phone] | | [facility] | | [address] | | | - LABORATORY | | [...] | | nRBC | | K/uL | [facility] | | | | | | [...] [address] | [place] | [phone] | | [facility] | | [address] | | | - LABORATORY | | [...] 17 | 7 - 18 mg/dL | SPECULATOR | | | | | | [facility] | | | | | | MEDICAL | | | | | | CENTER - | | | | | | LABORATORY | | + + + + + + | Creatinine | 0.84 | 0.60 - 1.30 | SPECULATOR | | | | | mg/dL | [facility] | | | | | | MEDICAL | | | | | | CENTER - | | | | | | LABORATORY | | + + + + + + | eGFR if not | >60Comment: GLOMERULAR | >=60 | SPECULATOR | | | | FILTRATION | mL/min/1.73m2 | [facility] | | | MONG[place]IAN | RATE,ESTIMATED | | MEDICAL | | | | mL/min/1.05l1Rqmp than | | CENTER - | | [...] [address] | [place] | [phone] | | [facility] | | [address] | | | - LABORATORY | | [...] [address] | [place] | [phone] | | [facility] | | [address] | | | - LABORATORY | | [...] [address] | [place] | [phone] | | [facility] | | [address] | | | - LABORATORY | | [...] + | [address] | [address] | [place] | [phone] | | [facility] | | [address] | | | - LABORATORY | | [...] ST. | [address] | [place], [place] | [phone] | | [facility] | | [address] | | | - LABORATORY | | [...] [address] | [place] | [phone] | | [facility] | | [address] | | | - LABORATORY | | [...] [address] | [place] | [phone] | | [facility] | | [address] | | | - LABORATORY | | [...]
--- OUTSIDE RECORDS SUMMARY | ~2019-08-23 | XMS | Encounter Summary ---
Demographics + + + | Address | [address] | | | [place] [address] | + + + | Home Phone | | + + + | Preferred Language | Unknown | + + + | Marital Status | Single | + + + | Hindu Affiliation | TAOIST | + + + [...] Team Providers + +------+ + | Care Clinical Engineer Name | Role | Phone | [...] as of this encounter Progress Notes Interface, Head Of Global Strategic Partnerships In - 10/24/2004 6:39 AM PDTClinic Date: [...] exercising. Gary Yeager M.D. CD / HS [id number] / [id number] / [id number] / Tdocumented in this encounter Plan of Treatment +--------+ + + + + | Date | Type | Specialty | Care Team | Description | +--------+ + + + + | 10/31/ | Appointment | Hematology & | Onc, Gen [address] | | | 2020 | | Oncology | [place], | | | | | | [place] [address] | | +--------+ + + + + documented as of this encounter Visit Diagnoses Not on filedocumented in this encounter"
--- OUTSIDE RECORDS SUMMARY | ~2019-08-23 | XMS | Encounter Summary ---
Demographics + + + | Address | [address] | | | [place] [address] | + + + | Home Phone | | + + + | Preferred Language | Unknown | + + + | Marital Status | | + + + | Amish Affiliation | Unknown | + + + | Race | Unknown | + + + | Ethnic Group | Unknown | + + + Author + + + | Author | [facility] | | | and Jadenana | + + + | Organization | [facility] | [...] | | | | | [place] [address] | | + + + + + Care Team Providers + +------+ + | Care Environmental Permitting Specialist Name | Role | Phone | [...] Frank RN | | | | | [place], [place] | | | | | | [address] | | | | | | [phone] | | | +--------+ + + + [...] [place] | | | | | | [address] | | | | | | | | +--------+---------+ + + + documented as of this encounter Visit Diagnoses Not on filedocumented in this encounter"
--- OUTSIDE RECORDS SUMMARY | ~2019-08-23 | XMS | Encounter Summary ---
Demographics + + + | Address | [address] | | | [place] [address] | + + + | Home Phone | | + + + | Preferred Language | Unknown | + + + | Marital Status | Single | + + + | Voodoo Affiliation | ZOROASTRIANISM | + + + | Race | [...] Providers + +------+ + | Care Fur Dressing Supervisor Name | Role | Phone | [...] | [address] Mailcode: | Eduarda James [place], | | | | | [facility] | [place] [address] | | | | | Health and Healing, | [phone] | | | | | [place] [address] [facility] | | | | | | [place], [place] | | | | | | [address] | | | | | | [phone] | | | +--------+ + + + [...] | | | | | | [place] [address] | | +--------+ + + + + [...]
--- OUTSIDE RECORDS SUMMARY | ~2019-08-23 | XMS | Encounter Summary ---
Demographics + + + | Address | [address] | | | [place] [address] | + + + | Home Phone | | + + + | Preferred Language | Unknown | + + + | Marital Status | Single | + + + | Taoist Affiliation | RELIGION | + + + [...] Team Providers + +------+ + | Care Forge Heater Name | Role | Phone | + +------+ + | Jose Hameed MD | PCP | | + +------+ + Encounter Details +--------+ + + + + | Date | Type | Department | Care Team | Description | +--------+ + + + + | 01/17/ | Leather Stretcher | Neurology at | Christian Maldonado MD | Chronic low back | | 2018 | | [place] for [facility] & | [address] | pain without | | | | Healing [address] | [place], | sciatica, | | | | [place] Mailcode: CH8C | [place] [address] | unspecified back | | | | [facility] | [phone] | pain laterality | | | | and Healing, | | (Primary Dx) | | | | | | | | | | Floor [place], [place] | | | | | | [address] | | | | | | [phone] | | | +--------+ + + + [...] | | | | | | [place] [address] | | +--------+ + + + + [...] signature: Cyrus Alberts | | | MD Donsi 01/17/2018 4:17 PM Preliminary: Cyrus Dykes MD [...]
--- OUTSIDE RECORDS SUMMARY | ~2019-08-23 | XMS | Encounter Summary ---
Demographics + + + | Address | [address] | | | [place] [address] | + + + | Home Phone | | + + + | Preferred Language | Unknown | + + + | Marital Status | Single | + + + | Shinto Affiliation | QUAKER | + + + [...] Providers + +------+ + | Care School Office Assistant Name | Role | Phone | [...] (Parking | | 2016 | on | [place] [facility] & | [address] | Permit) | | | | Healing [address] | Park [facility], | | | | | [place] Mailcode: CH8C | [place] [address] | | | | | [facility] | [phone] | | | | | and [place], | | | | | | [facility] | | | | | | [facility], [place] | | | | | | [address] | | | | | | [phone] | | | +--------+ + + + [...] | | | | | | [place] [address] | | +--------+ + + + + documented as of this encounter Visit Diagnoses Not on filedocumented in this encounter"
--- OUTSIDE RECORDS SUMMARY | ~2019-08-23 | XMS | Encounter Summary ---
Demographics + + + | Address | [address] | | | [place] [address] | + + + | Home Phone | | + + + | Preferred Language | Unknown | + + + | Marital Status | Single | + + + | Moravian Affiliation | ADVENTIST | + + + [...] Team Providers + +------+ + | Care Oven Laborer Name | Role | Phone | + +------+ + | Trevin Delacruz MD | PCP | | + +------+ + Encounter Details +--------+ + + + + | Date | Type | Department | Care Team | Description | +--------+ + + + + | 09/02/ | Document-Sc | Health Information | Unknown . | | | 2014 | anned | Services [address] | | | | | [address] | | | | | | Mailcode: OP17A | | | | | | [facility] | | | | | | [place], [place] | | | | | | [address] | | | | | | [phone] | | | +--------+ + + + [...] | | | | | | [place] [address] | | +--------+ + + + + [...]
--- OUTSIDE RECORDS SUMMARY | ~2019-08-23 | XMS | Encounter Summary ---
Demographics + + + | Address | [address] | | | [place] [address] | + + + | Home Phone | | + + + | Preferred Language | Unknown | + + + | Marital Status | Single | + + + | Hoahaoism Affiliation | MORMONISM | + + + [...] Team Providers + +------+ + | Care Youth Manager Name | Role | Phone | + +------+ + | Rudolph Lee MD | PCP | | + +------+ + Encounter Details +--------+ + + + + | Date | Type | Department | Care Team | Description | +--------+ + + + + | 04/18/ | Letter-Rosa | | Letters, Other | [...] as of this encounter Progress Notes Interface, Graduate Civil Engineer In - 10/10/2005 1:14 AM [place] [facility] and [place] [address] [place], [place] [address] or April 18, 2002 Patrick Stern D.O. [facility] [address] [place], [place] [address] RE: MIAN MARQUEZ MR #: [id number] Dear Gustavo: Thank you very much for the referral of Mian Marquez. I apologize for the tardiness of this letter. I thought you had received copies of his notes, but your e-mail today obviously shows that not to be the case. In any case, Mian underwent a laparoscopic Benito-en-Y divided gastric bypass in January 2002 and is doing very well. I have seen him twice since then, and he is due for another clinic visit in approximately 3 weeks. He has had standard rapid weight loss expected after this operation, and he has in fact recovered very nicely and is not suffering the effects of his multiple sclerosis. He did have a flare of gout after his surgical procedure which has required a prolonged course of nonsteroidal anti-inflammatories which I am anxious to get him off because of risk to his stomach. Hope that you are doing well and that the [place] obesity surgery moratorium has not affected you too much. If you are indeed looking for 2 partners, things must really actually be doing great for you. I hope that we can continue to grow closer in the future. Again, thank you for the referral. Yours truly, Colin Posada M.D. brim and crown presser SHAWN / VICTOR M [id number] / [id number] / [id number] / Tdocumented in this encounter Plan of Treatment +--------+ + + + + | Date | Type | Specialty | Care Team | Description | +--------+ + + + + | 10/31/ | Appointment | Hematology & | Onc, Gen [address] | | | 2020 | | Oncology | [place], | | | | | | [place] [address] | | +--------+ + + + + documented as of this encounter Visit Diagnoses Not on filedocumented in this encounter"
--- OUTSIDE RECORDS SUMMARY | ~2019-08-23 | XMS | Encounter Summary ---
Demographics + + + | Address | [address] | | | [place] [address] | + + + | Home Phone | | + + + | Preferred Language | Unknown | + + + | Marital Status | Single | + + + | Moravian Affiliation | YARSANISM | + + + [...] Team Providers + +------+ + | Care Power Sweeper Operator Name | Role | Phone | [...] as of this encounter Progress Notes Interface, Fiberglass Grinder In - 08/25/2005 1:01 AM PDTClinic Date: 03/04/2003 Clinic: Dermatology Chief Complaint: Itching. History of Present Illness: This 52-year-old white male was seen by myself and Dr. Chris Ro at the Dermatology Clinic at [facility] on March 04, 2003. The patient presented with a 9-month history of generalized pruritus which he stated began subsequent to his gastric bypass surgery one year ago. The patient reports that his pruritus has no accompanying rash. He has tried treatment with tnxm-lfh-dmlhwzk topical medications including Gold Resendiz, 1% hydrocortisone cream, and Aloe vera with minimal relief. He has also taken mgye-bek-sldfpea Benadryl in order to sleep at night. [...] alcohol use. 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 Review of [...] Department of Dermatology Chris Ro M.D. / [id number] / [id number] / [id number] / cc: Rudolph Lee M.D. [address] [id number] signed by Interface, Fiberglass Grinder In at 08/25/2005 1:01 AM PDTdocumented in this encounter Plan of Treatment +--------+ + + + + | Date | Type | Specialty | Care Team | Description | +--------+ + + + + | 10/31/ | Appointment | Hematology & | Onc, Gen [address] | | | 2019 | | Oncology | [address] [place], | | | | | | [place] [address] | | +--------+ + + + + documented as of this encounter Visit Diagnoses Not on filedocumented in this encounter"
--- OUTSIDE RECORDS SUMMARY | ~2019-08-23 | XMS | Encounter Summary ---
Demographics + + + | Address | [address] | | | [place] [address] | + + + | Home Phone | | + + + | Preferred Language | Unknown | + + + | Marital Status | Single | + + + | Confucianist Affiliation | ZOROASTRIANISM | + + + [...] Team Providers + +------+ + | Care Church Communications Administrator Name | Role | Phone | [...] | | | after RYGB | | [facility] | | | | | [address] | | Health and | | | | | | | Healing, | | | | | | | [address] | | | | | | | [place], [place] | | | | | | | [address] | | | | | | | Phone: | | | | | | | [phone] | | | | | | | Fax: | | | | | | | [phone] | +--------+--------+ + + + + Encounter Details +--------+---------+ + + + | Date | Type | Department | Care Team | Description | +--------+---------+ + + + | 09/24/ | Office | Digestive Health | Ivonne Menezes, | Weight gain (Primary | | 2016 | Visit | Center at [facility] [address] | DIESEL RETROFIT INSTALLER [address] | Dx); Gastric | | | | [address] | , [address] | banding status; H/O | | | | Mailcode: Center | [place], [place] | gastric bypass | | | | for [facility] and | [address] | | | | | Healing, [address] | [phone] | | | | | [place], [place] | | | | | | [address] | | | | | | [phone] | | | +--------+---------+ + + + [...] iron Exercise, walking, elliptical, swimming Calories approx. 8017-3403 per day when 3 mos or more out from surgery. Smart Wire Grid.Huupy Protein 60-100+ gms per day Water: 64 oz per day, your urine should be light yellow. Please let up know if you would like a referral to see the Event Av Operator. I would be happy to put in referrals to [facility], medical membership is $198 for 3 mos. If you are 12 mos or more out from surgery and would like referral for excess skin removal please let us know. Call us if you have any questions or concerns, or send [employer] message for non-urgent issue sNatalie Menezes RN, [facility]- Nurse Practitioner for Bariatric Surgery [facility] | [address]D [address] | [place] | [address] | documented in this encounter Progress Notes Ivonne Menezes NP - 09/25/2015 10:33 AM PDTFormatting of this note might be different fr om the original. Display Progress Note in Delta Data Softwarehart: Yes 09/25/2015 Gastric Band FOLLOW-UP Mian Marquez [...] History Procedure Laterality Date Lap-band insertion 2011 [facility]/ in [place] Benito-en-y gastric bypass 2006 [facility]/ [place] Back surgery lumbar Cholecystectomy Social History [...] to POC, will call or send a [employer] message if any issues. Follow-up in 1-2 mos. Start time 1000, end time 1025. I spent a total of 25 minutes face to face with this patien t. Over 50% spent in counseling. ~ 5 Minutes of additional time was spent reviewing chart prior to visit and documenting aft er the visit. Ivonne Menezes RN, [facility]- Nurse Practitioner for Bariatric Surgery [facility] | [address]D [address] | [place] | [address] | documented in this e ncounter Plan of Treatment +--------+ + + + + | Date | Type | Specialty | Care Team | Description | +--------+ + + + + | 10/31/ | Appointment | Hematology & | Onc, Gen [address] | | | 2020 | | Oncology | [address] [place], | | | | | | [place] [address] | | +--------+ + + + + documented as of this encounter Procedures + +--------+ + + + | Procedure Name | Priori | Date/Time | Associated Diagnosis | Comments | | | ty | | | | + +--------+ + + + | AK ADJUST OF GASTRIC | Routin | 09/25/2015 [...]
--- OUTSIDE RECORDS SUMMARY | ~2019-08-23 | XMS | Encounter Summary ---
Demographics + + + | Address | [address] | | | [place] [address] | + + + | Home Phone [...] Author | [facility] | | | and Jadenana | + + + | Organization | [facility] [...] | | | | | [place] [address] | | + + + + + Care Team Providers + +------+ + | Care Radio Frequency Design Engineer Name | Role | Phone | + +------+ + | Lexie Cagle | PCP | | | OCULAR CARE TECHNICIAN | | | + +------+ + Reason for Visit + + + | Reason | Comments | + + + | Surgery Appointment | | + + + Encounter Details +--------+ + + + + | Date | Type | Department | Care Team | Description | +--------+ + + + + | 12/10/ | Telephone | [facility] | Michael Fernandes | Surgery Appointment | | 2019 | | [address] | MD Yaw [address] | | | | | [place] | [place] | | | | | [address] | [address] | | | | | [phone] | | | +--------+ + + + [...] 2019 | Visit | | [address] | | | | | | [place]CI[place] | | | | | | [id number] | | | | | | | | +--------+---------+ + + + documented as of this encounter Visit Diagnoses Not on filedocumented in this encounter"
--- OUTSIDE RECORDS SUMMARY | ~2019-08-23 | XMS | Encounter Summary ---
Demographics + + + | Address | [address] | | | [place] [address] | + + + | Home Phone [...] + | Author | [facility] | | | and Jadenana | + + + | Organization | [facility] | | [...] | | | | | [place] [address] | | + + + + + Care Team Providers + +------+ + | Care Materials Engineer Name | Role | Phone | + +------+ + | No Physician | PCP | Unavailable | + +------+ + Encounter Details +--------+ + + + + | Date | Type | Department | Care Team | Description | +--------+ + + + + | 04/19/ | Hospital | [facility] | Michael Fernandes | Neurogenic bladder; | | 2019 | Encounter | MED CTR OR INTRA OP | MD Yaw [address] | Urge incontinence; | | | | [address] | [address] [place] | 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 | | | | | | MEDICAL [...] + | [address] | [address] | [place] | [phone] | | [facility] | | [address] | | | - LABORATORY | | [...] MD | | | | | | ([id number]) on 04/19/2018 | | | | | [...] day), First | | | dose on [facility] 04/19/18 at 1500, For | | | 3 days, Start 8 hours after | | | pre-op dose., Post-op/Phase II | | + +---+ | | | + +---+ | albuterol 2.5 mg/3 mL nebulizer | | | solution 2.5 mg 2.5 mg, | | | Nebulization, ONCE PRN, Wheezing, | | | Starting [facility] 04/19/18 at 1150, | | | [...] | | | | | Oral, ONCE, [facility] 04/19/18 at 1215, | | PM [...]
--- OUTSIDE RECORDS SUMMARY | ~2019-08-23 | XMS | Encounter Summary ---
Demographics + + + | Address | [address] | | | [place] [address] | + + + | Home Phone | | + + + | Preferred Language | Unknown | + + + | Marital Status | Single | + + + | Yazdanism Affiliation | SCIENTOLOGY | + + + [...] Team Providers + +------+ + | Care 2 Year Olds Preschool Teacher Name | Role | Phone | + +------+ + | Rudolph Lee MD | PCP | | + +------+ + Encounter Details +--------+ + + + + | Date | Type | Department | Care Team | Description | +--------+ + + + + | 08/01/ | Office | | Report, Outpatient | [...] this encounter Progress Notes Interface, Director Of Occupational Health In - 10/14/2005 3:[address] [facility] OUTPATIENT CONSULTATION REPORT [address], [place] [address] or Referred From and Faxed To: Colin Posada M.D. Referred To: Outpatient Nutrition Clinic CONSULTING PHYSICIAN: Shelly Hamilton R.D., L.D. MR#: [id number] Patient: Mian Marquez CONSULTATION DATE: 08/01/2002 FOLLOW UP TELEPHONE CONSULT: Documented time of phone call: 4:30 to 4:50p.m. Length of visit: 20 minutes. 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 Some of these foods include a chicken breast that he ate too fast and got stuck in his stomach, breads that he has had problems with, and other foods that he has overeaten or over consumed. He has a difficult time eating because he knows he felt sick and threw up after eating these foods; so, he is still experiencing some eating timing and eating control issues. He eats very quickly, and he eats too fast and too much at times. Now he is in the state of having an aversion to eating anything at all. He stated he has been attending the support groups at [facility] the of the month. He feels that there is too many people there, 50 people; and by the time they all introduce themselves there is only about a half hour to discuss issues. He feels that he is not heard, does not have the opportunity to talk about his feelings. He has also stated he is bored; and when asked if he is depressed, he said yes. His appetite is none. His weight change is now at 110 pounds of a weight loss since February [address] Posada did a laparoscopic Benito-en-Y surgery. His current weight he stated today is at 241; his height is 5 feet 11 inches. That leaves his body mass index at 34. He has a change of body mass index from 49.5 to 34 over the past 5-1/2 to 6 months. He does have a past medical history of depression. Had done the Optifast diet before. Stated he is still taking the medication ranitidine and is still taking a multivitamin ASSESSMENT: I just feel that patient is developing a food aversion due to eating choices over the past 5-1/2-6 months. I also feel that he is very bored with his meal plan and definitely depressed and needs some more counseling. I feel he needs a one-on-one type counseling. I sent an E-mail to Dr. Posada, Jacquelyn uMrguia, and Kathy Bardales over in the general surgery center and also referred Mr. Marquez to give one of the nurse practitioners a call, perhaps for a resource for some counseling. I thought this might be helpful for him. EDUCATION PROVIDED: Encouraged him that he needs to eat protein. He needs a minimal of 60 grams a day to retain his muscle mass. Also, his fluid intake, he says he is stating 1-2 quarts of fluid a day. I feel it is important that he has a minimum of 1-1/2 quarts. I would rather him have him 2 quarts of fluid a day. I provided education strategies that perhaps when he has an aversion to foods in the past, we need to come up with a different list of foods. I provided a yogurt smoothie recipe that he has not used in the past, that he could change the flavor of on a daily basis. Recommended some breakfast cereal that he could have before work. At his work place, I think it is best to have protein in liquid. I think he gets pretty anxious at work. I think that would be a helpful thing for him to have to drink fluid throughout the day with protein in it to maintain his energy level, and he is able to intake fluid. His evening meal as discussed before in previous notes, he needs to continue to practice his slowing down his eating and portion control. At times he eats too much too quickly. PATIENT'S UNDERSTANDING: Patient needs more encouragement. I feel counseling will be helpful. He seems anxious and depressed. PLAN: Patient's goal. 1. Stir protein powder into juice that he is able to tolerate, and have this during his workday. 2. Try the yogurt smoothie recipe provided today. One yogurt smoothie would provide 10 grams of protein, 300 mg of calcium; and depending upon the fruit added, some fiber and some new flavors. 3. Recommend he seek counseling for depression, disordered eating, an aversion to food and eating. 4. Discussed a web site that may or may not be helpful to him. It is called [employer], a chat room. It may be something he could try. I think the professional one-on-one counseling would be much more helpful. 5. He has my number. I asked him to follow up and call in two weeks to see if some of these suggestions he is able to implement into his eating plan. Shelly Hamilton R.D., LThomas. /pilo P [id number] cc: docuperry d in this encounter Plan of Treatment +--------+ + + + + | Date | Type | Specialty | Care Team | Description | +--------+ + + + + | 10/31/ | Appointment | Hematology & | Onc, Gen [address] | | | 2020 | | Oncology | [place], | | | | | | [place] [address] | | +--------+ + + + + documented as of this encounter Visit Diagnoses Not on filedocumented in this encounter"
--- OUTSIDE RECORDS SUMMARY | ~2019-08-23 | XMS | Encounter Summary ---
Demographics + + + | Address | [address] | | | [place] [address] | + + + | Home Phone | | + + + | Preferred Language | Unknown | + + + | Marital Status | Single | + + + | Bahai Affiliation | TAOIST | + + + [...] Team Providers + +------+ + | Care Envelope Adjuster Name | Role | Phone | + [...] | | | | MRI BRAIN | [place], [place] | for Health | | | | | MULTIPLE | [address] | and Healing, | | | | | SCLEROSIS | Phone: | [address], | | | | | [address] | [phone] | 3rd Floor | | | | | | Fax: | [facility] [place] | | | | | | [phone] | [address] | | | | | | | Phone: | | | | | | | [phone] | | | | | | | Fax: | | | | | | | [phone] | +--------+--------+ + + + + Reason [...] [place] Fitzpatrick | | | | | ([facility]LY [facility]) | Nate | Mailcode: | | | | | Procedures | Eduarda James | [facility] | | | | | MRI BRAIN | [place], [place] | for Health | | | | | MULTIPLE | [address] | and Healing, | | | | | SCLEROSIS | Phone: | [address], | | | | | [address] | [phone] | 3rd Floor | | | | | | Fax: | [place], [place] | | | | | | [phone] | [address] | | | | | | | Phone: | | | | | | | [phone] | | | | | | | Fax: | | | | | | | [phone] | +--------+--------+ + + + + Encounter Details +--------+ + + + + | Date | Type | Department | Care Team | Description | +--------+ + + + + | 01/24/ | Hospital | Diagnostic Imaging | Christian Maldonado MD | | | 2018 | Encounter | Services at [facility] | [address] | | | | | [address] | Eduarda James [facility] | | | | | Eduarda James [place] | [place] [address] | | | | | [facility] | [phone] | | | | | [place], [place] | | | | | | [address] | | | | | | [phone] | | | +--------+ + + + [...] | | | | | | [place] [address] | | +--------+ + + + + [...] + + + | EXAM: MRI BRAIN [facility] MULTIPLE SCLEROSIS HISTORY: assess for | [facility] [...]
--- OUTSIDE RECORDS SUMMARY | ~2019-08-23 | XMS | Encounter Summary ---
Demographics + + + | Address | [address] | | | [place] [address] | + + + | Home Phone | | + + + | Preferred Language | Unknown | + + + | Marital Status | Single | + + + | Sabianism Affiliation | MUSLIM | + + + [...] Providers + +------+ + | Care Fire Support Man Name | Role | Phone | + +------+ + | Jose Hameed MD | PCP | | + +------+ + Encounter Details +--------+ + + + + | Date | Type | Department | Care Team | Description | +--------+ + + + + | 10/31/ | Garnett Fixer | [facility] | [place], | | | 2018 | | Clinics at | MD Patrick [address] | | | | | [facility] | [place], | | | | | for Health and | [place] [address] | | | | | Healing [address] | [phone] | | | | | [place] | | | | | | [address] | | | | | | [phone] | | | +--------+ + + + [...] | | | | | | [place] [address] | | +--------+ + + + + documented as of this encounter Visit Diagnoses Not on filedocumented in this encounter"
--- OUTSIDE RECORDS SUMMARY | ~2019-08-23 | XMS | Encounter Summary ---
Demographics + + + | Address | [address] | | | [place] [address] | + + + | Home Phone [...] + | Author | [facility] | | | and Jadneana | + + + | Organization | [facility] | | [...] | | | | | [place] [address] | | + + + + + Care Team Providers + +------+ + | Care Assembler Fluorescent Lights Name | Role | Phone | + +------+ + | No Physician | PCP | Unavailable | + +------+ + Encounter Details +--------+ + + + + | Date | Type | Department | Care Team | Description | +--------+ + + + + | 04/19/ | Anesthesia | [facility] | Parker Hendricks | | | 2019 | Event | MED CTR OR INTRA OP | MD Chuckie [address] | | | | | [address] | [address] [place], [place] | | | | | [place], [place] | [address] | | | | | [address] | | | | | | [phone] | | | +--------+ + + + [...] + + | 01 | 1 | | | | /2 | 2 | | | | 4/ | 2 | | | | 20 | 8 | | | | 19 | | | | +----+---+ + + | | 1 | An Checkout | Pre-use anesthesia machine/equipment checkout. | | | 2 | | | | | 3 | | | | | 1 | [...] + + | | 1 | an laith now | | | | 2 | [...] +----+---+ + + | | 1 | Omro | | | | 2 | 43-degrees [...] +----+---+ + + | | 1 | Omro off | | | | 3 | [...] | 04/19/18; 1339; indicated due to | 04/19/181338 by | [...] by Cricket | | eral | Antecubital; [id number] | Bernadette William RN | Nik Kathleen RN | | IV | catheter system; 20 gauge; | | | | | Hematology; 2; left [...] | Wound | 04/19/18; 1307; Incision; | 01/24/19 1307 by | 04/19/18 1513 by Cricket | | | Bilateral; penis; 04/19/18; 1513 | Yaz Ayala RN | Nik Kathleen RN | +--------+ + + + documented in [...] | | | | | [place] | | | | | | [id number] | | | | | | | | +--------+---------+ + + + documented as of this encounter Visit Diagnoses Not on filedocumented in this encounter Administered Medications + +--------+ +-------+------+------+ | Medication Order | MAR | Action | Dose | Rate | Site | | | Action | Date | | | | + +--------+ +-------+------+------+ | ePHEDrine (AKOVAZ) 50 mg/mL | Given | 04/19/19 | 10 mg | | | | injection Intravenous, PRN, | | 19 1:12 | | | | | Starting [facility] 04/19/18 at 1312, | | PM PST | | | | | Anesthesia Intra-op | | | | | | + +--------+ +-------+------+------+ +-------+ +-------+---+---+ | Given | 04/19/19 | 10 mg | | | | | 19 1:10 | | | | | | PM PST | | | | +-------+ +-------+---+---+ +---+---+ | | | +---+---+ + +---------+ +-----+---+---+ | ertapenem (INVanz) 1 g in | New Bag | 04/19/19 | 1 g | | | | sodium chloride 0.9% 50 mL IVPB | | 19 12:48 | | | | | 1 g, Intravenous, Administer over | | PM PST | | | | | 30 Minutes, Prior to Incision, | | | | | | | Starting [facility] 04/19/18 at 0319, For | | | | | | | 1 dose, Activate system and mix | | | | | | | before use., Pre-op, Indications: | | | | | | | Surgical Prophylaxis | | | | | | + +---------+ +-----+---+---+ +---+---+ | | | +---+---+ + +-------+ +--------+---+---+ | HYDROmorphone (DILAUDID) 2 | Given | 04/19/19 | 0.5 mg | | | | mg/mL injection Intravenous, | | 19 1:34 | | | | | PRN, Pain, Starting Jemma 04/19/18 | | PM PST | | | | | at 1300, Anesthesia Intra-op | | | | | | + +-------+ +--------+---+---+ +-------+ +--------+---+---+ | Given | 04/19/19 | 0.5 mg | | | | | 19 1:23 | | | | | | PM PST | | | | +-------+ +--------+---+---+ | Given | 04/19/19 | 0.5 mg | | | | | 19 1:00 | | | | | | PM PST | | | | +-------+ +--------+---+---+ +---+---+ | | | +---+---+ + +-------+ +-------+---+---+ | lidocaine (PF) 2% injection | Given | 04/19/19 | 60 mg | | | | PRN, Starting [facility] 04/19/18 at | | 19 12:55 | | | | | 1255, Anesthesia Intra-op | | PM PST | | | | + +-------+ +-------+---+---+ +---+---+ | | | +---+---+ + +-------+ +------+---+---+ | midazolam (VERSED) 1 mg/mL | Given | 04/19/19 | 2 mg | | | | injection Intravenous, PRN, | | 19 12:45 | | | | | Anxiety, Starting Jemma 04/19/18 at | | PM PST | | | | | 1245, Anesthesia Intra-op | | | | | | + +-------+ +------+---+---+ +---+---+ | | | +---+---+ + +-------+ +--------+---+---+ | propofol (DIPRIVAN) injection | Given | 04/19/19 | 150 mg | | | | Intravenous, PRN, Starting Jemma | | 19 12:55 | | | | | 04/19/18 at 1255, Anesthesia | | PM PST | | | | | Intra-op | | | | | | + +-------+ +--------+---+---+ +---+---+ | | | +---+---+ + +---------+ + +-------+---+ | propofol (DIPRIVAN) injection | New Bag | 04/19/19 | 50 | 27.4 | | | Intravenous, CONTINUOUS PRN, | | 19 1:02 | mcg/kg/m | mL/hr | | | Starting Jemma 04/19/18 at 1302, | | PM PST | in | | | | Anesthesia Intra-op | | | | | | + +---------+ + +-------+---+ +---+---+ | | | +---+---+ documented in this encounter"
--- OUTSIDE RECORDS SUMMARY | ~2019-08-23 | XMS | Encounter Summary ---
Demographics + + + | Address | [address] | | | [place] [address] | + + + | Home Phone | | + + + | Preferred Language | Unknown | + + + | Marital Status | Single | + + + | Restorationism Affiliation | JEWISH | + + + [...] + +------+ + | Care Real Estate Sales Agent Name | Role | Phone | + +------+ + | Trevin Delacruz MD | PCP | | + +------+ + Reason for Visit + + + | Reason | Comments | + + + | Medication Questions | | + + + Encounter Details +--------+ + + + + | Date | Type | Department | Care Team | Description | +--------+ + + + + | 08/04/ | Telephone | Digestive Health | Liliana Conteh, | Medication Questions | | 2014 | | [place] [address] | [facility] [address] | | | | | [address] | [place], [place] | | | | | Mailcode: [place] | [address] | | | | | for Health and | | | | | | [facility], [facility] | | | | | | [facility] [place] | | | | | | [address] | | | | | | | [...] | | | | | | [place] [address] | | +--------+ + + + + documented as of this encounter Visit Diagnoses Not on filedocumented in this encounter"
--- OUTSIDE RECORDS SUMMARY | ~2019-08-23 | XMS | Encounter Summary ---
Demographics + + + | Address | [address] | | | [place] [address] | + + + | Home Phone [...] Team Providers + +------+ + | Care Screw Driver Operator Name | Role | Phone | [...] Medication Questions | | 2014 | | [place] [address] | [facility] [address] | | | | | [address] | Ave [place], [place] | | | | | Mailcode: [place] | [address] | | | | | for Health and | | | | | | [facility], [facility] | | | | | | [facility] [place] | | | | | | [address] | | | | | | | [...] | | | | | | [place] [address] | | +--------+ + + + + documented as of this encounter Visit Diagnoses Not on filedocumented in this encounter"
--- OUTSIDE RECORDS SUMMARY | ~2019-08-23 | XMS | Encounter Summary ---
Demographics + + + | Address | [address] | | | [place] [address] | + + + | Home Phone [...] | Author | [facility] | | | and Jadenana | + + + | Organization | [facility] | [...] | | | | | [place] [address] | | + + + + + Care Team Providers + +------+ + | Care Muffler Tender Name | Role | Phone | + +------+ + | Lexie Calge | PCP | | | SOFTWARE ENGINEER ADVISOR | | | + +------+ + Reason for Visit + + + | Reason | Comments | + + + | Neurogenic Bladder | | + + + Encounter Details +--------+ + + + + | Date | Type | Department | Care Team | Description | +--------+ + + + + | 04/20/ | Clinical | [facility] | Michael Fernandes | Neurogenic bladder | | 2019 | Support | [address] | MD Yaw [address] | (Primary Dx) | | | | PRECIOUS [place] | PRECIOUS [place] | | | | | [address] | [address] | | | | | [phone] | | | +--------+ + + + [...] do so when he gets home to [place]. Patient denies rose mary n at this [...] [place] | | | | | | [id number] | | | | | | | | +--------+---------+ + + + documented as of this encounter Visit Diagnoses + + | Diagnosis | + + | Neurogenic bladder - Primary Neurogenic bladder, NOS | + + documented in this encounter"
--- OUTSIDE RECORDS SUMMARY | ~2019-08-23 | XMS | Encounter Summary ---
Demographics + + + | Address | [address] | | | [place] [address] | + + + | Home Phone | | + + + | Preferred Language | Unknown | + + + | Marital Status | Single | + + + | Denominational Affiliation | RESTORATIONISM | + + + | Race | [...] Team Providers + +------+ + | Care Psychiatric Nurse Practitioner Name | Role | Phone | + [...] as of this encounter Progress Notes Interface, Sales Professional Bilingual In - 10/24/2004 6:13 AM PDT [id number] [facility] Date: 03/15/2004 Clinic: Mr. Marquez is about [...] diet. Gary Yeager M.D. CD / HS [id number] / [id number] / [id number] / [id number] Electronically signed by Gary Yeager 09-22-2004 10:15:18 AM documented carol stone this encounter Plan of Treatment +--------+ + + + + | Date | Type | Specialty | Care Team | Description | +--------+ + + + + | 10/31/ | Appointment | Hematology & | Onc, Gen [address] | | | 2020 | | Oncology | [place], | | | | | | [place] [address] | | +--------+ + + + + documented as of this encounter Visit Diagnoses Not on filedocumented in this encounter"
--- OUTSIDE RECORDS SUMMARY | ~2019-08-23 | XMS | Encounter Summary ---
Demographics + + + | Address | [address] | | | [place] [address] | + + + | Home Phone [...] Team Providers + +------+ + | Care Therapist Speech Name | Role | Phone | + [...] | Clinics at S | MD Patrick [address] | | | | | [facility] | [place], | | | | | for Health and | [place] [address] | | | | | Healing [address] | [phone] | | | | | [place], [place] | | | | | | [address] | | | | | | [phone] | | | +--------+ + + + [...] | | | | | | [place] [address] | | +--------+ + + + + documented as of this encounter Visit Diagnoses Not on filedocumented in this encounter"
--- OUTSIDE RECORDS SUMMARY | ~2019-08-23 | XMS | Encounter Summary ---
Demographics + + + | Address | [address] | | | [place] [address] | + + + | Home Phone | | + + + | Preferred Language | Unknown | + + + | Marital Status | Single | + + + | Jain Affiliation | ROMAN CATHOLIC | + + [...] Team Providers + +------+ + | Care Early Childhood Lead Teacher Name | Role | Phone | + +------+ + | Jose Hameed MD | PCP | | + +------+ + Encounter Details +--------+ + + + + | Date | Type | Department | Care Team | Description | +--------+ + + + + | 01/16/ | Telephone | Neurology at | [place], | | | 2019 | | [facility] & | Shiloh Mukherjee MD | | | | | Healing [address] | [address] | | | | | Ave Mailcode: CH8C | [place], [place] | | | | | [facility] | [address] | | | | | and Healing, | [phone] | | | | | | | | | | | Floor [place], [place] | | | | | | [address] | | | | | | [phone] | | | +--------+ + + + [...] | | | | | | [place] [address] | | +--------+ + + + + documented as of this encounter Visit Diagnoses Not on filedocumented in this encounter"
--- OUTSIDE RECORDS SUMMARY | ~2019-08-23 | XMS | Encounter Summary ---
Demographics + + + | Address | [address] | | | [place] [address] | + + + | Home Phone | | + + + | Preferred Language | Unknown | + + + | Marital Status | Single | + + + | Yarsanism Affiliation | CHRISTIAN | + + + [...] Team Providers + +------+ + | Care Garment Mender Name | Role | Phone | + [...] + + | 08/21/ | Hospital | [facility] GI PROCEDURE | Emilie Sanchez, | | | 2014 | Encounter | [address] | | | | | | [place] Mailcode: [facility] | | | | | | [facility] | | | | | | Health and Healing, | | | | | | Building [address] | | | | | | [place], [place] | | | | | | [address] | | | | | | [phone] | | | +--------+ + + + [...] Monday 8:00- 4:30 Endoscopy Toll Free ext [phone] or After business hours, or on weekends and holiday Hospital OperatorToll Free -[phone] ext. [phone] and have the GI doctor welding production supervisor paged. The provider who performed your procedure [...] | | | | | | [place] [address] | | +--------+ + + + + [...] 2:57 | | | | | Starting [facility] 08/21/14 at 1431, | | PM PDT | | | | | Until [facility] 08/21/14 at 1457 | | | | [...]
--- OUTSIDE RECORDS SUMMARY | ~2019-08-23 | XMS | Encounter Summary ---
Demographics + + + | Address | [address] | | | [place] [address] | + + + | Home Phone | | + + + | Preferred Language | Unknown | + + + | Marital Status | Single | + + + | Sabianism Affiliation | YAZIDI | + + + [...] Team Providers + +------+ + | Care Paddock Judge Name | Role | Phone | [...] | | | | Mailcode: CH10U | [place], [place] | | | | | [facility] | [address] | | | | | and [place], | [phone] | | | | | [facility] | | | | | | Floor [facility] [place] | | | | | | [address] | | | | | | [phone] | | | +--------+ + + + [...] | | | | | | [place] [address] | | +--------+ + + + + documented as of this encounter Visit Diagnoses Not on filedocumented in this encounter"
--- OUTSIDE RECORDS SUMMARY | ~2019-08-23 | XMS | Encounter Summary ---
Demographics + + + | Address | [address] | | | [place] [address] | + + + | Home Phone | | + + + | Preferred Language | Unknown | + + + | Marital Status | Single | + + + | Evangelical Affiliation | YARSANISM | + + + [...] Team Providers + +------+ + | Care Consumer Electronics Merchandiser Name | Role | Phone | + [...] Questions | | | | Surgery at [facility] [address] | | | | | Kayli Fitzpatrick | [place], [place] | | | | | Mailcode: MKMone | [address] | | | | | [facility] | [phone] | | | | | and [place], | | | | | | Building | | | | | | Floor [place], [place] | | | | | | [address] | | | | | | [phone] | | | +--------+ + + + [...] | | | | | | [place] [address] | | +--------+ + + + + documented as of this encounter Visit Diagnoses Not on filedocumented in this encounter"
--- OUTSIDE RECORDS SUMMARY | ~2019-08-23 | XMS | Encounter Summary ---
Demographics + + + | Address | [address] | | | [place] [address] | + + + | Home Phone [...] | Located Within [facility] | | | and Jaden[place] | + + + | Organization | Located Within [facility] | | [...] | | | | | [place] [address] | | + + + + + Care Team Providers + +------+ + | Care Groover And Turner Name | Role | Phone | + +------+ + | Lexie Cagle | PCP | | | FORMING MACHINE UPKEEP MECHANIC HELPER | | | + +------+ + Encounter Details +--------+ + + + + | Date | Type | Department | Care Team | Description | +--------+ + + + + | 07/04/ | Hospital | [facility] | Trevin Xiao | Pain in both knees, | | 2019 | Encounter | [facility] | MD [address] | unspecified | | | | [address] | [address] [place] | chronicity | | | | PRECIOUS [place] | [place] [address] | | | | | [address] | [phone] | | | | | [phone] | | | +--------+ + + + [...] [place] | | | | | | [id number] | | | | | | | [...] | | | Dictated and Signed by: mW Batres MD Electronically | | | signed: [...]
--- OUTSIDE RECORDS SUMMARY | ~2019-08-23 | XMS | Encounter Summary ---
Demographics + + + | Address | [address] | | | [place] [address] | + + + | Home Phone | | + + + | Preferred Language | Unknown | + + + | Marital Status | Single | + + + | Amish Affiliation | TAOIST | + + + [...] Team Providers + +------+ + | Care Display Artist Name | Role | Phone | + [...] + + + + | 03/03/ | Anesthesia | 6A Intra Op 3181 | Fredrick Pizarro, | | | 2014 | Event | [address] | ,PhD [address] | | | | | [facility] | [address] | | | | | Hospital Admitting | [place], [place] | | | | | Desk Located on the | [address] | | | | | 9th floor | [phone] | | | | | [facility] [place] | | | | | | [address] | Jesse Cordero, | | | | | | STUNT PERFORMER [address] | | | | | | [address] | | | | | | [place], [place] | | | | | | [address] | | | | | | [phone] | | | | | | | | +--------+ + + + + Anesthesia Record + + + + + | Procedure Name | Responsible | Anesthesia Start | Anesthesia Stop Time | | | Anesthesiologist | Time | | + + + + + | PANNICULECTOMY (N/A | Per Zac Pizarro, | 03/03/15 0726 | 03/03/15 1007 | | Abdomen) | PhD CHAYITO | | | + + + + + +----+---+ + + | Da | T | Event | Comment | | te | i | | | | | m | | | | | e | | | +----+---+ + + | 12 | 0 | Eq Check | Anesthesia machine checked Equipment verified | | /0 | 6 | | | | 8/ | 5 | | | | 20 | 9 | | | | 15 | | | | +----+---+ + + | | 0 | Pt. Check | Prior to anesthesia start, pt. Identified, examined, chart | | | 7 | | reviewed, PARQ held, anesthetic plan made or approved by | | | 1 | | attending anesthesiologist. NPO status confirmed as appropriate | | | 7 | | for procedure Preoperative evaluation: unchanged | +----+---+ + + | | 0 | An Start | | | | 7 | | | | | 2 | | | | | 6 | | | +----+---+ + + | | 0 | An Start | | | | 7 | Data | | | | 2 | | | | | 9 | | | +----+---+ + + | | 0 | Vitals | Monitors applied Vital signs checked Patient ready for anesthesia | | | 7 | Checked | | | | 3 | | | | | 5 | | | +----+---+ + + | | 0 | Std. Airway | | | | 7 | Mgt. | | | | 4 | | | | | 1 | | | +----+---+ + + | | 0 | Ready | | | | 7 | | | | | 4 | | | | | 6 | | | +----+---+ + + | | 0 | Abx | | | | 7 | Administere | | | | 5 | d | | | | 2 | | | +----+---+ + + | | 0 | Timeout | | | | 8 | | | | | 1 | | | | | 5 | | | +----+---+ + + | | 0 | Incision | | | | 8 | | | | | 1 | | | | | 8 | | | +----+---+ + + | | 0 | Surgery end | | | | 9 | | | | | 5 | | | | | 6 | | | +----+---+ + + | | 0 | An Extubate | Neuromuscular function Intact. Pharynx suctioned. Patient obeys | | | 9 | | commands. Adequate pulmonary mechanics. | | | 5 | | | | | 8 | | | +----+---+ + + | | 1 | Anesthesia | | | | 0 | End | | | | 0 | | | | | 7 | | | +----+---+ + + +------+ | Meds | +------+ + + + | Name | Total | + + + | midazolam | 2 mg | + + + | propofol | 160 mg | + + + | fentaNYL | 100 mcg | + + + | lidocaine 2% | 90 mg | + + + | rocuronium | 80 mg | + + + | ceFAZolin | 2,000 mg | + + + | ePHEDrine | 35 mg | + + + | PHENYLEPHrine | 300 mcg | + + + | HYDROmorphone | 0.8 mg | + + + | ondansetron | 4 mg | + + + | dexmedetomidine | 100 mcg | + + + | glycopyrrolate | 0.6 mg | + + + | neostigmine | 3 mg | + + + | LR | 700 mL | + + + + + | Name | + + | Insp Sevo | + + | Et Sevo | + + | O2 Flow Rate (Total Liters) | + + | Air Flow rate (L/min) | + + + + | No blood administrations on file. | + + +--------+ + + + | Type | Details | Placement | Removal | +--------+ + + + | Incisi | 03/03/15; Richy; Lower, | 03/03/15 0000 by | 01/13/17 0659 by | | on | Transverse; abdomen; 01/13/17 | Pattie Ornelas RN | Discontinued After | | | (Automatic cleanup per RA | | Discharge | | | 3006--contact admin for | | | | | questions.); 0659 (Automatic | | | | | cleanup per RA 3006--contact | | | | | admin for questions.) | | | +--------+ + + + | Drain | 03/03/15; Richy; APRYL; Right; adb- | 03/03/15 0000 by | 01/13/17 0659 by | | | lower quadrant; 01/13/17 | Pattie Ornelas RN | Discontinued After | | | (Automatic cleanup per RA | | Discharge | | | 3006--contact admin for | | | | | questions.); 0659 (Automatic | | | | | cleanup per RA 3006--contact | | | | | admin for questions.) | | | +--------+ + + + | Drain | 03/03/15; Lockhart; APRYL; Left; adb- | 03/03/15 0000 by | 01/13/17 0659 by | | | lower quadrant; 01/13/17 | Pattie Ornelas RN | Discontinued After | | | (Automatic cleanup per RA | | Discharge | | | 3006--contact admin for | | | | | questions.); 0659 (Automatic | | | | | cleanup per RA 3006--contact | | | | | admin for questions.) | | | +--------+ + + + | Periph | 03/03/15; 0638; Left; Hand; 20 g; | 03/03/15 0638 by | 03/03/15 1222 by | | eral | Positive; 03/03/15; 1222 | Chris Ambrosio RN | Manju Morales RN | | IV | | | | +--------+ + + + | Urethr | 03/03/15; 0753; Benigno Mahoney | 03/03/15 0753 by | 03/03/15 1007 by | | serenity | RN; Iqra (Latex free chapa kit. | Benigno Mahoney, | Benigno Mahoney, | | Cathet | 2 Castile wipes used to clean | RN | RN | | er | site prior to insertion); 16 Fr.; | | | | | 10 mL; 03/03/15; 1007 | | | +--------+ + + + | Periph | M PRICILA srna; 18 g; 03/03/15; | 03/03/15818 by | 03/03/151822 by | | eral | 1823 | | Discontinued After | | IV | | | Discharge | +--------+ + + + documented in [...] | | | | | | [place] [address] | | +--------+ + + + + documented as of this encounter Visit Diagnoses Not on filedocumented in this encounter Administered Medications + +--------+ + +------+------+ | Medication Order | MAR | Action | Dose | Rate | Site | | | Action | Date | | | | + +--------+ + +------+------+ | ceFAZolin (ANCEF) injection | Given | 03/03/20 | 2,000 mg | | | | intravenous, INTRAPROCEDURE PRN, | | 15 7:41 | | | | | Starting Mon03/03/15 at 0741, | | AM PST | | | | | Until Mon03/03/15 at 1007 | | | | | | + +--------+ + +------+------+ +---+---+ | | | +---+---+ + +-------+ +---------+---+---+ | dexmedetomidine INTRAPROCEDURE | Given | 03/03/20 | 100 mcg | | | | PRN, Starting Mon03/03/15 at | | 15 9:18 | | | | | 0918, Until Mon03/03/15 at 1007 | | AM PST | | | | + +-------+ +---------+---+---+ +---+---+ | | | +---+---+ + +-------+ +-------+---+---+ | ePHEDrine injection | Given | 03/03/20 | 10 mg | | | | intravenous, INTRAPROCEDURE PRN, | | 15 9:05 | | | | | Starting Mon03/03/15 at 0741, | | AM PST | | | | | Until Mon03/03/15 at 1007 | | | | | | + +-------+ +-------+---+---+ +-------+ +-------+---+---+ | Given | 03/03/20 | 10 mg | | | | | 15 7:43 | | | | | | AM PST | | | | +-------+ +-------+---+---+ | Given | 03/03/20 | 15 mg | | | | | 15 7:41 | | | | | | AM PST | | | | +-------+ +-------+---+---+ +---+---+ | | | +---+---+ + +-------+ +---------+---+---+ | fentaNYL citrate (PF) | Given | 03/03/20 | 100 mcg | | | | (SUBLIMAZE) injection | | 15 7:35 | | | | | INTRAPROCEDURE PRN, Starting Tue | | AM PST | | | | | 03/03/15 at 0735, Until Tue | | | | | | | 03/03/15 at 1007, sedation | | | | | | + +-------+ +---------+---+---+ +---+---+ | | | +---+---+ + +-------+ +--------+---+---+ | glycopyrrolate (ROBINUL) | Given | 03/03/20 | 0.6 mg | | | | injection INTRAPROCEDURE PRN, | | 15 9:25 | | | | | Starting 03/03/15 at 0925, | | AM PST | | | | | Until 03/03/15 at 1007 | | | | | | + +-------+ +--------+---+---+ +---+---+ | | | +---+---+ + +-------+ +--------+---+---+ | HYDROmorphone (DILAUDID) | Given | 03/03/20 | 0.4 mg | | | | injection INTRAPROCEDURE PRN, | | 15 8:18 | | | | | Starting Mon03/03/15 at 0813, | | AM PST | | | | | Until e 03/03/15 at 1007, | | | | | | | sedation | | | | | | + +-------+ +--------+---+---+ +-------+ +--------+---+---+ | Given | 03/03/20 | 0.4 mg | | | | | 15 8:06 | | | | | | AM PST | | | | +-------+ +--------+---+---+ +---+---+ | | | +---+---+ + + + +---+---+---+ | lactated ringers IV | given by | 03/03/20 | | | | | INTRAPROCEDURE CONTINUOUS PRN, | | 15 10:06 | | | | | Starting 03/03/15 at 0729, | anesthes | AM PST | | | | | Until e 03/03/15 at 1007 | iology | | | | | + + + +---+---+---+ +---------+ +---+---+---+ | New Bag | 03/03/20 | | | | | | 15 8:33 | | | | | | AM PST | | | | +---------+ +---+---+---+ | New Bag | 03/03/20 | | | | | | 15 7:29 | | | | | | AM PST | | | | +---------+ +---+---+---+ +---+---+ | | | +---+---+ + +-------+ +-------+---+---+ | lidocaine PF (XYLOCAINE MPF) 20 | Given | 03/03/20 | 90 mg | | | | mg/mL (2 %) injection | | 15 7:35 | | | | | INTRAPROCEDURE PRN, Starting Tue | | AM PST | | | | | 03/03/15 at 0735, Until Tue | | | | | | | 03/03/15 at 1007 | | | | | | + +-------+ +-------+---+---+ +---+---+ | | | +---+---+ + +-------+ +------+---+---+ | midazolam (VERSED) injection | Given | 03/03/20 | 2 mg | | | | INTRAPROCEDURE PRN, Starting Tue | | 15 7:29 | | | | | 03/03/15 at 0729, Until Tue | | AM PST | | | | | 03/03/15 at 1007, sedation | | | | | | + +-------+ +------+---+---+ +---+---+ | | | +---+---+ + +-------+ +------+---+---+ | neostigmine (PROSTIGMIN) | Given | 03/03/20 | 3 mg | | | | injection intravenous, | | 15 9:25 | | | | | INTRAPROCEDURE PRN, Starting Tue | | AM PST | | | | | 03/03/15 at 0925, Until Tue | | | | | | | 03/03/15 at 1007 | | | | | | + +-------+ +------+---+---+ +---+---+ | | | +---+---+ + +-------+ +------+---+---+ | ondansetron (ZOFRAN) injection | Given | 03/03/20 | 4 mg | | | | INTRAPROCEDURE PRN, Starting Tue | | 15 9:18 | | | | | 03/03/15 at 0918, Until Tue | | AM PST | | | | | 03/03/15 at 1007 | | | | | | + +-------+ +------+---+---+ +---+---+ | | | +---+---+ + +-------+ +---------+---+---+ | PHENYLEPHrine 100 mcg/mL IV | Given | 03/03/20 | 100 mcg | | | | syringe INTRAPROCEDURE PRN, | | 15 8:13 | | | | | Starting 03/03/15 at 0743, | | AM PST | | | | | Until 03/03/15 at 1007 | | | | | | + +-------+ +---------+---+---+ +-------+ +---------+---+---+ | Given | 03/03/20 | 100 mcg | | | | | 15 8:03 | | | | | | AM PST | | | | +-------+ +---------+---+---+ | Given | 03/03/20 | 100 mcg | | | | | 15 7:43 | | | | | | AM PST | | | | +-------+ +---------+---+---+ +---+---+ | | | +---+---+ + +-------+ +--------+---+---+ | propofol INTRAPROCEDURE PRN, | Given | 03/03/20 | 160 mg | | | | Starting e 03/03/15 at 0741, | | 15 7:41 | | | | | Until e 03/03/15 at 1007 | | AM PST | | | | + +-------+ +--------+---+---+ +---+---+ | | | +---+---+ + +-------+ +-------+---+---+ | rocuronium (ZEMURON) injection | Given | 03/03/20 | 40 mg | | | | INTRAPROCEDURE PRN, Starting Tue | | 15 8:34 | | | | | 03/03/15 at 0741, Until Tue | | AM PST | | | | | 03/03/15 at 1007, Neuromuscular | | | | | | | block | | | | | | + +-------+ +-------+---+---+ +-------+ +-------+---+---+ | Given | 03/03/20 | 40 mg | | | | | 15 7:41 | | | | | | AM PST | | | | +-------+ +-------+---+---+ +---+---+ | | | +---+---+ documented in this encounter"
--- OUTSIDE RECORDS SUMMARY | ~2019-08-23 | XMS | Encounter Summary ---
Demographics + + + | Address | [address] | | | [place] [address] | + + + | Home Phone | | + + + | Preferred Language | Unknown | + + + | Marital Status | | + + + | Baptist Affiliation | Unknown | + + + | Race | Unknown | + + + | Ethnic Group | Unknown | + + + Author + + + | Author | and [facility] | | | and Jadenana | + + + | Organization | and [facility] | | | and [...] | | | | | [place] [address] | | + + + + + Care Team Providers + +------+ + | Care Systems Analyst Developer Name | Role | Phone | [...] | | | | | [address] | [address] [place], [place] | | | | | [place], [place] | [address] | | | | | [address] | | | | | | [phone] | | | +--------+ + + + + Anesthesia Record + + + + + | Procedure Name | Responsible | Anesthesia Start | Anesthesia Stop Time | | | Anesthesiologist | Time | | + + + + + | Cystoscopy, bladder | Parker Hendrciks, | 04/19/18 1246 | 04/19/18 1353 | [...] +----+---+ + + | | 1 | Leroy | | | | 2 | 43-degrees [...] +----+---+ + + | | 1 | Leroy off | | | | 3 | [...] by Cricket | | eral | Antecubital; [id number] | Bernadette William RN | Nik Kathleen [...] | | | | | [place] | | | | | | [id number] | | | | | | | [...] 1:12 | | | | | Starting [facility] 04/19/18 at 1312, | | PM PST [...] | | | | | Starting [facility] 04/19/18 at 0319, For | | [...] mg | | | | PRN, Starting [facility] 04/19/18 at | | 19 12:55 | [...]
--- OUTSIDE RECORDS SUMMARY | ~2019-08-23 | XMS | Encounter Summary ---
Demographics + + + | Address | [address] | | | [place] [address] | + + + | Home Phone | | + + + | Preferred Language | Unknown | + + + | Marital Status | | + + + | Episcopalian Affiliation | Unknown | + + + | Race | Unknown | + + + | Ethnic Group | Unknown | + + + Author + + + | Author | [facility] | | | and Jaden[place] | + + + | Organization | [facility] | [...] | | | | | [place] [address] | | + + + + + Care Team Providers + +------+ + | Care Engineer Process Name | Role | Phone | + +------+ + | Lexie Cagle | PCP | | | SALES OFFICE ASSISTANT | | | + +------+ + Reason for Visit + + + | Reason | Comments | + + + | Lab Results | | + + + Encounter Details +--------+ + + + + | Date | Type | Department | Care Team | Description | +--------+ + + + + | 11/29/ | Telephone | [facility] | Lexie Cagle | Lab Results | | 2019 | | MEDICINE [address] | [address] | | | | | [address] | [address] [facility] | | | | | [place] [address] | [place] [address] | | | | | [phone] | [phone] | | | | | | | [...] [place] | | | | | | [address] | | | | | | | | +--------+---------+ + + + documented as of this encounter Visit Diagnoses + + | Diagnosis | + + | Hypoglycemia - Primary Hypoglycemia, unspecified | + + documented in this encounter"
--- OUTSIDE RECORDS SUMMARY | ~2019-08-23 | XMS | Encounter Summary ---
Demographics + + + | Address | [address] | | | [place] [address] | + + + | Home Phone [...] + + | Author | [facility] | | | and Jadenana | + + + | Organization | [facility] | | | and [place] [...] | | | | | [place] [address] | | + + + + + Care Team Providers + +------+ + | Care Calender Operator Name | Role | Phone | + +------+ + | Lexie Cagle | PCP | | | WIRER | | | + +------+ + Reason for Visit + + + | Reason | Comments | + + + | Surgery Appointment | | + + + Encounter Details +--------+ + + + + | Date | Type | Department | Care Team | Description | +--------+ + + + + | 05/02/ | Telephone | [facility] | Michael Fernandes | Surgery Appointment | | 2019 | | [address] | MD [address] | | | | | [place] | [place] | | | | | [address] | [address] | | | | | [phone] | | | +--------+ + + + [...] 2019 | Visit | | [address] | | | | | | PRECIOUS [place] | | | | | | [address] | | | | | | | | +--------+---------+ + + + documented as of this encounter Visit Diagnoses Not on filedocumented in this encounter"
--- OUTSIDE RECORDS SUMMARY | ~2019-08-23 | XMS | Encounter Summary ---
Demographics + + + | Address | [address] | | | [place] [address] | + + + | Home Phone | | + + + | Preferred Language | Unknown | + + + | Marital Status | Single | + + + | Advent Affiliation | YARSANI | + + + [...] Providers + +------+ + | Care Production Team Member Name | Role | Phone | + [...] | | | | | | [facility] [place] | | | | | | | [facility] | | | | | | | and Healing, | | | | | | | [address], | | | | | | | 5th Floor | | | | | | | [place], [place] | | | | | | | [address] | | | | | | | Phone: | | | | | | | [phone] | +--------+--------+ + + + + Encounter Details +--------+---------+ + + + | Date | Type | Department | Care Team | Description | +--------+---------+ + + + | 05/22/ | Office | Plastic and | Neto Lockhart, | 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 | [address] | | | | | Surgery at [facility] [address] | | | | | [address] | [place], [place] | | | | | Mailcode: [facility] | [address] | | | | | [facility] | [phone] | | | | | and Healing, | | | | | | [facility] , | | | | | | Floor [place], [place] | | | | | | [address] | | | | | | [phone] | | | +--------+---------+ + + + [...] Duque MD PLASTIC AND RECONSTRUCTIVE SURGERY AT [place] [address] Mail Code: [address] [address] eCorrie perry MD - 6:32 [...] | | | | | | [place] [address] | | +--------+ + + + + documented as of this encounter Visit Diagnoses + + | Diagnosis | + + | Lipodystrophy | + + documented in this encounter
--- OUTSIDE RECORDS SUMMARY | ~2019-08-23 | XMS | Encounter Summary ---
Demographics + + + | Address | [address] | | | [place] [address] | + + + | Home Phone [...] Author | [facility] | | | and Jadenana | + + + | Organization | [facility] | [...] | | | | | [place] [address] | | + + + + + Care Team Providers + +------+ + | Care Rn Outpatient Surgery Name | Role | Phone | + +------+ + | Lexie Cagle | PCP | | | TISSUE SPECIALIST | | | + +------+ + Reason for Visit +---------+ + | Reason | Comments | +---------+ + | Results | | +---------+ + Encounter Details +--------+ + + + + | Date | Type | Department | Care Team | Description | +--------+ + + + + | 02/06/ | Telephone | [facility] | Lexie Cagle | Results | | 2019 | | MEDICINE [address] | [address] | | | | | [address] | [address] [facility] | | | | | [place] [address] | [place] [address] | | | | | [phone] | [phone] | | | | | | | [...] 2020 | Visit | | [address] | | | | | | [place] | | | | | | [id number] | | | | | | | | +--------+---------+ + + + documented as of this encounter Visit Diagnoses Not on filedocumented in this encounter"
--- OUTSIDE RECORDS SUMMARY | ~2019-08-23 | XMS | Encounter Summary ---
Demographics + + + | Address | [address] | | | [place] [address] | + + + | Home Phone [...] + | Author | [facility] | | | and Jadenana | + + + | Organization | [facility] | [...] | | | | | [place] [address] | | + + + + + Care Team Providers + +------+ + | Care Auto Damage Insurance Appraiser Name | Role | Phone | + [...] | | | [address] [place] | [place] [address] | | | | | [place] [address] | | | | | | [phone] | | | +--------+ + + + [...]
--- OUTSIDE RECORDS SUMMARY | ~2019-08-23 | XMS | Encounter Summary ---
Demographics + + + | Address | [address] | | | [place] [address] | + + + | Home Phone | | + + + | Preferred Language | Unknown | + + + | Marital Status | Single | + + + | Advent Affiliation | HINDU | + + + [...] Team Providers + +------+ + | Care Marine Engine Driver Name | Role | Phone | [...] as of this encounter Progress Notes Interface, Waste Collection Driver In - 10/10/2005 1:[address] [place] [facility] [place] [address] [place], [place] [address] or April 18, 2002 Patrick Stern D.O. [facility] [address] [place], [place] [address] RE: MIAN MARQUEZ MR #: [id number] Dear Gustavo: Thank you very much for [...] you are doing well and that the [place] obesity surgery moratorium has not affected you too much. If you are indeed looking for 2 partners, things must really actually be doing great for you. I hope that we can continue to grow closer in the future. Again, thank you for the referral. Yours truly, Colin Posada M.D. mid level project manager SHAWN / VICTOR M [id number] / [id number] / [id number] / Tdocumented in this encounter Plan of Treatment +--------+ + + + + | Date | Type | Specialty | Care Team | Description | +--------+ + + + + | 10/31/ | Appointment | Hematology & | Onc, Gen [address] | | | 2020 | | Oncology | [place], | | | | | | [place] [address] | | +--------+ + + + + documented as of this encounter Visit Diagnoses Not on filedocumented in this encounter"
--- OUTSIDE RECORDS SUMMARY | ~2019-08-23 | XMS | Encounter Summary ---
Demographics + + + | Address | [address] | | | [place] [address] | + + + | Home Phone | | + + + | Preferred Language | Unknown | + + + | Marital Status | Single | + + + | Temple Affiliation | YAZIDI | + + + [...] Team Providers + +------+ + | Care Hat Lining Blocker Name | Role | Phone | + +------+ + | Trevin Delacruz MD | PCP | | + +------+ + Reason for Visit + + + | Reason | Comments | + + + | Follow-up visit | 2 wk f/u OP 03/03 Panniculectomy ,new concern: NONE | + + + Consultation (Routine) +--------+--------+ [...] | | | | | Abdominal | [place], [place] | Mailcode: | | | | | pannus | [address] | [facility] | | | | | Excess skin | | for Health | | | | | | | and Healing, | | | | | PANNICULECTO | | Building 1, | | | | | MY | | 5th Floor | | | | | Procedures | | [place], [place] | | | | | CONSULT TO | | [address] | | | | | SURGERY - | | Phone: | | | | | PLASTICS | | [phone] | +--------+--------+ + + + + Encounter Details +--------+---------+ + + + | Date | Type | Department | Care Team | Description | +--------+---------+ + + + | 04/06/ | Office | Plastic and | Neto Lockhart, | Intertriginous | | 2016 | Visit | Reconstructive | MD [place] MERCADO Srikanth | candidiasis (Primary | | | | Surgery at [facility] [address] | Dx); Lipodystrophy | | | | [address] | [place], [place] | | | | | Mailcode: [facility] | [address] | | | | | [facility] | [phone] | | | | | and Healing, | | | | | | [facility] | | | | | | Floor [place], [place] | | | | | | [address] | | | | | | [phone] | | | +--------+---------+ + + + [...] + + + | Blood Pressure | 142/87 | 04/06/2015 12:11 PM | | | | | PST | | + + + + + | Pulse | 66 | 04/06/2015 12:11 PM | | | | | PST | | + + + + + | Temperature | 36.9 C (98.4 F) | 04/06/2015 12:11 PM | | | | | PST | | + + + + + | Respiratory Rate | 20 | 04/06/2015 12:11 PM | | | | | PST | | + + + + + | Oxygen Saturation | 100% | 04/06/2015 12:11 PM | | | | | PST | | + + + + + | Inhaled Oxygen | - | - | | | Concentration | | | | + + + + + | Weight | 88.7 kg (195 lb 8 | 04/06/2015 12:11 PM | | | | oz) | PST | | + + + + + | Height | 175.3 cm (5' 9") | 04/06/2015 12:11 PM | | | | | PST | | + + + + + | Body Mass Index | 28.87 | 04/06/2015 12:11 PM | | | | | PST | | + + + + + documented in this encounter Patient Instructions Patient Instructions Neto Lockhart MD - 04/06/2015 8:36 PM PST Continue to wear compr ession garment for a total of at least 6 weeks but recommend 3 months after surgery. Follow-up in 6 weeks for wound check. Recommend vaseline or skin lotion for the itchiness. Your dry skin is the cause of the itchiness. documented in this encounter Progress Notes Neto Lockhart MD - 04/06/2015 8:32 PM PST PLASTIC SURGERY POSTOPERATIVE NOTE Procedure: status post panniculectomy on 03/03/15 Patient reports doing well. Complained of itchiness along his incisions. Denied any fever or chills. Physical Exam: Last Vitals: BP 142/87 | Pulse 66 | Temp (Src) 36.9 C (98.4 F) (Oral) | RR 20 | Ht 1.75 3 m (5' 9") | Wt 88.678 kg (195 lb 8 oz) | SpO2 100% | BMI 28.86 kg/(m^2) Abdominal incision healing well No gross hematoma or seroma No erythema along the incision or abdominal wall rashes Assessment and Plan: Mian Marquez is a 65 y.o. male s/p panniculectomy, doing well. Continue to wear compression garment for a total of at least 6 weeks but recommend 3 mon ths. Sutures - some were removed in clinic today Follow-up in 6 weeks for wound check. Recommend vaseline or skin lotion for the itchiness. His dry skin is the cause of the i tchiness. Department of Plastic Surgery [facility] 04/06/2015 documented in this en counter Plan of Treatment +--------+ + + + + | Date | Type | Specialty | Care Team | Description | +--------+ + + + + | 10/31/ | Appointment | Hematology & | Onc, Gen [address] | | | 2020 | | Oncology | [place], | | | | | | [place] [address] | | +--------+ + + + + documented as of this encounter Visit Diagnoses + + | Diagnosis | + + | Intertriginous candidiasis - Primary Candidiasis of skin and nails | + + | Lipodystrophy | + + documented in this encounter
--- OUTSIDE RECORDS SUMMARY | ~2019-08-23 | XMS | Encounter Summary ---
Demographics + + + | Address | [address] | | | [place] [address] | + + + | Home Phone | | + + + | Preferred Language | Unknown | + + + | Marital Status | Single | + + + | Sabianism Affiliation | YAZIDISM | + + + [...] Team Providers + +------+ + | Care Engineering Design Manager Name | Role | Phone | [...] as of this encounter Discharge Summaries Interface, Solutions Executive Cloud Sales In - 10/23/2005 3:[address] [address] [facility] MEDICAL SUMMARY OF HOSPITALIZATION Med Rec No: [...] previously evaluated by Dr. Gustavo Stern of [facility] but was transferred for insurance issues. The [...] Colin Posada M.D. Attending Physician [id number] P [id number] signed by Stacy, Solutions Executive Cloud Sales In at 10/23/2005 3:09 AM [facility] umented in this encounter Plan of Treatment +--------+ + + + + | Date | Type | Specialty | Care Team | Description | +--------+ + + + + | 10/31/ | Appointment | Hematology & | Onc, Gen [address] | | | 2020 | | Oncology | [place], | | | | | | [place] [address] | | +--------+ + + + + documented as of this encounter Visit Diagnoses Not on filedocumented in this encounter
--- OUTSIDE RECORDS SUMMARY | ~2019-08-23 | XMS | Encounter Summary ---
Demographics + + + | Address | [address] | | | [place] [address] | + + + | Home Phone | | + + + | Preferred Language | Unknown | + + + | Marital Status | Single | + + + | Mu-Ism Affiliation | SABIANISM | + + + [...] Team Providers + +------+ + | Care Stemhole Borer And Topper Name | Role | Phone | + [...] [facility] | | | | | [facility] | [address] | | | | | Hospital Admitting | [place], [place] | | | | | Desk Located on the | [address] | | | | | 9th floor | [phone] | | | | | [facility] [place] | | | | | | [address] | Jesse Cordero, | | | | | | VASCULAR SURGEON [address] | | | | | | [address] | | | | | | [place], [place] | | | | | | [address] | | | | | | [phone] | | | | | | | [...] eral | Positive; 03/03/15; 1222 | Chris Ambrosoi RN | Manju Morales RN | | [...] | | | | | | [place] [address] | | +--------+ + + + + [...]
--- OUTSIDE RECORDS SUMMARY | ~2019-08-23 | XMS | Encounter Summary ---
Demographics + + + | Address | [address] | | | [place] [address] | + + + | Home Phone | | + + + | Preferred Language | Unknown | + + + | Marital Status | Single | + + + | Holiness Affiliation | CONGREGATIONAL | + + + | Race | [...] Team Providers + +------+ + | Care Deboning Team Leader Name | Role | Phone | + +------+ + | Jose Hameed MD | PCP | | + +------+ + Encounter Details +--------+---------+ + + + | Date | Type | Department | Care Team | Description | +--------+---------+ + + + | 07/25/ | Office | Neurology at | Christian Maldonado MD | Multiple sclerosis | | 2019 | Visit | [facility] & | [address] | ([facility]) (Primary Dx); | | | | Healing [address] | Eduarda [place], | Vitamin B12 | | | | Ave Mailcode: CH8C | [place] [address] | deficiency; Vitamin | | | | Flanagan for [facility] | [phone] | D deficiency; | | | | and Healing, | | Persistent | | | | Building | | depressive disorder | | | | Floor [place], [place] | | | | | | [address] | | | | | | [phone] | | | +--------+---------+ + + + [...] and ask for the 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 1989, [facility] documented in this encounter Progress Notes Christian Maldonado MD - 07/25/2018 9:10 AM PDT [facility] Medical Problems 1. Multiple sclerosis Avonex 9872-1210 (treatment for 2 years) Rebif for 2.5 [...] replaced with paddles and non- rechargeable battery ([employer] stimulator) in spring 2016. Battery replaced with [...] feel he can do this living in [place]. He has no other complaints today. Current Outpatient Prescriptions Medication Sig Cholecalciferol, Vitamin D3, (VITAMIN D3) 5,000 unit oral tablet Take 5,000 Units by [facility] once daily. cyanocobalamin 1,000 mcg/mL injection solution [...] all 4 extremities. Cerebellar testing shows slowed rqtjda-aq-jnno. Gait: Antalgic casual gait, very difficult to [...] CLINIC Medical Problems 1. Multiple sclerosis Avonex 4184-4037 (treatment for 2 years) Rebif for 2.5 [...] replaced with paddles and non- rechargeable battery ([employer] stimulator) in spring 2016. Battery replaced with MRI compatible battery Dec 2017 per patient report. 9. CHRISTEN 10.s/p Right SI joint fusion Dec 2017. 11. Suprapubic catheter placed 04/2018 INTERVAL HISTORY: Mr. Marquez [facility] for follow up. He reports he had [...] feel he can do this living in [place]. Current Outpatient Prescriptions Medication Sig Cholecalciferol, Vitamin D3, (VITAMIN D3) 5,000 unit oral tablet Take 5,000 Units by [facility] once daily. cyanocobalamin 1,000 mcg/mL injection solution [...] 4 extremities. Cerebellar te sting shows slowed [id number]-az-jltf. Gait: Antalgic casual gait, very difficult to [...] would like to have this done bef [employer] moving in 2 weeks. He will continue [...] | | | | | | [place] [address] | | +--------+ + + + + [...]
--- OUTSIDE RECORDS SUMMARY | ~2019-08-23 | XMS | Encounter Summary ---
Demographics + + + | Address | [address] | | | [place] [address] | + + + | Home Phone | | + + + | Preferred Language | Unknown | + + + | Marital Status | Single | + + + | Advent Affiliation | MORMON | + + + [...] Team Providers + +------+ + | Care Court Orderly Name | Role | Phone | + [...] | | | [address] [place] | | | | | Reji Mailcode: | [place] [address] | | | | | [id number] | [phone] | | | | | Clinic Building | | | | | | [place] | | | | | | [address] | | | | | | [phone] | | | +--------+ + + + [...] | | | | | | [place] [address] | | +--------+ + + + + [...] | | | | | | and K3vaijurga brain | | | | | | [...] | | + +---------+ + + | [facility] DEPARTMENT OF | | | | | RADIOLOGY | | | | + +---------+ + + documented in this encounter Visit Diagnoses Not on filedocumented in this encounter"
--- OUTSIDE RECORDS SUMMARY | ~2019-08-23 | XMS | Encounter Summary ---
Demographics + + + | Address | [address] | | | [place] [address] | + + + | Home Phone | | + + + | Preferred Language | Unknown | + + + | Marital Status | Single | + + + | Muslim Affiliation | SCIENTOLOGY | + + + [...] Team Providers + +------+ + | Care Restaurant Cook Name | Role | Phone | [...] | | bypass | | | | [place], [place] | | | | | | [address] | | | | | | [phone] | | | +--------+------+ + + + [...] | | | | | | [place] [address] | | +--------+ + + + + [...] [facility] | [address] | [place] [address] | | | SERVICES, CORE | EULALIA [...] | + + + + + | [facility] | [address] | [place] [address] | | | SERVICES, SPECIAL | PARK [...] + + | [facility] | [address] | [place] [address] | | | SERVICES, SPECIAL | EULALIA [...] | | | | | S S U-O-E +P.P | | | | | | [...] | | | | | Fabi Alfonso, [facility] | | | | | | [address] | | | | | | [phone] | | | | | | Quoc [...] [facility] | [address] | [place], [place] | | | [facility] | | [address] | | + + + + + documented in this encounter Visit Diagnoses + + | Diagnosis | + + | LAP-BAND surgery status Bariatric surgery status | + + | History of Benito-en-Y gastric bypass Bariatric surgery status | + + documented in this encounter"
--- OUTSIDE RECORDS SUMMARY | ~2019-08-23 | XMS | Encounter Summary ---
Demographics + + + | Address | [address] | | | [place] [address] | + + + | Home Phone | | + + + | Preferred Language | Unknown | + + + | Marital Status | Single | + + + | Moravian Affiliation | JEWISH | + + + [...] Team Providers + +------+ + | Care Applied Behavior Science Specialist Name | Role | Phone | [...] + + | 06/05/ | Hospital | [facility] | A, [address] | | | 2019 | Encounter | Clinics at S | [address] [place], | | | | | [facility] | [place] [address] | | | | | for Health and | | | | | | Healing [address] | | | | | | [place], [place] | | | | | | [address] | | | | | | [phone] | | | +--------+ + + + [...] 2019 | | Oncology | [address] [place], | | | | | | [place] [address] | | +--------+ + + + + [...] | if patient does not have a auto parts delivery driver | | | | | | [...]
--- OUTSIDE RECORDS SUMMARY | ~2019-08-23 | XMS | Encounter Summary ---
Demographics + + + | Address | [address] | | | [place] [address] | + + + | Home Phone | | + + + | Preferred Language | Unknown | + + + | Marital Status | Single | + + + | Rastafari Affiliation | MORMON | + + + [...] Providers + +------+ + | Care Strategic Planning Director Name | Role | Phone | [...] | | | | | Abdominal | [place], [place] | Mailcode: | | | | | pannus | [address] | [address] Center | | | | | Excess skin | | for Health | | | | | | | and Healing, | | | | | PANNICULECTO | | Building 1, | | | | | MY | | 5th Floor | | | | | Procedures | | [place], [place] | | | | | CONSULT TO | | [address] | | | | | SURGERY - | | Phone: | | | | | PLASTICS | | [phone] | +--------+--------+ + + + + Reason [...] | | painful at | | [facility] [address] | | | | | port site | | [address] | | | | | lap band | | Mailcode: | | | | | after RYGB | | [facility] | | | | | Shobha [address] | | Health and | | | | | | | Healing, | | | | | | | Building 2 | | | | | | | [place], [place] | | | | | | | [address] | | | | | | | Phone: | | | | | | | | | | | | | | Fax: | | | | | | | [phone] | +--------+--------+ + + + + Encounter [...] 2 | | | | | | [facility] [place] | | | | | | [address] | | | | | | | [...] with poor reflexes - baseline per pt. [place] antalgic w david cane. Meds: Current Inpatient [...] of excision EMILIE OTERO MD CHIEF, BARIATRIC [facility] DIGESTIVE [facility] 6TH FLOOR [address] Mailcode: [place] [address] Emilie Medellin MD - 11/13/2014 10:09 AM [...] of panniculectomy. EMILIE OTERO MD CHIEF, BARIATRIC [facility] 6TH FLOOR [address] Mailcode: [place] [address] Eden Beckford - 10/26 9:03 AM PDT [...] with poor reflexes - baseline per pt. [place] antalgic w ith cane. Meds: Current Inpatient [...] consideration of excision Eden Gurrola, MS4 Pager: [phone] I have personally seen, interviewed and examined the patient and agree with Ms. Gurrola's not e. Please see my note as documented above. EMILIE OTERO MD CHIEF, BARIATRIC SERVICES [facility] 6TH FLOOR [address] Mailcode: [place] [address] documented in this en counter Plan of Treatment +--------+ + + + + | Date | Type | Specialty | Care Team | Description | +--------+ + + + + | 10/31/ | Appointment | Hematology & | Onc, Gen [address] | | | 2020 | | Oncology | [place], | | | | | | [place] [address] | | +--------+ + + + + documented as of this encounter Visit Diagnoses + + | Diagnosis | + + | S/P bariatric surgery - Primary Bariatric surgery status | + + | Abdominal pannus Localized adiposity | + + | Excess skin | + + documented in this encounter
--- OUTSIDE RECORDS SUMMARY | ~2019-08-23 | XMS | Encounter Summary ---
Demographics + + + | Address | [address] | | | [place] [address] | + + + | Home Phone [...] + | Author | [facility] | | | and Jadenana | + + + | Organization | [facility] [...] | | | | | [place] [address] | | + + + + + Care Team Providers + +------+ + | Care Transportation Maintenance Worker Name | Role | Phone | + +------+ + | Lexie Cagle | PCP | | | DOOR WORKER | | | + +------+ + Encounter [...] | | | [address] | [place] [address] | | | | | [facility] [place] [address] | | | | | | [phone] | | | +--------+ + + + [...] [place] | | | | | | [address] | | | | | | | [...]
--- OUTSIDE RECORDS SUMMARY | ~2019-08-23 | XMS | Encounter Summary ---
Demographics + + + | Address | [address] | | | [place] [address] | + + + | Home Phone | | + + + | Preferred Language | Unknown | + + + | Marital Status | Single | + + + | Protestant Affiliation | PENTECOSTAL | + + + [...] Team Providers + +------+ + | Care Home Restoration Service Supervisor Name | Role | Phone | [...] | | | | | sclerosis | [address] | | | | | | ([facility]) | Nate | | | | | | Mounika | [address] | | | | | | of [facility] | [place], [place] | | | | | | disturbance | [address] | | | | | | Procedures | Phone: | | | | | | MRI BRAIN | [phone] | | | | | | MULTIPLE | Fax: | | | | | | SCLEROSIS | [phone] | | | | | | WWO CONTRAST | | | +--------+--------+ + + + + Encounter Details +--------+ + + + + | Date | Type | Department | Care Team | Description | +--------+ + + + + | 01/05/ | Hospital | Diagnostic Imaging | | | | 2016 | Encounter | Services at [facility] | | | | | | [address] | | | | | | [address] [place] | | | | | | [facility] | | | | | | [place], [place] | | | | | | [address] | | | | | | [phone] | | | +--------+ + + + [...] | | | | | | [place] [address] | | +--------+ + + + + [...] WWO | e | 8:36 AM | ([facility]) Complaints | procedure are in the [...] + + + | TERRELL DECKER | [address] | [place], [place] | | | [facility] | [facility] | [address] | | | TESTS | | | | + + + + + documented in this encounter Visit Diagnoses Not on filedocumented in this encounter"
--- OUTSIDE RECORDS SUMMARY | ~2019-08-23 | XMS | Encounter Summary ---
Demographics + + + | Address | [address] | | | [place] [address] | + + + | Home Phone [...] Author | [facility] | | | and Jadenana | + + + | Organization | [facility] | | [...] | | | | | [place] [address] | | + + + + + Care Team Providers + +------+ + | Care Manufacture Specialist Name | Role | Phone | [...] Frank RN | | | | | [place], [place] | | | | | | [address] | | | | | | [phone] | | | +--------+ + + + [...] [place] | | | | | | [address] | | | | | | | | +--------+---------+ + + + documented as of this encounter Visit Diagnoses Not on filedocumented in this encounter"
--- OUTSIDE RECORDS SUMMARY | ~2019-08-23 | XMS | Encounter Summary ---
Demographics + + + | Address | [address] | | | [place] [address] | + + + | Home Phone | | + + + | Preferred Language | Unknown | + + + | Marital Status | Single | + + + | Episcopal Affiliation | CONFUCIANIST | + + + [...] Team Providers + +------+ + | Care Acid Tank Cleaner Name | Role | Phone | [...] as of this encounter Progress Notes Interface, Transit Mixer Operator In - 02/06/2006 5:01 AM PSTCLINIC DATE: [...] months. Trevin Brown M.D. ML / [place] [id number] / [id number] / [id number] / [id number] signed by Stacy, Transit Mixer Operator In at 02/06/2006 5:01 AM Princess dorsey [...] | | | | | | [place] [address] | | +--------+ + + + + documented as of this encounter Visit Diagnoses Not on filedocumented in this encounter"
--- OUTSIDE RECORDS SUMMARY | ~2019-08-23 | XMS | Encounter Summary ---
Demographics + + + | Address | [address] | | | [place] [address] | + + + | Home Phone [...] + | Author | [facility] | | | and Jadenana | + + + | Organization | [facility] | | | and Jadenana [...] | | | | | [place] [address] | | + + + + + Care Team Providers + +------+ + | Care Dishwasher Preparer Name | Role | Phone | + +------+ + | Lexie Cagle | PCP | | | IRRIGATION INSTALLATION SPECIALIST | | | + +------+ + [...] [place] | | | | | [address] | [address] | | | | | [phone] | | | +--------+ + + + [...] 2020 | Visit | | [address] | | | | | | PRECIOUS [place] | | | | | | [id number] | | | | | | | | +--------+---------+ + + + documented as of this encounter Visit Diagnoses Not on filedocumented in this encounter"
--- OUTSIDE RECORDS SUMMARY | ~2019-08-23 | XMS | Encounter Summary ---
Demographics + + + | Address | [address] | | | [place] [address] | + + + | Home Phone | | + + + | Preferred Language | Unknown | + + + | Marital Status | Single | + + + | Mandaen Affiliation | JEHOVAH'S WITNESS | + + [...] Team Providers + +------+ + | Care Disassembler Name | Role | Phone | + [...] | | sclerosis | MD Patrick | [address] | | | | | Procedures | [address] | for Health | | | | | [place] | Ave | and Healing | | | | | UNCLASSIFIED | [place], [place] | [address] | | | | | DRUGS [place] | [address] | Ave | | | | | BIOLOGICALS | Phone: | [place], [place] | | | | | [place] | [phone] | [address] | | | | | THR/PRPH/DX | Fax: | Phone: | | | | | IV INF,IN | [phone] | [phone] | | | | | [place] | | Fax: | | | | | THER/PROPH/D | | [phone] | | | | | IAG IV | | | +--------+--------+ + + + + Encounter Details +--------+ + + + + | Date | Type | Department | Care Team | Description | +--------+ + + + + | 11/17/ | Hospital | [facility] | Nurse2, Hem [address] | | | 2017 | Encounter | Clinics at S | [address] | | | | | [facility] | [place] [address] | | | | | for Health and | Chr9, Hem [address] | | | | | Healing [address] | [address] [place], | | | | | Ave [place], [place] | [place] [address] | | | | | [address] | | | | | | [phone] | | | +--------+ + + + [...] | | | | | | [place] [address] | | +--------+ + + + + [...] 9:14 | | | | | dose, [facility] 11/17/16 at 0915 | | AM PDT [...] | if patient does not have a local tanker truck driver | | | | | [...]
--- OUTSIDE RECORDS SUMMARY | ~2019-08-23 | XMS | Encounter Summary ---
Demographics + + + | Address | [address] | | | [place] [address] | + + + | Home Phone | | + + + | Preferred Language | Unknown | + + + | Marital Status | Single | + + + | Samaritan Affiliation | SABIANIST | + + + [...] Team Providers + +------+ + | Care Information Security Engineer Name | Role | Phone | [...] | | | | | sclerosis | [address] | | | | | | ([facility]) | Nate | | | | | | Mounika | [address] | | | | | | of [facility] | [place], [place] | | | | | | disturbance | [address] | | | | | | Procedures | Phone: | | | | | | MRI BRAIN | [phone] | | | | | | MULTIPLE | Fax: | | | | | | SCLEROSIS | [phone] | | | | | | WWO [...] | Complaints | [address] | [address] [place], | | | | | of memory | [place], [place] | [place] | | | | | disturbance | [address] | [address] | | | | | Depression, | Phone: | Phone: | | | | | unspecified | [phone] | [phone] | | | | | depression | Fax: | Fax: | | | | | type | [phone] | [phone] | | | | | Procedures | [...] | Multiple | Epic Dept | Center [facility] | | | | | sclerosis | | [address] | | | | | [...] | | | | | | [facility] [place] | | | | | | | [address] | | | | | | | Phone: | | | | | | | [phone] | | | | | | | Fax: | | | | | | | [phone] | +--------+--------+ + + + + Encounter Details +--------+---------+ + + + | Date | Type | Department | Care Team | Description | +--------+---------+ + + + | 12/28/ | Office | Neurology at | Christian Maldonado MD | Multiple sclerosis | | 2016 | Visit | [facility] & | [address] [facility] | ([facility]) (Primary Dx); | | | | Healing [address] | [address] [place], | Complaints of memory | | | | Ave Mailcode: CH8C | [place] [address] | disturbance; | | | | [facility] | [phone] | Depression, | | | | and Healing, | | unspecified | | | | Building | | depression type; CHRISTEN | | | | Floor [place], [place] | | on CPAP | | | | [address] | | | | | | [phone] | | | +--------+---------+ + + + [...] CLINIC Medical Problems 1. Multiple sclerosis Avonex [id number] (treatment for 2 years) Rebif for 2.5 [...] with pa ddles and non- rechargeable battery ([employer] stimulator). 9. CHRISTEN INTERVAL HISTORY: Mr. Marquez [...] all 4 extremities. Cerebellar testing shows slowed [id number]. Ga it: Walks with aid today due [...] 2019 | | Oncology | Martín Fitzpatrick [place], | | | | | | [place] [address] | | +--------+ + + + + [...] of | | | | | | [id number] is | | | | | | evident. There is no | | | | | | abnormal intracranial | | | | | | enhancement. | | | | | | [id number] within | | | | | | [...]
--- OUTSIDE RECORDS SUMMARY | ~2019-08-23 | XMS | Encounter Summary ---
Demographics + + + | Address | [address] | | | [place] [address] | + + + | Home Phone [...] | Author | [facility] | | | and Jadenana | + + + | Organization | [facility] | | | and Jadenana | [...] | | | | | [place] [address] | | + + + + + Care Team Providers + +------+ + | Care Scientific Publications Editor Name | Role | Phone | + +------+ + | Lexie Cagle | PCP | | | RIBBON INKER | | | + +------+ + Reason for Visit +--------+ + | Reason | Comments | +--------+ + | Other | protime | +--------+ + Encounter Details +--------+ + + + + | Date | Type | Department | Care Team | Description | +--------+ + + + + | 01/10/ | Telephone | [facility] | Lexie Cagle | Other (protime) | | 2019 | | MEDICINE [address] | [address] | | | | | Street [address] | [facility] | | | | | [place] [address] | [place] [address] | | | | | [phone] | [phone] | | | | | | | [...] [place] | | | | | | [address] | | | | | | | | +--------+---------+ + + + documented as of this encounter Visit Diagnoses Not on filedocumented in this encounter"
--- OUTSIDE RECORDS SUMMARY | ~2019-08-23 | XMS | Encounter Summary ---
Demographics + + + | Address | [address] | | | [place] [address] | + + + | Home Phone [...] | Author | [facility] | | | and Jadenana | + + + | Organization | [facility] | | [...] | | | | | [place] [address] | | + + + + + Care Team Providers + +------+ + | Care Auto Body Straightener Name | Role | Phone | + +------+ + | Lexie Cagle | PCP | | | INDUSTRIAL RELATIONS COMMISSIONER | | | + +------+ + Reason [...] right lower | [place], | [address] | | | | | extremity | INDUSTRIAL RELATIONS COMMISSIONER [address] | [place], | | | | | Paroxysmal | [address] | [place] | | | | | atrial | [place], | [address] | | | | | fibrillation | [place] [address] | Phone: | | | | | ([facility]) | Phone: | [phone] | | | | | Procedures | [phone] | Fax: | | | | | VAS Lower | Fax: | [phone] | | | | | Extremity | [phone] | | | | | | Venous [...] | | | | | sleep | INDUSTRIAL RELATIONS COMMISSIONER [address] | [address] | | | | | apnea) | [address] | [place], | | | | | | [place], | [place] [address] | | | | | | [place] [address] | Phone: | | | | | | Phone: | [phone] | | | | | | [phone] | Fax: | | | | | | Fax: | [phone] | | | | | | [phone] | | +--------+ + + + + [...] + | 09/12/ | Office | [facility] | Lexie Cagle | Chronic fatigue | | 2019 | Visit | MEDICINE [address] | [address] | disorder (Primary | | | | Street [place] | [address] [place] | Dx); Persistent | | | | [place] [address] | [place] [address] | depressive disorder; | | | | [phone] | [phone] | Vitamin D | | | | [...] catheter placement; Surgeon: Michael Fernandes MD; Location: [facility] MAIN OR CHOLECYCTOSTOMY CYSTOSCOPY N/A 04/19/2018 Procedure: Cystoscopy, bladder Botox, injection of urethral bulking agent; Surgeon: Gina Fernandes MD; Location: [facility] MAIN OR GASTRIC BYPASS SURGERY 2001 [...] this patient today. > 50% of time industrial relations counselor ing regarding the listed conditions, options for treatment, and possible risks, and coordina ting care. Please see assessment and plan for further details Lexie Cagle, DNP, INDUSTRIAL RELATIONS COMMISSIONER, AGNP-C Addendum: received call report on US from analisa Da Silva. US positive for nonocclusive thrombu s of [...] discontinued about 3 months ago by his christian counselor. Pt was provided with #48 caps of [...] [place] | | | | | | [address] | | | | | | | [...] | | the ordering provider, by the turner off, immediately following the | | | exam. [...] to the ordering provider, by the | |turner off, immediately following the exam. | | | [...]
--- OUTSIDE RECORDS SUMMARY | ~2019-08-23 | XMS | Encounter Summary ---
Demographics + + + | Address | [address] | | | [place] [address] | + + + | Home Phone [...] Author | [facility] | | | and Jadenana | + + + | Organization | [facility] | | | [...] | | | | | [place] [address] | | + + + + + Care Team Providers + +------+ + | Care Commercial Artist Lettering Name | Role | Phone | + +------+ + | Lexie Cagle | PCP | | | INFORMATION SYSTEMS OPERATOR | | | + +------+ + Reason for Visit +--------+ + | Reason | Comments | +--------+ + | Pain | | +--------+ + Encounter Details +--------+ + + + + | Date | Type | Department | Care Team | Description | +--------+ + + + + | 02/01/ | Telephone | [facility] | Lexie Cagle | Pain | | 2019 | | MEDICINE [address] | [address] | | | | | Street [place] | [facility] | | | | | [place] [address] | [place] [address] | | | | | [phone] | [phone] | | | | | | | [...] 2020 | Visit | | [address] | | | | | | [place]CI[place] | | | | | | [id number] | | | | | | | | +--------+---------+ + + + documented as of this encounter Visit Diagnoses Not on filedocumented in this encounter"
--- OUTSIDE RECORDS SUMMARY | ~2019-08-23 | XMS | Encounter Summary ---
Demographics + + + | Address | [address] | | | [place] [address] | + + + | Home Phone [...] Author | [facility] | | | and Jadenana | + + + | Organization | [facility] | | | and [place]aden[place] [...] | | | | | [place] [address] | | + + + + + Care Team Providers + +------+ + | Care Manager Of Tax Name | Role | Phone | + [...] [place] | | | | | [address] | [address] | | | | | [phone] | | | +--------+ + + + [...] 2020 | Visit | | [address] | | | | | | [place] | | | | | | [address] | | | | | | | | +--------+---------+ + + + documented as of this encounter Visit Diagnoses Not on filedocumented in this encounter"
--- OUTSIDE RECORDS SUMMARY | ~2019-08-23 | XMS | Encounter Summary ---
Demographics + + + | Address | [address] | | | [place] [address] | + + + | Home Phone [...] Author | [facility] | | | and Jadenana | + + + | Organization | [facility] | | [...] | | | | | [place] [address] | | + + + + + Care Team Providers + +------+ + | Care Email Administrator Name | Role | Phone | + +------+ + | Lexie Cagle | PCP | | | [employer] | | | + +------+ + Reason for Visit + + + | Reason | Comments | + + + | Follow-up | Pyuria and Neurogenic Bladder | + + + Encounter Details +--------+---------+ + + + | Date | Type | Department | Care Team | Description | +--------+---------+ + + + | 07/18/ | Office | [facility] | Michael Fernandes | Neurogenic bladder | | 2019 | Visit | [address] | MD Yaw [address] | (Primary Dx); Urge | | | | PRECIOUS [place] | AVE [place] | incontinence | | | | [address] | [address] | | | | | [phone] | | | +--------+---------+ + + + [...] + + + | Blood Pressure | 124/74 | 07/18/2018 2:13 PM | | | | | PDT | | + + + + + | Pulse | 70 | 07/18/2018 2:13 PM | | | | | PDT | | + + + + + | Temperature | - | - | | + + + + + | Respiratory Rate | 16 | 07/18/2018 2:13 PM | | | | | PDT | | + + + + + | Oxygen Saturation | - | - | | + + + + + | Inhaled Oxygen | - | - | | | Concentration | | | | + + + + + | Weight | 92.1 kg (203 lb 0.7 | 07/18/2018 2:13 PM | | | | oz) | PDT | | + + + + + | Height | 177.8 cm (5' 10") | 07/18/2018 2:13 PM | | | | | PDT | | + + + + + | Body Mass Index | 29.13 | 07/18/2018 2:13 PM | | | | | PDT | | + + + + + documented in this encounter Progress Michael Doyle MD - 07/18/2018 2:30 PM PDTFormatting of this note might be differ ent from the original. Chief Complaint Patient presents with Follow-up Pyuria and Neurogenic Bladder HPI Mian Marquez is a 68 y.o. male patient of Lexie Cagle APRN here today for a follow u p for neurogenic bladder. 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 He presents today for his tube change. Patient denies any significant problems associated with the procedure. Does complain of ur ine leakage however he is unclear if this is leaking around the suprapubic tube site or from the penis. Denies any fever chills or flulike symptoms. He denies significant abdominal pain. The patient's suprapubic tube was removed. Betadine was then placed around the insertion s ite. Using sterile technique a new 16 Mauritanian [place] catheter was placed through the suprapub ic tube site. 10 mils was instilled in the balloon. The patient tolerated the procedure we ll. Assessment Mian was seen today for follow-up. Diagnoses and all orders for this visit: Neurogenic bladder Other orders - oxybutynin (DITROPAN-XL) 10 MG 24 hr tablet; Take 1 tablet by mouth Daily. Plan Patient to follow-up in 4 to 6 weeks for suprapubic tube change. Impressive discussed ways to prevent urinary incontinence with the suprapubic tube in place . Patient will be restarted on the oxybutynin. We also discussed the importance of making sure the bladder is emptied in a timely fashion meaning making sure that the bag is always l ower than the bladder and that the tubing is not kinked. If urine is allowed to accumulate in the bladder and there is a higher likelihood of leakage. Past Medical History Past Medical History: Diagnosis [...] catheter placement; Surgeon: Michael Fernandes MD; Location: [facility] MAIN OR CHOLECYCTOSTOMY CYSTOSCOPY N/A 04/19/2018 Procedure: Cystoscopy, bladder Botox, injection of urethral bulking agent; Surgeon: Gina Fernandes MD; Location: [facility] MAIN OR GASTRIC BYPASS SURGERY 2002 [...] Sexual activity: Yes Partners: Female control/protection: Condom No Known Allergies Medications: Current Outpatient Medications: cephalexin (KEFLEX) 500 mg capsule, Take 500 mg by mouth., Disp: , Rfl: cholecalciferol (CHOLECALCIFEROL) 5000 units TABS, Take 5,000 Units by mouth Daily., D isp: , Rfl: DULoxetine (CYMBALTA) [address] capsule, Take 90 mg by mouth Daily., Disp: , Rfl: DULoxetine (CYMBALTA) [address] capsule, Take 60 mg by mouth Daily., Disp: , Rfl: oxybutynin (DITROPAN-XL) 10 MG [...] tablet, R fl: 0 ROS Objective BP 124/74 | Pulse 70 | Resp 16 | Ht 1.778 m [...] UA, POC Negative Negative, 100 mg/dL Specific [place], UA, POC 1.020 1.001 - 1.030 Blood, [...] reviewed in clinic today. Return in about 1 month (around 08/15/2018) for nurse visit to change sp tube.. This document was generated in part using voice recognition software. Frequent wrong word or sound-alike substitutions may have occurred due to the inherent limitations of the voice recognition software. Although I have attempted to edit the content, I have not thoroughly proofread this note, and dental practitioner errors are very likely to occur. CC: Lexie Cagle APRN documented in this encounter Plan of Treatment +--------+---------+ + + + | Date | Type | Specialty | Care Team | Description | +--------+---------+ + + + | 11/12/ | Office | Sleep Medicine | Laith Sheffield PA | | | 2019 | Visit | | [address] | | | | | | [place] | | | | | | [id number] | | | | | | | | +--------+---------+ + + + documented as of this encounter Visit Diagnoses + + | Diagnosis | + + | Neurogenic bladder - Primary Neurogenic bladder, NOS | + + | Urge incontinence | + + documented in this encounter
--- OUTSIDE RECORDS SUMMARY | ~2019-08-23 | XMS | Encounter Summary ---
Demographics + + + | Address | [address] | | | [place] [address] | + + + | Home Phone | | + + + | Preferred Language | Unknown | + + + | Marital Status | Single | + + + | Adventist Affiliation | ADVENTIST | + + + [...] Team Providers + +------+ + | Care Crew Chief Name | Role | Phone | + [...] | | | | [id number] | [place], [place] | | | | | [address] | [address] | | | | | [place], [place] | [phone] | | | | | [address] | | | | | | [phone] | | | +--------+ + + + [...] | | | | | | [place] [address] | | +--------+ + + + + [...] + + + + + | [facility] DEPARTMENT OF | [address] | [place] [address] | | | PATHOLOGY | [address] | | | + + + + + | [place] DEPARTMENT OF | [address] | [place] [address] | | | PATHOLOGY | [address] [...] | + + + + + | [facility] | [facility] [address] | [place] [address] | | | PATHOLOGY | [address] | | | + + + + + | [facility] | [facility] | [place] [address] | | | PATHOLOGY | [address] | | | + + + + + documented in this encounter Visit Diagnoses Not on filedocumented in this encounter"
--- OUTSIDE RECORDS SUMMARY | ~2019-08-23 | XMS | Encounter Summary ---
Demographics + + + | Address | [address] | | | [place] [address] | + + + | Home Phone | | + + + | Preferred Language | Unknown | + + + | Marital Status | Single | + + + | Tenriism Affiliation | ORTHODOX | + + + [...] Team Providers + +------+ + | Care Biodiesel Engine Specialist Name | Role | Phone | [...] W | | | | ON | [facility] 4th Floor [address] | [facility] | | | | | [address] | Road [place], [place] | | | | | Mailcode: [place] | [address] | | | | | [facility] | | | | | | and Healing, | | | | | | Building 1,4th Floor | | | | | | [place], [place] | | | | | | [address] | | | | | | [phone] | | | +--------+ + + + [...] | | | | | | [place] [address] | | +--------+ + + + + [...]
--- OUTSIDE RECORDS SUMMARY | ~2019-08-23 | XMS | Encounter Summary ---
Demographics + + + | Address | [address] | | | [place] [address] | + + + | Home Phone [...] Author | [facility] | | | and Jadenana | + + + | Organization | [facility] [...] | | | | | [place] [address] | | + + + + + Care Team Providers + +------+ + | Care Rack Room Worker Name | Role | Phone | + +------+ + | Lexie Cagle | PCP | | | ELECTRONIC ENGINEERING TECHNICIAN | | | + +------+ + [...] + + | 10/30/ | Telephone | [facility] | Lexie Cagle | Medication Question; | | 2018 | | MEDICINE [address] | [address] | Other (returning | | | | Street [address] | [facility] | call) | | | | [place] [address] | [place] [address] | | | | | [phone] | [phone] | | | | | | | [...]
--- OUTSIDE RECORDS SUMMARY | ~2019-08-23 | XMS | Encounter Summary ---
Demographics + + + | Address | [address] | | | [place] [address] | + + + | Home Phone | | + + + | Preferred Language | Unknown | + + + | Marital Status | Single | + + + | Bahai Affiliation | RELIGION | + + + [...] Team Providers + +------+ + | Care Tablet Repair Name | Role | Phone | + [...] Rd | | | | | | [place] [address] | | | | | | [phone] | | | | | | | [...] | | | | | | [place] [address] | | +--------+ + + + + [...] DEPARTMENT OF | [address] | [place] [address] | | | PATHOLOGY | [address] | | | + + + + + | [facility] DEPARTMENT OF | [address] | [place] [address] | | | PATHOLOGY | [address] [...] | + + + + + | [facility] | [address] [facility] | [place] [address] | | | PATHOLOGY | [address] | | | + + + + + | [facility] | [address] | [place] [address] | | | PATHOLOGY | [address] [...] | | + +---------+ + + | [facility] DEPARTMENT OF | | | | | RADIOLOGY | | | | + +---------+ + + documented in this encounter Visit Diagnoses Not on filedocumented in this encounter"
--- OUTSIDE RECORDS SUMMARY | ~2019-08-23 | XMS | Encounter Summary ---
Demographics + + + | Address | [address] | | | [place] [address] | + + + | Home Phone [...] Author | [facility] | | | and Jadenana | + + + | Organization | [facility] | [...] | | | | | [place] [address] | | + + + + + Care Team Providers + +------+ + | Care Distribution Field Technician Name | Role | Phone | + +------+ + | Lexie Cagle | PCP | | | ADMINISTRATIVE ASSISTANT COORDINATOR | | | + +------+ + [...] [place] | | | | | | [address] | | | | | | [phone] | | | +--------+ + + + [...]
--- OUTSIDE RECORDS SUMMARY | ~2019-08-23 | XMS | Encounter Summary ---
Demographics + + + | Address | [address] | | | [place] [address] | + + + | Home Phone [...] + | Author | [facility] | | | and Jadenana | + + + | Organization | [facility] | [...] | | | | | [place] [address] | | + + + + + Care Team Providers + +------+ + | Care Piano Refinisher Name | Role | Phone | + +------+ + | Lexie Cagle | PCP | | | CERTIFIED FIRST ASSISTANT | | | + +------+ + Reason for Visit + + + | Reason | Comments | + + + | Referral | | + + + Encounter Details +--------+ + + + + | Date | Type | Department | Care Team | Description | +--------+ + + + + | 07/12/ | Telephone | [facility] | Lexie Cagle | Referral | | 2019 | | MEDICINE [address] | [address] | | | | | Street [address] | [facility] | | | | | [place] [address] | [place] [address] | | | | | [phone] | [phone] | | | | | | | [...] 2020 | Visit | | [address] | | | | | | [place] | | | | | | [address] | | | | | | | | +--------+---------+ + + + documented as of this encounter Visit Diagnoses Not on filedocumented in this encounter"
--- OUTSIDE RECORDS SUMMARY | ~2019-08-23 | XMS | Encounter Summary ---
Demographics + + + | Address | [address] | | | [place] [address] | + + + | Home Phone | | + + + | Preferred Language | Unknown | + + + | Marital Status | Single | + + + | Lutheran Affiliation | BAHAI | + + + [...] Team Providers + +------+ + | Care Floor Inspector Name | Role | Phone | [...] Rd | | | | | | [place], [place] | | | | | | [address] | | | +--------+ + + + [...] | | | | | | [place] [address] | | +--------+ + + + + documented as of this encounter Visit Diagnoses Not on filedocumented in this encounter"
--- OUTSIDE RECORDS SUMMARY | ~2019-08-23 | XMS | Encounter Summary ---
Demographics + + + | Address | [address] | | | [place] [address] | + + + | Home Phone [...] + | Author | [facility] | | | and Jadenana | + + + | Organization | 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
--- OUTSIDE RECORDS SUMMARY | ~2019-08-23 | XMS | Encounter Summary ---
Demographics + + + | Address | [address] | | | [place] [address] | + + + | Home Phone | | + + + | Preferred Language | Unknown | + + + | Marital Status | Single | + + + | Anglican Affiliation | PROTESTANT | + + + [...] Team Providers + +------+ + | Care Document Imaging Specialist Name | Role | Phone | [...] | | 2014 | | Center at [facility] [address] | ACNP [address] | | | | | [address] | [place], [place] | | | | | Mailcode: [place] | [address] | | | | | for Health and | | | | | | [facility] [address] | | | | | | [place], [place] | | | | | | [address] | | | | | | | [...] | | | | | | [place] [address] | | +--------+ + + + + documented as of this encounter Visit Diagnoses Not on filedocumented in this encounter"
--- OUTSIDE RECORDS SUMMARY | ~2019-08-23 | XMS | Encounter Summary ---
Demographics + + + | Address | [address] | | | [place] [address] | + + + | Home Phone | | + + + | Preferred Language | Unknown | + + + | Marital Status | | + + + | Taoism Affiliation | Unknown | + + + | Race | Unknown | + + + | Ethnic Group | Unknown | + + + Author + + + | Author | [facility] | | | and Jadenana | + + + | Organization | [facility] [...] | | | | | [place] [address] | | + + + + + Care Team Providers + +------+ + | Care Internet Marketing Strategist Name | Role | Phone | + +------+ + | Lexie Cagle | PCP | | | LAYAWAY CLERK | | | + +------+ + Encounter Details +--------+ + + + + | Date | Type | Department | Care Team | Description | +--------+ + + + + | 02/13/ | Anti-coag | [facility] | CagleLexie hankins | | | 2019 | Telephone | MEDICINE [address] | [address] | | | | | [address] [place] | [address] [place] | | | | | [place] [address] | [place] [address] | | | | | [phone] | [phone] | | | | | | | [...] of this encounter Progress Notes Kerline Irizarry Rehanger - 02/13/2019 9:36 AM PSTCalled patient and notified of re sults and medication change. Patient verbalized understanding. Lexie Cheney APRN - 2018 9:36 AM PSTINR 1.5. He should have 5 more days of ABX left (due to complete 02/18). Ad just warfarin to 10 mg x 6 days and 5mg on Mon. Check INR next Monday. Electronically ulysses d by Lexie Cagle APRN at 02/13/2019 10:49 AM PSTdocumented in this encounter Plan of Treatment +--------+---------+ + + + | Date | Type | Specialty | Care Team | Description | +--------+---------+ + + + | 11/12/ | Office | Sleep Medicine | Laith Sheffield PA | | | 2020 | Visit | | [address] | | | | | | [place] | | | | | | [address] | | | | | | | | +--------+---------+ + + + documented as of this encounter Procedures + +--------+ + + + | Procedure Name | Priori | Date/Time | Associated Diagnosis | Comments | | | ty | | | | + +--------+ + + + | EXTERNAL LAB: | Routin | 02/12/2019 | | Results for this | | GLUCOSE | e | | | procedure are in the | | | | | | results section. | + +--------+ + + + | EXTERNAL LAB: | Routin | 02/12/2019 | | Results for this | | CALCIUM | e | | | procedure are in the | | | | | | results section. | + +--------+ + + + | EXTERNAL LAB: | Routin | 02/12/2019 | | Results for this | | POTASSIUM | e | | | procedure are in the | | | | | | results section. | + +--------+ + + + | EXTERNAL LAB: SODIUM | Routin | 02/12/2019 | | Results for this | | | e | | | procedure are in the | | | | | | results section. | + +--------+ + + + | EXTERNAL LAB: CBC | Routin | 02/12/2019 | | Results for this | | | e | | | procedure are in the | | | | | | results section. | + +--------+ + + + | EXTERNAL LAB: | Routin | 02/12/2019 | | Results for this | | PROTIME INR | e | | | procedure are in the | | | | | | results section. | + +--------+ + + + | EXTERNAL LAB: EGFR | Routin | 02/12/2019 | | Results for this | | | e | | | procedure are in the | | | | | | results section. | + +--------+ + + + | EXTERNAL LAB: | Routin | 02/12/2019 | | Results for this | | CREATININE | e | | | procedure are in the | | | | | | results section. | + +--------+ + + + documented in this encounter Results External Lab: CBC (02/12/2019) + +-------+ + + + | Component | Value | Ref Range | Performed | Pathologist | | | | | At | Signature | + +-------+ + + + | WBC, | 6.1 | | | | | External | | | | | + +-------+ + + + | HGB, | 13.9 | | | | | External | | | | | + +-------+ + + + | PLT, | 171 | | | | | External | | | | | + +-------+ + + + | RBC, | 4.27 | | | | | External | | | | | + +-------+ + + + External Lab: eGFR (02/12/2019) + +-------+ + + + | Component | Value | Ref Range | Performed | Pathologist | | | | | At | Signature | + +-------+ + + + | eGFR, | 74 | | | | | External | | | | | + +-------+ + + + + + | Specimen | + + | Blood | + + External Lab: Glucose (02/12/2019) + +-------+ + + + | Component | Value | Ref Range | Performed | Pathologist | | | | | At | Signature | + +-------+ + + + | Glucose, | 86 | | | | | External | | | | | + +-------+ + + + External Lab: Calcium (02/12/2019) + +-------+ + + + | Component | Value | Ref Range | Performed | Pathologist | | | | | At | Signature | + +-------+ + + + | Calcium, | 9.5 | | | | | External | | | | | + +-------+ + + + External Lab: Creatinine (02/12/2019) + +-------+ + + + | Component | Value | Ref Range | Performed | Pathologist | | | | | At | Signature | + +-------+ + + + | Creatinine, | 1.01 | | | | | External | | | | | + +-------+ + + + + + | Specimen | + + | Blood | + + External Lab: Potassium (02/12/2019) + +-------+ + + + | Component | Value | Ref Range | Performed | Pathologist | | | | | At | Signature | + +-------+ + + + | Potassium, | 4.7 | | | | | External | | | | | + +-------+ + + + External Lab: Sodium (02/12/2019) + +-------+ + + + | Component | Value | Ref Range | Performed | Pathologist | | | | | At | Signature | + +-------+ + + + | Sodium, | 139 | | | | | External | | | | | + +-------+ + + + External Lab: Protime INR (02/12/2019) + +---------+ + + + | Component | Value | Ref Range | Performed | Pathologist | | | | | At | Signature | + +---------+ + + + | INR, | 1.5 (A) | 0.9 - 1.2 | | | | External | | | | | + +---------+ + + + + + | Specimen | + + | Blood | + + documented in this encounter Visit Diagnoses Not on filedocumented in this encounter"
--- OUTSIDE RECORDS SUMMARY | ~2019-08-23 | XMS | Encounter Summary ---
Demographics + + + | Address | [address] | | | [place] [address] | + + + | Home Phone [...] + | Author | [facility] | | | and Jadenana | + + + | Organization | [facility] | | | and Jadenana [...] | | | | | [place] [address] | | + + + + + Care Team Providers + +------+ + | Care Pharmacy Helper Name | Role | Phone | + +------+ + | Lexie Cagle | PCP | | | HVAC SHEET METAL INSTALLER | | | + +------+ + Reason for Visit + + + | Reason | Comments | + + + | Follow-up | Pyuria and Neurogenic Bladder | + + + Encounter Details +--------+---------+ + + + | Date | Type | Department | Care Team | Description | +--------+---------+ + + + | 07/18/ | Office | [facility] | Michael Fernandes | Neurogenic bladder | | 2019 | Visit | [address] | MD [address] | (Primary Dx); Urge | | | | PRECIOUS [place] | AVE [place] | incontinence | | | | [address] | [address] | | | | | [phone] | | | +--------+---------+ + + + [...] is a 68 y.o. male patient of eLxie Cagle APRN here today for a follow [...] ite. Using sterile technique a new 16 [place]an [place] catheter was placed through the suprapub [...] catheter placement; Surgeon: Michael Fernandes MD; Location: [facility] MAIN OR CHOLECYCTOSTOMY CYSTOSCOPY N/A 04/19/2018 Procedure: Cystoscopy, bladder Botox, injection of urethral bulking agent; Surgeon: Gina Fernandes MD; Location: [facility] MAIN OR GASTRIC BYPASS SURGERY 2002 [...] UA, POC Negative Negative, 100 mg/dL Specific [place], UA, POC 1.020 1.001 - 1.030 Blood, [...] have not thoroughly proofread this note, and engine cleaner errors are very likely to occur. CC: Lexie Cagle APRN documented in this encounter Plan of Treatment +--------+---------+ + + + | Date | Type | Specialty | Care Team | Description | +--------+---------+ + + + | 11/12/ | Office | Sleep Medicine | Laith Sheffield PA | | | 2019 | Visit | | [address] | | | | | | [place] | | | | | | [id number] | | | | | | | | +--------+---------+ + + + documented as of this encounter Visit Diagnoses + + | Diagnosis | + + | Neurogenic bladder - Primary Neurogenic bladder, NOS | + + | Urge incontinence | + + documented in this encounter
--- OUTSIDE RECORDS SUMMARY | ~2019-08-23 | XMS | Encounter Summary ---
Demographics + + + | Address | [address] | | | [place] [address] | + + + | Home Phone | | + + + | Preferred Language | Unknown | + + + | Marital Status | Single | + + + | Scientology Affiliation | ORTHODOX | + + + [...] Team Providers + +------+ + | Care Textile Engraver Name | Role | Phone | + [...] as of this encounter Progress Notes Interface, Acid Correction Hand In - 10/14/2005 3:12 AM [facility] OUTPATIENT CONSULTATION REPORT [address], [place] [address] or Referred From and Faxed [...] has been attending the support groups at [facility] the of the month. He feels that [...] sent an E-mail to Dr. Posada, Jacquelyn Murguia, and Kathy Bardales over in the general [...] be helpful to him. It is called obesity[employer]urix, a chat room. It may be something he could try. I think the professional one-on-one counseling would be much more helpful. 5. He has my number. I asked him to follow up and call in two weeks to see if some of these suggestions he is able to implement into his eating plan. Shelly Hamilton R.D., LThomas. /pilo P [phone] cc: docuperry d in this encounter Plan of Treatment +--------+ + + + + | Date | Type | Specialty | Care Team | Description | +--------+ + + + + | 10/31/ | Appointment | Hematology & | Onc, Gen [address] | | | 2020 | | Oncology | [place], | | | | | | [place] [address] | | +--------+ + + + + documented as of this encounter Visit Diagnoses Not on filedocumented in this encounter"
--- OUTSIDE RECORDS SUMMARY | ~2019-08-23 | XMS | Encounter Summary ---
Demographics + + + | Address | [address] | | | [place] [address] | + + + | Home Phone | | + + + | Preferred Language | Unknown | + + + | Marital Status | | + + + | Yarsanism Affiliation | Unknown | + + + | Race | Unknown | + + + | Ethnic Group | Unknown | + + + Author + + + | Author | [facility] | | | and Jadenana | + + + | Organization | [facility] | | | and [...] | | | | | [place] [address] | | + + + + + Care Team Providers + +------+ + | Care Digital Service Engineer Name | Role | Phone | + +------+ + | Lexie Cagle | PCP | | | INTERNAL CONTROLS ANALYST | | | + +------+ + Reason for Visit + + + | Reason | Comments | + + + | Lab Order | | + + + Encounter Details +--------+ + + + + | Date | Type | Department | Care Team | Description | +--------+ + + + + | 06/01/ | Telephone | [facility] | Lexie Cagle | Lab Order | | 2019 | | MEDICINE [address] | [address] | | | | | Street [place] | [address] [facility] | | | | | [place] [address] | [place] [address] | | | | | [phone] | [phone] | | | | | | | [...] 2020 | Visit | | [address] | | | | | | [place] | | | | | | [address] | | | | | | | | +--------+---------+ + + + documented as of this encounter Visit Diagnoses Not on filedocumented in this encounter"
--- OUTSIDE RECORDS SUMMARY | ~2019-08-23 | XMS | Encounter Summary ---
Demographics + + + | Address | [address] | | | [place] [address] | + + + | Home Phone | | + + + | Preferred Language | Unknown | + + + | Marital Status | | + + + | Taoism Affiliation | Unknown | + + + | Race | Unknown | + + + | Ethnic Group | Unknown | + + + Author + + + | Author | [facility] | | | and Jadenana | + + + | Organization | [facility] | | | and [...] | | | | | [place] [address] | | + + + + + Care Team Providers + +------+ + | Care Box Sealing Machine Catcher Name | Role | Phone | + +------+ + | Lexie Cagle | PCP | | | BANANA CARRIER | | | + +------+ + Reason [...] | | PRECIOUS [place] | [place] | caths) | | | | [address] | [address] | | | | | [phone] | | | +--------+ + + + [...] [place] | | | | | | [address] | | | | | | | | +--------+---------+ + + + documented as of this encounter Visit Diagnoses Not on filedocumented in this encounter"
--- OUTSIDE RECORDS SUMMARY | ~2019-08-23 | XMS | Encounter Summary ---
Demographics + + + | Address | [address] | | | [place] [address] | + + + | Home Phone [...] Author | [facility] | | | and Jadenana | + + + | Organization | [facility] [...] | | | | | [place] [address] | | + + + + + Care Team Providers + +------+ + | Care Plant Wrapper Name | Role | Phone | + +------+ + | Lexie Cagle | PCP | | | MERCHANDISE DISTRIBUTOR | | | + +------+ + Encounter Details +--------+ + + + + | Date | Type | Department | Care Team | Description | +--------+ + + + + | 04/02/ | Abstract | [facility] [place] | Provider, | | | 2019 | | PHYSIATRY [address] | [address] | | | | | [address] | [address] | | | | | [place] | [place] [address] | | | | | [address] | | | | | | [phone] | | | +--------+ + + + [...] [place] | | | | | | [address] | | | | | | | | +--------+---------+ + + + documented as of this encounter Visit Diagnoses Not on filedocumented in this encounter"
--- OUTSIDE RECORDS SUMMARY | ~2019-08-23 | XMS | Encounter Summary ---
Demographics + + + | Address | [address] | | | [place] [address] | + + + | Home Phone [...] | [facility] | | | and Jadenana | + + + | Organization | [facility] | [...] | | | | | [place] [address] | | + + + + + Care Team Providers + +------+ + | Care Hand Tacker Name | Role | Phone | + +------+ + | Lexie Cagle | PCP | | | HOTEL OPERATION MANAGER | | | + +------+ + Encounter Details +--------+---------+ + + + | Date | Type | Department | Care Team | Description | +--------+---------+ + + + | 09/12/ | Office | [facility] | Michael Fernandes | Neurogenic bladder | | 2019 | Visit | [address] | MD [address] | (Primary Dx); Urge | | | | [place] | AVE [place] | incontinence; | | | | [address] | [address] | 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) | +--------+---------+ + [...] PRN Greater than 15 minutes was spent [id number] with the patient and greater than 50% [...] catheter placement; Surgeon: Michael Fernandes MD; Location: [facility] MAIN OR CHOLECYCTOSTOMY CYSTOSCOPY N/A 04/19/2018 Procedure: Cystoscopy, bladder Botox, injection of urethral bulking agent; Surgeon: Gnia Fernandes MD; Location: [facility] MAIN OR GASTRIC BYPASS SURGERY [...] UA, POC Negative Negative, 100 mg/dL Specific [place], UA, POC 1.020 1.001 - 1.030 Blood, [...] have not thoroughly proofread this note, and radiology special procedure tech errors are very likely to occur. CC: [...] depression to the point he's going to [place] for "sepideh ck treatment" and the constant [...] [place] | | | | | | [phone] | | | | | | | [...]
--- OUTSIDE RECORDS SUMMARY | ~2019-08-23 | XMS | Encounter Summary ---
Demographics + + + | Address | [address] | | | [place] [address] | + + + | Home Phone | | + + + | Preferred Language | Unknown | + + + | Marital Status | Single | + + + | Episcopal Affiliation | BAHAI | + + + [...] Team Providers + +------+ + | Care Project Engineering Manager Name | Role | Phone [...] | | | | [address] [facility] | [place], [place] | | | | | [address] | [address] | | | | | [place], [place] | [phone] | | | | | [address] | | | | | | [phone] | | | +--------+ + + + [...] | | | | | | [place] [address] | | +--------+ + + + + [...] | + + + + + | [facility] DEPARTMENT OF | [address] | [place] [address] | | | PATHOLOGY | [address] | | | + + + + + | [place] DEPARTMENT OF | [address] | [place] [address] | | | PATHOLOGY | [address] [...] + + + + + | [facility] | [facility] [address] | [place] [address] | | | PATHOLOGY | [address] | | | + + + + + | [facility] | [facility] [address] | [place] [address] | | | PATHOLOGY | [address] | | | + + + + + documented in this encounter Visit Diagnoses Not on filedocumented in this encounter"
--- OUTSIDE RECORDS SUMMARY | ~2019-08-23 | XMS | Encounter Summary ---
Demographics + + + | Address | [address] | | | [place] [address] | + + + | Home Phone | | + + + | Preferred Language | Unknown | + + + | Marital Status | Single | + + + | Sikhism Affiliation | ISLAM | + + + [...] Team Providers + +------+ + | Care Boat Patcher Plastic Name | Role | Phone | + [...] | Telephone | Neurology at | Christian aMldonado MD | Other ([place]) | | 2017 | | [facility] | [address] | | | | | Healing [address] | [address] [place], | | | | | [place] Mailcode: [place] | [place] [address] | | | | | [facility] | [phone] | | | | | and Healing, | | | | | | [facility] | | | | | | [place], [place] | | | | | | [address] | | | | | | [phone] | | | +--------+ + + + [...] | | | | | | [place] [address] | | +--------+ + + + + documented as of this encounter Visit Diagnoses Not on filedocumented in this encounter"
--- OUTSIDE RECORDS SUMMARY | ~2019-08-23 | XMS | Encounter Summary ---
Demographics + + + | Address | [address] | | | [place] [address] | + + + | Home Phone | | + + + | Preferred Language | Unknown | + + + | Marital Status | Single | + + + | Pentecostal Affiliation | METHODIST | + + + [...] Team Providers + +------+ + | Care Collection Systems Administrator Name | Role | Phone | [...] (Scan Records) | | 2016 | | [place] [facility] & | DO | | | | | Healing [address] | | | | | | [place] Mailcode: CH8[place] | | | | | | [facility] | | | | | | and Healing, | | | | | | Building | | | | | | Floor [place], [place] | | | | | | [address] | | | | | | [phone] | | | +--------+ + + + [...] | | | | | | [place] [address] | | +--------+ + + + + documented as of this encounter Visit Diagnoses Not on filedocumented in this encounter"
--- OUTSIDE RECORDS SUMMARY | ~2019-08-23 | XMS | Encounter Summary ---
Demographics + + + | Address | [address] | | | [place] [address] | + + + | Home Phone | | + + + | Preferred Language | Unknown | + + + | Marital Status | Single | + + + | Episcopalian Affiliation | DENOMINATIONAL | + + + [...] Team Providers + +------+ + | Care Natural Resources Engineer Name | Role | Phone | [...] as of this encounter Progress Notes Interface, Honing Machine Set Up Operator In - 02/20/2006 2:22 AM [facility] DATE: 06/16/1999 MULTIPLE SCLEROSIS CLINIC LAST VISIT: [...] Christian Maldonado M.D. MERARY / VICTOR M [id number] / [id number] / [id number] / [id number] cc: Colin Vuong M.D. [address] [place] [address] Rudolph Lee M.D. [address] [id number] signed by Stacy, Honing Machine Set Up Operator In at 02/20/2006 2:22 AM PSTdocumented in this encounter Plan of Treatment +--------+ + + + + | Date | Type | Specialty | Care Team | Description | +--------+ + + + + | 10/31/ | Appointment | Hematology & | Onc, Gen [address] | | | 2020 | | Oncology | [place], | | | | | | [place] [address] | | +--------+ + + + + documented as of this encounter Visit Diagnoses Not on filedocumented in this encounter"
--- OUTSIDE RECORDS SUMMARY | ~2019-08-23 | XMS | Encounter Summary ---
Demographics + + + | Address | [address] 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 year old male from [place] : Patient presents with: Comprehensive eye examination [...] scanned intake form or preadmission data in [facility] for full Family ocular and [...] tablet Take 5,[address] [facility] once daily. cyanocobalamin 1,000 mcg/mL injection [...] Pressure 10 10 Manifest Refraction Sphere Cylinder [place] [facility] [place] Right +0.50 +0.50 030 20/15 [...] I have reviewed and edited history and mining technician documentation, and performed all other el ements to above examination documentation. I have reviewed and verified the above scribed note of my visit with this patient as record ed by the scribe indicated in the tech attestation above. Ethel Romo MD Ceramic Tile Installation Helper Comprehensive Ophthalmology [facility] Physician: Ethel Romo MD documented in [...] | | | | | | [place] [address] | | +--------+ + + + + [...]
--- OUTSIDE RECORDS SUMMARY | ~2019-08-23 | XMS | Encounter Summary ---
Demographics + + + | Address | [address] | | | [place] [address] | + + + | Home Phone | | + + + | Preferred Language | Unknown | + + + | Marital Status | Single | + + + | Druze Affiliation | BUDDHISM | + + + [...] Team Providers + +------+ + | Care Sludge Mill Operator Name | Role | Phone | + +------+ + | Trevin Delacruz MD | PCP | | + +------+ + Encounter Details +--------+ + + + + | Date | Type | Department | Care Team | Description | +--------+ + + + + | 08/26/ | Telephone | Digestive Health | Liliana Conteh, | | | 2014 | | [place] [facility] [address] | [facility] [address] | | | | | [address] | Ave [facility] [place] | | | | | Mailcode: [place] | [address] | | | | | [facility] and | [phone] | | | | | [facility] [address] [address], [place] [address] | | | | | | [place], [place] | | | | | | [address] | | | | | | | [...] | | | | | | [place] [address] | | +--------+ + + + + documented as of this encounter Visit Diagnoses Not on filedocumented in this encounter"
--- OUTSIDE RECORDS SUMMARY | ~2019-08-23 | XMS | Encounter Summary ---
Demographics + + + | Address | [address] | | | [place] [address] | + + + | Home Phone | | + + + | Preferred Language | Unknown | + + + | Marital Status | | + + + | Anabaptism Affiliation | Unknown | + + + | Race | Unknown | + + + | Ethnic Group | Unknown | + + + Author + + + | Author | [facility] | | | and Jadenana | + + + | Organization | [facility] | [...] | | | | | [place] [address] | | + + + + + Care Team Providers + +------+ + | Care Golf Ball Inspector Name | Role | Phone | [...] + | 03/18/ | Telephone | [facility] | Lexie Cagle | Other | | 2019 | | MEDICINE [address] | [address] | | | | | [address] [place] | [address] | | | | | [place] [address] | [place] [address] | | | | | [phone] | [phone] | | | | | | | [...] 2019 | Visit | | [address] | | | | | | [place] | | | | | | [address] | | | | | | | | +--------+---------+ + + + documented as of this encounter Visit Diagnoses Not on filedocumented in this encounter"
--- OUTSIDE RECORDS SUMMARY | ~2019-08-23 | XMS | Encounter Summary ---
Demographics + + + | Address | [address] | | | [place] [address] | + + + | Home Phone [...] Team Providers + +------+ + | Care Dispatch Manager Name | Role | Phone | + +------+ + | Jose Hameed MD | PCP | | + +------+ + Encounter Details +--------+ + + + + | Date | Type | Department | Care Team | Description | +--------+ + + + + | 10/04/ | Telephone | Neurology at | Christian Maldonado MD | | | 2018 | | [place] [facility] & | [address] | | | | | Healing [address] | [address] [place], | | | | | [place] Mailcode: CH8C | [place] [address] | | | | | [facility] | [phone] | | | | | and Healing, | | | | | | | | | | | | [place], [place] | | | | | | [address] | | | | | | [phone] | | | +--------+ + + + [...] | | | | | | [place] [address] | | +--------+ + + + + documented as of this encounter Visit Diagnoses Not on filedocumented in this encounter"
--- OUTSIDE RECORDS SUMMARY | ~2019-08-23 | XMS | Encounter Summary ---
Demographics + + + | Address | [address] | | | [place] [address] | + + + | Home Phone | | + + + | Preferred Language | Unknown | + + + | Marital Status | Single | + + + | Jew Affiliation | ANABAPTISM | + + + [...] Team Providers + +------+ + | Care Microwave Technician Name | Role | Phone | [...] as of this encounter Progress Notes Interface, Logistics Officer In - 10/24/2004 6:13 AM PDT [id number] 03/15/2004 03/15/2004 [id number] [facility] Date: 03/15/2004 Clinic: Neurology Multiple Sclerosis Neuroimmunology [...] for recommendations regarding increasing his antidepressants. Lei Hutiron M.D. Michelle P [id number] cc: Electronically signed by Lei Huitron 09-07-2004 09:18:28 AM documented i n this encounter Plan of Treatment +--------+ + + + + | Date | Type | Specialty | Care Team | Description | +--------+ + + + + | 10/31/ | Appointment | Hematology & | Onc, Gen [address] | | | 2020 | | Oncology | [address] [place], | | | | | | [place] [address] | | +--------+ + + + + documented as of this encounter Visit Diagnoses Not on filedocumented in this encounter"
--- OUTSIDE RECORDS SUMMARY | ~2019-08-23 | XMS | Encounter Summary ---
Demographics + + + | Address | [address] | | | [place] [address] | + + + | Home Phone [...] | Author | [facility] | | | and Jadenana | + + + | Organization | [facility] | | | and Jadenana [...] | | | | | [place] [address] | | + + + + + Care Team Providers + +------+ + | Care Digital Pre Press Operator Name | Role | Phone | + +------+ + | Lexie Cagle | PCP | | | MECHANICAL ENGINEERING MANAGER | | | + +------+ + Reason for Visit + + + | Reason | Comments | + + + | Referral | | + + + Encounter Details +--------+ + + + + | Date | Type | Department | Care Team | Description | +--------+ + + + + | 07/12/ | Telephone | [facility] | Lexie Cagle | Referral | | 2019 | | MEDICINE [address] | [address] | | | | | Street [address] | [address] [facility] | | | | | [place] [address] | [place] [address] | | | | | [phone] | [phone] | | | | | | | [...] 2020 | Visit | | [address] | | | | | | [place] | | | | | | [address] | | | | | | | | +--------+---------+ + + + documented as of this encounter Visit Diagnoses Not on filedocumented in this encounter"
--- OUTSIDE RECORDS SUMMARY | ~2019-08-23 | XMS | Encounter Summary ---
Demographics + + + | Address | [address] | | | [place] [address] | + + + | Home Phone | | + + + | Preferred Language | Unknown | + + + | Marital Status | Single | + + + | Uatsdin Affiliation | GNOSTICIST | + + + | Race | [...] Providers + +------+ + | Care Director Of Residence Life Name | Role | Phone | + [...] | | | | | | [place] [address] | | +--------+ + + + + [...]
--- OUTSIDE RECORDS SUMMARY | ~2019-08-23 | XMS | Encounter Summary ---
Demographics + + + | Address | [address] | | | [place] [address] | + + + | Home Phone | | + + + | Preferred Language | Unknown | + + + | Marital Status | Single | + + + | Adventist Affiliation | HOLINESS | + + + [...] Team Providers + +------+ + | Care Merchandise Deliverer Name | Role | Phone | + [...] | | | | Mailcode: CH10U | [facility] [place] | | | | | [facility] | [address] | | | | | and [address], | [phone] | | | | | | | | | | | Floor [place], [place] | | | | | | [address] | | | | | | [phone] | | | +--------+ + + + [...] | | | | | | [place] [address] | | +--------+ + + + + documented as of this encounter Visit Diagnoses Not on filedocumented in this encounter"
--- OUTSIDE RECORDS SUMMARY | ~2019-08-23 | XMS | Encounter Summary ---
Demographics + + + | Address | [address] | | | [place] [address] | + + + | Home Phone | | + + + | Preferred Language | Unknown | + + + | Marital Status | Single | + + + | Zoroastrianism Affiliation | RELIGIOUS | + + + [...] Team Providers + +------+ + | Care Collar Pointer Name | Role | Phone | + [...] | | | | | | [place] [address] | | +--------+ + + + + documented as of this encounter Visit Diagnoses Not on filedocumented in this encounter"
--- OUTSIDE RECORDS SUMMARY | ~2019-08-23 | XMS | Encounter Summary ---
Demographics + + + | Address | [address] | | | [place] [address] | + + + | Home Phone [...] Team Providers + +------+ + | Care Pharmacist In Charge Owner Name | Role | Phone | + [...] for Health | | | | | IN | Ave | and Healing | | | | | THR/PRPH/DX | [place], [place] | [address] | | | | | [place]F,[place] | [address] | Ave | | | | | IN | Phone: | [place], [place] | | | | | THER/PROPH/D | [phone] | [address] | | | | | IAG IV IN | Fax: | Phone: | | | | | INJ, | [phone] | [phone] | | | | | OCRELIZUMAB, | | Fax: | | | | | 1 MG | | [phone] | | | | | Ocrevus | | | +--------+--------+ + + + + Encounter Details +--------+ + + + + | Date | Type | Department | Care Team | Description | +--------+ + + + + | 05/18/ | Hospital | [facility] | Nurse2, Hem [address] | | | 2018 | Encounter | Clinics at S | [address] | | | | | [facility] | [place] [address] | | | | | for Health and | [address]2, Hem [address] | | | | | Healing [address] | [address] [place], | | | | | Ave [place], [place] | [place] [address] | | | | | [address] | | | | | | [phone] | | | +--------+ + + + [...] | | | | | | [place] [address] | | +--------+ + + + + [...] 9:20 | | | | | dose, [facility] 05/18/17 at 0900 | | AM PST | | | | + +--------+ +--------+------+------+ +---+---+ | | | +---+---+ + +-------+ +-------+---+---+ | loratadine (CLARITIN) tablet 10 | Given | 05/18/19 | 10 mg | | | | mg 10 mg, oral, NEEDED, 1 | | 18 9:20 | | | | | dose, Starting [facility] 05/18/17 at | | AM PST | | | | | 0845, Until [facility] 05/18/17 at 0920, | | | | | | | Give instead of diphenhydrAMINE | | | | | | | if patient does not have a dolly driver | | | | | | [...]
--- OUTSIDE RECORDS SUMMARY | ~2019-08-23 | XMS | Encounter Summary ---
Demographics + + + | Address | [address] | | | [place] [address] | + + + | Home Phone | | + + + | Preferred Language | Unknown | + + + | Marital Status | | + + + | Holiness Affiliation | Unknown | + + + | Race | Unknown | + + + | Ethnic Group | Unknown | + + + Author + + + | Author | [facility] | | | and Jadenana | + + + | Organization | [facility] | | | and Jadenana [...] | | | | | [place] [address] | | + + + + + Care Team Providers + +------+ + | Care Clinical Data Analyst Name | Role | Phone | + +------+ + | Lexie Cagle | PCP | | | SURGICAL SCRUB TECH | | | + +------+ + [...] [place] | | | | | [place] | | [address] Phone: | | | | | INCISE/DRAIN | | [phone] | | | | | BLADDER | | Fax: | | | | | | | [phone] | +--------+--------+ + + + + Encounter Details +--------+ + + + + | Date | Type | Department | Care Team | Description | +--------+ + + + + | 06/20/ | Hospital | [facility] | Michael Fernandes | Neurogenic bladder; | | 2019 | Encounter | MED CTR [place] INTRA OP | MD [address] | Urge incontinence | | | | [address] | [address] [place] | | | | | PRECIOUS [place] | [address] | | | | | [address] | | | | | | [phone] | | | +--------+ + + + [...] [place] | | | | | | [id number] | | | | | | | [...]
--- OUTSIDE RECORDS SUMMARY | ~2019-08-23 | XMS | Encounter Summary ---
Demographics + + + | Address | [address] | | | [place] [address] | + + + | Home Phone | | + + + | Preferred Language | Unknown | + + + | Marital Status | Single | + + + | Scientology Affiliation | BUDDHISM | + + + [...] Team Providers + +------+ + | Care Wallpaper Consultant Name | Role | Phone | [...] sclerosis | | 2016 | Visit | [place] | [address] | [facility] (Primary Dx); | | | | ogy at [facility] [address] | [place], [place] | Senile nuclear | | | | [address] Mailcode: | [address] | sclerosis, bilateral | | | | [address] [facility] | [phone] | | | | | Health and Healing, | | | | | | Building | | | | | | Floor [place], [place] | | | | | | [address] | | | | | | [phone] | | | +--------+---------+ + + + [...] and Plan: Exam Date: 04/28/2015 Patient:Mian Marquez ([id number]) Impression: Multiple Sclerosis With history of optic [...] Ethel Romo MD 04/28/2015 HPI: Mian Marquez ([id number]), 65 y.o. year old male from [place] : Patient presents with: Medical Eye Examination [...] Pressure 12 12 Wearing Rx Sphere Cylinder Jackson Add Right -0.25 +1.50 160 +2.00 Left [...] 2020 | | Oncology | [address] [place], | | | | | | [place] [address] | | +--------+ + + + + documented as of this encounter Visit Diagnoses + + | Diagnosis | + + | Multiple sclerosis (HCC) - Primary Multiple sclerosis | + + | Senile nuclear sclerosis, bilateral | + + documented in this encounter
--- OUTSIDE RECORDS SUMMARY | ~2019-08-23 | XMS | Encounter Summary ---
Demographics + + + | Address | [address] | | | [place] [address] | + + + | Home Phone | | + + + | Preferred Language | Unknown | + + + | Marital Status | Single | + + + | Mu-Ism Affiliation | TENRIISM | + + + [...] Team Providers + +------+ + | Care Hose Maker Name | Role | Phone | + +------+ + | Jose Hameed MD | PCP | | + +------+ + Encounter Details +--------+ + + + + | Date | Type | Department | Care Team | Description | +--------+ + + + + | 11/18/ | Mortician Investigator | [facility] | [place], | | | 2019 | | Clinics at | MD [address] | | | | | [facility] | [address], | | | | | for Health and | [place] [address] | | | | | Healing [address] | [phone] | | | | | [place] | | | | | | [address] | | | | | | [phone] | | | +--------+ + + + [...] | | | | | | [place] [address] | | +--------+ + + + + documented as of this encounter Visit Diagnoses Not on filedocumented in this encounter"
--- OUTSIDE RECORDS SUMMARY | ~2019-08-23 | XMS | Encounter Summary ---
Demographics + + + | Address | [address] | | | [place] [address] | + + + | Home Phone | | + + + | Preferred Language | Unknown | + + + | Marital Status | Single | + + + | Scientologist Affiliation | SYNAGOGUE | + + + [...] Providers + +------+ + | Care Collection Development Librarian Name | Role | Phone | [...] | +--------+ + + + + | 11/06/ | Hospital | [facility] GI PROCEDURE | Emilie Sanchez, | | | 2014 | Encounter | [address] | | | | | | [place] Mailcode: [facility] | | | | | | [facility] | | | | | | Health and Healing, | | | | | | Building [address] | | | | | | [place], [place] | | | | | | [address] | | | | | | [phone] | | | +--------+ + + + [...] + + + | Blood Pressure | 119/77 | 11/06/2014 2:47 PM | | | | | PDT | | + + + + + | Pulse | 70 | 11/06/2014 2:47 PM | | | | | PDT | | + + + + + | Temperature | - | - | | + + + + + | Respiratory Rate | 14 | 11/06/2014 2:47 PM | | | | | PDT | | + + + + + | Oxygen Saturation | 96% | 11/06/2014 2:47 PM | | | | | PDT | | + + + + + | Inhaled Oxygen | - | - | | | Concentration | | | | + + + + + | Weight | 90.7 kg (200 lb) | 11/06/2014 1:29 PM | | | | | PDT | | + + + + + | Height | - | - | | + + + + + | Body Mass Index | 28.7 | 09/25/2014 9:07 AM | | | | | PDT | | + + + + + documented in this encounter Discharge Instructions Instructions Jacquelyn Tomas RN - 11/06/2014 Home Care Instructions after EGD (Upper Endoscopy) [...] Monday 8:00- 4:30 Endoscopy Toll Free ext [phone] or After business hours, or on weekends and holiday [facility] [phone] ext. [phone] and have the GI doctor automotive service professional paged. The provider who performed your procedure is: Dr Sanchez Results of your exam: normal exam. Harris capsule placed at 2:15p. Return equipment 11/10 between 8a-4p Follow up Appointments with: Your primary care provider or Referring provider [...] | | | | | | [place] [address] | | +--------+ + + + + documented as of this encounter Procedures + +--------+ + + + | Procedure Name | Priori | Date/Time | Associated Diagnosis | Comments | | | ty | | | | + +--------+ + + + | AMBULATORY PH | | 11/06/2014 | | Results for this | | MONITORING | | 12:00 AM | | procedure are in the | | | | PDT | | results section. | + +--------+ + + + | EGD | | 11/06/2014 | | Results for this | | | | 12:00 AM | | procedure are in the | | | | PDT | | results section. | + +--------+ + + + documented in this encounter Results AMBULATORY PH MONITORING (11/06/2014 12:00 AM PDT) + + + | Narrative | Performed At | + + + | | | + + + EGD (11/06/2014 12:00 AM PDT) + + + | [...] | fentaNYL citrate (PF) | Given | 11/07/19 | 100 mcg | | | | (SUBLIMAZE) injection 1 dose, | | 15 2:07 | | | | | Starting [facility] 11/06/14 at 1326, | | PM PDT | | | | | Until Jemma 11/06/14 at 1407 | | | | | | + +--------+ +---------+------+------+ +---+---+ | | | +---+---+ + +-------+ +------+---+---+ | midazolam (PF) (VERSED) | Given | 11/07/19 | 6 mg | | | | injection 1 dose, Starting Jemma | | 15 2:07 | | | | | 11/06/14 at 1326, Until Jemma | | PM PDT | | | | | 11/06/14 at 1407 | | | | | | + +-------+ +------+---+---+ +---+---+ | | | +---+---+ documented in this encounter"
--- OUTSIDE RECORDS SUMMARY | ~2019-08-23 | XMS | Encounter Summary ---
Demographics + + + | Address | [address] | | | [place] [address] | + + + | Home Phone | | + + + | Preferred Language | Unknown | + + + | Marital Status | Single | + + + | Zoroastrian Affiliation | TAOISM | + + + [...] Providers + +------+ + | Care Retail Sales Assistant Name | Role | Phone | [...] Rd | | | | | | [place] [address] | | | | | | [phone] | | | | | | | [...] | | | | | | [place] [address] | | +--------+ + + + + [...] | | + +---------+ + + | [facility] DEPARTMENT OF | | | | | RADIOLOGY | | | | + +---------+ + + documented in this encounter Visit Diagnoses Not on filedocumented in this encounter"
--- OUTSIDE RECORDS SUMMARY | ~2019-08-23 | XMS | Encounter Summary ---
Demographics + + + | Address | [address] | | | [place] [address] | + + + | Home Phone [...] | Author | [facility] | | | and Jadenana | + + + | Organization | [facility] | | | and [...] | | | | | [place] [address] | | + + + + + Care Team Providers + +------+ + | Care Outside Plant Cable Engineer Name | Role | Phone | + +------+ + | Lexie Cagle | PCP | | | BEER COIL CLEANER | | | + +------+ + Reason for Visit +---------+ + | Reason | Comments | +---------+ + | Results | xrays | +---------+ + Encounter Details +--------+ + + + + | Date | Type | Department | Care Team | Description | +--------+ + + + + | 12/13/ | Telephone | [facility] | Lexie Cagle | Results (xrays) | | 2019 | | MEDICINE [address] | [address] | | | | | Street [address] | [address] [facility] | | | | | [place] [address] | [place] [address] | | | | | [phone] | [phone] | | | | | | | [...] [place] | | | | | | [address] | | | | | | | | +--------+---------+ + + + documented as of this encounter Visit Diagnoses Not on filedocumented in this encounter"
--- OUTSIDE RECORDS SUMMARY | ~2019-08-23 | XMS | Encounter Summary ---
Demographics + + + | Address | [address] | | | [place] [address] | + + + | Home Phone [...] Author | [facility] | | | and Jadenana | + + + | Organization | [facility] | [...] | | | | | [place] [address] | | + + + + + Care Team Providers + +------+ + | Care Product Architect Name | Role | Phone | + +------+ + | Lexie Cagle | PCP | | | CRUSHER TENDER | | | + +------+ + Reason for Visit + + + | Reason | Comments | + + + | Establish Care | | + + + Encounter Details +--------+---------+ + + + | Date | Type | Department | Care Team | Description | +--------+---------+ + + + | 04/20/ | Office | [facility] | Lexie Cagle | Encounter for | | 2019 | Visit | MEDICINE [address] | [address] | medical examination | | | | [facility] | [facility] | to establish care | | | | [place] [address] | [place] [address] | (Primary Dx); | | | | [phone] | [phone] | Hypoglycemia; RLS | | | | [...] disorder | | | | | | ([facility]); | | | | | | Psychophysiological [...] to Establish Care. He recently relocated from [place] to [place] to be closer to his daughter and grandchildren. Mian has a complex medical history including secondary progressive MS diagnosed in 1997, m anaged by Dr. Maldonado at [facility]. Neurogenic badder with detrusor instability and incontinence-has [...] and he feels like his move from [place] h as made it much worse. He is established with a psychiatrist in [place] and a counselor in [place]. He states that he is not currently [...] left hand surgery with Dr. 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 [...] or shower?: (!) Yes Fall Risk Screening ([facility]) 1. Have you fallen in the [...] Surgeon: Gina Fernandes MD; Location: [facility] MAIN OR GASTRIC BYPASS SURGERY 2001 2 [...] hand pain Follows with Dr Sepulveda at [facility] 12. Neurogenic bladder 13. Calculus [...] this patient today. > 50% of time staff counselor ing regarding the listed conditions, options [...]
--- OUTSIDE RECORDS SUMMARY | ~2019-08-23 | XMS | Encounter Summary ---
Demographics + + + | Address | [address] | | | [place] [address] | + + + | Home Phone | | + + + | Preferred Language | Unknown | + + + | Marital Status | Single | + + + | Adventism Affiliation | RASTAFARIAN | + + + [...] Team Providers + +------+ + | Care Pot Annealer Name | Role | Phone | + [...] | | | | | Eulalia James [place], | | | | | | [place] [address] | | +--------+ + + + + [...] | | | | | | [place] [address] | | +--------+ + + + + [...] DEPARTMENT OF | [address] | [place] [address] | | | PATHOLOGY | [address] | | | + + + + + | [facility] DEPARTMENT OF | [address] | [place] [address] | | | PATHOLOGY | [address] | | | + + + + + BILIRUBIN, DIRECT (04/10/2002 2:14 PM PST) + +-------+ + + + | Component | Value | Ref Range | Performed | Pathologist | | | | | At | Signature | + +-------+ + + + | BILIRUBIN | 0.2 | <0.4 mg/dL | [facility] | | | DIRECT | | | [...] | + + + + + | [facility] | [facility] [facility] | [place] [address] | | | PATHOLOGY | [address] | | | + + + + + | [facility] | [address] [place] [address] | [place] [address] | | | PATHOLOGY | [address] [...] | + + + + + | [facility] DEPARTMENT OF | [address] [facility] | [place] [address] | | | PATHOLOGY | [address] | | | + + + + + | [facility] DEPARTMENT OF | [facility] [facility] | [place] [address] | | | PATHOLOGY | [address] [...] | + + + + + | [facility] DEPARTMENT OF | [address] | [place] [address] | | | PATHOLOGY | [address] | | | + + + + + | [facility] DEPARTMENT OF | [address] | [place] [address] | | | PATHOLOGY | [address] [...] | + + + + + | [facility] | [address] | [place] [address] | | | PATHOLOGY | [address] | | | + + + + + | [facility] DEPARTMENT | [address] | [place] [address] | | | PATHOLOGY | [address] [...] | + + + + + | [facility] DEPARTMENT | [address] [facility] | [place] [address] | | | PATHOLOGY | [address] | | | + + + + + | [facility] DEPARTMENT | [facility] [facility] | [place] [address] | | | PATHOLOGY | [address] [...] | + + + + + | [facility] DEPARTMENT OF | [address] [facility] | [place] [address] | | | PATHOLOGY | [address] | | | + + + + + | [facility] DEPARTMENT OF | [address] [facility] | [place] [address] | | | PATHOLOGY | [address] [...] + + | [facility] DEPARTMENT OF | [address] | [place] [address] | | | PATHOLOGY | [address] | | | + + + + + | [facility] | [address] | [place] [address] | | | PATHOLOGY | [address] | | | + + + + + documented in this encounter Visit Diagnoses Not on filedocumented in this encounter"
--- OUTSIDE RECORDS SUMMARY | ~2019-08-23 | XMS | Encounter Summary ---
Demographics + + + | Address | [address] | | | [place] [address] | + + + | Home Phone | | + + + | Preferred Language | Unknown | + + + | Marital Status | Single | + + + | Caodaism Affiliation | ZOROASTRIAN | + + + [...] Team Providers + +------+ + | Care Program Advocate Name | Role | Phone | + [...] | | | | | | [place] [address] | | +--------+ + + + + [...] + + + + + | [facility] DEPARTMENT OF | [address] [facility] | [place] [address] | | | PATHOLOGY | [address] | | | + + + + + | [facility] DEPARTMENT OF | [address] [facility] | [place] [address] | | | PATHOLOGY | [address] [...] DEPARTMENT OF | [address] | [place] [address] | | | PATHOLOGY | [address] | | | + + + + + | [facility] DEPARTMENT | [address] | [place] [address] | | | PATHOLOGY | [address] [...] DEPARTMENT OF | [address] | [place], [place] [address] | | | PATHOLOGY | [address] | | | + + + + + | [facility] DEPARTMENT OF | [address] | [place] [address] | | | PATHOLOGY | [address] [...] + + + + + | [facility] DEPARTMENT OF | [address] | [place] [address] | | | PATHOLOGY | [address] | | | + + + + + | [facility] DEPARTMENT OF | [address] | [place] [address] | | | PATHOLOGY | [address] | | | + + + + + documented in this encounter Visit Diagnoses Not on filedocumented in this encounter"
--- OUTSIDE RECORDS SUMMARY | ~2019-08-23 | XMS | Encounter Summary ---
Demographics + + + | Address | [address] | | | [place] [address] | + + + | Home Phone | | + + + | Preferred Language | Unknown | + + + | Marital Status | Single | + + + | Faith Affiliation | BAHAI | + + + [...] Providers + +------+ + | Care Automotive Repair Technician Name | Role | Phone | [...] | | | | [id number] [facility] | [place], [place] | | | | | [address] | [address] | | | | | [place], [place] | [phone] | | | | | [address] | | | | | | [phone] | | | +--------+ + + + [...] | | | | | | [place] [address] | | +--------+ + + + + [...] | + + + + + | [facility] | [address] [facility] | [place] [address] | | | PATHOLOGY | [address] | | | + + + + + | [facility] | [address] [facility] | [place] [address] | | | PATHOLOGY | [address] [...] | + + + + + | [facility] DEPARTMENT OF | [address] [facility] | [place] [address] | | | PATHOLOGY | [address] | | | + + + + + | [facility] DEPARTMENT OF | [address] [facility] | [place] [address] | | | PATHOLOGY | [address] | | | + + + + + documented in this encounter Visit Diagnoses Not on filedocumented in this encounter"
--- OUTSIDE RECORDS SUMMARY | ~2019-08-23 | XMS | Encounter Summary ---
Demographics + + + | Address | [address] | | | [place] [address] | + + + | Home Phone [...] | Author | [facility] | | | and Jadenana | + + + | Organization | [facility] | | | and [...] | | | | | [place] [address] | | + + + + + Care Team Providers + +------+ + | Care Flute Teacher Name | Role | Phone | + +------+ + | Lexie Cagle | PCP | | | SECTION REPAIRER | | | + +------+ + Reason for Visit + + + | Reason | Comments | + + + | Catheter Problem | | | (Leaking) | | + + + Encounter Details +--------+ + + + + | Date | Type | Department | Care Team | Description | +--------+ + + + + | 07/04/ | Clinical | [facility] | Michael Fernandes | Leakage from urinary | | 2019 | Support | [address] | MD Yaw [address] | catheter, initial | | | | PRECIOUS [place] | PRECIOUS EM | encounter (HCC) | | | | [address] | [address] | (Primary Dx); | | | | [phone] | | Neurogenic bladder | +--------+ + + + + Social [...] + documented as of this encounter Progress Manju Acuna RN - 07/04/2018 10:00 AM PDTLate entry: Yesterday morning when Mian newton s in town for another appointment and he asked if I could take a look at his leaking cathete r. Upon assessment, I did not find any leaks. Catheter was to thigh with Statlock adhesive d russ and leg bag was secured to thigh with straps that scraped his thigh. I gave him a leg strap and instructed him on it's use if the Statlock device came off. I also gave him an add itional Statlock device as the one he had was peeling up on the edge. I changed his leg bag and secured it to his thigh. The Palermo brand we have in our office has straps that are t wice as wide and he said it was much more comfortable. A disposable washcloth was placed bet ween the bag and his skin for comfort. I advised him he can use a dry washcloth in the futur e. The suprapubic sight was examined and appeared to be healing well without any sign of inf ection (no redness, drainage, swelling or pain), sutures intact. He will return as previousl y scheduled for first suprapubic catheter change. .......................................... .Manju Mccartney RN on 07/05/18 at 17:58 documented in this encounter Plan of Treatment [...] [place] | | | | | | [id number] | | | | | | | | +--------+---------+ + + + documented as of this encounter Visit Diagnoses + + | Diagnosis | + + | Leakage from urinary catheter, initial encounter (HCC) - Primary | + + | Neurogenic bladder Neurogenic bladder, NOS | + + documented in this encounter"
--- OUTSIDE RECORDS SUMMARY | ~2019-08-23 | XMS | Encounter Summary ---
Demographics + + + | Address | [address] | | | [place] [address] | + + + | Home Phone | | + + + | Preferred Language | Unknown | + + + | Marital Status | Single | + + + | Orthodoxy Affiliation | EVANGELICAL | + + + [...] Team Providers + +------+ + | Care Central Supply Manager Name | Role | Phone | + +------+ + | Trevin Delacruz MD | PCP | | + +------+ + Encounter Details +--------+------+ + + + | Date | Type | Department | Care Team | Description | +--------+------+ + + + | 02/03/ | Lab | Laboratory at [facility] | | Other and | | 2014 | | [address] | | unspecified general | | | | [place], [place] | | psychiatric | | | | [address] | | examination; MS | | | | [phone] | | (multiple sclerosis) | | | | | | ([facility]); History of | | | | | [...] | | | | | | [place] [address] | | +--------+ + + + + [...] INTERPRETIVE | 70 - 180 nmol/L | [facility] | | | WHOLE | INFORMATION: Vitamin [...] | | | | | determined by [facility] | | | | | | Laboratories. See | | | | | | Compliance Statement B: | | | | | | [employer].TrademarkFly/CSPerformed | | | | | | by [employer],[address] | | | | | | [facility] | | | | | | [address] | | | | | | [phone].ISIS sentronics. | | | | | | com, [...] [facility] | [address] | [place], [place] | | | [facility] | | [address] | | + + + + + [...] | + + + + + | [employer] | [address] | [place] [address] | | | SERVICES, SPECIAL | [address] [...] Test performed | [facility] | | by: [employer] | REFERENCE LAB | | [address] [place] [address] | | |[place] [address] | | + + + + + [...] [facility] | [address] | [place] [address] | | | SERVICES, CORE | [address] [...] [facility] | [address] | [place] [address] | | | KAREN RODRIGUEZ | PARK [...] | + + + + + | [facility] | [address] | [place] [address] | | | SERVICES, CORE | PARK [...]
--- OUTSIDE RECORDS SUMMARY | ~2019-08-23 | XMS | Encounter Summary ---
Demographics + + + | Address | [address] | | | [place] [address] | + + + | Home Phone | | + + + | Preferred Language | Unknown | + + + | Marital Status | Single | + + + | Sabianism Affiliation | SABIANIST | + + + [...] Team Providers + +------+ + | Care Coil Connector Repairer Name | Role | Phone | [...] as of this encounter Progress Notes Interface, Quality Control Microbiologist In - 02/20/2006 2:22 AM [facility]: [facility] MULT[facility]LE SCLEROSIS CLINIC IDENTIFYING DATA: [...] eye. He was recently seen by an community health program coordinator who failed to find any abnormalities of [...] SOCIAL HISTORY: The patient was born in [place], and raised in [place], [place] where he resided until he was 22 years of age. Since that time, he has lived in [place] and [place]. He completed the 11th grade. 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 Serial 7s performed with occasional errors ([id number]). He is able to recall three of [...] and equal. Plantar response is flexor. Coordination, ozxdey-fi-fwth, and refq-my-xgew are performed without difficulty. Sensory examination, light [...] results and treatment options. Christian Maldonado M.D. [facility] [employer] Neu[facility] MM / HS [id number] / [id number] / [id number] / 1905 cc: Colin Vuong M.D. [address] [place] [address] [address] [place] [id number] Misael Lee M.D. [address] [place] [id number] signed by Interface, Quality Control Microbiologist In at 02/20/2006 2:22 AM PSTdocumented in this encounter Plan of Treatment +--------+ + + + + | Date | Type | Specialty | Care Team | Description | +--------+ + + + + | 10/31/ | Appointment | Hematology & | Onc, Gen [address] | | | 2020 | | Oncology | [place], | | | | | | [place] [address] | | +--------+ + + + + documented as of this encounter Visit Diagnoses Not on filedocumented in this encounter
--- OUTSIDE RECORDS SUMMARY | ~2019-08-23 | XMS | Encounter Summary ---
Demographics + + + | Address | [address] | | | [place] [address] | + + + | Home Phone [...] Author | [facility] | | | and Jadenana | + + + | Organization | [facility] | | | and [...] | | | | | [place] [address] | | + + + + + Care Team Providers + +------+ + | Care Medical Billing Instructor Name | Role | Phone | + +------+ + | Lexie Cagle | PCP | | | TOP INSTALLER | | | + +------+ + Reason for Visit + + + | Reason | Comments | + + + | Flank Pain | | + + + | Fatigue | | + + + Encounter Details +--------+---------+ + + + | Date | Type | Department | Care Team | Description | +--------+---------+ + + + | 01/21/ | Office | [facility] | Lexie Cagle | Flank pain (Primary | | 2019 | Visit | MEDICINE [address] | [address] | Dx); Paroxysmal | | | | Street [place] | [facility] | atrial fibrillation | | | | [place] [address] | [place] [address] | ([facility]); Chronic | | | | [phone] | [phone] | fatigue disorder; | | | | [...] this encounter Progress Notes Tsering Lexie Esteshleen, TOP INSTALLER - 01/21/2019 10:00 AM PDTFormatting of this [...] as ever. Underwent imaging at [facility] on Thursday 01/18, but has not yet [...] to meet with his new neurologist at [facility] on Monday. He feels like overa ll [...] follow-up with imaging done at [facility] to see if we can get results. 2. Refill provided on hydrocodone to be used for severe subacute flank and back pain. Ris ks associated with opioid medications reviewed with patient, he verbalized understanding. 3. He will follow-up with urology in regards to his neurogenic bladder 4. Keep appointment scheduled this Monday with neurology as well as psychiatry. 5. INR tomorrow at [facility] as planned. Reviewed signs and symptoms that would warrant emergent evaluation. Patient verbalized unde rstanding. Return in about 6 weeks (around 03/04/2019). Patient understands, accepts, and agrees with this plan. Over 23 minuntes spent in face to face time with this patient today. > 50% of time executive assistant to general counsel ing regarding the listed conditions, options for treatment, and possible risks, and coordina ting care. Please see assessment and plan for further details Lexie Cagle, DNP, TOP INSTALLER, AGNP-C This note was dictated using [employer] voice recognition software. Occasional wrong- word or [...] | | | | | | [place], [place] | | | | | | [address] | | | | | | | [...]
--- OUTSIDE RECORDS SUMMARY | ~2019-08-23 | XMS | Encounter Summary ---
Demographics + + + | Address | [address] | | | [place] [address] | + + + | Home Phone [...] | Author | [facility] | | | and Jadenana | + + + | Organization | [facility] [...] | | | | | [place] [address] | | + + + + + Care Team Providers + +------+ + | Care Hogshead Roller Name | Role | Phone | + +------+ + | Lexie Cagle | PCP | | | DIE CUT OPERATOR | | | + +------+ + Reason for Visit + + + | Reason | Comments | + + + | Anticoagulation | | + + + Encounter Details +--------+ + + + + | Date | Type | Department | Care Team | Description | +--------+ + + + + | 01/22/ | Anti-coag | [facility] | Lexie Cagle | | | 2019 | Telephone | MEDICINE [address] | [address] | | | | | [facility] | [facility] | | | | | [place] [address] | [place] [address] | | | | | [phone] | [phone] | | | | | | | [...] mg daily, recheck i n 1 week [facility] Daisy huggins RN - 01/22/2019 9:53 [...] 2020 | Visit | | [address] | | | | | | [place]OUS [place] | | | | | | [address] | | | | | | | [...]
--- OUTSIDE RECORDS SUMMARY | ~2019-08-23 | XMS | Encounter Summary ---
Demographics + + + | Address | [address] | | | [place] [address] | + + + | Home Phone [...] | Author | [facility] | | | and Jadenana | + + + | Organization | [facility] | | [...] | | | | | [place] [address] | | + + + + + Care Team Providers + +------+ + | Care Plant Cytologist Name | Role | Phone | + [...] | SLEEP DISORDER [address] | [address] | Dx) | | | | [address] [place] | PRECI[place] | | | | | [place] [address] | [address] | | | | | [phone] | | | +--------+---------+ + + + [...] type: ResMed F20 full face mask DME: [facility] in [place] pressure: 4-15 cm Median: 12.0 cm 95%: [...] wakeup. I had him work with a certified control systems technician on his mask fit. His st [...] m Assessment: Problem #1: OBSTRUCTIVE SLEEP APNEA (JNS14-Z39.33) He has mild apnea. This is controlled [...] lola ropriate paperwork. Twenty-five minutes were spent qzrx-sv-ueww, with the majority of time spent in [...] 2019 | Visit | | [address] [facility] | | | | | | [place] | | | | | | [address] | | | | | | | | +--------+---------+ + + + documented as of this encounter Visit Diagnoses + + | Diagnosis | + + | CHRISTEN on CPAP - Primary Obstructive sleep apnea (adult) (pediatric) | + + documented in this encounter"
--- OUTSIDE RECORDS SUMMARY | ~2019-08-23 | XMS | Encounter Summary ---
Demographics + + + | Address | [address] | | | [place] [address] | + + + | Home Phone | | + + + | Preferred Language | Unknown | + + + | Marital Status | Single | + + + | Yarsanism Affiliation | SHINTO | + + + [...] + +------+ + | Care Director Of Marketing Name | Role | Phone | + [...] | Visit | Reconstructive | FLORI [address] [facility] | (Primary Dx); S/P | | | | Surgery at [facility] [address] | panniculectomy | | | | Kayli Fitzpatrick | [place], [place] | | | | | Mailcode: [facility] | [phone] | | | | | [facility] | [phone] | | | | | and Healing, | | | | | | [facility] | | | | | | Floor [place], [place] | | | | | | [address] | | | | | | [phone] | | | +--------+---------+ + + + [...] Cate Bright PA-C - 03/11/2015 1:04 PM [facility] Division of Plastic and Reconstructive Surgery Post [...] PA-C Division of Plastic & Reconstructive Surgery [facility] 03/11/2015 1:04 PM documented in this en counter Plan of Treatment +--------+ + + + + | Date | Type | Specialty | Care Team | Description | +--------+ + + + + | 10/31/ | Appointment | Hematology & | Onc, Gen [address] | | | 2019 | | Oncology | [address] [place], | | | | | | [place] [address] | | +--------+ + + + + documented as of this encounter Visit Diagnoses + + | Diagnosis | + + | Lipodystrophy - Primary | + + | S/P panniculectomy | + + documented in this encounter"
--- OUTSIDE RECORDS SUMMARY | ~2019-08-23 | XMS | Encounter Summary ---
Demographics + + + | Address | [address] | | | [place] [address] | + + + | Home Phone [...] + | Author | [facility] | | | and Jadenana | + + + | Organization | [facility] | | [...] | | | | | [place] [address] | | + + + + + Care Team Providers + +------+ + | Care Commercial Subcontractor Name | Role | Phone | + +------+ + | Lexie Cagle | PCP | | | SIGN PAINTER | | | + +------+ + Encounter Details +--------+ + + + + | Date | Type | Department | Care Team | Description | +--------+ + + + + | 06/01/ | Hospital | [facility] | Cagle Lexie | Acute pain of left | | 2019 | Encounter | [facility] | Arleen, SIGN PAINTER [address] | knee; Chronic pain | | | | [address] [place] | [address] [place] | of right knee | | | | [place], [place] | [place] [address] | | | | | [address] | [phone] | | | | | [phone] | | | +--------+ + + + [...] [place] | | | | | | [id number] | | | | | | | [...]
--- OUTSIDE RECORDS SUMMARY | ~2019-08-23 | XMS | Encounter Summary ---
Demographics + + + | Address | [address] | | | [place] [address] | + + + | Home Phone [...] | Author | [facility] | | | and Jadenana | + + + | Organization | [facility] | [...] | | | | | [place] [address] | | + + + + + Care Team Providers + +------+ + | Care Spray Painting Machine Operator Name | Role | Phone [...] Medicine | CHRISTEN | Abdoulaye Lima | [address] | | | Required | | (obstructive | MD [address] | [place] | | | | | sleep | [place] | [place], | | | | | apnea) | [facility] | [place] [address] | | | | | G25.81 | [place], [place] | Phone: | | | | | (ICD-10-CM) | [address] | [phone] | | | | | - [phone] | Phone: | Fax: | | | | | (ICD-9-CM) - | [phone] | [phone] | | | | | [place] | Fax: | | | | | | (restless | [phone] | | | | | | legs | | | | | | | syndrome) | | | | | | | Procedures | | | | | | | MT POLYSOM | | | | | | | 6/>YRS SLEEP | | | | | | | 4/> ADDL | | | | | | | SENA ATTND | | | | | | | MT POLYSOM | | | | | | [...] | Medicine / | (adult) | Ileana Fitzpatrick | Adalid Aguilera | | | | Sleep | (pediatric) | ANNA | [address] | | | | Medicine | [address] | [place] [address] | PRECIOUS [place] | | | | | [address] [place] | Phone: | [phone] Phone: | | | | | CHRISTAL ESPINAL | [phone] | [phone] | | | | | EQUIP | Fax: | Fax: | | | | | Procedures | [phone] | [phone] | | | | | NEW PATIENT | | | +--------+--------+ + + + + Encounter Details +--------+---------+ + + + | Date | Type | Department | Care Team | Description | +--------+---------+ + + + | 06/04/ | Office | [facility] | Abdoulaye Bauer | CHRISTEN (obstructive | | 2020 | Visit | SLEEP DISORDER [address] | [address] | sleep apnea) | | | | [address] [place] | [address] [place] [address] [place] | (Primary Dx); RLS | | | | [place] [address] | [place] [address] | (restless legs | | | | [phone] | [phone] | syndrome); Low | | | | [...] types of CPAP. Your doctor or CPAP solar maintenance technician will help you decide whic h [...] sleep stage, and snoring. Date Last Reviewed: 10/25/201619990754-0635 [employer]. [address] [place] [address], [place] [address]. All righ ts reserved. This information is [...] Insomnia Severity Index Insomnia Severity Index 17 Bryson Sleepiness Scale 1. Sitting and reading 1 [...] + + +--------+ + + | * [facility] - | Outpatient | [...] ST. | [address] | [place] | [phone] | | [facility] | | [address] | | | - LABORATORY | | [...]
--- OUTSIDE RECORDS SUMMARY | ~2019-08-23 | XMS | Encounter Summary ---
Demographics + + + | Address | [address] | | | [place] [address] | + + + | Home Phone | | + + + | Preferred Language | Unknown | + + + | Marital Status | Single | + + + | Hoahaoism Affiliation | JAINISM | + + + [...] Providers + +------+ + | Care Digital Librarian Name | Role | Phone | [...] + + | 11/06/ | Hospital | [facility] GI PROCEDURE | Emilie Sanchez, | | | 2014 | Encounter | [address] | | | | | | [place] Mailcode: [facility] | | | | | | [facility] | | | | | | Health and Healing, | | | | | | Building 1 | | | | | | [place], [place] | | | | | | [address] | | | | | | [phone] | | | +--------+ + + + [...] business hours, or on weekends and holiday [facility] [phone] ext. [phone] and have the GI doctor christian science practitioner paged. The provider who performed your procedure [...] | | | | | | [place] [address] | | +--------+ + + + + [...] 2:07 | | | | | Starting [facility] 11/06/14 at 1326, | | PM PDT [...]
--- OUTSIDE RECORDS SUMMARY | ~2019-08-23 | XMS | Encounter Summary ---
Demographics + + + | Address | [address] | | | [place] [address] | + + + | Home Phone [...] | Author | [facility] | | | and Jadenana | + + + | Organization | [facility] | [...] | | | | | [place] [address] | | + + + + + Care Team Providers + +------+ + | Care Subpoena Server Name | Role | Phone | + +------+ + | Lexie Cagle | PCP | | | EVAPORATOR REPAIRER | | | + +------+ + [...] | | Services | Therapy | | [facility] | | | Required | | Osteoarthrit | Phill, | PHYSICAL | | | | | is of both | MD [address] | [address]APY [address] | | | | | knees, | [address] | [place]Y | | | | | unspecified | [place], | [place], [place] | | | | | osteoarthrit | [place] | [address] | | | | | is type | [address] | Phone: | | | | | Chondrocalci | Phone: | [phone] | | | | | nosis of | [phone] | Fax: | | | | | knee, left | Fax: | [phone] | | | | | Chondrocalci | [phone] | | | | | | nosis [...] | | | | | Chronic | EVAPORATOR REPAIRER [address] | | | | | pain of | [address] | [place], | | | | | right knee | [place], | [place] | | | | | | [place] [address] | [address] | | | | | | Phone: | Phone: | | | | | | [phone] | [phone] | | | | | | Fax: | Fax: | | | | | | [phone] | [phone] | +--------+ + + + + + Encounter Details +--------+---------+ + + + | Date | Type | Department | Care Team | Description | +--------+---------+ + + + | 07/04/ | Office | [facility] | Trevin Xiao | Osteoarthritis of | | 2018 | Visit | ORTHOPEDIC SURGERY | MD [address] | both knees, | | | | [address] [facility] | [facility] | unspecified | | | | [place], [place] | [place] [address] | osteoarthritis type | | | | [address] | [phone] | (Primary Dx); | | | | [phone] | | Chondrocalcinosis of | | | [...] specific instruc tions. Acupuncture Acupuncture is a [id number]-[id number] practice. Providers insert thin needles in specific parts o f the body. Research shows that it can help to relieve the pain of arthritis. For more information or to find a providerin your area, contact the [employer] [employer]upuncture. Its website [...] biofeedback, stress management, and hypnosis. Ask your [facility] provider for more information about these therapies. For more information about many of these methods, contact the National Center for [facility] tary and Alternative Medicine ([facility]) at https://[facility].nih.gov. Date Last Reviewed: 08/25/201719992595-7075 [employer]. [address] [place] [address]. All righ ts reserved. This information is not intended as a substitute for professional medical care. Always follow your healthcare professional's instructions. documented in this encounter Progress Notes Trevin Xiao MD - 07/04/2018 9:00 AM PDTFormatting of this note might be dif ferent from the original. [facility] HISTORY AND PHYSICAL EXAMINATION Pt. [...] catheter placement; Surgeon: Michael Fernandes MD; Location: [facility] MAIN OR CHOLECYCTOSTOMY CYSTOSCOPY N/A 04/19/2018 Procedure: Cystoscopy, bladder Botox, injection of urethral bulking agent; Surgeon: Gina Fernandes MD; Location: [facility] MAIN OR GASTRIC BYPASS SURGERY [...] made to ensure accuracy; however, inadvertent computerized trauma doctor errors may be pre sent. I appreciate [...] [place] | | | | | | [place] | | | | | | [address] | | | | | | | [...]
--- OUTSIDE RECORDS SUMMARY | ~2019-08-23 | XMS | Encounter Summary ---
Demographics + + + | Address | [address] | | | [place] [address] | + + + | Home Phone | | + + + | Preferred Language | Unknown | + + + | Marital Status | | + + + | Mormon Affiliation | Unknown | + + + | Race | Unknown | + + + | Ethnic Group | Unknown | + + + Author + + + | Author | [facility] | | | and Jadenana | + + + | Organization | [facility] | | | and Jadenana [...] | | | | | [place] [address] | | + + + + + Care Team Providers + +------+ + | Care Transportation Modeler Name | Role | Phone | + +------+ + | Lexie Cagle | PCP | | | GEOTHERMAL OPERATING ENGINEER | | | + +------+ + Reason for Visit + + + | Reason | Comments | + + + | Catheter Problem | | | (Leaking) | | + + + Encounter Details +--------+ + + + + | Date | Type | Department | Care Team | Description | +--------+ + + + + | 07/04/ | Clinical | [facility] | Michael Fernandes | Leakage from urinary | | 2019 | Support | [address] | MD Yaw [address] | catheter, initial | | | | PRECIOUS [place] | PRECIOUS EM | encounter (HCC) | | | | [address] | [address] | (Primary Dx); | | | | [phone] | | Neurogenic bladder | +--------+ + [...] and secured it to his thigh. The Loiza brand we have in our office has [...] [place] | | | | | | [id number] | | | | | | | | +--------+---------+ + + + documented as of this encounter Visit Diagnoses + + | Diagnosis | + + | Leakage from urinary catheter, initial encounter (HCC) - Primary | + + | Neurogenic bladder Neurogenic bladder, NOS | + + documented in this encounter"
--- OUTSIDE RECORDS SUMMARY | ~2019-08-23 | XMS | Encounter Summary ---
Demographics + + + | Address | [address] | | | [place] [address] | + + + | Home Phone | | + + + | Preferred Language | Unknown | + + + | Marital Status | Single | + + + | Roman Catholic Affiliation | SYNAGOGUE | + + + [...] Providers + +------+ + | Care Manager Strategy Name | Role | Phone | + [...] as of this encounter Progress Notes Interface, Screw Machine Tender In - 09/27/2005 1:04 AM PDT [place] [facility] OUTPATIENT CONSULTATION REPORT [address] [place], [place] [address] or PHONE CONSULTATION Referred From [...] protein that his gets for him at [employer]. The reason for the call today is [...] is at work. The protein shake from [employer], some yogurt, some cottage cheese and again, [...] Hamilton R.D., L.D. Registered Dietitian /yash A [id number] cc: Colin Posada M.D. [id number] signed by Interface, Screw Machine Tender In at 09/27/2005 1:04 AM PDTd ocumented [...] | | | | | | [place] [address] | | +--------+ + + + + documented as of this encounter Visit Diagnoses Not on filedocumented in this encounter"
--- OUTSIDE RECORDS SUMMARY | ~2019-08-23 | XMS | Encounter Summary ---
Demographics + + + | Address | [address] | | | [place] [address] | + + + | Home Phone | | + + + | Preferred Language | Unknown | + + + | Marital Status | Single | + + + | Islam Affiliation | HOAHAOISM | + + + [...] Team Providers + +------+ + | Care Prosthetic Assistant Name | Role | Phone | [...] | | | | MRI BRAIN | [place], [place] | for Health | | | | | MULTIPLE | [address] | and Healing, | | | | | SCLEROSIS | Phone: | Building 1, | | | | | WWO CONTRAST | [phone] | 3rd Floor | | | | | | Fax: | [facility] [place] | | | | | | [phone] | [address] | | | | | | | Phone: | | | | | | | [phone] | | | | | | | Fax: | | | | | | | [phone] | +--------+--------+ + + + + Reason [...] & | [address] | ([facility]) (Primary Dx); | | | | Healing [address] [place], | Chronic low back | | | | [place] Mailcode: CH8C | [place] [address] | pain without | | | | [place] for [facility] | [phone] | sciatica, | | | | and Healing, | | unspecified back | | | | Building | | pain laterality | | | | Floor [place], [place] | | | | | | [address] | | | | | | [phone] | | | +--------+---------+ + + + [...] CLINIC Medical Problems 1. Multiple sclerosis Avonex 3154-9258 (treatment for 2 years) Rebif for 2.5 [...] replaced with paddles and non- rechargeable battery ([employer] stimulator) in spring 2016. Battery replaced with [...] He reports he will be moving to [place]. His daughter lives in [place]. He plans to drake prajapati seeing docs in the [place] area for his specialty care. He has [...] oral tablet Take 5,000 Units by [facility] once daily. cyanocobalamin 1,000 mcg/mL injection [...] 4 extremities. Cerebellar te sting shows slowed [id number]. Gait: Antalgic casual gait, very difficult to [...] | | | | | | [place] [address] | | +--------+ + + + + [...] | Preliminary: Jose Gaxiola MD Dictation initiated: Joes Gaxiola MD 01/24/2018 9:30 | | PM [...]
--- OUTSIDE RECORDS SUMMARY | ~2019-08-23 | XMS | Encounter Summary ---
Demographics + + + | Address | [address] | | | [place] [address] | + + + | Home Phone | | + + + | Preferred Language | Unknown | + + + | Marital Status | Single | + + + | Shinto Affiliation | PRESYBETERIAN | + + + [...] Team Providers + +------+ + | Care Armature Winder Helper Repair Name | Role | Phone | [...] | | | | | surgery | [address] | [address] | | | | | Abdominal | [place], [place] | Mailcode: | | | | | pannus | [address] | [facility] | | | | | Excess skin | | for Health | | | | | | | and Healing, | | | | | PANNICULECTO | | Building 1, | | | | | MY | | 5th Floor | | | | | Procedures | | [place], [place] | | | | | CONSULT TO | | [address] | | | | | SURGERY - | | Phone: | | | | | PLASTICS | | [phone] | +--------+--------+ + + + + Encounter Details +--------+---------+ + + + | Date | Type | Department | Care Team | Description | +--------+---------+ + + + | 04/06/ | Office | Plastic and | Neto Lockhart, | Intertriginous | | 2016 | Visit | Reconstructive | MD [place] MERCADO Srikanth | candidiasis (Primary | | | | Surgery at [facility] [address] | Dx); Lipodystrophy | | | | [address] | [place], [place] | | | | | Mailcode: [facility] | [address] | | | | | [facility] | [phone] | | | | | and Healing, | | | | | | [facility] | | | | | | Floor [place], [place] | | | | | | [address] | | | | | | [phone] | | | +--------+---------+ + + + [...] the i tchiness. Department of Plastic Surgery [facility] 04/06/2015 documented in this en counter Plan of Treatment +--------+ + + + + | Date | Type | Specialty | Care Team | Description | +--------+ + + + + | 10/31/ | Appointment | Hematology & | Onc, Gen [address] | | | 2020 | | Oncology | [place], | | | | | | [place] [address] | | +--------+ + + + + documented as of this encounter Visit Diagnoses + + | Diagnosis | + + | Intertriginous candidiasis - Primary Candidiasis of skin and nails | + + | Lipodystrophy | + + documented in this encounter
--- OUTSIDE RECORDS SUMMARY | ~2019-08-23 | XMS | Encounter Summary ---
Demographics + + + | Address | [address] | | | [place] [address] | + + + | Home Phone | | + + + | Preferred Language | Unknown | + + + | Marital Status | Single | + + + | Zoroastrian Affiliation | YAZDANISM | + + + [...] Team Providers + +------+ + | Care Patient Care Director Name | Role | Phone | [...] of this encounter Progress Notes Interface, Logistics Solution Manager In - 10/23/2005 3:09 AM PDT [place] [facility] OUTPATIENT CONSULTATION REPORT [address], [place] [address] or Referred From and Faxed [...] supplement. Shelly Hamilton R.D., LNatalieD. /alvaro P [phone] Fax copy to Colin Posada M.D.Electronically signed by Interface, Logistics Solution Manager In at 3:09 AM PDTdocumented in this encounter Plan of Treatment +--------+ + + + + | Date | Type | Specialty | Care Team | Description | +--------+ + + + + | 10/31/ | Appointment | Hematology & | Onc, Gen [address] | | | 2019 | | Oncology | [address] [place], | | | | | | [place] [address] | | +--------+ + + + + documented as of this encounter Visit Diagnoses Not on filedocumented in this encounter"
--- OUTSIDE RECORDS SUMMARY | ~2019-08-23 | XMS | Encounter Summary ---
Demographics + + + | Address | [address] | | | [place] [address] | + + + | Home Phone | | + + + | Preferred Language | Unknown | + + + | Marital Status | Single | + + + | Jew Affiliation | RELIGIOUS | + + + [...] Team Providers + +------+ + | Care Element Winding Machine Tender Name | Role | Phone [...] | | | | | Procedures | [place], [place] | | | | | | MRI BRAIN | [address] | | | | | | MULTIPLE | Phone: | | | | | | SCLEROSIS | [phone] | | | | | | WWO CONTRAST | Fax: | | | | | | | [phone] | | +--------+--------+ + + + + [...] (multiple | | 2018 | Visit | [place] [facility] & | [address] | sclerosis) ([facility]) | | | | Healing [address] | [address] [place], | (Primary Dx); | | | | Ave Mailcode: CH8C | [place] [address] | Chronic low back | | | | Center for [facility] | [phone] | pain without | | | | and Healing, | | sciatica, | | | | Building | | unspecified back | | | | Floor [place], [place] | | pain laterality; | | | | [address] | | 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 Multiple sclerosis Avonex 3447-4249 (treatment for 2 years) Rebif for 2.5 [...] replaced with paddles and non- rechargeable battery ([employer] stimulator) in spring 2016. 9. CHRISTEN INTERVAL [...] tablet Take 5,000 Units by [facility] once daily. cyanocobalamin 1,000 mcg/mL [...] all 4 extremities. Cerebellar testing shows slowed wbanix-wr-lrii. Gait: Antalgic ca sual gait, very difficult [...] | | | | | | [place] [address] | | +--------+ + + + + + +---------+--------+ + + | Name | Type | Priori | Associated Diagnoses | Order Schedule | | | | ty | | | + +---------+--------+ + + | MRI BRAIN MULTIPLE | Imaging | Routin | MS (multiple | Expected: | | SCLEROSIS WWO | | e | sclerosis) ([facility]) | 09/25/2017, Expires: | | CONTRAST | [...]
--- OUTSIDE RECORDS SUMMARY | ~2019-08-23 | XMS | Encounter Summary ---
Demographics + + + | Address | [address] | | | [place] [address] | + + + | Home Phone | | + + + | Preferred Language | Unknown | + + + | Marital Status | Single | + + + | Evangelical Affiliation | LATTER DAY | + + [...] Team Providers + +------+ + | Care Tearoom Hostess Name | Role | Phone | + [...] + + | 11/02/ | Hospital | [facility] | Nurse2, Hem [address] | | | 2018 | Encounter | Clinics at S | [address] | | | | | [facility] | [place] [address] | | | | | for Health and | Bdrm2, Hem [address] | | | | | Healing [address] | [address] [place], | | | | | [place], [place] | [place] [address] | | | | | [address] | | | | | | [phone] | | | +--------+ + + + [...] | | | | | | [place] [address] | | +--------+ + + + + [...] 9:22 | | | | | dose, [facility] 11/02/17 at 0915 | | AM PDT | | | | + +--------+ +--------+------+------+ +---+---+ | | | +---+---+ + +-------+ +-------+---+---+ | loratadine (CLARITIN) tablet 10 | Given | 11/03/19 | 10 mg | | | | mg 10 mg, oral, NEEDED, 1 | | 18 9:21 | | | | | dose, Starting [facility] 11/02/17 at | | AM PDT | | | | | 0904, Until [facility] 11/02/17 at 0921, | | | | | | | Give instead of diphenhydrAMINE | | | | | | | if patient does not have a production truck driver | | | | | [...]
--- OUTSIDE RECORDS SUMMARY | ~2019-08-23 | XMS | Encounter Summary ---
Demographics + + + | Address | [address] | | | [place] [address] | + + + | Home Phone | | + + + | Preferred Language | Unknown | + + + | Marital Status | Single | + + + | Congregational Affiliation | CHEONDOISM | + + + [...] Team Providers + +------+ + | Care Meat Team Lead Name | Role | Phone | [...] + + | 03/03/ | Hospital | [facility] [address] | Nteo Lockhart, | | | 2015 | Encounter | [address] | [address] | | | | | [address]/[address] | [address] | | | | | [place], | [place], [place] | | | | | [place] [address] | [address] | | | | | [phone] | [phone] | | | | | | | [...] be sent through Care Everywhere.SURGICAL DRAIN CARE (COMORAN)documented in this encounter Medications at Time of [...] | | | | | | [place] [address] | | +--------+ + + + + [...] | | Attending Surgeon: Neto Lockhart MD Electron Beam Machine Welder Setter(s): Nasrin | | Tiesha Becerra MD Anesthesia: [...] | mL.Estimated Blood Loss: 50 mL.Drains: Two 19-Icelandic Chito drains - one drain along | [...] amount of rash around his umbilicus. A Rjpwp-bw-smh | | abdominoplasty with monsplasty and liposuction [...] patient's abdominal wall as regional blocks. Two 19-Icelandic | | Blakes were then placed in [...] BERNADETTE Lockhart/KAILEYLDD: 03/03/2015 12:30:41DT: 03/03/2015 13:44:15Job #: [id number] | | | |At the end of [...] |SC/MODL | | | | | | /[id number] | + + ANTIBODY SCREEN (03/03/2015 6:24 [...] | + + + + + | [facility] | [address] | [place] [address] | | | SERVICES, | [address] | | | | TRANSFUSION MEDICINE [...] | + + + + + | [facility] | [address] | [place] [address] | | | MICHAEL | EULALIA TUBBS [...]
--- OUTSIDE RECORDS SUMMARY | ~2019-08-23 | XMS | Encounter Summary ---
Demographics + + + | Address | [address] | | | [place] [address] | + + + | Home Phone | | + + + | Preferred Language | Unknown | + + + | Marital Status | Single | + + + | Quaker Affiliation | CONGREGATIONAL | + + + [...] Team Providers + +------+ + | Care Mine Safety Engineer Name | Role | Phone | + +------+ + | Jose Hameed MD | PCP | | + +------+ + Encounter Details +--------+ + + + + | Date | Type | Department | Care Team | Description | +--------+ + + + + | 11/07/ | Telephone | [facility] | Emilie Sanchez, | | | 2014 | | [facility] [address] | | | | | | [address] Mailcode: | | | | | | [facility] | | | | | | Health and Healing, | | | | | | Building 2 | | | | | | [place], [place] | | | | | | [address] | | | | | | [phone] | | | +--------+ + + + [...] | | | | | | [place] [address] | | +--------+ + + + + documented as of this encounter Visit Diagnoses Not on filedocumented in this encounter"
--- OUTSIDE RECORDS SUMMARY | ~2019-08-23 | XMS | Encounter Summary ---
Demographics + + + | Address | [address] | | | [place] [address] | + + + | Home Phone | | + + + | Preferred Language | Unknown | + + + | Marital Status | Single | + + + | Episcopalian Affiliation | CONGREGATION | + + + [...] Team Providers + +------+ + | Care Hammer Setter Name | Role | Phone | [...] | | 2014 | | Center at [facility] [address] | ACNP [address] | | | | | [address] | Ave [place], [place] | | | | | Mailcode: Center | [address] | | | | | [facility] and | | | | | | [facility] 2 | | | | | | [place], [place] | | | | | | [address] | | | | | | | [...] | | | | | | [place] [address] | | +--------+ + + + + documented as of this encounter Visit Diagnoses Not on filedocumented in this encounter"
--- OUTSIDE RECORDS SUMMARY | ~2019-08-23 | XMS | Encounter Summary ---
Demographics + + + | Address | [address] | | | [place] [address] | + + + | Home Phone [...] Author | [facility] | | | and Jadenana | + + + | Organization | [facility] | | | and Jadenana [...] | | | | | [place] [address] | | + + + + + Care Team Providers + +------+ + | Care Instructor Industrial Design Name | Role | Phone | + +------+ + | Lexie Cagle | PCP | | | LOFTSMAN/WOMAN | | | + +------+ + Encounter [...] [place] | | | | | [place] [address] | [place] [address] | | | | | [phone] | [phone] | | | | | | | [...] of this encounter Progress Notes [facility] Security Officer - 02/01/2019 8:34 AM PSTPatient notified.Electronically s igned by Kerline [facility] Security Officer at 02/01/2019 9:33 AM KRISTENWoodLexie hankins APRN [...] 2020 | Visit | | [address] | | | | | | PRECIOUS [place] | | | | | | [address] | | | | | | | [...] + | REFERENCE LAB | [address] | [place] | [phone] | | [facility] | | [address] | | + + + + + documented in this encounter Visit Diagnoses Not on filedocumented in this encounter"
--- OUTSIDE RECORDS SUMMARY | ~2019-08-23 | XMS | Encounter Summary ---
Demographics + + + | Address | [address] | | | [place] [address] | + + + | Home Phone | | + + + | Preferred Language | Unknown | + + + | Marital Status | | + + + | Baptism Affiliation | Unknown | + + + | Race | Unknown | + + + | Ethnic Group | Unknown | + + + Author + + + | Author | [facility] | | | and Jadenana | + + + | Organization | [facility] | | | and Jadneana | + + + | Address | [...] | | | | | [place] [address] | | + + + + + Care Team Providers + +------+ + | Care Vinyl Welder And Fabricator Name | Role | Phone | + +------+ + | Lexie Cagle | PCP | | | INDIRECT FIRE INFANTRYMAN | | | + +------+ + Reason for Visit + + + | Reason | Comments | + + + | Lab Order | | + + + Encounter Details +--------+ + + + + | Date | Type | Department | Care Team | Description | +--------+ + + + + | 09/24/ | Telephone | [facility] | Lexie Cagle | Lab Order | | 2019 | | MEDICINE [address] | | | | [address] | [facility] | | | | | [place] [address] | [place] [address] | | | | | [phone] | [phone] | | | | | | | [...] 2020 | Visit | | [address] | | | | | | PRECIOUS [place] | | | | | | [address] | | | | | | | | +--------+---------+ + + + documented as of this encounter Visit Diagnoses Not on filedocumented in this encounter"
--- OUTSIDE RECORDS SUMMARY | ~2019-08-23 | XMS | Encounter Summary ---
Demographics + + + | Address | [address] | | | [place] [address] | + + + | Home Phone | | + + + | Preferred Language | Unknown | + + + | Marital Status | Single | + + + | Christian Affiliation | CONGREGATION | + + + [...] Team Providers + +------+ + | Care Battery Plate Remover Name | Role | Phone | + [...] | sclerosis | [address] | [address] | | | | | (HCC) | Nate | [place] | | | | | Procedures | Eduarda James | [place], [place] | | | | | CONSULT TO | [place], [place] | [address] | | | | | HEMATOLOGY / | [address] | Phone: | | | | | ONCOLOGY | Phone: | [phone] | | | | | | [phone] | Fax: | | | | | | Fax: | [phone] | | | | | | [phone] | | +--------+--------+ + + + + [...] (HCC) (Primary Dx) | | | | [facility] | [place] | | | | | for Health and | [place] [address] | | | | | Healing [address] | [phone] | | | | | [place] | | | | | | [address] | | | | | | [phone] | | | +--------+---------+ + + + [...] for the benefit of anti-CD20 therapy in oroin ents with multiple sclerosis including several positive [...] Psy: Appropriate Patrick Huff MD, VELASQUEZ SHOEMAKER vice president network development, Pathology, and Pediatrics [facility] [place] documented in this encounter Plan of Treatment +--------+ + + + + | Date | Type | Specialty | Care Team | Description | +--------+ + + + + | 10/31/ | Appointment | Hematology & | Onc, Gen [address] | | | 2020 | | Oncology | [place], | | | | | | [place] [address] | | +--------+ + + + + documented as of this encounter Visit Diagnoses + + | Diagnosis | + + | Multiple sclerosis (HCC) - Primary Multiple sclerosis | + + documented in this encounter
--- OUTSIDE RECORDS SUMMARY | ~2019-08-23 | XMS | Encounter Summary ---
Demographics + + + | Address | [address] | | | [place] [address] | + + + | Home Phone [...] Author | [facility] | | | and Jadenana | + + + | Organization | [facility] [...] | | | | | [place] [address] | | + + + + + Care Team Providers + +------+ + | Care Cigar Making Machine Supervisor Name | Role | Phone | + +------+ + | Lexie Cagle | PCP | | | STRAW HAT BRIM RAISER OPERATOR | | | + +------+ + [...] | | PRE[place] | [place] | | | | | [address] | [address] | | | | | [phone] | | | +--------+ + + + [...] 2019 | Visit | | [address] | | | | | | [place] | | | | | | [id number] | | | | | | | | +--------+---------+ + + + documented as of this encounter Visit Diagnoses Not on filedocumented in this encounter"
--- OUTSIDE RECORDS SUMMARY | ~2019-08-23 | XMS | Encounter Summary ---
Demographics + + + | Address | [address] | | | [place] [address] | + + + | Home Phone | | + + + | Preferred Language | Unknown | + + + | Marital Status | Single | + + + | Samaritan Affiliation | PROTESTANT | + + + [...] Team Providers + +------+ + | Care Coloring Room Worker Name | Role | Phone | + +------+ + | Jose Hameed MD | PCP | | + +------+ + Encounter Details +--------+ + + + + | Date | Type | Department | Care Team | Description | +--------+ + + + + | 11/11/ | Abstract | Digestive Health | Clinic, Surgery | | | 2015 | | [place] [facility] [address] | | | | | | [place] | | | | | | Mailcode: [place] | | | | | | for Health and | | | | | | Healing, [address] | | | | | | [place], [place] | | | | | | [address] | | | | | | [phone] | | | +--------+ + + + [...] 2020 | | Oncology | [place], | | | | | | [place] [address] | | +--------+ + + + + documented as of this encounter Visit Diagnoses Not on filedocumented in this encounter"
--- OUTSIDE RECORDS SUMMARY | ~2019-08-23 | XMS | Encounter Summary ---
Demographics + + + | Address | [address] | | | [place] [address] | + + + | Home Phone [...] | Author | [facility] | | | and Jadenana | + + + | Organization | [facility] | | | and [place]aden[place] [...] | | | | | [place] [address] | | + + + + + Care Team Providers + +------+ + | Care Elementary Educator Name | Role | Phone | + +------+ + | Lexie Cagle | PCP | | | DEVOPS | | | + +------+ + Encounter [...] | | | | | [place] [address] | [place] [address] | | | | | [phone] | [phone] | | | | | | | [...] of this encounter Progress Notes Kerline Irizarry Accounts Clerk - 02/13/2019 9:36 AM PSTCalled patient and [...] 2020 | Visit | | [address] | | | | | | [place] | | | | | | [address] | | | | | | | [...]
[~2019-08-23 18:29] MED LIST changes: +CEFUROXIME250 MG PO; +COUMADIN10 MG PO
--- OUTSIDE RECORDS SUMMARY | 2019-08-23 18:32 | XMS ---
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 CARTER Security Program Facilitator Events No recent Security Events currently on file CRITERIA MET - JOSEPHP CARE PROVIDERS LUCIO TAO Dentist: Molecular Technologist 04/23/2019-Current PHONE: [phone] AARON COLON Nurse Practitioner Current PHONE: [phone] Branden has no Care Guidelines for this patient. Kuldeep VISIT COUNT (12 MO.) 1 Florencio Lerner DIONI Garcia TOTAL 3 NOTE: Visits indicate total known visits. 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 - Urinary tract infection, site not specified - Encounter for fitting and adjustment of urinary device - Urinary tract infection, site not specified - Encounter for fitting and adjustment of urinary device 12/28/2018 18:12 Legarnulfo Lopez [place] TYPE: Emergency DIAGNOSES: - shelter (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 - Contusion of left elbow, initial encounter - Unspecified open wound of left elbow, initial encounter - LEFT ARM LACERATION INPATIENT VISIT TRACKING (12 MO.) No inpatient visits to display in this time frame [id number]
[2019-08-23] MEDS ORDERED: ESCITALOPRAM OX20 MG PO (18:44)
[2019-08-23] MEDS ORDERED: KEFLEX500 MG PO (21:33)
== END 2019-08-23 21:56 | disposition home or self-care (01) ==
LOC: ED 18:29
DX: N39.0 Urinary tract infection, site not specified (principal); R60.0 Localized edema; Z87.891 Personal history of nicotine dependence; Z79.899 Other long term (current) drug therapy
CPT/HCPCS: 80053; 81001; 85025; 85610; 85730; 87077; 87088; 87186; 93970; 99284-25

== ENCOUNTER 2021-04-19 14:12 | Emergency (ER) | payer MEDICARE ==
[~2021-04-19] VITALS: Ht 177.8 cm; Wt 93.0 kg
[~2021-04-19 14:12] MED LIST changes: +AMANTADINE100 MG PO; +ATORVASTATIN CA40 MG PO; +BUPRENORPHINE HC2 MG SL; +BUPROPION XL300 MG PO; -COUMADIN10 MG PO; +CYANOCOBAL1000 MCG/M IM; +ESCITALOPRAM OX20 MG PO; +FOLIC ACID0.4 MG PO; +KEFLEX500 MG PO; +MELOXICAM15 MG PO; +ROPINIROLE HCL1 MG PO; +ROPINIROLE HCL4 MG PO; +SULFAMETHOXAZO1 EAC1 PO; +TRAMADOL HCL100 M2 PO; +TRAMADOL HCL50 MG PO; +VITAMIN D21250 MCG PO; +WARFARIN SODIUM10 MG PO; +naltrexone PO
--- OUTSIDE RECORDS SUMMARY | 2021-04-19 14:16 | XMS ---
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 CARTER Security Meter Supervisor Events No recent Security Events currently on file CRITERIA MET - [facility] CARE PROVIDERS TIFFANY Glover MD,GERTRUDE Sql Application Developer/Solar Power Installer Current PHONE: [phone] LUCIO TAO Dentist: Trombone Slide Assembler 04/23/2019-Current PHONE: [phone] AARON COLON Nurse Practitioner Current PHONE: [phone] Branden has no Care Guidelines for this patient. E.D. VISIT COUNT (12 MO.) 1 [facility] Garcia TOTAL 1 NOTE: Visits indicate total known visits. ED/UCC VISIT TRACKING (12 MO.) 04/19/2021 14:14 [facility] [place] TYPE: Emergency COMPLAINT: - CONGESTION, BACK PAIN, COUGH INPATIENT VISIT TRACKING (12 MO.) No inpatient visits to display in this time frame [id number]
[2021-04-19] MEDS ORDERED: NITROFURANTOIN100 MG PO (16:48)
== END 2021-04-19 17:01 | disposition home or self-care (01) ==
LOC: ED 14:12
DX: U07.1 COVID-19 (principal); G35 Multiple sclerosis; E66.9 Obesity, unspecified; Z68.29 Body mass index [BMI] 29.0-29.9, adult; Z86.718 Personal history of other venous thrombosis and embolism; Z79.01 Long term (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; Z87.891 Personal history of nicotine dependence; Z79.899 Other long term (current) drug therapy
CPT/HCPCS: 71045; 99284-25

== ENCOUNTER 2021-04-21 08:53 | Emergency (ER) | payer MEDICARE ==
[~2021-04-21] VITALS: Ht 177.8 cm; Wt 93.0 kg
[~2021-04-21 08:53] MED LIST changes: +NITROFURANTOIN100 MG PO
--- OUTSIDE RECORDS SUMMARY | 2021-04-21 08:56 | XMS ---
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 CARTER Security Outboard Motor Assembler Events No recent Security Events currently on file CRITERIA MET - [facility] - 2 Visits in 30 Days - PDMP CARE PROVIDERS TIFFANY Glover MD, SPENCER Floor Hand/Channeler Outsole Current PHONE: [phone] LUCIO TAO [facility] Current PHONE: [phone] LUCIO TAO Dentist: Customer Relations Representative 04/23/2019-Current PHONE: [phone] AARON COLON Nurse Practitioner Current PHONE: [phone] Branden has no Care Guidelines for this patient. Kuldeep VISIT COUNT (12 MO.) 2 DIONI Garcia TOTAL 2 NOTE: Visits indicate total known visits. ED/UCC VISIT TRACKING (12 MO.) 04/21/2021 08:54 [facility] [place] TYPE: Emergency COMPLAINT: - SOB, WEAKNESS, DIZZINESS 04/19/2021 14:14 [facility] [place] TYPE: Emergency COMPLAINT: - CONGESTION, BACK PAIN, COUGH INPATIENT VISIT TRACKING (12 MO.) No inpatient visits to display in this time frame [id number]
[2021-04-21] MEDS ORDERED: TOPROL XL25 MG PO (10:25)
== END 2021-04-21 11:02 | disposition home or self-care (01) ==
LOC: ED 08:53
DX: U07.1 COVID-19 (principal); I48.91 Unspecified atrial fibrillation; E66.9 Obesity, unspecified; Z87.891 Personal history of nicotine dependence; Z79.899 Other long term (current) drug therapy; Z79.01 Long term (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; Z79.891 Long term (current) use of opiate analgesic
CPT/HCPCS: 80048; 85025; 99285; J7040

== ENCOUNTER 2021-09-14 09:47 | Emergency (ER) | payer MEDICARE, OTHER ==
[~2021-09-14] VITALS: Ht 177.8 cm; Wt 93.1 kg
[~2021-09-14 09:47] MED LIST changes: +METOPROLOL SUCC25 MG PO; +TOPROL XL25 MG PO; +ZOLPIDEM TARTRA10 MG PO
--- OUTSIDE RECORDS SUMMARY | 2021-09-14 09:50 | XMS ---
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 CARTER Security Senior Analytic Consultant Events No recent Security Events currently on file CRITERIA MET - PDMP CARE PROVIDERS Alvarado, Melissa Oil Rig Driller/Swimming Coach Or Instructor 08/16/2021-Current PHONE: [phone] TIFFANY Glover MD, SPENCER Oil Rig Driller/Swimming Coach Or Instructor Current PHONE: [phone] LUCIO TAO Dentist: Freelance Court Reporter 04/23/2019-Current PHONE: [phone] AARON COLON Nurse Practitioner Current PHONE: [phone] [facility] Current PHONE: Unknown Branden has no Care Guidelines for this patient. Kuldeep VISIT COUNT (12 MO.) [address] [facility]atalie TOTAL 4 NOTE: Visits indicate total known visits. ED/UCC VISIT TRACKING (12 MO.) 09/14/2021 09:49 [facility] [place] TYPE: Emergency COMPLAINT: - DIZZY, VOMITING, WEAKNESS, LOW B/P 07/24/2021 17:00 [facility] [place] TYPE: Emergency COMPLAINT: - WEAKNESS,DIARRHEA,TIRED,CONFUSION 04/21/2021 08:54 [facility] [place] TYPE: Emergency COMPLAINT: - SOB, WEAKNESS, DIZZINESS DIAGNOSES: - Shortness of breath - Unspecified atrial fibrillation - Obesity, unspecified - COVID-19 - Personal history of nicotine dependence - Other senior living (current) drug therapy - custodial (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 - technician terminal and repeater (current) use of opiate analgesic 04/19/2021 14:14 [facility] [place] TYPE: Emergency COMPLAINT: - CONGESTION, BACK PAIN, COUGH DIAGNOSES: - technician terminal and repeater (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 - Personal history of other venous thrombosis and embolism - Cough, unspecified - Body mass index [BMI] 29.0-29.9, adult - Multiple sclerosis - Obesity, unspecified - Personal history of nicotine dependence - Other termite technician (current) drug therapy - COUGH, UNSPECIFIED - COVID-19 INPATIENT VISIT TRACKING (12 MO.) No inpatient visits to display in this time frame [id number]
[2021-09-14] MEDS ORDERED: CEPHALEXIN500 M1 PO (13:19)
--- NOTE | 2021-09-15 18:18 | EKG ---
[facility] [address] [place] [address] Signed Atrial fibrillation Possible Anterior infarct , age undetermined Abnormal ECG When compared with ECG of 01-MAR-2019 15:14, Atrial fibrillation has replaced Sinus rhythm Vent. rate has increased BY 34 BPM T wave inversion no longer evident in Inferior leads T wave amplitude has decreased in Anterolateral leads QT has lengthened Confirmed by EMILY VALLADARES MD ([id number]) on 09/15/2021 6:18:14 PM Electronically Signed By: EMILY VALLADARES MD 09/15/21 1818 PATIENT NAME: DEBBI CARTER Electrocardiogram DATE OF : 54 PHYSICIAN: EMILY VALLADARES MD REPORT #: [id number] REPORT IS CONFIDENTIAL AND NOT TO BE RELEASED WITHOUT AUTHORIZATION
== END 2021-09-14 14:45 | disposition home or self-care (01) ==
LOC: ED 09:47
DX: N39.0 Urinary tract infection, site not specified (principal); E86.0 Dehydration; Z86.718 Personal history of other venous thrombosis and embolism; Z87.891 Personal history of nicotine dependence; Z79.01 Long term (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; Z79.899 Other long term (current) drug therapy; Z20.822 Contact with and (suspected) exposure to COVID-19
CPT/HCPCS: 36415; 80053; 81001; 84484; 85025; 85610; 85730; 87502; 93005; 93010; C9803; J0696; J7040; U0003

== ENCOUNTER 2021-10-04 18:25 | Inpatient (IN) | payer MEDICARE, OTHER ==
[~2021-10-04] VITALS: Ht 177.8 cm; Wt 93.9 kg
[~2021-10-04 18:25] MED LIST changes: +CEPHALEXIN500 M1 PO; -WARFARIN SODIUM10 MG PO
--- OUTSIDE RECORDS SUMMARY | 2021-10-04 18:29 | XMS ---
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 CARTER Security Lead Rider Events No recent Security Events currently on file CRITERIA MET - [facility] - 2 Visits in 30 Days [facility] Rossy Alvarado Canopy Stringer/Tick Inspector 08/16/2021-Current PHONE: [phone] TIFFANY Glover MD, SPENCER Canopy Stringer/Tick Inspector Current PHONE: [phone] LUCIO TAO Dentist: Produce Department Supervisor 04/23/2019-Current PHONE: [phone] AARON COLON Nurse Harry Current PHONE: [phone] [facility] Current PHONE: Unknown Branden has no Care Guidelines for this patient. Kuldeep VISIT COUNT (12 MO.) 5 [facility] Garcia TOTAL 5 NOTE: Visits indicate total known visits. ED/UCC VISIT TRACKING (12 MO.) 10/04/2021 18:26 [facility] [place] TYPE: Emergency COMPLAINT: - SHORTNESS OF BREATH 09/14/2021 09:49 [facility] [place] TYPE: Emergency COMPLAINT: - DIZZY, VOMITING, WEAKNESS, LOW B/P DIAGNOSES: - Dehydration - Personal history of nicotine dependence - Other long term care administrator (current) drug therapy - Weakness - Urinary tract infection, site not specified - Personal history of other venous thrombosis and embolism - exterminator helper (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 - Contact with and (suspected) exposure to COVID-19 07/24/2021 17:00 [facility] [place] TYPE: Emergency COMPLAINT: - WEAKNESS,DIARRHEA,TIRED,CONFUSION 04/21/2021 08:54 [facility] [place] TYPE: Emergency COMPLAINT: - SOB, WEAKNESS, DIZZINESS DIAGNOSES: - Shortness of breath - Unspecified atrial fibrillation - Obesity, unspecified - COVID-19 - Personal history of nicotine dependence - Other custodial (current) drug therapy - exterminator helper (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 - exterminator helper (current) use of opiate analgesic 04/19/2021 14:[address] [facility] [place] TYPE: Emergency COMPLAINT: - CONGESTION, BACK PAIN, COUGH DIAGNOSES: - exterminator helper (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 - Personal history of other venous thrombosis and embolism - Cough, unspecified - Body mass index [BMI] 29.0-29.9, adult - Multiple sclerosis - Obesity, unspecified - Personal history of nicotine dependence - Other custodial (current) drug therapy - COUGH, UNSPECIFIED - COVID-19 INPATIENT VISIT TRACKING (12 MO.) No inpatient visits to display in this time frame [id number]
--- NOTE | 2021-10-04 22:10 | NUR ---
PT ARRIVED FROM ED AT THIS TIME, ALERT AND ORIENTED, PT TRANSFERED FROM STRETCHER TO HOSP. BED VIA DRAW SHEET TWO CERTIFIED MEDICAL TECHNICIAN ASSISTANT. PT SPOUSE AND DAUGHTER WITH PT FOR ADMISSION.
--- NOTE | 2021-10-05 00:39 | NUR ---
CALLED PT REPORTS WITHOUT TRAZADONE 100MG PO HE WILL NOT BE ABLE TO SLEEP TONIGHT.
--- NOTE | 2021-10-05 02:52 | NUR ---
PT RESTING QUIETLY IN BED EYES CLOSED ALERT TO RN AT BEDSIDE TO ASSESS URINE OUT. NO REQUESTS OR COCNERNS AT THIS TIME
--- NOTE | 2021-10-05 05:15 | NUR ---
PT. ZHONG EMPTIED. TRASH CANS EMPTIED. ROOM TIDIED. BED ALARM SET. CALL LIGHT LEFT WITHIN REACH. NO OTHER IMMEDIATE NEEDS AT THIS TIME.
--- NOTE | 2021-10-05 06:00 | NUR ---
NOTIFIED OF INR CRITICAL VALUE THIS AM.
--- NOTE | 2021-10-05 07:30 | NUR ---
REPORT RECIEVED. PATIENT IS RESTFUL IN BED.
--- NOTE | 2021-10-05 08:00 | NUR ---
ASSESSMENT DONE. C/O SHORTNESS OF BREATH WITH EXERTION. C/O OVERALL DISCOMFORT, RATES 5/10. TALKING ABOUT MS DX. TALKED WITH PATIENT ABOUT POC FOR DAY, INDICATES UNDERSTANDING. SITTING UP IN BED FOR BREAKFAST. ZHONG CATH PATENT WITH CLEAR YELLOW URING NOTED.
--- NOTE | 2021-10-05 08:30 | NUR ---
Spoke with iMan and he lives in a house with 3 steps, he is working with [employer]. They provide a state paid cg (daughter), are working on a ramp ,and food stamps for him. He uses a cane, walker, cpap, and raised toilet seat. Pt self caths at home. He denies further needs. He uses [facility] for his DME. Plans on dc to home when cleared medically and daughter will assist.
--- NOTE | 2021-10-05 08:30 | NUR ---
TOOK BREAKFAST WELL, DENIES NAUSEA. IS TALKATIVE, DIFFICULT TO UNDERSTAND.
--- NOTE | 2021-10-05 09:00 | NUR ---
ROUTINE MEDICATIONS GIVEN PER ORDERS WELL LASIX 20 MG IV. TALKED WITH PATIENT ABOUT CHF DX. PATIENT SAID HE HAD AN ECHO HERE A COUPLE OF MONTHS AGO.
[2021-10-05] MEDS ORDERED: DIGOXIN125 MCG PO (09:09)
[2021-10-05] MEDS ORDERED: METOPROLOL SUCC50 MG PO (09:10)
[2021-10-05] MEDS ORDERED: DALFAMPRIDINE E10 MG PO (09:10)
[2021-10-05] MEDS ORDERED: ELIQUIS5 MG PO (10:14)
[2021-10-05] MEDS ORDERED: WELLBUTRIN XL150 MG PO (10:16)
[2021-10-05] MEDS ORDERED: GABAPENTIN300 MG PO (10:17)
[2021-10-05] MEDS ORDERED: KETOCONAZOLE15 GM TOP (10:19)
[2021-10-05] MEDS ORDERED: KETOCONAZOLE120 ML TOP (10:21)
[2021-10-05] MEDS ORDERED: DITROPAN XL10 MG PO (10:23)
[2021-10-05] MEDS ORDERED: TRAMADOL HCL50 MG PO (10:25)
[2021-10-05] MEDS ORDERED: TRIAMCINOLONE A15 GM TOP (10:26)
[2021-10-05] MEDS ORDERED: MELOXICAM7.5 MG PO (10:30)
--- NOTE | 2021-10-05 12:00 | NUR ---
ASSESSMENT DONE. DENIES PAIN AT THIS TIME, RECIEVED TRAMADOL 50 MG PO EARLIER TODAY NO CHANGES.
--- NOTE | 2021-10-05 12:26 | NUR ---
PATIENT AWAKE IN BED. DAUGHTER NOW AT BEDSIDE. VITALS CHARTED. RN IN ROOM TO ASSESS IV. CALL LIGHT IN EASY REACH.
--- NOTE | 2021-10-05 12:49 | NUR ---
PATIENT REQUESTING TO "GET UP AND MOVE." THIS MUSEUM DIRECTOR AND RN MELQUIADES ASSISTING, PATIENT BECAME VERY WINDED AND EXHAUSTED JUST MOVING TO EDGE OF BED. PATIENT TRANSFERRED TO RECLINER-1PA, LEGS ELEVATED. LINEN CHANGED.CALL LIGHT IN EASY REACH.
--- NOTE | 2021-10-05 12:56 | EKG ---
[facility] [address] [place] [address] Signed Atrial fibrillation with rapid ventricular response with premature ventricular or aberrantly conducted complexes Abnormal QRS-T angle, consider primary T wave abnormality Abnormal ECG No previous ECGs available Confirmed by EMILY VALLADARES MD ([id number]) on 10/05/2021 12:56:29 PM Electronically Signed By: EMILY VALLADARES MD 10/05/21 1256 PATIENT NAME: DEBBI CARTER Electrocardiogram DATE OF : 54 PHYSICIAN: EMILY VALLADARES MD REPORT #: [id number] REPORT IS CONFIDENTIAL AND NOT TO BE RELEASED WITHOUT AUTHORIZATION
--- NOTE | 2021-10-05 13:15 | NUR ---
PT ALERT, ORIENTED AND SITTING UP IN BED WATCHING TV. HAD PLEASANT VISIT, PT STATED HE FEELS INFORMED OF POC. GAVE G.POST AND BLESSING. WILL FOLLOW
--- NOTE | 2021-10-05 16:00 | NUR ---
ASSESSMENT DONE. C/O SHORTNESS OF BREATH. O2 AT 2 L ON, ALTHOUGH O2 SAT 95-99. ZHONG CATH PATENT. NO RESTING IN BED.
--- NOTE | 2021-10-05 20:00 | NUR ---
PT SITTING UP IN BED ALERT AND ORIENTED AT THIS TIME. HE HAS CONSUMED 90% OF DINNER, NO N/V, HE VERBALIZED ABOUT HIS WALKING INTO BATHROOM TODAY. AFTER SITTING UP IN RECLINER. MELQUIADES STEVENS PER REPORT HAD INDICATED HE WAS WEAK FOR TRANSFER INTO RECLINER AND THEN WAS SUPRISED HOW STEADY HE WAS TO AMBULATE TO BATHROOM WITH FWW. THIS RN DISCUSSED PLAN OF CARE FOR TONIGHT, PT AGREES. NO NEW CONCERNS AT THIS TIME.
--- NOTE | 2021-10-05 21:00 | NUR ---
PT SITTING UP IN BED TALKING ON CELL PHONE TO HIS SIGNIFICANT OTHER.
--- NOTE | 2021-10-05 21:15 | NUR ---
AALIYAH PT'S SIGNIFICANT OTHER CALLED NURSES STATION TO SAY, "HE SEEMS CONFUSED, HE THOUGHT HE WAS AT HOME" THIS RN SAID "HE HAS BEEN GIVEN HIS NIGHT TIME MEDICATIONS THAT CAN MAKE HIM DROWSY" AALIYAH SAID "OH, THATS IT THEN, OK, OK" AALIYAH HAD NO OTHER CONCERNS TO REPORT AT THTHIS TIME.
--- NOTE | 2021-10-05 22:00 | NUR ---
ROUNDING TO ASSESS B/P PT RESTING IN BED, ASSISTED PT TO MORE COMFORTABLE POSITION AND LOWERED HEAD OF BED TO HIS PREFERENCE (45 DEGREE) FOR SLEEP. PT HAS NO OTHER REQUESTS OR CONCERNS AT THIS TIME.
--- NOTE | 2021-10-06 00:39 | NUR ---
PT RESTING IN BED SLEEPING EYES CLOSED RR 16, PT ALERT TO RN AT BEDSIDE AND B/P CUFF INFLATING. PT HAS NO REQUESTS OR CONCERNS AT THIS TIME. ASSESSMENT COMPLETE.
--- NOTE | 2021-10-06 05:02 | NUR ---
PT NOTED TO BE SLEEPING NOTED TO HAVE APNEA 1-2 SECOND, DESATS INTERMITTEN TO 85%, PT USUALLY USES CPAP AT HOME, NOT AVAILABLE AT THIS TIME. PT ON 2L OXYGEN TO COMPESATE MAINTAINS 95% AND BETTER WHEN NOT HAVING APNEA.
--- NOTE | 2021-10-06 07:30 | NUR ---
REPORT RECIEVED. PATIENT IS RESTING IN BED, NO DISTRESS NOTED. ZHONG CATH PATENT.
--- NOTE | 2021-10-06 07:35 | NUR ---
AMADO MG HERE TO SEE PATIENT, TRANSFER TO MED-SURG ORDERS RECIEVED.
--- NOTE | 2021-10-06 07:45 | NUR ---
Spoke with Mian. States he is the same. Denies needs.
--- NOTE | 2021-10-06 07:45 | NUR ---
SITTING UP IN BED FOR BREAKFAST. ASSESSMENT DONE. C/O INTERMITTENT SHORTNESS OF BREATH NC TO OFF, NOW ON RA. PATIENT STATES HE DOESN'T FEEL LIKE HE HAS MUCH ENERGY TODAY. PATIENT IS AWARE OF TRANSER TO MED-SURG.
--- NOTE | 2021-10-06 08:32 | NUR ---
TOOK BREAKFAST FAIR.
--- NOTE | 2021-10-06 09:40 | NUR ---
OUT OF BED TO CHAIR WITH TOTAL ASSIST. PATIENT NOT ABLE TO PUT WEIGHT ON LEGS AT THIS TIME.
--- NOTE | 2021-10-06 11:00 | NUR ---
PT SLEEPING DID NOT DISTURB. WILL CHECK BACK
--- NOTE | 2021-10-06 12:30 | NUR ---
TOOK LUNCH WELL. ATTEMPTED TO USE WALKER TO STAND. WAS ONLY ABLE TO STAND FOR FEW SECONDS THEN BACK TO CHAIR. PATIENT DEPRESSED ABOUT REGRESSION IN HIS STRENGTH. EMOTION SUPPORT GIVEN. PATIENT STATES HE FEELS WHEEZES, UPON LISTENING TO LUNGS NO WHEEZES HEARD. HAS CRACKLES IN LLL.
--- NOTE | 2021-10-06 13:15 | NUR ---
REMAINS IN CHAIR.
--- NOTE | 2021-10-06 14:20 | NUR ---
REPORT TO MED-SURG.
--- NOTE | 2021-10-06 14:35 | NUR ---
TO MED-SURG VIA CHAIR.
--- NOTE | 2021-10-06 15:33 | NUR ---
Patient resting in bed, eyes closed, respirations even and non labored. Patient has no notable distress. IV running per provider order. No current needs, personal supplies and call light within reach.
--- NOTE | 2021-10-06 15:38 | NUR ---
Patient arrived to the medical floor from ICU dept. Patient is alert and oriented x4, on room air, resp even non labored. Patient oriented to room and call light at this time. Patient denies needs at this time, personal supplies and call light within reach.
[2021-10-06] MEDS ORDERED: XARELTO20 MG PO (16:32)
[2021-10-06] MEDS ORDERED: WARFARIN SODIUM10 MG PO (17:26)
--- NOTE | 2021-10-06 20:41 | NUR ---
report revieved, pt sitting in bed side chair, no c/o or stated needs. assessment c/o
--- NOTE | 2021-10-06 21:50 | NUR ---
pt still sittin in bedside chair. medications administered, at this time pt was noted not to have have taken trazadone. he did want to keep this med at bedside. instructed pt on safe med handleing and that if pt wanted this med later it would be avalable to him. pt denies SOB or pain.
--- NOTE | 2021-10-07 00:58 | NUR ---
rounded on pt, pt resting quietly in chair. up 2pa with fww to bsc to attempt bm, bm unsuccessful. pt back to bed, bed alarm on for safety. pt reports some dizziness with ambulation, vs collected and stable. bp 109/86, map of 92, hr 88 per tele monitor, afib rhythm continues. spo2 low 90's on ra, home cpap mahcine now in place. chapa patent. no additional needs, call light in reach.
--- NOTE | 2021-10-07 01:24 | NUR ---
250MLS FRESH ICE WATER ALSO PROVIDED.
--- NOTE | 2021-10-07 04:17 | NUR ---
pt RESTING QUIETLY IN BED WITH EYES CLOSED. ON RA, WITH HOME CPAP MACHINE IN PLACE. RR EVEN AND UNLABORED, NO DISTRESS NOTED. RR EVEN AND UNLABORED, CALL LIGHT IN REACH AND BED ALARM ON FOR SAFETY. TELE#[address], AFIB RHYTHM PER TELE.
--- NOTE | 2021-10-07 06:38 | NUR ---
PT HAD RESTLESS SLEEP PER HIS STATMENT, HOME CPAP IN PLACE THROUGH NIGHT. NO C/O OF PAIN. PT REMAINS WEAK AND NEED TWO PERSON MOD ASSIST. URINE IS CLOUDY AND ODIFOROUS. PT STATES PAST uti FOR INTERMITTENT SELF CATHING AT HOME.
--- NOTE | 2021-10-07 07:41 | NUR ---
REPORT RECEIVED FROM NIGHT RN AND PT. CARE RESUMED. PT. IS ALERT AND ORIENTED. HE DENIES NEEDS AT THIS TIME. BED ALARM ON.
--- NOTE | 2021-10-07 08:00 | NUR ---
PT. ASSESSMENT COMPLETED. PT. AMBULATED WITH 2PA AND FWW TO THE CHAIR AND HAD 2 ATTEMPTS TO STAND UP. LUNGS DIM. THROUGHOUT AND ON ROOM AIR. ALL EXTREMITIES ARE COOL AND POOR PERFUSION. HE DENIES PAIN OR SOB. BROUGHT WATER AND ORDERED OATMEAL BECAUSE PT. STATES HE HAS DIFFICULTY SWALLOWING SAUSAGE AND MONTENEGRIN TOAST. HE STATES "IT GETS STUCK IN MY THROAT SOMETIMES". PT. LEFT RESTING WITH CALL LIGHT IN REACH.
--- NOTE | 2021-10-07 11:02 | NUR ---
PT. USED CALL LIGHT APPROPRIATELY TO REQUEST 02. 02 SAT CHECKED AND WAS 93%. RESPIRATIONS ARE EVEN AND UNLABORED. PT. PLACED ON 0.5L O2 NC AND 02 SAT INCREASED TO 97%. PT. DENIES FURTHER NEEDS. LEFT RESTING WITH CALL LIGHT IN REACH
--- NOTE | 2021-10-07 11:15 | NUR ---
INTO ROOM TO SEE PATIENT. PATIENT STATES HE IS STILL NOT FEELING WELL TODAY. PATIENT REMAIN ON O2 PER NC WHICH HE STATES IS NOT CHRONIC FOR HIM. HE IS ABLE TO GET UP TO THE RESTROOM WITH WALKER AND 2 PERSON ASSIST. PATIENT IS CONCERNED THAT HE IS NOT READY TO GO HOME AT THIS TIME. REASSURED THE PATIENT THAT HE WILL NOT BE DISCHARGED UNTIL HE IS STABLE AND CASE MANAGEMENT WILL CONTINUE TO CHECK IN WITH HIM.
--- NOTE | 2021-10-07 13:08 | NUR ---
PT ALERT,ORIENTED AND MENTIONED HE WASN'T HAVING THE BEST OF DAYS. WHEN ASKED WHY, PT STATED HE WAS HAVING TROUBLE BREATHING. INFORMED RN AIDAN-PUT PT ON O2 NC. HAD GOOD VISIT, GAVE BLESSING AND WILL FOLLOW
--- NOTE | 2021-10-07 14:35 | NUR ---
INPATIENT REHAB DISCUSSED WITH DR. FISCHER. REFERRAL FAXED TO [facility].
--- NOTE | 2021-10-07 15:19 | NUR ---
HELPED NURSE TRANFER PATIENT FROM HIS BED TO HIS CHAIR. PATIENT USED HIS WALKER.
--- NOTE | 2021-10-07 16:33 | NUR ---
PATIENT STATES HE HAD GASTRIC BYPASS IN 2001. HE CANNOT TOLERATE STEAK BECAUSE IT DOESN'T DIGEST WELL, PINEAPPLE OR BROCCOLI BECAUSE THEY GET STUCK IN HIS THROAT. HE CAN EAT EGGS IT JUST DEPENDS ON HOW IT THEY ARE COOKED. HE SAID HE WAS DRINKING PROTEIN DRINKS AT HOME BUT NOT REGULARLY AND HE DOESN'T KNOW WHAT THEY WERE. HE DOESN'T EAT SANDWICHES BECAUSE THE BREAD GUMS UP, PASTA SOMETIMES DOES TOO BUT HE JUST HAS TO CHEW IT WELL. HE STATES HE WOULD LIKE TO HAVE SOME ENSURE AT MEALS. HE IS ON A FLUID RESTRICTION SO I MENTIONED WE WOULDN'T BE ABLE TO DO COFFEE AND AN ENSURE AT BREAKFAST BUT WE COULD LOOK INTO ENSURE FOR LUNCH AND DINNER. HE APPRECIATED MY TIME. [address] DIET IN PLACE. WILL CONTINUE TO MONITOR.
--- NOTE | 2021-10-07 17:50 | NUR ---
PT. ATE MOST OF HIS DINNER. HE STATES HE WOULD LIKE THE MD TO CONSIDER SENDING HIM TO [facility] IN [place] FOR REHAB. WILL UPDATE MD. NO FURTHER NEEDS.
--- NOTE | 2021-10-07 19:14 | NUR ---
report revieved for rupal Whitley sitting in bed NAD.
--- NOTE | 2021-10-07 20:10 | NUR ---
IN WITH RN TO 1-2PA PIVOT PT TO BSC, BM, BACK TO BED, NO FURTHER NEEDS AT THIS TIME
--- NOTE | 2021-10-07 20:15 | NUR ---
pt ASKING FOR TRENDING INR RESULTS, INFORMATION PROVIDED TO pt. NO ADDITIONAL NEEDS, CALL LIGHT IN REACH.
--- NOTE | 2021-10-08 00:13 | NUR ---
PT RESTING N BED WITH EYES CLOSED CPAP IN PLACE HOB BELOW 30 DEGREES. NAD
--- NOTE | 2021-10-08 03:50 | NUR ---
pt resting in bed with cpap in place, he did take his sleep aide trazadone. NAD
--- NOTE | 2021-10-08 05:34 | NUR ---
PT RESTING WELL THROUGH THE NIGHT, PT STATES "I THINK I SLEEPT REALLY GOOD", STILL REMAINS WEAK IN HIS LEGS WITH RISING FROM SEATED POSITION AND AMBULATION. FLUID RESTRICTION FOLLOWED PT IS AWARE OF FLUID INTAKE. ZHONG CATHTER PATENT AND DRAININ CLEAR DANIELLE URINE.
--- NOTE | 2021-10-08 09:10 | NUR ---
TO PT ROOM FOR MORNING ASSESSMENT. PT IS A/O, RESPIRATORY REGULAR AND EVEN. CALL LIGHT WITHIN REACH.
--- NOTE | 2021-10-08 10:30 | NUR ---
Spoke with Dr. Johnny Pappas in the room. Pt is dischargable today. Awaiting to hear if [facility] can take this pt. Discussed with pt and about dc to a SNF for rehab, if he is declined by [facility]. Pt would prefer [facility], but is agreeable to surrounding area SNFS. Chart faxed to [facility]. Updated THERESA in admissions, pt is dischargable today. States he will give to nurse and let me know in a couple of hours.
--- NOTE | 2021-10-08 11:00 | NUR ---
Received a message from Ro at [facility]. She states pt looks good, but they cannot admit until next week, they are also not guaranteeing admit.
[2021-10-08] MEDS ORDERED: XARELTO20 MG PO (11:54)
[2021-10-08] MEDS ORDERED: METOPROLOL SUCC50 MG PO (11:55)
[2021-10-08] MEDS ORDERED: GABAPENTIN300 MG PO (11:55)
[2021-10-08] MEDS ORDERED: TRAMADOL HCL50 MG PO (11:55)
[2021-10-08] MEDS ORDERED: TRAZODONE HCL50 MG PO (11:56)
[2021-10-08] MEDS ORDERED: ROPINIROLE HCL4 MG PO (11:56)
[2021-10-08] MEDS ORDERED: WELLBUTRIN XL150 MG PO (11:56)
[2021-10-08] MEDS ORDERED: DALFAMPRIDINE E10 MG PO (11:57)
[2021-10-08] MEDS ORDERED: DITROPAN XL10 MG PO (11:57)
--- NOTE | 2021-10-08 12:30 | NUR ---
Notified by THERESA at [facility], they will accept this pt today between 1 and 3 pm. Let him know I will call the WC van and see when they can transport. Dr Turner updated and given orders to complete. Called and spoke with Bj at the WC van. He can transport this pt at 3 pm, but will need to use our wc. THERESA notified.
--- NOTE | 2021-10-08 12:55 | NUR ---
Orders, Emar, Pasrr, dc summary faxed to THERESA at [facility].
== END 2021-10-08 14:55 | disposition home or self-care (01) | DRG 291 ==
LOC: ED 18:25 → MS 21:07 → CCU 21:07 → MS 10-06 15:25
PROVIDERS: ADMIT Internal Medicine; ATTEND Internal Medicine
DX: I50.33 Acute on chronic diastolic (congestive) heart failure (principal); J96.01 Acute respiratory failure with hypoxia; I48.21 Permanent atrial fibrillation; G81.91 Hemiplegia, unspecified affecting right dominant side; G47.33 Obstructive sleep apnea (adult) (pediatric); Z20.822 Contact with and (suspected) exposure to COVID-19; Z66 Do not resuscitate; N31.9 Neuromuscular dysfunction of bladder, unspecified; G35 Multiple sclerosis; F39 Unspecified mood [affective] disorder; E66.9 Obesity, unspecified; Z68.30 Body mass index [BMI] 30.0-30.9, adult; F32.9 Major depressive disorder, single episode, unspecified; G25.81 Restless legs syndrome; Z86.718 Personal history of other venous thrombosis and embolism; Z99.3 Dependence on wheelchair; Z88.8 Allergy status to other drugs, medicaments and biological substances; Z98.84 Bariatric surgery status; Z98.1 Arthrodesis status; Z98.890 Other specified postprocedural states; Z79.899 Other long term (current) drug therapy
CPT/HCPCS: 36415; 51702; 71045; 80048; 80053; 80162; 81001; 83735; 83880; 85025; 85610; 87502; 94667; 94668; 94760; 97116; 97162; 97166; 97530; 99285-25; A9270; C9803; J1940; J3475; U0003

== ENCOUNTER 2022-06-10 18:35 | Emergency (ER) | payer MEDICARE, OTHER ==
[~2022-06-10] VITALS: Ht 177.8 cm; Wt 100.2 kg
[~2022-06-10 18:35] MED LIST changes: +DALFAMPRIDINE E10 MG PO; +DIGOXIN125 MCG PO; +DITROPAN XL10 MG PO; +ELIQUIS5 MG PO; +GABAPENTIN300 MG PO; +KETOCONAZOLE120 ML TOP; +KETOCONAZOLE15 GM TOP; +MELOXICAM7.5 MG PO; +METHENAMINE HIPP1 GM PO; +METOPROLOL SUCC50 MG PO; +TRAZODONE HCL50 MG PO; +TRIAMCINOLONE A15 GM TOP; +WARFARIN SODIUM10 MG PO; +WELLBUTRIN XL150 MG PO; +XARELTO20 MG PO
--- OUTSIDE RECORDS SUMMARY | 2022-06-10 18:39 | XMS ---
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 Events No recent Security Events currently on file CRITERIA MET - [facility] - [facility] - 2 Visits in 30 Days CARE PROVIDERS -, [place]- Dentist: Instructional Supervisor [facility] Dental [facility] PHONE: [phone] JOSE [facility] Current PHONE: [phone] TIERRA CONRAD Internal Medicine Current PHONE: [phone] TIFFANY Glover MD, SPENCER Patient Observation Assistant/Mixing Machine Feeder Current PHONE: [phone] Angi Nielsen Patient Observation Assistant/Mixing Machine Feeder 05/25/2022-Current PHONE: [phone] LUCIO TAO Dentist: Instructional Supervisor 04/23/2019-Current PHONE: [phone] ELEANOR GUAN Nurse Practitioner: Family Current PHONE: Unknown MARGARET CORDERO Internal Medicine Current PHONE: [phone] LESLEY URBAN I. Physician Vice President Global Advertising Sales Current PHONE: Unknown PAGE KELLEY Nurse Practitioner Current PHONE: Unknown LEXA ONTIVEROS Internal Medicine Current PHONE: Unknown SCOUT GANT Nurse Practitioner Woody MUNIZ PHONE: [phone] SILVESTRE VERSAILLES [facility] Current PHONE: Unknown [facility] Current PHONE: [phone] AARON COLON Nurse Practitioner Current PHONE: [phone] [facility] Current PHONE: Unknown Branden has no Care Guidelines for this patient. Kuldeep VISIT COUNT (12 MO.) 1 [place] MRefugio DIONI Garcia TOTAL 8 NOTE: Visits indicate total known visits. ED/UCC VISIT TRACKING (12 MO.) 06/10/2022 18:37 DIONI Velasco TYPE: Emergency COMPLAINT: - CHEST PAIN, VOMITING, LOW FEVER, CHILLS 05/31/2022 20:10 DIONI Velasco TYPE: Emergency COMPLAINT: - WEAKNESS DIAGNOSES: - Personal history of nicotine dependence - Urinary tract infection, site not specified - Unspecified atrial fibrillation - Allergy status to other drugs, medicaments and biological substances - Obesity, unspecified - Other half-way (current) drug therapy - Weakness 01/27/2022 12:47 [facility] LANG TYPE: Emergency DIAGNOSES: - Hypotension - Sepsis, unspecified organism - Fatigue - Acute cystitis without hematuria 12/03/2021 07:24 DIONI [place]t [place] TYPE: Emergency COMPLAINT: - FALL, R HIP/HEAD INJURY DIAGNOSES: - Personal history of nicotine dependence - Contact with and (suspected) exposure to COVID-19 - Obesity, unspecified - Allergy status to other drugs, medicaments and biological substances - Other half-way (current) drug therapy - Unspecified atrial fibrillation - Displaced fracture of base of neck of right femur, initial encounter for closed fracture - Heart failure, unspecified - Striking against or struck by other objects, initial encounter 11/13/2021 12:24 DIONI [place] TYPE: Emergency COMPLAINT: - LOW BLOOD SUGAR DIAGNOSES: - Allergy status to other drugs, medicaments and biological substances - Retention of urine, unspecified - Hypoglycemia, unspecified - Obesity, unspecified - Unspecified atrial fibrillation - Other adjunct faculty for medical terminology (current) drug therapy - Personal history of nicotine dependence - Hypotension, unspecified - Personal history of other venous thrombosis and embolism 10/04/2021 18:26 [facility]IONI [place] TYPE: Emergency COMPLAINT: - SHORTNESS OF BREATH 09/14/2021 09:49 [facility] [place] TYPE: Emergency COMPLAINT: - DIZZY, VOMITING, WEAKNESS, LOW B/P DIAGNOSES: - Weakness - Personal history of nicotine dependence - adjunct faculty for medical terminology (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 - Urinary tract infection, site not specified - Other half-way (current) drug therapy - Dehydration - Contact with and (suspected) exposure to COVID-19 - Personal history of other venous thrombosis and embolism 07/24/2021 17:00 DIONI Velasco TYPE: Emergency COMPLAINT: - WEAKNESS,DIARRHEA,TIRED,CONFUSION INPATIENT VISIT TRACKING (12 MO.) 02/14/2022 12:30 [facility] [place] LANG TYPE: Physical Therapy DIAGNOSES: - Paroxysmal atrial fibrillation - Unspecified systolic (congestive) heart failure - Other malaise - Other specified health status - Multiple sclerosis - Personal history of (healed) traumatic fracture - Right Hip Fracture - Dysphagia, unspecified - Hypotension, unspecified - Other reduced mobility - Influenza due to other identified influenza virus with other respiratory manifestations - Acute on chronic systolic (congestive) heart failure - Unspecified atrial fibrillation - Other specified disease of esophagus - Unspecified abnormalities of gait and mobility - Atherosclerotic heart disease of [place] coronary artery with other forms of angina pectoris 02/08/2022 09:43 [facility] Jesus LANG TYPE: Surgical Services DIAGNOSES: - Unsteadiness on feet - Obstructive sleep apnea (adult) (pediatric) - Neuromuscular dysfunction of bladder, unspecified - Other reduced mobility - Chronic systolic (congestive) heart failure - Peripheral vascular disease, unspecified - Hypotension, unspecified - Multiple sclerosis - Paroxysmal atrial fibrillation - Personal history of (healed) traumatic fracture - Other malaise - Weakness - Other specified health status 01/27/2022 12:47 [facility] LANG TYPE: Medical Surgical DIAGNOSES: - Paroxysmal atrial fibrillation - Chronic diastolic (congestive) heart failure - Other malaise - Multiple sclerosis - Sepsis, unspecified organism - Acute cystitis without hematuria - Acute on chronic systolic (congestive) heart failure - Other reduced mobility - Other specified health status - Neuromuscular dysfunction of bladder, unspecified - Atherosclerotic heart disease of [place] coronary artery with other forms of angina pectoris - Fracture of unspecified part of neck of right femur, subsequent encounter for closed fracture with nonunion - Dysphagia, unspecified - Other specified anxiety disorders - Unspecified abnormalities of gait and mobility - Restless legs syndrome - Displaced intertrochanteric fracture of unspecified femur, subsequent encounter for closed fracture with nonunion 12/04/2021 03:38 [facility] TYPE: General Medicine COMPLAINT: - Hip fx Afib RVR DIAGNOSES: - Unspecified atherosclerosis of [place] arteries of extremities, other extremity - Other specified abnormal findings of blood chemistry - Acute combined systolic (congestive) and diastolic (congestive) heart failure - Heart failure, unspecified - Longstanding persistent atrial fibrillation 10/04/2021 21:07 DIONI [place]t [place] TYPE: Medical Surgical COMPLAINT: - CONGESTIVE HEART FAILURE DIAGNOSES: - Obstructive sleep apnea (adult) (pediatric) - Major depressive disorder, single episode, unspecified - Acute respiratory failure with hypoxia - Do not resuscitate - Obstructive sleep apnea (adult) (pediatric) - Unspecified mood [affective] disorder - Bariatric surgery status - Bariatric surgery status - Allergy status to other drugs, medicaments and biological substances - Multiple sclerosis - Restless legs syndrome - Contact with and (suspected) exposure to COVID-19 - Dependence on wheelchair - Do not resuscitate - Arthrodesis status - Obesity, unspecified - Arthrodesis status - Hemiplegia, unspecified affecting right dominant side - Other specified postprocedural states - Body mass index [BMI] 30.0-30.9, adult - Personal history of other venous thrombosis and embolism - Multiple sclerosis - Obesity, unspecified - Hemiplegia, unspecified affecting right dominant side - Permanent atrial fibrillation - Other adjunct faculty for medical terminology (current) drug therapy - Contact with and (suspected) exposure to COVID-19 - Neuromuscular dysfunction of bladder, unspecified - Major depressive disorder, single episode, unspecified - Personal history of other venous thrombosis and embolism - Permanent atrial fibrillation - Acute respiratory failure with hypoxia - Dependence on wheelchair - Neuromuscular dysfunction of bladder, unspecified - Acute on chronic diastolic (congestive) heart failure - Unspecified mood [affective] disorder - Allergy status to other drugs, medicaments and biological substances - Restless legs syndrome - Body mass index [BMI] 30.0-30.9, adult - Other half-way (current) drug therapy - Other specified postprocedural states [email or web address]
[2022-06-10] MEDS ORDERED: K-TAB ER20 MEQ PO (22:29)
[2022-06-10] MEDS ORDERED: LASIX40 MG PO (22:29)
--- NOTE | 2022-06-14 18:54 | EKG ---
[facility] [address] [facility] [place] [address] Signed Atrial fibrillation with rapid ventricular response Septal infarct (cited on or before 31-MAY-2022) Abnormal ECG When compared with ECG of 31-MAY-2022 20:34, Vent. rate has increased BY 48 BPM Questionable change in initial forces of Septal leads Confirmed by Alexa Gallardo MD () on 06/14/2022 6:54:21 PM Electronically Signed By: ALEXA GALLARDO MD 06/14/22 1854 PATIENT NAME: DEBBI CARTER Electrocardiogram DATE OF : 54 PHYSICIAN: ALEXA GALLARDO MD REPORT #: [id number] REPORT IS CONFIDENTIAL AND NOT TO BE RELEASED WITHOUT AUTHORIZATION
--- NOTE | 2022-06-14 18:56 | EKG ---
[facility] [address] [place] [address] Signed Atrial fibrillation Cannot rule out Anterior infarct (cited on or before 31-MAY-2022) Abnormal ECG When compared with ECG of 10-JUN-2022 18:42, (Unconfirmed) Vent. rate has decreased BY 47 BPM Confirmed by Alexa Gallardo MD () on 06/14/2022 6:56:16 PM Electronically Signed By: ALEXA GALLARDO MD 06/14/22 1856 PATIENT NAME: DEBBI CARTER Electrocardiogram DATE OF : 54 PHYSICIAN: ALEXA GALLARDO MD REPORT #: [id number] REPORT IS CONFIDENTIAL AND NOT TO BE RELEASED WITHOUT AUTHORIZATION
== END 2022-06-10 22:49 | disposition home or self-care (01) ==
LOC: ED 18:35
DX: I50.9 Heart failure, unspecified (principal); I48.91 Unspecified atrial fibrillation; E66.9 Obesity, unspecified; Z87.891 Personal history of nicotine dependence; Z88.8 Allergy status to other drugs, medicaments and biological substances; Z79.899 Other long term (current) drug therapy
CPT/HCPCS: 36415; 71045; 74177; 80053; 81001; 83735; 83880; 84484; 85025; 85610; 93005; 93010; 96375; 96376; 99285-25; J1940; J2405; Q9967

== ENCOUNTER 2022-08-12 00:53 | Emergency (ER) | payer MEDICARE, OTHER ==
[~2022-08-12] VITALS: Ht 177.8 cm; Wt 92.1 kg
[~2022-08-12 00:53] MED LIST changes: +K-TAB ER20 MEQ PO; +LASIX40 MG PO
--- OUTSIDE RECORDS SUMMARY | 2022-08-12 00:56 | XMS ---
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 CARTER Security Motorcycle Tester Events No recent Security Events currently on file CRITERIA MET - [facility] - [facility] - 2 Visits in 30 Days CARE PROVIDERS -, [place]- Dentist: Dictaphone Technician [facility] Dental [facility] PHONE: [phone] JOSE [facility] Current PHONE: [phone] TIERRA CONRAD Internal Medicine Current PHONE: [phone] TIFFANY Glover MD, SPENCER Lecturer Of Portuguese/Lean Engineer Current PHONE: [phone] Angi Nielsen Lecturer Of Portuguese/Lean Engineer 05/25/2022-Current PHONE: [phone] LUCIO TAO Dentist: Dictaphone Technician 04/23/2019-Current PHONE: [phone] ELEANOR GUAN Nurse Practitioner: Family Current PHONE: Unknown MARGARET CORDERO Internal Medicine Current PHONE: [phone] LESLEY URBAN I. Physician Button Sewer Hand Current PHONE: Unknown PAGE KELLEY Nurse Practitioner Current PHONE: Unknown LEXA ONTIVEROS Internal Medicine Current PHONE: Unknown SCOUT GANT Nurse Practitioner Woody MUNIZ PHONE: [phone] SILVESTRE DOERUN [facility] Current PHONE: Unknown [facility] Current PHONE: [phone] AARON COLON Nurse Practitioner Current PHONE: [phone] [facility] Current PHONE: Unknown Branden has no Care Guidelines for this patient. Kuldeep VISIT COUNT (12 MO.) 1 [facility] [address] [place] 7 DIONI Garcia TOTAL 9 NOTE: Visits indicate total known visits. ED/UCC VISIT TRACKING (12 MO.) 08/12/2022 00:54 DIONI Velasco TYPE: Emergency COMPLAINT: - WEAKNESS 08/03/2022 13:28 [facility] VIKRAM [place] TYPE: Emergency DIAGNOSES: - Dizziness and giddiness - Multiple sclerosis - Vertigo (Recurrent) 06/10/2022 18:37 DIONI [facility]t [place] TYPE: Emergency COMPLAINT: - CHEST PAIN, VOMITING, LOW FEVER, CHILLS DIAGNOSES: - Allergy status to other drugs, medicaments and biological substances - Heart failure, unspecified - Nausea with vomiting, unspecified - Obesity, unspecified - Other ad terminal makeup operator (current) drug therapy - Personal history of nicotine dependence - Unspecified atrial fibrillation 05/31/2022 20:10 DIONI [place]oyt [place] TYPE: Emergency COMPLAINT: - WEAKNESS DIAGNOSES: - Allergy status to other drugs, medicaments and biological substances - Obesity, unspecified - Other half-way (current) drug therapy - Personal history of nicotine dependence - Unspecified atrial fibrillation - Urinary tract infection, site not specified - Weakness 01/27/2022 12:47 [facility] Karthik LANG TYPE: Emergency DIAGNOSES: - Acute cystitis without hematuria - Sepsis, unspecified organism - Fatigue - Hypotension 12/03/2021 07:24 DIONI Velasco TYPE: Emergency COMPLAINT: - FALL, R HIP/HEAD INJURY DIAGNOSES: - Allergy status to other drugs, medicaments and biological substances - Contact with and (suspected) exposure to COVID-19 - Displaced fracture of base of neck of right femur, initial encounter for closed fracture - Heart failure, unspecified - Obesity, unspecified - Other ad terminal makeup operator (current) drug therapy - Personal history of nicotine dependence - Striking against or struck by other objects, initial encounter - Unspecified atrial fibrillation 11/13/2021 12:24 DIONI [facility]oyt [place] TYPE: Emergency COMPLAINT: - LOW BLOOD SUGAR DIAGNOSES: - Allergy status to other drugs, medicaments and biological substances - Hypoglycemia, unspecified - Hypotension, unspecified - Obesity, unspecified - Other ad terminal makeup operator (current) drug therapy - Personal history of nicotine dependence - Personal history of other venous thrombosis and embolism - Retention of urine, unspecified - Unspecified atrial fibrillation 10/04/2021 18:26 DIONI [facility]oyt [place] TYPE: Emergency COMPLAINT: - SHORTNESS OF BREATH 09/14/2021 09:49 DIONI [place]oyt [place] TYPE: Emergency COMPLAINT: - DIZZY, VOMITING, WEAKNESS, LOW B/P DIAGNOSES: - Contact with and (suspected) exposure to COVID-19 - Dehydration - FDC (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 - Other ad terminal makeup operator (current) drug therapy - Personal history of nicotine dependence - Personal history of other venous thrombosis and embolism - Urinary tract infection, site not specified - Weakness INPATIENT VISIT TRACKING (12 MO.) [facility] DIAGNOSES: - Acute on chronic systolic (congestive) heart failure - Atherosclerotic heart disease of [place] coronary artery with other forms of angina pectoris - Dysphagia, unspecified - Hypotension, unspecified - Influenza due to other identified influenza virus with other respiratory manifestations - Multiple sclerosis - Other malaise - Other reduced mobility - Other specified disease of esophagus - Other specified health status - Paroxysmal atrial fibrillation - Personal history of (healed) traumatic fracture - Unspecified abnormalities of gait and mobility - Unspecified atrial fibrillation - Unspecified systolic (congestive) heart failure - Right Hip Fracture 02/08/2022 09:43 [facility] DIAGNOSES: - Chronic systolic (congestive) heart failure - Hypotension, unspecified - Multiple sclerosis - Neuromuscular dysfunction of bladder, unspecified - Obstructive sleep apnea (adult) (pediatric) - Other malaise - Other reduced mobility - Other specified health status - Paroxysmal atrial fibrillation - Peripheral vascular disease, unspecified - Personal history of (healed) traumatic fracture - Unsteadiness on feet - Weakness 01/27/2022 12:47 [facility] LANG TYPE: Medical Surgical DIAGNOSES: - Acute cystitis without hematuria - Acute on chronic systolic (congestive) heart failure - Atherosclerotic heart disease of [place] coronary artery with other forms of angina pectoris - Chronic diastolic (congestive) heart failure - Displaced intertrochanteric fracture of unspecified femur, subsequent encounter for closed fracture with nonunion - Dysphagia, unspecified - Fracture of unspecified part of neck of right femur, subsequent encounter for closed fracture with nonunion - Multiple sclerosis - Neuromuscular dysfunction of bladder, unspecified - Other malaise - Other reduced mobility - Other specified anxiety disorders - Other specified health status - Paroxysmal atrial fibrillation - Restless legs syndrome - Sepsis, unspecified organism - Unspecified abnormalities of gait and mobility 12/04/2021 03:38 [facility] [place] [facility]H TYPE: General Medicine COMPLAINT: - Hip fx Afib RVR DIAGNOSES: - Acute combined systolic (congestive) and diastolic (congestive) heart failure - Heart failure, unspecified - Longstanding persistent atrial fibrillation - Other specified abnormal findings of blood chemistry - Unspecified atherosclerosis of [place] arteries of extremities, other extremity 10/04/2021 21:[address] [facility] [place] TYPE: Medical Surgical COMPLAINT: - CONGESTIVE HEART FAILURE DIAGNOSES: - Acute on chronic diastolic (congestive) heart failure - Acute respiratory failure with hypoxia - Acute respiratory failure with hypoxia - Allergy status to other drugs, medicaments and biological substances - Allergy status to other drugs, medicaments and biological substances - Arthrodesis status - Arthrodesis status - Bariatric surgery status - Bariatric surgery status - Body mass index [BMI] 30.0-30.9, adult - Body mass index [BMI] 30.0-30.9, adult - Contact with and (suspected) exposure to COVID-19 - Contact with and (suspected) exposure to COVID-19 - Dependence on wheelchair - Dependence on wheelchair - Do not resuscitate - Do not resuscitate - Hemiplegia, unspecified affecting right dominant side - Hemiplegia, unspecified affecting right dominant side - Major depressive disorder, single episode, unspecified - Major depressive disorder, single episode, unspecified - Multiple sclerosis - Multiple sclerosis - Neuromuscular dysfunction of bladder, unspecified - Neuromuscular dysfunction of bladder, unspecified - Obesity, unspecified - Obesity, unspecified - Obstructive sleep apnea (adult) (pediatric) - Obstructive sleep apnea (adult) (pediatric) - Other ad terminal makeup operator (current) drug therapy - Other ad terminal makeup operator (current) drug therapy - Other specified postprocedural states - Other specified postprocedural states - Permanent atrial fibrillation - Permanent atrial fibrillation - Personal history of other venous thrombosis and embolism - Personal history of other venous thrombosis and embolism - Restless legs syndrome - Restless legs syndrome - Unspecified mood [affective] disorder - Unspecified mood [affective] disorder [email or web address]
[2022-08-12] MEDS ORDERED: ENTRESTO 24 MG1 EACH PO (01:15)
[2022-08-12] MEDS ORDERED: TORSEMIDE20 MG PO (01:15)
[2022-08-12] MEDS ORDERED: CEFDINIR300 MG PO (01:57)
[2022-08-12 04:00] VITALS: BP 92/54
== END 2022-08-12 04:00 | disposition home or self-care (01) ==
LOC: ED 00:53
DX: N39.0 Urinary tract infection, site not specified (principal); I50.9 Heart failure, unspecified; I48.91 Unspecified atrial fibrillation; E66.9 Obesity, unspecified; Z87.891 Personal history of nicotine dependence; Z79.01 Long term (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; Z68.29 Body mass index [BMI] 29.0-29.9, adult
CPT/HCPCS: 36415; 51701; 80053; 81001; 85025; 99285-25; J0696; J7121

== ENCOUNTER 2022-11-20 00:01 | Emergency (ER) | payer MEDICARE, OTHER ==
[~2022-11-20] VITALS: Ht 177.8 cm; Wt 94.5 kg
--- OUTSIDE RECORDS SUMMARY | ~2022-11-20 | XMS | Continuity of Care Document ---
Demographics + + + | Address | [address] | | | [place] [address] | + + + | Preferred Language | Unknown | + + + | Marital Status | | + + + | Adventism Affiliation | Unknown | + + + | Race | White | + + + | Ethnic Group | Not or | + + + Author + + + | Author | [facility] | + + + | Organization | [facility] | + + + | Address | [address] | | | [place] [address] | + + + | Phone | | + + + Care Team Providers + + + + | Care Sight Effects Specialist Name | Role | Phone | + + + + Unavailable | Unavailable | + + + + Unavailable | Unavailable | + + + + Unavailable | Unavailable | + + + + Unavailable | Unavailable | + + + + Unavailable | Unavailable | + + + + Unavailable | Unavailable | + + + + Unavailable | Unavailable | + + + + Unavailable | Unavailable | + + + + Unavailable | Unavailable | + + + + Allergies and Intolerances + + + + + + | date | description | facility | reaction | severity | + + + + + + | (no date) | Zolpidem | [facility] | (no reaction) | (no severity) | | | [facility] | | | + + + + + + | (no date) | Zolpidem | [facility] | (no reaction) | (no severity) | | | [facility] | | | + + + + + + | (no date) | zolpidem | [facility] | (no reaction) | (no severity) | | | | [facility] | | | + + + + + + | (no date) | ZOLPIDEM | [facility] | (no reaction) | (no severity) | + + + + + + | (no date) | Hallucinations | [facility] | (no reaction) | (no severity) | | | | [facility] | | | + + + + + + | (no date) | Zolpidem | [facility] | (no reaction) | (no severity) | | | | [facility] | | | + + + + + + | (no date) | zolpidem | [facility] | (no reaction) | (no severity) | + + + + + + | (no date) | latex | [facility] | (no reaction) | (no severity) | + + + + + + Encounters No information. Functional Status No information. Immunizations No information. Medications + + + + | date | description | facility | + + + + | 2021-10-10 00:00 | KETOCONAZOLE | [facility] | + + + + | 2021-11-17 00:00 | KETOCONAZOLE | [facility] | + + + + | 2021-12-03 00:00 | KETOCONAZOLE | [facility] | + + + + | 2022-06-01 00:00 | KETOCONAZOLE | [facility] | + + + + | 2022-06-10 00:00 | KETOCONAZOLE | [facility] | + + + + | 2022-08-12 00:00 | KETOCONAZOLE | [facility] | + + + + | 2022-09-24 00:00 | KETOCONAZOLE | [facility] | + + + + | 2022-10-11 00:00 | KETOCONAZOLE | [facility] | + + + + | 2021-10-10 00:00 | TRIAMCINOLONE ACETONIDE | [facility] | + + + + | 2021-11-17 00:00 | TRIAMCINOLONE ACETONIDE | [facility] | + + + + | 2021-12-03 00:00 | TRIAMCINOLONE ACETONIDE | [facility] | + + + + | 2022-06-01 00:00 | TRIAMCINOLONE ACETONIDE | [facility] | + + + + | 2022-06-10 00:00 | TRIAMCINOLONE ACETONIDE | [facility] | + + + + | 2022-08-12 00:00 | TRIAMCINOLONE ACETONIDE | [facility] | + + + + | 2022-09-24 00:00 | TRIAMCINOLONE ACETONIDE | [facility] | + + + + | 2022-10-11 00:00 | TRIAMCINOLONE ACETONIDE | [facility] | + + + + | 2021-10-08 00:00 | RIVAROXABAN | [facility] | + + + + | 2021-10-08 00:00 | RIVAROXABAN | [facility] | + + + + | 2021-10-08 00:00 | RIVAROXABAN | [facility] | + + + + | 2021-10-08 00:00 | RIVAROXABAN | [facility] | + + + + | 2021-10-08 00:00 | RIVAROXABAN | [facility] | + + + + | 2021-10-10 00:00 | RIVAROXABAN | [facility] | + + + + | 2021-11-17 00:00 | RIVAROXABAN | [facility] | + + + + | 2021-12-03 00:00 | RIVAROXABAN | [facility] | + + + + | 2022-06-01 00:00 | RIVAROXABAN | [facility] | + + + + | 2022-06-10 00:00 | RIVAROXABAN | [facility] | + + + + | 2022-08-12 00:00 | RIVAROXABAN | [facility] | + + + + | 2022-09-24 00:00 | RIVAROXABAN | [facility] | + + + + | 2022-10-11 00:00 | RIVAROXABAN | [facility] | + + + + | 2021-10-03 00:00 | Ergocalciferol (Vitamin | [facility] | | | D2) | | + + + + | 2021-10-10 00:00 | Ergocalciferol (Vitamin | [facility] | | | D2) | | + + + + | 2021-11-17 00:00 | Ergocalciferol (Vitamin | [facility] | | | D2) | | + + + + | 2021-12-03 00:00 | Ergocalciferol (Vitamin | [facility] | | | D2) | | + + + + | 2022-06-01 00:00 | Ergocalciferol (Vitamin | [facility] | | | D2) | | + + + + | 2022-06-10 00:00 | Ergocalciferol (Vitamin | [facility] | | | D2) | | + + + + | 2022-08-12 00:00 | Ergocalciferol (Vitamin | [facility] | | | D2) | | + + + + | 2022-09-24 00:00 | Ergocalciferol (Vitamin | [facility] | | | D2) | | + + + + | 2022-10-11 00:00 | Ergocalciferol (Vitamin | [facility] | | | D2) | | + + + + | 2022-06-10 00:00 | POTASSIUM CHLORIDE | [facility] | + + + + | 2022-06-10 00:00 | POTASSIUM CHLORIDE | [facility] | + + + + | 2022-06-10 00:00 | POTASSIUM CHLORIDE | [facility] | + + + + | 2021-10-03 00:00 | MELOXICAM | [facility] | + + + + | 2021-10-10 00:00 | MELOXICAM | [facility] | + + + + | 2021-11-17 00:00 | MELOXICAM | [facility] | + + + + | 2021-12-03 00:00 | MELOXICAM | [facility] | + + + + | 2022-06-01 00:00 | MELOXICAM | [facility] | + + + + | 2022-06-10 00:00 | MELOXICAM | [facility] | + + + + | 2022-08-12 00:00 | MELOXICAM | [facility] | + + + + | 2022-09-24 00:00 | MELOXICAM | [facility] | + + + + | 2022-10-11 00:00 | MELOXICAM | [facility] | + + + + | 2021-10-03 00:00 | NITROFURANTOIN | [facility] | | | MACROCRYSTAL | | + + + + | 2021-10-10 00:00 | NITROFURANTOIN | [facility] | | | MACROCRYSTAL | | + + + + | 2021-11-17 00:00 | NITROFURANTOIN | [facility] | | | MACROCRYSTAL | | + + + + | 2021-12-03 00:00 | NITROFURANTOIN | [facility] | | | MACROCRYSTAL | | + + + + | 2022-06-01 00:00 | NITROFURANTOIN | [facility] | | | MACROCRYSTAL | | + + + + | 2022-06-10 00:00 | NITROFURANTOIN | [facility] | | | MACROCRYSTAL | | + + + + | 2022-08-12 00:00 | NITROFURANTOIN | [facility] | | | MACROCRYSTAL | | + + + + | 2022-09-24 00:00 | NITROFURANTOIN | [facility] | | | MACROCRYSTAL | | + + + + | 2022-10-11 00:00 | NITROFURANTOIN | [facility] | | | MACROCRYSTAL | | + + + + | 2022-08-12 00:00 | SACUBITRIL/VALSARTAN | [facility] | + + + + | 2022-09-24 00:00 | SACUBITRIL/VALSARTAN | [facility] | + + + + | 2022-10-11 00:00 | SACUBITRIL/VALSARTAN | [facility] | + + + + | 2021-09-14 00:00 | CEPHALEXIN | [facility] | + + + + | 2021-09-14 00:00 | CEPHALEXIN | [facility] | + + + + | 2021-09-14 00:00 | CEPHALEXIN | [facility] | + + + + | 2021-09-14 00:00 | CEPHALEXIN | [facility] | + + + + | 2021-09-14 00:00 | CEPHALEXIN | [facility] | + + + + | 2021-09-14 00:00 | CEPHALEXIN | [facility] | + + + + | 2022-05-31 00:00 | CEPHALEXIN | [facility] | + + + + | 2022-05-31 00:00 | CEPHALEXIN | [facility] | + + + + | 2021-10-10 00:00 | DIGOXIN | [facility] | + + + + | 2021-11-17 00:00 | DIGOXIN | [facility] | + + + + | 2021-12-03 00:00 | DIGOXIN | [facility] | + + + + | 2022-06-01 00:00 | DIGOXIN | [facility] | + + + + | 2022-06-10 00:00 | DIGOXIN | [facility] | + + + + | 2022-08-12 00:00 | DIGOXIN | [facility] | + + + + | 2022-09-24 00:00 | DIGOXIN | [facility] | + + + + | 2022-10-11 00:00 | DIGOXIN | [facility] | + + + + | 2021-10-03 00:00 | | [facility] | | | SULFAMETHOXAZOLE/TRIMETHOPR | | | | IM | | + + + + | 2021-10-10 00:00 | | [facility] | | | SULFAMETHOXAZOLE/TRIMETHOPR | | | | IM | | + + + + | 2021-11-17 00:00 | | [facility] | | | SULFAMETHOXAZOLE/TRIMETHOPR | | | | IM | | + + + + | 2021-12-03 00:00 | | [facility] | | | SULFAMETHOXAZOLE/TRIMETHOPR | | | | IM | | + + + + | 2022-06-01 00:00 | | [facility] | | | SULFAMETHOXAZOLE/TRIMETHOPR | | | | IM | | + + + + | 2022-06-10 00:00 | | [facility] | | | SULFAMETHOXAZOLE/TRIMETHOPR | | | | IM | | + + + + | 2022-08-12 00:00 | | [facility] | | | SULFAMETHOXAZOLE/TRIMETHOPR | | | | IM | | + + + + | 2022-09-24 00:00 | | [facility] | | | SULFAMETHOXAZOLE/TRIMETHOPR | | | | IM | | + + + + | 2022-10-11 00:00 | | [facility] | | | SULFAMETHOXAZOLE/TRIMETHOPR | | | | IM | | + + + + | 2022-08-12 00:00 | TORSEMIDE | [facility] | + + + + | 2022-09-24 00:00 | TORSEMIDE | [facility] | + + + + | 2021-10-03 00:00 | FOLIC ACID | [facility] | + + + + | 2021-10-03 00:00 | CHOLECALCIFEROL (VITAMIN | [facility] | | | D3) | | + + + + | 2021-10-10 00:00 | CHOLECALCIFEROL (VITAMIN | [facility] | | | D3) | | + + + + | 2021-11-17 00:00 | CHOLECALCIFEROL (VITAMIN | [facility] | | | D3) | | + + + + | 2021-12-03 00:00 | CHOLECALCIFEROL (VITAMIN | [facility] | | | D3) | | + + + + | 2022-06-01 00:00 | CHOLECALCIFEROL (VITAMIN | [facility] | | | D3) | | + + + + | 2022-06-10 00:00 | CHOLECALCIFEROL (VITAMIN | [facility] | | | D3) | | + + + + | 2022-08-12 00:00 | CHOLECALCIFEROL (VITAMIN | [facility] | | | D3) | | + + + + | 2022-09-24 00:00 | CHOLECALCIFEROL (VITAMIN | [facility] | | | D3) | | + + + + | 2022-10-11 00:00 | CHOLECALCIFEROL (VITAMIN | [facility] | | | D3) | | + + + + | 2022-08-12 00:00 | CEFDINIR | [facility] | + + + + | 2022-08-12 00:00 | CEFDINIR | [facility] | + + + + | 2022-06-10 00:00 | FUROSEMIDE | [facility] | + + + + | 2022-06-10 00:00 | FUROSEMIDE | [facility] | + + + + | 2022-06-10 00:00 | FUROSEMIDE | [facility] | + + + + | 2021-10-10 00:00 | KETOCONAZOLE | [facility] | + + + + | 2021-11-17 00:00 | KETOCONAZOLE | [facility] | + + + + | 2021-12-03 00:00 | KETOCONAZOLE | [facility] | + + + + | 2022-06-01 00:00 | KETOCONAZOLE | [facility] | + + + + | 2022-06-10 00:00 | KETOCONAZOLE | [facility] | + + + + | 2022-08-12 00:00 | KETOCONAZOLE | [facility] | + + + + | 2022-09-24 00:00 | KETOCONAZOLE | [facility] | + + + + | 2022-10-11 00:00 | KETOCONAZOLE | [facility] | + + + + | 2021-10-03 00:00 | Tramadol HCl | [facility] | + + + + | 2021-10-03 00:00 | CYANOCOBALAMIN | [facility] | + + + + | 2021-10-10 00:00 | CYANOCOBALAMIN | [facility] | + + + + | 2021-11-17 00:00 | CYANOCOBALAMIN | [facility] | + + + + | 2021-12-03 00:00 | CYANOCOBALAMIN | [facility] | + + + + | 2022-06-01 00:00 | CYANOCOBALAMIN | [facility] | + + + + | 2022-06-10 00:00 | CYANOCOBALAMIN | [facility] | + + + + | 2022-08-12 00:00 | CYANOCOBALAMIN | [facility] | + + + + | 2022-09-24 00:00 | CYANOCOBALAMIN | [facility] | + + + + | 2022-10-11 00:00 | CYANOCOBALAMIN | [facility] | + + + + | 2022-10-11 00:00 | FLUOXETINE HCL | [facility] | + + + + | 2021-10-08 00:00 | GABAPENTIN | [facility] | + + + + | 2021-10-08 00:00 | GABAPENTIN | [facility] | + + + + | 2021-10-08 00:00 | GABAPENTIN | [facility] | + + + + | 2021-10-08 00:00 | GABAPENTIN | [facility] | + + + + | 2021-10-08 00:00 | GABAPENTIN | [facility] | + + + + | 2021-10-10 00:00 | GABAPENTIN | [facility] | + + + + | 2021-11-17 00:00 | GABAPENTIN | [facility] | + + + + | 2021-12-03 00:00 | GABAPENTIN | [facility] | + + + + | 2022-06-01 00:00 | GABAPENTIN | [facility] | + + + + | 2022-06-10 00:00 | GABAPENTIN | [facility] | + + + + | 2022-08-12 00:00 | GABAPENTIN | [facility] | + + + + | 2022-09-24 00:00 | GABAPENTIN | [facility] | + + + + | 2022-10-11 00:00 | GABAPENTIN | [facility] | + + + + | 2021-10-10 00:00 | MELOXICAM | [facility] | + + + + | 2021-11-17 00:00 | MELOXICAM | [facility] | + + + + | 2021-12-03 00:00 | MELOXICAM | [facility] | + + + + | 2022-06-01 00:00 | MELOXICAM | [facility] | + + + + | 2022-06-10 00:00 | MELOXICAM | [facility] | + + + + | 2022-08-12 00:00 | MELOXICAM | [facility] | + + + + | 2022-09-24 00:00 | MELOXICAM | [facility] | + + + + | 2022-10-11 00:00 | MELOXICAM | [facility] | + + + + | 2022-10-11 00:00 | FUROSEMIDE | [facility] | + + + + | 2021-10-03 00:00 | ESCITALOPRAM OXALATE | [facility] | + + + + | 2021-10-03 00:00 | BUPRENORPHINE HCL | [facility] | + + + + | 2021-10-03 00:00 | ROPINIROLE HCL | [facility] | + + + + | 2021-10-08 00:00 | ROPINIROLE HCL | [facility] | + + + + | 2021-10-08 00:00 | ROPINIROLE HCL | [facility] | + + + + | 2021-10-08 00:00 | ROPINIROLE HCL | [facility] | + + + + | 2021-10-08 00:00 | ROPINIROLE HCL | [facility] | + + + + | 2021-10-08 00:00 | ROPINIROLE HCL | [facility] | + + + + | 2021-10-10 00:00 | ROPINIROLE HCL | [facility] | + + + + | 2021-11-17 00:00 | ROPINIROLE HCL | [facility] | + + + + | 2021-12-03 00:00 | ROPINIROLE HCL | [facility] | + + + + | 2022-06-01 00:00 | ROPINIROLE HCL | [facility] | + + + + | 2022-06-10 00:00 | ROPINIROLE HCL | [facility] | + + + + | 2022-08-12 00:00 | ROPINIROLE HCL | [facility] | + + + + | 2022-09-24 00:00 | ROPINIROLE HCL | [facility] | + + + + | 2022-10-11 00:00 | ROPINIROLE HCL | [facility] | + + + + | 2021-10-03 00:00 | ATORVASTATIN CALCIUM | [facility] | + + + + | 2021-10-10 00:00 | ATORVASTATIN CALCIUM | [facility] | + + + + | 2021-11-17 00:00 | ATORVASTATIN CALCIUM | [facility] | + + + + | 2021-12-03 00:00 | ATORVASTATIN CALCIUM | [facility] | + + + + | 2022-06-01 00:00 | ATORVASTATIN CALCIUM | [facility] | + + + + | 2022-06-10 00:00 | ATORVASTATIN CALCIUM | [facility] | + + + + | 2022-08-12 00:00 | ATORVASTATIN CALCIUM | [facility] | + + + + | 2022-09-24 00:00 | ATORVASTATIN CALCIUM | [facility] | + + + + | 2022-10-11 00:00 | ATORVASTATIN CALCIUM | [facility] | + + + + | 2022-10-11 00:00 | CARVEDILOL | [facility] | + + + + | 2021-10-08 00:00 | TRAMADOL HCL | [facility] | + + + + | 2021-10-08 00:00 | TRAMADOL HCL | [facility] | + + + + | 2021-10-08 00:00 | TRAMADOL HCL | [facility] | + + + + | 2021-10-08 00:00 | TRAMADOL HCL | [facility] | + + + + | 2021-10-08 00:00 | TRAMADOL HCL | [facility] | + + + + | 2021-10-10 00:00 | TRAMADOL HCL | [facility] | + + + + | 2021-11-17 00:00 | TRAMADOL HCL | [facility] | + + + + | 2021-12-03 00:00 | TRAMADOL HCL | [facility] | + + + + | 2022-06-01 00:00 | TRAMADOL HCL | [facility] | + + + + | 2022-06-10 00:00 | TRAMADOL HCL | [facility] | + + + + | 2022-08-12 00:00 | TRAMADOL HCL | [facility] | + + + + | 2022-09-24 00:00 | TRAMADOL HCL | [facility] | + + + + | 2022-10-11 00:00 | TRAMADOL HCL | [facility] | + + + + | 2021-10-03 00:00 | ZOLPIDEM TARTRATE | [facility] | + + + + | 2021-10-03 00:00 | WARFARIN SODIUM | [facility] | + + + + | 2021-10-10 00:00 | WARFARIN SODIUM | [facility] | + + + + | 2021-11-17 00:00 | WARFARIN SODIUM | [facility] | + + + + | 2021-12-03 00:00 | WARFARIN SODIUM | [facility] | + + + + | 2022-06-01 00:00 | WARFARIN SODIUM | [facility] | + + + + | 2022-06-10 00:00 | WARFARIN SODIUM | [facility] | + + + + | 2022-08-12 00:00 | WARFARIN SODIUM | [facility] | + + + + | 2022-09-24 00:00 | WARFARIN SODIUM | [facility] | + + + + | 2022-10-11 00:00 | WARFARIN SODIUM | [facility] | + + + + | 2021-10-03 00:00 | TRAZODONE HCL | [facility] | + + + + | 2021-10-10 00:00 | TRAZODONE HCL | [facility] | + + + + | 2021-11-17 00:00 | TRAZODONE HCL | [facility] | + + + + | 2021-12-03 00:00 | TRAZODONE HCL | [facility] | + + + + | 2022-06-01 00:00 | TRAZODONE HCL | [facility] | + + + + | 2022-06-10 00:00 | TRAZODONE HCL | [facility] | + + + + | 2022-08-12 00:00 | TRAZODONE HCL | [facility] | + + + + | 2022-09-24 00:00 | TRAZODONE HCL | [facility] | + + + + | 2022-10-11 00:00 | TRAZODONE HCL | [facility] | + + + + | 2021-10-08 00:00 | TRAZODONE HCL | [facility] | + + + + | 2021-10-08 00:00 | TRAZODONE HCL | [facility] | + + + + | 2021-10-08 00:00 | TRAZODONE HCL | [facility] | + + + + | 2021-10-08 00:00 | TRAZODONE HCL | [facility] | + + + + | 2021-10-08 00:00 | TRAZODONE HCL | [facility] | + + + + | 2021-10-08 00:00 | OXYBUTYNIN CHLORIDE | [facility] | + + + + | 2021-10-08 00:00 | OXYBUTYNIN CHLORIDE | [facility] | + + + + | 2021-10-08 00:00 | OXYBUTYNIN CHLORIDE | [facility] | + + + + | 2021-10-08 00:00 | OXYBUTYNIN CHLORIDE | [facility] | + + + + | 2021-10-08 00:00 | OXYBUTYNIN CHLORIDE | [facility] | + + + + | 2021-10-10 00:00 | OXYBUTYNIN CHLORIDE | [facility] | + + + + | 2021-11-17 00:00 | OXYBUTYNIN CHLORIDE | [facility] | + + + + | 2021-12-03 00:00 | OXYBUTYNIN CHLORIDE | [facility] | + + + + | 2022-06-01 00:00 | OXYBUTYNIN CHLORIDE | [facility] | + + + + | 2022-06-10 00:00 | OXYBUTYNIN CHLORIDE | [facility] | + + + + | 2022-08-12 00:00 | OXYBUTYNIN CHLORIDE | [facility] | + + + + | 2022-09-24 00:00 | OXYBUTYNIN CHLORIDE | [facility] | + + + + | 2022-10-11 00:00 | OXYBUTYNIN CHLORIDE | [facility] | + + + + | 2021-10-03 00:00 | METOPROLOL SUCCINATE | [facility] | + + + + | 2021-10-08 00:00 | METOPROLOL SUCCINATE | [facility] | + + + + | 2021-10-08 00:00 | METOPROLOL SUCCINATE | [facility] | + + + + | 2021-10-08 00:00 | METOPROLOL SUCCINATE | [facility] | + + + + | 2021-10-08 00:00 | METOPROLOL SUCCINATE | [facility] | + + + + | 2021-10-10 00:00 | METOPROLOL SUCCINATE | [facility] | + + + + | 2021-11-17 00:00 | METOPROLOL SUCCINATE | [facility] | + + + + | 2021-12-03 00:00 | METOPROLOL SUCCINATE | [facility] | + + + + | 2022-06-01 00:00 | METOPROLOL SUCCINATE | [facility] | + + + + | 2022-06-10 00:00 | METOPROLOL SUCCINATE | [facility] | + + + + | 2022-08-12 00:00 | METOPROLOL SUCCINATE | [facility] | + + + + | 2022-09-24 00:00 | METOPROLOL SUCCINATE | [facility] | + + + + | 2022-10-11 00:00 | METOPROLOL SUCCINATE | [facility] | + + + + | 2021-10-08 00:00 | Dalfampridine | [facility] | + + + + | 2021-10-08 00:00 | Dalfampridine | [facility] | + + + + | 2021-10-08 00:00 | Dalfampridine | [facility] | + + + + | 2021-10-08 00:00 | Dalfampridine | [facility] | + + + + | 2021-10-08 00:00 | Dalfampridine | [facility] | + + + + | 2021-10-10 00:00 | Dalfampridine | [facility] | + + + + | 2021-11-17 00:00 | Dalfampridine | [facility] | + + + + | 2021-12-03 00:00 | Dalfampridine | [facility] | + + + + | 2022-06-01 00:00 | Dalfampridine | [facility] | + + + + | 2022-06-10 00:00 | Dalfampridine | [facility] | + + + + | 2022-08-12 00:00 | Dalfampridine | [facility] | + + + + | 2022-09-24 00:00 | Dalfampridine | [facility] | + + + + | 2022-10-11 00:00 | Dalfampridine | [facility] | + + + + | 2022-06-01 00:00 | METHENAMINE HIPPURATE | [facility] | + + + + | 2022-06-10 00:00 | METHENAMINE HIPPURATE | [facility] | + + + + | 2022-08-12 00:00 | METHENAMINE HIPPURATE | [facility] | + + + + | 2022-09-24 00:00 | METHENAMINE HIPPURATE | [facility] | + + + + | 2021-10-08 00:00 | BUPROPION HCL | [facility] | + + + + | 2021-10-08 00:00 | BUPROPION HCL | [facility] | + + + + | 2021-10-08 00:00 | BUPROPION HCL | [facility] | + + + + | 2021-10-08 00:00 | BUPROPION HCL | [facility] | + + + + | 2021-10-08 00:00 | BUPROPION HCL | [facility] | + + + + | 2021-10-10 00:00 | BUPROPION HCL | [facility] | + + + + | 2021-11-17 00:00 | BUPROPION HCL | [facility] | + + + + | 2021-12-03 00:00 | BUPROPION HCL | [facility] | + + + + | 2022-06-01 00:00 | BUPROPION HCL | [facility] | + + + + | 2022-06-10 00:00 | BUPROPION HCL | [facility] | + + + + | 2022-08-12 00:00 | BUPROPION HCL | [facility] | + + + + | 2022-09-24 00:00 | BUPROPION HCL | [facility] | + + + + | 2022-10-11 00:00 | BUPROPION HCL | [facility] | + + + + Problems + + + + | date | description | facility | + + + + | 2019-04-22 00:00 | Urinary tract infection | [facility] | + + + + | 2019-04-22 00:00 | Urinary tract infection | [facility] | + + + + | 2019-04-22 00:00 | Urinary tract infection | [facility] | + + + + | 2019-04-22 00:00 | Urinary tract infection | [facility] | + + + + | 2019-04-22 00:00 | Urinary tract infection | [facility] | + + + + | 2019-04-22 00:00 | Urinary tract infection | [facility] | + + + + | 2019-04-22 00:00 | Problem with [place] | [facility] | | | catheter | | + + + + | 2019-04-22 00:00 | Problem with [facility] | | | catheter | | + + + + | 2019-04-22 00:00 | Problem with [facility] | | | catheter | | + + + + | 2019-04-22 00:00 | Problem with [facility] | | | catheter | | + + + + | 2019-04-22 00:00 | Problem with [place] | [facility] | | | catheter | | + + + + | 2019-04-22 00:00 | Problem with [place] | [facility] | | | catheter | | + + + + | 2019-08-23 00:00 | Edema of lower extremity | [facility] | + + + + | 2019-08-23 00:00 | Edema of lower extremity | [facility] | + + + + | 2019-08-23 00:00 | Edema of lower extremity | [facility] | + + + + | 2019-08-23 00:00 | Edema of lower extremity | [facility] | + + + + | 2019-08-23 00:00 | Edema of lower extremity | [facility] | + + + + | 2019-08-23 00:00 | Edema of lower extremity | [facility] | + + + + | 2021-04-21 00:00 | Atrial fibrillation with | [facility] | | | rapid ventricular response | | + + + + | 2021-04-21 00:00 | Atrial fibrillation with | [facility] | | | rapid ventricular response | | + + + + | 2021-04-21 00:00 | Atrial fibrillation with | [facility] | | | rapid ventricular response | | + + + + | 2021-04-21 00:00 | Atrial fibrillation with | [facility] | | | rapid ventricular response | | + + + + | 2021-04-21 00:00 | Atrial fibrillation with | [facility] | | | rapid ventricular response | | + + + + | 2021-04-21 00:00 | Atrial fibrillation with | [facility] | | | rapid ventricular response | | + + + + | 2021-07-27 07:58 | 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 | | | | ([id number]) | | + + + + | 2021-07-27 07:58 | UNSPECIFIED ABNORMALITIES | [facility] | | | OF GAIT AND MOBILITY | | + + + + | 2021-08-31 07:36 | 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 | | | | ([id number]) | | + + + + | 2021-08-31 07:36 | UNSPECIFIED ABNORMALITIES | [facility] | | | OF GAIT AND MOBILITY | | + + + + | 2021-08-31 09:00 | OTH DISORDERS OF | [facility] | | | PLASMA-PROTEIN METABOLISM, | | | | NEC | | + + + + | 2021-08-31 09:00 | SLEEP APNEA, UNSPECIFIED | [facility] | + + + + | 2021-08-31 09:00 | Essential (primary) | [facility] | | | hypertension | | + + + + | 2021-08-31 09:00 | OTHER PULMONARY EMBOLISM | [facility] | | | WITHOUT ACUTE COR PULMONA | | + + + + | 2021-08-31 09:00 | NONRHEUMATIC AORTIC | [facility] | | | (VALVE) STENOSIS | | + + + + | 2021-08-31 09:00 | UNSPECIFIED ATRIAL | [facility] | | | FIBRILLATION | | + + + + | 2021-08-31 09:00 | OTH SYMPTOMS AND SIGNS | [facility] | | | INVOLVING THE CIRC AND RESP | | | | | | + + + + | 2021-08-31 09:00 | EDEMA, UNSPECIFIED | [facility] | + + + + | 2021-08-31 09:00 | ENCOUNTER FOR THERAPEUTIC | [facility] | | | DRUG LEVEL MONITORING | | + + + + | 2021-08-31 09:00 | 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) USE OF | [facility] | | | ANTICOAGULANTS | | + + + + | 2021-09-14 00:00 | Dehydration | [facility] | + + + + | 2021-09-14 00:00 | Dehydration | [facility] | + + + + | 2021-09-14 00:00 | Dehydration | [facility] | + + + + | 2021-09-14 00:00 | Dehydration | [facility] | + + + + | 2021-09-14 00:00 | Dehydration | [facility] | + + + + | 2021-09-14 00:00 | Dehydration | [facility] | + + + + | 2021-09-14 09:49 | Dehydration | [facility] | | | [facility] | + + + + | 2021-09-14 09:49 | Urinary tract infection, | [facility] | | | site not specified | [facility] | + + + + | 2021-09-14 09:49 | Weakness | [facility] | | | | [facility] | + + + + | 2021-09-14 09:49 | Contact with and | [facility] | | | (suspected) exposure to | [facility] | | | COVID-19 | | + + + + | 2021-09-14 09:49 | terminal operator (current) use of | [facility] | | | 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 | [facility] | + + + + | 2021-09-14 09:49 | Other roasterman (current) | [facility] | | | drug therapy | [facility] | + + + + | 2021-09-14 09:49 | Personal history of other | [facility] | | | venous thrombosis and | [facility] | | | embolism | | + + + + | 2021-09-14 09:49 | Personal history of | [facility] | | | nicotine dependence | [facility] | + + + + | 2021-10-04 00:00 | Pulmonary edema | [facility] | + + + + | 2021-10-04 00:00 | Pulmonary edema | [facility] | + + + + | 2021-10-04 00:00 | Pulmonary edema | [facility] | + + + + | 2021-10-04 00:00 | Pulmonary edema | [facility] | + + + + | 2021-10-04 00:00 | Pulmonary edema | [facility] | + + + + | 2021-10-04 00:00 | Hypoxia | [facility] | + + + + | 2021-10-04 00:00 | Hypoxia | [facility] | + + + + | 2021-10-04 00:00 | Hypoxia | [facility] | + + + + | 2021-10-04 00:00 | Hypoxia | [facility] | + + + + | 2021-10-04 00:00 | Hypoxia | [facility] | + + + + | 2021-10-04 00:00 | Elevated international | [facility] | | | normalized ratio (INR) | | + + + + | 2021-10-04 00:00 | Elevated international | [facility] | | | normalized ratio (INR) | | + + + + | 2021-10-04 00:00 | Elevated international | [facility] | | | normalized ratio (INR) | | + + + + | 2021-10-04 00:00 | Elevated international | [facility] | | | normalized ratio (INR) | | + + + + | 2021-10-04 00:00 | Elevated international | [facility] | | | normalized ratio (INR) | | + + + + | 2021-12-03 07:24 | OBESITY, UNSPECIFIED | [facility] | + + + + | 2021-12-03 07:24 | UNSPECIFIED ATRIAL | [facility] | | | FIBRILLATION | | + + + + | 2021-12-03 07:24 | HEART FAILURE, UNSPECIFIED | [facility] | | | | | + + + + | 2021-12-03 07:24 | DISP FX OF BASE OF NECK OF | [facility] | | | RIGHT FEMUR, INIT FOR C | | + + + + | 2021-12-03 07:24 | STRIKING AGAINST OR STRUCK | [facility] | | | BY OTHER OBJECTS, INIT | | + + + + | 2021-12-03 07:24 | OTHER ALF (CURRENT) | [facility] | | | DRUG THERAPY | | + + + + | 2021-12-03 07:24 | PERSONAL HISTORY OF | [facility] | | | NICOTINE DEPENDENCE | | + + + + | 2021-12-03 07:24 | ALLERGY STATUS TO OTH | [facility] | | | DRUG/MEDS/BIOL SUBST STATUS | | | | | | + + + + | 2021-12-10 15:33:03 | Longstanding persistent | [facility] | | | atrial fibrillation | | + + + + | 2021-12-10 15:33:03 | 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 | | + + + + | 2021-12-10 15:33:03 | Heart failure, unspecified | [facility] | | | | | + + + + | 2021-12-10 15:33:03 | Unspecified | [facility] | | | atherosclerosis of [place] | | | | arteries of extremities, | | | | other extremity | | + + + + | 2021-12-10 15:33:03 | Other specified abnormal | [facility] | | | findings of blood chemistry | | | | | | + + + + | 2022-05-11 08:24 | DYSPHAGIA, UNSPECIFIED | [facility] | + + + + | 2022-05-11 08:24 | FX UNSP PART OF NK OF R | [facility] | | | FEMR, SUBS FOR CLOS FX W R | | + + + + | 2022-05-23 12:29 | FRACTURE OF UNSP PART OF | [facility] | | | NECK OF RIGHT FEMUR, INIT | | + + + + | 2022-05-23 12:29 | PRESENCE OF RIGHT | [facility] | | | ARTIFICIAL HIP JOINT | | + + + + | 2022-05-30 00:00 | FX UNSP PART OF NK OF R | [facility] | | | ENA CAVAZOS FOR CLOS FX W | | | | ROUTN HEAL | | + + + + | 2022-05-30 07:27 | DYSPHAGIA, UNSPECIFIED | [facility] | + + + + | 2022-05-30 07:27 | OTHER SPEECH DISTURBANCES | [facility] | + + + + | 2022-05-31 20:10 | OBESITY, UNSPECIFIED | [facility] | + + + + | 2022-05-31 20:10 | UNSPECIFIED ATRIAL | [facility] | | | FIBRILLATION | | + + + + | 2022-05-31 20:10 | URINARY TRACT INFECTION, | [facility] | | | SITE NOT SPECIFIED | | + + + + | 2022-05-31 20:10 | WEAKNESS | [facility] | + + + + | 2022-05-31 20:10 | OTHER 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) | [facility] | | | DRUG THERAPY | | + + + + | 2022-05-31 20:10 | PERSONAL HISTORY OF | [facility] | | | NICOTINE DEPENDENCE | | + + + + | 2022-05-31 20:10 | ALLERGY STATUS TO OTH | [facility] | | | DRUG/MEDS/BIOL SUBST STATUS | | | | | | + + + + | 2022-06-10 00:00 | Acute on chronic | [facility] | | | congestive heart failure | | + + + + | 2022-06-10 00:00 | Acute on chronic | [facility] | | | congestive heart failure | | + + + + | 2022-06-10 00:00 | Acute on chronic | [facility] | | | congestive heart failure | | + + + + | 2022-06-10 00:00 | History of laparoscopic | [facility] | | | adjustable gastric banding | | + + + + | 2022-06-10 00:00 | History of laparoscopic | [facility] | | | adjustable gastric banding | | + + + + | 2022-06-10 00:00 | History of laparoscopic | [facility] | | | adjustable gastric banding | | + + + + | 2022-06-10 18:37 | OBESITY, UNSPECIFIED | [facility] | + + + + | 2022-06-10 18:37 | UNSPECIFIED ATRIAL | [facility] | | | FIBRILLATION | | + + + + | 2022-06-10 18:37 | HEART FAILURE, UNSPECIFIED | [facility] | | | | | + + + + | 2022-06-10 18:37 | NAUSEA WITH VOMITING, | [facility] | | | UNSPECIFIED | | + + + + | 2022-06-10 18:37 | OTHER ALF (CURRENT) | [facility] | | | DRUG THERAPY | | + + + + | 2022-06-10 18:37 | PERSONAL HISTORY OF | [facility] | | | NICOTINE DEPENDENCE | | + + + + | 2022-06-10 18:37 | ALLERGY STATUS TO OTH | [facility] | | | DRUG/MEDS/BIOL SUBST STATUS | | | | | | + + + + | 2022-06-26 09:58 | DYSPHAGIA, UNSPECIFIED | [facility] | + + + + | 2022-06-28 14:31 | DYSPHAGIA, UNSPECIFIED | [facility] | + + + + | 2022-06-28 14:31 | OTHER SPEECH DISTURBANCES | [facility] | + + + + | 2022-07-25 06:28 | DYSPHAGIA, UNSPECIFIED | [facility] | + + + + | 2022-07-27 07:27 | DYSPHAGIA, UNSPECIFIED | [facility] | + + + + | 2022-08-12 00:54 | OBESITY, UNSPECIFIED | [facility] | + + + + | 2022-08-12 00:54 | UNSPECIFIED ATRIAL | [facility] | | | FIBRILLATION | | + + + + | 2022-08-12 00:54 | HEART FAILURE, UNSPECIFIED | [facility] | | | | | + + + + | 2022-08-12 00:54 | URINARY TRACT INFECTION, | [facility] | | | SITE NOT SPECIFIED | | + + + + | 2022-08-12 00:54 | WEAKNESS | [facility] | + + + + | 2022-08-12 00:54 | BODY MASS INDEX (BMI) | [facility] | | | 29.0-29.9, ADULT | | + + + + | 2022-08-12 00:54 | 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) USE OF | [facility] | | | ANTICOAGULANTS | | + + + + | 2022-08-12 00:54 | PERSONAL HISTORY OF | [facility] | | | NICOTINE DEPENDENCE | | + + + + | 2022-08-25 00:00 | DYSPHAGIA, UNSPECIFIED | [facility] | + + + + | 2022-09-28 14:04 | 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 | | + + + + | 2022-09-28 14:04 | DYSPHAGIA, UNSPECIFIED | [facility] | + + + + | 2022-10-11 00:00 | Multiple sclerosis | [facility] | + + + + | 2022-10-11 00:00 | Weakness | [facility] | + + + + | 2022-10-11 16:41 | OBESITY, UNSPECIFIED | [facility] | + + + + | 2022-10-11 16:41 | 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 | | | | (G35-G37) | | + + + + | 2022-10-11 16:41 | UNSPECIFIED ATRIAL | [facility] | | | FIBRILLATION | | + + + + | 2022-10-11 16:41 | HEART FAILURE, UNSPECIFIED | [facility] | | | | | + + + + | 2022-10-11 16:41 | DISORIENTATION, | [facility] | | | UNSPECIFIED | | + + + + | 2022-10-11 16:41 | WEAKNESS | [facility] | + + + + | 2022-10-11 16:41 | 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) USE OF | [facility] | | | ANTICOAGULANTS | | + + + + | 2022-10-11 16:41 | OTHER 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) | [facility] | | | DRUG THERAPY | | + + + + | 2022-10-11 16:41 | ALLERGY STATUS TO OTH | [facility] | | | DRUG/MEDS/BIOL SUBST STATUS | | | | | | + + + + | 2022-10-25 19:42 | OBESITY, UNSPECIFIED | [facility] | + + + + | 2022-10-25 19:42 | 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 | | | | (G35-G37) | | + + + + | 2022-10-25 19:42 | HEART FAILURE, UNSPECIFIED | [facility] | | | | | + + + + | 2022-10-25 19:42 | CHEST PAIN, UNSPECIFIED | [facility] | + + + + | 2022-10-25 19:42 | ALF (CURRENT) USE OF | [facility] | | | ANTITHROMBOTICS/ANTIPLA | | + + + + | 2022-10-25 19:42 | PERSONAL HISTORY OF | [facility] | | | NICOTINE DEPENDENCE | | + + + + | 2022-10-25 19:42 | ALLERGY STATUS TO OTH | [facility] | | | DRUG/MEDS/BIOL SUBST STATUS | | | | | | + + + + | 2022-10-25 19:42 | LATEX ALLERGY STATUS | [facility] | + + + + | 2022-10-25 19:42 | PRESENCE OF RIGHT | [facility] | | | ARTIFICIAL HIP JOINT | | + + + + | 2022-11-15 07:59 | DEGENERATIVE DISEASE OF | [facility] | | | NERVOUS SYSTEM, UNSPECIFIE | | + + + + | 2022-11-15 07:59 | 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 Results/Labs +--------+--------+ +---------+--------+---------+ | test | date | facility | value | unit | notes | +--------+--------+ +---------+--------+---------+ + + | Result panel 1 | + + + + + +-------+ + + | | 2021-09-14 | [facility] | 7.0 | (missing) | (missing) | | (unavailable | 10:05 | [facility] | | | | + + + +-------+ + + + + | Result panel 2 | + + + + + +--------+ + + | | 2021-09-14 | [facility] | 4.32 | (missing) | (missing) | | (unavailable | 10:05 | [facility] | | | | + + + +--------+ + + + + | Result panel 3 | + + + + + +--------+ + + | | 2021-09-14 | [facility] | 13.4 | (missing) | (missing) | | (unavailable | 10:05 | [facility] | | | | + + + +--------+ + + + + | Result panel 4 | + + + + + +--------+ + + | | 2021-09-14 | [facility] | 41.3 | (missing) | (missing) | | (unavailable | 10:05 | [facility] | | | | + + + +--------+ + + + + | Result panel 5 | + + + + + +--------+ + + | | 2021-09-14 | [facility] | 95.7 | (missing) | (missing) | | (unavailable | 10:05 | [facility] | | | | + + + +--------+ + + + + | Result panel 6 | + + + + + +--------+ + + | | 2021-09-14 | [facility] | 31.1 | (missing) | (missing) | | (unavailable | 10:05 | [facility] | | | | + + + +--------+ + + + + | Result panel 7 | + + + + + +--------+ + + | | 2021-09-14 | [facility] | 32.5 | (missing) | (missing) | | (unavailable | 10:05 | [facility] | | | | + + + +--------+ + + + + | Result panel 8 | + + + + + +--------+ + + | | 2021-09-14 | [facility] | 14.9 | (missing) | (missing) | | (unavailable | 10:05 | [facility] | | | | + + + +--------+ + + + + | Result panel 9 | + + + + + +-------+ + + | | 2021-09-14 | [facility] | 165 | (missing) | (missing) | | (unavailable | 10:05 | [facility] | | | | + + + +-------+ + + + + | Result panel 10 | + + + + + +--------+ + + | | 2021-09-14 | [facility] | 76.7 | (missing) | (missing) | | (unavailable | 10:05 | [facility] | | | | + + + +--------+ + + + + | Result panel 11 | + + + + + +-------+ + + | | 2021-09-14 | [facility] | 8.6 | (missing) | (missing) | | (unavailable | 10:05 | [facility] | | | | + + + +-------+ + + + + | Result panel 12 | + + + + + +-------+ + + | | 2021-09-14 | [facility] | 9.9 | (missing) | (missing) | | (unavailable | 10:05 | [facility] | | | | + + + +-------+ + + + + | Result panel 13 | + + + + + +-------+ + + | | 2021-09-14 | [facility] | 4.1 | (missing) | (missing) | | (unavailable | 10:05 | [facility] | | | | + + + +-------+ + + + + | Result panel 14 | + + + + + +-------+ + + | | 2021-09-14 | [facility] | 0.7 | (missing) | (missing) | | (unavailable | 10:05 | [facility] | | | | + + + +-------+ + + + + | Result panel 15 | + + + + + +--------+ + + | | 2021-09-14 | [facility] | 20.8 | (missing) | (missing) | | (unavailable | 10:05 | [facility] | | | | + + + +--------+ + + + + | Result panel 16 | + + + + + +--------+ + + | | 2021-09-14 | [facility] | 1.84 | (missing) | (missing) | | (unavailable | 10:05 | [facility] | | | | + + + +--------+ + + + + | Result panel 17 | + + + + + +--------+ + + | | 2021-09-14 | [facility] | 35.7 | (missing) | (missing) | | (unavailable | 10:05 | [facility] | | | | + + + +--------+ + + + + | Result panel 18 | + + + + + +-------+---------+ + | | 2021-09-14 | [facility] | 116 | mg/dL | (missing) | | (unavailable | 10:05 | [facility] | | | | + + + +-------+---------+ + + + | Result panel 19 | + + + + + +------+---------+ + | | 2021-09-14 | [facility] | 29 | mg/dL | (missing) | | (unavailable | 10:05 | [facility] | | | | + + + +------+---------+ + + + | Result panel 20 | + + + + + +--------+---------+ + | | 2021-09-14 | [facility] | 1.35 | mg/dL | (missing) | | (unavailable | 10:05 | [facility] | | | | + + + +--------+---------+ + + + | Result panel 21 | + + + + + +------+ + + | | 2021-09-14 | [facility] | 57 | (missing) | (missing) | | (unavailable | 10:05 | [facility] | | | | + + + +------+ + + + + | Result panel 22 | + + + + + +---------+ + + | | 2021-09-14 | [facility] | 21.48 | (missing) | (missing) | | (unavailable | 10:05 | [facility] | | | | + + + +---------+ + + + + | Result panel 23 | + + + + + +-------+ + + | | 2021-09-14 | [facility] | 141 | (missing) | (missing) | | (unavailable | 10:05 | [facility] | | | | + + + +-------+ + + + + | Result panel 24 | + + + + + +-------+ + + | | 2021-09-14 | [facility] | 4.4 | (missing) | (missing) | | (unavailable | 10:05 | [facility] | | | | + + + +-------+ + + + + | Result panel 25 | + + + + + +-------+ + + | | 2021-09-14 | [facility] | 106 | (missing) | (missing) | | (unavailable | 10:05 | [facility] | | | | + + + +-------+ + + + + | Result panel 26 | + + + + + +------+ + + | | 2021-09-14 | [facility] | 28 | (missing) | (missing) | | (unavailable | 10:05 | [facility] | | | | + + + +------+ + + + + | Result panel 27 | + + + + + +--------+ + + | | 2021-09-14 | [facility] | 11.4 | (missing) | (missing) | | (unavailable | 10:05 | [facility] | | | | + + + +--------+ + + + + | Result panel 28 | + + + + + +-------+---------+ + | | 2021-09-14 | [facility] | 8.8 | mg/dL | (missing) | | (unavailable | 10:05 | [facility] | | | | + + + +-------+---------+ + + + | Result panel 29 | + + + + + +-------+ + + | | 2021-09-14 | [facility] | 6.5 | (missing) | (missing) | | (unavailable | 10:05 | [facility] | | | | + + + +-------+ + + + + | Result panel 30 | + + + + + +-------+ + + | | 2021-09-14 | [facility] | 3.4 | (missing) | (missing) | | (unavailable | 10:05 | [facility] | | | | + + + +-------+ + + + + | Result panel 31 | + + + + + +-------+ + + | | 2021-09-14 | [facility] | 3.1 | (missing) | (missing) | | (unavailable | 10:05 | [facility] | | | | + + + +-------+ + + + + | Result panel 32 | + + + + + +--------+ + + | | 2021-09-14 | [facility] | 1.10 | (missing) | (missing) | | (unavailable | 10:05 | [facility] | | | | + + + +--------+ + + + + | Result panel 33 | + + + + + +-------+ + + | | 2021-09-14 | [facility] | 0.9 | (missing) | (missing) | | (unavailable | 10:05 | [facility] | | | | + + + +-------+ + + + + | Result panel 34 | + + + + + +------+ + + | | 2021-09-14 | [facility] | 87 | (missing) | (missing) | | (unavailable | 10:05 | [facility] | | | | + + + +------+ + + + + | Result panel 35 | + + + + + +------+ + + | | 2021-09-14 | [facility] | 86 | (missing) | (missing) | | (unavailable | 10:05 | [facility] | | | | + + + +------+ + + + + | Result panel 36 | + + + + + +------+ + + | | 2021-09-14 | [facility] | 88 | (missing) | (missing) | | (unavailable | 10:05 | [facility] | | | | + + + +------+ + + + + | Result panel 37 | + + + + + +-------+ + + | | 2021-09-14 | [facility] | 9.8 | (missing) | (missing) | | (unavailable | 10:05 | [facility] | | | | + + + +-------+ + + + + | Result panel 38 | + + + + + +--------+ + + | | 2021-09-14 | [facility] | 35.7 | (missing) | (missing) | | (unavailable | 10:05 | [facility] | | | | + + + +--------+ + + + + | Result panel 39 | + + + + + +-------+ + + | | 2021-09-14 | [facility] | 9.8 | (missing) | (missing) | | (unavailable | 10:05 | [facility] | | | | + + + +-------+ + + + + | Result panel 40 | + + + + + +--------+ + + | | 2021-09-14 | [facility] | 35.7 | (missing) | (missing) | | (unavailable | 10:05 | [facility] | | | | + + + +--------+ + + + + | Result panel 41 | + + + + + + + + + | | 2021-09-14 | [facility] | YELLOW | (missing) | (missing) | | (unavailable | 12:00 | [facility] | | | | + + + + + + + + + | Result panel 42 | + + + + + + + + + | | 2021-09-14 | [facility] | SL CLOUDY | (missing) | (missing) | | (unavailable | 12:00 | [facility] | | | | + + + + + + + + + | Result panel 43 | + + + + + + + + + | | 2021-09-14 | [facility] | NEGATIVE | (missing) | (missing) | | (unavailable | 12:00 | [facility] | | | | + + + + + + + + + | Result panel 44 | + + + + + + + + + | | 2021-09-14 | [facility] | NEGATIVE | (missing) | (missing) | | (unavailable | 12:00 | [facility] | | | | + + + + + + + + + | Result panel 45 | + + + + + +---------+ + + | | 2021-09-14 | [facility] | SMALL | (missing) | (missing) | | (unavailable | 12:00 | [facility] | | | | + + + +---------+ + + + + | Result panel 46 | + + + + + + + + + | | 2021-09-14 | [facility] | >=1.030 | (missing) | (missing) | | (unavailable | 12:00 | [facility] | | | | + + + + + + + + + | Result panel 47 | + + + + + + + + + | | 2021-09-14 | [facility] | NEGATIVE | (missing) | (missing) | | (unavailable | 12:00 | [facility] | | | | + + + + + + + + + | Result panel 48 | + + + + + +-------+ + + | | 2021-09-14 | [facility] | 5.5 | (missing) | (missing) | | (unavailable | 12:00 | [facility] | | | | + + + +-------+ + + + + | Result panel 49 | + + + + + + + + + | | 2021-09-14 | [facility] | NEGATIVE | (missing) | (missing) | | (unavailable | 12:00 | [facility] | | | | + + + + + + + + + | Result panel 50 | + + + + + + + + + | | 2021-09-14 | [facility] | NORMAL | (missing) | (missing) | | (unavailable | 12:00 | [facility] | | | | + + + + + + + + + | Result panel 51 | + + + + + + + + + | | 2021-09-14 | [facility] | POSITIVE | (missing) | (missing) | | (unavailable | 12:00 | [facility] | | | | + + + + + + + + + | Result panel 52 | + + + + + +---------+ + + | | 2021-09-14 | [facility] | SMALL | (missing) | (missing) | | (unavailable | 12:00 | [facility] | | | | + + + +---------+ + + + + | Result panel 53 | + + + + + +-------+ + + | | 2021-09-14 | [facility] | 2-3 | (missing) | (missing) | | (unavailable | 12:00 | [facility] | | | | + + + +-------+ + + + + | Result panel 54 | + + + + + +---------+ + + | | 2021-09-14 | [facility] | 12-20 | (missing) | (missing) | | (unavailable | 12:00 | [facility] | | | | + + + +---------+ + + + + | Result panel 55 | + + + + + + + + + | | 2021-09-14 | [facility] | SQUAMOUS 1+ | (missing) | (missing) | | (unavailable | 12:00 | [facility] | | | | + + + + + + + + + | Result panel 56 | + + + + + + + + + | | 2021-09-14 | [facility] | NONE SEEN | (missing) | (missing) | | (unavailable | 12:00 | [facility] | | | | + + + + + + + + + | Result panel 57 | + + + + + +------+ + + | | 2021-09-14 | [facility] | 3+ | (missing) | (missing) | | (unavailable | 12:00 | [facility] | | | | + + + +------+ + + + + | Result panel 58 | + + + + + + + + + | | 2021-09-14 | [facility] | NONE SEEN | (missing) | (missing) | | (unavailable | 12:00 | [facility] | | | | + + + + + + + + + | Result panel 59 | + + + + + +-------+ + + | | 2021-09-14 | [facility] | Yes | (missing) | (missing) | | (unavailable | 12:00 | [facility] | | | | + + + +-------+ + + + + | Result panel 60 | + + + + + +--------+ + + | | 2021-09-14 | [facility] | CATH | (missing) | (missing) | | (unavailable | 12:00 | [facility] | | | | + + + +--------+ + + + + | Result panel 61 | + + + + + + + + + | | 2021-09-14 | [facility] | NEGATIVE | (missing) | (missing) | | (unavailable | 12:00 | [facility] | | | | + + + + + + + + + | Result panel 62 | + + + + + + + + + | | 2021-09-14 | [facility] | NEGATIVE | (missing) | (missing) | | (unavailable | 12:00 | [facility] | | | | + + + + + + + + + | Result panel 63 | + + + + + + + + + | | 2021-09-14 | [facility] | NEGATIVE | (missing) | (missing) | | (unavailable | 12:00 | [facility] | | | | + + + + + + + + + | Result panel 64 | + + + + + + + + + | | 2021-09-14 | [facility] | NEGATIVE | (missing) | (missing) | | (unavailable | 12:00 | [facility] | | | | + + + + + + + + + | Result panel 65 | + + + + + + + + + | | 2021-09-14 | [facility] | NONE SEEN | (missing) | (missing) | | (unavailable | 12:00 | [facility] | | | | + + + + + + + + + | Result panel 66 | + + + + + + + + + | | 2021-09-14 | [facility] | NONE SEEN | (missing) | (missing) | | (unavailable | 12:00 | [facility] | | | | + + + + + + + + + | Result panel 67 | + + + + + +-------+ + + | | 2021-09-14 | [facility] | Yes | (missing) | (missing) | | (unavailable | 12:00 | [facility] | | | | + + + +-------+ + + + + | Result panel 68 | + + + + + +--------+ + + | | 2021-09-14 | [facility] | CATH | (missing) | (missing) | | (unavailable | 12:00 | [facility] | | | | + + + +--------+ + + + + | Result panel 69 | + + + + + +-------+ + + | | 2021-10-04 | [facility] | 6.9 | (missing) | (missing) | | (unavailable | 18:50 | [facility] | | | | + + + +-------+ + + + + | Result panel 70 | + + + + + +--------+ + + | | 2021-10-04 | [facility] | 4.37 | (missing) | (missing) | | (unavailable | 18:50 | [facility] | | | | + + + +--------+ + + + + | Result panel 71 | + + + + + +--------+ + + | | 2021-10-04 | [facility] | 13.4 | (missing) | (missing) | | (unavailable | 18:50 | [facility] | | | | + + + +--------+ + + + + | Result panel 72 | + + + + + +--------+ + + | | 2021-10-04 | [facility] | 41.3 | (missing) | (missing) | | (unavailable | 18:50 | [facility] | | | | + + + +--------+ + + + + | Result panel 73 | + + + + + +--------+ + + | | 2021-10-04 | [facility] | 94.5 | (missing) | (missing) | | (unavailable | 18:50 | [facility] | | | | + + + +--------+ + + + + | Result panel 74 | + + + + + +--------+ + + | | 2021-10-04 | [facility] | 30.8 | (missing) | (missing) | | (unavailable | 18:50 | [facility] | | | | + + + +--------+ + + + + | Result panel 75 | + + + + + +--------+ + + | | 2021-10-04 | [facility] | 32.6 | (missing) | (missing) | | (unavailable | 18:50 | [facility] | | | | + + + +--------+ + + + + | Result panel 76 | + + + + + +--------+ + + | | 2021-10-04 | [facility] | 15.8 | (missing) | (missing) | | (unavailable | 18:50 | [facility] | | | + + + +--------+ + + + + | Result panel 77 | + + + + + +-------+ + + | | 2021-10-04 | [facility] | 160 | (missing) | (missing) | | (unavailable | 18:50 | [facility] | | | + + + +-------+ + + + + | Result panel 78 | + + + + + +--------+ + + | | 2021-10-04 | [facility] | 77.9 | (missing) | (missing) | | (unavailable | 18:50 | [facility] | | | + + + +--------+ + + + + | Result panel 79 | + + + + + +-------+ + + | | 2021-10-04 | [facility] | 8.0 | (missing) | (missing) | | (unavailable | 18:50 | [facility] | | | + + + +-------+ + + + + | Result panel 80 | + + + + + +-------+ + + | | 2021-10-04 | [facility] | 7.6 | (missing) | (missing) | | (unavailable | 18:50 | [facility] | | | | + + + +-------+ + + + + | Result panel 81 | + + + + + +-------+ + + | | 2021-10-04 | [facility] | 5.6 | (missing) | (missing) | | (unavailable | 18:50 | [facility] | | | + + + +-------+ + + + + | Result panel 82 | + + + + + +-------+ + + | | 2021-10-04 | [facility] | 0.9 | (missing) | (missing) | | (unavailable | 18:50 | [facility] | | | + + + +-------+ + + + + | Result panel 83 | + + + + + +-------+ + + | | 2021-10-04 | [facility] | 6.3 | (missing) | (missing) | | (unavailable | 18:50 | [facility] | | | + + + +-------+ + + + + | Result panel 84 | + + + + + +-------+ + + | | 2021-10-04 | [facility] | 3.3 | (missing) | (missing) | | (unavailable | 18:50 | [facility] | | | | + + + +-------+ + + + + | Result panel 85 | + + + + + +-------+ + + | | 2021-10-04 | [facility] | 3.0 | (missing) | (missing) | | (unavailable | 18:50 | [facility] | | | | + + + +-------+ + + + + | Result panel 86 | + + + + + +--------+ + + | | 2021-10-04 | [facility] | 1.10 | (missing) | (missing) | | (unavailable | 18:50 | [facility] | | | + + + +--------+ + + + + | Result panel 87 | + + + + + +-------+ + + | | 2021-10-04 | [facility] | 1.1 | (missing) | (missing) | | (unavailable | 18:50 | [facility] | | | | + + + +-------+ + + + + | Result panel 88 | + + + + + +------+ + + | | 2021-10-04 | [facility] | 59 | (missing) | (missing) | | (unavailable | 18:50 | [facility] | | | | + + + +------+ + + + + | Result panel 89 | + + + + + +-------+ + + | | 2021-10-04 | [facility] | 101 | (missing) | (missing) | | (unavailable | 18:50 | [facility] | | | | + + + +-------+ + + + + | Result panel 90 | + + + + + +-------+ + + | | 2021-10-04 | [facility] | 101 | (missing) | (missing) | | (unavailable | 18:50 | [facility] | | | | + + + +-------+ + + + + | Result panel 91 | + + + + + +-------+ + + | | 2021-10-04 | [facility] | 0.3 | (missing) | (missing) | | (unavailable | 18:50 | [facility] | | | | + + + +-------+ + + + + | Result panel 92 | + + + + + +-------+ + + | | 2021-10-04 | [facility] | 0.3 | (missing) | (missing) | | (unavailable | 18:50 | [facility] | | | | + + + +-------+ + + + + | Result panel 93 | + + + + + + + + + | | 2021-10-04 | [facility] | YELLOW | (missing) | (missing) | | (unavailable | 19:47 | [facility] | | | | + + + + + + + + + | Result panel 94 | + + + + + +---------+ + + | | 2021-10-04 | [facility] | CLEAR | (missing) | (missing) | | (unavailable | 19:47 | [facility] | | | | + + + +---------+ + + + + | Result panel 95 | + + + + + + + + + | | 2021-10-04 | [facility] | NEGATIVE | (missing) | (missing) | | (unavailable | 19:47 | [facility] | | | | + + + + + + + + + | Result panel 96 | + + + + + + + + + | | 2021-10-04 | [facility] | POSITIVE | (missing) | (missing) | | (unavailable | 19:47 | [facility] | | | | + + + + + + + + + | Result panel 97 | + + + + + +---------+ + + | | 2021-10-04 | [facility] | SMALL | (missing) | (missing) | | (unavailable | 19:47 | [facility] | | | | + + + +---------+ + + + + | Result panel 98 | + + + + + + + + + | | 2021-10-04 | [facility] | >=1.030 | (missing) | (missing) | | (unavailable | 19:47 | [facility] | | | | + + + + + + + + + | Result panel 99 | + + + + + +---------+ + + | | 2021-10-04 | [facility] | LARGE | (missing) | (missing) | | (unavailable | 19:47 | [facility] | | | | + + + +---------+ + + + + | Result panel 100 | + + + + + +-------+ + + | | 2021-10-04 | [facility] | 5.5 | (missing) | (missing) | | (unavailable | 19:47 | [facility] | | | | + + + +-------+ + + + + | Result panel 101 | + + + + + +-------+ + + | | 2021-10-04 | [facility] | 100 | (missing) | (missing) | | (unavailable | 19:47 | [facility] | | | | + + + +-------+ + + + + | Result panel 102 | + + + + + +-------+ + + | | 2021-10-04 | [facility] | 1.0 | (missing) | (missing) | | (unavailable | 19:47 | [facility] | | | | + + + +-------+ + + + + | Result panel 103 | + + + + + + + + + | | 2021-10-04 | [facility] | NEGATIVE | (missing) | (missing) | | (unavailable | 19:47 | [facility] | | | | + + + + + + + + + | Result panel 104 | + + + + + + + + + | | 2021-10-04 | [facility] | NEGATIVE | (missing) | (missing) | | (unavailable | 19:47 | [facility] | | | | + + + + + + + + + | Result panel 105 | + + + + + +-------+ + + | | 2021-10-04 | [facility] | 4-6 | (missing) | (missing) | | (unavailable | 19:47 | [facility] | | | | + + + +-------+ + + + + | Result panel 106 | + + + + + +--------+ + + | | 2021-10-04 | [facility] | 7-11 | (missing) | (missing) | | (unavailable | 19:47 | [facility] | | | | + + + +--------+ + + + + | Result panel 107 | + + + + + +-----+ + + | | 2021-10-04 | [facility] | 0 | (missing) | (missing) | | (unavailable | 19:47 | [facility] | | | | + + + +-----+ + + + + | Result panel 108 | + + + + + +------+ + + | | 2021-10-04 | [facility] | 2+ | (missing) | (missing) | | (unavailable | 19:47 | [facility] | | | | + + + +------+ + + + + | Result panel 109 | + + + + + + + + + | | 2021-10-04 | [facility] | NEGATIVE | (missing) | (missing) | | (unavailable | 20:04 | [facility] | | | | + + + + + + + + + | Result panel 110 | + + + + + + + + + | | 2021-10-04 | [facility] | NEGATIVE | (missing) | (missing) | | (unavailable | 20:04 | [facility] | | | | + + + + + + + + + | Result panel 111 | + + + + + + + + + | | 2021-10-04 | [facility] | NEGATIVE | (missing) | (missing) | | (unavailable | 20:04 | [facility] | | | | + + + + + + + + + | Result panel 112 | + + + + + + + + + | | 2021-10-04 | [facility] | NEGATIVE | (missing) | (missing) | | (unavailable | 20:04 | [facility] | | | | + + + + + + + + + | Result panel 113 | + + + + + + + + + | | 2021-10-04 | [facility] | NEGATIVE | (missing) | (missing) | | (unavailable | 20:04 | [facility] | | | | + + + + + + + + + | Result panel 114 | + + + + + + + + + | | 2021-10-04 | [facility] | NEGATIVE | (missing) | (missing) | | (unavailable | 20:04 | [facility] | | | | + + + + + + + + + | Result panel 115 | + + + + + +-------+---------+ + | | 2021-10-06 | [facility] | 2.0 | mg/dL | (missing) | | (unavailable | 05:51 | [facility] | | | | + + + +-------+---------+ + + + | Result panel 116 | + + + + + +-------+---------+ + | | 2021-10-06 | [facility] | 2.0 | mg/dL | (missing) | | (unavailable | 05:51 | [facility] | | | | + + + +-------+---------+ + + + | Result panel 117 | + + + + + +--------+ + + | | 2021-10-07 | [facility] | 18.8 | (missing) | (missing) | | (unavailable | 05:07 | [facility] | | | | + + + +--------+ + + + + | Result panel 118 | + + + + + +--------+ + + | | 2021-10-07 | [facility] | 1.63 | (missing) | (missing) | | (unavailable | 05:07 | [facility] | | | | + + + +--------+ + + + + | Result panel 119 | + + + + + +--------+ + + | | 2021-10-07 | [facility] | 18.8 | (missing) | (missing) | | (unavailable | 05:07 | [facility] | | | | + + + +--------+ + + + + | Result panel 120 | + + + + + +--------+ + + | | 2021-10-07 | [facility] | 1.63 | (missing) | (missing) | | (unavailable | 05:07 | [facility] | | | + + + +--------+ + + + + | Result panel 121 | + + + + + +-------+---------+ + | | 2021-10-08 | [facility] | 102 | mg/dL | (missing) | | (unavailable | 05:25 | [facility] | | | | + + + +-------+---------+ + + + | Result panel 122 | + + + + + +------+---------+ + | | 2021-10-08 | [facility] | 30 | mg/dL | (missing) | | (unavailable | 05:25 | [facility] | | | | + + + +------+---------+ + + + | Result panel 123 | + + + + + +--------+---------+ + | | 2021-10-08 | [facility] | 1.28 | mg/dL | (missing) | | (unavailable | 05:25 | [facility] | | | | + + + +--------+---------+ + + + | Result panel 124 | + + + + + +------+ + + | | 2021-10-08 | [facility] | 61 | (missing) | (missing) | | (unavailable | 05:25 | [facility] | | | | + + + +------+ + + + + | Result panel 125 | + + + + + +---------+ + + | | 2021-10-08 | [facility] | 23.43 | (missing) | (missing) | | (unavailable | 05:25 | [facility] | | | | + + + +---------+ + + + + | Result panel 126 | + + + + + +-------+ + + | | 2021-10-08 | [facility] | 138 | (missing) | (missing) | | (unavailable | 05:25 | [facility] | | | | + + + +-------+ + + + + | Result panel 127 | + + + + + +-------+ + + | | 2021-10-08 | [facility] | 4.3 | (missing) | (missing) | | (unavailable | 05:25 | [facility] | | | | + + + +-------+ + + + + | Result panel 128 | + + + + + +-------+ + + | | 2021-10-08 | [facility] | 103 | (missing) | (missing) | | (unavailable | 05:25 | [facility] | | | | + + + +-------+ + + + + | Result panel 129 | + + + + + +------+ + + | | 2021-10-08 | [facility] | 31 | (missing) | (missing) | | (unavailable | 05:25 | [facility] | | | | + + + +------+ + + + + | Result panel 130 | + + + + + +-------+ + + | | 2021-10-08 | [facility] | 8.3 | (missing) | (missing) | | (unavailable | 05:25 | [facility] | | | | + + + +-------+ + + + + | Result panel 131 | + + + + + +-------+---------+ + | | 2021-10-08 | [facility] | 8.6 | mg/dL | (missing) | | (unavailable | 05:25 | [facility] | | | | + + + +-------+---------+ + + + | Result panel 132 | + + + + + + + + + | | 2021-10-08 | [facility] | NEGATIVE | (missing) | (missing) | | (unavailable | 12:40 | [facility] | | | | + + + + + + + + + | Result panel 133 | + + + + + + + + + | | 2021-10-08 | [facility] | NEGATIVE | (missing) | (missing) | | (unavailable | 12:40 | [facility] | | | | + + + + + + + + + | Result panel 134 | + + + + + +-------+ + + | | 2021-11-13 | [facility] | 4.4 | (missing) | (missing) | | (unavailable | 12:34 | [facility] | | | | + + + +-------+ + + + + | Result panel 135 | + + + + + +--------+ + + | | 2021-11-13 | [facility] | 3.79 | (missing) | (missing) | | (unavailable | 12:34 | [facility] | | | | + + + +--------+ + + + + | Result panel 136 | + + + + + +--------+ + + | | 2021-11-13 | [facility] | 11.9 | (missing) | (missing) | | (unavailable | 12:34 | [facility] | | | | + + + +--------+ + + + + | Result panel 137 | + + + + + +--------+ + + | | 2021-11-13 | [facility] | 36.2 | (missing) | (missing) | | (unavailable | 12:34 | [facility] | | | | + + + +--------+ + + + + | Result panel 138 | + + + + + +--------+ + + | | 2021-11-13 | [facility] | 95.5 | (missing) | (missing) | | (unavailable | 12:34 | [facility] | | | | + + + +--------+ + + + + | Result panel 139 | + + + + + +--------+ + + | | 2021-11-13 | [facility] | 31.4 | (missing) | (missing) | | (unavailable | 12:34 | [facility] | | | | + + + +--------+ + + + + | Result panel 140 | + + + + + +--------+ + + | | 2021-11-13 | [facility] | 32.9 | (missing) | (missing) | | (unavailable | 12:34 | [facility] | | | | + + + +--------+ + + + + | Result panel 141 | + + + + + +--------+ + + | | 2021-11-13 | [facility] | 16.0 | (missing) | (missing) | | (unavailable | 12:34 | [facility] | | | | + + + +--------+ + + + + | Result panel 142 | + + + + + +-------+ + + | | 2021-11-13 | [facility] | 135 | (missing) | (missing) | | (unavailable | 12:34 | [facility] | | | | + + + +-------+ + + + + | Result panel 143 | + + + + + +--------+ + + | | 2021-11-13 | [facility] | 63.3 | (missing) | (missing) | | (unavailable | 12:34 | [facility] | | | | + + + +--------+ + + + + | Result panel 144 | + + + + + +--------+ + + | | 2021-11-13 | [facility] | 14.8 | (missing) | (missing) | | (unavailable | 12:34 | [facility] | | | + + + +--------+ + + + + | Result panel 145 | + + + + + +--------+ + + | | 2021-11-13 | [facility] | 15.1 | (missing) | (missing) | | (unavailable | 12:34 | [facility] | | | + + + +--------+ + + + + | Result panel 146 | + + + + + +-------+ + + | | 2021-11-13 | [facility] | 5.6 | (missing) | (missing) | | (unavailable | 12:34 | [facility] | | | + + + +-------+ + + + + | Result panel 147 | + + + + + +-------+ + + | | 2021-11-13 | [facility] | 1.2 | (missing) | (missing) | | (unavailable | 12:34 | [facility] | | | + + + +-------+ + + + + | Result panel 148 | + + + + + +------+---------+ + | | 2021-11-13 | [facility] | 37 | mg/dL | (missing) | | (unavailable | 12:34 | [facility] | | | | + + + +------+---------+ + + + | Result panel 149 | + + + + + +------+---------+ + | | 2021-11-13 | [facility] | 20 | mg/dL | (missing) | | (unavailable | 12:34 | [facility] | | | | + + + +------+---------+ + + + | Result panel 150 | + + + + + +--------+---------+ + | | 2021-11-13 | [facility] | 1.47 | mg/dL | (missing) | | (unavailable | 12:34 | [facility] | | | + + + +--------+---------+ + + + | Result panel 151 | + + + + + +------+ + + | | 2021-11-13 | [facility] | 51 | (missing) | (missing) | | (unavailable | 12:34 | [facility] | | | | + + + +------+ + + + + | Result panel 152 | + + + + + +---------+ + + | | 2021-11-13 | [facility] | 13.60 | (missing) | (missing) | | (unavailable | 12:34 | [facility] | | | | + + + +---------+ + + + + | Result panel 153 | + + + + + +-------+ + + | | 2021-11-13 | [facility] | 144 | (missing) | (missing) | | (unavailable | 12:34 | [facility] | | | | + + + +-------+ + + + + | Result panel 154 | + + + + + +-------+ + + | | 2021-11-13 | [facility] | 3.0 | (missing) | (missing) | | (unavailable | 12:34 | [facility] | | | | + + + +-------+ + + + + | Result panel 155 | + + + + + +-------+ + + | | 2021-11-13 | [facility] | 109 | (missing) | (missing) | | (unavailable | 12:34 | [facility] | | | | + + + +-------+ + + + + | Result panel 156 | + + + + + +------+ + + | | 2021-11-13 | [facility] | 27 | (missing) | (missing) | | (unavailable | 12:34 | [facility] | | | | + + + +------+ + + + + | Result panel 157 | + + + + + +--------+ + + | | 2021-11-13 | [facility] | 11.0 | (missing) | (missing) | | (unavailable | 12:34 | [facility] | | | | + + + +--------+ + + + + | Result panel 158 | + + + + + +-------+---------+ + | | 2021-11-13 | [facility] | 7.1 | mg/dL | (missing) | | (unavailable | 12:34 | [facility] | | | | + + + +-------+---------+ + + + | Result panel 159 | + + + + + +-------+ + + | | 2021-11-13 | [facility] | 5.2 | (missing) | (missing) | | (unavailable | 12:34 | [facility] | | | | + + + +-------+ + + + + | Result panel 160 | + + + + + +-------+ + + | | 2021-11-13 | [facility] | 2.8 | (missing) | (missing) | | (unavailable | 12:34 | [facility] | | | | + + + +-------+ + + + + | Result panel 161 | + + + + + +-------+ + + | | 2021-11-13 | [facility] | 2.4 | (missing) | (missing) | | (unavailable | 12:34 | [facility] | | | | + + + +-------+ + + + + | Result panel 162 | + + + + + +--------+ + + | | 2021-11-13 | [facility] | 1.17 | (missing) | (missing) | | (unavailable | 12:34 | [facility] | | | | + + + +--------+ + + + + | Result panel 163 | + + + + + +-------+ + + | | 2021-11-13 | [facility] | 0.7 | (missing) | (missing) | | (unavailable | 12:34 | [facility] | | | | + + + +-------+ + + + + | Result panel 164 | + + + + + +------+ + + | | 2021-11-13 | [facility] | 10 | (missing) | (missing) | | (unavailable | 12:34 | [facility] | | | | + + + +------+ + + + + | Result panel 165 | + + + + + +-----+ + + | | 2021-11-13 | [facility] | 9 | (missing) | (missing) | | (unavailable | 12:34 | [facility] | | | | + + + +-----+ + + + + | Result panel 166 | + + + + + +------+ + + | | 2021-11-13 | [facility] | 51 | (missing) | (missing) | | (unavailable | 12:34 | [facility] | | | | + + + +------+ + + + + | Result panel 167 | + + + + + +-------+ + + | | 2021-11-13 | [facility] | 159 | (missing) | (missing) | | (unavailable | 12:34 | [facility] | | | | + + + +-------+ + + + + | Result panel 168 | + + + + + +-------+ + + | | 2021-11-13 | [facility] | 5.9 | (missing) | (missing) | | (unavailable | 12:34 | [facility] | | | | + + + +-------+ + + + + | Result panel 169 | + + + + + +-------+ + + | | 2021-11-13 | [facility] | 0.7 | (missing) | (missing) | | (unavailable | 12:34 | [facility] | | | | + + + +-------+ + + + + | Result panel 170 | + + + + + + + + + | | 2021-11-13 | [facility] | YELLOW | (missing) | (missing) | | (unavailable | 12:55 | [facility] | | | | + + + + + + + + + | Result panel 171 | + + + + + + + + + | | 2021-11-13 | [facility] | SL CLOUDY | (missing) | (missing) | | (unavailable | 12:55 | [facility] | | | | + + + + + + + + + | Result panel 172 | + + + + + + + + + | | 2021-11-13 | [facility] | NEGATIVE | (missing) | (missing) | | (unavailable | 12:55 | [facility] | | | | + + + + + + + + + | Result panel 173 | + + + + + + + + + | | 2021-11-13 | [facility] | NEGATIVE | (missing) | (missing) | | (unavailable | 12:55 | [facility] | | | | + + + + + + + + + | Result panel 174 | + + + + + + + + + | | 2021-11-13 | [facility] | NEGATIVE | (missing) | (missing) | | (unavailable | 12:55 | [facility] | | | | + + + + + + + + + | Result panel 175 | + + + + + +---------+ + + | | 2021-11-13 | [facility] | 1.010 | (missing) | (missing) | | (unavailable | 12:55 | [facility] | | | | + + + +---------+ + + + + | Result panel 176 | + + + + + + + + + | | 2021-11-13 | [facility] | NEGATIVE | (missing) | (missing) | | (unavailable | 12:55 | [facility] | | | | + + + + + + + + + | Result panel 177 | + + + + + +-------+ + + | | 2021-11-13 | [facility] | 6.0 | (missing) | (missing) | | (unavailable | 12:55 | [facility] | | | | + + + +-------+ + + + + | Result panel 178 | + + + + + + + + + | | 2021-11-13 | [facility] | NEGATIVE | (missing) | (missing) | | (unavailable | 12:55 | [facility] | | | | + + + + + + + + + | Result panel 179 | + + + + + + + + + | | 2021-11-13 | [facility] | NORMAL | (missing) | (missing) | | (unavailable | 12:55 | [facility] | | | | + + + + + + + + + | Result panel 180 | + + + + + + + + + | | 2021-11-13 | [facility] | NEGATIVE | (missing) | (missing) | | (unavailable | 12:55 | [facility] | | | | + + + + + + + + + | Result panel 181 | + + + + + + + + + | | 2021-11-13 | [facility] | MODERATE | (missing) | (missing) | | (unavailable | 12:55 | [facility] | | | | + + + + + + + + + | Result panel 182 | + + + + + +-------+ + + | | 2021-11-13 | [facility] | 0-1 | (missing) | (missing) | | (unavailable | 12:55 | [facility] | | | | + + + +-------+ + + + + | Result panel 183 | + + + + + +---------+ + + | | 2021-11-13 | [facility] | 21-40 | (missing) | (missing) | | (unavailable | 12:55 | [facility] | | | | + + + +---------+ + + + + | Result panel 184 | + + + + + +-----+ + + | | 2021-11-13 | [facility] | 0 | (missing) | (missing) | | (unavailable | 12:55 | [facility] | | | | + + + +-----+ + + + + | Result panel 185 | + + + + + + + + + | | 2021-11-13 | [facility] | NONE SEEN | (missing) | (missing) | | (unavailable | 12:55 | [facility] | | | | + + + + + + + + + | Result panel 186 | + + + + + +--------+ + + | | 2021-11-13 | [facility] | RARE | (missing) | (missing) | | (unavailable | 12:55 | [facility] | | | | + + + +--------+ + + + + | Result panel 187 | + + + + + + + + + | | 2021-11-13 | [facility] | NONE SEEN | (missing) | (missing) | | (unavailable | 12:55 | [facility] | | | | + + + + + + + + + | Result panel 188 | + + + + + +-------+ + + | | 2021-11-13 | [facility] | Yes | (missing) | (missing) | | (unavailable | 12:55 | [facility] | | | | + + + +-------+ + + + + | Result panel 189 | + + + + + + + + + | | 2021-11-13 | [facility] | CLEAN CATCH | (missing) | (missing) | | (unavailable | 12:55 | [facility] | | | | + + + + + + + + + | Result panel 190 | + + + + + +------+ + + | | 2021-12-03 | [facility] | 75 | (missing) | (missing) | | (unavailable | 07:27 | [facility] | | | | + + + +------+ + + + + | Result panel 191 | + + + + + +-------+ + + | | 2021-12-03 | [facility] | 9.6 | (missing) | (missing) | | (unavailable | 07:30 | [facility] | | | | + + + +-------+ + + + + | Result panel 192 | + + + + + +--------+ + + | | 2021-12-03 | [facility] | 4.51 | (missing) | (missing) | | (unavailable | 07:30 | [facility] | | | | + + + +--------+ + + + + | Result panel 193 | + + + + + +--------+ + + | | 2021-12-03 | [facility] | 14.2 | (missing) | (missing) | | (unavailable | 07:30 | [facility] | | | | + + + +--------+ + + + + | Result panel 194 | + + + + + +--------+ + + | | 2021-12-03 | [facility] | 43.5 | (missing) | (missing) | | (unavailable | 07:30 | [facility] | | | | + + + +--------+ + + + + | Result panel 195 | + + + + + +--------+ + + | | 2021-12-03 | [facility] | 96.6 | (missing) | (missing) | | (unavailable | 07:30 | [facility] | | | | + + + +--------+ + + + + | Result panel 196 | + + + + + +--------+ + + | | 2021-12-03 | [facility] | 31.4 | (missing) | (missing) | | (unavailable | 07:30 | [facility] | | | | + + + +--------+ + + + + | Result panel 197 | + + + + + +--------+ + + | | 2021-12-03 | [facility] | 32.6 | (missing) | (missing) | | (unavailable | 07:30 | [facility] | | | | + + + +--------+ + + + + | Result panel 198 | + + + + + +--------+ + + | | 2021-12-03 | [facility] | 16.3 | (missing) | (missing) | | (unavailable | 07:30 | [facility] | | | | + + + +--------+ + + + + | Result panel 199 | + + + + + +-------+ + + | | 2021-12-03 | [facility] | 162 | (missing) | (missing) | | (unavailable | 07:30 | [facility] | | | | + + + +-------+ + + + + | Result panel 200 | + + + + + +--------+ + + | | 2021-12-03 | [facility] | 81.9 | (missing) | (missing) | | (unavailable | 07:30 | [facility] | | | | + + + +--------+ + + + + | Result panel 201 | + + + + + +-------+ + + | | 2021-12-03 | [facility] | 9.5 | (missing) | (missing) | | (unavailable | 07:30 | [facility] | | | | + + + +-------+ + + + + | Result panel 202 | + + + + + +-------+ + + | | 2021-12-03 | [facility] | 6.4 | (missing) | (missing) | | (unavailable | 07:30 | [facility] | | | | + + + +-------+ + + + + | Result panel 203 | + + + + + +-------+ + + | | 2021-12-03 | [facility] | 1.5 | (missing) | (missing) | | (unavailable | 07:30 | [facility] | | | | + + + +-------+ + + + + | Result panel 204 | + + + + + +-------+ + + | | 2021-12-03 | [facility] | 0.7 | (missing) | (missing) | | (unavailable | 07:30 | [facility] | | | | + + + +-------+ + + + + | Result panel 205 | + + + + + +-------+---------+ + | | 2021-12-03 | [facility] | 114 | mg/dL | (missing) | | (unavailable | 07:30 | [facility] | | | | + + + +-------+---------+ + + + | Result panel 206 | + + + + + +------+---------+ + | | 2021-12-03 | [facility] | 36 | mg/dL | (missing) | | (unavailable | 07:30 | [facility] | | | + + + +------+---------+ + + + | Result panel 207 | + + + + + +--------+---------+ + | | 2021-12-03 | [facility] | 1.71 | mg/dL | (missing) | | (unavailable | 07:30 | [facility] | | | | + + + +--------+---------+ + + + | Result panel 208 | + + + + + +------+ + + | | 2021-12-03 | [facility] | 43 | (missing) | (missing) | | (unavailable | 07:30 | [facility] | | | + + + +------+ + + + + | Result panel 209 | + + + + + +---------+ + + | | 2021-12-03 | [facility] | 21.05 | (missing) | (missing) | | (unavailable | 07:30 | [facility] | | | | + + + +---------+ + + + + | Result panel 210 | + + + + + +-------+ + + | | 2021-12-03 | [facility] | 143 | (missing) | (missing) | | (unavailable | 07:30 | [facility] | | | | + + + +-------+ + + + + | Result panel 211 | + + + + + +-------+ + + | | 2021-12-03 | [facility] | 4.8 | (missing) | (missing) | | (unavailable | 07:30 | [facility] | | | | + + + +-------+ + + + + | Result panel 212 | + + + + + +-------+ + + | | 2021-12-03 | [facility] | 105 | (missing) | (missing) | | (unavailable | 07:30 | [facility] | | | | + + + +-------+ + + + + | Result panel 213 | + + + + + +------+ + + | | 2021-12-03 | [facility] | 30 | (missing) | (missing) | | (unavailable | 07:30 | [facility] | | | | + + + +------+ + + + + | Result panel 214 | + + + + + +--------+ + + | | 2021-12-03 | [facility] | 12.8 | (missing) | (missing) | | (unavailable | 07:30 | [facility] | | | | + + + +--------+ + + + + | Result panel 215 | + + + + + +-------+---------+ + | | 2021-12-03 | [facility] | 8.9 | mg/dL | (missing) | | (unavailable | 07:30 | [facility] | | | | + + + +-------+---------+ + + + | Result panel 216 | + + + + + +-------+ + + | | 2021-12-03 | [facility] | 7.0 | (missing) | (missing) | | (unavailable | 07:30 | [facility] | | | | + + + +-------+ + + + + | Result panel 217 | + + + + + +-------+ + + | | 2021-12-03 | [facility] | 3.7 | (missing) | (missing) | | (unavailable | 07:30 | [facility] | | | | + + + +-------+ + + + + | Result panel 218 | + + + + + +-------+ + + | | 2021-12-03 | [facility] | 3.3 | (missing) | (missing) | | (unavailable | 07:30 | [facility] | | | | + + + +-------+ + + + + | Result panel 219 | + + + + + +--------+ + + | | 2021-12-03 | [facility] | 1.12 | (missing) | (missing) | | (unavailable | 07:30 | [facility] | | | | + + + +--------+ + + + + | Result panel 220 | + + + + + +------+ + + | | 2021-12-03 | [facility] | 27 | (missing) | (missing) | | (unavailable | 07:30 | [facility] | | | | + + + +------+ + + + + | Result panel 221 | + + + + + +------+ + + | | 2021-12-03 | [facility] | 42 | (missing) | (missing) | | (unavailable | 07:30 | [facility] | | | | + + + +------+ + + + + | Result panel 222 | + + + + + +------+ + + | | 2021-12-03 | [facility] | 71 | (missing) | (missing) | | (unavailable | 07:30 | [facility] | | | | + + + +------+ + + + + | Result panel 223 | + + + + + +------+ + + | | 2021-12-03 | [facility] | 62 | (missing) | (missing) | | (unavailable | 07:30 | [facility] | | | | + + + +------+ + + + + | Result panel 224 | + + + + + +-------+ + + | | 2021-12-03 | [facility] | 154 | (missing) | (missing) | | (unavailable | 07:30 | [facility] | | | | + + + +-------+ + + + + | Result panel 225 | + + + + + +------+ + + | | 2021-12-03 | [facility] | 80 | (missing) | (missing) | | (unavailable | 07:30 | [facility] | | | | + + + +------+ + + + + | Result panel 226 | + + + + + +-------+ + + | | 2021-12-03 | [facility] | 6.6 | (missing) | (missing) | | (unavailable | 07:30 | [facility] | | | | + + + +-------+ + + + + | Result panel 227 | + + + + + +-------+ + + | | 2021-12-03 | [facility] | 1.1 | (missing) | (missing) | | (unavailable | 07:30 | [facility] | | | | + + + +-------+ + + + + | Result panel 228 | + + + + + +------+ + + | | 2021-12-03 | [facility] | <3 | (missing) | (missing) | | (unavailable | 07:30 | [facility] | | | | + + + +------+ + + + + | Result panel 229 | + + + + + +-----+ + + | | 2021-12-03 | [facility] | A | (missing) | (missing) | | (unavailable | 07:30 | [facility] | | | | + + + +-----+ + + + + | Result panel 230 | + + + + + + + + + | | 2021-12-03 | [facility] | POSITIVE | (missing) | (missing) | | (unavailable | 07:30 | [facility] | | | | + + + + + + + + + | Result panel 231 | + + + + + + + + + | | 2021-12-03 | [facility] | NEGATIVE | (missing) | (missing) | | (unavailable | 07:30 | [facility] | | | | + + + + + + + + + | Result panel 232 | + + + + + + + + + | | 2021-12-03 | [facility] | BLOOD IN | (missing) | (missing) | | (unavailable | 07:30 | [facility] | | | | + + + + + + + + + | Result panel 233 | + + + + + + + + + | | 2021-12-03 | [facility] | NEGATIVE | (missing) | (missing) | | (unavailable | 08:50 | [facility] | | | | + + + + + + + + + | Result panel 234 | + + + + + + + + + | | 2021-12-03 | [facility] | NEGATIVE | (missing) | (missing) | | (unavailable | 08:50 | [facility] | | | | + + + + + + + + + | Result panel 235 | + + + + + + + + + | | 2021-12-03 | [facility] | NEGATIVE | (missing) | (missing) | | (unavailable | 08:50 | [facility] | | | | + + + + + + + + + | Result panel 236 | + + + + + + + + + | | 2021-12-03 | [facility] | NEGATIVE | (missing) | (missing) | | (unavailable | 08:50 | [facility] | | | | + + + + + + + + + | Result panel 237 | + + + + + + + + + | | 2021-12-03 | [facility] | YELLOW | (missing) | (missing) | | (unavailable | 09:21 | [facility] | | | | + + + + + + + + + | Result panel 238 | + + + + + + + + + | | 2021-12-03 | [facility] | SL CLOUDY | (missing) | (missing) | | (unavailable | 09:21 | [facility] | | | | + + + + + + + + + | Result panel 239 | + + + + + + + + + | | 2021-12-03 | [facility] | NEGATIVE | (missing) | (missing) | | (unavailable | 09:21 | [facility] | | | | + + + + + + + + + | Result panel 240 | + + + + + + + + + | | 2021-12-03 | [facility] | NEGATIVE | (missing) | (missing) | | (unavailable | 09:21 | [facility] | | | | + + + + + + + + + | Result panel 241 | + + + + + + + + + | | 2021-12-03 | [facility] | NEGATIVE | (missing) | (missing) | | (unavailable | 09:21 | [facility] | | | | + + + + + + + + + | Result panel 242 | + + + + + +---------+ + + | | 2021-12-03 | [facility] | 1.015 | (missing) | (missing) | | (unavailable | 09:21 | [facility] | | | | + + + +---------+ + + + + | Result panel 243 | + + + + + + + + + | | 2021-12-03 | [facility] | NEGATIVE | (missing) | (missing) | | (unavailable | 09:21 | [facility] | | | | + + + + + + + + + | Result panel 244 | + + + + + +-------+ + + | | 2021-12-03 | [facility] | 6.0 | (missing) | (missing) | | (unavailable | 09:21 | [facility] | | | | + + + +-------+ + + + + | Result panel 245 | + + + + + + + + + | | 2021-12-03 | [facility] | NEGATIVE | (missing) | (missing) | | (unavailable | 09:21 | [facility] | | | | + + + + + + + + + | Result panel 246 | + + + + + + + + + | | 2021-12-03 | [facility] | NORMAL | (missing) | (missing) | | (unavailable | 09:21 | [facility] | | | | + + + + + + + + + | Result panel 247 | + + + + + + + + + | | 2021-12-03 | [facility] | POSITIVE | (missing) | (missing) | | (unavailable | 09:21 | [facility] | | | | + + + + + + + + + | Result panel 248 | + + + + + +---------+ + + | | 2021-12-03 | [facility] | SMALL | (missing) | (missing) | | (unavailable | 09:21 | [facility] | | | | + + + +---------+ + + + + | Result panel 249 | + + + + + +-------+ + + | | 2021-12-03 | [facility] | 0-1 | (missing) | (missing) | | (unavailable | 09:21 | [facility] | | | | + + + +-------+ + + + + | Result panel 250 | + + + + + +--------+ + + | | 2021-12-03 | [facility] | 7-11 | (missing) | (missing) | | (unavailable | 09:21 | [facility] | | | | + + + +--------+ + + + + | Result panel 251 | + + + + + + + + + | | 2021-12-03 | [facility] | SQUAMOUS 1+ | (missing) | (missing) | | (unavailable | 09:21 | [facility] | | | | + + + + + + + + + | Result panel 252 | + + + + + + + + + | | 2021-12-03 | [facility] | NONE SEEN | (missing) | (missing) | | (unavailable | 09:21 | [facility] | | | | + + + + + + + + + | Result panel 253 | + + + + + +--------+ + + | | 2021-12-03 | [facility] | RARE | (missing) | (missing) | | (unavailable | 09:21 | [facility] | | | | + + + +--------+ + + + + | Result panel 254 | + + + + + + + + + | | 2021-12-03 | [facility] | NONE SEEN | (missing) | (missing) | | (unavailable | 09:21 | [facility] | | | | + + + + + + + + + | Result panel 255 | + + + + + +-------+ + + | | 2021-12-03 | [facility] | Yes | (missing) | (missing) | | (unavailable | 09:21 | [facility] | | | | + + + +-------+ + + + + | Result panel 256 | + + + + + + + + + | | 2021-12-03 | [facility] | CLEAN CATCH | (missing) | (missing) | | (unavailable | 09:21 | [facility] | | | | + + + + + + + + + | Result panel 257 | + + + + + + + + + | | 2021-12-03 | [facility] | NEGATIVE | (missing) | (missing) | | (unavailable | 09:21 | [facility] | | | | + + + + + + + + + | Result panel 258 | + + + + + + + + + | | 2021-12-03 | [facility] | NEGATIVE | (missing) | (missing) | | (unavailable | 09:21 | [facility] | | | | + + + + + + + + + | Result panel 259 | + + + + + + + + + | | 2021-12-03 | [facility] | NEGATIVE | (missing) | (missing) | | (unavailable | 09:21 | [facility] | | | | + + + + + + + + + | Result panel 260 | + + + + + + + + + | | 2021-12-03 | [facility] | NEGATIVE | (missing) | (missing) | | (unavailable | 09:21 | [facility] | | | | + + + + + + + + + | Result panel 261 | + + + + + + + + + | | 2021-12-03 | [facility] | NEGATIVE | (missing) | (missing) | | (unavailable | 09:21 | [facility] | | | | + + + + + + + + + | Result panel 262 | + + + + + + + + + | | 2021-12-03 | [facility] | NEGATIVE | (missing) | (missing) | | (unavailable | 09:21 | [facility] | | | | + + + + + + + + + | Result panel 263 | + + + + + + + + + | | 2021-12-03 | [facility] | NEGATIVE | (missing) | (missing) | | (unavailable | 09:21 | [facility] | | | | + + + + + + + + + | Result panel 264 | + + + + + + + + + | | 2021-12-03 | [facility] | NEGATIVE | (missing) | (missing) | | (unavailable | 09:21 | [facility] | | | | + + + + + + + + + | Result panel 265 | + + + + + + + + + | | 2021-12-03 | [facility] | NEGATIVE | (missing) | (missing) | | (unavailable | 09:21 | [facility] | | | | + + + + + + + + + | Result panel 266 | + + + + + + + + + | | 2021-12-03 | [facility] | NEGATIVE | (missing) | (missing) | | (unavailable | 09:21 | [facility] | | | | + + + + + + + + + | Result panel 267 | + + + + + + + + + | | 2021-12-03 | [facility] | NEGATIVE | (missing) | (missing) | | (unavailable | 09:21 | [facility] | | | | + + + + + + + + + | Result panel 268 | + + + + + + + + + | | 2021-12-03 | [facility] | NEGATIVE | (missing) | (missing) | | (unavailable | 09:21 | [facility] | | | | + + + + + + + + + | Result panel 269 | + + + + + + + + + | | 2021-12-03 | [facility] | NEGATIVE | (missing) | (missing) | | (unavailable | 09:21 | [facility] | | | | + + + + + + + + + | Result panel 270 | + + + + + +--------+ + + | | 2022-05-31 | [facility] | 3.87 | (missing) | (missing) | | (unavailable | 20:20:08 | [facility] | | | | + + + +--------+ + + + + | Result panel 271 | + + + + + +--------+ + + | | 2022-05-31 | [facility] | 11.8 | (missing) | (missing) | | (unavailable | 20:20:08 | [facility] | | | | + + + +--------+ + + + + | Result panel 272 | + + + + + +--------+ + + | | 2022-05-31 | [facility] | 36.5 | (missing) | (missing) | | (unavailable | 20:20:08 | [facility] | | | | + + + +--------+ + + + + | Result panel 273 | + + + + + +--------+ + + | | 2022-05-31 | [facility] | 94.5 | (missing) | (missing) | | (unavailable | 20:20:08 | [facility] | | | | + + + +--------+ + + + + | Result panel 274 | + + + + + +--------+ + + | | 2022-05-31 | [facility] | 30.5 | (missing) | (missing) | | (unavailable | 20:20:08 | [facility] | | | | + + + +--------+ + + + + | Result panel 275 | + + + + + +--------+ + + | | 2022-05-31 | [facility] | 32.3 | (missing) | (missing) | | (unavailable | 20:20:08 | [facility] | | | | + + + +--------+ + + + + | Result panel 276 | + + + + + +--------+ + + | | 2022-05-31 | [facility] | 15.3 | (missing) | (missing) | | (unavailable | 20:20:08 | [facility] | | | | + + + +--------+ + + + + | Result panel 277 | + + + + + +-------+ + + | | 2022-05-31 | [facility] | 173 | (missing) | (missing) | | (unavailable | 20:20:08 | [facility] | | | | + + + +-------+ + + + + | Result panel 278 | + + + + + +--------+ + + | | 2022-05-31 | [facility] | 65.9 | (missing) | (missing) | | (unavailable | 20:20:08 | [facility] | | | | + + + +--------+ + + + + | Result panel 279 | + + + + + +--------+ + + | | 2022-05-31 | [facility] | 18.8 | (missing) | (missing) | | (unavailable | 20:20:08 | [facility] | | | | + + + +--------+ + + + + | Result panel 280 | + + + + + +--------+ + + | | 2022-05-31 | [facility] | 10.5 | (missing) | (missing) | | (unavailable | 20:20:08 | [facility] | | | | + + + +--------+ + + + + | Result panel 281 | + + + + + +-------+ + + | | 2022-05-31 | [facility] | 3.3 | (missing) | (missing) | | (unavailable | 20:20:08 | [facility] | | | | + + + +-------+ + + + + | Result panel 282 | + + + + + +-------+ + + | | 2022-05-31 | [facility] | 1.5 | (missing) | (missing) | | (unavailable | 20:20:08 | [facility] | | | | + + + +-------+ + + + + | Result panel 283 | + + + + + +--------+ + + | | 2022-05-31 | [facility] | 21.7 | (missing) | (missing) | | (unavailable | 20:20:08 | [facility] | | | | + + + +--------+ + + + + | Result panel 284 | + + + + + +--------+ + + | | 2022-05-31 | [facility] | 1.98 | (missing) | (missing) | | (unavailable | 20:20:08 | [facility] | | | | + + + +--------+ + + + + | Result panel 285 | + + + + + +-------+---------+ + | | 2022-05-31 | [facility] | 114 | mg/dL | (missing) | | (unavailable | 20:20:08 | [facility] | | | | + + + +-------+---------+ + + + | Result panel 286 | + + + + + +------+---------+ + | | 2022-05-31 | [facility] | 25 | mg/dL | (missing) | | (unavailable | 20:20:08 | [facility] | | | | + + + +------+---------+ + + + | Result panel 287 | + + + + + +--------+---------+ + | | 2022-05-31 | [facility] | 1.19 | mg/dL | (missing) | | (unavailable | 20:20:08 | [facility] | | | | + + + +--------+---------+ + + + | Result panel 288 | + + + + + +------+ + + | | 2022-05-31 | [facility] | 66 | (missing) | (missing) | | (unavailable | 20:20:08 | [facility] | | | | + + + +------+ + + + + | Result panel 289 | + + + + + +---------+ + + | | 2022-05-31 | [facility] | 21.00 | (missing) | (missing) | | (unavailable | 20:20:08 | [facility] | | | | + + + +---------+ + + + + | Result panel 290 | + + + + + +-------+ + + | | 2022-05-31 | [facility] | 142 | (missing) | (missing) | | (unavailable | 20:20:08 | [facility] | | | | + + + +-------+ + + + + | Result panel 291 | + + + + + +-------+ + + | | 2022-05-31 | [facility] | 4.9 | (missing) | (missing) | | (unavailable | 20:20:08 | [facility] | | | | + + + +-------+ + + + + | Result panel 292 | + + + + + +-------+ + + | | 2022-05-31 | [facility] | 108 | (missing) | (missing) | | (unavailable | 20:20:08 | [facility] | | | | + + + +-------+ + + + + | Result panel 293 | + + + + + +------+ + + | | 2022-05-31 | [facility] | 28 | (missing) | (missing) | | (unavailable | 20:20:08 | [facility] | | | | + + + +------+ + + + + | Result panel 294 | + + + + + +--------+ + + | | 2022-05-31 | [facility] | 10.9 | (missing) | (missing) | | (unavailable | 20:20:08 | [facility] | | | | + + + +--------+ + + + + | Result panel 295 | + + + + + +-------+---------+ + | | 2022-05-31 | [facility] | 8.5 | mg/dL | (missing) | | (unavailable | 20:20:08 | [facility] | | | | + + + +-------+---------+ + + + | Result panel 296 | + + + + + +-------+---------+ + | | 2022-05-31 | [facility] | 2.2 | mg/dL | (missing) | | (unavailable | 20:20:08 | [facility] | | | | + + + +-------+---------+ + + + | Result panel 297 | + + + + + +-------+ + + | | 2022-05-31 | [facility] | 6.0 | (missing) | (missing) | | (unavailable | 20:20:08 | [facility] | | | | + + + +-------+ + + + + | Result panel 298 | + + + + + +-------+ + + | | 2022-05-31 | [facility] | 3.1 | (missing) | (missing) | | (unavailable | 20:20:08 | [facility] | | | | + + + +-------+ + + + + | Result panel 299 | + + + + + +-------+ + + | | 2022-05-31 | [facility] | 2.9 | (missing) | (missing) | | (unavailable | 20:20:08 | [facility] | | | | + + + +-------+ + + + + | Result panel 300 | + + + + + +--------+ + + | | 2022-05-31 | [facility] | 1.07 | (missing) | (missing) | | (unavailable | 20:20:08 | [facility] | | | | + + + +--------+ + + + + | Result panel 301 | + + + + + +-------+ + + | | 2022-05-31 | [facility] | 0.6 | (missing) | (missing) | | (unavailable | 20:20:08 | [facility] | | | | + + + +-------+ + + + + | Result panel 302 | + + + + + +------+ + + | | 2022-05-31 | [facility] | 22 | (missing) | (missing) | | (unavailable | 20:20:08 | [facility] | | | | + + + +------+ + + + + | Result panel 303 | + + + + + +------+ + + | | 2022-05-31 | [facility] | 23 | (missing) | (missing) | | (unavailable | 20:20:08 | [facility] | | | | + + + +------+ + + + + | Result panel 304 | + + + + + +------+ + + | | 2022-05-31 | [facility] | 95 | (missing) | (missing) | | (unavailable | 20:20:08 | [facility] | | | | + + + +------+ + + + + | Result panel 305 | + + + + + +-------+ + + | | 2022-05-31 | [facility] | 5.1 | (missing) | (missing) | | (unavailable | 20:20:08 | [facility] | | | | + + + +-------+ + + + + | Result panel 306 | + + + + + + + + + | | 2022-05-31 | [facility] | YELLOW | (missing) | (missing) | | (unavailable | 23:00:08 | [facility] | | | | + + + + + + + + + | Result panel 307 | + + + + + +---------+ + + | | 2022-05-31 | [facility] | CLEAR | (missing) | (missing) | | (unavailable | 23:00:08 | [facility] | | | | + + + +---------+ + + + + | Result panel 308 | + + + + + + + + + | | 2022-05-31 | [facility] | NEGATIVE | (missing) | (missing) | | (unavailable | 23:00:08 | [facility] | | | | + + + + + + + + + | Result panel 309 | + + + + + + + + + | | 2022-05-31 | [facility] | NEGATIVE | (missing) | (missing) | | (unavailable | 23:00:08 | [facility] | | | | + + + + + + + + + | Result panel 310 | + + + + + + + + + | | 2022-05-31 | [facility] | NEGATIVE | (missing) | (missing) | | (unavailable | 23:00:08 | [facility] | | | | + + + + + + + + + | Result panel 311 | + + + + + +---------+ + + | | 2022-05-31 | [facility] | 1.015 | (missing) | (missing) | | (unavailable | 23:00:08 | [facility] | | | | + + + +---------+ + + + + | Result panel 312 | + + + + + + + + + | | 2022-05-31 | [facility] | TRACE-I | (missing) | (missing) | | (unavailable | 23:00:08 | [facility] | | | | + + + + + + + + + | Result panel 313 | + + + + + +-------+ + + | | 2022-05-31 | [facility] | 6.0 | (missing) | (missing) | | (unavailable | 23:00:08 | [facility] | | | | + + + +-------+ + + + + | Result panel 314 | + + + + + + + + + | | 2022-05-31 | [facility] | NEGATIVE | (missing) | (missing) | | (unavailable | 23:00:08 | [facility] | | | | + + + + + + + + + | Result panel 315 | + + + + + + + + + | | 2022-05-31 | [facility] | NORMAL | (missing) | (missing) | | (unavailable | 23:00:08 | [facility] | | | | + + + + + + + + + | Result panel 316 | + + + + + + + + + | | 2022-05-31 | [facility] | POSITIVE | (missing) | (missing) | | (unavailable | 23:00:08 | [facility] | | | | + + + + + + + + + | Result panel 317 | + + + + + +---------+ + + | | 2022-05-31 | [facility] | TRACE | (missing) | (missing) | | (unavailable | 23:00:08 | [facility] | | | | + + + +---------+ + + + + | Result panel 318 | + + + + + +-------+ + + | | 2022-05-31 | [facility] | 4-6 | (missing) | (missing) | | (unavailable | 23:00:08 | [facility] | | | | + + + +-------+ + + + + | Result panel 319 | + + + + + +---------+ + + | | 2022-05-31 | [facility] | 21-40 | (missing) | (missing) | | (unavailable | 23:00:08 | [facility] | | | | + + + +---------+ + + + + | Result panel 320 | + + + + + + + + + | | 2022-05-31 | [facility] | SQUAMOUS 1+ | (missing) | (missing) | | (unavailable | 23:00:08 | [facility] | | | | + + + + + + + + + | Result panel 321 | + + + + + + + + + | | 2022-05-31 | [facility] | NONE SEEN | (missing) | (missing) | | (unavailable | 23:00:08 | [facility] | | | | + + + + + + + + + | Result panel 322 | + + + + + +------+ + + | | 2022-05-31 | [facility] | 4+ | (missing) | (missing) | | (unavailable | 23:00:08 | [facility] | | | | + + + +------+ + + + + | Result panel 323 | + + + + + + + + + | | 2022-05-31 | [facility] | NONE SEEN | (missing) | (missing) | | (unavailable | ::08 | [facility] | | | | + + + + + + + + + | Result panel 324 | + + + + + +-------+ + + | | 2022-05-31 | [facility] | Yes | (missing) | (missing) | | (unavailable | :00:08 | [facility] | | | | + + + +-------+ + + + + | Result panel 325 | + + + + + +-------+ + + | | 2022-06-10 | [facility] | 7.3 | (missing) | (missing) | | (unavailable | 18:50:07 | [facility] | | | | + + + +-------+ + + + + | Result panel 326 | + + + + + +--------+ + + | | 2022-06-10 | [facility] | 4.62 | (missing) | (missing) | | (unavailable | 18:50:07 | [facility] | | | | + + + +--------+ + + + + | Result panel 327 | + + + + + +--------+ + + | | 2022-06-10 | [facility] [facility] | 14.4 | (missing) | (missing) | | (unavailable | 18:50:07 | [facility] | | | | + + + +--------+ + + + + | Result panel 328 | + + + + + +--------+ + + | | 2022-06-10 | [facility] | 43.7 | (missing) | (missing) | | (unavailable | 18:50:07 | [facility] | | | | + + + +--------+ + + + + | Result panel 329 | + + + + + +--------+ + + | | 2022-06-10 | [facility] | 94.5 | (missing) | (missing) | | (unavailable | 18:50:07 | [facility] | | | + + + +--------+ + + + + | Result panel 330 | + + + + + +--------+ + + | | 2022-06-10 | [facility] | 31.2 | (missing) | (missing) | | (unavailable | 18:50:07 | [facility] | | | + + + +--------+ + + + + | Result panel 331 | + + + + + +--------+ + + | | 2022-06-10 | [facility] | 33.0 | (missing) | (missing) | | (unavailable | 18:50:07 | [facility] | | | + + + +--------+ + + + + | Result panel 332 | + + + + + +--------+ + + | | 2022-06-10 | [facility] | 16.4 | (missing) | (missing) | | (unavailable | 18:50:07 | [facility] | | | + + + +--------+ + + + + | Result panel 333 | + + + + + +-------+ + + | | 2022-06-10 | [facility] | 161 | (missing) | (missing) | | (unavailable | 18:50:07 | [facility] | | | + + + +-------+ + + + + | Result panel 334 | + + + + + +--------+ + + | | 2022-06-10 | [facility] | 83.0 | (missing) | (missing) | | (unavailable | 18:50:07 | [facility] | | | + + + +--------+ + + + + | Result panel 335 | + + + + + +--------+ + + | | 2022-06-10 | [facility] | 10.5 | (missing) | (missing) | | (unavailable | 18:50:07 | [facility] | | | + + + +--------+ + + + + | Result panel 336 | + + + + + +-------+ + + | | 2022-06-10 | [facility] | 4.7 | (missing) | (missing) | | (unavailable | 18:50:07 | [facility] | | | + + + +-------+ + + + + | Result panel 337 | + + + + + +-------+ + + | | 2022-06-10 | [facility] | 1.2 | (missing) | (missing) | | (unavailable | 18:50:07 | [facility] | | | + + + +-------+ + + + + | Result panel 338 | + + + + + +-------+ + + | | 2022-06-10 | [facility] | 0.6 | (missing) | (missing) | | (unavailable | 18:50:07 | [facility] | | | + + + +-------+ + + + + | Result panel 339 | + + + + + +--------+ + + | | 2022-06-10 | [facility] | 14.7 | (missing) | (missing) | | (unavailable | 18:50:07 | [facility] | | | + + + +--------+ + + + + | Result panel 340 | + + + + + +--------+ + + | | 2022-06-10 | [facility] | 1.20 | (missing) | (missing) | | (unavailable | 18:50:07 | [facility] | | | + + + +--------+ + + + + | Result panel 341 | + + + + + +-------+---------+ + | | 2022-06-10 | [facility] | 136 | mg/dL | (missing) | | (unavailable | 18:50:07 | [facility] | | | | + + + +-------+---------+ + + + | Result panel 342 | + + + + + +------+---------+ + | | 2022-06-10 | [facility] | 29 | mg/dL | (missing) | | (unavailable | 18:50:07 | [facility] | | | | + + + +------+---------+ + + + | Result panel 343 | + + + + + +--------+---------+ + | | 2022-06-10 | [facility] | 1.21 | mg/dL | (missing) | | (unavailable | 18:50:07 | [facility] | | | | + + + +--------+---------+ + + + | Result panel 344 | + + + + + +------+ + + | | 2022-06-10 | [facility] | 64 | (missing) | (missing) | | (unavailable | 18:50:07 | [facility] | | | | + + + +------+ + + + + | Result panel 345 | + + + + + +---------+ + + | | 2022-06-10 | [facility] | 23.96 | (missing) | (missing) | | (unavailable | 18:50:07 | [facility] | | | | + + + +---------+ + + + + | Result panel 346 | + + + + + +-------+ + + | | 2022-06-10 | [facility] | 143 | (missing) | (missing) | | (unavailable | 18:50:07 | [facility] | | | | + + + +-------+ + + + + | Result panel 347 | + + + + + +-------+ + + | | 2022-06-10 | [facility] | 4.7 | (missing) | (missing) | | (unavailable | 18:50:07 | [facility] | | | | + + + +-------+ + + + + | Result panel 348 | + + + + + +-------+ + + | | 2022-06-10 | [facility] | 108 | (missing) | (missing) | | (unavailable | 18:50:07 | [facility] | | | | + + + +-------+ + + + + | Result panel 349 | + + + + + +------+ + + | | 2022-06-10 | [facility] | 27 | (missing) | (missing) | | (unavailable | 18:50:07 | [facility] | | | | + + + +------+ + + + + | Result panel 350 | + + + + + +--------+ + + | | 2022-06-10 | [facility] | 12.7 | (missing) | (missing) | | (unavailable | 18:50:07 | [facility] | | | + + + +--------+ + + + + | Result panel 351 | + + + + + +-------+---------+ + | | 2022-06-10 | [facility] | 9.2 | mg/dL | (missing) | | (unavailable | 18:50:07 | [facility] | | | + + + +-------+---------+ + + + | Result panel 352 | + + + + + +-------+---------+ + | | 2022-06-10 | [facility] | 2.1 | mg/dL | (missing) | | (unavailable | 18:50:07 | [facility] | | | | + + + +-------+---------+ + + + | Result panel 353 | + + + + + +-------+ + + | | 2022-06-10 | [facility] | 7.6 | (missing) | (missing) | | (unavailable | 18:50:07 | [facility] | | | | + + + +-------+ + + + + | Result panel 354 | + + + + + +-------+ + + | | 2022-06-10 | [facility] | 4.0 | (missing) | (missing) | | (unavailable | 18:50:07 | [facility] | | | | + + + +-------+ + + + + | Result panel 355 | + + + + + +-------+ + + | | 2022-06-10 | [facility] | 3.6 | (missing) | (missing) | | (unavailable | 18:50:07 | [facility] | | | | + + + +-------+ + + + + | Result panel 356 | + + + + + +--------+ + + | | 2022-06-10 | [facility] | 1.11 | (missing) | (missing) | | (unavailable | 18:50:07 | [facility] | | | + + + +--------+ + + + + | Result panel 357 | + + + + + +-------+ + + | | 2022-06-10 | [facility] | 0.7 | (missing) | (missing) | | (unavailable | 18:50:07 | [facility] | | | + + + +-------+ + + + + | Result panel 358 | + + + + + +------+ + + | | 2022-06-10 | [facility] | 24 | (missing) | (missing) | | (unavailable | 18:50:07 | [facility] | | | | + + + +------+ + + + + | Result panel 359 | + + + + + +------+ + + | | 2022-06-10 | [facility] | 13 | (missing) | (missing) | | (unavailable | 18:50:07 | [facility] | | | | + + + +------+ + + + + | Result panel 360 | + + + + + +------+ + + | | 2022-06-10 | [facility] | 97 | (missing) | (missing) | | (unavailable | 18:50:07 | [facility] | | | | + + + +------+ + + + + | Result panel 361 | + + + + + + + + + | | 2022-06-10 | [facility] | YELLOW | (missing) | (missing) | | (unavailable | 19:55:07 | [facility] | | | | + + + + + + + + + | Result panel 362 | + + + + + +---------+ + + | | 2022-06-10 | [facility] | CLEAR | (missing) | (missing) | | (unavailable | 19:55:07 | [facility] | | | | + + + +---------+ + + + + | Result panel 363 | + + + + + + + + + | | 2022-06-10 | [facility] | NEGATIVE | (missing) | (missing) | | (unavailable | 19:55:07 | [facility] | | | | + + + + + + + + + | Result panel 364 | + + + + + + + + + | | 2022-06-10 | [facility] | NEGATIVE | (missing) | (missing) | | (unavailable | 19:55:07 | [facility] | | | | + + + + + + + + + | Result panel 365 | + + + + + + + + + | | 2022-06-10 | [facility] | NEGATIVE | (missing) | (missing) | | (unavailable | 19:55:07 | [facility] | | | | + + + + + + + + + | Result panel 366 | + + + + + +---------+ + + | | 2022-06-10 | [facility] | 1.025 | (missing) | (missing) | | (unavailable | 19:55:07 | [facility] | | | | + + + +---------+ + + + + | Result panel 367 | + + + + + + + + + | | 2022-06-10 | [facility] | NEGATIVE | (missing) | (missing) | | (unavailable | 19:55:07 | [facility] | | | | + + + + + + + + + | Result panel 368 | + + + + + +-------+ + + | | 2022-06-10 | [facility] | 5.5 | (missing) | (missing) | | (unavailable | 19:55:07 | [facility] | | | | + + + +-------+ + + + + | Result panel 369 | + + + + + + + + + | | 2022-06-10 | [facility] | NEGATIVE | (missing) | (missing) | | (unavailable | 19:55:07 | [facility] | | | | + + + + + + + + + | Result panel 370 | + + + + + + + + + | | 2022-06-10 | [facility] | NORMAL | (missing) | (missing) | | (unavailable | 19:55:07 | [facility] | | | | + + + + + + + + + | Result panel 371 | + + + + + + + + + | | 2022-06-10 | [facility] | NEGATIVE | (missing) | (missing) | | (unavailable | 19:55:07 | [facility] | | | | + + + + + + + + + | Result panel 372 | + + + + + +---------+ + + | | 2022-06-10 | [facility] | SMALL | (missing) | (missing) | | (unavailable | 19:55:07 | [facility] | | | | + + + +---------+ + + + + | Result panel 373 | + + + + + +-------+ + + | | 2022-06-10 | [facility] | 4-6 | (missing) | (missing) | | (unavailable | 19:55:07 | [facility] | | | | + + + +-------+ + + + + | Result panel 374 | + + + + + +--------+ + + | | 2022-06-10 | [facility] | 7-11 | (missing) | (missing) | | (unavailable | 19:55:07 | [facility] | | | + + + +--------+ + + + + | Result panel 375 | + + + + + + + + + | | 2022-06-10 | [facility] | SQUAMOUS 3+ | (missing) | (missing) | | (unavailable | 19:55:07 | [facility] | | | | + + + + + + + + + | Result panel 376 | + + + + + + + + + | | 2022-06-10 | [facility] | NONE SEEN | (missing) | (missing) | | (unavailable | 19:55:07 | [facility] | | | | + + + + + + + + + | Result panel 377 | + + + + + +--------+ + + | | 2022-06-10 | [facility] | RARE | (missing) | (missing) | | (unavailable | 19:55:07 | [facility] | | | | + + + +--------+ + + + + | Result panel 378 | + + + + + + + + + | | 2022-06-10 | [facility] | NONE SEEN | (missing) | (missing) | | (unavailable | 19:55:07 | [facility] | | | | + + + + + + + + + | Result panel 379 | + + + + + +------+ + + | | 2022-06-10 | [facility] | No | (missing) | (missing) | | (unavailable | 19:55:07 | [facility] | | | | + + + +------+ + + + + | Result panel 380 | + + + + + + + + + | | 2022-06-10 | [facility] | CLEAN CATCH | (missing) | (missing) | | (unavailable | 19:55:07 | [facility] | | | | + + + + + + + + + | Result panel 381 | + + + + + +-------+ + + | | 2022-06-10 | [facility] | 7.2 | (missing) | (missing) | | (unavailable | 21:15:07 | [facility] | | | | + + + +-------+ + + + + | Result panel 382 | + + + + + +-------+ + + | | 2022-08-12 | [facility] | 6.6 | (missing) | (missing) | | (unavailable | 01:00:07 | [facility] | | | | + + + +-------+ + + + + | Result panel 383 | + + + + + +--------+ + + | | 2022-08-12 | [facility] | 3.94 | (missing) | (missing) | | (unavailable | 01:00:07 | [facility] | | | | + + + +--------+ + + + + | Result panel 384 | + + + + + +--------+ + + | | 2022-08-12 | [facility] | 12.5 | (missing) | (missing) | | (unavailable | 01:00:07 | [facility] | | | | + + + +--------+ + + + + | Result panel 385 | + + + + + +--------+ + + | | 2022-08-12 | [facility] | 37.6 | (missing) | (missing) | | (unavailable | 01:00:07 | [facility] | | | | + + + +--------+ + + + + | Result panel 386 | + + + + + +--------+ + + | | 2022-08-12 | [facility] | 95.3 | (missing) | (missing) | | (unavailable | 01:00:07 | [facility] | | | | + + + +--------+ + + + + | Result panel 387 | + + + + + +--------+ + + | | 2022-08-12 | [facility] | 31.6 | (missing) | (missing) | | (unavailable | 01:00:07 | [facility] | | | | + + + +--------+ + + + + | Result panel 388 | + + + + + +--------+ + + | | 2022-08-12 | [facility] | 33.2 | (missing) | (missing) | | (unavailable | 01:00:07 | [facility] | | | | + + + +--------+ + + + + | Result panel 389 | + + + + + +--------+ + + | | 2022-08-12 | [facility] | 16.0 | (missing) | (missing) | | (unavailable | 01:00:07 | [facility] | | | | + + + +--------+ + + + + | Result panel 390 | + + + + + +-------+ + + | | 2022-08-12 | [facility] | 154 | (missing) | (missing) | | (unavailable | 01:00:07 | [facility] | | | | + + + +-------+ + + + + | Result panel 391 | + + + + + +--------+ + + | | 2022-08-12 | [facility] | 78.4 | (missing) | (missing) | | (unavailable | 01:00:07 | [facility] | | | | + + + +--------+ + + + + | Result panel 392 | + + + + + +--------+ + + | | 2022-08-12 | [facility] | 11.3 | (missing) | (missing) | | (unavailable | 01:00:07 | [facility] | | | | + + + +--------+ + + + + | Result panel 393 | + + + + + +-------+ + + | | 2022-08-12 | [facility] | 8.5 | (missing) | (missing) | | (unavailable | ::07 | [facility] | | | | + + + +-------+ + + + + | Result panel 394 | + + + + + +-------+ + + | | 2022-08-12 | [facility] | 1.4 | (missing) | (missing) | | (unavailable | :00:07 | [facility] | | | | + + + +-------+ + + + + | Result panel 395 | + + + + + +-------+ + + | | 2022-08-12 | [facility] | 0.4 | (missing) | (missing) | | (unavailable | 01:00:07 | [facility] | | | | + + + +-------+ + + + + | Result panel 396 | + + + + + +-------+---------+ + | | 2022-08-12 | [facility] | 140 | mg/dL | (missing) | | (unavailable | 01:00:07 | [facility] | | | | + + + +-------+---------+ + + + | Result panel 397 | + + + + + +------+---------+ + | | 2022-08-12 | [facility] | 67 | mg/dL | (missing) | | (unavailable | 01:00:07 | [facility] | | | | + + + +------+---------+ + + + | Result panel 398 | + + + + + +--------+---------+ + | | 2022-08-12 | [facility] | 1.76 | mg/dL | (missing) | | (unavailable | 01:00:07 | [facility] | | | | + + + +--------+---------+ + + + | Result panel 399 | + + + + + +------+ + + | | 2022-08-12 | [facility] | 41 | (missing) | (missing) | | (unavailable | 01:00:07 | [facility] | | | | + + + +------+ + + + + | Result panel 400 | + + + + + +---------+ + + | | 2022-08-12 | [facility] | 38.06 | (missing) | (missing) | | (unavailable | 01:00:07 | [facility] | | | | + + + +---------+ + + + + | Result panel 401 | + + + + + +-------+ + + | | 2022-08-12 | [facility] | 140 | (missing) | (missing) | | (unavailable | 01:00:07 | [facility] | | | | + + + +-------+ + + + + | Result panel 402 | + + + + + +-------+ + + | | 2022-08-12 | [facility] | 3.7 | (missing) | (missing) | | (unavailable | 01:00:07 | [facility] | | | | + + + +-------+ + + + + | Result panel 403 | + + + + + +-------+ + + | | 2022-08-12 | [facility] | 103 | (missing) | (missing) | | (unavailable | 01:00:07 | [facility] | | | | + + + +-------+ + + + + | Result panel 404 | + + + + + +------+ + + | | 2022-08-12 | [facility] | 27 | (missing) | (missing) | | (unavailable | 01:00:07 | [facility] | | | | + + + +------+ + + + + | Result panel 405 | + + + + + +--------+ + + | | 2022-08-12 | [facility] | 13.7 | (missing) | (missing) | | (unavailable | 01:00:07 | [facility] | | | | + + + +--------+ + + + + | Result panel 406 | + + + + + +-------+---------+ + | | 2022-08-12 | [facility] | 8.5 | mg/dL | (missing) | | (unavailable | 01:00:07 | [facility] | | | | + + + +-------+---------+ + + + | Result panel 407 | + + + + + +-------+ + + | | 2022-08-12 | [facility] | 6.7 | (missing) | (missing) | | (unavailable | 01:00:07 | [facility] | | | | + + + +-------+ + + + + | Result panel 408 | + + + + + +-------+ + + | | 2022-08-12 | [facility] | 3.5 | (missing) | (missing) | | (unavailable | 01:00:07 | [facility] | | | | + + + +-------+ + + + + | Result panel 409 | + + + + + +-------+ + + | | 2022-08-12 | [facility] | 3.2 | (missing) | (missing) | | (unavailable | 01:00:07 | [facility] | | | | + + + +-------+ + + + + | Result panel 410 | + + + + + +--------+ + + | | 2022-08-12 | [facility] | 1.09 | (missing) | (missing) | | (unavailable | 01:00:07 | [facility] | | | | + + + +--------+ + + + + | Result panel 411 | + + + + + +-------+ + + | | 2022-08-12 | [facility] | 0.8 | (missing) | (missing) | | (unavailable | 01:00:07 | [facility] | | | | + + + +-------+ + + + + | Result panel 412 | + + + + + +------+ + + | | 2022-08-12 | [facility] | 19 | (missing) | (missing) | | (unavailable | 01:00:07 | [facility] | | | | + + + +------+ + + + + | Result panel 413 | + + + + + +------+ + + | | 2022-08-12 | [facility] | 22 | (missing) | (missing) | | (unavailable | 01:00:07 | [facility] | | | | + + + +------+ + + + + | Result panel 414 | + + + + + +------+ + + | | 2022-08-12 | [facility] | 84 | (missing) | (missing) | | (unavailable | 01:00:07 | [facility] | | | | + + + +------+ + + + + | Result panel 415 | + + + + + + + + + | | 2022-08-12 | [facility] | YELLOW | (missing) | (missing) | | (unavailable | 01:40:07 | [facility] | | | | + + + + + + + + + | Result panel 416 | + + + + + + + + + | | 2022-08-12 | [facility] | SL CLOUDY | (missing) | (missing) | | (unavailable | 01:40:07 | [facility] | | | | + + + + + + + + + | Result panel 417 | + + + + + + + + + | | 2022-08-12 | [facility] | NEGATIVE | (missing) | (missing) | | (unavailable | 01:40:07 | [facility] | | | | + + + + + + + + + | Result panel 418 | + + + + + + + + + | | 2022-08-12 | [facility] | NEGATIVE | (missing) | (missing) | | (unavailable | 01:40:07 | [facility] | | | | + + + + + + + + + | Result panel 419 | + + + + + + + + + | | 2022-08-12 | [facility] | NEGATIVE | (missing) | (missing) | | (unavailable | 01:40:07 | [facility] | | | | + + + + + + + + + | Result panel 420 | + + + + + +---------+ + + | | 2022-08-12 | [facility] | 1.010 | (missing) | (missing) | | (unavailable | 01:40:07 | [facility] | | | | + + + +---------+ + + + + | Result panel 421 | + + + + + + + + + | | 2022-08-12 | [facility] | NEGATIVE | (missing) | (missing) | | (unavailable | 01:40:07 | [facility] | | | | + + + + + + + + + | Result panel 422 | + + + + + +-------+ + + | | 2022-08-12 | [facility] | 5.0 | (missing) | (missing) | | (unavailable | 01:40:07 | [facility] | | | | + + + +-------+ + + + + | Result panel 423 | + + + + + + + + + | | 2022-08-12 | [facility] | NEGATIVE | (missing) | (missing) | | (unavailable | 01:40:07 | [facility] | | | | + + + + + + + + + | Result panel 424 | + + + + + + + + + | | 2022-08-12 | [facility] | NORMAL | (missing) | (missing) | | (unavailable | 01:40:07 | [facility] | | | | + + + + + + + + + | Result panel 425 | + + + + + + + + + | | 2022-08-12 | [facility] | POSITIVE | (missing) | (missing) | | (unavailable | 01:40:07 | [facility] | | | | + + + + + + + + + | Result panel 426 | + + + + + + + + + | | 2022-08-12 | [facility] | MODERATE | (missing) | (missing) | | (unavailable | 01:40:07 | [facility] | | | | + + + + + + + + + | Result panel 427 | + + + + + +-------+ + + | | 2022-08-12 | [facility] | 0-1 | (missing) | (missing) | | (unavailable | 01:40:07 | [facility] | | | | + + + +-------+ + + + + | Result panel 428 | + + + + + +-------+ + + | | 2022-08-12 | [facility] | >50 | (missing) | (missing) | | (unavailable | 01:40:07 | [facility] | | | | + + + +-------+ + + + + | Result panel 429 | + + + + + + + + + | | 2022-08-12 | [facility] | SQUAMOUS 3+ | (missing) | (missing) | | (unavailable | 01:40:07 | [facility] | | | | + + + + + + + + + | Result panel 430 | + + + + + + + + + | | 2022-08-12 | [facility] | NONE SEEN | (missing) | (missing) | | (unavailable | 01:40:07 | [facility] | | | | + + + + + + + + + | Result panel 431 | + + + + + +------+ + + | | 2022-08-12 | [facility] | 4+ | (missing) | (missing) | | (unavailable | 01:40:07 | [facility] | | | | + + + +------+ + + + + | Result panel 432 | + + + + + + + + + | | 2022-08-12 | [facility] | NONE SEEN | (missing) | (missing) | | (unavailable | 01:40:07 | [facility] | | | | + + + + + + + + + | Result panel 433 | + + + + + +------+ + + | | 2022-08-12 | [facility] | No | (missing) | (missing) | | (unavailable | 01:40:07 | [facility] | | | | + + + +------+ + + + + | Result panel 434 | + + + + + +-------+ + + | | 2022-10-11 | [facility] | 4.1 | (missing) | (missing) | | (unavailable | 17:10:07 | [facility] | | | | + + + +-------+ + + + + | Result panel 435 | + + + + + +--------+ + + | | 2022-10-11 | [facility] | 61.1 | (missing) | (missing) | | (unavailable | 17:10:07 | [facility] | | | | + + + +--------+ + + + + | Result panel 436 | + + + + + +--------+ + + | | 2022-10-11 | [facility] | 22.0 | (missing) | (missing) | | (unavailable | 17:10:07 | [facility] | | | | + + + +--------+ + + + + | Result panel 437 | + + + + + +--------+ + + | | 2022-10-11 | [facility] | 11.9 | (missing) | (missing) | | (unavailable | 17:10:07 | [facility] | | | | + + + +--------+ + + + + | Result panel 438 | + + + + + +-------+ + + | | 2022-10-11 | [facility] | 4.1 | (missing) | (missing) | | (unavailable | 17:10:07 | [facility] | | | | + + + +-------+ + + + + | Result panel 439 | + + + + + +-------+ + + | | 2022-10-11 | [facility] | 0.9 | (missing) | (missing) | | (unavailable | 17:10:07 | [facility] | | | | + + + +-------+ + + + + | Result panel 440 | + + + + + +--------+ + + | | 2022-10-11 | [facility] | 3.80 | (missing) | (missing) | | (unavailable | 17:10:07 | [facility] | | | | + + + +--------+ + + + + | Result panel 441 | + + + + + +-------+---------+ + | | 2022-10-11 | [facility] | 105 | mg/dL | (missing) | | (unavailable | 17:10:07 | [facility] | | | | + + + +-------+---------+ + + + | Result panel 442 | + + + + + +------+---------+ + | | 2022-10-11 | [facility] | 29 | mg/dL | (missing) | | (unavailable | 17:10:07 | [facility] | | | | + + + +------+---------+ + + + | Result panel 443 | + + + + + +--------+ + + | | 2022-10-11 | [facility] | 12.2 | (missing) | (missing) | | (unavailable | 17:10:07 | [facility] | | | | + + + +--------+ + + + + | Result panel 444 | + + + + + +--------+---------+ + | | 2022-10-11 | [facility] | 1.15 | mg/dL | (missing) | | (unavailable | 17:10:07 | [facility] | | | | + + + +--------+---------+ + + + | Result panel 445 | + + + + + +------+ + + | | 2022-10-11 | [facility] | 68 | (missing) | (missing) | | (unavailable | 17:10:07 | [facility] | | | | + + + +------+ + + + + | Result panel 446 | + + + + + +---------+ + + | | 2022-10-11 | [facility] | 25.21 | (missing) | (missing) | | (unavailable | 17:10:07 | [facility] | | | | + + + +---------+ + + + + | Result panel 447 | + + + + + +-------+ + + | | 2022-10-11 | [facility] | 146 | (missing) | (missing) | | (unavailable | 17:10:07 | [facility] | | | | + + + +-------+ + + + + | Result panel 448 | + + + + + +-------+ + + | | 2022-10-11 | [facility] | 4.4 | (missing) | (missing) | | (unavailable | 17:10:07 | [facility] | | | | + + + +-------+ + + + + | Result panel 449 | + + + + + +-------+ + + | | 2022-10-11 | [facility] | 110 | (missing) | (missing) | | (unavailable | 17:10:07 | [facility] | | | | + + + +-------+ + + + + | Result panel 450 | + + + + + +------+ + + | | 2022-10-11 | [facility] | 29 | (missing) | (missing) | | (unavailable | 17:10:07 | [facility] | | | | + + + +------+ + + + + | Result panel 451 | + + + + + +--------+ + + | | 2022-10-11 | [facility] | 11.4 | (missing) | (missing) | | (unavailable | 17:10:07 | [facility] | | | | + + + +--------+ + + + + | Result panel 452 | + + + + + +-------+---------+ + | | 2022-10-11 | [facility] | 8.1 | mg/dL | (missing) | | (unavailable | 17:10:07 | [facility] | | | | + + + +-------+---------+ + + + | Result panel 453 | + + + + + +-------+ + + | | 2022-10-11 | [facility] | 5.9 | (missing) | (missing) | | (unavailable | 17:10:07 | [facility] | | | | + + + +-------+ + + + + | Result panel 454 | + + + + + +--------+ + + | | 2022-10-11 | [facility] | 36.7 | (missing) | (missing) | | (unavailable | 17:10:07 [facility] | | | | + + + +--------+ + + + + | Result panel 455 | + + + + + +-------+ + + | | 2022-10-11 | [facility] | 3.3 | (missing) | (missing) | | (unavailable | 17:10:07 [facility] | | | | + + + +-------+ + + + + | Result panel 456 | + + + + + +-------+ + + | | 2022-10-11 | [facility] | 2.6 | (missing) | (missing) | | (unavailable | 17:10:07 | [facility] | | | | + + + +-------+ + + + + | Result panel 457 | + + + + + +--------+ + + | | 2022-10-11 | [facility] | 1.27 | (missing) | (missing) | | (unavailable | [facility]:10:07 [facility] | | | | + + + +--------+ + + + + | Result panel 458 | + + + + + +-------+ + + | | 2022-10-11 | [facility] | 1.0 | (missing) | (missing) | | (unavailable | 17:10:07 [facility] | | | | + + + +-------+ + + + + | Result panel 459 | + + + + + +------+ + + | | 2022-10-11 | [facility] | 41 | (missing) | (missing) | | (unavailable | 17::07 | [facility] | | | | + + + +------+ + + + + | Result panel 460 | + + + + + +------+ + + | | 2022-10-11 | [facility] | 53 | (missing) | (missing) | | (unavailable | 17:10:07 [facility] | | | | + + + +------+ + + + + | Result panel 461 | + + + + + +------+ + + | | 2022-10-11 | [facility] | 76 | (missing) | (missing) | | (unavailable | 17:10:07 [facility] | | | | + + + +------+ + + + + | Result panel 462 | + + + + + +--------+ + + | | 2022-10-11 | [facility] | 96.5 | (missing) | (missing) | | (unavailable | 17:10:07 [facility] | | | | + + + +--------+ + + + + | Result panel 463 | + + + + + +--------+ + + | | 2022-10-11 | [facility] | 32.0 | (missing) | (missing) | | (unavailable | 17:10:07 [facility] | | | | + + + +--------+ + + + + | Result panel 464 | + + + + + +--------+ + + | | 2022-10-11 | [facility] | 33.2 | (missing) | (missing) | | (unavailable | 17:10:07 [facility] | | | | + + + +--------+ + + + + | Result panel 465 | + + + + + +--------+ + + | | 2022-10-11 | [facility] | 15.8 | (missing) | (missing) | | (unavailable | 17:10:07 [facility] | | | | + + + +--------+ + + + + | Result panel 466 | + + + + + +-------+ + + | | 2022-10-11 | [facility] | 136 | (missing) | (missing) | | (unavailable | 17:10:07 [facility] | | | | + + + +-------+ + + + + | Result panel 467 | + + + + + +------+ + + | | 2022-10-11 | [facility] | 89 | (missing) | (missing) | | (unavailable | 18:01:07 | [facility] | | | | + + + +------+ + + + + | Result panel 468 | + + + + + + + + + | | 2022-10-11 | [facility] | YELLOW | (missing) | (missing) | | (unavailable | 18:03:07 [facility] | | | | + + + + + + + + + | Result panel 469 | + + + + + +---------+ + + | | 2022-10-11 | [facility] | CLEAR | (missing) | (missing) | | (unavailable | 18:03:07 [facility] | | | | + + + +---------+ + + + + | Result panel 470 | + + + + + + + + + | | 2022-10-11 | [facility] | NEGATIVE | (missing) | (missing) | | (unavailable | 18:03:07 [facility] | | | | + + + + + + + + + | Result panel 471 | + + + + + + + + + | | 2022-10-11 | [facility] | NEGATIVE | (missing) | (missing) | | (unavailable | 18:03:07 [facility] | | | | + + + + + + + + + | Result panel 472 | + + + + + + + + + | | 2022-10-11 | [facility] | NEGATIVE | (missing) | (missing) | | (unavailable | 18::07 | [facility] | | | | + + + + + + + + + | Result panel 473 | + + + + + + + + + | | 2022-10-11 | [facility] | >=1.030 | (missing) | (missing) | | (unavailable | 18:03:07 | [facility] | | | | + + + + + + + + + | Result panel 474 | + + + + + + + + + | | 2022-10-11 | [facility] | NEGATIVE | (missing) | (missing) | | (unavailable | 18:03:07 | [facility] | | | | + + + + + + + + + | Result panel 475 | + + + + + +-------+ + + | | 2022-10-11 | [facility] | 5.5 | (missing) | (missing) | | (unavailable | 18:03:07 | [facility] | | | | + + + +-------+ + + + + | Result panel 476 | + + + + + + + + + | | 2022-10-11 | [facility] | NEGATIVE | (missing) | (missing) | | (unavailable | 18:: | [facility] | | | | + + + + + + + + + | Result panel 477 | + + + + + +-------+ + + | | 2022-10-11 | [facility] | 1.0 | (missing) | (missing) | | (unavailable | 18::07 | [facility] | | | | + + + +-------+ + + + + | Result panel 478 | + + + + + + + + + | | 2022-10-11 | [facility] | NEGATIVE | (missing) | (missing) | | (unavailable | 18::07 | [facility] | | | | + + + + + + + + + | Result panel 479 | + + + + + + + + + | | 2022-10-11 | [facility] | NEGATIVE | (missing) | (missing) | | (unavailable | 18:03:07 | [facility] | | | | + + + + + + + Social History No information. Vital Signs + + + +---------+ | date | measurement | value | units | + + + +---------+ | 2021-04-13 00:00 | BP_diastolic | 99 | mmHg | + + + +---------+ | 2021-04-13 00:00 | BP_systolic | 143 | mmHg | + + + +---------+ | 2021-04-13 00:00 | heart_rate | 76 | /min | + + + +---------+ | 2021-04-19 00:00 | BMI | 29.4 | kg/m2 | + + + +---------+ | 2021-04-19 00:00 | BP_diastolic | 86 | mmHg | + + + +---------+ | 2021-04-19 00:00 | BP_systolic | 115 | mmHg | + + + +---------+ | 2021-04-19 00:00 | heart_rate | 87 | /min | + + + +---------+ | 2021-04-19 00:00 | height_metric | 177.8 | cm | + + + +---------+ | 2021-04-19 00:00 | height_standard | 70 | in | + + + +---------+ | 2021-04-19 00:00 | o2_saturation | 93 | % | + + + +---------+ | 2021-04-19 00:00 | respiration_rate | 20 | /min | + + + +---------+ | 2021-04-19 00:00 | temperature_metric | 37.17 | C | | | | | | + + + +---------+ | 2021-04-19 00:00 | | 98.9 | F | | | temperature_standar | | | | | d | | | + + + +---------+ | 2021-04-19 00:00 | weight_metric | 92.99 | kg | + + + +---------+ | 2021-04-19 00:00 | weight_standard | 205 | lb | + + + +---------+ | 2021-04-19 00:00 | weight_standard | 205.01 | lb | + + + +---------+ | 2021-04-21 00:00 | BMI | 29.4 | kg/m2 | + + + +---------+ | 2021-04-21 00:00 | BP_diastolic | 99 | mmHg | + + + +---------+ | 2021-04-21 00:00 | BP_systolic | 124 | mmHg | + + + +---------+ | 2021-04-21 00:00 | heart_rate | 122 | /min | + + + +---------+ | 2021-04-21 00:00 | height_metric | 177.8 | cm | + + + +---------+ | 2021-04-21 00:00 | height_standard | 70 | in | + + + +---------+ | 2021-04-21 00:00 | o2_saturation | 96 | % | + + + +---------+ | 2021-04-21 00:00 | respiration_rate | 22 | /min | + + + +---------+ | 2021-04-21 00:00 | temperature_metric | 36.83 | C | | | | | | + + + +---------+ | 2021-04-21 00:00 | | 98.3 | F | | | temperature_standar | | | | | d | | | + + + +---------+ | 2021-04-21 00:00 | weight_metric | 92.99 | kg | + + + +---------+ | 2021-04-21 00:00 | weight_standard | 205 | lb | + + + +---------+ | 2021-04-21 00:00 | weight_standard | 205.01 | lb | + + + +---------+ | 2021-05-04 00:00 | BP_diastolic | 103 | mmHg | + + + +---------+ | 2021-05-04 00:00 | BP_systolic | 133 | mmHg | + + + +---------+ | 2021-05-04 00:00 | heart_rate | 114 | /min | + + + +---------+ | 2021-05-18 00:00 | BP_diastolic | 103 | mmHg | + + + +---------+ | 2021-05-18 00:00 | BP_systolic | 148 | mmHg | + + + +---------+ | 2021-05-18 00:00 | heart_rate | 64 | /min | + + + +---------+ | 2021-06-08 00:00 | BP_diastolic | 69 | mmHg | + + + +---------+ | 2021-06-08 00:00 | BP_systolic | 118 | mmHg | + + + +---------+ | 2021-06-08 00:00 | heart_rate | 108 | /min | + + + +---------+ | 2021-07-06 00:00 | BP_diastolic | 90 | mmHg | + + + +---------+ | 2021-07-06 00:00 | BP_systolic | 128 | mmHg | + + + +---------+ | 2021-07-06 00:00 | heart_rate | 80 | /min | + + + +---------+ | 2021-08-03 00:00 | BP_diastolic | 110 | mmHg | + + + +---------+ | 2021-08-03 00:00 | BP_systolic | 132 | mmHg | + + + +---------+ | 2021-08-03 00:00 | heart_rate | 105 | /min | + + + +---------+ | 2021-08-31 00:00 | BP_diastolic | 93 | mmHg | + + + +---------+ | 2021-08-31 00:00 | BP_systolic | 154 | mmHg | + + + +---------+ | 2021-08-31 00:00 | heart_rate | 76 | /min | + + + +---------+ | 2021-09-14 00:00 | BMI | 29.5 | kg/m2 | + + + +---------+ | 2021-09-14 00:00 | BP_diastolic | 92 | mmHg | + + + +---------+ | 2021-09-14 00:00 | BP_systolic | 123 | mmHg | + + + +---------+ | 2021-09-14 00:00 | heart_rate | 84 | /min | + + + +---------+ | 2021-09-14 00:00 | height_metric | 177.8 | cm | + + + +---------+ | 2021-09-14 00:00 | height_standard | 70 | in | + + + +---------+ | 2021-09-14 00:00 | o2_saturation | 97 | % | + + + +---------+ | 2021-09-14 00:00 | respiration_rate | 18 | /min | + + + +---------+ | 2021-09-14 00:00 | temperature_metric | 36.94 | C | | | | | | + + + +---------+ | 2021-09-14 00:00 | | 98.5 | F | | | temperature_standar | | | | | d | | | + + + +---------+ | 2021-09-14 00:00 | weight_metric | 93.13 | kg | + + + +---------+ | 2021-09-14 00:00 | weight_standard | 205.31 | lb | + + + +---------+ | 2021-09-14 00:00 | weight_standard | 205.32 | lb | + + + +---------+ | 2021-10-08 00:00 | BMI | 29.7 | kg/m2 | + + + +---------+ | 2021-10-08 00:00 | BP_diastolic | 89 | mmHg | + + + +---------+ | 2021-10-08 00:00 | BP_systolic | 109 | mmHg | + + + +---------+ | 2021-10-08 00:00 | heart_rate | 72 | /min | + + + +---------+ | 2021-10-08 00:00 | height_metric | 177.8 | cm | + + + +---------+ | 2021-10-08 00:00 | height_standard | 70 | in | + + + +---------+ | 2021-10-08 00:00 | o2_saturation | 99 | % | + + + +---------+ | 2021-10-08 00:00 | respiration_rate | 16 | /min | + + + +---------+ | 2021-10-08 00:00 | temperature_metric | 36.28 | C | | | | | | + + + +---------+ | 2021-10-08 00:00 | | 97.3 | F | | | temperature_standar | | | | | d | | | + + + +---------+ | 2021-10-08 00:00 | weight_metric | 93.9 | kg | + + + +---------+ | 2021-10-08 00:00 | weight_standard | 207.01 | lb | + + + +---------+ | 2021-11-13 00:00 | BMI | 29.7 | kg/m2 | + + + +---------+ | 2021-11-13 00:00 | BP_diastolic | 80 | mmHg | + + + +---------+ | 2021-11-13 00:00 | BP_systolic | 92 | mmHg | + + + +---------+ | 2021-11-13 00:00 | heart_rate | 60 | /min | + + + +---------+ | 2021-11-13 00:00 | height_metric | 177.8 | cm | + + + +---------+ | 2021-11-13 00:00 | height_standard | 70 | in | + + + +---------+ | 2021-11-13 00:00 | o2_saturation | 94 | % | + + + +---------+ | 2021-11-13 00:00 | respiration_rate | 16 | /min | + + + +---------+ | 2021-11-13 00:00 | temperature_metric | 36.56 | C | | | | | | + + + +---------+ | 2021-11-13 00:00 | | 97.8 | F | | | temperature_standar | | | | | d | | | + + + +---------+ | 2021-11-13 00:00 | weight_metric | 94.03 | kg | + + + +---------+ | 2021-11-13 00:00 | weight_metric | 94.04 | kg | + + + +---------+ | 2021-11-13 00:00 | weight_standard | 207.31 | lb | + + + +---------+ | 2021-11-13 00:00 | weight_standard | 207.32 | lb | + + + +---------+ | 2021-12-03 00:00 | BMI | 29.7 | kg/m2 | + + + +---------+ | 2021-12-03 00:00 | BP_diastolic | 76 | mmHg | + + + +---------+ | 2021-12-03 00:00 | BP_systolic | 104 | mmHg | + + + +---------+ | 2021-12-03 00:00 | heart_rate | 87 | /min | + + + +---------+ | 2021-12-03 00:00 | height_metric | 177.8 | cm | + + + +---------+ | 2021-12-03 00:00 | height_standard | 70 | in | + + + +---------+ | 2021-12-03 00:00 | o2_saturation | 94 | % | + + + +---------+ | 2021-12-03 00:00 | respiration_rate | 18 | /min | + + + +---------+ | 2021-12-03 00:00 | temperature_metric | 36.78 | C | | | | | | + + + +---------+ | 2021-12-03 00:00 | | 98.2 | F | | | temperature_standar | | | | | d | | | + + + +---------+ | 2021-12-03 00:00 | weight_metric | 94.03 | kg | + + + +---------+ | 2021-12-03 00:00 | weight_metric | 94.04 | kg | + + + +---------+ | 2021-12-03 00:00 | weight_standard | 207.31 | lb | + + + +---------+ | 2021-12-03 00:00 | weight_standard | 207.32 | lb | + + + +---------+ | 2022-05-31 00:00 | BMI | 29.7 | kg/m2 | + + + +---------+ | 2022-05-31 00:00 | height_metric | 177.8 | cm | + + + +---------+ | 2022-05-31 00:00 | height_standard | 70 | in | + + + +---------+ | 2022-05-31 00:00 | weight_metric | 93.89 | kg | + + + +---------+ | 2022-05-31 00:00 | weight_standard | 207 | lb | + + + +---------+ | 2022-06-01 00:00 | BP_diastolic | 80 | mmHg | + + + +---------+ | 2022-06-01 00:00 | BP_systolic | 116 | mmHg | + + + +---------+ | 2022-06-01 00:00 | heart_rate | 96 | /min | + + + +---------+ | 2022-06-01 00:00 | o2_saturation | 90 | % | + + + +---------+ | 2022-06-01 00:00 | respiration_rate | 18 | /min | + + + +---------+ | 2022-06-01 00:00 | temperature_metric | 36.33 | C | | | | | | + + + +---------+ | 2022-06-01 00:00 | | 97.4 | F | | | temperature_standar | | | | | d | | | + + + +---------+ | 2022-06-10 00:00 | BMI | 31.7 | kg/m2 | + + + +---------+ | 2022-06-10 00:00 | BP_diastolic | 90 | mmHg | + + + +---------+ | 2022-06-10 00:00 | BP_systolic | 105 | mmHg | + + + +---------+ | 2022-06-10 00:00 | heart_rate | 76 | /min | + + + +---------+ | 2022-06-10 00:00 | height_metric | 177.8 | cm | + + + +---------+ | 2022-06-10 00:00 | height_standard | 70 | in | + + + +---------+ | 2022-06-10 00:00 | o2_saturation | 96 | % | + + + +---------+ | 2022-06-10 00:00 | respiration_rate | 15 | /min | + + + +---------+ | 2022-06-10 00:00 | temperature_metric | 36.83 | C | | | | | | + + + +---------+ | 2022-06-10 00:00 | | 98.3 | F | | | temperature_standar | | | | | d | | | + + + +---------+ | 2022-06-10 00:00 | weight_metric | 100.24 | kg | + + + +---------+ | 2022-06-10 00:00 | weight_standard | 220.99 | lb | + + + +---------+ | 2022-06-10 00:00 | weight_standard | 221 | lb | + + + +---------+ | 2022-08-12 00:00 | BMI | 29.1 | kg/m2 | + + + +---------+ | 2022-08-12 00:00 | BP_diastolic | 54 | mmHg | + + + +---------+ | 2022-08-12 00:00 | BP_systolic | 92 | mmHg | + + + +---------+ | 2022-08-12 00:00 | heart_rate | 87 | /min | + + + +---------+ | 2022-08-12 00:00 | height_metric | 177.8 | cm | + + + +---------+ | 2022-08-12 00:00 | height_standard | 70 | in | + + + +---------+ | 2022-08-12 00:00 | o2_saturation | 94 | % | + + + +---------+ | 2022-08-12 00:00 | respiration_rate | 16 | /min | + + + +---------+ | 2022-08-12 00:00 | temperature_metric | 36.72 | C | | | | | | + + + +---------+ | 2022-08-12 00:00 | | 98.1 | F | | | temperature_standar | | | | | d | | | + + + +---------+ | 2022-08-12 00:00 | weight_metric | 92.08 | kg | + + + +---------+ | 2022-08-12 00:00 | weight_standard | 203 | lb | + + + +---------+ | 2022-10-11 00:00 | BMI | 30.1 | kg/m2 | + + + +---------+ | 2022-10-11 00:00 | BP_diastolic | 97 | mmHg | + + + +---------+ | 2022-10-11 00:00 | BP_systolic | 113 | mmHg | + + + +---------+ | 2022-10-11 00:00 | heart_rate | 58 | /min | + + + +---------+ | 2022-10-11 00:00 | height_metric | 177.8 | cm | + + + +---------+ | 2022-10-11 00:00 | height_standard | 70 | in | + + + +---------+ | 2022-10-11 00:00 | o2_saturation | 98 | % | + + + +---------+ | 2022-10-11 00:00 | respiration_rate | 18 | /min | + + + +---------+ | 2022-10-11 00:00 | temperature_metric | 36.44 | C | | | | | | + + + +---------+ | 2022-10-11 00:00 | | 97.6 | F | | | temperature_standar | | | | | d | | | + + + +---------+ | 2022-10-11 00:00 | weight_metric | 95.25 | kg | + + + +---------+ | 2022-10-11 00:00 | weight_standard | 210 | lb | + + + +---------+"
--- OUTSIDE RECORDS SUMMARY | ~2022-11-20 | XMS | Continuity of Care Document ---
Demographics + + + | Address | [address] | | | [place] [address] | + + + | Preferred Language | Unknown | + + + | Marital Status | | + + + | Sabianist Affiliation | Unknown | + + + | Race | White | + + + | Ethnic Group | Not or | + + + Author + + + | Author | [facility] | + + + | Organization | [facility] | + + + | Address | [address] | | | [place] [address] | + + + | Phone | | + + + Care Team Providers + + + + | Care Station Operator Name | Role | Phone | [...] + | 2021-10-10 00:00 | KETOCONAZOLE | [facility] | + + + + | 2021-11-17 00:00 | KETOCONAZOLE | [facility] | + + + + | 2021-12-03 00:00 | KETOCONAZOLE | [facility] | + + + + | 2022-06-01 00:00 | KETOCONAZOLE | [facility] | + + + + | 2022-06-10 00:00 | KETOCONAZOLE | [facility] | + + + + | 2022-08-12 00:00 | KETOCONAZOLE | [facility] | + + + + | 2022-09-24 00:00 | KETOCONAZOLE | [facility] | + + + + | 2022-10-11 00:00 | KETOCONAZOLE | [facility] | + + + + | 2021-10-10 00:00 | TRIAMCINOLONE ACETONIDE | [facility] | + + + + | 2021-11-17 00:00 | TRIAMCINOLONE ACETONIDE | [facility] | + + + + | 2021-12-03 00:00 | TRIAMCINOLONE ACETONIDE | [facility] | + + + + | 2022-06-01 00:00 | TRIAMCINOLONE ACETONIDE | [facility] | + + + + | 2022-06-10 00:00 | TRIAMCINOLONE ACETONIDE | [facility] | + + + + | 2022-08-12 00:00 | TRIAMCINOLONE ACETONIDE | [facility] | + + + + | 2022-09-24 00:00 | TRIAMCINOLONE ACETONIDE | [facility] | + + + + | 2022-10-11 00:00 | TRIAMCINOLONE ACETONIDE | [facility] | + + + + | 2021-10-08 00:00 | RIVAROXABAN | [facility] | + + + + | 2021-10-08 00:00 | RIVAROXABAN | [facility] | + + + + | 2021-10-08 00:00 | RIVAROXABAN | [facility] | + + + + | 2021-10-08 00:00 | RIVAROXABAN | [facility] | + + + + | 2021-10-08 00:00 | RIVAROXABAN | [facility] | + + + + | 2021-10-10 00:00 | RIVAROXABAN | [facility] | + + + + | 2021-11-17 00:00 | RIVAROXABAN | [facility] | + + + + | 2021-12-03 00:00 | RIVAROXABAN | [facility] | + + + + | 2022-06-01 00:00 | RIVAROXABAN | [facility] | + + + + | 2022-06-10 00:00 | RIVAROXABAN | [facility] | + + + + | 2022-08-12 00:00 | RIVAROXABAN | [facility] | + + + + | 2022-09-24 00:00 | RIVAROXABAN | [facility] | + + + + | 2022-10-11 00:00 | RIVAROXABAN | [facility] | + + + + | 2021-10-03 00:00 | Ergocalciferol (Vitamin | [facility] | | | D2) | | + + + + | 2021-10-10 00:00 | Ergocalciferol (Vitamin | [facility] | | | D2) | | + + + + | 2021-11-17 00:00 | Ergocalciferol (Vitamin | [facility] | | | D2) | | + + + + | 2021-12-03 00:00 | Ergocalciferol (Vitamin | [facility] | | | D2) | | + + + + | 2022-06-01 00:00 | Ergocalciferol (Vitamin | [facility] | | | D2) | | + + + + | 2022-06-10 00:00 | Ergocalciferol (Vitamin | [facility] | | | D2) | | + + + + | 2022-08-12 00:00 | Ergocalciferol (Vitamin | [facility] | | | D2) | | + + + + | 2022-09-24 00:00 | Ergocalciferol (Vitamin | [facility] | | | D2) | | + + + + | 2022-10-11 00:00 | Ergocalciferol (Vitamin | [facility] | | | D2) | | + + + + | 2022-06-10 00:00 | POTASSIUM CHLORIDE | [facility] | + + + + | 2022-06-10 00:00 | POTASSIUM CHLORIDE | [facility] | + + + + | 2022-06-10 00:00 | POTASSIUM CHLORIDE | [facility] | + + + + | 2021-10-03 00:00 | MELOXICAM | [facility] | + + + + | 2021-10-10 00:00 | MELOXICAM | [facility] | + + + + | 2021-11-17 00:00 | MELOXICAM | [facility] | + + + + | 2021-12-03 00:00 | MELOXICAM | [facility] | + + + + | 2022-06-01 00:00 | MELOXICAM | [facility] | + + + + | 2022-06-10 00:00 | MELOXICAM | [facility] | + + + + | 2022-08-12 00:00 | MELOXICAM | [facility] | + + + + | 2022-09-24 00:00 | MELOXICAM | [facility] | + + + + | 2022-10-11 00:00 | MELOXICAM | [facility] | + + + + | 2021-10-03 00:00 | NITROFURANTOIN | [facility] | | | MACROCRYSTAL | | + + + + | 2021-10-10 00:00 | NITROFURANTOIN | [facility] | | | MACROCRYSTAL | | + + + + | 2021-11-17 00:00 | NITROFURANTOIN | [facility] | | | MACROCRYSTAL | | + + + + | 2021-12-03 00:00 | NITROFURANTOIN | [facility] | | | MACROCRYSTAL | | + + + + | 2022-06-01 00:00 | NITROFURANTOIN | [facility] | | | MACROCRYSTAL | | + + + + | 2022-06-10 00:00 | NITROFURANTOIN | [facility] | | | MACROCRYSTAL | | + + + + | 2022-08-12 00:00 | NITROFURANTOIN | [facility] | | | MACROCRYSTAL | | + + + + | 2022-09-24 00:00 | NITROFURANTOIN | [facility] | | | MACROCRYSTAL | | + + + + | 2022-10-11 00:00 | NITROFURANTOIN | [facility] | | | MACROCRYSTAL | | + + + + | 2022-08-12 00:00 | SACUBITRIL/VALSARTAN | [facility] | + + + + | 2022-09-24 00:00 | SACUBITRIL/VALSARTAN | [facility] | + + + + | 2022-10-11 00:00 | SACUBITRIL/VALSARTAN | [facility] | + + + + | 2021-09-14 00:00 | CEPHALEXIN | [facility] | + + + + | 2021-09-14 00:00 | CEPHALEXIN | [facility] | + + + + | 2021-09-14 00:00 | CEPHALEXIN | [facility] | + + + + | 2021-09-14 00:00 | CEPHALEXIN | [facility] | + + + + | 2021-09-14 00:00 | CEPHALEXIN | [facility] | + + + + | 2021-09-14 00:00 | CEPHALEXIN | [facility] | + + + + | 2022-05-31 00:00 | CEPHALEXIN | [facility] | + + + + | 2022-05-31 00:00 | CEPHALEXIN | [facility] | + + + + | 2021-10-10 00:00 | DIGOXIN | [facility] | + + + + | 2021-11-17 00:00 | DIGOXIN | [facility] | + + + + | 2021-12-03 00:00 | DIGOXIN | [facility] | + + + + | 2022-06-01 00:00 | DIGOXIN | [facility] | + + + + | 2022-06-10 00:00 | DIGOXIN | [facility] | + + + + | 2022-08-12 00:00 | DIGOXIN | [facility] | + + + + | 2022-09-24 00:00 | DIGOXIN | [facility] | + + + + | 2022-10-11 00:00 | DIGOXIN | [facility] | + + + + | 2021-10-03 00:00 | | [facility] | | | SULFAMETHOXAZOLE/TRIMETHOPR | | | | IM | | + + + + | 2021-10-10 00:00 | | [facility] | | | SULFAMETHOXAZOLE/TRIMETHOPR | | | | IM | | + + + + | 2021-11-17 00:00 | | [facility] | | | SULFAMETHOXAZOLE/TRIMETHOPR | | | | IM | | + + + + | 2021-12-03 00:00 | | [facility] | | | SULFAMETHOXAZOLE/TRIMETHOPR | | | | IM | | + + + + | 2022-06-01 00:00 | | [facility] | | | SULFAMETHOXAZOLE/TRIMETHOPR | | | | IM | | + + + + | 2022-06-10 00:00 | | [facility] | | | SULFAMETHOXAZOLE/TRIMETHOPR | | | | IM | | + + + + | 2022-08-12 00:00 | | [facility] | | | SULFAMETHOXAZOLE/TRIMETHOPR | | | | IM | | + + + + | 2022-09-24 00:00 | | [facility] | | | SULFAMETHOXAZOLE/TRIMETHOPR | | | | IM | | + + + + | 2022-10-11 00:00 | | [facility] | | | SULFAMETHOXAZOLE/TRIMETHOPR | | | | IM | | + + + + | 2022-08-12 00:00 | TORSEMIDE | [facility] | + + + + | 2022-09-24 00:00 | TORSEMIDE | [facility] | + + + + | 2021-10-03 00:00 | FOLIC ACID | [facility] | + + + + | 2021-10-03 00:00 | CHOLECALCIFEROL (VITAMIN | [facility] | | | D3) | | + + + + | 2021-10-10 00:00 | CHOLECALCIFEROL (VITAMIN | [facility] | | | D3) | | + + + + | 2021-11-17 00:00 | CHOLECALCIFEROL (VITAMIN | [facility] | | | D3) | | + + + + | 2021-12-03 00:00 | CHOLECALCIFEROL (VITAMIN | [facility] | | | D3) | | + + + + | 2022-06-01 00:00 | CHOLECALCIFEROL (VITAMIN | [facility] | | | D3) | | + + + + | 2022-06-10 00:00 | CHOLECALCIFEROL (VITAMIN | [facility] | | | D3) | | + + + + | 2022-08-12 00:00 | CHOLECALCIFEROL (VITAMIN | [facility] | | | D3) | | + + + + | 2022-09-24 00:00 | CHOLECALCIFEROL (VITAMIN | [facility] | | | D3) | | + + + + | 2022-10-11 00:00 | CHOLECALCIFEROL (VITAMIN | [facility] | | | D3) | | + + + + | 2022-08-12 00:00 | CEFDINIR | [facility] | + + + + | 2022-08-12 00:00 | CEFDINIR | [facility] | + + + + | 2022-06-10 00:00 | FUROSEMIDE | [facility] | + + + + | 2022-06-10 00:00 | FUROSEMIDE | [facility] | + + + + | 2022-06-10 00:00 | FUROSEMIDE | [facility] | + + + + | 2021-10-10 00:00 | KETOCONAZOLE | [facility] | + + + + | 2021-11-17 00:00 | KETOCONAZOLE | [facility] | + + + + | 2021-12-03 00:00 | KETOCONAZOLE | [facility] | + + + + | 2022-06-01 00:00 | KETOCONAZOLE | [facility] | + + + + | 2022-06-10 00:00 | KETOCONAZOLE | [facility] | + + + + | 2022-08-12 00:00 | KETOCONAZOLE | [facility] | + + + + | 2022-09-24 00:00 | KETOCONAZOLE | [facility] | + + + + | 2022-10-11 00:00 | KETOCONAZOLE | [facility] | + + + + | 2021-10-03 00:00 | Tramadol HCl | [facility] | + + + + | 2021-10-03 00:00 | CYANOCOBALAMIN | [facility] | + + + + | 2021-10-10 00:00 | CYANOCOBALAMIN | [facility] | + + + + | 2021-11-17 00:00 | CYANOCOBALAMIN | [facility] | + + + + | 2021-12-03 00:00 | CYANOCOBALAMIN | [facility] | + + + + | 2022-06-01 00:00 | CYANOCOBALAMIN | [facility] | + + + + | 2022-06-10 00:00 | CYANOCOBALAMIN | [facility] | + + + + | 2022-08-12 00:00 | CYANOCOBALAMIN | [facility] | + + + + | 2022-09-24 00:00 | CYANOCOBALAMIN | [facility] | + + + + | 2022-10-11 00:00 | CYANOCOBALAMIN | [facility] | + + + + | 2022-10-11 00:00 | FLUOXETINE HCL | [facility] | + + + + | 2021-10-08 00:00 | GABAPENTIN | [facility] | + + + + | 2021-10-08 00:00 | GABAPENTIN | [facility] | + + + + | 2021-10-08 00:00 | GABAPENTIN | [facility] | + + + + | 2021-10-08 00:00 | GABAPENTIN | [facility] | + + + + | 2021-10-08 00:00 | GABAPENTIN | [facility] | + + + + | 2021-10-10 00:00 | GABAPENTIN | [facility] | + + + + | 2021-11-17 00:00 | GABAPENTIN | [facility] | + + + + | 2021-12-03 00:00 | GABAPENTIN | [facility] | + + + + | 2022-06-01 00:00 | GABAPENTIN | [facility] | + + + + | 2022-06-10 00:00 | GABAPENTIN | [facility] | + + + + | 2022-08-12 00:00 | GABAPENTIN | [facility] | + + + + | 2022-09-24 00:00 | GABAPENTIN | [facility] | + + + + | 2022-10-11 00:00 | GABAPENTIN | [facility] | + + + + | 2021-10-10 00:00 | MELOXICAM | [facility] | + + + + | 2021-11-17 00:00 | MELOXICAM | [facility] | + + + + | 2021-12-03 00:00 | MELOXICAM | [facility] | + + + + | 2022-06-01 00:00 | MELOXICAM | [facility] | + + + + | 2022-06-10 00:00 | MELOXICAM | [facility] | + + + + | 2022-08-12 00:00 | MELOXICAM | [facility] | + + + + | 2022-09-24 00:00 | MELOXICAM | [facility] | + + + + | 2022-10-11 00:00 | MELOXICAM | [facility] | + + + + | 2022-10-11 00:00 | FUROSEMIDE | [facility] | + + + + | 2021-10-03 00:00 | ESCITALOPRAM OXALATE | [facility] | + + + + | 2021-10-03 00:00 | BUPRENORPHINE HCL | [facility] | + + + + | 2021-10-03 00:00 | ROPINIROLE HCL | [facility] | + + + + | 2021-10-08 00:00 | ROPINIROLE HCL | [facility] | + + + + | 2021-10-08 00:00 | ROPINIROLE HCL | [facility] | + + + + | 2021-10-08 00:00 | ROPINIROLE HCL | [facility] | + + + + | 2021-10-08 00:00 | ROPINIROLE HCL | [facility] | + + + + | 2021-10-08 00:00 | ROPINIROLE HCL | [facility] | + + + + | 2021-10-10 00:00 | ROPINIROLE HCL | [facility] | + + + + | 2021-11-17 00:00 | ROPINIROLE HCL | [facility] | + + + + | 2021-12-03 00:00 | ROPINIROLE HCL | [facility] | + + + + | 2022-06-01 00:00 | ROPINIROLE HCL | [facility] | + + + + | 2022-06-10 00:00 | ROPINIROLE HCL | [facility] | + + + + | 2022-08-12 00:00 | ROPINIROLE HCL | [facility] | + + + + | 2022-09-24 00:00 | ROPINIROLE HCL | [facility] | + + + + | 2022-10-11 00:00 | ROPINIROLE HCL | [facility] | + + + + | 2021-10-03 00:00 | ATORVASTATIN CALCIUM | [facility] | + + + + | 2021-10-10 00:00 | ATORVASTATIN CALCIUM | [facility] | + + + + | 2021-11-17 00:00 | ATORVASTATIN CALCIUM | [facility] | + + + + | 2021-12-03 00:00 | ATORVASTATIN CALCIUM | [facility] | + + + + | 2022-06-01 00:00 | ATORVASTATIN CALCIUM | [facility] | + + + + | 2022-06-10 00:00 | ATORVASTATIN CALCIUM | [facility] | + + + + | 2022-08-12 00:00 | ATORVASTATIN CALCIUM | [facility] | + + + + | 2022-09-24 00:00 | ATORVASTATIN CALCIUM | [facility] | + + + + | 2022-10-11 00:00 | ATORVASTATIN CALCIUM | [facility] | + + + + | 2022-10-11 00:00 | CARVEDILOL | [facility] | + + + + | 2021-10-08 00:00 | TRAMADOL HCL | [facility] | + + + + | 2021-10-08 00:00 | TRAMADOL HCL | [facility] | + + + + | 2021-10-08 00:00 | TRAMADOL HCL | [facility] | + + + + | 2021-10-08 00:00 | TRAMADOL HCL | [facility] | + + + + | 2021-10-08 00:00 | TRAMADOL HCL | [facility] | + + + + | 2021-10-10 00:00 | TRAMADOL HCL | [facility] | + + + + | 2021-11-17 00:00 | TRAMADOL HCL | [facility] | + + + + | 2021-12-03 00:00 | TRAMADOL HCL | [facility] | + + + + | 2022-06-01 00:00 | TRAMADOL HCL | [facility] | + + + + | 2022-06-10 00:00 | TRAMADOL HCL | [facility] | + + + + | 2022-08-12 00:00 | TRAMADOL HCL | [facility] | + + + + | 2022-09-24 00:00 | TRAMADOL HCL | [facility] | + + + + | 2022-10-11 00:00 | TRAMADOL HCL | [facility] | + + + + | 2021-10-03 00:00 | ZOLPIDEM TARTRATE | [facility] | + + + + | 2021-10-03 00:00 | WARFARIN SODIUM | [facility] | + + + + | 2021-10-10 00:00 | WARFARIN SODIUM | [facility] | + + + + | 2021-11-17 00:00 | WARFARIN SODIUM | [facility] | + + + + | 2021-12-03 00:00 | WARFARIN SODIUM | [facility] | + + + + | 2022-06-01 00:00 | WARFARIN SODIUM | [facility] | + + + + | 2022-06-10 00:00 | WARFARIN SODIUM | [facility] | + + + + | 2022-08-12 00:00 | WARFARIN SODIUM | [facility] | + + + + | 2022-09-24 00:00 | WARFARIN SODIUM | [facility] | + + + + | 2022-10-11 00:00 | WARFARIN SODIUM | [facility] | + + + + | 2021-10-03 00:00 | TRAZODONE HCL | [facility] | + + + + | 2021-10-10 00:00 | TRAZODONE HCL | [facility] | + + + + | 2021-11-17 00:00 | TRAZODONE HCL | [facility] | + + + + | 2021-12-03 00:00 | TRAZODONE HCL | [facility] | + + + + | 2022-06-01 00:00 | TRAZODONE HCL | [facility] | + + + + | 2022-06-10 00:00 | TRAZODONE HCL | [facility] | + + + + | 2022-08-12 00:00 | TRAZODONE HCL | [facility] | + + + + | 2022-09-24 00:00 | TRAZODONE HCL | [facility] | + + + + | 2022-10-11 00:00 | TRAZODONE HCL | [facility] | + + + + | 2021-10-08 00:00 | TRAZODONE HCL | [facility] | + + + + | 2021-10-08 00:00 | TRAZODONE HCL | [facility] | + + + + | 2021-10-08 00:00 | TRAZODONE HCL | [facility] | + + + + | 2021-10-08 00:00 | TRAZODONE HCL | [facility] | + + + + | 2021-10-08 00:00 | TRAZODONE HCL | [facility] | + + + + | 2021-10-08 00:00 | OXYBUTYNIN CHLORIDE | [facility] | + + + + | 2021-10-08 00:00 | OXYBUTYNIN CHLORIDE | [facility] | + + + + | 2021-10-08 00:00 | OXYBUTYNIN CHLORIDE | [facility] | + + + + | 2021-10-08 00:00 | OXYBUTYNIN CHLORIDE | [facility] | + + + + | 2021-10-08 00:00 | OXYBUTYNIN CHLORIDE | [facility] | + + + + | 2021-10-10 00:00 | OXYBUTYNIN CHLORIDE | [facility] | + + + + | 2021-11-17 00:00 | OXYBUTYNIN CHLORIDE | [facility] | + + + + | 2021-12-03 00:00 | OXYBUTYNIN CHLORIDE | [facility] | + + + + | 2022-06-01 00:00 | OXYBUTYNIN CHLORIDE | [facility] | + + + + | 2022-06-10 00:00 | OXYBUTYNIN CHLORIDE | [facility] | + + + + | 2022-08-12 00:00 | OXYBUTYNIN CHLORIDE | [facility] | + + + + | 2022-09-24 00:00 | OXYBUTYNIN CHLORIDE | [facility] | + + + + | 2022-10-11 00:00 | OXYBUTYNIN CHLORIDE | [facility] | + + + + | 2021-10-03 00:00 | METOPROLOL SUCCINATE | [facility] | + + + + | 2021-10-08 00:00 | METOPROLOL SUCCINATE | [facility] | + + + + | 2021-10-08 00:00 | METOPROLOL SUCCINATE | [facility] | + + + + | 2021-10-08 00:00 | METOPROLOL SUCCINATE | [facility] | + + + + | 2021-10-08 00:00 | METOPROLOL SUCCINATE | [facility] | + + + + | 2021-10-10 00:00 | METOPROLOL SUCCINATE | [facility] | + + + + | 2021-11-17 00:00 | METOPROLOL SUCCINATE | [facility] | + + + + | 2021-12-03 00:00 | METOPROLOL SUCCINATE | [facility] | + + + + | 2022-06-01 00:00 | METOPROLOL SUCCINATE | [facility] | + + + + | 2022-06-10 00:00 | METOPROLOL SUCCINATE | [facility] | + + + + | 2022-08-12 00:00 | METOPROLOL SUCCINATE | [facility] | + + + + | 2022-09-24 00:00 | METOPROLOL SUCCINATE | [facility] | + + + + | 2022-10-11 00:00 | METOPROLOL SUCCINATE | [facility] | + + + + | 2021-10-08 00:00 | Dalfampridine | [facility] | + + + + | 2021-10-08 00:00 | Dalfampridine | [facility] | + + + + | 2021-10-08 00:00 | Dalfampridine | [facility] | + + + + | 2021-10-08 00:00 | Dalfampridine | [facility] | + + + + | 2021-10-08 00:00 | Dalfampridine | [facility] | + + + + | 2021-10-10 00:00 | Dalfampridine | [facility] | + + + + | 2021-11-17 00:00 | Dalfampridine | [facility] | + + + + | 2021-12-03 00:00 | Dalfampridine | [facility] | + + + + | 2022-06-01 00:00 | Dalfampridine | [facility] | + + + + | 2022-06-10 00:00 | Dalfampridine | [facility] | + + + + | 2022-08-12 00:00 | Dalfampridine | [facility] | + + + + | 2022-09-24 00:00 | Dalfampridine | [facility] | + + + + | 2022-10-11 00:00 | Dalfampridine | [facility] | + + + + | 2022-06-01 00:00 | METHENAMINE HIPPURATE | [facility] | + + + + | 2022-06-10 00:00 | METHENAMINE HIPPURATE | [facility] | + + + + | 2022-08-12 00:00 | METHENAMINE HIPPURATE | [facility] | + + + + | 2022-09-24 00:00 | METHENAMINE HIPPURATE | [facility] | + + + + | 2021-10-08 00:00 | BUPROPION HCL | [facility] | + + + + | 2021-10-08 00:00 | BUPROPION HCL | [facility] | + + + + | 2021-10-08 00:00 | BUPROPION HCL | [facility] | + + + + | 2021-10-08 00:00 | BUPROPION HCL | [facility] | + + + + | 2021-10-08 00:00 | BUPROPION HCL | [facility] | + + + + | 2021-10-10 00:00 | BUPROPION HCL | [facility] | + + + + | 2021-11-17 00:00 | BUPROPION HCL | [facility] | + + + + | 2021-12-03 00:00 | BUPROPION HCL | [facility] | + + + + | 2022-06-01 00:00 | BUPROPION HCL | [facility] | + + + + | 2022-06-10 00:00 | BUPROPION HCL | [facility] | + + + + | 2022-08-12 00:00 | BUPROPION HCL | [facility] | + + + + | 2022-09-24 00:00 | BUPROPION HCL | [facility] | + + + + | 2022-10-11 00:00 | BUPROPION HCL | [facility] | + + + + Problems + + + + | date | description | facility | + + + + | 2019-04-22 00:00 | Urinary tract infection | [facility] | + + + + | 2019-04-22 00:00 | Urinary tract infection | [facility] | + + + + | 2019-04-22 00:00 | Urinary tract infection | [facility] | + + + + | 2019-04-22 00:00 | Urinary tract infection | [facility] | + + + + | 2019-04-22 00:00 | Urinary tract infection | [facility] | + + + + | 2019-04-22 00:00 | Urinary tract infection | [facility] | + + + + | 2019-04-22 00:00 | Problem with [place] | [facility] | | | catheter | | + + + + | 2019-04-22 00:00 | Problem with [facility] | | | catheter | | + + + + | 2019-04-22 00:00 | Problem with [facility] | | | catheter | | + + + + | 2019-04-22 00:00 | Problem with [place] | | | catheter | | + + + + | 2019-04-22 00:00 | Problem with [place] | [facility] | | | catheter | | + + + + | 2019-04-22 00:00 | Problem with [place] | [facility] | | | catheter | | + + + + | 2019-08-23 00:00 | Edema of lower extremity | [facility] | + + + + | 2019-08-23 00:00 | Edema of lower extremity | [facility] | + + + + | 2019-08-23 00:00 | Edema of lower extremity | [facility] | + + + + | 2019-08-23 00:00 | Edema of lower extremity | [facility] | + + + + | 2019-08-23 00:00 | Edema of lower extremity | [facility] | + + + + | 2019-08-23 00:00 | Edema of lower extremity | [facility] | + + + + | 2021-04-21 00:00 | Atrial fibrillation with | [facility] | | | rapid ventricular response | | + + + + | 2021-04-21 00:00 | Atrial fibrillation with | [facility] | | | rapid ventricular response | | + + + + | 2021-04-21 00:00 | Atrial fibrillation with | [facility] | | | rapid ventricular response | | + + + + | 2021-04-21 00:00 | Atrial fibrillation with | [facility] | | | rapid ventricular response | | + + + + | 2021-04-21 00:00 | Atrial fibrillation with | [facility] | | | rapid ventricular response | | + + + + | 2021-04-21 00:00 | Atrial fibrillation with | [facility] | | | rapid ventricular response | [...] + + + | 2021-08-31 09:00 | ENVIRONMENTAL SCIENTISTS (CURRENT) USE OF | [facility] | | | ANTICOAGULANTS | | + + + + | 2021-09-14 00:00 | Dehydration | [facility] | + + + + | 2021-09-14 00:00 | Dehydration | [facility] | + + + + | 2021-09-14 00:00 | Dehydration | [facility] | + + + + | 2021-09-14 00:00 | Dehydration | [facility] | + + + + | 2021-09-14 00:00 | Dehydration | [facility] | + + + + | 2021-09-14 00:00 | Dehydration | [facility] | + + + + | 2021-09-14 [...] + + | 2021-09-14 09:49 | 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[employer] | | | 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 | [employer] | + + + + | 2021-09-14 09:49 | Other manager terminal (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) | [employer] | | | [...] | 2021-10-04 00:00 | Pulmonary edema | [facility] | + + + + | 2021-10-04 00:00 | Pulmonary edema | [facility] | + + + + | 2021-10-04 00:00 | Pulmonary edema | [facility] | + + + + | 2021-10-04 00:00 | Pulmonary edema | [facility] | + + + + | 2021-10-04 00:00 | Pulmonary edema | [facility] | + + + + | 2021-10-04 00:00 | Hypoxia | [facility] | + + + + | 2021-10-04 00:00 | Hypoxia | [facility] | + + + + | 2021-10-04 00:00 | Hypoxia | [facility] | + + + + | 2021-10-04 00:00 | Hypoxia | [facility] | + + + + | 2021-10-04 00:00 | Hypoxia | [facility] | + + + + | 2021-10-04 00:00 | Elevated international | [facility] | | | normalized ratio (INR) | | + + + + | 2021-10-04 00:00 | Elevated international | [facility] | | | normalized ratio (INR) | | + + + + | 2021-10-04 00:00 | Elevated international | [facility] | | | normalized ratio (INR) | | + + + + | 2021-10-04 00:00 | Elevated international | [facility] | | | normalized ratio (INR) | | + + + + | 2021-10-04 00:00 | Elevated international | [facility] | | | normalized ratio [...] + + | 2021-12-03 07:24 | OTHER CUSTODIAL (CURRENT) | [facility] | | | DRUG [...] | IHDE | | | atherosclerosis of [place] | | | | arteries of extremities, [...] + + | 2022-05-31 20:10 | OTHER ENVIRONMENTAL SCIENTISTS (CURRENT) | [facility] | | | DRUG [...] 2022-06-10 00:00 | Acute on chronic | [facility] | | | congestive heart failure | | + + + + | 2022-06-10 00:00 | Acute on chronic | [facility] | | | congestive heart failure | | + + + + | 2022-06-10 00:00 | Acute on chronic | [facility] | | | congestive heart failure | | + + + + | 2022-06-10 00:00 | History of laparoscopic | [facility] | | | adjustable gastric banding | | + + + + | 2022-06-10 00:00 | History of laparoscopic | [facility] | | | adjustable gastric banding | | + + + + | 2022-06-10 00:00 | History of laparoscopic | [facility] | | | adjustable gastric banding | [...] + + | 2022-06-10 18:37 | OTHER CUSTODIAL (CURRENT) | [facility] | | | DRUG [...] + + + | 2022-08-12 00:54 | ENVIRONMENTAL SCIENTISTS (CURRENT) USE OF | [facility] | | [...] | 2022-10-11 00:00 | Multiple sclerosis | [facility] | + + + + | 2022-10-11 00:00 | Weakness | [facility] | + + + + | 2022-10-11 [...] + + + | 2022-10-11 16:41 | ENVIRONMENTAL SCIENTISTS (CURRENT) USE OF | [facility] | | | ANTICOAGULANTS | | + + + + | 2022-10-11 16:41 | OTHER ENVIRONMENTAL SCIENTISTS (CURRENT) | [facility] | | | DRUG [...] + + + | 2022-10-25 19:42 | CUSTODIAL (CURRENT) USE OF | [facility] | | [...] (missing) | | (unavailable | 10:05 | Kdae | | | | | ) | [...] (missing) | | (unavailable | 12:00 | Kaed | | | | | [...] (missing) | | (unavailable | 12:34 | Akde | | | | | [...] (missing) | | (unavailable | 20:20:08 | Kaed | | | | | [...] (missing) | | (unavailable | 18:50:07 | Akde | | | | | [...] (missing) | | (unavailable | 19:55:07 | Kaed | | | | | [...] (missing) | | (unavailable | 19:55:07 | Kaed | | | | | [...]
[~2022-11-20 00:01] MED LIST changes: +CARVEDILOL3.125 MG PO; +CEFDINIR300 MG PO; +ENTRESTO 24 MG1 EACH PO; +FLUOXETINE HCL10 MG PO; +FUROSEMIDE40 MG PO; +TORSEMIDE20 MG PO
--- OUTSIDE RECORDS SUMMARY | 2022-11-20 00:04 | XMS ---
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 No recent Security Events currently on file CRITERIA MET - 6 ED Visits in 6 Months - [facility] - [facility] - 2 Visits in 30 Days CARE PROVIDERS Angi Nielsen Wind Turbine Blade Repair Technician/Trip Follower 10/25/2022-Current PHONE: [phone] LUCIO TAO Dentist: Baseball Inspector And Repairer 04/23/2019-Current PHONE: [phone] -Bell- Dentist: Baseball Inspector And Repairer [facility] PHONE: [phone] EVENS GARCIA [facility] Current PHONE: [phone] TIERRA CONRAD Internal Medicine Current PHONE: [phone] TIFFANY Glover MD, SPENCER [employer] Turb[employer] Blade Repair Technician/Trip Follower Current PHONE: [phone] ELEANOR GUAN Nurse Practitioner: Family Current PHONE: Unknown MARGARET CORDERO Internal Medicine Current PHONE: [phone] LESLEY URBAN I. Physician Check Clerk Current PHONE: Unknown PAGE KELLEY Nurse Practitioner Current PHONE: Unknown LEXA ONTIVEROS Internal Medicine Current PHONE: [phone] SCOUT GANT Nurse Practitioner Woody MUNIZ PHONE: [phone] SILVESTRE RIPLEY [facility] Current PHONE: [facility]: [phone] AARON COLON Nurse Practitioner Current PHONE: [phone] MK [facility] [place] Current PHONE: Unknown Branden has no Care Guidelines for this patient. Kuldeep VISIT COUNT (12 MO.) 7 DIONI Garcia 1 [facility]do [facility] TOTAL 10 NOTE: Visits indicate total known visits. ED/UCC VISIT TRACKING (12 MO.) 11/20/2022 00:01 [facility] [place] TYPE: Emergency COMPLAINT: - LOW HEART RATE 10/25/2022 19:42 [facility] [place] TYPE: Emergency COMPLAINT: - CHEST PAIN DIAGNOSES: - Allergy status to other drugs, medicaments and biological substances - Chest pain, unspecified - Heart failure, unspecified - Latex allergy status - termite helper (current) use of antithrombotics/antiplatelets - Multiple sclerosis - Obesity, unspecified - Personal history of nicotine dependence - Presence of right artificial hip joint 10/11/2022 16:41 [facility] [place] TYPE: Emergency COMPLAINT: - CONFUSION DIAGNOSES: - Allergy status to other drugs, medicaments and biological substances - Disorientation, unspecified - Heart failure, unspecified - termite helper (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 - Multiple sclerosis - Obesity, unspecified - Other senior care (current) drug therapy - Unspecified atrial fibrillation - Weakness 08/12/2022 16:44 [facility] TYPE: Emergency DIAGNOSES: - Weakness - Heart Palpitations - Shortness of Breath 08/12/2022 00:54 [facility] TYPE: Emergency COMPLAINT: - WEAKNESS DIAGNOSES: - Body mass index [BMI] 29.0-29.9, adult - Heart failure, unspecified - termite helper (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 - Obesity, unspecified - Personal history of nicotine dependence - Unspecified atrial fibrillation - Urinary tract infection, site not specified - Weakness 08[facility]22 13[facility] DIAGNOSES: - Dizziness and giddiness - Multiple sclerosis - Vertigo (Recurrent) 06/10/2022 18:37 [facility] [place] TYPE: Emergency COMPLAINT: - CHEST PAIN, VOMITING, LOW FEVER, CHILLS DIAGNOSES: - Allergy status to other drugs, medicaments and biological substances - Heart failure, unspecified - Nausea with vomiting, unspecified - Obesity, unspecified - Other senior care (current) drug therapy - Personal history of nicotine dependence - Unspecified atrial fibrillation 05/31/2022 20:10 DIONI Velasco TYPE: Emergency COMPLAINT: - WEAKNESS DIAGNOSES: - Allergy status to other drugs, medicaments and biological substances - Obesity, unspecified - Other senior care (current) drug therapy - Personal history of nicotine dependence - Unspecified atrial fibrillation - Urinary tract infection, site not specified - Weakness 01/27/2022 12:47 [facility] Alma LANG TYPE: Emergency DIAGNOSES: - Acute cystitis without hematuria - Sepsis, unspecified organism - Fatigue - Hypotension 12/03/2021 07:24 [facility] [place] TYPE: Emergency COMPLAINT: - FALL, R HIP/HEAD INJURY DIAGNOSES: - Allergy status to other drugs, medicaments and biological substances - Contact with and (suspected) exposure to COVID-19 - Displaced fracture of base of neck of right femur, initial encounter for closed fracture - Heart failure, unspecified - Obesity, unspecified - Other long term care phlebotomist (current) drug therapy - Personal history of nicotine dependence - Striking against or struck by other objects, initial encounter - Unspecified atrial fibrillation INPATIENT VISIT TRACKING (12 MO.) 10/24/2022 07:48 [facility]: [facility] DIAGNOSES: - Acute on chronic combined systolic (congestive) and diastolic (congestive) heart failure - 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 - Bradycardia, unspecified - Chronic kidney disease, stage 3a - Dependence on other enabling machines and devices - Dilated cardiomyopathy - Nonrheumatic aortic (valve) stenosis - Obstructive sleep apnea (adult) (pediatric) - Other cardiomyopathies - Paroxysmal atrial fibrillation - Presence of prosthetic heart valve 08/12/2022 16:44 [facility] Karthik LANG TYPE: Internal Medicine DIAGNOSES: - Dilated cardiomyopathy - Dizziness and giddiness - Encounter for screening, unspecified - Multiple sclerosis - Restless legs syndrome - Weakness [facility] DIAGNOSES: - Acute on chronic systolic (congestive) heart failure - Atherosclerotic heart disease of stebbins coronary artery with other forms of angina [...] failure - Right Hip Fracture 02/08/2022 09:43 [facility] DIAGNOSES: - [...] Unsteadiness on feet - Weakness 01/27/2022 12:47 [facility] Karthik LANG TYPE: Medical Surgical DIAGNOSES: - Acute cystitis without hematuria - Acute on chronic systolic (congestive) heart failure - Atherosclerotic heart disease of stebbins coronary artery with other forms of angina [...] gait and mobility 12/04/2021 03:38 [facility] TYPE: General Medicine COMPLAINT: - Hip fx Afib RVR DIAGNOSES: - Acute combined systolic (congestive) and diastolic (congestive) heart failure - Heart failure, unspecified - Longstanding persistent atrial fibrillation - Other specified abnormal findings of blood chemistry - Unspecified atherosclerosis of stebbins arteries of extremities, other extremity [email or web address]
[2022-11-20] MEDS ORDERED: OXYBUTYNIN CHLO10 MG PO (00:13)
[2022-11-20] MEDS ORDERED: FUROSEMIDE40 MG PO (00:13)
[2022-11-20 00:19] LABS: BASOPHILS 0.6 % (0-2); EOSINOPHILS 3.4 % (0-6); HEMATOCRIT 36.8 % (35.0-50.0); HEMOGLOBIN 12.2 g/dL (12.0-18.0); LYMPHOCYTES 13.2 % (24-44); MCH 32.4 (27-36); MCHC 33.2 g/dl (30-36); MCV 97.6 fl (81-99); MONOCYTES 11.6 % (0-12); NEUTROPHILS 71.2 % (39-80); PLATELET COUNT 100 K/uL (140-440); RBC 3.77 M/ul (4.3-5.7)
[2022-11-20 00:27] LABS: ALBUMIN 3.4 g/dL (3.4-5.0); ALBUMIN/GLOBULIN RATIO 1.21 (1.1-2.4); ANION GAP 6.9 (7-21); BILIRUBIN, TOTAL 0.8 ng/dL (0.2-1.0); BUN/CREATININE RATIO 26.08 (6.0-28.6); CALCIUM 8.6 mg/dL (8.5-10.1); CREATININE, SERUM 1.38 mg/dL (0.70-1.30); POTASSIUM 4.9 mmol/L (3.5-5.1); PROTEIN, TOTAL 6.2 g/dL (6.4-8.2)
[2022-11-20 00:30] LABS: BILIRUBIN, URINE NEGATIVE (negative); BLOOD/HGB, URINE TRACE-I (Negative); KETONE, URINE NEGATIVE (Negative); LEUK ESTERASE, URINE SMALL (negative); NITRITE, URINE NEGATIVE (negative); PH, URINE 5.5 (5-7)
[2022-11-20 00:35] LABS: BACTERIA, URINE 2+ /hpf (negative); EPITHELIAL CELLS, URINE SQUAMOUS 1+ /lpf (0-1+); REFLEX CULTURE, URINE Yes (No)
[2022-11-20] MEDS ORDERED: CEPHALEXIN500 M1 PO (00:43)
[2022-11-20 05:30] VITALS: BP 97/80
== END 2022-11-20 05:39 | disposition home or self-care (01) ==
LOC: ED 00:01
PROVIDERS: Family Medicine
DX: N39.0 Urinary tract infection, site not specified (principal); G35 Multiple sclerosis; I48.91 Unspecified atrial fibrillation; I50.9 Heart failure, unspecified; E66.9 Obesity, unspecified; Z68.29 Body mass index [BMI] 29.0-29.9, adult; Z87.891 Personal history of nicotine dependence; Z88.8 Allergy status to other drugs, medicaments and biological substances; Z91.040 Latex allergy status; Z79.01 Long term (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; Z79.899 Other long term (current) drug therapy
CPT/HCPCS: 36415; 80053; 81001; 85025; 87088; 96365; 99285-25; J0696; J7040

== ENCOUNTER 2023-01-14 10:42 | Emergency (ER) | payer MEDICARE, OTHER ==
[~2023-01-14] VITALS: Ht 177.8 cm; Wt 97.9 kg
[~2023-01-14 10:42] MED LIST changes: +OXYBUTYNIN CHLO10 MG PO
--- OUTSIDE RECORDS SUMMARY | 2023-01-14 10:45 | XMS ---
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 CARTER Security Wet Process Head Miller Events No recent Security Events currently on file CRITERIA MET - 6 ED Visits in 6 Months - [facility] CARE PROVIDERS Angi Nielsen Metal Cans Supervisor/Control System Manager 10/25/2022-Current PHONE: [phone] LUCIO TAO Dentist: Vice President Of Marketing 04/23/2019-Current PHONE: [phone] -[place]- Dentist: Vice President Of Marketing [facility] PHONE: [phone] [place] GARCIA [facility] Current PHONE: [phone] TIERRA CONRAD Internal Medicine Current PHONE: [phone] TIFFANY Glover MD, SPENCER Metal Cans Supervisor/Control System Manager Current PHONE: [phone] ELEANOR GUAN Nurse Practitioner: Family Current PHONE: Unknown MARGARET CORDERO Internal Medicine Current PHONE: [phone] LESLEY URBAN I. Physician Farm Equipment Service Technician Current PHONE: Unknown PAGE KELLEY Nurse Practitioner Current PHONE: Unknown LEXA ONTIVEROS Internal Medicine Current PHONE: [phone] SCOUT GANT Nurse Practitioner Woody MUNIZ PHONE: [phone] [facility] Current PHONE: Unknown JONELLE PUGH [facility] Current PHONE: [phone] AARON COLON Nurse Practitioner Current PHONE: [phone] [facility] Current PHONE: Unknown Branden has no Care Guidelines for this patient. Kuldeep VISIT COUNT (12 MO.) 8 DIONI Garcia 1 [facility] [address] [place] [place] ([place]) 1 [facility] TOTAL 11 NOTE: Visits indicate total known visits. ED/UCC VISIT TRACKING (12 MO.) 01/14/2023 10:42 [place] TYPE: Emergency COMPLAINT: - WEAKNESS 11/23/2022 23:07 [place] TYPE: Emergency COMPLAINT: - SHORTNESS OF BREATH DIAGNOSES: - Allergy status to other drugs, medicaments and biological substances - Contact with and (suspected) exposure to COVID-19 - Heart failure, unspecified - Latex allergy status - Low back pain, unspecified - Multiple sclerosis - Obesity, unspecified - Other intermission coordinator (current) drug therapy - Personal history of nicotine dependence - Unspecified atrial fibrillation - Weakness 11/20/2022 00:01 [place] TYPE: Emergency COMPLAINT: - LOW HEART RATE DIAGNOSES: - Allergy status to other drugs, medicaments and biological substances - Body mass index [BMI] 29.0-29.9, adult - Heart failure, unspecified - Latex allergy status - custodial (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 - Multiple sclerosis - Obesity, unspecified - Other intermission coordinator (current) drug therapy - Personal history of nicotine dependence - Unspecified atrial fibrillation - Urinary tract infection, site not specified - Weakness 10/25/2022 19:[address] [facility] [address] [facility] [place] TYPE: Emergency COMPLAINT: - CHEST PAIN DIAGNOSES: - Allergy status to other drugs, medicaments and biological substances - Chest pain, unspecified - Heart failure, unspecified - Latex allergy status - custodial (current) use of antithrombotics/antiplatelets - Multiple sclerosis - Obesity, unspecified - Personal history of nicotine dependence - Presence of right artificial hip joint 10[facility]22 [facility] [place] [facility] COMPLAINT: - CONFUSION DIAGNOSES: - Allergy status to other drugs, medicaments and biological substances - Disorientation, unspecified - Heart failure, unspecified - terminal system operator (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 - Multiple sclerosis - Obesity, unspecified - Other intermission coordinator (current) drug therapy - Unspecified atrial fibrillation - Weakness [facility] DIAGNOSES: - Weakness - Heart Palpitations - Shortness of Breath 08/12/2022 00:54 [place] TYPE: Emergency COMPLAINT: - WEAKNESS DIAGNOSES: - Body mass index [BMI] 29.0-29.9, adult - Heart failure, unspecified - terminal system operator (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 - Obesity, unspecified - Personal history of nicotine dependence - Unspecified atrial fibrillation - Urinary tract infection, site not specified - Weakness 08/03/2022 13:28 [facility] TYPE: Emergency DIAGNOSES: - Dizziness and giddiness - Multiple sclerosis - Vertigo (Recurrent) 06/10/2022 18:37 [place] TYPE: Emergency COMPLAINT: - CHEST PAIN, VOMITING, LOW FEVER, CHILLS DIAGNOSES: - Allergy status to other drugs, medicaments and biological substances - Heart failure, unspecified - Nausea with vomiting, unspecified - Obesity, unspecified - Other retirement (current) drug therapy - Personal history of nicotine dependence - Unspecified atrial fibrillation 05/31/2022 20:[address] [facility] [address] [facility] [place] TYPE: Emergency COMPLAINT: - WEAKNESS DIAGNOSES: - Allergy status to other drugs, medicaments and biological substances - Obesity, unspecified - Other retirement (current) drug therapy - Personal history of nicotine dependence - Unspecified atrial fibrillation - Urinary tract infection, site not specified - Weakness 01/27/2022 12:47 [facility] Karthik LANG ([place]) TYPE: Emergency DIAGNOSES: - Acute cystitis without hematuria - Sepsis, unspecified organism - Fatigue - Hypotension INPATIENT VISIT TRACKING (12 MO.) 10/24/2022 07:48 [facility] TYPE: Internal Medicine DIAGNOSES: - Acute on chronic combined systolic (congestive) and diastolic (congestive) heart failure - Atherosclerotic heart disease of [place] coronary artery without angina pectoris - Bradycardia, unspecified - Chronic kidney disease, stage 3a - Dependence on other enabling machines and devices - Dilated cardiomyopathy - Nonrheumatic aortic (valve) stenosis - Obstructive sleep apnea (adult) (pediatric) - Other cardiomyopathies - Paroxysmal atrial fibrillation - Presence of prosthetic heart valve 08/12/2022 16:44 [facility] TYPE: Internal Medicine DIAGNOSES: - Dilated cardiomyopathy - Dizziness and giddiness - Encounter for screening, unspecified - Multiple sclerosis - Restless legs syndrome - Weakness 02/14/2022 12:30 [facility] Jesus LANG ([place]) TYPE: Inpatient Rehab DIAGNOSES: - Acute on chronic systolic (congestive) heart failure - Atherosclerotic heart disease of [place] coronary artery with other forms of angina [...] failure - Right Hip Fracture 02/08/2022 09:43 [facility] Jesus LANG ([place]) TYPE: Surgical Services DIAGNOSES: - Chronic systolic [...] Unsteadiness on feet - Weakness 01/27/2022 12:47 [facility] Jesus LANG ([place]) TYPE: Medical Surgical DIAGNOSES: - Acute cystitis without hematuria - Acute on chronic systolic (congestive) heart failure - Atherosclerotic heart disease of [place] coronary artery with other forms of angina [...] - Unspecified abnormalities of gait and mobility [id number]
[2023-01-14 13:41] LABS: BILIRUBIN, URINE NEGATIVE (negative); BLOOD/HGB, URINE TRACE-I (Negative); KETONE, URINE NEGATIVE (Negative); LEUK ESTERASE, URINE MODERATE (negative); NITRITE, URINE POSITIVE (negative)
[2023-01-14 13:43] LABS: BASOPHILS 0.5 % (0-2); EOSINOPHILS 1.4 % (0-6); HEMATOCRIT 37.3 % (35.0-50.0); HEMOGLOBIN 12.5 g/dL (12.0-18.0); LYMPHOCYTES 11.7 % (24-44); MCH 32.7 (27-36); MCHC 33.6 g/dl (30-36); MCV 97.4 fl (81-99); NEUTROPHILS 77.4 % (39-80); PLATELET COUNT 86 K/uL (140-440); RBC 3.83 M/ul (4.3-5.7); RDW 15.6 (10.5-15.0)
[2023-01-14 13:49] LABS: BACTERIA, URINE 2+ /hpf (negative); CASTS, URINE NONE SEEN \\lpf; CRYSTALS, URINE NONE SEEN (0-1+); EPITHELIAL CELLS, URINE SQUAMOUS 1+ /lpf (0-1+); RED BLOOD CELLS, URINE 0-1 /hpf (0-5); REFLEX CULTURE, URINE Yes (No); WHITE BLOOD CELLS, URINE >50 /HPF (0-5)
[2023-01-14 13:50] LABS: COLLECTION TYPE, URINE CLEAN CATCH
[2023-01-14 14:06] LABS: ALBUMIN 3.5 g/dL (3.4-5.0); ALBUMIN/GLOBULIN RATIO 1.3 (1.1-2.4); BILIRUBIN, TOTAL 1.5 ng/dL (0.2-1.0); BUN/CREATININE RATIO 28.15 (6.0-28.6); CALCIUM 8.3 mg/dL (8.5-10.1); CREATININE, SERUM 1.03 mg/dL (0.70-1.30); PROTEIN, TOTAL 6.2 g/dL (6.4-8.2)
[2023-01-14] MEDS ORDERED: CEPHALEXIN500 M1 PO (15:47)
[2023-01-14 15:58] VITALS: BP 121/94
== END 2023-01-14 15:59 | disposition home or self-care (01) ==
LOC: ED 10:42
PROVIDERS: Emergency Medicine
DX: N39.0 Urinary tract infection, site not specified (principal); I50.9 Heart failure, unspecified; J40 Bronchitis, not specified as acute or chronic; U09.9 Post COVID-19 condition, unspecified; G35 Multiple sclerosis; I48.91 Unspecified atrial fibrillation; E66.9 Obesity, unspecified; Z87.891 Personal history of nicotine dependence; Z68.30 Body mass index [BMI] 30.0-30.9, adult; Z88.8 Allergy status to other drugs, medicaments and biological substances; Z91.040 Latex allergy status; Z79.01 Long term (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; Z79.899 Other long term (current) drug therapy
CPT/HCPCS: 36415; 71046; 80053; 81001; 83880; 85025; 87088; 99284-25; A9270

== ENCOUNTER 2023-01-23 11:48 | Emergency (ER) | payer MEDICARE, OTHER ==
[~2023-01-23] VITALS: Ht 177.8 cm; Wt 100.4 kg
--- OUTSIDE RECORDS SUMMARY | 2023-01-23 11:52 | XMS ---
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 CARTER Security Relay Motorman Events No recent Security Events currently on file CRITERIA MET - 6 ED Visits in 6 Months - [facility] - [facility] - 2 Visits in 30 Days CARE PROVIDERS Angi Nielsen Brazing Machine Feeder/Sociology Faculty Member 10/25/2022-Current PHONE: [phone] LUCIO TAO Dentist: Ball Rolling Machine Operator 04/23/2019-Current PHONE: [phone] -[place]- Dentist: Ball Rolling Machine Operator [facility] PHONE: [phone] [place] GARCIA [facility] Current PHONE: [phone] TIERRA CONRAD Internal Medicine Current PHONE: [phone] TIFFANY Glover MD, SPENCER Brazing Machine Feeder/Sociology Faculty Member Current PHONE: [phone] ELEANOR GUAN Nurse Practitioner: Family Current PHONE: Unknown MARGARET CORDERO Internal Medicine Current PHONE: [phone] LESLEY URBAN I. Physician Endless Belt Finisher Current PHONE: Unknown PAGE KELLEY Nurse Practitioner Current PHONE: Unknown LEXA ONTIVEROS Internal Medicine Current PHONE: [phone] SCOUT GANT Nurse Practitioner Woody MUNIZ PHONE: [phone] SILVESTRE CRESTON [facility] Current PHONE: Unknown [facility] Current PHONE: [phone] AARON COLON Nurse Practitioner Current PHONE: [phone] [facility] Current PHONE: Unknown Branden has no Care Guidelines for this patient. Kuldeep VISIT COUNT (12 MO.) 9 [facility] 1 [facility] [place] ([place]) [address] [place] TOTAL 12 NOTE: Visits indicate total known visits. ED/UCC VISIT TRACKING (12 MO.) 01/23/2023 11:49 [place] [place] TYPE: Emergency COMPLAINT: - LETHARGIC, WEIGHT GAIN OVERNIGHT, WEAK 01/14/2023 10:42 [place] [place] TYPE: Emergency COMPLAINT: - WEAKNESS DIAGNOSES: - Allergy status to other drugs, medicaments and biological substances - Body mass index [BMI] 30.0-30.9, adult - Bronchitis, not specified as acute or chronic - Heart failure, unspecified - Latex allergy status - group home (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 - Multiple sclerosis - Obesity, unspecified - Other alf (current) drug therapy - Personal history of nicotine dependence - Post COVID-19 condition, unspecified - Unspecified atrial fibrillation - Urinary tract infection, site not specified - Weakness 11/23/2022 23:07 [facility] [place] TYPE: Emergency COMPLAINT: - SHORTNESS OF BREATH DIAGNOSES: - Allergy status to other drugs, medicaments and biological substances - Contact with and (suspected) exposure to COVID-19 - Heart failure, unspecified - Latex allergy status - Low back pain, unspecified - Multiple sclerosis - Obesity, unspecified - Other alf (current) drug therapy - Personal history of nicotine dependence - Unspecified atrial fibrillation - Weakness 11/20/2022 00:01 [place] [place] TYPE: Emergency COMPLAINT: - LOW HEART RATE DIAGNOSES: - Allergy status to other drugs, medicaments and biological substances - Body mass index [BMI] 29.0-29.9, adult - Heart failure, unspecified - Latex allergy status - intermediate card tender (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 - Multiple sclerosis - Obesity, unspecified - Other alf (current) drug therapy - Personal history of nicotine dependence - Unspecified atrial fibrillation - Urinary tract infection, site not specified - Weakness 10/25/2022 19:42 [facility] [place] TYPE: Emergency COMPLAINT: - CHEST PAIN DIAGNOSES: - Allergy status to other drugs, medicaments and biological substances - Chest pain, unspecified - Heart failure, unspecified - Latex allergy status - intermediate card tender (current) use of antithrombotics/antiplatelets - Multiple sclerosis - Obesity, unspecified - Personal history of nicotine dependence - Presence of right artificial hip joint 10/11/2022 16:41 [facility] [place] TYPE: Emergency COMPLAINT: - CONFUSION DIAGNOSES: - Allergy status to other drugs, medicaments and biological substances - Disorientation, unspecified - Heart failure, unspecified - group home (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 - Multiple sclerosis - Obesity, unspecified - Other terminal makeup operator (current) drug therapy - Unspecified atrial fibrillation - Weakness 08/12/2022 16:44 [facility] TYPE: Emergency DIAGNOSES: - Weakness - Heart Palpitations - Shortness of Breath 08/12/2022 00:54 [place] TYPE: Emergency COMPLAINT: - WEAKNESS DIAGNOSES: - Body mass index [BMI] 29.0-29.9, adult - Heart failure, unspecified - intermediate card tender (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 - Obesity, unspecified - Personal history of nicotine dependence - Unspecified atrial fibrillation - Urinary tract infection, site not specified - Weakness 08/03/2022 13:28 [facility] [place] TYPE: Emergency DIAGNOSES: - Dizziness and giddiness - Multiple sclerosis - Vertigo (Recurrent) 06/10/2022 18:37 [facility] [place] TYPE: Emergency COMPLAINT: - CHEST PAIN, VOMITING, LOW FEVER, CHILLS DIAGNOSES: - Allergy status to other drugs, medicaments and biological substances - Heart failure, unspecified - Nausea with vomiting, unspecified - Obesity, unspecified - Other terminal makeup operator (current) drug therapy - Personal history of nicotine dependence - Unspecified atrial fibrillation 05/31/2022 20:10 [place] TYPE: Emergency COMPLAINT: - WEAKNESS DIAGNOSES: - Allergy status to other drugs, medicaments and biological substances - Obesity, unspecified - Other alf (current) drug therapy - Personal history of nicotine dependence - Unspecified atrial fibrillation - Urinary tract infection, site not specified - Weakness 01/27/2022 12:47 Shun LANG ([place]) TYPE: Emergency DIAGNOSES: - Acute cystitis without hematuria - Sepsis, unspecified organism - Fatigue - Hypotension INPATIENT VISIT TRACKING (12 MO.) 10/24/2022 07:48 [facility] TYPE: Internal Medicine DIAGNOSES: - Acute on chronic combined systolic (congestive) and diastolic (congestive) heart failure - Atherosclerotic heart disease of [place] coronary artery without angina pectoris - Bradycardia, unspecified - Chronic kidney disease, stage 3a - Dependence on other enabling machines and devices - Dilated cardiomyopathy - Nonrheumatic aortic (valve) stenosis - Obstructive sleep apnea (adult) (pediatric) - Other cardiomyopathies - Paroxysmal atrial fibrillation - Presence of prosthetic heart valve 08/12/2022 16:44 [facility] TYPE: Internal Medicine DIAGNOSES: - Dilated cardiomyopathy - Dizziness and giddiness - Encounter for screening, unspecified - Multiple sclerosis - Restless legs syndrome - Weakness [facility]22 [facility] DIAGNOSES: - Acute on chronic systolic (congestive) heart failure - Atherosclerotic heart disease of [place] coronary artery with other forms of angina [...] failure - Right Hip Fracture 02/08/2022 09:43 [facility] DIAGNOSES: - Chronic systolic [...] Unsteadiness on feet - Weakness 01/27/2022 12:47 [facility] Karthik LANG ([place]) TYPE: Medical Surgical DIAGNOSES: - Acute cystitis without hematuria - Acute on chronic systolic (congestive) heart failure - Atherosclerotic heart disease of [place] coronary artery with other forms of angina [...] - Unspecified abnormalities of gait and mobility [id number]
[2023-01-23] MEDS ORDERED: OMEPRAZOLE20 MG PO (11:58)
[2023-01-23 12:15] LABS: BASOPHILS 1.2 % (0-2); EOSINOPHILS 4.2 % (0-6); HEMATOCRIT 40.7 % (35.0-50.0); HEMOGLOBIN 13.4 g/dL (12.0-18.0); LYMPHOCYTES 16.8 % (24-44); MCH 32.2 (27-36); MCHC 32.9 g/dl (30-36); MCV 97.8 fl (81-99); MONOCYTES 9.3 % (0-12); NEUTROPHILS 68.5 % (39-80); PLATELET COUNT 150 K/uL (140-440); RBC 4.16 M/ul (4.3-5.7); RDW 15.9 (10.5-15.0)
[2023-01-23 12:37] LABS: ALBUMIN/GLOBULIN RATIO 1.25 (1.1-2.4); ANION GAP 9.8 (7-21); BILIRUBIN, TOTAL 0.8 ng/dL (0.2-1.0); BUN/CREATININE RATIO 31.4 (6.0-28.6); CREATININE, SERUM 1.21 mg/dL (0.70-1.30); POTASSIUM 4.8 mmol/L (3.5-5.1); PROTEIN, TOTAL 7.2 g/dL (6.4-8.2)
[2023-01-23 13:43] LABS: BILIRUBIN, URINE NEGATIVE (negative); BLOOD/HGB, URINE NEGATIVE (Negative); KETONE, URINE NEGATIVE (Negative); LEUK ESTERASE, URINE NEGATIVE (negative); NITRITE, URINE NEGATIVE (negative)
[2023-01-23 15:55] VITALS: BP 121/92
--- NOTE | 2023-01-23 21:09 | EKG ---
[facility] [address] [facility] [place] [address] Signed Atrial fibrillation Possible Anterior infarct (cited on or before 31-MAY-2022) Abnormal ECG When compared with ECG of 25-OCT-2022 19:43, Vent. rate has increased BY 27 BPM Confirmed by Alexa Gallardo MD () on 01/23/2023 9:09:01 PM Electronically Signed By: ALEXA GALLARDO MD 01/23/239 PATIENT NAME: DEBBI CARTER Electrocardiogram DATE OF : 54 PHYSICIAN: ALEXA GALLARDO MD REPORT #: [id number] REPORT IS CONFIDENTIAL AND NOT TO BE RELEASED WITHOUT AUTHORIZATION
== END 2023-01-23 15:55 | disposition home or self-care (01) ==
LOC: ED 11:48
PROVIDERS: Internal Medicine
DX: R53.1 Weakness (principal); I50.9 Heart failure, unspecified; I48.91 Unspecified atrial fibrillation; E66.9 Obesity, unspecified; G35 Multiple sclerosis; Z88.8 Allergy status to other drugs, medicaments and biological substances; Z91.040 Latex allergy status; Z79.01 Long term (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; Z79.899 Other long term (current) drug therapy; Z87.891 Personal history of nicotine dependence; Z68.31 Body mass index [BMI] 31.0-31.9, adult
CPT/HCPCS: 36415; 71045; 80053; 81003; 83880; 84484; 85025; 93005; 93010

== ENCOUNTER 2023-03-06 14:36 | Emergency (ER) | payer MEDICARE, OTHER ==
[~2023-03-06] VITALS: Ht 177.8 cm; Wt 98.0 kg
[~2023-03-06 14:36] MED LIST changes: +OMEPRAZOLE20 MG PO
--- OUTSIDE RECORDS SUMMARY | 2023-03-06 14:43 | XMS ---
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 CARTER Security Channel Specialist Events No recent Security Events currently on file CRITERIA MET - 6 ED Visits in 6 Months CARE PROVIDERS Angi Nielsen Machine Bander And Cellophaner Helper/Lining Cleaner 10/25/2022-Current PHONE: [phone] LUCIO TAO Dentist: Computer Forensics Examiner 04/23/2019-Current PHONE: [phone] -[place]- Dentist: Computer Forensics Examiner [facility] PHONE: [phone] EVENS GARCIA [facility] Current PHONE: [phone] TIERRA CONRAD Internal [facility] Current PHONE: [phone] TIFFANY Glover MD, SPENCER Machine Bander And Cellophaner Helper/Lining Cleaner Current PHONE: [phone] ELEANOR GUAN Nurse Practitioner: Family Current PHONE: Unknown MARGARET CORDERO Internal Medicine Current PHONE: [phone] LESLEY URBAN I. Physician Boot Maker Current PHONE: Unknown PAGE KELLEY Nurse Practitioner Current PHONE: Unknown LEXA ONTIVEROS Internal Medicine Current PHONE: [phone] SCOUT GANT Nurse Practitioner Woody MUNIZ PHONE: [phone] [facility] Current PHONE: Unknown [facility] Current PHONE: [phone] AARON COLON Nurse Practitioner Current PHONE: [phone] [facility] Current PHONE: Unknown Branden has no Care Guidelines for this patient. Kuldeep VISIT COUNT (12 MO.) 10 [facility] 1 [facility] TOTAL 12 NOTE: Visits indicate total known visits. ED/UCC VISIT TRACKING (12 MO.) 2023 14:36 [facility] [place] [place] TYPE: Emergency COMPLAINT: - FALL 01/23/2023 11:49 [facility] [place] [place] TYPE: Emergency COMPLAINT: - LETHARGIC, WEIGHT GAIN OVERNIGHT, WEAK DIAGNOSES: - Allergy status to other drugs, medicaments and biological substances - Body mass index [BMI] 31.0-31.9, adult - Heart failure, unspecified - Latex allergy status - skilled nursing (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 - Multiple sclerosis - Obesity, unspecified - Other retirement (current) drug therapy - Personal history of nicotine dependence - Unspecified atrial fibrillation - Weakness 01/14/2023 10:42 [facility] [place] [place] TYPE: Emergency COMPLAINT: - WEAKNESS DIAGNOSES: - Allergy status to other drugs, medicaments and biological substances - Body mass index [BMI] 30.0-30.9, adult - Bronchitis, not specified as acute or chronic - Heart failure, unspecified - Latex allergy status - terminal block assembler (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 - Multiple sclerosis - Obesity, unspecified - Other retirement (current) [...] Multiple sclerosis - Obesity, unspecified - Other retirement (current) drug therapy - Personal history of nicotine dependence - Unspecified atrial fibrillation - Weakness 11/20/2022 00:01 [facility] [place] TYPE: Emergency COMPLAINT: - LOW HEART RATE DIAGNOSES: - Allergy status to other drugs, medicaments and biological substances - Body mass index [BMI] 29.0-29.9, adult - Heart failure, unspecified - Latex allergy status - skilled nursing (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 - Multiple sclerosis - Obesity, unspecified - Other supervisor intermediates (current) drug therapy - Personal history of nicotine dependence - Unspecified atrial fibrillation - Urinary tract infection, site not specified - Weakness 10/25/2022 19:42 [facility] [place] TYPE: Emergency COMPLAINT: - CHEST PAIN DIAGNOSES: - Allergy status to other drugs, medicaments and biological substances - Chest pain, unspecified - Heart failure, unspecified - Latex allergy status - skilled nursing (current) use of antithrombotics/antiplatelets - Multiple sclerosis - Obesity, unspecified - Personal history of nicotine dependence - Presence of right artificial hip joint 10/11/2022 16:41 [facility] [place] [place] TYPE: Emergency COMPLAINT: - CONFUSION DIAGNOSES: - Allergy status to other drugs, medicaments and biological substances - Disorientation, unspecified - Heart failure, unspecified - skilled nursing (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 - Multiple sclerosis - Obesity, unspecified - Other retirement (current) drug therapy - Unspecified atrial fibrillation - Weakness 08/12/2022 16:44 [facility] TYPE: Emergency DIAGNOSES: - Weakness - Heart Palpitations - Shortness of Breath 08/12/2022 00:54 [facility] [place] TYPE: Emergency COMPLAINT: - WEAKNESS DIAGNOSES: - Body mass index [BMI] 29.0-29.9, adult - Heart failure, unspecified - skilled nursing (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 - Obesity, unspecified - Personal history of nicotine dependence - Unspecified atrial fibrillation - Urinary tract infection, site not specified - Weakness 08/03/2022 13:28 [facility].Natalie TYPE: Emergency DIAGNOSES: - Dizziness and giddiness [...] biological substances - Obesity, unspecified - Other supervisor intermediates (current) drug therapy - Personal history of nicotine dependence - Unspecified atrial fibrillation - Urinary tract infection, site not specified - Weakness INPATIENT VISIT TRACKING (12 MO.) 10/24/2022 07:48 [facility] TYPE: Internal Medicine DIAGNOSES: - Acute on chronic combined systolic (congestive) and diastolic (congestive) heart failure - Atherosclerotic heart disease of [place] coronary artery without angina pectoris - Bradycardia, unspecified - Chronic kidney disease, stage 3a - Dependence on other enabling machines and devices - Dilated cardiomyopathy - Nonrheumatic aortic (valve) stenosis - Obstructive sleep apnea (adult) (pediatric) - Other cardiomyopathies - Paroxysmal atrial fibrillation - Presence of prosthetic heart valve [facility]22 [facility] DIAGNOSES: - Dilated cardiomyopathy - Dizziness and giddiness - Encounter for screening, unspecified - Multiple sclerosis - Restless legs syndrome - Weakness [id number]
[2023-03-06 14:50] LABS: BASOPHILS 0.5 % (0-2); EOSINOPHILS 3.2 % (0-6); HEMATOCRIT 38.6 % (35.0-50.0); HEMOGLOBIN 12.9 g/dL (12.0-18.0); LYMPHOCYTES 10.9 % (24-44); MCH 32.1 (27-36); MCHC 33.4 g/dl (30-36); MCV 96.2 fl (81-99); MONOCYTES 10.6 % (0-12); NEUTROPHILS 74.8 % (39-80); PLATELET COUNT 118 K/uL (140-440); RBC 4.01 M/ul (4.3-5.7); RDW 14.8 (10.5-15.0)
[2023-03-06 15:13] LABS: ALBUMIN 3.7 g/dL (3.4-5.0); ALBUMIN/GLOBULIN RATIO 1.28 (1.1-2.4); BILIRUBIN, TOTAL 0.8 ng/dL (0.2-1.0); BUN/CREATININE RATIO 27.09 (6.0-28.6); CALCIUM 8.3 mg/dL (8.5-10.1); CREATININE, SERUM 1.55 mg/dL (0.70-1.30); MAGNESIUM 2.2 mg/dL (1.8-2.4); PROTEIN, TOTAL 6.6 g/dL (6.4-8.2)
[2023-03-06 15:28] LABS: BILIRUBIN, URINE NEGATIVE (negative); BLOOD/HGB, URINE NEGATIVE (Negative); KETONE, URINE NEGATIVE (Negative); LEUK ESTERASE, URINE NEGATIVE (negative); NITRITE, URINE POSITIVE (negative); PH, URINE 5.5 (5-7)
[2023-03-06 15:38] LABS: RED BLOOD CELLS, URINE 0-1 /hpf (0-5)
[2023-03-06 15:39] LABS: BACTERIA, URINE 2+ /hpf (negative); CASTS, URINE NONE SEEN \\lpf; COLLECTION TYPE, URINE CLEAN CATCH; CRYSTALS, URINE NONE SEEN (0-1+); EPITHELIAL CELLS, URINE SQUAMOUS 1+ /lpf (0-1+); REFLEX CULTURE, URINE Yes (No)
[2023-03-06] MEDS ORDERED: DONEPEZIL HCL5 M1 PO (15:40)
[2023-03-06 19:55] VITALS: BP 110/72
--- NOTE | 2023-03-07 06:02 | EKG ---
[facility] [address] [place], [place] [address] Signed Atrial fibrillation Prolonged QT Abnormal ECG When compared with ECG of 23-JAN-2023 12:20, QT has lengthened Confirmed by ISH FIELDS MD ([id number]) on 03/07/2023 6:02:27 AM Electronically Signed By: ISH FIELDS 03/07/23 0602 PATIENT NAME: DEBBI CARTER Electrocardiogram DATE OF : 54 PHYSICIAN: ISH FIELDS REPORT #: [id number] REPORT IS CONFIDENTIAL AND NOT TO BE RELEASED WITHOUT AUTHORIZATION
== END 2023-03-06 19:57 | disposition home or self-care (01) ==
LOC: ED 14:36
PROVIDERS: Emergency Medicine
DX: R55 Syncope and collapse (principal); E16.2 Hypoglycemia, unspecified; G35 Multiple sclerosis; I48.91 Unspecified atrial fibrillation; I50.9 Heart failure, unspecified; E66.9 Obesity, unspecified; Z87.891 Personal history of nicotine dependence; Z79.899 Other long term (current) drug therapy; Z79.01 Long term (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; Z88.8 Allergy status to other drugs, medicaments and biological substances; Z91.040 Latex allergy status
CPT/HCPCS: 36415; 51701; 70450; 71045; 72125; 80053; 81001; 83735; 84484; 85025; 87088; 93005; 93010; 99285-25; J7040

== ENCOUNTER 2023-03-12 05:35 | Emergency (ER) | payer MEDICARE, OTHER ==
[~2023-03-12] VITALS: Ht 177.8 cm; Wt 99.8 kg
[~2023-03-12 05:35] MED LIST changes: +DONEPEZIL HCL5 M1 PO
--- OUTSIDE RECORDS SUMMARY | 2023-03-12 05:43 | XMS ---
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 CARTER Security Cargo Supervisor Events No recent Security Events currently on file CRITERIA MET - 6 ED Visits in 6 Months - [facility] - 2 Visits in 30 Days CARE PROVIDERS Angi Nielsen Hvac Service Manager/Chemical Processing Technician 10/25/2022-Current PHONE: [phone] LUCIO TAO Dentist: Utility Person 04/23/2019-Current PHONE: [phone] -[place]- Dentist: Utility Person [facility] PHONE: [phone] EVENS GARCIA [facility] Current PHONE: [phone] TIERRA CONRAD Internal Medicine Current PHONE: [phone] TIFFANY Glover MD, SPENCER Hvac Service Manager/Chemical Processing Technician Current PHONE: [phone] ELEANOR GUAN Nurse Practitioner: Family Current PHONE: Unknown MARGARET CORDERO Internal Medicine Current PHONE: [phone] LESLEY URBAN I. Physician Gunsmith Apprentice Current PHONE: Unknown PAGE KELLEY Nurse Practitioner Current PHONE: Unknown LEXA ONTIVEROS Internal Medicine Current PHONE: [phone] SCOUT GANT Nurse Practitioner Woody MUNIZ PHONE: [phone] SILVESTRE [facility] Nursing [facility] Current PHONE: Unknown [facility] Current PHONE: [phone] AARON COLON Nurse Harry Current PHONE: [phone] Branden has no Care Guidelines for this patient. Kuldeep VISIT COUNT (12 MO.) 11 [facility] 1 [facility] TOTAL 13 NOTE: Visits indicate total known visits. ED/UCC VISIT TRACKING (12 MO.) 03/12/2023 05:35 [facility] [place] TYPE: Emergency COMPLAINT: - BLOOD IN URINE 2023 14:36 [facility] [place] [place] TYPE: Emergency COMPLAINT: - FALL DIAGNOSES: - Allergy status to other drugs, medicaments and biological substances - Heart failure, unspecified - Hypoglycemia, unspecified - Latex allergy status - long-term (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 - Multiple sclerosis - Obesity, unspecified - Other terminologist (current) drug therapy - Personal history of nicotine dependence - Syncope and collapse - Unspecified atrial fibrillation 01/23/2023 11:49 [facility] [place] TYPE: Emergency COMPLAINT: - LETHARGIC, WEIGHT GAIN OVERNIGHT, WEAK DIAGNOSES: - Allergy status to other drugs, medicaments and biological substances - Body mass index [BMI] 31.0-31.9, adult - Heart failure, unspecified - Latex allergy status - intermediate designer (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 - Multiple sclerosis - Obesity, unspecified - Other custodial (current) drug therapy - Personal history of nicotine dependence - Unspecified atrial fibrillation - Weakness 01/14/2023 10:42 [facility] [place] TYPE: Emergency COMPLAINT: - WEAKNESS DIAGNOSES: - Allergy status to other drugs, medicaments and biological substances - Body mass index [BMI] 30.0-30.9, adult - Bronchitis, not specified as acute or chronic - Heart failure, unspecified - Latex allergy status - long-term (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 - Multiple sclerosis - Obesity, unspecified - Other custodial (current) drug therapy - Personal history of [...] Multiple sclerosis - Obesity, unspecified - Other terminologist (current) drug therapy - Personal history of nicotine dependence - Unspecified atrial fibrillation - Weakness 11/20/2022 00:01 [facility] [place] TYPE: Emergency COMPLAINT: - LOW HEART RATE DIAGNOSES: - Allergy status to other drugs, medicaments and biological substances - Body mass index [BMI] 29.0-29.9, adult - Heart failure, unspecified - Latex allergy status - long-term (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 - Multiple sclerosis - Obesity, unspecified - Other terminologist (current) drug therapy - Personal history of nicotine dependence - Unspecified atrial fibrillation - Urinary tract infection, site not specified - Weakness 10/25/2022 19:42 [facility] [place] TYPE: Emergency COMPLAINT: - CHEST PAIN DIAGNOSES: - Allergy status to other drugs, medicaments and biological substances - Chest pain, unspecified - Heart failure, unspecified - Latex allergy status - intermediate designer (current) use of antithrombotics/antiplatelets - Multiple sclerosis - Obesity, unspecified - Personal history of nicotine dependence - Presence of right artificial hip joint 10/11/2022 16:41 [facility] [place] TYPE: Emergency COMPLAINT: - CONFUSION DIAGNOSES: - Allergy status to other drugs, medicaments and biological substances - Disorientation, unspecified - Heart failure, unspecified - long-term (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 - Multiple sclerosis - Obesity, unspecified - Other terminologist (current) drug therapy - Unspecified atrial fibrillation - Weakness 08/12[facility]2022 [facility] DIAGNOSES: - Weakness - Heart Palpitations - Shortness of Breath 08/12/2022 00:54 [facility] [place] TYPE: Emergency COMPLAINT: - WEAKNESS DIAGNOSES: - Body mass index [BMI] 29.0-29.9, adult - Heart failure, unspecified - long-term (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 - Obesity, unspecified - Personal history of nicotine dependence - Unspecified atrial fibrillation - Urinary tract infection, site not specified - Weakness 08/03/2022 13:[address] [facility] Karthik TYPE: Emergency DIAGNOSES: - Dizziness and giddiness - Multiple sclerosis - Vertigo (Recurrent) 06/10/2022 18:37 [facility] [place] TYPE: Emergency COMPLAINT: - CHEST PAIN, VOMITING, LOW FEVER, CHILLS DIAGNOSES: - Allergy status to other drugs, medicaments and biological substances - Heart failure, unspecified - Nausea with vomiting, unspecified - Obesity, unspecified - Other custodial (current) drug therapy - Personal history of nicotine dependence - Unspecified atrial fibrillation 05/31/2022 20:10 [facility] [place] TYPE: Emergency COMPLAINT: - WEAKNESS DIAGNOSES: - Allergy status to other drugs, medicaments and biological substances - Obesity, unspecified - Other custodial (current) drug therapy - Personal history of nicotine dependence - Unspecified atrial fibrillation - Urinary tract infection, site not specified - Weakness INPATIENT VISIT TRACKING (12 MO.) 10/24/2022 07:48 [facility] TYPE: Internal Medicine DIAGNOSES: - Acute on chronic combined systolic (congestive) and diastolic (congestive) heart failure - Atherosclerotic heart disease of [place] coronary artery without angina pectoris - Bradycardia, unspecified - Chronic kidney disease, stage 3a - Dependence on other enabling machines and devices - Dilated cardiomyopathy - Nonrheumatic aortic (valve) stenosis - Obstructive sleep apnea (adult) (pediatric) - Other cardiomyopathies - Paroxysmal atrial fibrillation - Presence of prosthetic heart valve 08/12/2022 16:44 [facility] DIAGNOSES: - Dilated cardiomyopathy - Dizziness and giddiness - Encounter for screening, unspecified - Multiple sclerosis - Restless legs syndrome - Weakness [email or web address]
[2023-03-12] MEDS ORDERED: CEFDINIR300 MG PO (06:09)
[2023-03-12 06:19] LABS: BASOPHILS 0.9 % (0-2); EOSINOPHILS 7.3 % (0-6); HEMATOCRIT 35.8 % (35.0-50.0); LYMPHOCYTES 19.4 % (24-44); MCHC 33.4 g/dl (30-36); MCV 95.7 fl (81-99); MONOCYTES 10.2 % (0-12); NEUTROPHILS 62.2 % (39-80); PLATELET COUNT 114 K/uL (140-440); RBC 3.74 M/ul (4.3-5.7); RDW 15.2 (10.5-15.0)
[2023-03-12 06:33] LABS: ALBUMIN 3.7 g/dL (3.4-5.0); ALBUMIN/GLOBULIN RATIO 1.23 (1.1-2.4); ANION GAP 10.5 (7-21); BILIRUBIN, TOTAL 0.8 ng/dL (0.2-1.0); BUN/CREATININE RATIO 18.62 (6.0-28.6); CALCIUM 8.8 mg/dL (8.5-10.1); CREATININE, SERUM 1.45 mg/dL (0.70-1.30); POTASSIUM 4.5 mmol/L (3.5-5.1); PROTEIN, TOTAL 6.7 g/dL (6.4-8.2)
[2023-03-12 06:59] LABS: BILIRUBIN, URINE NEGATIVE (negative); BLOOD/HGB, URINE LARGE (Negative); KETONE, URINE NEGATIVE (Negative); LEUK ESTERASE, URINE SMALL (negative); NITRITE, URINE POSITIVE (negative)
[2023-03-12 07:08] LABS: BACTERIA, URINE NONE SEEN /hpf (negative); EPITHELIAL CELLS, URINE 0 /lpf (0-1+); RED BLOOD CELLS, URINE >50 /hpf (0-5); REFLEX CULTURE, URINE Yes (No)
[2023-03-12 07:25] VITALS: BP 99/75
[2023-03-12 07:48] LABS: PARTIAL THROMBOPLASTIN TIME 41.1 Sec (22.9-41.3)
[2023-03-12 07:49] LABS: INR 1.98 (0.80-1.30); PROTIME 21.7 Sec (11.2-14.2)
== END 2023-03-12 07:28 | disposition home or self-care (01) ==
LOC: ED 05:35
PROVIDERS: Emergency Medicine
DX: R31.0 Gross hematuria (principal); N99.89 Other postprocedural complications and disorders of genitourinary system; N31.9 Neuromuscular dysfunction of bladder, unspecified; G35 Multiple sclerosis; I48.91 Unspecified atrial fibrillation; I50.9 Heart failure, unspecified; Z87.891 Personal history of nicotine dependence; Z88.8 Allergy status to other drugs, medicaments and biological substances; Z91.040 Latex allergy status; Z79.899 Other long term (current) drug therapy
CPT/HCPCS: 36415; 51702; 51798; 80053; 81001; 85025; 85610; 85730; 87088; 99283

== ENCOUNTER 2023-05-01 19:57 | Emergency (ER) | payer MEDICARE, OTHER ==
[~2023-05-01] VITALS: Ht 177.8 cm; Wt 99.8 kg
--- OUTSIDE RECORDS SUMMARY | 2023-05-01 20:01 | XMS ---
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 CARTER Security Certified Emergency Vehicle Technician Events No recent Security Events currently on file CRITERIA MET - 6 ED Visits in 6 Months - [facility] - 2 Visits in 30 Days CARE PROVIDERS Angi Nielsen Job Trainer/Holter Scanning Technician 03/27/2023-Current PHONE: [phone] LUCIO TAO Dentist: Event Promotions Coordinator 04/23/2019-Current PHONE: [phone] -[place]- Dentist: Event Promotions Coordinator [facility] PHONE: [phone] EVENS GARCIA [facility] Current PHONE: [phone] TIERRA CONRAD Internal Medicine Current PHONE: [phone] TIFFANY Glover MD, SPENCER Job Trainer/Holter Scanning Technician Current PHONE: [phone] MICHELLE SMALLS Family [facility] Current PHONE: Unknown ELEANOR GUAN Nurse Practitioner: Family Current PHONE: Unknown MARGARET CORDERO Internal Medicine Current PHONE: [phone] LESLEY URBAN I. Physician Pig Casting Machine Operator Current PHONE: Unknown PAGE KELLEY Nurse Practitioner Current PHONE: Unknown LEXA ONTIVEROS Internal Medicine Current PHONE: [phone] SCOUT GANT Nurse Practitioner Woody MUNIZ PHONE: [phone] SILVESTRE [facility] Current PHONE: Unknown [facility] Current PHONE: [phone] AARON COLON Nurse Practitioner Current PHONE: [phone] Branden has no Care Guidelines for this patient. Kuldeep VISIT COUNT (12 MO.) 13 [facility]IONI Garcia 1 [facility] TOTAL 15 NOTE: Visits indicate total known visits. ED/UCC VISIT TRACKING (12 MO.) 05/01/2023 19:58 [facility] [place] TYPE: Emergency COMPLAINT: - LOW BLOOD PRESSURE 04/28/2023 10:09 [facility] [place] TYPE: Emergency COMPLAINT: - LOW B/P, LIGHT HEADED, FATIGUE, WEAK, POSS UTI DIAGNOSES: - Allergy status to other drugs, medicaments and biological substances - Anemia, unspecified - Heart failure, unspecified - Latex allergy status - group home (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 - Obesity, unspecified - Other jail (current) drug therapy - Unspecified atrial fibrillation - Urinary tract infection, site not specified - Weakness 03/12/2023 05:35 [facility] [place] TYPE: Emergency COMPLAINT: - BLOOD IN URINE DIAGNOSES: - Allergy status to other drugs, medicaments and biological substances - Gross hematuria - Heart failure, unspecified - Latex allergy status - Multiple sclerosis - Neuromuscular dysfunction of bladder, unspecified - Other jail (current) drug therapy - Other postprocedural complications and disorders of genitourinary system - Personal history of nicotine dependence - Unspecified atrial fibrillation 2023 14:36 [facility] [place] TYPE: Emergency COMPLAINT: - FALL DIAGNOSES: - Allergy status to other drugs, medicaments and biological substances - Heart failure, unspecified - Hypoglycemia, unspecified - Latex allergy status - remote computer terminal operator (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 - Multiple sclerosis - Obesity, unspecified - Other intermediate card tender (current) drug therapy - Personal history of nicotine dependence - Syncope and collapse - Unspecified atrial fibrillation 01/23/2023 11:49 [facility] [place] TYPE: Emergency COMPLAINT: - LETHARGIC, WEIGHT GAIN OVERNIGHT, WEAK DIAGNOSES: - Allergy status to other drugs, medicaments and biological substances - Body mass index [BMI] 31.0-31.9, adult - Heart failure, unspecified - Latex allergy status - remote computer terminal operator (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 - Multiple sclerosis - Obesity, unspecified - Other intermediate card tender (current) drug therapy - Personal history of [...] Multiple sclerosis - Obesity, unspecified - Other jail (current) drug therapy - Personal history of [...] Multiple sclerosis - Obesity, unspecified - Other intermediate card tender (current) drug therapy - Personal history of [...] Multiple sclerosis - Obesity, unspecified - Other intermediate card tender (current) drug therapy - Personal history of nicotine dependence - Unspecified atrial fibrillation - Urinary tract infection, site not specified - Weakness 10/25/2022 19:42 [facility] [place] TYPE: Emergency COMPLAINT: - CHEST PAIN DIAGNOSES: - Allergy status to other drugs, medicaments and biological substances - Chest pain, unspecified - Heart failure, unspecified - Latex allergy status - remote computer terminal operator (current) use of antithrombotics/antiplatelets - Multiple sclerosis [...] Multiple sclerosis - Obesity, unspecified - Other intermediate card tender (current) drug therapy - Unspecified atrial fibrillation - Weakness [facility]12[facility]2022 16[facility] DIAGNOSES: - Weakness - Heart Palpitations - Shortness of Breath 08/12/2022 00:54 [facility] [place] TYPE: Emergency COMPLAINT: - WEAKNESS DIAGNOSES: - Body mass index [BMI] 29.0-29.9, adult - Heart failure, unspecified - remote computer terminal operator (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 - Obesity, unspecified - Personal history of nicotine dependence - Unspecified atrial fibrillation - Urinary tract infection, site not specified - Weakness 08/03/2022 13:28 [facility] DIAGNOSES: - Dizziness and giddiness - Multiple sclerosis - Vertigo (Recurrent) 06/10/2022 18:37 [facility] [place] TYPE: Emergency COMPLAINT: - CHEST PAIN, VOMITING, LOW FEVER, CHILLS DIAGNOSES: - Allergy status to other drugs, medicaments and biological substances - Heart failure, unspecified - Nausea with vomiting, unspecified - Obesity, unspecified - Other intermediate card tender (current) drug therapy - Personal history of nicotine dependence - Unspecified atrial fibrillation 05/31/2022 20:10 [facility] [place] TYPE: Emergency COMPLAINT: - WEAKNESS DIAGNOSES: - Allergy status to other drugs, medicaments and biological substances - Obesity, unspecified - Other jail (current) drug therapy - Personal history of nicotine dependence - Unspecified atrial fibrillation - Urinary tract infection, site not specified - Weakness INPATIENT VISIT TRACKING (12 MO.) 10/24/2022 07:48 [facility] TYPE: Internal Medicine DIAGNOSES: - Acute on chronic combined systolic (congestive) and diastolic (congestive) heart failure - Atherosclerotic heart disease of [place] coronary artery without angina pectoris - Bradycardia, unspecified - Chronic kidney disease, stage 3a - Dependence on other enabling machines and devices - Dilated cardiomyopathy - Nonrheumatic aortic (valve) stenosis - Obstructive sleep apnea (adult) (pediatric) - Other cardiomyopathies - Paroxysmal atrial fibrillation - Presence of prosthetic heart valve 08/12/2022 16:44 [facility] TYPE: Internal Medicine DIAGNOSES: - Dilated cardiomyopathy - Dizziness and giddiness - Encounter for screening, unspecified - Multiple sclerosis - Restless legs syndrome - Weakness [id number]
[2023-05-01] MEDS ORDERED: SODIUM CHLORIDE 0.9% 500 ML IV PRN (20:15)
[2023-05-01 20:29] LABS: BASOPHILS 0.6 % (0-2); EOSINOPHILS 4.3 % (0-6); HEMOGLOBIN 12.2 g/dL (12.0-18.0); LYMPHOCYTES 11.7 % (24-44); MCH 31.2 (27-36); MCHC 33.8 g/dl (30-36); MCV 92.1 fl (81-99); MONOCYTES 9.7 % (0-12); NEUTROPHILS 73.7 % (39-80); PLATELET COUNT 125 K/uL (140-440); RBC 3.91 M/ul (4.3-5.7); RDW 14.9 (10.5-15.0)
[2023-05-01 20:44] LABS: ALBUMIN 3.3 g/dL (3.4-5.0); ALBUMIN/GLOBULIN RATIO 0.94 (1.1-2.4); ANION GAP 13.5 (7-21); BILIRUBIN, TOTAL 0.8 ng/dL (0.2-1.0); BUN/CREATININE RATIO 27.81 (6.0-28.6); CREATININE, SERUM 1.69 mg/dL (0.70-1.30); MAGNESIUM 2.3 mg/dL (1.8-2.4); POTASSIUM 4.5 mmol/L (3.5-5.1); PROTEIN, TOTAL 6.8 g/dL (6.4-8.2)
[2023-05-01 21:31] VITALS: BP 104/657
== END 2023-05-01 21:31 | disposition home or self-care (01) ==
LOC: ED 19:57
PROVIDERS: Family Medicine
DX: E86.0 Dehydration (principal); G35 Multiple sclerosis; E66.9 Obesity, unspecified; I50.9 Heart failure, unspecified; Z87.891 Personal history of nicotine dependence; Z91.040 Latex allergy status; Z88.8 Allergy status to other drugs, medicaments and biological substances; Z79.02 Long term (current) use of antithrombotics/antiplatelets; Z79.899 Other long term (current) drug therapy; Z96.641 Presence of right artificial hip joint; Z95.2 Presence of prosthetic heart valve
CPT/HCPCS: 36415; 80053; 83735; 85025; 99284; J7040

== ENCOUNTER 2023-05-16 17:33 | Emergency (ER) | payer MEDICARE, OTHER ==
[~2023-05-16] VITALS: Ht 177.8 cm; Wt 101.6 kg
--- OUTSIDE RECORDS SUMMARY | 2023-05-16 17:36 | XMS ---
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 CARTER Security Emergency Medicine Physician Assistant Events No recent Security Events currently on file CRITERIA MET - 6 ED Visits in 6 Months - [facility] - [facility] - 2 Visits in 30 Days CARE PROVIDERS Angi Nielsen Dress Marker/Case Investigator 03/27/2023-Current PHONE: [phone] LUCIO TAO Dentist: Utility Division Project Manager 04/23/2019-Current PHONE: [phone] -Bell- Dentist: Utility Division Project Manager [facility] PHONE: [phone] EVENS GARCIA [facility] Current PHONE: [phone] TIERRA CONRAD Internal Medicine Current PHONE: [phone] TIFFANY Glover MD, SPENCER Dress Marker/Case Investigator Current PHONE: [phone] MICHELLE SMALLS Family Medicine Current PHONE: Unknown ELEANOR GUAN Nurse Practitioner: Family Current PHONE: Unknown MARGARET CORDERO Internal Medicine Current PHONE: [phone] LESLEY URBAN I. Physician Pre Sales Systems Engineer Current PHONE: Unknown PAGE KELLEY Nurse Practitioner Current PHONE: Unknown LEXA ONTIVEROS Internal Medicine Current PHONE: [phone] SCOUT GANT Nurse Practitioner Woody MUNIZ PHONE: [phone] SILVESTRE [facility] Current PHONE: Unknown KEATON JONELLENYU [facility] Current PHONE: [phone] AARON COLON Nurse Practitioner Current PHONE: [phone] Branden has no Care Guidelines for this patient. Kuldeep VISIT COUNT (12 MO.) 14 [facility] TOTAL 16 NOTE: Visits indicate total known visits. ED/UCC VISIT TRACKING (12 MO.) 05/16/2023 17:33 [place] [place] TYPE: Emergency COMPLAINT: - RT LEG SWELLING 05/01/2023 19:58 [facility] [place] TYPE: Emergency COMPLAINT: - LOW BLOOD PRESSURE DIAGNOSES: - Allergy status to other drugs, medicaments and biological substances - Dehydration - Heart failure, unspecified - Latex allergy status - remote computer terminal operator (current) use of antithrombotics/antiplatelets - Multiple sclerosis - Nonspecific low blood-pressure reading - Obesity, unspecified - Other senior living (current) drug therapy - Personal history of nicotine dependence - Presence of prosthetic heart valve - Presence of right artificial hip joint 04/28/2023 10:09 [facility] [place] TYPE: Emergency COMPLAINT: - LOW B/P, LIGHT HEADED, FATIGUE, WEAK, POSS UTI DIAGNOSES: - Allergy status to other drugs, medicaments and biological substances - Anemia, unspecified - Heart failure, unspecified - Latex allergy status - [facility] (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 - Obesity, unspecified - Other senior living (current) drug therapy - Unspecified atrial fibrillation - Urinary tract infection, site not specified - Weakness 03/12/2023 05:35 [facility] [place] TYPE: Emergency COMPLAINT: - BLOOD IN URINE DIAGNOSES: - Allergy status to other drugs, medicaments and biological substances - Gross hematuria - Heart failure, unspecified - Latex allergy status - Multiple sclerosis - Neuromuscular dysfunction of bladder, unspecified - Other senior living (current) drug therapy - Other postprocedural complications and disorders of genitourinary system - Personal history of nicotine dependence - Unspecified atrial fibrillation 2023 14:36 [facility] [place] TYPE: Emergency COMPLAINT: - FALL DIAGNOSES: - Allergy status to other drugs, medicaments and biological substances - Heart failure, unspecified - Hypoglycemia, unspecified - Latex allergy status - [facility] (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 - Multiple sclerosis - Obesity, unspecified - Other senior living (current) drug therapy - Personal history of [...] sclerosis - Obesity, unspecified - Other senior living (current) drug therapy - Personal history of [...] Multiple sclerosis - Obesity, unspecified - Other remote computer terminal operator (current) drug therapy - Personal history [...] sclerosis - Obesity, unspecified - Other senior living (current) drug therapy - Personal history of nicotine dependence - Unspecified atrial fibrillation - Weakness 11/20/2022 00:01 [place] [place] TYPE: Emergency COMPLAINT: - LOW HEART RATE DIAGNOSES: - Allergy status to other drugs, medicaments and biological substances - Body mass index [BMI] 29.0-29.9, adult - Heart failure, unspecified - Latex allergy status - [facility] (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 - Multiple sclerosis - Obesity, unspecified - Other remote computer terminal operator (current) drug therapy - Personal history [...] Disorientation, unspecified - Heart failure, unspecified - [facility] (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 - Multiple sclerosis - Obesity, unspecified - Other remote computer terminal operator (current) drug therapy - Unspecified atrial fibrillation - Weakness 08/12/2022 16:44 [facility] TYPE: Emergency DIAGNOSES: - Weakness [...] site not specified - Weakness 08/03/2022 13:28 [facility] [place] [place] TYPE: Emergency DIAGNOSES: - Dizziness and giddiness - Multiple sclerosis - Vertigo (Recurrent) 06/10/2022 18:37 [facility] [place] TYPE: Emergency COMPLAINT: - CHEST PAIN, VOMITING, LOW FEVER, CHILLS DIAGNOSES: - Allergy status to other drugs, medicaments and biological substances - Heart failure, unspecified - Nausea with vomiting, unspecified - Obesity, unspecified - Other remote computer terminal operator (current) drug therapy - Personal history of nicotine dependence - Unspecified atrial fibrillation 05/31/2022 20:10 [facility] [place] TYPE: Emergency COMPLAINT: - WEAKNESS DIAGNOSES: - Allergy status to other drugs, medicaments and biological substances - Obesity, unspecified - Other remote computer terminal operator (current) drug therapy - Personal history of nicotine dependence - Unspecified atrial fibrillation - Urinary tract infection, site not specified - Weakness INPATIENT VISIT TRACKING (12 MO.) 10/24/2022 07:48 [facility] TYPE: Internal Medicine DIAGNOSES: - Acute on chronic combined systolic (congestive) and diastolic (congestive) heart failure - Atherosclerotic heart disease of [place] coronary artery without angina pectoris - Bradycardia, unspecified - Chronic kidney disease, stage 3a - Dependence on other enabling machines and devices - Dilated cardiomyopathy - Nonrheumatic aortic (valve) stenosis - Obstructive sleep apnea (adult) (pediatric) - Other cardiomyopathies - Paroxysmal atrial fibrillation - Presence of prosthetic heart valve 08/12/2022 16:44 [facility] TYPE: Internal Medicine DIAGNOSES: - Dilated cardiomyopathy - Dizziness and giddiness - Encounter for screening, unspecified - Multiple sclerosis - Restless legs syndrome - Weakness [id number]
[2023-05-16 21:16] LABS: BASOPHILS 0.7 % (0-2); EOSINOPHILS 5.8 % (0-6); HEMATOCRIT 33.7 % (35.0-50.0); HEMOGLOBIN 11.4 g/dL (12.0-18.0); LYMPHOCYTES 18.6 % (24-44); MCH 30.9 (27-36); MCHC 33.8 g/dl (30-36); MCV 91.5 fl (81-99); MONOCYTES 9.5 % (0-12); NEUTROPHILS 65.4 % (39-80); PLATELET COUNT 104 K/uL (140-440); RBC 3.69 M/ul (4.3-5.7); RDW 15.4 (10.5-15.0)
[2023-05-16 21:46] LABS: INR 1.24 (0.80-1.30); PROTIME 14.8 Sec (11.2-14.2)
[2023-05-16 21:47] LABS: ALBUMIN 3.2 g/dL (3.4-5.0); ANION GAP 14.4 (7-21); BILIRUBIN, TOTAL 0.9 ng/dL (0.2-1.0); BUN/CREATININE RATIO 21.85 (6.0-28.6); CALCIUM 8.8 mg/dL (8.5-10.1); CREATININE, SERUM 1.51 mg/dL (0.70-1.30); MAGNESIUM 2.1 mg/dL (1.8-2.4); POTASSIUM 4.4 mmol/L (3.5-5.1); PROTEIN, TOTAL 6.4 g/dL (6.4-8.2)
[2023-05-16 22:57] VITALS: BP 108/81
== END 2023-05-16 22:50 | disposition home or self-care (01) ==
LOC: ED 17:33
PROVIDERS: Internal Medicine
DX: I50.9 Heart failure, unspecified (principal); G35 Multiple sclerosis; I48.91 Unspecified atrial fibrillation; E66.9 Obesity, unspecified; Z68.32 Body mass index [BMI] 32.0-32.9, adult; Z79.01 Long term (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; Z86.711 Personal history of pulmonary embolism; Z86.718 Personal history of other venous thrombosis and embolism; Z87.891 Personal history of nicotine dependence; Z88.8 Allergy status to other drugs, medicaments and biological substances; Z91.040 Latex allergy status; Z79.899 Other long term (current) drug therapy
CPT/HCPCS: 36415; 80053; 82553; 83735; 83880; 85025; 85379; 85610; 85730; 86140; 93971; 99284-25

== ENCOUNTER 2023-07-31 21:08 | Emergency (ER) | payer MEDICARE, OTHER ==
[~2023-07-31] VITALS: Ht 177.8 cm; Wt 96.0 kg
[~2023-07-31 21:08] MED LIST changes: +MACROBID 100 M100 MG PO; +MEMANTINE HCL5 MG PO; +METOLAZONE2.5 MG PO; +NITROFURANTOIN100 M1 PO
--- OUTSIDE RECORDS SUMMARY | 2023-07-31 21:12 | XMS ---
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 CARTER Security Meat Wrapper Events No recent Security Events currently on file CRITERIA MET - 6 ED Visits in 6 Months - [facility] - [facility] - 2 Visits in 30 Days CARE PROVIDERS Angi Nielsen Heel Pricker/Drivers' Cash Clerk 03/27/2023-Current PHONE: [phone] LUCIO ATO Dentist: Wan Support Specialist 04/23/2019-Current PHONE: [phone] -Bell- Dentist: Wan Support Specialist [facility] PHONE: [phone] EVENS GARCIA [facility] Current PHONE: [phone] TIERRA CONRAD Internal Medicine Current PHONE: [phone] TIFFANY Glover MD, SPENCER Heel Pricker/Drivers' Cash Clerk Current PHONE: [phone] MICHELLE SMALLS Family Medicine Current PHONE: Unknown ELEANOR GUAN Nurse Practitioner: Family Current PHONE: [phone] MARGARET CORDERO Internal Medicine Current PHONE: [phone] LESLEY URBAN I. Physician Fruit Press Operator Current PHONE: Unknown PAGE KELLEY Nurse Practitioner Current PHONE: Unknown LEXA ONTIVEROS Internal Medicine Current PHONE: [phone] SCOUT GANT Nurse Harry MUNIZ PHONE: [phone] SILVESTRE [facility] Current PHONE: Unknown KEATON [facility] Current PHONE: [phone] AARON COLON Nurse Practitioner Current PHONE: [phone] Branden has no Care Guidelines for this patient. Kuldeep VISIT COUNT (12 MO.) 18 [facility]I Garcia [facility]un Rondon [facility] TOTAL 20 NOTE: Visits indicate total known visits. ED/UCC VISIT TRACKING (12 MO.) 07/31/2023 21:09 [facility] [place] TYPE: Emergency COMPLAINT: - CATHETER PROBLEM 07/23/2023 09:30 [facility] [place] TYPE: Emergency COMPLAINT: - WEAKNESS DIAGNOSES: - Allergy status to other drugs, medicaments and biological substances - Heart failure, unspecified - Latex allergy status - Leakage of indwelling urethral catheter, initial encounter - computer terminal operator (current) use of antithrombotics/antiplatelets - Multiple sclerosis - Obesity, unspecified - Other shelter (current) drug therapy - Other medical procedures as the cause of abnormal reaction of the patient, or of later complication, without mention of misadventure at the time of the procedure - Personal history of nicotine dependence - Presence of right artificial hip joint - Weakness 06/29/2023 13:25 [facility] [place] TYPE: Emergency COMPLAINT: - LOW BLOOD PRESSURE DIAGNOSES: - Allergy status to other drugs, medicaments and biological substances - Body mass index [BMI] 31.0-31.9, adult - Dizziness and giddiness - Heart failure, unspecified - Hypotension, unspecified - Latex allergy status - computer terminal operator (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 - Obesity, unspecified - Other intermediate manager (current) drug therapy - Personal history of nicotine dependence - Personal history of urinary (tract) infections - Presence of urogenital implants - Unspecified atrial fibrillation 06/28/2023 20:34 [facility] [place] TYPE: Emergency COMPLAINT: - BLOOD PRESSURE PROBLEM DIAGNOSES: - Allergy status to other drugs, medicaments and biological substances - Latex allergy status - shelter (current) use of antithrombotics/antiplatelets - Nonspecific low blood-pressure reading - Other shelter (current) drug therapy - Personal history of nicotine dependence - Presence of prosthetic heart valve - Presence of right artificial hip joint - Urinary tract infection, site not specified 06/27/2023 10:34 [facility] [place] TYPE: Emergency COMPLAINT: - LOW B/P, FATIGUE, WEAK, NO BALANCE DIAGNOSES: - Allergy status to other drugs, medicaments and biological substances - Body mass index [BMI] 32.0-32.9, adult - Dehydration - Heart failure, unspecified - Latex allergy status - shelter (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 - Multiple sclerosis - Obesity, unspecified - Other shelter (current) drug therapy - Personal history of nicotine dependence - Presence of urogenital implants - Shortness of breath - Unspecified atrial fibrillation 06/21/2023 10:23 [facility] [place] TYPE: Emergency COMPLAINT: - CATHETER ISSUE DIAGNOSES: - Allergy status to other drugs, medicaments and biological substances - Body mass index [BMI] 32.0-32.9, adult - Encounter for fitting and adjustment of urinary device - Heart failure, unspecified - Latex allergy status - shelter (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 - Multiple sclerosis - Obesity, unspecified - Other shelter (current) drug therapy - Other specified soft tissue disorders - Pain in right lower leg - Personal history of nicotine dependence - Unspecified atrial fibrillation 05/16/2023 17:33 [facility] [place] TYPE: Emergency COMPLAINT: - RT LEG SWELLING/ NO INJ DIAGNOSES: - Allergy status to other drugs, medicaments and biological substances - Body mass index [BMI] 32.0-32.9, adult - Heart failure, unspecified - Latex allergy status - computer terminal operator (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 - Multiple sclerosis - Obesity, unspecified - Other shelter (current) drug therapy - Other specified soft tissue disorders - Pain in right lower leg - Personal history of nicotine dependence - Personal history of other venous thrombosis and embolism - Personal history of pulmonary embolism - Unspecified atrial fibrillation 05/01/2023 19:58 [facility] [place] TYPE: Emergency COMPLAINT: - LOW BLOOD PRESSURE DIAGNOSES: - Allergy status to other drugs, medicaments and biological substances - Dehydration - Heart failure, unspecified - Latex allergy status - computer terminal operator (current) use of antithrombotics/antiplatelets - Multiple sclerosis - Nonspecific low blood-pressure reading - Obesity, unspecified - Other shelter (current) drug therapy - Personal history of nicotine dependence - Presence of prosthetic heart valve - Presence of right artificial hip joint 04/28/2023 10:09 [facility] [place] TYPE: Emergency COMPLAINT: - LOW B/P, LIGHT HEADED, FATIGUE, WEAK, POSS UTI DIAGNOSES: - Allergy status to other drugs, medicaments and biological substances - Anemia, unspecified - Heart failure, unspecified - Latex allergy status - shelter (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 - Obesity, unspecified - Other intermediate manager (current) drug therapy - Unspecified atrial fibrillation - Urinary tract infection, site not specified - Weakness 03/12/2023 05:35 [facility] [place] TYPE: Emergency COMPLAINT: - BLOOD IN URINE DIAGNOSES: - Allergy status to other drugs, medicaments and biological substances - Gross hematuria - Heart failure, unspecified - Latex allergy status - Multiple sclerosis - Neuromuscular dysfunction of bladder, unspecified - Other intermediate manager (current) drug therapy - Other postprocedural complications and disorders of genitourinary system - Personal history of nicotine dependence - Unspecified atrial fibrillation 2023 14:36 [facility] [place] TYPE: Emergency COMPLAINT: - FALL DIAGNOSES: - Allergy status to other drugs, medicaments and biological substances - Heart failure, unspecified - Hypoglycemia, unspecified - Latex allergy status - shelter (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 - Multiple sclerosis - Obesity, unspecified - Other intermediate manager (current) drug therapy - Personal history of nicotine dependence - Syncope and collapse - Unspecified atrial fibrillation 01/23/2023 11:49 [facility] [place] TYPE: Emergency COMPLAINT: - LETHARGIC, WEIGHT GAIN OVERNIGHT, WEAK DIAGNOSES: - Allergy status to other drugs, medicaments and biological substances - Body mass index [BMI] 31.0-31.9, adult - Heart failure, unspecified - Latex allergy status - shelter (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 - Multiple sclerosis - Obesity, unspecified - Other shelter (current) drug therapy - Personal history of nicotine dependence - Unspecified atrial fibrillation - Weakness 01/14/2023 10:42 [facility] [place] TYPE: Emergency COMPLAINT: - WEAKNESS DIAGNOSES: - Allergy status to other drugs, medicaments and biological substances - Body mass index [BMI] 30.0-30.9, adult - Bronchitis, not specified as acute or chronic - Heart failure, unspecified - Latex allergy status - computer terminal operator (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 - Multiple sclerosis - Obesity, unspecified - Other intermediate manager (current) drug therapy - Personal history of [...] sclerosis - Obesity, unspecified - Other intermediate manager (current) drug therapy - Personal history of nicotine dependence - Unspecified atrial fibrillation - Weakness 11/20/2022 00:01 [facility] [place] TYPE: Emergency COMPLAINT: - LOW HEART RATE DIAGNOSES: - Allergy status to other drugs, medicaments and biological substances - Body mass index [BMI] 29.0-29.9, adult - Heart failure, unspecified - Latex allergy status - shelter (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 - Multiple sclerosis - Obesity, unspecified - Other intermediate manager (current) drug therapy - Personal history of nicotine dependence - Unspecified atrial fibrillation - Urinary tract infection, site not specified - Weakness 10/25/2022 19:42 [facility] [place] TYPE: Emergency COMPLAINT: - CHEST PAIN DIAGNOSES: - Allergy status to other drugs, medicaments and biological substances - Chest pain, unspecified - Heart failure, unspecified - Latex allergy status - computer terminal operator (current) use of antithrombotics/antiplatelets - Multiple sclerosis - Obesity, unspecified - Personal history of nicotine dependence - Presence of right artificial hip joint 10/11/2022 16:41 [facility] [place] TYPE: Emergency COMPLAINT: - CONFUSION DIAGNOSES: - Allergy status to other drugs, medicaments and biological substances - Disorientation, unspecified - Heart failure, unspecified - computer terminal operator (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 - Multiple sclerosis - Obesity, unspecified - Other shelter (current) drug therapy - Unspecified atrial fibrillation - Weakness 08/12/2022 16:44 [facility] M.CNatalie TYPE: Emergency DIAGNOSES: - Weakness - Heart Palpitations - Shortness of Breath 08/12/2022 00:[address] [facility] [place] TYPE: Emergency COMPLAINT: - WEAKNESS DIAGNOSES: - Body mass index [BMI] 29.0-29.9, adult - Heart failure, unspecified - shelter (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 - Obesity, unspecified - Personal history of nicotine dependence - Unspecified atrial fibrillation - Urinary tract infection, site not specified - Weakness 08/03/2022 13:[address] [facility] Karthik TYPE: Emergency DIAGNOSES: - Dizziness and giddiness - Multiple sclerosis - Vertigo (Recurrent) INPATIENT VISIT TRACKING (12 MO.) 10/24/2022 07:48 [facility] TYPE: Internal Medicine DIAGNOSES: - Acute on chronic combined systolic (congestive) and diastolic (congestive) heart failure - Atherosclerotic heart disease of [place] coronary artery without angina pectoris - Bradycardia, unspecified - Chronic kidney disease, stage 3a - Dependence on other enabling machines and devices - Dilated cardiomyopathy - Nonrheumatic aortic (valve) stenosis - Obstructive sleep apnea (adult) (pediatric) - Other cardiomyopathies - Paroxysmal atrial fibrillation - Presence of prosthetic heart valve 08/12/2022 16:44 [facility] TYPE: Internal Medicine DIAGNOSES: - Dilated cardiomyopathy - Dizziness and giddiness - Encounter for screening, unspecified - Multiple sclerosis - Restless legs syndrome - Weakness [id number]
[2023-07-31 23:52] LABS: BILIRUBIN, URINE NEGATIVE (negative); BLOOD/HGB, URINE MODERATE (Negative); KETONE, URINE NEGATIVE (Negative); LEUK ESTERASE, URINE MODERATE (negative); NITRITE, URINE NEGATIVE (negative)
[2023-07-31 23:59] LABS: BACTERIA, URINE 4+ /hpf (negative); CASTS, URINE NONE SEEN \\lpf; CRYSTALS, URINE NONE SEEN (0-1+); EPITHELIAL CELLS, URINE SQUAMOUS 1+ /lpf (0-1+); RED BLOOD CELLS, URINE 41-50 /hpf (0-5); REFLEX CULTURE, URINE Yes (No); WHITE BLOOD CELLS, URINE >50 /HPF (0-5)
[2023-08-01] MEDS ORDERED: NITROFURANTOIN MONOHYD MACROCR 100 MG HOME.PACK PO ONE (00:15)
[2023-08-01 00:32] VITALS: BP 120/75
== END 2023-08-01 00:33 | disposition home or self-care (01) ==
LOC: ED 21:08
PROVIDERS: Family Medicine
DX: T83.098A Other mechanical complication of other urinary catheter, initial encounter (principal); N39.0 Urinary tract infection, site not specified; G35 Multiple sclerosis; I48.91 Unspecified atrial fibrillation; I50.9 Heart failure, unspecified; E66.9 Obesity, unspecified; Z68.30 Body mass index [BMI] 30.0-30.9, adult; Z87.891 Personal history of nicotine dependence; Z88.8 Allergy status to other drugs, medicaments and biological substances; Z91.040 Latex allergy status; Z79.01 Long term (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; Z79.899 Other long term (current) drug therapy
CPT/HCPCS: 81001; 99283

== ENCOUNTER 2023-08-07 00:29 | Inpatient (IN) | payer MEDICARE, OTHER ==
--- NOTE | 2023-08-06 19:10 | NUR ---
SHIFT REPORT RECEIVED PER CHINEDU RN, PT ALERT AND PLEASANT, REMAINS UP IN CHAIR, CHAIR ALARM ON, ENCOURAGED PT TO CALL NURSE WHEN READY TO GO BACK TO BED, PLAN OF CARE DISCUSSED WITH PT.
[2023-08-07] VITALS (7 sets, daily range): BP systolic 102–128; BP diastolic 70–89
[~2023-08-07] VITALS: Ht 177.8 cm; Wt 106.7 kg
[~2023-08-07 00:29] MED LIST changes: -MEMANTINE HCL5 MG PO
--- OUTSIDE RECORDS SUMMARY | 2023-08-07 00:32 | XMS ---
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 CARTER Security Interventional Nurse Events No recent Security Events currently on file CRITERIA MET - 6 ED Visits in 6 Months - [facility] - [facility] - 2 Visits in 30 Days CARE PROVIDERS Angi Nielsen Drawing Press Operator/Sanitation Tank Washer 07/26/2023-Current PHONE: [phone] LUCIO TAO Dentist: Senior Clinical Consultant 04/23/2019-Current PHONE: [phone] -Bell- Dentist: Senior Clinical Consultant [facility] PHONE: [phone] EVENS GARCIA [facility] Current PHONE: [phone] TIERRA CONRAD Internal Medicine Current PHONE: [phone] TIFFANY Glover MD, SPENCER Drawing Press Operator/Sanitation Tank Washer Current PHONE: [phone] MICHELLE SMALLS Family Medicine Current PHONE: Unknown ELEANOR GUAN Nurse Practitioner: Family Current PHONE: [phone] MARGARET CORDERO Internal Medicine Current PHONE: [phone] LESLEY URBAN I. Physician Swatch Maker Current PHONE: Unknown PAGE KELLEY Nurse Practitioner Current PHONE: Unknown LEXA ONTIVEROS Internal Medicine Current PHONE: [phone] SCOUT GANT Nurse Harry MUNIZ PHONE: [phone] SILVESTRE [facility] Nursing [facility] Current PHONE: Unknown KEATON [facility] Current PHONE: [phone] AARON COLON Nurse Practitioner Current PHONE: [phone] Branden has no Care Guidelines for this patient. Kuldeep VISIT COUNT (12 MO.) 19 [facility] NOTE: Visits indicate total known visits. ED/UCC VISIT TRACKING (12 MO.) 08/07/2023 00:30 [facility] [place] TYPE: Emergency COMPLAINT: - MEDICAL CLEARANCE 07/31/2023 21:09 [facility] [place] TYPE: Emergency COMPLAINT: - CATHETER PROBLEM DIAGNOSES: - Allergy status to other drugs, medicaments and biological substances - Body mass index [BMI] 30.0-30.9, adult - Heart failure, unspecified - Latex allergy status - Leakage of indwelling urethral catheter, initial encounter - FDC (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 - Multiple sclerosis - Obesity, unspecified - Other terminal superintendent (current) drug therapy - Other mechanical complication of other urinary catheter, initial encounter - Pain due to genitourinary prosthetic devices, implants and grafts, initial encounter - Personal history of nicotine dependence - Unspecified atrial fibrillation - Urinary tract infection, site not specified 07/23/2023 09:30 [facility] [place] TYPE: Emergency COMPLAINT: - WEAKNESS DIAGNOSES: - Allergy status to other drugs, medicaments and biological substances - Heart failure, unspecified - Latex allergy status - Leakage of indwelling urethral catheter, initial encounter - FDC (current) use of antithrombotics/antiplatelets - Multiple sclerosis - Obesity, unspecified - Other group home (current) drug therapy - Other medical procedures [...] Hypotension, unspecified - Latex allergy status - joint terminal attack controller (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 - Obesity, unspecified - Other group home (current) drug therapy - Personal history of nicotine dependence - Personal history of urinary (tract) infections - Presence of urogenital implants - Unspecified atrial fibrillation 06/28/2023 20:34 [facility] TYPE: Emergency COMPLAINT: - BLOOD PRESSURE PROBLEM DIAGNOSES: - Allergy status to other drugs, medicaments and biological substances - Latex allergy status - joint terminal attack controller (current) use of antithrombotics/antiplatelets - Nonspecific low blood-pressure reading - Other terminal superintendent (current) drug therapy - Personal history of [...] failure, unspecified - Latex allergy status - joint terminal attack controller (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 - Multiple sclerosis - Obesity, unspecified - Other group home (current) drug therapy - Personal history of [...] failure, unspecified - Latex allergy status - FDC (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 - Multiple sclerosis - Obesity, unspecified - Other terminal superintendent (current) drug therapy - Other specified soft tissue disorders - Pain in right lower leg - Personal history of nicotine dependence - Unspecified atrial fibrillation 05/16/2023 17:33 [facility] [place] TYPE: Emergency COMPLAINT: - RT LEG SWELLING/ NO INJ DIAGNOSES: - Allergy status to other drugs, medicaments and biological substances - Body mass index [BMI] 32.0-32.9, adult - Heart failure, unspecified - Latex allergy status - joint terminal attack controller (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 - Multiple sclerosis - Obesity, unspecified - Other terminal superintendent (current) drug therapy - Other specified soft [...] failure, unspecified - Latex allergy status - FDC (current) use of antithrombotics/antiplatelets - Multiple sclerosis - Nonspecific low blood-pressure reading - Obesity, unspecified - Other group home (current) drug therapy - Personal history of nicotine dependence - Presence of prosthetic heart valve - Presence of right artificial hip joint 04/28/2023 10:09 [facility] [place] TYPE: Emergency COMPLAINT: - LOW B/P, LIGHT HEADED, FATIGUE, WEAK, POSS UTI DIAGNOSES: - Allergy status to other drugs, medicaments and biological substances - Anemia, unspecified - Heart failure, unspecified - Latex allergy status - FDC (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 - Obesity, unspecified - Other group home (current) drug therapy - Unspecified atrial fibrillation - Urinary tract infection, site not specified - Weakness 03/12/2023 05:35 [facility] [place] TYPE: Emergency COMPLAINT: - BLOOD IN URINE DIAGNOSES: - Allergy status to other drugs, medicaments and biological substances - Gross hematuria - Heart failure, unspecified - Latex allergy status - Multiple sclerosis - Neuromuscular dysfunction of bladder, unspecified - Other terminal superintendent (current) drug therapy - Other postprocedural complications and disorders of genitourinary system - Personal history of nicotine dependence - Unspecified atrial fibrillation 2023 14:36 [facility] [place] TYPE: Emergency COMPLAINT: - FALL DIAGNOSES: - Allergy status to other drugs, medicaments and biological substances - Heart failure, unspecified - Hypoglycemia, unspecified - Latex allergy status - joint terminal attack controller (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 - Multiple sclerosis - Obesity, unspecified - Other group home (current) drug therapy - Personal history of nicotine dependence - Syncope and collapse - Unspecified atrial fibrillation 01/23/2023 11:49 [facility] [place] TYPE: Emergency COMPLAINT: - LETHARGIC, WEIGHT GAIN OVERNIGHT, WEAK DIAGNOSES: - Allergy status to other drugs, medicaments and biological substances - Body mass index [BMI] 31.0-31.9, adult - Heart failure, unspecified - Latex allergy status - joint terminal attack controller (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 - Multiple sclerosis - Obesity, unspecified - Other terminal superintendent (current) drug therapy - Personal history of nicotine dependence - Unspecified atrial fibrillation - Weakness 01/14/2023 10:42 [facility] [place] TYPE: Emergency COMPLAINT: - WEAKNESS DIAGNOSES: - Allergy status to other drugs, medicaments and biological substances - Body mass index [BMI] 30.0-30.9, adult - Bronchitis, not specified as acute or chronic - Heart failure, unspecified - Latex allergy status - FDC (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 - Multiple sclerosis - Obesity, unspecified - Other group home (current) drug therapy - Personal history of [...] sclerosis - Obesity, unspecified - Other terminal superintendent (current) drug therapy - Personal history of nicotine dependence - Unspecified atrial fibrillation - Weakness 11/20/2022 00:01 [facility] [place] TYPE: Emergency COMPLAINT: - LOW HEART RATE DIAGNOSES: - Allergy status to other drugs, medicaments and biological substances - Body mass index [BMI] 29.0-29.9, adult - Heart failure, unspecified - Latex allergy status - FDC (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 - Multiple sclerosis - Obesity, unspecified - Other group home (current) drug therapy - Personal history of nicotine dependence - Unspecified atrial fibrillation - Urinary tract infection, site not specified - Weakness 10/25/2022 19:42 [facility] [place] TYPE: Emergency COMPLAINT: - CHEST PAIN DIAGNOSES: - Allergy status to other drugs, medicaments and biological substances - Chest pain, unspecified - Heart failure, unspecified - Latex allergy status - joint terminal attack controller (current) use of antithrombotics/antiplatelets - Multiple sclerosis - Obesity, unspecified - Personal history of nicotine dependence - Presence of right artificial hip joint 10/11/2022 16:41 [facility] [place] TYPE: Emergency COMPLAINT: - CONFUSION DIAGNOSES: - Allergy status to other drugs, medicaments and biological substances - Disorientation, unspecified - Heart failure, unspecified - joint terminal attack controller (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 - Multiple sclerosis - Obesity, unspecified - Other group home (current) drug therapy - Unspecified atrial fibrillation - Weakness 08/12/2022 16:44 [facility] TYPE: Emergency DIAGNOSES: - Weakness - Heart Palpitations - Shortness of Breath 08/12/2022 00:54 [facility] [place] TYPE: Emergency COMPLAINT: - WEAKNESS DIAGNOSES: - Body mass index [BMI] 29.0-29.9, adult - Heart failure, unspecified - FDC (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 - Obesity, unspecified - Personal history of nicotine dependence - Unspecified atrial fibrillation - Urinary tract infection, site not specified - Weakness INPATIENT VISIT TRACKING (12 MO.) 10/24/2022 07:48 [facility] TYPE: Internal Medicine DIAGNOSES: - Acute on chronic combined systolic (congestive) and diastolic (congestive) heart failure - Atherosclerotic heart disease of [place] coronary artery without angina pectoris - Bradycardia, unspecified - Chronic kidney disease, stage 3a - Dependence on other enabling machines and devices - Dilated cardiomyopathy - Nonrheumatic aortic (valve) stenosis - Obstructive sleep apnea (adult) (pediatric) - Other cardiomyopathies - Paroxysmal atrial fibrillation - Presence of prosthetic heart valve 08/12/2022 16:44 [facility] TYPE: Internal Medicine DIAGNOSES: - Dilated cardiomyopathy - Dizziness and giddiness - Encounter for screening, unspecified - Multiple sclerosis - Restless legs syndrome - Weakness [id number]
[2023-08-07] MEDS ORDERED: CEFTRIAXONE/SODIUM CHLORIDE 2 GM/100 ML PIGGYBACK IV ONE (00:45)
[2023-08-07 01:04] LABS: BASOPHILS 1.1 % (0-2); EOSINOPHILS 4.9 % (0-6); HEMATOCRIT 31.6 % (35.0-50.0); HEMOGLOBIN 10.6 g/dL (12.0-18.0); LYMPHOCYTES 13.9 % (24-44); MCH 30.2 (27-36); MCHC 33.4 g/dl (30-36); MCV 90.3 fl (81-99); MONOCYTES 10.5 % (0-12); NEUTROPHILS 69.6 % (39-80); PLATELET COUNT 133 K/uL (140-440); RDW 16.8 (10.5-15.0)
[2023-08-07 01:26] LABS: ALBUMIN 3.3 g/dL (3.4-5.0); ALBUMIN/GLOBULIN RATIO 1.14 (1.1-2.4); ANION GAP 10.1 (7-21); BILIRUBIN, TOTAL 0.6 ng/dL (0.2-1.0); BUN/CREATININE RATIO 16.75 (6.0-28.6); CREATININE, SERUM 1.85 mg/dL (0.70-1.30); POTASSIUM 4.1 mmol/L (3.5-5.1); PROTEIN, TOTAL 6.2 g/dL (6.4-8.2)
[2023-08-07 01:38] LABS: INFLUENZA B NAA NEGATIVE (NEGATIVE); RESPIRATORY SYNCYTIAL VIR NAA NEGATIVE (NEGATIVE)
[2023-08-07 02:07] LABS: BILIRUBIN, URINE NEGATIVE (negative); BLOOD/HGB, URINE LARGE (Negative); KETONE, URINE TRACE (Negative); LEUK ESTERASE, URINE LARGE (negative); NITRITE, URINE POSITIVE (negative)
[2023-08-07 02:28] LABS: BACTERIA, URINE 4+ /hpf (negative); CASTS, URINE NONE SEEN \\lpf; COLLECTION TYPE, URINE CLEAN CATCH; CRYSTALS, URINE NONE SEEN (0-1+); EPITHELIAL CELLS, URINE NS /lpf (0-1+); REFLEX CULTURE, URINE Yes (No); WHITE BLOOD CELLS, URINE >50 /HPF (0-5)
[2023-08-07] MEDS ORDERED: FOLIC ACID 1 MG/0.2 ML ML ONE (04:08)
[2023-08-07] MEDS ORDERED: MULTIVITAMINS 10 ML,FOLIC ACID 1 MG,THIAMINE HCL 100 MG in SODIUM CHLORIDE 0.9% 1,000 ML IV ONE (04:15)
[2023-08-07] MEDS ORDERED: ACETAMINOPHEN 325 MG TAB PO PRN (08:30)
[2023-08-07] MEDS ORDERED: LACTATED RINGER'S 1,000 ML IV SCH (08:30)
[2023-08-07] MEDS ORDERED: ondansetron HCL 4 MG/2 ML VIAL IV PRN (08:30)
--- NOTE | 2023-08-07 09:32 | NUR ---
Pt arrived to room at about 0932 hours, transferred via ER stretcher by RODNEY Brooks. Pt was able to transfer to bed using scoot method, unassisted. Pt denies SOB, no chest pain, no pain anywhere then later states that he does, at times, have some "muscle pain" in his upper abdomen. 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 He states he had a cheese omelet here for breakfast and now "it's stuck". He is not choking, but he can feel "the lump" stuck in his esophagus. He states that eventually it will go down. Pt came to the floor with two IV sites, RAC field start (18g)that flushes well with good return, and a LAC ED start (20g) that flushes well with good return; however this site is leaking blood. Dressing changed, and site secured, but the leaking continued. This IV was d/c'd. Will redress the Field start shortly and, for now, LR running at 125 per emar in the RAC at this time. No swelling, leaking, redness noted. Skin assessment revealed a few scabs to the left liang. Pt reports dizziness upon standing. Home medications reviewed and updated in chart, they are in a zip lock bag in pt's room. Pt's daughter called during assessment and reports that the pt refuses to sleep with his legs elevated at night, and that he refuses to change out his leg bag at night for a hanging bag to help reduce risk of infection. She also complains that he doesn't eat well nor does he drink enough water, which she believes is contributing to his UTI's. She states that this is the second recent UTI. Oriented pt to room and call light. Side rails up x3, call light in reach. Pt up to chair.
--- NOTE | 2023-08-07 11:00 | NUR ---
PHYSICAL THERAPY AND OCCUPATIONAL THERAPY IN WITH PT FOR ASSESSMENT. THEY ASSISTED PT UP TO CHAIR. PT C/O INCREASED DIZZINESS THROUGHOUT. ORTHOSTATIC BP MONITORED AND WAS WNL. BLE ELEVATED. PT'S SKIN INTACT ASIDE FROM THE SCABS ON HIS LEFT HESS. CALL LIGHT IN REACH.
--- NOTE | 2023-08-07 11:17 | NUR ---
ACCOUNT INSTALLATION SPECIALIST ENTERED PT ROOM FOR ROUNDING. PT WAS SITTING UP IN HIS RECLINER WATCHING TV. PT REPORTS NO PAIN OR COMPLAINTS. CALL LIGHT IS WIHTIN REACH
--- NOTE | 2023-08-07 11:19 | NUR ---
UR CLINICAL REVIEW: 2 MN FOR [facility] OBS 08/07/23 @ 0829 ORDERS MATCH NO AUTH NEEDED DISCHARGE TO HOME WITH CAREGIVER
[2023-08-07] MEDS ORDERED: OMEPRAZOLE20 MG PO (11:22)
[2023-08-07] MEDS ORDERED: LATANOPROST2.5 ML OU (11:24)
[2023-08-07] MEDS ORDERED: TRIAMCINOLONE A15 GM TOP (11:25)
[2023-08-07] MEDS ORDERED: AMPYRA10 MG PO (11:28)
--- NOTE | 2023-08-07 11:30 | NUR ---
Spoke with Mian. He resides downstairs and his daughter is upstairs with her kids. She is a state paid cg. Pt states he has MS and the last year has been difficult with a rapid decline. He is now mostly using a wc. He does state he still drives. Daughter assists him with meds, cooks, shops, cleans. She also drives pt when needed. Pt states he was going to the [facility] for PT, but recently changed and will be going to [facility] OP PT. Pt has an indwelling chapa catheter and it is changed monthly through OP. He denies needs. Would like to have his cg hours increased. I will contact his CM at [facility]. He cannot remember who this is and he will call his daughter. Pt plans on dc to home when cleared medically.
[2023-08-07] MEDS ORDERED: FLUOXETINE HCL20 MG PO (11:31)
[2023-08-07] MEDS ORDERED: CEFEPIME HCL/D5W 2 GM/100 ML PIGGYBACK IV SCH (11:44)
[2023-08-07] MEDS ORDERED: Rivaroxaban 10 MG TAB PO SCH (11:45)
[2023-08-07] MEDS ORDERED: carvediloL 3.125 MG TAB PO SCH (11:45)
[2023-08-07] MEDS ORDERED: PHARMACY RENAL DOSE ADJUSTMENT 1 DOSE MISC PO SCH (12:00)
--- NOTE | 2023-08-07 13:18 | NUR ---
ADVISED BY DONA STEWART, THAT PT'S BP WHILE SEATED IN CHAIR IS 102/74 AND INITIALLY HIS SPO2 WAS IN THE 80S, BUT THEN IT NORMALIZED. PT'S HANDS TURN PURPLE WHEN COOL AND THEY HAVE BEEN COOL WHILE ON THE UNIT. SHE ALSO STATES THAT PT REMOVED HIS PRESSURE BANDAGE TO THE LAC (IV D/C'D FROM THAT SITE D/T LEAKING) AND WHEN SHE APPLIED THE BP CUFF AND IT INFLATED, THE SITE BEGAN TO BLEED AGAIN, SO SHE REAPPLIED A PRESSURE BANDAGE. THE PT IS ON BLOOD THINNERS.
--- NOTE | 2023-08-07 14:19 | NUR ---
ATTEMPTED TO VISIT DURING SPIRITUAL CARE ROUNDS. NURSING STAFF IN ROOM. DID NOT INTERRUPT. PROVIDED PRAYER.
[2023-08-07] MEDS ORDERED: MEMANTINE HCL5 MG PO (15:37)
--- NOTE | 2023-08-07 15:41 | NUR ---
medications reconciled using pharmacy records and caregiver (daughter Vesna) phone interview
--- NOTE | 2023-08-07 16:03 | NUR ---
Pt is sitting in chair, BLE elevated, watching television. IV Cefepime running. Pt requested a cup of coffee, which was provided for him. Pt denies needs further at this time. Pt asked if the reason the alarm goes off on his chair is so we'll know when he's getting up. Reinforced education on the need for calling for help before exiting his chair to toilet and why. Pt verbalized understanding. Call light in reach.
--- NOTE | 2023-08-07 17:13 | NUR ---
PT USES CALL LIGHT. PT IN RECLINER, IV FROM RAC IS OUT AND SITE IS BLEEDING. PT INADVERTANTLY PULLED IV OUT. SITE CLEANSED AND PRESSURE HELD UNTIL BLEEDING STOPS. GAUZE AND COBAN DRESSING APPLIED TO SITE. NEW IV ESTABLISHED IN LEFT WRIST X1, 22G. PT TOLERATED WELL.
--- NOTE | 2023-08-07 18:23 | NUR ---
Pt arrived to the unit at about 0930 this shift and has been up in the chair for most of this shift. There is a chair alarm on his chair because he has tried to get up to toilet without using the call light. It has been explained to him why it is important to use the call light for assistance d/t his dizziness. He is strict I&O and the pt has requested cups of coffee (2) and had his water cup filled x1. His catheter has not been changed yet but needs to be changed before the morning. IV cefepime has been administered x1 and a hanging drainage bag replaced his leg bag from home. Pt started with two IV sites, one in each AC, however, they were both D/C'd (one was leaking, and the second was inadvertently pulled out) and a new one started. Pt transfers well with SBA with FWW, line and tube management. Urine emptied from his leg bag was dark, contained blood clots and had a foul odor. Pt was oriented to room and understands to use the call light. His daughter has been in to visit this afternoon.
--- NOTE | 2023-08-07 18:55 | NUR ---
RESPOND TO PT C/O PAIN AND LEAKING IN THE LEFT WRIST IV SITE. BLOOD NOTED AROUND IV SITE WHERE THE CATHETER ENTERS THE SKIN. LOCATED ANOTHER SITE ON THE RIGHT FOREARM. 20G IV INSERTED AFTER SKIN CLEANSED WITH CHLORAPREP, WINDOW DRESSING APPLIED, GOOD BLOOD RETURN, IV FLUSHED WITH 10ML NS AND LR AT 125/HR RESTARTED IN THE NEW SITE. PT HAS NO C/O AT THIS TIME, DENIES FURTHER NEEDS.
--- NOTE | 2023-08-07 19:10 | NUR ---
SHIFT REPORT RECEIVED FROM CHINEDU STEVENS, PT ALERT AND WITHOUT COMPLAINTS, PLAN OF CARE DISCUSSED CONCERNING NEED TO REPLACE TAL ZHONG AGREES TO THIS.
--- NOTE | 2023-08-07 19:20 | NUR ---
BEDSIDE REPORT RECEIVED PER IVAN RN, PT ALERT AND ORIENTENED, PT DENIES NEEDS AT THIS TIME.
--- NOTE | 2023-08-07 20:06 | NUR ---
IV PUMP ALARMING, TUBING BACKPRIMED. IVF INFUSING WNL. pt UP IN CHAIR WITH LEGS ELEVATED. DENIES NEEDS. CALL LIGHT IN REACH. CHAIR ALARM ON.
--- NOTE | 2023-08-07 20:20 | NUR ---
CALL LIGHT ANSWERED. IV PUMP ALARMING, PUMP BACKPRIMED. IV SITE ASSESSED, INFUSING WNL. EDUCATION PROVIDED. pt WATCHING TV. CALL LIGHT IN REACH.
[2023-08-07] MEDS ORDERED: ROPINIROLE HCL 1 MG TAB PO SCH (21:00)
[2023-08-07] MEDS ORDERED: GABAPENTIN 300 MG CAP PO SCH (21:00)
[2023-08-07] MEDS ORDERED: carvediloL 6.25 MG TAB PO SCH (21:00)
[2023-08-07] MEDS ORDERED: LIDOCAINE 2% VISCOUS 6 ML SYR TOP ONE (22:15)
--- NOTE | 2023-08-07 22:24 | NUR ---
ASSISTED PT FROM CHAIR BACK TO BED. PT USED FWW AND ABULATED WELL. ESTATE PLANNING DIRECTOR WAS A MODERATE ASSIST PT WAS A LITTLE UNSTEADY
--- NOTE | 2023-08-07 22:40 | NUR ---
PT AWAKE AND ALERT, ASSESSMENT COMPLETED, VS DONE PER PAT CARCAMO, REVIEWED AND NOTED TO BE STABLE, RT MEDS GIVEN PER ORDER, PT REQUEST MELATONIN AND STATES HE NORMALLY TAKES 3MG AT HS, WILL REQUEST ORDER FROM MD. DISCUSSED NEED TO REPLACE ZHONG, PT VOICES UNDERSTANDING, HIS CATH FROM HOME D'PHIL, 16F ZHONG PLACED AFTER PERIAREA CLEANSED, LIDOCAINE GEL USED FOR PROCEDURE, PT TOLERATED WELL, ZHONG DRAINING CLEAR YELLOW URINE. PT WATCHING TV, CALL LIGHT IN REACH, PT DENIES OTHER NEEDS.
--- NOTE | 2023-08-07 22:42 | EKG ---
[facility] [address] [place] [address] Signed Atrial fibrillation Low voltage QRS Cannot rule out Anterior infarct , age undetermined Abnormal ECG When compared with ECG of 23-JUL-2023 10:50, Nonspecific T wave abnormality no longer evident in Lateral leads Confirmed by Alexa Gallardo MD () on 08/07/2023 10:43:02 PM Electronically Signed By: ALEXA GALLARDO MD 08/07/23 2242 PATIENT NAME: DEBBI CARTER Electrocardiogram DATE OF : 54 PHYSICIAN: ALEXA GALLARDO MD REPORT #: [id number] REPORT IS CONFIDENTIAL AND NOT TO BE RELEASED WITHOUT AUTHORIZATION
[2023-08-07] MEDS ORDERED: MELATONIN 3 MG TAB PO SCH (22:48)
--- NOTE | 2023-08-07 22:56 | NUR ---
TC TO DR GALLARDO, REQUESTED MELATONIN PER PT REQUESTS, PT MEDICATED WITH MELATONIN 3MG PER ORDER. PT RESTING WITHOUT COMPLAINTS AT THIS TIME.
[2023-08-08] VITALS (7 sets, daily range): BP systolic 100–127; BP diastolic 15–92
--- NOTE | 2023-08-08 00:03 | NUR ---
PT AWAKE AND WATCHING TV, NEW BAG OF LR HUNG AND INFUSING WELL, RATE DOWN TO 100ML/HR WHEN ANTIBODIC INFUSING AT 25ML/HR. PT WITHOUT REQUESTS.
--- NOTE | 2023-08-08 01:55 | NUR ---
PT ASLEEP, LAYING ON RIGHT SIDE, RESP EVEN AND REG, IVF INFUSING WELL.
--- NOTE | 2023-08-08 04:00 | NUR ---
PT APPEARS TO SLEEP, RESP EVEN AND REG, LAYING ON SIDE,IVF INFUSING WELL.
[2023-08-08 05:33] LABS: BASOPHILS 0.8 % (0-2); EOSINOPHILS 6.3 % (0-6); HEMATOCRIT 30.5 % (35.0-50.0); HEMOGLOBIN 10.2 g/dL (12.0-18.0); LYMPHOCYTES 21.7 % (24-44); MCH 30.1 (27-36); MCHC 33.3 g/dl (30-36); MCV 90.2 fl (81-99); NEUTROPHILS 60.2 % (39-80); PLATELET COUNT 116 K/uL (140-440); RBC 3.38 M/ul (4.3-5.7); RDW 16.9 (10.5-15.0)
[2023-08-08 05:47] LABS: ALBUMIN 2.9 g/dL (3.4-5.0); ALBUMIN/GLOBULIN RATIO 1.04 (1.1-2.4); ANION GAP 8.5 (7-21); BILIRUBIN, TOTAL 0.5 ng/dL (0.2-1.0); BUN/CREATININE RATIO 16.91 (6.0-28.6); CALCIUM 8.2 mg/dL (8.5-10.1); CREATININE, SERUM 1.36 mg/dL (0.70-1.30); POTASSIUM 4.5 mmol/L (3.5-5.1); PROTEIN, TOTAL 5.7 g/dL (6.4-8.2)
--- NOTE | 2023-08-08 06:15 | NUR ---
PT CALLED, REQUESTING ASSISTANCE, RN TO ROOM, PT NOTED SITTING ON SIDE OF BED, PT STATES HE IS FEELING DIZZY WITH DOUBLE VISION, VS DONE, DENIES PAIN, PT ABLE TO FOLLOW DIRECTION, SAYING HE IS NOT SURE WHAT DAY IT IS, BUT DOES KNOW THAT HE IS AT THE HOSP, GENERALIZED WEAKNESS CONTINUES, PT SPEECH CLEAR, STANDING WT DONE QUICKLY, THEN PT BACK TO BED TO SUPINE POSITION, BS CLEAR BUT DIM THOUGHOUT, FINGERS COLD, DIFFICULT TO OBTAIN O2 SAT, OXYGEN PLACED ON AT 2L/MIN, WARM BLANKETS GIVEN, CPOX APPLIED, FINGERS WARM, CPOX BEGINING TO NETWORK SYSTEMS ANALYST, SATS UP 92-94%, OXYGEN TURNED DOWN TO 1L/NC, CHARGE NURSE TO ROOM TO HELP ASSESS PT, PT WONDERS IF HIS UTI IS CAUSING SOME DIZZINESS AND DOUBLE VISION, PLAN TO LET PT REST AND CONTINUE TO MONITOR.
--- NOTE | 2023-08-08 07:38 | NUR ---
Patient resting in bed, eyes closed, respirations even and non labored. Patient has no notable distress. Pt's sp02 is 98% at this time. Call light within reach of pt.
--- NOTE | 2023-08-08 08:19 | NUR ---
Board has been updated and call light has been placed within reach
[2023-08-08] MEDS ORDERED: ENOXAPARIN SODIUM 40 MG/0.4 ML SYR SUB-Q SCH (09:00)
[2023-08-08] MEDS ORDERED: Rivaroxaban 10 MG TAB PO SCH ×3 (09:00→17:00)
--- NOTE | 2023-08-08 10:31 | NUR ---
PER NURSING STAFF PT CONFUSED. DID NOT ATTEMPT VISIT DURING SPIRITUAL CARE ROUNDS. PROVIDED PRAYER.
[2023-08-08] MEDS ORDERED: ATORVASTATIN 40 MG TAB PO SCH (10:43)
[2023-08-08] MEDS ORDERED: MEMANTINE HCL 5 MG TAB PO SCH (10:44)
[2023-08-08] MEDS ORDERED: FLUOXETINE HCL 20 MG CAP PO SCH (10:44)
[2023-08-08] MEDS ORDERED: PANTOPRAZOLE SODIUM 40 MG TABEC PO SCH (10:45)
[2023-08-08] MEDS ORDERED: oxyBUTYnin chloride 5 MG TAB PO SCH (10:45)
--- NOTE | 2023-08-08 11:00 | NUR ---
Spoke with Mian. He states he is seeing and hearing things today. States he thought someone was standing at his bedside and he was attempting to shake their hand. He then realized no one was there. He has told her nurse and she has told the Dr. I let him know I spoke with PETR. He needs to call [facility]i [facility] to get a new eval for increased hours. He states Angi called him this morning and will be here to see him today. He denies any further needs and cont. to plan for dc to home when cleared medically.
--- NOTE | 2023-08-08 11:00 | NUR ---
Home medications started at this time per provider order. Patient reports he has been having hallucinations this morning, pt reports they started yesterday. Provider aware, ordered CT in place.
--- NOTE | 2023-08-08 12:10 | NUR ---
Patient left medical floor for CT scan.
--- NOTE | 2023-08-08 15:21 | NUR ---
UR CLINICAL REVIEW: 2 MN FOR [facility] INPATIENT 08/07/23 @ 1043 NO PA REQUIRED DISCHARGE TO HOME WHEN STABLE
--- NOTE | 2023-08-08 15:21 | NUR ---
SURAJB from Dr. Castillo to start home dose of Empyra tonight and home dose of entresto starting tomorrow moring. Pharmacy to review home bottles.
--- NOTE | 2023-08-08 16:45 | NUR ---
Tylenol 650mg po admin per patient request for back pain. Patient remains on 1.5L oxygen per nc, sp02 96%. Patient has no acute distress at this time. IV remains patent, fluids infusing per provider order.
--- NOTE | 2023-08-08 19:30 | NUR ---
REPORT RECEIVED FROM DAY RN. PATIENT RESTING IN BED. GIVEN ICE WATER. NO FURTHER NEEDS AT THIS TIME. CALL LIGHT WITHIN REACH.
--- NOTE | 2023-08-08 20:30 | NUR ---
PATIENT RESTING IN BED. RT IN TO BLEED OXYGEN INTO CPAP 2L/MIN. PATIENT LUNGS CTA, VSS, BOWEL TONES ACTIVE X 4 QUADRANTS. ALERT AND ORIENTED TO PERSON PLACE, TIME. NO REPORT OF HALLUCINATIONS AT THIS TIME. IV SITE INFLITRATED. CURRENT IV IN RFA D/C'D. NEW IV PLACED IN LFA. PATIENT TOLLERATED WELL. DENIES ANY PAIN AND DISCOMFORT AT THIS TIME. NO FURTHER NEEDS AT THIS TIME. CALL IGHT WITHIN REACH.
[2023-08-08] MEDS ORDERED: DALFAMPRIDINE 10 MG TAB.ER.12H PO SCH (21:00)
--- NOTE | 2023-08-08 22:15 | NUR ---
PATIENT RESTING IN BED. CPAP ON AND FUNCTIONING. CPOX WITH NORMAL READINGS. IV SITE PATENT AND INFUSING WITH NO ISSUES OR CONCERNS. PATIENT DENIES ANY NEEDS AT THIS TIME. CALL LIGHT WITHIN REACH.
--- NOTE | 2023-08-08 23:10 | NUR ---
CPOX ALARMING. PATIENT CPAP NO ON. ASSISTED PATIENT WITH PUTTING CPAP BACK IN PLACE. READINGS ON CPOX WNL. NO FURTHER NEEDS. CALL LIGHT WITHIN REACH.
[2023-08-09] VITALS (7 sets, daily range): BP systolic 118–137; BP diastolic 72–99
--- NOTE | 2023-08-09 00:36 | NUR ---
PATIENT RESTING IN BED WITH CPAP ON. CPOX READINGS WNL. RESPIRATIONS EVEN AND UNLABORED. CALL LIGHT WITHIN REACH.
--- NOTE | 2023-08-09 02:20 | NUR ---
PATIENT RESTING IN BED WITH EYES CLOSED. RESPIRATIONS EVEN AND UNLABORED. CPOX IN PLACE READINGS WNL. 2 L/MIN O2 BLEED INTO CPAP. CALL LIGHT WITHIN REACH.
--- NOTE | 2023-08-09 03:22 | NUR ---
CPOX ALARMING. PT. WITHOUT CPAP ON. CPAP BACK ON. SAO2 RECOVERED QUICKLY. NOW READING WNL. CALL LIGHT WITHIN REACH.
--- NOTE | 2023-08-09 04:45 | NUR ---
CALL LIGHT ANSWERED. PATIENT REQUESTING TO GET UP AND SHAVE. PATIENT SHAVED IN BATHROOM WHILE STANDING AND 1 PA STAND BY ASSIST. TOLLERATED WELL. PATIENT BRUSHED TEETH AT BEDSIDE WHILE SITTING IN BED. sTANDING WEIGHT OBTAINED. VSS. DENIES ANY PAIN OR DISCOMFORT. ZHONG CATHERTER EMPTIED, QUANITY SUFFICIENT OUTPUT THIS SHIFT. NEW GOWN AND BEDDING CHANGED WHILE PATIENT WAS IN BATHROOM. PATIENT ON RA AT THIS TIME. CPOX READINGS WNL. CALL LIGHT WITHIN REACH.
[2023-08-09 05:21] LABS: HEMOGLOBIN 9.9 g/dL (12.0-18.0)
[2023-08-09 05:23] LABS: EOSINOPHILS 6.9 % (0-6); HEMATOCRIT 29.4 % (35.0-50.0); LYMPHOCYTES 22.4 % (24-44); MCH 30.5 (27-36); MCHC 33.6 g/dl (30-36); MCV 90.9 fl (81-99); MONOCYTES 12.5 % (0-12); NEUTROPHILS 57.2 % (39-80); PLATELET COUNT 104 K/uL (140-440); RBC 3.23 M/ul (4.3-5.7); RDW 17.2 (10.5-15.0)
[2023-08-09 05:35] LABS: ALBUMIN 2.8 g/dL (3.4-5.0); ANION GAP 9.7 (7-21); BILIRUBIN, TOTAL 0.6 ng/dL (0.2-1.0); BUN/CREATININE RATIO 17.35 (6.0-28.6); CALCIUM 8.3 mg/dL (8.5-10.1); CREATININE, SERUM 1.21 mg/dL (0.70-1.30); POTASSIUM 4.7 mmol/L (3.5-5.1); PROTEIN, TOTAL 5.6 g/dL (6.4-8.2)
--- NOTE | 2023-08-09 05:40 | NUR ---
CALL LIGHT ANSWERED, pt REPORTS FEELING A LITTLE SOB. IN ROOM TO ASSESS, pt SPO2 UPPER 90'S ON RA. RR EVEN AND UNLABORED, NO DISTRESS NOTED. HR WNL. pt SITTING SOMELAT LOW IN BED, pt BOOSTED SELF IN BED AND HOB THEN RAISED. pt REPORTS SOB NOW RESOLVED. IV SITE WNL, FLUIDS INFUSING WNL. CALL LIGHT IN REACH. NO ADDITIONAL NEEDS OR CONCERNS VERBALIZED BY pt.
[2023-08-09] MEDS ORDERED: SACUBITRIL/VALSARTAN 1 EACH TABLET PO SCH (09:00)
--- NOTE | 2023-08-09 09:56 | NUR ---
PATIENT IN CHAIR AT THIS TIME. VITALS AND I&O'S CHARTED. CALL LIGHT WITHIN REACH, NO FURHTER NEEDS AT THIS TIME.
--- NOTE | 2023-08-09 11:01 | NUR ---
Patient sitting up in chair, alert and oriented x4. Patient reports he continues to have hallucinations. Patient reports 4/10 chronic back pain, admin tylenol 650mg po at this time. IV fluid rate changed per provider order. IV site remains intact/patent. Spo2 93% on room air, respirations even and non labored. Chair alarm intact.
--- NOTE | 2023-08-09 13:45 | NUR ---
Spoke with Mian. He plans on dc tomorrow. Wanting to know if he can have his cg hours increased. Reminded him he needs to call Angi Nielsen and request an evaluation. I gave him the phone number yesterday.
[2023-08-09] MEDS ORDERED: CEFEPIME HCL/D5W 2 GM/100 ML PIGGYBACK IV SCH (14:00)
--- NOTE | 2023-08-09 15:15 | NUR ---
Patient up to restroom for a large bowel movement. Patient denies sbortness of breath at this time, sp02 92% on room air. Patient back to bed, alarm intact. Patient denies further needs, personal supplies and call light within reach.
--- NOTE | 2023-08-09 16:55 | NUR ---
Patient appears to be in a good mood. Only request from patient was a refill of water with Crystal Light. No further request from patient. Call light has been placed within reach.
--- NOTE | 2023-08-09 19:35 | NUR ---
REPORT RECEIVED FROM DAY RN. PATIENT RESTING IN BED WITH IVF RUNNING NO ISSUES AT THIS TIME. CPOX ALARMING. NEW CPOX STICKER PLACED DUE TO POOR CONNECTION. CPOX READINGS WNL WHILE PATIENT IS ON RA. PATIENT DENIES ANY NEEDS AT THIS TIME. CALL LIGHT WITHIN REACH. BED ALARM ON.
--- NOTE | 2023-08-09 20:54 | NUR ---
PATIENT RESTING IN BED. CPOX ALARMING. READINGS WNL AFTER READJUSTED STICKER PROBE ON FINGER. DENIES ANY PAIN OR DISCOMFORT. NO NOTED EDEMA IN LOWER EXTERMITIES. VSS. LUNGS CTA. URINE DRAINING WELL YELLOW IN COLOR. CALL LIGHT WITHIN REACH.
--- NOTE | 2023-08-09 22:28 | NUR ---
PATIENT RESTIN IN BED SLEEPING. IV ABX STARTED. RN ASSISTED PATIENT WITH PLACING CPAP ON. NO FURTHER NEEDS AT THIS TIME. CALL LIGHT WITHIN REACH.
--- NOTE | 2023-08-09 23:12 | NUR ---
IV PUMP ALARMING, ISSUE RESOLVED. IV FLUIDS AND IV ABX INFUSING DIRECTED, IV SITE WNL. IV PUMP MOVED TO OTHER SIDE OF pt BED. NO ADDITIONAL NEEDS, CALL LIGHT IN REACH.
--- NOTE | 2023-08-10 01:14 | NUR ---
PATIENT BED ALARM SOUNDING. PATIENT STILL SITTING IN BED UPPON ARRIVAL INTO ROOM. PATIENT STATED, " I AM CONFUSED." RN REORIENTED PATIENT. ASSISTED WITH PLACING CPAP ON. PATIENT RESTING IN BED. NO FURTHER NEEDS AT THIS TIME. CALL LIGHT WITHIN REACH. BED ALARM ON.
--- NOTE | 2023-08-10 02:02 | NUR ---
CPOX ALARMING. PATIENT ADJUSTING CPAP MASK. RN ASSISTED PATIENT WITH CPAP MASK. NO FURTHER NEEDS AT THIS TIME. CALL LIGHT WITHIN REACH, BED ALARM ON.
--- NOTE | 2023-08-10 03:35 | NUR ---
BED ALARM SOUNDING. PATIENT MOVING AROUND IN BED. RESTLESS. CPAP MASK OFF. STATED. " I'M AWAKE FOR THE DAY." DENIED ANY NEEDS AT THIS TIME. CALL LIGHT WITHIN REACH. BED ALARM ON.
[2023-08-10 05:34] LABS: EOSINOPHILS 5.5 % (0-6); HEMATOCRIT 31.9 % (35.0-50.0); HEMOGLOBIN 10.6 g/dL (12.0-18.0); LYMPHOCYTES 13.5 % (24-44); MCH 30.2 (27-36); MCHC 33.3 g/dl (30-36); MCV 90.8 fl (81-99); PLATELET COUNT 114 K/uL (140-440); RBC 3.52 M/ul (4.3-5.7); RDW 17.3 (10.5-15.0)
[2023-08-10 05:35] VITALS: BP 130/70
--- NOTE | 2023-08-10 05:42 | NUR ---
NATIONAL STORMWATER LEADER ENTERED ROOM AND OBTAINED VITALS. ZHONG BAG EMPTIED AND I AND O DOCUMENTED. PT STATES NO FURTHER NEEDS AT THIS TIME. CALL LIGHT PLACED WITHIN REACH.
[2023-08-10 06:03] LABS: ALBUMIN 2.9 g/dL (3.4-5.0); ALBUMIN/GLOBULIN RATIO 0.97 (1.1-2.4); ANION GAP 10.7 (7-21); BILIRUBIN, TOTAL 0.7 ng/dL (0.2-1.0); CALCIUM 8.4 mg/dL (8.5-10.1); CREATININE, SERUM 1.2 mg/dL (0.70-1.30); POTASSIUM 4.7 mmol/L (3.5-5.1); PROTEIN, TOTAL 5.9 g/dL (6.4-8.2)
[2023-08-10 06:09] VITALS: BP 130/70
--- NOTE | 2023-08-10 06:10 | NUR ---
PATIENT ASSISTED TO STANDING SCALE FOR DAILY WEIGHT. TOLLERATED WELL WITH 1 PA STAND BY ASSIST A FWW. NO NOTED SOB, HOWEVER PATIENT REPORTED FEELING WEAK. PATIENT THEN TRANSFERED TO RECLINER WHERE IS IS RESTING. IV ABX STARTED. OCPOX READINGS WNL DURING TRANSFER AND AT THIS TIME. NOTED THAT PATIENT WAS ON ROOM AIR DURRING TRANSFER AND AT THIS TIME. NO FURTHER NEEDS. CALL LIGHT WITHIN REACH. CHAIR ALARM ON.
--- NOTE | 2023-08-10 08:01 | NUR ---
PT SITTING UP IN CHAIR, A/OX4 VERY PLEASANT. IV BEEPING, REPLACED IV FLUID BAG AT 100ML/HR. PT HAD NO FURTHER NEEDS AT THIS TIME, INFORMED HIS RN WOULD BE IN SHORTLY TO SEE HIM. CALL LIGHT WITHIN REACH AT THIS TIME.
--- NOTE | 2023-08-10 08:19 | NUR ---
PATIENT IN CHIAR EATING BREAKFAST AT THIS TIME. FRESH LINENS GIVEN BY POOL HALL INSPECTOR.
[2023-08-10 09:23] VITALS: BP 120/66
--- NOTE | 2023-08-10 09:46 | NUR ---
PATIENT ALERT AND ORIENTED X3
--- NOTE | 2023-08-10 09:49 | NUR ---
CHAIR ALARM WAS NOT ON PATIENTS CHAIR AT 0923 PATIENT WAS PLEASANT AND REPORTED THAT HE ATE HIS BREAKFAST AT APPROX 0900
--- NOTE | 2023-08-10 10:59 | NUR ---
Patient sitting up in chair, alert to self and place. Patient reports he slep well last night. Patient's vital sings are stable. Patient reports chronic back pain, tylenol in use. IV site remains patent, fluids infusing per provider oder.
--- NOTE | 2023-08-10 11:10 | NUR ---
Spoke with Mian. He plans on dc today. Daughter will transport him. RT will complete an 02 qualifier. Pt would like to use [facility] as he has his CPAP from them. He denies other needs. Asks if I was able to get his cg hrs increased. Reminded I gave him a number to call Angi Nielsen. He states he called her and she said she would visit him. Plan for dc later.
[2023-08-10] MEDS ORDERED: CIPROFLOXACIN500 MG PO (11:36)
--- NOTE | 2023-08-10 11:51 | NUR ---
PATIENT IN CHAIR AT THIS TIME. CALL LIGHT WITHIN REACH, NO FURTHER NEEDS AT THIS TIME.
[2023-08-10] MEDS ORDERED: MELATONIN5 M2 PO (12:14)
[2023-08-10 13:23] VITALS: BP 115/63; BP 115/91
[2023-08-10 13:39] VITALS: BP 115/63
--- NOTE | 2023-08-10 14:00 | NUR ---
Received 02 qualifier. Printed chart and faxed face sheet, 02 qual, RX, H&P, progress note to [facility]. Called at 1420 and they did not received and asked I fax again. They will call when they have auth. I called and asked charge nurse if they [place] tanks to send with this pt. I am waiting on auth. and will notify when pt can leave. I spoke with pt and updated. He states he will call his daughter shortly. Let him know we usually try and wait to send pt home until we know [facility] has received auth and they give us a time they will meet pt. I will send a tank, but it is only good for approx 4-5 hrs depending on 02 flow. He states he will wait.
--- NOTE | 2023-08-10 15:00 | NUR ---
Call from [facility], they have auth and are waiting for a courtesy van driver. Gave them the pt number and let them know he will be leaving with his daughter. They will call him when they are on their way.
== END 2023-08-10 16:05 | disposition home or self-care (01) | DRG 690 ==
LOC: ED 00:29 → MS 00:31
PROVIDERS: Internal Medicine; ADMIT Family Medicine; ATTEND Family Medicine
PROC: 5A09357 Assistance with Respiratory Ventilation, Less than 24 Consecutive Hours, Continuous Positive Airway Pressure (ICD-10-PCS; principal; 2023-08-09)
DX: N39.0 Urinary tract infection, site not specified (principal); N17.9 Acute kidney failure, unspecified; I48.20 Chronic atrial fibrillation, unspecified; I50.32 Chronic diastolic (congestive) heart failure; R44.3 Hallucinations, unspecified; R42 Dizziness and giddiness; N18.32 Chronic kidney disease, stage 3b; G25.81 Restless legs syndrome; G35 Multiple sclerosis; I95.9 Hypotension, unspecified; E66.9 Obesity, unspecified; Z86.718 Personal history of other venous thrombosis and embolism; Z87.891 Personal history of nicotine dependence; Z98.890 Other specified postprocedural states; Z95.2 Presence of prosthetic heart valve; Z96.641 Presence of right artificial hip joint; Z98.1 Arthrodesis status; Z98.84 Bariatric surgery status; Z88.8 Allergy status to other drugs, medicaments and biological substances; Z91.040 Latex allergy status; Z79.899 Other long term (current) drug therapy; Z79.01 Long term (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
CPT/HCPCS: 36415; 70450; 71045; 80053; 81001; 83605; 83735; 83880; 84100; 84484; 85025; 87088; 87502; 93005; 93010; 94760; 94761; 94762; 97162; 97166; 97530; A9270; J0692; J0696; J3411; J7030; J7121; U0002

== ENCOUNTER 2023-08-23 17:07 | Emergency (ER) | payer MEDICARE, OTHER ==
[~2023-08-23] VITALS: Ht 177.8 cm; Wt 99.0 kg
[~2023-08-23 17:07] MED LIST changes: +AMPYRA10 MG PO; +CIPROFLOXACIN500 MG PO; +FLUOXETINE HCL20 MG PO; +LATANOPROST2.5 ML OU; +MELATONIN5 M2 PO; +MEMANTINE HCL5 MG PO
--- OUTSIDE RECORDS SUMMARY | 2023-08-23 17:10 | XMS ---
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 [place] - 2 Visits in 30 Days CARE PROVIDERS Angi Nielsen Hop Farmer/Director Sales Training 07/26/2023-Current PHONE: [phone] LUCIO TAO Dentist: Courier Delivery Driver 04/23/2019-Current PHONE: [phone] -[facility] Dentist: Courier Delivery Driver [facility] PHONE: [phone] -[facility]- Dentist: Courier Delivery Driver [facility] PHONE: [phone] EVENS GARCAI [facility] Current PHONE: [phone] TIERRA CONRAD Internal Medicine Current PHONE: [phone] TIFFANY Glover MD, SPENCER Hop Farmer/Director Sales Training Current PHONE: [phone] MICHELLE SMALLS Family Medicine Current PHONE: Unknown ELEANOR GUAN Nurse Practitioner: Family Current PHONE: [phone] MARGARET CORDERO Internal Medicine Current PHONE: [phone] LESLEY URBAN I. Physician Taxonomist Current PHONE: Unknown PAGE KELLEY Nurse Harry Current PHONE: Unknown LEXA ONTIVEROS Internal Medicine Current PHONE: [phone] SCOUT GANT Nurse Harry MUNIZ PHONE: [phone] [facility] Current PHONE: Unknown KEATON [facility] Current PHONE: [phone] AARON COLON Nurse Practitioner Current PHONE: [phone] Branden has no Care Guidelines for this patient. Kuldeep VISIT COUNT (12 MO.) 19 [facility] TOTAL 19 NOTE: Visits indicate total known visits. ED/UCC VISIT TRACKING (12 MO.) 08/23/2023 17:08 [facility] TYPE: Emergency COMPLAINT: - CATHETER ADJUSTMENT 08/07/2023 00:30 [facility] TYPE: Emergency COMPLAINT: - MEDICAL CLEARANCE 07/31/2023 21:09 [facility] TYPE: Emergency COMPLAINT: - CATHETER PROBLEM DIAGNOSES: - Allergy status to other drugs, medicaments and biological substances - Body mass index [BMI] 30.0-30.9, adult - Heart failure, unspecified - Latex allergy status - Leakage of indwelling urethral catheter, initial encounter - [facility] (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 - Multiple sclerosis - Obesity, unspecified - Other rodent exterminator (current) drug therapy - Other mechanical complication [...] of indwelling urethral catheter, initial encounter - termite technician (current) use of antithrombotics/antiplatelets - Multiple sclerosis - Obesity, unspecified - Other rodent exterminator (current) drug therapy - Other medical procedures [...] Hypotension, unspecified - Latex allergy status - termite technician (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 - Obesity, unspecified - Other rodent exterminator (current) drug therapy - Personal history of nicotine dependence - Personal history of urinary (tract) infections - Presence of urogenital implants - Unspecified atrial fibrillation 06/28/2023 20:34 [facility] TYPE: Emergency COMPLAINT: - BLOOD PRESSURE PROBLEM DIAGNOSES: - Allergy status to other drugs, medicaments and biological substances - Latex allergy status - termite technician (current) use of antithrombotics/antiplatelets - Nonspecific low blood-pressure reading - Other rodent exterminator (current) drug therapy - Personal history of [...] failure, unspecified - Latex allergy status - [facility] (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 - Multiple sclerosis - Obesity, unspecified - Other rodent exterminator (current) drug therapy - Personal history of [...] unspecified - Latex allergy status - termite technician (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 - Multiple sclerosis - Obesity, unspecified - Other prison (current) drug therapy - Other specified soft [...] failure, unspecified - Latex allergy status - [facility] (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 - Multiple sclerosis - Obesity, unspecified - Other rodent exterminator (current) drug therapy - Other specified soft [...] failure, unspecified - Latex allergy status - [facility] (current) use of antithrombotics/antiplatelets - Multiple sclerosis - Nonspecific low blood-pressure reading - Obesity, unspecified - Other rodent exterminator (current) drug therapy - Personal history of nicotine dependence - Presence of prosthetic heart valve - Presence of right artificial hip joint 04/28/2023 10:09 [facility] TYPE: Emergency COMPLAINT: - LOW B/P, LIGHT HEADED, FATIGUE, WEAK, POSS UTI DIAGNOSES: - Allergy status to other drugs, medicaments and biological substances - Anemia, unspecified - Heart failure, unspecified - Latex allergy status - [facility] (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 - Obesity, unspecified - Other rodent exterminator (current) drug therapy - Unspecified atrial fibrillation - Urinary tract infection, site not specified - Weakness 03/12/2023 05:35 [facility] TYPE: Emergency COMPLAINT: - BLOOD IN URINE DIAGNOSES: - Allergy status to other drugs, medicaments and biological substances - Gross hematuria - Heart failure, unspecified - Latex allergy status - Multiple sclerosis - Neuromuscular dysfunction of bladder, unspecified - Other rodent exterminator (current) drug therapy - Other postprocedural complications and disorders of genitourinary system - Personal history of nicotine dependence - Unspecified atrial fibrillation 2023 14:36 [facility] TYPE: Emergency COMPLAINT: - FALL DIAGNOSES: - Allergy status to other drugs, medicaments and biological substances - Heart failure, unspecified - Hypoglycemia, unspecified - Latex allergy status - [facility] (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 - Multiple sclerosis - Obesity, unspecified - Other prison (current) drug therapy - Personal history of nicotine dependence - Syncope and collapse - Unspecified atrial fibrillation 01/23/2023 11:49 [facility] TYPE: Emergency COMPLAINT: - LETHARGIC, WEIGHT GAIN OVERNIGHT, WEAK DIAGNOSES: - Allergy status to other drugs, medicaments and biological substances - Body mass index [BMI] 31.0-31.9, adult - Heart failure, unspecified - Latex allergy status - [facility] (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 - Multiple sclerosis - Obesity, unspecified - Other prison (current) drug therapy - Personal history of nicotine dependence - Unspecified atrial fibrillation - Weakness 01/14/2023 10:42 [facility] TYPE: Emergency COMPLAINT: - WEAKNESS DIAGNOSES: - Allergy status to other drugs, medicaments and biological substances - Body mass index [BMI] 30.0-30.9, adult - Bronchitis, not specified as acute or chronic - Heart failure, unspecified - Latex allergy status - termite technician (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 - Multiple sclerosis - Obesity, unspecified - Other rodent exterminator (current) drug therapy - Personal history of [...] Multiple sclerosis - Obesity, unspecified - Other rodent exterminator (current) drug therapy - Personal history of nicotine dependence - Unspecified atrial fibrillation - Weakness 11/20/2022 00:01 [facility] TYPE: Emergency COMPLAINT: - LOW HEART RATE DIAGNOSES: - Allergy status to other drugs, medicaments and biological substances - Body mass index [BMI] 29.0-29.9, adult - Heart failure, unspecified - Latex allergy status - termite technician (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 - Multiple sclerosis - Obesity, unspecified - Other rodent exterminator (current) drug therapy - Personal history of nicotine dependence - Unspecified atrial fibrillation - Urinary tract infection, site not specified - Weakness 10/25/2022 19:42 [facility] TYPE: Emergency COMPLAINT: - CHEST PAIN DIAGNOSES: - Allergy status to other drugs, medicaments and biological substances - Chest pain, unspecified - Heart failure, unspecified - Latex allergy status - termite technician (current) use of antithrombotics/antiplatelets - Multiple sclerosis - Obesity, unspecified - Personal history of nicotine dependence - Presence of right artificial hip joint 10/11/2022 16:41 [facility] TYPE: Emergency COMPLAINT: - CONFUSION DIAGNOSES: - Allergy status to other drugs, medicaments and biological substances - Disorientation, unspecified - Heart failure, unspecified - [facility] (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 - Multiple sclerosis - Obesity, unspecified - Other prison (current) drug therapy - Unspecified atrial fibrillation - Weakness INPATIENT VISIT TRACKING (12 MO.) 08/08/2023 10:36 [facility] TYPE: Medical Surgical COMPLAINT: - UTI, DIZZINESS DIAGNOSES: - Acute kidney failure, unspecified - Acute kidney failure, unspecified - Allergy status to other drugs, medicaments and biological substances - Allergy status to other drugs, medicaments and biological substances - Arthrodesis status - Arthrodesis status - Bariatric surgery status - Bariatric surgery status - Chronic atrial fibrillation, unspecified - Chronic atrial fibrillation, unspecified - Chronic diastolic (congestive) heart failure - Chronic diastolic (congestive) heart failure - Chronic kidney disease, stage 3b - Chronic kidney disease, stage 3b - Dizziness and giddiness - Hallucinations, unspecified - Hallucinations, unspecified - Hypotension, unspecified - Hypotension, unspecified - Latex allergy status - Latex allergy status - [facility] (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 - [facility] (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 - Multiple sclerosis - Multiple sclerosis - Obesity, unspecified - Obesity, unspecified - Other prison (current) drug therapy - Other prison (current) drug therapy - Other specified postprocedural states - Other specified postprocedural states - Personal history of nicotine dependence - Personal history of nicotine dependence - Personal history of other venous thrombosis and embolism - Personal history of other venous thrombosis and embolism - Presence of prosthetic heart valve - Presence of prosthetic heart valve - Presence of right artificial hip joint - Presence of right artificial hip joint - Restless legs syndrome - Restless legs syndrome - Urinary tract infection, site not specified - Urinary tract infection, site not specified 10/24/2022 07:48 [facility] TYPE: Internal Medicine DIAGNOSES: - Acute on chronic combined systolic (congestive) and diastolic (congestive) heart failure - Atherosclerotic heart disease of [place] coronary artery without angina pectoris - Bradycardia, unspecified - Chronic kidney disease, stage 3a - Dependence on other enabling machines and devices - Dilated cardiomyopathy - Nonrheumatic aortic (valve) stenosis - Obstructive sleep apnea (adult) (pediatric) - Other cardiomyopathies - Paroxysmal atrial fibrillation - Presence of prosthetic heart valve [email or web address]
[2023-08-23 20:28] LABS: BILIRUBIN, URINE NEGATIVE (negative); BLOOD/HGB, URINE NEGATIVE (Negative); KETONE, URINE NEGATIVE (Negative); LEUK ESTERASE, URINE NEGATIVE (negative); NITRITE, URINE NEGATIVE (negative); PH, URINE 7.5 (5-7)
[2023-08-23] MEDS ORDERED: LIDOCAINE 2% VISCOUS 6 ML SYR TOP ONE (20:45)
[2023-08-23 21:04] VITALS: BP 128/86
== END 2023-08-23 21:05 | disposition home or self-care (01) ==
LOC: ED 17:07
PROVIDERS: Family Medicine
DX: T83.84XA Pain due to genitourinary prosthetic devices, implants and grafts, initial encounter (principal); G35 Multiple sclerosis; E66.9 Obesity, unspecified; Z68.31 Body mass index [BMI] 31.0-31.9, adult; I48.91 Unspecified atrial fibrillation; I50.9 Heart failure, unspecified; Z87.891 Personal history of nicotine dependence; Z91.040 Latex allergy status; Z88.8 Allergy status to other drugs, medicaments and biological substances; Z79.01 Long term (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; Z79.899 Other long term (current) drug therapy
CPT/HCPCS: 81003; 99283

== ENCOUNTER 2023-09-01 16:59 | Emergency (ER) | payer MEDICARE, OTHER ==
[~2023-09-01] VITALS: Ht 177.8 cm; Wt 106.6 kg
--- OUTSIDE RECORDS SUMMARY | 2023-09-01 17:02 | XMS ---
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 CARTER Security Tree Planter Events No recent Security Events currently on file CRITERIA MET - 6 ED Visits in 6 Months - [facility] - [facility] - 2 Visits in 30 Days CARE PROVIDERS Angi Nielsen Major Gifts Officer/Pressroom Worker 08/26/2023-Current PHONE: [phone] LUCIO TAO Dentist: Mothercraft Nurse 04/23/2019-Current PHONE: [phone] -[facility] Dentist: Mothercraft Nurse [facility] PHONE: [phone] -[facility]- Dentist: Mothercraft Nurse [facility] PHONE: [phone] EV[facility] GARCIA Family [facility] Current PHONE: [phone] TIERRA CONRAD Internal Medicine Current PHONE: [phone] TIFFANY Glover MD, SPENCER Major Gifts Officer/Pressroom Worker Current PHONE: [phone] MICHELLE SMALLS Family Medicine Current PHONE: Unknown ELEANOR GUAN Nurse Practitioner: Family Current PHONE: [phone] MARGARET CORDERO Internal Medicine Current PHONE: [phone] LESLEY URBAN I. Physician Tractor Crane Engineer Current PHONE: Unknown PAGE KELLEY Nurse Harry Current PHONE: Unknown LEXA ONTIVEROS Internal Medicine Current PHONE: [phone] SCOUT GANT Nurse Harry MUNIZ PHONE: [phone] SILVEST[address] [facility] Current PHONE: Unknown KEATON [facility] Current PHONE: [phone] AARON COLON Nurse Practitioner Current PHONE: [phone] Branden has no Care Guidelines for this patient. Kuldeep VISIT COUNT (12 MO.) [address] [facility] [address] [place] TOTAL 20 NOTE: Visits indicate total known visits. ED/UCC VISIT TRACKING (12 MO.) 09/01/2023 17:00 [facility] TYPE: Emergency COMPLAINT: - RT SWOLLEN LEG 08/23/2023 17:08 [facility] TYPE: Emergency COMPLAINT: - CATHETER ADJUSTMENT DIAGNOSES: - Allergy status to other drugs, medicaments and biological substances - Body mass index [BMI] 31.0-31.9, adult - Heart failure, unspecified - Latex allergy status - care home (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 - Multiple sclerosis - Obesity, unspecified - Other joint terminal attack controller (current) drug therapy - Pain due to genitourinary prosthetic devices, implants and grafts, initial encounter - Personal history of nicotine dependence - Unspecified atrial fibrillation 08/07/2023 00:30 [facility] [place] TYPE: Emergency COMPLAINT: - MEDICAL CLEARANCE 07/31/2023 21:09 [facility] [place] TYPE: Emergency COMPLAINT: - CATHETER PROBLEM DIAGNOSES: - Allergy status to other drugs, medicaments and biological substances - Body mass index [BMI] 30.0-30.9, adult - Heart failure, unspecified - Latex allergy status - Leakage of indwelling urethral catheter, initial encounter - care home (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 - Multiple sclerosis - Obesity, unspecified - Other custodial (current) drug therapy - Other mechanical complication [...] of indwelling urethral catheter, initial encounter - terminal block assembler (current) use of antithrombotics/antiplatelets - Multiple sclerosis - Obesity, unspecified - Other joint terminal attack controller (current) drug therapy - Other medical procedures [...] Hypotension, unspecified - Latex allergy status - terminal block assembler (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 - Obesity, unspecified - Other joint terminal attack controller (current) drug therapy - Personal history of nicotine dependence - Personal history of urinary (tract) infections - Presence of urogenital implants - Unspecified atrial fibrillation 06/28/2023 20:34 [facility] [place] TYPE: Emergency COMPLAINT: - BLOOD PRESSURE PROBLEM DIAGNOSES: - Allergy status to other drugs, medicaments and biological substances - Latex allergy status - terminal block assembler (current) use of antithrombotics/antiplatelets - Nonspecific low blood-pressure reading - Other joint terminal attack controller (current) drug therapy - Personal history of [...] Multiple sclerosis - Obesity, unspecified - Other joint terminal attack controller (current) drug therapy - Other specified soft [...] Multiple sclerosis - Obesity, unspecified - Other joint terminal attack controller (current) drug therapy - Other specified soft [...] failure, unspecified - Latex allergy status - care home (current) use of antithrombotics/antiplatelets - Multiple sclerosis - Nonspecific low blood-pressure reading - Obesity, unspecified - Other custodial (current) [...] block assembler (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 - Obesity, unspecified - Other custodial (current) drug therapy - Unspecified atrial fibrillation - Urinary tract infection, site not specified - Weakness 03/12/2023 05:35 [facility] [place] TYPE: Emergency COMPLAINT: - BLOOD IN URINE DIAGNOSES: - Allergy status to other drugs, medicaments and biological substances - Gross hematuria - Heart failure, unspecified - Latex allergy status - Multiple sclerosis - Neuromuscular dysfunction of bladder, unspecified - Other custodial (current) drug therapy - Other postprocedural complications and disorders of genitourinary system - Personal history of nicotine dependence - Unspecified atrial fibrillation 2023 14:36 [facility] [place] TYPE: Emergency COMPLAINT: - FALL DIAGNOSES: - Allergy status to other drugs, medicaments and biological substances - Heart failure, unspecified - Hypoglycemia, unspecified - Latex allergy status - care home (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 - Multiple [...] failure, unspecified - Latex allergy status - care home (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 - Multiple [...] failure, unspecified - Latex allergy status - care home (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 - Multiple [...] failure, unspecified - Latex allergy status - care home (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 - Multiple sclerosis - Obesity, unspecified - Other joint terminal attack controller (current) drug therapy - Personal history of nicotine dependence - Unspecified atrial fibrillation - Urinary tract infection, site not specified - Weakness 10/25/2022 19:42 [facility] [place] TYPE: Emergency COMPLAINT: - CHEST PAIN DIAGNOSES: - Allergy status to other drugs, medicaments and biological substances - Chest pain, unspecified - Heart failure, unspecified - Latex allergy status - care home (current) use of antithrombotics/antiplatelets - Multiple sclerosis - Obesity, unspecified - Personal history of nicotine dependence - Presence of right artificial hip joint 10/11/2022 16:41 [facility] [place] TYPE: Emergency COMPLAINT: - CONFUSION DIAGNOSES: - Allergy status to other drugs, medicaments and biological substances - Disorientation, unspecified - Heart failure, unspecified - terminal block assembler (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 - Multiple sclerosis - Obesity, unspecified - Other custodial (current) drug therapy - Unspecified atrial fibrillation [...] allergy status - Latex allergy status - terminal block assembler (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 - terminal block assembler (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 - Multiple sclerosis - Multiple sclerosis - Obesity, unspecified - Obesity, unspecified - Other custodial (current) drug therapy - Other custodial (current) drug therapy - Other specified postprocedural [...] tract infection, site not specified 10/24/2022 07:48 [facility] TYPE: Internal Medicine DIAGNOSES: - Acute on chronic combined systolic (congestive) and diastolic (congestive) heart failure - Atherosclerotic heart disease of [place] coronary artery without angina pectoris - Bradycardia, unspecified - Chronic kidney disease, stage 3a - Dependence on other enabling machines and devices - Dilated cardiomyopathy - Nonrheumatic aortic (valve) stenosis - Obstructive sleep apnea (adult) (pediatric) - Other cardiomyopathies - Paroxysmal atrial fibrillation - Presence of prosthetic heart valve [id number]
[2023-09-01] MEDS ORDERED: SODIUM CHLORIDE 0.9% 1,000 ML IV ONE (18:45)
[2023-09-01 19:04] LABS: BASOPHILS 0.7 % (0-2); EOSINOPHILS 8.1 % (0-6); HEMATOCRIT 33.8 % (35.0-50.0); LYMPHOCYTES 20.3 % (24-44); MCH 29.4 (27-36); MCHC 32.7 g/dl (30-36); MCV 90.1 fl (81-99); MONOCYTES 13.7 % (0-12); NEUTROPHILS 57.2 % (39-80); PLATELET COUNT 123 K/uL (140-440); RBC 3.75 M/ul (4.3-5.7); RDW 16.6 (10.5-15.0)
[2023-09-01 19:27] LABS: ALBUMIN 3.5 g/dL (3.4-5.0); ALBUMIN/GLOBULIN RATIO 1.06 (1.1-2.4); ANION GAP 14.4 (7-21); BILIRUBIN, TOTAL 0.7 ng/dL (0.2-1.0); BUN/CREATININE RATIO 24.46 (6.0-28.6); CALCIUM 8.6 mg/dL (8.5-10.1); CREATININE, SERUM 1.39 mg/dL (0.70-1.30); POTASSIUM 4.4 mmol/L (3.5-5.1); PROTEIN, TOTAL 6.8 g/dL (6.4-8.2)
[2023-09-01 21:31] LABS: BILIRUBIN, URINE NEGATIVE (negative); BLOOD/HGB, URINE NEGATIVE (Negative); KETONE, URINE NEGATIVE (Negative); LEUK ESTERASE, URINE NEGATIVE (negative); NITRITE, URINE NEGATIVE (negative); PH, URINE 5.5 (5-7)
[2023-09-01] MEDS ORDERED: CEFTRIAXONE/SODIUM CHLORIDE 2 GM/100 ML PIGGYBACK IV ONE (23:15)
[2023-09-01] MEDS ORDERED: CIPRO500 MG PO (23:32)
[2023-09-02 00:13] VITALS: BP 133/90
== END 2023-09-02 00:05 | disposition home or self-care (01) ==
LOC: ED 16:59
PROVIDERS: Emergency Medicine
DX: E86.0 Dehydration (principal); I50.9 Heart failure, unspecified; G35 Multiple sclerosis; E66.9 Obesity, unspecified; Z87.891 Personal history of nicotine dependence; Z88.8 Allergy status to other drugs, medicaments and biological substances; Z91.040 Latex allergy status; Z79.01 Long term (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; Z68.33 Body mass index [BMI] 33.0-33.9, adult
CPT/HCPCS: 36415; 71045; 80053; 81003; 83880; 85025; J0696; J7030

== ENCOUNTER 2023-10-05 12:05 | Emergency (ER) | payer MEDICARE, OTHER ==
[~2023-10-05] VITALS: Ht 177.8 cm; Wt 106.9 kg
[~2023-10-05 12:05] MED LIST changes: +CIPRO500 MG PO
--- OUTSIDE RECORDS SUMMARY | 2023-10-05 12:06 | XMS ---
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 CARTER Security Top Tile Decorator Events No recent Security Events currently on file CRITERIA MET - 6 ED Visits in 6 Months - [facility] - [facility] - 2 Visits in 30 Days CARE PROVIDERS Angi Nielsen Online Journalist/Printing Plate Setter 08/26/2023-Current PHONE: [phone] LUCIO TAO Dentist: Sensory Scientist 04/23/2019-Current PHONE: [phone] -[facility] Dentist: Sensory Scientist [facility] PHONE: [phone] -[facility]- Dentist: Sensory Scientist [facility] PHONE: [phone] [facility] GARCIA [facility] Current PHONE: [phone] TIERRA CONRAD Internal Medicine Current PHONE: [phone] TIFFANY Glover MD, SPENCER Online Journalist/Printing Plate Setter Current PHONE: [phone] MICHELLE SMALLS Family Medicine Current PHONE: Unknown ELEANOR GUAN Nurse Practitioner: Family Current PHONE: [phone] MARGARET CORDERO Internal Medicine Current PHONE: [phone] LESLEY URBAN I. Physician Microbiology Quality Control Technician Current PHONE: Unknown PAGE KELLEY Nurse Harry Current PHONE: Unknown LEXA ONTIVEROS Internal Medicine Current PHONE: [phone] SCOUT GANT Nurse Harry MUNIZ PHONE: [phone] SILVESTRE [facility] Current PHONE: Unknown KEATON [facility] Current PHONE: [phone] AARON COLON Nurse Practitioner Current PHONE: [phone] Branden has no Care Guidelines for this patient. Kuldeep VISIT COUNT (12 MO.) [address] [facility] [address] [place] TOTAL 25 NOTE: Visits indicate total known visits. ED/UCC VISIT TRACKING (12 MO.) 10/05/2023 12:05 [facility] [place] TYPE: Emergency COMPLAINT: - URINE PROBLEM 09/19/2023 09:03 [facility] [place] TYPE: Emergency COMPLAINT: - LEG SWELLING DIAGNOSES: - Allergy status to other drugs, medicaments and biological substances - Body mass index [BMI] 33.0-33.9, adult - Cellulitis of right lower limb - Heart failure, unspecified - Latex allergy status - jail (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 - Multiple sclerosis - Obesity, unspecified - Other custodial (current) drug therapy - Unspecified atrial fibrillation 09/13/2023 09:56 [facility] [place] TYPE: Emergency COMPLAINT: - LOW BLOOD PRESSURE DIAGNOSES: - Allergy status to other drugs, medicaments and biological substances - Fall on same level, unspecified, initial encounter - Heart failure, unspecified - Hypotension, unspecified - Latex allergy status - jail (current) use of antithrombotics/antiplatelets - Nonspecific low blood-pressure reading - Obesity, unspecified - Other terminologist (current) drug therapy - Personal history of nicotine dependence - Presence of prosthetic heart valve - Presence of right artificial hip joint - Strain of muscle, fascia and tendon at neck level, initial encounter - Strain of muscle, fascia and tendon of lower back, initial encounter 09/12/2023 18:59 [facility] [place] TYPE: Emergency COMPLAINT: - TRAUMA DIAGNOSES: - Allergy status to other drugs, medicaments and biological substances - Bariatric surgery status - Heart failure, unspecified - Hypoglycemia, unspecified - Latex allergy status - terminal operator (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 - Multiple sclerosis - Obesity, unspecified - Other terminologist (current) drug therapy - Personal history of nicotine dependence - Syncope and collapse - Unspecified atrial fibrillation 09/05/2023 16:38 [facility] [place] TYPE: Emergency COMPLAINT: - ALTERED LOC DIAGNOSES: - Allergy status to other drugs, medicaments and biological substances - Altered mental status, unspecified - Bariatric surgery status - Heart failure, unspecified - Hypoglycemia, unspecified - Hypotension, unspecified - Latex allergy status - jail (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 - Multiple sclerosis - Obesity, unspecified - Other terminologist (current) drug therapy - Personal history of nicotine dependence - Unspecified atrial fibrillation 09/01/2023 17:00 [facility] [place] TYPE: Emergency COMPLAINT: - RT SWOLLEN LEG DIAGNOSES: - Allergy status to other drugs, medicaments and biological substances - Body mass index [BMI] 33.0-33.9, adult - Dehydration - Heart failure, unspecified - Latex allergy status - jail (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 - Multiple sclerosis - Obesity, unspecified - Personal history of nicotine dependence 08/23/2023 17:08 [facility] [place] TYPE: Emergency COMPLAINT: - CATHETER ADJUSTMENT DIAGNOSES: - Allergy status to other drugs, medicaments and biological substances - Body mass index [BMI] 31.0-31.9, adult - Heart failure, unspecified - Latex allergy status - jail (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 - Multiple sclerosis - Obesity, unspecified - Other custodial (current) drug therapy - Pain due to [...] indwelling urethral catheter, initial encounter - terminal operator (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 - [...] indwelling urethral catheter, initial encounter - terminal operator (current) use of antithrombotics/antiplatelets - Multiple sclerosis - Obesity, unspecified - Other custodial (current) drug therapy - Other medical procedures [...] Hypotension, unspecified - Latex allergy status - jail (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 - Obesity, unspecified - Other terminologist (current) drug therapy - Personal history of nicotine dependence - Personal history of urinary (tract) infections - Presence of urogenital implants - Unspecified atrial fibrillation 06/28/2023 20:34 [facility] [place] TYPE: Emergency COMPLAINT: - BLOOD PRESSURE PROBLEM DIAGNOSES: - Allergy status to other drugs, medicaments and biological substances - Latex allergy status - jail (current) use of antithrombotics/antiplatelets - Nonspecific low blood-pressure reading - Other terminologist (current) drug therapy - [...] unspecified - Latex allergy status - terminal operator (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 - [...] failure, unspecified - Latex allergy status - jail (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 - Multiple sclerosis - Obesity, unspecified - Other custodial (current) drug therapy - Other specified soft [...] failure, unspecified - Latex allergy status - jail (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 - Multiple sclerosis - Obesity, unspecified - Other custodial (current) drug therapy - Other specified soft [...] failure, unspecified - Latex allergy status - jail (current) use of antithrombotics/antiplatelets - Multiple sclerosis - Nonspecific low blood-pressure reading - Obesity, unspecified - Other terminologist (current) [...] unspecified - Latex allergy status - terminal operator (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 - Obesity, unspecified - Other terminologist (current) [...] Neuromuscular dysfunction of bladder, unspecified - Other terminologist (current) drug therapy - Other postprocedural complications and disorders of genitourinary system - Personal history of nicotine dependence - Unspecified atrial fibrillation 2023 14:36 [facility] [place] TYPE: Emergency COMPLAINT: - FALL DIAGNOSES: - Allergy status to other drugs, medicaments and biological substances - Heart failure, unspecified - Hypoglycemia, unspecified - Latex allergy status - jail (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 - Multiple sclerosis [...] unspecified - Latex allergy status - terminal operator (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 - Multiple sclerosis - Obesity, unspecified - Other custodial (current) drug therapy - Personal history of nicotine dependence - Unspecified atrial fibrillation - Weakness Plus 5 More Visits INPATIENT VISIT TRACKING (12 MO.) 08/08/2023 10:[address] [facility] [place] TYPE: Medical Surgical COMPLAINT: - UTI, [...] status - Latex allergy status - terminal operator (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 - jail (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 - Multiple sclerosis [...] tract infection, site not specified 10/24/2022 07:48 [facility] TYPE: Internal Medicine DIAGNOSES: - Acute on chronic combined systolic (congestive) and diastolic (congestive) heart failure - Atherosclerotic heart disease of [place] coronary artery without angina pectoris - Bradycardia, unspecified - Chronic kidney disease, stage 3a - Dependence on other enabling machines and devices - Dilated cardiomyopathy - Nonrheumatic aortic (valve) stenosis - Obstructive sleep apnea (adult) (pediatric) - Other cardiomyopathies - Paroxysmal atrial fibrillation - Presence of prosthetic heart valve [id number]
[2023-10-05] MEDS ORDERED: CEPHALEXIN500 MG PO (12:28)
[2023-10-05] MEDS ORDERED: FLUCONAZOLE200 MG PO (12:29)
[2023-10-05 13:04] LABS: BASOPHILS 1.3 % (0-2); EOSINOPHILS 9.4 % (0-6); HEMOGLOBIN 9.9 g/dL (12.0-18.0); LYMPHOCYTES 16.4 % (24-44); MCH 29.1 (27-36); MCV 88.1 fl (81-99); MONOCYTES 13.5 % (0-12); NEUTROPHILS 59.4 % (39-80); PLATELET COUNT 111 K/uL (140-440); RBC 3.41 M/ul (4.3-5.7)
[2023-10-05 13:12] LABS: BILIRUBIN, URINE NEGATIVE (negative); BLOOD/HGB, URINE NEGATIVE (Negative); KETONE, URINE NEGATIVE (Negative); LEUK ESTERASE, URINE NEGATIVE (negative); NITRITE, URINE NEGATIVE (negative)
[2023-10-05 13:21] LABS: ALBUMIN 3.2 g/dL (3.4-5.0); ALBUMIN/GLOBULIN RATIO 1.1 (1.1-2.4); ANION GAP 11.4 (7-21); BILIRUBIN, TOTAL 0.6 ng/dL (0.2-1.0); BUN/CREATININE RATIO 29.22 (6.0-28.6); CALCIUM 8.2 mg/dL (8.5-10.1); CREATININE, SERUM 1.54 mg/dL (0.70-1.30); POTASSIUM 4.4 mmol/L (3.5-5.1); PROTEIN, TOTAL 6.1 g/dL (6.4-8.2)
[2023-10-05 13:26] LABS: LACTIC ACID, BLOOD 0.8 mmol/L (0.4-2.0)
[2023-10-05 15:14] VITALS: BP 97/64
== END 2023-10-05 15:13 | disposition home or self-care (01) ==
LOC: ED 12:05
PROVIDERS: Emergency Medicine
DX: E16.2 Hypoglycemia, unspecified (principal); R44.3 Hallucinations, unspecified; I48.91 Unspecified atrial fibrillation; Z87.891 Personal history of nicotine dependence; Z79.899 Other long term (current) drug therapy; Z91.040 Latex allergy status; Z88.8 Allergy status to other drugs, medicaments and biological substances
CPT/HCPCS: 36415; 80053; 81003; 83605; 85025; 99284

== ENCOUNTER 2023-10-14 15:38 | Emergency (ER) | payer MEDICARE, OTHER ==
[~2023-10-14] VITALS: Ht 177.8 cm; Wt 105.3 kg
[~2023-10-14 15:38] MED LIST changes: +CEPHALEXIN500 MG PO; +FLUCONAZOLE200 MG PO
--- OUTSIDE RECORDS SUMMARY | 2023-10-14 15:39 | XMS ---
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 CARTER Security Dynamics Ax Technical Architect Events No recent Security Events currently on file CRITERIA MET - 6 ED Visits in 6 Months - [facility] - [facility] - 2 Visits in 30 Days CARE PROVIDERS Angi Nielsen Brand Marketing Manager/Console Attendant 08/26/2023-Current PHONE: [phone] LUCIO TAO Dentist: Microbiology Instructor 04/23/2019-Current PHONE: [phone] -[facility] Dentist: Microbiology Instructor [facility] PHONE: [phone] -[facility]- Dentist: Microbiology Instructor [facility] PHONE: [phone] EV[facility] GARCIA Family [facility] Current PHONE: [phone] TIERRA CONRAD Internal Medicine Current PHONE: [phone] TIFFANY Glover MD, SPENCER Brand Marketing Manager/Console Attendant Current PHONE: [phone] MICHELLE SMALLS Family Medicine Current PHONE: Unknown ELEANOR GUAN Nurse Practitioner: Family Current PHONE: [phone] MARGARET CORDERO Internal Medicine Current PHONE: [phone] LESLEY URBAN I. Physician Latex Spooler Current PHONE: Unknown PAGE KELLEY Nurse Harry Current PHONE: Unknown LEXA ONTIVEROS Internal Medicine Current PHONE: [phone] SCOUT GANT Nurse Harry MUNIZ PHONE: [phone] SILVESTRE [facility] Current PHONE: Unknown KEATON [facility] Current PHONE: [phone] AARON COLON Nurse Practitioner Current PHONE: [phone] Branden has no Care Guidelines for this patient. Kuldeep VISIT COUNT (12 MO.) [address] [facility] [place] TOTAL 25 NOTE: Visits indicate total known visits. ED/UCC VISIT TRACKING (12 MO.) 10/14/2023 15:39 [facility] [place] TYPE: Emergency COMPLAINT: - LOW BLOOD PRESSURE 10/05/2023 12:05 [facility] [place] TYPE: Emergency COMPLAINT: - URINE PROBLEM DIAGNOSES: - Allergy status to other drugs, medicaments and biological substances - Hallucinations, unspecified - Hypoglycemia, unspecified - Latex allergy status - Other terminal make up operator (current) drug therapy - Personal history of nicotine dependence - Unspecified atrial fibrillation - Urinary tract infection, site not specified 09/19/2023 09:03 [facility] [place] TYPE: Emergency COMPLAINT: - LEG SWELLING DIAGNOSES: - Allergy status to other drugs, medicaments and biological substances - Body mass index [BMI] 33.0-33.9, adult - Cellulitis of right lower limb - Heart failure, unspecified - Latex allergy status - halfway (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 - Multiple sclerosis - Obesity, unspecified - Other terminal make up operator (current) drug therapy - Unspecified atrial fibrillation 09/13/2023 09:56 [facility] [place] TYPE: Emergency COMPLAINT: - LOW BLOOD PRESSURE DIAGNOSES: - Allergy status to other drugs, medicaments and biological substances - Fall on same level, unspecified, initial encounter - Heart failure, unspecified - Hypotension, unspecified - Latex allergy status - intermediate teacher (current) use of antithrombotics/antiplatelets - Nonspecific low [...] Hypoglycemia, unspecified - Latex allergy status - intermediate teacher (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 - Multiple sclerosis - Obesity, unspecified - Other terminal make up operator (current) drug therapy - Personal history [...] Hypotension, unspecified - Latex allergy status - halfway (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 - Multiple sclerosis [...] failure, unspecified - Latex allergy status - halfway (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 - Multiple sclerosis - Obesity, unspecified - Personal history of nicotine dependence 08/23/2023 17:08 [facility] [place] TYPE: Emergency COMPLAINT: - CATHETER ADJUSTMENT DIAGNOSES: - Allergy status to other drugs, medicaments and biological substances - Body mass index [BMI] 31.0-31.9, adult - Heart failure, unspecified - Latex allergy status - halfway (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 - Multiple sclerosis - Obesity, unspecified - Other shelter (current) drug therapy - Pain due to [...] of indwelling urethral catheter, initial encounter - intermediate teacher (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 - Multiple sclerosis - Obesity, unspecified - Other shelter (current) drug therapy - Other mechanical complication [...] of indwelling urethral catheter, initial encounter - halfway (current) use of antithrombotics/antiplatelets - Multiple sclerosis [...] Hypotension, unspecified - Latex allergy status - intermediate teacher (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 - Obesity, unspecified - Other shelter (current) drug therapy - Personal history of nicotine dependence - Personal history of urinary (tract) infections - Presence of urogenital implants - Unspecified atrial fibrillation 06/28/2023 20:34 [facility] [place] TYPE: Emergency COMPLAINT: - BLOOD PRESSURE PROBLEM DIAGNOSES: - Allergy status to other drugs, medicaments and biological substances - Latex allergy status - intermediate teacher (current) use of antithrombotics/antiplatelets - Nonspecific low [...] unspecified - Latex allergy status - intermediate teacher (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 - Multiple sclerosis - Obesity, unspecified - Other terminal make up operator (current) drug therapy - Personal history [...] failure, unspecified - Latex allergy status - halfway (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 - Multiple sclerosis - Obesity, unspecified - Other terminal make up operator (current) drug therapy - Other specified soft [...] failure, unspecified - Latex allergy status - halfway (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 - Multiple sclerosis - Obesity, unspecified - Other terminal make up operator (current) drug therapy - Other specified soft [...] unspecified - Latex allergy status - intermediate teacher (current) use of antithrombotics/antiplatelets - Multiple sclerosis [...] unspecified - Latex allergy status - intermediate teacher (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 - Obesity, unspecified - Other terminal make up operator (current) drug therapy - Unspecified atrial fibrillation - Urinary tract infection, site not specified - Weakness 03/12/2023 05:35 [facility] [place] TYPE: Emergency COMPLAINT: - BLOOD IN URINE DIAGNOSES: - Allergy status to other drugs, medicaments and biological substances - Gross hematuria - Heart failure, unspecified - Latex allergy status - Multiple sclerosis - Neuromuscular dysfunction of bladder, unspecified - Other terminal make up operator (current) drug therapy - Other postprocedural complications and disorders of genitourinary system - Personal history of nicotine dependence - Unspecified atrial fibrillation 2023 14:36 [facility] [place] TYPE: Emergency COMPLAINT: - FALL DIAGNOSES: - Allergy status to other drugs, medicaments and biological substances - Heart failure, unspecified - Hypoglycemia, unspecified - Latex allergy status - intermediate teacher (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 - Multiple sclerosis - Obesity, unspecified - Other terminal make up operator (current) drug therapy - Personal history of nicotine dependence - Syncope and collapse - Unspecified atrial fibrillation Plus 5 More Visits INPATIENT VISIT TRACKING [...] allergy status - Latex allergy status - halfway (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 - halfway (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 - Multiple sclerosis - Multiple sclerosis - Obesity, unspecified - Obesity, unspecified - Other terminal make up operator (current) drug therapy - Other terminal make up operator (current) drug therapy - Other specified [...] heart failure - Atherosclerotic heart disease of [place] coronary artery without angina pectoris - Bradycardia, unspecified - Chronic kidney disease, stage 3a - Dependence on other enabling machines and devices - Dilated cardiomyopathy - Nonrheumatic aortic (valve) stenosis - Obstructive sleep apnea (adult) (pediatric) - Other cardiomyopathies - Paroxysmal atrial fibrillation - Presence of prosthetic heart valve [email or web address]
[2023-10-14 16:30] LABS: BASOPHILS 0.8 % (0-2); EOSINOPHILS 4.7 % (0-6); HEMATOCRIT 30.3 % (35.0-50.0); HEMOGLOBIN 9.9 g/dL (12.0-18.0); LYMPHOCYTES 17.7 % (24-44); MCHC 32.8 g/dl (30-36); MCV 88.5 fl (81-99); MONOCYTES 14.2 % (0-12); NEUTROPHILS 62.6 % (39-80); PLATELET COUNT 113 K/uL (140-440); RBC 3.43 M/ul (4.3-5.7); RDW 17.6 (10.5-15.0)
[2023-10-14 16:46] LABS: ALBUMIN 3.3 g/dL (3.4-5.0); ALBUMIN/GLOBULIN RATIO 1.14 (1.1-2.4); ANION GAP 11.2 (7-21); BILIRUBIN, TOTAL 0.7 ng/dL (0.2-1.0); BUN/CREATININE RATIO 28.64 (6.0-28.6); CALCIUM 8.2 mg/dL (8.5-10.1); CREATININE, SERUM 1.99 mg/dL (0.70-1.30); POTASSIUM 4.2 mmol/L (3.5-5.1); PROTEIN, TOTAL 6.2 g/dL (6.4-8.2)
[2023-10-14 18:09] VITALS: BP 90/69
== END 2023-10-14 18:09 | disposition home or self-care (01) ==
LOC: ED 15:38
PROVIDERS: Family Medicine
DX: R03.1 Nonspecific low blood-pressure reading (principal); E16.2 Hypoglycemia, unspecified; G35 Multiple sclerosis; E66.9 Obesity, unspecified; I50.9 Heart failure, unspecified; Z87.891 Personal history of nicotine dependence; Z96.641 Presence of right artificial hip joint; Z95.2 Presence of prosthetic heart valve; Z91.040 Latex allergy status; Z88.8 Allergy status to other drugs, medicaments and biological substances; Z79.02 Long term (current) use of antithrombotics/antiplatelets; Z79.899 Other long term (current) drug therapy
CPT/HCPCS: 36415; 80053; 85025; 99284

== ENCOUNTER 2023-11-20 09:56 | Emergency (ER) | payer MEDICARE, OTHER ==
[~2023-11-20 09:56] MED LIST changes: +FUROSEMIDE20 MG PO
--- OUTSIDE RECORDS SUMMARY | 2023-11-20 10:01 | XMS ---
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 CARTER Security Sales Force Administrator Events No recent Security Events currently on file CRITERIA MET - 6 ED Visits in 6 Months CARE PROVIDERS Angi Nielsen Websphere Portal Developer/Principal Mechanical Engineer 10/26/2023-Current PHONE: [phone] LUCIO TAO Dentist: Production Control Clerk 04/23/2019-Current PHONE: [phone] -[facility] Dentist: Production Control Clerk [facility] PHONE: [phone] -[facility]- Dentist: Production Control Clerk [facility] PHONE: [phone] [facility] GARC[facility] Current PHONE: [phone] TIERRA CONRAD Internal Medicine Current PHONE: [phone] TIFFANY Glover MD, SPENCER Websphere Portal Developer/Principal Mechanical Engineer Current PHONE: [phone] MICHELLE SMALLS Family Medicine Current PHONE: Unknown ELEANOR GUAN Nurse Practitioner: Family Current PHONE: [phone] MARGARET CORDERO Internal Medicine Current PHONE: [phone] LESLEY URBAN I. Physician Drywall Carrier Current PHONE: Unknown PAGE KELLEY Nurse Practitioner Current PHONE: Unknown LEXA ONTIVEROS Internal Medicine Current PHONE: [phone] SCOUT GANT Nurse Practitioner Woody MUNIZ PHONE: [phone] SILVESTRE [facility] Current PHONE: Unknown KEATON [facility] Current PHONE: Unknown AARON COLON Nurse Practitioner Current PHONE: [phone] Branden has no Care Guidelines for this patient. Kuldeep VISIT COUNT (12 MO.) [address] [facility] TOTAL 26 NOTE: Visits indicate total known visits. ED/UCC VISIT TRACKING (12 MO.) 11/20/2023 09:57 [facility] [place] TYPE: Emergency COMPLAINT: - FALL 10/18/2023 20:26 [facility] [place] TYPE: Emergency COMPLAINT: - SOB DIAGNOSES: - Allergy status to other drugs, medicaments and biological substances - Encounter for screening for COVID-19 - Heart failure, unspecified - Latex allergy status - long-term (current) use of antithrombotics/antiplatelets - Multiple sclerosis - Obesity, unspecified - Other care home (current) drug therapy - Personal history of nicotine dependence - Presence of aortocoronary bypass graft - Presence of right artificial hip joint - Shortness of breath 10/14/2023 15:39 [facility] [place] TYPE: Emergency COMPLAINT: - LOW BLOOD PRESSURE DIAGNOSES: - Allergy status to other drugs, medicaments and biological substances - Heart failure, unspecified - Hypoglycemia, unspecified - Latex allergy status - roasterman (current) use of antithrombotics/antiplatelets - Multiple sclerosis - Nonspecific low blood-pressure reading - Obesity, unspecified - Other care home (current) drug therapy - Personal history of nicotine dependence - Presence of prosthetic heart valve - Presence of right artificial hip joint 10/05/2023 12:05 [facility] [place] TYPE: Emergency COMPLAINT: - URINE PROBLEM DIAGNOSES: - Allergy status to other drugs, medicaments and biological substances - Hallucinations, unspecified - Hypoglycemia, unspecified - Latex allergy status - Other dedicated intermodal truck driver (current) drug therapy - Personal history of [...] failure, unspecified - Latex allergy status - roasterman (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 - Multiple sclerosis - Obesity, unspecified - Other dedicated intermodal truck driver (current) drug therapy - Unspecified atrial fibrillation 09/13/2023 09:56 [facility] [place] TYPE: Emergency COMPLAINT: - LOW BLOOD PRESSURE DIAGNOSES: - Allergy status to other drugs, medicaments and biological substances - Fall on same level, unspecified, initial encounter - Heart failure, unspecified - Hypotension, unspecified - Latex allergy status - long-term (current) use of antithrombotics/antiplatelets - Nonspecific low blood-pressure reading - Obesity, unspecified - Other care home (current) drug therapy - Personal history [...] Hypoglycemia, unspecified - Latex allergy status - roasterman (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 - Multiple sclerosis - Obesity, unspecified - Other care home (current) drug therapy - Personal history [...] Hypotension, unspecified - Latex allergy status - long-term (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 - Multiple sclerosis - Obesity, unspecified - Other dedicated intermodal truck driver (current) drug therapy - Personal history of nicotine dependence - Unspecified atrial fibrillation 09/01/2023 17:00 [facility] [place] TYPE: Emergency COMPLAINT: - RT SWOLLEN LEG DIAGNOSES: - Allergy status to other drugs, medicaments and biological substances - Body mass index [BMI] 33.0-33.9, adult - Dehydration - Heart failure, unspecified - Latex allergy status - roasterman (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 - Multiple sclerosis [...] Multiple sclerosis - Obesity, unspecified - Other dedicated intermodal truck driver (current) drug therapy - Pain due to [...] of indwelling urethral catheter, initial encounter - roasterman (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 - Multiple sclerosis - Obesity, unspecified - Other care home (current) drug therapy - Other mechanical complication [...] of indwelling urethral catheter, initial encounter - roasterman (current) use of antithrombotics/antiplatelets - Multiple sclerosis - Obesity, unspecified - Other care home (current) drug therapy - Other medical [...] Hypotension, unspecified - Latex allergy status - roasterman (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 - Obesity, unspecified - Other care home (current) drug therapy - Personal history of nicotine dependence - Personal history of urinary (tract) infections - Presence of urogenital implants - Unspecified atrial fibrillation 06/28/2023 20:34 [facility] [place] TYPE: Emergency COMPLAINT: - BLOOD PRESSURE PROBLEM DIAGNOSES: - Allergy status to other drugs, medicaments and biological substances - Latex allergy status - long-term (current) use of antithrombotics/antiplatelets - Nonspecific low blood-pressure reading - Other care home (current) drug therapy - Personal history [...] Multiple sclerosis - Obesity, unspecified - Other care home (current) drug therapy - Personal history [...] Multiple sclerosis - Obesity, unspecified - Other dedicated intermodal truck driver (current) drug therapy - Other specified soft [...] failure, unspecified - Latex allergy status - roasterman (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 - Multiple sclerosis - Obesity, unspecified - Other dedicated intermodal truck driver (current) drug therapy - Other specified soft [...] failure, unspecified - Latex allergy status - roasterman (current) use of antithrombotics/antiplatelets - Multiple sclerosis - Nonspecific low blood-pressure reading - Obesity, unspecified - Other dedicated intermodal truck driver (current) drug therapy - Personal history of [...] of 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 - Obesity, unspecified - Other care home (current) drug therapy - Unspecified atrial fibrillation - Urinary tract infection, site not specified - Weakness Plus 6 More Visits INPATIENT VISIT TRACKING (12 MO.) [...] allergy status - Latex allergy status - roasterman (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 - roasterman (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 - Multiple sclerosis - Multiple sclerosis - Obesity, unspecified - Obesity, unspecified - Other care home (current) drug therapy - Other dedicated intermodal truck driver (current) drug therapy - Other specified postprocedural [...] - Urinary tract infection, site not specified [email or web address]
[2023-11-20] MEDS ORDERED: LACTATED RINGER'S 1,000 ML IV ONE (10:15)
[2023-11-20 10:19] LABS: BASOPHILS 1.1 % (0-2); EOSINOPHILS 6.2 % (0-6); HEMATOCRIT 32.7 % (35.0-50.0); HEMOGLOBIN 10.6 g/dL (12.0-18.0); LYMPHOCYTES 14.5 % (24-44); MCH 28.6 (27-36); MCHC 32.4 g/dl (30-36); MCV 88.3 fl (81-99); MONOCYTES 8.1 % (0-12); NEUTROPHILS 70.1 % (39-80); PLATELET COUNT 106 K/uL (140-440); RDW 18.6 (10.5-15.0)
[2023-11-20 10:25] LABS: PARTIAL THROMBOPLASTIN TIME 44.4 Sec (22.9-41.3)
[2023-11-20 10:26] LABS: INR 1.67 (0.80-1.30); PROTIME 18.8 Sec (11.2-14.2)
[2023-11-20 10:35] LABS: ALBUMIN 3.4 g/dL (3.4-5.0); ALBUMIN/GLOBULIN RATIO 1.06 (1.1-2.4); ALCOHOL, MEDICAL <3 ng/dL (<3); ALKALINE PHOSPHATASE 97 U/L (46-116); ALT (SGPT) 15 U/L (14-59); ANION GAP 13.7 (7-21); AST (SGOT) 13 U/L (15-37); BILIRUBIN, TOTAL 0.6 ng/dL (0.2-1.0); BUN/CREATININE RATIO 27.81 (6.0-28.6); CALCIUM 8.5 mg/dL (8.5-10.1); CARBON DIOXIDE 24 mmol/L (21-32); CHLORIDE 108 mmol/L (98-107); CREATININE, SERUM 1.69 mg/dL (0.70-1.30); GLOMERULAR FILTRATION RATE,EST 43 mL/min (>60); POTASSIUM 3.7 mmol/L (3.5-5.1); PROTEIN, TOTAL 6.6 g/dL (6.4-8.2); UREA NITROGEN 47 mg/dL (7-18)
[2023-11-20 10:54] LABS: ABO A; ANTIBODY SCREEN NEGATIVE; RH POSITIVE
[2023-11-20 11:09] LABS: AMPHETAMINES, URINE NEGATIVE (NEGATIVE); BARBITURATES, URINE NEGATIVE (NEGATIVE); BENZODIAZEPINE, URINE NEGATIVE (NEGATIVE); BUPRENORPHINE, URINE NEGATIVE (NEGATIVE); CANNABINOID, URINE NEGATIVE (NEGATIVE); COCAINE, URINE NEGATIVE (NEGATIVE); ECSTASY, URINE NEGATIVE (NEGATIVE); FENTANYL, URINE NEGATIVE (NEGATIVE); METHADONE, URINE NEGATIVE (NEGATIVE); OPIATES, URINE NEGATIVE (NEGATIVE); OXYCODONE, URINE NEGATIVE (NEGATIVE); PHENCYCLIDINE, URINE NEGATIVE (NEGATIVE)
[2023-11-20] MEDS ORDERED: DEXTROSE 50% 50 ML SYR IV ONE (11:45)
[2023-11-20 12:30] VITALS: BP 97/71
== END 2023-11-20 12:43 | disposition home or self-care (01) ==
LOC: ED 09:56
PROVIDERS: Emergency Medicine
DX: S00.01XA Abrasion of scalp, initial encounter (principal); W07.XXXA Fall from chair, initial encounter; E16.2 Hypoglycemia, unspecified; I50.9 Heart failure, unspecified; I48.91 Unspecified atrial fibrillation; Z86.718 Personal history of other venous thrombosis and embolism; Z98.84 Bariatric surgery status; Z91.040 Latex allergy status; Z88.8 Allergy status to other drugs, medicaments and biological substances; Z79.01 Long term (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; Z79.899 Other long term (current) drug therapy
CPT/HCPCS: 36415; 70450; 72125; 80053; 80307; 85025; 85610; 85730; 86850; 86900; 86901; 96374; 99283-25; G0480; J7121

== ENCOUNTER 2023-12-23 15:32 | Emergency (ER) | payer MEDICARE, OTHER ==
[~2023-12-23] VITALS: Ht 177.8 cm; Wt 105.1 kg
--- OUTSIDE RECORDS SUMMARY | 2023-12-23 15:39 | XMS ---
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 CARTER Security Death Claim Examiner Events No recent Security Events currently on file CRITERIA MET - 6 ED Visits in 6 Months - [facility] [place] [facility] - 2 Visits in 30 Days CARE PROVIDERS Angi Nielsen Emergency Service Worker/Stockroom Clerk 10/26/2023-Current PHONE: [phone] LUCIO TAO Dentist: Screen Printing Machine Operator 04/23/2019-Current PHONE: [phone] -, [facility] Dentist: Screen Printing Machine Operator [facility] PHONE: [phone] -[facility]- Dentist: Screen Printing Machine Operator [facility] PHONE: [phone] [facility] GARCIA [facility] Current PHONE: [phone] TIERRA CONRAD Internal Medicine Current PHONE: [phone] TIFFANY Glover MD, SPENCER Emergency Service Worker/Stockroom Clerk Current PHONE: [phone] ELEANOR GUAN Nurse Practitioner: Family Current PHONE: [phone] MARGARET CORDERO Internal Medicine Current PHONE: [phone] LESLEY URBAN I. Physician Internal Security Manager Current PHONE: Unknown PAGE KELLEY Nurse Practitioner Current PHONE: Unknown LEXA ONTIVEROS Internal Medicine Current PHONE: [phone] SCOUT GANT Nurse Harry MUNIZ PHONE: [phone] SILVESTRE [facility] Current PHONE: Unknown [facility] Current PHONE: Unknown AARON COLON Nurse Practitioner Current PHONE: [phone] Branden has no Care Guidelines for this patient. Kuldeep VISIT COUNT (12 MO.) 26 [facility] Garcia TOTAL 26 NOTE: Visits indicate total known visits. ED/UCC VISIT TRACKING (12 MO.) 12/23/2023 15:33 [facility] [place] TYPE: Emergency COMPLAINT: - SOB 12/13/2023 18:41 [facility] [place] TYPE: Emergency COMPLAINT: - FALL DIAGNOSES: - Allergy status to other drugs, medicaments and biological substances - Body mass index [BMI] 33.0-33.9, adult - Fall from moving wheelchair (powered), initial encounter - Heart failure, unspecified - Laceration without foreign body of left elbow, initial encounter - Latex allergy status - [facility] (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 - Multiple sclerosis - Obesity, unspecified - Other watermaster (current) drug therapy - Personal history of nicotine dependence - Unspecified atrial fibrillation 11/20/2023 09:57 [facility] [place] TYPE: Emergency COMPLAINT: - FALL DIAGNOSES: - Abrasion of scalp, initial encounter - Allergy status to other drugs, medicaments and biological substances - Bariatric surgery status - Fall from chair, initial encounter - Heart failure, unspecified - Hypoglycemia, unspecified - Laceration without foreign body of other part of head, initial encounter - Latex allergy status - [facility] (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 - Other group home (current) drug therapy - Personal history of other venous thrombosis and embolism - Unspecified atrial fibrillation 10/18/2023 20:26 [facility] [place] TYPE: Emergency [...] Hypoglycemia, unspecified - Latex allergy status - adjunct faculty for medical terminology (current) use of antithrombotics/antiplatelets - Multiple sclerosis - Nonspecific low blood-pressure reading - Obesity, unspecified - Other watermaster (current) drug therapy - Personal history of nicotine dependence - Presence of prosthetic heart valve - Presence of right artificial hip joint 10/05/2023 12:05 [facility] [place] TYPE: Emergency COMPLAINT: - URINE PROBLEM DIAGNOSES: - Allergy status to other drugs, medicaments and biological substances - Hallucinations, unspecified - Hypoglycemia, unspecified - Latex allergy status - Other group home (current) drug therapy [...] - Unspecified atrial fibrillation 09/13/2023 09:56 [facility] [place] TYPE: Emergency COMPLAINT: - LOW BLOOD PRESSURE DIAGNOSES: - Allergy status to other drugs, medicaments and biological substances - Fall on same level, unspecified, initial encounter - Heart failure, unspecified - Hypotension, unspecified - Latex allergy status - adjunct faculty for medical terminology (current) use of antithrombotics/antiplatelets - Nonspecific low blood-pressure reading - Obesity, unspecified - Other watermaster (current) drug therapy - Personal history of nicotine dependence - Presence of prosthetic heart valve - Presence of right artificial hip joint - Strain of muscle, fascia and tendon at neck level, initial encounter - Strain of muscle, fascia and tendon of lower back, initial encounter 09/12/2023 18:59 [facility] [place] TYPE: Emergency COMPLAINT: - TRAUMA DIAGNOSES: - Allergy status to other drugs, medicaments and biological substances - Bariatric surgery status - Heart failure, unspecified - Hypoglycemia, unspecified - Latex allergy status - adjunct faculty for medical terminology (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 - Multiple sclerosis [...] Hypotension, unspecified - Latex allergy status - [facility] [...] Other group home (current) drug therapy - Pain due to [...] Multiple sclerosis - Obesity, unspecified - Other watermaster (current) drug therapy - Other mechanical complication [...] initial encounter - [facility] (current) use of antithrombotics/antiplatelets - [...] Hypotension, unspecified - Latex allergy status - [facility] (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 - Obesity, unspecified - Other watermaster (current) drug therapy - Personal history of nicotine dependence - Personal history of urinary (tract) infections - Presence of urogenital implants - Unspecified atrial fibrillation 06/28/2023 20:34 [facility] [place] TYPE: Emergency COMPLAINT: - BLOOD PRESSURE PROBLEM DIAGNOSES: - Allergy status to other drugs, medicaments and biological substances - Latex allergy status - [facility] (current) use of antithrombotics/antiplatelets - Nonspecific low blood-pressure reading - Other group home (current) drug therapy [...] group home (current) drug therapy - Other specified soft [...] group home (current) drug therapy - Other specified soft tissue disorders - Pain in right lower leg - Personal history of nicotine dependence - Personal history of other venous thrombosis and embolism - Personal history of pulmonary embolism - Unspecified atrial fibrillation Plus 6 More Visits INPATIENT VISIT TRACKING [...] allergy status - Latex allergy status - adjunct faculty for medical terminology (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 - adjunct faculty for medical terminology (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 - Multiple sclerosis - Multiple sclerosis - Obesity, unspecified - Obesity, unspecified - Other watermaster (current) drug therapy - Other watermaster (current) drug therapy - Other specified postprocedural [...] - Urinary tract infection, site not specified [email or web address]
[2023-12-23] MEDS ORDERED: DALFAMPRIDINE E10 MG PO (15:47)
[2023-12-23] MEDS ORDERED: ACARBOSE50 MG PO (15:50)
[2023-12-23 16:14] LABS: BASOPHILS 0.6 % (0-2); EOSINOPHILS 4.5 % (0-6); HEMATOCRIT 31.9 % (35.0-50.0); HEMOGLOBIN 10.6 g/dL (12.0-18.0); LYMPHOCYTES 15.6 % (24-44); MCH 28.3 (27-36); MCHC 33.3 g/dl (30-36); MCV 85.2 fl (81-99); MONOCYTES 13.6 % (0-12); NEUTROPHILS 65.7 % (39-80); PLATELET COUNT 116 K/uL (140-440); RBC 3.75 M/ul (4.3-5.7); RDW 18.6 (10.5-15.0)
[2023-12-23] MEDS ORDERED: FUROSEMIDE 40 MG/4 ML VIAL IV ONE ×2 (16:30→18:00)
[2023-12-23 16:35] LABS: ALBUMIN 3.3 g/dL (3.4-5.0); ALKALINE PHOSPHATASE 96 U/L (46-116); ALT (SGPT) 15 U/L (14-59); ANION GAP 11.7 (7-21); AST (SGOT) 13 U/L (15-37); BILIRUBIN, TOTAL 0.9 ng/dL (0.2-1.0); BUN/CREATININE RATIO 19.27 (6.0-28.6); CALCIUM 8.9 mg/dL (8.5-10.1); CARBON DIOXIDE 30 mmol/L (21-32); CHLORIDE 102 mmol/L (98-107); CREATININE, SERUM 1.92 mg/dL (0.70-1.30); GLOMERULAR FILTRATION RATE,EST 37 mL/min (>60); MAGNESIUM 2.1 mg/dL (1.8-2.4); POTASSIUM 4.7 mmol/L (3.5-5.1); PROTEIN, TOTAL 6.3 g/dL (6.4-8.2); UREA NITROGEN 37 mg/dL (7-18)
[2023-12-23 18:53] VITALS: BP 112/74
--- NOTE | 2023-12-23 22:12 | EKG ---
[facility] [address] [place] [address] Signed Atrial fibrillation Abnormal ECG When compared with ECG of 18-OCT-2023 20:33, T wave inversion now evident in Inferior leads Confirmed by Alexa Gallardo MD () on 12/23/2023 10:11:53 PM Electronically Signed By: ALEXA GALLARDO MD 12/23/232211 PATIENT NAME: DEBBI CARTER Electrocardiogram DATE OF : 54 PHYSICIAN: ALEXA GALLARDO MD REPORT #: [id number] REPORT IS CONFIDENTIAL AND NOT TO BE RELEASED WITHOUT AUTHORIZATION
== END 2023-12-23 18:53 | disposition home or self-care (01) ==
LOC: ED 15:32
PROVIDERS: Emergency Medicine
DX: I50.9 Heart failure, unspecified (principal); I48.91 Unspecified atrial fibrillation; Z86.718 Personal history of other venous thrombosis and embolism; Z86.711 Personal history of pulmonary embolism; Z98.84 Bariatric surgery status; Z87.891 Personal history of nicotine dependence; Z98.1 Arthrodesis status; Z91.040 Latex allergy status; Z88.8 Allergy status to other drugs, medicaments and biological substances; Z79.01 Long term (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; Z79.899 Other long term (current) drug therapy; R60.0 Localized edema
CPT/HCPCS: 36415; 71045; 80053; 83735; 83880; 84484; 85025; 93005; 93010; 93970; 96374; 96376; 99285-25; J1940

== ENCOUNTER 2023-12-27 09:53 | Emergency (ER) | payer MEDICARE, OTHER ==
[~2023-12-27] VITALS: Ht 177.8 cm; Wt 105.1 kg
[~2023-12-27 09:53] MED LIST changes: +ACARBOSE50 MG PO
--- OUTSIDE RECORDS SUMMARY | 2023-12-27 09:55 | XMS ---
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 Events No recent Security Events currently on file CRITERIA MET - 6 ED Visits in 6 Months - [facility] - 2 Visits in 30 Days CARE PROVIDERS Angi Nielsen Buffer Nickel/Rug Hooker Hand 10/26/2023-Current PHONE: [phone] LUCIO TAO Dentist: Small Business Director 04/23/2019-Current PHONE: [phone] -, [facility] Dentist: Small Business Director [facility] PHONE: [phone] -[facility]- Dentist: Small Business Director Current [facility] PHONE: [phone] [facility] GARCIA [facility] Current PHONE: [phone] TIERRA CONRAD Internal Medicine Current PHONE: [phone] TIFFANY Glover MD, SPENCER Buffer Nickel/Rug Hooker Hand Current PHONE: [phone] ELEANOR GUAN Nurse Practitioner: Family Current PHONE: [phone] MARGARET CORDERO Internal Medicine Current PHONE: [phone] LESLEY URBAN I. Physician Web Ui Developer Current PHONE: Unknown PAGE KELLEY Nurse Practitioner Current PHONE: Unknown LEXA ONTIVEROS Internal Medicine Current PHONE: [phone] SCOUT GANT Nurse Harry MUNIZ PHONE: [phone] SIL[facility]RE [facility] Current PHONE: [facility] Current PHONE: Unknown AARON COLON Nurse Practitioner Current PHONE: [phone] Branden has no Care Guidelines for this patient. Kuldeep VISIT COUNT (12 MO.) 27 D[facility] Garcia TOTAL 27 NOTE: Visits indicate total known visits. ED/UCC VISIT TRACKING (12 MO.) 12/27/2023 09:54 [facility] [place] TYPE: Emergency COMPLAINT: - BLOOD PRESSURE PROBLEM 12/23/2023 15:33 [facility] [place] TYPE: Emergency COMPLAINT: - SOB DIAGNOSES: - Allergy status to other drugs, medicaments and biological substances - Arthrodesis status - Bariatric surgery status - Heart failure, unspecified - Latex allergy status - care home (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 - Obesity, unspecified - Other usp (current) drug therapy - Personal history of nicotine dependence - Personal history of other venous thrombosis and embolism - Personal history of pulmonary embolism - Shortness of breath - Unspecified atrial fibrillation 12/13/2023 18:41 [facility] [place] TYPE: Emergency COMPLAINT: - FALL DIAGNOSES: - Allergy status to other drugs, medicaments and biological substances - Body mass index [BMI] 33.0-33.9, adult - Fall from moving wheelchair (powered), initial encounter - Heart failure, unspecified - Laceration without foreign body of left elbow, initial encounter - Latex allergy status - care home [...] initial encounter - Latex allergy status - long term care administrator (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 - Other usp (current) drug therapy - Personal history of [...] Hypoglycemia, unspecified - Latex allergy status - long term care administrator (current) use of antithrombotics/antiplatelets - Multiple sclerosis - Nonspecific low blood-pressure reading - Obesity, unspecified - Other intermediate manager (current) drug therapy - Personal history of nicotine dependence - Presence of prosthetic heart valve - Presence of right artificial hip joint 10/05/2023 12:05 [facility] [place] TYPE: Emergency COMPLAINT: - URINE PROBLEM DIAGNOSES: - Allergy status to other drugs, medicaments and biological substances - Hallucinations, unspecified - Hypoglycemia, unspecified - Latex allergy status - Other usp (current) drug therapy - Personal history of [...] Multiple sclerosis - Obesity, unspecified - Other usp (current) drug therapy - Unspecified atrial fibrillation 09/13/2023 09:56 [facility] [place] TYPE: Emergency COMPLAINT: - LOW BLOOD PRESSURE DIAGNOSES: - Allergy status to other drugs, medicaments and biological substances - Fall on same level, unspecified, initial encounter - Heart failure, unspecified - Hypotension, unspecified - Latex allergy status - care home (current) use of antithrombotics/antiplatelets - Nonspecific low blood-pressure reading - Obesity, unspecified - Other usp (current) drug therapy - Personal history of [...] Hypoglycemia, unspecified - Latex allergy status - long term care administrator (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 - Multiple sclerosis [...] Hypotension, unspecified - Latex allergy status - care home (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 - Multiple sclerosis - Obesity, unspecified - Other usp (current) drug therapy - Personal history of nicotine dependence - Unspecified atrial fibrillation 09/01/2023 17:00 [facility] [place] TYPE: Emergency COMPLAINT: - RT SWOLLEN LEG DIAGNOSES: - Allergy status to other drugs, medicaments and biological substances - Body mass index [BMI] 33.0-33.9, adult - Dehydration - Heart failure, unspecified - Latex allergy status - long term care administrator (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 - Multiple sclerosis - Obesity, unspecified - Personal history of nicotine dependence 08/23/2023 17:08 [facility] [place] TYPE: Emergency COMPLAINT: - CATHETER ADJUSTMENT DIAGNOSES: - Allergy status to other drugs, medicaments and biological substances - Body mass index [BMI] 31.0-31.9, adult - Heart failure, unspecified - Latex allergy status - long term care administrator (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 - Multiple sclerosis - Obesity, unspecified - Other intermediate manager (current) drug therapy - Pain due to [...] of indwelling urethral catheter, initial encounter - long term care administrator (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 - Multiple sclerosis - Obesity, unspecified - Other intermediate manager (current) drug therapy - Other mechanical complication [...] encounter - care home (current) use of antithrombotics/antiplatelets - Multiple sclerosis - Obesity, unspecified - Other usp (current) drug therapy - Other medical procedures [...] Hypotension, unspecified - Latex allergy status - care home (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 - Obesity, [...] biological substances - Latex allergy status - long term care administrator (current) use of antithrombotics/antiplatelets - Nonspecific low blood-pressure reading - Other usp (current) drug therapy - Personal history of [...] Multiple sclerosis - Obesity, unspecified - Other usp (current) drug therapy - Personal history of [...] failure, unspecified - Latex allergy status - long term care administrator (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 - Multiple sclerosis - Obesity, unspecified - Other intermediate manager (current) drug therapy - Other specified soft tissue disorders - Pain in right lower leg - Personal history of nicotine dependence - Unspecified atrial fibrillation Plus 7 More Visits INPATIENT VISIT TRACKING (12 MO.) [...] allergy status - Latex allergy status - long term care administrator (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 - long term care administrator (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 - Multiple sclerosis - Multiple sclerosis - Obesity, unspecified - Obesity, unspecified - Other usp (current) drug therapy - Other intermediate manager (current) drug therapy - Other specified postprocedural [...] - Urinary tract infection, site not specified [email or web address]
[2023-12-27] MEDS ORDERED: SODIUM CHLORIDE 0.9% 1,000 ML IV PRN (10:15)
[2023-12-27 10:18] LABS: BASOPHILS 0.8 % (0-2); HEMOGLOBIN 10.6 g/dL (12.0-18.0); LYMPHOCYTES 17.9 % (24-44); MCH 28.1 (27-36); MCHC 33.1 g/dl (30-36); MCV 84.9 fl (81-99); MONOCYTES 6.1 % (0-12); NEUTROPHILS 69.2 % (39-80); PLATELET COUNT 121 K/uL (140-440); RBC 3.77 M/ul (4.3-5.7); RDW 18.8 (10.5-15.0)
[2023-12-27 10:31] LABS: PARTIAL THROMBOPLASTIN TIME 39.7 Sec (22.9-41.3)
[2023-12-27 10:32] LABS: INR 1.43 (0.80-1.30); PROTIME 16.6 Sec (11.2-14.2)
[2023-12-27 10:43] LABS: ALBUMIN 3.2 g/dL (3.4-5.0); ALKALINE PHOSPHATASE 98 U/L (46-116); ALT (SGPT) 18 U/L (14-59); ANION GAP 10.4 (7-21); AST (SGOT) 16 U/L (15-37); BILIRUBIN, TOTAL 0.8 ng/dL (0.2-1.0); BUN/CREATININE RATIO 22.05 (6.0-28.6); CALCIUM 9.1 mg/dL (8.5-10.1); CARBON DIOXIDE 29 mmol/L (21-32); CHLORIDE 104 mmol/L (98-107); CREATININE, SERUM 2.04 mg/dL (0.70-1.30); GLOMERULAR FILTRATION RATE,EST 34 mL/min (>60); MAGNESIUM 2.2 mg/dL (1.8-2.4); POTASSIUM 4.4 mmol/L (3.5-5.1); PROTEIN, TOTAL 6.4 g/dL (6.4-8.2); UREA NITROGEN 45 mg/dL (7-18)
[2023-12-27 12:50] VITALS: BP 106/72
--- NOTE | 2023-12-27 17:46 | EKG ---
[facility] [address] [place], [place] [address] Signed Atrial fibrillation Low voltage QRS Cannot rule out Anterior infarct , age undetermined Abnormal ECG When compared with ECG of 23-DEC-2023 16:03, Nonspecific T wave abnormality has replaced inverted T waves in Inferior leads Confirmed by Alannah Ramírez MD ([id number]) on 12/27/2023 5:45:57 PM Electronically Signed By: ALANNAH RAMÍREZ DO 12/27/23 1746 PATIENT NAME: DEBBI CARTER Electrocardiogram DATE OF : 54 PHYSICIAN: ALANNAH RAMÍREZ DO REPORT #: [id number] REPORT IS CONFIDENTIAL AND NOT TO BE RELEASED WITHOUT AUTHORIZATION
== END 2023-12-27 13:20 | disposition home or self-care (01) ==
LOC: ED 09:53
PROVIDERS: Emergency Medicine
DX: I95.9 Hypotension, unspecified (principal); F03.90 Unspecified dementia, unspecified severity, without behavioral disturbance, psychotic disturbance, mood disturbance, and anxiety; I48.91 Unspecified atrial fibrillation; I50.9 Heart failure, unspecified; E66.9 Obesity, unspecified; Z68.33 Body mass index [BMI] 33.0-33.9, adult; Z86.718 Personal history of other venous thrombosis and embolism; Z87.891 Personal history of nicotine dependence; Z98.84 Bariatric surgery status; Z95.2 Presence of prosthetic heart valve; Z91.040 Latex allergy status; Z88.8 Allergy status to other drugs, medicaments and biological substances; Z79.01 Long term (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; Z79.899 Other long term (current) drug therapy
CPT/HCPCS: 36415; 71045; 80053; 83735; 83880; 84484; 85025; 85610; 85730; 93005; 93010; 96360; 96361; 99284-25; J7030

== ENCOUNTER 2024-01-15 21:40 | Emergency (ER) | payer MEDICARE, OTHER ==
[~2024-01-15] VITALS: Ht 177.8 cm; Wt 110.9 kg
--- OUTSIDE RECORDS SUMMARY | 2024-01-15 21:47 | XMS ---
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 CARTER Security Slide Developer Events No recent Security Events currently on file CRITERIA MET - 6 ED Visits in 6 Months - [facility] - 2 Visits in 30 Days CARE PROVIDERS Angi Nielsen Barn And Property Manager/Logistic Specialist 10/26/2023-Current PHONE: [phone] LUCIO TAO Dentist: Aircraft Communicator 04/23/2019-Current PHONE: [phone] -, [facility] Dentist: Aircraft Communicator [facility] PHONE: [phone] -[facility]- Dentist: Aircraft Communicator Current [facility] Dental [facility] PHONE: [phone] [facility] GARCIA Family [facility] Current PHONE: [phone] TIERRA CONRAD Internal Medicine Current PHONE: [phone] TIFFANY Glover MD, SPENCER Barn And Property Manager/Logistic Specialist Current PHONE: [phone] ELEANOR GUAN Nurse Practitioner: Family Current PHONE: [phone] MARGARET CORDERO Internal Medicine Current PHONE: [phone] LESLEY URBAN I. Physician Corporate Bond Trader Current PHONE: Unknown PAGE KELLEY Nurse Practitioner Current PHONE: Unknown LEXA ONTIVEROS Internal Medicine Current PHONE: [phone] SCOUT GANT Nurse Practitioner Woody MUNIZ PHONE: [phone] SILVESTRE [facility] Nursing [facility] Current PHONE: Unknown [facility] Current PHONE: Unknown AARON COLON Nurse Practitioner Current PHONE: [phone] Branden has no Care Guidelines for this patient. Kuldeep VISIT COUNT (12 MO.) 27 D[facility] Monet [facility] TOTAL 28 NOTE: Visits indicate total known visits. ED/UCC VISIT TRACKING (12 MO.) 01/15/2024 21:41 [facility] [place] TYPE: Emergency COMPLAINT: - SOB 01/05/2024 10:53 [facility] [place] TYPE: Emergency DIAGNOSES: - Hypoglycemia, unspecified - LOW BLOOD SUGAR 12/27/2023 09:54 [facility] [place] TYPE: Emergency COMPLAINT: - BLOOD PRESSURE PROBLEM DIAGNOSES: - Allergy status to other drugs, medicaments and biological substances - Bariatric surgery status - Body mass index [BMI] 33.0-33.9, adult - Heart failure, unspecified - Hypotension, unspecified - Latex allergy status - truck terminal manager (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 - Obesity, unspecified - Other truck terminal manager (current) drug therapy - Personal history of nicotine dependence - Personal history of other venous thrombosis and embolism - Presence of prosthetic heart valve - Unspecified atrial fibrillation - Unspecified dementia, unspecified severity, without behavioral disturbance, psychotic disturbance, mood disturbance, and anxiety 12/23/2023 15:33 [facility] [place] TYPE: Emergency COMPLAINT: - SOB DIAGNOSES: - Allergy status to other drugs, medicaments and biological substances - Arthrodesis status - Bariatric surgery status - Heart failure, unspecified - Latex allergy status - Localized edema - halfway (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 - Obesity, unspecified - Other truck terminal manager (current) drug therapy - Personal history [...] initial encounter - Latex allergy status - truck terminal manager (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 - Multiple sclerosis - Obesity, unspecified - Other fci (current) drug therapy - Personal history of [...] initial encounter - Latex allergy status - truck terminal manager (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 - Other truck terminal manager (current) drug therapy - Personal history of other venous thrombosis and embolism - Unspecified atrial fibrillation 10/18/2023 20:26 [facility] [place] TYPE: Emergency COMPLAINT: - SOB DIAGNOSES: - Allergy status to other drugs, medicaments and biological substances - Encounter for screening for COVID-19 - Heart failure, unspecified - Latex allergy status - halfway (current) use of antithrombotics/antiplatelets - Multiple sclerosis - Obesity, unspecified - Other truck terminal manager (current) drug therapy - Personal history of nicotine dependence - Presence of aortocoronary bypass graft - Presence of right artificial hip joint - Shortness of breath 10/14/2023 15:39 [facility] [place] TYPE: Emergency COMPLAINT: - LOW BLOOD PRESSURE DIAGNOSES: - Allergy status to other drugs, medicaments and biological substances - Heart failure, unspecified - Hypoglycemia, unspecified - Latex allergy status - truck terminal manager (current) use of antithrombotics/antiplatelets - Multiple sclerosis - Nonspecific low blood-pressure reading - Obesity, unspecified - Other truck terminal manager (current) drug therapy - Personal history of nicotine dependence - Presence of prosthetic heart valve - Presence of right artificial hip joint 10/05/2023 12:05 [facility] [place] TYPE: Emergency COMPLAINT: - URINE PROBLEM DIAGNOSES: - Allergy status to other drugs, medicaments and biological substances - Hallucinations, unspecified - Hypoglycemia, unspecified - Latex allergy status - Other fci (current) drug therapy - Personal history of [...] Multiple sclerosis - Obesity, unspecified - Other fci (current) drug therapy - Unspecified atrial fibrillation 09/13/2023 09:56 [facility] [place] TYPE: Emergency COMPLAINT: - LOW BLOOD PRESSURE DIAGNOSES: - Allergy status to other drugs, medicaments and biological substances - Fall on same level, unspecified, initial encounter - Heart failure, unspecified - Hypotension, unspecified - Latex allergy status - truck terminal manager (current) use of antithrombotics/antiplatelets - Nonspecific low blood-pressure reading - Obesity, unspecified - Other truck terminal manager (current) drug therapy - Personal history [...] Hypoglycemia, unspecified - Latex allergy status - truck terminal manager (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 - Multiple sclerosis - Obesity, unspecified - Other fci (current) drug therapy - Personal history of [...] Multiple sclerosis - Obesity, unspecified - Other fci (current) drug therapy - Personal history of nicotine dependence - Unspecified atrial fibrillation 09/01/2023 17:00 [facility] [place] TYPE: Emergency COMPLAINT: - RT SWOLLEN LEG DIAGNOSES: - Allergy status to other drugs, medicaments and biological substances - Body mass index [BMI] 33.0-33.9, adult - Dehydration - Heart failure, unspecified - Latex allergy status - truck terminal manager (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 - Multiple sclerosis [...] Multiple sclerosis - Obesity, unspecified - Other fci (current) drug therapy - Pain due to [...] of indwelling urethral catheter, initial encounter - truck terminal manager (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 - Multiple sclerosis - Obesity, unspecified - Other truck terminal manager (current) drug therapy - Other mechanical [...] Multiple sclerosis - Obesity, unspecified - Other truck terminal manager (current) drug therapy - Other medical procedures [...] Hypotension, unspecified - Latex allergy status - truck terminal manager (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 - Obesity, unspecified - Other truck terminal manager (current) drug therapy - Personal history of nicotine dependence - Personal history of urinary (tract) infections - Presence of urogenital implants - Unspecified atrial fibrillation 06/28/2023 20:34 [facility] [place] TYPE: Emergency COMPLAINT: - BLOOD PRESSURE PROBLEM DIAGNOSES: - Allergy status to other drugs, medicaments and biological substances - Latex allergy status - halfway (current) use of antithrombotics/antiplatelets - Nonspecific low blood-pressure reading - Other truck terminal manager (current) drug therapy - Personal history of nicotine dependence - Presence of prosthetic heart valve - Presence of right artificial hip joint - Urinary tract infection, site not specified Plus 9 More Visits INPATIENT VISIT TRACKING (12 MO.) [...] - halfway (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 - truck terminal manager (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 - Multiple sclerosis - Multiple sclerosis - Obesity, unspecified - Obesity, unspecified - Other fci (current) drug therapy - Other fci (current) drug therapy - Other specified postprocedural [...] - Urinary tract infection, site not specified [email or web address]
[2024-01-15 21:55] LABS: PH, VENOUS 7.349 (7.31-7.41)
[2024-01-15 21:56] LABS: BASOPHILS 0.7 % (0-2); EOSINOPHILS 4.9 % (0-6); HEMATOCRIT 31.1 % (35.0-50.0); HEMOGLOBIN 10.2 g/dL (12.0-18.0); LYMPHOCYTES 11.1 % (24-44); MCH 28.3 (27-36); MCHC 32.9 g/dl (30-36); MCV 85.8 fl (81-99); MONOCYTES 9.2 % (0-12); NEUTROPHILS 74.1 % (39-80); PLATELET COUNT 121 K/uL (140-440); RBC 3.63 M/ul (4.3-5.7); RDW 18.4 (10.5-15.0)
[2024-01-15] MEDS ORDERED: ALBUMIN HUMAN 25% 100 ML BTL IV ONE (22:00)
[2024-01-15] MEDS ORDERED: FUROSEMIDE 40 MG/4 ML VIAL IV ONE (22:00)
[2024-01-15] MEDS ORDERED: SODIUM CHLORIDE 0.9% 500 ML IV PRN (22:00)
[2024-01-15 22:21] LABS: ALBUMIN 3.2 g/dL (3.4-5.0); ALBUMIN/GLOBULIN RATIO 0.97 (1.1-2.4); BILIRUBIN, TOTAL 0.6 ng/dL (0.2-1.0); BUN/CREATININE RATIO 22.15 (6.0-28.6); CALCIUM 8.7 mg/dL (8.5-10.1); CREATININE, SERUM 1.58 mg/dL (0.70-1.30); PROTEIN, TOTAL 6.5 g/dL (6.4-8.2)
[2024-01-16 07:53] VITALS: BP 120/77
--- NOTE | 2024-01-16 20:32 | EKG ---
[facility] [address] [place] [address] Signed Atrial fibrillation with slow ventricular response Possible Anterior infarct (cited on or before 27-DEC-2023) Abnormal ECG When compared with ECG of 27-DEC-2023 10:24, Vent. rate has decreased Confirmed by Penelope Tinajero MD ([id number]) on 01/16/2024 8:32:10 PM Electronically Signed By: PENELOPE TINAJERO MD 01/16/242031 PATIENT NAME: DEBBI CARTER Electrocardiogram DATE OF : 54 PHYSICIAN: PENELOPE TINAJERO MD REPORT #: [id number] REPORT IS CONFIDENTIAL AND NOT TO BE RELEASED WITHOUT AUTHORIZATION
== END 2024-01-16 08:20 | disposition home or self-care (01) ==
LOC: ED 21:40
PROVIDERS: Family Medicine
DX: I50.9 Heart failure, unspecified (principal); E66.9 Obesity, unspecified; G35 Multiple sclerosis; Z87.891 Personal history of nicotine dependence; Z96.641 Presence of right artificial hip joint; Z91.040 Latex allergy status; Z88.8 Allergy status to other drugs, medicaments and biological substances; Z79.02 Long term (current) use of antithrombotics/antiplatelets; Z79.899 Other long term (current) drug therapy
CPT/HCPCS: 36415; 71045; 80053; 82803; 83880; 85025; 93005; 93010; 96374; 96375; 99285-25; J1940; J7040; P9047

== ENCOUNTER 2024-03-08 22:45 | Emergency (ER) | payer MEDICARE, OTHER ==
[~2024-03-08] VITALS: Ht 177.8 cm; Wt 96.5 kg
--- OUTSIDE RECORDS SUMMARY | ~2024-03-08 | XMS | Continuity of Care Document ---
Demographics + + + | Address | [address] | | | [place] [address] | + + + | Preferred Language | Unknown | + + + | Marital Status | Unknown | + + + | Scientologist Affiliation | Unknown | + + + | Race | White | + + + | Ethnic Group | Not or | + + + Author + + + | Author | [facility] | + + + | Organization | [facility] | + + + | Address | [address] | | | [place] [address] | + + + | Phone | | + + + Care Team Providers + + + + | Care Management Consultant Name | Role | Phone | + + + + Unavailable | Unavailable | + + + + Allergies No information. Encounters No information. Functional Status No information. Immunizations No information. Medications No information. Problems No information. Procedures No information. Results/Labs +--------+--------+ +---------+--------+---------+ | test | date | facility | value | unit | notes | +--------+--------+ +---------+--------+---------+ + + | Result panel 1 | + + + + + +-------+---------+ + | POC | 2024-02-09 | [facility] | 108 | mg/dl | (missing) | | [email or web address]. | 10:16 | [facility] | | | | | QN (MG/DL) | | [facility] | | | [facility] | | | [facility] | | | | + + + +-------+---------+ + Social History +--------+ + + | date | description | facility | +--------+ + + Vital Signs No information."
--- OUTSIDE RECORDS SUMMARY | 2024-03-08 22:47 | XMS ---
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 - 2 Visits in 30 Days CARE PROVIDERS Angi Nielsen Radio Interference Supervisor/Grinder Operator Surface Tool 02/25/2024-Current PHONE: [phone] LUCIO TAO Dentist: Oracle Obiee Developer 04/23/2019-Current PHONE: [phone] -, [facility] Dentist: Oracle Obiee Developer [facility] PHONE: [phone] -[facility]- Dentist: Oracle Obiee Developer [facility] PHONE: [phone] [facility] GARCIA Family Medicine Current PHONE: [phone] TIERRA CONRAD Internal Medicine Current PHONE: [phone] TIFFANY Glover MD, SPENCER Radio Interference Supervisor/Grinder Operator Surface Tool Current PHONE: [phone] ELEANOR GUAN Nurse Practitioner: Family Current PHONE: [phone] MARGARET CORDERO Internal Medicine Current PHONE: [phone] LESLEY URBAN I. Physician Molding Associate Current PHONE: Unknown PAGE KELLEY Nurse Practitioner Current PHONE: Unknown LEXA ONTIVEROS Internal Medicine Current PHONE: [phone] SCOUT GANT Nurse Harry MUNIZ PHONE: [phone] SILVESTRE [facility] Nursing [facility] Current PHONE: Unknown [facility] Current PHONE: Unknown AARON COLON Nurse Practitioner Current PHONE: [phone] Branden has no Care Guidelines for this patient. Kuldeep VISIT COUNT (12 MO.) 27 DIONI Monet [facility] TOTAL 28 NOTE: Visits indicate total known visits. ED/UCC VISIT TRACKING (12 MO.) 03/08/2024 22:46 [facility] [place] TYPE: Emergency COMPLAINT: - LOW BP SHALLOW BREATHING 02/11/2024 12:50 [facility] [place] TYPE: Emergency COMPLAINT: - RIGHT SIDE PAIN DIAGNOSES: - Anorexia - Heart failure, unspecified - Latex allergy status - superintendent container terminal (current) use of antithrombotics/antiplatelets - Multiple sclerosis - Nausea - Obesity, unspecified - Other superintendent container terminal (current) drug therapy - Personal history of nicotine dependence - Presence of right artificial hip joint - Right lower quadrant pain - Urinary tract infection, site not specified 01/15/2024 21:41 [facility] [place] TYPE: Emergency COMPLAINT: - SOB DIAGNOSES: - Allergy status to other drugs, medicaments and biological substances - Heart failure, unspecified - Latex allergy status - prison (current) use of antithrombotics/antiplatelets - Multiple sclerosis - Obesity, unspecified - Other care home (current) drug therapy - Personal history of nicotine dependence - Presence of right artificial hip joint - Shortness of breath 01/05/2024 10:53 [facility] [place] TYPE: Emergency DIAGNOSES: - Hypoglycemia, unspecified - LOW BLOOD SUGAR 12/27/2023 09:[address] [facility] [place] TYPE: Emergency COMPLAINT: - BLOOD PRESSURE PROBLEM DIAGNOSES: - Allergy status to other drugs, medicaments and biological substances - Bariatric surgery status - Body mass index [BMI] 33.0-33.9, adult - Heart failure, unspecified - Hypotension, unspecified - Latex allergy status - prison (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 - Obesity, unspecified - Other superintendent container terminal (current) drug therapy - Personal history of [...] Latex allergy status - Localized edema - prison (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 - Obesity, unspecified - Other superintendent container terminal (current) drug therapy - Personal history of [...] initial encounter - Latex allergy status - prison (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 - Multiple sclerosis - Obesity, unspecified - Other superintendent container terminal (current) drug therapy - Personal history of [...] initial encounter - Latex allergy status - prison (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 - Other superintendent container terminal (current) drug therapy - Personal history of other venous thrombosis and embolism - Unspecified atrial fibrillation 10/18/2023 20:26 [facility] [place] TYPE: Emergency COMPLAINT: - SOB DIAGNOSES: - Allergy status to other drugs, medicaments and biological substances - Encounter for screening for COVID-19 - Heart failure, unspecified - Latex allergy status - superintendent container terminal (current) use of antithrombotics/antiplatelets - Multiple sclerosis [...] Hypoglycemia, unspecified - Latex allergy status - prison (current) use of antithrombotics/antiplatelets - Multiple sclerosis [...] unspecified - Latex allergy status - Other care home (current) drug therapy [...] failure, unspecified - Latex allergy status - prison (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 - Multiple sclerosis [...] Hypotension, unspecified - Latex allergy status - superintendent container terminal (current) use of antithrombotics/antiplatelets - Nonspecific low [...] Hypoglycemia, unspecified - Latex allergy status - superintendent container terminal (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 - Multiple sclerosis [...] Hypotension, unspecified - Latex allergy status - superintendent container terminal (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 - Multiple sclerosis [...] failure, unspecified - Latex allergy status - prison (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 - Multiple sclerosis - Obesity, unspecified - Personal history of nicotine dependence 08/23/2023 17:08 [facility] [place] TYPE: Emergency COMPLAINT: - CATHETER ADJUSTMENT DIAGNOSES: - Allergy status to other drugs, medicaments and biological substances - Body mass index [BMI] 31.0-31.9, adult - Heart failure, unspecified - Latex allergy status - prison (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 - Multiple sclerosis - Obesity, unspecified - Other care home (current) drug therapy - Pain due [...] of indwelling urethral catheter, initial encounter - prison (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 - Multiple sclerosis - Obesity, unspecified - Other superintendent container terminal (current) drug therapy - Other mechanical complication [...] of indwelling urethral catheter, initial encounter - superintendent container terminal (current) use of antithrombotics/antiplatelets - Multiple sclerosis - Obesity, unspecified - Other care home (current) drug therapy - Other medical procedures as the cause of abnormal reaction of the patient, or of later complication, without mention of misadventure at the time of the procedure - Personal history of nicotine dependence - Presence of right artificial hip joint - Weakness Plus 8 More Visits INPATIENT VISIT TRACKING (12 MO.) [...] allergy status - Latex allergy status - prison (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 - superintendent container terminal (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 - Multiple sclerosis - Multiple sclerosis - Obesity, unspecified - Obesity, unspecified - Other care home (current) drug therapy - Other superintendent container terminal (current) drug therapy - Other specified postprocedural [...] - Urinary tract infection, site not specified [email or web address]
[2024-03-08 23:19] LABS: BASOPHILS 0.9 % (0-2); EOSINOPHILS 4.8 % (0-6); HEMATOCRIT 34.9 % (35.0-50.0); HEMOGLOBIN 11.4 g/dL (12.0-18.0); LYMPHOCYTES 18.7 % (24-44); MCH 28.1 (27-36); MCHC 32.5 g/dl (30-36); MCV 86.4 fl (81-99); MONOCYTES 11.9 % (0-12); NEUTROPHILS 63.7 % (39-80); PLATELET COUNT 137 K/uL (140-440); RBC 4.04 M/ul (4.3-5.7); RDW 18.5 (10.5-15.0)
[2024-03-08 23:40] LABS: ALBUMIN 3.4 g/dL (3.4-5.0); ALBUMIN/GLOBULIN RATIO 0.94 (1.1-2.4); ANION GAP 13.7 (7-21); BILIRUBIN, TOTAL 0.7 ng/dL (0.2-1.0); BUN/CREATININE RATIO 25.19 (6.0-28.6); CALCIUM 8.7 mg/dL (8.5-10.1); CREATININE, SERUM 1.31 mg/dL (0.70-1.30); POTASSIUM 3.7 mmol/L (3.5-5.1)
[2024-03-09] MEDS ORDERED: DEXTROSE 50% 50 ML SYR ONE (00:01)
[2024-03-09] MEDS ORDERED: DEXTROSE 50% 50 ML SYR IV ONE (00:15)
[2024-03-09] MEDS ORDERED: LASIX20 MG PO (00:15)
[2024-03-09 00:52] VITALS: BP 121/63
--- NOTE | 2024-03-10 20:58 | EKG ---
[facility] [address] [place] [address] Signed Atrial fibrillation Abnormal ECG When compared with ECG of 15-JAN-2024 21:52, No significant change was found Confirmed by Alannah Ramírez MD ([id number]) on 03/10/2024 8:58:12 PM Electronically Signed By: ALANNAH RAMÍREZ DO 03/10/242057 PATIENT NAME: DEBBI CARTER Electrocardiogram DATE OF : 54 PHYSICIAN: ALANNAH RAMÍREZ DO REPORT #: [id number] REPORT IS CONFIDENTIAL AND NOT TO BE RELEASED WITHOUT AUTHORIZATION
== END 2024-03-09 01:01 | disposition home or self-care (01) ==
LOC: ED 22:45
PROVIDERS: Family Medicine
DX: R60.0 Localized edema (principal); E66.9 Obesity, unspecified; I50.9 Heart failure, unspecified; G35 Multiple sclerosis; Z87.891 Personal history of nicotine dependence; Z96.641 Presence of right artificial hip joint; Z91.040 Latex allergy status; Z88.8 Allergy status to other drugs, medicaments and biological substances; Z79.02 Long term (current) use of antithrombotics/antiplatelets; Z79.899 Other long term (current) drug therapy
CPT/HCPCS: 36415; 71045; 80053; 83880; 85025; 85379; 93005; 93010; 96374; 99285-25

== ENCOUNTER 2024-04-02 17:22 | Emergency (ER) | payer MEDICARE, OTHER ==
[~2024-04-02] VITALS: Ht 177.8 cm; Wt 104.8 kg
--- OUTSIDE RECORDS SUMMARY | ~2024-04-02 | XMS | Continuity of Care Document ---
Demographics + + + | Address | [address] | | | [place] [address] | + + + | Preferred Language | Unknown | + + + | Marital Status | Unknown | + + + | Mu-Ism Affiliation | Unknown | + + + | Race | White | + + + | Ethnic Group | Not or | + + + Author + + + | Author | [facility] | + + + | Organization | [facility] | + + + | Address | [address] | | | [place] [address] | + + + | Phone | | + + + Care Team Providers + + + + | Care Pattern Room Attendant Name | Role | Phone | [...] +-------+---------+ + | POC | 2024-02-09 | [place] | 108 | mg/dl | (missing) | | GLUCOSE.BLD. | 10:16 | [place] | | | | | QN (MG/DL) | | Medical | | | | | | | Center | | | | + + + +-------+---------+ + Social History +--------+ + + | date | description | facility | +--------+ + + Vital Signs No information."
[~2024-04-02 17:22] MED LIST changes: +LASIX20 MG PO
--- OUTSIDE RECORDS SUMMARY | 2024-04-02 17:29 | XMS ---
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 Events No recent Security Events currently on file CRITERIA MET - 6 ED Visits in 6 Months - [facility] - 2 Visits in 30 Days CARE PROVIDERS Angi Nielsen Logistics Account Manager/Independent Living Instructor 02/25/2024-Current PHONE: [phone] LUCIO TAO Dentist: Cancellation Clerk 04/23/2019-Current PHONE: [phone] -, [facility] Dentist: Cancellation Clerk [facility] PHONE: [phone] -[facility]- Dentist: Cancellation Clerk [facility] PHONE: [phone] [facility] Current PHONE: [phone] TIERRA CONRAD Internal Medicine Current PHONE: [phone] TIFFANY Glover MD, SPENCER Logistics Account Manager/Independent Living Instructor Current PHONE: [phone] ELEANOR GUAN Nurse Practitioner: Family Current PHONE: [phone] MARGARET CORDERO Internal Medicine Current PHONE: [phone] LESLEY URBAN I. Physician Securities And Real Estate Director Current PHONE: Unknown PAGE KELLEY Nurse Practitioner Current PHONE: Unknown LEXA ONTIVEROS Internal Medicine Current PHONE: [phone] SCOUT GANT Nurse Harry MUNIZ PHONE: [phone] SILVESTRE [facility] Nursing [facility] Current PHONE: Unknown [facility] Current PHONE: Unknown AARON COLON Nurse Practitioner Current PHONE: [phone] Branden has no Care Guidelines for this patient. Kuldeep VISIT COUNT (12 MO.) 27 [facility] Mon[facility] TOTAL 28 NOTE: Visits indicate total known visits. ED/UCC VISIT TRACKING (12 MO.) 04/02/2024 17:23 [facility] [place] TYPE: Emergency COMPLAINT: - POST OP PROBLEM 03/08/2024 22:46 [facility] [place] TYPE: Emergency COMPLAINT: - LOW BP SHALLOW BREATHING DIAGNOSES: - Allergy status to other drugs, medicaments and biological substances - Heart failure, unspecified - Latex allergy status - Localized edema - long term care phlebotomist (current) use of antithrombotics/antiplatelets - Multiple sclerosis - Obesity, unspecified - Other supervisor long goods (current) drug therapy - Personal history of nicotine dependence - Presence of right artificial hip joint - Shortness of breath 02/11/2024 12:50 [facility] [place] TYPE: Emergency COMPLAINT: - RIGHT SIDE PAIN DIAGNOSES: - Anorexia - Heart failure, unspecified - Latex allergy status - long term care phlebotomist (current) use of antithrombotics/antiplatelets - Multiple sclerosis - Nausea - Obesity, unspecified - Other nursing home (current) drug therapy - Personal history of nicotine dependence - Presence of right artificial hip joint - Right lower quadrant pain - Urinary tract infection, site not specified 01/15/2024 21:41 [facility] [place] TYPE: Emergency COMPLAINT: - SOB DIAGNOSES: - Allergy status to other drugs, medicaments and biological substances - Heart failure, unspecified - Latex allergy status - detention (current) use of antithrombotics/antiplatelets - Multiple sclerosis - Obesity, unspecified - Other nursing home (current) drug therapy - Personal history of nicotine dependence - Presence of right artificial hip joint - Shortness of breath 01/05/2024 10:53 [facility] [place] TYPE: Emergency DIAGNOSES: - Hypoglycemia, unspecified - LOW BLOOD SUGAR 12/27/2023 09:54 [facility] [place] TYPE: Emergency COMPLAINT: - BLOOD PRESSURE PROBLEM DIAGNOSES: - Allergy status to other drugs, medicaments and biological substances - Bariatric surgery status - Body mass index [BMI] 33.0-33.9, adult - Heart failure, unspecified - Hypotension, unspecified - Latex allergy status - long term care phlebotomist (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 - Obesity, unspecified - Other nursing home (current) drug therapy - Personal history [...] Latex allergy status - Localized edema - detention (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 - Obesity, unspecified - Other supervisor long goods (current) drug therapy - Personal history of [...] Latex allergy status - long term care phlebotomist (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 - Multiple sclerosis - Obesity, unspecified - Other nursing home (current) drug therapy - Personal history [...] Latex allergy status - long term care phlebotomist (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 - Other nursing home (current) drug therapy - Personal history of other venous thrombosis and embolism - Unspecified atrial fibrillation 10/18/2023 20:26 [facility] [place] TYPE: Emergency COMPLAINT: - SOB DIAGNOSES: - Allergy status to other drugs, medicaments and biological substances - Encounter for screening for COVID-19 - Heart failure, unspecified - Latex allergy status - long term care phlebotomist (current) use of antithrombotics/antiplatelets - Multiple sclerosis - Obesity, unspecified - Other supervisor long goods (current) drug therapy - Personal history of [...] Latex allergy status - long term care phlebotomist (current) use of antithrombotics/antiplatelets - Multiple sclerosis - Nonspecific low blood-pressure reading - Obesity, unspecified - Other supervisor long goods (current) drug therapy - Personal history of nicotine dependence - Presence of prosthetic heart valve - Presence of right artificial hip joint 10/05/2023 12:05 [facility] [place] TYPE: Emergency COMPLAINT: - URINE PROBLEM DIAGNOSES: - Allergy status to other drugs, medicaments and biological substances - Hallucinations, unspecified - Hypoglycemia, unspecified - Latex allergy status - Other nursing home (current) drug therapy - Personal history [...] failure, unspecified - Latex allergy status - detention (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 - Multiple sclerosis - Obesity, unspecified - Other nursing home (current) drug therapy - Unspecified atrial fibrillation 09/13/2023 09:56 [facility] [place] TYPE: Emergency COMPLAINT: - LOW BLOOD PRESSURE DIAGNOSES: - Allergy status to other drugs, medicaments and biological substances - Fall on same level, unspecified, initial encounter - Heart failure, unspecified - Hypotension, unspecified - Latex allergy status - long term care phlebotomist (current) use of antithrombotics/antiplatelets - Nonspecific low blood-pressure reading - Obesity, unspecified - Other supervisor long goods (current) drug therapy - Personal history of [...] Latex allergy status - long term care phlebotomist (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 - Multiple sclerosis - Obesity, unspecified - Other supervisor long goods (current) drug therapy - Personal history of nicotine dependence - Syncope and collapse - Unspecified atrial fibrillation 09/05/2023 16:38 [facility] [place] TYPE: Emergency COMPLAINT: - ALTERED LOC DIAGNOSES: - Allergy status to other drugs, medicaments and biological substances - Altered mental status, unspecified - Bariatric surgery status - Heart failure, unspecified - Hypoglycemia, unspecified - Hypotension, unspecified - Latex allergy status - detention (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 - Multiple sclerosis - Obesity, unspecified - Other supervisor long goods (current) drug therapy - Personal history of nicotine dependence - Unspecified atrial fibrillation 09/01/2023 17:00 [facility] [place] TYPE: Emergency COMPLAINT: - RT SWOLLEN LEG DIAGNOSES: - Allergy status to other drugs, medicaments and biological substances - Body mass index [BMI] 33.0-33.9, adult - Dehydration - Heart failure, unspecified - Latex allergy status - detention (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 - Multiple sclerosis - Obesity, unspecified - Personal history of nicotine dependence 08/23/2023 17:08 [facility] [place] TYPE: Emergency COMPLAINT: - CATHETER ADJUSTMENT DIAGNOSES: - Allergy status to other drugs, medicaments and biological substances - Body mass index [BMI] 31.0-31.9, adult - Heart failure, unspecified - Latex allergy status - long term care phlebotomist (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 - Multiple sclerosis - Obesity, unspecified - Other nursing home (current) drug therapy - Pain due [...] catheter, initial encounter - long term care phlebotomist (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 - Multiple sclerosis - Obesity, unspecified - Other supervisor long goods (current) drug therapy - Other mechanical complication of other urinary catheter, initial encounter - Pain due to genitourinary prosthetic devices, implants and grafts, initial encounter - Personal history of nicotine dependence - Unspecified atrial fibrillation - Urinary tract infection, site not specified Plus 8 More Visits INPATIENT VISIT TRACKING [...] allergy status - Latex allergy status - detention (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 - long term care phlebotomist (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 - Multiple sclerosis - Multiple sclerosis - Obesity, unspecified - Obesity, unspecified - Other supervisor long goods (current) drug therapy - Other nursing home (current) drug therapy - Other specified postprocedural [...] - Urinary tract infection, site not specified [id number]
[2024-04-02] MEDS ORDERED: TRANEXAMIC ACID 1,000 MG/10 ML AMP TOP ONE (20:30)
[2024-04-02] MEDS ORDERED: LIDOCAINE 2% VISCOUS 6 ML SYR TOP ONE (21:00)
[2024-04-02 21:47] VITALS: BP 135/103
== END 2024-04-02 21:49 | disposition home or self-care (01) ==
LOC: ED 17:22
DX: L76.22 Postprocedural hemorrhage of skin and subcutaneous tissue following other procedure (principal); Y83.8 Other surgical procedures as the cause of abnormal reaction of the patient, or of later complication, without mention of misadventure at the time of the procedure; Z79.01 Long term (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; Z79.899 Other long term (current) drug therapy; Z88.8 Allergy status to other drugs, medicaments and biological substances; Z91.040 Latex allergy status
CPT/HCPCS: 51702; 99283-25

== ENCOUNTER 2024-04-13 20:27 | Emergency (ER) | payer MEDICARE, OTHER ==
[~2024-04-13] VITALS: Ht 177.8 cm; Wt 105.2 kg
--- OUTSIDE RECORDS SUMMARY | ~2024-04-13 | XMS | Continuity of Care Document ---
Demographics + + + | Address | [address] | | | [place] [address] | + + + | Preferred Language | Unknown | + + + | Marital Status | Unknown | + + + | Cheondoism Affiliation | Unknown | + + + | Race | White | + + + | Ethnic Group | Not or | + + + Author + + + | Author | [facility] | + + + | Organization | [facility] | + + + | Address | [address] | | | [place] [address] | + + + | Phone | | + + + Care Team Providers + + + + | Care Hospice Art Therapist Name | Role | Phone | [...] +-------+---------+ + | POC | 2024-02-09 | [place] | 108 | mg/dl | (missing) | | GLUCOSE.BLD. | 10:16 | [place] | | | | | QN (MG/DL) | | Medical | | | | | | | Center | | | | + + + +-------+---------+ + Social History +--------+ + + | date | description | facility | +--------+ + + Vital Signs No information."
--- OUTSIDE RECORDS SUMMARY | 2024-04-13 20:34 | XMS ---
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 PHONE: [phone] -[facility]- Dentist: [employer] Team Member [facility] PHONE: [phone] EV[facility] GARC[facility] Current PHONE: [phone] TIERRA CONRAD Internal Medicine Current PHONE: Unknown TIFFANY Glover MD, SPENCER Professor Of Business Administration/Proposal Review Analyst Current PHONE: [phone] ELEANOR GUAN Nurse Practitioner: Family Current PHONE: [phone] MARGARET CORDERO Internal Medicine Current PHONE: [phone] LESLEY URBAN I. Physician Professional Advisor Current PHONE: Unknown PAGE KELLEY Nurse Harry Current PHONE: Unknown LEXA ONTIVEROS Internal Medicine Current PHONE: [phone] SCOUT GANT Nurse Harry MUNIZ PHONE: [phone] SILVESTRE [facility] Current PHONE: [facility] PHONE: Unknown AARON COLON Nurse Practitioner Current PHONE: [phone] Branden has no Care Guidelines for this patient. Kuldeep VISIT COUNT (12 MO.) 28 DIONI Monet [facility] TOTAL 29 NOTE: Visits indicate total known visits. ED/UCC VISIT TRACKING (12 MO.) 04/13/2024 20:28 [facility] [place] TYPE: Emergency COMPLAINT: - SOB 04/02/2024 17:23 [facility] [place] TYPE: Emergency COMPLAINT: - POST OP PROBLEM DIAGNOSES: - Allergy status to other drugs, medicaments and biological substances - Latex allergy status - parts counterman (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 - Other exterminator termite (current) drug therapy - Other surgical procedures as the cause of abnormal reaction of the patient, or of later complication, without mention of misadventure at the time of the procedure - Postprocedural hemorrhage of skin and subcutaneous tissue following other procedure 03/08/2024 22:46 [facility] [place] TYPE: Emergency COMPLAINT: - LOW BP SHALLOW BREATHING DIAGNOSES: - Allergy status to other drugs, medicaments and biological substances - Heart failure, unspecified - Latex allergy status - Localized edema - skilled nursing (current) use of antithrombotics/antiplatelets [...] - Nausea - Obesity, unspecified - Other retirement (current) [...] Multiple sclerosis - Obesity, unspecified - Other exterminator termite (current) drug therapy - Personal history of nicotine dependence - Presence of right artificial hip joint - Shortness of breath 01/05/2024 10:53 [facility] [place] TYPE: Emergency DIAGNOSES: - Hypoglycemia, unspecified - LOW BLOOD SUGAR 12/27/2023 09:54 [facility] [place] TYPE: Emergency COMPLAINT: - BLOOD PRESSURE PROBLEM DIAGNOSES: - Allergy status to other drugs, medicaments and biological substances - Bariatric surgery status - Body mass index [BMI] 33.0-33.9, adult - Heart failure, unspecified - Hypotension, unspecified - Latex allergy status - skilled nursing (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 - Obesity, unspecified - Other exterminator termite (current) drug therapy - Personal history of nicotine dependence - Personal history of other venous thrombosis and embolism - Presence of prosthetic heart valve - Unspecified atrial fibrillation - Unspecified dementia, unspecified severity, without behavioral disturbance, psychotic disturbance, mood disturbance, and anxiety 12/23/2023 15:33 [facility] [place] TYPE: Emergency COMPLAINT: - SOB DIAGNOSES: - Allergy status to other drugs, medicaments and biological substances - Arthrodesis status - Bariatric surgery status - Heart failure, unspecified - Latex allergy status - Localized edema - skilled nursing (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 - Obesity, unspecified - Other retirement (current) [...] initial encounter - Latex allergy status - parts counterman (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 - Multiple sclerosis [...] initial encounter - Latex allergy status - skilled nursing (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 - Other retirement (current) drug therapy - Personal history of other venous thrombosis and embolism - Unspecified atrial fibrillation 10/18/2023 20:26 [facility] [place] TYPE: Emergency COMPLAINT: - SOB DIAGNOSES: - Allergy status to other drugs, medicaments and biological substances - Encounter for screening for COVID-19 - Heart failure, unspecified - Latex allergy status - parts counterman (current) use of antithrombotics/antiplatelets - Multiple sclerosis - Obesity, unspecified - Other exterminator termite (current) drug therapy - Personal history of nicotine dependence - Presence of aortocoronary bypass graft - Presence of right artificial hip joint - Shortness of breath 10/14/2023 15:39 [facility] [place] TYPE: Emergency COMPLAINT: - LOW BLOOD PRESSURE DIAGNOSES: - Allergy status to other drugs, medicaments and biological substances - Heart failure, unspecified - Hypoglycemia, unspecified - Latex allergy status - skilled nursing (current) use of antithrombotics/antiplatelets - Multiple sclerosis - Nonspecific low blood-pressure reading - Obesity, unspecified - Other retirement (current) drug therapy - Personal history of nicotine dependence - Presence of prosthetic heart valve - Presence of right artificial hip joint 10/05/2023 12:05 [facility] [place] TYPE: Emergency COMPLAINT: - URINE PROBLEM DIAGNOSES: - Allergy status to other drugs, medicaments and biological substances - Hallucinations, unspecified - Hypoglycemia, unspecified - Latex allergy status - Other exterminator termite (current) drug therapy - Personal history of [...] failure, unspecified - Latex allergy status - parts counterman (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 - Multiple sclerosis - Obesity, unspecified - Other retirement (current) drug therapy - Unspecified atrial fibrillation 09/13/2023 09:56 [facility] [place] TYPE: Emergency COMPLAINT: - LOW BLOOD PRESSURE DIAGNOSES: - Allergy status to other drugs, medicaments and biological substances - Fall on same level, unspecified, initial encounter - Heart failure, unspecified - Hypotension, unspecified - Latex allergy status - skilled nursing (current) use of antithrombotics/antiplatelets - Nonspecific low blood-pressure reading - Obesity, unspecified - Other exterminator termite (current) drug therapy - Personal history of [...] Hypoglycemia, unspecified - Latex allergy status - parts counterman (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 - Multiple sclerosis - Obesity, unspecified - Other exterminator termite (current) drug therapy - Personal history of nicotine dependence - Syncope and collapse - Unspecified atrial fibrillation 09/05/2023 16:38 [facility] [place] TYPE: Emergency COMPLAINT: - ALTERED LOC DIAGNOSES: - Allergy status to other drugs, medicaments and biological substances - Altered mental status, unspecified - Bariatric surgery status - Heart failure, unspecified - Hypoglycemia, unspecified - Hypotension, unspecified - Latex allergy status - skilled [...] failure, unspecified - Latex allergy status - parts counterman (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 - Multiple sclerosis - Obesity, unspecified - Other retirement (current) drug therapy - Pain due to genitourinary prosthetic devices, implants and grafts, initial encounter - Personal history of nicotine dependence - Unspecified atrial fibrillation 08/07/2023 00:30 [facility] [place] TYPE: Emergency COMPLAINT: - MEDICAL CLEARANCE Plus 9 More Visits INPATIENT VISIT TRACKING [...] allergy status - Latex allergy status - skilled nursing (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 - skilled nursing (current) use of 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 - Multiple sclerosis - Multiple sclerosis - Obesity, unspecified - Obesity, unspecified - Other exterminator termite (current) drug therapy - Other exterminator termite (current) drug therapy - Other specified postprocedural [...] - Urinary tract infection, site not specified [email or web address]
[2024-04-13 23:03] LABS: ALBUMIN 3.4 g/dL (3.4-5.0); ANION GAP 13.4 (7-21); BILIRUBIN, TOTAL 0.8 ng/dL (0.2-1.0); BUN/CREATININE RATIO 17.57 (6.0-28.6); CALCIUM 8.4 mg/dL (8.5-10.1); CREATININE, SERUM 1.65 mg/dL (0.70-1.30); POTASSIUM 4.4 mmol/L (3.5-5.1); PROTEIN, TOTAL 6.8 g/dL (6.4-8.2)
[2024-04-13 23:44] VITALS: BP 145/90
== END 2024-04-13 23:49 | disposition home or self-care (01) ==
LOC: ED 20:27
PROVIDERS: Family Medicine
DX: I50.9 Heart failure, unspecified (principal); E66.9 Obesity, unspecified; I48.91 Unspecified atrial fibrillation; Z86.711 Personal history of pulmonary embolism; Z86.718 Personal history of other venous thrombosis and embolism; Z87.891 Personal history of nicotine dependence; Z91.040 Latex allergy status; Z88.8 Allergy status to other drugs, medicaments and biological substances; Z79.01 Long term (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; Z79.899 Other long term (current) drug therapy
CPT/HCPCS: 36415; 71045; 80053; 83735; 83880; 99285-25

== ENCOUNTER 2024-05-26 13:58 | Emergency (ER) | payer MEDICARE, OTHER ==
[~2024-05-26] VITALS: Ht 177.8 cm; Wt 104.8 kg
--- OUTSIDE RECORDS SUMMARY | 2024-05-26 14:05 | XMS ---
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 Psychologist Events No recent Security Events currently on file CRITERIA MET - 6 ED Visits in 6 Months CARE PROVIDERS Angi Nielsen Booking Manager/Dairy Technologist 02/25/2024-Current PHONE: [phone] LUCIO TAO Dentist: Reaming Machine Tender 04/23/2019-Current PHONE: [phone] -[facility] Dentist: Reaming Machine Tender [facility] PHONE: [phone] -[place]- Dentist: Reaming Machine Tender [facility] Dental [facility] PHONE: [phone] EV[facility] GARCIA Family Medicine Current PHONE: [phone] TIERRA CONRAD Internal Medicine Current PHONE: Unknown TIFFANY Glover MD, SPENCER Booking Manager/Dairy Technologist Current PHONE: [phone] ELEANOR GUAN Nurse Practitioner: Family Current PHONE: [phone] MARGARET CORDERO Internal Medicine Current PHONE: [phone] LESLEY URBAN I. Physician Industrial Painter Current PHONE: Unknown PAGE KELLEY Nurse Practitioner Current PHONE: Unknown LEXA ONTIVEROS Internal Medicine Current PHONE: [phone] SCOUT GANT Nurse Harry MUNIZ PHONE: [phone] SILVESTRE [facility] Nursing [facility] Current PHONE: Unknown [facility]: Unknown AARON COLON Nurse Practitioner Current PHONE: [phone] Branden has no Care Guidelines for this patient. Kuldeep [facility] (12 MO.) [facility] TOTAL 27 NOTE: Visits indicate total known visits. 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..] Latex allergy status - Localized edema - intermodal truck driver (current) use of antithrombotics/antiplatelets - Multiple sclerosis - Obesity, unspecified - Other half-way (current) drug therapy - Personal history of nicotine dependence - Presence of right artificial hip joint - Shortness of breath 02/11/2024 12:50 [facility] [place] TYPE: Emergency COMPLAINT: - RIGHT SIDE PAIN DIAGNOSES: - Anorexia - Heart failure, unspecified - Latex allergy status - [facility]FP (current) use of antithrombotics/antiplatelets - Multiple sclerosis - Nausea - Obesity, unspecified - Other intermodal truck driver (current) drug therapy - Personal history of nicotine dependence - Presence of right artificial hip joint - Right lower quadrant pain - Urinary tract infection, site not specified 01/15/2024 21:41 [facility] [place] TYPE: Emergency COMPLAINT: - SOB DIAGNOSES: - Allergy status to other drugs, medicaments and biological substances - Heart failure, unspecified - Latex allergy status - [facility]FP (current) use of antithrombotics/antiplatelets - Multiple sclerosis - Obesity, unspecified - Other half-way (current) drug therapy - Personal history of nicotine dependence - Presence of right artificial hip joint - Shortness of breath 01/05/2024 10:53 [facility] [place] TYPE: Emergency DIAGNOSES: - Hypoglycemia, unspecified - LOW BLOOD SUGAR 12/27/2023 09:54 [facility] [place] TYPE: Emergency COMPLAINT: - BLOOD PRESSURE PROBLEM DIAGNOSES: - Allergy status to other drugs, medicaments and biological substances - Bariatric surgery status - Body mass index [BMI] 33.0-33.9, adult - Heart failure, unspecified - Hypotension, unspecified - Latex allergy status - [facility]FP (current) use of anticoagulants - Obesity, unspecified - Other half-way (current) [...] Latex allergy status - Localized edema - MCFP (current) use of anticoagulants - Obesity, unspecified - Other half-way (current) [...] initial encounter - Latex allergy status - [facility]FP (current) use of anticoagulants - Multiple sclerosis - Obesity, unspecified - Other half-way (current) [...] initial encounter - Latex allergy status - [facility]FP (current) use of anticoagulants - Other intermodal truck driver (current) drug therapy - Personal history of other venous thrombosis and embolism - Unspecified atrial fibrillation 10/18/2023 20:26 [facility] [place] TYPE: Emergency COMPLAINT: - SOB DIAGNOSES: - Allergy status to other drugs, medicaments and biological substances - Encounter for screening for COVID-19 - Heart failure, unspecified - Latex allergy status - [facility]FP (current) use of antithrombotics/antiplatelets - Multiple sclerosis - Obesity, unspecified - Other half-way (current) [...] Hypoglycemia, unspecified - Latex allergy status - intermodal truck driver (current) use of antithrombotics/antiplatelets - Multiple sclerosis - Nonspecific low blood-pressure reading - Obesity, unspecified - Other half-way (current) drug therapy - Personal history of nicotine dependence - Presence of prosthetic heart valve - Presence of right artificial hip joint 10/05/2023 12:05 [facility] [place] TYPE: Emergency COMPLAINT: - URINE PROBLEM DIAGNOSES: - Allergy status to other drugs, medicaments and biological substances - Hallucinations, unspecified - Hypoglycemia, unspecified - Latex allergy status - Other intermodal truck driver (current) drug therapy - [...] failure, unspecified - Latex allergy status - [facility]FP (current) use of anticoagulants - Multiple sclerosis - Obesity, unspecified - Other intermodal truck driver (current) drug therapy - Unspecified atrial fibrillation 09/13/2023 09:56 [facility] [place] TYPE: Emergency COMPLAINT: - LOW BLOOD PRESSURE DIAGNOSES: - Allergy status to other drugs, medicaments and biological substances - Fall on same level, unspecified, initial encounter - Heart failure, unspecified - Hypotension, unspecified - Latex allergy status - intermodal truck driver (current) use of antithrombotics/antiplatelets - Nonspecific low blood-pressure reading - Obesity, unspecified - Other half-way (current) [...] Hypoglycemia, unspecified - Latex allergy status - intermodal truck driver (current) 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 of anticoagulants - Multiple sclerosis - Obesity, unspecified - Other intermodal truck driver (current) drug therapy - [...] Hypotension, unspecified - Latex allergy status - MCFP (current) use of anticoagulants - Multiple sclerosis - Obesity, unspecified - Other intermodal truck driver (current) drug therapy - Personal history of nicotine dependence - Unspecified atrial fibrillation 09/01/2023 17:00 [facility] [place] TYPE: Emergency COMPLAINT: - RT SWOLLEN LEG DIAGNOSES: - Allergy status to other drugs, medicaments and biological substances - Body mass index [BMI] 33.0-33.9, adult - Dehydration - Heart failure, unspecified - Latex allergy status - intermodal truck driver (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 - Multiple sclerosis - Obesity, unspecified - Personal history of nicotine dependence 08/23/2023 17:08 [facility] [place] TYPE: Emergency COMPLAINT: - CATHETER ADJUSTMENT DIAGNOSES: - Allergy status to other drugs, medicaments and biological substances - Body mass index [BMI] 31.0-31.9, adult - Heart failure, unspecified - Latex allergy status - intermodal truck driver (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
[2024-05-26] MEDS ORDERED: VALSARTAN40 MG PO (14:50)
[2024-05-26 15:12] LABS: BILIRUBIN, URINE NEGATIVE (negative); BLOOD/HGB, URINE SMALL (Negative); KETONE, URINE NEGATIVE (Negative); LEUK ESTERASE, URINE LARGE (negative); NITRITE, URINE POSITIVE (negative)
[2024-05-26 15:18] LABS: BACTERIA, URINE 3+ /hpf (negative); CASTS, URINE NONE SEEN \\lpf; COLLECTION TYPE, URINE CATH; CRYSTALS, URINE NONE SEEN (0-1+); REFLEX CULTURE, URINE Yes (No); WHITE BLOOD CELLS, URINE 41-50 /HPF (0-5)
[2024-05-26] MEDS ORDERED: CEPHALEXIN MONOHYDRATE 500 MG CAP PO ONE (17:00)
[2024-05-26 17:08] LABS: BASOPHILS 0.7 % (0-2); EOSINOPHILS 4.2 % (0-6); HEMATOCRIT 34.1 % (35.0-50.0); HEMOGLOBIN 11.4 g/dL (12.0-18.0); LYMPHOCYTES 14.3 % (24-44); MCH 29.2 (27-36); MCHC 33.5 g/dl (30-36); MCV 87.1 fl (81-99); MONOCYTES 9.1 % (0-12); NEUTROPHILS 71.7 % (39-80); PLATELET COUNT 129 K/uL (140-440); RBC 3.92 M/ul (4.3-5.7); RDW 19.4 (10.5-15.0)
[2024-05-26 17:30] LABS: ALBUMIN 3.5 g/dL (3.4-5.0); ALBUMIN/GLOBULIN RATIO 1.06 (1.1-2.4); ANION GAP 13.4 (7-21); BILIRUBIN, TOTAL 1.1 mg/dL (0.2-1.0); BUN/CREATININE RATIO 18.95 (6.0-28.6); CALCIUM 8.9 mg/dL (8.5-10.1); CREATININE, SERUM 1.53 mg/dL (0.70-1.30); POTASSIUM 4.4 mmol/L (3.5-5.1); PROTEIN, TOTAL 6.8 g/dL (6.4-8.2)
[2024-05-26] MEDS ORDERED: CEPHALEXIN500 M1 PO (18:01)
[2024-05-26 18:10] VITALS: BP 142/82
--- NOTE | 2024-05-29 19:36 | EKG ---
[facility] [address] [place], [place] [address] Signed Atrial fibrillation Abnormal ECG When compared with ECG of 08-MAR-2024 23:06, No significant change was found Confirmed by Penelope Tinajero MD ([id number]) on 05/29/2024 7:36:43 PM Electronically Signed By: PENELOPE TINAJERO MD 05/29/241935 PATIENT NAME: DEBBI CARTER Electrocardiogram DATE OF : 54 PHYSICIAN: PENELOPE TINAJERO MD REPORT #: [id number] REPORT IS CONFIDENTIAL AND NOT TO BE RELEASED WITHOUT AUTHORIZATION
== END 2024-05-26 18:14 | disposition home or self-care (01) ==
LOC: ED 13:58
PROVIDERS: Emergency Medicine
DX: T83.511A Infection and inflammatory reaction due to indwelling urethral catheter, initial encounter (principal); N39.0 Urinary tract infection, site not specified; I50.9 Heart failure, unspecified; I48.91 Unspecified atrial fibrillation; Z86.718 Personal history of other venous thrombosis and embolism; Z86.711 Personal history of pulmonary embolism; Z87.891 Personal history of nicotine dependence; Z88.8 Allergy status to other drugs, medicaments and biological substances; Z91.040 Latex allergy status; Z79.01 Long term (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; Z79.899 Other long term (current) drug therapy
CPT/HCPCS: 36415; 71045; 80053; 81001; 83880; 84484; 85025; 87088; 93005; 93010; 99284-25; A9270

== ENCOUNTER 2024-07-06 20:06 | Emergency (ER) | payer MEDICARE, OTHER ==
[~2024-07-06] VITALS: Ht 177.8 cm; Wt 108.6 kg
[~2024-07-06 20:06] MED LIST changes: +VALSARTAN40 MG PO
--- OUTSIDE RECORDS SUMMARY | 2024-07-06 20:11 | XMS ---
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 Events No recent Security Events currently on file CRITERIA MET - 6 ED Visits in 6 Months CARE PROVIDERS LUCIO TAO Dentist: Health Plan Advisor 04/23/2019-Current PHONE: [phone] -, [facility] Dentist: Health Plan Advisor [facility] PHONE: [phone] -[place]- Dentist: Health Plan Advisor [facility] PHONE: [phone] EVENS GARCIA [facility] Current PHONE: [phone] TIERRA CONRAD Internal Medicine Current PHONE: Unknown TIFFANY Glover MD, SPENCER Halver Machine Operator/Message And Delivery Service Pricer Current PHONE: [phone] Angi Nielsen Halver Machine Operator/Message And Delivery Service Pricer Current PHONE: [phone] ELEANOR GUAN Nurse Practitioner: Family Current PHONE: [phone] MARGARET CORDERO Internal Medicine Current PHONE: [phone] LESLEY URBAN I. Physician Floor Finisher Helper Current PHONE: Unknown PAGE KELLEY Nurse Practitioner Current PHONE: Unknown LEXA ONTIVEROS Internal Medicine Current PHONE: [phone] SCOUT GANT Nurse Harry MUNIZ PHONE: [phone] SILVESTRE [facility] Current PHONE: Unknown JONELLE PUGH [facility] Current PHONE: Unknown AARON COLON Nurse Practitioner Current PHONE: [phone] Branden has no Care Guidelines for this patient. Kuldeep VISIT COUNT (12 MO.) 23 DIONI [facility] TOTAL 24 NOTE: Visits indicate total known visits. ED/UCC VISIT TRACKING (12 MO.) 07/06/2024 20:07 [facility] [place] TYPE: Emergency COMPLAINT: - AFIB 05/26/2024 13:59 [facility] [place] TYPE: Emergency COMPLAINT: - WEAKNESS DIAGNOSES: - Allergy status to other drugs, medicaments and biological substances - Heart failure, unspecified - Infection and inflammatory reaction due to indwelling urethral catheter, initial encounter - Latex allergy status - jail (current) use of anticoagulants - Other intermediate (current) drug therapy - Personal history of nicotine dependence - Personal history of other venous thrombosis and embolism - Personal history of pulmonary embolism - Unspecified atrial fibrillation - Urinary tract infection, site not specified - Weakness 04/13/2024 20:28 [facility] [place] TYPE: Emergency COMPLAINT: - SOB DIAGNOSES: - Allergy status to other drugs, medicaments and biological substances - Heart failure, unspecified - Latex allergy status - buttermaker continuous churn (current) use of anticoagulants - Obesity, unspecified - Other intermediate (current) drug therapy - Personal history of nicotine dependence - Personal history of other venous thrombosis and embolism - Personal history of pulmonary embolism - Shortness of breath - Unspecified atrial fibrillation 04/02/2024 17:23 [facility] [place] TYPE: Emergency COMPLAINT: - POST OP PROBLEM DIAGNOSES: - Allergy status to other drugs, medicaments and biological substances - Latex allergy status - buttermaker continuous churn (current) use of anticoagulants - Other termite control service representative (current) drug therapy - Other surgical procedures [...] Latex allergy status - Localized edema - jail (current) use of antithrombotics/antiplatelets - Multiple sclerosis - Obesity, unspecified - Other termite control service representative (current) drug therapy - Personal history of nicotine dependence - Presence of right artificial hip joint - Shortness of breath 02/11/2024 12:50 [facility] [place] TYPE: Emergency COMPLAINT: - RIGHT SIDE PAIN DIAGNOSES: - Anorexia - Heart failure, unspecified - Latex allergy status - jail (current) use of antithrombotics/antiplatelets - Multiple sclerosis - Nausea - Obesity, unspecified - Other termite control service representative (current) drug therapy - Personal history of nicotine dependence - Presence of right artificial hip joint - Right lower quadrant pain - Urinary tract infection, site not specified 01/15/2024 21:41 [facility] [place] TYPE: Emergency COMPLAINT: - SOB DIAGNOSES: - Allergy status to other drugs, medicaments and biological substances - Heart failure, unspecified - Latex allergy status - buttermaker continuous churn (current) use of antithrombotics/antiplatelets - Multiple sclerosis - Obesity, unspecified - Other intermediate (current) drug therapy - Personal history of nicotine dependence - Presence of right artificial hip joint - Shortness of breath 01/05/2024 10:53 [facility] [place] TYPE: Emergency DIAGNOSES: - [...] of anticoagulants - Obesity, unspecified - Other termite control service representative (current) drug therapy - Personal history of [...] Latex allergy status - Localized edema - jail (current) use of anticoagulants - Obesity, unspecified - Other intermediate (current) drug therapy - Personal history of [...] initial encounter - Latex allergy status - jail (current) use of anticoagulants - Multiple sclerosis - Obesity, unspecified - Other intermediate (current) drug therapy - Personal history of [...] initial encounter - Latex allergy status - buttermaker continuous churn (current) use of anticoagulants - Other intermediate (current) drug therapy - Personal history of [...] Multiple sclerosis - Obesity, unspecified - Other termite control service representative (current) drug therapy - Personal history of nicotine dependence - Presence of aortocoronary bypass graft - Presence of right artificial hip joint - Shortness of breath 10/14/2023 15:39 [facility] [place] TYPE: Emergency COMPLAINT: - LOW BLOOD PRESSURE DIAGNOSES: - Allergy status to other drugs, medicaments and biological substances - Heart failure, unspecified - Hypoglycemia, unspecified - Latex allergy status - buttermaker continuous churn (current) use of antithrombotics/antiplatelets - Multiple sclerosis - Nonspecific low blood-pressure reading - Obesity, unspecified - Other intermediate (current) drug therapy - Personal history of nicotine dependence - Presence of prosthetic heart valve - Presence of right artificial hip joint 10/05/2023 12:05 [facility] [place] TYPE: Emergency COMPLAINT: - URINE PROBLEM DIAGNOSES: - Allergy status to other drugs, medicaments and biological substances - Hallucinations, unspecified - Hypoglycemia, unspecified - Latex allergy status - Other termite control service representative (current) drug therapy - Personal history of [...] failure, unspecified - Latex allergy status - buttermaker continuous churn (current) use of anticoagulants - Multiple sclerosis - Obesity, unspecified - Other termite control service representative (current) drug therapy - Unspecified atrial fibrillation [...] blood-pressure reading - Obesity, unspecified - Other termite control service representative (current) drug therapy - Personal history of [...] Hypoglycemia, unspecified - Latex allergy status - buttermaker continuous churn (current) use of anticoagulants - Multiple sclerosis - Obesity, unspecified - Other termite control service representative (current) drug therapy - Personal history of nicotine dependence - Syncope and collapse - Unspecified atrial fibrillation 09/05/2023 16:38 [facility] [place] TYPE: Emergency COMPLAINT: - ALTERED LOC DIAGNOSES: - Allergy status to other drugs, medicaments and biological substances - Altered mental status, unspecified - Bariatric surgery status - Heart failure, unspecified - Hypoglycemia, unspecified - Hypotension, unspecified - Latex allergy status - buttermaker continuous churn (current) use of anticoagulants - Multiple sclerosis - Obesity, unspecified - Other termite control service representative (current) drug therapy - Personal history of [...] unspecified - Personal history of nicotine dependence Plus 4 More Visits INPATIENT VISIT TRACKING (12 MO.) [...] allergy status - Latex allergy status - buttermaker continuous churn (current) use of anticoagulants - buttermaker continuous churn (current) use of anticoagulants - Multiple sclerosis - Multiple sclerosis - Obesity, unspecified - Obesity, unspecified - Other termite control service representative (current) drug therapy - Other termite control service representative (current) drug therapy - Other specified postprocedural [...] - Urinary tract infection, site not specified [email or web address]
[2024-07-06 20:56] LABS: BASOPHILS 0.7 % (0-2); EOSINOPHILS 7.1 % (0-6); HEMATOCRIT 32.5 % (35.0-50.0); HEMOGLOBIN 10.9 g/dL (12.0-18.0); LYMPHOCYTES 21.4 % (24-44); MCH 29.4 (27-36); MCHC 33.6 g/dl (30-36); MCV 87.4 fl (81-99); MONOCYTES 9.1 % (0-12); NEUTROPHILS 61.7 % (39-80); PLATELET COUNT 112 K/uL (140-440); RBC 3.73 M/ul (4.3-5.7); RDW 18.1 (10.5-15.0)
[2024-07-06 21:05] LABS: INR 1.22 (0.80-1.30); PROTIME 14.7 Sec (11.2-14.2)
[2024-07-06 21:12] LABS: BILIRUBIN, URINE NEGATIVE (negative); BLOOD/HGB, URINE SMALL (Negative); KETONE, URINE NEGATIVE (Negative); LEUK ESTERASE, URINE MODERATE (negative); NITRITE, URINE NEGATIVE (negative)
[2024-07-06] MEDS ORDERED: MICONAZOLE NITRATE 1 EA BTL TOP ONE (21:15)
[2024-07-06 21:18] LABS: ALBUMIN 3.3 g/dL (3.4-5.0); ALBUMIN/GLOBULIN RATIO 1.06 (1.1-2.4); ANION GAP 10.4 (7-21); BILIRUBIN, TOTAL 0.6 mg/dL (0.2-1.0); BUN/CREATININE RATIO 20.12 (6.0-28.6); CALCIUM 8.2 mg/dL (8.5-10.1); CREATININE, SERUM 1.54 mg/dL (0.70-1.30); POTASSIUM 4.4 mmol/L (3.5-5.1); PROTEIN, TOTAL 6.4 g/dL (6.4-8.2); TSH, 3RD GENERATION 3.781 uIU/mL (0.358-3.740)
[2024-07-06 21:19] LABS: BACTERIA, URINE 1+ /hpf (negative); CASTS, URINE NONE SEEN \\lpf; CRYSTALS, URINE NONE SEEN (0-1+); EPITHELIAL CELLS, URINE SQUAMOUS 1+ /lpf (0-1+); REFLEX CULTURE, URINE Yes (No); WHITE BLOOD CELLS, URINE 21-40 /HPF (0-5)
[2024-07-06 21:20] LABS: COLLECTION TYPE, URINE CLEAN CATCH
[2024-07-07] MEDS ORDERED: ALDACTONE25 MG PO (00:31)
[2024-07-07 05:11] VITALS: BP 113/72
--- NOTE | 2024-07-08 17:46 | EKG ---
[facility] [address] [facility] [place] [address] Signed Atrial fibrillation Low voltage QRS Abnormal ECG When compared with ECG of 26-MAY-2024 17:11, No significant change was found Confirmed by Alannah Ramírez DO ([id number]) on 07/08/2024 5:46:05 PM Electronically Signed By: ALANNAH RAMÍREZ DO 07/08/24 1746 PATIENT NAME: DEBBI CARTER Electrocardiogram DATE OF : 54 PHYSICIAN: ALANNAH RAMÍREZ DO REPORT #: [id number] REPORT IS CONFIDENTIAL AND NOT TO BE RELEASED WITHOUT AUTHORIZATION
== END 2024-07-07 05:10 | disposition home or self-care (01) ==
LOC: ED 20:06
PROVIDERS: Family Medicine
DX: I50.9 Heart failure, unspecified (principal); I48.91 Unspecified atrial fibrillation; E66.9 Obesity, unspecified; Z68.34 Body mass index [BMI] 34.0-34.9, adult; Z86.718 Personal history of other venous thrombosis and embolism; Z86.711 Personal history of pulmonary embolism; Z87.891 Personal history of nicotine dependence; Z91.040 Latex allergy status; Z88.8 Allergy status to other drugs, medicaments and biological substances; Z79.01 Long term (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; Z79.899 Other long term (current) drug therapy
CPT/HCPCS: 36415; 70450; 71045; 80053; 81001; 84443; 85025; 85610; 87077; 87088; 87186; 93005; 93010; 99285-25; A4311

== ENCOUNTER 2024-07-17 15:45 | Emergency (ER) | payer MEDICARE, OTHER ==
[~2024-07-17] VITALS: Ht 177.8 cm; Wt 107.8 kg
[~2024-07-17 15:45] MED LIST changes: +ALDACTONE25 MG PO
--- OUTSIDE RECORDS SUMMARY | 2024-07-17 15:52 | XMS ---
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 Events No recent Security Events currently on file CRITERIA MET - 6 ED Visits in 6 Months - [facility] - 2 Visits in 30 Days CARE PROVIDERS LUCIO TAO Dentist: Material Handling Technician 04/23/2019-Current PHONE: [phone] -[facility] Dentist: Material Handling Technician [facility] [place] PHONE: [phone] -[facility]- Dentist: Material Handling Technician [facility] Dental [facility] PHONE: [phone] EVENS GARCIA [facility] Current PHONE: [phone] TIERRA CONRAD Internal Medicine Current PHONE: Unknown TIFFANY Glover MD, SPENCER Child And Family Services Specialist/Tree Warden Current PHONE: [phone] Angi Nielsen Child And Family Services Specialist/Tree Warden Current PHONE: [phone] ELEANOR GUAN Nurse Practitioner: Family Current PHONE: [phone] MARGARET CORDERO Internal Medicine Current PHONE: [phone] LESLEY URBAN I. Physician Truck Farmer Current PHONE: Unknown PAGE KELLEY Nurse Practitioner Current PHONE: Unknown LEXA ONTIVEROS Internal Medicine Current PHONE: [phone] SCOUT GANT Nurse Practitioner Woody MUNIZ PHONE: [phone] SILVESTRE [facility] Current PHONE: Unknown JONELLE PUGH [facility] Current PHONE: Unknown AARON COLON Nurse Practitioner Current PHONE: [phone] Branden has no Care Guidelines for this patient. Kuldeep VISIT COUNT (12 MO.) [address] [facility] [address] [facility] TOTAL 25 NOTE: Visits indicate total known visits. ED/UCC VISIT TRACKING (12 MO.) 07/17/2024 15:46 [facility] [place] TYPE: Emergency COMPLAINT: - SHORTNESS OF BREATH 07/06/2024 20:07 [facility] [place] TYPE: Emergency COMPLAINT: - AFIB DIAGNOSES: - Allergy status to other drugs, medicaments and biological substances - Body mass index [BMI] 34.0-34.9, adult - Heart failure, unspecified - Latex allergy status - manager terminal (current) use of anticoagulants - Obesity, unspecified - Other manager terminal (current) drug therapy - Other specified soft tissue disorders - Personal history of nicotine dependence - Personal history of other venous thrombosis and embolism - Personal history of pulmonary embolism - Unspecified atrial fibrillation 05/26/2024 13:59 [facility] [place] TYPE: Emergency COMPLAINT: - WEAKNESS DIAGNOSES: - Allergy status to other drugs, medicaments and biological substances - Heart failure, unspecified - Infection and inflammatory reaction due to indwelling urethral catheter, initial encounter - Latex allergy status - [facility] (current) use of anticoagulants - Other manager terminal (current) drug therapy - Personal history [...] of anticoagulants - Obesity, unspecified - Other manager terminal (current) drug therapy - Personal history of nicotine dependence - Personal history of other venous thrombosis and embolism - Personal history of pulmonary embolism - Shortness of breath - Unspecified atrial fibrillation 04/02/2024 17:23 [facility] [place] TYPE: Emergency COMPLAINT: - POST OP PROBLEM DIAGNOSES: - Allergy status to other drugs, medicaments and biological substances - Latex allergy status - manager terminal (current) use of anticoagulants - Other longterm (current) drug therapy - Other surgical procedures [...] Latex allergy status - Localized edema - [facility] (current) use of antithrombotics/antiplatelets - Multiple sclerosis - Obesity, unspecified - Other manager terminal (current) drug therapy - Personal history of nicotine dependence - Presence of right artificial hip joint - Shortness of breath 02/11/2024 12:50 [facility] [place] TYPE: Emergency COMPLAINT: - RIGHT SIDE PAIN DIAGNOSES: - Anorexia - Heart failure, unspecified - Latex allergy status - [facility] (current) use of antithrombotics/antiplatelets - Multiple sclerosis - Nausea - Obesity, unspecified - Other manager terminal (current) drug therapy - Personal history [...] [facility] (current) use of antithrombotics/antiplatelets - Multiple sclerosis - Obesity, unspecified - Other longterm (current) drug therapy - Personal history of nicotine dependence - Presence of right artificial hip joint - Shortness of breath 01/05/2024 10:53 [facility] [place] TYPE: Emergency DIAGNOSES: - Hypoglycemia, unspecified - LOW BLOOD SUGAR 12/27/2023 09:54 [facility] [place] TYPE: Emergency COMPLAINT: - BLOOD PRESSURE PROBLEM DIAGNOSES: - Allergy status to other drugs, medicaments and biological substances - Bariatric surgery status - Body mass index [BMI] 33.0-33.9, adult - Heart failure, unspecified - Hypotension, unspecified - Latex allergy status - [facility] (current) use of anticoagulants - Obesity, unspecified - Other manager terminal (current) drug therapy - Personal history [...] Latex allergy status - Localized edema - [facility] (current) use of anticoagulants - Obesity, unspecified - Other manager terminal (current) drug therapy - Personal history [...] initial encounter - Latex allergy status - [facility] (current) use of anticoagulants - Multiple sclerosis - Obesity, unspecified - Other longterm (current) drug therapy - Personal history of [...] initial encounter - Latex allergy status - [facility] (current) use of anticoagulants - Other longterm (current) drug therapy - Personal history of other venous thrombosis and embolism - Unspecified atrial fibrillation 10/18/2023 20:26 [facility] [place] TYPE: Emergency COMPLAINT: - SOB DIAGNOSES: - Allergy status to other drugs, medicaments and biological substances - Encounter for screening for COVID-19 - Heart failure, unspecified - Latex allergy status - [facility] (current) use of antithrombotics/antiplatelets - Multiple sclerosis - Obesity, unspecified - Other longterm (current) drug therapy - Personal history of nicotine dependence - Presence of aortocoronary bypass graft - Presence of right artificial hip joint - Shortness of breath 10/14/2023 15:39 [facility] [place] TYPE: Emergency COMPLAINT: - LOW BLOOD PRESSURE DIAGNOSES: - Allergy status to other drugs, medicaments and biological substances - Heart failure, unspecified - Hypoglycemia, unspecified - Latex allergy status - manager terminal (current) use of antithrombotics/antiplatelets - Multiple sclerosis - Nonspecific low blood-pressure reading - Obesity, unspecified - Other manager terminal (current) drug therapy - Personal history of nicotine dependence - Presence of prosthetic heart valve - Presence of right artificial hip joint 10/05/2023 12:05 [facility] [place] TYPE: Emergency COMPLAINT: - URINE PROBLEM DIAGNOSES: - Allergy status to other drugs, medicaments and biological substances - Hallucinations, unspecified - Hypoglycemia, unspecified - Latex allergy status - Other manager terminal (current) drug therapy - Personal history [...] failure, unspecified - Latex allergy status - manager terminal (current) use of anticoagulants - Multiple sclerosis - Obesity, unspecified - Other longterm (current) drug therapy - Unspecified atrial fibrillation 09/13/2023 09:56 [facility] [place] TYPE: Emergency COMPLAINT: - LOW BLOOD PRESSURE DIAGNOSES: - Allergy status to other drugs, medicaments and biological substances - Fall on same level, unspecified, initial encounter - Heart failure, unspecified - Hypotension, unspecified - Latex allergy status - manager terminal (current) use of antithrombotics/antiplatelets - Nonspecific low blood-pressure reading - Obesity, unspecified - Other longterm (current) drug therapy - Personal history of [...] Multiple sclerosis - Obesity, unspecified - Other longterm (current) drug therapy - Personal history of nicotine dependence - Syncope and collapse - Unspecified atrial fibrillation 09/05/2023 16:38 [facility] [place] TYPE: Emergency COMPLAINT: - ALTERED LOC DIAGNOSES: - Allergy status to other drugs, medicaments and biological substances - Altered mental status, unspecified - Bariatric surgery status - Heart failure, unspecified - Hypoglycemia, unspecified - Hypotension, unspecified - Latex allergy status - manager terminal (current) use of anticoagulants - Multiple sclerosis - Obesity, unspecified - Other longterm (current) drug therapy - Personal history of nicotine dependence - Unspecified atrial fibrillation Plus 5 More [...] allergy status - Latex allergy status - manager terminal (current) use of anticoagulants - manager terminal (current) use of anticoagulants - Multiple sclerosis - Multiple sclerosis - Obesity, unspecified - Obesity, unspecified - Other manager terminal (current) drug therapy - Other manager terminal (current) drug therapy - Other specified [...] - Urinary tract infection, site not specified [email or web address]
[2024-07-17] MEDS ORDERED: ALBUTEROL/IPRATROPIUM 3 ML NEB INH PRN (16:00)
[2024-07-17 16:12] LABS: BASOPHILS 0.9 % (0-2); EOSINOPHILS 6.2 % (0-6); HEMATOCRIT 33.2 % (35.0-50.0); LYMPHOCYTES 13.4 % (24-44); MCH 29.2 (27-36); MCHC 33.1 g/dl (30-36); MCV 88.4 fl (81-99); MONOCYTES 9.9 % (0-12); NEUTROPHILS 69.6 % (39-80); PLATELET COUNT 144 K/uL (140-440); RBC 3.75 M/ul (4.3-5.7); RDW 18.2 (10.5-15.0)
[2024-07-17 16:34] LABS: ALBUMIN 3.4 g/dL (3.4-5.0); ALBUMIN/GLOBULIN RATIO 1.1 (1.1-2.4); ANION GAP 13.1 (7-21); BILIRUBIN, TOTAL 0.7 mg/dL (0.2-1.0); BUN/CREATININE RATIO 25.94 (6.0-28.6); CALCIUM 8.5 mg/dL (8.5-10.1); CREATININE, SERUM 2.12 mg/dL (0.70-1.30); MAGNESIUM 2.3 mg/dL (1.8-2.4); POTASSIUM 5.1 mmol/L (3.5-5.1); PROTEIN, TOTAL 6.5 g/dL (6.4-8.2)
[2024-07-17] MEDS ORDERED: FUROSEMIDE 40 MG/4 ML VIAL IV ONE (18:45)
[2024-07-17] MEDS ORDERED: LASIX40 MG PO (18:49)
[2024-07-17 19:00] VITALS: BP 121/83
--- NOTE | 2024-07-17 22:25 | EKG ---
[facility] [address] [place] [place] [address] Signed Atrial fibrillation Possible Anterior infarct , age undetermined Abnormal ECG When compared with ECG of 06-JUL-2024 20:32, No significant change was found Confirmed by Alexa Gallardo MD () on 07/17/2024 10:25:43 PM Electronically Signed By: ALEXA GALLARDO MD 07/17/242224 PATIENT NAME: DEBBI CARTER Electrocardiogram DATE OF : 54 PHYSICIAN: ALEXA GALLARDO MD REPORT #: [id number] REPORT IS CONFIDENTIAL AND NOT TO BE RELEASED WITHOUT AUTHORIZATION
== END 2024-07-17 19:48 | disposition home or self-care (01) ==
LOC: ED 15:45
PROVIDERS: Emergency Medicine
DX: R60.9 Edema, unspecified (principal); R06.02 Shortness of breath; Z87.891 Personal history of nicotine dependence; I50.9 Heart failure, unspecified; I48.91 Unspecified atrial fibrillation; Z91.040 Latex allergy status; Z88.9 Allergy status to unspecified drugs, medicaments and biological substances
CPT/HCPCS: 36415; 71045; 80053; 83735; 83880; 84484; 85025; 93005; 93010; 96374; 99285-25; J1938

== ENCOUNTER 2024-08-01 12:12 | Emergency (ER) | payer MEDICARE, OTHER ==
[~2024-08-01] VITALS: Ht 177.8 cm; Wt 107.8 kg
--- OUTSIDE RECORDS SUMMARY | 2024-08-01 12:18 | XMS ---
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 Current PHONE: [phone] TIERRA CONRAD Internal Medicine Current PHONE: Unknown TIFFANY Glover MD, SPENCER Automobile Drivers/Forest Supervisor Current PHONE: [phone] Angi Nielsen Automobile Drivers/Forest Supervisor Current PHONE: [phone] ELEANOR GUAN Nurse Practitioner: Family Current PHONE: [phone] MARGARET CORDERO Internal Medicine Current PHONE: [phone] LESLEY URBAN I. Physician Oil Well Driller Current PHONE: Unknown PAGE KELLEY Nurse Practitioner Current PHONE: Unknown LEXA ONTIVEROS Internal Medicine Current PHONE: [phone] SCOUT GANT Nurse Practitioner Current PHONE: [phone] SILVESTRE [facility] Nursing [facility] Current PHONE: Unknown [facility] Current PHONE: Unknown AARON COLON Nurse Practitioner Current PHONE: [phone] Branden has no Care Guidelines for this patient. Kuldeep VISIT COUNT (12 MO.) [address] [facility] [address] [facility] NOTE: Visits indicate total known visits. ED/UCC VISIT TRACKING (12 MO.) 08/01/2024 12:12 [facility] [place] TYPE: Emergency COMPLAINT: - FALL 07/17/2024 15:46 [facility] [place] TYPE: Emergency COMPLAINT: - SHORTNESS OF BREATH DIAGNOSES: - Allergy status to unspecified drugs, medicaments and biological substances - Edema, unspecified - Heart failure, unspecified - Latex allergy status - Personal history of nicotine dependence - Shortness of breath - Unspecified atrial fibrillation 07/06/2024 20:07 [facility] [place] TYPE: Emergency COMPLAINT: - AFIB DIAGNOSES: - Allergy status to other drugs, medicaments and biological substances - Body mass index [BMI] 34.0-34.9, adult - Heart failure, unspecified - Latex allergy status - halfway (current) use of anticoagulants - Obesity, unspecified - Other traveling missionary (current) drug therapy - Other specified soft [...] initial encounter - Latex allergy status - core blower operator (current) use of anticoagulants - Other prison (current) drug therapy - [...] failure, unspecified - Latex allergy status - core blower operator (current) use of anticoagulants - Obesity, unspecified - Other traveling missionary (current) drug therapy - Personal history of [...] - halfway (current) use of anticoagulants - Other traveling missionary (current) drug therapy - Other surgical procedures [...] Latex allergy status - Localized edema - core blower operator (current) use of antithrombotics/antiplatelets - Multiple sclerosis - Obesity, unspecified - Other traveling missionary (current) drug therapy - Personal history of nicotine dependence - Presence of right artificial hip joint - Shortness of breath 02/11/2024 12:50 [facility] [place] TYPE: Emergency COMPLAINT: - RIGHT SIDE PAIN DIAGNOSES: - Anorexia - Heart failure, unspecified - Latex allergy status - halfway (current) use of antithrombotics/antiplatelets - Multiple sclerosis - Nausea - Obesity, unspecified - Other traveling missionary (current) drug therapy - Personal history of [...] joint - Shortness of breath 01/05/2024 10:53 [facility] [place] TYPE: Emergency DIAGNOSES: - Hypoglycemia, [...] of anticoagulants - Obesity, unspecified - Other prison (current) [...] of anticoagulants - Obesity, unspecified - Other traveling missionary (current) drug therapy - Personal history of [...] initial encounter - Latex allergy status - core blower operator (current) use of anticoagulants - Multiple [...] initial encounter - Latex allergy status - core blower operator (current) use of anticoagulants - Other traveling missionary (current) drug therapy - Personal history of other venous thrombosis and embolism - Unspecified atrial fibrillation 10/18/2023 20:26 [facility] [place] TYPE: Emergency COMPLAINT: - SOB DIAGNOSES: - Allergy status to other drugs, medicaments and biological substances - Encounter for screening for COVID-19 - Heart failure, unspecified - Latex allergy status - core blower operator (current) use of antithrombotics/antiplatelets - Multiple sclerosis - Obesity, unspecified - Other traveling missionary (current) drug therapy - Personal history of nicotine dependence - Presence of aortocoronary bypass graft - Presence of right artificial hip joint - Shortness of breath 10/14/2023 15:39 [facility] [place] TYPE: Emergency COMPLAINT: - LOW BLOOD PRESSURE DIAGNOSES: - Allergy status to other drugs, medicaments and biological substances - Heart failure, unspecified - Hypoglycemia, unspecified - Latex allergy status - core blower operator (current) use of antithrombotics/antiplatelets - Multiple sclerosis - Nonspecific low blood-pressure reading - Obesity, unspecified - Other prison (current) drug therapy - Personal history of nicotine dependence - Presence of prosthetic heart valve - Presence of right artificial hip joint 10/05/2023 12:05 [facility] [place] TYPE: Emergency COMPLAINT: - URINE PROBLEM DIAGNOSES: - Allergy status to other drugs, medicaments and biological substances - Hallucinations, unspecified - Hypoglycemia, unspecified - Latex allergy status - Other traveling missionary (current) drug therapy - Personal history of [...] Multiple sclerosis - Obesity, unspecified - Other traveling missionary (current) drug therapy - Unspecified atrial fibrillation 09/13/2023 09:56 [facility] [place] TYPE: Emergency COMPLAINT: - LOW BLOOD PRESSURE DIAGNOSES: - Allergy status to other drugs, medicaments and biological substances - Fall on same level, unspecified, initial encounter - Heart failure, unspecified - Hypotension, unspecified - Latex allergy status - core blower operator (current) use of antithrombotics/antiplatelets - Nonspecific low blood-pressure reading - Obesity, unspecified - Other prison (current) [...] Hypoglycemia, unspecified - Latex allergy status - core blower operator (current) use of anticoagulants - Multiple sclerosis - Obesity, unspecified - Other traveling missionary (current) drug therapy - Personal history of nicotine dependence - Syncope and collapse - Unspecified atrial fibrillation Plus 4 More Visits INPATIENT VISIT TRACKING [...] - halfway (current) use of anticoagulants - core blower operator (current) use of anticoagulants - Multiple sclerosis - Multiple sclerosis - Obesity, unspecified - Obesity, unspecified - Other traveling missionary (current) drug therapy - Other traveling missionary (current) drug therapy - Other specified postprocedural [...] - Urinary tract infection, site not specified [email or web address]
[2024-08-01] MEDS ORDERED: XARELTO20 MG PO (13:06)
[2024-08-01 14:11] VITALS: BP 120/89
== END 2024-08-01 14:11 | disposition home or self-care (01) ==
LOC: ED 12:12
DX: S00.01XA Abrasion of scalp, initial encounter (principal); I48.91 Unspecified atrial fibrillation; W01.0XXA Fall on same level from slipping, tripping and stumbling without subsequent striking against object, initial encounter; Z79.899 Other long term (current) drug therapy; Z91.040 Latex allergy status; Z88.8 Allergy status to other drugs, medicaments and biological substances; Z87.891 Personal history of nicotine dependence
CPT/HCPCS: 36415; 70450; 72125; 72131; 99284-25; G0480

== ENCOUNTER 2024-09-08 15:31 | Emergency (ER) | payer MEDICARE, OTHER ==
[~2024-09-08] VITALS: Ht 177.8 cm; Wt 110.0 kg
--- OUTSIDE RECORDS SUMMARY | 2024-09-08 15:38 | XMS ---
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 No recent Security Events currently on file CRITERIA MET - 6 ED Visits in 6 Months CARE PROVIDERS LUCIO TAO Dentist: Green Material Value Added Assessor 04/23/2019-Current PHONE: [phone] -, [facility] Dentist: Green Material Value Added Assessor [facility] PHONE: [phone] -[facility]- Dentist: Green Material Value Added Assessor [facility] PHONE: [phone] [place] GARCIA [facility] Current PHONE: [phone] TIERRA CONRAD Internal Medicine Current PHONE: Unknown TIFFANY Glover MD, SPENCER Diversional Therapist'S Assistant/Radiology Services Manager Current PHONE: [phone] Angi Nielsen Diversional Therapist'S Assistant/Radiology Services Manager Current PHONE: [phone] ELEANOR GUAN Nurse Practitioner: Family Current PHONE: [phone] MARGARET CORDERO Internal Medicine Current PHONE: [phone] LESLEY URBAN I. Physician Lacing Cutter Current PHONE: Unknown PAGE KELLEY Nurse Practitioner Current PHONE: Unknown LEXA ONTIVEROS Internal Medicine Current PHONE: [phone] SCOUT GANT Nurse Practitioner Current PHONE: [phone] SILVESTRE [facility] Current PHONE: Unknown JONELLE PUGH [facility] Current PHONE: Unknown AARON COLON Nurse Practitioner Current PHONE: [phone] Branden has no Care Guidelines for this patient. Kuldeep VISIT COUNT (12 MO.) 20 DIONI Monet [facility] TOTAL 21 NOTE: Visits indicate total known visits. ED/UCC VISIT TRACKING (12 MO.) 09/08/2024 15:31 [facility] [place] TYPE: Emergency COMPLAINT: - SHORTNESS OF BREATH 08/01/2024 12:12 [facility] [place] TYPE: Emergency COMPLAINT: - FALL DIAGNOSES: - Abrasion of scalp, initial encounter - Allergy status to other drugs, medicaments and biological substances - Cervicalgia - Fall on same level from slipping, tripping and stumbling without subsequent striking against object, initial encounter - Latex allergy status - Other [facility] (current) drug therapy - Personal history of nicotine dependence - Unspecified atrial fibrillation 07/17/2024 15:46 [facility] [place] TYPE: Emergency [...] failure, unspecified - Latex allergy status - oil heaterman (current) use of anticoagulants - Obesity, unspecified - Other [facility] (current) drug therapy - Other specified soft [...] initial encounter - Latex allergy status - shelter (current) use of anticoagulants - Other oil heaterman (current) drug therapy - Personal history of [...] failure, unspecified - Latex allergy status - oil heaterman (current) use of anticoagulants - Obesity, unspecified - Other [facility] (current) drug therapy - Personal history of [...] - shelter (current) use of anticoagulants - Other [facility] (current) drug therapy - Other surgical procedures [...] Latex allergy status - Localized edema - oil heaterman (current) use of antithrombotics/antiplatelets - Multiple sclerosis - Obesity, unspecified - Other [facility] (current) drug therapy - Personal history of nicotine dependence - Presence of right artificial hip joint - Shortness of breath 02/11/2024 12:50 [facility] [place] TYPE: Emergency COMPLAINT: - RIGHT SIDE PAIN DIAGNOSES: - Anorexia - Heart failure, unspecified - Latex allergy status - shelter (current) use of antithrombotics/antiplatelets - Multiple sclerosis - Nausea - Obesity, unspecified - Other [facility] (current) drug therapy - Personal history of nicotine dependence - Presence of right artificial hip joint - Right lower quadrant pain - Urinary tract infection, site not specified 01/15/2024 21:41 [facility] [place] TYPE: Emergency COMPLAINT: - SOB DIAGNOSES: - Allergy status to other drugs, medicaments and biological substances - Heart failure, unspecified - Latex allergy status - oil heaterman (current) use of antithrombotics/antiplatelets - Multiple sclerosis - Obesity, unspecified - Other [facility] (current) drug therapy - Personal history of nicotine dependence - Presence of right artificial hip joint - Shortness of breath 01/05/2024 10:53 [facility] [place] TYPE: Emergency DIAGNOSES: - Hypoglycemia, unspecified - LOW BLOOD SUGAR 12/27/2023 09:54 [facility] [place] TYPE: Emergency COMPLAINT: - BLOOD PRESSURE PROBLEM DIAGNOSES: - Allergy status to other drugs, medicaments and biological substances - Bariatric surgery status - Body mass index [BMI] 33.0-33.9, adult - Heart failure, unspecified - Hypotension, unspecified - Latex allergy status - shelter (current) use of anticoagulants - Obesity, unspecified - Other oil heaterman (current) drug therapy - Personal history of [...] Latex allergy status - Localized edema - oil heaterman (current) use of anticoagulants - Obesity, unspecified - Other [facility] (current) drug therapy - Personal history of [...] initial encounter - Latex allergy status - oil heaterman (current) use of anticoagulants - Multiple sclerosis - Obesity, unspecified - Other oil heaterman (current) drug therapy - Personal history of [...] initial encounter - Latex allergy status - shelter (current) use of anticoagulants - Other [facility] (current) drug therapy - Personal history of other venous thrombosis and embolism - Unspecified atrial fibrillation 10/18/2023 20:26 [facility] [place] TYPE: Emergency COMPLAINT: - SOB DIAGNOSES: - Allergy status to other drugs, medicaments and biological substances - Encounter for screening for COVID-19 - Heart failure, unspecified - Latex allergy status - shelter (current) use of antithrombotics/antiplatelets - Multiple sclerosis - Obesity, unspecified - Other oil heaterman (current) drug therapy - Personal history of nicotine dependence - Presence of aortocoronary bypass graft - Presence of right artificial hip joint - Shortness of breath 10/14/2023 15:39 [facility] [place] TYPE: Emergency COMPLAINT: - LOW BLOOD PRESSURE DIAGNOSES: - Allergy status to other drugs, medicaments and biological substances - Heart failure, unspecified - Hypoglycemia, unspecified - Latex allergy status - oil heaterman (current) use of antithrombotics/antiplatelets - Multiple sclerosis - Nonspecific low blood-pressure reading - Obesity, unspecified - Other [facility] (current) drug therapy - Personal history of nicotine dependence - Presence of prosthetic heart valve - Presence of right artificial hip joint 10/05/2023 12:05 [facility] [place] TYPE: Emergency COMPLAINT: - URINE PROBLEM DIAGNOSES: - Allergy status to other drugs, medicaments and biological substances - Hallucinations, unspecified - Hypoglycemia, unspecified - Latex allergy status - Other oil heaterman (current) drug therapy - Personal history of [...] failure, unspecified - Latex allergy status - oil heaterman (current) use of anticoagulants - Multiple sclerosis - Obesity, unspecified - Other oil heaterman (current) drug therapy - Unspecified atrial fibrillation 09/13/2023 09:56 [facility] [place] TYPE: Emergency COMPLAINT: - LOW BLOOD PRESSURE DIAGNOSES: - Allergy status to other drugs, medicaments and biological substances - Fall on same level, unspecified, initial encounter - Heart failure, unspecified - Hypotension, unspecified - Latex allergy status - oil heaterman (current) use of antithrombotics/antiplatelets - Nonspecific low blood-pressure reading - Obesity, unspecified - Other oil heaterman (current) drug therapy - Personal history of nicotine dependence - Presence of prosthetic heart valve - Presence of right artificial hip joint - Strain of muscle, fascia and tendon at neck level, initial encounter - Strain of muscle, fascia and tendon of lower back, initial encounter Plus 1 More Visit INPATIENT VISIT TRACKING (12 MO.) No inpatient visits to display in this time frame [email or web address]
[2024-09-08] MEDS ORDERED: LIDOCAINE 2% VISCOUS 6 ML SYR TOP ONE ×2 (17:15→18:45)
[2024-09-08 17:19] LABS: BASOPHILS 0.6 % (0.2-1.2); EOSINOPHILS 4.3 % (0.8-7.0); HEMATOCRIT 33.5 % (40.1-51.0); HEMOGLOBIN 10.5 g/dL (13.7-17.5); LYMPHOCYTES 13.3 % (21.8-53.1); MCHC 31.3 g/dL (32.3-36.5); MCV 92.5 fL (79.0-92.2); MONOCYTES 10.7 % (5.3-12.2); NEUTROPHILS 70.7 % (34.0-67.9); PLATELET COUNT 142 K/uL (163-337); RBC 3.62 M/uL (4.63-6.08)
[2024-09-08 17:36] LABS: ALBUMIN 3.6 g/dL (3.4-5.0); ALBUMIN/GLOBULIN RATIO 1.09 (1.1-2.4); ANION GAP 11.7 (7-21); BILIRUBIN, TOTAL 1.2 mg/dL (0.2-1.0); BUN/CREATININE RATIO 20.8 (6.0-28.6); CREATININE, SERUM 1.49 mg/dL (0.70-1.30); MAGNESIUM 2.1 mg/dL (1.8-2.4); POTASSIUM 4.7 mmol/L (3.5-5.1); PROTEIN, TOTAL 6.9 g/dL (6.4-8.2)
[2024-09-08 17:37] LABS: BILIRUBIN, URINE NEGATIVE (negative); BLOOD/HGB, URINE TRACE-I (Negative); KETONE, URINE NEGATIVE (Negative); LEUK ESTERASE, URINE MODERATE (negative); NITRITE, URINE NEGATIVE (negative); PH, URINE 7.5 (5-7)
[2024-09-08 17:43] LABS: BACTERIA, URINE 1+ /hpf (negative); CASTS, URINE NONE SEEN \\lpf; COLLECTION TYPE, URINE CLEAN CATCH; CRYSTALS, URINE NONE SEEN (0-1+); REFLEX CULTURE, URINE No (No)
[2024-09-08] MEDS ORDERED: FUROSEMIDE 40 MG/4 ML VIAL IV ONE (18:30)
[2024-09-08] MEDS ORDERED: CIPRO500 MG PO (18:39)
[2024-09-08] MEDS ORDERED: CIPROFLOXACIN 500 MG TAB PO ONE (18:45)
[2024-09-08 19:30] VITALS: BP 141/99
--- NOTE | 2024-09-09 13:04 | EKG ---
[facility] [address] [facility] [place] [address] Signed Atrial fibrillation Low voltage QRS Abnormal ECG When compared with ECG of 17-JUL-2024 16:01, No significant change was found Confirmed by Alannah Ramírez DO ([id number]) on 09/09/2024 1:04:02 PM Electronically Signed By: ALANNAH RAMÍREZ DO 09/09/24 1304 PATIENT NAME: DEBBI CARTER Electrocardiogram DATE OF : 54 PHYSICIAN: ALANNAH RAMÍREZ DO REPORT #: [id number] REPORT IS CONFIDENTIAL AND NOT TO BE RELEASED WITHOUT AUTHORIZATION
== END 2024-09-08 19:30 | disposition home or self-care (01) ==
LOC: ED 15:31
PROVIDERS: Emergency Medicine
DX: N39.0 Urinary tract infection, site not specified (principal); I50.9 Heart failure, unspecified; I48.91 Unspecified atrial fibrillation; Z87.891 Personal history of nicotine dependence; Z91.040 Latex allergy status; Z79.899 Other long term (current) drug therapy
CPT/HCPCS: 36415; 51702; 71045; 80053; 81001; 83735; 83880; 84484; 85025; 87077; 87088; 87186; 93005; 93010; 99285-25; A4311; J1938

== ENCOUNTER 2024-12-02 17:52 | Emergency (ER) | payer MEDICARE, OTHER ==
[~2024-12-02] VITALS: Ht 177.8 cm; Wt 107.0 kg
--- OUTSIDE RECORDS SUMMARY | 2024-12-02 17:59 | XMS ---
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 No recent Security Events currently on file CRITERIA MET - 6 ED Visits in 6 Months - [facility] - 2 Visits in 30 Days CARE PROVIDERS LUCIO TAO Dentist: Poultry Scientist 04/23/2019-Current PHONE: [phone] -[facility] Dentist: Poultry Scientist [facility] PHONE: [phone] -[facility]- Dentist: Poultry Scientist [facility] Dental [facility] PHONE: [phone] [place] GARCIA [facility] Current PHONE: [phone] TIERRA CONRAD Internal Medicine Current PHONE: Unknown TIFFANY Glover MD, SPENCER Technical Producer/Manufacturing Engineering Technologist Current PHONE: [phone] Angi Nielsen Technical Producer/Manufacturing Engineering Technologist Current PHONE: [phone] ELEANOR GUAN Nurse Practitioner: Family Current PHONE: [phone] MARGARET CORDERO Internal Medicine Current PHONE: [phone] LESLEY URBAN I. Physician Actuarial Internship Current PHONE: Unknown PAGE KELLEY Nurse Practitioner Current PHONE: Unknown LEXA ONTIVEROS Internal Medicine Current PHONE: [phone] SCOUT GANT Nurse Practitioner Current PHONE: [phone] SILVESTRE [facility] Nursing [facility] Current PHONE: Unknown JONELLE PUGH [facility] Current PHONE: Unknown AARON COLON Nurse Practitioner Current PHONE: [phone] Branden has no Care Guidelines for this patient. Kuldeep VISIT COUNT (12 MO.) 15 DIONI Monet [facility] TOTAL 16 NOTE: Visits indicate total known visits. ED/UCC VISIT TRACKING (12 MO.) 12/02/2024 17:53 [facility] [place] TYPE: Emergency COMPLAINT: - BACK PAIN 11/03/2024 13:08 [facility] [place] TYPE: Emergency COMPLAINT: - CHEST PAIN DIAGNOSES: - Allergy status to other drugs, medicaments and biological substances - Chest pain, unspecified - Essential (primary) hypertension - Latex allergy status - Other intermodal dispatcher (current) drug therapy - Personal history of nicotine dependence - Unspecified atrial fibrillation 09/08/2024 15:31 [facility] [place] TYPE: Emergency COMPLAINT: - SHORTNESS OF BREATH DIAGNOSES: - Heart failure, unspecified - Latex allergy status - [facility] drug therapy - Personal history of nicotine dependence - Shortness of breath - Unspecified atrial fibrillation - Urinary tract infection, site not specified 08/01/2024 12:12 [facility] [place] TYPE: Emergency COMPLAINT: - FALL DIAGNOSES: - Abrasion of scalp, initial encounter - Allergy status to other drugs, medicaments and biological substances - Cervicalgia - Fall on same level from slipping, tripping and stumbling without subsequent striking against object, initial encounter - Latex allergy status - Other intermodal dispatcher (current) drug therapy - Personal history of [...] unspecified - Latex allergy status - superintendent terminal (current) use of anticoagulants - Obesity, unspecified - Other [facility] ([facility] drug therapy - Other specified soft [...] initial encounter - Latex allergy status - superintendent terminal (current) use of anticoagulants - [facility] ([facility] drug therapy - Personal history of [...] failure, unspecified - Latex allergy status - assisted (current) use of anticoagulants - Obesity, unspecified - Other [facility] ([facility] drug therapy - Personal history of nicotine dependence - Personal history of other venous thrombosis and embolism - Personal history of pulmonary embolism - Shortness of breath - Unspecified atrial fibrillation 04/02/2024 17:23 [facility] [place] TYPE: Emergency COMPLAINT: - POST OP PROBLEM DIAGNOSES: - Allergy status to other drugs, medicaments and biological substances - Latex allergy status - superintendent terminal (current) use of anticoagulants - Other [facility] (current[facility] drug therapy - Other surgical procedures [...] Latex allergy status - Localized edema - superintendent terminal (current) use of antithrombotics/antiplatelets - Multiple sclerosis - Obesity, unspecified - Other [facility] (current[facility] drug therapy - Personal history of nicotine dependence - Presence of right artificial hip joint - Shortness of breath 02/11/2024 12:50 [facility] [place] TYPE: Emergency COMPLAINT: - RIGHT SIDE PAIN DIAGNOSES: - Anorexia - Heart failure, unspecified - Latex allergy status - superintendent terminal (current) use of antithrombotics/antiplatelets - Multiple sclerosis - Nausea - Obesity, unspecified - Other [facility] (current[facility] drug therapy - Personal history of nicotine dependence - Presence of right artificial hip joint - Right lower quadrant pain - Urinary tract infection, site not specified 01/15/2024 21:41 [facility] [place] TYPE: Emergency COMPLAINT: - SOB DIAGNOSES: - Allergy status to other drugs, medicaments and biological substances - Heart failure, unspecified - Latex allergy status - assisted (current) use of antithrombotics/antiplatelets - Multiple sclerosis - Obesity, unspecified - Other intermodal dispatcher (current) drug therapy - Personal history of nicotine dependence - Presence of right artificial hip joint - Shortness of breath 01/05/2024 10:53 [facility] [place] TYPE: Emergency DIAGNOSES: - Hypoglycemia, unspecified - LOW BLOOD SUGAR 12/27/2023 09:54 [facility] [place] TYPE: Emergency COMPLAINT: - BLOOD PRESSURE PROBLEM DIAGNOSES: - Allergy status to other drugs, medicaments and biological substances - Bariatric surgery status - Body mass index [BMI] 33.0-33.9, adult - Heart failure, unspecified - Hypotension, unspecified - Latex allergy status - assisted (current) use of anticoagulants - Obesity, unspecified - Other intermodal dispatcher (current) drug therapy - Personal history of [...] Latex allergy status - Localized edema - assisted (current) use of anticoagulants - Obesity, unspecified - Other intermodal dispatcher (current) drug therapy - Personal history of [...] initial encounter - Latex allergy status - superintendent terminal (current) use of anticoagulants - Multiple sclerosis - Obesity, unspecified - Other intermodal dispatcher (current) drug therapy - Personal history of nicotine dependence - Unspecified atrial fibrillation INPATIENT VISIT TRACKING (12 MO.) No inpatient visits to display in this time frame [email or web address]
[2024-12-02] MEDS ORDERED: LIDOCAINE 2% VISCOUS 6 ML SYR TOP ONE (18:45)
[2024-12-02 18:57] LABS: BASOPHILS 0.7 % (0.2-1.2); EOSINOPHILS 3.8 % (0.8-7.0); LYMPHOCYTES 11.3 % (21.8-53.1); MCH 27.7 PG (25.7-32.2); MCHC 31.1 g/dL (32.3-36.5); MCV 89.1 fL (79.0-92.2); MONOCYTES 10.8 % (5.3-12.2); NEUTROPHILS 73.1 % (34.0-67.9); RBC 3.68 M/uL (4.63-6.08)
[2024-12-02 19:11] LABS: ALT (SGPT) 27.0 U/L (14-59); AST (SGOT) 17.0 U/L (15-37); GLOMERULAR FILTRATION RATE,EST 50.0 mL/min (>60); PROTEIN, TOTAL 6.7 g/dL (6.4-8.2); UREA NITROGEN 32.0 mg/dL (7-18)
[2024-12-02 19:14] LABS: BLOOD/HGB, URINE LARGE (Negative); KETONE, URINE NEGATIVE (Negative); LEUK ESTERASE, URINE MODERATE (negative); NITRITE, URINE NEGATIVE (negative)
[2024-12-02 19:27] LABS: BACTERIA, URINE NONE SEEN /hpf (negative); CASTS, URINE NONE SEEN \\lpf; CRYSTALS, URINE NONE SEEN (0-1+); EPITHELIAL CELLS, URINE SQUAMOUS 2+ /lpf (0-1+)
[2024-12-02 19:28] LABS: REFLEX CULTURE, URINE No (No)
[2024-12-02] MEDS ORDERED: FUROSEMIDE40 MG PO (21:18)
[2024-12-02] MEDS ORDERED: LIDODERM1 EACH TOP (21:23)
[2024-12-02 21:41] VITALS: BP 134/84
== END 2024-12-02 21:53 | disposition home or self-care (01) ==
LOC: ED 17:52
PROVIDERS: Emergency Medicine; Family Medicine
DX: M54.50 Low back pain, unspecified (principal); I50.9 Heart failure, unspecified; F03.90 Unspecified dementia, unspecified severity, without behavioral disturbance, psychotic disturbance, mood disturbance, and anxiety; G35 Multiple sclerosis; N18.30 Chronic kidney disease, stage 3 unspecified; I48.91 Unspecified atrial fibrillation; E66.9 Obesity, unspecified; Z68.33 Body mass index [BMI] 33.0-33.9, adult; Z87.891 Personal history of nicotine dependence; Z79.01 Long term (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; Z79.899 Other long term (current) drug therapy; Z88.8 Allergy status to other drugs, medicaments and biological substances; Z91.040 Latex allergy status
CPT/HCPCS: 36415; 51702; 71045; 80053; 81001; 82803; 83690; 83880; 85025; 99283-25

== ENCOUNTER 2025-01-17 20:25 | Emergency (ER) | payer MEDICARE, OTHER ==
[~2025-01-17] VITALS: Ht 177.8 cm; Wt 112.5 kg
[~2025-01-17 20:25] MED LIST changes: +LIDODERM1 EACH TOP
[2025-01-17 20:46] LABS: BASOPHILS 0.9 % (0.2-1.2); EOSINOPHILS 7.8 % (0.8-7.0); LYMPHOCYTES 18.8 % (21.8-53.1); MCH 28.0 PG (25.7-32.2); MCHC 31.4 g/dL (32.3-36.5); MCV 89.2 fL (79.0-92.2); MONOCYTES 12.7 % (5.3-12.2); NEUTROPHILS 59.2 % (34.0-67.9); RBC 3.53 M/uL (4.63-6.08)
[2025-01-17] MEDS ORDERED: KLOR-CON 1010 MEQ PO (20:54)
[2025-01-17 21:13] LABS: ALT (SGPT) 15.0 U/L (14-59); AST (SGOT) 20.0 U/L (15-37); GLOMERULAR FILTRATION RATE,EST 36.0 mL/min (>60); PROTEIN, TOTAL 6.6 g/dL (6.4-8.2); UREA NITROGEN 58.0 mg/dL (7-18)
[2025-01-17] MEDS ORDERED: FUROSEMIDE 40 MG/4 ML VIAL IV ONE (21:15)
[2025-01-17] MEDS ORDERED: LIDOCAINE 2% VISCOUS 6 ML SYR TOP ONE (21:15)
[2025-01-17 21:41] LABS: BLOOD/HGB, URINE TRACE-I (Negative); KETONE, URINE NEGATIVE (Negative); LEUK ESTERASE, URINE SMALL (negative); NITRITE, URINE NEGATIVE (negative)
[2025-01-17 21:54] LABS: BACTERIA, URINE 1+ /hpf (negative); CASTS, URINE NONE SEEN \\lpf; CRYSTALS, URINE NONE SEEN (0-1+); EPITHELIAL CELLS, URINE SQUAMOUS 1+ /lpf (0-1+); REFLEX CULTURE, URINE Yes (No)
[2025-01-17] MEDS ORDERED: LASIX20 MG PO (22:23)
[2025-01-17] MEDS ORDERED: CIPRO500 MG PO (22:23)
[2025-01-17] MEDS ORDERED: CARVEDILOL3.125 MG PO (22:24)
[2025-01-17 22:36] VITALS: BP 117/101
--- NOTE | 2025-01-18 19:41 | EKG ---
[facility] [address] [facility] [place] [address] Signed Atrial fibrillation Low voltage QRS Cannot rule out Anterior infarct , age undetermined Abnormal ECG When compared with ECG of 03-NOV-2024 13:15, No significant change was found Confirmed by Alannah Ramírez DO ([id number]) on 01/18/2025 7:41:12 PM Electronically Signed By: ALANNAH RAMÍREZ DO 01/18/251940 PATIENT NAME: DEBBI CARTER Electrocardiogram DATE OF : 54 PHYSICIAN: ALANNAH RAMÍREZ DO REPORT #: [id number] REPORT IS CONFIDENTIAL AND NOT TO BE RELEASED WITHOUT AUTHORIZATION
== END 2025-01-17 22:37 | disposition home or self-care (01) ==
LOC: ED 20:25
PROVIDERS: Emergency Medicine
DX: I50.9 Heart failure, unspecified (principal); N39.0 Urinary tract infection, site not specified; I48.91 Unspecified atrial fibrillation; Z87.891 Personal history of nicotine dependence; Z91.040 Latex allergy status; Z88.8 Allergy status to other drugs, medicaments and biological substances; Z79.899 Other long term (current) drug therapy
CPT/HCPCS: 36415; 51702; 71045; 80053; 81001; 83735; 83880; 84484; 85025; 87077; 87088; 87186; 93005; 93010; 96374; 99285-25; A4311; J1938